=== PATIENT | female | born 1960 | race African-American/Black ===

== ENCOUNTER 2020-01-25 12:34 | Inpatient (IN) | payer OTHER ==
--- NOTE | 2020-01-25 13:11 | BHS.RME ---
Substance Use & Tx History - Substance Use History Alcohol Substance amount: wine coolers on weekends Frequency of use: Daily Substance route: Oral Date of Last Use: 01/21/20 (started age 20) Cocaine- Powder Substance amount: $20 Frequency of use: Daily Substance route: Inhalation (ex: sniffing or snorting) Date of Last Use: 01/21/20 (started age 28) Marijuana/Hashish Substance amount: 1 blunts Frequency of use: Less than 3 times per week Substance route: Smoking Date of Last Use: 11/26/19 (started age 13) Nicotine Substance amount: former smoked stopped age 52 Physical/Psych/Mental Status - Behavior General Behavior: Increased activity (restlessness, agitation) Eye Contact: Normal - Cooperativeness Cooperativeness: Cooperative - Thinking Thought Processes: Tight, Logical, Goal Directed - Physical Health Problems Is patient presently having any pain?: No Does patient presently have any injuries (include location): No Does patient currently have a fever: No Is patient : No CIWA Nausea/Vomitin-Mild Nausea/No Vomiting Muscle Tremors: 3 Anxiety: 3 Agitation: 4-Moderately Restless Paroxysmal Sweats: No Perspiration Orientation: 3-Disoriented Date>2 days Tacttile Disturbances: 1-Very Mild Itch/Numbness Auditory Disturbances: 2-Mild Harshness/Frighten Visual Disturbances: 1-Very Mild Sensitivity Headache: 0-None Present CIWA-Ar Total Score: 18
--- OUTSIDE RECORDS SUMMARY | 2020-01-25 13:18 | XMS ---
:1960 Author Organization [facility] Care Team Providers Name Role Phone Abe Barrett DO Unavailable Unavailable Tomasz, Neelkamal Unavailable Unavailable Jose F Arroyo MD Unavailable Unavailable LEONEL ALEMAN PMHNP Unavailable Unavailable MD Jimenez Unavailable Unavailable ALEK GIMENEZ Unavailable Unavailable [id number] Unavailable Unavailable MD Victor Hugo Unavailable Unavailable Jesus Jacob MD Unavailable Jesus Jacob MD Unavailable Jesus Jacob MD Unavailable MD Jesus Unavailable Unavailable MD Anni Unavailable Unavailable HHCCC Unavailable Unavailable MD Ana Unavailable Unavailable MD Bruce Unavailable Unavailable MD Robyn Unavailable Unavailable DO Cherry Unavailable Unavailable Mickey RICH Unavailable Unavailable MD Saleem Unavailable Unavailable EATON Unavailable Unavailable PAMM Unavailable Unavailable MD Mitch Unavailable Unavailable ZEMMETT@, Unavailable Unavailable MD Nataly Unavailable Unavailable MD Stacey Unavailable Unavailable MD Efrain Unavailable Unavailable MD ERROL Unavailable Unavailable Юлия AGUILAR Unavailable Unavailable MD Frederick Unavailable Unavailable Lynn DO Unavailable Unavailable MD KATHY Unavailable Unavailable MD DISHA Unavailable Unavailable DO Alyssia Unavailable Unavailable Antonino Moura MD Unavailable Unavailable Mickey MONTES Unavailable Unavailable Calderon, DO Unavailable Unavailable MD Victoriano Unavailable Unavailable MD YOCASTA Unavailable Unavailable Leah Mckeon MD Unavailable Unavailable MD Rich Unavailable Unavailable MD Esha Unavailable Unavailable Vivian, DO Unavailable Unavailable CAROL BEBE MORENO Unavailable Unavailable MD FLEX Unavailable Unavailable Luis, C Unavailable Unavailable Luis, C Unavailable Unavailable Story, C Unavailable Unavailable Story, C Unavailable Unavailable MD Chace Unavailable Unavailable SUGAR [place] Unavailable Unavailable KEZIA Unavailable Unavailable MD Renata Unavailable Unavailable MD Stella Unavailable Unavailable Abbi Russ Unavailable Unavailable Skyler Lara MD Unavailable Unavailable MD RACHEL Unavailable Unavailable CAROL Unavailable Unavailable ZUNASSIGNED Unavailable Unavailable Re-disclosure Warning The records that you are about to access may contain information from federally- assisted alcohol or drug abuse programs. If such information is present, then the following federally mandated warning applies: This information has been disclosed to you from records protected by federal confidentiality rules (42 CFR part 2). The federal rules prohibit you from making any further disclosure of this information unless further disclosure is expressly permitted by the written consent of the person to whom it pertains or as otherwise permitted by 42 CFR part 2. A general authorization for the release of medical or other information is NOT sufficient for this purpose. The Federal rules restrict any use of the information to criminally investigate or prosecute any alcohol or drug abuse patient.The records that you are about to access may contain highly sensitive health information, the redisclosure of which is protected by Article 27-F of the [facility] Public Health law. If you continue you may haveaccess to information: Regarding HIV / AIDS; Provided by facilities licensed or operated by the [facility] Office of Mental Health; or Provided by the [facility] Office for People With Developmental Disabilities. If such information is present, then the following [facility] mandated warning applies: This information has been disclosed to you from confidential records which are protected by state law. State law prohibits you from making any further disclosure of this information without the specific written consent of the person to whom it pertains, or as otherwise permitted by law. Any unauthorized further disclosure in violation of state law may result in a fine or longterm sentence or both. A general authorization for the release of medical or other information is NOT sufficient authorization for further disclosure. Allergies and Adverse Reactions Type Description Substance Reaction Status Data Source(s ) Drug allergy No Known Allergies No Known NO KNOWN ALLERG Michael Lewis Allergies [place] Hospital Encounters Encounter Providers Location Date Indications Data Source(s ) Outpatient Attender: 01/20/2020 [facility] ZUNASSIGNEDAdmitter: 02:47:00 PM [facility] ZUNASSIGNEDReferrer: EDT [id number] [email or web address]@, Outpatient Admitter: [id number] 01/20/2020 [facility] Kasandra [facility] [email or web address]@,Referre 12:00:00 AM [facility] r: [id number] EDT [email or web address]@, Inpatient Attender: Annalee 01/18/2020 DKA Michael Mas MDAttender: 10:14:00 AM Hospit al Anat Mckeon EDT - MDAttender: Tay 01/21/2020 Light MDAdmitter: 04:18:00 PM Anat Mckeon EDT DKAbril Patient discharged. Outpatient Attender: JAKE [facility] 01/17/2020 04:08:20 PM I ([facility] EDT [facility]) Patient admitted. Outpatient Attender: LEONEL NDIAYE 01/17/2020 [facility]12[facility] YOUNG [facility]T Hospital Admission cancelled. Disregard status an d admitted date. 01/12/2020 02:44:00 PM EDT [facility] Patient admitted. Emergency Attender: Wu 01/10/2020 12:34:00 HIGH BLO OD SUGAR Michael Douglas MD AM EDT - 01/10/2020 AM.[facility] 05:52:00 AM EDT HIGH BLOOD SUGAR AM.EMPRESS Patient discharged. Emergency Attender: Bozena 01/08/2020 07:07:00 HIGH SUGAR Michael Gay MD AM EDT - 01/08/2020 ARR-AUTO [facility] 12:08:00 PM EDT HIGH SUGAR ARR-AUTO Patient discharged. Emergency Attender: John 2020 HYPERGLYCEMIA AU TO Michael Hutton MD 03:05:00 PM EDT - Hospita l 2020 08:16:00 PM EDT HYPERGLYCEMIA AUTO Patient discharged. Outpatient Attender: BEBE NDIAYE 12/24/2019 10:40:00 AM [facility] REIDAdmitter: ALYSE EDT - 01/14/2020 [facility] CANEVA 03:29:00 PM EDT Patient discharged. Outpatient Attender: BEBEBLACK Parker 12/24/2019 07:01:00 AM [facility] MORENOAdmitter: EDT [facility] BEBE MORENOReferrer: BEBE MORENO Outpatient Attender: CHERYLEElenaLADONNA SENTHIL 12/21/2019 12:17:00 PM [facility] CANEVAAdmitter: CAMILA EDT - 12/21/2019 [facility] DISHA 05:58:00 PM EDT Patient discharged. Emergency Attender: Sharonda Mack 12/21/2019 05:35:00 CAN T WALK [place] MDAttender: Juve Cade AM EDT - 12/21/2019 [facility] DOConsultant: Corrine 11:40:00 AM EDT Rich GARCIA CANT WALK WALK Patient discharged. Inpatient Attender: Tanika Jacob 12/15/2019 05:42:00 PM [facility] MDAttender: Elyssa Ibarra EDT - 12/20/2019 [facility] MDAttender: Дмитрий 12:05:00 PM EDT Tiagaurav PAAttender: Juve Cade DOAdmitter: Дмитрий Russ PAConsultant: Corrine Villanueva MD DKA Patient discharged. Inpatient Attender: Amy 11/30/2019 HEPATIC [place] Ana 01:40:00 PM EDT - ENCEPHALOPATHY Hos pital MDAttender: 12/03/2019 Sharonda Mack 02:15:00 PM EDT MDAdmitter: Amy Perez MD HEPATIC ENCEPHALOPATHY Patient discharged. Inpatient Attender: Param 11/20/2019 09:17:00 DKA [place] RandhawaAttender: Elyssa Ibarra PM EDT - 11/29/2019 [facility] MDAttender: Kamlesh Yanez 10:47:00 AM EDT MDAttender: Jan Balbuena MDAttender: Abe Barrett DOAdmitter: Jan Balbuena MDConsultant: Corrine Villanueva MD DKA Patient discharged. Outpatient Attender: CNR9 HHCCC 11/13/2019 11:35:57 AM [facility] ([facility]T [facility]) Patient admitted. Outpatient Attender: [id number] 11/02/2019 [facility] JEFF, 09:23:00 AM EDT [facility] RAdmitter: [id number] [facility] [place] Юлия AGUILAR Emergency Attender: Wilfrido Zuniga 10/26/2019 HEADACHE W mera Lewis MD 02:23:00 AM EDT [facility] - 10/26/2019 01:07:00 PM EDT HEADACHE EMPRESS Patient discharged. Outpatient Attender: CNR9 CCC 10/12/2019 01:04:05 PM [facility] ([facility]T [facility]) Patient admitted. Outpatient Attender: CNR9 [facility] 07/02/2019 06:26:05 [facility]. [facility]/17[facility] 06:18:00 HYPERGLYCEMI A [place] MATHEWAttender: Asif EST - 06/21/2019 [facility] Jesus MDAttender: 01:34:00 PM EDT Jose F Arroyo MDAdmitter: Asif Lee MD HYPERGLYCEMIA Patient discharged. Outpatient ST 06/01/2019 04:09:00 PM EST - [address] [place] [address] 03:46:00 PM EST Patient discharged. Attender: 05/28/2019 [place] [id number] 04:09:00 PM [facility] [id number] Inpatient Attender: Chloe Gaona 05/25/2019 [facility] MDAttender: Nura Pastrana 06:14:00 PM EST - Hospital MDAttender: Renae Carey 05/28/2019 DOAdmitter: Nura Pastrana 12:48:00 PM EST MDConsultant: Corrine Villanueva MD AMS Patient discharged. Inpatient Attender: ESTRELLITA DICKERSONV-3N 05/21/2019 09:17:00 PM [facility] FAEZAdmitter: ROBBI [facility] - 05/25/2019 [facility] 11:49:00 PM EST Patient discharged. Attender: 05/21/2019 [facility] [id number] 09:17:00 PM [facility] 05/21/2019 [facility] 06:32:00 PM EST - Hospita l 05/21/2019 09:23:00 PM EST Patient discharged. Attender: 05/21/2019 [place] [id number] 06:32:00 PM [place] [id number] [facility] Inpatient Attender: Bhargavi Barrera 05/19/2019 [facility] MDAttender: Tay [place] 02:27:00 PM EST Hospital DOAdmitter: Asif Lee - 05/21/2019 MDConsultant: Corrine Villanueva MD 06:06:00 PM EST SYNCOPE Patient discharged. Inpatient Attender: ESTRELLITA NDIAYE-3N 05/18/2019 01:07:00 PM [facility] FAEZAdmitter: [facility] - 05/19/2019 Hospital Luis 11:12:00 PM EST Patient discharged. Attender: 05/18/2019 [place] [id number] 01:07:00 PM [facility]_6766 Outpatient [facility] 05/18/2019 [facility] 12:56:00 PM EST - Hospita l 05/18/2019 04:24:00 PM EST Patient discharged. Attender: 05/18/2019 [place] [id number] 12:56:[address] Emergency Attender: Jose F Arroyo MDAttender: 05/17/2019 [facility] Wilfrido Zuniga MDAttender: Aydin 07:04:00 PM [facility] Hospital Coddett MDConsultant: Jose F Arroyo - 0 AM.EMPR MDConsultant: Corrine Villanueva MD 12:57:00 PM EST SI AM.EMPR Patient discharged. Outpatient Attender: LILIA [facility] 05/17/2019 04:49:00 S judie [facility]ek WASSERMANAdmitter: ABBE PM EST - 05/18/2019 Hospital EATON 02:29:00 PM EST Patient discharged. Attender: 05/17/2019 [facility] [id number] 04:49:00 PM [facility]_6766 Outpatient Attender: GIL ST 05/10/2019 [facility] TRESdmitter: ALETHA MAST 02:07:00 PM EST - Hospital 05/10/2019 07:38:00 PM EST Patient discharged. Attender: 05/10/2019 [facility] [id number] 02:07:00 PM [place] [id number] [facility] Emergency Attender: Black Bailey DO 04/29/2019 LOW B LOOD Michael Lewis 11:42:00 AM EST [facility] Hospital - 04/29/2019 AUTO 04:20:00 PM EST LOW BLOOD SUGAR AUTO Patient discharged. Outpatient Attender: JA[facility] 04/23/2019 03:05:35 PM [facility] ([facility]) Patient admitted. Emergency Attender: Francy Ingram 04/16/2019 10:32:00 HEADACH Savannah Lewis MD AM EST - 04/16/2019 [facility]R-WI [facility] 02:20:00 PM EST HEADACHE ARR-WI Patient discharged. Emergency Attender: 04/06/2019 HX OF DIABETES/WEAKNESS W mera Mack MD 09:27:00 PM EST - (AUTO) H ospital 04/07/2019 02:43:00 AM EST HX OF DIABETES/WEAKNESS (AUTO) Patient discharged. Emergency Attender: Nika 03/09/2019 03:30:00 ABNORMAL LAB S Michael [place] PM EST - 03/09/2019 ([place]) [facility] 09:45:00 PM EST ABNORMAL LABS ([place]) Patient discharged. Inpatient Attender: ISAAK DICKERSONV-2S 03/03/2019 07:17:00 PM [facility] SOTOAdmitter: ALYSE EST - 03/08/2019 [facility] BECKI 11:13:00 PM EST Patient discharged. Attender: 03/03/2019 [place] [id number] 07:17:00 PM [facility]_6766 Outpatient STV 03/03/2019 [facility] 07:02:00 PM EST - Hospita 03/03/2019 12:59:00 PM EST Patient discharged. Attender: 03/03/2019 [place] [id number] 07:02:00 PM [place] [address] Inpatient Attender: Chloe Lernercara 03/01/2019 AMS [place] MDAttender: Mary Lara MDAttender: 07:07:[address] [facility] Gunnar Carlson MDAdmitter: Mary Lara 03/03/2019 MDConsultant: Corrine Villanueva MD 06:40:00 PM EST [facility] Patient discharged. Inpatient Attender: ISAAK DICKERSON-2S 02/15/2019 07:13:00 PM [facility] SOTOAdmitter: HOLLY MALONEYB [facility] 03/01/2019 [facility] 08:31:00 AM EST Patient discharged. Attender: 02/15/2019 [place] [id number] 07:13:00 PM [place] [address] Outpatient [facility] 02/15/2019 [facility] 06:56:00 PM EST - Hospita 02/15/2019 09:26:00 PM EST Patient discharged. Attender: 02/15/2019 [facility] [id number] 06:56:[address] Emergency Attender: Mariano Monge 02/14/2019 DIABETIC/ [place] MDAttender: Sharonda Mack 10:27:00 AM EST [facility] Hospital MDAttender: Jose F Royal 02/15/2019 MEDS - W I MDConsultant: Corrine Villanueva MD 05:03:00 PM EST DIABETIC/NEEDS MEDS - [place] Patient discharged. Outpatient 01/18/2019 12:27:21 PM EDT [facility] ([facility]) Patient admitted. Emergency Attender: Black 08/22/2018 DIABETES Michael Bailey 05:08:00 PM EDT - (AM.EMPRESS) [facility] DOAttender: Nehemias 08/22/2018 [place] CHRISTIE 09:16:00 PM EDT DIABETES (AM.EMPRESS) P 10/08/2017 02:42:00 PM EDT FALL/LEG PAIN ARR- [facility] FALL/LEG PAIN ARR- P 04/25/2009 01:14:00 PM EST RT SIDE C OTTON STUCK IN EAR [facility] ARR-WALK RT SIDE COTTON STUCK IN EAR ARR-W ALK Functional Status Medications Medication Brand Start Product Dose Route Administrative Pharmacy St atus Indications Reaction Description Data Name Date Form Instructions Instructions Source(s) Lactulose Lactul 01/20/ SOLUTION 10 g ORAL active [facility] 667 MG/ML ose 2019 [facility] Oral 01:56: Hospital Solution 00 PM EDT 3 ML Insuli 01/20/ INJECTIO 9 SUBCUT active [facility]i [facility] Insulin n 2020 N ANEOUS [facility] Lispro 100 Human 01:56: Hospit al UNT/ML Pen Lispro 00 PM Injector EDT [Humalog] Insulin Human Lispro 3 ML Insuli 01/20/ PRE-FILL 25 SUBCUT active [facility]i te Insulin n 2019 ED PEN ANEOUS [facility] Glargine Glargi 01:56: SYRINGE Hosp ital 100 UNT/ML ne 00 PM Pen EDT Injector [Lantus] aripiprazol ARIPip ORAL complet ARIPip razole [facility] 5 MG Oral razole 2019 Table ed - 5 MG ORA L [facility] Tablet - 5 MG 12:00: t Tablet Hospita l ORAL 00 AM Tablet EDT Mirtazapine Mirtaz 0.5 ORAL complet Mirtaz apine [facility] 15 MG Oral apine 2019 Table ed - 15 MG ORAL [facility] Tablet - 15 12:00: t Tablet Hospital MG 00 AM ORAL EDT Tablet aripiprazol ARIPip 1 ORAL complet ARIPip razole [facility] 5 MG Oral razole 2019 Table ed - 5 MG ORA L [facility] Tablet - 5 MG 12:00: t Tablet Hospita l ORAL 00 AM Tablet EDT Mirtazapine Mirtaz 12/26/ 0.5 ORAL complet Mirtaz apine Saint 15 MG Oral apine 2019 Table ed - 15 MG ORAL [facility] Tablet - 15 12:00: t Tablet Hospital MG 00 AM ORAL EDT Tablet 3 ML Insuli 12/19/ INJECTIO 9 SUBCUT active Whi te Insulin n 2020 N ANEOUS [facility] Lispro 100 Human 09:46: Hospit al UNT/ML Pen Lispro 00 AM Injector EDT [Humalog] Insulin Human Lispro 3 ML Insuli 12/19/ PRE-FILL 25 SUBCUT active Whi te Insulin n 2020 ED PEN ANEOUS [facility] Glargine Glargi 09:46: SYRINGE Hosp ital 100 UNT/ML ne 00 AM Pen EDT Injector [Lantus] 3 ML Insuli 12/19/ INJECTIO 9 SUBCUT complet Wh ite Insulin n 2020 N ANEOUS ed [facility] Lispro 100 Human 09:46: Hospit al UNT/ML Pen Lispro 00 AM Injector EDT [Humalog] Insulin Human Lispro 3 ML Insuli 12/19/ PRE-FILL 25 SUBCUT active Whi te Insulin n 2020 ED PEN ANEOUS [facility] Glargine Glargi 09:46: SYRINGE Hosp ital 100 UNT/ML ne 00 AM Pen EDT Injector [Lantus] 3 ML Insuli 12/19/ PRE-FILL 25 SUBCUT complet Wh ite Insulin n 2020 ED PEN ANEOUS ed [facility] Glargine Glargi 09:46: SYRINGE Hosp ital 100 UNT/ML ne 00 AM Pen EDT Injector [Lantus] 3 ML Insuli 12/19/ INJECTIO 9 SUBCUT active Whi te Insulin n 2020 N ANEOUS [facility] Lispro 100 Human 09:46: Hospit al UNT/ML Pen Lispro 00 AM Injector EDT [Humalog] Insulin Human Lispro 3 ML Insuli 12/19/ PRE-FILL 25 SUBCUT active Whi te Insulin n 2020 ED PEN ANEOUS [facility] Glargine Glargi 09:46: SYRINGE Hosp ital 100 UNT/ML ne 00 AM Pen EDT Injector [Lantus] 3 ML Insuli 12/19/ PRE-FILL 25 SUBCUT active Whi te Insulin n 2020 ED PEN ANEOUS [facility] Glargine Glargi 09:46: SYRINGE Hosp ital 100 UNT/ML ne 00 AM Pen EDT Injector [Lantus] 3 ML Insuli 12/19/ INJECTIO 9 SUBCUT active Whi te Insulin n 2020 N ANEOUS [facility] Lispro 100 Human 09:46: Hospit al UNT/ML Pen Lispro 00 AM Injector EDT [Humalog] Insulin Human Lispro 3 ML Insuli 12/19/ INJECTIO 9 SUBCUT active Whi te Insulin n 2020 N ANEOUS [facility] Lispro 100 Human 09:46: Hospit al UNT/ML Pen Lispro 00 AM Injector EDT [Humalog] Insulin Human Lispro 3 ML Insuli 12/19/ PRE-FILL 25 SUBCUT active Whi te Insulin n 2020 ED PEN ANEOUS [facility] Glargine Glargi 09:46: SYRINGE Hosp ital 100 UNT/ML ne 00 AM Pen EDT Injector [Lantus] 3 ML Insuli 12/19/ INJECTIO 9 SUBCUT active Whi te Insulin n 2020 N ANEOUS [facility] Lispro 100 Human 09:46: Hospit al UNT/ML Pen Lispro 00 AM Injector EDT [Humalog] Insulin Human Lispro 3 ML Insuli 12/19/ PRE-FILL 25 SUBCUT complet Wh ite Insulin n 2020 ED PEN ANEOUS ed [facility] Glargine Glargi 09:39: SYRINGE Hosp ital 100 UNT/ML ne 00 AM Pen EDT Injector [Lantus] 3 ML Insuli 12/19/ PRE-FILL 25 SUBCUT complet Wh ite Insulin n 2020 ED PEN ANEOUS ed [facility] Glargine Glargi 09:39: SYRINGE Hosp ital 100 UNT/ML ne 00 AM Pen EDT Injector [Lantus] 3 ML Insuli 12/19/ INJECTIO 9 SUBCUT complet Wh ite Insulin n 2020 N ANEOUS ed [facility] Lispro 100 Human 09:39: Hospit al UNT/ML Pen Lispro 00 AM Injector EDT [Humalog] Insulin Human Lispro 3 ML Insuli 12/19/ INJECTIO 9 SUBCUT complet Wh ite Insulin n 2020 N ANEOUS ed [facility] Lispro 100 Human 09:39: Hospit al UNT/ML Pen Lispro 00 AM Injector EDT [Humalog] Insulin Human Lispro 3 ML Insuli 12/19/ INJECTIO 9 SUBCUT complet Wh ite Insulin n 2020 N ANEOUS ed [facility] Lispro 100 Human 09:39: Hospit al UNT/ML Pen Lispro 00 AM Injector EDT [Humalog] Insulin Human Lispro 3 ML Insuli 12/19/ PRE-FILL 25 SUBCUT complet Wh ite Insulin n 2020 ED PEN ANEOUS ed [facility] Glargine Glargi 09:39: SYRINGE Hosp ital 100 UNT/ML ne 00 AM Pen EDT Injector [Lantus] 3 ML Insuli 12/19/ PRE-FILL 25 SUBCUT complet Wh ite Insulin n 2020 ED PEN ANEOUS ed [facility] Glargine Glargi 09:39: SYRINGE Hosp ital 100 UNT/ML ne 00 AM Pen EDT Injector [Lantus] 3 ML Insuli 12/19/ INJECTIO 9 SUBCUT complet Wh ite Insulin n 2020 N ANEOUS ed [facility] Lispro 100 Human 09:39: Hospit al UNT/ML Pen Lispro 00 AM Injector EDT [Humalog] Insulin Human Lispro 3 ML Insuli 12/19/ PRE-FILL 25 SUBCUT complet Wh ite Insulin n 2020 ED PEN ANEOUS ed [facility] Glargine Glargi 09:39: SYRINGE Hosp ital 100 UNT/ML ne 00 AM Pen EDT Injector [Lantus] 3 ML Insuli 12/19/ INJECTIO 9 SUBCUT complet Wh ite Insulin n 2020 N ANEOUS ed [facility] Lispro 100 Human 09:39: Hospit al UNT/ML Pen Lispro 00 AM Injector EDT [Humalog] Insulin Human Lispro 3 ML Insuli 12/19/ PRE-FILL 25 SUBCUT complet Wh ite Insulin n 2020 ED PEN ANEOUS ed [facility] Glargine Glargi 09:39: SYRINGE Hosp ital 100 UNT/ML ne 00 AM Pen EDT Injector [Lantus] 3 ML Insuli 12/19/ INJECTIO 9 SUBCUT complet Wh ite Insulin n 2020 N ANEOUS ed [facility] Lispro 100 Human 09:39: Hospit al UNT/ML Pen Lispro 00 AM Injector EDT [Humalog] Insulin Human Lispro Sertraline Sertra 11/28/ TABLET 2 ORAL complet [facility] 50 MG Oral line 2019 {Caps ed [facility] Tablet Hcl 10:26: ule} Hospital [Zoloft] 00 AM Sertraline EDT Hcl Sertraline Sertra 11/28/ TABLET 2 ORAL complet [facility] 50 MG Oral line 2019 {Caps ed [facility] Tablet Hcl 10:26: ule} Hospital [Zoloft] 00 AM Sertraline EDT Hcl Sertraline Sertra 11/28/ TABLET 2 ORAL complet [facility] 50 MG Oral line 2019 {Caps ed [facility] Tablet Hcl 10:26: ule} Hospital [Zoloft] 00 AM Sertraline EDT Hcl Sertraline Sertra 08/17/ TABLET 2 ORAL active W mera 50 MG Oral line 2020 {Caps [facility] Tablet Hcl 10:26: ule} Hospital [Zoloft] 00 AM Sertraline EDT Hcl Sertraline Sertra 08/17/ TABLET 2 ORAL complet [facility] 50 MG Oral line 2020 {Caps ed [facility] Tablet Hcl 10:26: ule} Hospital [Zoloft] 00 AM Sertraline EDT Hcl Sertraline Sertra 08/17/ TABLET 2 ORAL complet [facility] 50 MG Oral line 2019 {Caps ed [facility] Tablet Hcl 10:26: ule} Hospital [Zoloft] 00 AM Sertraline EDT Hcl Sertraline Sertra 08/17/ TABLET 2 ORAL complet [facility] 50 MG Oral line 2019 {Caps ed [facility] Tablet Hcl 10:26: ule} [facility] [Zoloft] 00 AM Sertraline EDT Hcl Sertraline Sertra 08/17/ TABLET 2 ORAL complet [facility] 50 MG Oral line 2019 {Caps ed [facility] Tablet Hcl 10:26: ule} [facility] [Zoloft] 00 AM Sertraline EDT Hcl Omeprazole Omepra 08/14/ TABLET, 20 mg ORAL active [facility] 20 MG zole 2020 DELAYED [facility] Delayed 03:23: RELEASE Hospita l Release 00 PM Oral Tablet EDT Omeprazole Omepra 08/14/ TABLET, 20 mg ORAL active [facility] 20 MG zole 2020 DELAYED [facility] Delayed 03:23: RELEASE Hospita l Release 00 PM Oral Tablet EDT Omeprazole Omepra 08/14/ TABLET, 20 mg ORAL active [facility] 20 MG zole 2020 DELAYED [facility] Delayed 03:23: RELEASE Hospita [facility] Release 00 PM Oral Tablet EDT Omeprazole Omepra 08/14/ TABLET, 20 mg ORAL active [facility] 20 MG zole 2020 DELAYED [facility] Delayed 03:23: RELEASE Hospita l Release 00 PM Oral Tablet EDT Omeprazole Omepra 08/14/ TABLET, 20 mg ORAL active [facility] 20 MG zole 2020 DELAYED [facility] Delayed 03:23: RELEASE Hospita l Release 00 PM Oral Tablet EDT Omeprazole Omepra 08/14/ TABLET, 20 mg ORAL active [facility] 20 MG zole 2020 DELAYED [facility] Delayed 03:23: RELEASE Hospita l Release 00 PM Oral Tablet EDT Omeprazole Omepra 08/14/ TABLET, 20 mg ORAL active [facility] 20 MG zole 2020 DELAYED [facility] Delayed 03:23: RELEASE Hospita l Release 00 PM Oral Tablet EDT Omeprazole Omepra 11/25/ TABLET, 20 mg ORAL active [facility] 20 MG zole 2019 DELAYED [facility] Delayed 03:23: RELEASE Hospita l Release 00 PM Oral Tablet EDT Sertraline Sertra 11/25/ TABLET 1 ORAL active W mera 100 MG Oral line 2019 {Caps [facility] Tablet Hcl 02:36: ule} Hospital [Zoloft] 00 PM Sertraline EDT Hcl Insulin Insuli 11/25/ UNSPECIF 16 SUBCUT active [facility] Glargine n 2019 IED ANEOUS [facility] 100 UNT/ML Glargi 02:36: Hospi [facility] Injectable ne 00 PM Solution EDT [Lantus] Sertraline Sertra 11/25/ TABLET 1 ORAL active W mera 100 MG Oral line 2019 {Caps [facility] Tablet Hcl 02:36: ule} Hospital [Zoloft] 00 PM Sertraline EDT Hcl Insulin Insuli 11/25/ UNSPECIF 16 SUBCUT complet [facility] Glargine n 2019 IED ANEOUS ed [facility] 100 UNT/ML Glargi 02:36: Hospi [facility] Injectable ne 00 PM Solution EDT [Lantus] Risperidone Risper 11/25/ TABLET 0.25 ORAL active [facility] 0.5 MG Oral idone 2020 mg [facility] Tablet 02:36: Hospital 00 PM EDT Sertraline Sertra 11/25/ TABLET 1 ORAL active W mera 100 MG Oral line 2019 {Caps [facility] Tablet Hcl 02:36: ule} Hospital [Zoloft] 00 PM Sertraline EDT Hcl Insulin Insuli 11/25/ UNSPECIF 16 SUBCUT active [facility] Glargine n 2019 IED ANEOUS [facility] 100 UNT/ML Glargi 02:36: Hospi [facility] Injectable ne 00 PM Solution EDT [Lantus] Insulin Insuli 11/25/ UNSPECIF 16 SUBCUT complet [facility] Glargine n 2019 IED ANEOUS ed [facility] 100 UNT/ML Glargi 02:36: Hospi [facility] Injectable ne 00 PM Solution EDT [Lantus] Insulin Insuli 11/25/ UNSPECIF 16 SUBCUT complet [facility] Glargine n 2019 IED ANEOUS ed [facility] 100 UNT/ML Glargi 02:36: Hospi [facility] Injectable ne 00 PM Solution EDT [Lantus] Insulin Insuli 11/25/ UNSPECIF 7 SUBCUT active [facility] Lispro 100 n 2019 IED ANEOUS [facility] UNT/ML Human 02:36: Hospital Injectable Lispro 00 PM Solution EDT [Humalog] Insulin Human Lispro Sertraline Sertra 08/14/ TABLET 1 ORAL active W mera 100 MG Oral line 2019 {Caps [facility] Tablet Hcl 02:36: ule} [facility] [Zoloft] 00 PM Sertraline EDT Hcl Insulin Insuli 11/25/ UNSPECIF 16 SUBCUT complet [facility] Glargine n 2019 IED ANEOUS [facility] 100 UNT/ML Glargi 02:36: [facility] Injectable ne 00 PM Solution EDT [Lantus] Risperidone Risper 0814/ TABLET 0.25 ORAL active [facility] 0.5 MG Oral idone 2020 mg [facility] Tablet 02:36: [facility] 00 PM EDT Sertraline Sertra 0814/ TABLET 1 ORAL active W [facility]era 100 MG Oral line 2019 {Caps [facility]:36[facility] EDT Hcl Insulin Insuli 11/25/ UNSPECIF 7 SUBCUT complet [facility] Lispro 100 n 2019 IED ANEOUS ed [facility] UNT/ML Human 02:36: Hospital Injectable Lispro 00 PM Solution EDT [Humalog] Insulin Human Lispro Insulin Insuli 11/25/ UNSPECIF 7 SUBCUT active [facility] Lispro 100 n 2019 IED ANEOUS [facility] UNT/ML [facility] 02:36: [facility] Injectable Lispro 00 PM Solution EDT [Humalog] Insulin Human Lispro Risperidone Risper 08/14/ TABLET 0.25 ORAL active [facility] 0.5 MG Oral idone 2020 mg [facility] 02:36: [facility] 00 PM EDT Sertraline Sertra 0814/ TABLET 1 ORAL active [facility] 100 MG Oral line 2020 {Caps [facility] Tablet Hcl 02:36: ule} [facility] [Zoloft] 00 PM Sertraline EDT Hcl Risperidone Risper 08/14/ TABLET 0.25 ORAL active White 0.5 MG Oral idone 2020 mg [facility]t 02:36: [facility] 00 PM EDT Risperidone Risper 08/14/ TABLET 0.25 ORAL active [facility] 0.5 MG Oral idone 2020 mg [facility]t 02:36: [facility] 00 PM EDT Risperidone Risper 08/14/ TABLET 0.25 ORAL active [facility] 0.5 MG Oral idone 2020 mg [facility] Tablet 02:36: [facility] 00 PM EDT Sertraline Sertra 11/25/ TABLET 1 ORAL active [facility] 100 MG Oral line 2019 {Caps [facility] Tablet Hcl 02:36: ule} [facility] [Zoloft] 00 PM Sertraline EDT Hcl Risperidone Risper 11/25/ TABLET 0.25 ORAL active White 0.5 MG Oral idone 2020 mg [facility] Tablet 02:36: [facility] 00 PM EDT Insulin Insuli 11/25/ UNSPECIF 7 SUBCUT complet [facility] Lispro 100 n 2019 IED ANEOUS ed [facility] UNT/ML [facility] 02:36: [facility] Injectable Lispro 00 PM Solution EDT [Humalog] Insulin Human Lispro Risperidone Risper 11/25/ TABLET 0.25 ORAL active [facility] 0.5 MG Oral idone 2020 mg [facility] Tablet 02:36: [facility] 00 PM EDT Insulin Insuli 11/25/ UNSPECIF 16 SUBCUT complet [facility] Glargine n 2019 IED ANEOUS ed [facility] 100 UNT/ML Glargi 02:36: [facility] Injectable ne 00 PM Solution EDT [Lantus] Insulin Insuli 11/25/ UNSPECIF 7 SUBCUT complet [facility] Lispro 100 n 2019 IED ANEOUS ed [facility] UNT/ML [facility] 02:36: [facility] Injectable Lispro 00 PM Solution EDT [Humalog] Insulin Human Lispro Insulin Insuli 11/25/ UNSPECIF 7 SUBCUT complet [facility] Lispro 100 n 2019 IED ANEOUS ed [facility] UNT/ML [facility] 02:36: [facility] Injectable Lispro 00 PM Solution EDT [Humalog] Insulin Human Lispro Insulin Insuli 11/25/ UNSPECIF 7 SUBCUT complet [facility] Lispro 100 n 2019 IED ANEOUS ed [facility] UNT/ML [facility] 02:36: [facility] Injectable Lispro 00 PM Solution EDT [Humalog] Insulin Human Lispro Sertraline Sertra 11/25/ TABLET 1 ORAL active [facility] 100 MG Oral line 2019 {Caps [facility] Tablet Hcl 02:36: ule} [facility] [Zoloft] 00 PM Sertraline EDT Hcl Insulin Insuli 11/25/ UNSPECIF 7 SUBCUT complet [facility] Lispro 100 n 2019 IED ANEOUS ed [facility] UNT/ML Human 02:36: [facility] Injectable Lispro 00 PM Solution EDT [Humalog] Insulin Human Lispro Insulin Insuli 11/25/ UNSPECIF 16 SUBCUT complet [facility] Glargine n 2019 IED ANEOUS ed [facility] 100 UNT/ML Glargi 02:36: [facility] Injectable ne 00 PM Solution EDT [Lantus] Amoxicillin Amoxic 07/14/ TABLET 1 ORAL complet [facility] 875 MG / ill2019 {Caps ed [facility] Clavulanate Clavun 06:12: ule} Hosp ital 125 MG Oral ate 00 AM Tablet EDT [Augmentin] 5 Amoxicillin Tablet /Clavunate * 875-125 Tablet* Amoxicillin Amoxic 07/14/ TABLET 1 ORAL complet [facility] 875 MG / ill2019 {Caps ed [facility] Clavulanate Clavun 06:12: ule} [facility]osp ital 125 MG Oral ate 00 AM Tablet EDT [Augmentin] 5 Amoxicillin Tablet /Clavunate * 875-125 Tablet* Amoxicillin Amoxic 07/14/ TABLET 1 ORAL complet [facility] 875 MG / 2019 {Caps ed [facility] Clavulanate Clavun 06:12: ule} [facility]osp ital 125 MG Oral ate 00 AM Tablet EDT [Augmentin] 5 Amoxicillin Tablet /Clavunate * 875-125 Tablet* Amoxicillin Amoxic 07/14/ TABLET 1 ORAL complet [facility] 875 MG / 2019 {Caps ed [facility] Clavulanate Clavun 06:12: ule} [facility]osp ital 125 MG Oral ate 00 AM Tablet 5-12 EDT [Augmentin] 5 Amoxicillin Tablet /Clavunate * 875-125 Tablet* Amoxicillin Amoxic 07/14/ TABLET 1 ORAL complet [facility] 875 MG / ill2019 {Caps ed [facility] Clavulanate Clavun 06:12: ule} [facility]osp ital 125 MG Oral ate 00 AM Tablet 12 EDT [Augmentin] 5 Amoxicillin Tablet /Clavunate * 875-125 Tablet* Amoxicillin Amoxic 07/14/ TABLET 1 ORAL complet [facility] 875 MG / ill2019 {Caps ed [facility] Clavulanate Clavun 06:12: ule} [facility]osp [facility] 125 MG Oral ate 00 AM Tablet 5-12 EDT [Augmentin] 5 Amoxicillin Tablet /Clavunate * 875-125 Tablet* Amoxicillin Amoxic 07/14/ TABLET 1 ORAL complet [facility] 875 MG / ill2019 {Caps ed [facility] Clavulanate Clavun 06:12: ule} [facility]osp [facility] 125 MG Oral ate 00 AM Tablet 875-12 EDT [Augmentin] 5 Amoxicillin Tablet /Clavunate * 875-125 Tablet* Amoxicillin Amoxic 07/14/ TABLET 1 ORAL complet [facility] 875 MG / illin/ 2019 {Caps ed [facility] Clavulanate Clavun 06:12: ule} [facility]osp [facility] 125 MG Oral ate 00 AM Tablet 875-12 EDT [Augmentin] 5 Amoxicillin Tablet /Clavunate * 875-125 Tablet* Amoxicillin Amoxic 07/14/ TABLET 1 ORAL active [facility] 875 MG / illin/ 2019 {Caps [facility] Clavulanate Clavun 06:12: ule} [facility]osp ital 125 MG Oral ate 00 AM Tablet 875-12 EDT [Augmentin] 5 Amoxicillin Tablet /Clavunate * 875-125 Tablet* Mirtazapine Mirtaz 05/27/ TABLET 15 mg ORAL complet [facility] 15 MG Oral apine 2019 ed [facility]t 02:47: [facility] [Remeron] 00 PM EST aripiprazol Aripip 05/27/ TABLET 10 mg ORAL complet [facility] e 10 MG razole 2019 ed [facility] Oral Tablet 02:47: Hospit al [Abilify] 00 PM Aripiprazol EST e aripiprazol Aripip 05/27/ TABLET 10 mg ORAL complet [facility] e 10 MG razole 2019 ed [facility] Oral Tablet 02:47: Hospit al [Abilify] 00 PM Aripiprazol EST e Sertraline Sertra 05/27/ TABLET 1 ORAL active W mera 50 MG Oral line 2019 {Caps [facility] Tablet Hcl 02:47: ule} [facility] [Zoloft] 00 PM Sertraline EST Hcl Lactulose Lactul 05/27/ SOLUTION 10 g ORAL active [facility] 667 MG/ML ose 2020 [facility] Oral 02:47: [facility] Solution 00 PM EST Lactulose Lactul 05/27/ SOLUTION 10 g ORAL active [facility] 667 MG/ML ose 2019 [facility] Oral 02:47: [facility] Solution 00 PM EST aripiprazol Aripip 05/27/ TABLET 10 mg ORAL complet [facility] e 10 MG razole 2019 ed [facility] Oral Tablet 02:47: Hospit al [Abilify] 00 PM Aripiprazol EST e Sertraline Sertra 05/27/ TABLET 1 ORAL active W mera 50 MG Oral line 2019 {Caps [facility] Tablet Hcl 02:47: ule} [facility] [Zoloft] 00 PM Sertraline EST Hcl Sertraline Sertra 05/27/ TABLET 1 ORAL complet [facility] 50 MG Oral line 2019 {Caps ed [facility] Tablet Hcl 02:47: ule} [facility] [Zoloft] 00 PM Sertraline EST Hcl Sertraline Sertra 05/27/ TABLET 1 ORAL complet [facility] 50 MG Oral line 2019 {[facility] ed [facility] Tablet Hcl 02:47: ule} [facility] [Zoloft] 00 PM Sertraline EST Hcl Lactulose Lactul 05/27/ SOLUTION 10 g ORAL active [facility] 667 MG/ML ose 2020 [facility] Oral 02:47: [facility] Solution 00 PM EST Sertraline Sertra 05/27/ TABLET 1 ORAL complet [facility] 50 MG Oral line 2019 {[facility] ed [facility] Tablet Hcl 02:47: ule} Hospital [Zoloft] 00 PM Sertraline EST Hcl Lactulose Lactul 05/27/ SOLUTION 10 g ORAL active [facility] 667 MG/ML ose 2020 [facility] Oral 02:47: [facility] Solution 00 PM EST Mirtazapine Mirtaz 05/27/ TABLET 15 mg ORAL complet [facility] 15 MG Oral apine 2020 ed [facility] Tablet 02:47: [facility] [Remeron] 00 PM EST Mirtazapine Mirtaz /13/ TABLET 15 mg ORAL complet [facility] 15 MG Oral apine 2020 ed [facility] Tablet 02:47: [facility] [Remeron] 00 PM EST Mirtazapine Mirtaz /13/ TABLET 15 mg ORAL complet [facility] 15 MG Oral apine 2020 ed [facility] Tablet 02:47: [facility] [Remeron] 00 PM EST Lactulose Lactul 05/27/ SOLUTION 10 g ORAL complet [facility] 667 MG/ML ose 2020 ed [facility] Oral 02:47: [facility] Solution 00 PM EST Lactulose Lactul /13/ SOLUTION 10 g ORAL active [facility] 667 MG/ML ose 2020 [facility] Oral 02:47: [facility] Solution 00 PM EST Mirtazapine Mirtaz /13/ TABLET 15 mg ORAL complet [facility] 15 MG Oral apine 2020 ed [facility]t 02:47: [facility] [Remeron] 00 PM EST Lactulose Lactul /13/ SOLUTION 10 g ORAL active [facility] 667 MG/ML ose 2020 [facility] Oral 02:47: [facility] Solution 00 PM EST Mirtazapine Mirtaz 05/27/ TABLET 15 mg ORAL complet [facility] 15 MG Oral apine 2020 ed [facility]t 02:47: [facility] [Remeron] 00 PM EST Mirtazapine Mirtaz 05/27/ TABLET 15 mg ORAL active [facility] 15 MG Oral apine 2020 [facility]t 02:47: [facility] [Remeron] 00 PM EST Mirtazapine Mirtaz 05/27/ TABLET 15 mg ORAL complet [facility] 15 MG Oral apine 2020 ed [facility] Tablet 02:47: [facility] [Remeron] 00 PM EST aripiprazol Aripip 05/27/ TABLET 10 mg ORAL complet [facility] e 10 MG razole 2019 ed [facility] Tablet 02:47: Hospit al [Abilify] 00 PM Aripiprazol EST e aripiprazol Aripip 05/27/ TABLET 10 mg ORAL complet [facility] e 10 MG razole 2019 ed [facility] Tablet 02:47: Hospit al [Abilify] 00 PM Aripiprazol EST e Sertraline Sertra 05/27/ TABLET 1 ORAL complet [facility] 50 MG Oral line 2019 {Caps ed [facility] Tablet Hcl 02:47: ule} [facility] [Zoloft] 00 PM Sertraline EST Hcl Sertraline Sertra 05/27/ TABLET 1 ORAL complet [facility] 50 MG Oral line 2019 {Caps ed [facility] Tablet Hcl 02:47: ule} [facility] [Zoloft] 00 PM Sertraline EST Hcl aripiprazol Aripip 05/27/ TABLET 10 mg ORAL complet [facility] e 10 MG razole 2019 ed [facility] Oral Tablet 02:47: Hospit al [Abilify] 00 PM Aripiprazol EST e Lactulose Lactul 05/27/ SOLUTION 10 g ORAL active [facility] 667 MG/ML ose 2020 [facility] Oral 02:47: [facility] Solution 00 PM EST Sertraline Sertra 05/27/ TABLET 1 ORAL active W mera 50 MG Oral line 2019 {Caps [facility] Tablet Hcl 02:47: ule} Hospital [Zoloft] 00 PM Sertraline EST Hcl Lactulose Lactul 05/27/ SOLUTION 10 g ORAL active [facility] 667 MG/ML ose 2020 [facility] Oral 02:47: [facility] Solution 00 PM EST Mirtazapine Mirtaz 05/27/ TABLET 15 mg ORAL complet [facility] 15 MG Oral apine 2020 ed [facility] Tablet 02:47: [facility] [Remeron] 00 PM EST Lactulose Lactul 05/27/ SOLUTION 10 g ORAL active [facility] 667 MG/ML ose 2020 [facility] Oral 02:47: [facility] Solution 00 PM EST aripiprazol Aripip 05/27/ TABLET 10 mg ORAL active [facility] e 10 MG razole 2019 [facility] Oral Tablet 02:47: Hospit al [Abilify] 00 PM Aripiprazol EST e Sertraline Sertra 05/27/ TABLET 1 ORAL complet [facility] 50 MG Oral line 2019 {Caps ed [facility] Tablet Hcl 02:47: ule} Hospital [Zoloft] 00 PM Sertraline EST Hcl aripiprazol Aripip 05/27/ TABLET 10 mg ORAL complet [facility] e 10 MG razole 2019 ed [facility] Oral Tablet 02:47: Hospit al [Abilify] 00 PM Aripiprazol EST e Mirtazapine Mirtaz 05/27/ TABLET 15 mg ORAL complet [facility] 15 MG Oral apine 2019 ed [facility] Tablet 02:47: [facility] [Remeron] 00 PM EST Sertraline Sertra 05/27/ TABLET 1 ORAL complet [facility] 50 MG Oral line 2019 {[facility] ed [facility] Tablet Hcl 02:47: ule} Hospital [Zoloft] 00 PM Sertraline EST Hcl aripiprazol Aripip 05/27/ TABLET 10 mg ORAL complet [facility] e 10 MG razole 2019 ed [facility] Oral Tablet 02:47: Hospit al [Abilify] 00 PM Aripiprazol EST e aripiprazol Aripip 05/27/ TABLET 10 mg ORAL complet [facility] e 10 MG razole 2019 ed [facility] Oral Tablet 02:47: Hospit al [Abilify] 00 PM Aripiprazol EST e Sertraline Sertra 05/27/ TABLET 1 ORAL complet [facility] 50 MG Oral line 2019 {Caps ed [facility] Tablet Hcl 02:47: ule} Hospital [Zoloft] 00 PM Sertraline EST Hcl Mirtazapine Mirtaz 05/27/ TABLET 15 mg ORAL complet [facility] 15 MG Oral apine 2020 ed [facility] Tablet 02:47: [facility] [Remeron] 00 PM EST Lactulose Lactul 05/27/ SOLUTION 10 g ORAL active [facility] 667 MG/ML ose 2020 [facility] Oral 02:47: [facility] Solution 00 PM EST aripiprazol Aripip 02// TABLET 10 mg ORAL complet [facility] e 10 MG razole 2020 ed [facility] Tablet 02:47: Hospit al [Abilify] 00 PM Aripiprazol EST e Famotidine Famoti 05/21/ TABLET 20 mg ORAL complet [facility] 20 MG Oral dine 2020 ed [facility] Tablet 01:26: Hospital [Pepcid] 00 PM EST Famotidine Famoti 05/21/ TABLET 20 mg ORAL complet [facility] 20 MG Oral dine 2020 ed [facility] Tablet 01:26: Hospital [Pepcid] 00 PM EST Famotidine Famoti 05/21/ TABLET 20 mg ORAL complet [facility] 20 MG Oral dine 2020 ed [facility] Tablet 01:26: [facility] [Pepcid] 00 PM EST Famotidine Famoti // TABLET 20 mg ORAL complet [facility] 20 MG Oral dine 2020 ed [facility] Tablet 01:26: Hospital [Pepcid] 00 PM EST Famotidine Famoti 05/21/ TABLET 20 mg ORAL active [facility] 20 MG Oral dine 2020 [facility] Tablet 01:26: [facility] [Pepcid] 00 PM EST Famotidine Famoti // TABLET 20 mg ORAL active [facility] 20 MG Oral dine 2020 [facility] Tablet 01:26: Hospital [Pepcid] 00 PM EST Famotidine Famoti // TABLET 20 mg ORAL active [facility] 20 MG Oral dine 2020 [facility] Tablet 01:26: Hospital [Pepcid] 00 PM EST Famotidine Famoti /07/ TABLET 20 mg ORAL complet [facility] 20 MG Oral dine 2020 ed [facility] Tablet 01:26: Hospital [Pepcid] 00 PM EST Famotidine Famoti // TABLET 20 mg ORAL complet [facility] 20 MG Oral dine 2020 ed [facility] Tablet 01:26: Hospital [Pepcid] 00 PM EST Famotidine Famoti /07/ TABLET 20 mg ORAL active [facility] 20 MG Oral dine 2020 [facility] Tablet 01:26: [facility] [Pepcid] 00 PM EST Famotidine Famoti 02/07/ TABLET 20 mg ORAL complet [facility] 20 MG Oral dine 2020 ed [facility] Tablet 01:26: Hospital [Pepcid] 00 PM EST Famotidine Famoti /07/ TABLET 20 mg ORAL complet [facility] 20 MG Oral dine 2020 ed [facility] Tablet 01:26: Hospital [Pepcid] 00 PM EST Acetaminoph Aspiri 04/16/ TABLET {Cap ORAL active [facility] en 250 MG / n/Acet 2020 is[facility]} Plain s Aspirin 250 aminop 02:13: Hosp ital MG / hen/Ca 00 PM Caffeine 65 ffeine EST MG Oral Tablet Aspirin/Jovan taminophen/ Caffeine Acetaminoph Aspiri 04/16/ TABLET {Cap ORAL active [facility] en 250 MG / n/Acet 2020 [facility]} Plain s Aspirin 250 aminop 02:13: Hosp [facility] MG / hen/Ca 00 PM Caffeine 65 ffeine EST MG Oral Tablet Aspirin/Jovan taminophen/ Caffeine Acetaminoph Aspiri 04/16/ TABLET {Cap ORAL complet [facility] en 250 MG / n/Acet 2020 [facility]} ed [facility] s Aspirin 250 aminop 02:13: Hosp ital MG / hen/Ca 00 PM Caffeine 65 ffeine EST MG Oral Tablet Aspirin/Jovan taminophen/ Caffeine Acetaminoph Aspiri 04/16/ TABLET {Cap ORAL active [facility] en 250 MG / n/Acet 2020 [facility]} Plain s Aspirin 250 aminop 02:13: Hosp ital MG / hen/Ca 00 PM Caffeine 65 ffeine EST MG Oral Tablet Aspirin/Jovan taminophen/ Caffeine Acetaminoph Aspiri 04/16/ TABLET {Cap ORAL complet [facility] en 250 MG / n/Acet 2020 [facility]} ed [facility] s Aspirin 250 aminop 02:13: Hosp ital MG / hen/Ca 00 PM Caffeine 65 ffeine EST MG Oral Tablet Aspirin/Jovan taminophen/ Caffeine Acetaminoph Aspiri 04/16/ TABLET {Cap ORAL complet [facility] en 250 MG / n/Acet 2020 [facility]} ed [facility] s Aspirin 250 aminop 02:13: Hosp ital MG / hen/Ca 00 PM Caffeine 65 ffeine EST MG Oral Tablet Aspirin/Jovan taminophen/ Caffeine Acetaminoph Aspiri 04/16/ TABLET {Cap ORAL complet [facility] en 250 MG / n/Acet 2020 [facility]} ed [facility] s Aspirin 250 aminop 02:13: Hosp [facility] MG / hen/Ca 00 PM Caffeine 65 ffeine EST MG Oral Tablet Aspirin/Jovan taminophen/ Caffeine Acetaminoph Aspiri 04/16/ TABLET {Cap ORAL complet [facility] en 250 MG / n/Acet 2020 [facility]} ed Plain s Aspirin 250 aminop 02:13: Hosp ital MG / hen/Ca 00 PM Caffeine 65 ffeine EST MG Oral Tablet Aspirin/Jovan taminophen/ Caffeine Acetaminoph Aspiri 04/16/ TABLET {Cap ORAL complet [facility] en 250 MG / n/Acet 2020 [facility]} ed [facility] s Aspirin 250 aminop 02:13: Hosp [facility] MG / hen/Ca 00 PM Caffeine 65 ffeine EST MG Oral Tablet Aspirin/Jovan taminophen/ Caffeine Acetaminoph Aspiri 04/16/ TABLET {Cap ORAL complet [facility] en 250 MG / n/Acet 2020 [facility]} ed Plain s Aspirin 250 aminop 02:13: Hosp [facility] MG / hen/Ca 00 PM Caffeine 65 ffeine EST MG Oral Tablet Aspirin/Jovan taminophen/ Caffeine Acetaminoph Aspiri 04/16/ TABLET {Cap ORAL active White en 250 MG / n/Acet 2020 [facility]} Plain s Aspirin 250 aminop 02:13: Hosp [facility] MG / hen/Ca 00 PM Caffeine 65 ffeine EST MG Oral Tablet Aspirin/Jovan taminophen/ Caffeine Acetaminoph Aspiri 04/16/ TABLET {Cap ORAL active [facility] en 250 MG / n/Acet 2020 [facility]} Plain s Aspirin 250 aminop 02:13: [facility]osp [facility] MG / hen/Ca 00 PM Caffeine 65 ffeine EST MG Oral Tablet Aspirin/Jovan taminophen/ Caffeine Acetaminoph Aspiri 04/16/ TABLET {Cap ORAL active [facility] en 250 MG / n/Acet 2020 [facility]} Plain s Aspirin 250 aminop 02:13: Hosp [facility] MG / hen/Ca 00 PM Caffeine 65 ffeine EST MG Oral Tablet Aspirin/Jovan taminophen/ Caffeine Acetaminoph Aspiri 04/16/ TABLET {Cap ORAL complet [facility] en 250 MG / n/Acet 2020 [facility]} ed Plain s Aspirin 250 aminop 02:13: Hosp [facility] MG / hen/Ca 00 PM Caffeine 65 ffeine EST MG Oral Tablet Aspirin/Jovan taminophen/ Caffeine Acetaminoph Aspiri 04/16/ TABLET {Cap ORAL active [facility] en 250 MG / n/Acet 2020 [facility]} Plain s Aspirin 250 aminop 02:13: Hosp [facility] MG / hen/Ca 00 PM Caffeine 65 ffeine EST MG Oral Tablet Aspirin/Jovan taminophen/ Caffeine Insulin Insuli 03/02/ UNSPECIF 6 SUBCUT active [facility] Lispro 100 n 2019 IED ANEOUS [facility] UNT/ML Human 06:12: Hospital Injectable Lispro 00 PM Solution EST [Humalog] Insulin Human Lispro Insulin Insuli 03/02/ UNSPECIF 6 SUBCUT complet [facility] Lispro 100 n 2019 IED ANEOUS ed [facility] UNT/ML Human 06:12: Hospital Injectable Lispro 00 PM Solution EST [Humalog] Insulin Human Lispro Insulin Insuli 03/02/ UNSPECIF 15 SUBCUT active [facility] Glargine n 2019 IED ANEOUS [facility] 100 UNT/ML Glargi 06:12: Hospi [facility] Injectable ne 00 PM Solution EST [Lantus] Insulin Insuli 03/02/ UNSPECIF 15 SUBCUT complet [facility] Glargine n 2019 IED ANEOUS ed [facility] 100 UNT/ML Glargi 06:12: Hospi kl[facility] Injectable ne 00 PM Solution EST [Lantus] Insulin Insuli 03/02/ UNSPECIF 15 SUBCUT complet [facility] Glargine n 2019 IED ANEOUS ed [facility] 100 UNT/ML Glargi 06:12: Hospi kl[facility] Injectable ne 00 PM Solution EST [Lantus] Insulin Insuli 03/02/ UNSPECIF 6 SUBCUT complet [facility] Lispro 100 n 2019 IED ANEOUS ed [facility] UNT/ML Human 06:12: Hospital Injectable Lispro 00 PM Solution EST [Humalog] Insulin Human Lispro Insulin Insuli 03/02/ UNSPECIF 15 SUBCUT active [facility] Glargine n 2019 IED ANEOUS [facility] 100 UNT/ML Glargi 06:12: Hospi klaus Injectable ne 00 PM Solution EST [Lantus] Insulin Insuli 03/02/ UNSPECIF 15 SUBCUT complet [facility] Glargine n 2019 IED ANEOUS ed [facility] 100 UNT/ML Glargi 06:12: Hospi kl[facility] Injectable ne 00 PM Solution EST [Lantus] Insulin Insuli 03/02/ UNSPECIF 6 SUBCUT active [facility] Lispro 100 n 2019 IED ANEOUS [facility] UNT/ML Human 06:12: Hospital Injectable Lispro 00 PM Solution EST [Humalog] Insulin Human Lispro Insulin Insuli 03/02/ UNSPECIF 6 SUBCUT complet [facility] Lispro 100 n 2019 IED ANEOUS ed [facility] UNT/ML Human 06:12: Hospital Injectable Lispro 00 PM Solution EST [Humalog] Insulin Human Lispro Insulin Insuli 03/02/ UNSPECIF 6 SUBCUT complet [facility] Lispro 100 n 2019 IED ANEOUS ed [facility] UNT/ML Human 06:12: Hospital Injectable Lispro 00 PM Solution EST [Humalog] Insulin Human Lispro Insulin Insuli 03/02/ UNSPECIF 15 SUBCUT active [facility] Glargine n 2019 IED ANEOUS [facility] 100 UNT/ML Glargi 06:12: Hospi kl[facility] Injectable ne 00 PM Solution EST [Lantus] Insulin Insuli 03/02/ UNSPECIF 15 SUBCUT complet [facility] Glargine n 2019 IED ANEOUS ed [facility] 100 UNT/ML Glargi 06:12: Hospi kl[facility] Injectable ne 00 PM Solution EST [Lantus] Insulin Insuli 03/02/ UNSPECIF 15 SUBCUT complet [facility] Glargine n 2019 IED ANEOUS ed [facility] 100 UNT/ML Glargi 06:12: Hospi kl[facility] Injectable ne 00 PM Solution EST [Lantus] Insulin Insuli 03/02/ UNSPECIF 6 SUBCUT active [facility] Lispro 100 n 2019 IED ANEOUS [facility] UNT/ML Human 06:12: Hospital Injectable Lispro 00 PM Solution EST [Humalog] Insulin Human Lispro Insulin Insuli 03/02/ UNSPECIF 15 SUBCUT active [facility] Glargine n 2018 IED ANEOUS [facility] 100 UNT/ML Glargi 06:12: Hospi kl[facility] Injectable ne 00 PM Solution EST [Lantus] Insulin Insuli 03/02/ UNSPECIF 15 SUBCUT active [facility] Glargine n 2019 IED ANEOUS [facility] 100 UNT/ML Glargi 06:12: Hospi kl[facility] Injectable ne 00 PM Solution EST [Lantus] Insulin Insuli 03/02/ UNSPECIF 15 SUBCUT active [facility] Glargine n 2018 IED ANEOUS [facility] 100 UNT/ML Glargi 06:12: [facility]pi kl[facility] Injectable ne 00 PM Solution EST [Lantus] Insulin Insuli 03/02/ UNSPECIF 6 SUBCUT complet [facility] Lispro 100 n 2019 IED ANEOUS ed [facility] UNT/ML Human 06:12: Hospital Injectable Lispro 00 PM Solution EST [Humalog] Insulin Human Lispro Insulin Insuli 03/02/ UNSPECIF 15 SUBCUT complet [facility] Glargine n 2019 IED ANEOUS ed [facility] 100 UNT/ML Glargi 06:12: Hospi kl[facility] Injectable ne 00 PM Solution EST [Lantus] Insulin Insuli 03/02/ UNSPECIF 6 SUBCUT active [facility] Lispro 100 n 2019 IED ANEOUS [facility] UNT/ML Human 06:12: Hospital Injectable Lispro 00 PM Solution EST [Humalog] Insulin Human Lispro Insulin Insuli 03/02/ UNSPECIF 15 SUBCUT complet [facility] Glargine n 2019 IED ANEOUS ed [facility] 100 UNT/ML Glargi 06:12: Hospi kl[facility] Injectable ne 00 PM Solution EST [Lantus] Insulin Insuli 03/02/ UNSPECIF 6 SUBCUT complet [facility] Lispro 100 n 2019 IED ANEOUS ed [facility] UNT/ML Human 06:12: Hospital Injectable Lispro 00 PM Solution EST [Humalog] Insulin Human Lispro Insulin Insuli 03/02/ UNSPECIF 6 SUBCUT active [facility] Lispro 100 n 2019 IED ANEOUS [facility] UNT/ML Human 06:12: Hospital Injectable Lispro 00 PM Solution EST [Humalog] Insulin Human Lispro Insulin Insuli 03/02/ UNSPECIF 15 SUBCUT complet [facility] Glargine n 2019 IED ANEOUS ed [facility] 100 UNT/ML Glargi 06:12: Hospi klaus Injectable ne 00 PM Solution EST [Lantus] Insulin Insuli 03/02/ UNSPECIF 6 SUBCUT active [facility] Lispro 100 n 2019 IED ANEOUS [facility] UNT/ML Human 06:12: Hospital Injectable Lispro 00 PM Solution EST [Humalog] Insulin Human Lispro Insulin Insuli 03/02/ UNSPECIF 15 SUBCUT active [facility] Glargine n 2019 IED ANEOUS [facility] 100 UNT/ML Glargi 06:12: Hospi klaus Injectable ne 00 PM Solution EST [Lantus] Insulin Insuli 03/02/ UNSPECIF 15 SUBCUT active [facility] Glargine n 2019 IED ANEOUS [facility] 100 UNT/ML Glargi 06:12: Hospi klaus Injectable ne 00 PM Solution EST [Lantus] Insulin Insuli 03/02/ UNSPECIF 6 SUBCUT complet [facility] Lispro 100 n 2019 IED ANEOUS ed [facility] UNT/ML Human 06:12: Hospital Injectable Lispro 00 PM Solution EST [Humalog] Insulin Human Lispro Insulin Insuli 03/02/ UNSPECIF 6 SUBCUT complet [facility] Lispro 100 n 2019 IED ANEOUS ed [facility] UNT/ML Human 06:12: Hospital Injectable Lispro 00 PM Solution EST [Humalog] Insulin Human Lispro Insulin Insuli 03/02/ UNSPECIF 6 SUBCUT active [facility] Lispro 100 n 2019 IED ANEOUS [facility] UNT/ML Human 06:12: Hospital Injectable Lispro 00 PM Solution EST [Humalog] Insulin Human Lispro Insulin Insuli 03/02/ UNSPECIF 6 SUBCUT complet [facility] Lispro 100 n 2019 IED ANEOUS ed [facility] UNT/ML Human 06:12: Hospital Injectable Lispro 00 PM Solution EST [Humalog] Insulin Human Lispro Insulin Insuli 03/02/ UNSPECIF 6 SUBCUT complet [facility] Lispro 100 n 2019 IED ANEOUS ed [facility] UNT/ML Human 06:12: Hospital Injectable Lispro 00 PM Solution EST [Humalog] Insulin Human Lispro Insulin Insuli 03/02/ UNSPECIF 15 SUBCUT complet [facility] Glargine n 2019 IED ANEOUS ed [facility] 100 UNT/ML Glargi 06:12: Hospi klaus Injectable ne 00 PM Solution EST [Lantus] Insulin Insuli 03/02/ UNSPECIF 15 SUBCUT complet [facility] Glargine n 2018 IED ANEOUS ed [facility] 100 UNT/ML Glargi 06:12: Hospi kl[facility] Injectable ne 00 PM Solution EST [Lantus] Insulin Insuli 03/02/ UNSPECIF 6 SUBCUT active [facility] Lispro 100 n 2018 IED ANEOUS [facility] UNT/ML [facility] 06:12: Hospital Injectable Lispro 00 PM Solution EST [Humalog] Insulin Human Lispro Pen Needle 03/01/ NOT complet Michelle t - NOT 2018 APPLIC ed [facility] 00 AM EST Risperidone Risper TABLET 0.25 ORAL complet W mera 0.5 MG Oral idone mg [facility] Risperidone Risper TABLET 1 mg ORAL complet W mera 1 MG Oral idone [facility] Sertraline Sertra TABLET 200 ORAL complet Wh ite 100 MG Oral line mg ed [facility] [Zoloft] Sertraline Hcl Sertraline Sertra TABLET 1 ORAL complet [facility] 50 MG Oral line {Caps ed [facility]} [facility] [Zoloft] Sertraline Hcl Lisinopril Lisino TABLET 2.5 ORAL complet Wh ite 2.5 MG Oral pril mg ed [facility] Lisinopril Lisino TABLET 2.5 ORAL complet Wh ite 2.5 MG Oral pril mg ed [facility] Mirtazapine Mirtaz TABLET 30 mg ORAL complet [facility] 30 MG Oral apine [facility] aripiprazol Aripip TABLET 5 mg ORAL complet W mera e 5 MG Oral razole ed [facility] [Abilify] Aripiprazol e Lactulose Lactul SOLUTION 10 g ORAL complet W mera 667 MG/ML ose ed [facility] Solution Mirtazapine Mirtaz TABLET 30 mg ORAL complet [facility] 30 MG Oral apine [facility] aripiprazol Aripip TABLET 10 mg ORAL complet [facility] e 10 MG razole [facility] [Abilify] Aripiprazol e Mirtazapine Mirtaz TABLET 15 mg ORAL complet [facility] 15 MG Oral apine ed [facility] [Remeron] Lisinopril Lisino TABLET 2.5 ORAL complet Wh ite 2.5 MG Oral pril mg ed [facility] Risperidone Risper TABLET 1 mg ORAL complet W mera 1 MG Oral idone ed [facility] aripiprazol Aripip TABLET 10 mg ORAL complet [facility] 10 MG razole ed [facility] [Abilify] Aripiprazol e Mirtazapine Mirtaz TABLET 30 mg ORAL complet [place] 30 MG Oral apine ed [facility] Mirtazapine Mirtaz TABLET 30 mg ORAL complet [place] 30 MG Oral apine ed [facility] Sertraline Sertra TABLET 200 ORAL complet [facility] 100 MG Oral line mg ed [facility] [Zoloft] Sertraline Hcl aripiprazol Aripip TABLET 10 mg ORAL complet [facility] 10 MG razole ed [facility] [Abilify] Aripiprazol e Risperidone Risper TABLET 0.25 ORAL complet W mera 0.5 MG Oral idone mg ed [facility] Sertraline Sertra TABLET 200 ORAL complet [facility]e 100 MG Oral line mg ed [facility] [Zoloft] Sertraline Hcl Sertraline Sertra TABLET 200 ORAL complet [facility] 100 MG Oral line mg ed [facility] [Zoloft] Sertraline Hcl aripiprazol Aripip TABLET 5 mg ORAL complet W mera e 5 MG Oral razole ed [facility] [Abilify] Aripiprazol e Sertraline Sertra TABLET 200 ORAL complet [facility] 100 MG Oral line mg ed [facility] [Zoloft] Sertraline Hcl Mirtazapine Mirtaz TABLET 30 mg ORAL complet [place] 30 MG Oral apine ed [facility] Mirtazapine Mirtaz TABLET 30 mg ORAL complet [place] 30 MG Oral apine ed [facility] Risperidone Risper TABLET 1 mg ORAL complet W mera 1 MG Oral idone ed [facility] Mirtazapine Mirtaz TABLET 15 mg ORAL complet [place] 15 MG Oral apine ed [facility] [Remeron] Sertraline Sertra TABLET 1 ORAL complet [facility]e 50 MG Oral line [facility]Caps ed [facility] [Zoloft] Sertraline Hcl aripiprazol Aripip TABLET 5 mg ORAL complet W mera e 5 MG Oral razole ed [facility] [Abilify] Aripiprazol e aripiprazol Aripip TABLET 5 mg ORAL complet W mera e 5 MG Oral razole ed [facility] [Abilify] Aripiprazol e Mirtazapine Mirtaz TABLET 15 mg ORAL complet [place] 15 MG Oral apine ed [facility] [Remeron] Lisinopril Lisino TABLET 2.5 ORAL complet Wh ite 2.5 MG Oral pril mg ed [facility] aripiprazol Aripip TABLET 10 mg ORAL complet [place] [facility] 10 MG razole ed [facility] [Abilify] Aripiprazol e Sertraline Sertra TABLET 1 ORAL complet [facility] 50 MG Oral line [facility]Caps ed [facility] [Zoloft] Sertraline Hcl Risperidone Risper TABLET 1 mg ORAL complet W emra 1 MG Oral idone ed [facility] Mirtazapine Mirtaz TABLET 30 mg ORAL complet [place] 30 MG Oral apine ed [facility] Sertraline Sertra TABLET 200 ORAL complet [facility] 100 MG Oral line mg ed [facility] [Zoloft] Sertraline Hcl Lactulose Lactul SOLUTION 10 g ORAL complet W mera 667 MG/ML ose ed [facility] Mirtazapine Mirtaz TABLET 30 mg ORAL complet [place] 30 MG Oral apine ed [facility] Lactulose Lactul SOLUTION 10 g ORAL complet W mera 667 MG/ML ose ed [facility] Lactulose Lactul SOLUTION 10 g ORAL complet W mera 667 MG/ML ose ed [facility] Risperidone Risper TABLET 1 mg ORAL complet W mera 1 MG Oral idone ed [facility] aripiprazol Aripip TABLET 10 mg ORAL complet [place] [facility] 10 MG razole ed [facility] [Abilify] Aripiprazol e aripiprazol Aripip TABLET 5 mg ORAL complet W mera e 5 MG Oral razole ed [facility] [Abilify] Aripiprazol e Sertraline Sertra TABLET 200 ORAL complet [facility]e 100 MG Oral line mg ed [facility] [Zoloft] Sertraline Hcl Risperidone Risper TABLET 0.25 ORAL complet W mera 0.5 MG Oral idone mg ed [facility] aripiprazol Aripip TABLET 5 mg ORAL complet W mera e 5 MG Oral razole ed [facility] [Abilify] Aripiprazol e Sertraline Sertra TABLET 1 ORAL complet [facility] 50 MG Oral line [facility]Caps [facility] [Zoloft] Sertraline Hcl Sertraline Sertra TABLET 1 ORAL complet [facility] 50 MG Oral line [facility]Caps ed [facility] [Zoloft] Sertraline Hcl Risperidone Risper TABLET 1 mg ORAL complet W mera 1 MG Oral idone ed [facility] Risperidone Risper TABLET 1 mg ORAL complet W mera 1 MG Oral idone ed [facility] Mirtazapine Mirtaz TABLET 15 mg ORAL complet [place] 15 MG Oral apine ed [facility] [Remeron] Mirtazapine Mirtaz TABLET 15 mg ORAL complet [place] 15 MG Oral apine ed [facility] [Remeron] Mirtazapine Mirtaz TABLET 15 mg ORAL complet [place] 15 MG Oral apine ed [facility] [Remeron] Risperidone Risper TABLET 1 mg ORAL complet W mera 1 MG Oral idone ed [facility] Risperidone Risper TABLET 0.25 ORAL complet W mera 0.5 MG Oral idone mg ed [facility] Lactulose Lactul SOLUTION 10 g ORAL complet W mera 667 MG/ML ose ed [facility] aripiprazol Aripip TABLET 5 mg ORAL complet W mera e 5 MG Oral razole ed [facility] [Abilify] Aripiprazol e Sertraline Sertra TABLET 200 ORAL complet [facility] 100 MG Oral line mg ed [facility] [Zoloft] Sertraline Hcl Mirtazapine Mirtaz TABLET 30 mg ORAL complet [place] 30 MG Oral apine ed [facility] Sertraline Sertra TABLET 1 ORAL complet [facility]e 50 MG Oral line [facility]Caps [facility] [Zoloft] Sertraline Hcl Lactulose Lactul SOLUTION 10 g ORAL complet W mera 667 MG/ML ose ed [facility] Sertraline Sertra TABLET 1 ORAL complet Wh ite 50 MG Oral line [facility]Caps ed [facility] [Zoloft] Sertraline Hcl Sertraline Sertra TABLET 200 ORAL complet [facility]e 100 MG Oral line mg ed [facility] [Zoloft] Sertraline Hcl aripiprazol Aripip TABLET 5 mg ORAL complet W mera e 5 MG Oral razole ed [facility] [Abilify] Aripiprazol e Mirtazapine Mirtaz TABLET 15 mg ORAL complet [place] 15 MG Oral apine ed [facility] [Remeron] Risperidone Risper TABLET 1 mg ORAL complet W mera 1 MG Oral idone ed [facility] Mirtazapine Mirtaz TABLET 30 mg ORAL complet [place] 30 MG Oral apine ed [facility] aripiprazol Aripip TABLET 10 mg ORAL complet [place] [facility] 10 MG razole ed [facility] [Abilify] Aripiprazol e Risperidone Risper TABLET 1 mg ORAL complet W mera 1 MG Oral idone ed [facility] Mirtazapine Mirtaz TABLET 30 mg ORAL complet [place] 30 MG Oral apine ed [facility] Risperidone Risper TABLET 1 mg ORAL complet W mera 1 MG Oral idone ed [facility] Sertraline Sertra TABLET 1 ORAL complet Wh ite 50 MG Oral line [facility]Caps ed [facility] [Zoloft] Sertraline Hcl aripiprazol Aripip TABLET 10 mg ORAL complet [place] [facility] 10 MG razole ed [facility] [Abilify] Aripiprazol e Sertraline Sertra TABLET 1 ORAL complet Wh ite 50 MG Oral line [facility]Caps [facility] [Zoloft] Sertraline Hcl Mirtazapine Mirtaz TABLET 30 mg ORAL complet [place] 30 MG Oral apine ed [facility] Lactulose Lactul SOLUTION 10 g ORAL complet W mera 667 MG/ML ose ed [facility] Lisinopril Lisino TABLET 2.5 ORAL complet Wh ite 2.5 MG Oral pril mg ed [facility] aripiprazol Aripip TABLET 10 mg ORAL complet [place] [facility] 10 MG razole ed [facility] [Abilify] Aripiprazol e Sertraline Sertra TABLET 1 ORAL complet Wh ite 50 MG Oral line [facility]Caps ed [facility] [Zoloft] Sertraline Hcl Lactulose Lactul SOLUTION 10 g ORAL complet W mera 667 MG/ML ose ed [facility] Mirtazapine Mirtaz TABLET 15 mg ORAL complet [place] 15 MG Oral apine ed [facility] [Remeron] Lactulose Lactul SOLUTION 10 g ORAL complet W mera 667 MG/ML ose ed [facility] aripiprazol Aripip TABLET 5 mg ORAL complet W mera e 5 MG Oral razole ed [facility] [Abilify] Aripiprazol e Lactulose Lactul SOLUTION 10 g ORAL complet W mera 667 MG/ML ose ed [facility] aripiprazol Aripip TABLET 10 mg ORAL complet [place] [facility] 10 MG razole ed [facility] [Abilify] Aripiprazol e Sertraline Sertra TABLET 200 ORAL complet [facility] ite 100 MG Oral line mg ed [facility] [Zoloft] Sertraline Hcl Sertraline Sertra TABLET 200 ORAL complet [facility]e 100 MG Oral line mg ed [facility] [Zoloft] Sertraline Hcl Mirtazapine Mirtaz TABLET 15 mg ORAL complet [place] 15 MG Oral apine ed [facility] [Remeron] aripiprazol Aripip TABLET 10 mg ORAL complet [place] [facility] 10 MG razole ed [facility] [Abilify] Aripiprazol e Mirtazapine Mirtaz TABLET 15 mg ORAL complet [place] 15 MG Oral apine ed [facility] [Remeron] Sertraline Sertra TABLET 1 ORAL complet Wh ite 50 MG Oral line [facility]Caps ed [facility] [Zoloft] Sertraline Hcl Lisinopril Lisino TABLET 2.5 ORAL complet Wh ite 2.5 MG Oral pril mg ed [facility] Risperidone Risper TABLET 0.25 ORAL complet W mera 0.5 MG Oral idone mg ed [facility] aripiprazol Aripip TABLET 5 mg ORAL complet W mera e 5 MG Oral razole ed [facility] [Abilify] Aripiprazol e Risperidone Risper TABLET 0.25 ORAL complet W mera 0.5 MG Oral idone mg ed [facility] Risperidone Risper TABLET 1 mg ORAL complet W mera 1 MG Oral idone ed [facility] Risperidone Risper TABLET 0.25 ORAL complet W mera 0.5 MG Oral idone mg ed [facility] Sertraline Sertra TABLET 200 ORAL complet Wh ite 100 MG Oral line mg ed [facility] [Zoloft] Sertraline Hcl Mirtazapine Mirtaz TABLET 15 mg ORAL complet [place] 15 MG Oral apine ed [facility] [Remeron] Lisinopril Lisino TABLET 2.5 ORAL complet Wh ite 2.5 MG Oral pril mg ed [facility] Risperidone Risper TABLET 0.25 ORAL complet W mera 0.5 MG Oral idone mg ed [facility] Lactulose Lactul SOLUTION 10 g ORAL complet W mera 667 MG/ML ose [facility] aripiprazol Aripip TABLET 10 mg ORAL complet [place] e 10 MG razole ed [facility] [Abilify] Aripiprazol e Lisinopril Lisino TABLET 2.5 ORAL complet Wh ite 2.5 MG Oral pril mg ed [facility] aripiprazol Aripip TABLET 5 mg ORAL complet W mera e 5 MG Oral razole ed [facility] [Abilify] Aripiprazol e Insurance Providers Payer name Policy type Policy ID Covered Covered democrat's Policy P jon / Coverage democrat ID relationship to Gonsalez Inf ormation type gonsalez [facility] [id number] STRGY-AFF [facility] [id number] PT [id number] HEALTH PLAN SELF PAY 0000 Self 0000 MEDICAID OP [id number] Self [id number] [facility] AHP [id number] Self [id number] [facility] SELF PAY [id number] Self [id number] MEDICAID OP [id number] Self [id number] [facility] AHP [id number] Self [id number] [facility] MEDICAID [id number] PT [id number] AFFINITY [id number] PT [id number] HEALTH PLAN AFFINITY [id number] PT [id number] ESSENTIAL PLAN 3 SELF PAY [id number] Self [id number] MEDICAID OP [id number] Self [id number] MMC [id number] Self [id number] AFFINITY/BEAC ON AFFINITY [id number] PT [id number] HEALTH PLAN AFFINITY [id number] PT [id number] HEALTH PLAN SELF PAY 0 Self 0 MEDICAID INP [id number] Self [id number] F PSYCH [facility] AHP [id number] Self [id number] [facility] AFFINITY [id number] PT [id number] HEALTH PLAN SELF PAY 0 Self 0 MEDICAID INP [id number] Self [id number] F PSYCH SELF PAY 0 Self 0 MEDICAID OP [id number] Self [id number] MMC AHP [id number] Self [id number] [facility] SELF PAY 0000 Self 0000 MEDICAID OP [id number] Self [id number] SELF PAY PT INSURANCE SELF PAY 00 Self 00 MEDICAID INP [id number] Self [id number] F PSYCH AFFINITY [id number] PT [id number] HEALTH PLAN Medicaid [id number] Regular Clinic Visit Problems, Conditions, and Diagnoses Code Display Name Description Problem Type Effective Data Sour ce(s) Dates [id number] Moderate manic Moderate manic Complaint 03/08/2019 [facility] RT bipolar I disorder bipolar I 07:00:00 PM ([facility] disorder EST - [facility] 06/28/2019 [place]) 06:15:00 PM EDT Z79.4 oysterman (current) Z79.4 Diagnosis 01/18/2020 [place] use of insulin 02:58:00 PM Hospital EDT K72.90 Hepatic failure, K72.90 Diagnosis 01/18/[address] [place] unspecified without 02:58:00 PM Hosp ital coma EDT D63.8 Anemia in other D63.8 Diagnosis 01/18/2020 [place] [facility] chronic diseases 02:58:00 PM Hospita l classified elsewhere EDT E83.39 Other disorders of E83.39 Diagnosis 01/18/2020 [place] phosphorus metabolism 02:58:00 PM Ho spital EDT E87.5 Hyperkalemia E87.5 Diagnosis 01/18/2020 [place] 02:58:00 PM Hospital EDT K74.60 Unspecified cirrhosis K74.60 Diagnosis 01/18/2020 [facility] of liver 02:58:00 PM Hospital EDT Z68.20 Body mass index (BMI) Z68.20 Diagnosis 01/18/2020 [facility] 20.0-20.9, adult 02:58:00 PM Hospita l EDT E43 Unspecified severe E43 Diagnosis 01/18/2020 [place] protein-calorie 02:58:00 PM Hospital malnutrition EDT Z11.59 Encounter for Z11.59 Diagnosis 01/18/2020 [facility] [place] screening for other 02:58:00 PM Hosp ital viral diseases EDT F14.10 Cocaine abuse, F14.10 Diagnosis 01/18/2020 [place] uncomplicated 02:58:00 PM Hospital EDT I10 Essential (primary) I10 Diagnosis 01/18/2020 [place] hypertension 02:58:00 PM Hospital EDT F31.9 Bipolar disorder, F31.9 Diagnosis 01/18/2020 [place] unspecified 02:58:00 PM Hospital EDT Z91.14 Patient's other Z91.14 Diagnosis 01/18/2020 [place] [facility] noncompliance with 02:58:00 PM [facility]pi [facility] medication regimen EDT N17.9 Acute kidney failure, N17.9 Diagnosis 01/18/2020 [facility] unspecified 02:58:00 PM Hospital EDT E11.10 Type 2 diabetes E11.10 Diagnosis 01/18/2020 [place] [facility] mellitus with 02:58:00 PM Hospital ketoacidosis without EDT coma E86.0 Dehydration E86.0 Diagnosis 01/10/2020 [place] 12:45:00 AM Hospital EDT E11.65 Type 2 diabetes E11.65 Diagnosis 01/10/2020 [place] [facility] mellitus with 12:45:00 AM Hospital hyperglycemia EDT B88.8 Other specified B88.8 Diagnosis 01/08/2020 [facility] infestations 07:17:00 AM Hospital EDT E03.9 Hypothyroidism, HYPOTHYROIDISM, Diagnosis 12/24/2019 [facility] unspecified UNSPECIFIED 07:01:[address] EDT E11.9 Type 2 diabetes TYPE 2 DIABETES Diagnosis 12/24/2019 [facility] mellitus without MELLITUS WITHOUT 07:01:00 AM [facility] complications COMPLICATIONS EDT E11.9 Type 2 diabetes E11.9 Diagnosis 12/21/2019 [place] [facility] mellitus without 05:38:00 AM Hospita l complications EDT M62.81 Muscle weakness M62.81 Diagnosis 12/21/2019 [facility] (generalized) 05:38:00 AM Hospital EDT F41.9 Anxiety disorder, F41.9 Diagnosis 12/15/2019 [place] unspecified 10:09:00 PM Hospital EDT Z87.891 Personal history of Z87.891 Diagnosis 12/15/2019 [place] nicotine dependence 10:09:00 PM Hosp ital EDT E03.9 Hypothyroidism, E03.9 Diagnosis 12/15/2019 [place] [facility] unspecified 10:09:00 PM Hospital EDT K76.6 Portal hypertension K76.6 Diagnosis 12/15/2019 [place] 10:09:00 PM Hospital EDT K70.30 Alcoholic cirrhosis K70.30 Diagnosis 12/15/2019 [place] of liver without 10:09:00 PM Hospita l ascites EDT E83.52 Hypercalcemia E83.52 Diagnosis 12/15/2019 [place] 10:09:00 PM Hospital EDT G92 Toxic encephalopathy G92 Diagnosis 12/15/2019 [facility] 10:09:00 PM Hospital EDT R03.0 Elevated R03.0 Diagnosis 11/30/2019 [place] blood-pressure 05:16:00 PM Hospital reading, without EDT diagnosis of hypertension F19.11 Other psychoactive F19.11 Diagnosis 11/30/2019 [place] substance abuse, in 05:16:00 PM Hosp ital remission EDT F10.11 Alcohol abuse, in F10.11 Diagnosis 11/30/2019 [place] remission 05:16:00 PM Hospital EDT E07.9 Disorder of thyroid, E07.9 Diagnosis 11/30/2019 [facility] unspecified 05:16:00 PM Hospital EDT Z87.820 Personal history of Z87.820 Diagnosis 11/30/2019 [place] traumatic brain 05:16:00 PM Hospital injury EDT E10.65 Type 1 diabetes E10.65 Diagnosis 11/30/2019 [place] [facility] mellitus with 05:16:00 PM Hospital hyperglycemia EDT Z91.19 Patient's Z91.19 Diagnosis 11/20/2019 [place] noncompliance with 11:21:00 PM [facility]pi [facility] other medical EDT treatment and regimen T43.225A Adverse effect of T43.225A Diagnosis 11/20/2019 [place] selective serotonin 11:21:00 PM Hosp ital reuptake inhibitors, EDT initial encounter 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 11/20/2019 [place] with hepatic 11:21:00 PM Hospital necrosis, without EDT coma Z91.128 Patient's intentional Z91.128 Diagnosis 11/20/2019 [facility] underdosing of 11:21:00 PM Hospital medication regimen EDT for other reason T38.3X6A Underdosing of T38.3X6A Diagnosis 11/20/2019 [place] insulin and oral 11:21:00 PM Hospita l hypoglycemic EDT [antidiabetic] drugs, initial encounter R29.6 Repeated falls R29.6 Diagnosis 11/20/2019 [place] 11:21:00 PM Hospital EDT R44.3 Hallucinations, R44.3 Diagnosis 11/20/2019 [place] [facility] unspecified 11:21:00 PM Hospital EDT F05 Delirium due to known F05 Diagnosis 11/20/2019 [facility] physiological 11:21:00 PM Hospital condition EDT E10.10 Type 1 diabetes E10.10 Diagnosis 11/20/2019 [place] [facility] mellitus with 11:21:00 PM Hospital ketoacidosis without EDT coma Z13.84 Encounter for ENCOUNTER FOR Diagnosis 11/02/2019 [facility] screening for dental SCREENING FOR 09:23:00 AM [facility] disorders DENTAL DISORDERS EDT [facility] R51 Headache R51 Diagnosis 10/26/2019 [place] 02:30:00 AM Hospital EDT F19.10 Other psychoactive F19.10 Diagnosis 06/17/2019 [place] substance abuse, 09:07:00 PM Hospita l uncomplicated EST F10.21 Alcohol dependence, F10.21 Diagnosis 06/17/2019 [place] in remission 09:07:00 PM Hospital EST F32.9 Major depressive F32.9 Diagnosis 06/17/[address] [place] disorder, single 09:07:00 PM Hospita l episode, unspecified EST F25.0 Schizoaffective F25.0 Diagnosis 06/17/2019 [place] [facility] disorder, bipolar 09:07:00 PM Hospit al type EST K70.40 Alcoholic hepatic K70.40 Diagnosis 06/17/2019 [place] failure without coma 09:07:00 PM Hos pital EST F10.10 Alcohol abuse, F10.10 Diagnosis 05/25/2019 [place] uncomplicated 09:03:00 PM Hospital EST F14.20 Cocaine dependence, F14.20 Diagnosis 05/25/2019 [place] uncomplicated 09:03:00 PM Hospital EST E78.5 Hyperlipidemia, E78.5 Diagnosis 05/25/2019 [place] [facility] unspecified 09:03:00 PM Hospital EST R10.13 Epigastric pain R10.13 Diagnosis 05/19/2019 [place] [facility] [facility] 05:49:00 PM Hospital EST E10.8 Type 1 diabetes E10.8 Diagnosis 05/19/2019 [place] [facility] mellitus with 05:49:00 PM Hospital unspecified EST complications E83.42 Hypomagnesemia E83.42 Diagnosis 05/19/2019 [place] 05:49:00 PM Hospital EST Z79.82 oysterman (current) Z79.82 Diagnosis 05/19/2019 [place] use of aspirin 05:49:00 PM Hospital EST T43.505A Adverse effect of T43.505A Diagnosis 05/19/2019 [place] unspecified 05:49:00 PM Hospital antipsychotics and EST neuroleptics, initial encounter R94.31 Abnormal R94.31 Diagnosis 05/19/2019 [place] electrocardiogram 05:49:00 PM Hospit al [ECG] [EKG] EST F25.1 Schizoaffective F25.1 Diagnosis 05/19/2019 [place] [facility] disorder, depressive 05:49:00 PM Hos pital type EST R45.851 Suicidal ideations R45.851 Diagnosis 05/17/2019 [place] 08:05:00 PM Hospital EST E10.649 Type 1 diabetes E10.649 Diagnosis 04/29/2019 [place] [facility] mellitus with 12:53:00 PM Hospital hypoglycemia without EST coma R05 Cough R05 Diagnosis 04/06/2019 [place] 10:11:00 PM Hospital EST E87.6 Hypokalemia E87.6 Diagnosis 04/06/2019 [place] 10:11:00 PM Hospital EST E11.649 Type 2 diabetes E11.649 Diagnosis 04/06/2019 [place] [facility] mellitus with 10:11:00 PM Hospital hypoglycemia without EST coma F10.20 Alcohol dependence, F10.20 Diagnosis 03/01/2019 [place] uncomplicated 10:57:00 PM Hospital EST Z79.899 Other emt intermediate Z79.899 Diagnosis 03/01/2019 [place] [facility] [facility] (current) drug 10:57:00 PM Hospital therapy EST F31.4 Bipolar disorder, F31.4 Diagnosis 03/01/2019 [place] current episode 10:57:00 PM Hospital depressed, severe, EST without psychotic features Z91.5 Personal history of Z91.5 Diagnosis 03/01/2019 [place] self-harm 10:57:00 PM Hospital EST F17.200 Nicotine dependence, F17.200 Diagnosis 02/14/2019 [facility] unspecified, 11:16:00 AM Hospital uncomplicated EST Surgeries/Procedures Procedure Description Date Indications Data Source(s) Physical therapy procedure 01/20/2020 [facility] (regime/therapy) 12:00:00 AM Hospital EDT Electrocardiographic procedure 01/18/2020 [place] (procedure) 12:00:00 AM Hospital EDT Plain chest X-ray (procedure) 01/18/2020 [place] 12:00:00 AM Hospital EDT Computed tomography of head 01/18/2020 [place] without contrast 12:00:00 AM Hospital EDT XR forearm right 01/10/2020 [place] 12:00:00 AM Hospital EDT XR elbow right 01/10/2020 [place] 12:00:00 AM Hospital EDT Plain chest X-ray (procedure) 01/10/2020 [place] 12:00:00 AM Hospital EDT Electrocardiographic procedure 01/10/2020 [place] (procedure) 12:00:00 AM Hospital EDT Hopd covid-19 spec collect 01/10/2020 [facility] 12:00:00 AM Hospital EDT Hydrate iv infusion add-on 01/10/2020 [facility] 12:00:00 AM Hospital EDT Ther/proph/diag inj iv push 01/10/2020 [place] 12:00:00 AM Hospital EDT X-ray exam of forearm 01/10/2020 [place] 12:00:00 AM Hospital EDT X-ray exam of elbow 01/10/[address] [place] 12:00:00 AM Hospital EDT X-ray exam chest 1 view 01/10/2020 [facility] 12:00:00 AM Hospital EDT Electrocardiogram tracing 01/10/2020 [facility] 12:00:00 AM Hospital EDT Reagent strip/blood glucose 01/10/2020 [place] 12:00:00 AM Hospital EDT Comprehen metabolic panel 01/10/2020 [facility] 12:00:00 AM Hospital EDT Mr-staph dna amp probe 01/10/2020 [place] 12:00:00 AM Hospital EDT SARS-COV-2 COVID-19 AMP PRB 01/10/2020 [place] 12:00:00 AM Hospital EDT Complete cbc w/auto diff wbc 01/10/2020 [place] 12:00:00 AM Hospital EDT Emergency dept visit 01/10/2020 [facility] 12:00:00 AM Hospital EDT XR forearm right 01/10/2020 [place] 12:00:00 AM Hospital EDT XR elbow right 01/10/2020 [place] 12:00:00 AM Hospital EDT Plain chest X-ray (procedure) 01/10/2020 [place] 12:00:00 AM Hospital EDT Electrocardiographic procedure 01/10/2020 [place] (procedure) 12:00:00 AM Hospital EDT Drug test prsmv chem anlyzr 01/08/2020 [place] 12:00:00 AM Hospital EDT Comprehen metabolic panel 01/08/2020 [facility] 12:00:00 AM Hospital EDT Drug test prsmv chem anlyzr 01/08/2020 [place] 12:00:00 AM Hospital EDT Macroscopic exam arthropod 01/08/2020 [facility] 12:00:00 AM Hospital EDT Blood culture for bacteria 01/08/2020 [facility] 12:00:00 AM Hospital EDT Mr-staph dna amp probe 01/08/2020 [place] 12:00:00 AM Hospital EDT SARS-COV-2 COVID-19 AMP PRB 01/08/2020 [place] 12:00:00 AM Hospital EDT Prothrombin time 01/08/2020 [place] 12:00:00 AM Hospital EDT Complete cbc w/auto diff wbc 01/08/2020 [place] 12:00:00 AM Hospital EDT Thromboplastin time partial 01/08/2020 [place] 12:00:00 AM Hospital EDT Blood gases any combination 01/08/2020 [place] 12:00:00 AM Hospital EDT Urinalysis auto w/o scope 01/08/2020 [facility] 12:00:00 AM Hospital EDT Emergency dept visit 01/08/2020 [place] 12:00:00 AM Hospital EDT Plain chest X-ray (procedure) 01/08/2020 [place] 12:00:00 AM Hospital EDT Plain chest X-ray (procedure) 01/08/2020 [place] 12:00:00 AM Hospital EDT Plain chest X-ray (procedure) 01/08/2020 [place] 12:00:00 AM Hospital EDT RINGERS LACTATE INFUSION 01/08/2020 [facility] 12:00:00 AM Hospital EDT DRUGS UNCLASSIFIED INJECTION 01/08/2020 [place] 12:00:00 AM Hospital EDT Hopd covid-19 spec collect 01/08/2020 [facility] 12:00:00 AM Hospital EDT Hydrate iv infusion add-on 01/08/2020 [facility] 12:00:00 AM Hospital EDT Ther/proph/diag inj iv push 01/08/2020 [place] 12:00:00 AM Hospital EDT X-ray exam chest 1 view 01/08/2020 [facility] 12:00:00 AM Hospital EDT Assay of troponin qual 01/08/2020 [place] 12:00:00 AM Hospital EDT Assay of phosphorus 01/08/[address] [place] 12:00:00 AM Hospital EDT Assay of magnesium 01/08/2020 [facility] Assay of lipase 01/08/2020 [facility] 12:[facility] EDT Assay of lactic acid 01/08/2020 [facility] EDT Reagent strip/blood glucose 01/08/2020 [place] 12:00:00 AM [facility] EDT NORMAL SALINE SOLUTION INFUS 2020 [place] 12:00:00 AM [facility] EDT INSULIN INJECTION 2020 [facility] EDT Reagent strip/blood glucose 2020 [place] 12:00:00 [facility] EDT Metabolic panel total ca 2020 [facility] EDT Complete cbc w/auto diff wbc 2020 [place] 12:00:00 AM [facility] EDT Urinalysis auto w/o scope 2020 [facility] 12[facility] EDT Ther/proph/diag inj iv push 2020 [place] 12:00:00 AM [facility] EDT Emergency dept visit 2020 [facility] 12:00:00 AM [facility] EDT NORMAL SALINE SOLUTION INFUS 2020 [place] 12:00:00 AM [facility] EDT INSULIN INJECTION 2020 [facility] 12:00:00 AM [facility] EDT Reagent strip/blood glucose 2020 [place] 12:00:00 AM [facility] EDT Metabolic panel total ca 2020 [facility] 12[facility] EDT Complete cbc w/auto diff wbc 2020 [place] 12:00:00 AM [facility] EDT Urinalysis auto w/o scope 2020 [facility] 12:00:[facility] EDT Ther/proph/diag inj iv push 2020 [place] 12:00:00 AM [facility] EDT Emergency dept visit 2020 [facility] 12:00:00 AM [facility] EDT NORMAL SALINE SOLUTION INFUS 2020 [place] 12:00:00 AM [facility] EDT INSULIN INJECTION 2020 [facility] 12:00:00 AM [facility] EDT Reagent strip/blood glucose 2020 [place] 12:00:00 AM [facility] EDT Metabolic panel total ca 2020 [facility] 12:[facility] EDT Complete cbc w/auto diff wbc 2020 [place] 12:00:00 AM [facility] EDT Urinalysis auto w/o scope 2020 [facility] 12[facility]00:00 [facility] EDT Ther/proph/diag inj iv push 2020 [place] 12:00:00 AM [facility] EDT Emergency dept visit 2020 [facility] 12:[facility] EDT Hepatitis c revrs trnscrpj 12/29/2019 [facility] EDT Alpha-fetoprotein serum 12/29/2019 [facility] 12[facility] EDT Assay of magnesium 12/29/2019 [facility] EDT Hepatic function panel 12/29/2019 [place] 12:00:00 AM [facility] EDT Iron binding test 12/29/2019 [facility] EDT Assay of iron 12/29/2019 [place] 12:00:00 AM [facility] EDT Hepatitis a antibody 12/29/2019 [facility] 12:[facility] EDT Hepatitis a igm antibody 12/29/2019 [facility] EDT Hepatitis b surface ag ia 12/29/2019 [facility] 12:[facility] EDT Hep b surface antibody 12/29/2019 [place] 12:00:00 AM [facility] EDT Hep b core antibody total 12/29/2019 [facility] 12:00:[facility] EDT Assay of ferritin 12/29/2019 [facility] EDT Metabolic panel total ca 12/29/2019 [facility] EDT Prothrombin time 12/29/2019 [facility] EDT Complete cbc w/auto diff wbc 12/29/2019 [place] 12:00:00 AM [facility] EDT Kdhqk-2-wyrhzagrjaf total 12/29/2019 [facility] EDT Hepatitis c revrs trnscrpj 12/29/2019 [facility] 12:[facility] EDT Alpha-fetoprotein serum 12/29/2019 [facility] 12:[facility] EDT Assay of magnesium 12/29/2019 [facility] EDT Hepatic function panel 12/29/2019 [place] 12:00:00 AM [facility] EDT Iron binding test 12/29/2019 [facility] EDT Assay of iron 12/29/2019 [place] 12:00:00 AM [facility] EDT Hepatitis a antibody 12/29/2019 [facility] 12:[facility] EDT Hepatitis a igm antibody 12/29/2019 [facility] 12[facility] EDT Hepatitis b surface ag ia 12/29/2019 [facility] 12:00:[facility] EDT Hep b surface antibody 12/29/2019 [place] 12:00:00 AM [facility] EDT Hep b core antibody total 12/29/2019 [facility] 12:00:[facility] EDT Assay of ferritin 12/29/2019 [facility] EDT Metabolic panel total ca 12/29/2019 [facility] 12:[facility] EDT Prothrombin time 12/29/2019 [facility] 12:[facility] EDT Complete cbc w/auto diff wbc 12/29/2019 [place] 12:00:00 AM [facility] EDT Hdqky-3-zjumjwkikyi total 12/29/2019 [facility] 12:[facility] EDT Hepatitis c revrs trnscrpj 12/29/2019 [facility] 12:00:[facility] EDT Alpha-fetoprotein serum 12/29/2019 [facility] 12:00:[facility] EDT Assay of magnesium 12/29/2019 [facility] 12:[facility] EDT Hepatic function panel 12/29/2019 [place] 12:00:00 AM [facility] EDT Iron binding test 12/29/2019 [facility] EDT Assay of iron 12/29/2019 [place] 12:00:00 AM [facility] EDT Hepatitis a antibody 12/29/2019 [facility] 12:[facility] EDT Hepatitis a igm antibody 12/29/2019 [facility] 12[facility] EDT Hepatitis b surface ag ia 12/29/2019 [facility] 12:00:[facility] EDT Hep b surface antibody 12/29/2019 [place] 12:00:00 AM [facility] EDT Hep b core antibody total 12/29/2019 [facility] 12:00:[facility] EDT Assay of ferritin 12/29/2019 [facility] EDT Metabolic panel total ca 12/29/2019 [facility] 12:[facility] EDT Prothrombin time 12/29/2019 [facility] 12[facility] EDT Complete cbc w/auto diff wbc 12/29/2019 [place] 12:00:00 AM [facility] EDT Cbifq-6-qluqfqohpzg total 12/29/2019 [facility] 12:[facility] EDT Physical therapy procedure 12/21/2019 [facility] (regime[facility]therapy) 12:00:00 AM [facility] EDT Electrocardiographic procedure 12/21/2019 [place] (procedure) 12:00:00 AM [facility] EDT Hopd covid-19 spec collect 12/21/2019 [facility] 12:00:[facility] EDT Gait training therapy 12/21/2019 [place] 12:00:00 AM [facility] EDT Pt eval low complex 20 min 12/21/2019 [facility] 12:00:[facility] EDT Electrocardiogram tracing 12/21/2019 [facility] 12:00:[facility] EDT Assay of troponin qual 12/21/2019 [place] 12:00:00 AM [facility] EDT Reagent strip/blood glucose 12/21/2019 [place] 12:00:00 AM [facility] EDT Drug test prsmv chem anlyzr 12/21/2019 [place] 12:00:00 AM [facility] EDT Comprehen metabolic panel 12/21/2019 [facility] 12:00:[facility] EDT Drug assay clozapine 12/21/2019 [facility] 12:[facility] EDT Mr-staph dna amp probe 12/21/2019 [place] 12:00:00 AM [facility] EDT SARS-COV-2 COVID-19 AMP PRB 12/21/2019 [place] 12:00:00 AM [facility] EDT Prothrombin time 12/21/2019 [facility] 12[facility] EDT Complete cbc automated 12/21/2019 [place] 12:00:00 AM [facility] EDT Thromboplastin time partial 12/21/2019 [place] 12:00:00 AM [facility] EDT Urinalysis auto w/o scope 12/21/2019 [facility] 12:[facility] EDT Hydrate iv infusion add-on 12/21/2019 [facility] 12:00:[facility] EDT Ther/proph/diag inj iv push 12/21/2019 [place] 12:00:00 AM [facility] EDT Emergency dept visit 12/21/2019 [facility] 12:00:00 AM [facility] EDT Physical therapy procedure 12/21/2019 [facility] (regime[facility]therapy) 12:00:00 AM [facility] EDT Electrocardiographic procedure 12/21/2019 [place] (procedure) 12:00:00 AM [facility] EDT Hopd covid-19 spec collect 12/21/2019 [facility] 12:00:00 AM [facility] EDT Gait training therapy 12/21/2019 [place] 12:00:00 AM [facility] EDT Pt eval low complex 20 min 12/21/2019 [facility] Assay of troponin qual 12/21/2019 [place] 12:00:00 AM [facility] EDT Reagent strip/blood glucose 12/21/2019 [place] 12:00:00 AM [facility] EDT Drug test prsmv chem anlyzr 12/21/2019 [place] 12:00:00 AM Hospital EDT Comprehen metabolic panel 12/21/2019 [facility] 12:00:[facility] AM [facility] EDT Drug assay clozapine 12/21/2019 [facility] 12:[facility]:00 AM [facility] EDT Mr-staph dna amp probe 12/21/2019 [place] 12:00:00 AM Hospital EDT SARS-COV-2 COVID-19 AMP PRB 12/21/2019 [place] 12:00:00 AM Hospital EDT Prothrombin time 12/21/2019 [facility] 12:00:00 AM Hospital EDT Complete cbc automated 12/21/2019 [place] 12:00:00 AM Hospital EDT Thromboplastin time partial 12/21/2019 [place] 12:00:00 AM [facility] EDT Urinalysis auto w/o scope 12/21/2019 [facility] 12:[facility] ED[facility] Ther/proph/diag inj iv push 12/21/2019 [place] 12:00:00 AM Hospital EDT Emergency dept visit 12/21/2019 [facility] 12:00:00 AM [facility] EDT Physical therapy procedure 12/21/2019 [facility] (regime/therapy) 12:00:00 AM Hospital EDT Electrocardiographic procedure 12/21/2019 [place] (procedure) 12:00:00 AM Hospital EDT Hopd covid-19 spec collect 12/21/2019 [facility] 12:00:00 AM Hospital EDT Gait training therapy 12/21/2019 [place] 12:00:00 AM Hospital EDT Pt eval low complex 20 min 12/21/2019 [facility] 12:00:00 AM Hospital EDT Electrocardiogram tracing 12/21/2019 [facility] 12:00:00 AM Hospital EDT Assay of troponin qual 12/21/2019 [place] 12:00:00 AM Hospital EDT Reagent strip/blood glucose 12/21/2019 [place] 12:00:00 AM Hospital EDT Drug test prsmv chem anlyzr 12/21/2019 [place] 12:00:00 AM Hospital EDT Comprehen metabolic panel 12/21/2019 [facility] 12:00:00 AM Hospital EDT Drug assay clozapine 12/21/2019 [place] [facility] 12:00:00 AM [facility] EDT Mr-staph dna amp probe 12/21/2019 [place] 12:00:00 AM Hospital EDT SARS-COV-2 COVID-19 AMP PRB 12/21/2019 [place] 12:00:00 AM Hospital EDT Prothrombin time 12/21/2019 [facility] 12:00:00 AM Hospital EDT Complete cbc automated 12/21/2019 [place] 12:00:00 AM Hospital EDT Thromboplastin time partial 12/21/2019 [place] 12:00:00 AM Hospital EDT Urinalysis auto w/o scope 12/21/2019 [facility] 12:00:00 AM Hospital EDT Hydrate iv infusion add-on 12/21/2019 [facility] 12:00:00 AM Hospital EDT Ther/proph/diag inj iv push 12/21/2019 [place] 12:00:00 AM Hospital EDT Emergency dept visit 12/21/2019 [facility] 12:00:00 AM [facility] EDT Physical therapy procedure 12/21/2019 [facility] (regime[facility]therapy) 12:00:00 AM [facility] EDT Electrocardiographic procedure 12/21/2019 [place] (procedure) 12:00:00 AM Hospital EDT Physical therapy procedure 12/17/2019 [facility] (regime/therapy) 12:00:00 AM [facility] EDT Physical therapy procedure 12/17/2019 [facility] (regime/therapy) 12:00:00 AM [facility] EDT Physical therapy procedure 12/17/2019 [facility] (regime/therapy) 12:00:00 AM [facility] EDT Physical therapy procedure 12/17/2019 [facility] (regime/therapy) 12:00:00 AM [facility] EDT Physical therapy procedure 12/17/2019 [facility] (regime/therapy) 12:00:00 AM [facility] EDT Physical therapy procedure 12/17/2019 [facility] (regime/therapy) 12:00:00 AM [facility] EDT Physical therapy procedure 12/17/2019 [facility] (regime/therapy) 12:00:00 AM [facility] EDT Physical therapy procedure 12/17/2019 [facility] (regime/therapy) 12:00:00 AM [facility] EDT Physical therapy procedure 12/17/2019 [facility] (regime/therapy) 12:00:00 AM [facility] EDT Physical therapy procedure 12/17/2019 [facility] (regime/therapy) 12:00:00 AM Hospital EDT Plain chest X-ray (procedure) 12/15/2019 [place] 12:00:00 AM [facility] EDT Computed tomography of 12/15/2019 [place] cervical spine without 12:00:00 AM [facility] contrast EDT Computed tomography of head 12/15/2019 [place] without contrast 12:00:00 AM Hospital EDT Electrocardiographic procedure 12/15/2019 [place] (procedure) 12:00:00 AM Hospital EDT Plain chest X-ray (procedure) 12/15/2019 [place] 12:00:00 AM [facility] EDT Computed tomography of 12/15/2019 [place] cervical spine without 12:00:00 AM [facility] contrast EDT Computed tomography of head 12/15/2019 [place] without contrast 12:00:00 AM Hospital EDT Electrocardiographic procedure 12/15/2019 [place] (procedure) 12:00:00 AM Hospital EDT Plain chest X-ray (procedure) 12/15/2019 [place] 12:00:00 AM [facility] EDT Computed tomography of 12/15/2019 [place] cervical spine without 12:00:00 AM [facility] EDT Computed tomography of head 12/15/2019 [place] without contrast 12:00:00 AM Hospital EDT Electrocardiographic procedure 12/15/2019 [place] (procedure) 12:00:00 AM Hospital EDT Plain chest X-ray (procedure) 12/15/2019 [place] 12:00:00 AM Hospital EDT Computed tomography of 12/15/2019 [place] cervical spine without 12:00:00 AM [facility] contrast EDT Computed tomography of head 12/15/2019 [place] without contrast 12:00:00 AM Hospital EDT Electrocardiographic procedure 12/15/2019 [place] (procedure) 12:00:00 AM Hospital EDT Plain chest X-ray (procedure) 12/15/2019 [place] 12:00:00 AM Hospital EDT Computed tomography of 12/15/2019 [place] cervical spine without 12:00:00 AM [facility] contrast EDT Computed tomography of head 12/15/2019 [place] without contrast 12:00:00 AM Hospital EDT Electrocardiographic procedure 12/15/2019 [place] (procedure) 12:00:00 AM [facility] EDT Physical therapy procedure 12/03/2019 [facility] (regime/therapy) 12:00:00 AM [facility] EDT Physical therapy procedure 12/03/2019 [facility] (regime/therapy) 12:00:00 AM [facility] EDT Physical therapy procedure 12/03/2019 [facility] (regime/therapy) 12:00:00 AM Hospital EDT Electrocardiographic procedure 11/30/2019 [place] (procedure) 12:00:00 AM Hospital EDT Computed tomography of head 11/30/2019 [place] without contrast 12:00:00 AM Hospital EDT Electrocardiographic procedure 11/30/2019 [place] (procedure) 12:00:00 AM Hospital EDT Computed tomography of head 11/30/2019 [place] without contrast 12:00:00 AM Hospital EDT Electrocardiographic procedure 11/30/2019 [place] (procedure) 12:00:00 AM Hospital EDT Computed tomography of head 11/30/2019 [place] without contrast 12:00:00 AM Hospital EDT Ultrasonography of abdomen 11/28/2019 [facility] (procedure) 12:00:00 AM [facility] EDT Ultrasonography of abdomen 11/28/2019 [facility] (procedure) 12:00:00 AM [facility] EDT Ultrasonography of abdomen 11/28/2019 [facility] (procedure) 12:00:00 AM [facility] EDT Plain chest X-ray (procedure) 11/25/2019 [place] 12:00:00 AM [facility] EDT Plain chest X-ray (procedure) 11/25/2019 [place] 12:00:00 AM Hospital EDT Plain chest X-ray (procedure) 11/25/2019 [place] 12:00:00 AM [facility] EDT Physical therapy procedure 11/22/2019 [facility] (regime/therapy) 12:00:00 AM [facility] EDT Physical therapy procedure 11/22/2019 [facility] (regime/therapy) 12:00:00 AM [facility] EDT Physical therapy procedure 11/22/2019 [facility] (regime/therapy) 12:00:00 AM [facility] EDT Plain chest X-ray (procedure) 11/20/2019 [place] 12:00:00 AM [facility] EDT Electrocardiographic procedure 11/20/2019 [place] (procedure) 12:00:00 AM Hospital EDT Plain chest X-ray (procedure) 11/20/2019 [place] 12:00:00 AM [facility] EDT Electrocardiographic procedure 11/20/2019 [place] (procedure) 12:00:00 AM Hospital EDT Plain chest X-ray (procedure) 11/20/2019 [place] 12:00:00 AM [facility] EDT Electrocardiographic procedure 11/20/2019 [place] (procedure) 12:00:00 AM Hospital EDT Computed tomography of head 10/26/2019 [place] without contrast 12:00:00 AM Hospital EDT Electrocardiographic procedure 10/26/2019 [place] (procedure) 12:00:00 AM Hospital EDT Physical therapy procedure 06/19/2019 [facility] (regime/therapy) 12:00:00 AM Hospital EST Smoking cessation education 06/18/2019 [place] (procedure) 12:00:00 AM Hospital EST Electrocardiographic procedure 06/17/2019 [place] (procedure) 12:00:00 AM Hospital EST Diagnostic radiography of 06/17/2019 [facility] chest, combined 12:00:00 AM Hospital posteroanterior and lateral EST (procedure) Electrocardiographic procedure 05/25/2019 [place] (procedure) 12:00:00 AM Hospital EST Plain chest X-ray (procedure) 05/25/2019 [place] 12:00:00 AM [facility] EST Computed tomography of head 05/25/2019 [place] without contrast 12:00:00 AM Hospital EST Electrocardiographic procedure 05/25/2019 [place] (procedure) 12:00:00 AM Hospital EST Plain chest X-ray (procedure) 05/25/2019 [place] 12:00:00 AM [facility] EST Computed tomography of head 05/25/2019 [place] without contrast 12:00:00 AM Hospital EST Electrocardiographic procedure 05/21/2019 [place] (procedure) 12:00:00 AM Hospital EST Electrocardiographic procedure 05/21/2019 [place] (procedure) 12:00:00 AM Hospital EST Electrocardiographic procedure 05/21/2019 [place] (procedure) 12:00:00 AM Hospital EST Electrocardiographic procedure 05/21/2019 [place] (procedure) 12:00:00 AM Hospital EST Echocardiography (procedure) 05/20/2019 [place] 12:00:00 AM [facility] EST Electrocardiographic procedure 05/20/2019 [place] (procedure) 12:00:00 AM Hospital EST Echocardiography (procedure) 05/20/2019 [place] 12:00:00 AM [facility] EST Electrocardiographic procedure 05/20/2019 [place] (procedure) 12:00:00 AM Hospital EST Electrocardiographic procedure 05/19/2019 [place] (procedure) 12:00:00 AM Hospital EST Plain chest X-ray (procedure) 05/19/2019 [place] 12:00:00 AM [facility] EST Computed tomography of head 05/19/2019 [place] without contrast 12:00:00 AM Hospital EST Electrocardiographic procedure 05/19/2019 [place] (procedure) 12:00:00 AM Hospital EST Plain chest X-ray (procedure) 05/19/2019 [place] 12:00:00 AM [facility] EST Computed tomography of head 05/19/2019 [place] without contrast 12:00:00 AM Hospital EST Electrocardiographic procedure 05/17/2019 [place] (procedure) 12:00:00 AM Hospital EST INJECTION, THIAMINE HCL, 100 05/17/2019 [facility] 12:00:00 AM [facility] EST NORMAL SALINE SOLUTION INFUS 05/17/2019 [place] 12:00:00 AM Hospital EST INJECTION, LORAZEPAM, 2 MG 05/17/2019 [facility] 12:00:[facility] EST Electrocardiogram tracing 05/17/2019 [facility] 12:[facility] EST Assay of troponin qual 05/17/2019 [place] 12:00:00 AM [facility] EST Assay of phosphorus 05/17/[address] [facility] 12[facility] EST Assay of blood osmolality 05/17/2019 [facility] 12:00:[facility] EST Assay of magnesium 05/17/2019 [facility] 12:00:00 AM [facility] EST Assay of lactic acid 05/17/2019 [facility] 12:00:[facility] AM [facility] EST Glycosylated hemoglobin test 05/17/2019 [place] 12:00:00 AM [facility] EST Reagent strip/blood glucose 05/17/2019 [place] 12:00:00 AM [facility] EST Electrolyte panel 05/17/2019 [facility] 12[facility] EST Drug test prsmv chem anlyzr 05/17/2019 [place] 12:00:00 AM [facility] EST Comprehen metabolic panel 05/17/2019 [facility] 12:00:[facility] EST Drug test prsmv chem anlyzr 05/17/2019 [place] 12:00:00 AM [facility] EST Metabolic panel total ca 05/17/2019 [facility] 12:00:[facility] EST Complete cbc w/auto diff wbc 05/17/2019 [place] 12:00:00 AM [facility] EST Urinalysis auto w/scope 05/17/2019 [facility] 12:00:[facility] EST Hydrate iv infusion add-on 05/17/2019 [facility] 12:00:00 AM [facility] EST Tx/pro/dx inj new drug addon 05/17/2019 [place] 12:00:00 AM [facility] EST Tx/pro/dx inj same drug train operator 05/17/2019 [place] 12:00:00 AM [facility] EST Ther/proph/diag inj iv push 05/17/2019 [place] 12:00:00 AM [facility] EST Emergency dept visit 05/17/2019 [facility] 12:00:00 AM [facility] EST Electrocardiographic procedure 05/17/2019 [place] (procedure) 12:00:00 AM Hospital EST INJECTION, THIAMINE HCL, 100 05/17/2019 [facility] 12:00:00 AM [facility] EST NORMAL SALINE SOLUTION INFUS 05/17/2019 [place] 12:00:00 AM Hospital EST INJECTION, LORAZEPAM, 2 MG 05/17/2019 [facility] 12:00:00 AM [facility] EST Electrocardiogram tracing 05/17/2019 [facility] 12:00:00 AM [facility] EST Assay of troponin qual 05/17/2019 [place] 12:00:00 AM [facility] EST Assay of phosphorus 05/17/[address] [facility] 12:[facility] EST Assay of blood osmolality 05/17/2019 [facility] 12:00:00 AM [facility] EST Assay of magnesium 05/17/2019 [facility] 12:00:00 AM [facility] EST Assay of lactic acid 05/17/2019 [facility] 12:00:00 AM [facility] EST Glycosylated hemoglobin test 05/17/2019 [place] 12:00:00 AM Hospital EST Reagent strip/blood glucose 05/17/2019 [place] 12:00:00 AM [facility] EST Electrolyte panel 05/17/2019 [facility] 12:[facility] EST Drug test prsmv chem anlyzr 05/17/2019 [place] 12:00:00 AM Hospital EST Comprehen metabolic panel 05/17/2019 [facility] 12:00:[facility] EST Drug test prsmv chem anlyzr 05/17/2019 [place] 12:00:00 AM Hospital EST Metabolic panel total ca 05/17/2019 [facility] 12:00:[facility] AM [facility] EST Complete cbc w/auto diff wbc 05/17/2019 [place] 12:00:00 AM [facility] EST Urinalysis auto w/scope 05/17/2019 [facility] 12:00:00 AM [facility] EST Hydrate iv infusion add-on 05/17/2019 [facility] 12:00:00 AM [facility] EST Tx/pro/dx inj new drug addon 05/17/2019 [place] 12:00:00 AM [facility] EST Tx/pro/dx inj same drug train operator 05/17/2019 [place] 12:00:00 AM [facility] EST Ther/proph/diag inj iv push 05/17/2019 [place] 12:00:00 AM Hospital EST Emergency dept visit 05/17/2019 [facility] 12:00:00 AM [facility] EST Electrocardiographic procedure 05/17/2019 [place] (procedure) 12:00:00 AM Hospital EST Reagent strip/blood glucose 04/29/2019 [place] 12:00:00 AM [facility] EST Metabolic panel total ca 04/29/2019 [facility] 12:00:[facility] AM [facility] EST Mr-staph dna amp probe 04/29/2019 [place] 12:00:00 AM [facility] EST Complete cbc automated 04/29/2019 [place] 12:00:00 AM Hospital EST Emergency dept visit 04/29/2019 [facility] 12:00:00 AM [facility] EST Reagent strip/blood glucose 04/29/2019 [place] 12:00:00 AM Hospital EST Metabolic panel total ca 04/29/2019 [facility] 12:00:00 AM [facility] EST Mr-staph dna amp probe 04/29/2019 [place] 12:00:00 AM Hospital EST Complete cbc automated 04/29/2019 [place] 12:00:00 AM Hospital EST Emergency dept visit 04/29/2019 [facility] 12:00:00 AM [facility] EST Reagent strip/blood glucose 04/29/2019 [place] 12:00:00 AM Hospital EST Metabolic panel total ca 04/29/2019 [facility] 12:00:00 AM [facility] EST Mr-staph dna amp probe 04/29/2019 [place] 12:00:00 AM [facility] EST Complete cbc automated 04/29/2019 [place] 12:00:00 AM Hospital EST Emergency dept visit 04/29/2019 [facility] 12:00:00 AM [facility] EST METOCLOPRAMIDE HCL INJECTION 04/16/2019 [place] 12:00:00 AM Hospital EST Tx/pro/dx inj new drug addon 04/16/2019 [place] 12:00:00 AM [facility] EST Ther/proph/diag inj iv push 04/16/2019 [place] 12:00:00 AM Hospital EST Reagent strip/blood glucose 04/16/2019 [place] 12:00:00 AM Hospital EST Metabolic panel total ca 04/16/2019 [facility] 12:00:[facility] AM [facility] EST Mr-[facility]aph dna amp probe 04/16/2019 [place] 12:00:00 AM [facility] EST Complete cbc w/auto diff wbc 04/16/2019 [place] 12:00:00 AM [facility] EST Urinalysis auto w/o scope 04/16/2019 [facility] 12:00:00 [facility] EST Emergency dept visit 04/16/2019 [facility] 12:00:[facility] AM [facility] EST Diagnostic radiography of 04/06/2019 [facility], combined 12:00:00 AM [facility] posteroanterior and lateral EST (procedure) Emergency dept visit 04/06/2019 [facility] 12:00:00 AM [facility] EST Diagnostic radiography of 04/06/2019 [facility], combined 12:00:00 AM Hospital posteroanterior and lateral EST (procedure) Emergency dept visit 04/06/2019 [facility] 12:00:00 AM [facility] EST Diagnostic radiography of 04/06/2019 [facility], combined 12:00:00 AM Hospital posteroanterior and lateral EST (procedure) Reagent strip/blood glucose 03/09/2019 [place] 12:00:00 AM [facility] EST Drug test prsmv chem anlyzr 03/09/2019 [place] 12:00:00 AM Hospital EST Comprehen metabolic panel 03/09/2019 [facility] 12:00:00 AM [facility] EST Drug test prsmv chem anlyzr 03/09/2019 [place] 12:00:00 AM [facility] EST Mr-staph dna amp probe 03/09/2019 [place] 12:00:00 AM [facility] EST Complete cbc w/auto diff wbc 03/09/2019 [place] 12:00:00 AM [facility] EST Urinalysis auto w/o scope 03/09/2019 [facility] 12:00:00 [facility] EST Emergency dept visit 03/09/2019 [facility] 12:00:[facility] EST Electrocardiographic procedure 03/02/2019 [place] (procedure) 12:00:00 AM Hospital EST Electrocardiographic procedure 03/02/2019 [place] (procedure) 12:00:00 AM Hospital EST Computed tomography of head 03/01/2019 [place] without contrast 12:00:00 AM Hospital EST Electrocardiographic procedure 03/01/2019 [place] (procedure) 12:00:00 AM Hospital EST Plain chest X-ray (procedure) 03/01/2019 [place] 12:00:00 AM [facility] EST Computed tomography of head 03/01/2019 [place] without contrast 12:00:00 AM Hospital EST Electrocardiographic procedure 03/01/2019 [place] (procedure) 12:00:00 AM Hospital EST Plain chest X-ray (procedure) 03/01/2019 [facility] [facility] AM [facility] EST Plain chest X-ray (procedure) 02/14/2019 [facility] 12:[facility] AM [facility] EDT Computed tomography of head 02/14/2019 [place] without contrast 12:00:00 AM Hospital EDT Electrocardiographic procedure 02/14/2019 [facility] (procedure) 12:00:00 AM Hospital EDT INSULIN INJECTION 02/14/2019 [place] 12[facility] AM [facility] EDT INSULIN INJECTION 02/14/2019 [place] 12:[facility]:[address] head/brain w/o dye 02/14/2019 [place] 12:00:00 AM [facility] EDT X-ray exam chest 1 view 02/14/2019 [facility] 12[facility] AM [facility] EDT Electrocardiogram tracing 02/14/2019 [facility] 12:00:00 AM Hospital EDT Assay of lipase 02/14/2019 [place] 12:00:00 AM Hospital EDT Reagent strip/blood glucose 02/14/2019 [place] 12:00:00 AM Hospital EDT Drug test prsmv chem anlyzr 02/14/2019 [place] 12:00:00 AM Hospital EDT Comprehen metabolic panel 02/14/2019 [facility] 12:00:00 AM [facility] EDT Drug test prsmv chem anlyzr 02/14/2019 [place] 12:00:00 AM Hospital EDT Metabolic panel total ca 02/14/2019 [facility] 12:00:00 AM Hospital EDT Assay of ammonia 02/14/2019 [place] 12:[facility]:00 AM [facility] EDT Mr-staph dna amp probe 02/14/2019 [facility] 12:00:00 AM Hospital EDT Complete cbc automated 02/14/2019 [place] 12:00:00 AM Hospital EDT Urinalysis auto w/o scope 02/14/2019 [facility] 12:00:00 AM Hospital EDT Hydrate iv infusion add-on 02/14/2019 [facility] 12:00:00 AM Hospital EDT Hydrate iv infusion add-on 02/14/2019 [facility] 12:00:00 AM Hospital EDT Tx/pro/dx inj same drug train operator 02/14/2019 [place] 12:00:00 AM Hospital EDT Tx/pro/dx inj same drug train operator 02/14/2019 [place] 12:00:00 AM Hospital EDT Ther/proph/diag inj iv push 02/14/2019 [place] 12:00:00 AM Hospital EDT Emergency dept visit 02/14/2019 [facility] 12:00:00 AM Hospital EDT Plain chest X-ray (procedure) 02/14/2019 [place] 12:00:00 AM Hospital EDT Computed tomography of head 02/14/2019 [place] without contrast 12:00:00 AM Hospital EDT Electrocardiographic procedure 02/14/2019 [place] (procedure) 12:00:00 AM Hospital EDT INSULIN INJECTION 02/14/2019 [place] 12:[facility]:00 AM Hospital EDT INSULIN INJECTION 02/14/2019 [place] 12:00:[address] head/brain w/o dye 02/14/2019 [place] 12:00:00 AM Hospital EDT X-ray exam chest 1 view 02/14/2019 [facility] 12:00:00 AM Hospital EDT Electrocardiogram tracing 02/14/2019 [facility] 12:00:00 AM Hospital EDT Assay of lipase 02/14/2019 [place] 12:00:00 AM Hospital EDT Reagent strip/blood glucose 02/14/2019 [place] 12:00:00 AM Hospital EDT Drug test prsmv chem anlyzr 02/14/2019 [place] 12:00:00 AM Hospital EDT Comprehen metabolic panel 02/14/2019 [facility] 12:00:00 AM Hospital EDT Drug test prsmv chem anlyzr 02/14/2019 [place] 12:00:00 AM Hospital EDT Metabolic panel total ca 02/14/2019 [facility] 12:00:00 AM Hospital EDT Assay of ammonia 02/14/2019 [facility] 12:00:00 AM Hospital EDT Mr-staph dna amp probe 02/14/2019 [place] 12:00:00 AM Hospital EDT Complete cbc automated 02/14/2019 [place] 12:00:00 AM Hospital EDT Urinalysis auto w/o scope 02/14/2019 [facility] 12:00:00 AM Hospital EDT Hydrate iv infusion add-on 02/14/2019 [facility] 12:00:00 AM Hospital EDT Hydrate iv infusion add-on 02/14/2019 [facility] 12:00:00 AM Hospital EDT Tx/pro/dx inj same drug train operator 02/14/2019 [place] 12:00:00 AM Hospital EDT Tx/pro/dx inj same drug train operator 02/14/2019 [place] 12:00:00 AM Hospital EDT Ther/proph/diag inj iv push 02/14/2019 [place] 12:00:00 AM Hospital EDT Emergency dept visit 02/14/2019 [place] [facility] 12:00:00 AM Hospital EDT Plain chest X-ray (procedure) 02/14/2019 [place] 12:00:00 AM Hospital EDT Computed tomography of head 02/14/2019 [place] without contrast 12:00:00 AM Hospital EDT Electrocardiographic procedure 02/14/2019 [place] (procedure) 12:00:00 AM Hospital EDT Results ID Date Data Source [id number] 01/21/2020 04:34:00 PM EDT [facility] NOTIFICATION AND READ BACK OF CRITICAL R ESULTS TO NADIR GAGNON,LIME MIXER AT 1624 ON 01/18/20 BY NAGI NAVARRO.REPORTED CRI TICAL VALUES SHOULD BE INTERPRETED WITHIN CLINICAL CONTEXT. Name Value Range Interpretation Description Data Sup porting Code Source(s) Document(s ) Lactate 3.5 [facility] [Moles/volum mmol/L Hospital e] in Serum or Plasma ID Date Data Source [id number] 01/21/2020 11:27:00 AM [facility] Pediatric Allergist:YOSI JUAREZ Name Value Range Interpretation Description Data Sup porting Code Source(s) Document(s ) Glucose 289 mg/dL [facility] [Mass/volume] Hospital in Capillary blood by Glucometer ID Date Data Source [id number] 01/21/2020 08:54:00 AM [facility] Name Value Range Interpretation Description Data Sup porting Code Source(s) Document(s ) Phosphate 2.6 mg/dL [facility] [Mass/volume] Hospital in Serum or Plasma ID Date Data Source [id number] 01/21/2020 08:54:00 AM [facility] Name Value Range Interpretation Description Data Sup porting Code Source(s) Document(s ) Magnesium 1.8 mg/dL [facility] [Mass/volume] Hospital in Serum or Plasma ID Date Data Source [id number] 01/21/2020 08:54:00 AM [facility] Name Value Range Interpretation Description Data Sup porting Code Source(s) Document(s ) Aspartate 52 U/L [facility] amin[facility] [Enzymatic Hospital activity/volume] in Serum or Plasma ID Date Data Source [id number] 01/21/2020 08:54:00 AM [facility] Name Value Range Interpretation Description Data Sup porting Code Source(s) Document(s ) Alanine 28 U/L [facility] amin[facility] [Enzymatic Hospital activity/volume] in Serum or Plasma ID Date Data Source [id number] 01/21/2020 08:54:00 AM [facility] Name Value Range Interpretation Description Data Sup porting Code Source(s) Document(s ) Alkaline 76 U/L [facility] phosphatase Hospital [Enzymatic activity/volume ] in Serum or Plasma ID Date Data Source [id number] 01/21/2020 08:54:00 AM EDT [facility] Name Value Range Interpretation Description Data Sup porting Code Source(s) Document(s ) Bilirubin.t 1.5 mg/dL [facility] [Mass/volum e] in Serum or Plasma ID Date Data Source [id number] 01/21/2020 08:54:00 AM EDT [facility] Name Value Range Interpretation Code Description Data Bryanna rce(s) Supporting Document(s ) [facility]in[facility]ob [facility]Mass [facility] Ratio] in Serum or Plasma ID Date Data Source [id number] 01/21/2020 08:54:00 AM EDT [facility] Name Value Range Interpretation Description Data Sup porting Code Source(s) Document(s ) Albumin 2.6 g/dL [facility] [Mass/volume Hospital ] in Serum or Plasma ID Date Data Source [id number] 01/21/2020 08:54:00 AM EDT [facility] Name Value Range Interpretation Description Data Sup porting Code Source(s) Document(s ) Protein 5.4 g/dL [facility] [Mass/volume Hospital ] in Serum or Plasma ID Date Data Source [id number] 01/21/2020 08:54:00 AM EDT [facility] Name Value Range Interpretation Description Data Sup porting Code Source(s) Document(s ) Calcium 8.5 mg/dL [facility] [Mass/volume Hospital ] in Serum or Plasma ID Date Data Source [id number] 01/21/2020 08:54:00 AM EDT [facility] Name Value Range Interpretation Code Description Data Bryanna rce(s) Supporting Document(s ) Urea 13.3 [facility] nitrogen/Cre Hospital atinine [Mass Ratio] in Serum or Plasma ID Date Data Source [id number] 01/21/2020 08:54:00 AM EDT [facility] Name Value Range Interpretation Description Data Sup porting Code Source(s) Document(s ) Creatinine 0.6 mg/dL [facility] [Mass/volume] Hospital in Serum or Plasma ID Date Data Source [id number] 01/21/2020 08:54:00 AM EDT [facility] Name Value Range Interpretation Description Data Sup porting Code Source(s) Document(s ) Urea nitrogen 8 mg/dL [facility] [Mass/volume] Hospital in Serum or Plasma ID Date Data Source [id number] 01/21/2020 08:54:00 AM EDT [facility] Value Range Interpretation Code Description Data Bryanna rce(s) Supporting Document(s ) Anion gap in 7 [facility] Serum or [facility] Plasma ID Date Data Source [id number] 01/21/2020 08:54:00 AM EDT [facility] Name Value Range Interpretation Description Data Sup porting Code Source(s) Document(s ) Carbon 31 mmol/L [facility] dioxide, Hospital total [Moles/volu me] in Serum or Plasma ID Date Data Source [id number] 01/21/2020 08:54:00 AM EDT [facility] Value Range Interpretation Description Data Sup porting Code Source(s) Document(s ) Chloride 107 [facility] [Moles/volum mmol/L Hospital e] in Serum or Plasma ID Date Data Source [id number] 01/21/2020 08:54:00 AM EDT [facility] Name Value Range Interpretation Description Data Sup porting Code Source(s) Document(s ) Potassium 3.9 [facility] [Moles/volume mmol/L Hospital ] in Serum or Plasma ID Date Data Source [id number] 01/21/2020 08:54:00 AM EDT [facility] Name Value Range Interpretation Description Data Sup porting Code Source(s) Document(s ) Sodium 141 mmol/L [facility] [Moles/volu Hospital nh] in Serum or Plasma ID Date Data Source [id number] 01/21/2020 08:54:00 AM EDT [facility] Value Range Interpretation Description Data Sup porting Code Source(s) Document(s ) Glucose 126 mg/dL [facility] [Mass/volume Hospital ] in Serum or Plasma ID Date Data Source [id number] 01/21/2020 08:54:00 AM EDT [facility] Value Range Interpretation Description Data Sup porting Code Source(s) Document(s ) Manual MANUAL [facility] differential Hospital performed [Presence] in Blood ID Date Data Source [id number] 01/21/2020 08:54:00 AM EDT [facility] Value Range Interpretation Code Description Data Bryanna rce(s) Supporting Document(s ) Cells 100 [facility] Hospital Total [#] in Blood ID Date Data Source [id number] 01/21/2020 08:54:00 AM EDT [facility] Value Range Interpretation Code Description Data Supporting Source(s) Document(s ) PLATELET NORMAL [facility] Hospital ID Date Data Source [id number] 01/21/2020 08:54:00 AM EDT [facility] Value Range Interpretation Code Description Data Supporting Source(s) Document(s ) POLYCHROMASIA 1+ [facility] ID Date Data Source [id number] 01/21/2020 08:54:00 AM EDT [facility] Value Range Interpretation Code Description Data Bryanna rce(s) Supporting Document(s ) HYPOCHROMIA 1+ [facility] ID Date Data Source [id number] 01/21/2020 08:54:00 AM EDT [facility] Name Value Range Interpretation Description Data Sup porting Code Source(s) Document(s ) Eosinophils 0.30 [facility] [#/volume] in 10*3/uL Hospital Blood by Manual count ID Date Data Source [id number] 01/21/2020 08:54:00 AM EDT [facility] Name Value Range Interpretation Description Data Sup porting Code Source(s) Document(s ) Monocytes 0.12 [facility] [#/volume] in 10*3/uL Hospital Blood by Manual count ID Date Data Source [id number] 01/21/2020 08:54:00 AM EDT [facility] Name Value Range Interpretation Description Data Sup porting Code Source(s) Document(s ) Lymphocytes 1.77 [facility] [#/volume] in 10*3/uL Hospital Blood by Manual count ID Date Data Source [id number] 01/21/2020 08:54:00 AM EDT [facility] Name Value Range Interpretation Description Data Sup porting Code Source(s) Document(s ) Neutrophils 0.81 [facility] [#/volume] in 10*3/uL Hospital Blood by Manual count ID Date Data Source [id number] 01/21/2020 08:54:00 AM EDT [facility] Value Range Interpretation Description Data Sup porting Code Source(s) Document(s ) Eosinophils/100 10 % [facility] leukocytes in Hospital Blood by Manual count ID Date Data Source [id number] 01/21/2020 08:54:00 AM EDT [facility] Name Value Range Interpretation Description Data Sup porting Code Source(s) Document(s ) Monocytes/100 4 % [facility] leukocytes in Hospital Blood by Manual count ID Date Data Source [id number] 01/21/2020 08:54:00 AM EDT [facility] Name Value Range Interpretation Description Data Sup porting Code Source(s) Document(s ) Lymphocytes/100 59 % [facility] leukocytes in Hospital Blood by Manual count ID Date Data Source [id number] 01/21/2020 08:54:00 AM EDT [facility] Value Range Interpretation Description Data Sup porting Code Source(s) Document(s ) Neutrophils/100 27 % [facility] leukocytes in Hospital Blood by Manual count ID Date Data Source [id number] 01/21/2020 08:54:00 AM EDT [facility] Value Range Interpretation Description Data Sup porting Code Source(s) Document(s ) Platelet mean 11.2 fL [facility] volume Hospital [Entitic volume] in Blood by Automated count ID Date Data Source [id number] 01/21/2020 08:54:00 AM EDT [facility] Value Range Interpretation Description Data Sup porting Code Source(s) Document(s ) Platelets 149 [facility] [#/volume] in 10*3/uL Hospital Blood by Automated count ID Date Data Source [id number] 01/21/2020 08:54:00 AM EDT [facility] Value Range Interpretation Description Data Sup porting Code Source(s) Document(s ) Erythrocyte 14.2 % [facility] distribution Hospital width [Ratio] by Automated count ID Date Data Source [id number] 01/21/2020 08:54:00 AM EDT [facility] Value Range Interpretation Description Data Sup porting Code Source(s) Document(s ) Erythrocyte mean 32.9 [facility] corpuscular g/dL Hospital hemoglobin concentration [Mass/volume] by Automated count ID Date Data Source [id number] 01/21/2020 08:54:00 AM EDT [facility] Value Range Interpretation Description Data Sup porting Code Source(s) Document(s ) Erythrocyte 30.1 pg [facility] Hospital corpuscular hemoglobin [Entitic mass] by Automated count ID Date Data Source [id number] 01/21/2020 08:54:00 AM EDT [facility] Value Range Interpretation Description Data Sup porting Code Source(s) Document(s ) Erythrocyte 91.5 fL [facility] mean Hospital corpuscular volume [Entitic volume] by Automated count ID Date Data Source [id number] 01/21/2020 08:54:00 AM EDT [facility] Value Range Interpretation Description Data Sup porting Code Source(s) Document(s ) Hematocrit 34.3 % [facility] [Volume Hospital Fraction] of Blood by Automated count ID Date Data Source [id number] 01/21/2020 08:54:00 AM EDT [facility] Value Range Interpretation Description Data Sup porting Code Source(s) Document(s ) Hemoglobin 11.3 g/dL [facility] [Mass/volume] Hospital in Blood ID Date Data Source [id number] 01/21/2020 [facility] Interpretation Description Data Sup porting Code Source(s) Document(s ) Erythrocytes 3.75 [facility] [#/volume] in 10*6/uL Hospital Blood by Automated count ID Date Data Source [id number] 01/21/2020 08:54:00 AM EDT [facility] Value Range Interpretation Description Data Sup porting Code Source(s) Document(s ) Leukocytes 3.0 [facility] [#/volume] in 10*3/uL Hospital Blood by Automated count ID Date Data Source [id number] 01/20/2020 04:50:00 PM EDT [facility] Value Range Interpretation Description Data Sup porting Code Source(s) Document(s ) GLUCOSE RN Notified [facility] COMMENT Hospital ID Date Data Source [id number] 01/20/2020 06:19:00 AM EDT [facility] Value Range Interpretation Code Description Data Supporting Source(s) Document(s ) NUCLEATED RBCS 0.0 % [facility] (AUTO Hospital DIFF%)DIS ID Date Data Source [id number] 01/20/2020 06:19:00 AM EDT [facility] Value Range Interpretation Description Data Sup porting Code Source(s) Document(s ) Differential AUTOMATED [facility] cell count [facility] method - Blood ID Date Data Source [id number] 01/20/2020 06:19:00 AM EDT [facility] Value Range Interpretation Description Data Sup porting Code Source(s) Document(s ) Immature 0.00 [facility] granulocytes 10*3/uL Hospital [#/volume] in Blood by Automated count ID Date Data Source [id number] 01/20/2020 06:19:00 AM EDT [facility] Value Range Interpretation Description Data Sup porting Code Source(s) Document(s ) Basophils 0.02 [facility] [#/volume] in 10*3/uL Hospital Blood by Automated count ID Date Data Source [id number] 01/20/2020 06:19:00 AM EDT [facility] Value Range Interpretation Description Data Sup porting Code Source(s) Document(s ) Eosinophils 0.19 [place] [#/volume] in 10*3/uL Hospital Blood by Automated count ID Date Data Source [id number] 01/20/2020 06:19:00 AM EDT [facility] Value Range Interpretation Description Data Sup porting Code Source(s) Document(s ) Monocytes 0.35 [facility] [#/volume] in 10*3/uL Hospital Blood by Automated count ID Date Data Source [id number] 01/20/2020 06:19:00 AM EDT [facility] Name Value Range Interpretation Description Data Sup porting Code Source(s) Document(s ) Lymphocytes 2.02 [place] [#/volume] in 10*3/uL Hospital Blood by Automated count ID Date Data Source [id number] 01/20/2020 06:19:00 AM EDT [facility] Value Range Interpretation Description Data Sup porting Code Source(s) Document(s ) Neutrophils 0.93 [place] [#/volume] in 10*3/uL [facility] Blood by Automated count ID Date Data Source [id number] 01/20/2020 06:19:00 AM EDT [facility] Value Range Interpretation Description Data Sup porting Code Source(s) Document(s ) Nucleated 0.0 % [facility] erythrocytes/10 Hospital 0 leukocytes [Ratio] in Blood by Automated count ID Date Data Source [id number] 01/20/2020 06:19:00 AM EDT [facility] Value Range Interpretation Description Data Sup porting Code Source(s) Document(s ) Immature 0.0 % [facility] granulocytes/10 Hospital 0 leukocytes in Blood by Automated count ID Date Data Source [id number] 01/20/2020 06:19:00 AM EDT [facility] Value Range Interpretation Description Data Sup porting Code Source(s) Document(s ) Basophils/100 0.6 % [facility] leukocytes in Hospital Blood by Automated count ID Date Data Source [id number] 01/20/2020 06:19:00 AM EDT [facility] Value Range Interpretation Description Data Sup porting Code Source(s) Document(s ) Eosinophils/100 5.4 % [facility] leukocytes in Hospital Blood by Automated count ID Date Data Source [id number] 01/20/2020 06:19:00 AM EDT [facility] Name Value Range Interpretation Description Data Sup porting Code Source(s) Document(s ) Monocytes/100 10.0 % [place] leukocytes in Hospital Blood by Automated count ID Date Data Source [id number] 01/20/2020 06:19:00 AM EDT [facility] Name Value Range Interpretation Description Data Sup porting Code Source(s) Document(s ) Lymphocytes/10 57.5 % [facility] 0 leukocytes Hospital in Blood by Automated count ID Date Data Source [id number] 01/20/2020 06:19:00 AM EDT [facility] Name Value Range Interpretation Description Data Sup porting Code Source(s) Document(s ) Neutrophils/10 26.5 % [facility] 0 leukocytes Hospital in Blood by Automated count ID Date Data Source [id number] 01/19/2020 10:29:00 AM EDT [facility] Value Range Interpretation Description Data Sup porting Code Source(s) Document(s ) Ammonia 47 mmol/L [facility] [Moles/volum Hospital e] in Plasma ID Date Data Source [id number] 01/18/2020 01:42:00 PM EDT [facility] Value Range Interpretation Code Description Data Bryanna rce(s) Supporting Document(s ) ABG TEMP 97.7 [facility] ID Date Data Source [id number] 01/18/2020 01:42:00 PM EDT [facility] Value Range Interpretation Code Description Data Bryanna rce(s) Supporting Document(s ) FIO2 21 % [facility] ID Date Data Source [id number] 01/18/2020 01:42:00 PM EDT [facility] Value Range Interpretation Code Description Data Bryanna rce(s) Supporting Document(s ) ABG BE -12.8 [facility] mmol/L Hospital ID Date Data Source [id number] 01/18/2020 01:42:00 PM EDT [facility] Value Range Interpretation Code Description Data Bryanna rce(s) Supporting Document(s ) ABG O2SAT 82 % [facility] ID Date Data Source [id number] 01/18/2020 01:42:00 PM EDT [facility] Value Range Interpretation Code Description Data Bryanna rce(s) Supporting Document(s ) ABG HCO3 13 mmol/L [facility] ID Date Data Source [id number] 01/18/2020 01:42:00 PM EDT [facility] Value Range Interpretation Code Description Data Bryanna rce(s) Supporting Document(s ) ABG PO2 53 mm[Hg] [facility] ID Date Data Source [id number] 01/18/2020 01:42:00 PM EDT [facility] Value Range Interpretation Code Description Data Bryanna rce(s) Supporting Document(s ) ABG PCO2 30 mm[Hg] [facility] ID Date Data Source [id number] 01/18/2020 01:42:00 PM EDT [facility] Value Range Interpretation Code Description Data Bryanna rce(s) Supporting Document(s ) ABG PH 7.26 [facility] ID Date Data Source [id number] 01/18/2020 01:42:00 PM EDT [facility] Value Range Interpretation Code Description Data Bryanna rce(s) Supporting Document(s ) ABG MODE Room Air [facility] ID Date Data Source [id number] 01/18/2020 01:42:00 PM EDT [facility] Value Range Interpretation Description Data Sup porting Code Source(s) Document(s ) ABG SITE Peripheral [facility] Hospital ID Date Data Source [id number] 01/18/2020 01:42:00 PM EDT [facility] Name Value Range Interpretation Code Description Data Bryanna rce(s) Supporting Document(s ) JORGE TEST POSITIVE [facility] ID Date Data Source [id number] 01/18/2020 01:42:00 PM EDT [facility] Name Value Range Interpretation Code Description Data Bryanna rce(s) Supporting Document(s ) READ BACK Yes/MD [facility] ID Date Data Source [id number] 01/18/2020 01:42:00 PM EDT [facility] Name Value Range Interpretation Code Description Data Bryanna rce(s) Supporting Document(s ) NOTE WHO [facility] Date Data Source [id number] 01/18/2020 01:42:00 PM EDT [facility] Name Value Range Interpretation Description Data Sup porting Code Source(s) Document(s ) IONIZED 1.46 [facility] CALCIUM mmol/L Hospital ID Date Data Source [id number] 01/18/2020 01:42:00 PM EDT [facility] Value Range Interpretation Code Description Data Supporting Source(s) Document(s ) METHEMOGLOBIN 0.7 % [facility] ID Date Data Source [id number] 01/18/2020 01:42:00 PM EDT [facility] Name Value Range Interpretation Description Data Sup porting Code Source(s) Document(s ) CARBOXYHEMOGLOBIN 0.7 % [facility] ID Date Data Source [id number] 01/18/2020 01:29:00 PM EDT [facility] CUT-OFF >= 25 NG/ML.THE FINDINGS OF THE URINE DRUG SCREEN ARE USED SOLELY FOR PATIENT MANAGEMENT AND GUIDANCE. THE RESULTS FREEDOM ULD NOT BE USED FOR FORENSIC PURPOSE. ANY CLINICALLY UNSUSPECTED POSITIVE DRUG SCR EEN CAN BE CONFIRMED BY CALLING THE LABORATORY 3 DAYS WITHIN RECEIPT OF REPO RT. Name Value Range Interpretation Code Description Data Bryanna rce(s) Supporting Document(s ) PCP (UR) NEGATIVE [facility] ID Date Data Source [id number] 01/18/2020 01:29:00 PM EDT [facility] CUT-OFF >= 50 NG/ML. Name Value Range Interpretation Code Description Data Bryanna rce(s) Supporting Document(s ) THC (UR) NEGATIVE [facility] ID Date Data Source [id number] 01/18/2020 01:29:00 PM EDT [facility] CUT-OFF >= 300 NG/ML. Name Value Range Interpretation Description Data Sup porting Code Source(s) Document(s ) OPIATES (UR) NEGATIVE [facility] ID Date Data Source [id number] 01/18/2020 01:29:00 PM EDT [facility] CUT-OFF >= 300 NG/ML. Name Value Range Interpretation Description Data Sup porting Code Source(s) Document(s ) COCAINE (UR) NEGATIVE [facility] ID Date Data Source [id number] 01/18/2020 01:29:00 PM EDT [facility] CUT-OFF >= 200 NG/ML. Name Value Range Interpretation Description Data Sup porting Code Source(s) Document(s ) BENZODIAZEPINES NEGATIVE [place] (UR) [facility] ID Date Data Source [id number] 01/18/2020 01:29:00 PM EDT [facility] CUT-OFF >= 200 NG/ML. Name Value Range Interpretation Description Data Sup porting Code Source(s) Document(s ) BARBITURATES NEGATIVE [facility] (UR) Hospital ID Date Data Source [id number] [facility] Name Value Range Interpretation Description Data Sup porting Code Source(s) Document(s ) AMPHETAMINES NEGATIVE [facility] (UR) Hospital ID Date Data Source [id number] 01/18/2020 01:29:00 PM EDT [facility] Name Value Range Interpretation Description Data Sup porting Code Source(s) Document(s ) Epithelial 3+ [facility] cells.squamous Hospital [#/area] in Urine sediment by Microscopy high power field ID Date Data Source [id number] 01/18/2020 01:29:00 PM EDT [facility] Name Value Range Interpretation Description Data Sup porting Code Source(s) Document(s ) Erythrocytes 0-3 [facility] [#/area] in /[HPF] Hospital Urine sediment by Microscopy high power field ID Date Data Source [id number] [facility] Value [facility] Interpretation Description Data Sup porting Code Source(s) Document(s ) Leukocytes 0-3 [facility] [#/area] in /[HPF] Hospital Urine sediment by Microscopy high power field ID Date Data Source [id number] 01/18/2020 01:29:00 PM EDT [facility] Name Value Range Interpretation Description Data Sup porting Code Source(s) Document(s ) Leukocyte NEGATIVE [facility] Hospital [Presence] in Urine by Test strip ID Date Data Source [id number] 01/18/2020 [facility] Value Range Interpretation Description Data Sup porting Code Source(s) Document(s ) URINE NEGATIVE [facility] NITRITES Hospital ID Date Data Source [id number] 01/18/2020 01:29:00 PM EDT [facility] Name Value Range Interpretation Description Data Sup porting Code Source(s) Document(s ) Erythrocytes NEGATIVE [facility] [#/volume] in Hospital Urine by Test strip ID Date Data Source [id number] 01/18/2020 01:29:00 PM EDT [facility] Name Value Range Interpretation Code Description Data Bryanna rce(s) Supporting Document(s ) Bilirubin. NEGATIVE [facility] total Hospital [Presence] in Urine by Test strip ID Date Data Source [id number] 01/18/2020 01:29:00 PM EDT [facility] Name Value Range Interpretation Description Data Sup porting Code Source(s) Document(s ) Urobilinogen 0.2 [facility] [Units/volume] mg/dL Hospital in Urine by Test strip ID Date Data Source [id number] 01/18/2020 01:29:00 PM EDT [facility] Name Value Range Interpretation Code Description Data Bryanna rce(s) Supporting Document(s ) Ketones 4+ [facility] [Mass/volume Hospital ] in Urine by Test strip ID Date Data Source [id number] 01/18/2020 01:29:00 PM EDT [facility] Name Value Range Interpretation Code Description Data Bryanna rce(s) Supporting Document(s ) Glucose 3+ [facility] [Mass/volume Hospital ] in Urine by Test strip ID Date Data Source [id number] 01/18/2020 01:29:00 PM EDT [facility] Name Value Range Interpretation Code Description Data Bryanna rce(s) Supporting Document(s ) Protein TRACE [facility] [Presence] Hospital in Urine by Test strip ID Date Data Source [id number] 01/18/2020 01:29:00 PM EDT [facility] Name Value Range Interpretation Code Description Data Bryanna rce(s) Supporting Document(s ) pH of Urine 5.0 [facility] by Test Hospital strip ID Date Data Source [id number] [facility] Interpretation Code Description Data Supporting Source(s) Document(s ) Specific 1.035 [facility] gravity of Hospital Urine by Test strip ID Date Data Source [id number] 01/18/2020 [facility] Value Range Interpretation Description Data Sup porting Code Source(s) Document(s ) Clarity in Urine TURBID [facility] by Refractometry Hospital automated ID Date Data Source [id number] 01/18/2020 01:29:00 PM EDT [facility] Value Range Interpretation Code Description Data Bryanna rce(s) Supporting Document(s ) Color of YELLOW [facility] Urine Hospital ID Date Data Source [id number] 01/18/2020 11:15:[facility] Value Range Interpretation Description Data Sup porting Code Source(s) Document(s ) MISC TEST SEE COMMENT [facility] REFERENCE ABOVE Hospital RANGE ID Date Data Source [id number] 01/18/2020 11:15:[facility] Beta-Hydroxybutyrate, S: 9.0 mmol/L (HIG H)Reference Value: <0.4TEST PERFORMED AT:[address] [address] Name Value Range Interpretation Code Description Data Supporting Source(s) Document(s ) MISC TEST SEE NOTE [facility] RESULT Hospital ID Date Data Source [id number] 01/18/2020 11:15:00 AM EDT [facility] Value Range Interpretation Code Description Data Bryanna rce(s) Supporting Document(s ) MISC TEST Beta-[place] [facility] NAME xybutyrate Hospital ID Date Data Source [id number] 01/18/2020 11:15:00 AM [facility] Name Value Range Interpretation Description Data Sup porting Code Source(s) Document(s ) Thyroxine 0.7 ng/dL [facility] (T4) free Hospital [Mass/volume] in Serum or Plasma ID Date Data Source [id number] 01/18/2020 11:15:00 AM [facility] Name Value Range Interpretation Description Data Sup porting Code Source(s) Document(s ) Thyrotropin 0.594 [facility] [Units/volume] u[IU]/mL Hospital in Serum or Plasma by Detection limit <= 0.005 mIU/L ID Date Data Source [id number] 01/18/2020 11:15:00 AM [facility] TEST PERFORMED BY [employer]ENS[employer] CHEMILUMINESCENCE METHOD. Name Value Range Interpretation Description Data Sup porting Code Source(s) Document(s ) Troponin 0.04 [facility] I.cardiac ng/mL Hospital [Mass/volume ] in Serum or Plasma ID Date Data Source [id number] 01/18/2020 11:15:00 AM [facility] Name Value Range Interpretation Code Description Data Bryanna rce(s) Supporting Document(s ) Lipase 16 U/L [facility] [Enzymatic Hospital activity/vo lume] in Serum or Plasma ID Date Data Source [id number] 01/18/2020 11:15:00 AM [facility] THERAPEUTIC RANGE FOR STANDARD ORALANTIC OAGULANT THERAPY: 2.0-3.0THERAPEUTIC RANGE FOR HIGH DOSE ORALANTICOAGULANT THERAPY (MECHANICAL HEARTVALVE REPLACEMENT): 2.5-3.5 Name Value Range Interpretation Description Data Sup porting Code Source(s) Document(s ) INR in Platelet 0.9 [facility] poor plasma by Hospital Coagulation assay ID Date Data Source [id number] 01/18/2020 11[facility]15:[facility] Name Value Range Interpretation Description Data Sup porting Code Source(s) Document(s ) PT panel - 10.4 s [facility] Platelet poor [facility] plasma by Coagulation assay ID Date Data Source [id number] 01/10/2020 05:41:[facility]BECKY LEIVA Name Value Range Interpretation Description Data Sup porting Code Source(s) Document(s ) Glucose 288 mg/dL [facility] [Mass/volume] Hospital in Capillary blood by Glucometer ID Date Data Source [id number] 01/10/2020 01:22:00 AM [facility] Name Value Range Interpretation Description Data Sup porting Code Source(s) Document(s ) Aspartate 44 U/L [place] aminotransferase [facility] [Enzymatic Hospital activity/volume] in Serum or Plasma ID Date Data Source [id number] 01/10/2020 01:22:[facility] Name Value Range Interpretation Description Data Sup porting Code Source(s) Document(s ) Alanine 26 U/L [place] aminotransferase [facility] [Enzymatic Hospital activity/volume] in Serum or Plasma ID Date Data Source [id number] 01/10/2020 01:22:00 AM EDT [facility] Name Value Range Interpretation Description Data Sup porting Code Source(s) Document(s ) Alkaline 86 U/L [facility] phosphatase Hospital [Enzymatic activity/volume ] in Serum or Plasma ID Date Data Source [id number] 01/10/2020 01[facility]22:[facility] Name Value Range Interpretation Description Data Sup porting Code Source(s) Document(s ) Bilirubin.t 1.1 mg/dL [facility] [Mass/volum e] in Serum or Plasma ID Date Data Source [id number] 01/10/2020 01:22:00 AM EDT [facility] Name Value Range Interpretation Code Description Data Bryanna rce(s) Supporting Document(s ) Albumin/Glob 1.1 [facility] ulin [Mass Hospital Ratio] in Serum or Plasma ID Date Data Source [id number] 01/10/2020 01:22:00 AM EDT [facility] Name Value Range Interpretation Description Data Sup porting Code Source(s) Document(s ) Albumin 3.1 g/dL [facility] [Mass/volume Hospital ] in Serum or Plasma ID Date Data Source [id number] 01/10/2020 01:22:[facility] Name Value Range Interpretation Description Data Sup porting Code Source(s) Document(s ) Protein 6.0 g/dL [facility] [Mass/volume Hospital ] in Serum or Plasma ID Date Data Source [id number] 01/10/2020 01:22:00 AM [facility] Name Value Range Interpretation Description Data Sup porting Code Source(s) Document(s ) Calcium 8.8 mg/dL [facility] [Mass/volume Hospital ] in Serum or Plasma ID Date Data Source [id number] 01/10/2020 01:22:00 AM [facility] UNITS ARE IN ml/min/1.73m2.IF PATIENT IS -COSTA RICAN, MULTIPLY REPORTED RESULT BY 1.21. Name Value Range Interpretation Description Data Sup porting Code Source(s) Document(s ) Glomerular > 60 [facility] filtration mL/min Hospital rate/1.73 sq M.predicted [Volume Rate/Area] in Serum or Plasma by Creatinine-bas ed formula (MDRD) ID Date Data Source [id number] 01/10/2020 01:22[facility] Name Value Range Interpretation Code Description Data Bryanna rce(s) Supporting Document(s ) Urea 10.0 [facility] nitrogen/Cre Hospital atinine [Mass Ratio] in Serum or Plasma ID Date Data Source [id number] 01/10/2020 01:22:00 AM EDT [facility] Name Value Range Interpretation Description Data Sup porting Code Source(s) Document(s ) Creatinine 0.9 mg/dL [facility] [Mass/volume] Hospital in Serum or Plasma ID Date Data Source [id number] 01/10/2020 01:22:00 AM EDT [facility] Name Value Range Interpretation Description Data Sup porting Code Source(s) Document(s ) Urea nitrogen 9 mg/dL [facility] [Mass/volume] Hospital in Serum or Plasma ID Date Data Source [id number] 01/10/2020 [facility] Name Value Range Interpretation Code Description Data Bryanna rce(s) Supporting Document(s ) Anion gap in 11 [facility] Serum or [facility] Plasma ID Date Data Source [id number] 01/10/2020 01:22:00 AM [facility] Name Value Range Interpretation Description Data Sup porting Code Source(s) Document(s ) Carbon 30 mmol/L [facility] dioxide, Hospital total [Moles/volu me] in Serum or Plasma ID Date Data Source [id number] 01/10/2020 [facility] Name Value Range Interpretation Description Data Sup porting Code Source(s) Document(s ) Chloride 104 [facility] [Moles/volum mmol/L Hospital e] in Serum or Plasma ID Date Data Source [id number] 01/10/2020 01:22:00 AM [facility] THIS RESULT HAS BEEN VERIFIED. Name Value Range Interpretation Description Data Sup porting Code Source(s) Document(s ) Potassium 4.7 [facility] [Moles/volume mmol/L Hospital ] in Serum or Plasma ID Date Data Source [id number] 01/10/2020 01[facility]22:[facility] Name Value Range Interpretation Description Data Sup porting Code Source(s) Document(s ) Sodium 140 mmol/L [facility] [Moles/volu Hospital nh] in Serum or Plasma ID Date Data Source [id number] 01/10/2020 01:22:00 AM [facility] NOTIFICATION AND READ BACK OF CRITICAL R ESULTS TO DIANA STRATTON OF AT 0209 ON 01/10/20 BY Jeri Iraheta.PLEASE NOTE FIDEL NGE IN CRITICAL GLUCOSE VALUES EFFECTIVE 04/22/17.REPORTED CRITICAL VALUES SHOULD B E INTERPRETED WITHIN CLINICAL CONTEXT. Name Value Range Interpretation Description Data Sup porting Code Source(s) Document(s ) Glucose 474 mg/dL [facility] [Mass/volume Hospital ] in Serum or Plasma ID Date Data Source [id number] 01/10/2020 01:22:00 AM [facility] Name Value Range Interpretation Description Data Sup porting Code Source(s) Document(s ) Differential AUTOMATED [facility] cell count [facility] method - Blood ID Date Data Source [id number] 01/10/2020 01:22:00 AM [facility] Name Value Range Interpretation Description Data Sup porting Code Source(s) Document(s ) Immature 0.01 [facility] granulocytes 10*3/uL Hospital [#/volume] in Blood by Automated count ID Date Data Source [id number] 01/10/2020 [facility] Value Range Interpretation Description Data Sup porting Code Source(s) Document(s ) Basophils 0.05 [facility] [#/volume] in 10*3/uL Hospital Blood by Automated count ID Date Data Source [id number] 01/10/2020 01:22:00 AM EDT [facility] Value Range Interpretation Description Data Sup porting Code Source(s) Document(s ) Eosinophils 0.35 [facility] [#/volume] in 10*3/uL Hospital Blood by Automated count ID Date Data Source [id number] 01/10/2020 01:22:00 AM EDT [facility] Value Range Interpretation Description Data Sup porting Code Source(s) Document(s ) Monocytes 0.47 [facility] [#/volume] in 10*3/uL Hospital Blood by Automated count ID Date Data Source [id number] 01/10/2020 01:22:00 AM EDT [facility] Value Range Interpretation Description Data Sup porting Code Source(s) Document(s ) Lymphocytes 2.46 [facility] [#/volume] in 10*3/uL Hospital Blood by Automated count ID Date Data Source [id number] 01/10/2020 01:22:00 AM EDT [facility] Value Range Interpretation Description Data Sup porting Code Source(s) Document(s ) Neutrophils 0.96 [facility] [#/volume] in 10*3/uL Hospital Blood by Automated count ID Date Data Source [id number] 01/10/2020 01:22:00 AM EDT [facility] Value Range Interpretation Description Data Sup porting Code Source(s) Document(s ) Nucleated 0.0 % [facility] erythrocytes/10 Hospital 0 leukocytes [Ratio] in Blood by Automated count ID Date Data Source [id number] 01/10/2020 01:22:00 AM EDT [facility] Value Range Interpretation Description Data Sup porting Code Source(s) Document(s ) Immature 0.2 % [facility] granulocytes/10 Hospital 0 leukocytes in Blood by Automated count ID Date Data Source [id number] 01/10/2020 01:22:00 AM EDT [facility] Name Value Range Interpretation Description Data Sup porting Code Source(s) Document(s ) Basophils/100 1.2 % [facility] leukocytes in Hospital Blood by Automated count ID Date Data Source [id number] 01/10/2020 01:22:00 AM EDT [facility] Name Value Range Interpretation Description Data Sup porting Code Source(s) Document(s ) Eosinophils/100 8.1 % [facility] leukocytes in Hospital Blood by Automated count ID Date Data Source [id number] 01/10/2020 01:22:00 AM EDT [facility] Value Range Interpretation Description Data Sup porting Code Source(s) Document(s ) Monocytes/100 10.9 % [facility] leukocytes in Hospital Blood by Automated count ID Date Data Source [id number] 01/10/2020 01:22:00 AM EDT [facility] Name Value Range Interpretation Description Data Sup porting Code Source(s) Document(s ) Lymphocytes/10 57.2 % [facility] 0 leukocytes Hospital in Blood by Automated count ID Date Data Source [id number] 01/10/2020 01:22:00 AM EDT [facility] Value Range Interpretation Description Data Sup porting Code Source(s) Document(s ) Neutrophils/10 22.4 % [facility] 0 leukocytes Hospital in Blood by Automated count ID Date Data Source [id number] 01/10/2020 01:22:00 AM EDT [facility] Name Value Range Interpretation Description Data Sup porting Code Source(s) Document(s ) Platelet mean 13.0 fL [facility] volume Hospital [Entitic volume] in Blood by Automated count ID Date Data Source [id number] 01/10/2020 01:22:00 AM EDT [facility] Value Range Interpretation Description Data Sup porting Code Source(s) Document(s ) Platelets 215 [facility] [#/volume] in 10*3/uL Hospital Blood by Automated count ID Date Data Source [id number] 01/10/2020 01:22:[address] [facility] Value Range Interpretation Description Data Sup porting Code Source(s) Document(s ) Erythrocyte 15.5 % [facility] distribution Hospital width [Ratio] by Automated count ID Date Data Source [id number] 01/10/2020 [facility] Interpretation Description Data Sup porting Code Source(s) Document(s ) Erythrocyte mean 34.5 [facility] corpuscular g/dL Hospital hemoglobin concentration [Mass/volume] by Automated count ID Date Data Source [id number] 01/10/2020 [facility]:22:[facility] Value Range Interpretation Description Data Sup porting Code Source(s) Document(s ) Erythrocyte 30.5 pg [facility] corpuscular hemoglobin [Entitic mass] by Automated count ID Date Data Source [id number] 01/10/2020 01:22:[address] [facility] Value Range Interpretation Description Data Sup porting Code Source(s) Document(s ) Erythrocyte 88.5 fL [facility] corpuscular volume [Entitic volume] by Automated count ID Date Data Source [id number] 01/10/2020 01:22:[address] [facility] Value Range Interpretation Description Data Sup porting Code Source(s) Document(s ) Hematocrit 32.2 % [facility] [Volume Hospital Fraction] of Blood by Automated count ID Date Data Source [id number] 01/10/2020 [facility] Value Range Interpretation Description Data Sup porting Code Source(s) Document(s ) Hemoglobin 11.1 g/dL [facility] [Mass/volume] Hospital in Blood ID Date Data Source [id number] 01/10/2020 01:22:00 AM [facility] Name Value Range Interpretation Description Data Sup porting Code Source(s) Document(s ) Erythrocytes 3.64 [facility] [#/volume] in 10*6/uL Hospital Blood by Automated count ID Date Data Source [id number] 01/10/2020 01:22:00 AM [facility] Name Value Range Interpretation Description Data Sup porting Code Source(s) Document(s ) Leukocytes 4.3 [facility] [#/volume] in 10*3/uL Hospital Blood by Automated count ID Date Data Source [id number] 01/10/2020 01:22:00 AM [facility] UNITS ARE IN ml/min/1.73m2.IF PATIENT IS -[place] RICAN, MULTIPLY REPORTED RESULT BY 1.21. Name Value Range Interpretation Description Data Sup porting Code Source(s) Document(s ) Glomerular > 60 [facility] filtration mL/min Hospital rate/1.73 sq M.predicted [Volume Rate/Area] in Serum or Plasma by Creatinine-bas ed formula (MDRD) ID Date Data Source [id number] 01/08/2020 11:43:00 AM [facility] Pediatric Allergist:PAVEL DURAN Name Value Range Interpretation Description Data Sup porting Code Source(s) Document(s ) Glucose 177 mg/dL [facility] [Mass/volume] [facility] in Capillary blood by Glucometer ID Date Data Source [id number] 01/08/2020 10:23:00 AM [facility] NOTIFICATION AND READ BACK OF CRITICAL R ESULTS TO MUMTAZ MAHARAJ R.N/EVELIA AT 1119 ON 01/08/20 BY Sd Masterson.REPORTED CRITICAL VALUES SHOULD BE INTERPRETED WITHIN CLINICAL CONTEXT. Name Value Range Interpretation Description Data Sup porting Code Source(s) Document(s ) Lactate 2.8 [facility] [Moles/volum mmol/L Hospital e] in Serum or Plasma ID Date Data Source [id number] 01/08/2020 10:23:00 AM EDT [facility] NOTIFICATION AND READ BACK OF CRITICAL R ESULTS TO MUMTAZ MAHARAJ R.N/EVELIA AT 1119 ON 01/08/20 BY dS Masterson.REPORTED CRITICAL VALUES SHOULD BE INTERPRETED WITHIN CLINICAL CONTEXT. Name Value Range Interpretation Description Data Sup porting Code Source(s) Document(s ) Lactate 2.8 [facility] [Moles/volum mmol/L Hospital e] in Serum or Plasma ID Date Data Source [id number] 01/08/2020 08:37:00 AM EDT [facility] CUT-OFF >= 25 NG/ML.THE FINDINGS OF THE URINE DRUG SCREEN ARE USED SOLELY FOR PATIENT MANAGEMENT AND GUIDANCE. THE RESULTS [place] ULD NOT BE USED FOR FORENSIC PURPOSE. ANY CLINICALLY UNSUSPECTED POSITIVE DRUG SCR EEN CAN BE CONFIRMED BY CALLING THE LABORATORY 3 DAYS WITHIN RECEIPT OF REPO RT. Name Value Range Interpretation Code Description Data [facility] rce(s) Supporting Document(s ) PCP (UR) NEGATIVE [facility] ID Date Data Source [id number] 01/08/2020 08:37:00 AM EDT [facility] CUT-OFF >= 50 NG/ML. Name Value Range Interpretation Code Description Data Bryanna rce(s) Supporting Document(s ) THC (UR) NEGATIVE [facility] ID Date Data Source [id number] 01/08/2020 08:37:00 AM EDT [facility] CUT-OFF >= 300 NG/ML. Name Value Range Interpretation Description Data Sup porting Code Source(s) Document(s ) OPIATES (UR) NEGATIVE [facility] ID Date Data Source [id number] 01/08/2020 08:37:00 AM EDT [facility] CUT-OFF >= 300 NG/ML. Name Value Range Interpretation Description Data Sup porting Code Source(s) Document(s ) COCAINE (UR) POSITIVE [facility] ID Date Data Source [id number] 01/08/2020 08:37:00 AM EDT [facility] CUT-OFF >= 200 NG/ML. Name Value Range Interpretation Description Data Sup porting Code Source(s) Document(s ) BENZODIAZEPINES NEGATIVE [place] (UR) [facility] ID Date Data Source [id number] 01/08/2020 08:37:00 AM EDT [facility] CUT-OFF >= 200 NG/ML. Name Value Range Interpretation Description Data Sup porting Code Source(s) Document(s ) BARBITURATES NEGATIVE [facility] (UR) Hospital ID Date Data Source [id number] [facility]. Name Value Range Interpretation Description Data Sup porting Code Source(s) Document(s ) AMPHETAMINES NEGATIVE [facility] (UR) Hospital ID Date Data Source [id number] 01/08/2020 08:37:00 AM [facility] Name Value Range Interpretation Description Data Sup porting Code Source(s) Document(s ) Leukocyte NEGATIVE [facility] [Presence] in Urine by Test strip ID Date Data Source [id number] 01/08/2020 08:37:00 AM [facility] Name Value Range Interpretation Description Data Sup porting Code Source(s) Document(s ) URINE NEGATIVE [facility] ID Date Data Source [id number] [facility] Value Range Interpretation Description Data Sup porting Code Source(s) Document(s ) Erythrocytes NEGATIVE [facility] [#/volume] in Hospital Urine by Test strip ID Date Data Source [id number] 01/08/2020 08:37:00 AM EDT [facility] Name Value Range Interpretation Code Description Data Bryanna rce(s) Supporting Document(s ) Bilirubin. NEGATIVE [facility] total [facility] [Presence] in Urine by Test strip ID Date Data Source [id number] 01/08/2020 08:37:00 AM EDT [facility] Value Range Interpretation Description Data Sup porting Code Source(s) Document(s ) Urobilinogen 1.0 [facility] [Units/volume] mg/dL Hospital in Urine by Test strip ID Date Data Source [id number] 01/08/2020 08:37:00 AM EDT [facility] Value Range Interpretation Description Data Sup porting Code Source(s) Document(s ) Ketones NEGATIVE [facility] [Mass/volume Hospital ] in Urine by Test strip ID Date Data Source [id number] 01/08/2020 08:37:00 AM EDT [facility] Value Range Interpretation Code Description Data Bryanna rce(s) Supporting Document(s ) Glucose 3+ [facility] [Mass/volume Hospital ] in Urine by Test strip ID Date Data Source [id number] 01/08/2020 08:37:00 AM EDT [facility] Name Value Range Interpretation Description Data Sup porting Code Source(s) Document(s ) Protein NEGATIVE [facility] [Presence] Hospital in Urine by Test strip ID Date Data Source [id number] 01/08/2020 08:37:00 AM EDT [facility] Name Value Range Interpretation Code Description Data Bryanna rce(s) Supporting Document(s ) pH of Urine 7.0 [facility] by Test Hospital strip ID Date Data Source [id number] 01/08/2020 08:37:00 AM [facility] Name Value Range Interpretation Code Description Data Supporting Source(s) Document(s ) Specific 1.035 [facility] gravity of Hospital Urine by Test strip ID Date Data Source [id number] 01/08/2020 08:37:00 AM [facility] Name Value Range Interpretation Description Data Sup porting Code Source(s) Document(s ) Clarity in Urine CLEAR [facility] automated ID Date Data Source [id number] 01/08/2020 08:37:00 AM [facility] Name Value Range Interpretation Code Description Data Bryanna rce(s) Supporting Document(s ) Color of YELLOW [facility] Urine Hospital ID Date Data Source [id number] 01/08/2020 08:37:00 AM [facility] CUT-OFF >= 25 NG/ML.THE FINDINGS OF THE URINE DRUG SCREEN ARE USED SOLELY FOR PATIENT MANAGEMENT AND GUIDANCE. THE RESULTS FREEDOM ULD NOT BE USED FOR FORENSIC PURPOSE. ANY CLINICALLY UNSUSPECTED POSITIVE DRUG SCR EEN CAN BE CONFIRMED BY CALLING THE LABORATORY 3 DAYS WITHIN RECEIPT OF REPO RT. Name Value Range Interpretation Code Description Data Bryanna rce(s) Supporting Document(s ) PCP (UR) NEGATIVE [facility] ID Date Data Source [id number] 01/08/2020 08:37:00 AM EDT [facility] CUT-OFF >= 50 NG/ML. Name Value Range Interpretation Code Description Data Bryanna rce(s) Supporting Document(s ) THC (UR) NEGATIVE [facility] ID Date Data Source [id number] 01/08/2020 08:37:00 AM [facility] CUT-OFF >= 300 NG/ML. Name Value Range Interpretation Description Data Sup porting Code Source(s) Document(s ) OPIATES (UR) NEGATIVE [facility] ID Date Data Source [id number] 01/08/2020 08:37:00 AM EDT [facility] CUT-OFF >= 300 NG/ML. Name Value Range Interpretation Description Data Sup porting Code Source(s) Document(s ) COCAINE (UR) POSITIVE [facility] ID Date Data Source [id number] 01/08/2020 08:37:00 AM EDT [facility] CUT-OFF >= 200 NG/ML. Name Value Range Interpretation Description Data Sup porting Code Source(s) Document(s ) BENZODIAZEPINES NEGATIVE [place] (UR) [facility] ID Date Data Source [id number] 01/08/2020 08:37:00 AM EDT [facility] CUT-OFF >= 200 NG/ML. Name Value Range Interpretation Description Data Sup porting Code Source(s) Document(s ) BARBITURATES NEGATIVE [facility] (UR) Hospital ID Date Data Source [id number] [facility]. Name Value Range Interpretation Description Data Sup porting Code Source(s) Document(s ) AMPHETAMINES NEGATIVE [facility] (UR) Hospital ID Date Data Source [id number] 01/08/2020 08:37:00 AM EDT [facility] Name Value Range Interpretation Description Data Sup porting Code Source(s) Document(s ) Leukocyte NEGATIVE [facility] esterase [facility] [Presence] in Urine by Test strip ID Date Data Source [id number] [facility] Value Range Interpretation Description Data Sup porting Code Source(s) Document(s ) URINE NEGATIVE [facility] ID Date Data Source [id number] 01/08/2020 08:37:00 AM EDT [facility] Name Value Range Interpretation Description Data Sup porting Code Source(s) Document(s ) Erythrocytes NEGATIVE [facility] [#/volume] in Hospital Urine by Test strip ID Date Data Source [id number] 01/08/2020 08:37:00 AM EDT [facility] Value Range Interpretation Code Description Data Bryanna rce(s) Supporting Document(s ) Bilirubin. NEGATIVE [facility] total [facility] [Presence] in Urine by Test strip ID Date Data Source [id number] 01/08/2020 08:37:00 AM EDT [facility] Value Range Interpretation Description Data Sup porting Code Source(s) Document(s ) Urobilinogen 1.0 [facility] [Units/volume] mg/dL Hospital in Urine by Test strip ID Date Data Source [id number] 01/08/2020 08:37:00 AM EDT [facility] Value Range Interpretation Description Data Sup porting Code Source(s) Document(s ) Ketones NEGATIVE [facility] [Mass[facility]volume Hospital ] in Urine by Test strip ID Date Data Source [id number] [facility] Interpretation Code Description Data Bryanna rce(s) Supporting Document(s ) Glucose 3+ [facility] [Mass[facility]volume [facility] ] in Urine by Test strip ID Date Data Source [id number] 01/08/2020 08:37:00 AM EDT [facility] Name Value Range Interpretation Description Data Sup porting Code Source(s) Document(s ) Protein NEGATIVE [facility] [Presence] Hospital in Urine by Test strip ID Date Data Source [id number] 01/08/2020 08:37:00 AM EDT [facility] Value Range Interpretation Code Description Data Bryanna rce(s) Supporting Document(s ) pH of Urine 7.0 [facility] by Test Hospital strip ID Date Data Source [id number] 01/08/2020 08:37:00 AM EDT [facility] Name Value Range Interpretation Code Description Data Supporting Source(s) Document(s ) Specific 1.035 [facility] gravity of Hospital Urine by Test strip ID Date Data Source [id number] 01/08/2020 08:37:00 AM EDT [facility] Name Value Range Interpretation Description Data Sup porting Code Source(s) Document(s ) Clarity in Urine CLEAR [facility] automated ID Date Data Source [id number] 01/08/2020 08:37:00 AM EDT [facility] Name Value Range Interpretation Code Description Data Bryanna rce(s) Supporting Document(s ) Color of YELLOW [facility] ID Date Data Source [id number] 01/08/2020 08:21:00 AM [facility] TEST PERFORMED BY [facility] [facility] [employer] SENS[facility] CHEMILUMINESCENCE METHOD. Name Value Range Interpretation Description Data Sup porting Code Source(s) Document(s ) Troponin 0.01 [facility] I.cardiac ng/mL Hospital [Mass/volume ] in Serum or Plasma ID Date Data Source [id number] [facility]/08[facility]2020 [facility] Value Range Interpretation Code Description Data Bryanna rce(s) Supporting Document(s ) Lipase 36 U/L [facility] [Enzymatic Hospital activity/vo lume] in Serum or Plasma ID Date Data Source [id number] 01/08/2020 08:21:00 AM EDT [facility] Name Value Range Interpretation Description Data Sup porting Code Source(s) Document(s ) Phosphate 3.1 mg/dL [facility] [Mass/volume] Hospital in Serum or Plasma ID Date Data Source [id number] 01/08/2020 08:21:00 AM EDT [facility] Name Value Range Interpretation Description Data Sup porting Code Source(s) Document(s ) Magnesium 1.5 mg/dL [facility] [Mass/volume] Hospital in Serum or Plasma ID Date Data Source [id number] 01/08/2020 08:21:00 AM EDT [facility] THERAPEUTIC RANGES:UNFRACTIONATED HEPARI N THERAPY: 60-90 SECONDSARGATROBAN THERAPY: 49-99 SECONDS Name Value Range Interpretation Description Data Sup porting Code Source(s) Document(s ) aPTT in 28.1 s [facility] Platelet poor [facility] plasma by Coagulation assay ID Date Data Source [id number] 01/08/2020 08:21:00 AM [facility] THERAPEUTIC RANGE FOR STANDARD ORALANTIC OAGULANT THERAPY: 2.0-3.0THERAPEUTIC RANGE FOR HIGH DOSE ORALANTICOAGULANT THERAPY (MECHANICAL HEARTVALVE REPLACEMENT): 2.5-3.5 Name Value Range Interpretation Description Data Sup porting Code Source(s) Document(s ) INR in Platelet 1.0 [facility] poor plasma by Hospital Coagulation assay ID Date Data Source [id number] 01/08/2020 08:21:00 AM EDT [facility] Name Value Range Interpretation Description Data Sup porting Code Source(s) Document(s ) PT panel - 11.9 s [facility] Platelet poor [facility] plasma by Coagulation assay ID Date Data Source [id number] 01/08/2020 08:21:00 AM EDT [facility] Name Value Range Interpretation Code Description Data Supporting Source(s) Document(s ) NUCLEATED RBCS 0.0 % [facility] (AUTO Hospital DIFF%)DIS ID Date Data Source [id number] 01/08/2020 08:21:00 AM [facility] REFERENCE RANGES: NONE DETECTED <20 MG/DL NONE TO MILD EUPHORIA 20-49 MG/DL MILD EUPHORIA 50-99 MG/DL MODERATE EUPHORIA 100-149 MG/DL INTOXICATION 150-300 MG/DL Name Value Range Interpretation Description Data Sup porting Code Source(s) Document(s ) Ethanol < 20 [facility] [Mass/volume mg/dL Hospital ] in Serum or Plasma ID Date Data Source [id number] 01/08/2020 08:21:00 AM [facility] TEST RESULT IS A TOTAL TRICYCLIC VALUE.T RICYCLIC ANTIDEPRESSANT REFERENCE RANGE: AMITRIPTYLINE AND METABOLITE (NORTRIPTYL INE) TOTAL THERAPEUTIC: 75 - 225 NG/ML. TOTAL TOXIC: > 400 NG/ML. NORTRIPTYLINE ONLY TOTAL THERAPEUTIC: 50 - 150 NG/ML. TOTAL TOXIC: > 400 NG/ML. IMIPRAMINE AND METABOLITE (DESIPRAMINE) TOTAL THERAPEUTIC: 125 - 175 NG/ML. TOTAL TOXIC: > 400 NG/ML. Name Value Range Interpretation Description Data Sup porting Code Source(s) Document(s ) TRICYCLIC < 80 [facility] ANTIDEPRESSANT ng/mL Hospital ID Date Data Source [id number] 01/08/2020 08:21:00 AM [facility] REFERENCE RANGES: ANALGESIC: 0.0 - 10.0 MG/DL. ARTHRITIC THERAPY: 15.0 - 30.0 MG/DL. Name Value Range Interpretation Description Data Sup porting Code Source(s) Document(s ) Salicylates < 3.0 [facility] [Mass/volume] mg/dL Hospital in Serum or Plasma ID Date Data Source [id number] 01/08/2020 08:21:00 AM [facility] THERAPEUTIC RANGE: 10.0-30.0 UG/MLTOXIC RANGE: 4 HRS AFTER INGESTION >150 UG/ML 12 HRS AFTER INGESTION >35 UG/ML Name Value Range Interpretation Description Data Sup porting Code Source(s) Document(s ) ACETAMINOPHEN < 10.0 [facility] ug/mL Hospital ID Date Data Source [id number] 01/08/2020 08:21:00 AM [facility] TEST PERFORMED BY [facility] [facility] [employer] CHEMILUMINESCENCE METHOD. Name Value Range Interpretation Description Data Sup porting Code Source(s) Document(s ) Troponin 0.01 [facility] I.cardiac ng/mL Hospital [Mass/volume ] in Serum or Plasma ID Date Data Source [id number] 01/08/2020 08:21:00 AM EDT [facility] Name Value Range Interpretation Code Description Data Bryanna rce(s) Supporting Document(s ) Lipase 36 U/L [facility] [Enzymatic Hospital activity/vo lume] in Serum or Plasma ID Date Data Source [id number] 01/08/2020 08:21:00 AM [facility] Name Value Range Interpretation Description Data Sup porting Code Source(s) Document(s ) Phosphate 3.1 mg/dL [facility] [Mass/volume] Hospital in Serum or Plasma ID Date Data Source [id number] 01/08[facility]2020 [facility] Value Range Interpretation Description Data Sup porting Code Source(s) Document(s ) Magnesium 1.5 mg/dL [facility] [Mass/volume] Hospital in Serum or Plasma ID Date Data Source [id number] 01/08/2020 08:21:00 AM EDT [facility] Name Value Range Interpretation Description Data Sup porting Code Source(s) Document(s ) Aspartate 45 U/L [facility] aminotransferase [facility] [Enzymatic Hospital activity/volume] in Serum or Plasma ID Date Data Source [id number] 01/08/2020 [facility] Value Range Interpretation Description Data Sup porting Code Source(s) Document(s ) Alanine 27 U/L [facility] aminotransferase [facility] [Enzymatic Hospital activity/volume] in Serum or Plasma ID Date Data Source [id number] 01/08/2020 [facility] Value Range Interpretation Description Data Sup porting Code Source(s) Document(s ) Alkaline 78 U/L [facility] phosphatase [facility] [Enzymatic activity/volume ] in Serum or Plasma ID Date Data Source [id number] 01/08/2020 08:21:00 AM EDT [facility] Name Value Range Interpretation Description Data Sup porting Code Source(s) Document(s ) Bilirubin.t 1.1 mg/dL [facility] [Mass/volum e] in Serum or Plasma ID Date Data Source [id number] 01/08/2020 [facility] Value Range Interpretation Code Description Data Bryanna rce(s) Supporting Document(s ) Albumin/Glob 1.0 [facility] [Mass Hospital Ratio] in Serum or Plasma ID Date Data Source [id number] 01/08/2020 [facility] Value Range Interpretation Description Data Sup porting Code Source(s) Document(s ) Albumin 3.0 g/dL [facility] [Mass/volume Hospital ] in Serum or Plasma ID Date Data Source [id number] 01/08/2020 08:21:00 AM EDT [facility] Name Value Range Interpretation Description Data Sup porting Code Source(s) Document(s ) Protein 5.9 g/dL [facility] [Mass/volume Hospital ] in Serum or Plasma ID Date Data Source [id number] 01/08/2020 [facility] Value Range Interpretation Description Data Sup porting Code Source(s) Document(s ) Calcium 8.8 mg/dL [facility] [Mass/volume Hospital ] in Serum or Plasma ID Date Data Source [id number] 01/08/2020 08:21:00 AM EDT [facility] Name Value Range Interpretation Code Description Data Bryanna rce(s) Supporting Document(s ) Urea 13.8 [facility] nitrogen/Cre Hospital atinine [Mass Ratio] in Serum or Plasma ID Date Data Source [id number] 01/08/2020 08:21:00 AM EDT [facility] Name Value Range Interpretation Description Data Sup porting Code Source(s) Document(s ) Creatinine 0.8 mg/dL [facility] [Mass/volume] Hospital in Serum or Plasma ID Date Data Source [id number] 01/08/2020 08:21:00 AM EDT [facility] Name Value Range Interpretation Description Data Sup porting Code Source(s) Document(s ) Urea 11 mg/dL [facility] nitrogen Hospital [Mass/volume ] in Serum or Plasma ID Date Data Source [id number] 01/08/2020 08:21:00 AM EDT [facility] Name Value Range Interpretation Code Description Data Bryanna rce(s) Supporting Document(s ) Anion gap in 9 [facility] Serum or Hospital Plasma ID Date Data Source [id number] 01/08/2020 08:21:00 AM EDT [facility] Name Value Range Interpretation Description Data Sup porting Code Source(s) Document(s ) Carbon 27 mmol/L [facility] dioxide, Hospital total [Moles/volu me] in Serum or Plasma ID Date Data Source [id number] 01/08/2020 08:21:00 AM EDT [facility] Name Value Range Interpretation Description Data Sup porting Code Source(s) Document(s ) Chloride 113 [facility] [Moles/volum mmol/L Hospital e] in Serum or Plasma ID Date Data Source [id number] 01/08/2020 08:21:00 AM [facility] Name Value Range Interpretation Description Data Sup porting Code Source(s) Document(s ) Potassium 3.3 [facility] [Moles/volume mmol/L Hospital ] in Serum or Plasma ID Date Data Source [id number] 01/08/2020 08:21:00 AM [facility] REFERENCE RANGES: NONE DETECTED <20 MG/DL NONE TO MILD EUPHORIA 20-49 MG/DL MILD EUPHORIA 50-99 MG/DL MODERATE EUPHORIA 100-149 MG/DL INTOXICATION 150-300 MG/DL Name Value Range Interpretation Description Data Sup porting Code Source(s) Document(s ) Ethanol < 20 [facility] [Mass/volume mg/dL Hospital ] in Serum or Plasma ID Date Data Source [id number] 01/08/2020 08:21:00 AM [facility] TEST RESULT IS A TOTAL TRICYCLIC VALUE.T RICYCLIC ANTIDEPRESSANT REFERENCE RANGE: AMITRIPTYLINE AND METABOLITE (NORTRIPTYL INE) TOTAL THERAPEUTIC: 75 - 225 NG/ML. TOTAL TOXIC: > 400 NG/ML. NORTRIPTYLINE ONLY TOTAL THERAPEUTIC: 50 - 150 NG/ML. TOTAL TOXIC: > 400 NG/ML. IMIPRAMINE AND METABOLITE (DESIPRAMINE) TOTAL THERAPEUTIC: 125 - 175 NG/ML. TOTAL TOXIC: > 400 NG/ML. Name Value Range Interpretation Description Data Sup porting Code Source(s) Document(s ) TRICYCLIC < 80 [facility] ANTIDEPRESSANT ng/mL Hospital ID Date Data Source [id number] 01/08/2020 08:21:00 AM [facility] REFERENCE RANGES: ANALGESIC: 0.0 - 10.0 MG/DL. ARTHRITIC THERAPY: 15.0 - 30.0 MG/DL. Name Value Range Interpretation Description Data Sup porting Code Source(s) Document(s ) Salicylates < 3.0 [facility] [Mass/volume] mg/dL Hospital in Serum or Plasma ID Date Data Source [id number] 01/08/2020 08:21:00 AM [facility] THERAPEUTIC RANGE: 10.0-30.0 UG/MLTOXIC RANGE: 4 HRS AFTER INGESTION >150 UG/ML 12 HRS AFTER INGESTION >35 UG/ML Name Value Range Interpretation Description Data Sup porting Code Source(s) Document(s ) ACETAMINOPHEN < 10.0 [facility] ug/mL Hospital ID Date Data Source [id number] 01/08/2020 08:21:00 AM [facility] REFERENCE RANGES: NONE DETECTED <20 MG/DL NONE TO MILD EUPHORIA 20-49 MG/DL MILD EUPHORIA 50-99 MG/DL MODERATE EUPHORIA 100-149 MG/DL INTOXICATION 150-300 MG/DL Name Value Range Interpretation Description Data Sup porting Code Source(s) Document(s ) Ethanol < 20 [facility] [Mass/volume mg/dL Hospital ] in Serum or Plasma ID Date Data Source [id number] 01/08/2020 08:21:00 AM [facility] TEST RESULT IS A TOTAL TRICYCLIC VALUE.T RICYCLIC ANTIDEPRESSANT REFERENCE RANGE: AMITRIPTYLINE AND METABOLITE (NORTRIPTYL INE) TOTAL THERAPEUTIC: 75 - 225 NG/ML. TOTAL TOXIC: > 400 NG/ML. NORTRIPTYLINE ONLY TOTAL THERAPEUTIC: 50 - 150 NG/ML. TOTAL TOXIC: > 400 NG/ML. IMIPRAMINE AND METABOLITE (DESIPRAMINE) TOTAL THERAPEUTIC: 125 - 175 NG/ML. TOTAL TOXIC: > 400 NG/ML. Name Value Range Interpretation Description Data Sup porting Code Source(s) Document(s ) TRICYCLIC < 80 [facility] ANTIDEPRESSANT ng/mL Hospital ID Date Data Source [id number] 01/08/2020 08:21:00 AM [facility] REFERENCE RANGES: ANALGESIC: 0.0 - 10.0 MG/DL. ARTHRITIC THERAPY: 15.0 - 30.0 MG/DL. Name Value Range Interpretation Description Data Sup porting Code Source(s) Document(s ) Salicylates < 3.0 [facility] [Mass/volume] mg/dL Hospital in Serum or Plasma ID Date Data Source [id number] 01/08/2020 08:21:00 AM EDT [facility] THERAPEUTIC RANGE: 10.0-30.0 UG/MLTOXIC RANGE: 4 HRS AFTER INGESTION >150 UG/ML 12 HRS AFTER INGESTION >35 UG/ML Name Value Range Interpretation Description Data Sup porting Code Source(s) Document(s ) ACETAMINOPHEN < 10.0 [facility] ug/mL Hospital ID Date Data Source [id number] 01/08/2020 08:21:00 AM EDT [facility] THERAPEUTIC RANGES:UNFRACTIONATED HEPARI N THERAPY: 60-90 SECONDSARGATROBAN THERAPY: 49-99 SECONDS Name Value Range Interpretation Description Data Sup porting Code Source(s) Document(s ) aPTT in 28.1 s [facility] Platelet poor [facility] plasma by Coagulation assay ID Date Data Source [id number] 01/08/2020 08:21:00 AM EDT [facility] Name Value Range Interpretation Description Data Sup porting Code Source(s) Document(s ) Sodium 146 mmol/L [facility] [[facility]] in Serum or Plasma ID Date Data Source [id number] 01/08/2020 08:21:00 AM EDT [facility] Name Value Range Interpretation Description Data Sup porting Code Source(s) Document(s ) Glucose 189 mg/dL [place] [Mass/volume [facility] ] in Serum or Plasma ID Date Data Source [id number] 01/08/2020 08:21:00 AM [facility] THERAPEUTIC RANGES:UNFRACTIONATED HEPARI N THERAPY: 60-90 SECONDSARGATROBAN THERAPY: 49-99 SECONDS Name Value Range Interpretation Description Data Sup porting Code Source(s) Document(s ) aPTT in 28.1 s [place] Platelet poor [facility] plasma by Coagulation assay ID Date Data Source [id number] 01/08/2020 08:21:00 AM [facility] THERAPEUTIC RANGE FOR STANDARD ORALANTIC OAGULANT THERAPY: 2.0-3.0THERAPEUTIC RANGE FOR HIGH DOSE ORALANTICOAGULANT THERAPY (MECHANICAL HEARTVALVE REPLACEMENT): 2.5-3.5 Name Value Range Interpretation Description Data Sup porting Code Source(s) Document(s ) INR in Platelet 1.0 [place] poor plasma by Hospital Coagulation assay ID Date Data Source [id number] 01/08/2020 08:21:00 AM EDT [facility] Name Value Range Interpretation Description Data Sup porting Code Source(s) Document(s ) PT panel - 11.9 s [place] Platelet poor Hospital plasma by Coagulation assay ID Date Data Source [id number] 01/[facility] Interpretation Code Description Data Supporting Source(s) Document(s ) NUCLEATED RBCS 0.0 % [place] (AUTO Hospital DIFF%)DIS ID Date Data Source [id number] 01/08/2020 08:21:00 AM [facility] Name Value Range Interpretation Description Data Sup porting Code Source(s) Document(s ) Differential AUTOMATED [place] cell count [facility] method - Blood ID Date Data Source [id number] 01/08/2020 08:21:00 AM [facility] Name Value Range Interpretation Description Data Sup porting Code Source(s) Document(s ) Immature 0.00 [place] granulocytes 10*3/uL Hospital [#/volume] in Blood by Automated count ID Date Data Source [id number] [facility] Interpretation Description Data Sup porting Code Source(s) Document(s ) Basophils 0.02 [place] [#/volume] in 10*3/uL Hospital Blood by Automated count ID Date Data Source [id number] 01/08/2020 08:21:00 AM EDT [facility] Name Value Range Interpretation Description Data Sup porting Code Source(s) Document(s ) Eosinophils 0.30 [place] [#/volume] in 10*3/uL Hospital Blood by Automated count ID Date Data Source [id number] 01/08/2020 08:21:00 AM EDT [facility] Value Range Interpretation Description Data Sup porting Code Source(s) Document(s ) Monocytes 0.46 [place] [#/volume] in 10*3/uL Hospital Blood by Automated count ID Date Data Source [id number] 01/08/2020 08:21:00 AM EDT [facility] Value Range Interpretation Description Data Sup porting Code Source(s) Document(s ) Lymphocytes 1.76 [place] [#/volume] in 10*3/uL Hospital Blood by Automated count ID Date Data Source [id number] 01/08/2020 08:21:00 AM EDT [facility] Value Range Interpretation Description Data Sup porting Code Source(s) Document(s ) Neutrophils 0.75 [place] [#/volume] in 10*3/uL Hospital Blood by Automated count ID Date Data Source [id number] 01/08/2020 08:21:00 AM EDT [facility] Value Range Interpretation Description Data Sup porting Code Source(s) Document(s ) Nucleated 0.0 % [place] erythrocytes/10 Hospital 0 leukocytes [Ratio] in Blood by Automated count ID Date Data Source [id number] 01/08/2020 08:21:00 AM EDT [facility] Value Range Interpretation Description Data Sup porting Code Source(s) Document(s ) Immature 0.0 % [place] granulocytes/10 Hospital 0 leukocytes in Blood by Automated count ID Date Data Source [id number] 01/08/2020 08:21:00 AM EDT [facility] Name Value Range Interpretation Description Data Sup porting Code Source(s) Document(s ) Basophils/100 0.6 % [place] leukocytes in Hospital Blood by Automated count ID Date Data Source [id number] 01/08/2020 08:21:00 AM EDT [facility] Name Value Range Interpretation Description Data Sup porting Code Source(s) Document(s ) Eosinophils/100 9.1 % [place] leukocytes in [facility] Blood by Automated count ID Date Data Source [id number] 01/08/2020 08:21:00 AM EDT [facility] Value Range Interpretation Description Data Sup porting Code Source(s) Document(s ) Monocytes/100 14.0 % [place] leukocytes in Hospital Blood by Automated count ID Date Data Source [id number] 01/08/2020 08:21:00 AM EDT [facility] Name Value Range Interpretation Description Data Sup porting Code Source(s) Document(s ) Lymphocytes/10 53.5 % [place] 0 leukocytes Hospital in Blood by Automated count ID Date Data Source [id number] 01/08/2020 08:21:00 AM EDT [facility] Value Range Interpretation Description Data Sup porting Code Source(s) Document(s ) Neutrophils/10 22.8 % [place] 0 leukocytes Hospital in Blood by Automated count ID Date Data Source [id number] 01/08/2020 08:21:00 AM EDT [facility] Value Range Interpretation Description Data Sup porting Code Source(s) Document(s ) Platelet mean 12.1 fL [place] volume [facility] [Entitic volume] in Blood by Automated count ID Date Data Source [id number] 01/08/2020 08:21:[address] [facility] Value Range Interpretation Description Data Sup porting Code Source(s) Document(s ) Platelets 174 [place] [#/volume] in 10*3/uL Hospital Blood by Automated count ID Date Data Source [id number] 01/08/2020 08:21:[address] [facility] Value Range Interpretation Description Data Sup porting Code Source(s) Document(s ) Erythrocyte 14.6 % [facility] Hospital width [Ratio] by Automated count ID Date Data Source [id number] 01/08/2020 08:21:[address] [facility] Value Range Interpretation Description Data Sup porting Code Source(s) Document(s ) Erythrocyte mean 32.4 [place] corpuscular g/dL Hospital hemoglobin concentration [Mass/volume] by Automated count ID Date Data Source [id number] 01/08/2020 08:21:[address] [facility] Value Range Interpretation Description Data Sup porting Code Source(s) Document(s ) Erythrocyte 30.1 pg [facility] corpuscular hemoglobin [Entitic mass] by Automated count ID Date Data Source [id number] 01/08/2020 08:21:[address] [facility] Value Range Interpretation Description Data Sup porting Code Source(s) Document(s ) Erythrocyte 92.9 fL [facility] corpuscular volume [Entitic volume] by Automated count ID Date Data Source [id number] 01/08/2020 08:21:[address] [facility] Value Range Interpretation Description Data Sup porting Code Source(s) Document(s ) Hematocrit 34.0 % [place] [Volume Hospital Fraction] of Blood by Automated count ID Date Data Source [id number] 01/08/2020 08:21:00 AM EDT [facility] Name Value Range Interpretation Description Data Sup porting Code Source(s) Document(s ) Hemoglobin 11.0 g/dL [place] [Mass/volume] Hospital in Blood ID Date Data Source [id number] 01/08/2020 08:21:00 AM EDT [facility] Value Range Interpretation Description Data Sup porting Code Source(s) Document(s ) Erythrocytes 3.66 [place] [#/volume] in 10*6/uL Hospital Blood by Automated count ID Date Data Source [id number] 01/08/2020 08:21:00 AM EDT [facility] Value Range Interpretation Description Data Sup porting Code Source(s) Document(s ) Leukocytes 3.3 [place] [#/volume] in 10*3/uL Hospital Blood by Automated count ID Date Data Source [id number] 01/08/2020 08:20:00 AM EDT [facility] Value Range Interpretation Code Description Data Bryanna rce(s) Supporting Document(s ) READ BACK Yes/ [facility] ID Date Data Source [id number] 01/08/2020 08:20:00 AM EDT [facility] Value Range Interpretation Code Description Data Bryanna rce(s) Supporting Document(s ) NOTE WHO DR GAY [facility] ID Date Data Source [id number] 01/08/2020 08:20:00 AM EDT [facility] Value Range Interpretation Description Data Sup porting Code Source(s) Document(s ) IONIZED 1.25 [place] CALCIUM mmol/L Hospital ID Date Data Source [id number] 01/08/2020 08:20:00 AM EDT [facility] Value Range Interpretation Code Description Data Supporting Source(s) Document(s ) METHEMOGLOBIN 0.6 % [facility] ID Date Data Source [id number] 01/08/2020 08:20:00 AM EDT [facility] Value Range Interpretation Description Data Sup porting Code Source(s) Document(s ) CARBOXYHEMOGLOBIN 0.8 % [facility] ID Date Data Source [id number] 01/08/2020 08:20:00 AM EDT [facility] Value Range Interpretation Code Description Data Bryanna rce(s) Supporting Document(s ) ABG TEMP 98.0 [facility] ID Date Data Source [id number] 01/08/2020 08:20:00 AM EDT [facility] Value Range Interpretation Code Description Data Bryanna rce(s) Supporting Document(s ) FIO2 21 % [facility] ID Date Data Source [id number] 01/08/2020 08:20:00 AM EDT [facility] Value Range Interpretation Code Description Data Bryanna rce(s) Supporting Document(s ) ABG BE 0.6 mmol/L [facility] ID Date Data Source [id number] 01/08/2020 08:20:00 AM EDT [facility] Value Range Interpretation Code Description Data Bryanna rce(s) Supporting Document(s ) ABG O2SAT 92 % [facility] ID Date Data Source [id number] 01/08/2020 08:20:00 AM EDT [facility] Value Range Interpretation Code Description Data Bryanna rce(s) Supporting Document(s ) ABG HCO3 25 mmol/L [facility] ID Date Data Source [id number] 01/08/2020 08:20:00 AM EDT [facility] Value Range Interpretation Code Description Data Bryanna rce(s) Supporting Document(s ) ABG PO2 64 mm[Hg] [facility] ID Date Data Source [id number] 01/08/2020 08:20:00 AM EDT [facility] Value Range Interpretation Code Description Data Bryanna rce(s) Supporting Document(s ) ABG PCO2 39 mm[Hg] [facility] ID Date Data Source [id number] 01/08/2020 08:20:00 AM EDT [facility] Value Range Interpretation Code Description Data Bryanna rce(s) Supporting Document(s ) ABG PH 7.42 [facility] ID Date Data Source [id number] 01/08/2020 08:20:00 AM EDT [facility] Value Range Interpretation Code Description Data Bryanna rce(s) Supporting Document(s ) JORGE TEST POSITIVE [facility] ID Date Data Source [id number] 01/08/2020 08:20:00 AM EDT [facility] Value Range Interpretation Code Description Data Bryanna rce(s) Supporting Document(s ) READ BACK Yes/ [facility] ID Date Data Source [id number] 01/08/2020 08:20:00 AM EDT [facility] Value Range Interpretation Code Description Data Bryanna rce(s) Supporting Document(s ) NOTE WHO DR GAY [facility] ID Date Data Source [id number] 01/08/2020 08:20:00 AM EDT [facility] Value Range Interpretation Description Data Sup porting Code Source(s) Document(s ) IONIZED 1.25 [place] CALCIUM mmol/L Hospital ID Date Data Source [id number] 01/08/2020 08:20:00 AM EDT [facility] Value Range Interpretation Code Description Data Supporting Source(s) Document(s ) METHEMOGLOBIN 0.6 % [facility] ID Date Data Source [id number] 01/08/2020 08:20:00 AM EDT [facility] Value Range Interpretation Description Data Sup porting Code Source(s) Document(s ) CARBOXYHEMOGLOBIN 0.8 % [facility] ID Date Data Source [id number] 01/08/2020 08:20:00 AM EDT [facility] Value Range Interpretation Code Description Data Bryanna rce(s) Supporting Document(s ) ABG TEMP 98.0 [facility] ID Date Data Source [id number] 01/08/2020 08:20:00 AM EDT [facility] Value Range Interpretation Code Description Data Bryanna rce(s) Supporting Document(s ) FIO2 21 % [facility] ID Date Data Source [id number] 01/08/2020 08:20:00 AM EDT [facility] Value Range Interpretation Code Description Data [place]anna rce(s) Supporting Document(s ) ABG BE 0.6 mmol/L [facility] ID Date Data Source [id number] 01/08/2020 08:20:00 AM EDT [facility] Value Range Interpretation Code Description Data [place]anna rce(s) Supporting Document(s ) ABG O2SAT 92 % [facility] ID Date Data Source [id number] 01/08/2020 08:20:00 AM EDT [facility] Value Range Interpretation Code Description Data [place]anna rce(s) Supporting Document(s ) ABG HCO3 25 mmol/L [facility] ID Date Data Source [id number] 01/08/2020 08:20:00 AM EDT [facility] Value Range Interpretation Code Description Data [place]anna rce(s) Supporting Document(s ) ABG PO2 64 mm[Hg] [facility] ID Date Data Source [id number] 01/08/2020 08:20:00 AM EDT [facility] Name Value Range Interpretation Code Description Data Bryanna rce(s) Supporting Document(s ) ABG PCO2 39 mm[Hg] [facility] ID Date Data Source [id number] 01/08/2020 08:20:00 AM EDT [facility] Value Range Interpretation Code Description Data Bryanna rce(s) Supporting Document(s ) ABG PH 7.42 [facility] ID Date Data Source [id number] 01/08/2020 08:20:00 AM EDT [facility] Value Range Interpretation Code Description Data Bryanna rce(s) Supporting Document(s ) JORGE TEST POSITIVE [facility] ID Date Data Source [id number] 01/08/2020 08:04:00 AM EDT [facility] Name Value Range Interpretation Description Data Sup porting Code Source(s) Document(s ) Arthropoda [employer] White Identification [facility] B[facility] Hospital ID Date Data Source [id number] 01/08/2020 08:04:00 AM EDT [facility] Value Range Interpretation Description Data Sup porting Code Source(s) Document(s ) Arthropoda CIM[employer] White Identification [facility]KA[facility]ENI[facility] (BED BUG) Hospital ID Date Data Source [id number] 01/08/2020 08:04:00 AM EDT [facility] Name Value Range Interpretation Description Data Sup porting Code Source(s) Document(s ) Arthropoda [employer] White Identification LECTULARIUS [facility] (BED BUG) Hospital ID Date Data Source [id number] 01/08/2020 07:47:00 AM EDT [facility] Value Range Interpretation Description Data Sup porting Code Source(s) Document(s ) Bacteria No growth [facility] identified in Hospital Blood by Culture ID Date Data Source [id number] 01/08/2020 07:47:00 AM EDT [facility] Value Range Interpretation Description Data Sup porting Code Source(s) Document(s ) Bacteria No growth [facility] identified in Hospital Blood by Culture ID Date Data Source [id number] 01/08/2020 07:20:00 AM EDT [facility] Value Range Interpretation Description Data Sup porting Code Source(s) Document(s ) GLUCOSE RN Notified [facility] ID Date Data Source [id number] 01/08[facility] Interpretation Description Data Sup porting Code Source(s) Document(s ) GLUCOSE RN Notified [facility] ID Date Data Source [id number] 2020 07:11:00 PM EDT [facility] Value Range Interpretation Description Data Sup porting Code Source(s) Document(s ) Calcium 8.6 mg/dL [facility] [Mass/volume Hospital ] in Serum or Plasma ID Date Data Source [id number] 2020 [facility] Value [facility] Interpretation Code Description Data Bryanna rce(s) Supporting Document(s ) Urea 10.0 [place] nitrogen/Cre Hospital atinine [Mass Ratio] in Serum or Plasma ID Date Data Source [id number] 2020 [facility] Value Range Interpretation Description Data Sup porting Code Source(s) Document(s ) Creatinine 0.9 mg/dL [facility] [Mass/volume] Hospital in Serum or Plasma ID Date Data Source [id number] 2020 07:11:00 PM EDT [facility] Value Range Interpretation Description Data Sup porting Code Source(s) Document(s ) Urea nitrogen 9 mg/dL [facility] [Mass/volume] Hospital in Serum or Plasma ID Date Data Source [id number] 2020 07:11:00 PM EDT [facility] Value Range Interpretation Code Description Data Bryanna rce(s) Supporting Document(s ) Anion gap in 18 [facility] Serum or [facility] Plasma ID Date Data Source [id number] 2020 07:11:00 PM EDT [facility] Name Value Range Interpretation Description Data Sup porting Code Source(s) Document(s ) Carbon 23 mmol/L [facility] dioxide, Hospital total [Moles/volu me] in Serum or Plasma ID Date Data Source [id number] 2020 07:11:00 PM EDT [facility] Name Value Range Interpretation Description Data Sup porting Code Source(s) Document(s ) Chloride 100 [facility] [Moles/volum mmol/L Hospital e] in Serum or Plasma ID Date Data Source [id number] 2020 07:11:00 PM EDT [facility] Name Value Range Interpretation Description Data Sup porting Code Source(s) Document(s ) Potassium 3.8 [place] [Moles/volume mmol/L Hospital ] in Serum or Plasma ID Date Data Source [id number] 2020 07:11:00 PM EDT [facility] Name Value Range Interpretation Description Data Sup porting Code Source(s) Document(s ) Sodium 137 mmol/L [facility] [Moles/volu Hospital me] in Serum or Plasma ID Date Data Source [id number] 2020 07:11:00 PM EDT [facility] Name Value Range Interpretation Description Data Sup porting Code Source(s) Document(s ) Glucose 394 mg/dL [facility] [Mass/volume Hospital ] in Serum or Plasma ID Date Data Source [id number] [facility] Name Value Range Interpretation Description Data Sup porting Code Source(s) Document(s ) Glucose 491 mg/dL [facility] [Mass/volume] Hospital in Capillary blood by Glucometer ID Date Data Source [id number] 2020 04:11:00 PM EDT [facility] Name Value Range Interpretation Description Data Sup porting Code Source(s) Document(s ) Leukocyte NEGATIVE [facility] esterase Hospital [Presence] in Urine by Test strip ID Date Data Source [id number] [facility] Value Range Interpretation Description Data Sup porting Code Source(s) Document(s ) URINE NEGATIVE [facility] ID Date Data Source [id number] 2020 04:11:00 PM EDT [facility] Name Value Range Interpretation Description Data Sup porting Code Source(s) Document(s ) Erythrocytes NEGATIVE [facility] [#/volume] in Hospital Urine by Test strip ID Date Data Source [id number] 2020 [facility] Value Range Interpretation Code Description Data Bryanna rce(s) Supporting Document(s ) Bilirubin. NEGATIVE [facility] total Hospital [Presence] in Urine by Test strip ID Date Data Source [id number] 2020 [facility] Value [facility] Interpretation Description Data Sup porting Code Source(s) Document(s ) Urobilinogen 0.2 [facility] [Units/volume] mg/dL Hospital in Urine by Test strip ID Date Data Source [id number] 2020 04:11:00 PM EDT [facility] Name Value Range Interpretation Code Description Data Bryanna rce(s) Supporting Document(s ) Ketones 1+ [facility] [Mass/volume Hospital ] in Urine by Test strip ID Date Data Source [id number] 2020 04:11:00 PM EDT [facility] Name Value Range Interpretation Code Description Data Bryanna rce(s) Supporting Document(s ) Glucose 3+ [facility] [Mass/volume Hospital ] in Urine by Test strip ID Date Data Source [id number] 2020 04:11:00 PM EDT [facility] Value Range Interpretation Description Data Sup porting Code Source(s) Document(s ) Protein NEGATIVE [facility] [Presence] Hospital in Urine by Test strip ID Date Data Source [id number] 2020 04:11:00 PM EDT [facility] Name Value Range Interpretation Code Description Data Bryanna rce(s) Supporting Document(s ) pH of Urine 5.5 [facility] by Test Hospital strip ID Date Data Source [id number] 2020 04:11:00 PM EDT [facility] Name Value Range Interpretation Code Description Data Supporting Source(s) Document(s ) Specific 1.043 [facility] gravity of Hospital Urine by Test strip ID Date Data Source [id number] 2020 04:11:00 PM EDT [facility] Name Value Range Interpretation Description Data Sup porting Code Source(s) Document(s ) Clarity in Urine CLEAR [facility] by Refractometry Hospital automated ID Date Data Source [id number] 2020 04:11:00 PM EDT [facility] Name Value Range Interpretation Code Description Data Bryanna rce(s) Supporting Document(s ) Color of YELLOW [facility] Urine Hospital ID Date Data Source [id number] 2020 03:51:00 PM EDT [facility] Name Value Range Interpretation Code Description Data Supporting Source(s) Document(s ) NUCLEATED RBCS 0.0 % [facility] (AUTO Hospital DIFF%)DIS ID Date Data Source [id number] 2020 03:51:00 PM EDT [facility] Name Value Range Interpretation Description Data Sup porting Code Source(s) Document(s ) Differential AUTOMATED [facility] cell count Hospital method - Blood ID Date Data Source [id number] 2020 03:51:00 PM EDT [facility] Value Range Interpretation Description Data Sup porting Code Source(s) Document(s ) Immature 0.00 [facility] granulocytes 10*3/uL Hospital [#/volume] in Blood by Automated count ID Date Data Source [id number] 2020 03:51:00 PM EDT [facility] Value Range Interpretation Description Data Sup porting Code Source(s) Document(s ) Basophils 0.02 [facility] [#/volume] in 10*3/uL Hospital Blood by Automated count ID Date Data Source [id number] 2020 03:51:00 PM EDT [facility] Name Value Range Interpretation Description Data Sup porting Code Source(s) Document(s ) Eosinophils 0.04 [facility] [#/volume] in 10*3/uL Hospital Blood by Automated count ID Date Data Source [id number] 2020 03:51:00 PM EDT [facility] Name Value Range Interpretation Description Data Sup porting Code Source(s) Document(s ) Monocytes 0.28 [place] [#/volume] in 10*3/uL Hospital Blood by Automated count ID Date Data Source [id number] 2020 03:51:00 PM EDT [facility] Name Value Range Interpretation Description Data Sup porting Code Source(s) Document(s ) Lymphocytes 1.26 [place] [#/volume] in 10*3/uL Hospital Blood by Automated count ID Date Data Source [id number] 2020 03:51:00 PM EDT [facility] Value Range Interpretation Description Data Sup porting Code Source(s) Document(s ) Neutrophils 1.42 [place] [#/volume] in 10*3/uL Hospital Blood by Automated count ID Date Data Source [id number] 2020 03:51:00 PM EDT [facility] Value Range Interpretation Description Data Sup porting Code Source(s) Document(s ) Nucleated 0.0 % [facility] erythrocytes/10 Hospital 0 leukocytes [Ratio] in Blood by Automated count ID Date Data Source [id number] 2020 03:51:00 PM EDT [facility] Value Range Interpretation Description Data Sup porting Code Source(s) Document(s ) Immature 0.0 % [place] granulocytes/10 Hospital 0 leukocytes in Blood by Automated count ID Date Data Source [id number] 2020 03:51:00 PM EDT [facility] Value Range Interpretation Description Data Sup porting Code Source(s) Document(s ) Basophils/100 0.7 % [place] leukocytes in Hospital Blood by Automated count ID Date Data Source [id number] 2020 03:51:00 PM EDT [facility] Value Range Interpretation Description Data Sup porting Code Source(s) Document(s ) Eosinophils/100 1.3 % [place] leukocytes in Hospital Blood by Automated count ID Date Data Source [id number] 2020 03:51:00 PM EDT [facility] Name Value Range Interpretation Description Data Sup porting Code Source(s) Document(s ) Monocytes/100 9.3 % [place] leukocytes in Hospital Blood by Automated count ID Date Data Source [id number] 2020 03:51:00 PM EDT [facility] Name Value Range Interpretation Description Data Sup porting Code Source(s) Document(s ) Lymphocytes/10 41.7 % [place] 0 leukocytes Hospital in Blood by Automated count ID Date Data Source [id number] 2020 03:51:00 PM EDT [facility] Value Range Interpretation Description Data Sup porting Code Source(s) Document(s ) Neutrophils/10 47.0 % [place] 0 leukocytes Hospital in Blood by Automated count ID Date Data Source [id number] 2020 03:51:00 PM EDT [facility] Value Range Interpretation Description Data Sup porting Code Source(s) Document(s ) Platelet mean 12.9 fL [facility] volume Hospital [Entitic volume] in Blood by Automated count ID Date Data Source [id number] 2020 03:51:00 PM EDT [facility] Value Range Interpretation Description Data Sup porting Code Source(s) Document(s ) Platelets 154 [place] [#/volume] in 10*3/uL Hospital Blood by Automated count ID Date Data Source [id number] 2020 03:51:00 PM EDT [facility] Value Range Interpretation Description Data Sup porting Code Source(s) Document(s ) Erythrocyte 14.2 % [facility] distribution Hospital width [Ratio] by Automated count ID Date Data Source [id number] 2020 03:51:00 PM EDT [facility] Value Range Interpretation Description Data Sup porting Code Source(s) Document(s ) Erythrocyte mean 35.0 [facility] corpuscular g/dL Hospital hemoglobin concentration [Mass/volume] by Automated count ID Date Data Source [id number] 2020 03:51:00 PM EDT [facility] Name Value Range Interpretation Description Data Sup porting Code Source(s) Document(s ) Erythrocyte 30.3 pg [facility] corpuscular hemoglobin [Entitic mass] by Automated count ID Date Data Source [id number] 2020 03:51:00 PM EDT [facility] THIS TEST RESULT HAS BEEN CONFIRMED BY R EPEAT ANALYSIS. Name Value Range Interpretation Description Data Sup porting Code Source(s) Document(s ) Erythrocyte 86.6 fL [facility] corpuscular volume [Entitic volume] by Automated count ID Date Data Source [id number] 2020 03:51:00 PM EDT [facility] Name Value Range Interpretation Description Data Sup porting Code Source(s) Document(s ) Hematocrit 32.3 % [facility] [Volume Hospital Fraction] of Blood by Automated count ID Date Data Source [id number] 2020 03:51:00 PM EDT [facility] Name Value Range Interpretation Description Data Sup porting Code Source(s) Document(s ) Hemoglobin 11.3 g/dL [facility] [Mass/volume] Hospital in Blood ID Date Data Source [id number] 2020 03:51:00 PM EDT [facility] Name Value Range Interpretation Description Data Sup porting Code Source(s) Document(s ) Erythrocytes 3.73 [place] [#/volume] in 10*6/uL Hospital Blood by Automated count ID Date Data Source [id number] [facility] Interpretation Description Data Sup porting Code Source(s) Document(s ) Leukocytes 3.0 [place] [#/volume] in 10*3/uL Hospital Blood by Automated count ID Date Data Source [id number] 12/29/2019 03:18:00 PM [facility] Test Performed by:[facility] [place], [place] [address]Z[place] Directo r: Mukesh Rudolph M.D. Ph.D.; CLIA# [id number] Name Value Range Interpretation Code Description Data Bryanna rce(s) Supporting Document(s ) ALPHA-1-A 107 mg/dL [facility] N ID Date Data Source [id number] 12/29/2019 03:18:00 PM [facility] HCV RNA QUANTITATION BY OZZIE DIANE Ampl iPrep/DIANE TaqMan HCV TEST v2.0. Name Value Range Interpretation Description Data Sup porting Code Source(s) Document(s ) Hepatitis C 0.00 [place] virus RNA [log {copies} Hospital units/volume] /mL (viral load) in Serum or Plasma by Probe and target amplification method ID Date Data Source [id number] 12/29/2019 03:18:00 PM [facility] NO VIRUS DETECTED. Name Value Range Interpretation Description Data Sup porting Code Source(s) Document(s ) Hepatitis C 0 [place] virus RNA [IU]/mL Hospital [Units/volume] (viral load) in Serum or Plasma by Probe and target amplification method ID Date Data Source [id number] 12/29/2019 03:18:00 PM [facility] Name Value Range Interpretation Description Data Sup porting Code Source(s) Document(s ) Hepatitis B NON-REACT [place] virus core Ab [facility] [Presence] in Serum ID Date Data Source [id number] 12/29/2019 03:18:00 PM EDT [facility] Name Value Range Interpretation Description Data Sup porting Code Source(s) Document(s ) Hepatitis A NON-REACT [place] virus IgM Ab [facility] [Presence] in Serum ID Date Data Source [id number] 12/29/2019 03:18:00 PM EDT [facility] Name Value Range Interpretation Description Data Sup porting Code Source(s) Document(s ) Hepatitis A REACTIVE [facility] virus Ab Hospital [Presence] in Serum ID Date Data Source [id number] 12/29/2019 03:18:00 PM EDT [facility] Name Value Range Interpretation Description Data Sup porting Code Source(s) Document(s ) Hepatitis B NON-REACT [place] virus surface [facility] Ab [Presence] in Serum ID Date Data Source [id number] 12/29/2019 03:18:00 PM EDT [facility] Name Value Range Interpretation Description Data Sup porting Code Source(s) Document(s ) Hepatitis B NON-REACT [place] virus surface [facility] Ag [Presence] in Serum ID Date Data Source [id number] 12/29/2019 03:18:00 PM EDT [facility] Name Value Range Interpretation Description Data Sup porting Code Source(s) Document(s ) Ferritin 67.0 [place] [Mass/volume ng/mL Hospital ] in Serum or Plasma ID Date Data Source [id number] 12/29/2019 03:18:00 PM EDT [facility] Name Value Range Interpretation Description Data Sup porting Code Source(s) Document(s ) Iron saturation 12 % [facility] [Mass Fraction] Hospital in Serum or Plasma ID Date Data Source [id number] 12/29/2019 03:18:00 PM EDT [facility] Name Value Range Interpretation Description Data Sup porting Code Source(s) Document(s ) UNSAT IRON 309 ug/dL [facility] CAPACITY ID Date Data Source [id number] [facility] Value Range Interpretation Description Data Sup porting Code Source(s) Document(s ) Iron binding 355 ug/dL [facility] Hospital [Mass/volume ] in Serum or Plasma ID Date Data Source [id number] 12/29/2019 03:18:00 PM EDT [facility] Name Value Range Interpretation Code Description Data Supporting Source(s) Document(s ) Iron 46 ug/dL [facility] [Mass/volum Hospital e] in Serum or Plasma ID Date Data Source [id number] 12/29/2019 03:18:00 PM EDT [facility] NOTE: NEW METHODOLOGY ,EFFECTIVE 8.TEST PERFORMED BY [employer] CHEMILUMINESCENCE LOCI TECHNOLOGY.REFERE NCE RANGE APPLIES TO MALES AND NON- FEMALES ONLY.AFP TUMOR MARKER IS NOT TO BE USED A DIAGNOSTIC TOOL WITHOUT CLINICAL EVALUATION. THE ASSAY SHOULD NOT BE USED A SCREENING TEST FOR MALIGNANCY. VALUES OBTAINED WIT H DIFFERENT ASSAY METHODS OR HOLLOW WARE MAKER KITS CANNOT BE USED INTERCHANGEABLY.RESU LTS CANNOT BE INTERPRETED A TUMOR MARKER IN FEMALES. Name Value Range Interpretation Description Data Sup porting Code Source(s) Document(s ) Alpha-1-fet 36.6 ng/mL [place] oprotein.[facility] mor marker [Mass/volum e] in Serum or Plasma ID Date Data Source [id number] 12/29/2019 03:18:00 PM EDT [facility] Name Value Range Interpretation Description Data Sup porting Code Source(s) Document(s ) Bilirubin.d 0.3 mg/dL [facility] Hospital [Mass/volum e] in Serum or Plasma ID Date Data Source [id number] 12/29/2019 03:18:00 PM [facility] Test Performed by:[facility] [place], [place] [address]Ktb Directo r: Mukesh Rudolph M.D. Ph.D.; CLIA# [id number] Name Value Range Interpretation Code Description Data Bryanna rce(s) Supporting Document(s ) ALPHA-1-A 107 mg/dL [facility] N ID Date Data Source [id number] 12/29/2019 03:18:00 PM EDT [facility] HCV RNA QUANTITATION BY OZZIE DIANE Ampl iPrep/DIANE TaqMan HCV TEST v2.0. Name Value Range Interpretation Description Data Sup porting Code Source(s) Document(s ) Hepatitis C 0.00 [place] virus RNA [log {copies} Hospital units/volume] /mL (viral load) in Serum or Plasma by Probe and target amplification method ID Date Data Source [id number] 12/29/2019 03:18:00 PM EDT [facility] NO VIRUS DETECTED. Name Value Range Interpretation Description Data Sup porting Code Source(s) Document(s ) Hepatitis C 0 [place] virus RNA [IU]/mL Hospital [Units/volume] (viral load) in Serum or Plasma by Probe and target amplification method ID Date Data Source [id number] 12/29/2019 03:18:00 PM EDT [facility] Name Value Range Interpretation Description Data Sup porting Code Source(s) Document(s ) Hepatitis B NON-REACT [place] virus core Ab [facility] [Presence] in Serum ID Date Data Source [id number] 12/29/2019 [facility] Name Value Range Interpretation Description Data Sup porting Code Source(s) Document(s ) Hepatitis A NON-REACT [place] virus IgM Ab [facility] [Presence] in Serum ID Date Data Source [id number] 12/29/2019 03:18:00 PM EDT [facility] Name Value Range Interpretation Description Data Sup porting Code Source(s) Document(s ) Hepatitis A REACTIVE [facility] virus Ab Hospital [Presence] in Serum ID Date Data Source [id number] 12/29/2019 03:18:00 PM EDT [facility] Name Value Range Interpretation Description Data Sup porting Code Source(s) Document(s ) Hepatitis B NON-REACT [facility] virus surface [facility] Ab [Presence] in Serum ID Date Data Source [id number] 12/29/2019 03:18:00 PM EDT [facility] Name Value Range Interpretation Description Data Sup porting Code Source(s) Document(s ) Hepatitis B NON-REACT [facility] virus surface [facility] Ag [Presence] in Serum ID Date Data Source [id number] 12/29/2019 03:18:00 PM EDT [facility] Name Value Range Interpretation Description Data Sup porting Code Source(s) Document(s ) Ferritin 67.0 [place] [Mass/volume ng/mL Hospital ] in Serum or Plasma ID Date Data Source [id number] 12/29/2019 03:18:00 PM EDT [facility] Name Value Range Interpretation Description Data Sup porting Code Source(s) Document(s ) Iron saturation 12 % [facility] [Mass Fraction] Hospital in Serum or Plasma ID Date Data Source [id number] 12/29/2019 03:18:00 PM EDT [facility] Name Value Range Interpretation Description Data Sup porting Code Source(s) Document(s ) UNSAT IRON 309 ug/dL [facility] CAPACITY ID Date Data Source [id number] 12/29/2019 03:18:00 PM EDT [facility] Name Value Range Interpretation Description Data Sup porting Code Source(s) Document(s ) Iron binding 355 ug/dL [facility] capacity Hospital [Mass/volume ] in Serum or Plasma ID Date Data Source [id number] 12/29/2019 [facility] Name Value Range Interpretation Code Description Data Supporting Source(s) Document(s ) Iron 46 ug/dL [facility] [Mass/volum Hospital e] in Serum or Plasma ID Date Data Source [id number] 12/29/2019 03:18:[facility] NOTE: NEW METHODOLOGY ,EFFECTIVE 8.TEST PERFORMED BY [employer] CHEMILUMINESCENCE LOCI TECHNOLOGY.REFERE NCE RANGE APPLIES TO MALES AND NON- FEMALES ONLY.AFP TUMOR MARKER IS NOT TO BE USED A DIAGNOSTIC TOOL WITHOUT CLINICAL EVALUATION. THE ASSAY SHOULD NOT BE USED A SCREENING TEST FOR MALIGNANCY. VALUES OBTAINED WIT H DIFFERENT ASSAY METHODS OR HOLLOW WARE MAKER KITS CANNOT BE USED INTERCHANGEABLY.RESU LTS CANNOT BE INTERPRETED A TUMOR MARKER IN FEMALES. Name Value Range Interpretation Description Data Sup porting Code Source(s) Document(s ) Alpha-1-fet 36.6 ng/mL [place] oprotein.[facility] mor marker [Mass/volum e] in Serum or Plasma ID Date Data Source [id number] 12/29/2019 03:18:[facility] Name Value Range Interpretation Description Data Sup porting Code Source(s) Document(s ) Magnesium 2.0 mg/dL [facility] [Mass/volume] Hospital in Serum or Plasma ID Date Data Source [id number] 12/29/2019 03:18:[facility] Name Value Range Interpretation Description Data Sup porting Code Source(s) Document(s ) Aspartate 39 U/L [place] aminotransferase [facility] [Enzymatic Hospital activity/volume] in Serum or Plasma ID Date Data Source [id number] 12/29/2019 03:18:[facility] Name Value Range Interpretation Description Data Sup porting Code Source(s) Document(s ) Alanine 29 U/L [facility] [Enzymatic Hospital activity/volume] in Serum or Plasma ID Date Data Source [id number] 12/29/2019 03:18:00 PM EDT [facility] Name Value Range Interpretation Description Data Sup porting Code Source(s) Document(s ) Alkaline 110 U/L [facility] phosphatase Hospital [Enzymatic activity/volume ] in Serum or Plasma ID Date Data Source [id number] 12/29/2019 03:18:00 PM EDT [facility] Name Value Range Interpretation Description Data Sup porting Code Source(s) Document(s ) Bilirubin.d 0.3 mg/dL [facility] Hospital [Mass/volum e] in Serum or Plasma ID Date Data Source [id number] 12/29/2019 03:18:00 PM EDT [facility] Name Value Range Interpretation Description Data Sup porting Code Source(s) Document(s ) Bilirubin.t 0.8 mg/dL [facility] [Mass/volum e] in Serum or Plasma ID Date Data Source [id number] 12/29/2019 03:18:00 PM EDT [facility] Name Value Range Interpretation Code Description Data Bryanna rce(s) Supporting Document(s ) Albumin/Glob 1.1 [facility] ulin [Mass Hospital Ratio] in Serum or Plasma ID Date Data Source [id number] 12/29/2019 03:18:00 PM EDT [facility] Name Value Range Interpretation Description Data Sup porting Code Source(s) Document(s ) Albumin 3.8 g/dL [facility] [Mass/volume Hospital ] in Serum or Plasma ID Date Data Source [id number] 12/29/2019 03:18:00 PM EDT [facility] Name Value Range Interpretation Description Data Sup porting Code Source(s) Document(s ) Protein 7.3 g/dL [facility] [Mass/volume Hospital ] in Serum or Plasma ID Date Data Source [id number] 12/29/2019 03:18:00 PM EDT [facility] THERAPEUTIC RANGE FOR STANDARD ORALANTIC OAGULANT THERAPY: 2.0-3.0THERAPEUTIC RANGE FOR HIGH DOSE ORALANTICOAGULANT THERAPY (MECHANICAL HEARTVALVE REPLACEMENT): 2.5-3.5 Name Value Range Interpretation Description Data Sup porting Code Source(s) Document(s ) INR in Platelet 1.0 [facility] poor plasma by Hospital Coagulation assay ID Date Data Source [id number] 12/29/2019 03:18:00 PM EDT [facility] Name Value Range Interpretation Description Data Sup porting Code Source(s) Document(s ) PT panel - 11.4 s [facility] Platelet poor [facility] plasma by Coagulation assay ID Date Data Source [id number] 12/29/2019 03:18:00 PM [facility] Test Performed by:[facility] [address] [address] Directo r: Mukesh Rudolph M.D. Ph.D.; CLIA# [id number] Name Value Range Interpretation Code Description Data Bryanna rce(s) Supporting Document(s ) ALPHA-1-A 107 mg/dL [facility] Data Source [id number] 12/29/2019 [facility]:18[facility] RNA QUANTITATION BY OZZIE DIANE Ampl iPrep/DIANE TaqMan HCV TEST v2.0. Name Value Range Interpretation Description Data Sup porting Code Source(s) Document(s ) Hepatitis C 0.00 [place] virus RNA [log {copies} Hospital units/volume] /mL (viral load) in Serum or Plasma by Probe and target amplification method ID Date Data Source [id number] 12/29/2019 03:18[facility]IRUS [facility] Name Value Range Interpretation Description Data Sup porting Code Source(s) Document(s ) Hepatitis C 0 [place] virus RNA [IU]/mL Hospital [Units/volume] (viral load) in Serum or Plasma by Probe and target amplification method ID Date Data Source [id number] 12/29/2019 03:18:00 PM EDT [facility] Name Value Range Interpretation Description Data Sup porting Code Source(s) Document(s ) Hepatitis B NON-REACT [place] virus core Ab [facility] [Presence] in Serum ID Date Data Source [id number] 12/29/2019 [facility] Name Value Range Interpretation Description Data Sup porting Code Source(s) Document(s ) Hepatitis A NON-REACT [place] virus IgM Ab [facility] [Presence] in Serum ID Date Data Source [id number] 12/29/2019 03:18:[facility] Name Value Range Interpretation Description Data Sup porting Code Source(s) Document(s ) Hepatitis A REACTIVE [place] virus Ab Hospital [Presence] in Serum ID Date Data Source [id number] 12/29/2019 03:18:00 PM EDT [facility] Name Value Range Interpretation Description Data Sup porting Code Source(s) Document(s ) Hepatitis B NON-REACT [place] virus surface [facility] Ab [Presence] in Serum ID Date Data Source [id number] 12/29/2019 03:18[facility] Name Value Range Interpretation Description Data Sup porting Code Source(s) Document(s ) Hepatitis B NON-REACT [place] virus surface [facility] Ag [Presence] in Serum ID Date Data Source [id number] 12/29/2019 03:18:00 PM EDT [facility] Name Value Range Interpretation Description Data Sup porting Code Source(s) Document(s ) Ferritin 67.0 [place] [Mass/volume ng/mL Hospital ] in Serum or Plasma ID Date Data Source [id number] 12/29/2019 [facility]:18[facility] Name Value Range Interpretation Description Data Sup porting Code Source(s) Document(s ) Iron saturation 12 % [place] [Mass Fraction] Hospital in Serum or Plasma ID Date Data Source [id number] 12/29/2019 03:18:[facility] Name Value Range Interpretation Description Data Sup porting Code Source(s) Document(s ) UNSAT IRON 309 ug/dL [facility] CAPACITY ID Date Data Source [id number] 12/29/2019 03:18:00 PM [facility] Name Value Range Interpretation Description Data Sup porting Code Source(s) Document(s ) Iron binding 355 ug/dL [facility] capacity Hospital [Mass/volume ] in Serum or Plasma ID Date Data Source [id number] 12/29/2019 03:18:00 PM [facility] Name Value Range Interpretation Code Description Data Supporting Source(s) Document(s ) Iron 46 ug/dL [facility] [Mass/volum Hospital e] in Serum or Plasma ID Date Data Source [id number] 12/29/2019 03:18:00 PM [facility] NOTE: NEW METHODOLOGY ,EFFECTIVE 8.TEST PERFORMED BY [employer] CHEMILUMINESCENCE LOCI TECHNOLOGY.REFERE NCE RANGE APPLIES TO MALES AND NON- FEMALES ONLY.AFP TUMOR MARKER IS NOT TO BE USED A DIAGNOSTIC TOOL WITHOUT CLINICAL EVALUATION. THE ASSAY SHOULD NOT BE USED A SCREENING TEST FOR MALIGNANCY. VALUES OBTAINED WIT H DIFFERENT ASSAY METHODS OR HOLLOW WARE MAKER KITS CANNOT BE USED INTERCHANGEABLY.RESU LTS CANNOT BE INTERPRETED A TUMOR MARKER IN FEMALES. Name Value Range Interpretation Description Data Sup porting Code Source(s) Document(s ) Alpha-1-fet 36.6 ng/mL [place] oprotein.[facility] mor marker [Mass/volum e] in Serum or Plasma ID Date Data Source [id number] 12/29/2019 03:18:00 PM EDT [facility] Name Value Range Interpretation Description Data Sup porting Code Source(s) Document(s ) Bilirubin.d 0.3 mg/dL [facility] [Mass/volum e] in Serum or Plasma ID Date Data Source [id number] 12/29/2019 03:18:[facility] Test Performed by:[facility] [place] [id number] Directo r: Mukesh Rudolph M.D. Ph.D.; CLIA# [id number] Name Value Range Interpretation Code Description Data Bryanna rce(s) Supporting Document(s ) ALPHA-1-A 107 mg/dL [place] [facility] N ID Date Data Source [id number] 12/29/2019 03:18[facility] QUANTITATION BY OZZIE DIANE Ampl iPrep/DIANE TaqMan HCV TEST v2.0. Name Value Range Interpretation Description Data Sup porting Code Source(s) Document(s ) Hepatitis C 0.00 [facility] virus RNA [log {copies} Hospital units/volume] /mL (viral load) in Serum or Plasma by Probe and target amplification method ID Date Data Source [id number] [facility] Name Value Range Interpretation Description Data Sup porting Code Source(s) Document(s ) Hepatitis C 0 [facility] virus RNA [IU]/mL Hospital [Units/volume] (viral load) in Serum or Plasma by Probe and target amplification method ID Date Data Source [id number] 12/29/2019 03:18:00 PM EDT [facility] Name Value Range Interpretation Description Data Sup porting Code Source(s) Document(s ) Hepatitis B NON-REACT [facility] virus core Ab [facility] [Presence] in Serum ID Date Data Source [id number] 12/29/2019 03:18:00 PM EDT [facility] Name Value Range Interpretation Description Data Sup porting Code Source(s) Document(s ) Hepatitis A NON-REACT [facility] virus IgM Ab [facility] [Presence] in Serum ID Date Data Source [id number] 12/29/2019 03:18:00 PM EDT [facility] Name Value Range Interpretation Description Data Sup porting Code Source(s) Document(s ) Hepatitis A REACTIVE [facility] virus Ab Hospital [Presence] in Serum ID Date Data Source [id number] 12/29/2019 03:18:00 PM EDT [facility] Name Value Range Interpretation Description Data Sup porting Code Source(s) Document(s ) Hepatitis B NON-REACT [facility] virus surface [facility] Ab [Presence] in Serum ID Date Data Source [id number] 12/29/2019 03:18:00 PM EDT [facility] Name Value Range Interpretation Description Data Sup porting Code Source(s) Document(s ) Hepatitis B NON-REACT [facility] virus surface [facility] Ag [Presence] in Serum ID Date Data Source [id number] 12/29/2019 03:18:00 PM EDT [facility] Name Value Range Interpretation Description Data Sup porting Code Source(s) Document(s ) Ferritin 67.0 [facility] [Mass/volume ng/mL Hospital ] in Serum or Plasma ID Date Data Source [id number] 12/29/2019 03:18:00 PM EDT [facility] Name Value Range Interpretation Description Data Sup porting Code Source(s) Document(s ) Iron saturation 12 % [facility] [Mass Fraction] Hospital in Serum or Plasma ID Date Data Source [id number] 12/29/2019 03:18:00 PM EDT [facility] Name Value Range Interpretation Description Data Sup porting Code Source(s) Document(s ) UNSAT IRON 309 ug/dL [facility] BINDING Hospital CAPACITY ID Date Data Source [id number] [facility] Name Value Range Interpretation Description Data Sup porting Code Source(s) Document(s ) Iron binding 355 ug/dL [facility] capacity [facility] [Mass/volume ] in Serum or Plasma ID Date Data Source [id number] 12/[facility]2019 [facility] Name Value Range Interpretation Code Description Data Supporting Source(s) Document(s ) Iron 46 ug/dL [facility] [Mass/volum Hospital e] in Serum or Plasma ID Date Data Source [id number] 12/29/2019 03:18:00 PM [facility] NOTE: NEW METHODOLOGY ,EFFECTIVE 8.TEST PERFORMED BY [employer] CHEMILUMINESCENCE LOCI TECHNOLOGY.REFERE NCE RANGE APPLIES TO MALES AND NON- FEMALES ONLY.AFP TUMOR MARKER IS NOT TO BE USED A DIAGNOSTIC TOOL WITHOUT CLINICAL EVALUATION. THE ASSAY SHOULD NOT BE USED A SCREENING TEST FOR MALIGNANCY. VALUES OBTAINED WIT H DIFFERENT ASSAY METHODS OR HOLLOW WARE MAKER KITS CANNOT BE USED INTERCHANGEABLY.RESU LTS CANNOT BE INTERPRETED A TUMOR MARKER IN FEMALES. Name Value Range Interpretation Description Data Sup porting Code Source(s) Document(s ) Alpha-1-fet 36.6 ng/mL [facility] oprotein. Hospital mor marker [Mass/volum e] in Serum or Plasma ID Date Data Source [id number] 12/29/2019 [facility] Name Value Range Interpretation Description Data Sup porting Code Source(s) Document(s ) Bilirubin.d 0.3 mg/dL [facility] [Mass/volum e] in Serum or Plasma ID Date Data Source [id number] 12/21/2019 08:29:00 AM [facility] Pediatric Allergist:TRACIE ACE Name Value Range Interpretation Description Data Sup porting Code Source(s) Document(s ) Glucose 327 mg/dL [facility] [Mass/volume] [facility] in Capillary blood by Glucometer ID Date Data Source [id number] 12/21/2019 07:35:00 AM [facility] CUT-OFF >= 25 NG/ML.THE FINDINGS OF THE URINE DRUG SCREEN ARE USED SOLELY FOR PATIENT MANAGEMENT AND GUIDANCE. THE RESULTS FREEDOM ULD NOT BE USED FOR FORENSIC PURPOSE. ANY CLINICALLY UNSUSPECTED POSITIVE DRUG SCR EEN CAN BE CONFIRMED BY CALLING THE LABORATORY 3 DAYS WITHIN RECEIPT OF REPO RT. Name Value Range Interpretation Code Description Data Bryanna rce(s) Supporting Document(s ) PCP (UR) NEGATIVE [facility] ID Date Data Source [id number] 12/21/2019 07:35:00 AM [facility] CUT-OFF >= 50 NG/ML. Name Value Range Interpretation Code Description Data Bryanna rce(s) Supporting Document(s ) THC (UR) NEGATIVE [facility] ID Date Data Source [id number] 12/21/2019 07:35:00 AM [facility] CUT-OFF >= 300 NG/ML. Name Value Range Interpretation Description Data Sup porting Code Source(s) Document(s ) OPIATES (UR) NEGATIVE [facility] ID Date Data Source [id number] 12/21/2019 07:35:00 AM [facility] CUT-OFF >= 300 NG/ML. Name Value Range Interpretation Description Data Sup porting Code Source(s) Document(s ) COCAINE (UR) POSITIVE [facility] ID Date Data Source [id number] 12/21/2019 07:35:00 AM EDT [facility] CUT-OFF >= 200 NG/ML. Name Value Range Interpretation Description Data Sup porting Code Source(s) Document(s ) BENZODIAZEPINES NEGATIVE [facility] (UR) [facility] ID Date Data Source [id number] 12/21/2019 07:35:00 AM EDT [facility] CUT-OFF >= 200 NG/ML. Name Value Range Interpretation Description Data Sup porting Code Source(s) Document(s ) BARBITURATES NEGATIVE [facility] (UR) Hospital ID Date Data Source [id number] 12/21/2019 07:35:00 AM EDT [facility] CUT-OFF >= 1000 NG/ML. Name Value Range Interpretation Description Data Sup porting Code Source(s) Document(s ) AMPHETAMINES NEGATIVE [facility] (UR) Hospital ID Date Data Source [id number] 12/21/2019 07:35:00 AM EDT [facility] CUT-OFF >= 1000 NG/ML. Name Value Range Interpretation Description Data Sup porting Code Source(s) Document(s ) AMPHETAMINES NEGATIVE [facility] (UR) Hospital ID Date Data Source [id number] 12/21/2019 07:35:00 AM EDT [facility] Name Value Range Interpretation Description Data Sup porting Code Source(s) Document(s ) Leukocyte NEGATIVE [facility] esterase [facility] [Presence] in Urine by Test strip ID Date Data Source [id number] 12/21/2019 07:35:00 AM EDT [facility] Name Value Range Interpretation Description Data Sup porting Code Source(s) Document(s ) URINE NEGATIVE [facility] NITRITES Hospital ID Date Data Source [id number] 12/21/2019 07:35:00 AM EDT [facility] Name Value Range Interpretation Description Data Sup porting Code Source(s) Document(s ) Erythrocytes NEGATIVE [facility] [#/volume] in Hospital Urine by Test strip ID Date Data Source [id number] 12/21/2019 07:35:00 AM EDT [facility] Name Value Range Interpretation Code Description Data Bryanna rce(s) Supporting Document(s ) Bilirubin. NEGATIVE [facility] total Hospital [Presence] in Urine by Test strip ID Date Data Source [id number] 12/21/2019 07:35:00 AM EDT [facility] Name Value Range Interpretation Description Data Sup porting Code Source(s) Document(s ) Urobilinogen 1.0 [facility] [Units/volume] mg/dL Hospital in Urine by Test strip ID Date Data Source [id number] 12/21/2019 07:35:00 AM EDT [facility] Name Value Range Interpretation Description Data Sup porting Code Source(s) Document(s ) Ketones NEGATIVE [facility] [Mass/volume Hospital ] in Urine by Test strip ID Date Data Source [id number] 12/21/2019 07:35:00 AM EDT [facility] Name Value Range Interpretation Code Description Data Bryanna rce(s) Supporting Document(s ) Glucose 3+ [facility] [Mass/volume Hospital ] in Urine by Test strip ID Date Data Source [id number] 12/21/2019 07:35:00 AM EDT [facility] Name Value Range Interpretation Description Data Sup porting Code Source(s) Document(s ) Protein NEGATIVE [facility] [Presence] Hospital in Urine by Test strip ID Date Data Source [id number] 12/21/2019 07:35:00 AM EDT [facility] Name Value Range Interpretation Code Description Data Bryanna rce(s) Supporting Document(s ) pH of Urine 8.0 [facility] by Test Hospital strip ID Date Data Source [id number] 12/21/2019 07:35:00 AM EDT [facility] Name Value Range Interpretation Code Description Data Supporting Source(s) Document(s ) Specific 1.023 [facility] gravity of Hospital Urine by Test strip ID Date Data Source [id number] 12/[facility]2019 [facility] Value Range Interpretation Description Data Sup porting Code Source(s) Document(s ) Clarity in Urine CLEAR [facility] by Refractometry [facility] automated ID Date Data Source [id number] 12/21/2019 [facility] Name Value Range Interpretation Code Description Data Bryanna rce(s) Supporting Document(s ) Color of YELLOW [facility] Urine Hospital ID Date Data Source [id number] 12/21/2019 07:35:00 AM [facility] CUT-OFF >= 25 NG/ML.THE FINDINGS OF THE URINE DRUG SCREEN ARE USED SOLELY FOR PATIENT MANAGEMENT AND GUIDANCE. THE RESULTS FREEDOM ULD NOT BE USED FOR FORENSIC PURPOSE. ANY CLINICALLY UNSUSPECTED POSITIVE DRUG SCR EEN CAN BE CONFIRMED BY CALLING THE LABORATORY 3 DAYS WITHIN RECEIPT OF REPO RT. Name Value Range Interpretation Code Description Data Bryanna rce(s) Supporting Document(s ) PCP (UR) NEGATIVE [facility] ID Date Data Source [id number] 12/21/2019 [facility] CUT-[facility] >= 50 NG/ML. Name Value Range Interpretation Code Description Data Bryanna rce(s) Supporting Document(s ) THC (UR) NEGATIVE [facility] ID Date Data Source [id number] 12/21/2019 [facility] CUT-[facility] >= 300 NG/ML. Name Value Range Interpretation Description Data Sup porting Code Source(s) Document(s ) OPIATES (UR) NEGATIVE [facility] ID Date Data Source [id number] 12/21/2019 07:35:00 AM EDT [facility] CUT-OFF >= 300 NG/ML. Name Value Range Interpretation Description Data Sup porting Code Source(s) Document(s ) COCAINE (UR) POSITIVE [facility] ID Date Data Source [id number] 12/21/2019 07:35:00 AM EDT [facility] CUT-OFF >= 200 NG/ML. Name Value Range Interpretation Description Data Sup porting Code Source(s) Document(s ) BENZODIAZEPINES NEGATIVE [place] (UR) [facility] ID Date Data Source [id number] 12/21/2019 07:35:00 AM EDT [facility] CUT-OFF >= 200 NG/ML. Name Value Range Interpretation Description Data Sup porting Code Source(s) Document(s ) BARBITURATES NEGATIVE [facility] (UR) Hospital ID Date Data Source [id number] 12/21/2019 [facility]46[facility] Name Value Range Interpretation Description Data Sup porting Code Source(s) Document(s ) GLUCOSE Notified [facility] Hospital ID Date Data Source [id number] 12/21/2019 06[facility]46:[facility] Name Value Range Interpretation Description Data Sup porting Code Source(s) Document(s ) GLUCOSE Notified [facility] Hospital ID Date Data Source [id number] 12/21/2019 06:46:[facility] Name Value Range Interpretation Description Data Sup porting Code Source(s) Document(s ) GLUCOSE RN Notified [facility] Hospital ID Date Data Source [id number] 12/21/2019 06:46:[facility] Name Value Range Interpretation Description Data Sup porting Code Source(s) Document(s ) GLUCOSE MD Notified [place] [address] Hospital ID Date Data Source [id number] 12/21/2019 06:46:00 AM EDT [facility] Name Value Range Interpretation Description Data Sup porting Code Source(s) Document(s ) GLUCOSE MD Notified [place] [address] Hospital ID Date Data Source [id number] 12/21/2019 06:46:[facility] Name Value Range Interpretation Description Data Sup porting Code Source(s) Document(s ) GLUCOSE RN Notified [facility] Hospital ID Date Data Source [id number] 12/21/2019 06:33:00 AM [facility] REFERENCE RANGES: NONE DETECTED <20 MG/DL NONE TO MILD EUPHORIA 20-49 MG/DL MILD EUPHORIA 50-99 MG/DL MODERATE EUPHORIA 100-149 MG/DL INTOXICATION 150-300 MG/DL Name Value Range Interpretation Description Data Sup porting Code Source(s) Document(s ) Ethanol < 20 [facility] [Mass/volume mg/dL Hospital ] in Serum or Plasma ID Date Data Source [id number] 12/21/2019 06:33:00 AM [facility] TEST PERFORMED BY [employer] [facility] SENS[facility] CHEMILUMINESCENCE METHOD. Name Value Range Interpretation Description Data Sup porting Code Source(s) Document(s ) Troponin 0.01 [facility] I.cardiac ng/mL Hospital [Mass/volume ] in Serum or Plasma ID Date Data Source [id number] 12/21/2019 06:33:00 AM [facility] THERAPEUTIC RANGES:UNFRACTIONATED HEPARI N THERAPY: 60-90 SECONDSARGATROBAN THERAPY: 49-99 SECONDS Name Value Range Interpretation Description Data Sup porting Code Source(s) Document(s ) aPTT in 29.0 s [facility] Platelet poor Hospital plasma by Coagulation assay ID Date Data Source [id number] 12/21/2019 06:33:00 AM [facility] REFERENCE RANGES: NONE DETECTED <20 MG/DL NONE TO MILD EUPHORIA 20-49 MG/DL MILD EUPHORIA 50-99 MG/DL MODERATE EUPHORIA 100-149 MG/DL INTOXICATION 150-300 MG/DL Name Value Range Interpretation Description Data Sup porting Code Source(s) Document(s ) Ethanol < 20 [facility] [Mass/volume mg/dL Hospital ] in Serum or Plasma ID Date Data Source [id number] 12/21/2019 06:33:00 AM [facility] TEST PERFORMED BY [employer] [facility] CHEMILUMINESCENCE METHOD. Name Value Range Interpretation Description Data Sup porting Code Source(s) Document(s ) Troponin 0.01 [facility] I.cardiac ng/mL Hospital [Mass/volume ] in Serum or Plasma ID Date Data Source [id number] 12/21/2019 06:33:00 AM [facility] Name Value Range Interpretation Description Data Sup porting Code Source(s) Document(s ) Aspartate 90 U/L [facility] aminotransferase [facility] [Enzymatic Hospital activity/volume] in Serum or Plasma ID Date Data Source [id number] 12/21/2019 06:33:00 AM [facility] Name Value Range Interpretation Description Data Sup porting Code Source(s) Document(s ) Alanine 35 U/L [facility] aminotransferase [facility] [Enzymatic Hospital activity/volume] in Serum or Plasma ID Date Data Source [id number] 12/21/2019 06:33:00 AM [facility] Name Value Range Interpretation Description Data Sup porting Code Source(s) Document(s ) Alkaline 75 U/L [facility] phosphatase Hospital [Enzymatic activity/volume ] in Serum or Plasma ID Date Data Source [id number] 12/21/2019 06:33:00 AM EDT [facility] Name Value Range Interpretation Description Data Sup porting Code Source(s) Document(s ) Bilirubin.t 1.0 mg/dL [facility] [Mass/volum e] in Serum or Plasma ID Date Data Source [id number] 12/21/2019 06:33:00 AM EDT [facility] Name Value Range Interpretation Code Description Data Bryanna rce(s) Supporting Document(s ) Albumin/Glob 1.2 [facility] ulin [Mass Hospital Ratio] in Serum or Plasma ID Date Data Source [id number] 12/21/2019 06:33:00 AM EDT [facility] Name Value Range Interpretation Description Data Sup porting Code Source(s) Document(s ) Albumin 3.8 g/dL [facility] [Mass/volume Hospital ] in Serum or Plasma ID Date Data Source [id number] 12/21/2019 06:33:00 AM EDT [facility] Name Value Range Interpretation Description Data Sup porting Code Source(s) Document(s ) Protein 7.1 g/dL [facility] [Mass/volume Hospital ] in Serum or Plasma ID Date Data Source [id number] 12/21/2019 06:33:00 AM EDT [facility] Name Value Range Interpretation Description Data Sup porting Code Source(s) Document(s ) Calcium 9.1 mg/dL [facility] [Mass/volume Hospital ] in Serum or Plasma ID Date Data Source [id number] 12/21/2019 06:33:00 AM EDT [facility] Name Value Range Interpretation Code Description Data Bryanna rce(s) Supporting Document(s ) Urea 13.8 [facility] nitrogen/Cre Hospital atinine [Mass Ratio] in Serum or Plasma ID Date Data Source [id number] 12/21/2019 06:33:00 AM EDT [facility] Name Value Range Interpretation Description Data Sup porting Code Source(s) Document(s ) Creatinine 0.8 mg/dL [facility] [Mass/volume] Hospital in Serum or Plasma ID Date Data Source [id number] 12/21/2019 06:33:00 AM EDT [facility] Name Value Range Interpretation Description Data Sup porting Code Source(s) Document(s ) Urea 11 mg/dL [facility] nitrogen Hospital [Mass/volume ] in Serum or Plasma ID Date Data Source [id number] 12/21/2019 06:33:00 AM EDT [facility] Value Range Interpretation Code Description Data Bryanna rce(s) Supporting Document(s ) Anion gap in 14 [facility] Serum or [facility] Plasma ID Date Data Source [id number] 12/21/2019 06:33:00 AM EDT [facility] Name Value Range Interpretation Description Data Sup porting Code Source(s) Document(s ) Carbon 28 mmol/L [facility] dioxide, Hospital total [Moles/volu me] in Serum or Plasma ID Date Data Source [id number] 12/21/2019 06:33:00 AM EDT [facility] Name Value Range Interpretation Description Data Sup porting Code Source(s) Document(s ) Chloride 102 [facility] [Moles/volum mmol/L Hospital e] in Serum or Plasma ID Date Data Source [id number] 12/21/2019 06:33:00 AM EDT [facility]OLYS[facility] Name Value Range Interpretation Description Data Sup porting Code Source(s) Document(s ) Potassium 5.7 [facility] [Moles/volume mmol/L Hospital ] in Serum or Plasma ID Date Data Source [id number] 12/21/2019 [facility] Value Range Interpretation Description Data Sup porting Code Source(s) Document(s ) Sodium 138 mmol/L [facility] [[facility]] in Serum or Plasma ID Date Data Source [id number] 12/21/2019 [facility] Name Value Range Interpretation Description Data Sup porting Code Source(s) Document(s ) Glucose 351 mg/dL [facility] [[facility] ] in Serum or Plasma ID Date Data Source [id number] 12/21/2019 06:33:00 AM [facility] THERAPEUTIC RANGES:UNFRACTIONATED HEPARI N THERAPY: 60-90 SECONDSARGATROBAN THERAPY: 49-99 SECONDS Name Value Range Interpretation Description Data Sup porting Code Source(s) Document(s ) aPTT in 29.0 s [facility] Platelet poor [facility] plasma by Coagulation assay ID Date Data Source [id number] 12/21/2019 06:33:00 AM [facility] THERAPEUTIC RANGE FOR STANDARD ORALANTIC OAGULANT THERAPY: 2.0-3.0THERAPEUTIC RANGE FOR HIGH DOSE ORALANTICOAGULANT THERAPY (MECHANICAL HEARTVALVE REPLACEMENT): 2.5-3.5 Name Value Range Interpretation Description Data Sup porting Code Source(s) Document(s ) INR in Platelet 1.0 [facility] poor plasma by Hospital Coagulation assay ID Date Data Source [id number] 12/21/2019 06:33:00 AM [facility] Name Value Range Interpretation Description Data Sup porting Code Source(s) Document(s ) PT panel - 12.2 s [facility] Platelet poor [facility] plasma by Coagulation assay ID Date Data Source [id number] 12/21/2019 06:33:00 AM EDT [facility] Value Range Interpretation Description Data Sup porting Code Source(s) Document(s ) Platelet mean 12.5 fL [facility] volume Hospital [Entitic volume] in Blood by Automated count ID Date Data Source [id number] 12/21/2019 06:33:00 AM EDT [facility] Value Range Interpretation Description Data Sup porting Code Source(s) Document(s ) Platelets 184 [facility] [#/volume] in 10*3/uL Hospital Blood by Automated count ID Date Data Source [id number] 12/21/2019 06:33:00 AM EDT [facility] Value Range Interpretation Description Data Sup porting Code Source(s) Document(s ) Erythrocyte 14.5 % [facility] Hospital width [Ratio] by Automated count ID Date Data Source [id number] 12/[facility]2019 [facility] Interpretation Description Data Sup porting Code Source(s) Document(s ) Erythrocyte mean 33.5 [facility] corpuscular g/dL Hospital hemoglobin concentration [Mass/volume] by Automated count ID Date Data Source [id number] 12/21/2019 [facility]:33[facility] Value Range Interpretation Description Data Sup porting Code Source(s) Document(s ) Erythrocyte 30.4 pg [facility] corpuscular hemoglobin [Entitic mass] by Automated count ID Date Data Source [id number] 12/21/2019 06:33[facility] Value Range Interpretation Description Data Sup porting Code Source(s) Document(s ) Erythrocyte 90.6 fL [facility] corpuscular volume [Entitic volume] by Automated count ID Date Data Source [id number] 12/21/2019 06:33:00 AM EDT [facility] Name Value Range Interpretation Description Data Sup porting Code Source(s) Document(s ) Hematocrit 35.5 % [facility] [Volume Hospital Fraction] of Blood by Automated count ID Date Data Source [id number] 12/21/2019 06:33:00 AM EDT [facility] Name Value Range Interpretation Description Data Sup porting Code Source(s) Document(s ) Hemoglobin 11.9 g/dL [facility] [Mass/volume] Hospital in Blood ID Date Data Source [id number] 12/21/2019 06:33:00 AM EDT [facility] Name Value Range Interpretation Description Data Sup porting Code Source(s) Document(s ) Erythrocytes 3.92 [facility] [#/volume] in 10*6/uL Hospital Blood by Automated count ID Date Data Source [id number] 12/21/2019 06:33:00 AM EDT [facility] Name Value Range Interpretation Description Data Sup porting Code Source(s) Document(s ) Leukocytes 7.1 [place] [#/volume] in 10*3/uL Hospital Blood by Automated count ID Date Data Source [id number] 12/20/2019 06:38:00 AM [facility] Pediatric Allergist:MARQUITA RAMIREZ Name Value Range Interpretation Description Data Sup porting Code Source(s) Document(s ) Glucose 190 mg/dL [facility] [Mass/volume] Hospital in Capillary blood by Glucometer ID Date Data Source [id number] [facility] Interpretation Description Data Sup porting Code Source(s) Document(s ) Manual MANUAL [facility] differential Hospital performed [Presence] in Blood ID Date Data Source [id number] 12/19/2019 10:18:00 AM [facility] Name Value Range Interpretation Code Description Data Bryanna rce(s) Supporting Document(s ) Cells 100 [facility] Total [#] in Blood ID Date Data Source [id number] 12/19/2019 10:18:00 AM EDT [facility] Name Value Range Interpretation Code Description Data Supporting Source(s) Document(s ) PLATELET NORMAL [facility] ID Date Data Source [id number] 12/19/2019 10:18:00 AM EDT [facility] Name Value Range Interpretation Code Description Data Bryanna rce(s) Supporting Document(s ) TARGET CELLS [facility] ID Date Data Source [id number] 12/19/2019 10:18:00 AM EDT [facility] Value Range Interpretation Code Description Data Supporting Source(s) Document(s ) POLYCHROMASIA [facility] ID Date Data Source [id number] 12/19/2019 10:18:00 AM EDT [facility] Value Range Interpretation Code Description Data Bryanna rce(s) Supporting Document(s ) HYPOCHROMIA [facility] ID Date Data Source [id number] 12/19/2019 10:18:00 AM EDT [facility] Value Range Interpretation Description Data Sup porting Code Source(s) Document(s ) POIKILOCYTOSIS [facility] ID Date Data Source [id number] 12/19/2019 10:18:00 AM EDT [facility] Value Range Interpretation Code Description Data Bryanna rce(s) Supporting Document(s ) ANISOCYTOSIS [facility] ID Date Data Source [id number] 12/19/2019 10:18:00 AM EDT [facility] Value Range Interpretation Description Data Sup porting Code Source(s) Document(s ) Eosinophils 0.22 [place] [#/volume] in 10*3/uL Hospital Blood by Manual count ID Date Data Source [id number] 12/19/2019 10:18:00 AM EDT [facility] Name Value Range Interpretation Description Data Sup porting Code Source(s) Document(s ) Monocytes 0.52 [place] [#/volume] in 10*3/uL Hospital Blood by Manual count ID Date Data Source [id number] 12/19/2019 10:18:00 AM EDT [facility] Value Range Interpretation Description Data Sup porting Code Source(s) Document(s ) Lymphocytes 1.89 [place] [#/volume] in 10*3/uL Hospital Blood by Manual count ID Date Data Source [id number] 12/19/2019 10:18:00 AM EDT [facility] Value Range Interpretation Description Data Sup porting Code Source(s) Document(s ) Neutrophils 1.07 [place] [#/volume] in 10*3/uL Hospital Blood by Manual count ID Date Data Source [id number] 12/19/2019 10:18:00 AM EDT [facility] Value Range Interpretation Description Data Sup porting Code Source(s) Document(s ) Eosinophils/100 6 % [facility] leukocytes in Hospital Blood by Manual count ID Date Data Source [id number] 12/19/2019 10:18:00 AM EDT [facility] Value Range Interpretation Description Data Sup porting Code Source(s) Document(s ) Monocytes/100 14 % [place] leukocytes in Hospital Blood by Manual count ID Date Data Source [id number] 12/19/2019 10:18:00 AM EDT [facility] Value Range Interpretation Description Data Sup porting Code Source(s) Document(s ) Lymphocytes/100 51 % [place] leukocytes in Hospital Blood by Manual count ID Date Data Source [id number] 12/19/2019 10:18:00 AM EDT [facility] Value Range Interpretation Description Data Sup porting Code Source(s) Document(s ) Band form 1 % [facility] neutrophils/100 Hospital leukocytes in Blood ID Date Data Source [id number] 12/19/2019 10:18:00 AM EDT [facility] Value Range Interpretation Description Data Sup porting Code Source(s) Document(s ) Neutrophils/100 28 % [place] leukocytes in Hospital Blood by Manual count ID Date Data Source [id number] 12/19/2019 10:18:00 AM EDT [facility] Value Range Interpretation Description Data Sup porting Code Source(s) Document(s ) Manual MANUAL [facility] differential [facility] performed [Presence] in Blood ID Date Data Source [id number] 12/19/2019 10:18:00 AM EDT [facility] Value Range Interpretation Code Description Data Bryanna rce(s) Supporting Document(s ) Cells 100 [facility] Total [#] in Blood ID Date Data Source [id number] 12/19/2019 10:18:00 AM EDT [facility] Value Range Interpretation Code Description Data Supporting Source(s) Document(s ) PLATELET NORMAL [facility] ID Date Data Source [id number] 12/19/2019 10:18:00 AM EDT [facility] Value Range Interpretation Code Description Data Bryanna rce(s) Supporting Document(s ) TARGET CELLS OCC [facility] ID Date Data Source [id number] 12/19/2019 10:18:00 AM EDT [facility] Value Range Interpretation Code Description Data Supporting Source(s) Document(s ) POLYCHROMASIA OCC [facility] ID Date Data Source [id number] 12/19/2019 10:18:00 AM EDT [facility] Name Value Range Interpretation Code Description Data Bryanna rce(s) Supporting Document(s ) HYPOCHROMIA [facility] ID Date Data Source [id number] 12/19/2019 10:18:00 AM EDT [facility] Value Range Interpretation Description Data Sup porting Code Source(s) Document(s ) POIKILOCYTOSIS [facility] ID Date Data Source [id number] 12/19/2019 10:18:00 AM EDT [facility] Value Range Interpretation Code Description Data Bryanna rce(s) Supporting Document(s ) ANISOCYTOSIS [facility] ID Date Data Source [id number] 12/19/2019 10:18:00 AM EDT [facility] Value Range Interpretation Description Data Sup porting Code Source(s) Document(s ) Eosinophils 0.22 [place] [#/volume] in 10*3/uL Hospital Blood by Manual count ID Date Data Source [id number] 12/19/2019 10:18:00 AM EDT [facility] Value Range Interpretation Description Data Sup porting Code Source(s) Document(s ) Monocytes 0.52 [place] [#/volume] in 10*3/uL Hospital Blood by Manual count ID Date Data Source [id number] 12/19/2019 10:18:00 AM EDT [facility] Value Range Interpretation Description Data Sup porting Code Source(s) Document(s ) Lymphocytes 1.89 [place] [#/volume] in 10*3/uL Hospital Blood by Manual count ID Date Data Source [id number] 12/19/2019 10:18:00 AM EDT [facility] Value Range Interpretation Description Data Sup porting Code Source(s) Document(s ) Neutrophils 1.07 [place] [#/volume] in 10*3/uL Hospital Blood by Manual count ID Date Data Source [id number] 12/19/2019 10:18:00 AM EDT [facility] Value Range Interpretation Description Data Sup porting Code Source(s) Document(s ) Eosinophils/100 6 % [facility] leukocytes in Hospital Blood by Manual count ID Date Data Source [id number] 12/19/2019 10:18:00 AM EDT [facility] Value Range Interpretation Description Data Sup porting Code Source(s) Document(s ) Monocytes/100 14 % [place] leukocytes in [facility] Blood by Manual count ID Date Data Source [id number] 12/19/2019 10:18:00 AM EDT [facility] Value Range Interpretation Description Data Sup porting Code Source(s) Document(s ) Lymphocytes/100 51 % [place] leukocytes in [facility] Blood by Manual count ID Date Data Source [id number] 12/19/2019 10:18:00 AM EDT [facility] Value Range Interpretation Description Data Sup porting Code Source(s) Document(s ) Band form 1 % [facility] neutrophils/100 Hospital leukocytes in Blood ID Date Data Source [id number] 12/19/2019 10:18:00 AM EDT [facility] Value Range Interpretation Description Data Sup porting Code Source(s) Document(s ) Neutrophils/100 28 % [place] leukocytes in [facility] Blood by Manual count ID Date Data Source [id number] 12/19/2019 10:18:00 AM EDT [facility] Value Range Interpretation Description Data Sup porting Code Source(s) Document(s ) Manual MANUAL [facility] differential [facility] performed [Presence] in Blood ID Date Data Source [id number] 12/19/2019 10:18:00 AM EDT [facility] Name Value Range Interpretation Code Description Data Bryanna rce(s) Supporting Document(s ) Cells 100 [facility] Total [#] in Blood ID Date Data Source [id number] 12/19/2019 10:18:00 AM EDT [facility] Name Value Range Interpretation Code Description Data Supporting Source(s) Document(s ) PLATELET NORMAL [facility] ID Date Data Source [id number] 12/19/2019 10:18:00 AM EDT [facility] Value Range Interpretation Code Description Data Bryanna rce(s) Supporting Document(s ) TARGET CELLS [facility] ID Date Data Source [id number] 12/19/2019 10:18:00 AM EDT [facility] Value Range Interpretation Code Description Data Supporting Source(s) Document(s ) POLYCHROMASIA [facility] ID Date Data Source [id number] 12/19/2019 10:18:00 AM EDT [facility] Value Range Interpretation Code Description Data Bryanna rce(s) Supporting Document(s ) HYPOCHROMIA [facility] ID Date Data Source [id number] 12/19/2019 10:18:00 AM EDT [facility] Value Range Interpretation Description Data Sup porting Code Source(s) Document(s ) POIKILOCYTOSIS [facility] Hospital ID Date Data Source [id number] 12/19/2019 10:18:00 AM EDT [facility] Value Range Interpretation Code Description Data Bryanna rce(s) Supporting Document(s ) ANISOCYTOSIS [facility] Hospital ID Date Data Source [id number] 12/19/2019 10:18:00 AM EDT [facility] Name Value Range Interpretation Description Data Sup porting Code Source(s) Document(s ) Eosinophils 0.22 [place] [#/volume] in 10*3/uL Hospital Blood by Manual count ID Date Data Source [id number] 12/19/2019 10:18:00 AM EDT [facility] Name Value Range Interpretation Description Data Sup porting Code Source(s) Document(s ) Monocytes 0.52 [place] [#/volume] in 10*3/uL Hospital Blood by Manual count ID Date Data Source [id number] 12/19/2019 10:18:00 AM EDT [facility] Name Value Range Interpretation Description Data Sup porting Code Source(s) Document(s ) Lymphocytes 1.89 [place] [#/volume] in 10*3/uL Hospital Blood by Manual count ID Date Data Source [id number] 12/19/2019 10:18:00 AM EDT [facility] Value Range Interpretation Description Data Sup porting Code Source(s) Document(s ) Neutrophils 1.07 [place] [#/volume] in 10*3/uL Hospital Blood by Manual count ID Date Data Source [id number] 12/19/2019 10:18:00 AM EDT [facility] Value Range Interpretation Description Data Sup porting Code Source(s) Document(s ) Eosinophils/100 6 % [place] leukocytes in Hospital Blood by Manual count ID Date Data Source [id number] 12/19/2019 10:18:00 AM EDT [facility] Name Value Range Interpretation Description Data Sup porting Code Source(s) Document(s ) Monocytes/100 14 % [place] leukocytes in Hospital Blood by Manual count ID Date Data Source [id number] 12/19/2019 10:18:00 AM EDT [facility] Name Value Range Interpretation Description Data Sup porting Code Source(s) Document(s ) Lymphocytes/100 51 % [place] leukocytes in Hospital Blood by Manual count ID Date Data Source [id number] 12/19/2019 10:18:00 AM EDT [facility] Name Value Range Interpretation Description Data Sup porting Code Source(s) Document(s ) Band form 1 % [facility] neutrophils/100 Hospital leukocytes in Blood ID Date Data Source [id number] 12/19/2019 10:18:00 AM EDT [facility] Value Range Interpretation Description Data Sup porting Code Source(s) Document(s ) Neutrophils/100 28 % [place] leukocytes in Hospital Blood by Manual count ID Date Data Source [id number] 12/19/2019 10:18:00 AM EDT [facility] Value Range Interpretation Description Data Sup porting Code Source(s) Document(s ) Manual MANUAL [facility] differential [facility] performed [Presence] in Blood ID Date Data Source [id number] 12/19/2019 10:18:00 AM EDT [facility] Value Range Interpretation Code Description Data Bryanna rce(s) Supporting Document(s ) Cells 100 [facility] Total [#] in Blood ID Date Data Source [id number] 12/19/2019 10:18:00 AM EDT [facility] Value Range Interpretation Code Description Data Supporting Source(s) Document(s ) PLATELET NORMAL [facility] ID Date Data Source [id number] 12/19/2019 10:18:00 AM EDT [facility] Value Range Interpretation Code Description Data Bryanna rce(s) Supporting Document(s ) TARGET CELLS OCC [facility] ID Date Data Source [id number] 12/19/2019 10:18:00 AM EDT [facility] Name Value Range Interpretation Code Description Data Supporting Source(s) Document(s ) POLYCHROMASIA [facility] ID Date Data Source [id number] 12/19/2019 10:18:00 AM EDT [facility] Name Value Range Interpretation Code Description Data Bryanna rce(s) Supporting Document(s ) HYPOCHROMIA [facility] ID Date Data Source [id number] 12/19/2019 10:18:00 AM EDT [facility] Value Range Interpretation Description Data Sup porting Code Source(s) Document(s ) POIKILOCYTOSIS [facility] ID Date Data Source [id number] 12/19/2019 10:18:00 AM EDT [facility] Value Range Interpretation Code Description Data Bryanna rce(s) Supporting Document(s ) ANISOCYTOSIS [facility] ID Date Data Source [id number] 12/[facility] Interpret[facility] Description Data Sup porting Code Source(s) Document(s ) Eosinophils 0.22 [place] [#/volume] in 10*3/uL Hospital Blood by Manual count ID Date Data Source [id number] 12/19/2019 10:18:00 AM EDT [facility] Value Range Interpretation Description Data Sup porting Code Source(s) Document(s ) Monocytes 0.52 [place] [#/volume] in 10*3/uL Hospital Blood by Manual count ID Date Data Source [id number] 12/19/2019 10:18:00 AM EDT [facility] Value Range Interpretation Description Data Sup porting Code Source(s) Document(s ) Lymphocytes 1.89 [place] [#/volume] in 10*3/uL Hospital Blood by Manual count ID Date Data Source [id number] 12/19/2019 10:18:00 AM EDT [facility] Value Range Interpretation Description Data Sup porting Code Source(s) Document(s ) Neutrophils 1.07 [place] [#/volume] in 10*3/uL Hospital Blood by Manual count ID Date Data Source [id number] 12/19/2019 10:18:00 AM EDT [facility] Value Range Interpretation Description Data Sup porting Code Source(s) Document(s ) Eosinophils/100 6 % [place] leukocytes in Hospital Blood by Manual count ID Date Data Source [id number] 12/19/2019 10:18:00 AM EDT [facility] Value Range Interpretation Description Data Sup porting Code Source(s) Document(s ) Monocytes/100 14 % [place] leukocytes in Hospital Blood by Manual count ID Date Data Source [id number] 12/19/2019 10:18:00 AM EDT [facility] Value Range Interpretation Description Data Sup porting Code Source(s) Document(s ) Lymphocytes/100 51 % [place] leukocytes in Hospital Blood by Manual count ID Date Data Source [id number] 12/19/2019 10:18:00 AM EDT [facility] Value Range Interpretation Description Data Sup porting Code Source(s) Document(s ) Band form 1 % [place] neutrophils/100 Hospital leukocytes in Blood ID Date Data Source [id number] 12/19/2019 10:18:00 AM EDT [facility] Value Range Interpretation Description Data Sup porting Code Source(s) Document(s ) Neutrophils/100 28 % [place] leukocytes in Hospital Blood by Manual count ID Date Data Source [id number] 12/19/2019 [facility] Interpretation Description Data Sup porting Code Source(s) Document(s ) Platelet mean 12.2 fL [facility] [Entitic volume] in Blood by Automated count ID Date Data Source [id number] 12/19/2019 [facility]:18[facility] Value Range Interpretation Description Data Sup porting Code Source(s) Document(s ) Platelets 164 [place] [#/volume] in 10*3/uL Hospital Blood by Automated count ID Date Data Source [id number] 12/19/2019 10:18:[address] [facility] Value Range Interpretation Description Data Sup porting Code Source(s) Document(s ) Erythrocyte 14.1 % [facility] Hospital width [Ratio] by Automated count ID Date Data Source [id number] 12/19/2019 10:18:[address] [facility] Value Range Interpretation Description Data Sup porting Code Source(s) Document(s ) Erythrocyte mean 34.9 [facility] corpuscular g/dL Hospital hemoglobin concentration [Mass/volume] by Automated count ID Date Data Source [id number] 12/19/2019 10:18:[address] [facility] Value Range Interpretation Description Data Sup porting Code Source(s) Document(s ) Erythrocyte 30.4 pg [facility] corpuscular hemoglobin [Entitic mass] by Automated count ID Date Data Source [id number] 12/19/2019 10:18:[address] [facility] Value Range Interpretation Description Data Sup porting Code Source(s) Document(s ) Erythrocyte 87.1 fL [facility] corpuscular volume [Entitic volume] by Automated count ID Date Data Source [id number] 12/19/2019 10:18:00 AM EDT [facility] Value Range Interpretation Description Data Sup porting Code Source(s) Document(s ) Hematocrit 32.4 % [facility] [Volume Hospital Fraction] of Blood by Automated count ID Date Data Source [id number] 12/19/2019 10:18:00 AM EDT [facility] Name Value Range Interpretation Description Data Sup porting Code Source(s) Document(s ) Hemoglobin 11.3 g/dL [facility] [Mass/volume] Hospital in Blood ID Date Data Source [id number] 12/19/2019 10:18:00 AM EDT [facility] Value Range Interpretation Description Data Sup porting Code Source(s) Document(s ) Erythrocytes 3.72 [place] [#/volume] in 10*6/uL Hospital Blood by Automated count ID Date Data Source [id number] 12/19/2019 10:18:00 AM EDT [facility] Value Range Interpretation Description Data Sup porting Code Source(s) Document(s ) Leukocytes 3.7 [place] [#/volume] in 10*3/uL Hospital Blood by Automated count ID Date Data Source [id number] 12/19/2019 10:18:00 AM EDT [facility] Name Value Range Interpretation Description Data Sup porting Code Source(s) Document(s ) Manual MANUAL [facility] performed [Presence] in Blood ID Date Data Source [id number] 12/19/2019 10:18:00 AM EDT [facility] Value Range Interpretation Code Description Data Bryanna rce(s) Supporting Document(s ) Cells 100 [facility] Total [#] in Blood ID Date Data Source [id number] 12/19/2019 10:18:00 AM EDT [facility] Value Range Interpretation Code Description Data Supporting Source(s) Document(s ) PLATELET NORMAL [facility] Hospital ID Date Data Source [id number] 12/19/2019 10:18:00 AM EDT [facility] Value Range Interpretation Code Description Data Bryanna rce(s) Supporting Document(s ) TARGET CELLS [facility] ID Date Data Source [id number] 12/19/2019 10:18:00 AM EDT [facility] Value Range Interpretation Code Description Data Supporting Source(s) Document(s ) POLYCHROMASIA [facility] ID Date Data Source [id number] 12/19/2019 10:18:00 AM EDT [facility] Value Range Interpretation Code Description Data Bryanna rce(s) Supporting Document(s ) HYPOCHROMIA [facility] ID Date Data Source [id number] 12/19/2019 10:18:00 AM EDT [facility] Value Range Interpretation Description Data Sup porting Code Source(s) Document(s ) POIKILOCYTOSIS [facility] ID Date Data Source [id number] 12/19/2019 [facility] Value Range Interpretation Code Description Data Bryanna rce(s) Supporting Document(s ) ANISOCYTOSIS [facility] ID Date Data Source [id number] 12/19/2019 [facility] Value Range Interpretation Description Data Sup porting Code Source(s) Document(s ) Eosinophils 0.22 [place] [#/volume] in 10*3/uL Hospital Blood by Manual count ID Date Data Source [id number] 12/19/2019 10:[facility] Value Range Interpretation Description Data Sup porting Code Source(s) Document(s ) Monocytes 0.52 [place] [#/volume] in 10*3/uL Hospital Blood by Manual count ID Date Data Source [id number] 12/19/2019 10:18:00 AM EDT [facility] Value Range Interpretation Description Data Sup porting Code Source(s) Document(s ) Lymphocytes 1.89 [place] [#/volume] in 10*3/uL Hospital Blood by Manual count ID Date Data Source [id number] 12/19/2019 10:18:00 AM EDT [facility] Value Range Interpretation Description Data Sup porting Code Source(s) Document(s ) Neutrophils 1.07 [place] [#/volume] in 10*3/uL Hospital Blood by Manual count ID Date Data Source [id number] 12/19/2019 10:18:00 AM EDT [facility] Value Range Interpretation Description Data Sup porting Code Source(s) Document(s ) Eosinophils/100 6 % [place] leukocytes in Hospital Blood by Manual count ID Date Data Source [id number] 12/19/2019 10:18:00 AM EDT [facility] Value Range Interpretation Description Data Sup porting Code Source(s) Document(s ) Monocytes/100 14 % [place] leukocytes in Hospital Blood by Manual count ID Date Data Source [id number] 12/19/2019 10:18:00 AM EDT [facility] Value Range Interpretation Description Data Sup porting Code Source(s) Document(s ) Lymphocytes/100 51 % [place] leukocytes in Hospital Blood by Manual count ID Date Data Source [id number] 12/19/2019 10:18:00 AM EDT [facility] Value Range Interpretation Description Data Sup porting Code Source(s) Document(s ) Band form 1 % [place] neutrophils/100 Hospital leukocytes in Blood ID Date Data Source [id number] 12/19/2019 10:18:00 AM [facility] Name Value Range Interpretation Description Data Sup porting Code Source(s) Document(s ) Neutrophils/100 28 % [place] leukocytes in Hospital Blood by Manual count ID Date Data Source [id number] 12/19/2019 10:12:00 AM [facility] UNITS ARE IN ml/min/1.73m2.IF PATIENT IS -[place], MULTIPLY REPORTED RESULT BY 1.21. Name Value Range Interpretation Description Data Sup porting Code Source(s) Document(s ) Glomerular > 60 [facility] filtration mL/min Hospital rate/1.73 sq M.predicted [Volume Rate/Area] in Serum or Plasma by Creatinine-bas ed formula (MDRD) ID Date Data Source [id number] 12/19/2019 10:12:00 AM [facility] UNITS ARE IN ml/min/1.73m2.IF PATIENT IS -[place], MULTIPLY REPORTED RESULT BY 1.21. Name Value Range Interpretation Description Data Sup porting Code Source(s) Document(s ) Glomerular > 60 [facility] filtration mL/min Hospital rate/1.73 sq M.predicted [Volume Rate/Area] in Serum or Plasma by Creatinine-bas ed formula (MDRD) ID Date Data Source [id number] 12/19/2019 10:12:00 AM [facility] Name Value Range Interpretation Description Data Sup porting Code Source(s) Document(s ) Aspartate 46 U/L [facility] aminotransferase [facility] [Enzymatic Hospital activity/volume] in Serum or Plasma ID Date Data Source [id number] 12/19/2019 10:12:00 AM [facility] Name Value Range Interpretation Description Data Sup porting Code Source(s) Document(s ) Alanine 24 U/L [facility] aminotransferase [facility] [Enzymatic Hospital activity/volume] in Serum or Plasma ID Date Data Source [id number] 12/19/2019 10:12:00 AM EDT [facility] Name Value Range Interpretation Description Data Sup porting Code Source(s) Document(s ) Alkaline 67 U/L [facility] phosphatase [facility] [Enzymatic activity/volume ] in Serum or Plasma ID Date Data Source [id number] 12/19/2019 10:12:00 AM EDT [facility] Name Value Range Interpretation Description Data Sup porting Code Source(s) Document(s ) Bilirubin.t 1.2 mg/dL [facility] [Mass/volum e] in Serum or Plasma ID Date Data Source [id number] 12/19/2019 10:12:00 AM [facility] Name Value Range Interpretation Code Description Data Bryanna rce(s) Supporting Document(s ) [facility] Ratio] in Serum or Plasma ID Date Data Source [id number] 12/19/2019 10:12:00 AM EDT [facility] Name Value Range Interpretation Description Data Sup porting Code Source(s) Document(s ) Albumin 2.8 g/dL [facility] [Mass/volume Hospital ] in Serum or Plasma ID Date Data Source [id number] 12/19/2019 10:12:00 AM EDT [facility] Name Value Range Interpretation Description Data Sup porting Code Source(s) Document(s ) Protein 5.5 g/dL [facility] [Mass/volume Hospital ] in Serum or Plasma ID Date Data Source [id number] [facility] Interpretation Description Data Sup porting Code Source(s) Document(s ) Calcium 8.7 mg/dL [facility] [Mass/volume Hospital ] in Serum or Plasma ID Date Data Source [id number] 12/19/2019 10:12:00 AM EDT [facility] UNITS ARE IN ml/min/1.73m2.IF PATIENT IS -[place], MULTIPLY REPORTED RESULT BY 1.21. Name Value Range Interpretation Description Data Sup porting Code Source(s) Document(s ) Glomerular > 60 [facility] filtration mL/min Hospital rate/1.73 sq M.predicted [Volume Rate/Area] in Serum or Plasma by Creatinine-bas ed formula (MDRD) ID Date Data Source [id number] 12/19/2019 10:12:00 AM EDT [facility] Name Value Range Interpretation Code Description Data Bryanna rce(s) Supporting Document(s ) Urea 12.9 [facility] nitrogen/Cre Hospital atinine [Mass Ratio] in Serum or Plasma ID Date Data Source [id number] 12/19/2019 10:12:00 AM EDT [facility] Name Value Range Interpretation Description Data Sup porting Code Source(s) Document(s ) Creatinine 0.7 mg/dL [facility] [Mass/volume] Hospital in Serum or Plasma ID Date Data Source [id number] 12/19/2019 10:12:00 AM T [facility] Name Value Range Interpretation Description Data Sup porting Code Source(s) Document(s ) Urea nitrogen 9 mg/dL [facility] [Mass/volume] Hospital in Serum or Plasma ID Date Data Source [id number] 12/19/2019 10:12:00 AM EDT [facility] Name Value Range Interpretation Code Description Data Bryanna rce(s) Supporting Document(s ) Anion gap in 5 [facility] Serum or [facility] Plasma ID Date Data Source [id number] 12/19/2019 10:12:00 AM EDT [facility] Name Value Range Interpretation Description Data Sup porting Code Source(s) Document(s ) Carbon 32 mmol/L [facility] dioxide, Hospital total [Moles/volu me] in Serum or Plasma ID Date Data Source [id number] 12/19/2019 10:12:00 AM [facility] Name Value Range Interpretation Description Data Sup porting Code Source(s) Document(s ) Chloride 106 [facility] [Moles/volum mmol/L Hospital e] in Serum or Plasma ID Date Data Source [id number] 12/19/2019 10:12:00 AM [facility] Name Value Range Interpretation Description Data Sup porting Code Source(s) Document(s ) Potassium 3.7 [facility] [Moles/volume mmol/L Hospital ] in Serum or Plasma ID Date Data Source [id number] 12/19/2019 10:12:[address] [facility] Value Range Interpretation Description Data Sup porting Code Source(s) Document(s ) Sodium 139 mmol/L [facility] [Moles/volu Hospital me] in Serum or Plasma ID Date Data Source [id number] 12/19/2019 10:12:00 AM [facility] Name Value Range Interpretation Description Data Sup porting Code Source(s) Document(s ) Glucose 294 mg/dL [facility] [Mass/volume Hospital ] in Serum or Plasma ID Date Data Source [id number] 12/19/2019 10:12:00 AM [facility] UNITS ARE IN ml/min/1.73m2.IF PATIENT IS -[place], MULTIPLY REPORTED RESULT BY 1.21. Name Value Range Interpretation Description Data Sup porting Code Source(s) Document(s ) Glomerular > 60 [facility] filtration mL/min Hospital rate/1.73 sq M.predicted [Volume Rate/Area] in Serum or Plasma by Creatinine-bas ed formula (MDRD) ID Date Data Source [id number] 12/18/2019 12:28:00 PM EDT [facility] Name Value Range Interpretation Description Data Sup porting Code Source(s) Document(s ) GLUCOSE RN Notified [facility] ID Date Data Source [id number] 12/18/2019 09:16:00 AM EDT [facility] Name Value Range Interpretation Description Data Sup porting Code Source(s) Document(s ) Variant 1 % [facility] lymphocytes/100 Hospital leukocytes in Blood by Manual count ID Date Data Source [id number] 12/18/2019 09:16:00 AM EDT [facility] Name Value Range Interpretation Description Data Sup porting Code Source(s) Document(s ) Variant 1 % [facility] lymphocytes/100 Hospital leukocytes in Blood by Manual count ID Date Data Source [id number] 12/18/2019 09:16:00 AM EDT [facility] Value Range Interpretation Description Data Sup porting Code Source(s) Document(s ) Variant 1 % [facility] lymphocytes/100 Hospital leukocytes in Blood by Manual count ID Date Data Source [id number] 12/18/2019 09:16:00 AM EDT [facility] Value Range Interpretation Description Data Sup porting Code Source(s) Document(s ) Variant 1 % [facility] lymphocytes/100 Hospital leukocytes in Blood by Manual count ID Date Data Source [id number] 12/18/2019 09:16:00 AM EDT [facility] Value Range Interpretation Description Data Sup porting Code Source(s) Document(s ) Variant 1 % [facility] lymphocytes/100 Hospital leukocytes in Blood by Manual count ID Date Data Source [id number] 12/17/2019 06:32:00 AM EDT [facility] Value Range Interpretation Description Data Sup porting Code Source(s) Document(s ) Phosphate 2.3 mg/dL [facility] [Mass/volume] Hospital in Serum or Plasma ID Date Data Source [id number] 12/17/2019 06:32:00 AM EDT [facility] Name Value Range Interpretation Description Data Sup porting Code Source(s) Document(s ) Phosphate 2.3 mg/dL [facility] [Mass/volume] Hospital in Serum or Plasma ID Date Data Source [id number] 12/17/2019 06:32:00 AM EDT [facility] Name Value Range Interpretation Description Data Sup porting Code Source(s) Document(s ) Magnesium 1.7 mg/dL [facility] [Mass/volume] Hospital in Serum or Plasma ID Date Data Source [id number] 12/17/2019 06:32:00 AM [facility] Name Value Range Interpretation Description Data Sup porting Code Source(s) Document(s ) Phosphate 2.3 mg/dL [facility] [Mass/volume] Hospital in Serum or Plasma ID Date Data Source [id number] 12/17/2019 06:32:00 AM [facility] Name Value Range Interpretation Description Data Sup porting Code Source(s) Document(s ) Magnesium 1.7 mg/dL [facility] [Mass/volume] Hospital in Serum or Plasma ID Date Data Source [id number] 12/16/2019 04:20:00 PM [facility] CUT-OFF >= 25 NG/ML.THE FINDINGS OF THE URINE DRUG SCREEN ARE USED SOLELY FOR PATIENT MANAGEMENT AND GUIDANCE. THE RESULTS FREEDOM ULD NOT BE USED FOR FORENSIC PURPOSE. ANY CLINICALLY UNSUSPECTED POSITIVE DRUG SCR EEN CAN BE CONFIRMED BY CALLING THE LABORATORY 3 DAYS WITHIN RECEIPT OF REPO RT. Name Value Range Interpretation Code Description Data Bryanna rce(s) Supporting Document(s ) PCP (UR) NEGATIVE [facility] ID Date Data Source [id number] 12/16/2019 04:20:00 PM [facility] CUT-OFF >= 50 NG/ML. Name Value Range Interpretation Code Description Data Bryanna rce(s) Supporting Document(s ) THC (UR) NEGATIVE [facility] ID Date Data Source [id number] 12/16/2019 04:20:00 PM EDT [facility] CUT-OFF >= 300 NG/ML. Name Value Range Interpretation Description Data Sup porting Code Source(s) Document(s ) OPIATES (UR) NEGATIVE [facility] ID Date Data Source [id number] 12/16/2019 04:20:00 PM EDT [facility] CUT-OFF >= 300 NG/ML. Name Value Range Interpretation Description Data Sup porting Code Source(s) Document(s ) COCAINE (UR) POSITIVE [facility] ID Date Data Source [id number] 12/16/2019 04:20:00 PM EDT [facility] CUT-OFF >= 200 NG/ML. Name Value Range Interpretation Description Data Sup porting Code Source(s) Document(s ) BENZODIAZEPINES NEGATIVE [place] (UR) [facility] ID Date Data Source [id number] 12/16/2019 04:20:00 PM EDT [facility] CUT-OFF >= 200 NG/ML. Name Value Range Interpretation Description Data Sup porting Code Source(s) Document(s ) BARBITURATES NEGATIVE [facility] (UR) Hospital ID Date Data Source [id number] 12/16/2019 04:20:00 PM EDT [facility] CUT-OFF >= 1000 NG/ML. Name Value Range Interpretation Description Data Sup porting Code Source(s) Document(s ) AMPHETAMINES NEGATIVE [facility] (UR) Hospital ID Date Data Source [id number] 12/16/2019 01:55:00 PM EDT [facility] THERAPEUTIC RANGES:UNFRACTIONATED HEPARI N THERAPY: 60-90 SECONDSARGATROBAN THERAPY: 49-99 SECONDS Name Value Range Interpretation Description Data Sup porting Code Source(s) Document(s ) aPTT in 33.9 s [facility] Platelet poor [facility] plasma by Coagulation assay ID Date Data Source [id number] [facility]UTIC RANGE FOR STANDARD ORALANTIC OAGULANT THERAPY: 2.0-3.0THERAPEUTIC RANGE FOR HIGH DOSE ORALANTICOAGULANT THERAPY (MECHANICAL HEARTVALVE REPLACEMENT): 2.5-3.5 Name Value Range Interpretation Description Data Sup porting Code Source(s) Document(s ) INR in Platelet 1.0 [facility] poor plasma by Hospital Coagulation assay ID Date Data Source [id number] 12/16/2019 01:55:00 PM EDT [facility] Name Value Range Interpretation Description Data Sup porting Code Source(s) Document(s ) PT panel - 11.8 s [place] Platelet poor [facility] plasma by Coagulation assay ID Date Data Source [id number] 12/[facility]2019 [facility] Interpretation Description Data Sup porting Code Source(s) Document(s ) Mucus PRESENT [facility] [Presence] in Hospital Urine sediment by Light microscopy ID Date Data Source [id number] 12/16/2019 [facility] Value Range Interpretation Description Data Sup porting Code Source(s) Document(s ) Epithelial 3+ [facility] cells.[facility] [#/area] in Urine sediment by Microscopy high power field ID Date Data Source [id number] 12/16/2019 [facility] Value Range Interpretation Description Data Sup porting Code Source(s) Document(s ) Bacteria OCCASIONAL [facility] [#/area] in Hospital Urine sediment by Microscopy high power field ID Date Data Source [id number] 12/16/2019 [facility] Value Range Interpretation Description Data Sup porting Code Source(s) Document(s ) Erythrocytes 0-3 [facility] [#/area] in /[HPF] Hospital Urine sediment by Microscopy high power field ID Date Data Source [id number] 12/16/2019 03:13:00 AM EDT [facility] Name Value Range Interpretation Description Data Sup porting Code Source(s) Document(s ) Leukocytes 10-20 [facility] [#/area] in /[HPF] Hospital Urine sediment by Microscopy high power field ID Date Data Source [id number] 12/16/2019 03:13:[address] [facility] Value Range Interpretation Description Data Sup porting Code Source(s) Document(s ) Mucus PRESENT [facility] [Presence] in Hospital Urine sediment by Light microscopy ID Date Data Source [id number] 12/16/2019 03:13:00 AM [facility] Name Value Range Interpretation Description Data Sup porting Code Source(s) Document(s ) Epithelial 3+ [facility] cells.[facility] [#/area] in Urine sediment by Microscopy high power field ID Date Data Source [id number] 12/16/2019 [facility] Value Range Interpretation Description Data Sup porting Code Source(s) Document(s ) Bacteria OCCASIONAL [facility] [#/area] in Hospital Urine sediment by Microscopy high power field ID Date Data Source [id number] 12/16/2019 [facility] Value Range Interpretation Description Data Sup porting Code Source(s) Document(s ) Erythrocytes 0-3 [facility] [#/area] in /[HPF] Hospital Urine sediment by Microscopy high power field ID Date Data Source [id number] 12/16/2019 03:13:00 AM EDT [facility] Name Value Range Interpretation Description Data Sup porting Code Source(s) Document(s ) Leukocytes 10-20 [facility] [#/area] in /[HPF] Hospital Urine sediment by Microscopy high power field ID Date Data Source [id number] 12/16/2019 03:13:00 AM EDT [facility] Name Value Range Interpretation Description Data Sup porting Code Source(s) Document(s ) Mucus PRESENT [facility] [Presence] in Hospital Urine sediment by Light microscopy ID Date Data Source [id number] 12/16[facility]2019 [facility] Description Data Sup porting Code Source(s) Document(s ) Epithelial 3+ [facility] cells.[facility] [#/area] in Urine sediment by Microscopy high power field ID Date Data Source [id number] 12/16/2019 [facility] Value Range Interpretation Description Data Sup porting Code Source(s) Document(s ) Bacteria OCCASIONAL [facility] [#/area] in Hospital Urine sediment by Microscopy high power field ID Date Data Source [id number] 12/16/2019 [facility] Interpretation Description Data Sup porting Code Source(s) Document(s ) Erythrocytes 0-3 [facility] [#/area] in /[HPF] Hospital Urine sediment by Microscopy high power field ID Date Data Source [id number] 12/16/2019 [facility] Value Range Interpretation Description Data Sup porting Code Source(s) Document(s ) Leukocytes 10-20 [facility] [#/area] in /[HPF] Hospital Urine sediment by Microscopy high power field ID Date Data Source [id number] 12/16/2019 03:13:00 AM [facility] Name Value Range Interpretation Description Data Sup porting Code Source(s) Document(s ) Mucus PRESENT [facility] [Presence] in Hospital Urine sediment by Light microscopy ID Date Data Source [id number] 12/16/2019 03:13:00 AM EDT [facility] Name Value Range Interpretation Description Data Sup porting Code Source(s) Document(s ) Epithelial 3+ [facility] cells.[facility] [#/area] in Urine sediment by Microscopy high power field ID Date Data Source [id number] 12/16/2019 03:13:[address] [facility] Value Range Interpretation Description Data Sup porting Code Source(s) Document(s ) Bacteria OCCASIONAL [facility] [#/area] in Hospital Urine sediment by Microscopy high power field ID Date Data Source [id number] 12/16/2019 [facility] Value Range Interpretation Description Data Sup porting Code Source(s) Document(s ) Erythrocytes 0-3 [facility] [#/area] in /[HPF] Hospital Urine sediment by Microscopy high power field ID Date Data Source [id number] 12/16/2019 03:13:00 AM [facility] Name Value Range Interpretation Description Data Sup porting Code Source(s) Document(s ) Leukocytes 10-20 [facility] [#/area] in /[HPF] Hospital Urine sediment by Microscopy high power field ID Date Data Source [id number] 12/16/2019 03:13:[address] [facility] Value Range Interpretation Code Description Data Supporting Source(s) Document(s ) Leukocyte TRACE [facility] esterase Hospital [Presence] in Urine by Test strip ID Date Data Source [id number] 12/16/2019 03:13:00 AM EDT [facility] Name Value Range Interpretation Description Data Sup porting Code Source(s) Document(s ) URINE NEGATIVE [facility] NITRITES Hospital ID Date Data Source [id number] 12/16/2019 03:13:00 AM EDT [facility] Name Value Range Interpretation Description Data Sup porting Code Source(s) Document(s ) Erythrocytes NEGATIVE [facility] [#/volume] in Hospital Urine by Test strip ID Date Data Source [id number] 12/16/2019 03:13:00 AM EDT [facility] Name Value Range Interpretation Code Description Data Bryanna rce(s) Supporting Document(s ) Bilirubin. NEGATIVE [facility] total Hospital [Presence] in Urine by Test strip ID Date Data Source [id number] 12/16/2019 03:13:00 AM EDT [facility] Value Range Interpretation Description Data Sup porting Code Source(s) Document(s ) Urobilinogen 0.2 [facility] [Units/volume] mg/dL Hospital in Urine by Test strip ID Date Data Source [id number] 12/16/2019 03:13:00 AM EDT [facility] Value Range Interpretation Code Description Data Bryanna rce(s) Supporting Document(s ) Ketones 3+ [facility] [Mass/volume Hospital ] in Urine by Test strip ID Date Data Source [id number] 12/16/2019 03:13:00 AM EDT [facility] Name Value Range Interpretation Code Description Data Bryanna rce(s) Supporting Document(s ) Glucose 3+ [facility] [Mass/volume Hospital ] in Urine by Test strip ID Date Data Source [id number] 12/16/2019 03:13:00 AM EDT [facility] Name Value Range Interpretation Description Data Sup porting Code Source(s) Document(s ) Protein NEGATIVE [facility] [Presence] Hospital in Urine by Test strip ID Date Data Source [id number] 12/16/2019 03:13:00 AM EDT [facility] Name Value Range Interpretation Code Description Data Bryanna rce(s) Supporting Document(s ) pH of Urine 5.0 [facility] by Test Hospital strip ID Date Data Source [id number] 12/16/2019 03:13:00 AM EDT [facility] Name Value Range Interpretation Code Description Data Supporting Source(s) Document(s ) Specific 1.024 [facility] gravity of Hospital Urine by Test strip ID Date Data Source [id number] 12/16/2019 03:13:00 AM EDT [facility] Value Range Interpretation Description Data Sup porting Code Source(s) Document(s ) Clarity in Urine CLEAR [facility] by Refractometry Hospital automated ID Date Data Source [id number] 12/16/2019 [facility] Interpretation Code Description Data Bryanna rce(s) Supporting Document(s ) Color of YELLOW [facility] Urine Hospital ID Date Data Source [id number] 12/16/2019 03:13:[address] [facility] Value Range Interpretation Description Data Sup porting Code Source(s) Document(s ) Mucus PRESENT [facility] [Presence] in Hospital Urine sediment by Light microscopy ID Date Data Source [id number] 12/16/2019 03:13:00 AM EDT [facility] Value Range Interpretation Description Data Sup porting Code Source(s) Document(s ) Epithelial 3+ [facility] cells.[facility] [#/area] in Urine sediment by Microscopy high power field ID Date Data Source [id number] 12/16/2019 03:13:00 AM EDT [facility] Value Range Interpretation Description Data Sup porting Code Source(s) Document(s ) Bacteria OCCASIONAL [facility] [#/area] in Hospital Urine sediment by Microscopy high power field ID Date Data Source [id number] 12/16/2019 03:13:00 AM EDT [facility] Name Value Range Interpretation Description Data Sup porting Code Source(s) Document(s ) Erythrocytes 0-3 [facility] [#/area] in /[HPF] Hospital Urine sediment by Microscopy high power field ID Date Data Source [id number] 12/16/2019 03:13:00 AM EDT [facility] Name Value Range Interpretation Description Data Sup porting Code Source(s) Document(s ) Leukocytes 10-20 [place] [#/area] in /[HPF] Hospital Urine sediment by Microscopy high power field ID Date Data Source [id number] 12/15/2019 10:40:00 PM EDT [facility] Name Value Range Interpretation Description Data Sup porting Code Source(s) Document(s ) GLUCOSE MD Notified [address] ID Date Data Source [id number] 12/15/2019 08:15:00 PM EDT [facility] Value Range Interpretation Code Description Data Bryanna rce(s) Supporting Document(s ) ABG MODE Room Air [facility] ID Date Data Source [id number] 12/15/2019 08:15:00 PM EDT [facility] Name Value Range Interpretation Code Description Data Supporting Source(s) Document(s ) ABG SITE Left Radial [facility] ID Date Data Source [id number] 12/15/2019 08:15:00 PM EDT [facility] Value Range Interpretation Code Description Data Supporting Source(s) Document(s ) ABG SOURCE ARTERIAL [facility] ID Date Data Source [id number] 12/15/2019 08:15:00 PM EDT [facility] Name Value Range Interpretation Code Description Data Bryanna rce(s) Supporting Document(s ) READ BACK Yes/ [facility] ID Date Data Source [id number] 12/15/2019 08:15:00 PM EDT [facility] Value Range Interpretation Code Description Data Bryanna rce(s) Supporting Document(s ) NOTE WHO DR LITTLEJOHN [facility] ID Date Data Source [id number] 12/15/2019 08:15:00 PM EDT [facility] Value Range Interpretation Description Data Sup porting Code Source(s) Document(s ) IONIZED 1.53 [facility] CALCIUM mmol/L Hospital ID Date Data Source [id number] 12/15/2019 08:15:00 PM EDT [facility] Value Range Interpretation Code Description Data Supporting Source(s) Document(s ) METHEMOGLOBIN 0.8 % [facility] ID Date Data Source [id number] 12/15/2019 08:15:00 PM EDT [facility] Value Range Interpretation Description Data Sup porting Code Source(s) Document(s ) CARBOXYHEMOGLOBIN 0.6 % [facility] ID Date Data Source [id number] 12/15/2019 08:15:00 PM EDT [facility] Value Range Interpretation Code Description Data Bryanna rce(s) Supporting Document(s ) ABG TEMP 98.0 [facility] ID Date Data Source [id number] 12/15/2019 08:15:00 PM EDT [facility] Value Range Interpretation Code Description Data Bryanna rce(s) Supporting Document(s ) FIO2 21 % [facility] ID Date Data Source [id number] 12/15/2019 08:15:00 PM EDT [facility] Value Range Interpretation Code Description Data Bryanna rce(s) Supporting Document(s ) ABG BE -13.7 [facility] mmol/L Hospital ID Date Data Source [id number] 12/15/2019 08:15:00 PM EDT [facility] Value Range Interpretation Code Description Data Bryanna rce(s) Supporting Document(s ) ABG O2SAT 96 % [facility] ID Date Data Source [id number] 12/15/2019 08:15:00 PM EDT [facility] Value Range Interpretation Code Description Data Bryanna rce(s) Supporting Document(s ) ABG HCO3 11 mmol/L [facility] ID Date Data Source [id number] 12/15/2019 08:15:00 PM EDT [facility] Value Range Interpretation Code Description Data Bryanna rce(s) Supporting Document(s ) ABG PO2 87 mm[Hg] [facility] ID Date Data Source [id number] 12/15/2019 08:15:00 PM EDT [facility] Value Range Interpretation Code Description Data Bryanna rce(s) Supporting Document(s ) ABG PCO2 25 mm[Hg] [facility] ID Date Data Source [id number] 12/15/2019 08:15:00 PM EDT [facility] Value Range Interpretation Code Description Data Bryanna rce(s) Supporting Document(s ) ABG PH 7.28 [facility] ID Date Data Source [id number] 12/15/2019 08:15:00 PM EDT [facility] Value Range Interpretation Code Description Data Bryanna rce(s) Supporting Document(s ) ABG MODE Room Air [facility] ID Date Data Source [id number] 12/15/2019 08:15:00 PM EDT [facility] Name Value Range Interpretation Code Description Data Supporting Source(s) Document(s ) ABG SITE Left [facility] ID Date Data Source [id number] 12/15/2019 08:15:00 PM EDT [facility] Name Value Range Interpretation Code Description Data Supporting Source(s) Document(s ) ABG SOURCE ARTERIAL [facility] ID Date Data Source [id number] 12/15/2019 08:15:00 PM EDT [facility] Name Value Range Interpretation Code Description Data Bryanna rce(s) Supporting Document(s ) JORGE TEST POSITIVE [facility] ID Date Data Source [id number] 12/15/2019 08:15:00 PM EDT [facility] Value Range Interpretation Code Description Data Bryanna rce(s) Supporting Document(s ) ABG MODE Room Air [facility] ID Date Data Source [id number] 12/15/2019 08:15:00 PM EDT [facility] Value Range Interpretation Code Description Data Supporting Source(s) Document(s ) ABG SITE Left [facility] ID Date Data Source [id number] 12/15/2019 08:15:00 PM EDT [facility] Name Value Range Interpretation Code Description Data Supporting Source(s) Document(s ) ABG SOURCE ARTERIAL [facility] ID Date Data Source [id number] 12/15/2019 08:15:00 PM EDT [facility] Name Value Range Interpretation Code Description Data Bryanna rce(s) Supporting Document(s ) READ BACK Yes/MD [facility] ID Date Data Source [id number] 12/15/2019 08:15:00 PM EDT [facility] Name Value Range Interpretation Code Description Data Bryanna rce(s) Supporting Document(s ) READ BACK Yes/ [facility] ID Date Data Source [id number] 12/15/2019 08:15:00 PM EDT [facility] Value Range Interpretation Code Description Data Bryanna rce(s) Supporting Document(s ) NOTE WHO DR LITTLEJOHN [facility] ID Date Data Source [id number] 12/15/2019 08:15:00 PM EDT [facility] Value Range Interpretation Description Data Sup porting Code Source(s) Document(s ) IONIZED 1.53 [facility] CALCIUM mmol/L Hospital ID Date Data Source [id number] 12/15/2019 08:15:00 PM EDT [facility] Value Range Interpretation Code Description Data Supporting Source(s) Document(s ) METHEMOGLOBIN 0.8 % [facility] ID Date Data Source [id number] 12/15/2019 08:15:00 PM EDT [facility] Value Range Interpretation Description Data Sup porting Code Source(s) Document(s ) CARBOXYHEMOGLOBIN 0.6 % [facility] ID Date Data Source [id number] 12/15/2019 08:15:00 PM EDT [facility] Value Range Interpretation Code Description Data Bryanna rce(s) Supporting Document(s ) ABG TEMP 98.0 [facility] ID Date Data Source [id number] 12/15/2019 08:15:00 PM EDT [facility] Value Range Interpretation Code Description Data Bryanna rce(s) Supporting Document(s ) FIO2 21 % [facility] ID Date Data Source [id number] 12/15/2019 08:15:00 PM EDT [facility] Value Range Interpretation Code Description Data Bryanna rce(s) Supporting Document(s ) ABG BE -13.7 [facility] mmol/L Hospital ID Date Data Source [id number] 12/15/2019 08:15:00 PM EDT [facility] Value Range Interpretation Code Description Data Bryanna rce(s) Supporting Document(s ) ABG O2SAT 96 % [facility] ID Date Data Source [id number] 12/15/2019 08:15:00 PM EDT [facility] Value Range Interpretation Code Description Data Bryanna rce(s) Supporting Document(s ) ABG HCO3 11 mmol/L [facility] ID Date Data Source [id number] 12/15/2019 08:15:00 PM EDT [facility] Value Range Interpretation Code Description Data Bryanna rce(s) Supporting Document(s ) ABG PO2 87 mm[Hg] [facility] ID Date Data Source [id number] 12/15/2019 08:15:00 PM EDT [facility] Value Range Interpretation Code Description Data Bryanna rce(s) Supporting Document(s ) ABG PCO2 25 mm[Hg] [facility] ID Date Data Source [id number] 12/15/2019 08:15:00 PM EDT [facility] Value Range Interpretation Code Description Data Bryanna rce(s) Supporting Document(s ) ABG PH 7.28 [facility] ID Date Data Source [id number] 12/15/2019 08:15:00 PM EDT [facility] Value Range Interpretation Code Description Data Bryanna rce(s) Supporting Document(s ) ABG MODE Room Air [facility] ID Date Data Source [id number] 12/15/2019 08:15:00 PM EDT [facility] Value Range Interpretation Code Description Data Supporting Source(s) Document(s ) ABG SITE Left Radial [facility] ID Date Data Source [id number] 12/15/2019 08:15:00 PM EDT [facility] Value Range Interpretation Code Description Data Supporting Source(s) Document(s ) ABG SOURCE ARTERIAL [facility] ID Date Data Source [id number] 12/15/2019 08:15:00 PM EDT [facility] Value Range Interpretation Code Description Data Bryanna rce(s) Supporting Document(s ) JORGE TEST POSITIVE [facility] ID Date Data Source [id number] 12/15/2019 08:15:00 PM EDT [facility] Value Range Interpretation Code Description Data Bryanna rce(s) Supporting Document(s ) NOTE WHO DR LITTLEJOHN [facility] ID Date Data Source [id number] 12/15/2019 08:15:00 PM EDT [facility] Value Range Interpretation Description Data Sup porting Code Source(s) Document(s ) IONIZED 1.53 [place] CALCIUM mmol/L Hospital ID Date Data Source [id number] 12/15/2019 08:15:00 PM EDT [facility] Value Range Interpretation Code Description Data Supporting Source(s) Document(s ) METHEMOGLOBIN 0.8 % [facility] ID Date Data Source [id number] 12/15/2019 08:15:00 PM EDT [facility] Value Range Interpretation Description Data Sup porting Code Source(s) Document(s ) CARBOXYHEMOGLOBIN 0.6 % [facility] ID Date Data Source [id number] 12/15/2019 08:15:00 PM EDT [facility] Value Range Interpretation Code Description Data Bryanna rce(s) Supporting Document(s ) ABG TEMP 98.0 [facility] ID Date Data Source [id number] 12/15/2019 08:15:00 PM EDT [facility] Value Range Interpretation Code Description Data Bryanna rce(s) Supporting Document(s ) FIO2 21 % [facility] ID Date Data Source [id number] 12/15/2019 08:15:00 PM EDT [facility] Value Range Interpretation Code Description Data Bryanna rce(s) Supporting Document(s ) ABG BE -13.7 [facility] mmol/L Hospital ID Date Data Source [id number] 12/15/2019 08:15:00 PM EDT [facility] Value Range Interpretation Code Description Data Bryanna rce(s) Supporting Document(s ) ABG O2SAT 96 % [facility] ID Date Data Source [id number] 12/15/2019 08:15:00 PM EDT [facility] Value Range Interpretation Code Description Data Bryanna rce(s) Supporting Document(s ) ABG HCO3 11 mmol/L [facility] ID Date Data Source [id number] 12/15/2019 08:15:00 PM EDT [facility] Value Range Interpretation Code Description Data Bryanna rce(s) Supporting Document(s ) ABG PO2 87 mm[Hg] [facility] ID Date Data Source [id number] 12/15/2019 08:15:00 PM EDT [facility] Value Range Interpretation Code Description Data Bryanna rce(s) Supporting Document(s ) ABG PCO2 25 mm[Hg] [facility] ID Date Data Source [id number] 12/15/2019 08:15:00 PM EDT [facility] Value Range Interpretation Code Description Data Bryanna rce(s) Supporting Document(s ) ABG PH 7.28 [facility] ID Date Data Source [id number] 12/15/2019 08:15:00 PM EDT [facility] Name Value Range Interpretation Code Description Data Bryanna rce(s) Supporting Document(s ) ABG MODE Room Air [facility] ID Date Data Source [id number] 12/15/2019 08:15:00 PM EDT [facility] Name Value Range Interpretation Code Description Data Supporting Source(s) Document(s ) ABG SITE Left Radial [facility] ID Date Data Source [id number] 12/15/2019 08:15:00 PM EDT [facility] Value Range Interpretation Code Description Data Supporting Source(s) Document(s ) ABG SOURCE ARTERIAL [facility] ID Date Data Source [id number] 12/15/2019 08:15:00 PM EDT [facility] Value Range Interpretation Code Description Data Bryanna rce(s) Supporting Document(s ) JORGE TEST POSITIVE [facility] ID Date Data Source [id number] 12/15/2019 07:47:00 PM EDT [facility] Value Range Interpretation Description Data Sup porting Code Source(s) Document(s ) Ammonia 21 mmol/L [facility] e] in Plasma ID Date Data Source [id number] 12/15/2019 07:47:00 PM EDT [facility] Name Value Range Interpretation Description Data Sup porting Code Source(s) Document(s ) Ammonia 21 mmol/L [facility] [[facility] e] in Plasma ID Date Data Source [id number] 12/15/2019 07:47:00 PM EDT [facility] Name Value Range Interpretation Description Data Sup porting Code Source(s) Document(s ) Ammonia 21 mmol/L [facility] [[facility] e] in Plasma ID Date Data Source [id number] 12/15/2019 07:47:00 PM EDT [facility] Name Value Range Interpretation Description Data Sup porting Code Source(s) Document(s ) Ammonia 21 mmol/L [facility] [[facility] e] in Plasma ID Date Data Source [id number] 12/15/2019 07:47:00 PM EDT [facility] Name Value Range Interpretation Description Data Sup porting Code Source(s) Document(s ) Ammonia 21 mmol/L [facility] [[facility] e] in Plasma ID Date Data Source [id number] 12/15/2019 06:32:00 PM EDT [facility] Name Value Range Interpretation Code Description Data Bryanna rce(s) Supporting Document(s ) Lipase 61 U/L [facility] [Enzymatic Hospital activity/vo lume] in Serum or Plasma ID Date Data Source [id number] 12/15/2019 06:32:00 PM EDT [facility] Value Range Interpretation Code Description Data Bryanna rce(s) Supporting Document(s ) Lipase 61 U/L [facility] [Enzymatic Hospital activity/vo lume] in Serum or Plasma ID Date Data Source [id number] 12/15/2019 06:32:00 PM EDT [facility] Name Value Range Interpretation Code Description Data Supporting Source(s) Document(s ) NUCLEATED RBCS 0.0 % [facility] (AUTO Hospital DIFF%)DIS ID Date Data Source [id number] 12/15/2019 06:32:00 PM EDT [facility] Value Range Interpretation Description Data Sup porting Code Source(s) Document(s ) Differential AUTOMATED [facility] cell count Hospital method - Blood ID Date Data Source [id number] 12/15/2019 06:32:00 PM EDT [facility] Value Range Interpretation Description Data Sup porting Code Source(s) Document(s ) Immature 0.03 [facility] granulocytes 10*3/uL Hospital [#/volume] in Blood by Automated count ID Date Data Source [id number] 12/15/2019 06:32:00 PM EDT [facility] Value Range Interpretation Description Data Sup porting Code Source(s) Document(s ) Basophils 0.02 [facility] [#/volume] in 10*3/uL [facility] Blood by Automated count ID Date Data Source [id number] 12/15/2019 06:32:00 PM EDT [facility] Value Range Interpretation Description Data Sup porting Code Source(s) Document(s ) Eosinophils 0.01 [facility] [#/volume] in 10*3/uL [facility] Blood by Automated count ID Date Data Source [id number] [facility] Description Data Sup porting Code Source(s) Document(s ) Monocytes 0.99 [facility] [#/volume] in 10*3/uL [facility] Blood by Automated count ID Date Data Source [id number] 12/15[facility]2019 [facility] Interpretation Description Data Sup porting Code Source(s) Document(s ) Lymphocytes 1.72 [facility] [#/volume] in 10*3/uL Hospital Blood by Automated count ID Date Data Source [id number] 12/15/2019 06:32:00 PM EDT [facility] Value Range Interpretation Description Data Sup porting Code Source(s) Document(s ) Neutrophils 6.39 [facility] [#/volume] in 10*3/uL Hospital Blood by Automated count ID Date Data Source [id number] 12/15/2019 06:32:00 PM EDT [facility] Value Range Interpretation Description Data Sup porting Code Source(s) Document(s ) Nucleated 0.0 % [facility] erythrocytes/10 Hospital 0 leukocytes [Ratio] in Blood by Automated count ID Date Data Source [id number] 12/15/2019 06:32:00 PM EDT [facility] Value Range Interpretation Description Data Sup porting Code Source(s) Document(s ) Immature 0.3 % [facility] granulocytes/10 Hospital 0 leukocytes in Blood by Automated count ID Date Data Source [id number] 12/15/2019 06:32:00 PM EDT [facility] Value Range Interpretation Description Data Sup porting Code Source(s) Document(s ) Basophils/100 0.2 % [facility] leukocytes in Hospital Blood by Automated count ID Date Data Source [id number] 12/15/2019 06:32:00 PM EDT [facility] Value Range Interpretation Description Data Sup porting Code Source(s) Document(s ) Eosinophils/100 0.1 % [facility] leukocytes in Hospital Blood by Automated count ID Date Data Source [id number] 12/15/2019 06:32:00 PM EDT [facility] Value Range Interpretation Description Data Sup porting Code Source(s) Document(s ) Monocytes/100 10.8 % [facility] leukocytes in Hospital Blood by Automated count ID Date Data Source [id number] 12/15/2019 06:32:00 PM EDT [facility] Value Range Interpretation Description Data Sup porting Code Source(s) Document(s ) Lymphocytes/10 18.8 % [facility] 0 leukocytes Hospital in Blood by Automated count ID Date Data Source [id number] 12/15/2019 06:32:00 PM EDT [facility] Name Value Range Interpretation Description Data Sup porting Code Source(s) Document(s ) Neutrophils/10 69.8 % [facility] 0 leukocytes Hospital in Blood by Automated count ID Date Data Source [id number] 12/15/2019 06:32:00 PM EDT [facility] REFERENCE RANGES: NONE DETECTED <20 MG/DL NONE TO MILD EUPHORIA 20-49 MG/DL MILD EUPHORIA 50-99 MG/DL MODERATE EUPHORIA 100-149 MG/DL INTOXICATION 150-300 MG/DL Name Value Range Interpretation Description Data Sup porting Code Source(s) Document(s ) Ethanol < 20 [facility] [Mass/volume mg/dL Hospital ] in Serum or Plasma ID Date Data Source [id number] 12/15/2019 06:32:00 PM [facility] TEST PERFORMED BY [employer] ULTRA SENSITIVE [facility] CHEMILUMINESCENCE METHOD. Name Value Range Interpretation Description Data Sup porting Code Source(s) Document(s ) Troponin 0.25 [facility] I.cardiac ng/mL Hospital [Mass/volume ] in Serum or Plasma ID Date Data Source [id number] [facility] Interpretation Code Description Data Bryanna rce(s) Supporting Document(s ) Lipase 61 U/L [facility] [Enzymatic Hospital activity/vo lume] in Serum or Plasma ID Date Data Source [id number] 12/[facility]2019 [facility] Value [facility] Interpretation Code Description Data Supporting Source(s) Document(s ) NUCLEATED RBCS 0.0 % [facility] (AUTO Hospital DIFF%)DIS ID Date Data Source [id number] 12/15/2019 06:32:00 PM EDT [facility] Name Value Range Interpretation Description Data Sup porting Code Source(s) Document(s ) Differential AUTOMATED [facility] cell count Hospital method - Blood ID Date Data Source [id number] 12/15/2019 06:32:00 PM EDT [facility] Name Value Range Interpretation Description Data Sup porting Code Source(s) Document(s ) Immature 0.03 [facility] granulocytes 10*3/uL Hospital [#/volume] in Blood by Automated count ID Date Data Source [id number] 12/15/2019 06:32:00 PM EDT [facility] Name Value Range Interpretation Description Data Sup porting Code Source(s) Document(s ) Basophils 0.02 [facility] [#/volume] in 10*3/uL Hospital Blood by Automated count ID Date Data Source [id number] 12/15/2019 06:32:00 PM EDT [facility] Name Value Range Interpretation Description Data Sup porting Code Source(s) Document(s ) Eosinophils 0.01 [facility] [#/volume] in 10*3/uL Hospital Blood by Automated count ID Date Data Source [id number] 12/[facility]2019 [facility] Interpretation Description Data Sup porting Code Source(s) Document(s ) Monocytes 0.99 [facility] [#/volume] in 10*3/uL Hospital Blood by Automated count ID Date Data Source [id number] 12/15/2019 06:32:00 PM EDT [facility] Name Value Range Interpretation Description Data Sup porting Code Source(s) Document(s ) Lymphocytes 1.72 [facility] [#/volume] in 10*3/uL Hospital Blood by Automated count ID Date Data Source [id number] 12/15/2019 06:32:00 PM EDT [facility] Value Range Interpretation Description Data Sup porting Code Source(s) Document(s ) Neutrophils 6.39 [facility] [#/volume] in 10*3/uL Hospital Blood by Automated count ID Date Data Source [id number] 12/15/2019 06:32:00 PM EDT [facility] Value Range Interpretation Description Data Sup porting Code Source(s) Document(s ) Nucleated 0.0 % [facility] erythrocytes/10 Hospital 0 leukocytes [Ratio] in Blood by Automated count ID Date Data Source [id number] 12/15/2019 06:32:00 PM EDT [facility] Value Range Interpretation Description Data Sup porting Code Source(s) Document(s ) Immature 0.3 % [facility] granulocytes/10 Hospital 0 leukocytes in Blood by Automated count ID Date Data Source [id number] 12/15/2019 06:32:00 PM EDT [facility] [facility] Value Range Interpretation Description Data Sup porting Code Source(s) Document(s ) Basophils/100 0.2 % [place] leukocytes in Hospital Blood by Automated count ID Date Data Source [id number] 12/15/2019 06:32:00 PM EDT [facility] Value Range Interpretation Description Data Sup porting Code Source(s) Document(s ) Eosinophils/100 0.1 % [place] leukocytes in Hospital Blood by Automated count ID Date Data Source [id number] 12/15/2019 06:32:00 PM EDT [facility] Value Range Interpretation Description Data Sup porting Code Source(s) Document(s ) Monocytes/100 10.8 % [place] leukocytes in Hospital Blood by Automated count ID Date Data Source [id number] 12/15/2019 06:32:00 PM EDT [facility] Value Range Interpretation Description Data Sup porting Code Source(s) Document(s ) Lymphocytes/10 18.8 % [place] 0 leukocytes Hospital in Blood by Automated count ID Date Data Source [id number] 12/15/2019 06:32:00 PM EDT [facility] Name Value Range Interpretation Description Data Sup porting Code Source(s) Document(s ) Neutrophils/10 69.8 % [place] 0 leukocytes Hospital in Blood by Automated count ID Date Data Source [id number] [facility]AMANDA [facility]CGUIRE Name Value Range Interpretation Description Data Sup porting Code Source(s) Document(s ) Glucose 243 mg/dL [place] [Mass/volume] Hospital in Capillary blood by Glucometer ID Date Data Source [id number] 12/03[facility] Name Value Range Interpretation Description Data Sup porting Code Source(s) Document(s ) GLUCOSE RN Notified [facility] ID Date Data Source [id number] 12/03/2019 07:11:00 AM [facility] NOTIFICATION AND READ BACK OF CRITICAL R ESULTS TO KP KRUSE RN 4E AT 0826 ON 12/03/19 BY Jessica Quinteros.REPORTED CR ITICAL VALUES SHOULD BE INTERPRETED WITHIN CLINICAL CONTEXT. Name Value Range Interpretation Description Data Sup porting Code Source(s) Document(s ) Ammonia 56 mmol/L [facility] [Moles/volum Hospital e] in Plasma ID Date Data Source [id number] 12/03[facility] Value Range Interpretation Description Data Sup porting Code Source(s) Document(s ) Calcium 8.2 mg/dL [facility] [Mass/volume Hospital ] in Serum or Plasma ID Date Data Source [id number] 12/03/2019 [facility]11[facility] Name Value Range Interpretation Code Description Data Bryanna rce(s) Supporting Document(s ) Urea 11.4 [place] nitrogen/Cre Hospital atinine [Mass Ratio] in Serum or Plasma ID Date Data Source [id number] 12/03/2019 07:11:00 AM EDT [facility] Name Value Range Interpretation Description Data Sup porting Code Source(s) Document(s ) Creatinine 0.7 mg/dL [facility] [Mass/volume] Hospital in Serum or Plasma ID Date Data Source [id number] 12/03/2019 07:11:00 AM EDT [facility] Name Value Range Interpretation Description Data Sup porting Code Source(s) Document(s ) Urea nitrogen 8 mg/dL [facility] [Mass/volume] Hospital in Serum or Plasma ID Date Data Source [id number] 12/03/2019 07:11:00 AM EDT [facility] Value Range Interpretation Code Description Data Bryanna rce(s) Supporting Document(s ) Anion gap in 13 [facility] Serum or [facility] Plasma ID Date Data Source [id number] 12/03/2019 07:11:00 AM EDT [facility] Value Range Interpretation Description Data Sup porting Code Source(s) Document(s ) Carbon 25 mmol/L [facility] dioxide, Hospital total [Moles/volu me] in Serum or Plasma ID Date Data Source [id number] 12/03/2019 07:11:00 AM EDT [facility] Name Value Range Interpretation Description Data Sup porting Code Source(s) Document(s ) Chloride 99 mmol/L [facility] [Moles/volum Hospital e] in Serum or Plasma ID Date Data Source [id number] 12/03/2019 07:11:00 AM EDT [facility] Name Value Range Interpretation Description Data Sup porting Code Source(s) Document(s ) Potassium 3.8 [facility] [Moles/volume mmol/L Hospital ] in Serum or Plasma ID Date Data Source [id number] 12/03/2019 07:11:00 AM EDT [facility] Name Value Range Interpretation Description Data Sup porting Code Source(s) Document(s ) Sodium 133 mmol/L [facility] [Moles/volu Hospital nh] in Serum or Plasma ID Date Data Source [id number] 12/03/2019 07:11:00 AM EDT [facility] Name Value Range Interpretation Description Data Sup porting Code Source(s) Document(s ) Glucose 353 mg/dL [place] [Mass/volume Hospital ] in Serum or Plasma ID Date Data Source [id number] 12/02/2019 07:56:00 AM EDT [facility] Value Range Interpretation Code Description Data Supporting Source(s) Document(s ) NUCLEATED RBCS 0.0 % [facility] (AUTO Hospital DIFF%)DIS ID Date Data Source [id number] 12/02/2019 07:56:00 AM EDT [facility] Value Range Interpretation Description Data Sup porting Code Source(s) Document(s ) Differential AUTOMATED [facility] cell count [facility] method - Blood ID Date Data Source [id number] 12/02/2019 07:56:00 AM EDT [facility] Value Range Interpretation Description Data Sup porting Code Source(s) Document(s ) Immature 0.01 [facility] granulocytes 10*3/uL Hospital [#/volume] in Blood by Automated count ID Date Data Source [id number] 12/02/2019 07:56:00 AM EDT [facility] Value Range Interpretation Description Data Sup porting Code Source(s) Document(s ) Basophils 0.04 [place] [#/volume] in 10*3/uL Hospital Blood by Automated count ID Date Data Source [id number] 12/02/2019 07:56:00 AM EDT [facility] Name Value Range Interpretation Description Data Sup porting Code Source(s) Document(s ) Eosinophils 0.12 [place] [#/volume] in 10*3/uL Hospital Blood by Automated count ID Date Data Source [id number] 12/02/2019 07:56:00 AM EDT [facility] Value Range Interpretation Description Data Sup porting Code Source(s) Document(s ) Monocytes 0.51 [place] [#/volume] in 10*3/uL Hospital Blood by Automated count ID Date Data Source [id number] 12/02/2019 07:56:00 AM EDT [facility] Value Range Interpretation Description Data Sup porting Code Source(s) Document(s ) Lymphocytes 1.89 [place] [#/volume] in 10*3/uL Hospital Blood by Automated count ID Date Data Source [id number] 12/02/2019 07:56:00 AM EDT [facility] Value Range Interpretation Description Data Sup porting Code Source(s) Document(s ) Neutrophils 1.81 [place] [#/volume] in 10*3/uL Hospital Blood by Automated count ID Date Data Source [id number] 12/02/2019 07:56:00 AM EDT [facility] Value Range Interpretation Description Data Sup porting Code Source(s) Document(s ) Nucleated 0.0 % [facility] erythrocytes/10 Hospital 0 leukocytes [Ratio] in Blood by Automated count ID Date Data Source [id number] 12/02/2019 07:56:00 AM EDT [facility] Name Value Range Interpretation Description Data Sup porting Code Source(s) Document(s ) Immature 0.2 % [facility] granulocytes/10 Hospital 0 leukocytes in Blood by Automated count ID Date Data Source [id number] 12/02/2019 07:56:00 AM EDT [facility] Name Value Range Interpretation Description Data Sup porting Code Source(s) Document(s ) Basophils/100 0.9 % [place] leukocytes in Hospital Blood by Automated count ID Date Data Source [id number] 12/02/2019 07:56:00 AM EDT [facility] Value Range Interpretation Description Data Sup porting Code Source(s) Document(s ) Eosinophils/100 2.7 % [place] leukocytes in Hospital Blood by Automated count ID Date Data Source [id number] 12/02/2019 07:56:00 AM EDT [facility] Value Range Interpretation Description Data Sup porting Code Source(s) Document(s ) Monocytes/100 11.6 % [place] leukocytes in [facility] Blood by Automated count ID Date Data Source [id number] 12/02/2019 07:56:00 AM EDT [facility] Value Range Interpretation Description Data Sup porting Code Source(s) Document(s ) Lymphocytes/10 43.2 % [place] 0 leukocytes Hospital in Blood by Automated count ID Date Data Source [id number] 12/02/2019 07:56:00 AM EDT [facility] Value Range Interpretation Description Data Sup porting Code Source(s) Document(s ) Neutrophils/10 41.4 % [place] 0 leukocytes Hospital in Blood by Automated count ID Date Data Source [id number] 12/02/2019 07:56:00 AM EDT [facility] Value Range Interpretation Description Data Sup porting Code Source(s) Document(s ) Platelet mean 13.8 fL [facility] volume Hospital [Entitic volume] in Blood by Automated count ID Date Data Source [id number] 12/02/2019 07:56:00 AM EDT [facility] Value Range Interpretation Description Data Sup porting Code Source(s) Document(s ) Platelets 143 [place] [#/volume] in 10*3/uL Hospital Blood by Automated count ID Date Data Source [id number] 12/02/2019 07:56:00 AM EDT [facility] Value Range Interpretation Description Data Sup porting Code Source(s) Document(s ) Erythrocyte 14.3 % [facility] distribution Hospital width [Ratio] by Automated count ID Date Data Source [id number] 12/02/2019 07:56:00 AM EDT [facility] Value Range Interpretation Description Data Sup porting Code Source(s) Document(s ) Erythrocyte mean 34.2 [facility] corpuscular g/dL Hospital hemoglobin concentration [Mass/volume] by Automated count ID Date Data Source [id number] 12/02/2019 07:56:00 AM EDT [facility] Value Range Interpretation Description Data Sup porting Code Source(s) Document(s ) Erythrocyte 30.5 pg [facility] corpuscular hemoglobin [Entitic mass] by Automated count ID Date Data Source [id number] 12/02[facility]2019 [facility] Interpretation Description Data Sup porting Code Source(s) Document(s ) Erythrocyte 89.2 fL [facility] corpuscular volume [Entitic volume] by Automated count ID Date Data Source [id number] 12/02/2019 07[facility]56[facility] Value Range Interpretation Description Data Sup porting Code Source(s) Document(s ) Hematocrit 34.8 % [facility] [Volume Hospital Fraction] of Blood by Automated count ID Date Data Source [id number] 12/02/2019 07:56:00 AM EDT [facility] Value Range Interpretation Description Data Sup porting Code Source(s) Document(s ) Hemoglobin 11.9 g/dL [facility] [Mass/volume] Hospital in Blood ID Date Data Source [id number] 12/02/2019 07:56:00 AM EDT [facility] Name Value Range Interpretation Description Data Sup porting Code Source(s) Document(s ) Erythrocytes 3.90 [facility] [#/volume] in 10*6/uL Hospital Blood by Automated count ID Date Data Source [id number] 12/02/2019 07:56:00 AM EDT [facility] Name Value Range Interpretation Description Data Sup porting Code Source(s) Document(s ) Leukocytes 4.4 [place] [#/volume] in 10*3/uL Hospital Blood by Automated count ID Date Data Source [id number] 12/01/2019 07:50:00 AM EDT [facility] Name Value Range Interpretation Description Data Sup porting Code Source(s) Document(s ) Aspartate 65 U/L [facility] aminotransferase [facility] [Enzymatic Hospital activity/volume] in Serum or Plasma ID Date Data Source [id number] 12/01/2019 07:50:00 AM EDT [facility] Name Value Range Interpretation Description Data Sup porting Code Source(s) Document(s ) Alanine 38 U/L [facility] aminotransferase [facility] [Enzymatic Hospital activity/volume] in Serum or Plasma ID Date Data Source [id number] 12/01/2019 07:50:00 AM EDT [facility] Name Value Range Interpretation Description Data Sup porting Code Source(s) Document(s ) Alkaline 69 U/L [facility] phosphatase Hospital [Enzymatic activity/volume ] in Serum or Plasma ID Date Data Source [id number] 12/01/2019 07:50:00 AM EDT [facility] Name Value Range Interpretation Description Data Sup porting Code Source(s) Document(s ) Bilirubin.t 1.3 mg/dL [facility] [Mass/volum e] in Serum or Plasma ID Date Data Source [id number] 12/01/2019 07:50:00 AM EDT [facility] Name Value Range Interpretation Code Description Data Bryanna rce(s) Supporting Document(s ) Albumin/Glob 1.1 [facility] ulin [Mass Hospital Ratio] in Serum or Plasma ID Date Data Source [id number] 12/01/2019 07:50:00 AM EDT [facility] Name Value Range Interpretation Description Data Sup porting Code Source(s) Document(s ) Albumin 3.4 g/dL [facility] [Mass/volume Hospital ] in Serum or Plasma ID Date Data Source [id number] 12/01/2019 07:50:00 AM EDT [facility] Name Value Range Interpretation Description Data Sup porting Code Source(s) Document(s ) Protein 6.4 g/dL [facility] [Mass/volume Hospital ] in Serum or Plasma ID Date Data Source [id number] 11/30[facility]2019 [facility] >= 25 NG/ML.THE FINDINGS OF THE URINE DRUG SCREEN ARE USED SOLELY FOR PATIENT MANAGEMENT AND GUIDANCE. THE RESULTS FREEDOM ULD NOT BE USED FOR FORENSIC PURPOSE. ANY CLINICALLY UNSUSPECTED POSITIVE DRUG SCR EEN CAN BE CONFIRMED BY CALLING THE LABORATORY 3 DAYS WITHIN RECEIPT OF REPO RT. Name Value Range Interpretation Code Description Data Bryanna rce(s) Supporting Document(s ) PCP (UR) NEGATIVE [facility] ID Date Data Source [id number] 11/30/2019 05:09:00 PM EDT [facility] CUT-OFF >= 50 NG/ML. Name Value Range Interpretation Code Description Data Bryanna rce(s) Supporting Document(s ) THC (UR) NEGATIVE [facility] ID Date Data Source [id number] 11/30/2019 05:09:00 PM EDT [facility] CUT-OFF >= 300 NG/ML. Name Value Range Interpretation Description Data Sup porting Code Source(s) Document(s ) OPIATES (UR) NEGATIVE [facility] ID Date Data Source [id number] 11/30/2019 05:09:00 PM EDT [facility] CUT-OFF >= 300 NG/ML. Name Value Range Interpretation Description Data Sup porting Code Source(s) Document(s ) COCAINE (UR) NEGATIVE [facility] ID Date Data Source [id number] 11/30/2019 [facility] 200 NG/ML. Name Value Range Interpretation Description Data Sup porting Code Source(s) Document(s ) BENZODIAZEPINES NEGATIVE [place] (UR) [facility] ID Date Data Source [id number] 11/30/2019 [facility]09[facility] >= 200 NG/ML. Name Value Range Interpretation Description Data Sup porting Code Source(s) Document(s ) BARBITURATES NEGATIVE [facility] (UR) Hospital ID Date Data Source [id number] 11/30/2019 05:09:00 PM [facility] CUT-OFF >= 1000 NG/ML. Name Value Range Interpretation Description Data Sup porting Code Source(s) Document(s ) AMPHETAMINES NEGATIVE [facility] (UR) Hospital ID Date Data Source [id number] 11/30/2019 05:09:00 PM [facility] Name Value Range Interpretation Description Data Sup porting Code Source(s) Document(s ) Leukocyte NEGATIVE [facility] [Presence] in Urine by Test strip ID Date Data Source [id number] 11/30/2019 05:09:00 PM [facility] Name Value Range Interpretation Description Data Sup porting Code Source(s) Document(s ) URINE NEGATIVE [facility] NITRITES Hospital ID Date Data Source [id number] 11/30/2019 05:09:00 PM EDT [facility] Value Range Interpretation Description Data Sup porting Code Source(s) Document(s ) Erythrocytes NEGATIVE [facility] [#/volume] in Hospital Urine by Test strip ID Date Data Source [id number] 11/30/2019 [facility]09[facility] Interpretation Code Description Data Bryanna rce(s) Supporting Document(s ) Bilirubin. NEGATIVE [facility] total Hospital [Presence] in Urine by Test strip ID Date Data Source [id number] 11/30/2019 [facility]:09[facility] Value Range Interpretation Description Data Sup porting Code Source(s) Document(s ) Urobilinogen 1.0 [facility] [Units/volume] mg/dL Hospital in Urine by Test strip ID Date Data Source [id number] 11/30/2019 05:09:[facility] Value Range Interpretation Description Data Sup porting Code Source(s) Document(s ) Ketones NEGATIVE [facility] [Mass/volume Hospital ] in Urine by Test strip ID Date Data Source [id number] 11/30/2019 [facility]:09[facility] Value Range Interpretation Code Description Data Bryanna rce(s) Supporting Document(s ) Glucose TRACE [facility] [Mass/volume Hospital ] in Urine by Test strip ID Date Data Source [id number] 11/30/2019 05:09:[facility] Value Range Interpretation Description Data Sup porting Code Source(s) Document(s ) Protein NEGATIVE [facility] [Presence] Hospital in Urine by Test strip ID Date Data Source [id number] 11/30/2019 05:09:00 PM [facility] Name Value Range Interpretation Code Description Data Bryanna rce(s) Supporting Document(s ) pH of Urine 7.5 [facility] by Test Hospital strip ID Date Data Source [id number] 11/30/2019 05:09:00 PM [facility] Name Value Range Interpretation Code Description Data Supporting Source(s) Document(s ) Specific 1.012 [facility] gravity of Hospital Urine by Test strip ID Date Data Source [id number] 11/30/2019 05:09:00 PM [facility] Name Value Range Interpretation Description Data Sup porting Code Source(s) Document(s ) Clarity in Urine CLEAR [facility] by Refractometry Hospital automated ID Date Data Source [id number] 11/30/2019 05:09:00 PM [facility] Name Value Range Interpretation Code Description Data Bryanna rce(s) Supporting Document(s ) Color of YELLOW [facility] Urine Hospital ID Date Data Source [id number] 11/30/2019 03:51:00 PM [facility] THERAPEUTIC RANGES:UNFRACTIONATED HEPARI N THERAPY: 60-90 SECONDSARGATROBAN THERAPY: 49-99 SECONDS Name Value Range Interpretation Description Data Sup porting Code Source(s) Document(s ) aPTT in 28.3 s [facility] Platelet poor [facility] plasma by Coagulation assay ID Date Data Source [id number] 11/30/2019 03:51:00 PM [facility] THERAPEUTIC RANGE FOR STANDARD ORALANTIC OAGULANT THERAPY: 2.0-3.0THERAPEUTIC RANGE FOR HIGH DOSE ORALANTICOAGULANT THERAPY (MECHANICAL HEARTVALVE REPLACEMENT): 2.5-3.5 Name Value Range Interpretation Description Data Sup porting Code Source(s) Document(s ) INR in Platelet 1.0 [facility] poor plasma by Hospital Coagulation assay ID Date Data Source [id number] 11/30/2019 03:51:00 PM EDT [facility] Value Range Interpretation Description Data Sup porting Code Source(s) Document(s ) PT panel - 11.8 s [facility] Platelet poor [facility] plasma by Coagulation assay ID Date Data Source [id number] 11/30/2019 03:36:00 PM EDT [facility] Value Range Interpretation Description Data Sup porting Code Source(s) Document(s ) Thyroxine 0.7 ng/dL [facility] (T4) [facility] [Mass/volume] in Serum or Plasma ID Date Data Source [id number] 11/30/2019 03:36:00 PM EDT [facility] Value Range Interpretation Description Data Sup porting Code Source(s) Document(s ) Thyrotropin 2.072 [facility] [Units/volume] u[IU]/mL Hospital in Serum or Plasma by Detection limit <= 0.005 mIU/L ID Date Data Source [id number] 11/30/2019 [facility]:36[facility] Interpretation Description Data Sup porting Code Source(s) Document(s ) Thyroxine 0.7 ng/dL [facility] (T4) [facility] Hospital [Mass/volume] in Serum or Plasma ID Date Data Source [id number] 11/30/2019 03:36:[facility] Value Range Interpretation Description Data Sup porting Code Source(s) Document(s ) Thyrotropin 2.072 [facility] [Units/volume] u[IU]/mL Hospital in Serum or Plasma by Detection limit <= 0.005 mIU/L ID Date Data Source [id number] 11/30/2019 03:36:00 PM EDT [facility] Name Value Range Interpretation Description Data Sup porting Code Source(s) Document(s ) Thyroxine 0.7 ng/dL [facility] (T4) free Hospital [Mass/volume] in Serum or Plasma ID Date Data Source [id number] 11/30/2019 03:36:00 PM [facility] Name Value Range Interpretation Description Data Sup porting Code Source(s) Document(s ) Thyrotropin 2.072 [facility] [Units/volume] u[IU]/mL Hospital in Serum or Plasma by Detection limit <= 0.005 mIU/L ID Date Data Source [id number] 11/30/2019 03:36:00 PM [facility] UNITS ARE IN ml/min/1.73m2.IF PATIENT IS -[place], MULTIPLY REPORTED RESULT BY 1.21. Name Value Range Interpretation Description Data Sup porting Code Source(s) Document(s ) Glomerular > 60 [facility] filtration mL/min Hospital rate/1.73 sq M.predicted [Volume Rate/Area] in Serum or Plasma by Creatinine-bas ed formula (MDRD) ID Date Data Source [id number] 11/30/2019 02:18:00 PM [facility] TEST RESULT IS A TOTAL TRICYCLIC VALUE.T RICYCLIC ANTIDEPRESSANT REFERENCE RANGE: AMITRIPTYLINE AND METABOLITE (NORTRIPTYL INE) TOTAL THERAPEUTIC: 75 - 225 NG/ML. TOTAL TOXIC: > 400 NG/ML. NORTRIPTYLINE ONLY TOTAL THERAPEUTIC: 50 - 150 NG/ML. TOTAL TOXIC: > 400 NG/ML. IMIPRAMINE AND METABOLITE (DESIPRAMINE) TOTAL THERAPEUTIC: 125 - 175 NG/ML. TOTAL TOXIC: > 400 NG/ML. Name Value Range Interpretation Description Data Sup porting Code Source(s) Document(s ) TRICYCLIC < 80 [facility] ANTIDEPRESSANT ng/mL Hospital ID Date Data Source [id number] 11/30/2019 02:18:00 PM [facility] REFERENCE RANGES: ANALGESIC: 0.0 - 10.0 MG/DL. ARTHRITIC THERAPY: 15.0 - 30.0 MG/DL. Name Value Range Interpretation Description Data Sup porting Code Source(s) Document(s ) Salicylates < 3.0 [facility] [Mass/volume] mg/dL Hospital in Serum or Plasma ID Date Data Source [id number] 11/30/2019 02:18:00 PM [facility] THERAPEUTIC RANGE: 10.0-30.0 UG/MLTOXIC RANGE: 4 HRS AFTER INGESTION >150 UG/ML 12 HRS AFTER INGESTION >35 UG/ML Name Value Range Interpretation Description Data Sup porting Code Source(s) Document(s ) ACETAMINOPHEN < 10.0 [facility] ug/mL Hospital ID Date Data Source [id number] 11/30/2019 02:18:00 PM [facility] Name Value Range Interpretation Description Data Sup porting Code Source(s) Document(s ) OSMOLALITY 310 [facility] (SERUM) mosm/kg Hospital ID Date Data Source [id number] 11/30/2019 02:18:00 PM [facility] TEST RESULT IS A TOTAL TRICYCLIC VALUE.T RICYCLIC ANTIDEPRESSANT REFERENCE RANGE: AMITRIPTYLINE AND METABOLITE (NORTRIPTYL INE) TOTAL THERAPEUTIC: 75 - 225 NG/ML. TOTAL TOXIC: > 400 NG/ML. NORTRIPTYLINE ONLY TOTAL THERAPEUTIC: 50 - 150 NG/ML. TOTAL TOXIC: > 400 NG/ML. IMIPRAMINE AND METABOLITE (DESIPRAMINE) TOTAL THERAPEUTIC: 125 - 175 NG/ML. TOTAL TOXIC: > 400 NG/ML. Name Value Range Interpretation Description Data Sup porting Code Source(s) Document(s ) TRICYCLIC < 80 [facility] ANTIDEPRESSANT ng/mL Hospital ID Date Data Source [id number] 11/30/2019 02:18:00 PM [facility] REFERENCE RANGES: ANALGESIC: 0.0 - 10.0 MG/DL. ARTHRITIC THERAPY: 15.0 - 30.0 MG/DL. Name Value Range Interpretation Description Data Sup porting Code Source(s) Document(s ) Salicylates < 3.0 [facility] [Mass/volume] mg/dL Hospital in Serum or Plasma ID Date Data Source [id number] 11/30/2019 02:18:00 PM [facility] THERAPEUTIC RANGE: 10.0-30.0 UG/MLTOXIC RANGE: 4 HRS AFTER INGESTION >150 UG/ML 12 HRS AFTER INGESTION >35 UG/ML Name Value Range Interpretation Description Data Sup porting Code Source(s) Document(s ) ACETAMINOPHEN < 10.0 [facility] ug/mL Hospital ID Date Data Source [id number] 11/30/2019 02:18:00 PM [facility] Name Value Range Interpretation Description Data Sup porting Code Source(s) Document(s ) OSMOLALITY 310 [facility] (SERUM) mosm/kg Hospital ID Date Data Source [id number] 11/30/2019 02:18:00 PM [facility] REFERENCE RANGES: NONE DETECTED <20 MG/DL NONE TO MILD EUPHORIA 20-49 MG/DL MILD EUPHORIA 50-99 MG/DL MODERATE EUPHORIA 100-149 MG/DL INTOXICATION 150-300 MG/DL Name Value Range Interpretation Description Data Sup porting Code Source(s) Document(s ) Ethanol < 20 [facility] [Mass/volume mg/dL Hospital ] in Serum or Plasma ID Date Data Source [id number] 11/30/2019 02:18:00 PM [facility] TEST RESULT IS A TOTAL TRICYCLIC VALUE.T RICYCLIC ANTIDEPRESSANT REFERENCE RANGE: AMITRIPTYLINE AND METABOLITE (NORTRIPTYL INE) TOTAL THERAPEUTIC: 75 - 225 NG/ML. TOTAL TOXIC: > 400 NG/ML. NORTRIPTYLINE ONLY TOTAL THERAPEUTIC: 50 - 150 NG/ML. TOTAL TOXIC: > 400 NG/ML. IMIPRAMINE AND METABOLITE (DESIPRAMINE) TOTAL THERAPEUTIC: 125 - 175 NG/ML. TOTAL TOXIC: > 400 NG/ML. Name Value Range Interpretation Description Data Sup porting Code Source(s) Document(s ) TRICYCLIC < 80 [facility] ANTIDEPRESSANT ng/mL Hospital ID Date Data Source [id number] 11/30/2019 02:18:00 PM [facility] REFERENCE RANGES: ANALGESIC: 0.0 - 10.0 MG/DL. ARTHRITIC THERAPY: 15.0 - 30.0 MG/DL. Name Value Range Interpretation Description Data Sup porting Code Source(s) Document(s ) Salicylates < 3.0 [facility] [Mass/volume] mg/dL Hospital in Serum or Plasma ID Date Data Source [id number] 11/30/2019 02:18:00 PM [facility] THERAPEUTIC RANGE: 10.0-30.0 UG/MLTOXIC RANGE: 4 HRS AFTER INGESTION >150 UG/ML 12 HRS AFTER INGESTION >35 UG/ML Name Value Range Interpretation Description Data Sup porting Code Source(s) Document(s ) ACETAMINOPHEN < 10.0 [facility] ug/mL Hospital ID Date Data Source [id number] 11/30/2019 02:18:00 PM [facility] TEST PERFORMED BY [employer] [facility] CHEMILUMINESCENCE METHOD. Name Value Range Interpretation Description Data Sup porting Code Source(s) Document(s ) Troponin < 0.01 [facility] I.cardiac ng/mL Hospital [Mass/volume ] in Serum or Plasma ID Date Data Source [id number] 11/30/2019 02:18:00 PM [facility] Name Value Range Interpretation Description Data Sup porting Code Source(s) Document(s ) OSMOLALITY 310 [facility] (SERUM) mosm/kg Hospital ID Date Data Source [id number] 11/30/2019 02:18:00 PM [facility] Name Value Range Interpretation Code Description Data Bryanna rce(s) Supporting Document(s ) Lipase 31 U/L [facility] [Enzymatic Hospital activity/vo lume] in Serum or Plasma ID Date Data Source [id number] 11/29/2019 08:03:00 AM [facility] Pediatric Allergist:RAFAEL YADIRA Name Value Range Interpretation Description Data Sup porting Code Source(s) Document(s ) Glucose 309 mg/dL [facility] [Mass/volume] [facility] in Capillary blood by Glucometer ID Date Data Source [id number] 11/29/2019 07:58:00 AM EDT [facility] Value Range Interpretation Code Description Data Bryanna rce(s) Supporting Document(s ) RBC COMMENT NORMAL [facility] ID Date Data Source [id number] [facility] Interpretation Description Data Sup porting Code Source(s) Document(s ) Basophils 0.04 [facility] [#/volume] in 10*3/uL Hospital Blood by Manual count ID Date Data Source [id number] [facility] Value Range Interpretation Description Data Sup porting Code Source(s) Document(s ) Basophils/100 1 % [facility] leukocytes in Hospital Blood by Manual count ID Date Data Source [id number] 11/[facility]2019 [facility] Name Value Range Interpretation Description Data Sup porting Code Source(s) Document(s ) Monocytes/100 15 % [facility] leukocytes in Hospital Blood by Manual count ID Date Data Source [id number] 11/29/2019 [facility] Value Range Interpretation Description Data Sup porting Code Source(s) Document(s ) Lymphocytes/100 36 % [facility] leukocytes in Hospital Blood by Manual count ID Date Data Source [id number] 11/[facility]2019 [facility] Name Value Range Interpretation Description Data Sup porting Code Source(s) Document(s ) Neutrophils/100 37 % [facility] leukocytes in Hospital Blood by Manual count ID Date Data Source [id number] 11/29/2019 07:58:00 AM [facility] NOTIFICATION AND READ BACK OF CRITICAL R ESULTS TO AARON NOEL RN 5F AT 0853 ON 11/29/19 BY Jessica Quinteros.REPORTED CR ITICAL VALUES SHOULD BE INTERPRETED WITHIN CLINICAL CONTEXT. Name Value Range Interpretation Description Data Sup porting Code Source(s) Document(s ) Ammonia 87 mmol/L [facility] [Moles/volum Hospital e] in Plasma ID Date Data Source [id number] 11/[facility]2019 [facility] Name Value Range Interpretation Description Data Sup porting Code Source(s) Document(s ) Aspartate 36 U/L [facility] aminotransferase [facility] [Enzymatic Hospital activity/volume] in Serum or Plasma ID Date Data Source [id number] 11/29/2019 07:58:00 AM [facility] Name Value Range Interpretation Description Data Sup porting Code Source(s) Document(s ) Alanine 29 U/L [facility] aminotransferase [facility] [Enzymatic Hospital activity/volume] in Serum or Plasma ID Date Data Source [id number] 11/29[facility]2019 [facility] Name Value Range Interpretation Description Data Sup porting Code Source(s) Document(s ) Alkaline 67 U/L [facility] Hospital [Enzymatic activity/volume ] in Serum or Plasma ID Date Data Source [id number] 11/29/2019 07:58:00 AM [facility] Name Value Range Interpretation Description Data Sup porting Code Source(s) Document(s ) Bilirubin.t 0.8 mg/dL [facility] [Mass/volum e] in Serum or Plasma ID Date Data Source [id number] 11/29/2019 07:58:00 AM EDT [facility] Name Value Range Interpretation Code Description Data Bryanna rce(s) Supporting Document(s ) Albumin/Glob 1.1 [facility] ulin [Mass Hospital Ratio] in Serum or Plasma ID Date Data Source [id number] 11/29/2019 07:58:00 AM EDT [facility] Name Value Range Interpretation Description Data Sup porting Code Source(s) Document(s ) Albumin 3.3 g/dL [facility] [Mass/volume Hospital ] in Serum or Plasma ID Date Data Source [id number] 11/29/2019 07:58:00 AM EDT [facility] Name Value Range Interpretation Description Data Sup porting Code Source(s) Document(s ) Protein 6.2 g/dL [facility] [Mass/volume Hospital ] in Serum or Plasma ID Date Data Source [id number] 11/29/2019 07:58:00 AM EDT [facility] Name Value Range Interpretation Description Data Sup porting Code Source(s) Document(s ) Calcium 9.3 mg/dL [facility] [Mass/volume Hospital ] in Serum or Plasma ID Date Data Source [id number] 11/29/2019 07:58:00 AM EDT [facility] UNITS ARE IN ml/min/1.73m2.IF PATIENT IS -[place], MULTIPLY REPORTED RESULT BY 1.21. Name Value Range Interpretation Description Data Sup porting Code Source(s) Document(s ) Glomerular > 60 [facility] filtration mL/min Hospital rate/1.73 sq M.predicted [Volume Rate/Area] in Serum or Plasma by Creatinine-bas ed formula (MDRD) ID Date Data Source [id number] 11/29/2019 07:58:00 AM EDT [facility] Name Value Range Interpretation Code Description Data Bryanna rce(s) Supporting Document(s ) Urea 18.8 [facility] nitrogen/Cre Hospital atinine [Mass Ratio] in Serum or Plasma ID Date Data Source [id number] 11/29/2019 07:58:00 AM EDT [facility] Name Value Range Interpretation Description Data Sup porting Code Source(s) Document(s ) Creatinine 0.8 mg/dL [facility] [Mass/volume] Hospital in Serum or Plasma ID Date Data Source [id number] 11/29/2019 07:58:00 AM EDT [facility] Value Range Interpretation Description Data Sup porting Code Source(s) Document(s ) Urea 15 mg/dL [facility] nitrogen Hospital [Mass/volume ] in Serum or Plasma ID Date Data Source [id number] 11/29/2019 07:58:00 AM EDT [facility] Value Range Interpretation Code Description Data Bryanna rce(s) Supporting Document(s ) Anion gap in 9 [facility] Serum or Hospital Plasma ID Date Data Source [id number] 11/29/2019 07:58:00 AM EDT [facility] Value Range Interpretation Description Data Sup porting Code Source(s) Document(s ) Carbon 31 mmol/L [facility] dioxide, Hospital total [Moles/volu me] in Serum or Plasma ID Date Data Source [id number] 11/29/2019 07:58:00 AM EDT [facility] Name Value Range Interpretation Description Data Sup porting Code Source(s) Document(s ) Chloride 106 [facility] [Moles/volum mmol/L Hospital e] in Serum or Plasma ID Date Data Source [id number] 11/29/2019 07:58:00 AM EDT [facility] Value Range Interpretation Description Data Sup porting Code Source(s) Document(s ) Potassium 5.2 [facility] [Moles/volume mmol/L Hospital ] in Serum or Plasma ID Date Data Source [id number] 11/29/2019 07:58:00 AM EDT [facility] Value Range Interpretation Description Data Sup porting Code Source(s) Document(s ) Sodium 141 mmol/L [facility] [Moles/volu Hospital nh] in Serum or Plasma ID Date Data Source [id number] 11/29/2019 07:58:00 AM EDT [facility] Value Range Interpretation Description Data Sup porting Code Source(s) Document(s ) Glucose 320 mg/dL [facility] [Mass/volume Hospital ] in Serum or Plasma ID Date Data Source [id number] 11/29/2019 07:58:00 AM EDT [facility] Value Range Interpretation Description Data Sup porting Code Source(s) Document(s ) Manual MANUAL [facility] differential Hospital performed [Presence] in Blood ID Date Data Source [id number] 11/[facility]2019 [facility]58[facility] Value Range Interpretation Description Data Sup porting Code Source(s) Document(s ) Platelet mean 12.7 fL [facility] volume Hospital [Entitic volume] in Blood by Automated count ID Date Data Source [id number] 11/29/2019 07:58:00 AM EDT [facility] Value Range Interpretation Description Data Sup porting Code Source(s) Document(s ) Platelets 140 [facility] [#/volume] in 10*3/uL Hospital Blood by Automated count ID Date Data Source [id number] 11/29/2019 07[facility]58:[facility] Value Range Interpretation Description Data Sup porting Code Source(s) Document(s ) Erythrocyte 13.5 % [facility] distribution Hospital width [Ratio] by Automated count ID Date Data Source [id number] 11/29/2019 07:58:00 AM [facility] Name Value Range Interpretation Description Data Sup porting Code Source(s) Document(s ) Erythrocyte mean 34.3 [facility] corpuscular g/dL Hospital hemoglobin concentration [Mass/volume] by Automated count ID Date Data Source [id number] 11/29/2019 07:58:00 AM [facility] Name Value Range Interpretation Description Data Sup porting Code Source(s) Document(s ) Erythrocyte 30.3 pg [facility] corpuscular hemoglobin [Entitic mass] by Automated count ID Date Data Source [id number] 11/29/2019 07:58:00 AM [facility] THIS TEST RESULT HAS BEEN CONFIRMED BY R EPEAT ANALYSIS. Name Value Range Interpretation Description Data Sup porting Code Source(s) Document(s ) Erythrocyte 88.3 fL [facility] corpuscular volume [Entitic volume] by Automated count ID Date Data Source [id number] 11/29/2019 07:58:00 AM [facility] Name Value Range Interpretation Description Data Sup porting Code Source(s) Document(s ) Hematocrit 34.7 % [facility] [Volume Hospital Fraction] of Blood by Automated count ID Date Data Source [id number] 11/29/2019 07:58:00 AM [facility] Name Value Range Interpretation Description Data Sup porting Code Source(s) Document(s ) Hemoglobin 11.9 g/dL [facility] [Mass/volume] Hospital in Blood ID Date Data Source [id number] 11/29/2019 07:58:00 AM [facility] Name Value Range Interpretation Description Data Sup porting Code Source(s) Document(s ) Erythrocytes 3.93 [facility] [#/volume] in 10*6/uL Hospital Blood by Automated count ID Date Data Source [id number] 11/29/2019 07:58:00 AM EDT [facility] Name Value Range Interpretation Description Data Sup porting Code Source(s) Document(s ) Leukocytes 3.6 [facility] [#/volume] in 10*3/uL Hospital Blood by Automated count ID Date Data Source [id number] 11/29/2019 07:58:00 AM EDT [facility] Name Value Range Interpretation Description Data Sup porting Code Source(s) Document(s ) Manual MANUAL [facility] differential Hospital performed [Presence] in Blood ID Date Data Source [id number] 11/29/2019 07:58:00 AM EDT [facility] Value Range Interpretation Code Description Data Bryanna rce(s) Supporting Document(s ) Cells 100 [facility] Counted Hospital Total [#] in Blood ID Date Data Source [id number] 11/29/2019 07:58:00 AM EDT [facility] Value Range Interpretation Code Description Data Supporting Source(s) Document(s ) PLATELET NORMAL [facility] COMMENT Hospital ID Date Data Source [id number] 11/29/2019 07:58:00 AM EDT [facility] Value Range Interpretation Code Description Data Bryanna rce(s) Supporting Document(s ) RBC COMMENT NORMAL [facility] Hospital ID Date Data Source [id number] 11/29/2019 07:58:00 AM EDT [facility] Value Range Interpretation Description Data Sup porting Code Source(s) Document(s ) Basophils 0.04 [facility] [#/volume] in 10*3/uL Hospital Blood by Manual count ID Date Data Source [id number] 11/29/2019 07:58:00 AM EDT [facility] Value Range Interpretation Description Data Sup porting Code Source(s) Document(s ) Eosinophils 0.40 [facility] [#/volume] in 10*3/uL Hospital Blood by Manual count ID Date Data Source [id number] 11/29/2019 07:58:00 AM EDT [facility] Name Value Range Interpretation Description Data Sup porting Code Source(s) Document(s ) Monocytes 0.54 [facility] [#/volume] in 10*3/uL Hospital Blood by Manual count ID Date Data Source [id number] 11/29/2019 07:58:00 AM EDT [facility] Name Value Range Interpretation Description Data Sup porting Code Source(s) Document(s ) Lymphocytes 1.30 [facility] [#/volume] in 10*3/uL Hospital Blood by Manual count ID Date Data Source [id number] 11/29/2019 07:58:00 AM EDT [facility] Name Value Range Interpretation Description Data Sup porting Code Source(s) Document(s ) Neutrophils 1.33 [facility] [#/volume] in 10*3/uL Hospital Blood by Manual count ID Date Data Source [id number] 11/29/2019 07:58:00 AM EDT [facility] Name Value Range Interpretation Description Data Sup porting Code Source(s) Document(s ) Basophils/100 1 % [facility] leukocytes in Hospital Blood by Manual count ID Date Data Source [id number] 11/29/2019 07:58:00 AM EDT [facility] Name Value Range Interpretation Description Data Sup porting Code Source(s) Document(s ) Eosinophils/100 11 % [facility] leukocytes in Hospital Blood by Manual count ID Date Data Source [id number] 11/28/2019 08:18:00 AM EDT [facility] NEUT VACUOLES PRESENT Name Value Range Interpretation Code Description Data Supporting Source(s) Document(s ) WBC COMMENT PRESENT [facility] ID Date Data Source [id number] 11/28/2019 08:18:00 AM EDT [facility] Name Value Range Interpretation Code Description Data Bryanna rce(s) Supporting Document(s ) Cells 100 [facility] Total [#] in Blood ID Date Data Source [id number] 11/28/2019 08:18:00 AM EDT [facility] Name Value Range Interpretation Description Data Sup porting Code Source(s) Document(s ) Platelet NORMAL [facility] Comment ID Date Data Source [id number] 11/28/2019 08:18:00 AM EDT [facility] NEUT VACUOLES PRESENT Name Value Range Interpretation Code Description Data Supporting Source(s) Document(s ) WBC COMMENT PRESENT [facility] ID Date Data Source [id number] 11/28/2019 08:18:00 AM EDT [facility] Name Value Range Interpretation Code Description Data Bryanna rce(s) Supporting Document(s ) TARGET CELLS [facility] ID Date Data Source [id number] [facility] Value Range Interpretation Description Data Sup porting Code Source(s) Document(s ) POIKILOCYTOSIS [facility] ID Date Data Source [id number] 11/28/2019 [facility] Name Value Range Interpretation Description Data Sup porting Code Source(s) Document(s ) Eosinophils 0.27 [facility] [#/volume] in 10*3/uL Hospital Blood by Manual count ID Date Data Source [id number] 11/28/2019 [facility] Value Range Interpretation Description Data Sup porting Code Source(s) Document(s ) Monocytes 0.30 [facility] [#/volume] in 10*3/uL Hospital Blood by Manual count ID Date Data Source [id number] 11/28/2019 08:18:00 AM EDT [facility] Name Value Range Interpretation Description Data Sup porting Code Source(s) Document(s ) Lymphocytes 1.71 [facility] [#/volume] in 10*3/uL Hospital Blood by Manual count ID Date Data Source [id number] 11/28/2019 08:18:00 AM EDT [facility] Name Value Range Interpretation Description Data Sup porting Code Source(s) Document(s ) Neutrophils 1.52 [facility] [#/volume] in 10*3/uL Hospital Blood by Manual count ID Date Data Source [id number] 11/28/2019 08:18:00 AM EDT [facility] Value Range Interpretation Description Data Sup porting Code Source(s) Document(s ) Eosinophils/100 7 % [facility] leukocytes in Hospital Blood by Manual count ID Date Data Source [id number] 11/28/2019 08:18:00 AM EDT [facility] Value Range Interpretation Description Data Sup porting Code Source(s) Document(s ) Monocytes/100 8 % [facility] leukocytes in Hospital Blood by Manual count ID Date Data Source [id number] 11/28/2019 08:18:00 AM EDT [facility] Value Range Interpretation Description Data Sup porting Code Source(s) Document(s ) Lymphocytes/100 45 % [facility] leukocytes in Hospital Blood by Manual count ID Date Data Source [id number] 11/28/2019 08:18:00 AM EDT [facility] Value Range Interpretation Description Data Sup porting Code Source(s) Document(s ) Neutrophils/100 40 % [facility] leukocytes in Hospital Blood by Manual count ID Date Data Source [id number] 11/28/2019 08:18:00 AM EDT [facility] NEUT VACUOLES PRESENT Name Value Range Interpretation Code Description Data Supporting Source(s) Document(s ) WBC COMMENT PRESENT [facility] ID Date Data Source [id number] 11/28/2019 08:18:00 AM EDT [facility] Name Value Range Interpretation Code Description Data Bryanna rce(s) Supporting Document(s ) TARGET CELLS [facility] ID Date Data Source [id number] 11/28/2019 08:18:00 AM EDT [facility] Name Value Range Interpretation Description Data Sup porting Code Source(s) Document(s ) POIKILOCYTOSIS [facility] ID Date Data Source [id number] 11/27/2019 09:23:00 PM EDT [facility] Name Value Range Interpretation Description Data Sup porting Code Source(s) Document(s ) GLUCOSE RN Notified [facility] ID Date Data Source [id number] 11/27/2019 08:25:00 AM EDT [facility] Name Value Range Interpretation Description Data Sup porting Code Source(s) Document(s ) Bilirubin.d 0.3 mg/dL [facility] Hospital [Mass/volum e] in Serum or Plasma ID Date Data Source [id number] 11/27[facility]2019 [facility] Value Range Interpretation Description Data Sup porting Code Source(s) Document(s ) Phosphate 4.5 mg/dL [facility] [Mass/volume] Hospital in Serum or Plasma ID Date Data Source [id number] 11/27/2019 08:25:00 AM EDT [facility] Name Value Range Interpretation Description Data Sup porting Code Source(s) Document(s ) Magnesium 1.9 mg/dL [facility] [Mass/volume] Hospital in Serum or Plasma ID Date Data Source [id number] 11/27/2019 08:25:00 AM EDT [facility] Name Value Range Interpretation Description Data Sup porting Code Source(s) Document(s ) Bilirubin.d 0.3 mg/dL [facility] Hospital [Mass/volum e] in Serum or Plasma ID Date Data Source [id number] 11/27/2019 08:25:00 AM EDT [facility] Value Range Interpretation Code Description Data Supporting Source(s) Document(s ) NUCLEATED RBCS 0.0 % [facility] (AUTO Hospital DIFF%)DIS ID Date Data Source [id number] 11/27/2019 08:25:00 AM EDT [facility] Value Range Interpretation Description Data Sup porting Code Source(s) Document(s ) Differential AUTOMATED [facility] cell count [facility] method - Blood ID Date Data Source [id number] [facility]2019 [facility] Interpretation Description Data Sup porting Code Source(s) Document(s ) Immature 0.01 [facility] granulocytes 10*3/uL Hospital [#/volume] in Blood by Automated count ID Date Data Source [id number] 11/27/2019 08:25:00 AM EDT [facility] Value Range Interpretation Description Data Sup porting Code Source(s) Document(s ) Basophils 0.04 [place] [#/volume] in 10*3/uL Hospital Blood by Automated count ID Date Data Source [id number] [facility] Value Range Interpretation Description Data Sup porting Code Source(s) Document(s ) Eosinophils 0.11 [facility] [#/volume] in 10*3/uL Hospital Blood by Automated count ID Date Data Source [id number] 11/27/2019 08:25:00 AM EDT [facility] Value Range Interpretation Description Data Sup porting Code Source(s) Document(s ) Monocytes 0.51 [facility] [#/volume] in 10*3/uL Hospital Blood by Automated count ID Date Data Source [id number] 11/27/2019 08:25:00 AM EDT [facility] Value Range Interpretation Description Data Sup porting Code Source(s) Document(s ) Lymphocytes 2.18 [place] [#/volume] in 10*3/uL [facility] Blood by Automated count ID Date Data Source [id number] 11/27/2019 08:25:00 AM EDT [facility] Value Range Interpretation Description Data Sup porting Code Source(s) Document(s ) Neutrophils 1.65 [place] [#/volume] in 10*3/uL [facility] Blood by Automated count ID Date Data Source [id number] 11/27/2019 08:25:00 AM EDT [facility] Value Range Interpretation Description Data Sup porting Code Source(s) Document(s ) Nucleated 0.0 % [facility] erythrocytes/10 Hospital 0 leukocytes [Ratio] in Blood by Automated count ID Date Data Source [id number] 11/27/2019 08:25:00 AM EDT [facility] Value Range Interpretation Description Data Sup porting Code Source(s) Document(s ) Immature 0.2 % [facility] granulocytes/10 Hospital 0 leukocytes in Blood by Automated count ID Date Data Source [id number] 11/27/2019 08:25:00 AM EDT [facility] Value Range Interpretation Description Data Sup porting Code Source(s) Document(s ) Basophils/100 0.9 % [facility] leukocytes in Hospital Blood by Automated count ID Date Data Source [id number] 11/27/2019 08:25:00 AM EDT [facility] Name Value Range Interpretation Description Data Sup porting Code Source(s) Document(s ) Eosinophils/100 2.4 % [facility] leukocytes in Hospital Blood by Automated count ID Date Data Source [id number] 11/27/2019 08:25:00 AM EDT [facility] Name Value Range Interpretation Description Data Sup porting Code Source(s) Document(s ) Monocytes/100 11.3 % [facility] leukocytes in Hospital Blood by Automated count ID Date Data Source [id number] 11/27/2019 08:25:00 AM EDT [facility] Value Range Interpretation Description Data Sup porting Code Source(s) Document(s ) Lymphocytes/10 48.4 % [facility] 0 leukocytes Hospital in Blood by Automated count ID Date Data Source [id number] 11/27/2019 08:25:00 AM EDT [facility] Name Value Range Interpretation Description Data Sup porting Code Source(s) Document(s ) Neutrophils/10 36.8 % [facility] 0 leukocytes Hospital in Blood by Automated count ID Date Data Source [id number] 11/27/2019 08:25:00 AM EDT [facility] Name Value Range Interpretation Description Data Sup porting Code Source(s) Document(s ) Phosphate 4.5 mg/dL [facility] [Mass/volume] Hospital in Serum or Plasma ID Date Data Source [id number] 11/27/2019 08:25:00 AM EDT [facility] Name Value Range Interpretation Description Data Sup porting Code Source(s) Document(s ) Magnesium 1.9 mg/dL [facility] [Mass/volume] Hospital in Serum or Plasma ID Date Data Source [id number] 11/27/2019 08:25:00 AM [facility] Name Value Range Interpretation Description Data Sup porting Code Source(s) Document(s ) Bilirubin.d 0.3 mg/dL [facility] [Mass/volum e] in Serum or Plasma ID Date Data Source [id number] 11/26/2019 12:00:00 AM [facility] REFERENCE RANGES: NONE DETECTED <20 MG/DL NONE TO MILD EUPHORIA 20-49 MG/DL MILD EUPHORIA 50-99 MG/DL MODERATE EUPHORIA 100-149 MG/DL INTOXICATION 150-300 MG/DL Name Value Range Interpretation Description Data Sup porting Code Source(s) Document(s ) Ethanol < 20 [facility] [Mass/volume mg/dL Hospital ] in Serum or Plasma ID Date Data Source [id number] 11/21/2019 02:23:00 AM [facility] NOTIFICATION AND READ BACK OF CRITICAL R ESULTS TO Jesse Mckeon RN 3F AT 0255 ON 11/21/19 BY Ronn Salinas.REPORTED CRITICAL VALUES SHOULD BE INTERPRETED WITHIN CLINICAL CONTEXT. Name Value Range Interpretation Description Data Sup porting Code Source(s) Document(s ) Lactate 2.9 [facility] [Moles/volum mmol/L Hospital e] in Serum or Plasma ID Date Data Source [id number] 11/21/2019 02:23:00 AM [facility] NOTIFICATION AND READ BACK OF CRITICAL R ESULTS TO Jesse Mckeon RN 3F AT 0255 ON 11/21/19 BY Ronn Salinas.REPORTED CRITICAL VALUES SHOULD BE INTERPRETED WITHIN CLINICAL CONTEXT. Name Value Range Interpretation Description Data Sup porting Code Source(s) Document(s ) Lactate 2.9 [facility] [Moles/volum mmol/L Hospital e] in Serum or Plasma ID Date Data Source [id number] 11/21/2019 02:23:00 AM [facility] NOTIFICATION AND READ BACK OF CRITICAL R ESULTS TO Jesse Mckeon RN 3F AT 0255 ON 11/21/19 BY Ronngilda Salinas.REPORTED CRITICAL VALUES SHOULD BE INTERPRETED WITHIN CLINICAL CONTEXT. Name Value Range Interpretation Description Data Sup porting Code Source(s) Document(s ) Lactate 2.9 [facility] [Moles/volum mmol/L Hospital e] in Serum or Plasma ID Date Data Source [id number] 11/20/2019 09:54:00 PM EDT [facility] ADA RECOMMENDATIONS: NON-DIABETES: 4.0-6.0% CONTROLLED DIABETES: 6.0-8.0% UNCONTROLLED DIABETE S: UP TO 20%RECOMMENDED ADA RESULT FOR THERAPY: HEMOGLOBIN A1C RESULT LESS GM N 7%.NOTE: METHOD CHANGE EFFECTIVE 11/11/14. Name Value Range Interpretation Description Data Sup porting Code Source(s) Document(s ) Hemoglobin 11.2 % [facility] A1c/Hemoglobin [facility] .total in Blood ID Date Data Source [id number] [facility]2019 [facility] RECOMMENDATIONS: NON-DIABETES: 4.0-6.0% CONTROLLED DIABETES: 6.0-8.0% UNCONTROLLED DIABETE S: UP TO 20%RECOMMENDED ADA RESULT FOR THERAPY: HEMOGLOBIN A1C RESULT LESS GM N 7%.NOTE: METHOD CHANGE EFFECTIVE 11/11/14. Name Value Range Interpretation Description Data Sup porting Code Source(s) Document(s ) Hemoglobin 11.2 % [facility] A1c/Hemoglobin Hospital .total in Blood ID Date Data Source [id number] [facility]/20[facility]2019 [facility]54[facility] TEST PERFORMED BY [facility] [facility] SENS[facility] CHEMILUMINESCENCE METHOD. Name Value Range Interpretation Description Data Sup porting Code Source(s) Document(s ) Troponin 0.02 [facility] I.cardiac ng/mL Hospital [Mass/volume ] in Serum or Plasma ID Date Data Source [id number] 11/20/2019 09[facility]54[facility] THERAPEUTIC RANGES:UNFRACTIONATED HEPARI N THERAPY: 60-90 SECONDSARGATROBAN THERAPY: 49-99 SECONDS Name Value Range Interpretation Description Data Sup porting Code Source(s) Document(s ) aPTT in 29.6 s [facility] Platelet poor Hospital plasma by Coagulation assay ID Date Data Source [id number] 11/20/2019 09:54:00 PM EDT [facility] THERAPEUTIC RANGE FOR STANDARD ORALANTIC OAGULANT THERAPY: 2.0-3.0THERAPEUTIC RANGE FOR HIGH DOSE ORALANTICOAGULANT THERAPY (MECHANICAL HEARTVALVE REPLACEMENT): 2.5-3.5 Name Value Range Interpretation Description Data Sup porting Code Source(s) Document(s ) INR in Platelet 0.9 [facility] poor plasma by Hospital Coagulation assay ID Date Data Source [id number] 11/20/2019 09:54:00 PM EDT [facility] Name Value Range Interpretation Description Data Sup porting Code Source(s) Document(s ) PT panel - 11.1 s [facility] Platelet poor [facility] plasma by Coagulation assay ID Date Data Source [id number] 11/20/2019 [facility]54[facility] ADA RECOMMENDATIONS: NON-DIABETES: 4.0-6.0% CONTROLLED DIABETES: 6.0-8.0% UNCONTROLLED DIABETE S: UP TO 20%RECOMMENDED ADA RESULT FOR THERAPY: HEMOGLOBIN A1C RESULT LESS GM N 7%.NOTE: METHOD CHANGE EFFECTIVE 11/11/14. Name Value Range Interpretation Description Data Sup porting Code Source(s) Document(s ) Hemoglobin 11.2 % [facility] A1c/Hemoglobin Hospital .total in Blood ID Date Data Source [id number] 11/20/2019 08[facility]15[facility] Name Value Range Interpretation Code Description Data Bryanna rce(s) Supporting Document(s ) READ BACK Yes/ [facility] ID Date Data Source [id number] 11/20/2019 08:15:00 PM EDT [facility] Name Value Range Interpretation Code Description Data Bryanna rce(s) Supporting Document(s ) NOTE WHO DR BARRETT [facility] ID Date Data Source [id number] 11/20/2019 08:15:00 PM EDT [facility] Name Value Range Interpretation Description Data Sup porting Code Source(s) Document(s ) IONIZED 1.10 [facility] CALCIUM mmol/L Hospital ID Date Data Source [id number] 11/20/2019 08:15:00 PM EDT [facility] Name Value Range Interpretation Code Description Data Supporting Source(s) Document(s ) METHEMOGLOBIN % [facility] ID Date Data Source [id number] 11/20/2019 08:15:00 PM EDT [facility] Name Value Range Interpretation Description Data Sup porting Code Source(s) Document(s ) CARBOXYHEMOGLOBIN % [facility] ID Date Data Source [id number] 11/20/2019 08:15:00 PM EDT [facility] Value Range Interpretation Code Description Data Bryanna rce(s) Supporting Document(s ) ABG TEMP 98.0 [facility] ID Date Data Source [id number] 11/20/2019 08:15:00 PM EDT [facility] Name Value Range Interpretation Code Description Data Bryanna rce(s) Supporting Document(s ) FIO2 21 % [facility] ID Date Data Source [id number] 11/20/2019 08:15:00 PM EDT [facility] Name Value Range Interpretation Code Description Data Bryanna rce(s) Supporting Document(s ) ABG BE -8.3 mmol/L [facility] ID Date Data Source [id number] 11/20/2019 08:15:00 PM EDT [facility] Name Value Range Interpretation Code Description Data Bryanna rce(s) Supporting Document(s ) ABG HCO3 18 mmol/L [facility] ID Date Data Source [id number] 11/20/2019 08:15:00 PM EDT [facility] Value Range Interpretation Code Description Data Bryanna rce(s) Supporting Document(s ) ABG PO2 18 mm[Hg] [facility] ID Date Data Source [id number] 11/20/2019 08:15:00 PM EDT [facility] Value Range Interpretation Code Description Data Bryanna rce(s) Supporting Document(s ) ABG PCO2 41 mm[Hg] [facility] ID Date Data Source [id number] 11/20/2019 08:15:00 PM EDT [facility] Value Range Interpretation Code Description Data Bryanna rce(s) Supporting Document(s ) ABG PH 7.27 [facility] ID Date Data Source [id number] 11/20/2019 08:15:00 PM EDT [facility] Value Range Interpretation Code Description Data Bryanna rce(s) Supporting Document(s ) JORGE TEST POSITIVE [facility] ID Date Data Source [id number] 11/20/2019 08:15:00 PM EDT [facility] Value Range Interpretation Code Description Data Bryanna rce(s) Supporting Document(s ) READ BACK Yes/ [facility] ID Date Data Source [id number] 11/20/2019 08:15:00 PM EDT [facility] Value Range Interpretation Code Description Data Bryanna rce(s) Supporting Document(s ) NOTE WHO DR BARRETT [facility] ID Date Data Source [id number] 11/20/2019 08:15:00 PM EDT [facility] Name Value Range Interpretation Description Data Sup porting Code Source(s) Document(s ) IONIZED 1.10 [facility] CALCIUM mmol/L Hospital ID Date Data Source [id number] 11/20/2019 08:15:00 PM EDT [facility] Name Value Range Interpretation Code Description Data Supporting Source(s) Document(s ) METHEMOGLOBIN % [facility] ID Date Data Source [id number] 11/20/2019 08:15:00 PM EDT [facility] Name Value Range Interpretation Description Data Sup porting Code Source(s) Document(s ) CARBOXYHEMOGLOBIN % [facility] ID Date Data Source [id number] 11/20/2019 08:15:00 PM EDT [facility] Value Range Interpretation Code Description Data Bryanna rce(s) Supporting Document(s ) ABG TEMP 98.0 [facility] ID Date Data Source [id number] 11/20/2019 08:15:00 PM EDT [facility] Value Range Interpretation Code Description Data Bryanna rce(s) Supporting Document(s ) FIO2 21 % [facility] ID Date Data Source [id number] 11/20/2019 08:15:00 PM EDT [facility] Name Value Range Interpretation Code Description Data Bryanna rce(s) Supporting Document(s ) ABG BE -8.3 mmol/L [facility] ID Date Data Source [id number] 11/20/2019 08:15:00 PM EDT [facility] Value Range Interpretation Code Description Data Bryanna rce(s) Supporting Document(s ) ABG HCO3 18 mmol/L [facility] ID Date Data Source [id number] 11/20/2019 08:15:00 PM EDT [facility] Name Value Range Interpretation Code Description Data Bryanna rce(s) Supporting Document(s ) ABG PO2 18 mm[Hg] [facility] ID Date Data Source [id number] 11/20/2019 08:15:00 PM EDT [facility] Value Range Interpretation Code Description Data Bryanna rce(s) Supporting Document(s ) ABG PCO2 41 mm[Hg] [facility] ID Date Data Source [id number] 11/20/2019 08:15:00 PM EDT [facility] Value Range Interpretation Code Description Data Bryanna rce(s) Supporting Document(s ) ABG PH 7.27 [facility] ID Date Data Source [id number] 11/20/2019 08:15:00 PM EDT [facility] Value Range Interpretation Code Description Data Bryanna rce(s) Supporting Document(s ) JORGE TEST POSITIVE [facility] ID Date Data Source [id number] 11/20/2019 09:39:00 AM EDT [facility] Value Range Interpretation Description Data Sup porting Code Source(s) Document(s ) Leukocyte NEGATIVE [facility] esterase [facility] [Presence] in Urine by Test strip ID Date Data Source [id number] 11/20/2019 09:39:00 AM EDT [facility] Value Range Interpretation Description Data Sup porting Code Source(s) Document(s ) URINE NEGATIVE [facility] ID Date Data Source [id number] 11/20/2019 09:39:00 AM EDT [facility] Value Range Interpretation Description Data Sup porting Code Source(s) Document(s ) Erythrocytes NEGATIVE [facility] [#/volume] in Hospital Urine by Test strip ID Date Data Source [id number] 11/20/2019 09:39:00 AM EDT [facility] Name Value Range Interpretation Code Description Data Bryanna rce(s) Supporting Document(s ) Bilirubin. NEGATIVE [facility] total Hospital [Presence] in Urine by Test strip ID Date Data Source [id number] 11/20/2019 09:39:00 AM EDT [facility] Name Value Range Interpretation Description Data Sup porting Code Source(s) Document(s ) Urobilinogen 1.0 [facility] [Units/volume] mg/dL Hospital in Urine by Test strip ID Date Data Source [id number] 11/20/2019 09:39:00 AM EDT [facility] Value Range Interpretation Description Data Sup porting Code Source(s) Document(s ) Ketones NEGATIVE [facility] [Mass/volume Hospital ] in Urine by Test strip ID Date Data Source [id number] 11/20/2019 09:39:00 AM EDT [facility] Name Value Range Interpretation Code Description Data Bryanna rce(s) Supporting Document(s ) Glucose 3+ [facility] [Mass/volume Hospital ] in Urine by Test strip ID Date Data Source [id number] 11/20/2019 09:39:00 AM EDT [facility] Name Value Range Interpretation Description Data Sup porting Code Source(s) Document(s ) Protein NEGATIVE [facility] [Presence] Hospital in Urine by Test strip ID Date Data Source [id number] 11/20/2019 09:39:00 AM EDT [facility] Name Value Range Interpretation Code Description Data Bryanna rce(s) Supporting Document(s ) pH of Urine 6.0 [facility] by Test Hospital strip ID Date Data Source [id number] 11/20/2019 09:39:00 AM EDT [facility] Name Value Range Interpretation Code Description Data Supporting Source(s) Document(s ) Specific 1.029 [facility] gravity of Hospital Urine by Test strip ID Date Data Source [id number] 11/20/2019 09:39:00 AM [facility] Name Value Range Interpretation Description Data Sup porting Code Source(s) Document(s ) Clarity in Urine CLEAR [facility] by [facility] automated ID Date Data Source [id number] 11/20/2019 09:39:00 AM [facility] Name Value Range Interpretation Code Description Data Bryanna rce(s) Supporting Document(s ) Color of YELLOW [facility] Urine Hospital ID Date Data Source [id number] 10/26/2019 05:07:00 AM [facility] Name Value Range Interpretation Description Data Sup porting Code Source(s) Document(s ) Arthropoda NAIEX [facility] (B[facility] B[facility] Hospital ID Date Data Source [id number] 10/26/2019 03:50:00 AM [facility] TEST PERFORMED BY [employer] [facility] CHEMILUMINESCENCE METHOD. Name Value Range Interpretation Description Data Sup porting Code Source(s) Document(s ) Troponin < 0.01 [facility] I.cardiac ng/mL Hospital [Mass/volume ] in Serum or Plasma ID Date Data Source [id number] 10/26/2019 03:50:00 AM [facility] NOTIFICATION AND READ BACK OF CRITICAL R ESULTS TO OF AT 0441 ON 10/26/19 BY Jeri Iraheta.REPORTED CRITICAL VALUES SHOULD BE INTERPRETED WITHIN CLINICAL CONTEXT. Name Value Range Interpretation Description Data Sup porting Code Source(s) Document(s ) Ammonia 56 mmol/L [facility] [Moles/volum Hospital e] in Plasma ID Date Data Source [id number] 10/26/2019 03:50:00 AM EDT [facility] Name Value Range Interpretation Description Data Sup porting Code Source(s) Document(s ) Aspartate 136 U/L [facility] amin[facility] [Enzymatic Hospital activity/volume] in Serum or Plasma ID Date Data Source [id number] 10/26/2019 03:50:00 AM EDT [facility] Name Value Range Interpretation Description Data Sup porting Code Source(s) Document(s ) Alanine 48 U/L [facility] amin[facility] [Enzymatic Hospital activity/volume] in Serum or Plasma ID Date Data Source [id number] 10/26/2019 03:50:00 AM EDT [facility] Name Value Range Interpretation Description Data Sup porting Code Source(s) Document(s ) Alkaline 71 U/L [facility] Hospital [Enzymatic activity/volume ] in Serum or Plasma ID Date Data Source [id number] 10/[facility]2019 [facility] Interpretation Description Data Sup porting Code Source(s) Document(s ) Bilirubin.t 1.0 mg/dL [facility] [Mass/volum e] in Serum or Plasma ID Date Data Source [id number] 10/26/2019 03:50:[address] [facility] Value Range Interpretation Code Description Data Bryanna rce(s) Supporting Document(s ) [facility] in Serum or Plasma ID Date Data Source [id number] 10/26/2019 [facility] Value Range Interpretation Description Data Sup porting Code Source(s) Document(s ) Albumin 4.5 g/dL [facility] [Mass/volume Hospital ] in Serum or Plasma ID Date Data Source [id number] 10/26/2019 03:50:00 AM EDT [facility] Name Value Range Interpretation Description Data Sup porting Code Source(s) Document(s ) Protein 7.6 g/dL [facility] [Mass/volume Hospital ] in Serum or Plasma ID Date Data Source [id number] 10/26/2019 03:50:00 AM EDT [facility] Name Value Range Interpretation Description Data Sup porting Code Source(s) Document(s ) Calcium 8.8 mg/dL [facility] [Mass/volume Hospital ] in Serum or Plasma ID Date Data Source [id number] 10/26/2019 03:50:00 AM EDT [facility] Name Value Range Interpretation Code Description Data Bryanna rce(s) Supporting Document(s ) Urea 11.1 [facility] nitrogen/Cre Hospital atinine [Mass Ratio] in Serum or Plasma ID Date Data Source [id number] 10/26/2019 03:50:00 AM EDT [facility] Name Value Range Interpretation Description Data Sup porting Code Source(s) Document(s ) Creatinine 0.9 mg/dL [facility] [Mass/volume] Hospital in Serum or Plasma ID Date Data Source [id number] 10/26/2019 03:50:00 AM EDT [facility] Name Value Range Interpretation Description Data Sup porting Code Source(s) Document(s ) Urea 10 mg/dL [facility] nitrogen Hospital [Mass/volume ] in Serum or Plasma ID Date Data Source [id number] 10/26/2019 03:50:00 AM EDT [facility] Name Value Range Interpretation Description Data Sup porting Code Source(s) Document(s ) Carbon 26 mmol/L [facility] dioxide, Hospital total [Moles/volu me] in Serum or Plasma ID Date Data Source [id number] 10/26/2019 03:50:00 AM EDT [facility] Name Value Range Interpretation Description Data Sup porting Code Source(s) Document(s ) Chloride 99 mmol/L [facility] [Moles/volum Hospital e] in Serum or Plasma ID Date Data Source [id number] 10/26/2019 03:50:00 AM EDT [facility] GROSSLY HEMOLYSED Name Value Range Interpretation Description Data Sup porting Code Source(s) Document(s ) Potassium mmol/L [facility] [Moles/volume] Hospital in Serum or Plasma ID Date Data Source [id number] 10/26/2019 03:50:00 AM EDT [facility] Name Value Range Interpretation Description Data Sup porting Code Source(s) Document(s ) Sodium 132 mmol/L [facility] [Moles/volu Hospital me] in Serum or Plasma ID Date Data Source [id number] 10/26/2019 03:50:00 AM EDT [facility] Name Value Range Interpretation Description Data Sup porting Code Source(s) Document(s ) Glucose 247 mg/dL [facility] [Mass/volume Hospital ] in Serum or Plasma ID Date Data Source [id number] 10/26/2019 03:50:00 AM EDT [facility] Name Value Range Interpretation Code Description Data Supporting Source(s) Document(s ) NUCLEATED RBCS 0.0 % [place] (AUTO Hospital DIFF%)DIS ID Date Data Source [id number] 10/26/2019 03:50:00 AM EDT [facility] Name Value Range Interpretation Description Data Sup porting Code Source(s) Document(s ) Differential AUTOMATED [facility] cell count Hospital method - Blood ID Date Data Source [id number] 10/26/2019 03:50:00 AM EDT [facility] Name Value Range Interpretation Description Data Sup porting Code Source(s) Document(s ) Immature 0.01 [facility] granulocytes 10*3/uL Hospital [#/volume] in Blood by Automated count ID Date Data Source [id number] 10/26/2019 03:50:00 AM EDT [facility] Value Range Interpretation Description Data Sup porting Code Source(s) Document(s ) Basophils 0.04 [facility] [#/volume] in 10*3/uL Hospital Blood by Automated count ID Date Data Source [id number] 10/26/2019 03:50:00 AM EDT [facility] Value Range Interpretation Description Data Sup porting Code Source(s) Document(s ) Eosinophils 0.28 [facility] [#/volume] in 10*3/uL Hospital Blood by Automated count ID Date Data Source [id number] 10/26/2019 03:50:00 AM EDT [facility] Value Range Interpretation Description Data Sup porting Code Source(s) Document(s ) Monocytes 0.50 [facility] [#/volume] in 10*3/uL Hospital Blood by Automated count ID Date Data Source [id number] 10/26/2019 03:50:00 AM EDT [facility] Value Range Interpretation Description Data Sup porting Code Source(s) Document(s ) Lymphocytes 2.29 [facility] [#/volume] in 10*3/uL Hospital Blood by Automated count ID Date Data Source [id number] 10/26/2019 03:50:00 AM EDT [facility] Value Range Interpretation Description Data Sup porting Code Source(s) Document(s ) Neutrophils 1.54 [facility] [#/volume] in 10*3/uL Hospital Blood by Automated count ID Date Data Source [id number] 10/26/2019 03:50:00 AM EDT [facility] Value Range Interpretation Description Data Sup porting Code Source(s) Document(s ) Nucleated 0.0 % [facility] erythrocytes/10 Hospital 0 leukocytes [Ratio] in Blood by Automated count ID Date Data Source [id number] 10/26/2019 03:50:00 AM EDT [facility] Value Range Interpretation Description Data Sup porting Code Source(s) Document(s ) Immature 0.2 % [facility] granulocytes/10 Hospital 0 leukocytes in Blood by Automated count ID Date Data Source [id number] 10/26/2019 03:50:00 AM EDT [facility] Value Range Interpretation Description Data Sup porting Code Source(s) Document(s ) Basophils/100 0.9 % [facility] leukocytes in Hospital Blood by Automated count ID Date Data Source [id number] 10/26/2019 03:50:00 AM EDT [facility] Value Range Interpretation Description Data Sup porting Code Source(s) Document(s ) Eosinophils/100 6.0 % [facility] leukocytes in Hospital Blood by Automated count ID Date Data Source [id number] 10/26/2019 03:50:00 AM EDT [facility] Value Range Interpretation Description Data Sup porting Code Source(s) Document(s ) Monocytes/100 10.7 % [facility] leukocytes in Hospital Blood by Automated count ID Date Data Source [id number] 10/26/2019 03:50:00 AM EDT [facility] Value Range Interpretation Description Data Sup porting Code Source(s) Document(s ) Lymphocytes/10 49.1 % [facility] 0 leukocytes Hospital in Blood by Automated count ID Date Data Source [id number] 10/26/2019 03:50:00 AM EDT [facility] Name Value Range Interpretation Description Data Sup porting Code Source(s) Document(s ) Neutrophils/10 33.1 % [facility] 0 leukocytes Hospital in Blood by Automated count ID Date Data Source [id number] 10/26/2019 03:50:00 AM [facility] PLATELET CLUMPS NOTED ON PERIPHERAL SMEA R- PLT COUNT MAY NOT BE ACCURATE Name Value Range Interpretation Description Data Sup porting Code Source(s) Document(s ) Platelets 105 [place] [#/volume] in 10*3/uL Hospital Blood by Automated count ID Date Data Source [id number] 10/26/2019 03:50:00 AM [facility] Name Value Range Interpretation Description Data Sup porting Code Source(s) Document(s ) Erythrocyte 12.7 % [facility] width [Ratio] by Automated count ID Date Data Source [id number] 10/26/2019 03:50:00 AM [facility] Name Value Range Interpretation Description Data Sup porting Code Source(s) Document(s ) Erythrocyte mean 34.1 [facility] corpuscular g/dL Hospital hemoglobin concentration [Mass/volume] by Automated count ID Date Data Source [id number] 10/26/2019 03:50:00 AM [facility] Name Value Range Interpretation Description Data Sup porting Code Source(s) Document(s ) Erythrocyte 29.9 pg [facility] corpuscular hemoglobin [Entitic mass] by Automated count ID Date Data Source [id number] 10/26/2019 03:50:00 AM [facility] Name Value Range Interpretation Description Data Sup porting Code Source(s) Document(s ) Erythrocyte 87.4 fL [facility] corpuscular volume [Entitic volume] by Automated count ID Date Data Source [id number] 10/26/2019 03:50:[address] [facility] Value Range Interpretation Description Data Sup porting Code Source(s) Document(s ) Hematocrit 41.0 % [facility] [Volume Hospital Fraction] of Blood by Automated count ID Date Data Source [id number] [facility] Interpretation Description Data Sup porting Code Source(s) Document(s ) Hemoglobin 14.0 g/dL [facility] [Mass/volume] Hospital in Blood ID Date Data Source [id number] [facility] Interpretation Description Data Sup porting Code Source(s) Document(s ) Erythrocytes 4.69 [facility] [#/volume] in 10*6/uL Hospital Blood by Automated count ID Date Data Source [id number] 10/26/2019 03:50:00 AM [facility] Name Value Range Interpretation Description Data Sup porting Code Source(s) Document(s ) Leukocytes 4.7 [facility] [#/volume] in 10*3/uL Hospital Blood by Automated count ID Date Data Source [id number] 10/26/2019 02:33:00 AM [facility] Pediatric Allergist:DEIDRA CONDON Name Value Range Interpretation Description Data Sup porting Code Source(s) Document(s ) Glucose 230 mg/dL [facility] [Mass/volume] Hospital in Capillary blood by Glucometer ID Date Data Source [id number] 06/21/2019 01:10:00 PM [facility] Pediatric Allergist:LISSA PINO Name Value Range Interpretation Description Data Sup porting Code Source(s) Document(s ) Glucose 366 mg/dL [facility] [Mass/volume] Hospital in Capillary blood by Glucometer ID Date Data Source [id number] 06/21/2019 06:41:00 AM [facility] Name Value Range Interpretation Code Description Data Bryanna rce(s) Supporting Document(s ) Urea 8.3 [facility] nitrogen/Cre Hospital atinine [Mass Ratio] in Serum or Plasma ID Date Data Source [id number] 06/21/2019 06:41:00 AM EDT [facility] Name Value Range Interpretation Description Data Sup porting Code Source(s) Document(s ) Creatinine 0.6 mg/dL [facility] [Mass/volume] Hospital in Serum or Plasma ID Date Data Source [id number] 06/21/2019 06:41:00 AM EDT [facility] Name Value Range Interpretation Description Data Sup porting Code Source(s) Document(s ) Urea nitrogen 5 mg/dL [facility] [Mass/volume] Hospital in Serum or Plasma ID Date Data Source [id number] 06/[facility] Interpretation Code Description Data Bryanna rce(s) Supporting Document(s ) Anion gap in 7 [facility] Serum or [facility] Plasma ID Date Data Source [id number] 06/21/2019 06:41:00 AM EDT [facility] Value Range Interpretation Description Data Sup porting Code Source(s) Document(s ) Carbon 30 mmol/L [facility] dioxide, Hospital total [Moles/volu me] in Serum or Plasma ID Date Data Source [id number] 06/21/2019 06:41:00 AM EDT [facility] Name Value Range Interpretation Description Data Sup porting Code Source(s) Document(s ) Chloride 108 [facility] [Moles/volum mmol/L Hospital e] in Serum or Plasma ID Date Data Source [id number] 06/21/2019 06:41:00 AM EDT [facility] Value Range Interpretation Description Data Sup porting Code Source(s) Document(s ) Potassium 3.6 [facility] [Moles/volume mmol/L Hospital ] in Serum or Plasma ID Date Data Source [id number] 06/21/2019 06:41:00 AM EDT [facility] Value Range Interpretation Description Data Sup porting Code Source(s) Document(s ) Sodium 141 mmol/L [facility] [Moles/volu [facility]] in Serum or Plasma ID Date Data Source [id number] 06/21/2019 [facility] Range Interpretation Description Data Sup porting Code Source(s) Document(s ) Glucose 161 mg/dL [facility] [Mass/volume Hospital ] in Serum or Plasma ID Date Data Source [id number] 06/21/2019 [facility] Value Range Interpretation Code Description Data Supporting Source(s) Document(s ) NUCLEATED RBCS 0.0 % [facility] (AUTO Hospital DIFF%)DIS ID Date Data Source [id number] 06/21/2019 [facility]:41[facility] Value Range Interpretation Description Data Sup porting Code Source(s) Document(s ) Differential AUTOMATED [facility] cell count [facility] method - Blood ID Date Data Source [id number] 06/21/2019 [facility]:41[facility] Value Range Interpretation Description Data Sup porting Code Source(s) Document(s ) Immature 0.01 [facility] granulocytes 10*3/uL Hospital [#/volume] in Blood by Automated count ID Date Data Source [id number] 06/21/2019 [facility] Value Range Interpretation Description Data Sup porting Code Source(s) Document(s ) Basophils 0.05 [facility] [#/volume] in 10*3/uL Hospital Blood by Automated count ID Date Data Source [id number] 06/21/2019 06:41:[facility] Value Range Interpretation Description Data Sup porting Code Source(s) Document(s ) Eosinophils 0.29 [facility] [#/volume] in 10*3/uL Hospital Blood by Automated count ID Date Data Source [id number] 06/21/2019 06:41:00 AM EDT [facility] Name Value Range Interpretation Description Data Sup porting Code Source(s) Document(s ) Monocytes 0.42 [facility] [#/volume] in 10*3/uL Hospital Blood by Automated count ID Date Data Source [id number] 06/21/2019 06:41:00 AM EDT [facility] Value Range Interpretation Description Data Sup porting Code Source(s) Document(s ) Lymphocytes 2.71 [facility] [#/volume] in 10*3/uL Hospital Blood by Automated count ID Date Data Source [id number] 06/21/2019 06:41:00 AM EDT [facility] Value Range Interpretation Description Data Sup porting Code Source(s) Document(s ) Neutrophils 0.99 [facility] [#/volume] in 10*3/uL Hospital Blood by Automated count ID Date Data Source [id number] 06/21/2019 06:41:00 AM EDT [facility] Value Range Interpretation Description Data Sup porting Code Source(s) Document(s ) Nucleated 0.0 % [facility] erythrocytes/10 Hospital 0 leukocytes [Ratio] in Blood by Automated count ID Date Data Source [id number] 06/21/2019 06:41:00 AM EDT [facility] Value Range Interpretation Description Data Sup porting Code Source(s) Document(s ) Immature 0.2 % [facility] granulocytes/10 Hospital 0 leukocytes in Blood by Automated count ID Date Data Source [id number] 06/21/2019 06:41:00 AM EDT [facility] Value Range Interpretation Description Data Sup porting Code Source(s) Document(s ) Basophils/100 1.1 % [facility] leukocytes in Hospital Blood by Automated count ID Date Data Source [id number] 06/21/2019 06:41:00 AM EDT [facility] Name Value Range Interpretation Description Data Sup porting Code Source(s) Document(s ) Eosinophils/100 6.5 % [facility] leukocytes in Hospital Blood by Automated count ID Date Data Source [id number] 06/21/2019 06:41:00 AM EDT [facility] Name Value Range Interpretation Description Data Sup porting Code Source(s) Document(s ) Monocytes/100 9.4 % [facility] leukocytes in Hospital Blood by Automated count ID Date Data Source [id number] 06/21/2019 06:41:00 AM EDT [facility] Value Range Interpretation Description Data Sup porting Code Source(s) Document(s ) Lymphocytes/10 60.6 % [facility] 0 leukocytes Hospital in Blood by Automated count ID Date Data Source [id number] 06/21/2019 06:41:00 AM EDT [facility] Value Range Interpretation Description Data Sup porting Code Source(s) Document(s ) Neutrophils/10 22.2 % [facility] 0 leukocytes Hospital in Blood by Automated count ID Date Data Source [id number] 06/21/2019 06:41:00 AM EDT [facility] Value Range Interpretation Description Data Sup porting Code Source(s) Document(s ) Platelet mean 13.0 fL [facility] volume Hospital [Entitic volume] in Blood by Automated count ID Date Data Source [id number] 06/21/2019 06:41:00 AM EDT [facility] Name Value Range Interpretation Description Data Sup porting Code Source(s) Document(s ) Platelets 132 [facility] [#/volume] in 10*3/uL Hospital Blood by Automated count ID Date Data Source [id number] 06/21/2019 06:41:[address] [facility] Value Range Interpretation Description Data Sup porting Code Source(s) Document(s ) Erythrocyte 14.6 % [facility] width [Ratio] by Automated count ID Date Data Source [id number] 06/21/2019 [facility] Value Range Interpretation Description Data Sup porting Code Source(s) Document(s ) Erythrocyte mean 34.9 [place] corpuscular g/dL [facility] hemoglobin concentration [Mass/volume] by Automated count ID Date Data Source [id number] 06/21/2019 06:41:[address] [facility] Value Range Interpretation Description Data Sup porting Code Source(s) Document(s ) Erythrocyte 29.0 pg [facility] corpuscular hemoglobin [Entitic mass] by Automated count ID Date Data Source [id number] 06/21/2019 06:41:[address] [facility] Value Range Interpretation Description Data Sup porting Code Source(s) Document(s ) Erythrocyte 83.0 fL [facility] corpuscular volume [Entitic volume] by Automated count ID Date Data Source [id number] 06/21/2019 06:41:[address] [facility] Value Range Interpretation Description Data Sup porting Code Source(s) Document(s ) Hematocrit 33.8 % [facility] [Volume Hospital Fraction] of Blood by Automated count ID Date Data Source [id number] 06/21/2019 06:41:[address] [facility] Value Range Interpretation Description Data Sup porting Code Source(s) Document(s ) Hemoglobin 11.8 g/dL [facility] [Mass/volume] Hospital in Blood ID Date Data Source [id number] 06/21/2019 06:41:00 AM [facility] Name Value Range Interpretation Description Data Sup porting Code Source(s) Document(s ) Erythrocytes 4.07 [facility] [#/volume] in 10*6/uL Hospital Blood by Automated count ID Date Data Source [id number] 06/21/2019 06:41:00 AM [facility] Name Value Range Interpretation Description Data Sup porting Code Source(s) Document(s ) Leukocytes 4.5 [facility] [#/volume] in 10*3/uL Hospital Blood by Automated count ID Date Data Source [id number] 06/21/2019 06:41:00 AM [facility] NOTIFICATION AND READ BACK OF CRITICAL R ESULTS TO MARU PINO RN 5E AT 0824 ON 06/21/19 BY Jessica Quinteros.REPORTED CR ITICAL VALUES SHOULD BE INTERPRETED WITHIN CLINICAL CONTEXT. Name Value Range Interpretation Description Data Sup porting Code Source(s) Document(s ) Ammonia 83 mmol/L [facility] [Moles/volum Hospital e] in Plasma ID Date Data Source [id number] 06/21/2019 06:41:00 AM [facility] Name Value Range Interpretation Description Data Sup porting Code Source(s) Document(s ) Aspartate 52 U/L [facility] aminotransferase [facility] [Enzymatic Hospital activity/volume] in Serum or Plasma ID Date Data Source [id number] 06/21/2019 06:41:00 AM [facility] Name Value Range Interpretation Description Data Sup porting Code Source(s) Document(s ) Alanine 30 U/L [facility] aminotransferase [facility] [Enzymatic Hospital activity/volume] in Serum or Plasma ID Date Data Source [id number] 06/21/2019 06:41:00 AM [facility] Name Value Range Interpretation Description Data Sup porting Code Source(s) Document(s ) Alkaline 72 U/L [facility] phosphatase Hospital [Enzymatic activity/volume ] in Serum or Plasma ID Date Data Source [id number] 06/21/2019 06:41:00 AM EDT [facility] Name Value Range Interpretation Description Data Sup porting Code Source(s) Document(s ) Bilirubin.t 1.3 mg/dL [facility] [Mass/volum e] in Serum or Plasma ID Date Data Source [id number] 06/21/2019 06:41:00 AM EDT [facility] Value Range Interpretation Code Description Data Bryanna rce(s) Supporting Document(s ) Albumin/Glob 1.1 [facility] [Mass Hospital Ratio] in Serum or Plasma ID Date Data Source [id number] 06/21/2019 06:41:00 AM EDT [facility] Value Range Interpretation Description Data Sup porting Code Source(s) Document(s ) Albumin 2.7 g/dL [facility] [Mass/volume Hospital ] in Serum or Plasma ID Date Data Source [id number] 06/21/2019 06:41:00 AM EDT [facility] Value Range Interpretation Description Data Sup porting Code Source(s) Document(s ) Protein 5.2 g/dL [facility] [Mass/volume Hospital ] in Serum or Plasma ID Date Data Source [id number] 06/21/2019 06:41:00 AM EDT [facility] Name Value Range Interpretation Description Data Sup porting Code Source(s) Document(s ) Calcium 7.9 mg/dL [facility] [Mass/volume Hospital ] in Serum or Plasma ID Date Data Source [id number] 06/19/2019 08:19:00 AM EST [facility] Value Range Interpretation Description Data Sup porting Code Source(s) Document(s ) Magnesium 1.7 mg/dL [facility] [Mass/volume] Hospital in Serum or Plasma ID Date Data Source [id number] 06/17/2019 11:38:00 PM EST [facility] Name Value Range Interpretation Description Data Sup porting Code Source(s) Document(s ) Lactate 1.9 [facility] [Moles/volum mmol/L Hospital e] in Serum or Plasma ID Date Data Source [id number] 06/17/2019 08:02:00 PM EST [facility] Value Range Interpretation Code Description Data Bryanna rce(s) Supporting Document(s ) ABG TEMP 98.0 [facility] ID Date Data Source [id number] 06/17/2019 08:02:00 PM EST [facility] Value Range Interpretation Code Description Data Bryanna rce(s) Supporting Document(s ) FIO2 21 [facility] ID Date Data Source [id number] 06/17/2019 08:02:00 PM EST [facility] Value Range Interpretation Code Description Data Bryanna rce(s) Supporting Document(s ) ABG BE -6.0 [facility] ID Date Data Source [id number] 06/17/2019 08:02:00 PM EST [facility] Value Range Interpretation Code Description Data Bryanna rce(s) Supporting Document(s ) ABG O2SAT 96 % [facility] ID Date Data Source [id number] 06/17/2019 08:02:00 PM EST [facility] Value Range Interpretation Code Description Data Bryanna rce(s) Supporting Document(s ) ABG HCO3 19 meq/L [facility] ID Date Data Source [id number] 06/17/2019 08:02:00 PM EST [facility] Name Value Range Interpretation Code Description Data Bryanna rce(s) Supporting Document(s ) ABG PO2 86 mm[Hg] [facility] ID Date Data Source [id number] 06/17/2019 08:02:00 PM EST [facility] Name Value Range Interpretation Code Description Data Bryanna rce(s) Supporting Document(s ) ABG PCO2 35 mm[Hg] [facility] ID Date Data Source [id number] 06/17/2019 08:02:00 PM [facility] Name Value Range Interpretation Code Description Data Bryanna rce(s) Supporting Document(s ) ABG PH 7.36 U [facility] ID Date Data Source [id number] 06/17/2019 08:02:00 PM [facility] Name Value Range Interpretation Code Description Data Bryanna rce(s) Supporting Document(s ) ABG MODE RA [facility] ID Date Data Source [id number] 06/17/2019 08:02:00 PM [facility] Name Value Range Interpretation Code Description Data Bryanna rce(s) Supporting Document(s ) ABG SITE RR [facility] ID Date Data Source [id number] 06/17/2019 08:02:00 PM [facility] Name Value Range Interpretation Code Description Data Supporting Source(s) Document(s ) ABG SOURCE ARTERIAL [facility] ID Date Data Source [id number] 06/17/2019 08:02:00 PM [facility] Name Value Range Interpretation Code Description Data Bryanna rce(s) Supporting Document(s ) JORGE TEST POSITIVE [facility] ID Date Data Source [id number] 06/17/2019 07:59:00 PM [facility] TEST PERFORMED BY [employer] ULTRA SENSITIVE [facility]AUR CHEMILUMINESCENCE METHOD. Name Value Range Interpretation Description Data Sup porting Code Source(s) Document(s ) Troponin 0.02 [facility] I.cardiac ng/mL Hospital [Mass/volume ] in Serum or Plasma ID Date Data Source [id number] 06/17/2019 07:59:00 PM EST [facility] Name Value Range Interpretation Description Data Sup porting Code Source(s) Document(s ) Leukocyte NEGATIVE [facility] esterase Hospital [Presence] in Urine by Test strip ID Date Data Source [id number] 06/17/2019 07:59:00 PM [facility] Name Value Range Interpretation Description Data Sup porting Code Source(s) Document(s ) URINE NEGATIVE [facility] NITRITES Hospital ID Date Data Source [id number] 06/17/2019 07:59:00 PM EST [facility] Name Value Range Interpretation Description Data Sup porting Code Source(s) Document(s ) Erythrocytes NEGATIVE [facility] [#/volume] in Hospital Urine by Test strip ID Date Data Source [id number] 06/17/2019 07:59:00 PM EST [facility] Name Value Range Interpretation Code Description Data Bryanna rce(s) Supporting Document(s ) Bilirubin. NEGATIVE [facility] [Presence] in Urine by Test strip ID Date Data Source [id number] 06/17/2019 07:59:00 PM [facility] Name Value Range Interpretation Description Data Sup porting Code Source(s) Document(s ) Urobilinogen 0.2 [facility] [Units/volume] mg/dL Hospital in Urine by Test strip ID Date Data Source [id number] 06/17/2019 07:59:00 PM EST [facility] Name Value Range Interpretation Code Description Data Bryanna rce(s) Supporting Document(s ) Ketones 4+ [facility] [Mass[facility]volume Hospital ] in Urine by Test strip ID Date Data Source [id number] 06/17/2019 07:59:00 PM EST [facility] Name Value Range Interpretation Code Description Data Bryanna rce(s) Supporting Document(s ) Glucose 3+ [facility] [[facility] ] in Urine by Test strip ID Date Data Source [id number] 06/17/2019 07:59:00 PM EST [facility] Name Value Range Interpretation Description Data Sup porting Code Source(s) Document(s ) Protein NEGATIVE [facility] [Presence] [facility] in Urine by Test strip ID Date Data Source [id number] 06/17/2019 07:59:00 PM EST [facility] Name Value Range Interpretation Code Description Data Bryanna rce(s) Supporting Document(s ) pH of Urine 5.5 [facility] by Test Hospital strip ID Date Data Source [id number] 06/17/2019 07:59:00 PM EST [facility] Name Value Range Interpretation Code Description Data Supporting Source(s) Document(s ) Specific 1.044 [facility] gravity of Hospital Urine by Test strip ID Date Data Source [id number] 06/17/2019 07:59:00 PM EST [facility] Name Value Range Interpretation Description Data Sup porting Code Source(s) Document(s ) Clarity in Urine CLEAR [facility] by [facility] automated ID Date Data Source [id number] 06/17/2019 07:59:00 PM EST [facility] Name Value Range Interpretation Code Description Data Bryanna rce(s) Supporting Document(s ) Color of YELLOW [facility] Urine Hospital ID Date Data Source [id number] 06/17/2019 07:59:00 PM [facility] THERAPEUTIC RANGES:UNFRACTIONATED HEPARI N THERAPY: 60-90 SECONDSARGATROBAN THERAPY: 49-99 SECONDS Name Value Range Interpretation Description Data Sup porting Code Source(s) Document(s ) aPTT in 35.5 s [facility] Platelet poor [facility] plasma by Coagulation assay ID Date Data Source [id number] 06/17/2019 07:59:00 PM [facility] THERAPEUTIC RANGE FOR STANDARD ORALANTIC OAGULANT THERAPY: 2.0-3.0THERAPEUTIC RANGE FOR HIGH DOSE ORALANTICOAGULANT THERAPY (MECHANICAL HEARTVALVE REPLACEMENT): 2.5-3.5 Name Value Range Interpretation Description Data Sup porting Code Source(s) Document(s ) INR in Platelet 1.0 [facility] poor plasma by Hospital Coagulation assay ID Date Data Source [id number] 06/17/2019 07:59:00 PM [facility] Name Value Range Interpretation Description Data Sup porting Code Source(s) Document(s ) PT panel - 10.9 s [facility] Platelet poor [facility] plasma by Coagulation assay ID Date Data Source [id number] 06/17/2019 07:30:00 PM [facility] Name Value Range Interpretation Description Data Sup porting Code Source(s) Document(s ) Bacteria No growth [facility] identified in Hospital Blood by Culture ID Date Data Source [id number] 06/17/2019 07:01:00 PM [facility] Name Value Range Interpretation Description Data Sup porting Code Source(s) Document(s ) GLUCOSE RN Notified [facility] COMMENT Hospital ID Date Data Source [id number] 05/28/2019 11:42:00 AM EST [facility] Name Value Range Interpretation Description Data Sup porting Code Source(s) Document(s ) GLUCOSE MD Notified [place] [address] Hospital ID Date Data Source [id number] 05/28/2019 11:42:00 AM EST [facility] Name Value Range Interpretation Description Data Sup porting Code Source(s) Document(s ) GLUCOSE MD Notified [facility] COMMENT2 Hospital ID Date Data Source [id number] 05/28/2019 11:42:00 AM [facility] Name Value Range Interpretation Description Data Sup porting Code Source(s) Document(s ) GLUCOSE To Be [facility] COMMENT Repeated Hospital ID Date Data Source [id number] 05/28/2019 11:42:00 AM [facility] Pediatric Allergist:JEB WASHBURN Name Value Range Interpretation Description Data Sup porting Code Source(s) Document(s ) Glucose 419 mg/dL [facility] [Mass/volume] Hospital in Capillary blood by Glucometer ID Date Data Source [id number] 05/26/2019 09:58:00 AM [facility] ADA RECOMMENDATIONS: NON-DIABETES: 4.0-6.0% CONTROLLED DIABETES: 6.0-8.0% UNCONTROLLED DIABETE S: UP TO 20%RECOMMENDED ADA RESULT FOR THERAPY: HEMOGLOBIN A1C RESULT LESS GM N 7%.NOTE: METHOD CHANGE EFFECTIVE 11/11/14. Name Value Range Interpretation Description Data Sup porting Code Source(s) Document(s ) Hemoglobin 10.7 % [facility] A1c/Hemoglobin Hospital .total in Blood ID Date Data Source [id number] 05/26/2019 09:58:00 AM [facility] Name Value Range Interpretation Description Data Sup porting Code Source(s) Document(s ) Phosphate 3.6 mg/dL [facility] [Mass/volume] Hospital in Serum or Plasma ID Date Data Source [id number] 05/26/2019 09:58:00 AM [facility] ADA RECOMMENDATIONS: NON-DIABETES: 4.0-6.0% CONTROLLED DIABETES: 6.0-8.0% UNCONTROLLED DIABETE S: UP TO 20%RECOMMENDED ADA RESULT FOR THERAPY: HEMOGLOBIN A1C RESULT LESS GM N 7%.NOTE: METHOD CHANGE EFFECTIVE 11/11/14. Name Value Range Interpretation Description Data Sup porting Code Source(s) Document(s ) Hemoglobin 10.7 % [facility] A1c/Hemoglobin Hospital .total in Blood ID Date Data Source [id number] 05/26/2019 09:58:00 AM [facility] Name Value Range Interpretation Description Data Sup porting Code Source(s) Document(s ) Phosphate 3.6 mg/dL [facility] [Mass/volume] Hospital in Serum or Plasma ID Date Data Source [id number] 05/26/2019 09:58:00 AM [facility] Name Value Range Interpretation Description Data Sup porting Code Source(s) Document(s ) Magnesium 1.8 mg/dL [facility] [Mass/volume] Hospital in Serum or Plasma ID Date Data Source [id number] 05/26/2019 09:58:00 AM [facility] Name Value Range Interpretation Description Data Sup porting Code Source(s) Document(s ) Calcium 8.1 mg/dL [facility] [Mass[facility]volume [facility] ] in Serum or Plasma ID Date Data Source [id number] 05/26/2019 09:58:00 AM [facility] Name Value Range Interpretation Code Description Data Bryanna rce(s) Supporting Document(s ) Urea 17.1 [facility] nitrogen/Cre Hospital atinine [Mass Ratio] in Serum or Plasma ID Date Data Source [id number] 05/26/2019 09:58:00 AM [facility] Name Value Range Interpretation Description Data Sup porting Code Source(s) Document(s ) Creatinine 0.7 mg/dL [facility] [Mass/volume] Hospital in Serum or Plasma ID Date Data Source [id number] 05/26/2019 09:58:00 AM [facility] Name Value Range Interpretation Description Data Sup porting Code Source(s) Document(s ) Urea 12 mg/dL [facility] nitrogen [facility] [Mass/volume ] in Serum or Plasma ID Date Data Source [id number] 05/26/2019 09:58:00 AM EST [facility] Name Value Range Interpretation Code Description Data Bryanna rce(s) Supporting Document(s ) Anion gap in 11 [facility] Serum or [facility] Plasma ID Date Data Source [id number] 05/26/2019 09:58:00 AM EST [facility] Name Value Range Interpretation Description Data Sup porting Code Source(s) Document(s ) Carbon 24 mmol/L [facility] dioxide, Hospital total [Moles/volu me] in Serum or Plasma ID Date Data Source [id number] 05/26/2019 09:58:00 AM EST [facility] Name Value Range Interpretation Description Data Sup porting Code Source(s) Document(s ) Chloride 109 [facility] [Moles/volum mmol/L Hospital e] in Serum or Plasma ID Date Data Source [id number] 05/26/2019 09:58:00 AM EST [facility] Name Value Range Interpretation Description Data Sup porting Code Source(s) Document(s ) Potassium 3.8 [facility] [Moles/volume mmol/L Hospital ] in Serum or Plasma ID Date Data Source [id number] 05/26/2019 09:58:00 AM EST [facility] Name Value Range Interpretation Description Data Sup porting Code Source(s) Document(s ) Sodium 140 mmol/L [facility] [Moles/volu Hospital me] in Serum or Plasma ID Date Data Source [id number] 05/26/2019 09:58:00 AM EST [facility] Name Value Range Interpretation Description Data Sup porting Code Source(s) Document(s ) Glucose 313 mg/dL [facility] [Mass/volume Hospital ] in Serum or Plasma ID Date Data Source [id number] 05/26/2019 09:58:00 AM EST [facility] Name Value Range Interpretation Code Description Data Supporting Source(s) Document(s ) NUCLEATED RBCS 0.0 % [facility] (AUTO Hospital DIFF%)DIS ID Date Data Source [id number] 05/26/2019 09:58:00 AM EST [facility] Name Value Range Interpretation Description Data Sup porting Code Source(s) Document(s ) Differential AUTOMATED [facility] cell count Hospital method - Blood ID Date Data Source [id number] 05/26/2019 09:58:00 AM EST [facility] Name Value Range Interpretation Description Data Sup porting Code Source(s) Document(s ) Immature 0.02 [facility] granulocytes 10*3/uL Hospital [#/volume] in Blood by Automated count ID Date Data Source [id number] 05/26/2019 09:58:00 AM EST [facility] Name Value Range Interpretation Description Data Sup porting Code Source(s) Document(s ) Basophils 0.04 [facility] [#/volume] in 10*3/uL Hospital Blood by Automated count ID Date Data Source [id number] 05/26/2019 09:58:00 AM EST [facility] Name Value Range Interpretation Description Data Sup porting Code Source(s) Document(s ) Eosinophils 0.16 [facility] [#/volume] in 10*3/uL Hospital Blood by Automated count ID Date Data Source [id number] 05/26/2019 09:58:00 AM EST [facility] Name Value Range Interpretation Description Data Sup porting Code Source(s) Document(s ) Monocytes 0.65 [facility] [#/volume] in 10*3/uL Hospital Blood by Automated count ID Date Data Source [id number] 05/26/2019 09:58:[address] [facility] Value Range Interpretation Description Data Sup porting Code Source(s) Document(s ) Lymphocytes 1.90 [facility] [#/volume] in 10*3/uL Hospital Blood by Automated count ID Date Data Source [id number] 05/26/2019 09:58:[address] [facility] Value Range Interpretation Description Data Sup porting Code Source(s) Document(s ) Neutrophils 1.71 [facility] [#/volume] in 10*3/uL [facility] Blood by Automated count ID Date Data Source [id number] 05/26/2019 09:58:[address] [facility] Value Range Interpretation Description Data Sup porting Code Source(s) Document(s ) Nucleated 0.0 % [facility] erythrocytes/10 Hospital 0 leukocytes [Ratio] in Blood by Automated count ID Date Data Source [id number] 05/26/2019 09:58:[address] [facility] Value Range Interpretation Description Data Sup porting Code Source(s) Document(s ) Immature 0.4 % [facility] granulocytes/10 Hospital 0 leukocytes in Blood by Automated count ID Date Data Source [id number] 05/26/2019 09:58:[address] [facility] Value Range Interpretation Description Data Sup porting Code Source(s) Document(s ) Basophils/100 0.9 % [facility] leukocytes in Hospital Blood by Automated count ID Date Data Source [id number] 05/26/2019 09:58:[address] [facility] Value Range Interpretation Description Data Sup porting Code Source(s) Document(s ) Eosinophils/100 3.6 % [facility] leukocytes in Hospital Blood by Automated count ID Date Data Source [id number] 05/26/2019 09:58:[address] [facility] Value Range Interpretation Description Data Sup porting Code Source(s) Document(s ) Monocytes/100 14.5 % [facility] leukocytes in Hospital Blood by Automated count ID Date Data Source [id number] 05/26/2019 09:58:00 AM [facility] Name Value Range Interpretation Description Data Sup porting Code Source(s) Document(s ) Lymphocytes/10 42.4 % [facility] 0 leukocytes Hospital in Blood by Automated count ID Date Data Source [id number] 05/26/2019 09:58:00 AM [facility] Name Value Range Interpretation Description Data Sup porting Code Source(s) Document(s ) Neutrophils/10 38.2 % [facility] 0 leukocytes Hospital in Blood by Automated count ID Date Data Source [id number] 05/26/2019 09:58:[address] [facility] Value Range Interpretation Description Data Sup porting Code Source(s) Document(s ) Platelet mean 12.1 fL [facility] volume Hospital [Entitic volume] in Blood by Automated count ID Date Data Source [id number] 05/26/2019 09:58:[address] [facility] Value Range Interpretation Description Data Sup porting Code Source(s) Document(s ) Platelets 198 [facility] [#/volume] in 10*3/uL Hospital Blood by Automated count ID Date Data Source [id number] 05/26/2019 09:58:[address] [facility] Value Range Interpretation Description Data Sup porting Code Source(s) Document(s ) Erythrocyte 14.1 % [facility] distribution Hospital width [Ratio] by Automated count ID Date Data Source [id number] 05/26/2019 09:58:00 AM [facility] Name Value Range Interpretation Description Data Sup porting Code Source(s) Document(s ) Erythrocyte mean 32.8 [facility] corpuscular g/dL Hospital hemoglobin concentration [Mass/volume] by Automated count ID Date Data Source [id number] 05/26/2019 09:58:[address] [facility] Value Range Interpretation Description Data Sup porting Code Source(s) Document(s ) Erythrocyte 28.8 pg [facility] corpuscular hemoglobin [Entitic mass] by Automated count ID Date Data Source [id number] 05/26/2019 09:58:[address] [facility] Value Range Interpretation Description Data Sup porting Code Source(s) Document(s ) Erythrocyte 88.0 fL [facility] mean Hospital corpuscular volume [Entitic volume] by Automated count ID Date Data Source [id number] 05/26/2019 09:58:[address] [facility] Value Range Interpretation Description Data Sup porting Code Source(s) Document(s ) Hematocrit 35.1 % [facility] [Volume Hospital Fraction] of Blood by Automated count ID Date Data Source [id number] 05/26/2019 09:58:[address] [facility] Value Range Interpretation Description Data Sup porting Code Source(s) Document(s ) Hemoglobin 11.5 g/dL [facility] [Mass/volume] Hospital in Blood ID Date Data Source [id number] 05/26/2019 09:58:[address] [facility] Value Range Interpretation Description Data Sup porting Code Source(s) Document(s ) Erythrocytes 3.99 [facility] [#/volume] in 10*6/uL Hospital Blood by Automated count ID Date Data Source [id number] 05/26/2019 09:58:[address] [facility] Value Range Interpretation Description Data Sup porting Code Source(s) Document(s ) Leukocytes 4.5 [facility] [#/volume] in 10*3/uL Hospital Blood by Automated count ID Date Data Source [id number] 05/26/2019 12:00:00 AM [facility] TEST PERFORMED BY [employer] UL[facility] SENSITIVE [facility] CHEMILUMINESCENCE METHOD. Name Value Range Interpretation Description Data Sup porting Code Source(s) Document(s ) Troponin 0.01 [facility] I.cardiac ng/mL Hospital [Mass/volume ] in Serum or Plasma ID Date Data Source [id number] 05/26/2019 12:00:00 AM [facility] Name Value Range Interpretation Description Data Sup porting Code Source(s) Document(s ) Lactate 1.0 [facility] [Moles/volum mmol/L Hospital e] in Serum or Plasma ID Date Data Source [id number] 05/25/2019 09:33:00 PM [facility] CUT-OFF >= 25 NG/ML.THE FINDINGS OF THE URINE DRUG SCREEN ARE USED SOLELY FOR PATIENT MANAGEMENT AND GUIDANCE. THE RESULTS FREEDOM ULD NOT BE USED FOR FORENSIC PURPOSE. ANY CLINICALLY UNSUSPECTED POSITIVE DRUG SCR EEN CAN BE CONFIRMED BY CALLING THE LABORATORY 3 DAYS WITHIN RECEIPT OF REPO RT. Name Value Range Interpretation Code Description Data Bryanna rce(s) Supporting Document(s ) PCP (UR) NEGATIVE [facility] ID Date Data Source [id number] 05/25/2019 09:33:00 PM [facility] CUT-OFF >= 50 NG/ML. Name Value Range Interpretation Code Description Data Bryanna rce(s) Supporting Document(s ) THC (UR) NEGATIVE [facility] ID Date Data Source [id number] 05/25/2019 09:33:00 PM [facility] CUT-OFF >= 300 NG/ML. Name Value Range Interpretation Description Data Sup porting Code Source(s) Document(s ) OPIATES (UR) NEGATIVE [facility] ID Date Data Source [id number] 05/25/2019 09:33:00 PM [facility] CUT-OFF >= 300 NG/ML. Name Value Range Interpretation Description Data Sup porting Code Source(s) Document(s ) COCAINE (UR) NEGATIVE [facility] ID Date Data Source [id number] 05/25/2019 09:33:00 PM [facility] CUT-OFF >= 200 NG/ML. Name Value Range Interpretation Description Data Sup porting Code Source(s) Document(s ) BENZODIAZEPINES NEGATIVE [facility] (UR) [facility] ID Date Data Source [id number] 05/25/2019 09:33:00 PM [facility] CUT-OFF >= 200 NG/ML. Name Value Range Interpretation Description Data Sup porting Code Source(s) Document(s ) BARBITURATES NEGATIVE [facility] (UR) Hospital ID Date Data Source [id number] 05/25/2019 09:33:00 PM [facility] CUT-OFF >= 1000 NG/ML. Name Value Range Interpretation Description Data Sup porting Code Source(s) Document(s ) AMPHETAMINES NEGATIVE [facility] (UR) Hospital ID Date Data Source [id number] 05/25/2019 09:33:00 PM [facility] Name Value Range Interpretation Description Data Sup porting Code Source(s) Document(s ) Mucus PRESENT [facility] [Presence] in Hospital Urine sediment by Light microscopy ID Date Data Source [id number] 05/25/2019 09:33:00 PM [facility] Name Value Range Interpretation Description Data Sup porting Code Source(s) Document(s ) Epithelial 2+ [facility] cells.squamous Hospital [#/area] in Urine sediment by Microscopy high power field ID Date Data Source [id number] 05/25/2019 09:33:00 PM [facility] Name Value Range Interpretation Description Data Sup porting Code Source(s) Document(s ) Bacteria OCCASIONAL [facility] [#/area] in Hospital Urine sediment by Microscopy high power field ID Date Data Source [id number] 05/25/2019 09:33:00 PM [facility] Name Value Range Interpretation Description Data Sup porting Code Source(s) Document(s ) Erythrocytes 0-3 [facility] [#/area] in /[HPF] Hospital Urine sediment by Microscopy high power field ID Date Data Source [id number] 05/25/2019 09:33:00 PM [facility] Name Value Range Interpretation Description Data Sup porting Code Source(s) Document(s ) Leukocytes 3-5 [facility] [#/area] in /[HPF] Hospital Urine sediment by Microscopy high power field ID Date Data Source [id number] 05/25/2019 09:33:00 PM [facility] CUT-OFF >= 25 NG/ML.THE FINDINGS OF THE URINE DRUG SCREEN ARE USED SOLELY FOR PATIENT MANAGEMENT AND GUIDANCE. THE RESULTS [facility] ULD NOT BE USED FOR FORENSIC PURPOSE. ANY CLINICALLY UNSUSPECTED POSITIVE DRUG SCR EEN CAN BE CONFIRMED BY CALLING THE LABORATORY 3 DAYS WITHIN RECEIPT OF REPO RT. Name Value Range Interpretation Code Description Data Bryanna rce(s) Supporting Document(s ) PCP (UR) NEGATIVE [facility] ID Date Data Source [id number] 05/25/2019 09:33:00 PM [facility] CUT-OFF >= 50 NG/ML. Name Value Range Interpretation Code Description Data Bryanna rce(s) Supporting Document(s ) THC (UR) NEGATIVE [facility] ID Date Data Source [id number] 05/25/2019 09:33:00 PM [facility] CUT-OFF >= 300 NG/ML. Name Value Range Interpretation Description Data Sup porting Code Source(s) Document(s ) OPIATES (UR) NEGATIVE [facility] ID Date Data Source [id number] 05/25/2019 09:33:00 PM [facility] CUT-OFF >= 300 NG/ML. Name Value Range Interpretation Description Data Sup porting Code Source(s) Document(s ) COCAINE (UR) NEGATIVE [facility] ID Date Data Source [id number] 05/25/2019 09:33:00 PM [facility] CUT-OFF >= 200 NG/ML. Name Value Range Interpretation Description Data Sup porting Code Source(s) Document(s ) BENZODIAZEPINES NEGATIVE [place] (UR) [facility] ID Date Data Source [id number] 05/25/2019 09:33:00 PM [facility] CUT-OFF >= 200 NG/ML. Name Value Range Interpretation Description Data Sup porting Code Source(s) Document(s ) BARBITURATES NEGATIVE [facility] (UR) Hospital ID Date Data Source [id number] 05/25/2019 09:33:00 PM [facility] CUT-OFF >= 1000 NG/ML. Name Value Range Interpretation Description Data Sup porting Code Source(s) Document(s ) AMPHETAMINES NEGATIVE [facility] (UR) Hospital ID Date Data Source [id number] 05/25/2019 09:33:00 PM [facility] Name Value Range Interpretation Description Data Sup porting Code Source(s) Document(s ) Mucus PRESENT [facility] [Presence] in Hospital Urine sediment by Light microscopy ID Date Data Source [id number] 05/25/2019 09:33:00 PM [facility] Name Value Range Interpretation Description Data Sup porting Code Source(s) Document(s ) Epithelial 2+ [facility] cells.squamous [facility] [#/area] in Urine sediment by Microscopy high power field ID Date Data Source [id number] 05/25/2019 09:33:00 PM [facility] Name Value Range Interpretation Description Data Sup porting Code Source(s) Document(s ) Bacteria OCCASIONAL [facility] [#/area] in Hospital Urine sediment by Microscopy high power field ID Date Data Source [id number] 05/25/2019 09:33:00 PM EST [facility] Name Value Range Interpretation Description Data Sup porting Code Source(s) Document(s ) Erythrocytes 0-3 [facility] [#/area] in /[HPF] Hospital Urine sediment by Microscopy high power field ID Date Data Source [id number] 05/25/2019 09:33:00 PM EST [facility] Name Value Range Interpretation Description Data Sup porting Code Source(s) Document(s ) Leukocytes 3-5 [facility] [#/area] in /[HPF] Hospital Urine sediment by Microscopy high power field ID Date Data Source [id number] 05/25/2019 09:33:00 PM EST [facility] Name Value Range Interpretation Code Description Data Supporting Source(s) Document(s ) Leukocyte TRACE [facility] esterase Hospital [Presence] in Urine by Test strip ID Date Data Source [id number] 05/25/2019 09:33:00 PM EST [facility] Name Value Range Interpretation Description Data Sup porting Code Source(s) Document(s ) URINE NEGATIVE [facility] NITRITES Hospital ID Date Data Source [id number] 05/25/2019 09:33:00 PM [facility] Name Value Range Interpretation Description Data Sup porting Code Source(s) Document(s ) Erythrocytes NEGATIVE [facility] [#/volume] in Hospital Urine by Test strip ID Date Data Source [id number] 05/25/2019 09:33:00 PM EST [facility] Name Value Range Interpretation Code Description Data Bryanna rce(s) Supporting Document(s ) Bilirubin. NEGATIVE [facility] total Hospital [Presence] in Urine by Test strip ID Date Data Source [id number] 05/25/2019 09:33:00 PM EST [facility] Name Value Range Interpretation Description Data Sup porting Code Source(s) Document(s ) Urobilinogen 1.0 [facility] [Units/volume] mg/dL Hospital in Urine by Test strip ID Date Data Source [id number] 05/25/2019 09:33:00 PM EST [facility] Name Value Range Interpretation Code Description Data Bryanna rce(s) Supporting Document(s ) Ketones 1+ [facility] [Mass/volume Hospital ] in Urine by Test strip ID Date Data Source [id number] 05/25/2019 09:33:00 PM EST [facility] Name Value Range Interpretation Description Data Sup porting Code Source(s) Document(s ) Glucose NEGATIVE [facility] [Mass/volume Hospital ] in Urine by Test strip ID Date Data Source [id number] 05/25/2019 09:33:00 PM EST [facility] Name Value Range Interpretation Code Description Data Bryanna rce(s) Supporting Document(s ) Protein TRACE [facility] [Presence] Hospital in Urine by Test strip ID Date Data Source [id number] 05/25/2019 09:33:00 PM EST [facility] Name Value Range Interpretation Code Description Data Bryanna rce(s) Supporting Document(s ) pH of Urine 6.5 [facility] by Test Hospital strip ID Date Data Source [id number] 05/25/2019 09:33:00 PM EST [facility] Name Value Range Interpretation Code Description Data Supporting Source(s) Document(s ) Specific 1.026 [facility] gravity of Hospital Urine by Test strip ID Date Data Source [id number] 05/25/2019 09:33:[address] [facility] Value Range Interpretation Description Data Sup porting Code Source(s) Document(s ) Clarity in Urine CLEAR [facility] by Refract[facility] automated ID Date Data Source [id number] 05/25/2019 09:33:[address] [facility] Value Range Interpretation Code Description Data Supporting Source(s) Document(s ) Color of DK YELLOW [facility] Urine Hospital ID Date Data Source [id number] 05/25/2019 07:31:[address] [facility] Value Range Interpretation Description Data Sup porting Code Source(s) Document(s ) Bacteria No growth [facility] identified in Hospital Blood by Culture ID Date Data Source [id number] 05/25/2019 07:24:[address] [facility] Value Range Interpretation Description Data Sup porting Code Source(s) Document(s ) Thyroxine 0.7 ng/dL [facility] (T4) [facility] [Mass/volume] in Serum or Plasma ID Date Data Source [id number] 05/25/2019 07:24:[address] [facility] Value Range Interpretation Description Data Sup porting Code Source(s) Document(s ) Thyrotropin 2.463 [facility] [Units/volume] u[IU]/mL Hospital in Serum or Plasma by Detection limit <= 0.005 mIU/L ID Date Data Source [id number] 05/25/2019 07:24:[address] [facility] Value Range Interpretation Description Data Sup porting Code Source(s) Document(s ) Thyroxine 0.7 ng/dL [facility] (T4) free Hospital [Mass/volume] in Serum or Plasma ID Date Data Source [id number] 05/25/2019 07:24:[address] [facility] Value Range Interpretation Description Data Sup porting Code Source(s) Document(s ) Thyrotropin 2.463 [facility] [Units/volume] u[IU]/mL Hospital in Serum or Plasma by Detection limit <= 0.005 mIU/L ID Date Data Source [id number] 05/25/2019 07:24:00 PM [facility] NOTIFICATION AND READ BACK OF CRITICAL R ESULTS TO DO ROWLAND OF AT 2018 ON 05/25/19 BY Jeri Iraheta.REPORTED CRITIC AL VALUES SHOULD BE INTERPRETED WITHIN CLINICAL CONTEXT. Name Value Range Interpretation Description Data Sup porting Code Source(s) Document(s ) Ammonia 56 mmol/L [facility] [Moles/volum Hospital e] in Plasma ID Date Data Source [id number] 05/25/2019 07:24:00 PM [facility] Name Value Range Interpretation Description Data Sup porting Code Source(s) Document(s ) Aspartate 33 U/L [facility] amin[facility]Enzymatic Hospital activity/volume] in Serum or Plasma ID Date Data Source [id number] 05/25/2019 07:24:00 PM [facility] Name Value Range Interpretation Description Data Sup porting Code Source(s) Document(s ) Alanine 23 U/L [facility] aminotransferase [facility] [Enzymatic Hospital activity/volume] in Serum or Plasma ID Date Data Source [id number] 05/25/2019 07:24:00 PM [facility] Name Value Range Interpretation Description Data Sup porting Code Source(s) Document(s ) Alkaline 84 U/L [facility] phosphatase Hospital [Enzymatic activity/volume ] in Serum or Plasma ID Date Data Source [id number] 05/25/2019 07:24:00 PM [facility] Name Value Range Interpretation Description Data Sup porting Code Source(s) Document(s ) Bilirubin.t 0.8 mg/dL [facility] [Mass/volum e] in Serum or Plasma ID Date Data Source [id number] 05/25/2019 07:24:00 PM [facility] Name Value Range Interpretation Code Description Data Bryanna rce(s) Supporting Document(s ) [facility] in Serum or Plasma ID Date Data Source [id number] 05/25/2019 07:24:00 PM [facility] Name Value Range Interpretation Description Data Sup porting Code Source(s) Document(s ) Albumin 3.6 g/dL [facility] [[facility]/volume [facility] ] in Serum or Plasma ID Date Data Source [id number] 05/25/2019 07:24:00 PM [facility] Name Value Range Interpretation Description Data Sup porting Code Source(s) Document(s ) Protein 7.1 g/dL [facility] [Mass/volume [facility] ] in Serum or Plasma ID Date Data Source [id number] 05/25/2019 07:24:00 PM [facility] THERAPEUTIC RANGES:UNFRACTIONATED HEPARI N THERAPY: 60-90 SECONDSARGATROBAN THERAPY: 49-99 SECONDS Name Value Range Interpretation Description Data Sup porting Code Source(s) Document(s ) aPTT in 31.8 s [facility] Platelet poor [facility] plasma by Coagulation assay ID Date Data Source [id number] 05/25/2019 07:24:00 PM [facility] THERAPEUTIC RANGE FOR STANDARD ORALANTIC OAGULANT THERAPY: 2.0-3.0THERAPEUTIC RANGE FOR HIGH DOSE ORALANTICOAGULANT THERAPY (MECHANICAL HEARTVALVE REPLACEMENT): 2.5-3.5 Name Value Range Interpretation Description Data Sup porting Code Source(s) Document(s ) INR in Platelet 1.1 [facility] poor plasma by Hospital Coagulation assay ID Date Data Source [id number] 05/25/2019 07:24:00 PM [facility] Name Value Range Interpretation Description Data Sup porting Code Source(s) Document(s ) PT panel - 12.3 s [facility] Platelet poor Hospital plasma by Coagulation assay ID Date Data Source [id number] 05/21/2019 04:13:00 PM [facility] Pediatric Allergist:RAMA ROCHELLE Name Value Range Interpretation Description Data Sup porting Code Source(s) Document(s ) Glucose 265 mg/dL [facility] [Mass/volume] Hospital in Capillary blood by Glucometer ID Date Data Source [id number] 05/21/2019 07:44:00 AM [facility] TEST PERFORMED BY [employer] ULTRA SENSITIVE CENTAUR CHEMILUMINESCENCE METHOD. Name Value Range Interpretation Description Data Sup porting Code Source(s) Document(s ) Troponin 0.02 [facility] I.cardiac ng/mL Hospital [Mass/volume ] in Serum or Plasma ID Date Data Source [id number] 05/21/2019 07:44:00 AM [facility] Name Value Range Interpretation Description Data Sup porting Code Source(s) Document(s ) Magnesium 2.2 mg/dL [facility] [Mass/volume] Hospital in Serum or Plasma ID Date Data Source [id number] 05/21/2019 07:44:00 AM [facility] Name Value Range Interpretation Description Data Sup porting Code Source(s) Document(s ) Calcium 8.0 mg/dL [facility] [Mass/volume Hospital ] in Serum or Plasma ID Date Data Source [id number] 05/21/2019 07:44:00 AM [facility] Name Value Range Interpretation Code Description Data Bryanna rce(s) Supporting Document(s ) Urea 11.4 [facility] nitrogen/Cre Hospital atinine [Mass Ratio] in Serum or Plasma ID Date Data Source [id number] 05/21/2019 07:44:00 AM [facility] Name Value Range Interpretation Description Data Sup porting Code Source(s) Document(s ) Creatinine 0.7 mg/dL [facility] [Mass/volume] Hospital in Serum or Plasma ID Date Data Source [id number] 05/21/2019 07:44:00 AM [facility] Name Value Range Interpretation Description Data Sup porting Code Source(s) Document(s ) Urea nitrogen 8 mg/dL [facility] [Mass/volume] Hospital in Serum or Plasma ID Date Data Source [id number] 05/21/2019 07:44:[address] [facility] Value Range Interpretation Code Description Data Bryanna rce(s) Supporting Document(s ) Anion gap in 10 [facility] Serum or [facility] Plasma ID Date Data Source [id number] 05/21/2019 07:44:[address] [facility] Value Range Interpretation Description Data Sup porting Code Source(s) Document(s ) Carbon 29 mmol/L [facility] dioxide, Hospital total [Moles/volu me] in Serum or Plasma ID Date Data Source [id number] 05/21/2019 07:44:[address] [facility] Value Range Interpretation Description Data Sup porting Code Source(s) Document(s ) Chloride 106 [facility] [Moles/volum mmol/L Hospital e] in Serum or Plasma ID Date Data Source [id number] 05/21/2019 07:44:00 AM [facility] Name Value Range Interpretation Description Data Sup porting Code Source(s) Document(s ) Potassium 3.5 [facility] [Moles/volume mmol/L Hospital ] in Serum or Plasma ID Date Data Source [id number] 05/21/2019 07:44:00 AM [facility] Name Value Range Interpretation Description Data Sup porting Code Source(s) Document(s ) Sodium 141 mmol/L [facility] [Moles/volu Hospital me] in Serum or Plasma ID Date Data Source [id number] 05/21/2019 07:44:[address] [facility] Value Range Interpretation Description Data Sup porting Code Source(s) Document(s ) Glucose 211 mg/dL [facility] [Mass/volume Hospital ] in Serum or Plasma ID Date Data Source [id number] 05/21/2019 02:20:[address] [facility] Value Range Interpretation Description Data Sup porting Code Source(s) Document(s ) Procalcitonin 1.1 [facility] [Mass/volume] in ng/mL [facility] Serum or Plasma ID Date Data Source [id number] 05/21/2019 02:20:[address] [facility] Value Range Interpretation Description Data Sup porting Code Source(s) Document(s ) Procalcitonin 1.1 [facility] [Mass/volume] in ng/mL [facility] Serum or Plasma ID Date Data Source [id number] 05/21/2019 02:20:[address] [facility] Value Range Interpretation Description Data Sup porting Code Source(s) Document(s ) Phosphate 2.5 mg/dL [facility] [Mass/volume] Hospital in Serum or Plasma ID Date Data Source [id number] 05/21/2019 02:20:[address] [facility] Value Range Interpretation Description Data Sup porting Code Source(s) Document(s ) Platelet mean 12.1 fL [facility] volume Hospital [Entitic volume] in Blood by Automated count ID Date Data Source [id number] 05/21/2019 02:20:[address] [facility] Value Range Interpretation Description Data Sup porting Code Source(s) Document(s ) Platelets 144 [facility] [#/volume] in 10*3/uL Hospital Blood by Automated count ID Date Data Source [id number] 05/21/2019 02:20:[address] [facility] Value Range Interpretation Description Data Sup porting Code Source(s) Document(s ) Erythrocyte 13.5 % [facility] Hospital width [Ratio] by Automated count ID Date Data Source [id number] 05/21/2019 02:20:[address] [facility] Value Range Interpretation Description Data Sup porting Code Source(s) Document(s ) Erythrocyte mean 34.8 [facility] corpuscular g/dL Hospital hemoglobin concentration [Mass/volume] by Automated count ID Date Data Source [id number] 05/21/2019 02:20:[address] [facility] Value Range Interpretation Description Data Sup porting Code Source(s) Document(s ) Erythrocyte 29.0 pg [facility] corpuscular hemoglobin [Entitic mass] by Automated count ID Date Data Source [id number] 05/21/2019 02:20:[address] [facility] Value Range Interpretation Description Data Sup porting Code Source(s) Document(s ) Erythrocyte 83.3 fL [facility] corpuscular volume [Entitic volume] by Automated count ID Date Data Source [id number] 05/21/2019 02:20:[address] [facility] Value Range Interpretation Description Data Sup porting Code Source(s) Document(s ) Hematocrit 33.0 % [facility] [Volume Hospital Fraction] of Blood by Automated count ID Date Data Source [id number] 05/21/2019 02:20:[address] [facility] Value Range Interpretation Description Data Sup porting Code Source(s) Document(s ) Hemoglobin 11.5 g/dL [facility] [Mass/volume] Hospital in Blood ID Date Data Source [id number] 05/21/2019 02:20:00 AM [facility] Name Value Range Interpretation Description Data Sup porting Code Source(s) Document(s ) Erythrocytes 3.96 [facility] [#/volume] in 10*6/uL Hospital Blood by Automated count ID Date Data Source [id number] 05/21/2019 02:20:00 AM [facility] Name Value Range Interpretation Description Data Sup porting Code Source(s) Document(s ) Leukocytes 3.4 [facility] [#/volume] in 10*3/uL Hospital Blood by Automated count ID Date Data Source [id number] 05/20/2019 08:14:00 PM [facility] Name Value Range Interpretation Description Data Sup porting Code Source(s) Document(s ) GLUCOSE RN Notified [facility] ID Date Data Source [id number] 05/20/2019 07:11:00 AM [facility] LOW MALE AND AVERAGE FEMALE CORONARY HEA RT DISEASE RISK. Name Value Range Interpretation Description Data Sup porting Code Source(s) Document(s ) Cholesterol 3.8 [facility] .total/Chol {ratio} Hospital esterol in HDL [Mass Ratio] in Serum or Plasma ID Date Data Source [id number] 05/20/2019 07:11:00 AM [facility] Name Value Range Interpretation Description Data Sup porting Code Source(s) Document(s ) Cholesterol in 15 mg/dL [facility] VLDL Hospital [Mass/volume] in Serum or Plasma by calculation ID Date Data Source [id number] 05/20/2019 07:11:00 AM [facility] Name Value Range Interpretation Description Data Sup porting Code Source(s) Document(s ) Cholesterol in 99 mg/dL [facility] LDL Hospital [Mass/volume] in Serum or Plasma by Direct assay ID Date Data Source [id number] 05/20/2019 07:11:00 AM [facility] Name Value Range Interpretation Description Data Sup porting Code Source(s) Document(s ) Cholesterol in 48 mg/dL [facility] HDL Hospital [Mass/volume] in Serum or Plasma ID Date Data Source [id number] 05/20/2019 07:11:00 AM [facility] Name Value Range Interpretation Description Data Sup porting Code Source(s) Document(s ) Triglyceride 75 mg/dL [facility] [Mass/volume] in Hospital Serum or Plasma ID Date Data Source [id number] 05/20/2019 07:11:00 AM [facility] Name Value Range Interpretation Description Data Sup porting Code Source(s) Document(s ) Cholesterol 183 mg/dL [facility] [Mass/volume] Hospital in Serum or Plasma ID Date Data Source [id number] 05/20/2019 07:11:00 AM [facility] LOW MALE AND AVERAGE FEMALE CORONARY HEA RT DISEASE RISK. Name Value Range Interpretation Description Data Sup porting Code Source(s) Document(s ) Cholesterol 3.8 [facility] .total/Chol {ratio} Hospital esterol in HDL [Mass Ratio] in Serum or Plasma ID Date Data Source [id number] 05/20/2019 07:11:00 AM [facility] Name Value Range Interpretation Description Data Sup porting Code Source(s) Document(s ) Cholesterol in 15 mg/dL [facility] VLDL [facility] [Mass/volume] in Serum or Plasma by calculation ID Date Data Source [id number] 05/20/2019 07:11:00 AM [facility] Name Value Range Interpretation Description Data Sup porting Code Source(s) Document(s ) Cholesterol in 99 mg/dL [facility] LDL Hospital [Mass/volume] in Serum or Plasma by Direct assay ID Date Data Source [id number] 05/20/2019 07:11:00 AM EST [facility] Name Value Range Interpretation Description Data Sup porting Code Source(s) Document(s ) Cholesterol in 48 mg/dL [facility] Hospital [Mass/volume] in Serum or Plasma ID Date Data Source [id number] 05/20/2019 07:11:00 AM EST [facility] Name Value Range Interpretation Description Data Sup porting Code Source(s) Document(s ) Triglyceride 75 mg/dL [facility] [Mass/volume] in Hospital Serum or Plasma ID Date Data Source [id number] 05/20/2019 07:11:00 AM [facility] Name Value Range Interpretation Description Data Sup porting Code Source(s) Document(s ) Cholesterol 183 mg/dL [facility] [Mass/volume] Hospital in Serum or Plasma ID Date Data Source [id number] 05/20/2019 07:11:00 AM [facility] Name Value Range Interpretation Code Description Data Supporting Source(s) Document(s ) NUCLEATED RBCS 0.0 % [facility] (AUTO Hospital DIFF%)DIS ID Date Data Source [id number] 05/20/2019 07:11:00 AM [facility] Name Value Range Interpretation Description Data Sup porting Code Source(s) Document(s ) Differential AUTOMATED [facility] cell count Hospital method - Blood ID Date Data Source [id number] 05/20/2019 07:11:00 AM [facility] Name Value Range Interpretation Description Data Sup porting Code Source(s) Document(s ) Immature 0.01 [facility] granulocytes 10*3/uL Hospital [#/volume] in Blood by Automated count ID Date Data Source [id number] 05/20/2019 07:11:00 AM EST [facility] Name Value Range Interpretation Description Data Sup porting Code Source(s) Document(s ) Basophils 0.04 [facility] [#/volume] in 10*3/uL Hospital Blood by Automated count ID Date Data Source [id number] 05/20/2019 07:11:00 AM EST [facility] Name Value Range Interpretation Description Data Sup porting Code Source(s) Document(s ) Eosinophils 0.14 [facility] [#/volume] in 10*3/uL Hospital Blood by Automated count ID Date Data Source [id number] 05/20/2019 07:11:00 AM EST [facility] Value Range Interpretation Description Data Sup porting Code Source(s) Document(s ) Monocytes 0.60 [facility] [#/volume] in 10*3/uL Hospital Blood by Automated count ID Date Data Source [id number] 05/20/2019 07:11:[address] [facility] Value Range Interpretation Description Data Sup porting Code Source(s) Document(s ) Lymphocytes 2.05 [facility] [#/volume] in 10*3/uL Hospital Blood by Automated count ID Date Data Source [id number] 05/20/2019 07:11:00 AM EST [facility] Value Range Interpretation Description Data Sup porting Code Source(s) Document(s ) Neutrophils 1.12 [facility] [#/volume] in 10*3/uL Hospital Blood by Automated count ID Date Data Source [id number] 05/20/2019 07:11:00 AM EST [facility] Value Range Interpretation Description Data Sup porting Code Source(s) Document(s ) Nucleated 0.0 % [facility] erythrocytes/10 Hospital 0 leukocytes [Ratio] in Blood by Automated count ID Date Data Source [id number] 05/20/2019 07:11:00 AM EST [facility] Name Value Range Interpretation Description Data Sup porting Code Source(s) Document(s ) Immature 0.3 % [facility] granulocytes/10 Hospital 0 leukocytes in Blood by Automated count ID Date Data Source [id number] 05/20/2019 07:11:00 AM EST [facility] Name Value Range Interpretation Description Data Sup porting Code Source(s) Document(s ) Basophils/100 1.0 % [facility] leukocytes in Hospital Blood by Automated count ID Date Data Source [id number] 05/20/2019 07:11:00 AM [facility] Name Value Range Interpretation Description Data Sup porting Code Source(s) Document(s ) Eosinophils/100 3.5 % [facility] leukocytes in Hospital Blood by Automated count ID Date Data Source [id number] 05/20/2019 07:11:00 AM EST [facility] Name Value Range Interpretation Description Data Sup porting Code Source(s) Document(s ) Monocytes/100 15.2 % [facility] leukocytes in Hospital Blood by Automated count ID Date Data Source [id number] 05/20/2019 07:11:00 AM EST [facility] Name Value Range Interpretation Description Data Sup porting Code Source(s) Document(s ) Lymphocytes/10 51.8 % [facility] 0 leukocytes Hospital in Blood by Automated count ID Date Data Source [id number] 05/20/2019 07:11:00 AM EST [facility] Name Value Range Interpretation Description Data Sup porting Code Source(s) Document(s ) Neutrophils/10 28.2 % [facility] 0 leukocytes Hospital in Blood by Automated count ID Date Data Source [id number] 05/19/2019 03:33:00 PM EST [facility] Name Value Range Interpretation Code Description Data Bryanna rce(s) Supporting Document(s ) Cells 100 [facility] Counted Hospital Total [#] in Blood ID Date Data Source [id number] 05/19/2019 03:33:00 PM EST [facility] Name Value Range Interpretation Code Description Data Supporting Source(s) Document(s ) PLATELET NORMAL [facility] ID Date Data Source [id number] 05/19/2019 03:33:00 PM EST [facility] Name Value Range Interpretation Code Description Data Bryanna rce(s) Supporting Document(s ) BINTA CELLS 1+ [facility] ID Date Data Source [id number] 05/19/2019 03:33:[address] [facility] Value Range Interpretation Code Description Data Bryanna rce(s) Supporting Document(s ) TARGET CELLS OCC [facility] ID Date Data Source [id number] 05/19/2019 03:33:00 PM EST [facility] Value Range Interpretation Code Description Data Bryanna rce(s) Supporting Document(s ) OVALOCYTES OCC [facility] ID Date Data Source [id number] 05/19/2019 03:33:[address] [facility] Value Range Interpretation Description Data Sup porting Code Source(s) Document(s ) POIKILOCYTOSIS 1+ [facility] ID Date Data Source [id number] 05/19/2019 03:33:[address] [facility] Value Range Interpretation Description Data Sup porting Code Source(s) Document(s ) Basophils 0.03 [facility] [#/volume] in 10*3/uL Hospital Blood by Manual count ID Date Data Source [id number] 05/19/2019 03:33:[address] [facility] Value Range Interpretation Description Data Sup porting Code Source(s) Document(s ) Eosinophils 0.03 [facility] [#/volume] in 10*3/uL Hospital Blood by Manual count ID Date Data Source [id number] 05/19/2019 03:33:00 PM EST [facility] Name Value Range Interpretation Description Data Sup porting Code Source(s) Document(s ) Monocytes 0.33 [facility] [#/volume] in 10*3/uL Hospital Blood by Manual count ID Date Data Source [id number] 05/19/2019 03:33:00 PM EST [facility] Name Value Range Interpretation Description Data Sup porting Code Source(s) Document(s ) Lymphocytes 0.43 [facility] [#/volume] in 10*3/uL Hospital Blood by Manual count ID Date Data Source [id number] 05/19/2019 03:33:00 PM EST [facility] Value Range Interpretation Description Data Sup porting Code Source(s) Document(s ) Neutrophils 2.51 [facility] [#/volume] in 10*3/uL Hospital Blood by Manual count ID Date Data Source [id number] 05/19/2019 03:33:00 PM EST [facility] Value Range Interpretation Description Data Sup porting Code Source(s) Document(s ) Basophils/100 1 % [facility] leukocytes in Hospital Blood by Manual count ID Date Data Source [id number] 05/19/2019 03:33:00 PM EST [facility] Name Value Range Interpretation Description Data Sup porting Code Source(s) Document(s ) Eosinophils/100 1 % [facility] leukocytes in Hospital Blood by Manual count ID Date Data Source [id number] 05/19/2019 03:33:00 PM EST [facility] Value Range Interpretation Description Data Sup porting Code Source(s) Document(s ) Monocytes/100 10 % [facility] leukocytes in Hospital Blood by Manual count ID Date Data Source [id number] 05/19/2019 03:33:00 PM EST [facility] Name Value Range Interpretation Description Data Sup porting Code Source(s) Document(s ) Lymphocytes/100 13 % [facility] leukocytes in Hospital Blood by Manual count ID Date Data Source [id number] 05/19/2019 03:33:00 PM EST [facility] Name Value Range Interpretation Description Data Sup porting Code Source(s) Document(s ) Neutrophils/100 76 % [facility] leukocytes in Hospital Blood by Manual count ID Date Data Source [id number] 05/19/2019 03:33:00 PM EST [facility] Name Value Range Interpretation Code Description Data Bryanna rce(s) Supporting Document(s ) Cells 100 [facility] Total [#] in Blood ID Date Data Source [id number] 05/19/2019 03:33:00 PM EST [facility] Name Value Range Interpretation Code Description Data Supporting Source(s) Document(s ) PLATELET NORMAL [facility] ID Date Data Source [id number] 05/19/2019 03:33:00 PM EST [facility] Name Value Range Interpretation Code Description Data Bryanna rce(s) Supporting Document(s ) BINTA CELLS 1+ [facility] ID Date Data Source [id number] 05/19/2019 03:33:00 PM EST [facility] Name Value Range Interpretation Code Description Data Bryanna rce(s) Supporting Document(s ) TARGET CELLS OCC [facility] ID Date Data Source [id number] 05/19/2019 03:33:00 PM EST [facility] Name Value Range Interpretation Code Description Data Bryanna rce(s) Supporting Document(s ) OVALOCYTES OCC [facility] ID Date Data Source [id number] 05/19/2019 03:33:00 PM EST [facility] Name Value Range Interpretation Description Data Sup porting Code Source(s) Document(s ) POIKILOCYTOSIS 1+ [facility] ID Date Data Source [id number] 05/19/2019 03:33:00 PM EST [facility] Name Value Range Interpretation Description Data Sup porting Code Source(s) Document(s ) Basophils 0.03 [facility] [#/volume] in 10*3/uL Hospital Blood by Manual count ID Date Data Source [id number] 05/19/2019 03:33:00 PM EST [facility] Value Range Interpretation Description Data Sup porting Code Source(s) Document(s ) Eosinophils 0.03 [facility] [#/volume] in 10*3/uL Hospital Blood by Manual count ID Date Data Source [id number] 05/19/2019 03:33:[address] [facility] Value Range Interpretation Description Data Sup porting Code Source(s) Document(s ) Monocytes 0.33 [facility] [#/volume] in 10*3/uL Hospital Blood by Manual count ID Date Data Source [id number] 05/19/2019 03:33:00 PM EST [facility] Value Range Interpretation Description Data Sup porting Code Source(s) Document(s ) Lymphocytes 0.43 [facility] [#/volume] in 10*3/uL Hospital Blood by Manual count ID Date Data Source [id number] 05/19/2019 03:33:00 PM EST [facility] Name Value Range Interpretation Description Data Sup porting Code Source(s) Document(s ) Neutrophils 2.51 [facility] [#/volume] in 10*3/uL Hospital Blood by Manual count ID Date Data Source [id number] 05/19/2019 03:33:00 PM [facility] Name Value Range Interpretation Description Data Sup porting Code Source(s) Document(s ) Basophils/100 1 % [facility] leukocytes in Hospital Blood by Manual count ID Date Data Source [id number] 05/19/2019 03:33:00 PM [facility] Name Value Range Interpretation Description Data Sup porting Code Source(s) Document(s ) Eosinophils/100 1 % [facility] leukocytes in Hospital Blood by Manual count ID Date Data Source [id number] 05/19/2019 03:33:00 PM [facility] Name Value Range Interpretation Description Data Sup porting Code Source(s) Document(s ) Monocytes/100 10 % [facility] leukocytes in Hospital Blood by Manual count ID Date Data Source [id number] 05/19/2019 03:33:00 PM [facility] Name Value Range Interpretation Description Data Sup porting Code Source(s) Document(s ) Lymphocytes/100 13 % [facility] leukocytes in Hospital Blood by Manual count ID Date Data Source [id number] 05/19/2019 03:33:00 PM [facility] Name Value Range Interpretation Description Data Sup porting Code Source(s) Document(s ) Neutrophils/100 76 % [facility] leukocytes in Hospital Blood by Manual count ID Date Data Source [id number] 05/18/2019 10:05:00 AM [facility] Pediatric Allergist:THONG GLASS Name Value Range Interpretation Description Data Sup porting Code Source(s) Document(s ) Glucose 291 mg/dL [facility] [Mass/volume] [facility] in Capillary blood by Glucometer ID Date Data Source [id number] 05/18/2019 08:04:00 AM [facility] Name Value Range Interpretation Description Data Sup porting Code Source(s) Document(s ) GLUCOSE Pre Meal [facility] ID Date Data Source [id number] 05/18/2019 02:12:00 AM EST [facility] Name Value Range Interpretation Description Data Sup porting Code Source(s) Document(s ) Lactate 1.4 [facility] [Moles/volum mmol/L Hospital e] in Serum or Plasma ID Date Data Source [id number] 05/18/2019 02:12:00 AM EST [facility] Name Value Range Interpretation Description Data Sup porting Code Source(s) Document(s ) Lactate 1.4 [facility] [Moles/volum mmol/L Hospital e] in Serum or Plasma ID Date Data Source [id number] 05/18/2019 02:12:00 AM [facility] Name Value Range Interpretation Description Data Sup porting Code Source(s) Document(s ) Calcium 8.5 mg/dL [facility] [Mass/volume Hospital ] in Serum or Plasma ID Date Data Source [id number] 05/18/2019 02:12:00 AM [facility] Name Value Range Interpretation Code Description Data Bryanna rce(s) Supporting Document(s ) Urea 8.0 [facility] nitrogen/Cre Hospital atinine [Mass Ratio] in Serum or Plasma ID Date Data Source [id number] 05/18/2019 02:12:00 AM [facility] Name Value Range Interpretation Description Data Sup porting Code Source(s) Document(s ) Creatinine 1.0 mg/dL [facility] [Mass/volume] Hospital in Serum or Plasma ID Date Data Source [id number] 05/18/2019 02:12:00 AM [facility] Name Value Range Interpretation Description Data Sup porting Code Source(s) Document(s ) Urea nitrogen 8 mg/dL [facility] [Mass/volume] Hospital in Serum or Plasma ID Date Data Source [id number] 05/18/2019 02:12:00 AM [facility] Name Value Range Interpretation Code Description Data Bryanna rce(s) Supporting Document(s ) Anion gap in 16 [facility] Serum or [facility] Plasma ID Date Data Source [id number] 05/18/2019 02:12:00 AM [facility] Name Value Range Interpretation Description Data Sup porting Code Source(s) Document(s ) Carbon 26 mmol/L [facility] dioxide, Hospital total [Moles/volu me] in Serum or Plasma ID Date Data Source [id number] 05/18/2019 02:12:00 AM [facility] Name Value Range Interpretation Description Data Sup porting Code Source(s) Document(s ) Chloride 95 mmol/L [facility] [Moles/volum Hospital e] in Serum or Plasma ID Date Data Source [id number] 05/18/2019 02:12:00 AM [facility] Name Value Range Interpretation Description Data Sup porting Code Source(s) Document(s ) Potassium 3.8 [facility] [Moles/volume mmol/L Hospital ] in Serum or Plasma ID Date Data Source [id number] 05/18/2019 02:12:00 AM [facility] Name Value Range Interpretation Description Data Sup porting Code Source(s) Document(s ) Sodium 133 mmol/L [facility] [Moles/volu Hospital me] in Serum or Plasma ID Date Data Source [id number] 05/18/2019 02:12:00 AM [facility] NOTIFICATION AND READ BACK OF CRITICAL R ESULTS TO AMMON GREEN[facility] RN AC AT 0506 ON 05/18/19 BY Danial Truong.PLEASE NOTE MARTINEZ GE IN CRITICAL GLUCOSE VALUES EFFECTIVE 04/22/17.REPORTED CRITICAL VALUES SHOULD B E INTERPRETED WITHIN CLINICAL CONTEXT. Name Value Range Interpretation Description Data Sup porting Code Source(s) Document(s ) Glucose 445 mg/dL [facility] [[facility] ] in Serum or Plasma ID Date Data Source [id number] 05/17/2019 11:50:00 PM EST [facility] CUT-OFF >= 25 NG/ML.THE FINDINGS OF THE URINE DRUG SCREEN ARE USED SOLELY FOR PATIENT MANAGEMENT AND GUIDANCE. THE RESULTS FREEDOM ULD NOT BE USED FOR FORENSIC PURPOSE. ANY CLINICALLY UNSUSPECTED POSITIVE DRUG SCR EEN CAN BE CONFIRMED BY CALLING THE LABORATORY 3 DAYS WITHIN RECEIPT OF REPO RT. Name Value Range Interpretation Code Description Data Bryanna rce(s) Supporting Document(s ) PCP (UR) NEGATIVE [facility] ID Date Data Source [id number] 05/17/2019 11:50:00 PM EST [facility] CUT-OFF >= 50 NG/ML. Name Value Range Interpretation Code Description Data Bryanna rce(s) Supporting Document(s ) THC (UR) NEGATIVE [facility] ID Date Data Source [id number] 05/17/2019 11:50:00 PM EST [facility] CUT-OFF >= 300 NG/ML. Name Value Range Interpretation Description Data Sup porting Code Source(s) Document(s ) OPIATES (UR) NEGATIVE [facility] ID Date Data Source [id number] 05/17/2019 11:50:00 PM EST [facility] CUT-OFF >= 300 NG/ML. Name Value Range Interpretation Description Data Sup porting Code Source(s) Document(s ) COCAINE (UR) NEGATIVE [facility] ID Date Data Source [id number] 05/17/2019 11:50:00 PM EST [facility] CUT-OFF >= 200 NG/ML. Name Value Range Interpretation Description Data Sup porting Code Source(s) Document(s ) BENZODIAZEPINES NEGATIVE [place] (UR) [facility] ID Date Data Source [id number] 05/17/2019 11:50:00 PM [facility] CUT-OFF >= 200 NG/ML. Name Value Range Interpretation Description Data Sup porting Code Source(s) Document(s ) BARBITURATES NEGATIVE [facility] (UR) Hospital ID Date Data Source [id number] 05/17/2019 11:50:00 PM [facility] CUT-OFF >= 1000 NG/ML. Name Value Range Interpretation Description Data Sup porting Code Source(s) Document(s ) AMPHETAMINES NEGATIVE [facility] (UR) Hospital ID Date Data Source [id number] 05/17/2019 11:50:00 PM [facility] Name Value Range Interpretation Description Data Sup porting Code Source(s) Document(s ) Epithelial OCCASIONAL [facility] cells.[facility] s [#/area] in Urine sediment by Microscopy high power field ID Date Data Source [id number] 05/17/2019 11:50:00 PM [facility] Name Value Range Interpretation Description Data Sup porting Code Source(s) Document(s ) Erythrocytes NEGATIVE [facility] [#/area] in /[HPF] [facility] Urine sediment Hospital by Microscopy high power field ID Date Data Source [id number] 05/17/2019 11:50:00 PM [facility] Name Value Range Interpretation Description Data Sup porting Code Source(s) Document(s ) Leukocytes NEGATIVE [facility] [#/area] in /[HPF] Hospital Urine sediment by Microscopy high power field ID Date Data Source [id number] 05/17/2019 11:50:00 PM [facility] Name Value Range Interpretation Description Data Sup porting Code Source(s) Document(s ) Leukocyte NEGATIVE [facility] esterase Hospital [Presence] in Urine by Test strip ID Date Data Source [id number] 05/17/2019 11:50:00 PM EST [facility] Name Value Range Interpretation Description Data Sup porting Code Source(s) Document(s ) URINE NEGATIVE [facility] NITRITES Hospital ID Date Data Source [id number] 05/17/2019 11:50:00 PM EST [facility] Name Value Range Interpretation Description Data Sup porting Code Source(s) Document(s ) Erythrocytes NEGATIVE [facility] [#/volume] in Hospital Urine by Test strip ID Date Data Source [id number] 05/17/2019 11:50:00 PM EST [facility] Name Value Range Interpretation Code Description Data Bryanna rce(s) Supporting Document(s ) Bilirubin. NEGATIVE [facility] total Hospital [Presence] in Urine by Test strip ID Date Data Source [id number] 05/17/2019 11:50:00 PM [facility] Name Value Range Interpretation Description Data Sup porting Code Source(s) Document(s ) Urobilinogen 0.2 [facility] [Units/volume] mg/dL Hospital in Urine by Test strip ID Date Data Source [id number] 05/17/2019 11:50:00 PM EST [facility] Name Value Range Interpretation Code Description Data Bryanna rce(s) Supporting Document(s ) Ketones 2+ [facility] [Mass/volume Hospital ] in Urine by Test strip ID Date Data Source [id number] 05/17/2019 11:50:00 PM [facility] Name Value Range Interpretation Code Description Data Bryanna rce(s) Supporting Document(s ) Glucose 3+ [facility] [Mass/volume Hospital ] in Urine by Test strip ID Date Data Source [id number] 05/17/2019 11:50:00 PM EST [facility] Name Value Range Interpretation Code Description Data Bryanna rce(s) Supporting Document(s ) Protein TRACE [facility] [Presence] Hospital in Urine by Test strip ID Date Data Source [id number] 05/17/2019 11:50:00 PM [facility] Name Value Range Interpretation Code Description Data Bryanna rce(s) Supporting Document(s ) pH of Urine 6.0 [facility] by Test Hospital strip ID Date Data Source [id number] 05/17/2019 11:50:00 PM [facility] Name Value Range Interpretation Code Description Data Supporting Source(s) Document(s ) Specific 1.041 [facility] gravity of Hospital Urine by Test strip ID Date Data Source [id number] 05/17/2019 11:50:00 PM [facility] Name Value Range Interpretation Description Data Sup porting Code Source(s) Document(s ) Clarity in Urine CLOUDY [facility] by Refractometry [facility] automated ID Date Data Source [id number] 05/17/2019 11:50:00 PM [facility] Name Value Range Interpretation Code Description Data Bryanna rce(s) Supporting Document(s ) Color of YELLOW [facility] Urine Hospital ID Date Data Source [id number] 05/17/2019 11:50:00 PM [facility] CUT-OFF >= 25 NG/ML.THE FINDINGS OF THE URINE DRUG SCREEN ARE USED SOLELY FOR PATIENT MANAGEMENT AND GUIDANCE. THE RESULTS [place] ULD NOT BE USED FOR FORENSIC PURPOSE. ANY CLINICALLY UNSUSPECTED POSITIVE DRUG SCR EEN CAN BE CONFIRMED BY CALLING THE LABORATORY 3 DAYS WITHIN RECEIPT OF REPO RT. Name Value Range Interpretation Code Description Data Bryanna rce(s) Supporting Document(s ) PCP (UR) NEGATIVE [facility] ID Date Data Source [id number] 05/17/2019 11:50:00 PM [facility] CUT-OFF >= 50 NG/ML. Name Value Range Interpretation Code Description Data Bryanna rce(s) Supporting Document(s ) THC (UR) NEGATIVE [facility] ID Date Data Source [id number] 05/17/2019 11:50:00 PM EST [facility] CUT-OFF >= 300 NG/ML. Name Value Range Interpretation Description Data Sup porting Code Source(s) Document(s ) OPIATES (UR) NEGATIVE [facility] ID Date Data Source [id number] 05/17/2019 11:50:00 PM [facility] CUT-OFF >= 300 NG/ML. Name Value Range Interpretation Description Data Sup porting Code Source(s) Document(s ) COCAINE (UR) NEGATIVE [facility] ID Date Data Source [id number] 05/17/2019 11:50:00 PM [facility] CUT-OFF >= 200 NG/ML. Name Value Range Interpretation Description Data Sup porting Code Source(s) Document(s ) BENZODIAZEPINES NEGATIVE [place] (UR) [facility] ID Date Data Source [id number] 05/17/2019 11:50:00 PM [facility] CUT-OFF >= 200 NG/ML. Name Value Range Interpretation Description Data Sup porting Code Source(s) Document(s ) BARBITURATES NEGATIVE [facility] (UR) Hospital ID Date Data Source [id number] 05/17/2019 11:50:00 PM [facility] CUT-OFF >= 1000 NG/ML. Name Value Range Interpretation Description Data Sup porting Code Source(s) Document(s ) AMPHETAMINES NEGATIVE [facility] (UR) Hospital ID Date Data Source [id number] 05/17/2019 11:50:00 PM [facility] Name Value Range Interpretation Description Data Sup porting Code Source(s) Document(s ) Epithelial OCCASIONAL [facility] cells.[facility] s [#/area] in Urine sediment by Microscopy high power field ID Date Data Source [id number] 05/17/2019 11:50:00 PM EST [facility] Name Value Range Interpretation Description Data Sup porting Code Source(s) Document(s ) Erythrocytes NEGATIVE [facility] [#/area] in /[HPF] [facility] Urine sediment Hospital by Microscopy high power field ID Date Data Source [id number] 05/17/2019 11:50:00 PM EST [facility] Name Value Range Interpretation Description Data Sup porting Code Source(s) Document(s ) Leukocytes NEGATIVE [facility] [#/area] in /[HPF] Hospital Urine sediment by Microscopy high power field ID Date Data Source [id number] 05/17/2019 11:50:[address] [facility] Value Range Interpretation Description Data Sup porting Code Source(s) Document(s ) Leukocyte NEGATIVE [facility] esterase [facility] [Presence] in Urine by Test strip ID Date Data Source [id number] 05/17/2019 11:50:[address] [facility] Value Range Interpretation Description Data Sup porting Code Source(s) Document(s ) URINE NEGATIVE [facility] NITRITES Hospital ID Date Data Source [id number] 05/17/2019 11:50:[address] [facility] Value Range Interpretation Description Data Sup porting Code Source(s) Document(s ) Erythrocytes NEGATIVE [facility] [#/volume] in Hospital Urine by Test strip ID Date Data Source [id number] 05/17/2019 11:50:[address] [facility] Value Range Interpretation Code Description Data Bryanna rce(s) Supporting Document(s ) Bilirubin. NEGATIVE [facility] total Hospital [Presence] in Urine by Test strip ID Date Data Source [id number] 05/17/2019 11:50:[address] [facility] Value Range Interpretation Description Data Sup porting Code Source(s) Document(s ) Urobilinogen 0.2 [facility] [Units/volume] mg/dL Hospital in Urine by Test strip ID Date Data Source [id number] 05/17/2019 11:50:00 PM EST [facility] Name Value Range Interpretation Code Description Data Bryanna rce(s) Supporting Document(s ) Ketones 2+ [facility] [Mass/volume Hospital ] in Urine by Test strip ID Date Data Source [id number] 05/17/2019 11:50:00 PM EST [facility] Name Value Range Interpretation Code Description Data Bryanna rce(s) Supporting Document(s ) Glucose 3+ [facility] [Mass/volume Hospital ] in Urine by Test strip ID Date Data Source [id number] 05/17/2019 11:50:00 PM EST [facility] Name Value Range Interpretation Code Description Data Bryanna rce(s) Supporting Document(s ) Protein TRACE [facility] [Presence] Hospital in Urine by Test strip ID Date Data Source [id number] 05/17/2019 11:50:00 PM EST [facility] Name Value Range Interpretation Code Description Data Bryanna rce(s) Supporting Document(s ) pH of Urine 6.0 [facility] by Test Hospital strip ID Date Data Source [id number] 05/17/2019 11:50:00 PM EST [facility] Name Value Range Interpretation Code Description Data Supporting Source(s) Document(s ) Specific 1.041 [facility] gravity of Hospital Urine by Test strip ID Date Data Source [id number] 05/17/2019 11:50:00 PM EST [facility] Name Value Range Interpretation Description Data Sup porting Code Source(s) Document(s ) Clarity in Urine CLOUDY [facility] by Refractometry [facility] automated ID Date Data Source [id number] 05/17/2019 11:50:00 PM [facility] Name Value Range Interpretation Code Description Data Bryanna rce(s) Supporting Document(s ) Color of YELLOW [facility] Urine Hospital ID Date Data Source [id number] 05/17/2019 08:37:00 PM [facility] REFERENCE RANGES: NONE DETECTED <20 MG/DL NONE TO MILD EUPHORIA 20-49 MG/DL MILD EUPHORIA 50-99 MG/DL MODERATE EUPHORIA 100-149 MG/DL INTOXICATION 150-300 MG/DL Name Value Range Interpretation Description Data Sup porting Code Source(s) Document(s ) Ethanol < 20 [facility] [Mass/volume mg/dL Hospital ] in Serum or Plasma ID Date Data Source [id number] 05/17/2019 08:37:00 PM [facility] TEST RESULT IS A TOTAL TRICYCLIC VALUE.T RICYCLIC ANTIDEPRESSANT REFERENCE RANGE: AMITRIPTYLINE AND METABOLITE (NORTRIPTYL INE) TOTAL THERAPEUTIC: 75 - 225 NG/ML. TOTAL TOXIC: > 400 NG/ML. NORTRIPTYLINE ONLY TOTAL THERAPEUTIC: 50 - 150 NG/ML. TOTAL TOXIC: > 400 NG/ML. IMIPRAMINE AND METABOLITE (DESIPRAMINE) TOTAL THERAPEUTIC: 125 - 175 NG/ML. TOTAL TOXIC: > 400 NG/ML. Name Value Range Interpretation Description Data Sup porting Code Source(s) Document(s ) TRICYCLIC < 80 [facility] ANTIDEPRESSANT ng/mL Hospital ID Date Data Source [id number] 05/17/2019 08:37:00 PM [facility] REFERENCE RANGES: ANALGESIC: 0.0 - 10.0 MG/DL. ARTHRITIC THERAPY: 15.0 - 30.0 MG/DL. Name Value Range Interpretation Description Data Sup porting Code Source(s) Document(s ) Salicylates < 3.0 [facility] [Mass/volume] mg/dL Hospital in Serum or Plasma ID Date Data Source [id number] 05/17/2019 08:37:00 PM EST [facility] THERAPEUTIC RANGE: 10.0-30.0 UG/MLTOXIC RANGE: 4 HRS AFTER INGESTION >150 UG/ML 12 HRS AFTER INGESTION >35 UG/ML Name Value Range Interpretation Description Data Sup porting Code Source(s) Document(s ) ACETAMINOPHEN < 10.0 [facility] ug/mL Hospital ID Date Data Source [id number] 05/17/2019 08:37:00 PM [facility] Name Value Range Interpretation Description Data Sup porting Code Source(s) Document(s ) OSMOLALITY 309 [facility] (SERUM) mosm/kg Hospital ID Date Data Source [id number] 05/17/2019 08:37:00 PM [facility] REFERENCE RANGES: NONE DETECTED <20 MG/DL NONE TO MILD EUPHORIA 20-49 MG/DL MILD EUPHORIA 50-99 MG/DL MODERATE EUPHORIA 100-149 MG/DL INTOXICATION 150-300 MG/DL Name Value Range Interpretation Description Data Sup porting Code Source(s) Document(s ) Ethanol < 20 [facility] [Mass/volume mg/dL Hospital ] in Serum or Plasma ID Date Data Source [id number] 05/17/2019 08:37:00 PM [facility] TEST RESULT IS A TOTAL TRICYCLIC VALUE.T RICYCLIC ANTIDEPRESSANT REFERENCE RANGE: AMITRIPTYLINE AND METABOLITE (NORTRIPTYL INE) TOTAL THERAPEUTIC: 75 - 225 NG/ML. TOTAL TOXIC: > 400 NG/ML. NORTRIPTYLINE ONLY TOTAL THERAPEUTIC: 50 - 150 NG/ML. TOTAL TOXIC: > 400 NG/ML. IMIPRAMINE AND METABOLITE (DESIPRAMINE) TOTAL THERAPEUTIC: 125 - 175 NG/ML. TOTAL TOXIC: > 400 NG/ML. Name Value Range Interpretation Description Data Sup porting Code Source(s) Document(s ) TRICYCLIC < 80 [facility] ANTIDEPRESSANT ng/mL Hospital ID Date Data Source [id number] 05/17/2019 08:37:00 PM [facility] REFERENCE RANGES: ANALGESIC: 0.0 - 10.0 MG/DL. ARTHRITIC THERAPY: 15.0 - 30.0 MG/DL. Name Value Range Interpretation Description Data Sup porting Code Source(s) Document(s ) Salicylates < 3.0 [facility] [Mass/volume] mg/dL Hospital in Serum or Plasma ID Date Data Source [id number] 05/17/2019 08:37:00 PM [facility] THERAPEUTIC RANGE: 10.0-30.0 UG/MLTOXIC RANGE: 4 HRS AFTER INGESTION >150 UG/ML 12 HRS AFTER INGESTION >35 UG/ML Name Value Range Interpretation Description Data Sup porting Code Source(s) Document(s ) ACETAMINOPHEN < 10.0 [facility] ug/mL Hospital ID Date Data Source [id number] 05/17/2019 08:37:00 PM [facility] ADA RECOMMENDATIONS: NON-DIABETES: 4.0-6.0% CONTROLLED DIABETES: 6.0-8.0% UNCONTROLLED DIABETE S: UP TO 20%RECOMMENDED ADA RESULT FOR THERAPY: HEMOGLOBIN A1C RESULT LESS GM N 7%.NOTE: METHOD CHANGE EFFECTIVE 11/11/14. Name Value Range Interpretation Description Data Sup porting Code Source(s) Document(s ) Hemoglobin 10.4 % [facility] A1c/Hemoglobin [facility] .total in Blood ID Date Data Source [id number] 05/17/2019 08:37:00 PM [facility] Name Value Range Interpretation Description Data Sup porting Code Source(s) Document(s ) OSMOLALITY 309 [facility] (SERUM) mosm/kg Hospital ID Date Data Source [id number] 05/17/2019 08:37:00 PM [facility] Name Value Range Interpretation Description Data Sup porting Code Source(s) Document(s ) Aspartate 37 U/L White aminotransferase [facility] [Enzymatic Hospital activity/volume] in Serum or Plasma ID Date Data Source [id number] 05/17/2019 08:37:00 PM [facility] Name Value Range Interpretation Description Data Sup porting Code Source(s) Document(s ) Alanine 22 U/L [facility] [Enzymatic Hospital activity/volume] in Serum or Plasma ID Date Data Source [id number] 05/17/2019 08:37:00 PM EST [facility] Name Value Range Interpretation Description Data Sup porting Code Source(s) Document(s ) Alkaline 87 U/L [facility] phosphatase Hospital [Enzymatic activity/volume ] in Serum or Plasma ID Date Data Source [id number] 05/17/2019 08:37:00 PM EST [facility] Name Value Range Interpretation Description Data Sup porting Code Source(s) Document(s ) Bilirubin.t 1.4 mg/dL [facility] [Mass/volum e] in Serum or Plasma ID Date Data Source [id number] 05/17/2019 08:37:00 PM EST [facility] Name Value Range Interpretation Code Description Data Bryanna rce(s) Supporting Document(s ) [facility] Ratio] in Serum or Plasma ID Date Data Source [id number] 05/17/2019 08:37:00 PM [facility] Name Value Range Interpretation Description Data Sup porting Code Source(s) Document(s ) Albumin 3.8 g/dL [facility] [Mass/volume Hospital ] in Serum or Plasma ID Date Data Source [id number] 05/17/2019 08:37:00 PM [facility] Name Value Range Interpretation Description Data Sup porting Code Source(s) Document(s ) Protein 6.6 g/dL [facility] [Mass/volume Hospital ] in Serum or Plasma ID Date Data Source [id number] 05/17/2019 08:37:00 PM EST [facility] Name Value Range Interpretation Description Data Sup porting Code Source(s) Document(s ) Leukocytes 3.1 [facility] [#/volume] in 10*3/uL [facility] Blood by Automated count ID Date Data Source [id number] 05/17/2019 08:37:00 PM [facility] REFERENCE RANGES: NONE DETECTED <20 MG/DL NONE TO MILD EUPHORIA 20-49 MG/DL MILD EUPHORIA 50-99 MG/DL MODERATE EUPHORIA 100-149 MG/DL INTOXICATION 150-300 MG/DL Name Value Range Interpretation Description Data Sup porting Code Source(s) Document(s ) Ethanol < 20 [facility] [Mass/volume mg/dL Hospital ] in Serum or Plasma ID Date Data Source [id number] 05/17/2019 08:37:00 PM [facility] TEST RESULT IS A TOTAL TRICYCLIC VALUE.T RICYCLIC ANTIDEPRESSANT REFERENCE RANGE: AMITRIPTYLINE AND METABOLITE (NORTRIPTYL INE) TOTAL THERAPEUTIC: 75 - 225 NG/ML. TOTAL TOXIC: > 400 NG/ML. NORTRIPTYLINE ONLY TOTAL THERAPEUTIC: 50 - 150 NG/ML. TOTAL TOXIC: > 400 NG/ML. IMIPRAMINE AND METABOLITE (DESIPRAMINE) TOTAL THERAPEUTIC: 125 - 175 NG/ML. TOTAL TOXIC: > 400 NG/ML. Name Value Range Interpretation Description Data Sup porting Code Source(s) Document(s ) TRICYCLIC < 80 [facility] ANTIDEPRESSANT ng/mL Hospital ID Date Data Source [id number] 05/17/2019 08:37:00 PM [facility] REFERENCE RANGES: ANALGESIC: 0.0 - 10.0 MG/DL. ARTHRITIC THERAPY: 15.0 - 30.0 MG/DL. Name Value Range Interpretation Description Data Sup porting Code Source(s) Document(s ) Salicylates < 3.0 [facility] [Mass/volume] mg/dL Hospital in Serum or Plasma ID Date Data Source [id number] 05/17/2019 08:37:00 PM [facility] THERAPEUTIC RANGE: 10.0-30.0 UG/MLTOXIC RANGE: 4 HRS AFTER INGESTION >150 UG/ML 12 HRS AFTER INGESTION >35 UG/ML Name Value Range Interpretation Description Data Sup porting Code Source(s) Document(s ) ACETAMINOPHEN < 10.0 [facility] ug/mL Hospital ID Date Data Source [id number] 05/17/2019 08:37:00 PM [facility] ADA RECOMMENDATIONS: NON-DIABETES: 4.0-6.0% CONTROLLED DIABETES: 6.0-8.0% UNCONTROLLED DIABETE S: UP TO 20%RECOMMENDED ADA RESULT FOR THERAPY: HEMOGLOBIN A1C RESULT LESS GM N 7%.NOTE: METHOD CHANGE EFFECTIVE 11/11/14. Name Value Range Interpretation Description Data Sup porting Code Source(s) Document(s ) Hemoglobin 10.4 % [facility] A1c/Hemoglobin Hospital .total in Blood ID Date Data Source [id number] 05/17/2019 08:37:00 PM [facility] TEST PERFORMED BY [employer] UL[employer] SENSITIVE C[facility]A[employer] CHEMILUMINESCENCE METHOD. Name Value Range Interpretation Description Data Sup porting Code Source(s) Document(s ) Troponin 0.05 [facility] I.cardiac ng/mL Hospital [Mass/volume ] in Serum or Plasma ID Date Data Source [id number] 05/17/2019 08:37:00 PM [facility] Name Value Range Interpretation Description Data Sup porting Code Source(s) Document(s ) OSMOLALITY 309 [facility] (SERUM) mosm/kg Hospital ID Date Data Source [id number] 05/17/2019 08:37:00 PM [facility] Name Value Range Interpretation Description Data Sup porting Code Source(s) Document(s ) Phosphate 2.2 mg/dL [facility] [Mass/volume] Hospital in Serum or Plasma ID Date Data Source [id number] 05/17/2019 08:37:00 PM [facility] Name Value Range Interpretation Description Data Sup porting Code Source(s) Document(s ) Magnesium 1.3 mg/dL [facility] [Mass/volume] Hospital in Serum or Plasma ID Date Data Source [id number] 05/17/2019 08:37:00 PM EST [facility] Name Value Range Interpretation Description Data Sup porting Code Source(s) Document(s ) Aspartate 37 U/L White aminotransferase [facility] [Enzymatic Hospital activity/volume] in Serum or Plasma ID Date Data Source [id number] 05/17/2019 08:37:00 PM EST [facility] Name Value Range Interpretation Description Data Sup porting Code Source(s) Document(s ) Alanine 22 U/L [facility] aminotransferase [facility] [Enzymatic Hospital activity/volume] in Serum or Plasma ID Date Data Source [id number] 05/17/2019 08:37:00 PM EST [facility] Value Range Interpretation Description Data Sup porting Code Source(s) Document(s ) Alkaline 87 U/L [facility] phosphatase Hospital [Enzymatic activity/volume ] in Serum or Plasma ID Date Data Source [id number] 05/17/2019 08:37:00 PM [facility] Name Value Range Interpretation Description Data Sup porting Code Source(s) Document(s ) Bilirubin.t 1.4 mg/dL [facility] [Mass/volum e] in Serum or Plasma ID Date Data Source [id number] 05/17/2019 08:37:00 PM EST [facility] Name Value Range Interpretation Code Description Data Bryanna rce(s) Supporting Document(s ) Albumin/Glob 1.4 [facility] ulin [Mass Hospital Ratio] in Serum or Plasma ID Date Data Source [id number] 05/17/2019 08:37:00 PM EST [facility] Name Value Range Interpretation Description Data Sup porting Code Source(s) Document(s ) Albumin 3.8 g/dL [facility] [Mass/volume Hospital ] in Serum or Plasma ID Date Data Source [id number] 05/17/2019 08:37:00 PM [facility] Name Value Range Interpretation Description Data Sup porting Code Source(s) Document(s ) Protein 6.6 g/dL [facility] [Mass/volume Hospital ] in Serum or Plasma ID Date Data Source [id number] 05/17/2019 08:37:00 PM [facility] Name Value Range Interpretation Code Description Data Supporting Source(s) Document(s ) NUCLEATED RBCS 0.0 % [facility] (AUTO Hospital DIFF%)DIS ID Date Data Source [id number] 05/17/2019 08:37:[address] [facility] Value Range Interpretation Description Data Sup porting Code Source(s) Document(s ) Differential AUTOMATED [facility] cell count Hospital method - Blood ID Date Data Source [id number] 05/17/2019 08:37:00 PM [facility] Name Value Range Interpretation Description Data Sup porting Code Source(s) Document(s ) Immature 0.00 [facility] granulocytes 10*3/uL Hospital [#/volume] in Blood by Automated count ID Date Data Source [id number] 05/17/2019 08:37:00 PM [facility] Name Value Range Interpretation Description Data Sup porting Code Source(s) Document(s ) Basophils 0.04 [facility] [#/volume] in 10*3/uL Hospital Blood by Automated count ID Date Data Source [id number] 05/17/2019 08:37:00 PM [facility] Name Value Range Interpretation Description Data Sup porting Code Source(s) Document(s ) Eosinophils 0.05 [facility] [#/volume] in 10*3/uL Hospital Blood by Automated count ID Date Data Source [id number] 05/17/2019 08:37:00 PM EST [facility] Name Value Range Interpretation Description Data Sup porting Code Source(s) Document(s ) Monocytes 0.46 [facility] [#/volume] in 10*3/uL Hospital Blood by Automated count ID Date Data Source [id number] 05/17/2019 08:37:00 PM EST [facility] Value Range Interpretation Description Data Sup porting Code Source(s) Document(s ) Lymphocytes 1.38 [facility] [#/volume] in 10*3/uL Hospital Blood by Automated count ID Date Data Source [id number] 05/17/2019 08:37:00 PM EST [facility] Value Range Interpretation Description Data Sup porting Code Source(s) Document(s ) Neutrophils 1.12 [facility] [#/volume] in 10*3/uL [facility] Blood by Automated count ID Date Data Source [id number] 05/17/2019 08:37:00 PM EST [facility] Value Range Interpretation Description Data Sup porting Code Source(s) Document(s ) Nucleated 0.0 % [facility] erythrocytes/10 Hospital 0 leukocytes [Ratio] in Blood by Automated count ID Date Data Source [id number] 05/17/2019 08:37:00 PM EST [facility] Value Range Interpretation Description Data Sup porting Code Source(s) Document(s ) Immature 0.0 % [facility] granulocytes/10 Hospital 0 leukocytes in Blood by Automated count ID Date Data Source [id number] 05/17/2019 08:37:00 PM EST [facility] Value Range Interpretation Description Data Sup porting Code Source(s) Document(s ) Basophils/100 1.3 % [facility] leukocytes in Hospital Blood by Automated count ID Date Data Source [id number] 05/17/2019 08:37:00 PM EST [facility] Name Value Range Interpretation Description Data Sup porting Code Source(s) Document(s ) Eosinophils/100 1.6 % [facility] leukocytes in Hospital Blood by Automated count ID Date Data Source [id number] 05/17/2019 08:37:00 PM EST [facility] Name Value Range Interpretation Description Data Sup porting Code Source(s) Document(s ) Monocytes/100 15.1 % [facility] leukocytes in Hospital Blood by Automated count ID Date Data Source [id number] 05/17/2019 08:37:00 PM EST [facility] Name Value Range Interpretation Description Data Sup porting Code Source(s) Document(s ) Lymphocytes/10 45.2 % [facility] 0 leukocytes Hospital in Blood by Automated count ID Date Data Source [id number] 05/17/2019 08:37:00 PM EST [facility] Name Value Range Interpretation Description Data Sup porting Code Source(s) Document(s ) Neutrophils/10 36.8 % [facility] 0 leukocytes Hospital in Blood by Automated count ID Date Data Source [id number] 05/17/2019 08:37:00 PM EST [facility] Name Value Range Interpretation Description Data Sup porting Code Source(s) Document(s ) Platelet mean 12.8 fL [facility] volume Hospital [Entitic volume] in Blood by Automated count ID Date Data Source [id number] 05/17/2019 08:37:00 PM EST [facility] Name Value Range Interpretation Description Data Sup porting Code Source(s) Document(s ) Platelets 175 [facility] [#/volume] in 10*3/uL Hospital Blood by Automated count ID Date Data Source [id number] 05/17/2019 08:37:00 PM EST [facility] Value Range Interpretation Description Data Sup porting Code Source(s) Document(s ) Erythrocyte 12.8 % [facility] distribution Hospital width [Ratio] by Automated count ID Date Data Source [id number] 05/17/2019 08:37:[address] [facility] Value Range Interpretation Description Data Sup porting Code Source(s) Document(s ) Erythrocyte mean 34.6 [facility] corpuscular g/dL Hospital hemoglobin concentration [Mass/volume] by Automated count ID Date Data Source [id number] 05/17/2019 08:37:[address] [facility] Value Range Interpretation Description Data Sup porting Code Source(s) Document(s ) Erythrocyte 28.4 pg [facility] corpuscular hemoglobin [Entitic mass] by Automated count ID Date Data Source [id number] 05/17/2019 08:37:[address] [facility] Value Range Interpretation Description Data Sup porting Code Source(s) Document(s ) Erythrocyte 82.3 fL [facility] corpuscular volume [Entitic volume] by Automated count ID Date Data Source [id number] 05/17/2019 08:37:[address] [facility] Value Range Interpretation Description Data Sup porting Code Source(s) Document(s ) Hematocrit 37.6 % [facility] [Volume Hospital Fraction] of Blood by Automated count ID Date Data Source [id number] 05/17/2019 08:37:[address] [facility] Value Range Interpretation Description Data Sup porting Code Source(s) Document(s ) Hemoglobin 13.0 g/dL [facility] [Mass/volume] Hospital in Blood ID Date Data Source [id number] 05/17/2019 08:37:[address] [facility] Value Range Interpretation Description Data Sup porting Code Source(s) Document(s ) Erythrocytes 4.57 [facility] [#/volume] in 10*6/uL Hospital Blood by Automated count ID Date Data Source [id number] 04/29/2019 03:58:00 PM [facility] Name Value Range Interpretation Description Data Sup porting Code Source(s) Document(s ) GLUCOSE RN Notified [facility] ID Date Data Source [id number] 04/29/2019 03:58:00 PM [facility] Pediatric Allergist:BILL MORLEY Name Value Range Interpretation Description Data Sup porting Code Source(s) Document(s ) Glucose 106 mg/dL [facility] [Mass/volume] Hospital in Capillary blood by Glucometer ID Date Data Source [id number] 04/29/2019 12:14:00 PM [facility] Name Value Range Interpretation Description Data Sup porting Code Source(s) Document(s ) Calcium 9.6 mg/dL [facility] [Mass/volume Hospital ] in Serum or Plasma ID Date Data Source [id number] 04/29/2019 12:14:00 PM [facility] Name Value Range Interpretation Code Description Data Bryanna rce(s) Supporting Document(s ) Urea 23.8 [facility] nitrogen/Cre Hospital atinine [Mass Ratio] in Serum or Plasma ID Date Data Source [id number] 04/29/2019 12:14:00 PM [facility] Name Value Range Interpretation Description Data Sup porting Code Source(s) Document(s ) Creatinine 0.8 mg/dL [facility] [Mass/volume] Hospital in Serum or Plasma ID Date Data Source [id number] 04/29/2019 12:14:00 PM [facility] Name Value Range Interpretation Description Data Sup porting Code Source(s) Document(s ) Urea 19 mg/dL [facility] nitrogen Hospital [Mass/volume ] in Serum or Plasma ID Date Data Source [id number] 04/29/2019 12:14:00 PM [facility] Name Value Range Interpretation Code Description Data Bryanna rce(s) Supporting Document(s ) Anion gap in 8 [facility] Serum or [facility] Plasma ID Date Data Source [id number] 04/29/2019 12:14:00 PM [facility] Name Value Range Interpretation Description Data Sup porting Code Source(s) Document(s ) Carbon 31 mmol/L [facility] dioxide, Hospital total [Moles/volu me] in Serum or Plasma ID Date Data Source [id number] 04/29/2019 12:14:00 PM [facility] Name Value Range Interpretation Description Data Sup porting Code Source(s) Document(s ) Chloride 105 [facility] [Moles/volum mmol/L Hospital e] in Serum or Plasma ID Date Data Source [id number] 04/29/2019 12:14:00 PM [facility] MODERATE HEMOLYSIS Name Value Range Interpretation Description Data Sup porting Code Source(s) Document(s ) Potassium 4.2 [facility] [Moles/volume mmol/L Hospital ] in Serum or Plasma ID Date Data Source [id number] 04/29/2019 12:14:00 PM [facility] Name Value Range Interpretation Description Data Sup porting Code Source(s) Document(s ) Sodium 140 mmol/L [facility] [Moles/volu Hospital me] in Serum or Plasma ID Date Data Source [id number] 04/29/2019 12:14:00 PM [facility] NOTIFICATION AND READ BACK OF CRITICAL R ESULTS TO KIMBERLEY BOO RN-AC AT 1318 ON 04/29/19 BY Gena eKene.PLEASE NOTE FIDEL NGE IN CRITICAL GLUCOSE VALUES EFFECTIVE 04/22/17.REPORTED CRITICAL VALUES SHOULD B E INTERPRETED WITHIN CLINICAL CONTEXT. Name Value Range Interpretation Description Data Sup porting Code Source(s) Document(s ) Glucose 46 mg/dL [facility] [Mass/volume Hospital ] in Serum or Plasma ID Date Data Source [id number] 04/29/2019 12:14:[address] [facility] Value Range Interpretation Description Data Sup porting Code Source(s) Document(s ) Platelet mean 12.2 fL [facility] volume Hospital [Entitic volume] in Blood by Automated count ID Date Data Source [id number] 04/29/2019 12:14:[address] [facility] Value Range Interpretation Description Data Sup porting Code Source(s) Document(s ) Platelets 173 [facility] [#/volume] in 10*3/uL Hospital Blood by Automated count ID Date Data Source [id number] 04/29/2019 12:14:[address] [facility] Value Range Interpretation Description Data Sup porting Code Source(s) Document(s ) Erythrocyte 14.0 % [facility] Hospital width [Ratio] by Automated count ID Date Data Source [id number] 04/29/2019 12:14:[address] [facility] Value Range Interpretation Description Data Sup porting Code Source(s) Document(s ) Erythrocyte mean 33.1 [facility] corpuscular g/dL Hospital hemoglobin concentration [Mass/volume] by Automated count ID Date Data Source [id number] 04/29/2019 12:14:[address] [facility] Value Range Interpretation Description Data Sup porting Code Source(s) Document(s ) Erythrocyte 29.1 pg [facility] corpuscular hemoglobin [Entitic mass] by Automated count ID Date Data Source [id number] 04/29/2019 12:14:[address] [facility] Value Range Interpretation Description Data Sup porting Code Source(s) Document(s ) Erythrocyte 87.9 fL [facility] corpuscular volume [Entitic volume] by Automated count ID Date Data Source [id number] 04/29/2019 12:14:00 PM [facility] Name Value Range Interpretation Description Data Sup porting Code Source(s) Document(s ) Hematocrit 37.2 % [facility] [Volume Hospital Fraction] of Blood by Automated count ID Date Data Source [id number] 04/29/2019 12:14:00 PM [facility] Name Value Range Interpretation Description Data Sup porting Code Source(s) Document(s ) Hemoglobin 12.3 g/dL [facility] [Mass/volume] Hospital in Blood ID Date Data Source [id number] 04/29/2019 12:14:00 PM [facility] Name Value Range Interpretation Description Data Sup porting Code Source(s) Document(s ) Erythrocytes 4.23 [facility] [#/volume] in 10*6/uL Hospital Blood by Automated count ID Date Data Source [id number] 04/29/2019 12:14:00 PM [facility] Name Value Range Interpretation Description Data Sup porting Code Source(s) Document(s ) Leukocytes 5.9 [facility] [#/volume] in 10*3/uL Hospital Blood by Automated count ID Date Data Source [id number] 04/16/2019 02:05:00 PM [facility] Pediatric Allergist:ASHLEYONONA Name Value Range Interpretation Description Data Sup porting Code Source(s) Document(s ) Glucose 80 mg/dL [facility] [Mass/volume] Hospital in Capillary blood by Glucometer ID Date Data Source [id number] 04/16/2019 12:13:00 PM [facility] Name Value Range Interpretation Description Data Sup porting Code Source(s) Document(s ) Leukocyte NEGATIVE [facility] Hospital [Presence] in Urine by Test strip ID Date Data Source [id number] 04/16/2019 12:13:00 PM [facility] Name Value Range Interpretation Description Data Sup porting Code Source(s) Document(s ) URINE NEGATIVE [facility] NITRITES Hospital ID Date Data Source [id number] 04/16/2019 12:13:00 PM [facility] Name Value Range Interpretation Description Data Sup porting Code Source(s) Document(s ) Erythrocytes NEGATIVE [facility] [#/volume] in Hospital Urine by Test strip ID Date Data Source [id number] 04/16/2019 12:13:[address] [facility] Value Range Interpretation Code Description Data Bryanna rce(s) Supporting Document(s ) Bilirubin. NEGATIVE [facility] total Hospital [Presence] in Urine by Test strip ID Date Data Source [id number] 04/16/2019 12:13:[address] [facility] Value Range Interpretation Description Data Sup porting Code Source(s) Document(s ) Urobilinogen 0.2 [facility] [Units/volume] mg/dL Hospital in Urine by Test strip ID Date Data Source [id number] 04/16/2019 12:13:[address] [facility] Value Range Interpretation Description Data Sup porting Code Source(s) Document(s ) Ketones NEGATIVE [facility] [Mass/volume Hospital ] in Urine by Test strip ID Date Data Source [id number] 04/16/2019 12:13:00 PM [facility] Name Value Range Interpretation Code Description Data Bryanna rce(s) Supporting Document(s ) Glucose 3+ [facility] [Mass/volume Hospital ] in Urine by Test strip ID Date Data Source [id number] 04/16/2019 12:13:00 PM EST [facility] Name Value Range Interpretation Description Data Sup porting Code Source(s) Document(s ) Protein NEGATIVE [facility] [Presence] Hospital in Urine by Test strip ID Date Data Source [id number] 04/16/2019 12:13:00 PM EST [facility] Name Value Range Interpretation Code Description Data Bryanna rce(s) Supporting Document(s ) pH of Urine 7.0 [facility] by Test Hospital strip ID Date Data Source [id number] 04/16/2019 12:13:00 PM EST [facility] Name Value Range Interpretation Code Description Data Supporting Source(s) Document(s ) Specific 1.036 [facility] gravity of Hospital Urine by Test strip ID Date Data Source [id number] 04/16/2019 12:13:00 PM EST [facility] Name Value Range Interpretation Description Data Sup porting Code Source(s) Document(s ) Clarity in Urine CLEAR [facility] by Refractometry [facility] automated ID Date Data Source [id number] 04/16/2019 12:13:00 PM EST [facility] Name Value Range Interpretation Code Description Data Bryanna rce(s) Supporting Document(s ) Color of YELLOW [facility] Urine Hospital ID Date Data Source [id number] 04/16/2019 12:13:00 PM EST [facility] Name Value Range Interpretation Description Data Sup porting Code Source(s) Document(s ) Leukocyte NEGATIVE [facility] esterase Hospital [Presence] in Urine by Test strip ID Date Data Source [id number] 04/16/2019 12:13:00 PM EST [facility] Name Value Range Interpretation Description Data Sup porting Code Source(s) Document(s ) URINE NEGATIVE [facility] NITRITES Hospital ID Date Data Source [id number] 04/16/2019 12:13:00 PM EST [facility] Name Value Range Interpretation Description Data Sup porting Code Source(s) Document(s ) Erythrocytes NEGATIVE [facility] [#/volume] in Hospital Urine by Test strip ID Date Data Source [id number] 04/16/2019 12:13:00 PM EST [facility] Name Value Range Interpretation Code Description Data Bryanna rce(s) Supporting Document(s ) Bilirubin. NEGATIVE [facility] total [facility] [Presence] in Urine by Test strip ID Date Data Source [id number] 04/16/2019 12:13:00 PM EST [facility] Name Value Range Interpretation Description Data Sup porting Code Source(s) Document(s ) Urobilinogen 0.2 [facility] [Units/volume] mg/dL Hospital in Urine by Test strip ID Date Data Source [id number] 04/16/2019 12:13:00 PM EST [facility] Name Value Range Interpretation Description Data Sup porting Code Source(s) Document(s ) Ketones NEGATIVE [facility] [Mass/volume Hospital ] in Urine by Test strip ID Date Data Source [id number] 04/16/2019 12:13:00 PM EST [facility] Name Value Range Interpretation Code Description Data Bryanna rce(s) Supporting Document(s ) Glucose 3+ [facility] [Mass/volume Hospital ] in Urine by Test strip ID Date Data Source [id number] 04/16/2019 12:13:00 PM EST [facility] Name Value Range Interpretation Description Data Sup porting Code Source(s) Document(s ) Protein NEGATIVE [facility] [Presence] Hospital in Urine by Test strip ID Date Data Source [id number] 04/16/2019 12:13:00 PM EST [facility] Name Value Range Interpretation Code Description Data Bryanna rce(s) Supporting Document(s ) pH of Urine 7.0 [facility] by Test Hospital strip ID Date Data Source [id number] 04/16/2019 12:13:00 PM EST [facility] Name Value Range Interpretation Code Description Data Supporting Source(s) Document(s ) Specific 1.036 [facility] gravity of Hospital Urine by Test strip ID Date Data Source [id number] 04/16/2019 12:13:[address] [facility] Value Range Interpretation Description Data Sup porting Code Source(s) Document(s ) Clarity in Urine CLEAR [facility] by Refractometry [facility] automated ID Date Data Source [id number] 04/16/2019 12:13:[address] [facility] Value Range Interpretation Code Description Data Bryanna rce(s) Supporting Document(s ) Color of YELLOW [facility] Urine Hospital ID Date Data Source [id number] 04/16/2019 11:33:00 AM [facility] Name Value Range Interpretation Description Data Sup porting Code Source(s) Document(s ) Immature 0.02 [facility] granulocytes 10*3/uL Hospital [#/volume] in Blood by Automated count ID Date Data Source [id number] 04/16/2019 11:33:00 AM [facility] Name Value Range Interpretation Description Data Sup porting Code Source(s) Document(s ) Basophils 0.04 [facility] [#/volume] in 10*3/uL Hospital Blood by Automated count ID Date Data Source [id number] 04/16/2019 11:33:00 AM EST [facility] Name Value Range Interpretation Description Data Sup porting Code Source(s) Document(s ) Eosinophils 0.11 [facility] [#/volume] in 10*3/uL Hospital Blood by Automated count ID Date Data Source [id number] 04/16/2019 11:33:00 AM EST [facility] Name Value Range Interpretation Description Data Sup porting Code Source(s) Document(s ) Monocytes 0.60 [facility] [#/volume] in 10*3/uL Hospital Blood by Automated count ID Date Data Source [id number] 04/16/2019 11:33:00 AM EST [facility] Name Value Range Interpretation Description Data Sup porting Code Source(s) Document(s ) Lymphocytes 1.42 [facility] [#/volume] in 10*3/uL Hospital Blood by Automated count ID Date Data Source [id number] 04/16/2019 11:33:00 AM EST [facility] Value Range Interpretation Description Data Sup porting Code Source(s) Document(s ) Neutrophils 3.35 [facility] [#/volume] in 10*3/uL [facility] Blood by Automated count ID Date Data Source [id number] 04/16/2019 11:33:00 AM EST [facility] Value Range Interpretation Description Data Sup porting Code Source(s) Document(s ) Nucleated 0.0 % [facility] erythrocytes/10 Hospital 0 leukocytes [Ratio] in Blood by Automated count ID Date Data Source [id number] 04/16/2019 11:33:00 AM EST [facility] Value Range Interpretation Description Data Sup porting Code Source(s) Document(s ) Immature 0.4 % [facility] granulocytes/10 Hospital 0 leukocytes in Blood by Automated count ID Date Data Source [id number] 04/16/2019 11:33:00 AM EST [facility] Value Range Interpretation Description Data Sup porting Code Source(s) Document(s ) Basophils/100 0.7 % [facility] leukocytes in Hospital Blood by Automated count ID Date Data Source [id number] 04/16/2019 11:33:00 AM EST [facility] Value Range Interpretation Description Data Sup porting Code Source(s) Document(s ) Eosinophils/100 2.0 % [facility] leukocytes in Hospital Blood by Automated count ID Date Data Source [id number] 04/16/2019 11:33:00 AM EST [facility] Name Value Range Interpretation Description Data Sup porting Code Source(s) Document(s ) Monocytes/100 10.8 % [facility] leukocytes in Hospital Blood by Automated count ID Date Data Source [id number] 04/16/2019 11:33:00 AM EST [facility] Name Value Range Interpretation Description Data Sup porting Code Source(s) Document(s ) Lymphocytes/10 25.6 % [facility] 0 leukocytes Hospital in Blood by Automated count ID Date Data Source [id number] 04/16/2019 11:33:00 AM EST [facility] Name Value Range Interpretation Description Data Sup porting Code Source(s) Document(s ) Neutrophils/10 60.5 % [facility] 0 leukocytes Hospital in Blood by Automated count ID Date Data Source [id number] 04/16/2019 11:33:00 AM EST [facility] Name Value Range Interpretation Description Data Sup porting Code Source(s) Document(s ) Calcium 8.5 mg/dL [facility] [Mass/volume Hospital ] in Serum or Plasma ID Date Data Source [id number] 04/16/2019 11:33:00 AM EST [facility] Name Value Range Interpretation Code Description Data Bryanna rce(s) Supporting Document(s ) Urea 14.3 [facility] nitrogen/Cre Hospital atinine [Mass Ratio] in Serum or Plasma ID Date Data Source [id number] 04/16/2019 11:33:00 AM EST [facility] Name Value Range Interpretation Description Data Sup porting Code Source(s) Document(s ) Creatinine 0.7 mg/dL [facility] [Mass/volume] Hospital in Serum or Plasma ID Date Data Source [id number] 04/16/2019 11:33:00 AM EST [facility] Name Value Range Interpretation Description Data Sup porting Code Source(s) Document(s ) Urea 10 mg/dL [facility] nitrogen Hospital [Mass/volume ] in Serum or Plasma ID Date Data Source [id number] 04/16/2019 11:33:00 AM EST [facility] Name Value Range Interpretation Code Description Data Bryanna rce(s) Supporting Document(s ) Anion gap in 12 [facility] Serum or Hospital Plasma ID Date Data Source [id number] 04/16/2019 11:33:00 AM [facility] Name Value Range Interpretation Description Data Sup porting Code Source(s) Document(s ) Carbon 29 mmol/L [facility] dioxide, Hospital total [Moles/volu me] in Serum or Plasma ID Date Data Source [id number] 04/16/2019 11:33:00 AM EST [facility] Name Value Range Interpretation Description Data Sup porting Code Source(s) Document(s ) Chloride 101 [facility] [Moles/volum mmol/L Hospital e] in Serum or Plasma ID Date Data Source [id number] 04/16/2019 11:33:00 AM EST [facility] Name Value Range Interpretation Description Data Sup porting Code Source(s) Document(s ) Potassium 4.5 [facility] [Moles/volume mmol/L Hospital ] in Serum or Plasma ID Date Data Source [id number] 04/16/2019 11:33:00 AM [facility] Name Value Range Interpretation Description Data Sup porting Code Source(s) Document(s ) Sodium 137 mmol/L [facility] [Moles/volu Hospital me] in Serum or Plasma ID Date Data Source [id number] 04/16/2019 11:33:00 AM [facility] NOTIFICATION AND READ BACK OF CRITICAL R ESULTS TO ABILIO PALMER RN () AT 1227 ON 04/16/19 BY Elle Vizcarra.PLEASE NOTE CHANGE IN CRITICAL GLUCOSE VALUES EFFECTIVE 04/22/17.REPORTED CRITICAL VALUES SHOULD B E INTERPRETED WITHIN CLINICAL CONTEXT. Name Value Range Interpretation Description Data Sup porting Code Source(s) Document(s ) Glucose 413 mg/dL [facility] [Mass/volume Hospital ] in Serum or Plasma ID Date Data Source [id number] 04/16/2019 11:33:00 AM [facility] Name Value Range Interpretation Code Description Data Supporting Source(s) Document(s ) NUCLEATED RBCS 0.0 % [facility] (AUTO Hospital DIFF%)DIS ID Date Data Source [id number] 04/16/2019 11:33:00 AM [facility] Name Value Range Interpretation Description Data Sup porting Code Source(s) Document(s ) Differential AUTOMATED [facility] cell count [facility] method - Blood ID Date Data Source [id number] 04/16/2019 11:33:00 AM [facility] Name Value Range Interpretation Description Data Sup porting Code Source(s) Document(s ) Immature 0.02 [facility] granulocytes 10*3/uL Hospital [#/volume] in Blood by Automated count ID Date Data Source [id number] 04/16/2019 11:33:00 AM [facility] Name Value Range Interpretation Description Data Sup porting Code Source(s) Document(s ) Basophils 0.04 [facility] [#/volume] in 10*3/uL Hospital Blood by Automated count ID Date Data Source [id number] 04/16/2019 11:33:00 AM [facility] Name Value Range Interpretation Description Data Sup porting Code Source(s) Document(s ) Eosinophils 0.11 [facility] [#/volume] in 10*3/uL Hospital Blood by Automated count ID Date Data Source [id number] 04/16/2019 11:33:00 AM EST [facility] Name Value Range Interpretation Description Data Sup porting Code Source(s) Document(s ) Monocytes 0.60 [facility] [#/volume] in 10*3/uL Hospital Blood by Automated count ID Date Data Source [id number] 04/16/2019 11:33:00 AM EST [facility] Value Range Interpretation Description Data Sup porting Code Source(s) Document(s ) Lymphocytes 1.42 [facility] [#/volume] in 10*3/uL [facility] Blood by Automated count ID Date Data Source [id number] 04/16/2019 11:33:[address] [facility] Value Range Interpretation Description Data Sup porting Code Source(s) Document(s ) Neutrophils 3.35 [facility] [#/volume] in 10*3/uL [facility] Blood by Automated count ID Date Data Source [id number] 04/16/2019 11:33:[address] [facility] Value Range Interpretation Description Data Sup porting Code Source(s) Document(s ) Nucleated 0.0 % [facility] erythrocytes/10 Hospital 0 leukocytes [Ratio] in Blood by Automated count ID Date Data Source [id number] 04/16/2019 11:33:[address] [facility] Value Range Interpretation Description Data Sup porting Code Source(s) Document(s ) Immature 0.4 % [facility] granulocytes/10 Hospital 0 leukocytes in Blood by Automated count ID Date Data Source [id number] 04/16/2019 11:33:[address] [facility] Value Range Interpretation Description Data Sup porting Code Source(s) Document(s ) Basophils/100 0.7 % [facility] leukocytes in Hospital Blood by Automated count ID Date Data Source [id number] 04/16/2019 11:33:00 AM EST [facility] Name Value Range Interpretation Description Data Sup porting Code Source(s) Document(s ) Eosinophils/100 2.0 % [facility] leukocytes in Hospital Blood by Automated count ID Date Data Source [id number] 04/16/2019 11:33:00 AM EST [facility] Name Value Range Interpretation Description Data Sup porting Code Source(s) Document(s ) Monocytes/100 10.8 % [facility] leukocytes in Hospital Blood by Automated count ID Date Data Source [id number] 04/16/2019 11:33:00 AM EST [facility] Name Value Range Interpretation Description Data Sup porting Code Source(s) Document(s ) Lymphocytes/10 25.6 % [facility] 0 leukocytes Hospital in Blood by Automated count ID Date Data Source [id number] 04/16/2019 11:33:00 AM EST [facility] Name Value Range Interpretation Description Data Sup porting Code Source(s) Document(s ) Neutrophils/10 60.5 % [facility] 0 leukocytes Hospital in Blood by Automated count ID Date Data Source [id number] 04/16/2019 11:33:00 AM EST [facility] Name Value Range Interpretation Description Data Sup porting Code Source(s) Document(s ) Platelet mean 11.1 fL [facility] volume Hospital [Entitic volume] in Blood by Automated count ID Date Data Source [id number] 04/16/2019 11:33:00 AM EST [facility] Name Value Range Interpretation Description Data Sup porting Code Source(s) Document(s ) Platelets 195 [facility] [#/volume] in 10*3/uL Hospital Blood by Automated count ID Date Data Source [id number] 04/16/2019 11:33:00 AM [facility] Name Value Range Interpretation Description Data Sup porting Code Source(s) Document(s ) Erythrocyte 13.7 % [facility] Hospital width [Ratio] by Automated count ID Date Data Source [id number] 04/16/2019 11:33:[address] [facility] Value Range Interpretation Description Data Sup porting Code Source(s) Document(s ) Erythrocyte mean 32.8 [facility] corpuscular g/dL Hospital hemoglobin concentration [Mass/volume] by Automated count ID Date Data Source [id number] 04/16/2019 11:33:[address] [facility] Value Range Interpretation Description Data Sup porting Code Source(s) Document(s ) Erythrocyte 29.5 pg [facility] corpuscular hemoglobin [Entitic mass] by Automated count ID Date Data Source [id number] 04/16/2019 11:33:[address] [facility] Value Range Interpretation Description Data Sup porting Code Source(s) Document(s ) Erythrocyte 89.9 fL [facility] corpuscular volume [Entitic volume] by Automated count ID Date Data Source [id number] 04/16/2019 11:33:[address] [facility] Value Range Interpretation Description Data Sup porting Code Source(s) Document(s ) Hematocrit 38.4 % [facility] [Volume Hospital Fraction] of Blood by Automated count ID Date Data Source [id number] 04/16/2019 11:33:[address] [facility] Value Range Interpretation Description Data Sup porting Code Source(s) Document(s ) Hemoglobin 12.6 g/dL [facility] [Mass/volume] Hospital in Blood ID Date Data Source [id number] 04/16/2019 11:33:[address] [facility] Value Range Interpretation Description Data Sup porting Code Source(s) Document(s ) Erythrocytes 4.27 [facility] [#/volume] in 10*6/uL Hospital Blood by Automated count ID Date Data Source [id number] 04/16/2019 11:33:00 AM [facility] Name Value Range Interpretation Description Data Sup porting Code Source(s) Document(s ) Leukocytes 5.5 [facility] [#/volume] in 10*3/uL Hospital Blood by Automated count ID Date Data Source [id number] 04/16/2019 11:33:00 AM [facility] Name Value Range Interpretation Code Description Data Supporting Source(s) Document(s ) NUCLEATED RBCS 0.0 % [facility] (AUTO Hospital DIFF%)DIS ID Date Data Source [id number] 04/16/2019 11:33:00 AM [facility] Name Value Range Interpretation Description Data Sup porting Code Source(s) Document(s ) Differential AUTOMATED [facility] cell count [facility] method - Blood ID Date Data Source [id number] 04/07/2019 02:30:00 AM [facility] Pediatric Allergist:PACO MIRANDA Name Value Range Interpretation Description Data Sup porting Code Source(s) Document(s ) Glucose 373 mg/dL [facility] [Mass/volume] Hospital in Capillary blood by Glucometer ID Date Data Source [id number] 04/07/2019 02:29:00 AM [facility] Name Value Range Interpretation Description Data Sup porting Code Source(s) Document(s ) Epithelial 1+ [facility] cells.squamous [facility] [#/area] in Urine sediment by Microscopy high power field ID Date Data Source [id number] 04/07/2019 02:29:00 AM [facility] Name Value Range Interpretation Description Data Sup porting Code Source(s) Document(s ) Erythrocytes 0-3 [facility] [#/area] in /[HPF] Hospital Urine sediment by Microscopy high power field ID Date Data Source [id number] 04/07/2019 02:29:00 AM [facility] Name Value Range Interpretation Description Data Sup porting Code Source(s) Document(s ) Leukocytes 0-3 [facility] [#/area] in /[HPF] Hospital Urine sediment by Microscopy high power field ID Date Data Source [id number] 04/07/2019 02:29:00 AM [facility] Name Value Range Interpretation Description Data Sup porting Code Source(s) Document(s ) Epithelial 1+ [facility] cells.[facility] [#/area] in Urine sediment by Microscopy high power field ID Date Data Source [id number] 04/07/2019 02:29:00 AM [facility] Name Value Range Interpretation Description Data Sup porting Code Source(s) Document(s ) Erythrocytes 0-3 [facility] [#/area] in /[HPF] Hospital Urine sediment by Microscopy high power field ID Date Data Source [id number] 04/07/2019 02:29:[address] [facility] Value Range Interpretation Description Data Sup porting Code Source(s) Document(s ) Leukocytes 0-3 [facility] [#/area] in /[HPF] Hospital Urine sediment by Microscopy high power field ID Date Data Source [id number] 04/07/2019 02:29:00 AM [facility] Name Value Range Interpretation Description Data Sup porting Code Source(s) Document(s ) Leukocyte NEGATIVE [facility] esterase Hospital [Presence] in Urine by Test strip ID Date Data Source [id number] 04/07/2019 02:29:00 AM [facility] Name Value Range Interpretation Description Data Sup porting Code Source(s) Document(s ) URINE NEGATIVE [facility] NITRITES Hospital ID Date Data Source [id number] 04/07/2019 02:29:00 AM [facility] Name Value Range Interpretation Description Data Sup porting Code Source(s) Document(s ) Erythrocytes NEGATIVE [facility] [#/volume] in Hospital Urine by Test strip ID Date Data Source [id number] 04/07/2019 02:29:00 AM [facility] Name Value Range Interpretation Code Description Data Bryanna rce(s) Supporting Document(s ) Bilirubin. NEGATIVE [facility] total Hospital [Presence] in Urine by Test strip ID Date Data Source [id number] 04/07/2019 02:29:00 AM [facility] Name Value Range Interpretation Description Data Sup porting Code Source(s) Document(s ) Urobilinogen 1.0 [facility] [Units/volume] mg/dL Hospital in Urine by Test strip ID Date Data Source [id number] 04/07/2019 02:29:00 AM [facility] [facility] Name Value Range Interpretation Description Data Sup porting Code Source(s) Document(s ) Ketones NEGATIVE [facility] [[facility] ] in Urine by Test strip ID Date Data Source [id number] 04/07/2019 02:29:00 AM [facility] Name Value Range Interpretation Code Description Data Bryanna rce(s) Supporting Document(s ) Glucose 3+ [facility] [[facility] ] in Urine by Test strip ID Date Data Source [id number] 04/07/2019 02:29:00 AM [facility] Name Value Range Interpretation Description Data Sup porting Code Source(s) Document(s ) Protein NEGATIVE [facility] in Urine by Test strip ID Date Data Source [id number] 04/07/2019 02:29:00 AM [facility] Name Value Range Interpretation Code Description Data Bryanna rce(s) Supporting Document(s ) pH of Urine 6.5 [facility] by Test Hospital strip ID Date Data Source [id number] 04/07/2019 02:29:00 AM [facility] Name Value Range Interpretation Code Description Data Supporting Source(s) Document(s ) Specific 1.035 [facility] gravity of Hospital Urine by Test strip ID Date Data Source [id number] 04/07/2019 02:29:00 AM [facility] Name Value Range Interpretation Description Data Sup porting Code Source(s) Document(s ) Clarity in Urine CLOUDY [facility] by Refractometry Hospital automated ID Date Data Source [id number] 04/07/2019 02:29:[address] [facility] Value Range Interpretation Code Description Data Bryanna rce(s) Supporting Document(s ) Color of YELLOW [facility] Urine Hospital ID Date Data Source [id number] 04/06/2019 10:02:00 PM [facility] Name Value Range Interpretation Description Data Sup porting Code Source(s) Document(s ) Thyroxine 0.7 ng/dL [facility] (T4[facility] free Hospital [Mass/volume] in Serum or Plasma ID Date Data Source [id number] 04/06/2019 10:02:00 PM [facility] Name Value Range Interpretation Description Data Sup porting Code Source(s) Document(s ) Thyrotropin 1.291 [facility] [Units/volume] u[IU]/mL Hospital in Serum or Plasma by Detection limit <= 0.005 mIU/L ID Date Data Source [id number] 04/06/2019 10:02:00 PM [facility] UNITS ARE IN ml/min/1.73m2.IF PATIENT IS -[place] R[place], MULTIPLY REPORTED RESULT BY 1.21. Name Value Range Interpretation Description Data Sup porting Code Source(s) Document(s ) Glomerular > 60 [facility] filtration mL/min Hospital rate/1.73 sq M.predicted [Volume Rate/Area] in Serum or Plasma by Creatinine-bas ed formula (MDRD) ID Date Data Source [id number] 04/06/2019 10:02:00 PM [facility] Name Value Range Interpretation Description Data Sup porting Code Source(s) Document(s ) Thyroxine 0.7 ng/dL [facility] (T4) free Hospital [Mass/volume] in Serum or Plasma ID Date Data Source [id number] 04/06/2019 10:02:00 PM [facility] Name Value Range Interpretation Description Data Sup porting Code Source(s) Document(s ) Thyrotropin 1.291 [facility] [Units/volume] u[IU]/mL Hospital in Serum or Plasma by Detection limit <= 0.005 mIU/L ID Date Data Source [id number] 04/06/2019 10:02:00 PM [facility] UNITS ARE IN ml/min/1.73m2.IF PATIENT IS -[place], MULTIPLY REPORTED RESULT BY 1.21. Name Value Range Interpretation Description Data Sup porting Code Source(s) Document(s ) Glomerular > 60 [facility] filtration mL/min Hospital rate/1.73 sq M.predicted [Volume Rate/Area] in Serum or Plasma by Creatinine-bas ed formula (MDRD) ID Date Data Source [id number] 04/06/2019 10:02:00 PM [facility] Name Value Range Interpretation Description Data Sup porting Code Source(s) Document(s ) Thyroxine 0.7 ng/dL [facility] (T4) free Hospital [Mass/volume] in Serum or Plasma ID Date Data Source [id number] 04/06/2019 10:02:00 PM [facility] Name Value Range Interpretation Description Data Sup porting Code Source(s) Document(s ) Thyrotropin 1.291 [facility] [Units/volume] u[IU]/mL Hospital in Serum or Plasma by Detection limit <= 0.005 mIU/L ID Date Data Source [id number] 04/06/2019 10:02:00 PM [facility] Name Value Range Interpretation Description Data Sup porting Code Source(s) Document(s ) Calcium 8.9 mg/dL [facility] [[facility] ] in Serum or Plasma ID Date Data Source [id number] 04/06/2019 10:02:00 PM [facility] UNITS ARE IN ml/min/1.73m2.IF PATIENT IS -[place], MULTIPLY REPORTED RESULT BY 1.21. Name Value Range Interpretation Description Data Sup porting Code Source(s) Document(s ) Glomerular > 60 [facility] filtration mL/min Hospital rate/1.73 sq M.predicted [Volume Rate/Area] in Serum or Plasma by Creatinine-bas ed formula (MDRD) ID Date Data Source [id number] 04/06/2019 10:02:00 PM [facility] Name Value Range Interpretation Code Description Data Bryanna rce(s) Supporting Document(s ) Urea 11.7 [facility] nitrogen/Cre Hospital atinine [Mass Ratio] in Serum or Plasma ID Date Data Source [id number] 04/06/2019 10:02:00 PM [facility] Name Value Range Interpretation Description Data Sup porting Code Source(s) Document(s ) Creatinine 0.6 mg/dL [facility] [Mass/volume] Hospital in Serum or Plasma ID Date Data Source [id number] 04/06/2019 10:02:00 PM [facility] Name Value Range Interpretation Description Data Sup porting Code Source(s) Document(s ) Urea nitrogen 7 mg/dL [facility] [Mass[facility] Hospital in Serum or Plasma ID Date Data Source [id number] 04/06/2019 10:02:00 PM EST [facility] Name Value Range Interpretation Code Description Data Bryanna rce(s) Supporting Document(s ) Anion gap in 9 [facility] Serum or Hospital Plasma ID Date Data Source [id number] 04/06/2019 10:02:00 PM EST [facility] Name Value Range Interpretation Description Data Sup porting Code Source(s) Document(s ) Carbon 30 mmol/L [facility] dioxide, Hospital total [Moles/volu me] in Serum or Plasma ID Date Data Source [id number] 04/06/2019 10:02:00 PM EST [facility] Name Value Range Interpretation Description Data Sup porting Code Source(s) Document(s ) Chloride 107 [facility] [Moles/volum mmol/L Hospital e] in Serum or Plasma ID Date Data Source [id number] 04/06/2019 10:02:00 PM EST [facility] Name Value Range Interpretation Description Data Sup porting Code Source(s) Document(s ) Potassium 3.3 [facility] [Moles/volume mmol/L Hospital ] in Serum or Plasma ID Date Data Source [id number] 04/06/2019 10:02:00 PM EST [facility] Name Value Range Interpretation Description Data Sup porting Code Source(s) Document(s ) Sodium 143 mmol/L [facility] [Moles/volu Hospital me] in Serum or Plasma ID Date Data Source [id number] 04/06/2019 10:02:00 PM EST [facility] Name Value Range Interpretation Description Data Sup porting Code Source(s) Document(s ) Glucose 64 mg/dL [facility] [[facility] ] in Serum or Plasma ID Date Data Source [id number] 04/06/2019 10:02:00 PM [facility] Name Value Range Interpretation Description Data Sup porting Code Source(s) Document(s ) Differential AUTOMATED [facility] cell count Hospital method - Blood ID Date Data Source [id number] 04/06/2019 10:02:00 PM [facility] Name Value Range Interpretation Description Data Sup porting Code Source(s) Document(s ) Immature 0.01 [facility] granulocytes 10*3/uL Hospital [#/volume] in Blood by Automated count ID Date Data Source [id number] 04/06/2019 10:02:00 PM [facility] Name Value Range Interpretation Description Data Sup porting Code Source(s) Document(s ) Basophils 0.04 [facility] [#/volume] in 10*3/uL [facility] Blood by Automated count ID Date Data Source [id number] 04/06/2019 10:02:00 PM [facility] Name Value Range Interpretation Description Data Sup porting Code Source(s) Document(s ) Eosinophils 0.12 [facility] [#/volume] in 10*3/uL Hospital Blood by Automated count ID Date Data Source [id number] 04/06/2019 10:02:00 PM [facility] Name Value Range Interpretation Description Data Sup porting Code Source(s) Document(s ) Monocytes 0.54 [facility] [#/volume] in 10*3/uL Hospital Blood by Automated count ID Date Data Source [id number] 04/06/2019 10:02:00 PM [facility] Name Value Range Interpretation Description Data Sup porting Code Source(s) Document(s ) Lymphocytes 1.75 [facility] [#/volume] in 10*3/uL Hospital Blood by Automated count ID Date Data Source [id number] 04/06/2019 10:02:00 PM [facility] Name Value Range Interpretation Description Data Sup porting Code Source(s) Document(s ) Neutrophils 2.75 [facility] [#/volume] in 10*3/uL Hospital Blood by Automated count ID Date Data Source [id number] 04/06/2019 10:02:[address] [facility] Value Range Interpretation Description Data Sup porting Code Source(s) Document(s ) Nucleated 0.0 % [facility] erythrocytes/10 Hospital 0 leukocytes [Ratio] in Blood by Automated count ID Date Data Source [id number] 04/06/2019 10:02:[address] [facility] Value Range Interpretation Description Data Sup porting Code Source(s) Document(s ) Immature 0.2 % [facility] granulocytes/10 Hospital 0 leukocytes in Blood by Automated count ID Date Data Source [id number] 04/06/2019 10:02:[address] [facility] Value Range Interpretation Description Data Sup porting Code Source(s) Document(s ) Basophils/100 0.8 % [facility] leukocytes in [facility] Blood by Automated count ID Date Data Source [id number] 04/06/2019 10:02:[address] [facility] Value Range Interpretation Description Data Sup porting Code Source(s) Document(s ) Eosinophils/100 2.3 % [facility] leukocytes in [facility] Blood by Automated count ID Date Data Source [id number] 04/06/2019 10:02:[address] [facility] Value Range Interpretation Description Data Sup porting Code Source(s) Document(s ) Monocytes/100 10.4 % [facility] leukocytes in Hospital Blood by Automated count ID Date Data Source [id number] 04/06/2019 10:02:[address] [facility] Value Range Interpretation Description Data Sup porting Code Source(s) Document(s ) Lymphocytes/10 33.6 % [facility] 0 leukocytes Hospital in Blood by Automated count ID Date Data Source [id number] 04/06/2019 10:02:00 PM [facility] Name Value Range Interpretation Description Data Sup porting Code Source(s) Document(s ) Neutrophils/10 52.7 % [facility] 0 leukocytes Hospital in Blood by Automated count ID Date Data Source [id number] 04/06/2019 10:02:00 PM [facility] Name Value Range Interpretation Description Data Sup porting Code Source(s) Document(s ) Platelet mean 11.5 fL [facility] volume Hospital [Entitic volume] in Blood by Automated count ID Date Data Source [id number] 04/06/2019 10:02:[address] [facility] Value Range Interpretation Description Data Sup porting Code Source(s) Document(s ) Platelets 248 [facility] [#/volume] in 10*3/uL Hospital Blood by Automated count ID Date Data Source [id number] 04/06/2019 10:02:00 PM [facility] Name Value Range Interpretation Description Data Sup porting Code Source(s) Document(s ) Erythrocyte 13.8 % [facility] Hospital width [Ratio] by Automated count ID Date Data Source [id number] 04/06/2019 10:02:00 PM [facility] Name Value Range Interpretation Description Data Sup porting Code Source(s) Document(s ) Erythrocyte mean 32.1 [facility] corpuscular g/dL Hospital hemoglobin concentration [Mass/volume] by Automated count ID Date Data Source [id number] 04/06/2019 10:02:00 PM [facility] Name Value Range Interpretation Description Data Sup porting Code Source(s) Document(s ) Erythrocyte 29.4 pg [facility] mean Hospital corpuscular hemoglobin [Entitic mass] by Automated count ID Date Data Source [id number] 04/06/2019 10:02:00 PM [facility] Name Value Range Interpretation Description Data Sup porting Code Source(s) Document(s ) Erythrocyte 91.8 fL [facility] mean Hospital corpuscular volume [Entitic volume] by Automated count ID Date Data Source [id number] 04/06/2019 10:02:00 PM [facility] Name Value Range Interpretation Description Data Sup porting Code Source(s) Document(s ) Hematocrit 39.3 % [facility] [Volume Hospital Fraction] of Blood by Automated count ID Date Data Source [id number] 04/06/2019 10:02:[address] [facility] Value Range Interpretation Description Data Sup porting Code Source(s) Document(s ) Hemoglobin 12.6 g/dL [facility] [Mass/volume] Hospital in Blood ID Date Data Source [id number] 04/06/2019 10:02:00 PM [facility] Name Value Range Interpretation Description Data Sup porting Code Source(s) Document(s ) Erythrocytes 4.28 [facility] [#/volume] in 10*6/uL Hospital Blood by Automated count ID Date Data Source [id number] 04/06/2019 10:02:00 PM [facility] Name Value Range Interpretation Description Data Sup porting Code Source(s) Document(s ) Leukocytes 5.2 [facility] [#/volume] in 10*3/uL Hospital Blood by Automated count ID Date Data Source [id number] 03/09/2019 08:08:00 PM [facility] Pediatric Allergist:ADOLFO RODAS Name Value Range Interpretation Description Data Sup porting Code Source(s) Document(s ) Glucose 223 mg/dL [facility] [Mass/volume] Hospital in Capillary blood by Glucometer ID Date Data Source [id number] 03/09/2019 07:35:00 PM EST [facility] Name Value Range Interpretation Description Data Sup porting Code Source(s) Document(s ) GLUCOSE MD Notified [place] [address] Hospital ID Date Data Source [id number] 03/09/2019 07:35:00 PM [facility] Name Value Range Interpretation Description Data Sup porting Code Source(s) Document(s ) GLUCOSE RN Notified [facility] ID Date Data Source [id number] 03/09/2019 07:35:00 PM [facility] Name Value Range Interpretation Description Data Sup porting Code Source(s) Document(s ) GLUCOSE MD Notified [place] [address] Hospital ID Date Data Source [id number] 03/09/2019 07:35:00 PM [facility] Name Value Range Interpretation Description Data Sup porting Code Source(s) Document(s ) GLUCOSE RN Notified [facility] Hospital ID Date Data Source [id number] 03/09/2019 04:21:00 PM [facility] CUT-OFF >= 25 NG/ML.THE FINDINGS OF THE URINE DRUG SCREEN ARE USED SOLELY FOR PATIENT MANAGEMENT AND GUIDANCE. THE RESULTS FREEDOM ULD NOT BE USED FOR FORENSIC PURPOSE. ANY CLINICALLY UNSUSPECTED POSITIVE DRUG SCR EEN CAN BE CONFIRMED BY CALLING THE LABORATORY 3 DAYS WITHIN RECEIPT OF REPO RT. Name Value Range Interpretation Code Description Data Bryanna rce(s) Supporting Document(s ) PCP (UR) NEGATIVE [facility] ID Date Data Source [id number] 03/09/2019 04:21:00 PM [facility] CUT-OFF >= 50 NG/ML. Name Value Range Interpretation Code Description Data Bryanna rce(s) Supporting Document(s ) THC (UR) NEGATIVE [facility] ID Date Data Source [id number] 03/09/2019 04:21:00 PM [facility] CUT-OFF >= 300 NG/ML. Name Value Range Interpretation Description Data Sup porting Code Source(s) Document(s ) OPIATES (UR) NEGATIVE [facility] ID Date Data Source [id number] 03/09/2019 04:21:00 PM [facility] CUT-OFF >= 300 NG/ML. Name Value Range Interpretation Description Data Sup porting Code Source(s) Document(s ) COCAINE (UR) NEGATIVE [facility] ID Date Data Source [id number] 03/09/2019 04:21:00 PM [facility] CUT-OFF >= 200 NG/ML. Name Value Range Interpretation Description Data Sup porting Code Source(s) Document(s ) BENZODIAZEPINES NEGATIVE [place] (UR) [facility] ID Date Data Source [id number] 03/09/2019 04:21:00 PM [facility] CUT-OFF >= 200 NG/ML. Name Value Range Interpretation Description Data Sup porting Code Source(s) Document(s ) BARBITURATES NEGATIVE [facility] (UR) Hospital ID Date Data Source [id number] 03/09/2019 04:21:00 PM [facility] CUT-OFF >= 1000 NG/ML. Name Value Range Interpretation Description Data Sup porting Code Source(s) Document(s ) AMPHETAMINES NEGATIVE [facility] (UR) Hospital ID Date Data Source [id number] 03/09/2019 04:21:00 PM [facility] REFERENCE RANGES: NONE DETECTED <20 MG/DL NONE TO MILD EUPHORIA 20-49 MG/DL MILD EUPHORIA 50-99 MG/DL MODERATE EUPHORIA 100-149 MG/DL INTOXICATION 150-300 MG/DL Name Value Range Interpretation Description Data Sup porting Code Source(s) Document(s ) Ethanol < 20 [facility] [Mass/volume mg/dL Hospital ] in Serum or Plasma ID Date Data Source [id number] 03/09/2019 04:21:00 PM [facility] TEST RESULT IS A TOTAL TRICYCLIC VALUE.T RICYCLIC ANTIDEPRESSANT REFERENCE RANGE: AMITRIPTYLINE AND METABOLITE (NORTRIPTYL INE) TOTAL THERAPEUTIC: 75 - 225 NG/ML. TOTAL TOXIC: > 400 NG/ML. NORTRIPTYLINE ONLY TOTAL THERAPEUTIC: 50 - 150 NG/ML. TOTAL TOXIC: > 400 NG/ML. IMIPRAMINE AND METABOLITE (DESIPRAMINE) TOTAL THERAPEUTIC: 125 - 175 NG/ML. TOTAL TOXIC: > 400 NG/ML. Name Value Range Interpretation Description Data Sup porting Code Source(s) Document(s ) TRICYCLIC < 80 [facility] ANTIDEPRESSANT ng/mL Hospital ID Date Data Source [id number] 03/09/2019 04:21:00 PM [facility] REFERENCE RANGES: ANALGESIC: 0.0 - 10.0 MG/DL. ARTHRITIC THERAPY: 15.0 - 30.0 MG/DL. Name Value Range Interpretation Description Data Sup porting Code Source(s) Document(s ) Salicylates < 3.0 [facility] [Mass/volume] mg/dL Hospital in Serum or Plasma ID Date Data Source [id number] 03/09/2019 04:21:00 PM [facility] THERAPEUTIC RANGE: 10.0-30.0 UG/MLTOXIC RANGE: 4 HRS AFTER INGESTION >150 UG/ML 12 HRS AFTER INGESTION >35 UG/ML Name Value Range Interpretation Description Data Sup porting Code Source(s) Document(s ) ACETAMINOPHEN < 10.0 [facility] ug/mL Hospital ID Date Data Source [id number] 03/09/2019 04:21:00 PM [facility] Name Value Range Interpretation Description Data Sup porting Code Source(s) Document(s ) Aspartate 46 U/L [place] aminotransferase [facility] [Enzymatic Hospital activity/volume] in Serum or Plasma ID Date Data Source [id number] 03/09/2019 04:21:00 PM [facility] Name Value Range Interpretation Description Data Sup porting Code Source(s) Document(s ) Alanine 31 U/L [place] aminotransferase [facility] [Enzymatic Hospital activity/volume] in Serum or Plasma ID Date Data Source [id number] 03/09/2019 04:21:00 PM [facility] Name Value Range Interpretation Description Data Sup porting Code Source(s) Document(s ) Alkaline 86 U/L [facility] phosphatase Hospital [Enzymatic activity/volume ] in Serum or Plasma ID Date Data Source [id number] 03/09/2019 04:21:00 PM [facility] Name Value Range Interpretation Description Data Sup porting Code Source(s) Document(s ) Bilirubin.t 0.9 mg/dL [facility] [Mass/volum e] in Serum or Plasma ID Date Data Source [id number] 03/09/2019 04:21:00 PM [facility] Name Value Range Interpretation Code Description Data Bryanna rce(s) Supporting Document(s ) [facility] Ratio] in Serum or Plasma ID Date Data Source [id number] 03/09/2019 04:21:00 PM [facility] Name Value Range Interpretation Description Data Sup porting Code Source(s) Document(s ) Albumin 3.9 g/dL [facility] [Mass/volume Hospital ] in Serum or Plasma ID Date Data Source [id number] 03/09/2019 04:21:00 PM [facility] Name Value Range Interpretation Description Data Sup porting Code Source(s) Document(s ) Protein 6.9 g/dL [facility] [Mass/volume Hospital ] in Serum or Plasma ID Date Data Source [id number] 03/09/2019 04:21:00 PM [facility] Name Value Range Interpretation Code Description Data Supporting Source(s) Document(s ) NUCLEATED RBCS 0.0 % [facility] (AUTO Hospital DIFF%)DIS ID Date Data Source [id number] 03/09/2019 04:21:00 PM EST [facility] CUT-OFF >= 25 NG/ML.THE FINDINGS OF THE URINE DRUG SCREEN ARE USED SOLELY FOR PATIENT MANAGEMENT AND GUIDANCE. THE RESULTS [place] ULD NOT BE USED FOR FORENSIC PURPOSE. ANY CLINICALLY UNSUSPECTED POSITIVE DRUG SCR EEN CAN BE CONFIRMED BY CALLING THE LABORATORY 3 DAYS WITHIN RECEIPT OF REPO RT. Name Value Range Interpretation Code Description Data Bryanna rce(s) Supporting Document(s ) PCP (UR) NEGATIVE [facility] ID Date Data Source [id number] 03/09/2019 04:21:00 PM EST [facility] CUT-OFF >= 50 NG/ML. Name Value Range Interpretation Code Description Data Bryanna rce(s) Supporting Document(s ) THC (UR) NEGATIVE [facility] ID Date Data Source [id number] 03/09/2019 04:21:00 PM EST [facility] CUT-OFF >= 300 NG/ML. Name Value Range Interpretation Description Data Sup porting Code Source(s) Document(s ) OPIATES (UR) NEGATIVE [facility] ID Date Data Source [id number] 03/09/2019 04:21:00 PM EST [facility] CUT-OFF >= 300 NG/ML. Name Value Range Interpretation Description Data Sup porting Code Source(s) Document(s ) COCAINE (UR) NEGATIVE [facility] ID Date Data Source [id number] 03/09/2019 04:21:00 PM EST [facility] CUT-OFF >= 200 NG/ML. Name Value Range Interpretation Description Data Sup porting Code Source(s) Document(s ) BENZODIAZEPINES NEGATIVE [place] (UR) [facility] ID Date Data Source [id number] 03/09/2019 04:21:00 PM [facility] CUT-OFF >= 200 NG/ML. Name Value Range Interpretation Description Data Sup porting Code Source(s) Document(s ) BARBITURATES NEGATIVE [facility] (UR) Hospital ID Date Data Source [id number] 03/09/2019 04:21:00 PM [facility] CUT-OFF >= 1000 NG/ML. Name Value Range Interpretation Description Data Sup porting Code Source(s) Document(s ) AMPHETAMINES NEGATIVE [facility] (UR) Hospital ID Date Data Source [id number] 03/09/2019 04:21:00 PM [facility] REFERENCE RANGES: NONE DETECTED <20 MG/DL NONE TO MILD EUPHORIA 20-49 MG/DL MILD EUPHORIA 50-99 MG/DL MODERATE EUPHORIA 100-149 MG/DL INTOXICATION 150-300 MG/DL Name Value Range Interpretation Description Data Sup porting Code Source(s) Document(s ) Ethanol < 20 [facility] [Mass/volume mg/dL Hospital ] in Serum or Plasma ID Date Data Source [id number] 03/09/2019 04:21:00 PM [facility] TEST RESULT IS A TOTAL TRICYCLIC VALUE.T RICYCLIC ANTIDEPRESSANT REFERENCE RANGE: AMITRIPTYLINE AND METABOLITE (NORTRIPTYL INE) TOTAL THERAPEUTIC: 75 - 225 NG/ML. TOTAL TOXIC: > 400 NG/ML. NORTRIPTYLINE ONLY TOTAL THERAPEUTIC: 50 - 150 NG/ML. TOTAL TOXIC: > 400 NG/ML. IMIPRAMINE AND METABOLITE (DESIPRAMINE) TOTAL THERAPEUTIC: 125 - 175 NG/ML. TOTAL TOXIC: > 400 NG/ML. Name Value Range Interpretation Description Data Sup porting Code Source(s) Document(s ) TRICYCLIC < 80 [facility] ANTIDEPRESSANT ng/mL Hospital ID Date Data Source [id number] 03/09/2019 04:21:00 PM [facility] REFERENCE RANGES: ANALGESIC: 0.0 - 10.0 MG/DL. ARTHRITIC THERAPY: 15.0 - 30.0 MG/DL. Name Value Range Interpretation Description Data Sup porting Code Source(s) Document(s ) Salicylates < 3.0 [facility] [Mass/volume] mg/dL Hospital in Serum or Plasma ID Date Data Source [id number] 03/09/2019 04:21:00 PM [facility] THERAPEUTIC RANGE: 10.0-30.0 UG/MLTOXIC RANGE: 4 HRS AFTER INGESTION >150 UG/ML 12 HRS AFTER INGESTION >35 UG/ML Name Value Range Interpretation Description Data Sup porting Code Source(s) Document(s ) ACETAMINOPHEN < 10.0 [facility] ug/mL Hospital ID Date Data Source [id number] 03/09/2019 04:21:00 PM [facility] Name Value Range Interpretation Description Data Sup porting Code Source(s) Document(s ) Aspartate 46 U/L [facility] aminotransferase [facility] [Enzymatic Hospital activity/volume] in Serum or Plasma ID Date Data Source [id number] 03/09/2019 04:21:00 PM [facility] Name Value Range Interpretation Description Data Sup porting Code Source(s) Document(s ) Alanine 31 U/L [facility] aminotransferase [facility] [Enzymatic Hospital activity/volume] in Serum or Plasma ID Date Data Source [id number] 03/09/2019 04:21:00 PM [facility] Name Value Range Interpretation Description Data Sup porting Code Source(s) Document(s ) Alkaline 86 U/L [facility] phosphatase Hospital [Enzymatic activity/volume ] in Serum or Plasma ID Date Data Source [id number] 03/09/2019 04:21:00 PM [facility] Name Value Range Interpretation Description Data Sup porting Code Source(s) Document(s ) Bilirubin.t 0.9 mg/dL [facility] [Mass/volum e] in Serum or Plasma ID Date Data Source [id number] 03/09/2019 04:21:00 PM EST [facility] Name Value Range Interpretation Code Description Data Bryanna rce(s) Supporting Document(s ) Albumin/Glob 1.3 [facility] ulin [Mass Hospital Ratio] in Serum or Plasma ID Date Data Source [id number] 03/09/2019 04:21:00 PM EST [facility] Name Value Range Interpretation Description Data Sup porting Code Source(s) Document(s ) Albumin 3.9 g/dL [facility] [Mass/volume Hospital ] in Serum or Plasma ID Date Data Source [id number] 03/09/2019 04:21:00 PM EST [facility] Name Value Range Interpretation Description Data Sup porting Code Source(s) Document(s ) Protein 6.9 g/dL [facility] [Mass/volume Hospital ] in Serum or Plasma ID Date Data Source [id number] 03/09/2019 04:21:00 PM EST [facility] Name Value Range Interpretation Description Data Sup porting Code Source(s) Document(s ) Calcium 9.4 mg/dL [facility] [Mass/volume Hospital ] in Serum or Plasma ID Date Data Source [id number] 03/09/2019 04:21:00 PM EST [facility] Name Value Range Interpretation Code Description Data Bryanna rce(s) Supporting Document(s ) Urea 18.6 [facility] nitrogen/Cre Hospital atinine [Mass Ratio] in Serum or Plasma ID Date Data Source [id number] 03/09/2019 04:21:00 PM EST [facility] Name Value Range Interpretation Description Data Sup porting Code Source(s) Document(s ) Creatinine 0.7 mg/dL [facility] [Mass/volume] Hospital in Serum or Plasma ID Date Data Source [id number] 03/09/2019 04:21:00 PM EST [facility] Name Value Range Interpretation Description Data Sup porting Code Source(s) Document(s ) Urea 13 mg/dL [facility] nitrogen Hospital [Mass/volume ] in Serum or Plasma ID Date Data Source [id number] 03/09/2019 04:21:00 PM EST [facility] Name Value Range Interpretation Code Description Data Bryanna rce(s) Supporting Document(s ) Anion gap in 12 [facility] Serum or Hospital Plasma ID Date Data Source [id number] 03/09/2019 04:21:00 PM EST [facility] Name Value Range Interpretation Description Data Sup porting Code Source(s) Document(s ) Carbon 28 mmol/L [facility] dioxide, Hospital total [Moles/volu me] in Serum or Plasma ID Date Data Source [id number] 03/09/2019 04:21:00 PM EST [facility] Name Value Range Interpretation Description Data Sup porting Code Source(s) Document(s ) Chloride 103 [facility] [Moles/volum mmol/L Hospital e] in Serum or Plasma ID Date Data Source [id number] 03/09/2019 04:21:00 PM EST [facility] Name Value Range Interpretation Description Data Sup porting Code Source(s) Document(s ) Potassium 4.2 [facility] [Moles/volume mmol/L Hospital ] in Serum or Plasma ID Date Data Source [id number] 03/09/2019 04:21:00 PM EST [facility] Name Value Range Interpretation Description Data Sup porting Code Source(s) Document(s ) Sodium 139 mmol/L [facility] [Moles/volu Hospital me] in Serum or Plasma ID Date Data Source [id number] 03/09/2019 04:21:00 PM EST [facility] Name Value Range Interpretation Description Data Sup porting Code Source(s) Document(s ) Glucose 193 mg/dL [facility] [Mass/volume Hospital ] in Serum or Plasma ID Date Data Source [id number] 03/09/2019 04:21:00 PM EST [facility] Name Value Range Interpretation Description Data Sup porting Code Source(s) Document(s ) Leukocyte NEGATIVE [facility] esterase Hospital [Presence] in Urine by Test strip ID Date Data Source [id number] 03/09/2019 04:21:00 PM [facility] Name Value Range Interpretation Description Data Sup porting Code Source(s) Document(s ) URINE NEGATIVE [facility] NITRITES Hospital ID Date Data Source [id number] 03/09/2019 04:21:00 PM [facility] Name Value Range Interpretation Description Data Sup porting Code Source(s) Document(s ) Erythrocytes NEGATIVE [facility] [#/volume] in Hospital Urine by Test strip ID Date Data Source [id number] 03/09/2019 04:21:00 PM [facility] Name Value Range Interpretation Code Description Data Bryanna rce(s) Supporting Document(s ) Bilirubin. NEGATIVE [facility] total Hospital [Presence] in Urine by Test strip ID Date Data Source [id number] 03/09/2019 04:21:00 PM [facility] Name Value Range Interpretation Description Data Sup porting Code Source(s) Document(s ) Urobilinogen 1.0 [facility] [Units/volume] mg/dL Hospital in Urine by Test strip ID Date Data Source [id number] 03/09/2019 04:21:00 PM [facility] Name Value Range Interpretation Description Data Sup porting Code Source(s) Document(s ) Ketones NEGATIVE [facility] [Mass/volume Hospital ] in Urine by Test strip ID Date Data Source [id number] 03/09/2019 04:21:00 PM EST [facility] Name Value Range Interpretation Code Description Data Bryanna rce(s) Supporting Document(s ) Glucose 2+ [facility] [Mass/volume Hospital ] in Urine by Test strip ID Date Data Source [id number] 03/09/2019 04:21:00 PM EST [facility] Name Value Range Interpretation Description Data Sup porting Code Source(s) Document(s ) Protein NEGATIVE [facility] [Presence] Hospital in Urine by Test strip ID Date Data Source [id number] 03/09/2019 04:21:00 PM EST [facility] Name Value Range Interpretation Code Description Data Bryanna rce(s) Supporting Document(s ) pH of Urine 7.5 [facility] by Test Hospital strip ID Date Data Source [id number] 03/09/2019 04:21:00 PM EST [facility] Name Value Range Interpretation Code Description Data Supporting Source(s) Document(s ) Specific 1.022 [facility] gravity of Hospital Urine by Test strip ID Date Data Source [id number] 03/09/2019 04:21:00 PM EST [facility] Name Value Range Interpretation Description Data Sup porting Code Source(s) Document(s ) Clarity in Urine CLEAR [facility] by Refractometry [facility] automated ID Date Data Source [id number] 03/09/2019 04:21:00 PM EST [facility] Name Value Range Interpretation Code Description Data Bryanna rce(s) Supporting Document(s ) Color of YELLOW [facility] Urine Hospital ID Date Data Source [id number] 03/09/2019 04:21:00 PM EST [facility] Name Value Range Interpretation Code Description Data Supporting Source(s) Document(s ) NUCLEATED RBCS 0.0 % [facility] (AUTO Hospital DIFF%)DIS ID Date Data Source [id number] 03/09/2019 04:21:00 PM [facility] Name Value Range Interpretation Description Data Sup porting Code Source(s) Document(s ) Differential AUTOMATED [facility] cell count [facility] method - Blood ID Date Data Source [id number] 03/09/2019 04:21:00 PM [facility] Name Value Range Interpretation Description Data Sup porting Code Source(s) Document(s ) Immature 0.01 [facility] granulocytes 10*3/uL Hospital [#/volume] in Blood by Automated count ID Date Data Source [id number] 03/09/2019 04:21:00 PM [facility] Name Value Range Interpretation Description Data Sup porting Code Source(s) Document(s ) Basophils 0.05 [facility] [#/volume] in 10*3/uL Hospital Blood by Automated count ID Date Data Source [id number] 03/09/2019 04:21:00 PM [facility] Name Value Range Interpretation Description Data Sup porting Code Source(s) Document(s ) Eosinophils 0.08 [facility] [#/volume] in 10*3/uL Hospital Blood by Automated count ID Date Data Source [id number] 03/09/2019 04:21:00 PM [facility] Name Value Range Interpretation Description Data Sup porting Code Source(s) Document(s ) Monocytes 1.06 [facility] [#/volume] in 10*3/uL Hospital Blood by Automated count ID Date Data Source [id number] 03/09/2019 04:21:00 PM [facility] Name Value Range Interpretation Description Data Sup porting Code Source(s) Document(s ) Platelet mean 11.8 fL [facility] volume Hospital [Entitic volume] in Blood by Automated count ID Date Data Source [id number] 03/09/2019 04:21:[address] [facility] Value Range Interpretation Description Data Sup porting Code Source(s) Document(s ) Platelets 219 [facility] [#/volume] in 10*3/uL Hospital Blood by Automated count ID Date Data Source [id number] 03/09/2019 04:21:[address] [facility] Value Range Interpretation Description Data Sup porting Code Source(s) Document(s ) Erythrocyte 13.3 % [facility] width [Ratio] by Automated count ID Date Data Source [id number] 03/09/2019 04:21:[address] [facility] Value Range Interpretation Description Data Sup porting Code Source(s) Document(s ) Erythrocyte mean 34.3 [facility] corpuscular g/dL Hospital hemoglobin concentration [Mass/volume] by Automated count ID Date Data Source [id number] 03/09/2019 04:21:[address] [facility] Value Range Interpretation Description Data Sup porting Code Source(s) Document(s ) Erythrocyte 30.4 pg [facility] corpuscular hemoglobin [Entitic mass] by Automated count ID Date Data Source [id number] 03/09/2019 04:21:[address] [facility] Value Range Interpretation Description Data Sup porting Code Source(s) Document(s ) Erythrocyte 88.6 fL [facility] corpuscular volume [Entitic volume] by Automated count ID Date Data Source [id number] 03/09/2019 04:21:[address] [facility] Value Range Interpretation Description Data Sup porting Code Source(s) Document(s ) Hematocrit 33.5 % [facility] [Volume Hospital Fraction] of Blood by Automated count ID Date Data Source [id number] 03/09/2019 04:21:00 PM EST [facility] Name Value Range Interpretation Description Data Sup porting Code Source(s) Document(s ) Hemoglobin 11.5 g/dL [facility] [Mass/volume] Hospital in Blood ID Date Data Source [id number] 03/09/2019 04:21:[address] [facility] Value Range Interpretation Description Data Sup porting Code Source(s) Document(s ) Erythrocytes 3.78 [facility] [#/volume] in 10*6/uL Hospital Blood by Automated count ID Date Data Source [id number] 03/09/2019 04:21:[address] [facility] Value Range Interpretation Description Data Sup porting Code Source(s) Document(s ) Leukocytes 5.8 [facility] [#/volume] in 10*3/uL Hospital Blood by Automated count ID Date Data Source [id number] 03/09/2019 04:21:[address] [facility] Value Range Interpretation Description Data Sup porting Code Source(s) Document(s ) Lymphocytes 2.13 [facility] [#/volume] in 10*3/uL Hospital Blood by Automated count ID Date Data Source [id number] 03/09/2019 04:21:00 PM EST [facility] Value Range Interpretation Description Data Sup porting Code Source(s) Document(s ) Neutrophils 2.43 [facility] [#/volume] in 10*3/uL Hospital Blood by Automated count ID Date Data Source [id number] 03/09/2019 04:21:00 PM [facility] Name Value Range Interpretation Description Data Sup porting Code Source(s) Document(s ) Nucleated 0.0 % [facility] erythrocytes/10 Hospital 0 leukocytes [Ratio] in Blood by Automated count ID Date Data Source [id number] 03/09/2019 04:21:00 PM EST [facility] Name Value Range Interpretation Description Data Sup porting Code Source(s) Document(s ) Immature 0.2 % [facility] granulocytes/10 Hospital 0 leukocytes in Blood by Automated count ID Date Data Source [id number] 03/09/2019 04:21:00 PM EST [facility] Name Value Range Interpretation Description Data Sup porting Code Source(s) Document(s ) Basophils/100 0.9 % [facility] leukocytes in Hospital Blood by Automated count ID Date Data Source [id number] 03/09/2019 04:21:00 PM EST [facility] Name Value Range Interpretation Description Data Sup porting Code Source(s) Document(s ) Eosinophils/100 1.4 % [facility] leukocytes in Hospital Blood by Automated count ID Date Data Source [id number] 03/09/2019 04:21:00 PM EST [facility] Name Value Range Interpretation Description Data Sup porting Code Source(s) Document(s ) Monocytes/100 18.4 % [facility] leukocytes in Hospital Blood by Automated count ID Date Data Source [id number] 03/09/2019 04:21:00 PM EST [facility] Name Value Range Interpretation Description Data Sup porting Code Source(s) Document(s ) Lymphocytes/10 37.0 % [facility] 0 leukocytes Hospital in Blood by Automated count ID Date Data Source [id number] 03/09/2019 04:21:00 PM EST [facility] Name Value Range Interpretation Description Data Sup porting Code Source(s) Document(s ) Neutrophils/10 42.1 % [facility] 0 leukocytes Hospital in Blood by Automated count ID Date Data Source [id number] 03/03/2019 04:41:00 PM EST [facility] Name Value Range Interpretation Description Data Sup porting Code Source(s) Document(s ) GLUCOSE RN Notified [facility] COMMENT2 Hospital ID Date Data Source [id number] 03/03/2019 04:41:00 PM [facility] Name Value Range Interpretation Description Data Sup porting Code Source(s) Document(s ) GLUCOSE Venous [facility] COMMENT Sent to Hospital Lab ID Date Data Source [id number] 03/03/2019 04:41:00 PM [facility] Pediatric Allergist:TRACIE CORTES Name Value Range Interpretation Description Data Sup porting Code Source(s) Document(s ) Glucose 296 mg/dL [facility] [Mass/volume] Hospital in Capillary blood by Glucometer ID Date Data Source [id number] 03/02/2019 05:08:00 AM [facility] ADA RECOMMENDATIONS: NON-DIABETES: 4.0-6.0% CONTROLLED DIABETES: 6.0-8.0% UNCONTROLLED DIABETE S: UP TO 20%RECOMMENDED ADA RESULT FOR THERAPY: HEMOGLOBIN A1C RESULT LESS GM N 7%.NOTE: METHOD CHANGE EFFECTIVE 11/11/14. Name Value Range Interpretation Description Data Sup porting Code Source(s) Document(s ) Hemoglobin 9.7 % [facility] A1c/Hemoglobin. Hospital total in Blood ID Date Data Source [id number] 03/02/2019 05:08:00 AM [facility] ADA RECOMMENDATIONS: NON-DIABETES: 4.0-6.0% CONTROLLED DIABETES: 6.0-8.0% UNCONTROLLED DIABETE S: UP TO 20%RECOMMENDED ADA RESULT FOR THERAPY: HEMOGLOBIN A1C RESULT LESS GM N 7%.NOTE: METHOD CHANGE EFFECTIVE 11/11/14. Name Value Range Interpretation Description Data Sup porting Code Source(s) Document(s ) Hemoglobin 9.7 % [facility] A1c/Hemoglobin. Hospital total in Blood ID Date Data Source [id number] 03/01/2019 11:03:00 PM [facility] Name Value Range Interpretation Description Data Sup porting Code Source(s) Document(s ) Methicillin MRSA TARGET [facility] resistant DNA DETECTED [facility] aureus (MRSA) DNA [Presence] in Unspecified specimen by Probe and target amplification method Methicillin PATIENT IS [facility] resistant PRESUMED [facility] POSITIVE FOR Hospital aureus (MRSA) MRSA DNA [Presence] COLONIZATION in Unspecified specimen by Probe and target amplification method ID Date Data Source [id number] 03/01/2019 11:03:00 PM EST [facility] Name Value Range Interpretation Description Data Sup porting Code Source(s) Document(s ) Methicillin MRSA TARGET [facility] resistant DNA DETECTED [facility] aureus (MRSA) DNA [Presence] in Unspecified specimen by Probe and target amplification method Methicillin PATIENT IS [facility] resistant PRESUMED [facility] POSITIVE FOR Hospital aureus (MRSA) MRSA DNA [Presence] COLONIZATION in Unspecified specimen by Probe and target amplification method ID Date Data Source [id number] 03/01/2019 10:53:00 PM EST [facility] CUT-OFF >= 25 NG/ML.THE FINDINGS OF THE URINE DRUG SCREEN ARE USED SOLELY FOR PATIENT MANAGEMENT AND GUIDANCE. THE RESULTS FREEDOM ULD NOT BE USED FOR FORENSIC PURPOSE. ANY CLINICALLY UNSUSPECTED POSITIVE DRUG SCR EEN CAN BE CONFIRMED BY CALLING THE LABORATORY 3 DAYS WITHIN RECEIPT OF REPO RT. Name Value Range Interpretation Code Description Data Bryanna rce(s) Supporting Document(s ) PCP (UR) NEGATIVE [facility] ID Date Data Source [id number] 03/01/2019 10:53:00 PM [facility] CUT-OFF >= 50 NG/ML. Name Value Range Interpretation Code Description Data Bryanna rce(s) Supporting Document(s ) THC (UR) NEGATIVE [facility] ID Date Data Source [id number] 03/01/2019 10:53:00 PM EST [facility] CUT-OFF >= 300 NG/ML. Name Value Range Interpretation Description Data Sup porting Code Source(s) Document(s ) OPIATES (UR) NEGATIVE [facility] ID Date Data Source [id number] 03/01/2019 10:53:00 PM EST [facility] CUT-OFF >= 300 NG/ML. Name Value Range Interpretation Description Data Sup porting Code Source(s) Document(s ) COCAINE (UR) NEGATIVE [facility] ID Date Data Source [id number] 03/01/2019 10:53:00 PM [facility] CUT-OFF >= 200 NG/ML. Name Value Range Interpretation Description Data Sup porting Code Source(s) Document(s ) BENZODIAZEPINES NEGATIVE [facility] (UR) [facility] ID Date Data Source [id number] 03/01/2019 10:53:00 PM [facility] CUT-OFF >= 200 NG/ML. Name Value Range Interpretation Description Data Sup porting Code Source(s) Document(s ) BARBITURATES NEGATIVE [facility] (UR) Hospital ID Date Data Source [id number] 03/01/2019 10:53:00 PM [facility] CUT-OFF >= 1000 NG/ML. Name Value Range Interpretation Description Data Sup porting Code Source(s) Document(s ) AMPHETAMINES NEGATIVE [facility] (UR) Hospital ID Date Data Source [id number] 03/01/2019 10:53:00 PM [facility] Name Value Range Interpretation Description Data Sup porting Code Source(s) Document(s ) Leukocyte NEGATIVE [facility] esterase Hospital [Presence] in Urine by Test strip ID Date Data Source [id number] 03/01/2019 10:53:00 PM [facility] Name Value Range Interpretation Description Data Sup porting Code Source(s) Document(s ) URINE NEGATIVE [facility] NITRITES Hospital ID Date Data Source [id number] 03/01/2019 10:53:00 PM [facility] Name Value Range Interpretation Description Data Sup porting Code Source(s) Document(s ) Erythrocytes NEGATIVE [facility] [#/volume] in Hospital Urine by Test strip ID Date Data Source [id number] 03/01/2019 10:53:00 PM EST [facility] Name Value Range Interpretation Code Description Data Bryanna rce(s) Supporting Document(s ) Bilirubin. NEGATIVE [facility] total Hospital [Presence] in Urine by Test strip ID Date Data Source [id number] 03/01/2019 10:53:00 PM EST [facility] Name Value Range Interpretation Description Data Sup porting Code Source(s) Document(s ) Urobilinogen 1.0 [facility] [Units/volume] mg/dL Hospital in Urine by Test strip ID Date Data Source [id number] 03/01/2019 10:53:00 PM EST [facility] Name Value Range Interpretation Description Data Sup porting Code Source(s) Document(s ) Ketones NEGATIVE [facility] [Mass/volume Hospital ] in Urine by Test strip ID Date Data Source [id number] 03/01/2019 10:53:00 PM EST [facility] Name Value Range Interpretation Description Data Sup porting Code Source(s) Document(s ) Glucose NEGATIVE [facility] [Mass/volume Hospital ] in Urine by Test strip ID Date Data Source [id number] 03/01/2019 10:53:00 PM EST [facility] Name Value Range Interpretation Description Data Sup porting Code Source(s) Document(s ) Protein NEGATIVE [facility] [Presence] Hospital in Urine by Test strip ID Date Data Source [id number] 03/01/2019 10:53:00 PM EST [facility] Name Value Range Interpretation Code Description Data Bryanna rce(s) Supporting Document(s ) pH of Urine 8.5 [facility] by Test Hospital strip ID Date Data Source [id number] 03/01/2019 10:53:00 PM [facility] Name Value Range Interpretation Code Description Data Supporting Source(s) Document(s ) Specific 1.011 [facility] gravity of Hospital Urine by Test strip ID Date Data Source [id number] 03/01/2019 10:53:00 PM [facility] Name Value Range Interpretation Description Data Sup porting Code Source(s) Document(s ) Clarity in Urine CLEAR [facility] by [facility] automated ID Date Data Source [id number] 03/01/2019 10:53:00 PM [facility] Name Value Range Interpretation Code Description Data Bryanna rce(s) Supporting Document(s ) Color of YELLOW [facility] Urine Hospital ID Date Data Source [id number] 03/01/2019 09:53:00 PM [facility] NOTIFICATION AND READ BACK OF CRITICAL R ESULTS TO Dr. Gunnar Carlson ON [facility] AT 2233 ON 03/01/19 BY Moshe Baker.REPORTED CRITICAL VALUES SHOULD BE INTERPRETED WITHIN CLINICAL CONTEXT. Name Value Range Interpretation Description Data Sup porting Code Source(s) Document(s ) Ammonia 117 [place] [Moles/volum mmol/L Hospital e] in Plasma ID Date Data Source [id number] 03/01/2019 09:53:00 PM [facility] NOTIFICATION AND READ BACK OF CRITICAL R ESULTS TO Dr. Gunnar Carlson ON ED[facility] AT 2233 ON 03/01/19 BY Moshe Baker.REPORTED CRITICAL VALUES SHOULD BE INTERPRETED WITHIN CLINICAL CONTEXT. Name Value Range Interpretation Description Data Sup porting Code Source(s) Document(s ) Ammonia 117 [place] [Moles/volum mmol/L Hospital e] in Plasma ID Date Data Source [id number] 03/01/2019 07:40:00 PM [facility] Name Value Range Interpretation Description Data Sup porting Code Source(s) Document(s ) Thyrotropin 1.691 [place] [Units/volume] u[IU]/mL Hospital in Serum or Plasma by Detection limit <= 0.005 mIU/L ID Date Data Source [id number] 03/01/2019 07:40:00 PM [facility] Name Value Range Interpretation Description Data Sup porting Code Source(s) Document(s ) Thyrotropin 1.691 [place] [Units/volume] u[IU]/mL Hospital in Serum or Plasma by Detection limit <= 0.005 mIU/L ID Date Data Source [id number] 03/01/2019 05:08:00 AM [facility] Name Value Range Interpretation Description Data Sup porting Code Source(s) Document(s ) Aspartate 42 U/L [place] aminotransferase [facility] [Enzymatic Hospital activity/volume] in Serum or Plasma ID Date Data Source [id number] 03/01/2019 05:08:00 AM [facility] Name Value Range Interpretation Description Data Sup porting Code Source(s) Document(s ) Alanine 32 U/L [place] aminotransferase [facility] [Enzymatic Hospital activity/volume] in Serum or Plasma ID Date Data Source [id number] 03/01/2019 05:08:[address] [facility] Value Range Interpretation Description Data Sup porting Code Source(s) Document(s ) Alkaline 85 U/L [place] phosphatase [facility] [Enzymatic activity/volume ] in Serum or Plasma ID Date Data Source [id number] 03/01/2019 05:08:00 AM [facility] Name Value Range Interpretation Description Data Sup porting Code Source(s) Document(s ) Bilirubin.t 1.1 mg/dL [facility] [Mass/volum e] in Serum or Plasma ID Date Data Source [id number] 03/01/2019 05:08:00 AM [facility] Name Value Range Interpretation Code Description Data Bryanna rce(s) Supporting Document(s ) Albumin/Glob 1.1 [place] ulin [Mass Hospital Ratio] in Serum or Plasma ID Date Data Source [id number] 03/01/2019 05:08:00 AM [facility] Name Value Range Interpretation Description Data Sup porting Code Source(s) Document(s ) Albumin 3.3 g/dL [facility] [Mass/volume Hospital ] in Serum or Plasma ID Date Data Source [id number] 03/01/2019 05:08:00 AM [facility] Name Value Range Interpretation Description Data Sup porting Code Source(s) Document(s ) Protein 6.3 g/dL [facility] [Mass/volume Hospital ] in Serum or Plasma ID Date Data Source [id number] 03/01/2019 05:08:00 AM [facility] Name Value Range Interpretation Description Data Sup porting Code Source(s) Document(s ) Calcium 8.6 mg/dL [facility] [Mass/volume Hospital ] in Serum or Plasma ID Date Data Source [id number] 03/01/2019 05:08:00 AM [facility] Name Value Range Interpretation Code Description Data Bryanna rce(s) Supporting Document(s ) Urea 20.0 [place] nitrogen/Cre Hospital atinine [Mass Ratio] in Serum or Plasma ID Date Data Source [id number] 03/01/2019 05:08:00 AM [facility] Name Value Range Interpretation Description Data Sup porting Code Source(s) Document(s ) Creatinine 0.7 mg/dL [facility] [Mass/volume] Hospital in Serum or Plasma ID Date Data Source [id number] 03/01/2019 05:08:00 AM [facility] Name Value Range Interpretation Description Data Sup porting Code Source(s) Document(s ) Urea 14 mg/dL [facility] nitrogen Hospital [Mass/volume ] in Serum or Plasma ID Date Data Source [id number] 03/01/2019 05:08:00 AM EST [facility] Name Value Range Interpretation Code Description Data Bryanna rce(s) Supporting Document(s ) Anion gap in 12 [facility] Serum or Hospital Plasma ID Date Data Source [id number] 03/01/2019 05:08:00 AM EST [facility] Name Value Range Interpretation Description Data Sup porting Code Source(s) Document(s ) Carbon 26 mmol/L [place] dioxide, Hospital total [Moles/volu me] in Serum or Plasma ID Date Data Source [id number] 03/01/2019 05:08:00 AM EST [facility] Name Value Range Interpretation Description Data Sup porting Code Source(s) Document(s ) Chloride 105 [place] [Moles/volum mmol/L Hospital e] in Serum or Plasma ID Date Data Source [id number] 03/01/2019 05:08:00 AM [facility] Name Value Range Interpretation Description Data Sup porting Code Source(s) Document(s ) Potassium 4.2 [place] [Moles/volume mmol/L Hospital ] in Serum or Plasma ID Date Data Source [id number] 03/01/2019 05:08:00 AM EST [facility] Name Value Range Interpretation Description Data Sup porting Code Source(s) Document(s ) Sodium 139 mmol/L [place] [Moles/volu Hospital me] in Serum or Plasma ID Date Data Source [id number] 03/01/2019 05:08:00 AM EST [facility] Name Value Range Interpretation Description Data Sup porting Code Source(s) Document(s ) Glucose 251 mg/dL [facility] [Mass/volume Hospital ] in Serum or Plasma ID Date Data Source [id number] 03/01/2019 05:08:00 AM [facility] Name Value Range Interpretation Code Description Data Supporting Source(s) Document(s ) NUCLEATED RBCS 0.0 % [place] (AUTO Hospital DIFF%)DIS ID Date Data Source [id number] 03/01/2019 05:08:00 AM [facility] Name Value Range Interpretation Description Data Sup porting Code Source(s) Document(s ) Differential AUTOMATED [facility] cell count Hospital method - Blood ID Date Data Source [id number] 03/01/2019 05:08:00 AM [facility] Name Value Range Interpretation Description Data Sup porting Code Source(s) Document(s ) Immature 0.01 [place] granulocytes 10*3/uL Hospital [#/volume] in Blood by Automated count ID Date Data Source [id number] 03/01/2019 05:08:00 AM [facility] Name Value Range Interpretation Description Data Sup porting Code Source(s) Document(s ) Basophils 0.03 [place] [#/volume] in 10*3/uL Hospital Blood by Automated count ID Date Data Source [id number] 03/01/2019 05:08:00 AM [facility] Name Value Range Interpretation Description Data Sup porting Code Source(s) Document(s ) Eosinophils 0.21 [place] [#/volume] in 10*3/uL Hospital Blood by Automated count ID Date Data Source [id number] 03/01/2019 05:08:00 AM [facility] Name Value Range Interpretation Description Data Sup porting Code Source(s) Document(s ) Monocytes 0.57 [place] [#/volume] in 10*3/uL Hospital Blood by Automated count ID Date Data Source [id number] 03/01/2019 05:08:00 AM EST [facility] Name Value Range Interpretation Description Data Sup porting Code Source(s) Document(s ) Lymphocytes 1.68 [place] [#/volume] in 10*3/uL Hospital Blood by Automated count ID Date Data Source [id number] 03/01/2019 05:08:00 AM EST [facility] Value Range Interpretation Description Data Sup porting Code Source(s) Document(s ) Neutrophils 2.58 [place] [#/volume] in 10*3/uL Hospital Blood by Automated count ID Date Data Source [id number] 03/01/2019 05:08:[address] [facility] Value Range Interpretation Description Data Sup porting Code Source(s) Document(s ) Nucleated 0.0 % [place] erythrocytes/10 Hospital 0 leukocytes [Ratio] in Blood by Automated count ID Date Data Source [id number] 03/01/2019 05:08:[address] [facility] Value Range Interpretation Description Data Sup porting Code Source(s) Document(s ) Immature 0.2 % [place] granulocytes/10 Hospital 0 leukocytes in Blood by Automated count ID Date Data Source [id number] 03/01/2019 05:08:[address] [facility] Value Range Interpretation Description Data Sup porting Code Source(s) Document(s ) Basophils/100 0.6 % [place] leukocytes in Hospital Blood by Automated count ID Date Data Source [id number] 03/01/2019 05:08:00 AM [facility] Name Value Range Interpretation Description Data Sup porting Code Source(s) Document(s ) Eosinophils/100 4.1 % [place] leukocytes in Hospital Blood by Automated count ID Date Data Source [id number] 03/01/2019 05:08:00 AM EST [facility] Value Range Interpretation Description Data Sup porting Code Source(s) Document(s ) Monocytes/100 11.2 % [place] leukocytes in Hospital Blood by Automated count ID Date Data Source [id number] 03/01/2019 05:08:00 AM [facility] Name Value Range Interpretation Description Data Sup porting Code Source(s) Document(s ) Lymphocytes/10 33.1 % [place] 0 leukocytes Hospital in Blood by Automated count ID Date Data Source [id number] 03/01/2019 05:08:00 AM [facility] Name Value Range Interpretation Description Data Sup porting Code Source(s) Document(s ) Neutrophils/10 50.8 % [place] 0 leukocytes Hospital in Blood by Automated count ID Date Data Source [id number] 03/01/2019 05:08:[address] [facility] Value Range Interpretation Description Data Sup porting Code Source(s) Document(s ) Platelet mean 11.8 fL [facility] volume Hospital [Entitic volume] in Blood by Automated count ID Date Data Source [id number] 03/01/2019 05:08:[address] [facility] Value Range Interpretation Description Data Sup porting Code Source(s) Document(s ) Platelets 245 [place] [#/volume] in 10*3/uL Hospital Blood by Automated count ID Date Data Source [id number] 03/01/2019 05:08:[address] [facility] Value Range Interpretation Description Data Sup porting Code Source(s) Document(s ) Erythrocyte 14.7 % [facility] distribution Hospital width [Ratio] by Automated count ID Date Data Source [id number] 03/01/2019 05:08:[address] [facility] Value Range Interpretation Description Data Sup porting Code Source(s) Document(s ) Erythrocyte mean 33.6 [facility] corpuscular g/dL Hospital hemoglobin concentration [Mass/volume] by Automated count ID Date Data Source [id number] 03/01/2019 05:08:00 AM [facility] Name Value Range Interpretation Description Data Sup porting Code Source(s) Document(s ) Erythrocyte 29.6 pg [facility] mean Hospital corpuscular hemoglobin [Entitic mass] by Automated count ID Date Data Source [id number] 03/01/2019 05:08:00 AM [facility] Name Value Range Interpretation Description Data Sup porting Code Source(s) Document(s ) Erythrocyte 88.1 fL [facility] mean Hospital corpuscular volume [Entitic volume] by Automated count ID Date Data Source [id number] 03/01/2019 05:08:00 AM [facility] Name Value Range Interpretation Description Data Sup porting Code Source(s) Document(s ) Hematocrit 34.8 % [place] [Volume Hospital Fraction] of Blood by Automated count ID Date Data Source [id number] 03/01/2019 05:08:00 AM [facility] Name Value Range Interpretation Description Data Sup porting Code Source(s) Document(s ) Hemoglobin 11.7 g/dL [facility] [Mass/volume] Hospital in Blood ID Date Data Source [id number] 03/01/2019 05:08:00 AM [facility] Name Value Range Interpretation Description Data Sup porting Code Source(s) Document(s ) Erythrocytes 3.95 [place] [#/volume] in 10*6/uL Hospital Blood by Automated count ID Date Data Source [id number] 03/01/2019 05:08:00 AM [facility] Name Value Range Interpretation Description Data Sup porting Code Source(s) Document(s ) Leukocytes 5.1 [place] [#/volume] in 10*3/uL Hospital Blood by Automated count ID Date Data Source [id number] 02/15/2019 12:00:00 PM [facility] Pediatric Allergist:HARRIET ARGUELLO Name Value Range Interpretation Description Data Sup porting Code Source(s) Document(s ) Glucose 353 mg/dL [facility] [Mass/volume] Hospital in Capillary blood by Glucometer ID Date Data Source [id number] 02/15/2019 08:01:00 AM [facility] Name Value Range Interpretation Description Data Sup porting Code Source(s) Document(s ) GLUCOSE RN Notified [facility] ID Date Data Source [id number] 02/15/2019 07:33:00 AM [facility] UNITS ARE IN ml/min/1.73m2.IF PATIENT IS -[place] R[place], MULTIPLY REPORTED RESULT BY 1.21. Name Value Range Interpretation Description Data Sup porting Code Source(s) Document(s ) Glomerular > 60 [facility] filtration mL/min Hospital rate/1.73 sq M.predicted [Volume Rate/Area] in Serum or Plasma by Creatinine-bas ed formula (MDRD) ID Date Data Source [id number] 02/15/2019 07:33:00 AM [facility] UNITS ARE IN ml/min/1.73m2.IF PATIENT IS -[place], MULTIPLY REPORTED RESULT BY 1.21. Name Value Range Interpretation Description Data Sup porting Code Source(s) Document(s ) Glomerular > 60 [facility] filtration mL/min Hospital rate/1.73 sq M.predicted [Volume Rate/Area] in Serum or Plasma by Creatinine-bas ed formula (MDRD) ID Date Data Source [id number] 02/15/2019 07:33:00 AM [facility] Name Value Range Interpretation Description Data Sup porting Code Source(s) Document(s ) Calcium 8.5 mg/dL [facility] [Mass/volume Hospital ] in Serum or Plasma ID Date Data Source [id number] 02/15/2019 07:33:00 AM [facility] UNITS ARE IN ml/min/1.73m2.IF PATIENT IS -[place], MULTIPLY REPORTED RESULT BY 1.21. Name Value Range Interpretation Description Data Sup porting Code Source(s) Document(s ) Glomerular > 60 [facility] filtration mL/min Hospital rate/1.73 sq M.predicted [Volume Rate/Area] in Serum or Plasma by Creatinine-bas ed formula (MDRD) ID Date Data Source [id number] 02/15/2019 07:33:00 AM [facility] Name Value Range Interpretation Code Description Data Bryanna rce(s) Supporting Document(s ) Urea 16.3 [place] nitrogen/Cre Hospital atinine [Mass Ratio] in Serum or Plasma ID Date Data Source [id number] 02/15/2019 07:33:00 AM [facility] Name Value Range Interpretation Description Data Sup porting Code Source(s) Document(s ) Creatinine 0.8 mg/dL [place] [Mass/volume] Hospital in Serum or Plasma ID Date Data Source [id number] 02/15/2019 07:33:00 AM [facility] Name Value Range Interpretation Description Data Sup porting Code Source(s) Document(s ) Urea 13 mg/dL [facility] nitrogen Hospital [Mass/volume ] in Serum or Plasma ID Date Data Source [id number] 02/15/2019 07:33:00 AM [facility] Name Value Range Interpretation Code Description Data Bryanna rce(s) Supporting Document(s ) Anion gap in 11 [place] Serum or [facility] Plasma ID Date Data Source [id number] 02/15/2019 07:33:00 AM [facility] Name Value Range Interpretation Description Data Sup porting Code Source(s) Document(s ) Carbon 31 mmol/L [place] dioxide, Hospital total [Moles/volu me] in Serum or Plasma ID Date Data Source [id number] 02/15/2019 07:33:00 AM [facility] Name Value Range Interpretation Description Data Sup porting Code Source(s) Document(s ) Chloride 100 [place] [Moles/volum mmol/L Hospital e] in Serum or Plasma ID Date Data Source [id number] 02/15/2019 07:33:00 AM [facility] Name Value Range Interpretation Description Data Sup porting Code Source(s) Document(s ) Potassium 4.3 [place] [Moles/volume mmol/L Hospital ] in Serum or Plasma ID Date Data Source [id number] 02/15/2019 07:33:00 AM [facility] Name Value Range Interpretation Description Data Sup porting Code Source(s) Document(s ) Sodium 138 mmol/L [place] [Moles/volu Hospital me] in Serum or Plasma ID Date Data Source [id number] 02/15/2019 07:33:00 AM [facility] NOTIFICATION AND READ BACK OF CRITICAL R ESULTS TO GEREMIAS SULLIVAN R.N/EVELIA AT 0821 ON 02/15/19 BY Sd Masterson.PLEASE NOTE CHANGE IN CRITICAL GLUCOSE VALUES EFFECTIVE 04/22/17.REPORTED CRITICAL VALUES SHOULD B E INTERPRETED WITHIN CLINICAL CONTEXT. Name Value Range Interpretation Description Data Sup porting Code Source(s) Document(s ) Glucose 581 mg/dL [facility] [Mass/volume Hospital ] in Serum or Plasma ID Date Data Source [id number] 02/14/2019 04:13:00 PM [facility] Name Value Range Interpretation Description Data Sup porting Code Source(s) Document(s ) Ammonia 50 mmol/L [place] [Moles/volum Hospital e] in Plasma ID Date Data Source [id number] 02/14/2019 10:52:00 AM [facility] Name Value Range Interpretation Code Description Data Bryanna rce(s) Supporting Document(s ) Lipase 20 U/L [place] [Enzymatic Hospital activity/vo lume] in Serum or Plasma ID Date Data Source [id number] 02/14/2019 10:52:00 AM [facility] REFERENCE RANGES: NONE DETECTED <20 MG/DL NONE TO MILD EUPHOR[place] 20-49 MG/DL MILD EUPHORIA 50-99 MG/DL MODERATE EUPHORIA 100-149 MG/DL INTOXICATION 150-300 MG/DL Name Value Range Interpretation Description Data Sup porting Code Source(s) Document(s ) Ethanol < 20 [place] [Mass/volume mg/dL Hospital ] in Serum or Plasma ID Date Data Source [id number] 02/14/2019 10:52:00 AM [facility] TEST RESULT IS A TOTAL TRICYCLIC VALUE.T RICYCLIC ANTIDEPRESSANT REFERENCE RANGE: AMITRIPTYLINE AND METABOLITE (NORTRIPTYL INE) TOTAL THERAPEUTIC: 75 - 225 NG/ML. TOTAL TOXIC: > 400 NG/ML. NORTRIPTYLINE ONLY TOTAL THERAPEUTIC: 50 - 150 NG/ML. TOTAL TOXIC: > 400 NG/ML. IMIPRAMINE AND METABOLITE (DESIPRAMINE) TOTAL THERAPEUTIC: 125 - 175 NG/ML. TOTAL TOXIC: > 400 NG/ML. Name Value Range Interpretation Description Data Sup porting Code Source(s) Document(s ) TRICYCLIC < 80 [place] ANTIDEPRESSANT ng/mL Hospital ID Date Data Source [id number] 02/14/2019 10:52:00 AM [facility] REFERENCE RANGES: ANALGESIC: 0.0 - 10.0 MG/DL. ARTHRITIC THERAPY: 15.0 - 30.0 MG/DL. Name Value Range Interpretation Description Data Sup porting Code Source(s) Document(s ) Salicylates < 3.0 [facility] [Mass/volume] mg/dL Hospital in Serum or Plasma ID Date Data Source [id number] 02/14/2019 10:52:00 AM EST [facility] THERAPEUTIC RANGE: 10.0-30.0 UG/MLTOXIC RANGE: 4 HRS AFTER INGESTION >150 UG/ML 12 HRS AFTER INGESTION >35 UG/ML Name Value Range Interpretation Description Data Sup porting Code Source(s) Document(s ) ACETAMINOPHEN < 10.0 [facility] ug/mL Hospital ID Date Data Source [id number] 02/14/2019 10:52:00 AM [facility] Name Value Range Interpretation Code Description Data Bryanna rce(s) Supporting Document(s ) Lipase 20 U/L [facility] [Enzymatic Hospital activity/vo lume] in Serum or Plasma ID Date Data Source [id number] 02/14/2019 10:52:00 AM [facility] CUT-OFF >= 25 NG/ML.THE FINDINGS OF THE URINE DRUG SCREEN ARE USED SOLELY FOR PATIENT MANAGEMENT AND GUIDANCE. THE RESULTS FREEDOM ULD NOT BE USED FOR FORENSIC PURPOSE. ANY CLINICALLY UNSUSPECTED POSITIVE DRUG SCR EEN CAN BE CONFIRMED BY CALLING THE LABORATORY 3 DAYS WITHIN RECEIPT OF REPO RT. Name Value Range Interpretation Code Description Data Bryanna rce(s) Supporting Document(s ) PCP (UR) NEGATIVE [facility] ID Date Data Source [id number] 02/14/2019 10:52:00 AM [facility] CUT-OFF >= 50 NG/ML. Name Value Range Interpretation Code Description Data Bryanna rce(s) Supporting Document(s ) THC (UR) NEGATIVE [facility] ID Date Data Source [id number] 02/14/2019 10:52:00 AM [facility] CUT-OFF >= 300 NG/ML. Name Value Range Interpretation Description Data Sup porting Code Source(s) Document(s ) OPIATES (UR) NEGATIVE [facility] ID Date Data Source [id number] 02/14/2019 10:52:00 AM [facility] CUT-OFF >= 300 NG/ML. Name Value Range Interpretation Description Data Sup porting Code Source(s) Document(s ) COCAINE (UR) POSITIVE [facility] ID Date Data Source [id number] 02/14/2019 10:52:00 AM [facility] CUT-OFF >= 200 NG/ML. Name Value Range Interpretation Description Data Sup porting Code Source(s) Document(s ) BENZODIAZEPINES NEGATIVE [place] (UR) [facility] ID Date Data Source [id number] 02/14/2019 10:52:00 AM [facility] CUT-OFF >= 200 NG/ML. Name Value Range Interpretation Description Data Sup porting Code Source(s) Document(s ) BARBITURATES NEGATIVE [facility] (UR) Hospital ID Date Data Source [id number] 02/14/2019 10:52:00 AM [facility] CUT-OFF >= 1000 NG/ML. Name Value Range Interpretation Description Data Sup porting Code Source(s) Document(s ) AMPHETAMINES NEGATIVE [facility] (UR) Hospital ID Date Data Source [id number] 02/14/2019 10:52:00 AM [facility] REFERENCE RANGES: NONE DETECTED <20 MG/DL NONE TO MILD [place] 20-49 MG/DL MILD EU[place] 50-99 MG/DL MODERATE [place] 100-149 MG/DL INTOXICATION 150-300 MG/DL Name Value Range Interpretation Description Data Sup porting Code Source(s) Document(s ) Ethanol < 20 [facility] [Mass/volume mg/dL Hospital ] in Serum or Plasma ID Date Data Source [id number] 02/14/2019 10:52:00 AM [facility] TEST RESULT IS A TOTAL TRICYCLIC VALUE.T RICYCLIC ANTIDEPRESSANT REFERENCE RANGE: AMITRIPTYLINE AND METABOLITE (NORTRIPTYL INE) TOTAL THERAPEUTIC: 75 - 225 NG/ML. TOTAL TOXIC: > 400 NG/ML. NORTRIPTYLINE ONLY TOTAL THERAPEUTIC: 50 - 150 NG/ML. TOTAL TOXIC: > 400 NG/ML. IMIPRAMINE AND METABOLITE (DESIPRAMINE) TOTAL THERAPEUTIC: 125 - 175 NG/ML. TOTAL TOXIC: > 400 NG/ML. Name Value Range Interpretation Description Data Sup porting Code Source(s) Document(s ) TRICYCLIC < 80 [facility] ANTIDEPRESSANT ng/mL Hospital ID Date Data Source [id number] 02/14/2019 10:52:00 AM [facility] REFERENCE RANGES: ANALGESIC: 0.0 - 10.0 MG/DL. ARTHRITIC THERAPY: 15.0 - 30.0 MG/DL. Name Value Range Interpretation Description Data Sup porting Code Source(s) Document(s ) Salicylates < 3.0 [facility] [Mass/volume] mg/dL Hospital in Serum or Plasma ID Date Data Source [id number] 02/14/2019 10:52:00 AM [facility] THERAPEUTIC RANGE: 10.0-30.0 UG/MLTOXIC RANGE: 4 HRS AFTER INGESTION >150 UG/ML 12 HRS AFTER INGESTION >35 UG/ML Name Value Range Interpretation Description Data Sup porting Code Source(s) Document(s ) ACETAMINOPHEN < 10.0 [facility] ug/mL Hospital ID Date Data Source [id number] 02/14/2019 10:52:00 AM [facility] Name Value Range Interpretation Code Description Data Bryanna rce(s) Supporting Document(s ) Lipase 20 U/L [facility] [Enzymatic Hospital activity/vo lume] in Serum or Plasma ID Date Data Source [id number] 02/14/2019 10:52:00 AM [facility] Name Value Range Interpretation Description Data Sup porting Code Source(s) Document(s ) Aspartate 79 U/L [facility] aminotransferase [facility] [[facility] activity/volume] in Serum or Plasma ID Date Data Source [id number] 02/14/2019 10:52:00 AM [facility] Name Value Range Interpretation Description Data Sup porting Code Source(s) Document(s ) Alanine 36 U/L [facility] aminotransferase [facility] [[facility]atic Hospital activity/volume] in Serum or Plasma ID Date Data Source [id number] 02/14/2019 10:52:00 AM [facility] Name Value Range Interpretation Description Data Sup porting Code Source(s) Document(s ) Alkaline 118 U/L [facility] phosphatase [facility] [Enzymatic activity/volume ] in Serum or Plasma ID Date Data Source [id number] 02/14/2019 10:52:00 AM [facility] Name Value Range Interpretation Description Data Sup porting Code Source(s) Document(s ) Bilirubin.t 1.2 mg/dL [facility] [Mass/volum e] in Serum or Plasma ID Date Data Source [id number] 02/14/2019 10:52:00 AM [facility] Name Value Range Interpretation Code Description Data Bryanna rce(s) Supporting Document(s ) [facility]in[facility] Ratio[facility] in Serum or Plasma ID Date Data Source [id number] 02/14/2019 10:52:00 AM [facility] Name Value Range Interpretation Description Data Sup porting Code Source(s) Document(s ) Albumin 3.8 g/dL [facility] [Mass/volume Hospital ] in Serum or Plasma ID Date Data Source [id number] 02/14/2019 10:52:00 AM [facility] Name Value Range Interpretation Description Data Sup porting Code Source(s) Document(s ) Protein 7.2 g/dL [facility] [Mass/volume Hospital ] in Serum or Plasma ID Date Data Source [id number] 02/14/2019 10:52:00 AM [facility] Name Value Range Interpretation Description Data Sup porting Code Source(s) Document(s ) Leukocyte NEGATIVE [facility] [Presence] in Urine by Test strip ID Date Data Source [id number] 02/14/2019 10:52:00 AM EST [facility] Name Value Range Interpretation Description Data Sup porting Code Source(s) Document(s ) URINE NEGATIVE [facility] NITRITES Hospital ID Date Data Source [id number] 02/14/2019 10:52:00 AM EST [facility] Name Value Range Interpretation Description Data Sup porting Code Source(s) Document(s ) Erythrocytes NEGATIVE [facility] [#/volume] in Hospital Urine by Test strip ID Date Data Source [id number] 02/14/2019 10:52:00 AM [facility] Name Value Range Interpretation Code Description Data Bryanna rce(s) Supporting Document(s ) Bilirubin. NEGATIVE [facility] total [facility] [Presence] in Urine by Test strip ID Date Data Source [id number] 02/14/2019 10:52:00 AM [facility] Name Value Range Interpretation Description Data Sup porting Code Source(s) Document(s ) Urobilinogen 1.0 [facility] [Units/volume] mg/dL Hospital in Urine by Test strip ID Date Data Source [id number] 02/14/2019 10:52:00 AM EST [facility] Name Value Range Interpretation Description Data Sup porting Code Source(s) Document(s ) Ketones NEGATIVE [facility] [Mass/volume Hospital ] in Urine by Test strip ID Date Data Source [id number] 02/14/2019 10:52:00 AM [facility] Name Value Range Interpretation Code Description Data Bryanna rce(s) Supporting Document(s ) Glucose 3+ [facility] [Mass/volume Hospital ] in Urine by Test strip ID Date Data Source [id number] 02/14/2019 10:52:00 AM [facility] Name Value Range Interpretation Description Data Sup porting Code Source(s) Document(s ) Protein NEGATIVE [facility] [Presence] Hospital in Urine by Test strip ID Date Data Source [id number] 02/14/2019 10:52:00 AM [facility] Name Value Range Interpretation Code Description Data Bryanna rce(s) Supporting Document(s ) pH of Urine 6.5 [facility] by Test Hospital strip ID Date Data Source [id number] 02/14/2019 10:52:00 AM [facility] Name Value Range Interpretation Code Description Data Supporting Source(s) Document(s ) Specific 1.039 [facility] gravity of Hospital Urine by Test strip ID Date Data Source [id number] 02/14/2019 10:52:00 AM [facility] Name Value Range Interpretation Description Data Sup porting Code Source(s) Document(s ) Clarity in Urine CLEAR [facility] by Refractometry Hospital automated ID Date Data Source [id number] 02/14/2019 10:52:00 AM [facility] Name Value Range Interpretation Code Description Data Bryanna rce(s) Supporting Document(s ) Color of YELLOW [facility] Urine Hospital ID Date Data Source [id number] 02/14/2019 10:52:00 AM [facility] Name Value Range Interpretation Description Data Sup porting Code Source(s) Document(s ) Platelet mean 11.9 fL [facility] volume Hospital [Entitic volume] in Blood by Automated count ID Date Data Source [id number] 02/14/2019 10:52:00 AM [facility] Name Value Range Interpretation Description Data Sup porting Code Source(s) Document(s ) Platelets 198 [facility] [#/volume] in 10*3/uL Hospital Blood by Automated count ID Date Data Source [id number] 02/14/2019 10:52:00 AM [facility] Name Value Range Interpretation Description Data Sup porting Code Source(s) Document(s ) Erythrocyte 13.7 % [facility] Hospital width [Ratio] by Automated count ID Date Data Source [id number] 02/14/2019 10:52:[address] [facility] Value Range Interpretation Description Data Sup porting Code Source(s) Document(s ) Erythrocyte mean 34.2 [facility] corpuscular g/dL Hospital hemoglobin concentration [Mass/volume] by Automated count ID Date Data Source [id number] 02/14/2019 10:52:[address] [facility] Value Range Interpretation Description Data Sup porting Code Source(s) Document(s ) Erythrocyte 29.6 pg [facility] corpuscular hemoglobin [Entitic mass] by Automated count ID Date Data Source [id number] 02/14/2019 10:52:[address] [facility] Value Range Interpretation Description Data Sup porting Code Source(s) Document(s ) Erythrocyte 86.5 fL [facility] corpuscular volume [Entitic volume] by Automated count ID Date Data Source [id number] 02/14/2019 10:52:[address] [facility] Value Range Interpretation Description Data Sup porting Code Source(s) Document(s ) Hematocrit 37.1 % [facility] [Volume Hospital Fraction] of Blood by Automated count ID Date Data Source [id number] 02/14/2019 10:52:00 AM [facility] Name Value Range Interpretation Description Data Sup porting Code Source(s) Document(s ) Hemoglobin 12.7 g/dL [facility] [Mass/volume] Hospital in Blood ID Date Data Source [id number] 02/14/2019 10:52:00 AM EST [facility] Name Value Range Interpretation Description Data Sup porting Code Source(s) Document(s ) Erythrocytes 4.29 [facility] [#/volume] in 10*6/uL Hospital Blood by Automated count ID Date Data Source [id number] 02/14/2019 10:52:00 AM EST [facility] Name Value Range Interpretation Description Data Sup porting Code Source(s) Document(s ) Leukocytes 5.3 [facility] [#/volume] in 10*3/uL Hospital Blood by Automated count Procedure Social History Code Duration Value Status Description Data Source(s ) Smoking 01/18/2020 Ex-smoker completed Ex-smoker [facility] 06:37:00 PM EDT (finding) (finding) Hospital Smoking 01/10/2020 Tobacco smoking completed Tobacco smoking [facility] 01:14:00 AM EDT consumption consumption Hospita [facility] unknown (finding) unknown (finding) Smoking 01/08/2020 Tobacco smoking completed Tobacco smoking [facility] 08:00:00 AM EDT consumption consumption Hospita l unknown (finding) unknown (finding) Smoking 12/21/2019 Never smoked completed Never smoked [facility] 06:[facility]:00 AM EDT tobacco (finding) tobacco (find ing) Hospital Smoking 12/16/2019 Ex-smoker completed Ex-smoker [facility] 03:47:00 AM EDT (finding) (finding) Hospital Smoking 11/30/2019 Ex-smoker completed Ex-smoker [facility] 09:30:00 PM EDT (finding) (finding) Hospital Smoking 11/21/2019 Ex-smoker completed Ex-smoker [facility] 01:19:00 AM EDT (finding) (finding) Hospital Smoking 10/26/2019 Ex-smoker completed Ex-smoker [facility] 03:24:00 AM EDT (finding) (finding) Hospital Smoking 06/17/2019 Current some day completed Current some day [facility] 11:02:00 PM EST smoker smoker Hospital Smoking 05/26/2019 Never smoked completed Never smoked [facility] 08:05:00 AM EST tobacco (finding) tobacco (find ing) Hospital Smoking 05/19/2019 Ex-smoker completed Ex-smoker [facility] 09:31:00 PM EST (finding) (finding) Hospital Smoking 04/16/2019 Never smoked completed Never smoked [facility] 12:50:00 PM EST tobacco (finding) tobacco (find ing) Hospital Smoking 03/02/2019 Never smoked completed Never smoked [facility] 03:31:00 PM EST tobacco (finding) tobacco (find ing) Hospital Vital Signs ID Date Data Source UNK Name Value Range Interpretation Code Description Data Source(s) Diastolic blood 76 mm[Hg] 76 mm[Hg] [facility] pressure Hospital Systolic blood 116 mm[Hg] 116 mm[Hg] [facility] pressure Hospital Respiratory rate 18 /min 18 /min [facility] Heart rate 69 /min 69 /min [facility] Body temperature 36.51512 [facility] 36.16239 [facility] Body temperature 97.6 [degF] 97.6 [degF] [facility] Systolic blood 131 mm[Hg] 131 mm[Hg] [facility] pressure [facility] Diastolic blood 68 mm[Hg] 68 mm[Hg] [facility] Respiratory rate 15 /min 15 /min [facility] Heart rate 69 /min 69 /min [facility] Body mass index 20.0 kg/m2 20.0 kg/m2 [facility] (BMI) [Ratio] Hospital Body weight 110.23 [lb_av] 110.23 [lb_av] [facility] Diastolic blood 84 mm[Hg] 84 mm[Hg] [facility] Systolic blood 157 mm[Hg] 157 mm[Hg] [facility] pressure Hospital Respiratory rate 18 /min 18 /min [facility] Heart rate 60 /min 60 /min [facility] Body temperature 36.79902 [facility] 36.22495 [facility] Body temperature 97.6 [degF] 97.6 [degF] [facility] Body mass index 20.0 kg/m2 20.0 kg/m2 [facility] (BMI) [Ratio] Hospital Body weight 120.24 [lb_av] 120.24 [lb_av] [facility] Diastolic blood 87 mm[Hg] 87 mm[Hg] [facility] pressure Hospital Systolic blood 142 mm[Hg] 142 mm[Hg] [facility] Hospital Respiratory rate 18 /min 18 /min [facility] Heart rate 55 /min 55 /min [facility] Body temperature 36.75861 [facility] 36.59706 [facility] Body temperature 97.8 [degF] 97.8 [degF] [facility] Body mass index 20.0 kg/m2 20.0 kg/m2 [facility] (BMI) [Ratio] Hospital Body weight 129.28 [lb_av] 129.28 [lb_av] [facility] Diastolic blood 90 mm[Hg] 90 mm[Hg] [place] [facility] Systolic blood 164 mm[Hg] 164 mm[Hg] [facility] Respiratory rate 18 /min 18 /min [facility] Heart rate 85 /min 85 /min [facility] Body temperature 36.59433 [facility] 36.03280 [facility] Body temperature 97.6 [degF] 97.6 [degF] [facility] Body mass index 19.0 kg/m2 19.0 kg/m2 [facility] ins (BMI) [Ratio] Hospital Body weight 121.25 [lb_av] 121.25 [lb_av] [facility] Diastolic blood 73 mm[Hg] 73 mm[Hg] [facility] pressure Hospital Systolic blood 153 mm[Hg] 153 mm[Hg] [facility] pressure Hospital Respiratory rate 18 /min 18 /min [facility] Heart rate 55 /min 55 /min [facility] Body temperature 36.81130 [facility] 36.04356 [facility] Body temperature 98.0 [degF] 98.0 [degF] [facility] Body mass index 20.2 kg/m2 20.2 kg/m2 [facility] ins (BMI) [Ratio] Hospital Body weight 125 [lb_av] 125 [lb_av] [facility] Diastolic blood 81 mm[Hg] 81 mm[Hg] [facility] pressure Hospital Systolic blood 121 mm[Hg] 121 mm[Hg] [facility] pressure Hospital Respiratory rate 18 /min 18 /min [facility] Heart rate 75 /min 75 /min [facility] Body temperature 36.12091 [facility] 36.83756 [facility] Body temperature 98.2 [degF] 98.2 [degF] [facility] Systolic blood 121 mm[Hg] 121 mm[facility]Hg] [facility] 121 mm[Hg] 121 mm[Hg] [facility] Diastolic blood 72 mm[Hg] 72 mm[Hg] [facility] ins pressure Hospital Diastolic blood 72 mm[Hg] 72 mm[Hg] [facility] Respiratory rate 16 /min 16 /min [facility] Respiratory rate 16 /min 16 /min [facility] Heart rate 81 /min 81 /min [facility] Heart rate 81 /min 81 /min [facility] Systolic blood 121 mm[Hg] 121 mm[Hg] [facility] Systolic blood 121 mm[Hg] 121 mm[Hg] [facility] Diastolic blood 72 mm[Hg] 72 mm[Hg] [facility] Diastolic blood 72 mm[Hg] 72 mm[Hg] [facility] Respiratory rate 16 /min 16 /min [facility] Respiratory rate 16 /min 16 /min [facility] Heart rate 81 /min 81 /min [facility] Heart rate 81 /min 81 /min [facility] Systolic blood 121 mm[Hg] 121 mm[Hg] [facility] Systolic blood 121 mm[Hg] 121 mm[Hg] [facility] Diastolic blood 72 mm[Hg] 72 mm[Hg] [facility] Diastolic blood 72 mm[Hg] 72 mm[Hg] [facility] Respiratory rate 16 /min 16 /min [facility] Respiratory rate 16 /min 16 /min [facility] Heart rate 81 /min 81 /min [facility] Heart rate 81 /min 81 /min [facility] Systolic blood 124 mm[Hg] 124 mm[Hg] [facility] Diastolic blood 76 mm[Hg] 76 mm[Hg] [facility] Respiratory rate 15 /min 15 /min [facility] Heart rate 77 /min 77 /min [facility] Systolic blood 124 mm[Hg] 124 mm[Hg] [facility] Diastolic blood 76 mm[Hg] 76 mm[Hg] [facility] Respiratory rate 15 /min 15 /min [facility] Heart rate 77 /min 77 /min [facility] Body mass index 24.0 kg/m2 24.0 kg/m2 [facility] (BMI) [Ratio] Hospital Body weight 149.91 [lb_av] 149.91 [lb_av] [facility] Diastolic blood 72 mm[Hg] 72 mm[Hg] [facility] Systolic blood 132 mm[Hg] 132 mm[Hg] [facility] Respiratory rate 17 /min 17 /min [facility] Heart rate 76 /min 76 /min [facility] Body temperature 36.19959 [facility] 36.36108 [facility] Body temperature 98.0 [degF] 98.0 [degF] [facility] Body mass index 24.0 kg/m2 24.0 kg/m2 [facility] (BMI) [Ratio] Hospital Body weight 150.31 [lb_av] 150.31 [lb_av] [facility] Diastolic blood 73 mm[Hg] 73 mm[Hg] [facility] pressure Hospital Systolic blood 131 mm[Hg] 131 mm[Hg] [facility] pressure Hospital Respiratory rate 18 /min 18 /min [facility] Heart rate 62 /min 62 /min [facility] Body temperature 37.74881 [facility] 37.75008 [facility] Body temperature 98.6 [degF] 98.6 [degF] [facility] Body mass index 20.0 kg/m2 20.0 kg/m2 [facility] (BMI) [Ratio] Hospital Body weight 125.31 [lb_av] 125.31 [lb_av] [facility] Diastolic blood 86 mm[Hg] 86 mm[Hg] [facility] pressure Hospital Systolic blood 156 mm[Hg] 156 mm[Hg] [facility] pressure Hospital Respiratory rate 18 /min 18 /min [facility] Heart rate 65 /min 65 /min [facility] Body temperature 36.26240 [facility] 36.99741 [facility] Body temperature 98.2 [degF] 98.2 [degF] [facility] Body mass index 20.0 kg/m2 20.0 kg/m2 [facility] (BMI) [Ratio] Hospital Body weight 125.27 [lb_av] 125.27 [lb_av] [facility] Diastolic blood 74 mm[Hg] 74 mm[Hg] [facility] pressure Hospital Systolic blood 136 mm[Hg] 136 mm[Hg] [facility] pressure Hospital Respiratory rate 18 /min 18 /min [facility] Heart rate 67 /min 67 /min [facility] Body temperature 36.58270 [facility] 36.77838 [facility] Body temperature 98.3 [degF] 98.3 [degF] [facility] Body mass index 17.0 kg/m2 17.0 kg/m2 [facility] (BMI) [Ratio] Hospital Body weight 110.23 [lb_av] 110.23 [lb_av] [facility] Diastolic blood 88 mm[Hg] 88 mm[Hg] [facility] Hospital Systolic blood 147 mm[Hg] 147 mm[Hg] [facility] Hospital Respiratory rate 18 /min 18 /min [facility] Heart rate 65 /min 65 /min [facility] Body temperature 37.38455 [facility] 37.16517 [facility] Body temperature 98.7 [degF] 98.7 [degF] [facility] Body mass index 19.0 kg/m2 19.0 kg/m2 [facility] (BMI) [Ratio] Hospital Body weight 122.25 [lb_av] 122.25 [lb_av] [facility] Diastolic blood 93 mmHg 93 mmHg [facility] Systolic blood 157 mmHg 157 mmHg [facility] Respiratory rate 16 bpm 16 bpm [facility] Heart rate 75 bpm 75 bpm [facility] Body temperature 98.5 [facility] 98.[facility] Di[facility] blood 95 mmHg 95 mmHg [facility] Systolic blood 145 mmHg 145 mmHg [facility] Respiratory rate 18 bpm 18 bpm [facility] Heart rate 86 bpm 86 bpm [facility] Body temperature 97.1 Fahrenheit 97.1 hrenh t [facility] Respiratory rate 18 bpm 18 bpm [facility] Body temperature 97.9 Fahrenheit 97.9 Fahrenh t [facility] Diastolic blood 97 mmHg 97 mmHg [facility] Systolic blood 152 mmHg 152 mmHg [facility] Heart rate 83 bpm 83 bpm [facility] Respiratory rate 18 bpm 18 bpm [facility] Body temperature 98.7 Fahrenheit 98.7 Fahrenh t [facility] Diastolic blood 79 mmHg 79 mmHg [facility] Systolic blood 131 mmHg 131 mmHg [facility] Heart rate 78 bpm 78 bpm [facility] Diastolic blood 90 mmHg 90 mmHg [facility] Systolic blood 141 mmHg 141 mmHg [facility] Heart rate 82 bpm 82 bpm [facility] Diastolic blood 77 mmHg 77 mmHg [facility] Systolic blood 136 mmHg 136 mmHg [facility] Respiratory rate 18 bpm 18 bpm [facility] Heart rate 93 bpm 93 bpm [facility] Body temperature 97.9 [facility]ahrenheit 97.9 [facility] Body weight 129 lbs 129 lbs [facility] Diastolic blood 98 mmHg 98 mmHg [facility] Systolic blood 159 mmHg 159 mmHg [facility] Heart rate 104 bpm 104 bpm [facility] Diastolic blood 97 mmHg 97 mmHg [facility] Systolic blood 159 mmHg 159 mmHg [facility] Respiratory rate 18 bpm 18 bpm [facility] Heart rate 95 bpm 95 bpm [facility] Body temperature 98.6 Fahrenheit 98.6 [facility] Diastolic blood 90 mm[Hg] 90 mm[Hg] [facility] Systolic blood 146 mm[Hg] 146 mm[Hg] [facility] Respiratory rate 18 /min 18 /min [facility] Heart rate 77 /min 77 /min [facility] Body temperature 36.83152 [facility] 36.60600 [facility] Body temperature 98.1 [degF] 98.1 [degF] [facility] Body mass index 19.0 kg/m2 19.0 kg/m2 [facility] (BMI) [Ratio] Hospital Body weight 122.25 [lb_av] 122.25 [lb_av] [facility] Diastolic blood 87 mmHg 87 mmHg [facility] Systolic blood 160 mmHg 160 mmHg [facility] Heart rate 112 bpm 112 bpm [facility] Diastolic blood 91 mmHg 91 mmHg [facility] Systolic blood 142 mmHg 142 mmHg [facility] Respiratory rate 18 bpm 18 bpm [facility] Heart rate 107 bpm 107 bpm [facility] Body temperature 97.3 Fahrenheit 97.3 [facility] Diastolic blood 71 mm[Hg] 71 mm[Hg] [facility] Systolic blood 121 mm[Hg] 121 mm[Hg] [facility] Respiratory rate 18 /min 18 /min [facility] Heart rate 90 /min 90 /min [facility] Body temperature 36.53771 [facility] 36.69727 [facility] Body temperature 98.3 [degF] 98.3 [degF] [facility] Body mass index 24.0 kg/m2 24.0 kg/m2 [facility] (BMI) [Ratio] Hospital Body weight 139.99 [lb_av] 139.99 [lb_av] [facility] Diastolic blood 76 mm[Hg] 76 mm[Hg] [facility] ins pressure Hospital Systolic blood 126 mm[Hg] 126 mm[Hg] [facility] pressure Hospital Respiratory rate 18 /min 18 /min [facility] Heart rate 85 /min 85 /min [facility] Body temperature 37.81897 [facility] 37.79540 [facility] Body temperature 98.9 [degF] 98.9 [degF] [facility] Body mass index 21.0 kg/m2 21.0 kg/m2 [facility] (BMI) [Ratio] Hospital Body weight 130 [lb_av] 130 [lb_av] [facility] Diastolic blood 90 mm[Hg] 90 mm[Hg] [facility] pressure Hospital Systolic blood 159 mm[Hg] 159 mm[Hg] [facility] pressure Hospital Respiratory rate 18 /min 18 /min [facility] Heart rate 77 /min 77 /min [facility] Body temperature 36.85233 [facility] 36.05873 [facility] Body temperature 98.5 [degF] 98.5 [degF] [facility] Body mass index 20.0 kg/m2 20.0 kg/m2 [facility] ins (BMI) [Ratio] Hospital Body weight 129.28 [lb_av] 129.28 [lb_av] [facility] Diastolic blood 84 mm[Hg] 84 mm[Hg] [facility] pressure Hospital Systolic blood 136 mm[Hg] 136 mm[Hg] [facility] pressure Hospital Respiratory rate 18 /min 18 /min [facility] Heart rate 68 /min 68 /min [facility] Body temperature 37.13957 [facility] 37.74062 [facility] Body temperature 98.7 [degF] 98.7 [degF] [facility] Body mass index 19.0 kg/m2 19.0 kg/m2 [facility] (BMI) [Ratio] Hospital Body weight 120.26 [lb_av] 120.26 [lb_av] [facility] Diastolic blood 87 mm[Hg] 87 mm[Hg] [facility] Systolic blood 140 mm[Hg] 140 mm[Hg] [facility] Respiratory rate 18 /min 18 /min [facility] Heart rate 83 /min 83 /min [facility] Body temperature 36.93911 Ashanti 36.17268 Ashanti [facility] Body temperature 98.3 [degF] 98.3 [degF] [facility] Body mass index 19.0 kg/m2 19.0 kg/m2 [facility] (BMI) [Ratio] Hospital Body weight 130.27 [lb_av] 130.27 [lb_av] [facility] Diastolic blood 103 mmHg 103 mmHg [facility] Systolic blood 183 mmHg 183 mmHg [facility] Respiratory rate 18 bpm 18 bpm [facility] Heart rate 75 bpm 75 bpm [facility] Body temperature 98.5 Fahrenheit 98.5 Fahrenh t [facility] Diastolic blood 93 mmHg 93 mmHg [facility] Systolic blood 175 mmHg 175 mmHg [facility] Respiratory rate 20 bpm 20 bpm [facility] Heart rate 86 bpm 86 bpm [facility] Diastolic blood 93 mmHg 93 mmHg [facility] Systolic blood 165 mmHg 165 mmHg [facility] Respiratory rate 20 bpm 20 bpm [facility] Heart rate 89 bpm 89 bpm [facility] Body temperature 97.1 [facility]heit 97.1 [facility] Diastolic blood 82 mmHg 82 mmHg [facility] Systolic blood 128 mmHg 128 mmHg [facility] Respiratory rate 17 bpm 17 bpm [facility] Heart rate 115 bpm 115 bpm [facility] Body temperature 97.4 Fahrenheit 97.4 Fahrenh t [facility] Diastolic blood 79 mmHg 79 mmHg [facility] Systolic blood 115 mmHg 115 mmHg [facility] Respiratory rate 17 bpm 17 bpm [facility] Heart rate 109 bpm 109 bpm [facility] Body temperature 97.4 Fahrenheit 97.4 Fahrenh t [facility] Diastolic blood 83 mm[Hg] 83 mm[Hg] [facility] Systolic blood 132 mm[Hg] 132 mm[Hg] [facility] Respiratory rate 20 /min 20 /min [facility] Heart rate 83 /min 83 /min [facility] Body temperature 36.62377 Ashanti 36.93185 Ashanti [facility] Body temperature 97.9 [degF] 97.9 [degF] [facility] Body mass index 25.8 kg/m2 25.8 kg/m2 [facility] ins (BMI) [Ratio] Hospital Body weight 160 [lb_av] 160 [lb_av] [facility] Diastolic blood 90 mmHg 90 mmHg [facility] Systolic blood 143 mmHg 143 mmHg [facility] Respiratory rate 18 bpm 18 bpm [facility] Heart rate 107 bpm 107 bpm [facility] Diastolic blood 71 mmHg 71 mmHg [facility] Systolic blood 111 mmHg 111 mmHg [facility] Respiratory rate 18 bpm 18 bpm [facility] Heart rate 101 bpm 101 bpm [facility] Diastolic blood 104 mmHg 104 mmHg [facility] Systolic blood 182 mmHg 182 mmHg [facility] Respiratory rate 20 bpm 20 bpm [facility] Heart rate 83 bpm 83 bpm [facility] Body temperature 97.1 Fahrenheit 97.1 Fahrenhei t [facility] Diastolic blood 103 mmHg 103 mmHg [facility] Systolic blood 163 mmHg 163 mmHg [facility] Respiratory rate 20 bpm 20 bpm [facility] Heart rate 83 bpm 83 bpm [facility] Diastolic blood 87 mmHg 87 mmHg [facility] Systolic blood 146 mmHg 146 mmHg [facility] Respiratory rate 18 bpm 18 bpm [facility] Heart rate 86 bpm 86 bpm [facility] Diastolic blood 86 mmHg 86 mmHg [facility] Systolic blood 148 mmHg 148 mmHg [facility] Respiratory rate 18 bpm 18 bpm [facility] Heart rate 85 bpm 85 bpm [facility] Body temperature 97.6 Fahrenheit 97.6 Fahrenhei t [facility] Diastolic blood 105 mmHg 105 mmHg [facility] Systolic blood 162 mmHg 162 mmHg [facility] Respiratory rate 18 bpm 18 bpm [facility] Heart rate 86 bpm 86 bpm [facility] Diastolic blood 97 mmHg 97 mmHg [facility] Systolic blood 159 mmHg 159 mmHg [facility] Respiratory rate 18 bpm 18 bpm [facility] Heart rate 82 bpm 82 bpm [facility] Diastolic blood 94 mmHg 94 mmHg [facility] Systolic blood 173 mmHg 173 mmHg [facility] Respiratory rate 18 bpm 18 bpm [facility] Heart rate 74 bpm 74 bpm [facility] Diastolic blood 82 mmHg 82 mmHg [facility] Systolic blood 159 mmHg 159 mmHg [facility] Respiratory rate 18 bpm 18 bpm [facility] Heart rate 71 bpm 71 bpm [facility] Body temperature 97.7 Fahrenheit 97.7 Fahrenhei t [facility] Diastolic blood 85 mmHg 85 mmHg [facility] Systolic blood 159 mmHg 159 mmHg [facility] Respiratory rate 18 bpm 18 bpm [facility] Heart rate 74 bpm 74 bpm [facility] Diastolic blood 83 mmHg 83 mmHg [facility] Systolic blood 144 mmHg 144 mmHg [facility] Respiratory rate 18 bpm 18 bpm [facility] Heart rate 74 bpm 74 bpm [facility] Body temperature 97.9 Fahrenheit 97.9 Fahrenhei t [facility] Diastolic blood 100 mmHg 100 mmHg [facility] Systolic blood 146 mmHg 146 mmHg [facility] Respiratory rate 18 bpm 18 bpm [facility] Heart rate 71 bpm 71 bpm [facility] Body temperature 96.9 Fahrenheit 96.9 Fahrenhei t [facility] Diastolic blood 99 mmHg 99 mmHg [facility] Systolic blood 154 mmHg 154 mmHg [facility] Respiratory rate 18 bpm 18 bpm [facility] Heart rate 73 bpm 73 bpm [facility] Body temperature 96.9 Fahrenheit 96.9 Fahrenhei t [facility] Diastolic blood 84 mmHg 84 mmHg [facility] Systolic blood 130 mmHg 130 mmHg [facility] Diastolic blood 103 mmHg 103 mmHg [facility] Systolic blood 165 mmHg 165 mmHg [facility] Respiratory rate 20 bpm 20 bpm [facility] Heart rate 78 bpm 78 bpm [facility] Diastolic blood 97 mmHg 97 mmHg [facility] Systolic blood 160 mmHg 160 mmHg [facility] Respiratory rate 20 bpm 20 bpm [facility] Heart rate 79 bpm 79 bpm [facility] Body temperature 98.8 Fahrenheit 98.8 Fahrenhei t [facility] Diastolic blood 94 mmHg 94 mmHg [facility] Systolic blood 139 mmHg 139 mmHg [facility] Respiratory rate 18 bpm 18 bpm [facility] Heart rate 79 bpm 79 bpm [facility] Diastolic blood 89 mmHg 89 mmHg [facility] Systolic blood 149 mmHg 149 mmHg [facility] Respiratory rate 18 bpm 18 bpm [facility] Heart rate 76 bpm 76 bpm [facility] Body temperature 96.3 Fahrenheit 96.3 Fahrenhei t [facility] Diastolic blood 87 mmHg 87 mmHg [facility] Systolic blood 150 mmHg 150 mmHg [facility] Respiratory rate 18 bpm 18 bpm [facility] Heart rate 90 bpm 90 bpm [facility] Diastolic blood 84 mmHg 84 mmHg [facility] Systolic blood 149 mmHg 149 mmHg [facility] Respiratory rate 18 bpm 18 bpm [facility] Heart rate 84 bpm 84 bpm [facility] Body temperature 97.1 Fahrenheit 97.1 Fahrenhei t [facility] Diastolic blood 71 mm[Hg] 71 mm[Hg] [facility] Systolic blood 112 mm[Hg] 112 mm[Hg] [facility] Hospital Heart rate 84 /min 84 /min [facility] Body temperature 36.42502 Ashanti 36.89516 Ashanti [facility] Body temperature 98.3 [degF] 98.3 [degF] [facility] Respiratory rate 18 /min 18 /min [facility] Body mass index 20.0 kg/m2 20.0 kg/m2 [facility] (BMI) [Ratio] Hospital Body weight 128.26 [lb_av] 128.26 [lb_av] [facility] ID Date Data Source [id number] 01/20/2020 11:17:10 AM [facility] Name Value Range Interpretation Code Description Data Source(s) Body weight Measured 129 lb 129 lb [facility] ID Date Data Source [id number] 01/14/2020 03:50:20 PM [facility] Name Value Range Interpretation Code Description Data Source(s) Body weight Measured 129 lb 129 lb [facility] ID Date Data Source [id number] 12/22/2019 03:25:21 PM [facility] Name Value Range Interpretation Code Description Data Source(s) Body weight Measured 129 lb 129 lb [facility] ID Date Data Source [id number] 07/29/2019 03:46:49 PM [facility] Name Value Range Interpretation Code Description Data Source(s) Body weight Measured 129 lb 129 lb [facility] ID Date Data Source [id number] 05/25/2019 11:49:31 PM EST [facility] Name Value Range Interpretation Code Description Data Source(s) Body weight Measured 129 lb 129 lb [facility]
[2020-01-25 13:52] VITALS: BMI 19.2
--- NOTE | 2020-01-25 13:55 | HP ---
CIWA Score Nausea/Vomitin-Mild Nausea/No Vomiting Muscle Tremors: 3 Anxiety: 3 Agitation: 4-Moderately Restless Paroxysmal Sweats: No Perspiration Orientation: 3-Disoriented Date>2 days Tacttile Disturbances: 1-Very Mild Itch/Numbness Auditory Disturbances: 2-Mild Harshness/Frighten Visual Disturbances: 1-Very Mild Sensitivity Headache: 0-None Present CIWA-Ar Total Score: 18 - Admission Criteria OASAS Guidelines: Admission for Medically Managed Detox: Requires at least one of the followin. CIWA greater than 12 2. Seizures within the past 24 hours 3. Delirium tremens within the past 24 hours 4. Hallucinations within the past 24 hours 5. Acute intervention needed for co occurring medical disorder 6. Acute intervention needed for co occurring psychiatric disorder 7. Severe withdrawal that cannot be handled at a lower level of care (continued vomiting, continued diarrhea, abnormal vital signs) requiring intravenous medication and/or fluids 8. Admitting History and Physical - Admission Chief Complaint: Ms. Childress is a 60 yo woman who presents to [facility] requesting detox admission for alcohol use disorder. History of Present Illness: Ms. Childress is a 60 yo woman who presents to [facility] requesting detox admission for alcohol use disorder. 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 Bruce Hall (? spelling) [address] [facility] - Substance Use History Alcohol Substance amount: wine coolers on weekends, one pint GIN/2 days Frequency of use: Daily Substance route: Oral Date of Last Use: 01/21/20 (started age 20) No seizures Blackouts September 2019 Admits to [facility] of [facility] Cocaine- Powder Substance amount: $20 Frequency of use: Daily Substance route: Inhalation (ex: sniffing or snorting) Date of Last Use: 01/21/20 (started age 28) Marijuana/Hashish Substance amount: 1 blunts Frequency of use: Less than 3 times per week Substance route: Smoking Date of Last Use: 11/26/19 (started age 13) Nicotine Substance amount: former smoked stopped age 52 History Source: Patient Limitations to Obtaining History: No Limitations - Past Medical History ...LMP: 11/13/11 - Smoking History Smoking history: Unknown if ever smoked Have you smoked in the past 12 months: Yes Aproximately how many cigarettes per day: 1 - Alcohol/Substance Use Hx Alcohol Use: No Admission ROS [facility] - HPI Allergies/Adverse Reactions: Allergies Allergy/AdvReac Type Severity Reaction Status Date / Time No Known Allergies Allergy Verified 12/29/14 23:27 Exam Limitations: No Limitations - Ebola screening Have you traveled outside of the country in the last 21 days: No Have you been sick,other than usual withdrawal symptoms: No Do you have a fever: No - Review of Systems Constitutional: Unintentional Wgt. Loss (10 lb weight loss in the past one month) EENT: reports: Blurred Vision (lost her bifocals) Respiratory: reports: No Symptoms reported Cardiac: reports: No Symptoms Reported GI: reports: Nausea : reports: No Symptoms Reported, Other (vaginal bleeding 2 weeks ago) Musculoskeletal: reports: No Symptoms Reported Integumentary: reports: Other (scrapes on legs post fall 2 weeks ago) Neuro: reports: No Symptoms reported Endocrine: reports: No Symptoms Reported Hematology: reports: No Symptoms Reported Psychiatric: reports: Anxious Patient History - Patient Medical History Hx Anemia: Yes (since childhood) Hx Asthma: No Hx Chronic Obstructive Pulmonary Disease (COPD): No Hx Cancer: No Hx Cardiac Disorders: No Hx Congestive Heart Failure: No Hx Hypertension: Yes (on medication) Hx Hypercholesterolemia: No Hx Pacemaker: No HX Cerebrovascular Accident: No Hx Seizures: No Hx Dementia: No Hx Diabetes: Yes Hx Gastrointestinal Disorders: No Hx Liver Disease: Yes (cirrhosis for 8 yeaers) Hx Genitourinary Disorders: No Hx Sexually Transmitted Disorders: No Hx Renal Disease (ESRD): No Hx Thyroid Disease: Yes (GOITRE+ WITH HYPERTHRYROIDISM) Hx Human Immunodeficiency Virus (HIV): No Hx Hepatitis C: No Hx Depression: Yes Hx Suicide Attempt: Yes (20 yrs ago) Hx Schizophrenia: No - Patient Surgical History Past Surgical History: Yes Hx Neurologic Surgery: No Hx Cataract Extraction: No Hx Cardiac Surgery: No Hx Lung Surgery: No Hx Breast Surgery: No Hx Breast Biopsy: No Hx Abdominal Surgery: Yes (repair of umbilical hernia) Hx Appendectomy: No Hx Cholecystectomy: Yes (in 1997 in [facility]) Hx Genitourinary Surgery: No Hx Section: No Hx Orthopedic Surgery: No Anesthesia Reaction: No - PPD History Date: 03/31/14 Results: 0MM - Reproductive History Last Menstrual Period: 11/13/11 - Smoking Cessation Smoking history: Former smoker Have you smoked in the past 12 months: Yes Aproximately how many cigarettes per day: 1 Hx Chewing Tobacco Use: No Initiated information on smoking cessation: No Admission Physical Exam [facility] - Vital Signs Vital Signs: 131/83, 79, 12, 97.2 UDS: DYANA, MDMA - Physical General Appearance: Yes: Nourished, Thin, Anxious HEENTM: Yes: EOMI, Hearing grossly Normal, Normocephalic, Normal Voice Respiratory: Yes: Lungs Clear, No Respiratory Distress, No Accessory Muscle Use Neck: Yes: Supple, Thyroid enlarged Breast: Yes: Breast Exam Deferred Cardiology: Yes: Regular Rhythm, Regular Rate Abdominal: Yes: Normal Bowel Sounds, Non Tender, Flat, Soft Back: Yes: Normal Inspection Musculoskeletal: Yes: Gait Steady Extremities: Yes: Normal Inspection, Non-Tender, Other (superficial abrasion right anterior leg and knee) Neurological: Yes: Alert, Normal Response Integumentary: Yes: Normal Color, Dry, Warm - Diagnostic (1) Alcohol abuse with withdrawal, uncomplicated Current Visit: Yes Status: Acute (2) Cirrhosis Current Visit: Yes Status: Chronic Qualifiers: Hepatic cirrhosis type: alcoholic 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
[2020-01-25] MEDS ORDERED: METHOCARBAMOL 500 MG TABLET PO PRN (14:02)
[2020-01-25] MEDS ORDERED: IBUPROFEN 400 MG TABLET (FP) PO PRN (14:02)
[2020-01-25] MEDS ORDERED: ACETAMINOPHEN 325 MG TABLET (FP) PO PRN ×2 (14:02)
[2020-01-25] MEDS ORDERED: MENTHOL/PHENOL 1 EACH UD MM PRN (14:02)
[2020-01-25] MEDS ORDERED: MAGNESIUM CITRATE 300 ML BOTTLE PO PRN (14:02)
[2020-01-25] MEDS ORDERED: MAG HYDROX/AL HYDROX/SIMETH 30 ML UNIT-DOSE CUP PO PRN (14:02)
[2020-01-25] MEDS ORDERED: MAGNESIUM HYDROX 2400MG/30ML ORAL SUSPENSION 30 ML CUP PO PRN (14:02)
[2020-01-25] MEDS ORDERED: ONDANSETRON *ODT* 4 MG TABLET SL PRN (14:02)
[2020-01-25] MEDS ORDERED: BISMUTH SUBSALICYLATE 262 MG/15 ML BTL PO PRN (14:02)
[2020-01-25] MEDS ORDERED: LORazepam 1 MG TABLET PO PRN (14:02)
--- OUTSIDE RECORDS SUMMARY | 2020-01-25 15:14 | XMS ---
:1960 Author Organization [facility] Care Team Providers Name Role Phone Abe Barrett DO Unavailable Unavailable Tomasz, Neelkamal Unavailable Unavailable Jose F Arroyo MD Unavailable Unavailable LEONEL ALEMAN PMHNP Unavailable Unavailable MD Jimenez Unavailable Unavailable ALEK GIMENEZ Unavailable Unavailable [id number] Unavailable Unavailable MD Victor Hugo Unavailable Unavailable Jesus Jacob MD Unavailable Jesus Jacob MD Unavailable Jesus Jacob MD Unavailable MD Jesus Unavailable Unavailable MD Anni Unavailable Unavailable HHCCC Unavailable Unavailable MD Ana Unavailable Unavailable MD Bruce Unavailable Unavailable MD Robyn Unavailable Unavailable DO Cherry Unavailable Unavailable Mickey RICH Unavailable Unavailable MD Saleem Unavailable Unavailable ZUNASSIGNED Unavailable Unavailable EATON Unavailable Unavailable PAMM Unavailable Unavailable MD Mitch Unavailable Unavailable MD Nataly Unavailable Unavailable MD Stacey Unavailable Unavailable MD Efrain Unavailable Unavailable MD ERROL Unavailable Unavailable Юлия AGUILAR Unavailable Unavailable MD Frederick Unavailable Unavailable Lynn DO Unavailable Unavailable MD KATHY Unavailable Unavailable MD DISHA Unavailable Unavailable DO Alyssia Unavailable Unavailable Antonino Moura MD Unavailable Unavailable Mickey MONTES Unavailable Unavailable Calderon DO Unavailable Unavailable MD Victoriano Unavailable Unavailable MD YOCASTA Unavailable Unavailable Leah Mckeon MD Unavailable Unavailable MD Rich Unavailable Unavailable MD Esha Unavailable Unavailable Vivian DO Unavailable Unavailable CAROL BEBE MORENO Unavailable Unavailable MD FLEX Unavailable Unavailable Luis, C Unavailable Unavailable Luis, C Unavailable Unavailable [place], C Unavailable Unavailable [place], C Unavailable Unavailable MD Chace Unavailable Unavailable [...] is protected by Article 27-F of the [facility] Public Health law. If you continue you may haveaccess to information: Regarding HIV / AIDS; Provided by facilities licensed or operated by the [facility] Office of Mental Health; or Provided by the [facility] Office for People With Developmental Disabilities. If such information is present, then the following [facility] mandated warning applies: This information has [...] law may result in a fine or [place] health care facility sentence or both. A general authorization for the release of medical or other information is NOT sufficient authorization for further disclosure. Allergies and Adverse Reactions Type Description Substance Reaction Status Data Source(s ) Drug allergy No Known Allergies No Known NO KNOWN ALLERG Michael Lewis Allergies ID Hospital Encounters Encounter Providers Location Date Indications Data Source(s ) Outpatient Attender: 01/20/2020 [facility] ZUNASSIGNEDAdmitter: 02:47:00 PM [facility] ZUNASSIGNEDReferrer: EDT [id number] ZUNASSIGNED Outpatient Admitter: [id number] 01/20/2020 [facility] ZUNASSIGNEDReferrer: 12:00:00 AM [facility] [id number] ZUNASSIGNED EDT Inpatient Attender: Annalee 01/18/2020 DKA Michael Mas MDAttender: 10:14:00 AM Hospit al Anat Mckeon EDT - MDAttender: Tay 01/21/2020 Light MDAdmitter: 04:18:00 PM Anat Mckeon EDT MD SMITH Patient discharged. Outpatient Attender: CNR9 HHCCC 01/17/2020 04:08:20 PM I ([facility] EDT Collaborative) Patient admitted. Outpatient Attender: LEONEL NDIAYE [facility]/17[facility]2020 [facility] Hospital Admission cancelled. Disregard status an d admitted date. 01/12/2020 02:44:[address] [facility] Patient admitted. Emergency Attender: Wu 01/10/2020 [...] Outpatient Attender: BEBE NDIAYE 12/24/2019 10:40[facility] - 01[facility]14[facility]2020 [facility] CANTIFFANIEA 03:29:00 PM EDT Patient discharged. Outpatient Attender: BEBE Parker 12/24/2019 07:01:00 AM [facility] MORENOAdmitter: EDT [facility] BEBE MORENOReferrer: BEBE MORENO Outpatient Attender: ALYSE NDIAYE 12/21/2019 12:17:00 PM [facility] Ham CANEVAAdmitter: CAMILA EDT - 12/21/2019 [facility] 05:58:00 PM EDT Patient discharged. Emergency Attender: Sharonda Mack 12/21/2019 05:35:00 CAN T WALK [place] MDAttender: Juve Cade AM EDT - 12/21/2019 [facility] DOConsultant: Corrine 11:40:00 AM EDT Rich GARCIA CANT WALK WALK Patient discharged. Inpatient Attender: Tanika Jacob 12/15/2019 05:42:00 PM DKA [place] MDAttender: Elyssa Ibarra EDT - 12/20/2019 [facility] MDAttender: Дмитрий 12:05:00 PM EDT Tiamimelanieu PAAttender: Juve Cade DOAdmitter: Дмитрий Russ PAConsultant: Corrine Villanueva MD DKA Patient discharged. Inpatient Attender: Amy 11/30/2019 HEPATIC [place] 01:40:00 PM EDT - ENCEPHALOPATHY Hos pital MDAttender: 12/03/2019 Sharonda Mack 02:15:00 PM EDT MDAdmitter: Amy Perez MD HEPATIC ENCEPHALOPATHY Patient discharged. Inpatient Attender: Param 11/20/2019 09:17:00 DKA [place] RandhawaAttender: Elyssa Ibarra PM EDT - 11/29/2019 [facility] MDAttender: Kamlesh Yanez 10:47:00 AM EDT MDAttender: Jan Balbuena MDAttender: Abe Barrett DOAdmitter: Jan Balbuena MDConsultant: Corrine Villanueva MD DKA Patient discharged. Outpatient Attender: CNR9 [facility] 11/13/2019 11:35:57 AM [facility] ([facility] EDT Collaborative) Patient admitted. Outpatient Attender: [id number] 11/02/2019 [facility] JEFF, 09:23:00 AM EDT [facility] RAdmitter: [id number] [facility] Юлия AGUILAR Emergency Attender: Wilfrido Zuniga 10/26/2019 [facility] W mera Lewis MD 02:23:00 AM EDT [facility] 10/26/2019 01:07:00 PM EDT HEADACHE EMPRESS Patient discharged. Outpatient Attender: CNR9 [facility] 10/12/2019 01:04:05 PM [facility] ([facility] EDT [facility]) Patient admitted. Outpatient Attender: CNR9 [facility] 07/02/2019 06:26:05 [facility] Patient admitted. Inpatient Attender: CIGI 06/17/2019 06:18:00 HYPERGLYCEMI A [place] MATHEWAttender: Asif EST - 06/21/2019 [facility] Jesus MDAttender: 01:34:00 PM EDT Jose F Arroyo MDAdmitter: Asif Lee MD HYPERGLYCEMIA Patient discharged. Outpatient ST 06/01/2019 04:09:00 PM EST - [address] [place] [address] 03:46:00 PM EST Patient discharged. Attender: 05/28/2019 [place] [id number] 04:09:00 PM [facility]_6766 Inpatient Attender: Chloe Gaona 05/25/2019 [facility] MDAttender: Nura Pastrana 06:14:00 PM EST - Hospital MDAttender: Renae Carey 05/28/2019 DOAdmitter: Nura Pastrana 12:48:00 PM EST MDConsultant: Corrine Villanueva MD AMS Patient discharged. Inpatient Attender: ESTRELLITA DICKERSONV-3N 05/21/2019 09:17:00 PM [facility] FAEZAdmitter: ROBBI [facility] 05/25/2019 [facility] 11:49:00 PM EST Patient discharged. Attender: 05/21/2019 [facility] [id number] 09:17:00 PM [facility]_[address] 05/21/2019 [facility] 06:32:00 PM EST - Hospita l 05/21/2019 09:23:00 PM EST Patient discharged. Attender: 05/21/2019 [place] [id number] 06:32:[address] Inpatient Attender: Bhargavi Barrera 05/19/2019 [facility] MDAttender: [place] 02:27:00 PM EST Hospital DOAdmitter: Asif Lee - 05/21/2019 MDConsultant: Corrine Villanueva MD 06:06:00 PM EST [place]OPE Patient discharged. Inpatient Attender: ESTRELLITA NDIAYE-3N 05/18/2019 01:07:00 PM [facility] FAEZAdmitter: Lisa [facility] - 05/19/2019 Hospital [place] 11:12:00 PM EST Patient discharged. Attender: 05/18/2019 [place] [id number] 01:07:00 PM [facility] Outpatient [facility] 05/18/2019 [facility] 12:56:00 PM EST - Hospita l 05/18/2019 04:24:00 PM EST Patient discharged. Attender: 05/18/2019 [place] [id number] 12:56:[address] Emergency Attender: Jose F Arroyo MDAttender: 05/17/2019 [facility] [place] MDAttender: Aydin 07:04:00 PM [facility] Hospital Codd[place] MDConsultant: Jose F Arroyo - 0 AM.EMPR MDConsultant: Corrine Villanueva MD 12:57:00 PM EST SI AM.EMPR Patient discharged. Outpatient Attender: LILIA [facility] 05/17/2019 04:49:00 S judie Cheek WASSERMANAdmitter: ABBE PM EST - 05/18/2019 Hospital [place] 02:29:00 PM EST Patient discharged. Attender: 05/17/2019 [place] [id number] 04:49:00 PM [facility] Outpatient Attender: GIL ST 05/10/2019 Santino JOSHUAdmitter: ALETHA MAST 02:07:00 PM EST - Hospital 05/10/2019 07:38:00 PM EST Patient discharged. Attender: 05/10/2019 [facility] [id number] 02:07:[address] Emergency Attender: Black Bailey DO 04/29/2019 LOW B LOOD Michael Lewis 11:42:00 AM EST [facility] Hospital - 04/29/2019 AUTO 04:20:00 PM EST LOW BLOOD SUGAR AUTO Patient discharged. Outpatient Attender: JAKE [facility] 04/23/2019 03:05:35 PM [facility] ([facility]) Patient admitted. Emergency Attender: Francy Ingram 04/16/2019 10:32:00 HAROON Lewis MD AM EST - 04/16/2019 [facility] 02:20:00 PM EST [place] [facility] Patient discharged. Emergency Attender: 04/06/2019 HX OF DIABETES/WEAKNESS Mariam Mack MD 09:27:00 PM EST - (AUTO) H ospital 04/07/2019 02:43:00 AM EST HX OF DIABETES/WEAKNESS (AUTO) Patient discharged. Emergency Attender: Nika 03/09/2019 03:30:00 ABNORMAL LAB S Michael Oviedo PM EST - 03/09/2019 ([place]) [facility] 09:45:00 PM EST ABNORMAL LABS ([place]) Patient discharged. Inpatient Attender: ISAAK NDIAYE-2S 03/03/2019 07:17:00 PM [facility] SOTOAdmitter: ALYSE EST - 03/08/2019 [facility] 11:13:00 PM EST Patient discharged. Attender: 03/03/2019 [facility] Ham [id number] 07:17:00 PM [facility]_6766 Outpatient STV 03/03/2019 [facility] 07:02:00 PM EST - Hospita 03/03/2019 12:59:00 PM EST Patient discharged. Attender: 03/03/2019 [facility] [id number] 07:02:00 PM [place] [id number] Inpatient Attender: Chloe Gaona 03/01/2019 AMS [place] MDAttender: Mary Lara MDAttender: 07:07:00 PM [facility] Gunnar Carlson MDAdmitter: Mary Lara 03/03/2019 MDConsultant: Corrine Villanueva MD 06:40:00 PM EST [facility] Patient discharged. Inpatient Attender: ISAAK [facility]-2S 02/15/2019 07:13:00 PM [facility] SOTOAdmitter: HOLLY MALONEYB [facility] 03/01/2019 [facility] 08:31:00 AM EST Patient discharged. Attender: 02/15/2019 [facility] [id number] 07:13:00 PM [place] [address] Outpatient [facility] 02/15/2019 [facility] 06:56:00 [facility]15[facility] 09:26:00 PM EST Patient discharged. Attender: 02/15/2019 [facility] [id number] 06:56:[address] Emergency Attender: Mariano Monge 02/14/2019 DIABETIC/ [place] MDAttender: Sharonda Mack 10:27:00 AM EST [facility] Hospital MDAttender: Jose F Royal 02/15/2019 MEDS - W I MDConsultant: Corrine Villanueva MD 05:03:00 PM EST DIABETIC/[place]S MEDS - [place] Patient discharged. Outpatient 01/18/2019 12:27:21 PM EDT [facility] ([facility]) Patient admitted. Emergency Attender: Black 08/22/2018 DIABETES Michael Bailey 05:08:00 PM EDT - (AM.EMPRESS) Hospi klaus DOAttender: Nehemias 08/22/2018 [place] CHRISITE 09:16:00 PM EDT DIABETES (AM.EMPRESS) P 10/08/2017 02:42:00 PM EDT FALL/LEG PAIN ARR- [facility] FALL/LEG PAIN ARR- P 04/25/2009 01:14:00 PM EST RT SIDE C OTTON STUCK IN EAR [facility] ARR-WALK RT SIDE [place] STUCK IN EAR ARR-W ALK Functional Status Medications Medication Brand Start Product Dose Route Administrative Pharmacy St atus Indications Reaction Description Data Name Date Form Instructions Instructions Source(s) Lactulose Lactul 01/20/ SOLUTION 10 g ORAL active White 667 MG/ML ose 2019 [facility] Oral 01:56: Hospital Solution 00 PM EDT 3 ML Insuli 01/20/ INJECTIO 9 SUBCUT active Whi te Insulin n 2020 N ANEOUS [place] Lispro 100 Human 01:56: Hospit al UNT/ML Pen Lispro 00 PM Injector EDT [Humalog] Insulin Human Lispro 3 ML Insuli 01/20/ PRE-FILL 25 SUBCUT active Whi te Insulin n 2019 ED PEN ANEOUS [place] Glargine Glargi 01:56: SYRINGE Hosp ital 100 [...] 00 AM ORAL EDT Tablet aripiprazol ARIPip ORAL complet ARIPip razole [facility] [...] Whi te Insulin n 2020 N ANEOUS [place] Lispro 100 Human 09:46: Hospit al UNT/ML Pen Lispro 00 AM Injector EDT [Humalog] Insulin Human Lispro 3 ML Insuli 12/19/ PRE-FILL 25 SUBCUT active Whi te Insulin n 2020 ED PEN ANEOUS [place] Glargine Glargi 09:46: SYRINGE Hosp ital 100 UNT/ML ne 00 AM Pen EDT Injector [Lantus] 3 ML Insuli 12/19/ INJECTIO 9 SUBCUT complet Wh ite Insulin n 2020 N ANEOUS ed [place] Lispro 100 Human 09:46: Hospit al UNT/ML Pen Lispro 00 AM Injector EDT [Humalog] Insulin Human Lispro 3 ML Insuli 12/19/ PRE-FILL 25 SUBCUT active Whi te Insulin n 2020 ED PEN ANEOUS [place] Glargine Glargi 09:46: SYRINGE Hosp ital 100 UNT/ML ne 00 AM Pen EDT Injector [Lantus] 3 ML Insuli 12/19/ PRE-FILL 25 SUBCUT complet Wh ite Insulin n 2020 ED PEN ANEOUS ed [place] Glargine Glargi 09:46: SYRINGE Hosp ital 100 UNT/ML ne 00 AM Pen EDT Injector [Lantus] 3 ML Insuli 12/19/ INJECTIO 9 SUBCUT active Whi te Insulin n 2020 N ANEOUS [place] Lispro 100 Human 09:46: Hospit al UNT/ML Pen Lispro 00 AM Injector EDT [Humalog] Insulin Human Lispro 3 ML Insuli 12/19/ PRE-FILL 25 SUBCUT active Whi te Insulin n 2020 ED PEN ANEOUS [place] Glargine Glargi 09:46: SYRINGE Hosp ital 100 UNT/ML ne 00 AM Pen EDT Injector [Lantus] 3 ML Insuli 12/19/ PRE-FILL 25 SUBCUT active Whi te Insulin n 2020 ED PEN ANEOUS [place] Glargine Glargi 09:46: SYRINGE Hosp ital 100 UNT/ML ne 00 AM Pen EDT Injector [Lantus] 3 ML Insuli 12/19/ INJECTIO 9 SUBCUT active Whi te Insulin n 2020 N ANEOUS [place] Lispro 100 Human 09:46: Hospit al UNT/ML Pen Lispro 00 AM Injector EDT [Humalog] Insulin Human Lispro 3 ML Insuli 12/19/ INJECTIO 9 SUBCUT active Whi te Insulin n 2020 N ANEOUS [place] Lispro 100 Human 09:46: Hospit al UNT/ML Pen Lispro 00 AM Injector EDT [Humalog] Insulin Human Lispro 3 ML Insuli 12/19/ PRE-FILL 25 SUBCUT active Whi te Insulin n 2020 ED PEN ANEOUS [place] Glargine Glargi 09:46: SYRINGE Hosp ital 100 UNT/ML ne 00 AM Pen EDT Injector [Lantus] 3 ML Insuli 12/19/ INJECTIO 9 SUBCUT active Whi te Insulin n 2020 N ANEOUS [place] Lispro 100 Human 09:46: Hospit al UNT/ML Pen Lispro 00 AM Injector EDT [Humalog] Insulin Human Lispro 3 ML Insuli 12/19/ PRE-FILL 25 SUBCUT complet Wh ite Insulin n 2020 ED PEN ANEOUS ed [place] Glargine Glargi 09:39: SYRINGE Hosp ital 100 UNT/ML ne 00 AM Pen EDT Injector [Lantus] 3 ML Insuli 12/19/ PRE-FILL 25 SUBCUT complet Wh ite Insulin n 2020 ED PEN ANEOUS ed [place] Glargine Glargi 09:39: SYRINGE Hosp ital 100 UNT/ML ne 00 AM Pen EDT Injector [Lantus] 3 ML Insuli 12/19/ INJECTIO 9 SUBCUT complet Wh ite Insulin n 2020 N ANEOUS ed [place] Lispro 100 Human 09:39: Hospit al UNT/ML Pen Lispro 00 AM Injector EDT [Humalog] Insulin Human Lispro 3 ML Insuli 12/19/ INJECTIO 9 SUBCUT complet Wh ite Insulin n 2020 N ANEOUS ed [place] Lispro 100 Human 09:39: Hospit al UNT/ML Pen Lispro 00 AM Injector EDT [Humalog] Insulin Human Lispro 3 ML Insuli 12/19/ INJECTIO 9 SUBCUT complet Wh ite Insulin n 2020 N ANEOUS ed [place] Lispro 100 Human 09:39: Hospit al UNT/ML Pen Lispro 00 AM Injector EDT [Humalog] Insulin Human Lispro 3 ML Insuli 12/19/ PRE-FILL 25 SUBCUT complet Wh ite Insulin n 2020 ED PEN ANEOUS ed [place] Glargine Glargi 09:39: SYRINGE Hosp ital 100 UNT/ML ne 00 AM Pen EDT Injector [Lantus] 3 ML Insuli 12/19/ PRE-FILL 25 SUBCUT complet Wh ite Insulin n 2020 ED PEN ANEOUS ed [place] Glargine Glargi 09:39: SYRINGE Hosp ital 100 UNT/ML ne 00 AM Pen EDT Injector [Lantus] 3 ML Insuli 12/19/ INJECTIO 9 SUBCUT complet Wh ite Insulin n 2020 N ANEOUS ed [place] Lispro 100 Human 09:39: Hospit al UNT/ML Pen Lispro 00 AM Injector EDT [Humalog] Insulin Human Lispro 3 ML Insuli 12/19/ PRE-FILL 25 SUBCUT complet Wh ite Insulin n 2020 ED PEN ANEOUS ed [place] Glargine Glargi 09:39: SYRINGE Hosp ital 100 UNT/ML ne 00 AM Pen EDT Injector [Lantus] 3 ML Insuli 12/19/ INJECTIO 9 SUBCUT complet Wh ite Insulin n 2020 N ANEOUS ed [place] Lispro 100 Human 09:39: Hospit al UNT/ML Pen Lispro 00 AM Injector EDT [Humalog] Insulin Human Lispro 3 ML Insuli 12/19/ PRE-FILL 25 SUBCUT complet Wh ite Insulin n 2020 ED PEN ANEOUS ed [place] Glargine Glargi 09:39: SYRINGE Hosp ital 100 UNT/ML ne 00 AM Pen EDT Injector [Lantus] 3 ML Insuli 12/19/ INJECTIO 9 SUBCUT complet Wh ite Insulin n 2020 N ANEOUS ed [place] Lispro 100 Human 09:39: Hospit al UNT/ML Pen Lispro 00 AM Injector EDT [Humalog] Insulin Human Lispro Sertraline Sertra 0817/ TABLET 2 ORAL complet White 50 MG Oral line 2019 {Caps ed [facility] Tablet Hcl 10:26: ule} Hospital [Zoloft] 00 AM Sertraline EDT Hcl Sertraline Sertra 0817/ TABLET 2 ORAL complet White 50 MG Oral line 2019 {Caps ed [place] Tablet Hcl 10:26: ule} Hospital [Zoloft] 00 AM Sertraline EDT Hcl Sertraline Sertra 17/ TABLET 2 ORAL complet White 50 MG Oral line 2019 {Caps ed [place] Tablet Hcl 10:26: ule} Hospital [Zoloft] 00 AM Sertraline EDT Hcl Sertraline Sertra 11/28/ TABLET 2 ORAL active W mera 50 MG Oral line 2020 {Caps [place] Tablet Hcl 10:26: ule} Hospital [Zoloft] 00 AM Sertraline EDT Hcl Sertraline Sertra 08/17/ TABLET 2 ORAL complet White 50 MG Oral line 2019 {Caps ed [place] Tablet Hcl 10:26: ule} Hospital [Zoloft] 00 AM Sertraline EDT Hcl Sertraline Sertra 08/17/ TABLET 2 ORAL complet White 50 MG Oral line 2019 {Caps ed [place] Tablet Hcl 10:26: ule} Hospital [Zoloft] 00 AM Sertraline EDT Hcl Sertraline Sertra 08/17/ TABLET 2 ORAL complet [place] 50 MG Oral line 2019 {Caps ed [place] Tablet Hcl 10:26: ule} Hospital [Zoloft] 00 AM Sertraline EDT Hcl Sertraline Sertra 08/17/ TABLET 2 ORAL complet White 50 MG Oral line 2019 {Caps ed [place] Tablet Hcl 10:26: ule} Hospital [Zoloft] 00 AM Sertraline EDT Hcl Omeprazole Omepra 08/14/ TABLET, 20 mg ORAL active [place] 20 MG zole 2019 DELAYED [place] Delayed 03:23: RELEASE Hospita l Release 00 PM Oral Tablet EDT Omeprazole Omepra 08/14/ TABLET, 20 mg ORAL active [place] 20 MG zole 2019 DELAYED [place] Delayed 03:23: RELEASE Hospita l Release 00 PM Oral Tablet EDT Omeprazole Omepra 08/14/ TABLET, 20 mg ORAL active [place] 20 MG zole 2020 DELAYED [place] Delayed 03:23: RELEASE Hospita l Release 00 PM Oral Tablet EDT Omeprazole Omepra 08/14/ TABLET, 20 mg ORAL active [place] 20 MG zole 2020 DELAYED [place] Delayed 03:23: RELEASE Hospita l Release 00 PM Oral Tablet EDT Omeprazole Omepra 08/14/ TABLET, 20 mg ORAL active [place] 20 MG zole 2020 DELAYED [facility] Delayed 03:23: RELEASE Hospita l Release 00 PM Oral Tablet EDT Omeprazole Omepra 08/14/ TABLET, 20 mg ORAL active [place] 20 MG zole 2020 DELAYED [place] Delayed 03:23: RELEASE Hospita l Release 00 PM Oral Tablet EDT Omeprazole Omepra 08/14/ TABLET, 20 mg ORAL active [place] 20 MG zole 2019 DELAYED [place] Delayed 03:23: RELEASE Hospita l Release 00 PM Oral Tablet EDT Omeprazole Omepra 08/14/ TABLET, 20 mg ORAL active [place] 20 MG zole 2019 DELAYED [facility] Delayed 03:23: RELEASE Hospita l Release 00 PM Oral Tablet EDT Sertraline Sertra 11/25/ TABLET 1 ORAL active W mera 100 MG Oral line 2020 {Caps [place] Tablet Hcl 02:36: ule} Hospital [Zoloft] 00 PM Sertraline EDT Hcl Insulin Insuli 11/25/ UNSPECIF 16 SUBCUT active [place] Glargine n 2020 IED ANEOUS [facility] 100 UNT/ML Glargi 02:36: Hospi [facility] Injectable ne 00 PM Solution EDT [Lantus] Sertraline Sertra 11/25/ TABLET 1 ORAL active W mera 100 MG Oral line 2019 {Caps [place] Tablet Hcl 02:36: ule} Hospital [Zoloft] 00 PM Sertraline EDT Hcl Insulin Insuli 11/25/ UNSPECIF 16 SUBCUT complet [place] Glargine n 2019 IED ANEOUS ed [facility] 100 UNT/ML Glargi 02:36: Hospi [facility]aus Injectable ne 00 PM Solution EDT [Lantus] Risperidone Risper 11/25/ TABLET 0.25 ORAL active [place] 0.5 MG Oral idone 2020 mg [facility] Tablet 02:36: Hospital 00 PM EDT Sertraline Sertra 11/25/ TABLET 1 ORAL active W mera 100 MG Oral line 2019 {Caps [place] Tablet Hcl 02:36: ule} [facility] [Zoloft] 00 PM Sertraline EDT Hcl Insulin Insuli 11/25/ UNSPECIF 16 SUBCUT active White Glargine n 2019 IED ANEOUS [place] 100 UNT/ML Glargi 02:36: Hospi [facility] Injectable ne 00 PM Solution EDT [Lantus] Insulin Insuli 11/25/ UNSPECIF 16 SUBCUT complet [place] Glargine n 2019 IED ANEOUS ed [facility] 100 UNT/ML Glargi 02:36: Hospi [facility] Injectable ne 00 PM Solution EDT [Lantus] Insulin Insuli 11/25/ UNSPECIF 16 SUBCUT complet [place] Glargine n 2019 IED ANEOUS ed [place] 100 UNT/ML Glargi 02:36: Hospi kl[facility] Injectable ne 00 PM Solution EDT [Lantus] Insulin Insuli 11/25/ UNSPECIF 7 SUBCUT active [place] Lispro 100 n 2019 IED ANEOUS [place] UNT/ML Human 02:36: Hospital Injectable Lispro 00 PM Solution EDT [Humalog] Insulin Human Lispro Sertraline Sertra 08/14/ TABLET 1 ORAL active W mera 100 MG Oral line 2019 {Caps [place] Tablet Hcl 02:36: ule} Hospital [Zoloft] 00 PM Sertraline EDT Hcl Insulin Insuli 11/25/ UNSPECIF 16 SUBCUT complet [place] Glargine n 2019 IED ANEOUS ed [facility] 100 UNT/ML Glargi 02:36: Hospi klaus Injectable ne 00 PM Solution EDT [Lantus] Risperidone Risper 0814/ TABLET 0.25 ORAL active White 0.5 MG Oral idone 2020 mg [facility] Tablet 02:36: Hospital 00 PM EDT Sertraline Sertra 0814/ TABLET 1 ORAL active W mera 100 MG Oral line 2020 {Caps [place] Tablet Hcl 02:36: ule} [facility] S[facility]ine EDT Hcl Insulin Insuli 11/25/ UNSPECIF 7 SUBCUT complet [place] Lispro 100 n 2019 IED ANEOUS ed [place] UNT/ML Human 02:36: Hospital Injectable Lispro 00 PM Solution EDT [Humalog] Insulin Human Lispro Insulin Insuli 11/25/ UNSPECIF 7 SUBCUT active [place] Lispro 100 n 2019 IED ANEOUS [place] UNT/ML Human 02:36: Hospital Injectable Lispro 00 PM Solution EDT [Humalog] Insulin Human Lispro Risperidone Risper 08/14/ TABLET 0.25 ORAL active White 0.5 MG Oral idone 2020 mg [facility] Tablet 02:36: Hospital 00 PM EDT Sertraline Sertra 0814/ TABLET 1 ORAL active W mera 100 MG Oral line 2019 {Caps [place] Tablet Hcl 02:36: ule} Hospital [Zoloft] 00 PM Sertraline EDT Hcl Risperidone Risper 08/14/ TABLET 0.25 ORAL active White 0.5 MG Oral idone 2020 mg [facility] Tablet 02:36: Hospital 00 PM EDT Risperidone Risper 08/14/ TABLET 0.25 ORAL active White 0.5 MG Oral idone 2020 mg [place] Tablet 02:36: Hospital 00 PM EDT Risperidone Risper 08/14/ TABLET 0.25 ORAL active White 0.5 MG Oral idone 2020 mg [place] Tablet 02:36: Hospital 00 PM EDT Sertraline Sertra 11/25/ TABLET 1 ORAL active W mera 100 MG Oral line 2019 {Caps [place] Tablet Hcl 02:36: ule} Hospital [Zoloft] 00 PM Sertraline EDT Hcl Risperidone Risper 11/25/ TABLET 0.25 ORAL active White 0.5 MG Oral idone 2020 mg [facility] Tablet 02:36: Hospital 00 PM EDT Insulin Insuli 11/25/ UNSPECIF 7 SUBCUT complet [place] Lispro 100 n 2019 IED ANEOUS ed [place] UNT/ML Human 02:36: Hospital Injectable Lispro 00 PM Solution EDT [Humalog] Insulin Human Lispro Risperidone Risper 11/25/ TABLET 0.25 ORAL active White 0.5 MG Oral idone 2020 mg [facility] Tablet 02:36: [facility] 00 PM EDT Insulin Insuli 11/25/ UNSPECIF 16 SUBCUT complet [facility] Glargine n 2019 IED ANEOUS ed [facility] 100 UNT/ML Gl[facility]i 02:36: [facility] Injectable ne 00 PM Solution EDT [Lantus] Insulin Insuli 11/25/ UNSPECIF 7 SUBCUT complet [facility] Lispro 100 n 2019 IED ANEOUS ed [facility] UNT/ML Human 02:36: Hospital Injectable Lispro 00 PM Solution EDT [Humalog] Insulin Human Lispro Insulin Insuli 11/25/ UNSPECIF 7 SUBCUT complet [facility] Lispro 100 n 2019 IED ANEOUS ed [facility] UNT/ML Human 02:36: Hospital Injectable Lispro 00 PM Solution EDT [Humalog] Insulin Human Lispro Insulin Insuli 11/25/ UNSPECIF 7 SUBCUT complet [facility] Lispro 100 n 2019 IED ANEOUS ed [facility] UNT/ML Human 02:36: Hospital Injectable Lispro 00 PM Solution EDT [Humalog] Insulin Human Lispro Sertraline Sertra 11/25/ TABLET 1 ORAL active W mera 100 MG Oral line 2019 {Caps [facility] Tablet Hcl 02:36: ule} Hospital [Zoloft] 00 PM Sertraline EDT Hcl Insulin Insuli 11/25/ UNSPECIF 7 SUBCUT complet [facility] Lispro 100 n 2019 IED ANEOUS ed [facility] UNT/ML Human 02:36: Hospital Injectable Lispro 00 PM Solution EDT [Humalog] Insulin Human Lispro Insulin Insuli 11/25/ UNSPECIF 16 SUBCUT complet [facility] Glargine n 2019 IED ANEOUS ed [facility] 100 UNT/ML Gl[facility]i 02:36: [facility] Injectable ne 00 PM Solution EDT [Lantus] Amoxicillin Amoxic 07/14/ TABLET 1 ORAL complet White 875 MG / ill2019 {Caps ed [facility] Clavulanate Clavun 06:12: ule} Hosp ital 125 MG Oral ate 00 AM Tablet EDT [Augmentin] 5 Amoxicillin Tablet /Clavunate * 875-125 Tablet* Amoxicillin Amoxic 07/14/ TABLET 1 ORAL complet White 875 MG / ill2019 {Caps ed [facility] Clavulanate Clavun 06:12: ule} [facility] 125 MG Oral ate 00 AM Tablet EDT [Augmentin] 5 Amoxicillin Tablet /Clavunate * 875-125 Tablet* Amoxicillin Amoxic 07/14/ TABLET 1 ORAL complet White 875 MG / 2019 {Caps ed [facility] Clavulanate Clavun 06:12: ule} [facility]osp [facility] 125 MG Oral ate 00 AM Tablet EDT [Augmentin] 5 Amoxicillin Tablet /Clavunate * 875-125 Tablet* Amoxicillin Amoxic 07/14/ TABLET 1 ORAL complet White 875 MG / ill2019 {Caps ed [facility] Clavulanate Clavun 06:12: ule} [facility]osp [facility] 125 MG Oral ate 00 AM Tablet EDT [Augmentin] 5 Amoxicillin Tablet /Clavunate * 875-125 Tablet* Amoxicillin Amoxic 07/14/ TABLET 1 ORAL complet [facility] 875 MG / ill2019 {Caps ed [facility] Clavulanate Clavun 06:12: ule} [facility] 125 MG Oral ate 00 AM Tablet EDT [Augmentin] 5 Amoxicillin Tablet /Clavunate * 875-125 Tablet* Amoxicillin Amoxic 07/14/ TABLET 1 ORAL complet [facility] 875 MG / ill2019 {Caps ed [facility] Clavulanate Clavun 06:12: ule} [facility] 125 MG Oral ate 00 AM Tablet 12 EDT [Augmentin] 5 Amoxicillin Tablet /Clavunate * 875-125 Tablet* Amoxicillin Amoxic 07/14/ TABLET 1 ORAL complet [facility] 875 MG / ill2019 {Caps ed [facility] Clavulanate Clavun 06:12: ule} [facility] 125 MG Oral ate 00 AM Tablet 12 EDT [Augmentin] 5 Amoxicillin Tablet /Clavunate * 875-125 Tablet* Amoxicillin Amoxic 07/14/ TABLET 1 ORAL complet [facility] 875 MG / illin/ 2019 {Caps ed [facility] Clavulanate Clavun 06:12: ule} [facility] 125 MG Oral ate 00 AM Tablet 512 EDT [Augmentin] 5 Amoxicillin Tablet /Clavunate * 875-125 Tablet* Amoxicillin Amoxic 07/14/ TABLET 1 ORAL active [facility] 875 MG / illin/ 2019 {Caps [facility] Clavulanate Clavun 06:12: ule} [facility] 125 MG Oral ate 00 AM Tablet EDT [Augmentin] 5 Amoxicillin Tablet /Clavunate * 875-125 Tablet* Mirtazapine Mirtaz 05/27/ TABLET 15 mg ORAL complet [facility] 15 MG Oral apine 2019 ed [facility] Tablet 02:47: [facility] [Remeron] 00 PM EST aripiprazol Aripip 05/27/ TABLET 10 mg ORAL complet White e 10 MG razole 2019 ed [facility] Oral Tablet 02:47: Hospit al [Abilify] 00 PM Aripiprazol EST e aripiprazol Aripip 05/27/ TABLET 10 mg ORAL complet White e 10 MG razole 2019 ed [facility] Oral Tablet 02:47: Hospit al [Abilify] 00 PM Aripiprazol EST e Sertraline Sertra 05/27/ TABLET 1 ORAL active W mera 50 MG Oral line 2019 {Caps [facility] Tablet Hcl 02:47: ule} Hospital [Zoloft] 00 PM Sertraline EST Hcl Lactulose Lactul 05/27/ SOLUTION 10 g ORAL active White 667 MG/ML ose 2019 [facility] Oral 02:47: [facility] Solution 00 PM EST Lactulose Lactul 05/27/ SOLUTION 10 g ORAL active [facility] 667 MG/ML ose 2020 [facility] Oral 02:47: [facility] Solution 00 PM EST aripiprazol Aripip 05/27/ TABLET 10 mg ORAL complet White e 10 MG razole 2019 ed [facility] Oral Tablet 02:47: Hospit al [Abilify] 00 PM Aripiprazol EST e Sertraline Sertra 05/27/ TABLET 1 ORAL active W mera 50 MG Oral line 2019 {Caps [facility] Tablet Hcl 02:47: ule} Hospital [Zoloft] 00 PM Sertraline EST Hcl Sertraline Sertra 05/27/ TABLET 1 ORAL complet White 50 MG Oral line 2019 {[facility] ed [facility] Tablet Hcl 02:47: ule} Hospital [Zoloft] 00 PM Sertraline EST Hcl Sertraline Sertra 05/27/ TABLET 1 ORAL complet White 50 MG Oral line 2019 {[facility] ed [facility] Tablet Hcl 02:47: ule} Hospital [Zoloft] 00 PM Sertraline EST Hcl Lactulose Lactul 13/ SOLUTION 10 g ORAL active White 667 MG/ML ose 2020 [facility] Oral 02:47: [facility] Solution 00 PM EST Sertraline Sertra 05/27/ TABLET 1 ORAL complet White 50 MG Oral line 2019 {[facility] ed [facility] Tablet Hcl 02:47: ule} Hospital [Zoloft] 00 PM Sertraline EST Hcl Lactulose Lactul 05/27/ SOLUTION 10 g ORAL active White 667 MG/ML ose 2020 [facility] Oral 02:47: [facility] Solution 00 PM EST Mirtazapine Mirtaz 05/27/ TABLET 15 mg ORAL complet [facility] 15 MG Oral apine 2020 ed [facility] Tablet 02:47: [facility] [Remeron] 00 PM EST Mirtazapine Mirtaz /13/ TABLET 15 mg ORAL complet [facility] 15 MG Oral apine 2020 ed [facility] Tablet 02:47: [facility] [Remeron] 00 PM EST Mirtazapine Mirtaz /13/ TABLET 15 mg ORAL complet [facility] 15 MG Oral apine 2020 ed [facility] Tablet 02:47: [facility] [Remeron] 00 PM EST Lactulose Lactul 05/27/ SOLUTION 10 g ORAL complet [facility] 667 MG/ML ose 2020 ed [facility] Oral 02:47: [facility] Solution 00 PM EST Lactulose Lactul /13/ SOLUTION 10 g ORAL active [facility] 667 MG/ML ose 2020 [facility] Oral 02:47: [facility] Solution 00 PM EST Mirtazapine Mirtaz /13/ TABLET 15 mg ORAL complet [facility] 15 MG Oral apine 2020 ed [facility] Tablet 02:47: [facility] [Remeron] 00 PM EST Lactulose Lactul /13/ SOLUTION 10 g ORAL active White 667 MG/ML ose 2020 [facility] Oral 02:47: [facility] Solution 00 PM EST Mirtazapine Mirtaz /13/ TABLET 15 mg ORAL complet [facility] 15 MG Oral apine 2020 ed [facility] Tablet 02:47: [facility] [Remeron] 00 PM EST Mirtazapine Mirtaz 05/27/ TABLET 15 mg ORAL active White 15 MG Oral apine 2020 [facility] Tablet 02:47: [facility] [Remeron] 00 PM EST Mirtazapine Mirtaz 05/27/ TABLET 15 mg ORAL complet [facility] 15 MG Oral apine 2020 ed [facility] Tablet 02:47: [facility] [Remeron] 00 PM EST aripiprazol Aripip 05/27/ TABLET 10 mg ORAL complet White e 10 MG razole 2019 ed [facility] Oral Tablet 02:47: Hospit al [Abilify] 00 PM Aripiprazol EST e aripiprazol Aripip 05/27/ TABLET 10 mg ORAL complet White e 10 MG razole 2019 ed [facility] Oral Tablet 02:47: Hospit al [Abilify] 00 PM Aripiprazol EST e Sertraline Sertra 05/27/ TABLET 1 ORAL complet [facility] 50 MG Oral line 2019 {Caps ed [facility] Tablet Hcl 02:47: ule} Hospital [Zoloft] 00 PM Sertraline EST Hcl Sertraline Sertra 05/27/ TABLET 1 ORAL complet [facility] 50 MG Oral line 2019 {Caps ed [facility] Tablet Hcl 02:47: ule} Hospital [Zoloft] 00 PM Sertraline EST Hcl aripiprazol Aripip 05/27/ TABLET 10 mg ORAL complet White e 10 MG razole 2019 ed [facility] Oral Tablet 02:47: Hospit al [Abilify] 00 PM Aripiprazol EST e Lactulose Lactul 05/27/ SOLUTION 10 g ORAL active [facility] 667 MG/ML ose 2019 [facility] Oral 02:47: [facility] Solution 00 PM EST Sertraline Sertra 05/27/ TABLET 1 ORAL active W mera 50 MG Oral line 2020 {Caps [facility] Tablet Hcl 02:47: ule} Hospital [Zoloft] 00 PM Sertraline EST Hcl Lactulose Lactul 05/27/ SOLUTION 10 g ORAL active White 667 MG/ML ose 2019 [facility] Oral 02:47: [facility] Solution 00 PM EST Mirtazapine Mirtaz 05/27/ TABLET 15 mg ORAL complet [facility] 15 MG Oral apine 2020 ed [facility] Tablet 02:47: [facility] [Remeron] 00 PM EST Lactulose Lactul 05/27/ SOLUTION 10 g ORAL active [facility] 667 MG/ML ose 2020 [facility] Oral 02:47: [facility] Solution 00 PM EST aripiprazol Aripip 05/27/ TABLET 10 mg ORAL active White e 10 MG razole 2019 [facility] Oral Tablet 02:47: Hospit al [Abilify] 00 PM Aripiprazol EST e Sertraline Sertra 05/27/ TABLET 1 ORAL complet [facility] 50 MG Oral line 2019 {Caps ed [facility] Tablet Hcl 02:47: ule} Hospital [Zoloft] 00 PM Sertraline EST Hcl aripiprazol Aripip 05/27/ TABLET 10 mg ORAL complet White e 10 MG razole 2019 ed [facility] Oral Tablet 02:47: Hospit al [Abilify] 00 PM Aripiprazol EST e Mirtazapine Mirtaz 05/27/ TABLET 15 mg ORAL complet [facility] 15 MG Oral apine 2019 ed [facility] Tablet 02:47: [facility] [Remeron] 00 PM EST Sertraline Sertra 05/27/ TABLET 1 ORAL complet [facility] 50 MG Oral line 2019 {[facility] ed [facility] Tablet Hcl 02:47: ule} Hospital [Zoloft] 00 PM Sertraline EST Hcl aripiprazol Aripip 05/27/ TABLET 10 mg ORAL complet [facility] e 10 MG razole 2019 ed [facility] Oral Tablet 02:47: Hospit al [Abilify] 00 PM Aripiprazol EST e aripiprazol Aripip 05/27/ TABLET 10 mg ORAL complet [facility] e 10 MG razole 2019 ed [facility] Oral Tablet 02:47: Hospit al [Abilify] 00 PM Aripiprazol EST e Sertraline Sertra 05/27/ TABLET 1 ORAL complet [facility] 50 MG Oral line 2019 {[facility] ed [facility] Tablet Hcl 02:47: ule} Hospital [Zoloft] 00 PM Sertraline EST Hcl Mirtazapine Mirtaz 05/27/ TABLET 15 mg ORAL complet [facility] 15 MG Oral apine 2019 ed [facility] Tablet 02:47: Hospital [Remeron] 00 PM EST Lactulose Lactul 05/27/ SOLUTION 10 g ORAL active [facility] 667 MG/ML ose 2019 [facility] Oral 02:47: [facility] Solution 00 PM EST aripiprazol Aripip 05/27/ TABLET 10 mg ORAL complet [facility] e 10 MG razole 2020 ed [facility] Oral Tablet 02:47: Hospit al [Abilify] 00 PM Aripiprazol EST e Famotidine Famoti 05/21/ TABLET 20 mg ORAL complet [facility] 20 MG Oral dine 2020 ed [facility] Tablet 01:26: Hospital [Pepcid] 00 PM EST Famotidine Famoti 05/21/ TABLET 20 mg ORAL complet [facility] 20 MG Oral dine 2020 ed [facility] Tablet 01:26: Hospital [Pepcid] 00 PM EST Famotidine Famoti 05/21/ TABLET 20 mg ORAL complet [facility] 20 MG Oral dine 2020 ed [facility] Tablet 01:26: Hospital [Pepcid] 00 PM EST Famotidine Famoti 05/21/ TABLET 20 mg ORAL complet [facility] 20 MG Oral dine 2020 ed [facility] Tablet 01:26: Hospital [Pepcid] 00 PM EST Famotidine Famoti 05/21/ TABLET 20 mg ORAL active [facility] 20 MG Oral dine 2020 [facility] Tablet 01:26: Hospital [Pepcid] 00 PM EST Famotidine Famoti 05/21/ TABLET 20 mg ORAL active [facility] 20 MG Oral dine 2020 [facility] Tablet 01:26: Hospital [Pepcid] 00 PM EST Famotidine Famoti 05/21/ TABLET 20 mg ORAL active [facility] 20 MG Oral dine 2020 [facility] Tablet 01:26: Hospital [Pepcid] 00 PM EST Famotidine Famoti 05/21/ TABLET 20 mg ORAL complet [facility] 20 MG Oral dine 2020 ed [facility] Tablet 01:26: Hospital [Pepcid] 00 PM EST Famotidine Famoti 05/21/ TABLET 20 mg ORAL complet [facility] 20 MG Oral dine 2020 ed [facility] Tablet 01:26: Hospital [Pepcid] 00 PM EST Famotidine Famoti 05/21/ TABLET 20 mg ORAL active [facility] 20 MG Oral dine 2020 [facility] Tablet 01:26: Hospital [Pepcid] 00 PM EST Famotidine Famoti 05/21/ TABLET 20 mg ORAL complet [facility] 20 MG Oral dine 2020 ed [facility] Tablet 01:26: Hospital [Pepcid] 00 PM EST Famotidine Famoti 05/21/ TABLET 20 mg ORAL complet [facility] 20 MG Oral dine 2020 ed [facility] Tablet 01:26: Hospital [Pepcid] 00 PM EST [...] [facility] Lispro 100 n 2018 IED ANEOUS [facility] UNT/ML Human 06:12: Hospital Injectable Lispro 00 PM Solution EST [Humalog] Insulin Human Lispro Insulin Insuli 03/02/ UNSPECIF 6 SUBCUT complet [facility] Lispro 100 n 2019 IED ANEOUS ed [facility] UNT/ML Human 06:12: Hospital Injectable Lispro 00 PM Solution EST [Humalog] Insulin Human Lispro Insulin Insuli 03/02/ UNSPECIF 15 SUBCUT active [place] Glargine n 2019 IED ANEOUS [facility] 100 UNT/ML [facility] 06:12: [facility] Injectable ne 00 PM Solution EST [Lantus] Insulin Insuli 03/02/ UNSPECIF 15 SUBCUT complet [place] Glargine n 2019 IED ANEOUS ed [facility] 100 UNT/ML [facility] 06:12: [facility] Injectable ne 00 PM Solution EST [Lantus] Insulin Insuli 03/02/ UNSPECIF 15 SUBCUT complet [place] Glargine n 2019 IED ANEOUS ed [facility] 100 UNT/ML [facility] 06:12: [facility] Injectable ne 00 PM Solution EST [Lantus] Insulin Insuli 03/02/ UNSPECIF 6 SUBCUT complet [facility] Lispro 100 n 2018 IED ANEOUS ed [facility] UNT/ML Human 06:12: Hospital Injectable Lispro 00 PM Solution EST [Humalog] Insulin Human Lispro Insulin Insuli 03/02/ UNSPECIF 15 SUBCUT active [place] Glargine n 2019 IED ANEOUS [facility] 100 UNT/ML Gl[facility]i 06:12: [facility] Injectable ne 00 PM Solution EST [Lantus] Insulin Insuli 03/02/ UNSPECIF 15 SUBCUT complet [facility] Glargine n 2018 IED ANEOUS ed [facility] 100 UNT/ML Gl[facility]i 06:12: [facility] Injectable ne 00 PM Solution EST [Lantus] Insulin Insuli 03/02/ UNSPECIF 6 SUBCUT active [facility] Lispro 100 n 2019 IED ANEOUS [facility] UNT/ML Human 06:12: Hospital Injectable Lispro 00 PM Solution EST [Humalog] Insulin Human Lispro Insulin Insuli 03/02/ UNSPECIF 6 SUBCUT complet [facility] Lispro 100 n 2019 IED ANEOUS ed [facility] UNT/ML Human 06:12: Hospital Injectable Lispro 00 PM Solution EST [Humalog] Insulin Human Lispro Insulin Insuli 03/02/ UNSPECIF 6 SUBCUT complet [facility] Lispro 100 n 2019 IED ANEOUS ed [facility] UNT/ML Human 06:12: Hospital Injectable Lispro 00 PM Solution EST [Humalog] Insulin Human Lispro Insulin Insuli 03/02/ UNSPECIF 15 SUBCUT active [place] Glargine n 2019 IED ANEOUS [facility] 100 UNT/ML Gl[facility]i 06:12: [facility] Injectable ne 00 PM Solution EST [Lantus] Insulin Insuli 03/02/ UNSPECIF 15 SUBCUT complet [facility] Glargine n 2019 IED ANEOUS ed [facility] 100 UNT/ML Gl[facility]i 06:12: [facility] Injectable ne 00 PM Solution EST [Lantus] Insulin Insuli 03/02/ UNSPECIF 15 SUBCUT complet [place] Glargine n 2019 IED ANEOUS ed [facility] 100 UNT/ML Gl[facility]i 06:12: [facility] Injectable ne 00 PM Solution EST [Lantus] Insulin Insuli 03/02/ UNSPECIF 6 SUBCUT active [facility] Lispro 100 n 2019 IED ANEOUS [facility] UNT/ML Human 06:12: Hospital Injectable Lispro 00 PM Solution EST [Humalog] Insulin Human Lispro Insulin Insuli 03/02/ UNSPECIF 15 SUBCUT active [facility] Glargine n 2019 IED ANEOUS [facility] 100 UNT/ML Gl[facility]i 06:12: [facility] Injectable ne 00 PM Solution EST [Lantus] Insulin Insuli 03/02/ UNSPECIF 15 SUBCUT active [facility] Glargine n 2019 IED ANEOUS [facility] 100 UNT/ML [facility]i 06:12: [facility] Injectable ne 00 PM Solution EST [Lantus] Insulin Insuli 03/02/ UNSPECIF 15 SUBCUT active [facility] Glargine n 2019 IED ANEOUS [facility] 100 UNT/ML Gl[facility]i 06:12: [facility] Injectable ne 00 PM Solution EST [Lantus] Insulin Insuli 03/02/ UNSPECIF 6 SUBCUT complet [facility] Lispro 100 n 2019 IED ANEOUS ed [facility] UNT/ML Human 06:12: Hospital Injectable Lispro 00 PM Solution EST [Humalog] Insulin Human Lispro Insulin Insuli 03/02/ UNSPECIF 15 SUBCUT complet [place] Glargine n 2019 IED ANEOUS ed [facility] 100 UNT/ML Glargi 06:12: [facility] Injectable ne 00 PM Solution EST [Lantus] Insulin Insuli 03/02/ UNSPECIF 6 SUBCUT active [facility] Lispro 100 n 2019 IED ANEOUS [facility] UNT/ML Human 06:12: Hospital Injectable Lispro 00 PM Solution EST [Humalog] Insulin Human Lispro Insulin Insuli 03/02/ UNSPECIF 15 SUBCUT complet [place] Glargine n 2019 IED ANEOUS ed [facility] 100 UNT/ML Glargi 06:12: [facility] Injectable ne 00 PM Solution EST [Lantus] Insulin Insuli 03/02/ UNSPECIF 6 SUBCUT complet [facility] Lispro 100 n 2019 IED ANEOUS ed [facility] UNT/ML Human 06:12: Hospital Injectable Lispro 00 PM Solution EST [Humalog] Insulin Human Lispro Insulin Insuli 03/02/ UNSPECIF 6 SUBCUT active [facility] Lispro 100 n 2019 IED ANEOUS [facility] UNT/ML Human 06:12: Hospital Injectable Lispro 00 PM Solution EST [Humalog] Insulin Human Lispro Insulin Insuli 03/02/ UNSPECIF 15 SUBCUT complet [place] Glargine n 2019 IED ANEOUS ed [facility] 100 UNT/ML Glargi 06:12: [facility] Injectable ne 00 PM Solution EST [Lantus] Insulin Insuli 03/02/ UNSPECIF 6 SUBCUT active [facility] Lispro 100 n 2019 IED ANEOUS [facility] UNT/ML Human 06:12: Hospital Injectable Lispro 00 PM Solution EST [Humalog] Insulin Human Lispro Insulin Insuli 03/02/ UNSPECIF 15 SUBCUT active [facility] Glargine n 2019 IED ANEOUS [facility] 100 UNT/ML Glargi 06:12: [facility] Injectable ne 00 PM Solution EST [Lantus] Insulin Insuli 03/02/ UNSPECIF 15 SUBCUT active [facility] Glargine n 2018 IED ANEOUS [facility] 100 UNT/ML Glargi 06:12: [facility] Injectable ne 00 PM Solution EST [Lantus] Insulin Insuli 03/02/ UNSPECIF 6 SUBCUT complet [facility] Lispro 100 n 2019 IED ANEOUS ed [facility] UNT/ML Human 06:12: Hospital Injectable Lispro 00 PM Solution EST [Humalog] Insulin Human Lispro Insulin Insuli 03/02/ UNSPECIF 6 SUBCUT complet [facility] Lispro 100 n 2019 IED ANEOUS ed [facility] UNT/ML Human 06:12: Hospital Injectable Lispro 00 PM Solution EST [Humalog] Insulin Human Lispro Insulin Insuli 03/02/ UNSPECIF 6 SUBCUT active [facility] Lispro 100 n 2019 IED ANEOUS [facility] UNT/ML Human 06:12: Hospital Injectable Lispro 00 PM Solution EST [Humalog] Insulin Human Lispro Insulin Insuli 03/02/ UNSPECIF 6 SUBCUT complet [facility] Lispro 100 n 2019 IED ANEOUS ed [facility] UNT/ML Human 06:12: Hospital Injectable Lispro 00 PM Solution EST [Humalog] Insulin Human Lispro Insulin Insuli 03/02/ UNSPECIF 6 SUBCUT complet [facility] Lispro 100 n 2019 IED ANEOUS ed [facility] UNT/ML Human 06:12: Hospital Injectable Lispro 00 PM Solution EST [Humalog] Insulin Human Lispro Insulin Insuli 03/02/ UNSPECIF 15 SUBCUT complet [facility] Glargine n 2019 IED ANEOUS ed [facility] 100 UNT/ML Glargi 06:12: [facility] Injectable ne 00 PM Solution EST [Lantus] Insulin Insuli 03/02/ UNSPECIF 15 SUBCUT complet [facility] Glargine n 2018 IED ANEOUS ed [facility] 100 UNT/ML Glargi 06:12: [facility] Injectable ne 00 PM Solution EST [Lantus] Insulin Insuli 03/02/ UNSPECIF 6 SUBCUT active [facility] Lispro 100 n 2018 IED ANEOUS [facility] UNT/ML Human 06:12: Hospital Injectable Lispro 00 PM Solution EST [Humalog] Insulin Human Lispro Pen Needle 03/01/ NOT complet Michelle t - NOT 2018 [facility]IC [facility] 00 AM EST Risperidone Risper TABLET 0.25 ORAL complet W mera 0.5 MG Oral idone mg ed [facility]t [facility] Risperidone Risper TABLET 1 mg ORAL complet W mera 1 MG Oral idone ed [facility] Tablet [facility] Sertraline Sertra TABLET 200 ORAL complet Wh ite 100 MG Oral line mg ed [facility] Tablet Hcl [facility] [Zoloft] Sertraline Hcl Sertraline Sertra TABLET 1 ORAL complet Wh ite 50 MG Oral line {Caps ed [facility] Tablet Hcl ule} Hospital [Zoloft] Sertraline Hcl Lisinopril Lisino TABLET 2.5 ORAL complet Wh ite 2.5 MG Oral pril mg ed [facility] Tablet [facility] Lisinopril Lisino TABLET 2.5 ORAL complet Wh ite 2.5 MG Oral pril mg ed [facility] Tablet [facility] Mirtazapine Mirtaz TABLET 30 mg ORAL complet [facility] 30 MG Oral apine ed [facility] Tablet [facility] aripiprazol Aripip TABLET 5 mg ORAL complet W mera e 5 MG Oral razole ed [facility] Tablet [facility] [Abilify] Aripiprazol e Lactulose Lactul SOLUTION 10 g ORAL complet W mera 667 MG/ML ose ed [facility] Solution Mirtazapine Mirtaz TABLET 30 mg ORAL complet [facility] 30 MG Oral apine ed [facility]t [facility] aripiprazol Aripip TABLET 10 mg ORAL complet White e 10 MG razole ed [facility] Oral Tablet [facility] [Abilify] Aripiprazol e Mirtazapine Mirtaz TABLET 15 mg ORAL complet [facility] 15 MG Oral apine ed [facility] Tablet [facility] [Remeron] Lisinopril Lisino TABLET 2.5 ORAL complet Wh ite 2.5 MG Oral pril mg ed [facility]t [facility] Risperidone Risper TABLET 1 mg ORAL complet W mera 1 MG Oral idone ed [facility]t [facility] aripiprazol Aripip TABLET 10 mg ORAL complet [facility] e 10 MG razole ed [facility] Oral Tablet [facility] [Abilify] Aripiprazol e Mirtazapine Mirtaz TABLET 30 mg ORAL complet [facility] 30 MG Oral apine ed [facility]t [facility] Mirtazapine Mirtaz TABLET 30 mg ORAL complet [facility] 30 MG Oral apine ed [facility]t [facility] Sertraline Sertra TABLET 200 ORAL complet Wh ite 100 MG Oral line mg ed [facility] Tablet [facility] [Zoloft] Sertraline Hcl aripiprazol Aripip TABLET 10 mg ORAL complet White e 10 MG razole ed [facility] Oral Tablet [facility] [Abilify] Aripiprazol e Risperidone Risper TABLET 0.25 ORAL complet W mera 0.5 MG Oral idone mg ed [facility] Tablet [facility] Sertraline Sertra TABLET 200 ORAL complet Wh ite 100 MG Oral line mg ed [facility] Tablet [facility] [Zoloft] Sertraline Hcl Sertraline Sertra TABLET 200 ORAL complet Wh ite 100 MG Oral line mg ed [facility] Tablet [facility]cl [facility] [Zoloft] Sertraline Hcl aripiprazol Aripip TABLET 5 mg ORAL complet W mera e 5 MG Oral razole ed [facility] Tablet [facility] [Abilify] Aripiprazol e Sertraline Sertra TABLET 200 ORAL complet Wh ite 100 MG Oral line mg ed [facility] Tablet [facility] [Zoloft] Sertraline Hcl Mirtazapine Mirtaz TABLET 30 mg ORAL complet [facility] 30 MG Oral apine ed [facility]t [facility] Mirtazapine Mirtaz TABLET 30 mg ORAL complet [facility] 30 MG Oral apine ed [facility] Risperidone Risper TABLET 1 mg ORAL complet W mera 1 MG Oral idone ed [facility]t [facility] Mirtazapine Mirtaz TABLET 15 mg ORAL complet [facility] 15 MG Oral apine ed [facility] Tablet [facility] [Remeron] Sertraline Sertra TABLET 1 ORAL complet Wh ite 50 MG Oral line {Caps ed [facility] Tablet Hcl ule} Hospital [Zoloft] Sertraline Hcl aripiprazol Aripip TABLET 5 mg ORAL complet W mera e 5 MG Oral razole ed [facility] Tablet [facility] [Abilify] Aripiprazol e aripiprazol Aripip TABLET 5 mg ORAL complet W mera e 5 MG Oral razole ed [facility]t [facility] [Abilify] Aripiprazol e Mirtazapine Mirtaz TABLET 15 mg ORAL complet [facility] 15 MG Oral apine ed [facility] Tablet [facility] [Remeron] Lisinopril Lisino TABLET 2.5 ORAL complet Wh ite 2.5 MG Oral pril mg ed [facility]t [facility] aripiprazol Aripip TABLET 10 mg ORAL complet White e 10 MG razole ed [facility]t [facility] [Abilify] Aripiprazol e Sertraline Sertra TABLET 1 ORAL complet Wh ite 50 MG Oral line {Caps ed [facility] Tablet Hcl ule} Hospital [Zoloft] Sertraline Hcl Risperidone Risper TABLET 1 mg ORAL complet W mera 1 MG Oral idone ed [facility]t [facility] Mirtazapine Mirtaz TABLET 30 mg ORAL complet [facility] 30 MG Oral apine ed [facility] Sertraline Sertra TABLET 200 ORAL complet Wh ite 100 MG Oral line mg ed [facility]t [facility] [Zoloft] Sertraline Hcl Lactulose Lactul SOLUTION 10 g ORAL complet W mera 667 MG/ML ose ed [facility] Solution Mirtazapine Mirtaz TABLET 30 mg ORAL complet [facility] 30 MG Oral apine ed [facility]t [facility] Lactulose Lactul SOLUTION 10 g ORAL complet W mera 667 MG/ML ose ed [facility] Solution Lactulose Lactul SOLUTION 10 g ORAL complet W mera 667 MG/ML ose ed [facility] Solution Risperidone Risper TABLET 1 mg ORAL complet W mera 1 MG Oral idone ed [facility] aripiprazol Aripip TABLET 10 mg ORAL complet White e 10 MG razole ed [facility] [Abilify] Aripiprazol e aripiprazol Aripip TABLET 5 mg ORAL complet W mera e 5 MG Oral razole ed [facility]t [facility] [Abilify] Aripiprazol e Sertraline Sertra TABLET 200 ORAL complet Wh ite 100 MG Oral line mg ed [facility]t [facility] [Zoloft] Sertraline Hcl Risperidone Risper TABLET 0.25 ORAL complet W mera 0.5 MG Oral idone mg ed [facility] Tablet [facility] aripiprazol Aripip TABLET 5 mg ORAL complet W mera e 5 MG Oral razole ed [facility]t [facility] [Abilify] Aripiprazol e Sertraline Sertra TABLET 1 ORAL complet Wh ite 50 MG Oral line {Caps ed [facility] Tablet Hcl ule} Hospital [Zoloft] Sertraline Hcl Sertraline Sertra TABLET 1 ORAL complet Wh ite 50 MG Oral line {Caps ed [facility] Tablet Hcl ule} Hospital [Zoloft] Sertraline Hcl Risperidone Risper TABLET 1 mg ORAL complet W mera 1 MG Oral idone ed [facility]t [facility] Risperidone Risper TABLET 1 mg ORAL complet W mera 1 MG Oral idone ed [facility] Mirtazapine Mirtaz TABLET 15 mg ORAL complet White 15 MG Oral apine ed [facility] [Remeron] Mirtazapine Mirtaz TABLET 15 mg ORAL complet [facility] 15 MG Oral apine ed [facility] [Remeron] Mirtazapine Mirtaz TABLET 15 mg ORAL complet [facility] 15 MG Oral apine ed [facility] [Remeron] Risperidone Risper TABLET 1 mg ORAL complet W mera 1 MG Oral idone ed [facility] Risperidone Risper TABLET 0.25 ORAL complet W mera 0.5 MG Oral idone mg ed [facility] Lactulose Lactul SOLUTION 10 g ORAL complet W mera 667 MG/ML ose ed [facility] aripiprazol Aripip TABLET 5 mg ORAL complet W mera e 5 MG Oral razole ed [facility] [Abilify] Aripiprazol e Sertraline Sertra TABLET 200 ORAL complet Wh ite 100 MG Oral line mg ed [facility] [Zoloft] Sertraline Hcl Mirtazapine Mirtaz TABLET 30 mg ORAL complet [facility] 30 MG Oral apine ed [facility] Sertraline Sertra TABLET 1 ORAL complet Wh ite 50 MG Oral line {Caps ed [facility] [Zoloft] Sertraline Hcl Lactulose Lactul SOLUTION 10 g ORAL complet W mera 667 MG/ML ose ed [facility] Sertraline Sertra TABLET 1 ORAL complet Wh ite 50 MG Oral line {Caps ed [facility] [Zoloft] Sertraline Hcl Sertraline Sertra TABLET 200 ORAL complet Wh ite 100 MG Oral line mg ed [facility] [Zoloft] Sertraline Hcl aripiprazol Aripip TABLET 5 mg ORAL complet W mera e 5 MG Oral razole ed [facility] [Abilify] Aripiprazol e Mirtazapine Mirtaz TABLET 15 mg ORAL complet [place] 15 MG Oral apine ed [facility] [Remeron] Risperidone Risper TABLET 1 mg ORAL complet W mera 1 MG Oral idone ed [facility] Mirtazapine Mirtaz TABLET 30 mg ORAL complet [place] 30 MG Oral apine ed [facility] aripiprazol Aripip TABLET 10 mg ORAL complet [facility] e 10 MG razole ed [facility] [Abilify] Aripiprazol e Risperidone Risper TABLET 1 mg ORAL complet W mera 1 MG Oral idone ed [facility] Mirtazapine Mirtaz TABLET 30 mg ORAL complet [place] 30 MG Oral apine ed [facility] Risperidone Risper TABLET 1 mg ORAL complet W mera 1 MG Oral idone ed [facility] Sertraline Sertra TABLET 1 ORAL complet Wh ite 50 MG Oral line {Caps ed [facility] [Zoloft] Sertraline Hcl aripiprazol Aripip TABLET 10 mg ORAL complet [facility] e 10 MG razole ed [facility] [Abilify] Aripiprazol e Sertraline Sertra TABLET 1 ORAL complet Wh ite 50 MG Oral line {Caps ed [facility] [Zoloft] Sertraline Hcl Mirtazapine Mirtaz TABLET 30 mg ORAL complet [place] 30 MG Oral apine ed [facility] Lactulose Lactul SOLUTION 10 g ORAL complet W mera 667 MG/ML ose ed [facility] Lisinopril Lisino TABLET 2.5 ORAL complet Wh ite 2.5 MG Oral pril mg ed [facility] aripiprazol Aripip TABLET 10 mg ORAL complet [facility] e 10 MG razole ed [facility] [Abilify] Aripiprazol e Sertraline Sertra TABLET 1 ORAL complet Wh ite 50 MG Oral line {Caps ed [facility] [Zoloft] Sertraline Hcl Lactulose Lactul SOLUTION 10 g ORAL complet W mera 667 MG/ML ose ed [facility] Mirtazapine Mirtaz TABLET 15 mg ORAL complet [place] 15 MG Oral apine ed [facility] [Remeron] Lactulose Lactul SOLUTION 10 g ORAL complet W mera 667 MG/ML ose ed [facility] aripiprazol Aripip TABLET 5 mg ORAL complet W mera e 5 MG Oral razole ed [facility] [Abilify] Aripiprazol e Lactulose Lactul SOLUTION 10 g ORAL complet W mera 667 MG/ML ose ed [facility] aripiprazol Aripip TABLET 10 mg ORAL complet [place] e 10 MG razole ed [facility] [Abilify] Aripiprazol e Sertraline Sertra TABLET 200 ORAL complet Wh ite 100 MG Oral line mg ed [facility] [Zoloft] Sertraline Hcl Sertraline Sertra TABLET 200 ORAL complet Wh ite 100 MG Oral line mg ed [facility] [Zoloft] Sertraline Hcl Mirtazapine Mirtaz TABLET 15 mg ORAL complet [place] 15 MG Oral apine ed [facility] [Remeron] aripiprazol Aripip TABLET 10 mg ORAL complet [place] e 10 MG razole ed [facility] [Abilify] Aripiprazol e Mirtazapine Mirtaz TABLET 15 mg ORAL complet [place] 15 MG Oral apine ed [facility] [Remeron] Sertraline Sertra TABLET 1 ORAL complet Wh ite 50 MG Oral line {Caps ed [facility] [Zoloft] Sertraline Hcl Lisinopril Lisino TABLET 2.5 ORAL complet Wh ite 2.5 MG Oral pril mg ed [facility] Risperidone Risper TABLET 0.25 ORAL complet W mera 0.5 MG Oral idone mg ed [facility] aripiprazol Aripip TABLET 5 mg ORAL complet W mera e 5 MG Oral razole ed [facility] [Abilify] Aripiprazol e Risperidone Risper TABLET 0.25 ORAL complet W mera 0.5 MG Oral idone mg ed [facility] Risperidone Risper TABLET 1 mg ORAL complet W mera 1 MG Oral idone ed [facility] Risperidone Risper TABLET 0.25 ORAL complet W mera 0.5 MG Oral idone mg ed [facility] Sertraline Sertra TABLET 200 ORAL complet Wh ite 100 MG Oral line mg ed [facility] [Zoloft] Sertraline Hcl Mirtazapine Mirtaz TABLET 15 mg ORAL complet [place] 15 MG Oral apine ed [facility] [Remeron] Lisinopril Lisino TABLET 2.5 ORAL complet Wh ite 2.5 MG Oral pril mg ed [facility] Risperidone Risper TABLET 0.25 ORAL complet W mera 0.5 MG Oral idone mg ed [facility] Lactulose Lactul SOLUTION 10 g ORAL complet W mera 667 MG/ML ose ed [facility] aripiprazol Aripip TABLET 10 mg ORAL complet [place] e 10 MG razole ed [facility] [Abilify] Aripiprazol e Lisinopril Lisino TABLET 2.5 ORAL complet Wh ite 2.5 MG Oral pril mg ed [facility] aripiprazol Aripip TABLET 5 mg ORAL complet W mera e 5 MG Oral razole ed [facility] [Abilify] Aripiprazol e Insurance Providers Payer name Policy type Policy ID Covered Covered republican's Policy P jon / Coverage republican ID relationship to Gonsalez Inf ormation type gonsalez [facility] [id number] SP [id number] STRGY-AFF [place] [id number] PT [id number] HEALTH PLAN SELF PAY 0000 Self 0000 MEDICAID OP [id number] Self [id number] [facility] AHP [id number] Self [id number] [facility] O SELF PAY [id number] Self [id number] MEDICAID OP [id number] Self [id number] MMC AHP [id number] Self [id number] [facility] MEDICAID [id number] PT [id number] AFFINITY [id number] PT [id number] HEALTH PLAN AFFINITY [id number] PT [id number] ESSENTIAL PLAN 3 SELF PAY [id number] Self [id number] MEDICAID OP [id number] Self [id number] MMC [id number] Self [id number] AFFINITY/BEAC ON AFFINITY [id number] PT [id number] HEALTH PLAN AFFINITY [id number] PT [id number] HEALTH PLAN SELF PAY 0 Self 0 MEDICAID INP [id number] Self [id number] F PSYCH MMC AHP [id number] Self [id number] [facility] AFFINITY [id number] PT [id number] HEALTH PLAN SELF PAY 0 Self 0 MEDICAID INP [id number] Self [id number] F PSYCH SELF PAY 0 Self 0 MEDICAID OP [id number] Self [id number] MMC AHP [id number] Self [id number] [facility] SELF PAY 0000 Self 0000 MEDICAID OP [id number] Self [id number] SELF PAY PT INSURANCE SELF PAY 00 Self 00 MEDICAID INP [id number] Self [id number] F PSYCH AFFINITY [id number] PT [id number] HEALTH PLAN Medicaid [id number] S [id number] Regular Clinic Visit Problems, Conditions, and Diagnoses Code Display Name Description Problem Type Effective Data Sour ce(s) Dates [id number] Moderate manic Moderate manic Complaint 03/08/2019 [facility] RT bipolar I disorder bipolar I 07:00:00 PM ([facility] disorder EST - Association of 06/28/2019 [place]) 06:15:00 PM EDT 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 Diagnosis 01/18/2020 [place] use of insulin 02:58:00 PM Hospital EDT K72.90 Hepatic failure, K72.90 Diagnosis 01/18/[address] [place] unspecified without 02:58:00 PM Hosp ital coma EDT D63.8 Anemia in other D63.8 Diagnosis 01/18/2020 [facility] chronic diseases 02:58:00 PM Hospita l classified elsewhere EDT E83.39 Other disorders of E83.39 Diagnosis 01/18/2020 [place] phosphorus metabolism 02:58:00 PM Ho spital EDT E87.5 Hyperkalemia E87.5 Diagnosis 01/18/2020 [place] 02:58:00 PM Hospital EDT K74.60 Unspecified cirrhosis K74.60 Diagnosis 01/18/2020 [facility] 02:58:00 PM Hospital EDT Z68.20 Body mass index (BMI) Z68.20 Diagnosis 01/18/2020 [facility] 20.0-20.9, adult 02:58:00 PM Hospita l EDT E43 Unspecified severe E43 Diagnosis 01/18/2020 [place] protein-calorie 02:58:00 PM Hospital malnutrition EDT Z11.59 Encounter for Z11.59 Diagnosis 01/18/2020 [facility] screening for other 02:58:00 PM Hosp ital viral diseases EDT F14.10 Cocaine abuse, F14.10 Diagnosis 01/18/[place] uncomplicated 02:58:00 PM Hospital EDT I10 Essential (primary) I10 Diagnosis 01/18/2020 [place] hypertension 02:58:00 PM Hospital EDT F31.9 Bipolar disorder, F31.9 Diagnosis 01/18/2020 [place] unspecified 02:58:00 PM Hospital EDT Z91.14 Patient's other Z91.14 Diagnosis 01/18/2020 [facility] noncompliance with 02:58:00 PM [facility]pi [facility] medication regimen EDT N17.9 Acute kidney failure, N17.9 Diagnosis 01/18/2020 [facility] unspecified 02:58:00 PM Hospital EDT E11.10 Type 2 diabetes E11.10 Diagnosis 01/18/2020 [facility] mellitus with 02:58:00 PM Hospital ketoacidosis without EDT coma E86.0 Dehydration E86.0 Diagnosis 01/10/2020 [place] 12:45:00 AM Hospital EDT E11.65 Type 2 diabetes E11.65 Diagnosis 01/10/2020 [facility] mellitus with 12:45:00 AM Hospital hyperglycemia EDT B88.8 Other specified B88.8 Diagnosis 01/08/2020 [facility] infestations 07:17:00 AM Hospital EDT E03.9 Hypothyroidism, HYPOTHYROIDISM, Diagnosis 12/24/2019 Michelle Ferrari unspecified UNSPECIFIED 07:01:[address] EDT E11.9 Type 2 diabetes TYPE 2 DIABETES Diagnosis 12/24/2019 Michelle Ferrari mellitus without MELLITUS WITHOUT 07:01:[address] [facility] complications COMPLICATIONS EDT E11.9 Type 2 diabetes E11.9 Diagnosis 12/21/2019 [facility] mellitus without 05:38:00 AM Hospita l complications EDT M62.81 Muscle weakness M62.81 Diagnosis 12/21/2019 [facility] (generalized) 05:38:00 AM Hospital EDT F41.9 Anxiety disorder, F41.9 Diagnosis 12/15/2019 [place] unspecified 10:09:00 PM Hospital EDT Z87.891 Personal history of Z87.891 Diagnosis 12/15/2019 [place] nicotine dependence 10:09:00 PM Hosp ital EDT E03.9 Hypothyroidism, E03.9 Diagnosis 12/15/2019 [facility] unspecified 10:09:00 PM Hospital EDT K76.6 Portal hypertension K76.6 Diagnosis 12/15/2019 [place] 10:09:00 PM Hospital EDT K70.30 Alcoholic cirrhosis K70.30 Diagnosis 12/15/2019 [place] of liver without 10:09:00 PM Hospita l ascites EDT E83.52 Hypercalcemia E83.52 Diagnosis 12/15/2019 [place] 10:09:00 PM Hospital EDT G92 Toxic encephalopathy G92 Diagnosis 12/15/2019 [facility] 10:09:00 PM Hospital EDT R03.0 Elevated R03.0 Diagnosis 11/30/2019 [place] blood-pressure 05:16:00 PM Hospital reading, without EDT diagnosis of hypertension F19.11 Other psychoactive F19.11 Diagnosis 11/30/2019 [place] substance abuse, in 05:16:00 PM Hosp ital remission EDT F10.11 Alcohol abuse, in F10.11 Diagnosis 11/30/2019 [place] remission 05:16:00 PM Hospital EDT E07.9 Disorder of thyroid, E07.9 Diagnosis 11/30/2019 [facility] unspecified 05:16:00 PM Hospital EDT Z87.820 Personal history of Z87.820 Diagnosis 11/30/2019 [place] traumatic brain 05:16:00 PM Hospital injury EDT E10.65 Type 1 diabetes E10.65 Diagnosis 11/30/2019 [facility] mellitus with 05:16:00 PM Hospital hyperglycemia EDT Z91.19 Patient's Z91.19 Diagnosis 11/20/2019 [place] noncompliance with 11:21:00 PM [facility]pi [facility] other medical EDT treatment and regimen T43.225A Adverse effect of T43.225A Diagnosis 11/20/2019 [place] selective serotonin 11:21:00 PM Hosp ital reuptake inhibitors, EDT initial encounter 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 11/20/2019 [place] with hepatic 11:21:00 PM Hospital necrosis, without EDT coma Z91.128 Patient's intentional Z91.128 Diagnosis 11/20/2019 [facility] underdosing of 11:21:00 PM Hospital medication regimen [...] to known F05 Diagnosis 11/20/2019 [facility] physiological 11:21:00 PM Hospital condition EDT E10.10 Type 1 diabetes E10.10 Diagnosis 11/20/2019 [facility] mellitus with 11:21:00 PM Hospital ketoacidosis without EDT coma Z13.84 Encounter for ENCOUNTER FOR Diagnosis 11/02/2019 [facility] screening for dental SCREENING FOR 09:23:00 AM [facility] disorders DENTAL DISORDERS EDT [employer] R51 Headache R51 Diagnosis 10/26/2019 [place] 02:30:00 AM Hospital EDT F19.10 Other psychoactive F19.10 Diagnosis 06/17/2019 [place] substance abuse, 09:07:00 PM Hospita l uncomplicated EST F10.21 Alcohol dependence, F10.21 Diagnosis 06/17/2019 [place] in remission 09:07:00 PM Hospital EST F32.9 [...] EST F14.20 Cocaine dependence, F14.20 Diagnosis 05/25/2019 [place] uncomplicated 09:03:00 PM Hospital EST E78.5 Hyperlipidemia, E78.5 Diagnosis 05/25/2019 [facility] unspecified 09:03:00 PM Hospital EST R10.13 Epigastric pain R10.13 Diagnosis 05/19/2019 [facility] 05:49:00 PM Hospital EST E10.8 Type 1 diabetes E10.8 Diagnosis 05/19/2019 [facility] mellitus with 05:49:00 PM Hospital unspecified EST complications E83.42 Hypomagnesemia E83.42 Diagnosis 05/19/2019 [place] 05:49:00 PM Hospital EST Z79.82 halfway (current) Z79.82 Diagnosis 05/19/2019 [place] use of aspirin 05:49:00 PM Hospital EST T43.505A Adverse effect of T43.505A Diagnosis 05/19/2019 [place] unspecified 05:49:00 PM Hospital antipsychotics and EST neuroleptics, initial encounter R94.31 Abnormal R94.31 Diagnosis 05/19/2019 [place] electrocardiogram 05:49:00 PM Hospit al [ECG] [EKG] EST F25.1 Schizoaffective F25.1 Diagnosis 05/19/2019 [facility] disorder, depressive 05:49:00 PM Hos pital type EST R45.851 Suicidal ideations R45.851 Diagnosis 05/17/2019 [place] 08:05:00 PM Hospital EST E10.649 Type 1 diabetes E10.649 Diagnosis 04/29/2019 [facility] mellitus with 12:53:00 PM Hospital hypoglycemia without EST coma R05 Cough R05 Diagnosis 04/06/2019 [place] 10:11:00 PM Hospital EST E87.6 Hypokalemia E87.6 Diagnosis 04/06/2019 [place] 10:11:00 PM Hospital EST E11.649 Type 2 diabetes E11.649 Diagnosis 04/06/2019 [facility] mellitus with 10:11:00 PM Hospital hypoglycemia without EST coma F10.20 Alcohol dependence, F10.20 Diagnosis 03/01/2019 [place] uncomplicated 10:57:00 PM Hospital EST Z79.899 Other manager intermediate Z79.899 Diagnosis 03/01/2019 [facility] (current) drug 10:57:00 PM Hospital therapy EST F31.4 Bipolar disorder, F31.4 Diagnosis 03/01/2019 [place] current episode 10:57:00 PM Hospital depressed, severe, EST without psychotic features Z91.5 Personal history of Z91.5 Diagnosis 03/01/2019 [place] self-harm 10:57:00 PM Hospital EST F17.200 Nicotine dependence, F17.200 Diagnosis 02/14/2019 [facility] unspecified, 11:16:00 AM Hospital uncomplicated EST Surgeries/Procedures Procedure Description Date Indications Data Source(s) Physical therapy procedure 01/20/2020 [facility] (regime/therapy) 12:00:00 AM Hospital EDT Electrocardiographic procedure 01/18/2020 [place] (procedure) 12:00:00 AM Hospital EDT Plain chest X-ray (procedure) 01/18/2020 [place] 12:00:00 AM Hospital EDT Computed tomography of head 01/18/2020 [place] without contrast 12:00:00 AM Hospital EDT XR forearm right 01/10/2020 [place] 12:00:00 AM Hospital EDT XR elbow right 01/10/2020 [place] 12:00:00 AM Hospital EDT Plain chest X-ray (procedure) 01/10/2020 [place] 12:00:00 AM Hospital EDT Electrocardiographic procedure 01/10/2020 [place] (procedure) 12:00:00 AM Hospital EDT Hopd covid-19 spec collect 01/10/2020 [facility] 12:00:00 AM Hospital EDT Hydrate iv infusion add-on 01/10/2020 [facility] 12:00:00 AM Hospital EDT Ther/proph/diag inj iv push 01/10/2020 [place] 12:00:00 AM Hospital EDT X-ray exam of forearm 01/10/2020 [place] 12:00:00 AM Hospital EDT X-ray exam of elbow 01/10/[address] [place] [facility] 12:00:00 AM [facility] EDT X-ray exam chest 1 view 01/10/2020 [facility] 12:00:00 AM Hospital EDT Electrocardiogram tracing 01/10/2020 [facility] 12:00:00 AM Hospital EDT Reagent strip/blood glucose 01/10/2020 [place] 12:00:00 AM Hospital EDT Comprehen metabolic panel 01/10/2020 [facility] 12:00:00 AM Hospital EDT Mr-staph dna amp probe 01/10/2020 [place] 12:00:00 AM Hospital EDT SARS-COV-2 COVID-19 AMP PRB 01/10/2020 [place] 12:00:00 AM Hospital EDT Complete cbc w/auto diff wbc 01/10/2020 [place] 12:00:00 AM Hospital EDT Emergency dept visit 01/10/2020 [facility] 12:00:00 AM Hospital EDT XR forearm right 01/10/2020 [place] 12:00:00 AM Hospital EDT XR elbow right 01/10/2020 [place] 12:00:00 AM Hospital EDT Plain chest X-ray (procedure) 01/10/2020 [place] 12:00:00 AM Hospital EDT Electrocardiographic procedure 01/10/2020 [place] (procedure) 12:00:00 AM Hospital EDT Drug test prsmv chem anlyzr 01/08/2020 [place] 12:00:00 AM Hospital EDT Comprehen metabolic panel 01/08/2020 [facility] 12:00:00 AM Hospital EDT Drug test prsmv chem anlyzr 01/08/2020 [place] 12:00:00 AM Hospital EDT Macroscopic exam arthropod 01/08/2020 [facility] 12:00:00 AM Hospital EDT Blood culture for bacteria 01/08/2020 [facility] 12:00:00 AM Hospital EDT Mr-staph dna amp probe 01/08/2020 [place] 12:00:00 AM Hospital EDT SARS-COV-2 COVID-19 AMP PRB 01/08/2020 [place] 12:00:00 AM Hospital EDT Prothrombin time 01/08/2020 [place] 12:00:00 AM Hospital EDT Complete cbc w/auto diff wbc 01/08/2020 [place] 12:00:00 AM Hospital EDT Thromboplastin time partial 01/08/2020 [place] 12:00:00 AM Hospital EDT Blood gases any combination 01/08/2020 [place] 12:00:00 AM Hospital EDT Urinalysis auto w/o scope 01/08/2020 [facility] 12:00:00 AM Hospital EDT Emergency dept visit 01/08/2020 [place] 12:00:00 AM Hospital EDT Plain chest X-ray (procedure) 01/08/2020 [place] 12:00:00 AM Hospital EDT Plain chest X-ray (procedure) 01/08/2020 [place] 12:00:00 AM Hospital EDT Plain chest X-ray (procedure) 01/08/2020 [place] 12:00:00 AM Hospital EDT RINGERS LACTATE INFUSION 01/08/2020 [facility] 12:00:00 AM Hospital EDT DRUGS UNCLASSIFIED INJECTION 01/08/2020 [place] 12:00:00 AM Hospital EDT Hopd covid-19 spec collect 01/08/2020 [facility] 12:00:00 AM Hospital EDT Hydrate iv infusion add-on 01/08/2020 [facility] 12:00:00 AM Hospital EDT Ther/proph/diag inj iv push 01/08/2020 [place] 12:00:00 AM Hospital EDT X-ray exam chest 1 view 01/08/2020 [facility] 12:00:00 AM Hospital EDT Assay of troponin qual 01/08/2020 [place] 12:00:00 AM Hospital EDT Assay of phosphorus 01/08/[address] [place] 12:00:00 AM Hospital EDT Assay of magnesium 01/08/2020 [facility] 12:00:00 AM [facility] EDT Assay of lipase 01/08/2020 [place] 12:00:00 AM Hospital EDT Assay of lactic acid 01/08/2020 [place] 12:00:00 AM Hospital EDT Reagent strip/blood glucose 01/08/2020 [place] 12:00:00 AM Hospital EDT NORMAL SALINE SOLUTION INFUS 2020 [place] 12:00:00 AM Hospital EDT INSULIN INJECTION 2020 [facility] 12:00:00 AM Hospital EDT Reagent strip/blood glucose 2020 [place] 12:00:00 AM Hospital EDT Metabolic panel total ca 2020 [facility] 12:00:00 AM Hospital EDT Complete cbc w/auto diff wbc 2020 [place] 12:00:00 AM Hospital EDT Urinalysis auto w/o scope 2020 [facility] 12:00:00 AM Hospital EDT Ther/proph/diag inj iv push 2020 [place] 12:00:00 AM Hospital EDT Emergency dept visit 2020 [facility] 12:00:00 AM Hospital EDT NORMAL SALINE SOLUTION INFUS 2020 [place] 12:00:00 AM Hospital EDT INSULIN INJECTION 2020 [facility] 12:00:00 AM Hospital EDT Reagent strip/blood glucose 2020 [place] 12:00:00 AM Hospital EDT Metabolic panel total ca 2020 [facility] 12:00:00 AM Hospital EDT Complete cbc w/auto diff wbc 2020 [place] 12:00:00 AM Hospital EDT Urinalysis auto w/o scope 2020 [facility] 12:00:00 AM Hospital EDT Ther/proph/diag inj iv push 2020 [place] 12:00:00 AM Hospital EDT Emergency dept visit 2020 [facility] 12:00:00 AM Hospital EDT NORMAL SALINE SOLUTION INFUS 2020 [place] 12:00:00 AM Hospital EDT INSULIN INJECTION 2020 [facility] 12:00:00 AM Hospital EDT Reagent strip/blood glucose 2020 [place] 12:00:00 AM Hospital EDT Metabolic panel total ca 2020 [facility] 12:00:00 AM Hospital EDT Complete cbc w/auto diff wbc 2020 [place] 12:00:00 AM Hospital EDT Urinalysis auto w/o scope 2020 [facility] 12:00:00 AM Hospital EDT Ther/proph/diag inj iv push 2020 [place] 12:00:00 AM Hospital EDT Emergency dept visit 2020 [place] 12:00:00 AM Hospital EDT Hepatitis c revrs trnscrpj 12/29/2019 [facility] 12:00:00 AM Hospital EDT Alpha-fetoprotein serum 12/29/2019 [facility] 12:00:00 AM Hospital EDT Assay of magnesium 12/29/2019 [facility] 12:00:00 AM Hospital EDT Hepatic function panel 12/29/2019 [place] 12:00:00 AM Hospital EDT Iron binding test 12/29/2019 [place] 12:00:00 AM Hospital EDT Assay of iron 12/29/2019 [place] 12:00:00 AM Hospital EDT Hepatitis a antibody 12/29/2019 [place] 12:00:00 AM Hospital EDT Hepatitis a igm antibody 12/29/2019 [facility] 12:00:00 AM Hospital EDT Hepatitis b surface ag ia 12/29/2019 [facility] 12:00:00 AM Hospital EDT Hep b surface antibody 12/29/2019 [place] 12:00:00 AM Hospital EDT Hep b core antibody total 12/29/2019 [facility] 12:00:00 AM Hospital EDT Assay of ferritin 12/29/2019 [place] 12:00:00 AM Hospital EDT Metabolic panel total ca 12/29/2019 [facility] 12:00:00 AM Hospital EDT Prothrombin time 12/29/2019 [place] 12:00:00 AM Hospital EDT Complete cbc w/auto diff wbc 12/29/2019 [place] 12:00:00 AM Hospital EDT [id number] total 12/29/2019 [facility] 12:00:00 AM Hospital EDT Hepatitis c revrs trnscrpj 12/29/2019 [facility] 12:00:00 AM Hospital EDT Alpha-fetoprotein serum 12/29/2019 [facility] 12:00:00 AM Hospital EDT Assay of magnesium 12/29/2019 [facility] 12:00:00 AM Hospital EDT Hepatic function panel 12/29/2019 [place] 12:00:00 AM Hospital EDT Iron binding test 12/29/2019 [place] 12:00:00 AM Hospital EDT Assay of iron 12/29/2019 [place] 12:00:00 AM Hospital EDT Hepatitis a antibody 12/29/2019 [place] 12:00:00 AM Hospital EDT Hepatitis a igm antibody 12/29/2019 [facility] 12:00:00 AM Hospital EDT Hepatitis b surface ag ia 12/29/2019 [facility] 12:00:00 AM Hospital EDT Hep b surface antibody 12/29/2019 [place] 12:00:00 AM Hospital EDT Hep b core antibody total 12/29/2019 [facility] 12:00:00 AM Hospital EDT Assay of ferritin 12/29/2019 [place] 12:00:00 AM Hospital EDT Metabolic panel total ca 12/29/2019 [facility] 12:00:00 AM Hospital EDT Prothrombin time 12/29/2019 [place] 12:00:00 AM Hospital EDT Complete cbc w/auto diff wbc 12/29/2019 [place] 12:00:00 AM Hospital EDT [id number] total 12/29/2019 [facility] 12:00:00 AM Hospital EDT Hepatitis c revrs trnscrpj 12/29/2019 [facility] 12:00:00 AM Hospital EDT Alpha-fetoprotein serum 12/29/2019 [facility] 12:00:00 AM Hospital EDT Assay of magnesium 12/29/2019 [facility] 12:00:00 AM Hospital EDT Hepatic function panel 12/29/2019 [place] 12:00:00 AM Hospital EDT Iron binding test 12/29/2019 [place] 12:00:00 AM Hospital EDT Assay of iron 12/29/2019 [place] 12:00:00 AM Hospital EDT Hepatitis a antibody 12/29/2019 [place] 12:00:00 AM Hospital EDT Hepatitis a igm antibody 12/29/2019 [facility] 12:00:00 AM Hospital EDT Hepatitis b surface ag ia 12/29/2019 [facility] 12:00:00 AM [facility] EDT Hep b surface antibody 12/29/2019 [place] 12:00:00 AM [facility] EDT Hep b core antibody total 12/29/2019 [facility] 12:00:00 AM [facility] EDT Assay of ferritin 12/29/2019 [place] 12:[facility] EDT Metabolic panel total ca 12/29/2019 [facility] 12:00:00 AM [facility] EDT Prothrombin time 12/29/2019 [place] 12:[facility] EDT Complete cbc w/auto diff wbc 12/29/2019 [place] 12:00:00 AM [facility] EDT [id number] total 12/29/2019 [facility] 12:00:00 AM [facility] EDT Physical therapy procedure 12/21/2019 [facility] (regime/therapy) 12:00:00 AM Hospital EDT Electrocardiographic procedure 12/21/2019 [place] (procedure) 12:00:00 AM Hospital EDT Hopd covid-19 spec collect 12/21/2019 [facility] 12:00:00 AM [facility] EDT Gait training therapy 12/21/2019 [place] 12:00:00 AM [facility] EDT Pt eval low complex 20 min 12/21/2019 [facility] 12:00:00 AM [facility] EDT Electrocardiogram tracing 12/21/2019 [facility] 12:00:00 AM [facility] EDT Assay of troponin qual 12/21/2019 [place] 12:00:00 AM [facility] EDT Reagent strip/blood glucose 12/21/2019 [place] 12:00:00 AM [facility] EDT Drug test prsmv chem anlyzr 12/21/2019 [place] 12:00:00 AM [facility] EDT Comprehen metabolic panel 12/21/2019 [facility] 12:00:00 AM [facility] EDT Drug assay clozapine 12/21/2019 [facility] 12:00:00 AM [facility] EDT Mr-staph dna amp probe 12/21/2019 [place] 12:00:00 AM [facility] EDT SARS-COV-2 COVID-19 AMP PRB 12/21/2019 [place] 12:00:00 AM [facility] EDT Prothrombin time 12/21/2019 [place] [facility] 12:00:00 AM [facility] EDT Complete cbc automated 12/21/2019 [place] 12:00:00 AM [facility] EDT Thromboplastin time partial 12/21/2019 [place] 12:00:00 AM [facility] EDT Urinalysis auto w/o scope 12/21/2019 [facility] 12:00:00 AM [facility] EDT Hydrate iv infusion add-on 12/21/2019 [facility] 12:00:00 AM [facility] EDT Ther/proph/diag inj iv push 12/21/2019 [place] 12:00:00 AM Hospital EDT Emergency dept visit 12/21/2019 [facility] 12:00:00 AM [facility] EDT Physical therapy procedure 12/21/[address] [facility] (regime/therapy) 12:00:00 AM Hospital EDT Electrocardiographic procedure 12/21/2019 [place] (procedure) 12:00:00 AM Hospital EDT Hopd covid-19 spec collect 12/21/2019 [facility] 12:00:00 AM Hospital EDT Gait training therapy 12/21/2019 [place] 12:00:00 AM Hospital EDT Pt eval low complex 20 min 12/21/2019 [facility] 12:00:00 AM Hospital EDT Electrocardiogram tracing 12/21/2019 [facility] 12:00:00 AM Hospital EDT Assay of troponin qual 12/21/2019 [place] 12:00:00 AM Hospital EDT Reagent strip/blood glucose 12/21/2019 [place] 12:00:00 AM Hospital EDT Drug test prsmv chem anlyzr 12/21/2019 [place] 12:00:00 AM Hospital EDT Comprehen metabolic panel 12/21/2019 [facility] 12:00:00 AM Hospital EDT Drug assay clozapine 12/21/2019 [place] 12:00:00 AM [facility] EDT Mr-staph dna amp probe 12/21/2019 [place] 12:00:00 AM Hospital EDT SARS-COV-2 COVID-19 AMP PRB 12/21/2019 [place] 12:00:00 AM Hospital EDT Prothrombin time 12/21/2019 [facility] 12:00:00 AM Hospital EDT Complete cbc automated 12/21/2019 [place] 12:00:00 AM Hospital EDT Thromboplastin time partial 12/21/2019 [place] 12:00:00 AM Hospital EDT Urinalysis auto w/o scope 12/21/2019 [facility] 12:00:00 AM Hospital EDT Hydrate iv infusion add-on 12/21/2019 [facility] 12:00:00 AM Hospital EDT Ther/proph/diag inj iv push 12/21/2019 [place] 12:00:00 AM Hospital EDT Emergency dept visit 12/21/2019 [facility] 12:00:00 AM Hospital EDT Physical therapy procedure 12/21/2019 [facility] (regime/therapy) 12:00:00 AM Hospital EDT Electrocardiographic procedure 12/21/2019 [place] (procedure) 12:00:00 AM Hospital EDT Hopd covid-19 spec collect 12/21/2019 [facility] 12:00:00 AM Hospital EDT Gait training therapy 12/21/2019 [place] 12:00:00 AM Hospital EDT Pt eval low complex 20 min 12/21/2019 [facility] 12:00:00 AM Hospital EDT Electrocardiogram tracing 12/21/2019 [facility] 12:00:00 AM Hospital EDT Assay of troponin qual 12/21/2019 [place] 12:00:00 AM Hospital EDT Reagent strip/blood glucose 12/21/2019 [place] 12:00:00 AM Hospital EDT Drug test prsmv chem anlyzr 12/21/2019 [place] 12:00:00 AM Hospital EDT Comprehen metabolic panel 12/21/2019 [facility] 12:00:00 AM Hospital EDT Drug assay clozapine 12/21/2019 [facility] 12:00:00 AM Hospital EDT Mr-staph dna amp probe 12/21/2019 [place] 12:00:00 AM Hospital EDT SARS-COV-2 COVID-19 AMP PRB 12/21/2019 [place] 12:00:00 AM Hospital EDT Prothrombin time 12/21/2019 [facility] 12:00:00 AM Hospital EDT Complete cbc automated 12/21/2019 [place] 12:00:00 AM Hospital EDT Thromboplastin time partial 12/21/2019 [place] 12:00:00 AM Hospital EDT Urinalysis auto w/o scope 12/21/2019 [facility] 12:00:00 AM Hospital EDT Hydrate iv infusion add-on 12/21/2019 [facility] 12:00:00 AM Hospital EDT Ther/proph/diag inj iv push 12/21/2019 [place] 12:00:00 AM Hospital EDT Emergency dept visit 12/21/2019 [place] [facility] 12:00:00 AM [facility] EDT Physical therapy procedure 12/21/2019 [facility] (regime/therapy) 12:00:00 AM Hospital EDT Electrocardiographic procedure 12/21/2019 [place] (procedure) 12:00:00 AM Hospital EDT Physical therapy procedure 12/17/2019 [facility] (regime/therapy) 12:00:00 AM Hospital EDT Physical therapy procedure 12/17/2019 [facility] (regime/therapy) 12:00:00 AM Hospital EDT Physical therapy procedure 12/17/2019 [facility] (regime/therapy) 12:00:00 AM Hospital EDT Physical therapy procedure 12/17/2019 [facility] (regime/therapy) 12:00:00 AM Hospital EDT Physical therapy procedure 12/17/2019 [facility] (regime/therapy) 12:00:00 AM Hospital EDT Physical therapy procedure 12/17/2019 [facility] (regime/therapy) 12:00:00 AM Hospital EDT Physical therapy procedure 12/17/2019 [facility] (regime/therapy) 12:00:00 AM Hospital EDT Physical therapy procedure 12/17/2019 [facility] (regime/therapy) 12:00:00 AM Hospital EDT Physical therapy procedure 12/17/2019 [facility] (regime/therapy) 12:00:00 AM Hospital EDT Physical therapy procedure 12/17/2019 [facility] (regime/therapy) 12:00:00 AM Hospital EDT Plain chest X-ray (procedure) 12/15/2019 [place] 12:00:00 AM Hospital EDT Computed tomography of 12/15/2019 [place] cervical spine without 12:00:00 AM [facility] contrast EDT Computed tomography of head 12/15/2019 [place] without contrast 12:00:00 AM Hospital EDT Electrocardiographic procedure 12/15/2019 [place] (procedure) 12:00:00 AM Hospital EDT Plain chest X-ray (procedure) 12/15/2019 [place] 12:00:00 AM Hospital EDT Computed tomography of 12/15/2019 [place] cervical spine without 12:00:00 AM [facility] contrast EDT Computed tomography of head 12/15/2019 [place] without contrast 12:00:00 AM Hospital EDT Electrocardiographic procedure 12/15/2019 [place] (procedure) 12:00:00 AM Hospital EDT Plain chest X-ray (procedure) 12/15/2019 [place] 12:00:00 AM Hospital EDT Computed tomography of 12/15/2019 [place] cervical spine without 12:00:00 AM [facility] contrast EDT Computed tomography of head 12/15/2019 [place] without contrast 12:00:00 AM Hospital EDT Electrocardiographic procedure 12/15/2019 [place] (procedure) 12:00:00 AM Hospital EDT Plain chest X-ray (procedure) 12/15/2019 [place] 12:00:00 AM Hospital EDT Computed tomography of 12/15/2019 [place] cervical spine without 12:00:00 AM [facility] contrast EDT Computed tomography of head 12/15/2019 [place] without contrast 12:00:00 AM Hospital EDT Electrocardiographic procedure 12/15/2019 [place] (procedure) 12:00:00 AM Hospital EDT Plain chest X-ray (procedure) 12/15/2019 [place] 12:00:00 AM Hospital EDT Computed tomography of 12/15/2019 [place] cervical spine without 12:00:00 AM [facility] contrast EDT Computed tomography of head 12/15/2019 [place] without contrast 12:00:00 AM Hospital EDT Electrocardiographic procedure 12/15/2019 [place] (procedure) 12:00:00 AM Hospital EDT Physical therapy procedure 12/03/2019 [facility] (regime/therapy) 12:00:00 AM Hospital EDT Physical therapy procedure 12/03/2019 [facility] (regime/therapy) 12:00:00 AM Hospital EDT Physical therapy procedure 12/03/2019 [facility] (regime/therapy) 12:00:00 AM Hospital EDT Electrocardiographic procedure 11/30/2019 [place] (procedure) 12:00:00 AM Hospital EDT Computed tomography of head 11/30/2019 [place] without contrast 12:00:00 AM Hospital EDT Electrocardiographic procedure 11/30/2019 [place] (procedure) 12:00:00 AM Hospital EDT Computed tomography of head 11/30/2019 [place] without contrast 12:00:00 AM Hospital EDT Electrocardiographic procedure 11/30/2019 [place] (procedure) 12:00:00 AM Hospital EDT Computed tomography of head 11/30/2019 [place] without contrast 12:00:00 AM Hospital EDT Ultrasonography of abdomen 11/28/2019 [facility] (procedure) 12:00:00 AM Hospital EDT Ultrasonography of abdomen 11/28/2019 [facility] (procedure) 12:00:00 AM Hospital EDT Ultrasonography of abdomen 11/28/2019 [facility] (procedure) 12:00:00 AM Hospital EDT Plain chest X-ray (procedure) 11/25/2019 [place] 12:00:00 AM [facility] EDT Plain chest X-ray (procedure) 11/25/2019 [place] 12:00:00 AM Hospital EDT Plain chest X-ray (procedure) 11/25/2019 [place] 12:00:00 AM Hospital EDT Physical therapy procedure 11/22/2019 [facility] (regime/therapy) 12:00:00 AM Hospital EDT Physical therapy procedure 11/22/2019 [facility] (regime/therapy) 12:00:00 AM Hospital EDT Physical therapy procedure 11/22/2019 [facility] (regime/therapy) 12:00:00 AM Hospital EDT Plain chest X-ray (procedure) 11/20/2019 [place] 12:00:00 AM [facility] EDT Electrocardiographic procedure 11/20/2019 [place] (procedure) 12:00:00 AM Hospital EDT Plain chest X-ray (procedure) 11/20/2019 [place] 12:00:00 AM Hospital EDT Electrocardiographic procedure 11/20/2019 [place] (procedure) 12:00:00 AM Hospital EDT Plain chest X-ray (procedure) 11/20/2019 [place] 12:00:00 AM Hospital EDT Electrocardiographic procedure 11/20/2019 [place] (procedure) 12:00:00 AM Hospital EDT Computed tomography of head 10/26/2019 [place] without contrast 12:00:00 AM Hospital EDT Electrocardiographic procedure 10/26/2019 [place] (procedure) 12:00:00 AM Hospital EDT Physical therapy procedure 06/19/2019 [facility] (regime/therapy) 12:00:00 AM Hospital EST Smoking cessation education 06/18/2019 [place] (procedure) 12:00:00 AM Hospital EST Electrocardiographic procedure 06/17/2019 [place] (procedure) 12:00:00 AM Hospital EST Diagnostic radiography of 06/17/2019 [facility] chest, combined 12:00:00 AM Hospital posteroanterior and lateral EST (procedure) Electrocardiographic procedure 05/25/2019 [place] (procedure) 12:00:00 AM Hospital EST Plain chest X-ray (procedure) 05/25/2019 [place] 12:00:00 AM Hospital EST Computed tomography of head 05/25/2019 [place] without contrast 12:00:00 AM Hospital EST Electrocardiographic procedure 05/25/2019 [place] (procedure) 12:00:00 AM Hospital EST Plain chest X-ray (procedure) 05/25/2019 [place] 12:00:00 AM Hospital EST Computed tomography of head 05/25/2019 [place] without contrast 12:00:00 AM Hospital EST Electrocardiographic procedure 05/21/2019 [place] (procedure) 12:00:00 AM Hospital EST Electrocardiographic procedure 05/21/2019 [place] (procedure) 12:00:00 AM Hospital EST Electrocardiographic procedure 05/21/2019 [place] (procedure) 12:00:00 AM Hospital EST Electrocardiographic procedure 05/21/2019 [place] (procedure) 12:00:00 AM Hospital EST Echocardiography (procedure) 05/20/2019 [place] 12:00:00 AM [facility] EST Electrocardiographic procedure 05/20/2019 [place] (procedure) 12:00:00 AM Hospital EST Echocardiography (procedure) 05/20/2019 [place] 12:00:00 AM [facility] EST Electrocardiographic procedure 05/20/2019 [place] (procedure) 12:00:00 AM Hospital EST Electrocardiographic procedure 05/19/2019 [place] (procedure) 12:00:00 AM Hospital EST Plain chest X-ray (procedure) 05/19/2019 [place] 12:00:00 AM Hospital EST Computed tomography of head 05/19/2019 [place] without contrast 12:00:00 AM Hospital EST Electrocardiographic procedure 05/19/2019 [place] (procedure) 12:00:00 AM Hospital EST Plain chest X-ray (procedure) 05/19/2019 [place] 12:00:00 AM Hospital EST Computed tomography of head 05/19/2019 [place] without contrast 12:00:00 AM Hospital EST Electrocardiographic procedure 05/17/2019 [place] (procedure) 12:00:00 AM Hospital EST INJECTION, THIAMINE HCL, 100 05/17/2019 [place] [facility] 12:00:00 AM Hospital EST NORMAL SALINE SOLUTION INFUS 05/17/2019 [place] 12:00:00 AM Hospital EST INJECTION, LORAZEPAM, 2 MG 05/17/2019 [facility] 12:00:00 AM [facility] EST Electrocardiogram tracing 05/17/2019 [facility] 12:00:00 AM [facility] EST Assay of troponin qual 05/17/2019 [place] 12:00:00 AM Hospital EST Assay of phosphorus 05/17/[address] [place] 12:[facility] AM [facility] EST Assay of blood osmolality 05/17/2019 [facility] 12:00:00 AM [facility] EST Assay of magnesium 05/17/2019 [facility] [place] 12:00:[facility] AM [facility] EST Assay of lactic acid 05/17/2019 [place] 12:00:[facility] AM [facility] EST Glycosylated hemoglobin test 05/17/2019 [place] 12:00:00 AM Hospital EST Reagent strip/blood glucose 05/17/2019 [place] 12:00:00 AM [facility] EST Electrolyte panel 05/17/2019 [place] 12:[facility] AM [facility] EST Drug test prsmv chem anlyzr 05/17/2019 [place] 12:00:00 AM [facility] EST Comprehen metabolic panel 05/17/2019 [facility] 12:00:00 AM [facility] EST Drug test prsmv chem anlyzr 05/17/2019 [place] 12:00:00 AM [facility] EST Metabolic panel total ca 05/17/2019 [facility] 12:00:00 AM [facility] EST Complete cbc w/auto diff wbc 05/17/2019 [place] 12:00:00 AM [facility] EST Urinalysis auto w/scope 05/17/2019 [facility] 12:00:00 AM [facility] EST Hydrate iv infusion add-on 05/17/2019 [facility] 12:00:00 AM [facility] EST Tx/pro/dx inj new drug addon 05/17/2019 [place] 12:00:00 AM [facility] EST Tx/pro/dx inj same drug public area supervisor 05/17/2019 [place] 12:00:00 AM Hospital EST Ther/proph/diag inj iv push 05/17/2019 [place] 12:00:00 AM Hospital EST Emergency dept visit 05/17/2019 [place] 12:00:00 AM [facility] EST Electrocardiographic procedure 05/17/2019 [place] (procedure) 12:00:00 AM Hospital EST INJECTION, THIAMINE HCL, 100 05/17/2019 [place] [facility] 12:00:00 AM [facility] EST NORMAL SALINE SOLUTION INFUS 05/17/2019 [place] 12:00:00 AM Hospital EST INJECTION, LORAZEPAM, 2 MG 05/17/2019 [facility] 12:00:00 AM [facility] EST Electrocardiogram tracing 05/17/2019 [facility] 12:00:00 AM Hospital EST Assay of troponin qual 05/17/2019 [place] 12:00:00 AM Hospital EST Assay of phosphorus 05/17/[address] [place] 12:00:[facility] AM [facility] EST Assay of blood osmolality 05/17/2019 [facility] 12:00:00 AM Hospital EST Assay of magnesium 05/17/2019 [place] [facility] 12:00:00 AM [facility] EST Assay of lactic acid 05/17/2019 [place] 12:00:00 AM [facility] EST Glycosylated hemoglobin test 05/17/2019 [place] 12:00:00 AM Hospital EST Reagent strip/blood glucose 05/17/2019 [place] 12:00:00 AM Hospital EST Electrolyte panel 05/17/2019 [place] 12:[facility] AM [facility] EST Drug test prsmv chem anlyzr 05/17/2019 [place] 12:00:00 AM Hospital EST Comprehen metabolic panel 05/17/2019 [facility] 12:00:00 AM [facility] EST Drug test prsmv chem anlyzr 05/17/2019 [place] 12:00:00 AM Hospital EST Metabolic panel total ca 05/17/2019 [facility] 12:00:00 AM [facility] EST Complete cbc w/auto diff wbc 05/17/2019 [place] 12:00:00 AM [facility] EST Urinalysis auto w/scope 05/17/2019 [facility] 12:00:00 AM [facility] EST Hydrate iv infusion add-on 05/17/2019 [facility] 12:00:00 AM [facility] EST Tx/pro/dx inj new drug addon 05/17/2019 [place] 12:00:00 AM Hospital EST Tx/pro/dx inj same drug public area supervisor 05/17/2019 [place] 12:00:00 AM Hospital EST Ther/proph/diag inj iv push 05/17/2019 [place] 12:00:00 AM Hospital EST Emergency dept visit 05/17/2019 [place] 12:00:00 AM [facility] EST Electrocardiographic procedure 05/17/2019 [place] (procedure) 12:00:00 AM Hospital EST Reagent strip/blood glucose 04/29/2019 [place] 12:00:00 AM Hospital EST Metabolic panel total ca 04/29/2019 [facility] 12:00:00 AM [facility] EST Mr-staph dna amp probe 04/29/2019 [place] 12:00:00 AM Hospital EST Complete cbc automated 04/29/2019 [place] 12:00:00 AM Hospital EST Emergency dept visit 04/29/2019 [place] 12:00:00 AM [facility] EST Reagent strip/blood glucose 04/29/2019 [place] 12:00:00 AM Hospital EST Metabolic panel total ca 04/29/2019 [facility] 12:00:00 AM Hospital EST Mr-staph dna amp probe 04/29/2019 [place] 12:00:00 AM Hospital EST Complete cbc automated 04/29/2019 [place] 12:00:00 AM Hospital EST Emergency dept visit 04/29/2019 [place] 12:00:00 AM [facility] EST Reagent strip/blood glucose 04/29/2019 [place] 12:00:00 AM Hospital EST Metabolic panel total ca 04/29/2019 [facility] 12:00:00 AM Hospital EST Mr-staph dna amp probe 04/29/2019 [place] 12:00:00 AM [facility] EST Complete cbc automated 04/29/2019 [place] 12:00:00 AM Hospital EST Emergency dept visit 04/29/2019 [place] 12:00:[facility] AM [facility] EST METOCLOPRAMIDE HCL INJECTION 04/16/2019 [place] 12:00:00 AM Hospital EST Tx/pro/dx inj new drug addon 04/16/2019 [place] 12:00:00 AM Hospital EST Ther/proph/diag inj iv push 04/16/2019 [place] 12:00:00 AM Hospital EST Reagent strip/blood glucose 04/16/2019 [place] 12:00:00 AM Hospital EST Metabolic panel total ca 04/16/2019 [facility] 12:00:00 AM [facility] EST Mr-staph dna amp probe 04/16/2019 [place] 12:00:00 AM [facility] EST Complete cbc w/auto diff wbc 04/16/2019 [place] 12:00:00 AM [facility] EST Urinalysis auto w/o scope 04/16/2019 [facility] 12:00:00 AM [facility] EST Emergency dept visit 04/16/2019 [place] 12:00:00 AM [facility] EST Diagnostic radiography of 04/06/2019 [facility] chest, combined 12:00:00 AM Hospital posteroanterior and lateral EST (procedure) Emergency dept visit 04/06/2019 [place] 12:00:00 AM [facility] EST Diagnostic radiography of 04/06/2019 [facility] chest, combined 12:00:00 AM Hospital posteroanterior and lateral EST (procedure) Emergency dept visit 04/06/2019 [place] 12:00:00 AM [facility] EST Diagnostic radiography of 04/06/2019 [facility] chest, combined 12:00:00 AM Hospital posteroanterior and lateral EST (procedure) Reagent strip/blood glucose 03/09/2019 [place] 12:00:00 AM [facility] EST Drug test prsmv chem anlyzr 03/09/2019 [place] 12:00:00 AM Hospital EST Comprehen metabolic panel 03/09/2019 [facility] 12:00:00 AM [facility] EST Drug test prsmv chem anlyzr 03/09/2019 [place] 12:00:00 AM Hospital EST Mr-staph dna amp probe 03/09/2019 [place] 12:00:00 AM [facility] EST Complete cbc w/auto diff wbc 03/09/2019 [place] 12:00:00 AM [facility] EST Urinalysis auto w/o scope 03/09/2019 [facility] 12:00:00 AM Hospital EST Emergency dept visit 03/09/2019 [place] 12:00:00 AM [facility] EST Electrocardiographic procedure 03/02/2019 [place] (procedure) 12:00:00 AM Hospital EST Electrocardiographic procedure 03/02/2019 [place] (procedure) 12:00:00 AM Hospital EST Computed tomography of head 03/01/2019 [place] without contrast 12:00:00 AM Hospital EST Electrocardiographic procedure 03/01/2019 [place] (procedure) 12:00:00 AM Hospital EST Plain chest X-ray (procedure) 03/01/2019 [place] 12:00:00 AM Hospital EST Computed tomography of head 03/01/2019 [place] without contrast 12:00:00 AM Hospital EST Electrocardiographic procedure 03/01/2019 [place] (procedure) 12:00:00 AM Hospital EST Plain chest X-ray (procedure) 03/01/2019 [place] 12:00:00 AM Hospital EST Plain chest X-ray (procedure) 02/14/2019 [place] 12:00:00 AM Hospital EDT Computed tomography of head 02/14/2019 [place] without contrast 12:00:00 AM Hospital EDT Electrocardiographic procedure 02/14/2019 [place] (procedure) 12:00:00 AM Hospital EDT INSULIN INJECTION 02/14/2019 [place] 12:[facility] AM [facility] EDT INSULIN INJECTION 02/14/2019 [place] 12:00:[address] head/brain w/o dye 02/14/2019 [place] 12:00:00 AM Hospital EDT X-ray exam chest 1 view 02/14/2019 [facility] 12:00:00 AM [facility] EDT Electrocardiogram tracing 02/14/2019 [facility] 12:00:00 AM Hospital EDT Assay of lipase 02/14/2019 [place] 12:00:00 AM Hospital EDT Reagent strip/blood glucose 02/14/2019 [place] 12:00:00 AM Hospital EDT Drug test prsmv chem anlyzr 02/14/2019 [place] 12:00:00 AM Hospital EDT Comprehen metabolic panel 02/14/2019 [facility] 12:00:00 AM Hospital EDT Drug test prsmv chem anlyzr 02/14/2019 [place] 12:00:00 AM Hospital EDT Metabolic panel total ca 02/14/2019 [facility] 12:00:00 AM [facility] EDT Assay of ammonia 02/14/2019 [place] 12:00:00 AM [facility] EDT Mr-staph dna amp probe 02/14/2019 [place] 12:00:00 AM Hospital EDT Complete cbc automated 02/14/2019 [place] 12:00:00 AM Hospital EDT Urinalysis auto w/o scope 02/14/2019 [facility] 12:00:00 AM [facility] EDT Hydrate iv infusion add-on 02/14/2019 [facility] 12:00:00 AM [facility] EDT Hydrate iv infusion add-on 02/14/2019 [facility] 12:00:00 AM [facility] EDT Tx/pro/dx inj same drug public area supervisor 02/14/2019 [place] 12:00:00 AM [facility] EDT Tx/pro/dx inj same drug public area supervisor 02/14/2019 [place] 12:00:00 AM Hospital EDT Ther/proph/diag inj iv push 02/14/2019 [place] 12:00:00 AM Hospital EDT Emergency dept visit 02/14/2019 [facility] 12:00:00 AM [facility] EDT Plain chest X-ray (procedure) 02/14/2019 [place] 12:00:00 AM Hospital EDT Computed tomography of head 02/14/2019 [place] without contrast 12:00:00 AM Hospital EDT Electrocardiographic procedure 02/14/2019 [place] (procedure) 12:00:00 AM Hospital EDT INSULIN INJECTION 02/14/2019 [place] 12:00:00 AM [facility] EDT INSULIN INJECTION 02/14/2019 [place] 12:00:[address] head/brain w/o dye 02/14/2019 [place] 12:00:00 AM Hospital EDT X-ray exam chest 1 view 02/14/2019 [facility] 12:00:00 AM [facility] EDT Electrocardiogram tracing 02/14/2019 [facility] 12:00:00 AM Hospital EDT Assay of lipase 02/14/2019 [place] 12:00:00 AM Hospital EDT Reagent strip/blood glucose 02/14/2019 [place] 12:00:00 AM Hospital EDT Drug test prsmv chem anlyzr 02/14/2019 [place] 12:00:00 AM Hospital EDT Comprehen metabolic panel 02/14/2019 [facility] 12:00:00 AM Hospital EDT Drug test prsmv chem anlyzr 02/14/2019 [place] 12:00:00 AM Hospital EDT Metabolic panel total ca 02/14/2019 [facility] 12:00:00 AM Hospital EDT Assay of ammonia 02/14/2019 [facility] 12:00:00 AM Hospital EDT Mr-staph dna amp probe 02/14/2019 [place] 12:00:00 AM Hospital EDT Complete cbc automated 02/14/2019 [place] 12:00:00 AM Hospital EDT Urinalysis auto w/o scope 02/14/2019 [facility] 12:00:00 AM Hospital EDT Hydrate iv infusion add-on 02/14/2019 [facility] 12:00:00 AM Hospital EDT Hydrate iv infusion add-on 02/14/2019 [facility] 12:00:00 AM Hospital EDT Tx/pro/dx inj same drug public area supervisor 02/14/2019 [place] 12:00:00 AM Hospital EDT Tx/pro/dx inj same drug public area supervisor 02/14/2019 [place] 12:00:00 AM Hospital EDT Ther/proph/diag inj iv push 02/14/2019 [place] 12:00:00 AM Hospital EDT Emergency dept visit 02/14/2019 [facility] 12:00:00 AM Hospital EDT Plain chest X-ray (procedure) 02/14/2019 [place] 12:00:00 AM Hospital EDT Computed tomography of head 02/14/2019 [place] without contrast 12:00:00 AM Hospital EDT Electrocardiographic procedure 02/14/2019 [place] (procedure) 12:00:00 AM Hospital EDT Results ID Date Data Source [id number] 01/21/2020 04:34:00 PM EDT [facility] NOTIFICATION AND READ BACK OF CRITICAL R ESULTS TO NADIR GAGNONAIRCRAFT NAVIGATOR AT 1624 ON 01/18/20 BY NAGI NAVARRO.REPORTED CRI TICAL VALUES SHOULD BE INTERPRETED WITHIN CLINICAL CONTEXT. Name Value Range Interpretation Description Data Sup porting Code Source(s) Document(s ) Lactate 3.5 [place] [Moles/volum mmol/L Hospital e] in Serum or Plasma ID Date Data Source [id number] 01/21/2020 11:27:[address] [facility] Informatics Analyst:YOSI JUAREZ Name Value Range Interpretation Description Data Sup porting Code Source(s) Document(s ) Glucose 289 mg/dL [place] [Mass/volume] Hospital in Capillary blood by Glucometer ID Date Data Source [id number] 01/21/2020 08:54:[address] [facility] Name Value Range Interpretation Description Data Sup porting Code Source(s) Document(s ) Phosphate 2.6 mg/dL [place] [Mass/volume[facility] in Serum or Plasma ID Date Data Source [id number] 01/21/2020 08:54:[address] [facility] Name Value Range Interpretation Description Data Sup porting Code Source(s) Document(s ) Magnesium 1.8 mg/dL [place] [Mass/volume[facility] in Serum or Plasma ID Date Data Source [id number] 01/21/2020 08:54:[address] [facility] Name Value Range Interpretation Description Data Sup porting Code Source(s) Document(s ) Aspartate 52 U/L White aminotransferase [facility] [Enzymatic Hospital activity/volume] in Serum or Plasma ID Date Data Source [id number] 01/21/2020 08:54:[address] [facility] Name Value Range Interpretation Description Data Sup porting Code Source(s) Document(s ) Alanine 28 U/L White aminotransferase [facility] [Enzymatic Hospital activity/volume] in Serum or Plasma ID Date Data Source [id number] 01/21/2020 08:54:[address] [facility] Name Value Range Interpretation Description Data Sup porting Code Source(s) Document(s ) Alkaline 76 U/L [place] phosphatase [facility] [Enzymatic activity/volume ] in Serum or Plasma ID Date Data Source [id number] 01/21/2020 08:54:00 AM EDT [facility] Name Value Range Interpretation Description Data Sup porting Code Source(s) Document(s ) Bilirubin.t 1.5 mg/dL [facility] [Mass/volum e] in Serum or Plasma ID Date Data Source [id number] 01/21/2020 08:54:00 AM EDT [facility] Name Value Range Interpretation Code Description Data Bryanna rce(s) Supporting Document(s ) [facility] Serum or Plasma ID Date Data Source [id number] 01/21/2020 08:54:00 AM EDT [facility] Name Value Range Interpretation Description Data Sup porting Code Source(s) Document(s ) Albumin 2.6 g/dL [place] [Mass/volume Hospital ] in Serum or Plasma ID Date Data Source [id number] 01/21/2020 08:54:00 AM EDT [facility] Name Value Range Interpretation Description Data Sup porting Code Source(s) Document(s ) Protein 5.4 g/dL [place] [Mass/volume Hospital ] in Serum or Plasma ID Date Data Source [id number] 01/21/2020 08:54:00 AM EDT [facility] Name Value Range Interpretation Description Data Sup porting Code Source(s) Document(s ) Calcium 8.5 mg/dL [place] [Mass/volume Hospital ] in Serum or Plasma ID Date Data Source [id number] 01/21/2020 08:54:00 AM EDT [facility] Name Value Range Interpretation Code Description Data Bryanna rce(s) Supporting Document(s ) Urea 13.3 [place] nitrogen/[facility] atinine [Mass Ratio] in Serum or Plasma ID Date Data Source [id number] 01/21/2020 08:54:00 AM EDT [facility] Name Value Range Interpretation Description Data Sup porting Code Source(s) Document(s ) Creatinine 0.6 mg/dL [place] [Mass/volume] [facility] in Serum or Plasma ID Date Data Source [id number] 01/21/2020 08:54:00 AM EDT [facility] Name Value Range Interpretation Description Data Sup porting Code Source(s) Document(s ) Urea nitrogen 8 mg/dL [place] [Mass/volume] [facility] in Serum or Plasma ID Date Data Source [id number] 01/21/2020 08:54:00 AM EDT [facility] Value Range Interpretation Code Description Data Bryanna rce(s) Supporting Document(s ) Anion gap in 7 [place] Serum or [facility] Plasma ID Date Data Source [id number] 01/21/2020 08:54:00 AM EDT [facility] Value Range Interpretation Description Data Sup porting Code Source(s) Document(s ) Carbon 31 mmol/L [place] dioxide, Hospital total [Moles/volu me] in Serum or Plasma ID Date Data Source [id number] 01/21/2020 08:54:00 AM EDT [facility] Value Range Interpretation Description Data Sup porting Code Source(s) Document(s ) Chloride 107 [place] [Moles/volum mmol/L Hospital e] in Serum or Plasma ID Date Data Source [id number] 01/21/2020 08:54:00 AM EDT [facility] Value Range Interpretation Description Data Sup porting Code Source(s) Document(s ) Potassium 3.9 [place] [Moles/volume mmol/L Hospital ] in Serum or Plasma ID Date Data Source [id number] 01/21/2020 08:54:00 AM EDT [facility] Value Range Interpretation Description Data Sup porting Code Source(s) Document(s ) Sodium 141 mmol/L [place] [Moles/volu Hospital nv] in Serum or Plasma ID Date Data Source [id number] 01/21/2020 08:54:00 AM EDT [facility] Value Range Interpretation Description Data Sup porting Code Source(s) Document(s ) Glucose 126 mg/dL [place] [Mass/volume Hospital ] in Serum or Plasma ID Date Data Source [id number] 01/21/2020 08:54:00 AM EDT [facility] Value Range Interpretation Description Data Sup porting Code Source(s) Document(s ) Manual MANUAL [place] differential Hospital performed [Presence] in Blood ID Date Data Source [id number] 01/21/2020 08:54:00 AM EDT [facility] Value Range Interpretation Code Description Data Bryanna rce(s) Supporting Document(s ) Cells 100 [facility] Total [#] in Blood ID Date Data Source [id number] 01/21/2020 08:54:00 AM EDT [facility] Value Range Interpretation Code Description Data Supporting Source(s) Document(s ) PLATELET NORMAL [facility] Hospital ID Date Data Source [id number] 01/21/2020 08:54:00 AM EDT [facility] Value Range Interpretation Code Description Data Supporting Source(s) Document(s ) POLYCHROMASIA 1+ [facility] ID Date Data Source [id number] 01/21/2020 08:54:00 AM EDT [facility] Value Range Interpretation Code Description Data Bryanna rce(s) Supporting Document(s ) HYPOCHROMIA 1+ [facility] ID Date Data Source [id number] 01/21/2020 08:54:00 AM EDT [facility] Name Value Range Interpretation Description Data Sup porting Code Source(s) Document(s ) Eosinophils 0.30 [place] [#/volume] in 10*3/uL Hospital Blood by Manual count ID Date Data Source [id number] 01/21/2020 08:54:00 AM EDT [facility] Name Value Range Interpretation Description Data Sup porting Code Source(s) Document(s ) Monocytes 0.12 [place] [#/volume] in 10*3/uL Hospital Blood by Manual count ID Date Data Source [id number] 01/21/2020 08:54:00 AM EDT [facility] Name Value Range Interpretation Description Data Sup porting Code Source(s) Document(s ) Lymphocytes 1.77 [place] [#/volume] in 10*3/uL Hospital Blood by Manual count ID Date Data Source [id number] 01/21/2020 08:54:00 AM EDT [facility] Name Value Range Interpretation Description Data Sup porting Code Source(s) Document(s ) Neutrophils 0.81 [place] [#/volume] in 10*3/uL Hospital Blood by Manual count ID Date Data Source [id number] 01/21/2020 08:54:00 AM EDT [facility] Name Value Range Interpretation Description Data Sup porting Code Source(s) Document(s ) Eosinophils/100 10 % [place] leukocytes in Hospital Blood by Manual count ID Date Data Source [id number] 01/21/2020 08:54:00 AM EDT [facility] Name Value Range Interpretation Description Data Sup porting Code Source(s) Document(s ) Monocytes/100 4 % [place] leukocytes in Hospital Blood by Manual count ID Date Data Source [id number] 01/21/2020 08:54:00 AM EDT [facility] Name Value Range Interpretation Description Data Sup porting Code Source(s) Document(s ) Lymphocytes/100 59 % [place] leukocytes in Hospital Blood by Manual count ID Date Data Source [id number] 01/21/2020 08:54:00 AM EDT [facility] Value Range Interpretation Description Data Sup porting Code Source(s) Document(s ) Neutrophils/100 27 % [place] leukocytes in Hospital Blood by Manual count ID Date Data Source [id number] 01/21/2020 08:54:00 AM EDT [facility] Value Range Interpretation Description Data Sup porting Code Source(s) Document(s ) Platelet mean 11.2 fL [place] volume Hospital [Entitic volume] in Blood by Automated count ID Date Data Source [id number] 01/21/2020 08:54:00 AM EDT [facility] Value Range Interpretation Description Data Sup porting Code Source(s) Document(s ) Platelets 149 [place] [#/volume] in 10*3/uL [facility] Blood by Automated count ID Date Data Source [id number] 01/21/2020 08:54:00 AM EDT [facility] Value Range Interpretation Description Data Sup porting Code Source(s) Document(s ) Erythrocyte 14.2 % [place] distribution Hospital width [Ratio] by Automated count ID Date Data Source [id number] 01/21/2020 08:54:00 AM EDT [facility] Value Range Interpretation Description Data Sup porting Code Source(s) Document(s ) Erythrocyte mean 32.9 [place] corpuscular g/dL Hospital hemoglobin concentration [Mass/volume] by Automated count ID Date Data Source [id number] 01/21/[facility] Interpretation Description Data Sup porting Code Source(s) Document(s ) Erythrocyte 30.1 pg [place] mean Hospital corpuscular hemoglobin [Entitic mass] by Automated count ID Date Data Source [id number] 01/21/2020 08:54:00 AM EDT [facility] Value Range Interpretation Description Data Sup porting Code Source(s) Document(s ) Erythrocyte 91.5 fL [facility] corpuscular volume [Entitic volume] by Automated count ID Date Data Source [id number] 01/21/2020 08:54:00 AM EDT [facility] Value Range Interpretation Description Data Sup porting Code Source(s) Document(s ) Hematocrit 34.3 % [place] [Volume Hospital Fraction] of Blood by Automated count ID Date Data Source [id number] 01/21/2020 08:54:00 AM EDT [facility] Value Range Interpretation Description Data Sup porting Code Source(s) Document(s ) Hemoglobin 11.3 g/dL [place] [Mass/volume] Hospital in Blood ID Date Data Source [id number] 01/21/2020 [facility] Value Range Interpretation Description Data Sup porting Code Source(s) Document(s ) Erythrocytes 3.75 [place] [#/volume] in 10*6/uL Hospital Blood by Automated count ID Date Data Source [id number] 01/21/2020 08:54:00 AM EDT [facility] Value Range Interpretation Description Data Sup porting Code Source(s) Document(s ) Leukocytes 3.0 [place] [#/volume] in 10*3/uL Hospital Blood by Automated count ID Date Data Source [id number] 01/20/2020 04:50[facility] Value Range Interpretation Description Data Sup porting Code Source(s) Document(s ) GLUCOSE RN Notified [place] COMMENT Hospital ID Date Data Source [id number] 01/20/2020 06:19:00 AM EDT [facility] Name Value Range Interpretation Code Description Data Supporting Source(s) Document(s ) NUCLEATED RBCS 0.0 % [place] (AUTO Hospital DIFF%)DIS ID Date Data Source [id number] 01/20/2020 06:19:00 AM EDT [facility] Value Range Interpretation Description Data Sup porting Code Source(s) Document(s ) Differential AUTOMATED [place] cell count Hospital method - Blood ID Date Data Source [id number] 01/20/2020 06:19[facility] Value Range Interpretation Description Data Sup porting Code Source(s) Document(s ) Immature 0.00 [place] granulocytes 10*3/uL Hospital [#/volume] in Blood by Automated count ID Date Data Source [id number] 01/20/2020 06:19:00 AM EDT [facility] Value Range Interpretation Description Data Sup porting Code Source(s) Document(s ) Basophils 0.02 [place] [#/volume] in 10*3/uL Hospital Blood by Automated count ID Date Data Source [id number] 01/20/2020 06:19:00 AM EDT [facility] Name Value Range Interpretation Description Data Sup porting Code Source(s) Document(s ) Eosinophils 0.19 [place] [#/volume] in 10*3/uL Hospital Blood by Automated count ID Date Data Source [id number] 01/20/2020 06:19:00 AM EDT [facility] Name Value Range Interpretation Description Data Sup porting Code Source(s) Document(s ) Monocytes 0.35 [place] [#/volume] in 10*3/uL Hospital Blood by Automated count ID Date Data Source [id number] 01/20/2020 06:19:00 AM EDT [facility] Name Value Range Interpretation Description Data Sup porting Code Source(s) Document(s ) Lymphocytes 2.02 [place] [#/volume] in 10*3/uL Hospital Blood by Automated count ID Date Data Source [id number] 01/20/2020 06:19:00 AM EDT [facility] Value Range Interpretation Description Data Sup porting Code Source(s) Document(s ) Neutrophils 0.93 [place] [#/volume] in 10*3/uL [facility] Blood by Automated count ID Date Data Source [id number] 01/20/2020 06:19:00 AM EDT [facility] Value Range Interpretation Description Data Sup porting Code Source(s) Document(s ) Nucleated 0.0 % [place] erythrocytes/10 Hospital 0 leukocytes [Ratio] in Blood by Automated count ID Date Data Source [id number] 01/20/2020 06:19:00 AM EDT [facility] Value Range Interpretation Description Data Sup porting Code Source(s) Document(s ) Immature 0.0 % [place] granulocytes/10 Hospital 0 leukocytes in Blood by Automated count ID Date Data Source [id number] 01/20/2020 06:19:00 AM EDT [facility] Value Range Interpretation Description Data Sup porting Code Source(s) Document(s ) Basophils/100 0.6 % [place] leukocytes in Hospital Blood by Automated count ID Date Data Source [id number] 01/20/2020 06:19:00 AM EDT [facility] Value Range Interpretation Description Data Sup porting Code Source(s) Document(s ) Eosinophils/100 5.4 % [place] leukocytes in Hospital Blood by Automated count ID Date Data Source [id number] 01/20/2020 06:19:00 AM EDT [facility] Name Value Range Interpretation Description Data Sup porting Code Source(s) Document(s ) Monocytes/100 10.0 % [place] leukocytes in Hospital Blood by Automated count ID Date Data Source [id number] 01/20/2020 06:19:00 AM EDT [facility] Name Value Range Interpretation Description Data Sup porting Code Source(s) Document(s ) Lymphocytes/10 57.5 % [place] 0 leukocytes Hospital in Blood by Automated count ID Date Data Source [id number] 01/20/2020 06:19:00 AM EDT [facility] Name Value Range Interpretation Description Data Sup porting Code Source(s) Document(s ) Neutrophils/10 26.5 % [place] 0 leukocytes Hospital in Blood by Automated count ID Date Data Source [id number] 01/19/2020 10:29:00 AM EDT [facility] Value Range Interpretation Description Data Sup porting Code Source(s) Document(s ) Ammonia 47 mmol/L [place] [Moles/volum Hospital e] in Plasma ID Date Data Source [id number] 01/18/2020 01:42:00 PM EDT [facility] Value Range Interpretation Code Description Data Bryanna rce(s) Supporting Document(s ) ABG TEMP 97.7 [facility] ID Date Data Source [id number] 01/18/2020 01:42:00 PM EDT [facility] Value Range Interpretation Code Description Data Bryanna rce(s) Supporting Document(s ) FIO2 21 % [place] [facility] ID Date Data Source [id number] 01/18/2020 01:42:00 PM EDT [facility] Name Value Range Interpretation Code Description Data Bryanna rce(s) Supporting Document(s ) ABG BE -12.8 [place] mmol/L Hospital ID Date Data Source [id number] 01/18/2020 01:42:00 PM EDT [facility] Value Range Interpretation Code Description Data Bryanna rce(s) Supporting Document(s ) ABG O2SAT 82 % [facility] ID Date Data Source [id number] 01/18/2020 01:42:00 PM EDT [facility] Value Range Interpretation Code Description Data Bryanna rce(s) Supporting Document(s ) ABG HCO3 13 mmol/L [facility] ID Date Data Source [id number] 01/18/2020 01:42:00 PM EDT [facility] Value Range Interpretation Code Description Data Bryanna rce(s) Supporting Document(s ) ABG PO2 53 mm[Hg] [facility] ID Date Data Source [id number] 01/18/2020 01:42:00 PM EDT [facility] Value Range Interpretation Code Description Data Bryanna rce(s) Supporting Document(s ) ABG PCO2 30 mm[Hg] [facility] ID Date Data Source [id number] 01/18/2020 01:42:00 PM EDT [facility] Value Range Interpretation Code Description Data Bryanna rce(s) Supporting Document(s ) ABG PH 7.26 [facility] ID Date Data Source [id number] 01/18/2020 01:42:00 PM EDT [facility] Value Range Interpretation Code Description Data Bryanna rce(s) Supporting Document(s ) ABG MODE Room Air [facility] ID Date Data Source [id number] 01/18/2020 01:42:00 PM EDT [facility] Value Range Interpretation Description Data Sup porting Code Source(s) Document(s ) ABG SITE Peripheral [place] [facility] ID Date Data Source [id number] 01/18/2020 01:42:00 PM EDT [facility] Name Value Range Interpretation Code Description Data Bryanna rce(s) Supporting Document(s ) JORGE TEST POSITIVE [facility] ID Date Data Source [id number] 01/18/2020 01:42:00 PM EDT [facility] Name Value Range Interpretation Code Description Data Bryanna rce(s) Supporting Document(s ) READ BACK Yes/MD [facility] ID Date Data Source [id number] 01/18/2020 01:42:00 PM EDT [facility] Name Value Range Interpretation Code Description Data Bryanna rce(s) Supporting Document(s ) NOTE WHO [facility] [facility] ID Date Data Source [id number] 01/18/2020 01:42:00 PM EDT [facility] Name Value Range Interpretation Description Data Sup porting Code Source(s) Document(s ) IONIZED 1.46 [place] CALCIUM mmol/L Hospital ID Date Data Source [id number] 01/18/2020 01:42:00 PM EDT [facility] Value Range Interpretation Code Description Data Supporting Source(s) Document(s ) METHEMOGLOBIN 0.7 % [facility] ID Date Data Source [id number] 01/18/2020 01:42:00 PM EDT [facility] Name Value Range Interpretation Description Data Sup porting Code Source(s) Document(s ) CARBOXYHEMOGLOBIN 0.7 % [facility] ID Date Data Source [id number] 01/18/2020 01:29:00 PM EDT [facility] CUT-OFF >= 25 NG/ML.THE FINDINGS [...] rce(s) Supporting Document(s ) PCP (UR) NEGATIVE [facility] ID Date Data Source [id number] 01/18/2020 01:29:00 PM EDT [facility] CUT-OFF >= 50 NG/ML. Name Value Range Interpretation Code Description Data Bryanna rce(s) Supporting Document(s ) THC (UR) NEGATIVE [facility] ID Date Data Source [id number] 01/18/2020 01:29:00 PM EDT [facility] CUT-OFF >= 300 NG/ML. Name Value Range Interpretation Description Data Sup porting Code Source(s) Document(s ) OPIATES (UR) NEGATIVE [facility] ID Date Data Source [id number] 01/18/2020 01:29:00 PM EDT [facility] CUT-OFF >= 300 NG/ML. Name Value Range Interpretation Description Data Sup porting Code Source(s) Document(s ) COCAINE (UR) NEGATIVE [facility] ID Date Data Source [id number] 01/18/2020 01:29:00 PM EDT [facility] CUT-OFF >= 200 NG/ML. Name Value Range Interpretation Description Data Sup porting Code Source(s) Document(s ) BENZODIAZEPINES NEGATIVE [place] (UR) [facility] ID Date Data Source [id number] 01/18/2020 01:29:00 PM EDT [facility] CUT-OFF >= 200 NG/ML. Name Value Range Interpretation Description Data Sup porting Code Source(s) Document(s ) BARBITURATES NEGATIVE [place] (UR) Hospital ID Date Data Source [id number] 01/18/2020 01:29:00 PM EDT [facility] CUT-OFF >= 1000 NG/ML. Name Value Range Interpretation Description Data Sup porting Code Source(s) Document(s ) AMPHETAMINES NEGATIVE [place] (UR) Hospital ID Date Data Source [id number] 01/18/2020 01:29:00 PM EDT [facility] Name Value Range Interpretation Description Data Sup porting Code Source(s) Document(s ) Epithelial 3+ [place] [facility] [#/area] in Urine sediment by Microscopy high power field ID Date Data Source [id number] 01/18/2020 01:29:00 PM EDT [facility] Name Value Range Interpretation Description Data Sup porting Code Source(s) Document(s ) Erythrocytes 0-3 [place] [#/area] in /[HPF] Hospital Urine sediment by Microscopy high power field ID Date Data Source [id number] [facility]/18[facility]2020 [facility] Interpretation Description Data Sup porting Code Source(s) Document(s ) Leukocytes 0-3 [place] [#/area] in /[HPF] Hospital Urine sediment by Microscopy high power field ID Date Data Source [id number] 01/18/2020 01:29:00 PM EDT [facility] Name Value Range Interpretation Description Data Sup porting Code Source(s) Document(s ) Leukocyte NEGATIVE [facility] Hospital [Presence] in Urine by Test strip ID Date Data Source [id number] 01/18/2020 [facility] Value Range Interpretation Description Data Sup porting Code Source(s) Document(s ) URINE NEGATIVE [place] NITRITES Hospital ID Date Data Source [id number] 01/18/2020 01:29:00 PM EDT [facility] Name Value Range Interpretation Description Data Sup porting Code Source(s) Document(s ) Erythrocytes NEGATIVE [place] [#/volume] in Hospital Urine by Test strip ID Date Data Source [id number] 01/18/2020 01:29:00 PM EDT [facility] Name Value Range Interpretation Code Description Data Bryanna rce(s) Supporting Document(s ) Bilirubin. NEGATIVE [place] total Hospital [Presence] in Urine by Test strip ID Date Data Source [id number] 01/18/2020 01:29:00 PM EDT [facility] Name Value Range Interpretation Description Data Sup porting Code Source(s) Document(s ) Urobilinogen 0.2 [place] [Units/volume] mg/dL Hospital in Urine by Test strip ID Date Data Source [id number] 01/18/2020 01:29:00 PM EDT [facility] Name Value Range Interpretation Code Description Data Bryanna rce(s) Supporting Document(s ) Ketones 4+ [place] [Mass/volume Hospital ] in Urine by Test strip ID Date Data Source [id number] 01/18/2020 01:29:00 PM EDT [facility] Name Value Range Interpretation Code Description Data Bryanna rce(s) Supporting Document(s ) Glucose 3+ [place] [Mass/volume Hospital ] in Urine by Test strip ID Date Data Source [id number] 01/18/2020 01:29:00 PM EDT [facility] Name Value Range Interpretation Code Description Data Bryanna rce(s) Supporting Document(s ) Protein TRACE [place] [Presence] Hospital in Urine by Test strip ID Date Data Source [id number] 01/18/2020 01:29:00 PM EDT [facility] Name Value Range Interpretation Code Description Data Bryanna rce(s) Supporting Document(s ) pH of Urine 5.0 [place] by Test Hospital strip ID Date Data Source [id number] [facility]2020 [facility] Name Value Range Interpretation Code Description Data Supporting Source(s) Document(s ) Specific 1.035 [place] gravity of Hospital Urine by Test strip ID Date Data Source [id number] 01/18/2020 [facility] Name Value Range Interpretation Description Data Sup porting Code Source(s) Document(s ) Clarity in Urine TURBID [place] by Refractometry Hospital automated ID Date Data Source [id number] 01/18/2020 01:29:00 PM [facility] Value Range Interpretation Code Description Data Bryanna rce(s) Supporting Document(s ) Color of YELLOW [place] Urine Hospital ID Date Data Source [id number] 01/18/2020 11:15:00 AM [facility] Value Range Interpretation Description Data Sup porting Code Source(s) Document(s ) MISC TEST SEE COMMENT [place] REFERENCE ABOVE Hospital RANGE ID Date Data Source [id number] 01/18/2020 11:15:[address] [facility] Beta-Hydroxybutyrate, S: 9.0 mmol/L (HIG H)Reference Value: <0.4TEST PERFORMED AT:[address] [address] Name Value Range Interpretation Code Description Data Supporting Source(s) Document(s ) MISC TEST SEE NOTE [place] RESULT Hospital ID Date Data Source [id number] 01/18/2020 [facility] Interpretation Code Description Data Bryanna rce(s) Supporting Document(s ) MISC TEST [facility] [place] NAME xybutyrate Hospital ID Date Data Source [id number] 01/18/2020 11:15:[address] [facility] Name Value Range Interpretation Description Data Sup porting Code Source(s) Document(s ) Thyroxine 0.7 ng/dL [place] (T4) free Hospital [Mass/volume] in Serum or Plasma ID Date Data Source [id number] 01/18/2020 11:15:[address] [facility] Name Value Range Interpretation Description Data Sup porting Code Source(s) Document(s ) Thyrotropin 0.594 [place] [Units/volume] u[IU]/mL Hospital in Serum or Plasma by Detection limit <= 0.005 mIU/L ID Date Data Source [id number] 01/18/2020 11:15:[address] [facility] TEST PERFORMED BY [employer] UL[employer] SENSIT[employer] [facility] CHEMILUMINESCENCE METHOD. Name Value Range Interpretation Description Data Sup porting Code Source(s) Document(s ) Troponin 0.04 [place] I.cardiac ng/mL Hospital [Mass/volume ] in Serum or Plasma ID Date Data Source [id number] 01/18/2020 11:15:00 AM [facility] Value Range Interpretation Code Description Data Bryanna rce(s) Supporting Document(s ) Lipase 16 U/L [place] [Enzymatic Hospital activity/vo lume] in Serum or Plasma ID Date Data Source [id number] 01/18/2020 11:15:[address] [facility] THERAPEUTIC RANGE FOR STANDARD ORALANTIC OAGULANT THERAPY: 2.0-3.0THERAPEUTIC RANGE FOR HIGH DOSE ORALANTICOAGULANT THERAPY (MECHANICAL HEARTVALVE REPLACEMENT): 2.5-3.5 Name Value Range Interpretation Description Data Sup porting Code Source(s) Document(s ) INR in Platelet 0.9 [place] poor plasma by Hospital Coagulation assay ID Date Data Source [id number] 01/18/2020 11:15:[address] [facility] Name Value Range Interpretation Description Data Sup porting Code Source(s) Document(s ) PT panel - 10.4 s [place] Platelet poor [facility] plasma by Coagulation assay ID Date Data Source [id number] 01/10/2020 05:41:[address] [facility] Informatics Analyst:BECKY LEIVA Name Value Range Interpretation Description Data Sup porting Code Source(s) Document(s ) Glucose 288 mg/dL [place] [Mass/volume] Hospital in Capillary blood by Glucometer ID Date Data Source [id number] 01/10/2020 01:22:[address] [facility] Name Value Range Interpretation Description Data Sup porting Code Source(s) Document(s ) Aspartate 44 U/L [facility] aminotransferase [facility] [Enzymatic Hospital activity/volume] in Serum or Plasma ID Date Data Source [id number] 01/10/2020 01:22:[address] [facility] Name Value Range Interpretation Description Data Sup porting Code Source(s) Document(s ) Alanine 26 U/L [place] aminotransferase [facility] [Enzymatic Hospital activity/volume] in Serum or Plasma ID Date Data Source [id number] 01/10/2020 01:22:[address] [facility] Name Value Range Interpretation Description Data Sup porting Code Source(s) Document(s ) Alkaline 86 U/L [place] phosphatase Hospital [Enzymatic activity/volume ] in Serum or Plasma ID Date Data Source [id number] 01/10/2020 01:22:[address] [facility] Name Value Range Interpretation Description Data Sup porting Code Source(s) Document(s ) Bilirubin.t 1.1 mg/dL [facility] [Mass/volum e] in Serum or Plasma ID Date Data Source [id number] 01/10/2020 01:22:00 AM EDT [facility] Name Value Range Interpretation Code Description Data Bryanna rce(s) Supporting Document(s ) Albumin/Glob 1.1 [place] ulin [Mass Hospital Ratio] in Serum or Plasma ID Date Data Source [id number] 01/10/2020 01:22:00 AM EDT [facility] Name Value Range Interpretation Description Data Sup porting Code Source(s) Document(s ) Albumin 3.1 g/dL [place] [Mass/volume Hospital ] in Serum or Plasma ID Date Data Source [id number] 01/10/2020 01:22:00 AM EDT [facility] Name Value Range Interpretation Description Data Sup porting Code Source(s) Document(s ) Protein 6.0 g/dL [place] [Mass/volume Hospital ] in Serum or Plasma ID Date Data Source [id number] 01/10/2020 01:22:00 AM EDT [facility] Name Value Range Interpretation Description Data Sup porting Code Source(s) Document(s ) Calcium 8.8 mg/dL [place] [Mass/volume Hospital ] in Serum or Plasma ID Date Data Source [id number] 01/10/2020 01:22:[address] [facility] UNITS ARE IN ml/min/1.73m2.IF PATIENT IS -PAPUA [place], MULTIPLY REPORTED RESULT BY 1.21. Name Value Range Interpretation Description Data Sup porting Code Source(s) Document(s ) Glomerular > 60 [place] filtration mL/min Hospital rate/1.73 sq M.predicted [Volume Rate/Area] in Serum or Plasma by Creatinine-bas ed formula (MDRD) ID Date Data Source [id number] 01/10/2020 01:22:00 AM EDT [facility] Name Value Range Interpretation Code Description Data Bryanna rce(s) Supporting Document(s ) Urea 10.0 [place] nitrogen/Cre Hospital atinine [Mass Ratio] in Serum or Plasma ID Date Data Source [id number] 01/10/2020 01:22:[facility] Name Value Range Interpretation Description Data Sup porting Code Source(s) Document(s ) Creatinine 0.9 mg/dL [place] [Mass/volume] Hospital in Serum or Plasma ID Date Data Source [id number] 01/10/2020 01:22:[facility] Name Value Range Interpretation Description Data Sup porting Code Source(s) Document(s ) Urea nitrogen 9 mg/dL [place] [Mass/volume] Hospital in Serum or Plasma ID Date Data Source [id number] 01/10/2020 01:22:00 AM [facility] Value Range Interpretation Code Description Data Bryanna rce(s) Supporting Document(s ) Anion gap in 11 [place] Serum or [facility] Plasma ID Date Data Source [id number] 01/10/2020 01:22:[facility] Name Value Range Interpretation Description Data Sup porting Code Source(s) Document(s ) Carbon 30 mmol/L [place] dioxide, Hospital total [Moles/volu me] in Serum or Plasma ID Date Data Source [id number] 01/10/2020 01:22:00 [facility] Name Value Range Interpretation Description Data Sup porting Code Source(s) Document(s ) Chloride 104 [place] [Moles/volum mmol/L Hospital e] in Serum or Plasma ID Date Data Source [id number] 01/10/2020 01:22:[address] [facility] THIS RESULT HAS BEEN VERIFIED. Name Value Range Interpretation Description Data Sup porting Code Source(s) Document(s ) Potassium 4.7 [place] [Moles/volume mmol/L Hospital ] in Serum or Plasma ID Date Data Source [id number] 01/10/2020 01:22:00 AM EDT [facility] Name Value Range Interpretation Description Data Sup porting Code Source(s) Document(s ) Sodium 140 mmol/L [place] [[facility] [place]] in Serum or Plasma ID Date Data Source [id number] 01/10/2020 01:22:00 [facility] NOTIFICATION AND READ BACK OF CRITICAL R ESULTS TO DIANA STRATTON OF AT 0209 ON 01/10/20 BY Jeri Iraheta.PLEASE NOTE FIDEL NGE IN CRITICAL GLUCOSE VALUES EFFECTIVE 04/22/17.REPORTED CRITICAL VALUES SHOULD B E INTERPRETED WITHIN CLINICAL CONTEXT. Name Value Range Interpretation Description Data Sup porting Code Source(s) Document(s ) Glucose 474 mg/dL [place] [Mass/volume Hospital ] in Serum or Plasma ID Date Data Source [id number] 01/10/2020 01:22:[facility] Name Value Range Interpretation Description Data Sup porting Code Source(s) Document(s ) Differential AUTOMATED [place] cell count [facility] method - Blood ID Date Data Source [id number] 01/10/2020 01:22:[address] [facility] Name Value Range Interpretation Description Data Sup porting Code Source(s) Document(s ) Immature 0.01 [place] granulocytes 10*3/uL Hospital [#/volume] in Blood by Automated count ID Date Data Source [id number] 01/10/2020 01:22:[facility] Name Value Range Interpretation Description Data Sup porting Code Source(s) Document(s ) Basophils 0.05 [place] [#/volume] in 10*3/uL Hospital Blood by Automated count ID Date Data Source [id number] 01/10/2020 01:22:00 AM EDT [facility] Name Value Range Interpretation Description Data Sup porting Code Source(s) Document(s ) Eosinophils 0.35 [place] [#/volume] in 10*3/uL Hospital Blood by Automated count ID Date Data Source [id number] 01/10/2020 01:22:00 AM EDT [facility] Name Value Range Interpretation Description Data Sup porting Code Source(s) Document(s ) Monocytes 0.47 [place] [#/volume] in 10*3/uL Hospital Blood by Automated count ID Date Data Source [id number] 01/10/2020 01:22:00 AM EDT [facility] Value Range Interpretation Description Data Sup porting Code Source(s) Document(s ) Lymphocytes 2.46 [place] [#/volume] in 10*3/uL Hospital Blood by Automated count ID Date Data Source [id number] 01/10/2020 01:22:00 AM EDT [facility] Value Range Interpretation Description Data Sup porting Code Source(s) Document(s ) Neutrophils 0.96 [place] [#/volume] in 10*3/uL Hospital Blood by Automated count ID Date Data Source [id number] 01/10/2020 01:22:00 AM EDT [facility] Value Range Interpretation Description Data Sup porting Code Source(s) Document(s ) Nucleated 0.0 % [place] erythrocytes/10 Hospital 0 leukocytes [Ratio] in Blood by Automated count ID Date Data Source [id number] 01/10/2020 01:22:00 AM EDT [facility] Name Value Range Interpretation Description Data Sup porting Code Source(s) Document(s ) Immature 0.2 % [place] granulocytes/10 Hospital 0 leukocytes in Blood by Automated count ID Date Data Source [id number] 01/10/2020 01:22:00 AM EDT [facility] Name Value Range Interpretation Description Data Sup porting Code Source(s) Document(s ) Basophils/100 1.2 % [place] leukocytes in Hospital Blood by Automated count ID Date Data Source [id number] 01/10/2020 01:22:00 AM EDT [facility] Name Value Range Interpretation Description Data Sup porting Code Source(s) Document(s ) Eosinophils/100 8.1 % [place] leukocytes in Hospital Blood by Automated count ID Date Data Source [id number] 01/10/2020 01:22:00 AM EDT [facility] Value Range Interpretation Description Data Sup porting Code Source(s) Document(s ) Monocytes/100 10.9 % [place] leukocytes in Hospital Blood by Automated count ID Date Data Source [id number] 01/10/2020 01:22:00 AM EDT [facility] Name Value Range Interpretation Description Data Sup porting Code Source(s) Document(s ) Lymphocytes/10 57.2 % [place] 0 leukocytes Hospital in Blood by Automated count ID Date Data Source [id number] 01/10/2020 01:22:00 AM EDT [facility] Value Range Interpretation Description Data Sup porting Code Source(s) Document(s ) Neutrophils/10 22.4 % [place] 0 leukocytes Hospital in Blood by Automated count ID Date Data Source [id number] 01/10/2020 01:22:00 AM EDT [facility] Name Value Range Interpretation Description Data Sup porting Code Source(s) Document(s ) Platelet mean 13.0 fL [place] volume Hospital [Entitic volume] in Blood by Automated count ID Date Data Source [id number] 01/10/2020 01:22:00 AM EDT [facility] Value Range Interpretation Description Data Sup porting Code Source(s) Document(s ) Platelets 215 [place] [#/volume] in 10*3/uL Hospital Blood by Automated count ID Date Data Source [id number] 01/10/2020 01:22:00 AM [facility] Value Range Interpretation Description Data Sup porting Code Source(s) Document(s ) Erythrocyte 15.5 % [place] distribution Hospital width [Ratio] by Automated count ID Date Data Source [id number] 01/10/2020 [facility] Value Range Interpretation Description Data Sup porting Code Source(s) Document(s ) Erythrocyte mean 34.5 [place] corpuscular g/dL Hospital hemoglobin concentration [Mass/volume] by Automated count ID Date Data Source [id number] 01/10/2020 01:22:00 AM [facility] Value Range Interpretation Description Data Sup porting Code Source(s) Document(s ) Erythrocyte 30.5 pg [facility] corpuscular hemoglobin [Entitic mass] by Automated count ID Date Data Source [id number] 01/10/2020 01:22:00 AM [facility] Value Range Interpretation Description Data Sup porting Code Source(s) Document(s ) Erythrocyte 88.5 fL [facility] corpuscular volume [Entitic volume] by Automated count ID Date Data Source [id number] 01/10/2020 01:22:00 AM [facility] Value Range Interpretation Description Data Sup porting Code Source(s) Document(s ) Hematocrit 32.2 % [place] [Volume Hospital Fraction] of Blood by Automated count ID Date Data Source [id number] 01/10/2020 01:22:00 AM [facility] Value Range Interpretation Description Data Sup porting Code Source(s) Document(s ) Hemoglobin 11.1 g/dL [place] [Mass/volume] Hospital in Blood ID Date Data Source [id number] 01/10/2020 01:22:[address] [facility] Name Value Range Interpretation Description Data Sup porting Code Source(s) Document(s ) Erythrocytes 3.64 [place] [#/volume] in 10*6/uL Hospital Blood by Automated count ID Date Data Source [id number] 01/10/2020 01:22:[address] [facility] Name Value Range Interpretation Description Data Sup porting Code Source(s) Document(s ) Leukocytes 4.3 [place] [#/volume] in 10*3/uL Hospital Blood by Automated count ID Date Data Source [id number] 01/10/2020 01:22:[address] [facility] UNITS ARE IN ml/min/1.73m2.IF PATIENT IS -[place], MULTIPLY REPORTED RESULT BY 1.21. Name Value Range Interpretation Description Data Sup porting Code Source(s) Document(s ) Glomerular > 60 [place] filtration mL/min Hospital rate/1.73 sq M.predicted [Volume Rate/Area] in Serum or Plasma by Creatinine-bas ed formula (MDRD) ID Date Data Source [id number] 01/08/2020 11:43:[address] [facility] Informatics Analyst:PAVEL DURAN Name Value Range Interpretation Description Data Sup porting Code Source(s) Document(s ) Glucose 177 mg/dL [place] [Mass/volume] [facility] in Capillary blood by Glucometer ID Date Data Source [id number] 01/08/2020 10:23:[address] [facility] NOTIFICATION AND READ BACK OF CRITICAL R ESULTS TO MUMTAZ MAHARAJ R.N/KARLAC AT 1119 ON 01/08/20 BY Sd Masterson.REPORTED CRITICAL VALUES SHOULD BE INTERPRETED WITHIN CLINICAL CONTEXT. Name Value Range Interpretation Description Data Sup porting Code Source(s) Document(s ) Lactate 2.8 [place] [Moles/volum mmol/L Hospital e] in Serum or Plasma ID Date Data Source [id number] 01/08/2020 10:23:00 AM EDT [facility] NOTIFICATION AND READ BACK OF CRITICAL R ESULTS TO MUMTAZ MAHARAJ R.N/EVELIA AT 1119 ON 01/08/20 BY Sd Masterson.REPORTED CRITICAL VALUES SHOULD BE INTERPRETED WITHIN CLINICAL CONTEXT. Name Value Range Interpretation Description Data Sup porting Code Source(s) Document(s ) Lactate 2.8 [place] [Moles/volum mmol/L Hospital e] in Serum or Plasma ID Date Data Source [id number] 01/08/2020 08:37:00 AM EDT [facility] CUT-OFF >= 25 NG/ML.THE FINDINGS [...] rce(s) Supporting Document(s ) PCP (UR) NEGATIVE [facility] ID Date Data Source [id number] 01/08/2020 08:37:00 AM EDT [facility] CUT-OFF >= 50 NG/ML. Name Value Range Interpretation Code Description Data Bryanna rce(s) Supporting Document(s ) THC (UR) NEGATIVE [facility] ID Date Data Source [id number] 01/08/2020 08:37:00 AM EDT [facility] CUT-OFF >= 300 NG/ML. Name Value Range Interpretation Description Data Sup porting Code Source(s) Document(s ) OPIATES (UR) NEGATIVE [facility] ID Date Data Source [id number] 01/08/2020 08:37:00 AM EDT [facility] CUT-OFF >= 300 NG/ML. Name Value Range Interpretation Description Data Sup porting Code Source(s) Document(s ) COCAINE (UR) POSITIVE [place] [facility] ID Date Data Source [id number] 01/08/2020 08:37:00 AM EDT [facility] CUT-OFF >= 200 NG/ML. Name Value Range Interpretation Description Data Sup porting Code Source(s) Document(s ) BENZODIAZEPINES NEGATIVE [place] (UR) [facility] ID Date Data Source [id number] 01/08/2020 08:37:00 AM EDT [facility] CUT-OFF >= 200 NG/ML. Name Value Range Interpretation Description Data Sup porting Code Source(s) Document(s ) BARBITURATES NEGATIVE [place] (UR) Hospital ID Date Data Source [id number] 01/08/2020 08:37:00 AM EDT [facility] CUT-OFF >= 1000 NG/ML. Name Value Range Interpretation Description Data Sup porting Code Source(s) Document(s ) AMPHETAMINES NEGATIVE [place] (UR) Hospital ID Date Data Source [id number] 01/08/2020 08[facility]37[facility] Name Value Range Interpretation Description Data Sup porting Code Source(s) Document(s ) Leukocyte NEGATIVE [place] esterase Hospital [Presence] in Urine by Test strip ID Date Data Source [id number] 01/08/2020 08:37:[facility] Name Value Range Interpretation Description Data Sup porting Code Source(s) Document(s ) URINE NEGATIVE [place] NITRITE Hospital ID Date Data Source [id number] 01/08/2020 08:37:00 AM EDT [facility] Name Value Range Interpretation Description Data Sup porting Code Source(s) Document(s ) Erythrocytes NEGATIVE [place] [#/volume] in Hospital Urine by Test strip ID Date Data Source [id number] 01/08/2020 08:37:00 AM EDT [facility] Name Value Range Interpretation Code Description Data Bryanna rce(s) Supporting Document(s ) Bilirubin. NEGATIVE [place] total Hospital [Presence] in Urine by Test strip ID Date Data Source [id number] 01/08/2020 08:37:00 AM EDT [facility] Name Value Range Interpretation Description Data Sup porting Code Source(s) Document(s ) Urobilinogen 1.0 [place] [Units/volume] mg/dL Hospital in Urine by Test strip ID Date Data Source [id number] 01/08/2020 08:37:00 AM EDT [facility] Value Range Interpretation Description Data Sup porting Code Source(s) Document(s ) Ketones NEGATIVE [place] [Mass/volume Hospital ] in Urine by Test strip ID Date Data Source [id number] 01/08/2020 08:37:00 AM EDT [facility] Value Range Interpretation Code Description Data Bryanna rce(s) Supporting Document(s ) Glucose 3+ [place] [Mass/volume Hospital ] in Urine by Test strip ID Date Data Source [id number] 01/08/2020 08:37:00 AM EDT [facility] Name Value Range Interpretation Description Data Sup porting Code Source(s) Document(s ) Protein NEGATIVE [place] [Presence] Hospital in Urine by Test strip ID Date Data Source [id number] 01/08/2020 08:37:00 AM EDT [facility] Value Range Interpretation Code Description Data Bryanna rce(s) Supporting Document(s ) pH of Urine 7.0 [place] by Test Hospital strip ID Date Data Source [id number] 01/08/2020 08:37:[address] [facility] Name Value Range Interpretation Code Description Data Supporting Source(s) Document(s ) Specific 1.035 [place] [facility] Urine by Test strip ID Date Data Source [id number] 01/08/2020 08:37:[address] [facility] Name Value Range Interpretation Description Data Sup porting Code Source(s) Document(s ) Clarity in Urine CLEAR [place] by Refractometry [facility] automated ID Date Data Source [id number] 01/08/2020 08:37:[address] [facility] Name Value Range Interpretation Code Description Data Bryanna rce(s) Supporting Document(s ) Color of YELLOW [place] Urine [facility] ID Date Data Source [id number] 01/08/2020 08:37:[address] [facility] CUT-OFF >= 25 NG/ML.THE FINDINGS OF [...] rce(s) Supporting Document(s ) PCP (UR) NEGATIVE [facility] ID Date Data Source [id number] [facility] NG/ML. Name Value Range Interpretation Code Description Data Bryanna rce(s) Supporting Document(s ) THC (UR) NEGATIVE [facility] ID Date Data Source [id number] 01/08/2020 08:37:[address] [facility] CUT-OFF >= 300 NG/ML. Name Value Range Interpretation Description Data Sup porting Code Source(s) Document(s ) OPIATES (UR) NEGATIVE [facility] ID Date Data Source [id number] 01/08/2020 08:37:00 AM EDT [facility] CUT-OFF >= 300 NG/ML. Name Value Range Interpretation Description Data Sup porting Code Source(s) Document(s ) COCAINE (UR) POSITIVE [facility] ID Date Data Source [id number] 01/08/2020 08:37:00 AM EDT [facility] CUT-OFF >= 200 NG/ML. Name Value Range Interpretation Description Data Sup porting Code Source(s) Document(s ) BENZODIAZEPINES NEGATIVE [place] (UR) [facility] ID Date Data Source [id number] [facility]2020 [facility] >= 200 NG/ML. Name Value Range Interpretation Description Data Sup porting Code Source(s) Document(s ) BARBITURATES NEGATIVE [place] (UR) Hospital ID Date Data Source [id number] 01/08/2020 08:37:[address] [facility] CUT-OFF >= 1000 NG/ML. Name Value Range Interpretation Description Data Sup porting Code Source(s) Document(s ) AMPHETAMINES NEGATIVE [place] (UR) Hospital ID Date Data Source [id number] 01/08/2020 08:37:[address] [facility] Name Value Range Interpretation Description Data Sup porting Code Source(s) Document(s ) Leukocyte NEGATIVE [facility] [Presence] in Urine by Test strip ID Date Data Source [id number] 01/08/2020 08:37:[address] [facility] Name Value Range Interpretation Description Data Sup porting Code Source(s) Document(s ) URINE NEGATIVE [place] [facility] ID Date Data Source [id number] 01/08/2020 08:37:00 AM EDT [facility] Name Value Range Interpretation Description Data Sup porting Code Source(s) Document(s ) Erythrocytes NEGATIVE [place] [#/volume] in Hospital Urine by Test strip ID Date Data Source [id number] 01/08/2020 08:37:00 AM EDT [facility] Name Value Range Interpretation Code Description Data Bryanna rce(s) Supporting Document(s ) Bilirubin. NEGATIVE [place] [facility] [Presence] in Urine by Test strip ID Date Data Source [id number] 01/08/2020 08:37:00 AM EDT [facility] Name Value Range Interpretation Description Data Sup porting Code Source(s) Document(s ) Urobilinogen 1.0 [place] [Units/volume] mg/dL Hospital in Urine by Test strip ID Date Data Source [id number] 01/08/2020 08:37:00 AM EDT [facility] Name Value Range Interpretation Description Data Sup porting Code Source(s) Document(s ) Ketones NEGATIVE [place] [Mass[facility] ] in Urine by Test strip ID Date Data Source [id number] 01/08/2020 08:37:00 AM EDT [facility] Name Value Range Interpretation Code Description Data Bryanna rce(s) Supporting Document(s ) Glucose 3+ [place] [Mass/volume Hospital ] in Urine by Test strip ID Date Data Source [id number] 01/08/2020 08:37:00 AM EDT [facility] Name Value Range Interpretation Description Data Sup porting Code Source(s) Document(s ) Protein NEGATIVE [place] [[facility] in Urine by Test strip ID Date Data Source [id number] 01/08/2020 08:37:00 AM EDT [facility] Name Value Range Interpretation Code Description Data Bryanna rce(s) Supporting Document(s ) pH of Urine 7.0 [place] by Test Hospital strip ID Date Data Source [id number] 01/08/2020 08:37:[address] [facility] Name Value Range Interpretation Code Description Data Supporting Source(s) Document(s ) Specific 1.035 [place] [facility] Urine by Test strip ID Date Data Source [id number] 01/08/2020 [facility] Name Value Range Interpretation Description Data Sup porting Code Source(s) Document(s ) Clarity in Urine CLEAR [place] by Refractometry [facility] automated ID Date Data Source [id number] 01/08/2020 08:37:[address] [facility] Name Value Range Interpretation Code Description Data Bryanna rce(s) Supporting Document(s ) Color of YELLOW [place] Urine [facility] ID Date Data Source [id number] 01/08/2020 08:21:[address] [facility] TEST PERFORMED BY [facility] CHEMILUMINESCENCE METHOD. Name Value Range Interpretation Description Data Sup porting Code Source(s) Document(s ) Troponin 0.01 [place] I.cardiac ng/mL Hospital [Mass/volume ] in Serum or Plasma ID Date Data Source [id number] 01/08/2020 08:21:[address] [facility] Name Value Range Interpretation Code Description Data Bryanna rce(s) Supporting Document(s ) Lipase 36 U/L [place] [Enzymatic Hospital activity/vo lume] in Serum or Plasma ID Date Data Source [id number] 01/08/2020 08:21:[address] [facility] Name Value Range Interpretation Description Data Sup porting Code Source(s) Document(s ) Phosphate 3.1 mg/dL [place] [Mass/volume] Hospital in Serum or Plasma ID Date Data Source [id number] 01/08/2020 08:21:00 AM EDT [facility] Name Value Range Interpretation Description Data Sup porting Code Source(s) Document(s ) Magnesium 1.5 mg/dL [place] [Mass/volume] [facility] in Serum or Plasma ID Date Data Source [id number] 01/08/2020 08:21:00 AM EDT [facility] THERAPEUTIC RANGES:UNFRACTIONATED HEPARI N THERAPY: 60-90 SECONDSARGATROBAN THERAPY: 49-99 SECONDS Name Value Range Interpretation Description Data Sup porting Code Source(s) Document(s ) aPTT in 28.1 s [place] Platelet poor [facility] plasma by Coagulation assay ID Date Data Source [id number] 01/08/2020 08:21:[address] [facility] THERAPEUTIC RANGE FOR STANDARD ORALANTIC OAGULANT THERAPY: 2.0-3.0THERAPEUTIC RANGE FOR HIGH DOSE ORALANTICOAGULANT THERAPY (MECHANICAL HEARTVALVE REPLACEMENT): 2.5-3.5 Name Value Range Interpretation Description Data Sup porting Code Source(s) Document(s ) INR in Platelet 1.0 [place] poor plasma by Hospital Coagulation assay ID Date Data Source [id number] 01/08/2020 08:21:00 AM EDT [facility] Name Value Range Interpretation Description Data Sup porting Code Source(s) Document(s ) PT panel - 11.9 s [place] Platelet poor [facility] plasma by Coagulation assay ID Date Data Source [id number] 01/08/2020 08:21:00 AM EDT [facility] Name Value Range Interpretation Code Description Data Supporting Source(s) Document(s ) NUCLEATED RBCS 0.0 % [place] (AUTO Hospital DIFF%)DIS ID Date Data Source [id number] 01/08/2020 [facility] REFERENCE RANGES: NONE DETECTED <20 MG/DL NONE TO MILD EUPHORIA 20-49 MG/DL MILD EUPHORIA 50-99 MG/DL MODERATE EUPHORIA 100-149 MG/DL INTOXICATION 150-300 MG/DL Name Value Range Interpretation Description Data Sup porting Code Source(s) Document(s ) Ethanol < 20 [place] [Mass/volume mg/dL Hospital ] in Serum or Plasma ID Date Data Source [id number] 01/08/2020 08:21:[address] [facility] TEST RESULT IS A TOTAL TRICYCLIC [...] Code Source(s) Document(s ) TRICYCLIC < 80 [place] ANTIDEPRESSANT ng/mL Hospital ID Date Data Source [id number] 01/08/2020 08:21:[address] [facility] REFERENCE RANGES: ANALGESIC: 0.0 - 10.0 MG/DL. ARTHRITIC THERAPY: 15.0 - 30.0 MG/DL. Name Value Range Interpretation Description Data Sup porting Code Source(s) Document(s ) Salicylates < 3.0 [place] [Mass/volume] mg/dL Hospital in Serum or Plasma ID Date Data Source [id number] 01/08/2020 08:21:[address] [facility] THERAPEUTIC RANGE: 10.0-30.0 UG/MLTOXIC RANGE: 4 HRS AFTER INGESTION >150 UG/ML 12 HRS AFTER INGESTION >35 UG/ML Name Value Range Interpretation Description Data Sup porting Code Source(s) Document(s ) ACETAMINOPHEN < 10.0 [place] ug/mL Hospital ID Date Data Source [id number] 01/08/2020 08:21:[address] [facility] TEST PERFORMED BY [facility] [facility] CHEMILUMINESCENCE METHOD. Name Value Range Interpretation Description Data Sup porting Code Source(s) Document(s ) Troponin 0.01 [place] I.cardiac ng/mL Hospital [Mass/volume ] in Serum or Plasma ID Date Data Source [id number] 01/08/2020 08:21:00 AM EDT [facility] Name Value Range Interpretation Code Description Data Bryanna rce(s) Supporting Document(s ) Lipase 36 U/L [place] [Enzymatic Hospital activity/vo lume] in Serum or Plasma ID Date Data Source [id number] 01/08/2020 [facility] Name Value Range Interpretation Description Data Sup porting Code Source(s) Document(s ) Phosphate 3.1 mg/dL [place] [Mass/volume] Hospital in Serum or Plasma ID Date Data Source [id number] 01/08/2020 [facility] Name Value Range Interpretation Description Data Sup porting Code Source(s) Document(s ) Magnesium 1.5 mg/dL [place] [Mass/volume] Hospital in Serum or Plasma ID Date Data Source [id number] 01/08/2020 08:21:00 AM EDT [facility] Name Value Range Interpretation Description Data Sup porting Code Source(s) Document(s ) Aspartate 45 U/L [facility] aminotransferase [facility] [Enzymatic Hospital activity/volume] in Serum or Plasma ID Date Data Source [id number] 01/08/2020 [facility] Name Value Range Interpretation Description Data Sup porting Code Source(s) Document(s ) Alanine 27 U/L [place] aminotransferase [facility] [Enzymatic Hospital activity/volume] in Serum or Plasma ID Date Data Source [id number] 01/08/2020 [facility] Name Value Range Interpretation Description Data Sup porting Code Source(s) Document(s ) Alkaline 78 U/L [facility] [Enzymatic activity/volume ] in Serum or Plasma ID Date Data Source [id number] 01/08/2020 08[facility] Name Value Range Interpretation Description Data Sup porting Code Source(s) Document(s ) Bilirubin.t 1.1 mg/dL [facility] [Mass/volum e] in Serum or Plasma ID Date Data Source [id number] 01/08/2020 08:21:[address] [facility] Name Value Range Interpretation Code Description Data Bryanna rce(s) Supporting Document(s ) [facility] in Serum or Plasma ID Date Data Source [id number] 01/08/2020 08[facility] Name Value Range Interpretation Description Data Sup porting Code Source(s) Document(s ) Albumin 3.0 g/dL [place] [Mass/volume Hospital ] in Serum or Plasma ID Date Data Source [id number] 01/08/2020 08:21:00 AM EDT [facility] Name Value Range Interpretation Description Data Sup porting Code Source(s) Document(s ) Protein 5.9 g/dL [place] [Mass/volume Hospital ] in Serum or Plasma ID Date Data Source [id number] 01/08/2020 08[facility] Name Value Range Interpretation Description Data Sup porting Code Source(s) Document(s ) Calcium 8.8 mg/dL [place] [Mass/volume Hospital ] in Serum or Plasma ID Date Data Source [id number] 01/08/2020 08:21:00 AM EDT [facility] Name Value Range Interpretation Code Description Data Bryanna rce(s) Supporting Document(s ) Urea 13.8 [place] nitrogen/[facility] atinine [Mass Ratio] in Serum or Plasma ID Date Data Source [id number] 01/08/2020 08:21:00 AM EDT [facility] Name Value Range Interpretation Description Data Sup porting Code Source(s) Document(s ) Creatinine 0.8 mg/dL [place] [Mass/volume] Hospital in Serum or Plasma ID Date Data Source [id number] 01/08/2020 08:21:00 AM EDT [facility] Value Range Interpretation Description Data Sup porting Code Source(s) Document(s ) Urea 11 mg/dL [place] nitrogen Hospital [Mass/volume ] in Serum or Plasma ID Date Data Source [id number] 01/08/2020 08:21:00 AM EDT [facility] Name Value Range Interpretation Code Description Data Bryanna rce(s) Supporting Document(s ) Anion gap in 9 [place] Serum or [facility] Plasma ID Date Data Source [id number] 01/08/2020 08:21:00 AM EDT [facility] Name Value Range Interpretation Description Data Sup porting Code Source(s) Document(s ) Carbon 27 mmol/L [place] dioxide, Hospital total [Moles/volu me] in Serum or Plasma ID Date Data Source [id number] 01/08/2020 08:21:00 AM EDT [facility] Name Value Range Interpretation Description Data Sup porting Code Source(s) Document(s ) Chloride 113 [place] [Moles/volum mmol/L Hospital e] in Serum or Plasma ID Date Data Source [id number] 01/08/2020 08:21:00 AM EDT [facility] Name Value Range Interpretation Description Data Sup porting Code Source(s) Document(s ) Potassium 3.3 [place] [Moles/volume mmol/L Hospital ] in Serum or Plasma ID Date Data Source [id number] 01/08/2020 08:21:[address] [facility] REFERENCE RANGES: NONE DETECTED <20 MG/DL NONE TO MILD EUPHORIA 20-49 MG/DL MILD EUPHORIA 50-99 MG/DL MODERATE EUPHORIA 100-149 MG/DL INTOXICATION 150-300 MG/DL Name Value Range Interpretation Description Data Sup porting Code Source(s) Document(s ) Ethanol < 20 [place] [Mass/volume mg/dL Hospital ] in Serum or Plasma ID Date Data Source [id number] 01/08/2020 08:21:[address] [facility] TEST RESULT IS A TOTAL TRICYCLIC [...] Code Source(s) Document(s ) TRICYCLIC < 80 [place] ANTIDEPRESSANT ng/mL Hospital ID Date Data Source [id number] 01/08/2020 08:21:[address] [facility] REFERENCE RANGES: ANALGESIC: 0.0 - 10.0 MG/DL. ARTHRITIC THERAPY: 15.0 - 30.0 MG/DL. Name Value Range Interpretation Description Data Sup porting Code Source(s) Document(s ) Salicylates < 3.0 [place] [Mass/volume] mg/dL Hospital in Serum or Plasma ID Date Data Source [id number] 01/08/2020 08:21:[address] [facility] THERAPEUTIC RANGE: 10.0-30.0 UG/MLTOXIC RANGE: 4 HRS AFTER INGESTION >150 UG/ML 12 HRS AFTER INGESTION >35 UG/ML Name Value Range Interpretation Description Data Sup porting Code Source(s) Document(s ) ACETAMINOPHEN < 10.0 [place] ug/mL Hospital ID Date Data Source [id number] 01/08/2020 08:21:[address] [facility] REFERENCE RANGES: NONE DETECTED <20 MG/DL NONE TO MILD EUPHORIA 20-49 MG/DL MILD EUPHORIA 50-99 MG/DL MODERATE EUPHORIA 100-149 MG/DL INTOXICATION 150-300 MG/DL Name Value Range Interpretation Description Data Sup porting Code Source(s) Document(s ) Ethanol < 20 [place] [Mass/volume mg/dL Hospital ] in Serum or Plasma ID Date Data Source [id number] 01/08/2020 08:21:[address] [facility] TEST RESULT IS A TOTAL TRICYCLIC [...] Code Source(s) Document(s ) TRICYCLIC < 80 [place] ANTIDEPRESSANT ng/mL Hospital ID Date Data Source [id number] 01/08/2020 08:21:[address] [facility] REFERENCE RANGES: ANALGESIC: 0.0 - 10.0 MG/DL. ARTHRITIC THERAPY: 15.0 - 30.0 MG/DL. Name Value Range Interpretation Description Data Sup porting Code Source(s) Document(s ) Salicylates < 3.0 [place] [Mass/volume] mg/dL Hospital in Serum or Plasma ID Date Data Source [id number] 01/08/2020 08:21:[address] [facility] THERAPEUTIC RANGE: 10.0-30.0 UG/MLTOXIC RANGE: 4 HRS AFTER INGESTION >150 UG/ML 12 HRS AFTER INGESTION >35 UG/ML Name Value Range Interpretation Description Data Sup porting Code Source(s) Document(s ) ACETAMINOPHEN < 10.0 [place] ug/mL Hospital ID Date Data Source [id number] 01/08/2020 08:21:[address] [facility] THERAPEUTIC RANGES:UNFRACTIONATED HEPARI N THERAPY: 60-90 SECONDSARGATROBAN THERAPY: 49-99 SECONDS Name Value Range Interpretation Description Data Sup porting Code Source(s) Document(s ) aPTT in 28.1 s [place] Platelet poor [facility] plasma by Coagulation assay ID Date Data Source [id number] 01/08/2020 08:21:[address] [facility] Name Value Range Interpretation Description Data Sup porting Code Source(s) Document(s ) Sodium 146 mmol/L [place] in Serum or Plasma ID Date Data Source [id number] 01/08/2020 08:21:[address] [facility] Name Value Range Interpretation Description Data Sup porting Code Source(s) Document(s ) Glucose 189 mg/dL [place] [[facility] ] in Serum or Plasma ID Date Data Source [id number] 01/08/2020 08:21:[address] [facility] THERAPEUTIC RANGES:UNFRACTIONATED HEPARI N THERAPY: 60-90 SECONDSARGATROBAN THERAPY: 49-99 SECONDS Name Value Range Interpretation Description Data Sup porting Code Source(s) Document(s ) aPTT in 28.1 s [place] Platelet poor [facility] plasma by Coagulation assay ID Date Data Source [id number] 01/08/2020 08:21:[address] [facility] THERAPEUTIC RANGE FOR STANDARD ORALANTIC OAGULANT THERAPY: 2.0-3.0THERAPEUTIC RANGE FOR HIGH DOSE ORALANTICOAGULANT THERAPY (MECHANICAL HEARTVALVE REPLACEMENT): 2.5-3.5 Name Value Range Interpretation Description Data Sup porting Code Source(s) Document(s ) INR in Platelet 1.0 [place] poor plasma by Hospital Coagulation assay ID Date Data Source [id number] 01/08/2020 08:21:[address] [facility] Name Value Range Interpretation Description Data Sup porting Code Source(s) Document(s ) PT panel - 11.9 s [place] Platelet poor [facility] plasma by Coagulation assay ID Date Data Source [id number] 01/08/2020 08:21:[address] [facility] Name Value Range Interpretation Code Description Data Supporting Source(s) Document(s ) NUCLEATED RBCS 0.0 % [place] (AUTO Hospital DIFF%)DIS ID Date Data Source [id number] 01/08/2020 08:21:[address] [facility] Name Value Range Interpretation Description Data Sup porting Code Source(s) Document(s ) Differential AUTOMATED [place] cell count [facility] method - Blood ID Date Data Source [id number] 01/08/2020 08:21:[address] [facility] Name Value Range Interpretation Description Data Sup porting Code Source(s) Document(s ) Immature 0.00 [place] granulocytes 10*3/uL Hospital [#/volume] in Blood by Automated count ID Date Data Source [id number] 01/08/2020 08:21:[address] [facility] Name Value Range Interpretation Description Data Sup porting Code Source(s) Document(s ) Basophils 0.02 [place] [#/volume] in 10*3/uL Hospital Blood by Automated count ID Date Data Source [id number] 01/08/2020 08:21:00 AM EDT [facility] Name Value Range Interpretation Description Data Sup porting Code Source(s) Document(s ) Eosinophils 0.30 [place] [#/volume] in 10*3/uL Hospital Blood by Automated count ID Date Data Source [id number] 01/08/2020 08:21:00 AM EDT [facility] Value Range Interpretation Description Data Sup porting Code Source(s) Document(s ) Monocytes 0.46 [place] [#/volume] in 10*3/uL Hospital Blood by Automated count ID Date Data Source [id number] 01/08/2020 08:21:00 AM EDT [facility] Value Range Interpretation Description Data Sup porting Code Source(s) Document(s ) Lymphocytes 1.76 [place] [#/volume] in 10*3/uL Hospital Blood by Automated count ID Date Data Source [id number] 01/08/2020 08:21:00 AM EDT [facility] Value Range Interpretation Description Data Sup porting Code Source(s) Document(s ) Neutrophils 0.75 [place] [#/volume] in 10*3/uL [facility] Blood by Automated count ID Date Data Source [id number] 01/08/2020 08:21:00 AM EDT [facility] Value Range Interpretation Description Data Sup porting Code Source(s) Document(s ) Nucleated 0.0 % [place] erythrocytes/10 Hospital 0 leukocytes [Ratio] in Blood by Automated count ID Date Data Source [id number] 01/08/2020 08:21:00 AM EDT [facility] Value Range Interpretation Description Data Sup porting Code Source(s) Document(s ) Immature 0.0 % [place] granulocytes/10 Hospital 0 leukocytes in Blood by Automated count ID Date Data Source [id number] 01/08/2020 08:21:00 AM EDT [facility] Name Value Range Interpretation Description Data Sup porting Code Source(s) Document(s ) Basophils/100 0.6 % [place] leukocytes in Hospital Blood by Automated count ID Date Data Source [id number] 01/08/2020 08:21:00 AM EDT [facility] Name Value Range Interpretation Description Data Sup porting Code Source(s) Document(s ) Eosinophils/100 9.1 % [place] leukocytes in Hospital Blood by Automated count ID Date Data Source [id number] 01/08/2020 08:21:00 AM EDT [facility] Value Range Interpretation Description Data Sup porting Code Source(s) Document(s ) Monocytes/100 14.0 % [place] leukocytes in Hospital Blood by Automated count ID Date Data Source [id number] 01/08/2020 08:21:00 AM EDT [facility] Name Value Range Interpretation Description Data Sup porting Code Source(s) Document(s ) Lymphocytes/10 53.5 % [place] 0 leukocytes Hospital in Blood by Automated count ID Date Data Source [id number] 01/08/2020 08:21:00 AM EDT [facility] Value Range Interpretation Description Data Sup porting Code Source(s) Document(s ) Neutrophils/10 22.8 % [place] 0 leukocytes [facility] in Blood by Automated count ID Date Data Source [id number] 01/08/2020 08:21:00 AM EDT [facility] Value Range Interpretation Description Data Sup porting Code Source(s) Document(s ) Platelet mean 12.1 fL [place] volume [facility] [Entitic volume] in Blood by Automated count ID Date Data Source [id number] 01/08/2020 08:21:00 AM EDT [facility] Name Value Range Interpretation Description Data Sup porting Code Source(s) Document(s ) Platelets 174 [place] [#/volume] in 10*3/uL Hospital Blood by Automated count ID Date Data Source [id number] 01/08/2020 08:21:00 AM EDT [facility] Value Range Interpretation Description Data Sup porting Code Source(s) Document(s ) Erythrocyte 14.6 % [place] distribution Hospital width [Ratio] by Automated count ID Date Data Source [id number] 01/08/2020 08:21:00 AM EDT [facility] Value Range Interpretation Description Data Sup porting Code Source(s) Document(s ) Erythrocyte mean 32.4 [place] corpuscular g/dL Hospital hemoglobin concentration [Mass/volume] by Automated count ID Date Data Source [id number] 01/08/2020 08:21:00 AM EDT [facility] Value Range Interpretation Description Data Sup porting Code Source(s) Document(s ) Erythrocyte 30.1 pg [facility] corpuscular hemoglobin [Entitic mass] by Automated count ID Date Data Source [id number] 01/08/[facility] Interpretation Description Data Sup porting Code Source(s) Document(s ) Erythrocyte 92.9 fL [facility] corpuscular volume [Entitic volume] by Automated count ID Date Data Source [id number] 01/08/2020 08[facility] Interpretation Description Data Sup porting Code Source(s) Document(s ) Hematocrit 34.0 % [place] [Volume Hospital Fraction] of Blood by Automated count ID Date Data Source [id number] 01/08/2020 08[facility] Value Range Interpretation Description Data Sup porting Code Source(s) Document(s ) Hemoglobin 11.0 g/dL [place] [Mass/volume] Hospital in Blood ID Date Data Source [id number] 01/08/2020 08:21:00 AM EDT [facility] Value Range Interpretation Description Data Sup porting Code Source(s) Document(s ) Erythrocytes 3.66 [place] [#/volume] in 10*6/uL Hospital Blood by Automated count ID Date Data Source [id number] 01/08/2020 08:21:00 AM EDT [facility] Value Range Interpretation Description Data Sup porting Code Source(s) Document(s ) Leukocytes 3.3 [place] [#/volume] in 10*3/uL Hospital Blood by Automated count ID Date Data Source [id number] 01/08/2020 08:20:00 AM EDT [facility] Value Range Interpretation Code Description Data Bryanna rce(s) Supporting Document(s ) READ BACK Yes/ [facility] ID Date Data Source [id number] 01/08/2020 08:20:00 AM EDT [facility] Value Range Interpretation Code Description Data Bryanna rce(s) Supporting Document(s ) NOTE WHO DR GAY [facility] ID Date Data Source [id number] 01/08/2020 08:20:00 AM EDT [facility] Value Range Interpretation Description Data Sup porting Code Source(s) Document(s ) IONIZED 1.25 [place] CALCIUM mmol/L Hospital ID Date Data Source [id number] 01/08/2020 08:20:00 AM EDT [facility] Value Range Interpretation Code Description Data Supporting Source(s) Document(s ) METHEMOGLOBIN 0.6 % [facility] ID Date Data Source [id number] 01/08/2020 08:20:00 AM EDT [facility] Name Value Range Interpretation Description Data Sup porting Code Source(s) Document(s ) CARBOXYHEMOGLOBIN 0.8 % [facility] ID Date Data Source [id number] 01/08/2020 08:20:00 AM EDT [facility] Value Range Interpretation Code Description Data Bryanna rce(s) Supporting Document(s ) ABG TEMP 98.0 [facility] ID Date Data Source [id number] 01/08/2020 08:20:00 AM EDT [facility] Value Range Interpretation Code Description Data Bryanna rce(s) Supporting Document(s ) FIO2 21 % [facility] ID Date Data Source [id number] 01/08/2020 08:20:00 AM EDT [facility] Value Range Interpretation Code Description Data Bryanna rce(s) Supporting Document(s ) ABG BE 0.6 mmol/L [facility] ID Date Data Source [id number] 01/08/2020 08:20:00 AM EDT [facility] Value Range Interpretation Code Description Data Bryanna rce(s) Supporting Document(s ) ABG O2SAT 92 % [facility] ID Date Data Source [id number] 01/08/2020 08:20:00 AM EDT [facility] Value Range Interpretation Code Description Data Bryanna rce(s) Supporting Document(s ) ABG HCO3 25 mmol/L [facility] ID Date Data Source [id number] 01/08/2020 08:20:00 AM EDT [facility] Value Range Interpretation Code Description Data Bryanna rce(s) Supporting Document(s ) ABG PO2 64 mm[Hg] [facility] ID Date Data Source [id number] 01/08/2020 08:20:00 AM EDT [facility] Value Range Interpretation Code Description Data Bryanna rce(s) Supporting Document(s ) ABG PCO2 39 mm[Hg] [facility] ID Date Data Source [id number] 01/08/2020 08:20:00 AM EDT [facility] Value Range Interpretation Code Description Data Bryanna rce(s) Supporting Document(s ) ABG PH 7.42 [facility] ID Date Data Source [id number] 01/08/2020 08:20:00 AM EDT [facility] Value Range Interpretation Code Description Data Bryanna rce(s) Supporting Document(s ) JORGE TEST POSITIVE [facility] ID Date Data Source [id number] 01/08/2020 08:20:00 AM EDT [facility] Value Range Interpretation Code Description Data Bryanna rce(s) Supporting Document(s ) READ BACK Yes/MD [facility] ID Date Data Source [id number] 01/08/2020 08:20:00 AM EDT [facility] Value Range Interpretation Code Description Data Bryanna rce(s) Supporting Document(s ) NOTE WHO DR GAY [facility] ID Date Data Source [id number] 01/08/2020 08:20:00 AM EDT [facility] Value Range Interpretation Description Data Sup porting Code Source(s) Document(s ) IONIZED 1.25 [place] CALCIUM mmol/L Hospital ID Date Data Source [id number] 01/08/2020 08:20:00 AM EDT [facility] Value Range Interpretation Code Description Data Supporting Source(s) Document(s ) METHEMOGLOBIN 0.6 % [facility] ID Date Data Source [id number] 01/08/2020 08:20:00 AM EDT [facility] Name Value Range Interpretation Description Data Sup porting Code Source(s) Document(s ) CARBOXYHEMOGLOBIN 0.8 % [facility] ID Date Data Source [id number] 01/08/2020 08:20:00 AM EDT [facility] Value Range Interpretation Code Description Data Bryanna rce(s) Supporting Document(s ) ABG TEMP 98.0 [facility] ID Date Data Source [id number] 01/08/2020 08:20:00 AM EDT [facility] Value Range Interpretation Code Description Data Bryanna rce(s) Supporting Document(s ) FIO2 21 % [facility] ID Date Data Source [id number] 01/08/2020 08:20:00 AM EDT [facility] Value Range Interpretation Code Description Data Bryanna rce(s) Supporting Document(s ) ABG BE 0.6 mmol/L [facility] ID Date Data Source [id number] 01/08/2020 08:20:00 AM EDT [facility] Value Range Interpretation Code Description Data Bryanna rce(s) Supporting Document(s ) ABG O2SAT 92 % [facility] ID Date Data Source [id number] 01/08/2020 08:20:00 AM EDT [facility] Value Range Interpretation Code Description Data Bryanna rce(s) Supporting Document(s ) ABG HCO3 25 mmol/L [facility] ID Date Data Source [id number] 01/08/2020 08:20:00 AM EDT [facility] Value Range Interpretation Code Description Data Bryanna rce(s) Supporting Document(s ) ABG PO2 64 mm[Hg] [facility] ID Date Data Source [id number] 01/08/2020 08:20:00 AM EDT [facility] Name Value Range Interpretation Code Description Data Bryanna rce(s) Supporting Document(s ) ABG PCO2 39 mm[Hg] [facility] ID Date Data Source [id number] 01/08/2020 08:20:00 AM EDT [facility] Name Value Range Interpretation Code Description Data Bryanna rce(s) Supporting Document(s ) ABG PH 7.42 [facility] ID Date Data Source [id number] 01/08/2020 08:20:00 AM EDT [facility] Value Range Interpretation Code Description Data Bryanna rce(s) Supporting Document(s ) JORGE TEST POSITIVE [facility] ID Date Data Source [id number] 01/08/2020 08:04:00 AM EDT [facility] Name Value Range Interpretation Description Data Sup porting Code Source(s) Document(s ) Arthrop[employer] White Identification ANAI [facility] (BED BUG) Hospital ID Date Data Source [id number] 01/08/2020 08:04:00 AM EDT [facility] Value Range Interpretation Description Data Sup porting Code Source(s) Document(s ) Arthropoda [employer] White Identification LECTKAIDENIUS [facility] (BED BUG) Hospital ID Date Data Source [id number] 01/08/2020 08:04:00 AM EDT [facility] Name Value Range Interpretation Description Data Sup porting Code Source(s) Document(s ) Arthropoda [employer] White Identification LECTKAIDENIUS [facility] (BED BUG) Hospital ID Date Data Source [id number] 01/08/2020 07:47:00 AM EDT [facility] Name Value Range Interpretation Description Data Sup porting Code Source(s) Document(s ) Bacteria No growth [place] identified in Hospital Blood by Culture ID Date Data Source [id number] 01/08/2020 07:47:00 AM EDT [facility] Value Range Interpretation Description Data Sup porting Code Source(s) Document(s ) Bacteria No growth [place] identified in Hospital Blood by Culture ID Date Data Source [id number] 01/08/2020 07:20:00 AM EDT [facility] Value Range Interpretation Description Data Sup porting Code Source(s) Document(s ) GLUCOSE RN Notified [facility] ID Date Data Source [id number] 01/08/2020 07:20:00 AM EDT [facility] Value Range Interpretation Description Data Sup porting Code Source(s) Document(s ) GLUCOSE RN Notified [facility] ID Date Data Source [id number] 2020 07:11:00 PM EDT [facility] Value Range Interpretation Description Data Sup porting Code Source(s) Document(s ) Calcium 8.6 mg/dL [place] [Mass/volume Hospital ] in Serum or Plasma ID Date Data Source [id number] [facility] Interpretation Code Description Data Bryanna rce(s) Supporting Document(s ) Urea 10.0 [place] nitrogen/Cre Hospital atinine [Mass Ratio] in Serum or Plasma ID Date Data Source [id number] 2020 [facility] Value [facility] Interpretation Description Data Sup porting Code Source(s) Document(s ) Creatinine 0.9 mg/dL [place] [Mass/volume] Hospital in Serum or Plasma ID Date Data Source [id number] 2020 07:11:00 PM EDT [facility] Value Range Interpretation Description Data Sup porting Code Source(s) Document(s ) Urea nitrogen 9 mg/dL [place] [Mass/volume] Hospital in Serum or Plasma ID Date Data Source [id number] 2020 07:11:00 PM EDT [facility] Name Value Range Interpretation Code Description Data Bryanna rce(s) Supporting Document(s ) Anion gap in 18 [place] Serum or [facility] Plasma ID Date Data Source [id number] 2020 07:11:00 PM EDT [facility] Name Value Range Interpretation Description Data Sup porting Code Source(s) Document(s ) Carbon 23 mmol/L [place] dioxide, Hospital total [Moles/volu me] in Serum or Plasma ID Date Data Source [id number] 2020 07:11:00 PM EDT [facility] Value Range Interpretation Description Data Sup porting Code Source(s) Document(s ) Chloride 100 [place] [Moles/volum mmol/L Hospital e] in Serum or Plasma ID Date Data Source [id number] 2020 07:11:00 PM EDT [facility] Value Range Interpretation Description Data Sup porting Code Source(s) Document(s ) Potassium 3.8 [place] [Moles/volume mmol/L Hospital ] in Serum or Plasma ID Date Data Source [id number] 2020 07:11:00 PM EDT [facility] Name Value Range Interpretation Description Data Sup porting Code Source(s) Document(s ) Sodium 137 mmol/L [place] [Moles/volu Hospital me] in Serum or Plasma ID Date Data Source [id number] 2020 07:11:00 PM EDT [facility] Name Value Range Interpretation Description Data Sup porting Code Source(s) Document(s ) Glucose 394 mg/dL [place] [Mass/volume Hospital ] in Serum or Plasma ID Date Data Source [id number] [facility]YOLANDE DA SILVA Name Value Range Interpretation Description Data Sup porting Code Source(s) Document(s ) Glucose 491 mg/dL [place] [Mass/volume] Hospital in Capillary blood by Glucometer ID Date Data Source [id number] 2020 04:11:00 PM EDT [facility] Name Value Range Interpretation Description Data Sup porting Code Source(s) Document(s ) Leukocyte NEGATIVE [place] esterase Hospital [Presence] in Urine by Test strip ID Date Data Source [id number] 2020 04:11:00 PM EDT [facility] Name Value Range Interpretation Description Data Sup porting Code Source(s) Document(s ) URINE NEGATIVE [facility] Hospital ID Date Data Source [id number] 2020 04:11:00 PM EDT [facility] Name Value Range Interpretation Description Data Sup porting Code Source(s) Document(s ) Erythrocytes NEGATIVE [place] [#/volume] in Hospital Urine by Test strip ID Date Data Source [id number] 2020 04:11:00 PM EDT [facility] Name Value Range Interpretation Code Description Data Bryanna rce(s) Supporting Document(s ) Bilirubin. NEGATIVE [place] total Hospital [Presence] in Urine by Test strip ID Date Data Source [id number] 2020 04:11:00 PM EDT [facility] Name Value Range Interpretation Description Data Sup porting Code Source(s) Document(s ) Urobilinogen 0.2 [place] [Units/volume] mg/dL Hospital in Urine by Test strip ID Date Data Source [id number] 2020 04:11:00 PM EDT [facility] Name Value Range Interpretation Code Description Data Bryanna rce(s) Supporting Document(s ) Ketones 1+ [place] [Mass/volume Hospital ] in Urine by Test strip ID Date Data Source [id number] 2020 04:11:00 PM EDT [facility] Name Value Range Interpretation Code Description Data Bryanna rce(s) Supporting Document(s ) Glucose 3+ [place] [Mass/volume Hospital ] in Urine by Test strip ID Date Data Source [id number] 2020 04:11:00 PM EDT [facility] Name Value Range Interpretation Description Data Sup porting Code Source(s) Document(s ) Protein NEGATIVE [place] [Presence] Hospital in Urine by Test strip ID Date Data Source [id number] 2020 04:11:00 PM EDT [facility] Name Value Range Interpretation Code Description Data Bryanna rce(s) Supporting Document(s ) pH of Urine 5.5 [place] by Test Hospital strip ID Date Data Source [id number] 2020 04:11:00 PM EDT [facility] Name Value Range Interpretation Code Description Data Supporting Source(s) Document(s ) Specific 1.043 [place] gravity of Hospital Urine by Test strip ID Date Data Source [id number] 2020 04:11:00 PM EDT [place] [facility] Name Value Range Interpretation Description Data Sup porting Code Source(s) Document(s ) Clarity in Urine CLEAR [place] by [facility] automated ID Date Data Source [id number] 2020 04:11:00 PM EDT [facility] Name Value Range Interpretation Code Description Data Bryanna rce(s) Supporting Document(s ) Color of YELLOW [place] Urine Hospital ID Date Data Source [id number] 2020 03:51:00 PM EDT [facility] Value Range Interpretation Code Description Data Supporting Source(s) Document(s ) NUCLEATED RBCS 0.0 % [place] (AUTO Hospital DIFF%)DIS ID Date Data Source [id number] 2020 03:51:00 PM EDT [facility] Value Range Interpretation Description Data Sup porting Code Source(s) Document(s ) Differential AUTOMATED [place] cell count [facility] method - Blood ID Date Data Source [id number] 2020 03:51:00 PM EDT [facility] Value Range Interpretation Description Data Sup porting Code Source(s) Document(s ) Immature 0.00 [place] granulocytes 10*3/uL Hospital [#/volume] in Blood by Automated count ID Date Data Source [id number] 2020 03:51:00 PM EDT [facility] Name Value Range Interpretation Description Data Sup porting Code Source(s) Document(s ) Basophils 0.02 [place] [#/volume] in 10*3/uL Hospital Blood by Automated count ID Date Data Source [id number] 2020 03:51:00 PM EDT [facility] Name Value Range Interpretation Description Data Sup porting Code Source(s) Document(s ) Eosinophils 0.04 [place] [#/volume] in 10*3/uL Hospital Blood by Automated count ID Date Data Source [id number] 2020 03:51:00 PM EDT [facility] Name Value Range Interpretation Description Data Sup porting Code Source(s) Document(s ) Monocytes 0.28 [place] [#/volume] in 10*3/uL Hospital Blood by Automated count ID Date Data Source [id number] 2020 03:51:00 PM EDT [facility] Name Value Range Interpretation Description Data Sup porting Code Source(s) Document(s ) Lymphocytes 1.26 [place] [#/volume] in 10*3/uL Hospital Blood by Automated count ID Date Data Source [id number] 2020 03:51:00 PM EDT [facility] Value Range Interpretation Description Data Sup porting Code Source(s) Document(s ) Neutrophils 1.42 [place] [#/volume] in 10*3/uL Hospital Blood by Automated count ID Date Data Source [id number] 2020 03:51:00 PM EDT [facility] Value Range Interpretation Description Data Sup porting Code Source(s) Document(s ) Nucleated 0.0 % [place] erythrocytes/10 Hospital 0 leukocytes [Ratio] in Blood by Automated count ID Date Data Source [id number] 2020 03:51:00 PM EDT [facility] Value Range Interpretation Description Data Sup porting Code Source(s) Document(s ) Immature 0.0 % [place] granulocytes/10 Hospital 0 leukocytes in Blood by Automated count ID Date Data Source [id number] 2020 03:51:00 PM EDT [facility] Value Range Interpretation Description Data Sup porting Code Source(s) Document(s ) Basophils/100 0.7 % [place] leukocytes in Hospital Blood by Automated count ID Date Data Source [id number] 2020 03:51:00 PM EDT [facility] Value Range Interpretation Description Data Sup porting Code Source(s) Document(s ) Eosinophils/100 1.3 % [place] leukocytes in Hospital Blood by Automated count ID Date Data Source [id number] 2020 03:51:00 PM EDT [facility] [facility] Name Value Range Interpretation Description Data Sup porting Code Source(s) Document(s ) Monocytes/100 9.3 % [place] leukocytes in Hospital Blood by Automated count ID Date Data Source [id number] 2020 03:51:00 PM EDT [facility] Name Value Range Interpretation Description Data Sup porting Code Source(s) Document(s ) Lymphocytes/10 41.7 % [place] 0 leukocytes Hospital in Blood by Automated count ID Date Data Source [id number] 2020 03:51:00 PM EDT [facility] Value Range Interpretation Description Data Sup porting Code Source(s) Document(s ) Neutrophils/10 47.0 % [place] 0 leukocytes Hospital in Blood by Automated count ID Date Data Source [id number] 2020 03:51:00 PM EDT [facility] Name Value Range Interpretation Description Data Sup porting Code Source(s) Document(s ) Platelet mean 12.[address] [facility] [Entitic volume] in Blood by Automated count ID Date Data Source [id number] 2020 03:51:00 PM EDT [facility] Value Range Interpretation Description Data Sup porting Code Source(s) Document(s ) Platelets 154 [place] [#/volume] in 10*3/uL Hospital Blood by Automated count ID Date Data Source [id number] 2020 03:51:00 PM EDT [facility] Value Range Interpretation Description Data Sup porting Code Source(s) Document(s ) Erythrocyte 14.2 % [place] distribution Hospital width [Ratio] by Automated count ID Date Data Source [id number] 2020 03:51:00 PM EDT [facility] Name Value Range Interpretation Description Data Sup porting Code Source(s) Document(s ) Erythrocyte mean 35.0 [place] corpuscular g/dL Hospital hemoglobin concentration [Mass/volume] by Automated count ID Date Data Source [id number] 2020 03:51:[address] [facility] Name Value Range Interpretation Description Data Sup porting Code Source(s) Document(s ) Erythrocyte 30.3 pg [facility] corpuscular hemoglobin [Entitic mass] by Automated count ID Date Data Source [id number] 2020 03:51:[address] [facility] THIS TEST RESULT HAS BEEN CONFIRMED BY R EPEAT ANALYSIS. Name Value Range Interpretation Description Data Sup porting Code Source(s) Document(s ) Erythrocyte 86.6 fL [facility] corpuscular volume [Entitic volume] by Automated count ID Date Data Source [id number] 2020 03:51:00 PM [facility] Value Range Interpretation Description Data Sup porting Code Source(s) Document(s ) Hematocrit 32.3 % [place] [Volume Hospital Fraction] of Blood by Automated count ID Date Data Source [id number] 2020 03:51:[address] [facility] Name Value Range Interpretation Description Data Sup porting Code Source(s) Document(s ) Hemoglobin 11.3 g/dL [place] [Mass/volume] Hospital in Blood ID Date Data Source [id number] 2020 03:51:[address] [facility] Name Value Range Interpretation Description Data Sup porting Code Source(s) Document(s ) Erythrocytes 3.73 [place] [#/volume] in 10*6/uL Hospital Blood by Automated count ID Date Data Source [id number] 2020 03:51:[address] [facility] Name Value Range Interpretation Description Data Sup porting Code Source(s) Document(s ) Leukocytes 3.0 [place] [#/volume] in 10*3/uL Hospital Blood by Automated count ID Date Data Source [id number] 12/29/2019 03:18:00 PM EDT [facility] Test Performed by:[facility] [place] [id number] Directo r: Mukesh Rudolph M.D. Ph.D.; CLIA# [id number] Name Value Range Interpretation Code Description Data Bryanna rce(s) Supporting Document(s ) ALPHA-1-A 107 mg/dL [facility] N ID Date Data Source [id number] 12/29/2019 03:18:00 PM EDT [facility] HCV RNA QUANTITATION BY OZZIE DIANE Ampl iPrep/DIANE TaqMan HCV TEST v2.0. Name Value Range Interpretation Description Data Sup porting Code Source(s) Document(s ) Hepatitis C 0.00 [place] virus RNA [log {copies} Hospital units/volume] /mL (viral load) in Serum or Plasma by Probe and target amplification method ID Date Data Source [id number] 12/29/2019 03:18:00 PM EDT [facility] NO VIRUS DETECTED. Name Value Range Interpretation Description Data Sup porting Code Source(s) Document(s ) Hepatitis C 0 [place] virus RNA [IU]/mL Hospital [Units/volume] (viral load) in Serum or Plasma by Probe and target amplification method ID Date Data Source [id number] 12/29/2019 03:18:00 PM EDT [facility] Name Value Range Interpretation Description Data Sup porting Code Source(s) Document(s ) Hepatitis B NON-REACT [place] virus core Ab [facility] [Presence] in Serum ID Date Data Source [id number] 12/29/2019 03:18:00 PM EDT [facility] Name Value Range Interpretation Description Data Sup porting Code Source(s) Document(s ) Hepatitis A NON-REACT [place] virus IgM Ab [facility] [Presence] in Serum ID Date Data Source [id number] 12/29/2019 03:18:00 PM EDT [facility] Name Value Range Interpretation Description Data Sup porting Code Source(s) Document(s ) Hepatitis A REACTIVE [place] virus Ab Hospital [Presence] in Serum ID Date Data Source [id number] 12/29/2019 03:18:00 PM EDT [facility] Name Value Range Interpretation Description Data Sup porting Code Source(s) Document(s ) Hepatitis B NON-REACT [place] virus surface [facility] Ab [Presence] in Serum ID Date Data Source [id number] 12/29/2019 03:18:00 PM EDT [facility] Name Value Range Interpretation Description Data Sup porting Code Source(s) Document(s ) Hepatitis B NON-REACT [place] virus surface [facility] Ag [Presence] in Serum ID Date Data Source [id number] 12/29/2019 03:18:00 PM EDT [facility] Name Value Range Interpretation Description Data Sup porting Code Source(s) Document(s ) Ferritin 67.0 [place] [Mass/volume ng/mL Hospital ] in Serum or Plasma ID Date Data Source [id number] 12/29/2019 03:18:00 PM EDT [facility] Name Value Range Interpretation Description Data Sup porting Code Source(s) Document(s ) Iron saturation 12 % [place] [Mass Fraction] Hospital in Serum or Plasma ID Date Data Source [id number] 12/29/2019 03:18:00 PM EDT [facility] Name Value Range Interpretation Description Data Sup porting Code Source(s) Document(s ) UNSAT IRON 309 ug/dL [facility] CAPACITY ID Date Data Source [id number] 12/29/2019 03:18:00 PM EDT [facility] Name Value Range Interpretation Description Data Sup porting Code Source(s) Document(s ) Iron binding 355 ug/dL [facility] Hospital [Mass/volume ] in Serum or Plasma ID Date Data Source [id number] 12/29/2019 03:18:00 PM EDT [facility] Name Value Range Interpretation Code Description Data Supporting Source(s) Document(s ) Iron 46 ug/dL [place] [Mass/volum Hospital e] in Serum or Plasma ID Date Data Source [id number] 12/29/2019 03:18:00 PM EDT [facility] NOTE: NEW METHODOLOGY ,EFFECTIVE 8.TEST PERFORMED BY [employer] CHEMILUMINESCENCE LOCI TECHNOLOGY.REFERE NCE RANGE APPLIES TO MALES AND NON- FEMALES ONLY.AFP TUMOR MARKER IS NOT TO BE USED A DIAGNOSTIC TOOL WITHOUT CLINICAL EVALUATION. THE ASSAY SHOULD NOT BE USED A SCREENING TEST FOR MALIGNANCY. VALUES OBTAINED WIT H DIFFERENT ASSAY METHODS OR HEATER HELPER FORGE KITS CANNOT BE USED INTERCHANGEABLY.RESU LTS CANNOT BE INTERPRETED A TUMOR MARKER IN FEMALES. Name Value Range Interpretation Description Data Sup porting Code Source(s) Document(s ) Alpha-1-fet 36.6 ng/mL [place] oprotein.[facility] mor marker [Mass/volum e] in Serum or Plasma ID Date Data Source [id number] 12/29/2019 03:18:00 PM EDT [facility] Name Value Range Interpretation Description Data Sup porting Code Source(s) Document(s ) Bilirubin.d 0.3 mg/dL [facility] Hospital [Mass/volum e] in Serum or Plasma ID Date Data Source [id number] 12/29/2019 03:18:00 PM EDT [facility] Test Performed by:[facility], [place] [address]Ggn Directo r: Mukesh Rudolph M.D. Ph.D.; IA# [id number] Name Value Range Interpretation Code Description Data Bryanna rce(s) Supporting Document(s ) ALPHA-1-A 107 mg/dL [facility] N ID Date Data Source [id number] 12/29/2019 03:18:00 PM EDT [facility] HCV RNA QUANTITATION BY OZZIE DIANE Ampl iPrep/DIANE TaqMan HCV TEST v2.0. Name Value Range Interpretation Description Data Sup porting Code Source(s) Document(s ) Hepatitis C 0.00 [place] virus RNA [log {copies} Hospital units/volume] /mL (viral load) in Serum or Plasma by Probe and target amplification method ID Date Data Source [id number] 12/29/2019 03:18:00 PM EDT [facility] NO VIRUS DETECTED. Name Value Range Interpretation Description Data Sup porting Code Source(s) Document(s ) Hepatitis C 0 [place] virus RNA [IU]/mL Hospital [Units/volume] (viral load) in Serum or Plasma by Probe and target amplification method ID Date Data Source [id number] 12/29/2019 03:18:00 PM EDT [facility] Name Value Range Interpretation Description Data Sup porting Code Source(s) Document(s ) Hepatitis B NON-REACT [place] virus core Ab [facility] [Presence] in Serum ID Date Data Source [id number] 12/29/2019 03:18:00 PM EDT [facility] Name Value Range Interpretation Description Data Sup porting Code Source(s) Document(s ) Hepatitis A NON-REACT [place] virus IgM Ab [facility] [Presence] in Serum ID Date Data Source [id number] 12/29/2019 03:18:00 PM EDT [facility] Name Value Range Interpretation Description Data Sup porting Code Source(s) Document(s ) Hepatitis A REACTIVE [place] virus Ab Hospital [Presence] in Serum ID Date Data Source [id number] 12/29/2019 03:18:00 PM EDT [facility] Name Value Range Interpretation Description Data Sup porting Code Source(s) Document(s ) Hepatitis B NON-REACT [place] virus surface [facility] Ab [Presence] in Serum ID Date Data Source [id number] 12/29/2019 03:18:00 PM EDT [facility] Name Value Range Interpretation Description Data Sup porting Code Source(s) Document(s ) Hepatitis B NON-REACT [place] virus surface [facility] Ag [Presence] in Serum ID Date Data Source [id number] 12/29/2019 03:18:00 PM EDT [facility] Name Value Range Interpretation Description Data Sup porting Code Source(s) Document(s ) Ferritin 67.0 [place] [Mass/volume ng/mL Hospital ] in Serum or Plasma ID Date Data Source [id number] 12/29/2019 03:18:00 PM EDT [facility] Name Value Range Interpretation Description Data Sup porting Code Source(s) Document(s ) Iron saturation 12 % [place] [Mass Fraction] Hospital in Serum or Plasma ID Date Data Source [id number] 12/29/2019 03:18:00 PM EDT [facility] Name Value Range Interpretation Description Data Sup porting Code Source(s) Document(s ) UNSAT IRON 309 ug/dL [place] [facility] CAPACITY ID Date Data Source [id number] 12/29/2019 03:18:00 PM EDT [facility] Name Value Range Interpretation Description Data Sup porting Code Source(s) Document(s ) Iron binding 355 ug/dL [facility] Hospital [Mass/volume ] in Serum or Plasma ID Date Data Source [id number] 12/29/2019 03:18:[address] [facility] Name Value Range Interpretation Code Description Data Supporting Source(s) Document(s ) Iron 46 ug/dL [place] [Mass/volum Hospital e] in Serum or Plasma ID Date Data Source [id number] 12/29/2019 03:18:[address] [facility] NOTE: NEW METHODOLOGY ,EFFECTIVE 8.TEST PERFORMED BY [employer] CHEMILUMINESCENCE LOCI TECHNOLOGY.REFERE NCE RANGE APPLIES TO MALES AND NON- FEMALES ONLY.AFP TUMOR MARKER IS NOT TO BE USED A DIAGNOSTIC TOOL WITHOUT CLINICAL EVALUATION. THE ASSAY SHOULD NOT BE USED A SCREENING TEST FOR MALIGNANCY. VALUES OBTAINED WIT H DIFFERENT ASSAY METHODS OR HEATER HELPER FORGE KITS CANNOT BE USED INTERCHANGEABLY.RESU LTS CANNOT BE INTERPRETED A TUMOR MARKER IN FEMALES. Name Value Range Interpretation Description Data Sup porting Code Source(s) Document(s ) Alpha-1-fet 36.6 ng/mL [place] oprotein. Hospital mor marker [Mass/volum e] in Serum or Plasma ID Date Data Source [id number] 12/29/2019 03:18:[address] [facility] Name Value Range Interpretation Description Data Sup porting Code Source(s) Document(s ) Magnesium 2.0 mg/dL [place] [Mass/volume] Hospital in Serum or Plasma ID Date Data Source [id number] 12/29/2019 03:18:[address] [facility] Name Value Range Interpretation Description Data Sup porting Code Source(s) Document(s ) Aspartate 39 U/L White aminotransferase [facility] [Enzymatic Hospital activity/volume] in Serum or Plasma ID Date Data Source [id number] 12/29/2019 03:18:[address] [facility] Name Value Range Interpretation Description Data Sup porting Code Source(s) Document(s ) Alanine 29 U/L [facility] aminotransferase [facility] [Enzymatic Hospital activity/volume] in Serum or Plasma ID Date Data Source [id number] 12/29/2019 03:18:00 PM EDT [facility] Name Value Range Interpretation Description Data Sup porting Code Source(s) Document(s ) Alkaline 110 U/L [place] phosphatase Hospital [Enzymatic activity/volume ] in Serum or Plasma ID Date Data Source [id number] 12/29/2019 03:18:00 PM EDT [facility] Name Value Range Interpretation Description Data Sup porting Code Source(s) Document(s ) Bilirubin.d 0.3 mg/dL [facility] [Mass/volum e] in Serum or Plasma ID Date Data Source [id number] 12/29/2019 03:18:00 PM EDT [facility] Name Value Range Interpretation Description Data Sup porting Code Source(s) Document(s ) Bilirubin.t 0.8 mg/dL [facility] [Mass/volum e] in Serum or Plasma ID Date Data Source [id number] 12/29/2019 03:18:00 PM EDT [facility] Name Value Range Interpretation Code Description Data Bryanna rce(s) Supporting Document(s ) Albumin/Glob 1.1 [place] ulin [Mass Hospital Ratio] in Serum or Plasma ID Date Data Source [id number] 12/29/2019 03:18:00 PM EDT [facility] Name Value Range Interpretation Description Data Sup porting Code Source(s) Document(s ) Albumin 3.8 g/dL [place] [Mass/volume Hospital ] in Serum or Plasma ID Date Data Source [id number] 12/29/2019 03:18:00 PM EDT [facility] Name Value Range Interpretation Description Data Sup porting Code Source(s) Document(s ) Protein 7.3 g/dL [place] [Mass/volume Hospital ] in Serum or Plasma ID Date Data Source [id number] 12/29/2019 03:18:00 PM EDT [facility] THERAPEUTIC RANGE FOR STANDARD ORALANTIC OAGULANT THERAPY: 2.0-3.0THERAPEUTIC RANGE FOR HIGH DOSE ORALANTICOAGULANT THERAPY (MECHANICAL HEARTVALVE REPLACEMENT): 2.5-3.5 Name Value Range Interpretation Description Data Sup porting Code Source(s) Document(s ) INR in Platelet 1.0 [place] poor plasma by Hospital Coagulation assay ID Date Data Source [id number] 12/29/2019 03:18:00 PM EDT [facility] Name Value Range Interpretation Description Data Sup porting Code Source(s) Document(s ) PT panel - 11.4 s [place] Platelet poor [facility] plasma by Coagulation assay ID Date Data Source [id number] 12/29/2019 03:18:00 PM EDT [facility] Test Performed by:[facility] [address] [id number] Directo r: Mukesh Rudolph M.D. Ph.D.; CLIA# [id number] Name Value Range Interpretation Code Description Data Bryanna rce(s) Supporting Document(s ) ALPHA-1-A 107 mg/dL [place] [facility] Date Data Source [id number] 12/29/2019 03:18:00 PM EDT [facility] HCV RNA QUANTITATION BY OZZIE DIANE Ampl iPrep/DIANE TaqMan HCV TEST v2.0. Name Value Range Interpretation Description Data Sup porting Code Source(s) Document(s ) Hepatitis C 0.00 [place] virus RNA [log {copies} Hospital units/volume] /mL (viral load) in Serum or Plasma by Probe and target amplification method ID Date Data Source [id number] 12/29/2019 03:18:[address] [facility] NO VIRUS DETECTED. Name Value Range Interpretation Description Data Sup porting Code Source(s) Document(s ) Hepatitis C 0 [place] virus RNA [IU]/mL Hospital [Units/volume] (viral load) in Serum or Plasma by Probe and target amplification method ID Date Data Source [id number] 12/29/2019 03:18:00 PM EDT [facility] Name Value Range Interpretation Description Data Sup porting Code Source(s) Document(s ) Hepatitis B NON-REACT [place] virus core Ab [facility] Hospital [Presence] in Serum ID Date Data Source [id number] 12/29/2019 [facility] Name Value Range Interpretation Description Data Sup porting Code Source(s) Document(s ) Hepatitis A NON-REACT [place] virus IgM Ab [facility] [Presence] in Serum ID Date Data Source [id number] 12/29/2019 03:18:[address] [facility] Name Value Range Interpretation Description Data Sup porting Code Source(s) Document(s ) Hepatitis A REACTIVE [place] virus Ab Hospital [Presence] in Serum ID Date Data Source [id number] 12/29/2019 [facility]:18:[facility] Name Value Range Interpretation Description Data Sup porting Code Source(s) Document(s ) Hepatitis B NON-REACT [place] virus surface [facility] [Presence] in Serum ID Date Data Source [id number] 12/29/2019 03:18:[facility] Name Value Range Interpretation Description Data Sup porting Code Source(s) Document(s ) Hepatitis B NON-REACT [place] virus surface [facility] Ag [Presence] in Serum ID Date Data Source [id number] 12/29/2019 03:18:[facility] Name Value Range Interpretation Description Data Sup porting Code Source(s) Document(s ) Ferritin 67.0 [place] [Mass/volume ng/mL Hospital ] in Serum or Plasma ID Date Data Source [id number] 12/29/2019 03:18:[address] [facility] Name Value Range Interpretation Description Data Sup porting Code Source(s) Document(s ) Iron saturation 12 % [place] [Mass Fraction] Hospital in Serum or Plasma ID Date Data Source [id number] 12/29/2019 03:18:[facility] Name Value Range Interpretation Description Data Sup porting Code Source(s) Document(s ) UNSAT IRON 309 ug/dL [place] [facility] CAPACITY ID Date Data Source [id number] 12/29/2019 03:18:[address] [facility] Name Value Range Interpretation Description Data Sup porting Code Source(s) Document(s ) Iron binding 355 ug/dL [place] capacity Hospital [Mass/volume ] in Serum or Plasma ID Date Data Source [id number] 12/29/2019 03:18:[address] [facility] Name Value Range Interpretation Code Description Data Supporting Source(s) Document(s ) Iron 46 ug/dL [place] [Mass/volum Hospital e] in Serum or Plasma ID Date Data Source [id number] 12/29/2019 03:18:[address] [facility] NOTE: NEW METHODOLOGY ,EFFECTIVE 8.TEST PERFORMED BY [employer] CHEMILUMINESCENCE LOCI TECHNOLOGY.REFERE NCE RANGE APPLIES TO MALES AND NON- FEMALES ONLY.AFP TUMOR MARKER IS NOT TO BE USED A DIAGNOSTIC TOOL WITHOUT CLINICAL EVALUATION. THE ASSAY SHOULD NOT BE USED A SCREENING TEST FOR MALIGNANCY. VALUES OBTAINED WIT H DIFFERENT ASSAY METHODS OR HEATER HELPER FORGE KITS CANNOT BE USED INTERCHANGEABLY.RESU LTS CANNOT BE INTERPRETED A TUMOR MARKER IN FEMALES. Name Value Range Interpretation Description Data Sup porting Code Source(s) Document(s ) Alpha-1-fet 36.6 ng/mL [place] oprotein.[facility] mor marker [Mass/volum e] in Serum or Plasma ID Date Data Source [id number] 12/29/2019 03:18:00 PM EDT [facility] Name Value Range Interpretation Description Data Sup porting Code Source(s) Document(s ) Bilirubin.d 0.3 mg/dL [place] [facility] [Mass/volum e] in Serum or Plasma ID Date Data Source [id number] 12/29/2019 03:18:00 [facility] Performed by:[facility] [place] [id number] Directo r: Mukesh Rudolph M.D. Ph.D.; CLIA# [id number] Name Value Range Interpretation Code Description Data Bryanna rce(s) Supporting Document(s ) ALPHA-1-A 107 mg/dL [place] [facility] N ID Date Data Source [id number] 12/29/2019 03:18:00 [facility] HCV [facility] QUANTITATION BY OZZIE DIANE Ampl iPrep/DIANE TaqMan HCV TEST v2.0. Name Value Range Interpretation Description Data Sup porting Code Source(s) Document(s ) Hepatitis C 0.00 [place] virus RNA [log {copies} Hospital units/volume] /mL (viral load) in Serum or Plasma by Probe and target amplification method ID Date Data Source [id number] 12/29/2019 03:18:[facility]IR[facility]ED. Name Value Range Interpretation Description Data Sup porting Code Source(s) Document(s ) Hepatitis C 0 [place] virus RNA [IU]/mL Hospital [Units/volume] (viral load) in Serum or Plasma by Probe and target amplification method ID Date Data Source [id number] 12/29/2019 03:18:00 PM EDT [facility] Name Value Range Interpretation Description Data Sup porting Code Source(s) Document(s ) Hepatitis B NON-REACT [place] virus core Ab [facility] [Presence] in Serum ID Date Data Source [id number] 12/29/2019 03:18:00 PM EDT [facility] Name Value Range Interpretation Description Data Sup porting Code Source(s) Document(s ) Hepatitis A NON-REACT [place] virus IgM Ab [facility] [Presence] in Serum ID Date Data Source [id number] 12/29/2019 03:18:00 PM EDT [facility] Name Value Range Interpretation Description Data Sup porting Code Source(s) Document(s ) Hepatitis A REACTIVE [place] virus Ab Hospital [Presence] in Serum ID Date Data Source [id number] 12/29/2019 03:18:00 PM EDT [facility] Name Value Range Interpretation Description Data Sup porting Code Source(s) Document(s ) Hepatitis B NON-REACT [place] virus surface [facility] [Presence] in Serum ID Date Data Source [id number] 12/29/2019 03:18:00 PM EDT [facility] Name Value Range Interpretation Description Data Sup porting Code Source(s) Document(s ) Hepatitis B NON-REACT [place] virus surface [facility] Ag [Presence] in Serum ID Date Data Source [id number] 12/29/2019 03:18:00 PM EDT [facility] Name Value Range Interpretation Description Data Sup porting Code Source(s) Document(s ) Ferritin 67.0 [place] [Mass/volume ng/mL Hospital ] in Serum or Plasma ID Date Data Source [id number] 12/29/2019 03:18:00 PM EDT [facility] Name Value Range Interpretation Description Data Sup porting Code Source(s) Document(s ) Iron saturation 12 % [place] [Mass Fraction] Hospital in Serum or Plasma ID Date Data Source [id number] 12/29/2019 03:18:00 PM EDT [facility] Name Value Range Interpretation Description Data Sup porting Code Source(s) Document(s ) UNSAT IRON 309 ug/dL [facility] Hospital CAPACITY ID Date Data Source [id number] 12/29/2019 03:18:00 PM EDT [facility] Name Value Range Interpretation Description Data Sup porting Code Source(s) Document(s ) Iron binding 355 ug/dL [facility] Hospital [Mass/volume ] in Serum or Plasma ID Date Data Source [id number] 12/29/2019 03:18:00 PM EDT [facility] Name Value Range Interpretation Code Description Data Supporting Source(s) Document(s ) Iron 46 ug/dL [place] [Mass/volum Hospital e] in Serum or Plasma ID Date Data Source [id number] 12/29/2019 03:18:00 PM EDT [facility] NOTE: NEW METHODOLOGY ,EFFECTIVE 8.TEST PERFORMED BY [employer] CHEMILUMINESCENCE [employer]I TECHNOLOGY.REFERE NCE RANGE APPLIES TO MALES AND NON- FEMALES ONLY.AFP TUMOR MARKER IS NOT TO BE USED A DIAGNOSTIC TOOL WITHOUT CLINICAL EVALUATION. THE ASSAY SHOULD NOT BE USED A SCREENING TEST FOR MALIGNANCY. VALUES OBTAINED WIT H DIFFERENT ASSAY METHODS OR HEATER HELPER FORGE KITS CANNOT BE USED INTERCHANGEABLY.RESU LTS CANNOT BE INTERPRETED A TUMOR MARKER IN FEMALES. Name Value Range Interpretation Description Data Sup porting Code Source(s) Document(s ) Alpha-1-fet 36.6 ng/mL [place] oprotein. Hospital mor marker [Mass/volum e] in Serum or Plasma ID Date Data Source [id number] 12/29/2019 03:18:[address] [facility] Name Value Range Interpretation Description Data Sup porting Code Source(s) Document(s ) Bilirubin.d 0.3 mg/dL [facility] [Mass/volum e] in Serum or Plasma ID Date Data Source [id number] 12/21/2019 08:29:[address] [facility] Informatics Analyst:TRACIE ACE Name Value Range Interpretation Description Data Sup porting Code Source(s) Document(s ) Glucose 327 mg/dL [place] [Mass/volume] [facility] in Capillary blood by Glucometer ID Date Data Source [id number] 12/21/2019 07:35:[address] [facility] CUT-OFF >= 25 NG/ML.THE FINDINGS OF [...] rce(s) Supporting Document(s ) PCP (UR) NEGATIVE [facility] ID Date Data Source [id number] 12/21/2019 07:35:[address] [facility] CUT-OFF >= 50 NG/ML. Name Value Range Interpretation Code Description Data Bryanna rce(s) Supporting Document(s ) THC (UR) NEGATIVE [facility] ID Date Data Source [id number] 12/21/2019 07:35:[address] [facility] CUT-OFF >= 300 NG/ML. Name Value Range Interpretation Description Data Sup porting Code Source(s) Document(s ) OPIATES (UR) NEGATIVE [facility] ID Date Data Source [id number] 12/21/2019 07:35:[address] [facility] CUT-OFF >= 300 NG/ML. Name Value Range Interpretation Description Data Sup porting Code Source(s) Document(s ) COCAINE (UR) POSITIVE [facility] ID Date Data Source [id number] 12/21/2019 07:35:00 AM EDT [facility] CUT-OFF >= 200 NG/ML. Name Value Range Interpretation Description Data Sup porting Code Source(s) Document(s ) BENZODIAZEPINES NEGATIVE [place] (UR) [facility] ID Date Data Source [id number] 12/21/2019 07:35:00 AM EDT [facility] CUT-OFF >= 200 NG/ML. Name Value Range Interpretation Description Data Sup porting Code Source(s) Document(s ) BARBITURATES NEGATIVE [place] (UR) Hospital ID Date Data Source [id number] 12/21/2019 07:35:00 AM EDT [facility] CUT-OFF >= 1000 NG/ML. Name Value Range Interpretation Description Data Sup porting Code Source(s) Document(s ) AMPHETAMINES NEGATIVE [place] (UR) Hospital ID Date Data Source [id number] 12/21/2019 07:35:[address] [facility] CUT-OFF >= 1000 NG/ML. Name Value Range Interpretation Description Data Sup porting Code Source(s) Document(s ) AMPHETAMINES NEGATIVE [place] (UR) Hospital ID Date Data Source [id number] 12/21/2019 07:35:[address] [facility] Name Value Range Interpretation Description Data Sup porting Code Source(s) Document(s ) Leukocyte NEGATIVE [facility] [Presence] in Urine by Test strip ID Date Data Source [id number] 12/21/2019 07:35:[address] [facility] Name Value Range Interpretation Description Data Sup porting Code Source(s) Document(s ) URINE NEGATIVE [place] NITRITES Hospital ID Date Data Source [id number] 12/21/2019 07:35:00 AM EDT [facility] Name Value Range Interpretation Description Data Sup porting Code Source(s) Document(s ) Erythrocytes NEGATIVE [place] [#/volume] in Hospital Urine by Test strip ID Date Data Source [id number] 12/21/2019 07:35:00 AM EDT [facility] Value Range Interpretation Code Description Data Bryanna rce(s) Supporting Document(s ) Bilirubin. NEGATIVE [place] total [facility] [Presence] in Urine by Test strip ID Date Data Source [id number] 12/21/2019 07:35:00 AM EDT [facility] Value Range Interpretation Description Data Sup porting Code Source(s) Document(s ) Urobilinogen 1.0 [place] [Units/volume] mg/dL Hospital in Urine by Test strip ID Date Data Source [id number] 12/21/2019 07:35:00 AM EDT [facility] Value Range Interpretation Description Data Sup porting Code Source(s) Document(s ) Ketones NEGATIVE [place] [Mass/volume Hospital ] in Urine by Test strip ID Date Data Source [id number] 12/21/2019 07:35:00 AM EDT [facility] Value Range Interpretation Code Description Data Bryanna rce(s) Supporting Document(s ) Glucose 3+ [place] [Mass/volume Hospital ] in Urine by Test strip ID Date Data Source [id number] 12/21/2019 07:35:00 AM EDT [facility] Value Range Interpretation Description Data Sup porting Code Source(s) Document(s ) Protein NEGATIVE [place] [Presence] Hospital in Urine by Test strip ID Date Data Source [id number] 12/21/2019 07:35:00 AM EDT [facility] Value Range Interpretation Code Description Data Bryanna rce(s) Supporting Document(s ) pH of Urine 8.0 [place] by Test Hospital strip ID Date Data Source [id number] 12/21/2019 07:35:00 AM EDT [facility] Name Value Range Interpretation Code Description Data Supporting Source(s) Document(s ) Specific 1.023 [place] gravity of Hospital Urine by Test strip ID Date Data Source [id number] 12/21/2019 07:35:00 AM EDT [facility] Name Value Range Interpretation Description Data Sup porting Code Source(s) Document(s ) Clarity in Urine CLEAR [place] by [facility] automated ID Date Data Source [id number] 12/21/2019 07:35:00 AM EDT [facility] Name Value Range Interpretation Code Description Data Bryanna rce(s) Supporting Document(s ) Color of YELLOW [place] Urine Hospital ID Date Data Source [id number] 12/21/2019 07:35:[address] [facility] CUT-OFF >= 25 NG/ML.THE FINDINGS OF [...] rce(s) Supporting Document(s ) PCP (UR) NEGATIVE [facility] ID Date Data Source [id number] [facility] NG/ML. Name Value Range Interpretation Code Description Data Bryanna rce(s) Supporting Document(s ) THC (UR) NEGATIVE [facility] ID Date Data Source [id number] 12/21/2019 [facility] CUT[facility] >= 300 NG/ML. Name Value Range Interpretation Description Data Sup porting Code Source(s) Document(s ) OPIATES (UR) NEGATIVE [place] [facility] ID Date Data Source [id number] 12/21/2019 07:35:00 AM EDT [facility] CUT-OFF >= 300 NG/ML. Name Value Range Interpretation Description Data Sup porting Code Source(s) Document(s ) COCAINE (UR) POSITIVE [place] [facility] ID Date Data Source [id number] 12/21/2019 07:35:00 AM EDT [facility] CUT-OFF >= 200 NG/ML. Name Value Range Interpretation Description Data Sup porting Code Source(s) Document(s ) BENZODIAZEPINES NEGATIVE [place] (UR) [facility] ID Date Data Source [id number] 12/21/2019 07:35:00 AM EDT [facility] CUT-OFF >= 200 NG/ML. Name Value Range Interpretation Description Data Sup porting Code Source(s) Document(s ) BARBITURATES NEGATIVE [place] (UR) Hospital ID Date Data Source [id number] 12/21/2019 06:46:00 AM EDT [facility] Name Value Range Interpretation Description Data Sup porting Code Source(s) Document(s ) GLUCOSE Notified [facility] Hospital ID Date Data Source [id number] 12/21/2019 06:46:00 AM EDT [facility] Name Value Range Interpretation Description Data Sup porting Code Source(s) Document(s ) GLUCOSE Notified [facility] Hospital ID Date Data Source [id number] 12/21/2019 06:46:00 AM EDT [facility] Name Value Range Interpretation Description Data Sup porting Code Source(s) Document(s ) GLUCOSE RN Notified [facility] Hospital ID Date Data Source [id number] 12/21/2019 [facility]46[facility] Name Value Range Interpretation Description Data Sup porting Code Source(s) Document(s ) GLUCOSE MD Notified [place] [address] Hospital ID Date Data Source [id number] 12/21/2019 06[facility]46:[facility] Name Value Range Interpretation Description Data Sup porting Code Source(s) Document(s ) GLUCOSE MD Notified [place] [address] Hospital ID Date Data Source [id number] 12/21/2019 06:46:[facility] Name Value Range Interpretation Description Data Sup porting Code Source(s) Document(s ) GLUCOSE RN Notified [facility] ID Date Data Source [id number] 12/21/2019 06:33:[address] [facility] REFERENCE RANGES: NONE DETECTED <20 MG/DL NONE TO MILD EUPHORIA 20-49 MG/DL MILD EUPHORIA 50-99 MG/DL MODERATE EUPHORIA 100-149 MG/DL INTOXICATION 150-300 MG/DL Name Value Range Interpretation Description Data Sup porting Code Source(s) Document(s ) Ethanol < 20 [place] [Mass/volume mg/dL Hospital ] in Serum or Plasma ID Date Data Source [id number] 12/21/2019 06:33:[address] [facility] TEST PERFORMED BY [facility] [facility] CHEMILUMINESCENCE METHOD. Name Value Range Interpretation Description Data Sup porting Code Source(s) Document(s ) Troponin 0.01 [place] I.cardiac ng/mL Hospital [Mass/volume ] in Serum or Plasma ID Date Data Source [id number] 12/21/2019 06:33:[address] [facility] THERAPEUTIC RANGES:UNFRACTIONATED HEPARI N THERAPY: 60-90 SECONDSARGATROBAN THERAPY: 49-99 SECONDS Name Value Range Interpretation Description Data Sup porting Code Source(s) Document(s ) aPTT in 29.0 s [place] Platelet poor [facility] plasma by Coagulation assay ID Date Data Source [id number] 12/21/2019 06:33:[address] [facility] REFERENCE RANGES: NONE DETECTED <20 MG/DL NONE TO MILD EUPHORIA 20-49 MG/DL MILD EUPHORIA 50-99 MG/DL MODERATE EUPHORIA 100-149 MG/DL INTOXICATION 150-300 MG/DL Name Value Range Interpretation Description Data Sup porting Code Source(s) Document(s ) Ethanol < 20 [place] [Mass/volume mg/dL Hospital ] in Serum or Plasma ID Date Data Source [id number] 12/21/2019 06:33:[address] [facility] TEST PERFORMED BY [facility] [facility] CHEMILUMINESCENCE METHOD. Name Value Range Interpretation Description Data Sup porting Code Source(s) Document(s ) Troponin 0.01 [place] I.cardiac ng/mL Hospital [Mass/volume ] in Serum or Plasma ID Date Data Source [id number] 12/21/2019 06:33:[address] [facility] Name Value Range Interpretation Description Data Sup porting Code Source(s) Document(s ) Aspartate 90 U/L White aminotransferase [facility] [Enzymatic Hospital activity/volume] in Serum or Plasma ID Date Data Source [id number] 12/21/2019 06:33:[address] [facility] Name Value Range Interpretation Description Data Sup porting Code Source(s) Document(s ) Alanine 35 U/L White aminotransferase [facility] [Enzymatic Hospital activity/volume] in Serum or Plasma ID Date Data Source [id number] 12/21/2019 06:33:[address] [facility] Name Value Range Interpretation Description Data Sup porting Code Source(s) Document(s ) Alkaline 75 U/L [place] phosphatase Hospital [Enzymatic activity/volume ] in Serum or Plasma ID Date Data Source [id number] 12/21/2019 06:33:00 AM EDT [facility] Name Value Range Interpretation Description Data Sup porting Code Source(s) Document(s ) Bilirubin.t 1.0 mg/dL [facility] [Mass/volum e] in Serum or Plasma ID Date Data Source [id number] 12/21/2019 06:33:00 AM EDT [facility] Name Value Range Interpretation Code Description Data Bryanna rce(s) Supporting Document(s ) Albumin/Glob 1.2 [place] ulin [Mass Hospital Ratio] in Serum or Plasma ID Date Data Source [id number] 12/21/2019 06:33:00 AM EDT [facility] Value Range Interpretation Description Data Sup porting Code Source(s) Document(s ) Albumin 3.8 g/dL [place] [Mass/volume Hospital ] in Serum or Plasma ID Date Data Source [id number] 12/21/2019 06:33:00 AM EDT [facility] Name Value Range Interpretation Description Data Sup porting Code Source(s) Document(s ) Protein 7.1 g/dL [place] [Mass/volume Hospital ] in Serum or Plasma ID Date Data Source [id number] 12/21/2019 06:33:00 AM EDT [facility] Name Value Range Interpretation Description Data Sup porting Code Source(s) Document(s ) Calcium 9.1 mg/dL [place] [Mass/volume Hospital ] in Serum or Plasma ID Date Data Source [id number] 12/21/2019 06:33:00 AM EDT [facility] Value Range Interpretation Code Description Data Bryanna rce(s) Supporting Document(s ) Urea 13.8 [place] nitrogen/Cre Hospital atinine [Mass Ratio] in Serum or Plasma ID Date Data Source [id number] 12/21/2019 06:33:00 AM EDT [facility] Name Value Range Interpretation Description Data Sup porting Code Source(s) Document(s ) Creatinine 0.8 mg/dL [place] [Mass/volume] Hospital in Serum or Plasma ID Date Data Source [id number] 12/21/2019 06:33:00 AM EDT [facility] Name Value Range Interpretation Description Data Sup porting Code Source(s) Document(s ) Urea 11 mg/dL [place] nitrogen Hospital [Mass/volume ] in Serum or Plasma ID Date Data Source [id number] 12/21/2019 06:33:00 AM EDT [facility] Name Value Range Interpretation Code Description Data Bryanna rce(s) Supporting Document(s ) Anion gap in 14 [place] Serum or [facility] Plasma ID Date Data Source [id number] 12/21/2019 06:33:00 AM EDT [facility] Name Value Range Interpretation Description Data Sup porting Code Source(s) Document(s ) Carbon 28 mmol/L [place] dioxide, Hospital total [Moles/volu me] in Serum or Plasma ID Date Data Source [id number] 12/21/2019 06:33:00 AM EDT [facility] Name Value Range Interpretation Description Data Sup porting Code Source(s) Document(s ) Chloride 102 [place] [Moles/volum mmol/L Hospital e] in Serum or Plasma ID Date Data Source [id number] 12/21/2019 06:33:00 AM EDT [facility] SLIGHT HEMOLYSIS Name Value Range Interpretation Description Data Sup porting Code Source(s) Document(s ) Potassium 5.7 [place] [Moles/volume mmol/L Hospital ] in Serum or Plasma ID Date Data Source [id number] 12/21/2019 [facility] Name Value Range Interpretation Description Data Sup porting Code Source(s) Document(s ) Sodium 138 mmol/L [place] in Serum or Plasma ID Date Data Source [id number] 12/21/2019 06[facility]33:[facility] Name Value Range Interpretation Description Data Sup porting Code Source(s) Document(s ) Glucose 351 mg/dL [place] [[facility]/volume [facility] ] in Serum or Plasma ID Date Data Source [id number] 12/21/2019 06:33:[address] [facility] THERAPEUTIC RANGES:UNFRACTIONATED HEPARI N THERAPY: 60-90 SECONDSARGATROBAN THERAPY: 49-99 SECONDS Name Value Range Interpretation Description Data Sup porting Code Source(s) Document(s ) aPTT in 29.0 s [place] Platelet poor [facility] plasma by Coagulation assay ID Date Data Source [id number] 12/21/2019 06:33:[address] [facility] THERAPEUTIC RANGE FOR STANDARD ORALANTIC OAGULANT THERAPY: 2.0-3.0THERAPEUTIC RANGE FOR HIGH DOSE ORALANTICOAGULANT THERAPY (MECHANICAL HEARTVALVE REPLACEMENT): 2.5-3.5 Name Value Range Interpretation Description Data Sup porting Code Source(s) Document(s ) INR in Platelet 1.0 [place] poor plasma by Hospital Coagulation assay ID Date Data Source [id number] 12/21/2019 [facility]33[facility] Name Value Range Interpretation Description Data Sup porting Code Source(s) Document(s ) PT panel - 12.2 s [place] Platelet poor [facility] plasma by Coagulation assay ID Date Data Source [id number] 12/21/2019 06:33:[facility] Name Value Range Interpretation Description Data Sup porting Code Source(s) Document(s ) Platelet mean 12.5 fL [place] volume Hospital [Entitic volume] in Blood by Automated count ID Date Data Source [id number] 12/[facility] Interpret[facility] Description Data Sup porting Code Source(s) Document(s ) Platelets 184 [place] [#/volume] in 10*3/uL Hospital Blood by Automated count ID Date Data Source [id number] 12/21/2019 06:33:00 AM [facility] Value Range Interpretation Description Data Sup porting Code Source(s) Document(s ) Erythrocyte 14.5 % [facility] Hospital width [Ratio] by Automated count ID Date Data Source [id number] 12/21/2019 [facility] Value Range Interpretation Description Data Sup porting Code Source(s) Document(s ) Erythrocyte mean 33.5 [place] corpuscular g/dL Hospital hemoglobin concentration [Mass/volume] by Automated count ID Date Data Source [id number] 12/21/2019 06:33:00 AM [facility] Value Range Interpretation Description Data Sup porting Code Source(s) Document(s ) Erythrocyte 30.4 pg [facility] corpuscular hemoglobin [Entitic mass] by Automated count ID Date Data Source [id number] 12/21/2019 06:33:00 AM [facility] Value Range Interpretation Description Data Sup porting Code Source(s) Document(s ) Erythrocyte 90.6 fL [facility] corpuscular volume [Entitic volume] by Automated count ID Date Data Source [id number] 12/21/2019 06:33:00 AM [facility] Value Range Interpretation Description Data Sup porting Code Source(s) Document(s ) Hematocrit 35.5 % [place] [Volume Hospital Fraction] of Blood by Automated count ID Date Data Source [id number] 12/21/2019 06:33:00 AM EDT [facility] Name Value Range Interpretation Description Data Sup porting Code Source(s) Document(s ) Hemoglobin 11.9 g/dL [place] [Mass/volume] Hospital in Blood ID Date Data Source [id number] 12/21/2019 06:33:00 AM EDT [facility] Name Value Range Interpretation Description Data Sup porting Code Source(s) Document(s ) Erythrocytes 3.92 [place] [#/volume] in 10*6/uL Hospital Blood by Automated count ID Date Data Source [id number] 12/21/2019 06:33:00 AM EDT [facility] Name Value Range Interpretation Description Data Sup porting Code Source(s) Document(s ) Leukocytes 7.1 [place] [#/volume] in 10*3/uL Hospital Blood by Automated count ID Date Data Source [id number] 12/20/2019 06:38:[address] [facility] Informatics Analyst:MARQUITA RAMIREZ Name Value Range Interpretation Description Data Sup porting Code Source(s) Document(s ) Glucose 190 mg/dL [place] [Mass/volume] Hospital in Capillary blood by Glucometer ID Date Data Source [id number] 12/19/2019 10:18:[address] [facility] Name Value Range Interpretation Description Data Sup porting Code Source(s) Document(s ) Manual MANUAL [place] differential Hospital performed [Presence] in Blood ID Date Data Source [id number] 12/19/2019 10:18:00 AM [facility] Value Range Interpretation Code Description Data Bryanna rce(s) Supporting Document(s ) Cells 100 [place] Counted Hospital Total [#] in Blood ID Date Data Source [id number] 12/19/2019 10:18:00 AM EDT [facility] Value Range Interpretation Code Description Data Supporting Source(s) Document(s ) PLATELET NORMAL [facility] Hospital ID Date Data Source [id number] 12/19/2019 10:18:00 AM EDT [facility] Value Range Interpretation Code Description Data Bryanna rce(s) Supporting Document(s ) TARGET CELLS [facility] ID Date Data Source [id number] 12/19/2019 10:18:00 AM EDT [facility] Value Range Interpretation Code Description Data Supporting Source(s) Document(s ) POLYCHROMASIA [facility] ID Date Data Source [id number] 12/19/2019 10:18:00 AM EDT [facility] Value Range Interpretation Code Description Data Bryanna rce(s) Supporting Document(s ) HYPOCHROMIA [facility] ID Date Data Source [id number] 12/19/2019 10:18:00 AM EDT [facility] Value Range Interpretation Description Data Sup porting Code Source(s) Document(s ) POIKILOCYTOSIS [facility] ID Date Data Source [id number] 12/19/2019 10:18:00 AM EDT [facility] Value Range Interpretation Code Description Data Bryanna rce(s) Supporting Document(s ) ANISOCYTOSIS [facility] ID Date Data Source [id number] 12/19/2019 10:18:00 AM EDT [facility] Value Range Interpretation Description Data Sup porting Code Source(s) Document(s ) Eosinophils 0.22 [place] [#/volume] in 10*3/uL Hospital Blood by Manual count ID Date Data Source [id number] 12/19/2019 10:18:00 AM EDT [facility] Name Value Range Interpretation Description Data Sup porting Code Source(s) Document(s ) Monocytes 0.52 [place] [#/volume] in 10*3/uL Hospital Blood by Manual count ID Date Data Source [id number] 12/19/2019 10:18:00 AM EDT [facility] Value Range Interpretation Description Data Sup porting Code Source(s) Document(s ) Lymphocytes 1.89 [place] [#/volume] in 10*3/uL Hospital Blood by Manual count ID Date Data Source [id number] 12/19/2019 10:18:00 AM EDT [facility] Value Range Interpretation Description Data Sup porting Code Source(s) Document(s ) Neutrophils 1.07 [place] [#/volume] in 10*3/uL Hospital Blood by Manual count ID Date Data Source [id number] 12/19/2019 10:18:00 AM EDT [facility] Value Range Interpretation Description Data Sup porting Code Source(s) Document(s ) Eosinophils/100 6 % [place] leukocytes in Hospital Blood by Manual count ID Date Data Source [id number] 12/19/2019 10:18:00 AM EDT [facility] Value Range Interpretation Description Data Sup porting Code Source(s) Document(s ) Monocytes/100 14 % [place] leukocytes in Hospital Blood by Manual count ID Date Data Source [id number] 12/19/2019 10:18:00 AM EDT [facility] Value Range Interpretation Description Data Sup porting Code Source(s) Document(s ) Lymphocytes/100 51 % [place] leukocytes in Hospital Blood by Manual count ID Date Data Source [id number] 12/19/2019 10:18:00 AM EDT [facility] Value Range Interpretation Description Data Sup porting Code Source(s) Document(s ) Band form 1 % [place] neutrophils/100 Hospital leukocytes in Blood ID Date Data Source [id number] 12/19/2019 10:18:00 AM EDT [facility] Value Range Interpretation Description Data Sup porting Code Source(s) Document(s ) Neutrophils/100 28 % [place] leukocytes in Hospital Blood by Manual count ID Date Data Source [id number] 12/19/2019 10:18:00 AM EDT [facility] Value Range Interpretation Description Data Sup porting Code Source(s) Document(s ) Manual MANUAL [place] differential [facility] performed [Presence] in Blood ID Date Data Source [id number] 12/19/2019 10:18:00 AM EDT [facility] Value Range Interpretation Code Description Data Bryanna rce(s) Supporting Document(s ) Cells 100 [facility] Total [#] in Blood ID Date Data Source [id number] 12/19/2019 10:18:00 AM EDT [facility] Value Range Interpretation Code Description Data Supporting Source(s) Document(s ) PLATELET NORMAL [facility] Hospital ID Date Data Source [id number] 12/19/2019 10:18:00 AM EDT [facility] Value Range Interpretation Code Description Data Bryanna rce(s) Supporting Document(s ) TARGET CELLS OCC [facility] ID Date Data Source [id number] 12/19/2019 10:18:00 AM EDT [facility] Value Range Interpretation Code Description Data Supporting Source(s) Document(s ) POLYCHROMASIA OCC [facility] ID Date Data Source [id number] 12/19/2019 10:18:00 AM EDT [facility] Name Value Range Interpretation Code Description Data Bryanna rce(s) Supporting Document(s ) HYPOCHROMIA [facility] ID Date Data Source [id number] 12/19/2019 10:18:00 AM EDT [facility] Name Value Range Interpretation Description Data Sup porting Code Source(s) Document(s ) POIKILOCYTOSIS [facility] ID Date Data Source [id number] 12/19/2019 10:18:00 AM EDT [facility] Value Range Interpretation Code Description Data Bryanna rce(s) Supporting Document(s ) ANISOCYTOSIS [facility] ID Date Data Source [id number] 12/19/2019 10:18:00 AM EDT [facility] Value Range Interpretation Description Data Sup porting Code Source(s) Document(s ) Eosinophils 0.22 [place] [#/volume] in 10*3/uL Hospital Blood by Manual count ID Date Data Source [id number] 12/19/2019 10:18:00 AM EDT [facility] Value Range Interpretation Description Data Sup porting Code Source(s) Document(s ) Monocytes 0.52 [place] [#/volume] in 10*3/uL Hospital Blood by Manual count ID Date Data Source [id number] 12/19/2019 10:18:00 AM EDT [facility] Value Range Interpretation Description Data Sup porting Code Source(s) Document(s ) Lymphocytes 1.89 [place] [#/volume] in 10*3/uL Hospital Blood by Manual count ID Date Data Source [id number] 12/19/2019 10:18:00 AM EDT [facility] Name Value Range Interpretation Description Data Sup porting Code Source(s) Document(s ) Neutrophils 1.07 [place] [#/volume] in 10*3/uL Hospital Blood by Manual count ID Date Data Source [id number] 12/19/2019 10:18:00 AM EDT [facility] Name Value Range Interpretation Description Data Sup porting Code Source(s) Document(s ) Eosinophils/100 6 % [place] leukocytes in Hospital Blood by Manual count ID Date Data Source [id number] 12/19/2019 10:18:00 AM EDT [facility] Value Range Interpretation Description Data Sup porting Code Source(s) Document(s ) Monocytes/100 14 % [place] leukocytes in Hospital Blood by Manual count ID Date Data Source [id number] 12/19/2019 10:18:00 AM EDT [facility] Value Range Interpretation Description Data Sup porting Code Source(s) Document(s ) Lymphocytes/100 51 % [place] leukocytes in [facility] Blood by Manual count ID Date Data Source [id number] 12/19/2019 10:18:00 AM EDT [facility] Value Range Interpretation Description Data Sup porting Code Source(s) Document(s ) Band form 1 % [place] neutrophils/100 Hospital leukocytes in Blood ID Date Data Source [id number] 12/19/2019 10:18:00 AM EDT [facility] Value Range Interpretation Description Data Sup porting Code Source(s) Document(s ) Neutrophils/100 28 % [place] leukocytes in [facility] Blood by Manual count ID Date Data Source [id number] 12/19/2019 10:18:00 AM EDT [facility] Value Range Interpretation Description Data Sup porting Code Source(s) Document(s ) Manual MANUAL [place] [facility] performed [Presence] in Blood ID Date Data Source [id number] 12/19/2019 10:18:00 AM EDT [facility] Name Value Range Interpretation Code Description Data Bryanna rce(s) Supporting Document(s ) Cells 100 [facility] Total [#] in Blood ID Date Data Source [id number] 12/19/2019 10:18:00 AM EDT [facility] Name Value Range Interpretation Code Description Data Supporting Source(s) Document(s ) PLATELET NORMAL [facility] Hospital ID Date Data Source [id number] 12/19/2019 10:18:00 AM EDT [facility] Value Range Interpretation Code Description Data Bryanna rce(s) Supporting Document(s ) TARGET CELLS [facility] ID Date Data Source [id number] 12/19/2019 10:18:00 AM EDT [facility] Value Range Interpretation Code Description Data Supporting Source(s) Document(s ) POLYCHROMASIA [facility] ID Date Data Source [id number] 12/19/2019 10:18:00 AM EDT [facility] Value Range Interpretation Code Description Data Bryanna rce(s) Supporting Document(s ) HYPOCHROMIA [facility] ID Date Data Source [id number] 12/19/2019 10:18:00 AM EDT [facility] Value Range Interpretation Description Data Sup porting Code Source(s) Document(s ) POIKILOCYTOSIS [facility] ID Date Data Source [id number] 12/[facility] Code Description Data Bryanna rce(s) Supporting Document(s ) ANISOCYTOSIS OCC [facility] ID Date Data Source [id number] 12/19/2019 10:18:00 AM EDT [facility] Name Value Range Interpretation Description Data Sup porting Code Source(s) Document(s ) Eosinophils 0.22 [place] [#/volume] in 10*3/uL Hospital Blood by Manual count ID Date Data Source [id number] 12/19/2019 10:18:00 AM EDT [facility] Name Value Range Interpretation Description Data Sup porting Code Source(s) Document(s ) Monocytes 0.52 [place] [#/volume] in 10*3/uL Hospital Blood by Manual count ID Date Data Source [id number] 12/19/2019 10:18:00 AM EDT [facility] Name Value Range Interpretation Description Data Sup porting Code Source(s) Document(s ) Lymphocytes 1.89 [place] [#/volume] in 10*3/uL Hospital Blood by Manual count ID Date Data Source [id number] 12/19/2019 10:18:00 AM EDT [facility] Name Value Range Interpretation Description Data Sup porting Code Source(s) Document(s ) Neutrophils 1.07 [place] [#/volume] in 10*3/uL Hospital Blood by Manual count ID Date Data Source [id number] 12/19/2019 10:18:00 AM EDT [facility] Value Range Interpretation Description Data Sup porting Code Source(s) Document(s ) Eosinophils/100 6 % [place] leukocytes in Hospital Blood by Manual count ID Date Data Source [id number] 12/19/2019 10:18:00 AM EDT [facility] Name Value Range Interpretation Description Data Sup porting Code Source(s) Document(s ) Monocytes/100 14 % [place] leukocytes in Hospital Blood by Manual count ID Date Data Source [id number] 12/19/2019 10:18:00 AM EDT [facility] Name Value Range Interpretation Description Data Sup porting Code Source(s) Document(s ) Lymphocytes/100 51 % [place] leukocytes in Hospital Blood by Manual count ID Date Data Source [id number] 12/19/2019 10:18:00 AM EDT [facility] Name Value Range Interpretation Description Data Sup porting Code Source(s) Document(s ) Band form 1 % [place] neutrophils/100 Hospital leukocytes in Blood ID Date Data Source [id number] 12/19/2019 10:18:00 AM EDT [facility] Value Range Interpretation Description Data Sup porting Code Source(s) Document(s ) Neutrophils/100 28 % [place] leukocytes in Hospital Blood by Manual count ID Date Data Source [id number] 12/19/2019 10:18:00 AM EDT [facility] Value Range Interpretation Description Data Sup porting Code Source(s) Document(s ) Manual MANUAL [place] [facility] performed [Presence] in Blood ID Date Data Source [id number] 12/19/2019 10:18:00 AM EDT [facility] Value Range Interpretation Code Description Data Bryanna rce(s) Supporting Document(s ) Cells 100 [place] [facility] Total [#] in Blood ID Date Data Source [id number] 12/19/2019 10:18:00 AM EDT [facility] Value Range Interpretation Code Description Data Supporting Source(s) Document(s ) PLATELET NORMAL [facility] Hospital ID Date Data Source [id number] 12/19/2019 10:18:00 AM EDT [facility] Value Range Interpretation Code Description Data Bryanna rce(s) Supporting Document(s ) TARGET CELLS OCC [place] [facility] ID Date Data Source [id number] 12/19/2019 10:18:00 AM EDT [facility] Name Value Range Interpretation Code Description Data Supporting Source(s) Document(s ) POLYCHROMASIA [facility] ID Date Data Source [id number] 12/19/2019 [facility] Interpretation Code Description Data Bryanna rce(s) Supporting Document(s ) HYPOCHROMIA [facility] ID Date Data Source [id number] 12/19/2019 10:18:00 AM EDT [facility] Value Range Interpretation Description Data Sup porting Code Source(s) Document(s ) POIKILOCYTOSIS [facility] ID Date Data Source [id number] 12/19/2019 [facility] Value Range Interpretation Code Description Data Bryanna rce(s) Supporting Document(s ) ANISOCYTOSIS [facility] ID Date Data Source [id number] 12/19/2019 [facility] Value Range Interpretation Description Data Sup porting Code Source(s) Document(s ) Eosinophils 0.22 [place] [#/volume] in 10*3/uL Hospital Blood by Manual count ID Date Data Source [id number] 12/19/2019 10:18:00 AM EDT [facility] Value Range Interpretation Description Data Sup porting Code Source(s) Document(s ) Monocytes 0.52 [place] [#/volume] in 10*3/uL Hospital Blood by Manual count ID Date Data Source [id number] 12/19/2019 [facility] Value Range Interpretation Description Data Sup porting Code Source(s) Document(s ) Lymphocytes 1.89 [place] [#/volume] in 10*3/uL Hospital Blood by Manual count ID Date Data Source [id number] 12/19/2019 10:18:00 AM EDT [facility] Value Range Interpretation Description Data Sup porting Code Source(s) Document(s ) Neutrophils 1.07 [place] [#/volume] in 10*3/uL Hospital Blood by Manual count ID Date Data Source [id number] 12/19/2019 10:18:00 AM EDT [facility] Value Range Interpretation Description Data Sup porting Code Source(s) Document(s ) Eosinophils/100 6 % [place] leukocytes in Hospital Blood by Manual count ID Date Data Source [id number] 12/19/2019 10:18:00 AM EDT [facility] Value Range Interpretation Description Data Sup porting Code Source(s) Document(s ) Monocytes/100 14 % [place] leukocytes in Hospital Blood by Manual count ID Date Data Source [id number] 12/19/2019 10:18:00 AM EDT [facility] Value Range Interpretation Description Data Sup porting Code Source(s) Document(s ) Lymphocytes/100 51 % [place] leukocytes in Hospital Blood by Manual count ID Date Data Source [id number] 12/19/2019 10:18:00 AM EDT [facility] Value Range Interpretation Description Data Sup porting Code Source(s) Document(s ) Band form 1 % [place] neutrophils/100 Hospital leukocytes in Blood ID Date Data Source [id number] 12/19/2019 10:18:00 AM EDT [facility] Value Range Interpretation Description Data Sup porting Code Source(s) Document(s ) Neutrophils/100 28 % [place] leukocytes in Hospital Blood by Manual count ID Date Data Source [id number] 12/19/2019 10:18:00 AM [facility] Value Range Interpretation Description Data Sup porting Code Source(s) Document(s ) Platelet mean 12.2 fL [facility] [Entitic volume] in Blood by Automated count ID Date Data Source [id number] 12/19/2019 10:18[facility] Value Range Interpretation Description Data Sup porting Code Source(s) Document(s ) Platelets 164 [place] [#/volume] in 10*3/uL Hospital Blood by Automated count ID Date Data Source [id number] 12/19/2019 [facility] Value Range Interpretation Description Data Sup porting Code Source(s) Document(s ) Erythrocyte 14.1 % [facility] width [Ratio] by Automated count ID Date Data Source [id number] 12/19/2019 10:18:00 AM [facility] Value Range Interpretation Description Data Sup porting Code Source(s) Document(s ) Erythrocyte mean 34.9 [place] corpuscular g/dL Hospital hemoglobin concentration [Mass/volume] by Automated count ID Date Data Source [id number] 12/19/2019 10:18:00 AM [facility] Value Range Interpretation Description Data Sup porting Code Source(s) Document(s ) Erythrocyte 30.4 pg [facility] corpuscular hemoglobin [Entitic mass] by Automated count ID Date Data Source [id number] 12/19/2019 10:18:00 AM [facility] Value Range Interpretation Description Data Sup porting Code Source(s) Document(s ) Erythrocyte 87.1 fL [facility] corpuscular volume [Entitic volume] by Automated count ID Date Data Source [id number] 12/19/2019 10:18:00 AM EDT [facility] Name Value Range Interpretation Description Data Sup porting Code Source(s) Document(s ) Hematocrit 32.4 % [place] [Volume Hospital Fraction] of Blood by Automated count ID Date Data Source [id number] 12/19/2019 10:18:00 AM EDT [facility] Value Range Interpretation Description Data Sup porting Code Source(s) Document(s ) Hemoglobin 11.3 g/dL [place] [Mass/volume] Hospital in Blood ID Date Data Source [id number] 12/19/2019 10:18:00 AM EDT [facility] Value Range Interpretation Description Data Sup porting Code Source(s) Document(s ) Erythrocytes 3.72 [place] [#/volume] in 10*6/uL Hospital Blood by Automated count ID Date Data Source [id number] 12/19/2019 10:18:00 AM EDT [facility] Value Range Interpretation Description Data Sup porting Code Source(s) Document(s ) Leukocytes 3.7 [place] [#/volume] in 10*3/uL Hospital Blood by Automated count ID Date Data Source [id number] 12/19/2019 10:18:00 AM EDT [facility] Value Range Interpretation Description Data Sup porting Code Source(s) Document(s ) Manual MANUAL [place] [facility] performed [Presence] in Blood ID Date Data Source [id number] 12/19/2019 10:18:00 AM EDT [facility] Value Range Interpretation Code Description Data Bryanna rce(s) Supporting Document(s ) Cells 100 [place] [facility] Total [#] in Blood ID Date Data Source [id number] 12/19/2019 10:18:00 AM EDT [facility] Value Range Interpretation Code Description Data Supporting Source(s) Document(s ) PLATELET NORMAL [place] [facility] ID Date Data Source [id number] 12/19/2019 10:18:00 AM EDT [facility] Name Value Range Interpretation Code Description Data Bryanna rce(s) Supporting Document(s ) TARGET CELLS [facility] ID Date Data Source [id number] 12/19/2019 10:18:00 AM EDT [facility] Name Value Range Interpretation Code Description Data Supporting Source(s) Document(s ) POLYCHROMASIA [facility] ID Date Data Source [id number] 12/19/2019 10:18:00 AM EDT [facility] Value Range Interpretation Code Description Data Bryanna rce(s) Supporting Document(s ) HYPOCHROMIA [facility] ID Date Data Source [id number] 12/19/2019 10:18:00 AM EDT [facility] Value Range Interpretation Description Data Sup porting Code Source(s) Document(s ) POIKILOCYTOSIS [facility] ID Date Data Source [id number] 12/19/2019 10:18:00 AM EDT [facility] Value Range Interpretation Code Description Data Bryanna rce(s) Supporting Document(s ) ANISOCYTOSIS [facility] ID Date Data Source [id number] 12/19/2019 10:18:00 AM EDT [facility] Name Value Range Interpretation Description Data Sup porting Code Source(s) Document(s ) Eosinophils 0.22 [place] [#/volume] in 10*3/uL Hospital Blood by Manual count ID Date Data Source [id number] 12/19/2019 10:18:00 AM EDT [facility] Name Value Range Interpretation Description Data Sup porting Code Source(s) Document(s ) Monocytes 0.52 [place] [#/volume] in 10*3/uL Hospital Blood by Manual count ID Date Data Source [id number] 12/19/2019 10:18:00 AM EDT [facility] Value Range Interpretation Description Data Sup porting Code Source(s) Document(s ) Lymphocytes 1.89 [place] [#/volume] in 10*3/uL Hospital Blood by Manual count ID Date Data Source [id number] 12/19/2019 10:18:00 AM EDT [facility] Value Range Interpretation Description Data Sup porting Code Source(s) Document(s ) Neutrophils 1.07 [place] [#/volume] in 10*3/uL Hospital Blood by Manual count ID Date Data Source [id number] 12/19/2019 10:18:00 AM EDT [facility] Value Range Interpretation Description Data Sup porting Code Source(s) Document(s ) Eosinophils/100 6 % [place] leukocytes in Hospital Blood by Manual count ID Date Data Source [id number] 12/19/2019 10:18:00 AM EDT [facility] Value Range Interpretation Description Data Sup porting Code Source(s) Document(s ) Monocytes/100 14 % [place] leukocytes in Hospital Blood by Manual count ID Date Data Source [id number] 12/19/2019 10:18:00 AM EDT [facility] Value Range Interpretation Description Data Sup porting Code Source(s) Document(s ) Lymphocytes/100 51 % [place] leukocytes in Hospital Blood by Manual count ID Date Data Source [id number] 12/19/2019 10:18:00 AM EDT [facility] Value Range Interpretation Description Data Sup porting Code Source(s) Document(s ) Band form 1 % [place] neutrophils/100 Hospital leukocytes in Blood ID Date Data Source [id number] 12/19/2019 10:18:[address] [facility] Name Value Range Interpretation Description Data Sup porting Code Source(s) Document(s ) Neutrophils/100 28 % [place] leukocytes in Hospital Blood by Manual count ID Date Data Source [id number] 12/19/2019 10:12:[address] [facility] UNITS ARE IN ml/min/1.73m2.IF PATIENT IS -[place], MULTIPLY REPORTED RESULT BY 1.21. Name Value Range Interpretation Description Data Sup porting Code Source(s) Document(s ) Glomerular > 60 [place] filtration mL/min Hospital rate/1.73 sq M.predicted [Volume Rate/Area] in Serum or Plasma by Creatinine-bas ed formula (MDRD) ID Date Data Source [id number] 12/19/2019 10:12:[address] [facility] UNITS ARE IN ml/min/1.73m2.IF PATIENT IS -[place], MULTIPLY REPORTED RESULT BY 1.21. Name Value Range Interpretation Description Data Sup porting Code Source(s) Document(s ) Glomerular > 60 [place] filtration mL/min Hospital rate/1.73 sq M.predicted [Volume Rate/Area] in Serum or Plasma by Creatinine-bas ed formula (MDRD) ID Date Data Source [id number] 12/19/2019 10:12:[address] [facility] Name Value Range Interpretation Description Data Sup porting Code Source(s) Document(s ) Aspartate 46 U/L [place] aminotransferase [place] [Enzymatic Hospital activity/volume] in Serum or Plasma ID Date Data Source [id number] 12/19/2019 10:12:[address] [facility] Name Value Range Interpretation Description Data Sup porting Code Source(s) Document(s ) Alanine 24 U/L [place] aminotransferase [place] [Enzymatic Hospital activity/volume] in Serum or Plasma ID Date Data Source [id number] 12/19/2019 10:12:00 AM EDT [facility] Name Value Range Interpretation Description Data Sup porting Code Source(s) Document(s ) Alkaline 67 U/L [place] phosphatase [facility] [Enzymatic activity/volume ] in Serum or Plasma ID Date Data Source [id number] 12/19[facility]2019 [facility] Interpretation Description Data Sup porting Code Source(s) Document(s ) Bilirubin.t 1.2 mg/dL [facility] [Mass/volum e] in Serum or Plasma ID Date Data Source [id number] 12/19/2019 [facility] Value Range Interpretation Code Description Data Bryanna rce(s) Supporting Document(s ) [facility] in Serum or Plasma ID Date Data Source [id number] 12/19/2019 [facility] Value Range Interpretation Description Data Sup porting Code Source(s) Document(s ) Albumin 2.8 g/dL [place] [Mass/volume Hospital ] in Serum or Plasma ID Date Data Source [id number] 12/19/2019 10:12:00 AM EDT [facility] Name Value Range Interpretation Description Data Sup porting Code Source(s) Document(s ) Protein 5.5 g/dL [place] [Mass/volume Hospital ] in Serum or Plasma ID Date Data Source [id number] 12/19/2019 [facility] Value Range Interpretation Description Data Sup porting Code Source(s) Document(s ) Calcium 8.7 mg/dL [place] [Mass/volume Hospital ] in Serum or Plasma ID Date Data Source [id number] 12/19/2019 10:12:[address] [facility] UNITS ARE IN ml/min/1.73m2.IF PATIENT IS -PAPUA [place], MULTIPLY REPORTED RESULT BY 1.21. Name Value Range Interpretation Description Data Sup porting Code Source(s) Document(s ) Glomerular > 60 [place] filtration mL/min Hospital rate/1.73 sq M.predicted [Volume Rate/Area] in Serum or Plasma by Creatinine-bas ed formula (MDRD) ID Date Data Source [id number] 12/[facility] Value Range Interpretation Code Description Data Bryanna rce(s) Supporting Document(s ) Urea 12.9 [place] nitrogen/Cre Hospital atinine [Mass Ratio] in Serum or Plasma ID Date Data Source [id number] 12/19/2019 10:12:00 AM [facility] Value Range Interpretation Description Data Sup porting Code Source(s) Document(s ) Creatinine 0.7 mg/dL [place] [Mass/volume] Hospital in Serum or Plasma ID Date Data Source [id number] 12/19/2019 10:12:00 AM [facility] Value Range Interpretation Description Data Sup porting Code Source(s) Document(s ) Urea nitrogen 9 mg/dL [place] [Mass/volume] Hospital in Serum or Plasma ID Date Data Source [id number] 12/19/2019 10:12:00 AM [facility] Value Range Interpretation Code Description Data Bryanna rce(s) Supporting Document(s ) Anion gap in 5 [place] Serum or [facility] Plasma ID Date Data Source [id number] 12/19/2019 10:12:[address] [facility] Name Value Range Interpretation Description Data Sup porting Code Source(s) Document(s ) Carbon 32 mmol/L [place] dioxide, Hospital total [Moles/volu me] in Serum or Plasma ID Date Data Source [id number] 12/19/2019 10:12:[address] [facility] Name Value Range Interpretation Description Data Sup porting Code Source(s) Document(s ) Chloride 106 [place] [Moles/volum mmol/L Hospital e] in Serum or Plasma ID Date Data Source [id number] 12/19/2019 10:12:[address] [facility] Name Value Range Interpretation Description Data Sup porting Code Source(s) Document(s ) Potassium 3.7 [place] [Moles/volume mmol/L Hospital ] in Serum or Plasma ID Date Data Source [id number] 12/19/2019 10:12:[address] [facility] Name Value Range Interpretation Description Data Sup porting Code Source(s) Document(s ) Sodium 139 mmol/L [place] [Moles/volu Hospital me] in Serum or Plasma ID Date Data Source [id number] 12/19/2019 10:12:[address] [facility] Name Value Range Interpretation Description Data Sup porting Code Source(s) Document(s ) Glucose 294 mg/dL [place] [Mass/volume Hospital ] in Serum or Plasma ID Date Data Source [id number] 12/19/2019 10:12:[address] [facility] UNITS ARE IN ml/min/1.73m2.IF PATIENT IS -P[place], MULTIPLY REPORTED RESULT BY 1.21. Name Value Range Interpretation Description Data Sup porting Code Source(s) Document(s ) Glomerular > 60 [place] filtration mL/min Hospital rate/1.73 sq M.predicted [Volume Rate/Area] in Serum or Plasma by Creatinine-bas ed formula (MDRD) ID Date Data Source [id number] 12/18/2019 12:28:[address] [facility] Name Value Range Interpretation Description Data Sup porting Code Source(s) Document(s ) GLUCOSE RN Notified [facility] Hospital ID Date Data Source [id number] 12/18/2019 09:16:00 AM EDT [facility] Name Value Range Interpretation Description Data Sup porting Code Source(s) Document(s ) Variant 1 % [place] lymphocytes/100 Hospital leukocytes in Blood by Manual count ID Date Data Source [id number] 12/18/2019 09:16:00 AM EDT [facility] Name Value Range Interpretation Description Data Sup porting Code Source(s) Document(s ) Variant 1 % [place] lymphocytes/100 Hospital leukocytes in Blood by Manual count ID Date Data Source [id number] 12/18/2019 09:16:00 AM EDT [facility] Value Range Interpretation Description Data Sup porting Code Source(s) Document(s ) Variant 1 % [place] lymphocytes/100 Hospital leukocytes in Blood by Manual count ID Date Data Source [id number] 12/18/2019 09:16:00 AM EDT [facility] Value Range Interpretation Description Data Sup porting Code Source(s) Document(s ) Variant 1 % [place] lymphocytes/100 Hospital leukocytes in Blood by Manual count ID Date Data Source [id number] 12/18/2019 09:16:00 AM EDT [facility] Value Range Interpretation Description Data Sup porting Code Source(s) Document(s ) Variant 1 % [place] lymphocytes/100 Hospital leukocytes in Blood by Manual count ID Date Data Source [id number] 12/17/2019 06:32:00 AM EDT [facility] Value Range Interpretation Description Data Sup porting Code Source(s) Document(s ) Phosphate 2.3 mg/dL [place] [Mass/volume] Hospital in Serum or Plasma ID Date Data Source [id number] 12/17/2019 06:32:00 AM EDT [facility] Name Value Range Interpretation Description Data Sup porting Code Source(s) Document(s ) Phosphate 2.3 mg/dL [place] [Mass/volume] Hospital in Serum or Plasma ID Date Data Source [id number] 12/17/2019 06:32:00 AM EDT [facility] Name Value Range Interpretation Description Data Sup porting Code Source(s) Document(s ) Magnesium 1.7 mg/dL [place] [Mass/volume] Hospital in Serum or Plasma ID Date Data Source [id number] 12/17/2019 06:32:[address] [facility] Name Value Range Interpretation Description Data Sup porting Code Source(s) Document(s ) Phosphate 2.3 mg/dL [place] [Mass/volume] Hospital in Serum or Plasma ID Date Data Source [id number] 12/17/2019 06:32:[address] [facility] Name Value Range Interpretation Description Data Sup porting Code Source(s) Document(s ) Magnesium 1.7 mg/dL [place] [Mass/volume] Hospital in Serum or Plasma ID Date Data Source [id number] 12/16/2019 04:20:[address] [facility] CUT-OFF >= 25 NG/ML.THE FINDINGS OF [...] rce(s) Supporting Document(s ) PCP (UR) NEGATIVE [facility] ID Date Data Source [id number] 12/16/2019 04:20:[address] [facility] CUT-OFF >= 50 NG/ML. Name Value Range Interpretation Code Description Data Bryanna rce(s) Supporting Document(s ) THC (UR) NEGATIVE [facility] ID Date Data Source [id number] 12/16/2019 04:20:00 PM EDT [facility] CUT-OFF >= 300 NG/ML. Name Value Range Interpretation Description Data Sup porting Code Source(s) Document(s ) OPIATES (UR) NEGATIVE [facility] ID Date Data Source [id number] 12/16/2019 04:20:00 PM EDT [facility] CUT-OFF >= 300 NG/ML. Name Value Range Interpretation Description Data Sup porting Code Source(s) Document(s ) COCAINE (UR) POSITIVE [facility] ID Date Data Source [id number] 12/16/2019 04:20:00 PM EDT [facility] CUT-OFF >= 200 NG/ML. Name Value Range Interpretation Description Data Sup porting Code Source(s) Document(s ) BENZODIAZEPINES NEGATIVE [place] (UR) [facility] ID Date Data Source [id number] 12/16/2019 04:20:00 PM EDT [facility] CUT-OFF >= 200 NG/ML. Name Value Range Interpretation Description Data Sup porting Code Source(s) Document(s ) BARBITURATES NEGATIVE [place] (UR) Hospital ID Date Data Source [id number] 12/16/2019 04:20:00 PM EDT [facility] CUT-OFF >= 1000 NG/ML. Name Value Range Interpretation Description Data Sup porting Code Source(s) Document(s ) AMPHETAMINES NEGATIVE [place] (UR) Hospital ID Date Data Source [id number] 12/16/2019 01:55:[address] [facility] THERAPEUTIC RANGES:UNFRACTIONATED HEPARI N THERAPY: 60-90 SECONDSARGATROBAN THERAPY: 49-99 SECONDS Name Value Range Interpretation Description Data Sup porting Code Source(s) Document(s ) aPTT in 33.9 s [place] Platelet poor Hospital plasma by Coagulation assay ID Date Data Source [id number] 12/16/2019 01:55:[address] [facility] THERAPEUTIC RANGE FOR STANDARD ORALANTIC OAGULANT THERAPY: 2.0-3.0THERAPEUTIC RANGE FOR HIGH DOSE ORALANTICOAGULANT THERAPY (MECHANICAL HEARTVALVE REPLACEMENT): 2.5-3.5 Name Value Range Interpretation Description Data Sup porting Code Source(s) Document(s ) INR in Platelet 1.0 [place] poor plasma by Hospital Coagulation assay ID Date Data Source [id number] 12/16/2019 [facility]55[facility] Name Value Range Interpretation Description Data Sup porting Code Source(s) Document(s ) PT panel - 11.8 s [place] Platelet poor [facility] plasma by Coagulation assay ID Date Data Source [id number] 12/16/2019 03:13:[address] [facility] Name Value Range Interpretation Description Data Sup porting Code Source(s) Document(s ) Mucus PRESENT [place] [Presence] in Hospital Urine sediment by Light microscopy ID Date Data Source [id number] 12/16/2019 03:13:[address] [facility] Name Value Range Interpretation Description Data Sup porting Code Source(s) Document(s ) Epithelial 3+ [place] cells.[facility] [#/area] in Urine sediment by Microscopy high power field ID Date Data Source [id number] 12/16/2019 03[facility]13:[facility] Name Value Range Interpretation Description Data Sup porting Code Source(s) Document(s ) Bacteria OCCASIONAL [place] [#/area] in Hospital Urine sediment by Microscopy high power field ID Date Data Source [id number] 12/16/2019 03:13:00 AM EDT [facility] Name Value Range Interpretation Description Data Sup porting Code Source(s) Document(s ) Erythrocytes 0-3 [place] [#/area] in /[HPF] Hospital Urine sediment by Microscopy high power field ID Date Data Source [id number] 12/16/2019 03:13:00 AM EDT [facility] Name Value Range Interpretation Description Data Sup porting Code Source(s) Document(s ) Leukocytes 10-20 [place] [#/area] in /[HPF] Hospital Urine sediment by Microscopy high power field ID Date Data Source [id number] 12/16/2019 03:13:00 AM EDT [facility] Name Value Range Interpretation Description Data Sup porting Code Source(s) Document(s ) Mucus PRESENT [place] [Presence] in Hospital Urine sediment by Light microscopy ID Date Data Source [id number] 12/16/2019 03:13:00 AM EDT [facility] Name Value Range Interpretation Description Data Sup porting Code Source(s) Document(s ) Epithelial 3+ [place] cells.[facility] [#/area] in Urine sediment by Microscopy high power field ID Date Data Source [id number] 12/16/2019 03:13:00 AM EDT [facility] Name Value Range Interpretation Description Data Sup porting Code Source(s) Document(s ) Bacteria OCCASIONAL [place] [#/area] in Hospital Urine sediment by Microscopy high power field ID Date Data Source [id number] 12/16/2019 03:13:00 AM EDT [facility] Name Value Range Interpretation Description Data Sup porting Code Source(s) Document(s ) Erythrocytes 0-3 [place] [#/area] in /[HPF] Hospital Urine sediment by Microscopy high power field ID Date Data Source [id number] 12/16/2019 03:13:[address] [facility] Name Value Range Interpretation Description Data Sup porting Code Source(s) Document(s ) Leukocytes 10-20 [place] [#/area] in /[HPF] Hospital Urine sediment by Microscopy high power field ID Date Data Source [id number] 12/16/2019 [facility] Description Data Sup porting Code Source(s) Document(s ) Mucus PRESENT [place] [Presence] in Hospital Urine sediment by Light microscopy ID Date Data Source [id number] 12/16/2019 [facility]:13[facility] Value Range Interpretation Description Data Sup porting Code Source(s) Document(s ) Epithelial 3+ [place] cells.[facility] [#/area] in Urine sediment by Microscopy high power field ID Date Data Source [id number] 12/16/2019 03:13[facility] Name Value Range Interpretation Description Data Sup porting Code Source(s) Document(s ) Bacteria OCCASIONAL [place] [#/area] in Hospital Urine sediment by Microscopy high power field ID Date Data Source [id number] 12/16/2019 [facility]:13[facility] Interpretation Description Data Sup porting Code Source(s) Document(s ) Erythrocytes 0-3 [place] [#/area] in /[HPF] Hospital Urine sediment by Microscopy high power field ID Date Data Source [id number] 12/16/2019 03:13[facility] Value Range Interpretation Description Data Sup porting Code Source(s) Document(s ) Leukocytes 10-20 [place] [#/area] in /[HPF] Hospital Urine sediment by Microscopy high power field ID Date Data Source [id number] 12/16/2019 03:13:00 AM EDT [facility] Name Value Range Interpretation Description Data Sup porting Code Source(s) Document(s ) Mucus PRESENT [place] [Presence] in Hospital Urine sediment by Light microscopy ID Date Data Source [id number] 12/16/2019 03:13:00 AM EDT [facility] Name Value Range Interpretation Description Data Sup porting Code Source(s) Document(s ) Epithelial 3+ [place] cells.[facility] [#/area] in Urine sediment by Microscopy high power field ID Date Data Source [id number] 12/16/2019 03:13:00 AM EDT [facility] Name Value Range Interpretation Description Data Sup porting Code Source(s) Document(s ) Bacteria OCCASIONAL [place] [#/area] in Hospital Urine sediment by Microscopy high power field ID Date Data Source [id number] 12/16/2019 03:13:00 AM EDT [facility] Name Value Range Interpretation Description Data Sup porting Code Source(s) Document(s ) Erythrocytes 0-3 [place] [#/area] in /[HPF] Hospital Urine sediment by Microscopy high power field ID Date Data Source [id number] 12/16/2019 03:13:00 AM EDT [facility] Name Value Range Interpretation Description Data Sup porting Code Source(s) Document(s ) Leukocytes 10-20 [place] [#/area] in /[HPF] Hospital Urine sediment by Microscopy high power field ID Date Data Source [id number] 12/16/2019 03:13:00 AM EDT [facility] Name Value Range Interpretation Code Description Data Supporting Source(s) Document(s ) Leukocyte TRACE [place] esterase Hospital [Presence] in Urine by Test strip ID Date Data Source [id number] 12/16/2019 03:13:00 AM EDT [facility] Name Value Range Interpretation Description Data Sup porting Code Source(s) Document(s ) URINE NEGATIVE [place] NITRITES Hospital ID Date Data Source [id number] 12/16/2019 03:13:00 AM EDT [facility] Name Value Range Interpretation Description Data Sup porting Code Source(s) Document(s ) Erythrocytes NEGATIVE [place] [#/volume] in Hospital Urine by Test strip ID Date Data Source [id number] 12/16/2019 03:13:00 AM EDT [facility] Value Range Interpretation Code Description Data Bryanna rce(s) Supporting Document(s ) Bilirubin. NEGATIVE [place] total Hospital [Presence] in Urine by Test strip ID Date Data Source [id number] 12/16/2019 03:13:00 AM EDT [facility] Value Range Interpretation Description Data Sup porting Code Source(s) Document(s ) Urobilinogen 0.2 [place] [Units/volume] mg/dL Hospital in Urine by Test strip ID Date Data Source [id number] 12/16/2019 03:13:00 AM EDT [facility] Name Value Range Interpretation Code Description Data Bryanna rce(s) Supporting Document(s ) Ketones 3+ [place] [Mass/volume Hospital ] in Urine by Test strip ID Date Data Source [id number] 12/16/2019 03:13:00 AM EDT [facility] Name Value Range Interpretation Code Description Data Bryanna rce(s) Supporting Document(s ) Glucose 3+ [place] [Mass/volume Hospital ] in Urine by Test strip ID Date Data Source [id number] 12/16/2019 03:13[facility] Value Range Interpretation Description Data Sup porting Code Source(s) Document(s ) Protein NEGATIVE [place] [Presence] Hospital in Urine by Test strip ID Date Data Source [id number] 12/16/2019 03:13[facility] Value Range Interpretation Code Description Data Bryanna rce(s) Supporting Document(s ) pH of Urine 5.0 [place] by Test Hospital strip ID Date Data Source [id number] 12/16/2019 03:13:00 AM EDT [facility] Value Range Interpretation Code Description Data Supporting Source(s) Document(s ) Specific 1.024 [place] gravity of Hospital Urine by Test strip ID Date Data Source [id number] 12/16/2019 [facility]:13[facility] Interpretation Description Data Sup porting Code Source(s) Document(s ) Clarity in Urine CLEAR [place] by Refractometry Hospital automated ID Date Data Source [id number] 12/16/2019 [facility]:13[facility] Interpretation Code Description Data Bryanna rce(s) Supporting Document(s ) Color of YELLOW [place] Urine Hospital ID Date Data Source [id number] 12/16/2019 03:13[facility] Interpretation Description Data Sup porting Code Source(s) Document(s ) Mucus PRESENT [place] [Presence] in Hospital Urine sediment by Light microscopy ID Date Data Source [id number] 12/16/2019 03:13[facility] Range Interpretation Description Data Sup porting Code Source(s) Document(s ) Epithelial 3+ [place] cells.[facility] [#/area] in Urine sediment by Microscopy high power field ID Date Data Source [id number] 12/16/2019 03:13[facility] Range Interpretation Description Data Sup porting Code Source(s) Document(s ) Bacteria OCCASIONAL [place] [#/area] in Hospital Urine sediment by Microscopy high power field ID Date Data Source [id number] 12/16/2019 03:13:00 AM EDT [facility] Name Value Range Interpretation Description Data Sup porting Code Source(s) Document(s ) Erythrocytes 0-3 [place] [#/area] in /[HPF] Hospital Urine sediment by Microscopy high power field ID Date Data Source [id number] 12/16/2019 03:13:00 AM EDT [facility] Name Value Range Interpretation Description Data Sup porting Code Source(s) Document(s ) Leukocytes 10-20 [place] [#/area] in /[HPF] Hospital Urine sediment by Microscopy high power field ID Date Data Source [id number] 12/15/2019 10:40:00 PM EDT [facility] Name Value Range Interpretation Description Data Sup porting Code Source(s) Document(s ) GLUCOSE MD Notified [address] ID Date Data Source [id number] 12/15/2019 08:15:00 PM EDT [facility] Value Range Interpretation Code Description Data Bryanna rce(s) Supporting Document(s ) ABG MODE Room Air [facility] ID Date Data Source [id number] 12/15/2019 08:15:00 PM EDT [facility] Name Value Range Interpretation Code Description Data Supporting Source(s) Document(s ) ABG SITE Left Radial [facility] ID Date Data Source [id number] 12/15/2019 08:15:00 PM EDT [facility] Value Range Interpretation Code Description Data Supporting Source(s) Document(s ) ABG SOURCE ARTERIAL [facility] ID Date Data Source [id number] 12/15/2019 08:15:00 PM EDT [facility] Name Value Range Interpretation Code Description Data Bryanna rce(s) Supporting Document(s ) READ BACK Yes/ [facility] ID Date Data Source [id number] 12/15/2019 08:15:00 PM EDT [facility] Value Range Interpretation Code Description Data Bryanna rce(s) Supporting Document(s ) NOTE WHO DR LITTLEJOHN [facility] ID Date Data Source [id number] 12/15/2019 08:15:00 PM EDT [facility] Name Value Range Interpretation Description Data Sup porting Code Source(s) Document(s ) IONIZED 1.53 [place] CALCIUM mmol/L Hospital ID Date Data Source [id number] 12/15/2019 08:15:00 PM EDT [facility] Value Range Interpretation Code Description Data Supporting Source(s) Document(s ) METHEMOGLOBIN 0.8 % [facility] ID Date Data Source [id number] 12/15/2019 08:15:00 PM EDT [facility] Value Range Interpretation Description Data Sup porting Code Source(s) Document(s ) CARBOXYHEMOGLOBIN 0.6 % [facility] ID Date Data Source [id number] 12/15/2019 08:15:00 PM EDT [facility] Value Range Interpretation Code Description Data Bryanna rce(s) Supporting Document(s ) ABG TEMP 98.0 [facility] ID Date Data Source [id number] 12/15/2019 08:15:00 PM EDT [facility] Value Range Interpretation Code Description Data Bryanna rce(s) Supporting Document(s ) FIO2 21 % [facility] ID Date Data Source [id number] 12/15/2019 08:15:00 PM EDT [facility] Value Range Interpretation Code Description Data Bryanna rce(s) Supporting Document(s ) ABG BE -13.7 [place] mmol/L Hospital ID Date Data Source [id number] 12/15/2019 08:15:00 PM EDT [facility] Value Range Interpretation Code Description Data Bryanna rce(s) Supporting Document(s ) ABG O2SAT 96 % [facility] ID Date Data Source [id number] 12/15/2019 08:15:00 PM EDT [facility] Value Range Interpretation Code Description Data Bryanna rce(s) Supporting Document(s ) ABG HCO3 11 mmol/L [facility] ID Date Data Source [id number] 12/15/2019 08:15:00 PM EDT [facility] Value Range Interpretation Code Description Data Bryanna rce(s) Supporting Document(s ) ABG PO2 87 mm[Hg] [facility] ID Date Data Source [id number] 12/15/2019 08:15:00 PM EDT [facility] Value Range Interpretation Code Description Data Bryanna rce(s) Supporting Document(s ) ABG PCO2 25 mm[Hg] [facility] ID Date Data Source [id number] 12/15/2019 08:15:00 PM EDT [facility] Value Range Interpretation Code Description Data Bryanna rce(s) Supporting Document(s ) ABG PH 7.28 [facility] ID Date Data Source [id number] 12/15/2019 08:15:00 PM EDT [facility] Value Range Interpretation Code Description Data Bryanna rce(s) Supporting Document(s ) ABG MODE Room Air [facility] ID Date Data Source [id number] 12/15/2019 08:15:00 PM EDT [facility] Name Value Range Interpretation Code Description Data Supporting Source(s) Document(s ) ABG SITE Left Radial [facility] ID Date Data Source [id number] 12/15/2019 08:15:00 PM EDT [facility] Name Value Range Interpretation Code Description Data Supporting Source(s) Document(s ) ABG SOURCE ARTERIAL [facility] ID Date Data Source [id number] 12/15/2019 08:15:00 PM EDT [facility] Name Value Range Interpretation Code Description Data Bryanna rce(s) Supporting Document(s ) JORGE TEST POSITIVE [facility] ID Date Data Source [id number] 12/15/2019 08:15:00 PM EDT [facility] Name Value Range Interpretation Code Description Data Bryanna rce(s) Supporting Document(s ) ABG MODE Room Air [facility] ID Date Data Source [id number] 12/15/2019 08:15:00 PM EDT [facility] Name Value Range Interpretation Code Description Data Supporting Source(s) Document(s ) ABG SITE Left [facility] ID Date Data Source [id number] 12/15/2019 08:15:00 PM EDT [facility] Name Value Range Interpretation Code Description Data Supporting Source(s) Document(s ) ABG SOURCE ARTERIAL [facility] ID Date Data Source [id number] 12/15/2019 08:15:00 PM EDT [facility] Name Value Range Interpretation Code Description Data Bryanna rce(s) Supporting Document(s ) READ BACK Yes/MD [facility] ID Date Data Source [id number] 12/15/2019 08:15:00 PM EDT [facility] Name Value Range Interpretation Code Description Data Bryanna rce(s) Supporting Document(s ) READ BACK Yes/MD [facility] ID Date Data Source [id number] 12/15/2019 08:15:00 PM EDT [facility] Value Range Interpretation Code Description Data Bryanna rce(s) Supporting Document(s ) NOTE WHO DR LITTLEJOHN [facility] ID Date Data Source [id number] 12/15/2019 08:15:00 PM EDT [facility] Value Range Interpretation Description Data Sup porting Code Source(s) Document(s ) IONIZED 1.53 [place] CALCIUM mmol/L Hospital ID Date Data Source [id number] 12/15/2019 08:15:00 PM EDT [facility] Value Range Interpretation Code Description Data Supporting Source(s) Document(s ) METHEMOGLOBIN 0.8 % [facility] ID Date Data Source [id number] 12/15/2019 08:15:00 PM EDT [facility] Value Range Interpretation Description Data Sup porting Code Source(s) Document(s ) CARBOXYHEMOGLOBIN 0.6 % [facility] ID Date Data Source [id number] 12/15/2019 08:15:00 PM EDT [facility] Value Range Interpretation Code Description Data Bryanna rce(s) Supporting Document(s ) ABG TEMP 98.0 [facility] ID Date Data Source [id number] 12/15/2019 08:15:00 PM EDT [facility] Value Range Interpretation Code Description Data Bryanna rce(s) Supporting Document(s ) FIO2 21 % [facility] ID Date Data Source [id number] 12/15/2019 08:15:00 PM EDT [facility] Value Range Interpretation Code Description Data Bryanna rce(s) Supporting Document(s ) ABG BE -13.7 [place] mmol/L Hospital ID Date Data Source [id number] 12/15/2019 08:15:00 PM EDT [facility] Value Range Interpretation Code Description Data Bryanna rce(s) Supporting Document(s ) ABG O2SAT 96 % [facility] ID Date Data Source [id number] 12/15/2019 08:15:00 PM EDT [facility] Value Range Interpretation Code Description Data Bryanna rce(s) Supporting Document(s ) ABG HCO3 11 mmol/L [facility] ID Date Data Source [id number] 12/15/2019 08:15:00 PM EDT [facility] Value Range Interpretation Code Description Data Bryanna rce(s) Supporting Document(s ) ABG PO2 87 mm[Hg] [facility] ID Date Data Source [id number] 12/15/2019 08:15:00 PM EDT [facility] Value Range Interpretation Code Description Data Bryanna rce(s) Supporting Document(s ) ABG PCO2 25 mm[Hg] [facility] ID Date Data Source [id number] 12/15/2019 08:15:00 PM EDT [facility] Value Range Interpretation Code Description Data Bryanna rce(s) Supporting Document(s ) ABG PH 7.28 [facility] ID Date Data Source [id number] 12/15/2019 08:15:00 PM EDT [facility] Value Range Interpretation Code Description Data Bryanna rce(s) Supporting Document(s ) ABG MODE Room Air [facility] ID Date Data Source [id number] 12/15/2019 08:15:00 PM EDT [facility] Value Range Interpretation Code Description Data Supporting Source(s) Document(s ) ABG SITE Left Radial [facility] ID Date Data Source [id number] 12/15/2019 08:15:00 PM EDT [facility] Name Value Range Interpretation Code Description Data Supporting Source(s) Document(s ) ABG SOURCE ARTERIAL [facility] ID Date Data Source [id number] 12/15/2019 08:15:00 PM EDT [facility] Name Value Range Interpretation Code Description Data Bryanna rce(s) Supporting Document(s ) JORGE TEST POSITIVE [facility] ID Date Data Source [id number] 12/15/2019 08:15:00 PM EDT [facility] Value Range Interpretation Code Description Data Bryanna rce(s) Supporting Document(s ) NOTE WHO DR LITTLEJOHN [facility] ID Date Data Source [id number] 12/15/2019 08:15:00 PM EDT [facility] Name Value Range Interpretation Description Data Sup porting Code Source(s) Document(s ) IONIZED 1.53 [place] CALCIUM mmol/L Hospital ID Date Data Source [id number] 12/15/2019 08:15:00 PM EDT [facility] Value Range Interpretation Code Description Data Supporting Source(s) Document(s ) METHEMOGLOBIN 0.8 % [facility] ID Date Data Source [id number] 12/15/2019 08:15:00 PM EDT [facility] Value Range Interpretation Description Data Sup porting Code Source(s) Document(s ) CARBOXYHEMOGLOBIN 0.6 % [facility] ID Date Data Source [id number] 12/15/2019 08:15:00 PM EDT [facility] Value Range Interpretation Code Description Data Bryanna rce(s) Supporting Document(s ) ABG TEMP 98.0 [facility] ID Date Data Source [id number] 12/15/2019 08:15:00 PM EDT [facility] Value Range Interpretation Code Description Data Bryanna rce(s) Supporting Document(s ) FIO2 21 % [facility] ID Date Data Source [id number] 12/15/2019 08:15:00 PM EDT [facility] Value Range Interpretation Code Description Data Bryanna rce(s) Supporting Document(s ) ABG BE -13.7 [place] mmol/L Hospital ID Date Data Source [id number] 12/15/2019 08:15:00 PM EDT [facility] Value Range Interpretation Code Description Data Bryanna rce(s) Supporting Document(s ) ABG O2SAT 96 % [facility] ID Date Data Source [id number] 12/15/2019 08:15:00 PM EDT [facility] Value Range Interpretation Code Description Data Bryanna rce(s) Supporting Document(s ) ABG HCO3 11 mmol/L [facility] ID Date Data Source [id number] 12/15/2019 08:15:00 PM EDT [facility] Value Range Interpretation Code Description Data Bryanna rce(s) Supporting Document(s ) ABG PO2 87 mm[Hg] [facility] ID Date Data Source [id number] 12/15/2019 08:15:00 PM EDT [facility] Value Range Interpretation Code Description Data Bryanna rce(s) Supporting Document(s ) ABG PCO2 25 mm[Hg] [facility] ID Date Data Source [id number] 12/15/2019 08:15:00 PM EDT [facility] Value Range Interpretation Code Description Data Bryanna rce(s) Supporting Document(s ) ABG PH 7.28 [facility] ID Date Data Source [id number] 12/15/2019 08:15:00 PM EDT [facility] Value Range Interpretation Code Description Data Bryanna rce(s) Supporting Document(s ) ABG MODE Room Air [facility] ID Date Data Source [id number] 12/15/2019 08:15:00 PM EDT [facility] Name Value Range Interpretation Code Description Data Supporting Source(s) Document(s ) ABG SITE Left Radial [facility] ID Date Data Source [id number] 12/15/2019 08:15:00 PM EDT [facility] Value Range Interpretation Code Description Data Supporting Source(s) Document(s ) ABG SOURCE ARTERIAL [facility] ID Date Data Source [id number] 12/15/2019 08:15:00 PM EDT [facility] Value Range Interpretation Code Description Data Bryanna rce(s) Supporting Document(s ) JORGE TEST POSITIVE [facility] ID Date Data Source [id number] 12/15/2019 07:47:00 PM EDT [facility] Value Range Interpretation Description Data Sup porting Code Source(s) Document(s ) Ammonia 21 mmol/L [place] [[facility] e] in Plasma ID Date Data Source [id number] 12/15/2019 07:47:00 PM EDT [facility] Name Value Range Interpretation Description Data Sup porting Code Source(s) Document(s ) Ammonia 21 mmol/L [place] [[facility] e] in Plasma ID Date Data Source [id number] 12/15/2019 07:47:00 PM EDT [facility] Value Range Interpretation Description Data Sup porting Code Source(s) Document(s ) Ammonia 21 mmol/L [place] [[facility] e] in Plasma ID Date Data Source [id number] 12/15/2019 07:47:00 PM EDT [facility] Name Value Range Interpretation Description Data Sup porting Code Source(s) Document(s ) Ammonia 21 mmol/L [place] [[facility] e] in Plasma ID Date Data Source [id number] 12/15/2019 07:47:00 PM EDT [facility] Name Value Range Interpretation Description Data Sup porting Code Source(s) Document(s ) Ammonia 21 mmol/L [place] [[facility] e] in Plasma ID Date Data Source [id number] 12/15/2019 06:32:00 PM EDT [facility] Name Value Range Interpretation Code Description Data Bryanna rce(s) Supporting Document(s ) Lipase 61 U/L [place] [Enzymatic Hospital activity/vo lume] in Serum or Plasma ID Date Data Source [id number] 12/15/2019 06:32:00 PM EDT [facility] Name Value Range Interpretation Code Description Data Bryanna rce(s) Supporting Document(s ) Lipase 61 U/L [place] [Enzymatic Hospital activity/vo lume] in Serum or Plasma ID Date Data Source [id number] 12/15/2019 06:32:00 PM EDT [facility] Name Value Range Interpretation Code Description Data Supporting Source(s) Document(s ) NUCLEATED RBCS 0.0 % [place] (AUTO Hospital DIFF%)DIS ID Date Data Source [id number] 12/15/2019 06:32:00 PM EDT [facility] Name Value Range Interpretation Description Data Sup porting Code Source(s) Document(s ) Differential AUTOMATED [place] cell count Hospital method - Blood ID Date Data Source [id number] 12/15/2019 06:32:00 PM EDT [facility] Name Value Range Interpretation Description Data Sup porting Code Source(s) Document(s ) Immature 0.03 [place] granulocytes 10*3/uL Hospital [#/volume] in Blood by Automated count ID Date Data Source [id number] 12/15/2019 06:32:00 PM EDT [facility] Name Value Range Interpretation Description Data Sup porting Code Source(s) Document(s ) Basophils 0.02 [place] [#/volume] in 10*3/uL Hospital Blood by Automated count ID Date Data Source [id number] 12/15/2019 06:32:00 PM EDT [facility] Name Value Range Interpretation Description Data Sup porting Code Source(s) Document(s ) Eosinophils 0.01 [place] [#/volume] in 10*3/uL Hospital Blood by Automated count ID Date Data Source [id number] 12/15/2019 06:32:00 PM EDT [facility] Name Value Range Interpretation Description Data Sup porting Code Source(s) Document(s ) Monocytes 0.99 [place] [#/volume] in 10*3/uL Hospital Blood by Automated count ID Date Data Source [id number] 12/15/2019 06:32:00 PM EDT [facility] Name Value Range Interpretation Description Data Sup porting Code Source(s) Document(s ) Lymphocytes 1.72 [place] [#/volume] in 10*3/uL Hospital Blood by Automated count ID Date Data Source [id number] 12/15/2019 06:32:00 PM EDT [facility] Name Value Range Interpretation Description Data Sup porting Code Source(s) Document(s ) Neutrophils 6.39 [place] [#/volume] in 10*3/uL Hospital Blood by Automated count ID Date Data Source [id number] 12/15/2019 06:32:00 PM EDT [facility] Name Value Range Interpretation Description Data Sup porting Code Source(s) Document(s ) Nucleated 0.0 % [place] erythrocytes/10 Hospital 0 leukocytes [Ratio] in Blood by Automated count ID Date Data Source [id number] 12/15/2019 06:32:00 PM EDT [facility] Name Value Range Interpretation Description Data Sup porting Code Source(s) Document(s ) Immature 0.3 % [place] granulocytes/10 Hospital 0 leukocytes in Blood by Automated count ID Date Data Source [id number] 12/15/2019 06:32:00 PM EDT [facility] Value Range Interpretation Description Data Sup porting Code Source(s) Document(s ) Basophils/100 0.2 % [place] leukocytes in Hospital Blood by Automated count ID Date Data Source [id number] 12/15/2019 06:32:00 PM EDT [facility] Value Range Interpretation Description Data Sup porting Code Source(s) Document(s ) Eosinophils/100 0.1 % [place] leukocytes in Hospital Blood by Automated count ID Date Data Source [id number] 12/15/2019 06:32:00 PM EDT [facility] Value Range Interpretation Description Data Sup porting Code Source(s) Document(s ) Monocytes/100 10.8 % [place] leukocytes in Hospital Blood by Automated count ID Date Data Source [id number] 12/15/2019 06:32:00 PM EDT [facility] Name Value Range Interpretation Description Data Sup porting Code Source(s) Document(s ) Lymphocytes/10 18.8 % [place] 0 leukocytes Hospital in Blood by Automated count ID Date Data Source [id number] 12/15/2019 06:32:00 PM EDT [facility] Name Value Range Interpretation Description Data Sup porting Code Source(s) Document(s ) Neutrophils/10 69.8 % [place] 0 leukocytes Hospital in Blood by Automated count ID Date Data Source [id number] 12/[facility]2019 [facility]: NONE DETECTED <20 MG/DL NONE TO MILD EUPHORIA 20-49 MG/DL MILD EUPHORIA 50-99 MG/DL MODERATE EUPHORIA 100-149 MG/DL INTOXICATION 150-300 MG/DL Name Value Range Interpretation Description Data Sup porting Code Source(s) Document(s ) Ethanol < 20 [place] [Mass/volume mg/dL Hospital ] in Serum or Plasma ID Date Data Source [id number] 12/15/2019 06:32:[address] [facility] TEST PERFORMED BY [employer] [facility] [facility] CHEMILUMINESCENCE METHOD. Name Value Range Interpretation Description Data Sup porting Code Source(s) Document(s ) Troponin 0.25 [place] I.cardiac ng/mL Hospital [Mass/volume ] in Serum or Plasma ID Date Data Source [id number] 12/15/2019 [facility]32[facility] Name Value Range Interpretation Code Description Data Bryanna rce(s) Supporting Document(s ) Lipase 61 U/L [place] [Enzymatic Hospital activity/vo lume] in Serum or Plasma ID Date Data Source [id number] 12/15/2019 06[facility]32:[facility] Name Value Range Interpretation Code Description Data Supporting Source(s) Document(s ) NUCLEATED RBCS 0.0 % [place] (AUTO Hospital DIFF%)DIS ID Date Data Source [id number] 12/15/2019 06[facility]32[facility] Name Value Range Interpretation Description Data Sup porting Code Source(s) Document(s ) Differential AUTOMATED [place] cell count Hospital method - Blood ID Date Data Source [id number] 12/15/2019 06:32:00 PM EDT [facility] Value Range Interpretation Description Data Sup porting Code Source(s) Document(s ) Immature 0.03 [place] granulocytes 10*3/uL Hospital [#/volume] in Blood by Automated count ID Date Data Source [id number] 12/15/2019 06:32:00 PM EDT [facility] Value Range Interpretation Description Data Sup porting Code Source(s) Document(s ) Basophils 0.02 [place] [#/volume] in 10*3/uL [facility] Blood by Automated count ID Date Data Source [id number] 12/15/2019 06:32:00 PM EDT [facility] Value Range Interpretation Description Data Sup porting Code Source(s) Document(s ) Eosinophils 0.01 [place] [#/volume] in 10*3/uL Hospital Blood by Automated count ID Date Data Source [id number] 12/[facility] Description Data Sup porting Code Source(s) Document(s ) Monocytes 0.99 [place] [#/volume] in 10*3/uL [facility] Blood by Automated count ID Date Data Source [id number] 12/15/2019 06:32:00 PM EDT [facility] Value Range Interpretation Description Data Sup porting Code Source(s) Document(s ) Lymphocytes 1.72 [place] [#/volume] in 10*3/uL Hospital Blood by Automated count ID Date Data Source [id number] 12/15/2019 [facility] Interpretation Description Data Sup porting Code Source(s) Document(s ) Neutrophils 6.39 [place] [#/volume] in 10*3/uL [facility] Blood by Automated count ID Date Data Source [id number] 12/15/2019 06:32:00 PM EDT [facility] Value Range Interpretation Description Data Sup porting Code Source(s) Document(s ) Nucleated 0.0 % [place] erythrocytes/10 Hospital 0 leukocytes [Ratio] in Blood by Automated count ID Date Data Source [id number] 12/15/2019 06:32:00 PM EDT [facility] Value Range Interpretation Description Data Sup porting Code Source(s) Document(s ) Immature 0.3 % [place] granulocytes/10 Hospital 0 leukocytes in Blood by Automated count ID Date Data Source [id number] 12/15/2019 06:32:00 PM EDT [facility] Value Range Interpretation Description Data Sup porting Code Source(s) Document(s ) Basophils/100 0.2 % [place] leukocytes in Hospital Blood by Automated count ID Date Data Source [id number] 12/15/2019 06:32:00 PM EDT [facility] Value Range Interpretation Description Data Sup porting Code Source(s) Document(s ) Eosinophils/100 0.1 % [place] leukocytes in Hospital Blood by Automated count ID Date Data Source [id number] 12/15/2019 06:32:00 PM EDT [facility] Value Range Interpretation Description Data Sup porting Code Source(s) Document(s ) Monocytes/100 10.8 % [place] leukocytes in Hospital Blood by Automated count ID Date Data Source [id number] 12/15/2019 06:32:00 PM EDT [facility] Value Range Interpretation Description Data Sup porting Code Source(s) Document(s ) Lymphocytes/10 18.8 % [place] 0 leukocytes Hospital in Blood by Automated count ID Date Data Source [id number] 12/15/2019 06:32:00 PM EDT [facility] Name Value Range Interpretation Description Data Sup porting Code Source(s) Document(s ) Neutrophils/10 69.8 % [place] 0 leukocytes Hospital in Blood by Automated count ID Date Data Source [id number] 12/03/2019 12:14:[facility] Informatics Analyst:CAROL MCGUIRENNEKASHARRON Name Value Range Interpretation Description Data Sup porting Code Source(s) Document(s ) Glucose 243 mg/dL [place] [Mass/volume] Hospital in Capillary blood by Glucometer ID Date Data Source [id number] 12/03/2019 10:39:[facility] Name Value Range Interpretation Description Data Sup porting Code Source(s) Document(s ) GLUCOSE RN Notified [facility] ID Date Data Source [id number] 12/03/2019 07:11:[address] [facility] NOTIFICATION AND READ BACK OF CRITICAL R ESULTS TO KP KRUSE RN 4E AT 0826 ON 12/03/19 BY Jessica Quinteros.REPORTED CR ITICAL VALUES SHOULD BE INTERPRETED WITHIN CLINICAL CONTEXT. Name Value Range Interpretation Description Data Sup porting Code Source(s) Document(s ) Ammonia 56 mmol/L [place] [Moles/volum Hospital e] in Plasma ID Date Data Source [id number] 12/03/2019 07:11:00 AM EDT [facility] Name Value Range Interpretation Description Data Sup porting Code Source(s) Document(s ) Calcium 8.2 mg/dL [place] [Mass/volume Hospital ] in Serum or Plasma ID Date Data Source [id number] 12/03/2019 07:11:[facility] Name Value Range Interpretation Code Description Data Bryanna rce(s) Supporting Document(s ) Urea 11.4 [place] nitrogen/Cre Hospital atinine [Mass Ratio] in Serum or Plasma ID Date Data Source [id number] 12/03/2019 07:11:00 AM EDT [facility] Name Value Range Interpretation Description Data Sup porting Code Source(s) Document(s ) Creatinine 0.7 mg/dL [place] [Mass/volume] Hospital in Serum or Plasma ID Date Data Source [id number] 12/03/2019 07:11:00 AM EDT [facility] Value Range Interpretation Description Data Sup porting Code Source(s) Document(s ) Urea nitrogen 8 mg/dL [place] [Mass/volume] Hospital in Serum or Plasma ID Date Data Source [id number] 12/03/2019 07:11:00 AM EDT [facility] Value Range Interpretation Code Description Data Bryanna rce(s) Supporting Document(s ) Anion gap in 13 [place] Serum or [facility] Plasma ID Date Data Source [id number] 12/03/2019 07:11:00 AM EDT [facility] Value Range Interpretation Description Data Sup porting Code Source(s) Document(s ) Carbon 25 mmol/L [place] dioxide, Hospital total [Moles/volu me] in Serum or Plasma ID Date Data Source [id number] 12/03/2019 07:11:00 AM EDT [facility] Name Value Range Interpretation Description Data Sup porting Code Source(s) Document(s ) Chloride 99 mmol/L [place] [Moles/volum Hospital e] in Serum or Plasma ID Date Data Source [id number] 12/03/2019 07:11:00 AM EDT [facility] Value Range Interpretation Description Data Sup porting Code Source(s) Document(s ) Potassium 3.8 [place] [Moles/volume mmol/L Hospital ] in Serum or Plasma ID Date Data Source [id number] 12/03/2019 07:11:00 AM EDT [facility] Value Range Interpretation Description Data Sup porting Code Source(s) Document(s ) Sodium 133 mmol/L [place] [[facility] [place]/volu [facility]] in Serum or Plasma ID Date Data Source [id number] 12/03/2019 07:11:00 AM EDT [facility] Value Range Interpretation Description Data Sup porting Code Source(s) Document(s ) Glucose 353 mg/dL [place] [Mass/volume Hospital ] in Serum or Plasma ID Date Data Source [id number] 12/02/2019 07:56:00 AM EDT [facility] Value Range Interpretation Code Description Data Supporting Source(s) Document(s ) NUCLEATED RBCS 0.0 % [place] (AUTO Hospital DIFF%)DIS ID Date Data Source [id number] 12/[facility] Interpretation Description Data Sup porting Code Source(s) Document(s ) Differential AUTOMATED [place] cell count [facility] method - Blood ID Date Data Source [id number] 12/02/2019 07:56:00 AM EDT [facility] Value Range Interpretation Description Data Sup porting Code Source(s) Document(s ) Immature 0.01 [place] granulocytes 10*3/uL Hospital [#/volume] in Blood by Automated count ID Date Data Source [id number] 12/02/2019 07:56:00 AM EDT [facility] Value Range Interpretation Description Data Sup porting Code Source(s) Document(s ) Basophils 0.04 [place] [#/volume] in 10*3/uL Hospital Blood by Automated count ID Date Data Source [id number] 12/02/2019 07:56:00 AM EDT [facility] Value Range Interpretation Description Data Sup porting Code Source(s) Document(s ) Eosinophils 0.12 [place] [#/volume] in 10*3/uL Hospital Blood by Automated count ID Date Data Source [id number] 12/02/2019 07:56:00 AM EDT [facility] Value Range Interpretation Description Data Sup porting Code Source(s) Document(s ) Monocytes 0.51 [place] [#/volume] in 10*3/uL Hospital Blood by Automated count ID Date Data Source [id number] 12/02/2019 07:56:00 AM EDT [facility] Value Range Interpretation Description Data Sup porting Code Source(s) Document(s ) Lymphocytes 1.89 [place] [#/volume] in 10*3/uL Hospital Blood by Automated count ID Date Data Source [id number] 12/02/2019 07:56:00 AM EDT [facility] Value Range Interpretation Description Data Sup porting Code Source(s) Document(s ) Neutrophils 1.81 [place] [#/volume] in 10*3/uL Hospital Blood by Automated count ID Date Data Source [id number] 12/02/2019 07:56:00 AM EDT [facility] Value Range Interpretation Description Data Sup porting Code Source(s) Document(s ) Nucleated 0.0 % [place] erythrocytes/10 Hospital 0 leukocytes [Ratio] in Blood by Automated count ID Date Data Source [id number] 12/02/2019 07:56:00 AM EDT [facility] Value Range Interpretation Description Data Sup porting Code Source(s) Document(s ) Immature 0.2 % [place] granulocytes/10 Hospital 0 leukocytes in Blood by Automated count ID Date Data Source [id number] 12/02/2019 07:56:00 AM EDT [facility] Name Value Range Interpretation Description Data Sup porting Code Source(s) Document(s ) Basophils/100 0.9 % [place] leukocytes in Hospital Blood by Automated count ID Date Data Source [id number] 12/02/2019 07:56:00 AM EDT [facility] Name Value Range Interpretation Description Data Sup porting Code Source(s) Document(s ) Eosinophils/100 2.7 % [place] leukocytes in Hospital Blood by Automated count ID Date Data Source [id number] 12/02/2019 07:56:00 AM EDT [facility] Name Value Range Interpretation Description Data Sup porting Code Source(s) Document(s ) Monocytes/100 11.6 % [place] leukocytes in [facility] Blood by Automated count ID Date Data Source [id number] 12/02/2019 07:56:00 AM EDT [facility] Name Value Range Interpretation Description Data Sup porting Code Source(s) Document(s ) Lymphocytes/10 43.2 % [place] 0 leukocytes Hospital in Blood by Automated count ID Date Data Source [id number] 12/02/2019 07:56:00 AM EDT [facility] Value Range Interpretation Description Data Sup porting Code Source(s) Document(s ) Neutrophils/10 41.4 % [place] 0 leukocytes Hospital in Blood by Automated count ID Date Data Source [id number] 12/02/2019 07:56:00 AM EDT [facility] Name Value Range Interpretation Description Data Sup porting Code Source(s) Document(s ) Platelet mean 13.8 fL [place] volume Hospital [Entitic volume] in Blood by Automated count ID Date Data Source [id number] 12/02/2019 07:56:00 AM EDT [facility] Name Value Range Interpretation Description Data Sup porting Code Source(s) Document(s ) Platelets 143 [place] [#/volume] in 10*3/uL Hospital Blood by Automated count ID Date Data Source [id number] 12/02/2019 07:56:00 AM [facility] Value Range Interpretation Description Data Sup porting Code Source(s) Document(s ) Erythrocyte 14.3 % [place] distribution Hospital width [Ratio] by Automated count ID Date Data Source [id number] 12/02/2019 07:56:00 AM EDT [facility] Value Range Interpretation Description Data Sup porting Code Source(s) Document(s ) Erythrocyte mean 34.2 [place] corpuscular g/dL Hospital hemoglobin concentration [Mass/volume] by Automated count ID Date Data Source [id number] 12/02/2019 07[facility]56[facility] Value Range Interpretation Description Data Sup porting Code Source(s) Document(s ) Erythrocyte 30.5 pg [facility] corpuscular hemoglobin [Entitic mass] by Automated count ID Date Data Source [id number] 12/02/2019 07:56:00 AM [facility] Value Range Interpretation Description Data Sup porting Code Source(s) Document(s ) Erythrocyte 89.2 fL [facility] corpuscular volume [Entitic volume] by Automated count ID Date Data Source [id number] 12/02/2019 07:56:00 AM [facility] Value Range Interpretation Description Data Sup porting Code Source(s) Document(s ) Hematocrit 34.8 % [place] [Volume Hospital Fraction] of Blood by Automated count ID Date Data Source [id number] 12/02/2019 07:56:[facility] Value Range Interpretation Description Data Sup porting Code Source(s) Document(s ) Hemoglobin 11.9 g/dL [place] [Mass/volume] Hospital in Blood ID Date Data Source [id number] 12/02/2019 07:56:00 AM EDT [facility] Name Value Range Interpretation Description Data Sup porting Code Source(s) Document(s ) Erythrocytes 3.90 [place] [#/volume] in 10*6/uL Hospital Blood by Automated count ID Date Data Source [id number] 12/02/2019 07:56:00 AM EDT [facility] Name Value Range Interpretation Description Data Sup porting Code Source(s) Document(s ) Leukocytes 4.4 [place] [#/volume] in 10*3/uL Hospital Blood by Automated count ID Date Data Source [id number] 12/01/2019 07:50:00 AM EDT [facility] Name Value Range Interpretation Description Data Sup porting Code Source(s) Document(s ) Aspartate 65 U/L [place] aminotransferase [place] [Enzymatic Hospital activity/volume] in Serum or Plasma ID Date Data Source [id number] 12/01/2019 07:50:00 AM EDT [facility] Name Value Range Interpretation Description Data Sup porting Code Source(s) Document(s ) Alanine 38 U/L [place] aminotransferase [place] [Enzymatic Hospital activity/volume] in Serum or Plasma ID Date Data Source [id number] 12/01/2019 07:50:00 AM EDT [facility] Name Value Range Interpretation Description Data Sup porting Code Source(s) Document(s ) Alkaline 69 U/L [facility] [Enzymatic activity/volume ] in Serum or Plasma ID Date Data Source [id number] 12/01/2019 07:50:00 AM EDT [facility] Name Value Range Interpretation Description Data Sup porting Code Source(s) Document(s ) Bilirubin.t 1.3 mg/dL [place] otal [facility] [Mass/volum e] in Serum or Plasma ID Date Data Source [id number] 12/01/2019 07:50:00 AM EDT [facility] Name Value Range Interpretation Code Description Data Bryanna rce(s) Supporting Document(s ) Albumin/Glob 1.1 [place] ulin [Mass Hospital Ratio] in Serum or Plasma ID Date Data Source [id number] 12/01/2019 07:50:00 AM EDT [facility] Name Value Range Interpretation Description Data Sup porting Code Source(s) Document(s ) Albumin 3.4 g/dL [place] [Mass/volume Hospital ] in Serum or Plasma ID Date Data Source [id number] 12/01/2019 07:50:00 AM EDT [facility] Name Value Range Interpretation Description Data Sup porting Code Source(s) Document(s ) Protein 6.4 g/dL [place] [Mass/volume Hospital ] in Serum or Plasma ID Date Data Source [id number] 11/30/2019 05:09:00 PM EDT [facility] CUT-OFF >= 25 NG/ML.THE FINDINGS [...] rce(s) Supporting Document(s ) PCP (UR) NEGATIVE [facility] ID Date Data Source [id number] 11/30/2019 05:09:00 PM EDT [facility] CUT-OFF >= 50 NG/ML. Name Value Range Interpretation Code Description Data Bryanna rce(s) Supporting Document(s ) THC (UR) NEGATIVE [facility] ID Date Data Source [id number] 11/30/2019 05:09:00 PM EDT [facility] CUT-OFF >= 300 NG/ML. Name Value Range Interpretation Description Data Sup porting Code Source(s) Document(s ) OPIATES (UR) NEGATIVE [facility] ID Date Data Source [id number] [facility]2019 [facility] 300 NG/ML. Name Value Range Interpretation Description Data Sup porting Code Source(s) Document(s ) COCAINE (UR) NEGATIVE [facility] ID Date Data Source [id number] 11/30/2019 05:09:[address] [facility] CUT-OFF >= 200 NG/ML. Name Value Range Interpretation Description Data Sup porting Code Source(s) Document(s ) BENZODIAZEPINES NEGATIVE [place] (UR) [facility] ID Date Data Source [id number] 11/30/2019 05:09:[address] [facility] CUT-OFF >= 200 NG/ML. Name Value Range Interpretation Description Data Sup porting Code Source(s) Document(s ) BARBITURATES NEGATIVE [place] (UR) Hospital ID Date Data Source [id number] 11/30/2019 05:09:[address] [facility] CUT-OFF >= 1000 NG/ML. Name Value Range Interpretation Description Data Sup porting Code Source(s) Document(s ) AMPHETAMINES NEGATIVE [place] (UR) Hospital ID Date Data Source [id number] 11/30/2019 05:09:[address] [facility] Name Value Range Interpretation Description Data Sup porting Code Source(s) Document(s ) Leukocyte NEGATIVE [facility] Hospital [Presence] in Urine by Test strip ID Date Data Source [id number] 11/30/2019 05:09:[address] [facility] Name Value Range Interpretation Description Data Sup porting Code Source(s) Document(s ) URINE NEGATIVE [place] NITRITES Hospital ID Date Data Source [id number] 11/30/2019 05:09:00 PM EDT [facility] Name Value Range Interpretation Description Data Sup porting Code Source(s) Document(s ) Erythrocytes NEGATIVE [place] [#/volume] in Hospital Urine by Test strip ID Date Data Source [id number] 11/30/2019 05:09:00 PM EDT [facility] Name Value Range Interpretation Code Description Data Bryanna rce(s) Supporting Document(s ) Bilirubin. NEGATIVE [place] total Hospital [Presence] in Urine by Test strip ID Date Data Source [id number] 11/30/2019 05:09:00 PM EDT [facility] Name Value Range Interpretation Description Data Sup porting Code Source(s) Document(s ) Urobilinogen 1.0 [place] [Units/volume] mg/dL Hospital in Urine by Test strip ID Date Data Source [id number] 11/30/2019 [facility] Value Range Interpretation Description Data Sup porting Code Source(s) Document(s ) Ketones NEGATIVE [place] [Mass/volume Hospital ] in Urine by Test strip ID Date Data Source [id number] 11/30/2019 05:09:00 PM EDT [facility] Name Value Range Interpretation Code Description Data Bryanna rce(s) Supporting Document(s ) Glucose TRACE [place] [Mass/volume Hospital ] in Urine by Test strip ID Date Data Source [id number] 11/30/2019 05:09:00 PM EDT [facility] Name Value Range Interpretation Description Data Sup porting Code Source(s) Document(s ) Protein NEGATIVE [place] [Presence] Hospital in Urine by Test strip ID Date Data Source [id number] 11/30/2019 05:09:[address] [facility] Name Value Range Interpretation Code Description Data Bryanna rce(s) Supporting Document(s ) pH of Urine 7.5 [place] by Test Hospital strip ID Date Data Source [id number] 11/30/2019 05:09:[address] [facility] Name Value Range Interpretation Code Description Data Supporting Source(s) Document(s ) Specific 1.012 [place] gravity of [facility] Urine by Test strip ID Date Data Source [id number] 11/30/2019 05:09:[address] [facility] Name Value Range Interpretation Description Data Sup porting Code Source(s) Document(s ) Clarity in Urine CLEAR [place] by [facility]ract[facility] automated ID Date Data Source [id number] 11/30/2019 05:09:[address] [facility] Name Value Range Interpretation Code Description Data Bryanna rce(s) Supporting Document(s ) Color of YELLOW [place] Urine Hospital ID Date Data Source [id number] 11/30/2019 03:51:[address] [facility] THERAPEUTIC RANGES:UNFRACTIONATED HEPARI N THERAPY: 60-90 SECONDSARGATROBAN THERAPY: 49-99 SECONDS Name Value Range Interpretation Description Data Sup porting Code Source(s) Document(s ) aPTT in 28.3 s [place] Platelet poor [facility] plasma by Coagulation assay ID Date Data Source [id number] 11/30/2019 03:51:[address] [facility] THERAPEUTIC RANGE FOR STANDARD ORALANTIC OAGULANT THERAPY: 2.0-3.0THERAPEUTIC RANGE FOR HIGH DOSE ORALANTICOAGULANT THERAPY (MECHANICAL HEARTVALVE REPLACEMENT): 2.5-3.5 Name Value Range Interpretation Description Data Sup porting Code Source(s) Document(s ) INR in Platelet 1.0 [place] poor plasma by Hospital Coagulation assay ID Date Data Source [id number] 11/30/2019 03:51[facility] Value Range Interpretation Description Data Sup porting Code Source(s) Document(s ) PT panel - 11.8 s [place] Platelet poor [facility] plasma by Coagulation assay ID Date Data Source [id number] 11/30/2019 03:36[facility] Value Range Interpretation Description Data Sup porting Code Source(s) Document(s ) Thyroxine 0.7 ng/dL [place] (T4) [facility] [Mass/volume] in Serum or Plasma ID Date Data Source [id number] 11/30/2019 03:36:00 PM [facility] Value Range Interpretation Description Data Sup porting Code Source(s) Document(s ) Thyrotropin 2.072 [place] [Units/volume] u[IU]/mL Hospital in Serum or Plasma by Detection limit <= 0.005 mIU/L ID Date Data Source [id number] 11/30/2019 03:36:00 PM [facility] Value Range Interpretation Description Data Sup porting Code Source(s) Document(s ) Thyroxine 0.7 ng/dL [place] (T4) [facility] [Mass/volume] in Serum or Plasma ID Date Data Source [id number] 11/30/2019 03:36:00 PM [facility] Value Range Interpretation Description Data Sup porting Code Source(s) Document(s ) Thyrotropin 2.072 [place] [Units/volume] u[IU]/mL Hospital in Serum or Plasma by Detection limit <= 0.005 mIU/L ID Date Data Source [id number] 11/30/2019 03:36[facility] Value Range Interpretation Description Data Sup porting Code Source(s) Document(s ) Thyroxine 0.7 ng/dL [place] (T4) [facility] Hospital [Mass/volume] in Serum or Plasma ID Date Data Source [id number] 11/30/2019 03:36:[address] [facility] Name Value Range Interpretation Description Data Sup porting Code Source(s) Document(s ) Thyrotropin 2.072 [place] [Units/volume] u[IU]/mL Hospital in Serum or Plasma by Detection limit <= 0.005 mIU/L ID Date Data Source [id number] 11/30/2019 03:36:[address] [facility] UNITS ARE IN ml/min/1.73m2.IF PATIENT IS -[place], MULTIPLY REPORTED RESULT BY 1.21. Name Value Range Interpretation Description Data Sup porting Code Source(s) Document(s ) Glomerular > 60 [place] filtration mL/min Hospital rate/1.73 sq M.predicted [Volume Rate/Area] in Serum or Plasma by Creatinine-bas ed formula (MDRD) ID Date Data Source [id number] 11/30/2019 02:18:[address] [facility] TEST RESULT IS A TOTAL TRICYCLIC [...] Code Source(s) Document(s ) TRICYCLIC < 80 [place] ANTIDEPRESSANT ng/mL Hospital ID Date Data Source [id number] 11/30/2019 02:18:[address] [facility] REFERENCE RANGES: ANALGESIC: 0.0 - 10.0 MG/DL. ARTHRITIC THERAPY: 15.0 - 30.0 MG/DL. Name Value Range Interpretation Description Data Sup porting Code Source(s) Document(s ) Salicylates < 3.0 [place] [Mass/volume] mg/dL Hospital in Serum or Plasma ID Date Data Source [id number] 11/30/2019 02:18:[address] [facility] THERAPEUTIC RANGE: 10.0-30.0 UG/MLTOXIC RANGE: 4 HRS AFTER INGESTION >150 UG/ML 12 HRS AFTER INGESTION >35 UG/ML Name Value Range Interpretation Description Data Sup porting Code Source(s) Document(s ) ACETAMINOPHEN < 10.0 [place] ug/mL Hospital ID Date Data Source [id number] 11/30/2019 02:18:[address] [facility] Name Value Range Interpretation Description Data Sup porting Code Source(s) Document(s ) OSMOLALITY 310 [place] (SERUM) mosm/kg Hospital ID Date Data Source [id number] 11/30/2019 02:18:[address] [facility] TEST RESULT IS A TOTAL TRICYCLIC [...] Code Source(s) Document(s ) TRICYCLIC < 80 [place] ANTIDEPRESSANT ng/mL Hospital ID Date Data Source [id number] 11/30/2019 02:18:[address] [facility] REFERENCE RANGES: ANALGESIC: 0.0 - 10.0 MG/DL. ARTHRITIC THERAPY: 15.0 - 30.0 MG/DL. Name Value Range Interpretation Description Data Sup porting Code Source(s) Document(s ) Salicylates < 3.0 [place] [Mass/volume] mg/dL Hospital in Serum or Plasma ID Date Data Source [id number] 11/30/2019 02:18:[address] [facility] THERAPEUTIC RANGE: 10.0-30.0 UG/MLTOXIC RANGE: 4 HRS AFTER INGESTION >150 UG/ML 12 HRS AFTER INGESTION >35 UG/ML Name Value Range Interpretation Description Data Sup porting Code Source(s) Document(s ) ACETAMINOPHEN < 10.0 [place] ug/mL Hospital ID Date Data Source [id number] 11/30/2019 02:18:[address] [facility] Name Value Range Interpretation Description Data Sup porting Code Source(s) Document(s ) OSMOLALITY 310 [place] (SERUM) mosm/kg Hospital ID Date Data Source [id number] 11/30/2019 02:18:[address] [facility] REFERENCE RANGES: NONE DETECTED <20 MG/DL NONE TO MILD EUPHORIA 20-49 MG/DL MILD EUPHORIA 50-99 MG/DL MODERATE EUPHORIA 100-149 MG/DL INTOXICATION 150-300 MG/DL Name Value Range Interpretation Description Data Sup porting Code Source(s) Document(s ) Ethanol < 20 [place] [Mass/volume mg/dL Hospital ] in Serum or Plasma ID Date Data Source [id number] 11/30/2019 02:18:[address] [facility] TEST RESULT IS A TOTAL TRICYCLIC [...] Code Source(s) Document(s ) TRICYCLIC < 80 [place] ANTIDEPRESSANT ng/mL Hospital ID Date Data Source [id number] 11/30/2019 02:18:[address] [facility] REFERENCE RANGES: ANALGESIC: 0.0 - 10.0 MG/DL. ARTHRITIC THERAPY: 15.0 - 30.0 MG/DL. Name Value Range Interpretation Description Data Sup porting Code Source(s) Document(s ) Salicylates < 3.0 [place] [Mass/volume] mg/dL Hospital in Serum or Plasma ID Date Data Source [id number] 11/30/2019 02:18:[address] [facility] THERAPEUTIC RANGE: 10.0-30.0 UG/MLTOXIC RANGE: 4 HRS AFTER INGESTION >150 UG/ML 12 HRS AFTER INGESTION >35 UG/ML Name Value Range Interpretation Description Data Sup porting Code Source(s) Document(s ) ACETAMINOPHEN < 10.0 [place] ug/mL Hospital ID Date Data Source [id number] 11/30/2019 02:18:[address] [facility] TEST PERFORMED BY [employer] [facility]ENS[facility] CHEMILUMINESCENCE METHOD. Name Value Range Interpretation Description Data Sup porting Code Source(s) Document(s ) Troponin < 0.01 [place] I.cardiac ng/mL Hospital [Mass/volume ] in Serum or Plasma ID Date Data Source [id number] 11/30/2019 02:18:[address] [facility] Name Value Range Interpretation Description Data Sup porting Code Source(s) Document(s ) OSMOLALITY 310 [place] (SERUM) mosm/kg Hospital ID Date Data Source [id number] 11/30/2019 02:18:[address] [facility] Name Value Range Interpretation Code Description Data Bryanna rce(s) Supporting Document(s ) Lipase 31 U/L [place] [Enzymatic Hospital activity/vo lume] in Serum or Plasma ID Date Data Source [id number] 11/29/2019 08:03[facility]RAFAEL TRISHSHARRON Name Value Range Interpretation Description Data Sup porting Code Source(s) Document(s ) Glucose 309 mg/dL [place] [Mass/volume] [facility] in Capillary blood by Glucometer ID Date Data Source [id number] 11/29/2019 07:58:00 AM EDT [facility] Name Value Range Interpretation Code Description Data Bryanna rce(s) Supporting Document(s ) RBC COMMENT NORMAL [facility] ID Date Data Source [id number] 11/29/2019 07:58:00 AM EDT [facility] Value Range Interpretation Description Data Sup porting Code Source(s) Document(s ) Basophils 0.04 [place] [#/volume] in 10*3/uL Hospital Blood by Manual count ID Date Data Source [id number] 11/29/2019 07:58:00 AM EDT [facility] Name Value Range Interpretation Description Data Sup porting Code Source(s) Document(s ) Basophils/100 1 % [place] leukocytes in Hospital Blood by Manual count ID Date Data Source [id number] 11/29/2019 07:58:00 AM EDT [facility] Name Value Range Interpretation Description Data Sup porting Code Source(s) Document(s ) Monocytes/100 15 % [place] leukocytes in Hospital Blood by Manual count ID Date Data Source [id number] 11/29/2019 07:58:00 AM EDT [facility] Name Value Range Interpretation Description Data Sup porting Code Source(s) Document(s ) Lymphocytes/100 36 % [place] leukocytes in Hospital Blood by Manual count ID Date Data Source [id number] 11/29/2019 07:58:[address] [facility] Name Value Range Interpretation Description Data Sup porting Code Source(s) Document(s ) Neutrophils/100 37 % [place] leukocytes in Hospital Blood by Manual count ID Date Data Source [id number] 11/29/2019 07:58:[address] [facility] NOTIFICATION AND READ BACK OF CRITICAL R ESULTS TO AARON NOEL RN 5F AT 0853 ON 11/29/19 BY Jessica Quinteros.REPORTED CR ITICAL VALUES SHOULD BE INTERPRETED WITHIN CLINICAL CONTEXT. Name Value Range Interpretation Description Data Sup porting Code Source(s) Document(s ) Ammonia 87 mmol/L [place] [Moles/volum Hospital e] in Plasma ID Date Data Source [id number] [facility] Value Range Interpretation Description Data Sup porting Code Source(s) Document(s ) Aspartate 36 U/L [facility] aminotransferase [facility] [Enzymatic Hospital activity/volume] in Serum or Plasma ID Date Data Source [id number] 11/29/2019 07:58:[address] [facility] Name Value Range Interpretation Description Data Sup porting Code Source(s) Document(s ) Alanine 29 U/L [place] aminotransferase [facility] [Enzymatic Hospital activity/volume] in Serum or Plasma ID Date Data Source [id number] 11/29/2019 07:58:[address] [facility] Name Value Range Interpretation Description Data Sup porting Code Source(s) Document(s ) Alkaline 67 U/L [place] phosphatase Hospital [Enzymatic activity/volume ] in Serum or Plasma ID Date Data Source [id number] 11/29/2019 07:58:[address] [facility] Name Value Range Interpretation Description Data Sup porting Code Source(s) Document(s ) Bilirubin.t 0.8 mg/dL [facility] [Mass/volum e] in Serum or Plasma ID Date Data Source [id number] 11/29/2019 07:58:00 AM EDT [facility] Name Value Range Interpretation Code Description Data Bryanna rce(s) Supporting Document(s ) Albumin/Glob 1.1 [place] ulin [Mass Hospital Ratio] in Serum or Plasma ID Date Data Source [id number] 11/29/2019 07:58:00 AM EDT [facility] Name Value Range Interpretation Description Data Sup porting Code Source(s) Document(s ) Albumin 3.3 g/dL [place] [Mass/volume Hospital ] in Serum or Plasma ID Date Data Source [id number] 11/29/2019 07:58:[address] [facility] Name Value Range Interpretation Description Data Sup porting Code Source(s) Document(s ) Protein 6.2 g/dL [place] [Mass/volume Hospital ] in Serum or Plasma ID Date Data Source [id number] 11/29/2019 07:58:00 AM [facility] Value Range Interpretation Description Data Sup porting Code Source(s) Document(s ) Calcium 9.3 mg/dL [place] [Mass/volume Hospital ] in Serum or Plasma ID Date Data Source [id number] 11/29/2019 07:58:[address] [facility] UNITS ARE IN ml/min/1.73m2.IF PATIENT IS -[place], MULTIPLY REPORTED RESULT BY 1.21. Name Value Range Interpretation Description Data Sup porting Code Source(s) Document(s ) Glomerular > 60 [place] filtration mL/min Hospital rate/1.73 sq M.predicted [Volume Rate/Area] in Serum or Plasma by Creatinine-bas ed formula (MDRD) ID Date Data Source [id number] 11/[facility] Code Description Data Bryanna rce(s) Supporting Document(s ) Urea 18.8 [place] nitrogen/Cre Hospital atinine [Mass Ratio] in Serum or Plasma ID Date Data Source [id number] 11/29/2019 07:58:00 AM EDT [facility] Name Value Range Interpretation Description Data Sup porting Code Source(s) Document(s ) Creatinine 0.8 mg/dL [place] [Mass/volume] Hospital in Serum or Plasma ID Date Data Source [id number] 11/29/2019 07:58:00 AM EDT [facility] Name Value Range Interpretation Description Data Sup porting Code Source(s) Document(s ) Urea 15 mg/dL [place] nitrogen Hospital [Mass/volume ] in Serum or Plasma ID Date Data Source [id number] 11/29/2019 07:58:00 AM EDT [facility] Value Range Interpretation Code Description Data Bryanna rce(s) Supporting Document(s ) Anion gap in 9 [place] Serum or [facility] Plasma ID Date Data Source [id number] 11/29/2019 07:58:00 AM EDT [facility] Value Range Interpretation Description Data Sup porting Code Source(s) Document(s ) Carbon 31 mmol/L [place] dioxide, Hospital total [Moles/volu me] in Serum or Plasma ID Date Data Source [id number] 11/29/2019 07:58:00 AM EDT [facility] Value Range Interpretation Description Data Sup porting Code Source(s) Document(s ) Chloride 106 [place] [Moles/volum mmol/L Hospital e] in Serum or Plasma ID Date Data Source [id number] 11/29/2019 07:58:00 AM EDT [facility] Value Range Interpretation Description Data Sup porting Code Source(s) Document(s ) Potassium 5.2 [place] [Moles/volume mmol/L Hospital ] in Serum or Plasma ID Date Data Source [id number] 11/29/2019 07:58:00 AM EDT [facility] Name Value Range Interpretation Description Data Sup porting Code Source(s) Document(s ) Sodium 141 mmol/L [place] [Moles/volu Hospital nv] in Serum or Plasma ID Date Data Source [id number] 11/29/2019 07:58:00 AM EDT [facility] Name Value Range Interpretation Description Data Sup porting Code Source(s) Document(s ) Glucose 320 mg/dL [place] [Mass/volume Hospital ] in Serum or Plasma ID Date Data Source [id number] 11/29/2019 07:58:00 AM EDT [facility] Value Range Interpretation Description Data Sup porting Code Source(s) Document(s ) Manual MANUAL [place] differential Hospital performed [Presence] in Blood ID Date Data Source [id number] 11/29/2019 07:58:00 AM EDT [facility] Value Range Interpretation Description Data Sup porting Code Source(s) Document(s ) Platelet mean 12.7 fL [place] volume Hospital [Entitic volume] in Blood by Automated count ID Date Data Source [id number] 11/29/2019 07:58:00 AM EDT [facility] Value Range Interpretation Description Data Sup porting Code Source(s) Document(s ) Platelets 140 [place] [#/volume] in 10*3/uL Hospital Blood by Automated count ID Date Data Source [id number] 11/29/2019 07:58:00 AM EDT [facility] Value Range Interpretation Description Data Sup porting Code Source(s) Document(s ) Erythrocyte 13.5 % [place] distribution Hospital width [Ratio] by Automated count ID Date Data Source [id number] 11/29/2019 07:58:[address] [facility] Name Value Range Interpretation Description Data Sup porting Code Source(s) Document(s ) Erythrocyte mean 34.3 [place] corpuscular g/dL [facility] hemoglobin concentration [Mass/volume] by Automated count ID Date Data Source [id number] 11/29/2019 07:58:[address] [facility] Name Value Range Interpretation Description Data Sup porting Code Source(s) Document(s ) Erythrocyte 30.3 pg [facility] corpuscular hemoglobin [Entitic mass] by Automated count ID Date Data Source [id number] 11/29/2019 07:58:[address] [facility] THIS TEST RESULT HAS BEEN CONFIRMED BY R EPEAT ANALYSIS. Name Value Range Interpretation Description Data Sup porting Code Source(s) Document(s ) Erythrocyte 88.3 fL [facility] corpuscular volume [Entitic volume] by Automated count ID Date Data Source [id number] 11/29/2019 07:58:[address] [facility] Name Value Range Interpretation Description Data Sup porting Code Source(s) Document(s ) Hematocrit 34.7 % [place] [Volume Hospital Fraction] of Blood by Automated count ID Date Data Source [id number] 11/29/2019 07:58:[address] [facility] Name Value Range Interpretation Description Data Sup porting Code Source(s) Document(s ) Hemoglobin 11.9 g/dL [place] [Mass/volume] Hospital in Blood ID Date Data Source [id number] 11/29/2019 07:58:[address] [facility] Name Value Range Interpretation Description Data Sup porting Code Source(s) Document(s ) Erythrocytes 3.93 [place] [#/volume] in 10*6/uL Hospital Blood by Automated count ID Date Data Source [id number] 11/29/2019 07:58:00 AM EDT [facility] Name Value Range Interpretation Description Data Sup porting Code Source(s) Document(s ) Leukocytes 3.6 [place] [#/volume] in 10*3/uL Hospital Blood by Automated count ID Date Data Source [id number] 11/29/2019 07:58:00 AM EDT [facility] Name Value Range Interpretation Description Data Sup porting Code Source(s) Document(s ) Manual MANUAL [place] differential Hospital performed [Presence] in Blood ID Date Data Source [id number] 11/29/2019 07:58:00 AM EDT [facility] Value Range Interpretation Code Description Data Bryanna rce(s) Supporting Document(s ) Cells 100 [place] Counted Hospital Total [#] in Blood ID Date Data Source [id number] 11/29/2019 07:58:00 AM EDT [facility] Value Range Interpretation Code Description Data Supporting Source(s) Document(s ) PLATELET NORMAL [place] COMMENT Hospital ID Date Data Source [id number] 11/29/2019 07:58:00 AM EDT [facility] Value Range Interpretation Code Description Data Bryanna rce(s) Supporting Document(s ) RBC COMMENT NORMAL [place] [facility] ID Date Data Source [id number] 11/29/2019 07:58:00 AM EDT [facility] Name Value Range Interpretation Description Data Sup porting Code Source(s) Document(s ) Basophils 0.04 [place] [#/volume] in 10*3/uL Hospital Blood by Manual count ID Date Data Source [id number] 11/29/2019 07:58:00 AM EDT [facility] Name Value Range Interpretation Description Data Sup porting Code Source(s) Document(s ) Eosinophils 0.40 [place] [#/volume] in 10*3/uL Hospital Blood by Manual count ID Date Data Source [id number] 11/29/2019 07:58:00 AM EDT [facility] Name Value Range Interpretation Description Data Sup porting Code Source(s) Document(s ) Monocytes 0.54 [place] [#/volume] in 10*3/uL Hospital Blood by Manual count ID Date Data Source [id number] 11/29/2019 07:58:00 AM EDT [facility] Name Value Range Interpretation Description Data Sup porting Code Source(s) Document(s ) Lymphocytes 1.30 [place] [#/volume] in 10*3/uL Hospital Blood by Manual count ID Date Data Source [id number] 11/29/2019 07:58:00 AM EDT [facility] Name Value Range Interpretation Description Data Sup porting Code Source(s) Document(s ) Neutrophils 1.33 [place] [#/volume] in 10*3/uL Hospital Blood by Manual count ID Date Data Source [id number] 11/29/2019 07:58:00 AM EDT [facility] Name Value Range Interpretation Description Data Sup porting Code Source(s) Document(s ) Basophils/100 1 % [place] leukocytes in Hospital Blood by Manual count ID Date Data Source [id number] 11/29/2019 07:58:00 AM EDT [facility] Name Value Range Interpretation Description Data Sup porting Code Source(s) Document(s ) Eosinophils/100 11 % [place] leukocytes in Hospital Blood by Manual count ID Date Data Source [id number] 11/28/2019 08:18:00 AM EDT [facility] NEUT VACUOLES PRESENT Name Value Range Interpretation Code Description Data Supporting Source(s) Document(s ) WBC COMMENT PRESENT [facility] ID Date Data Source [id number] 11/28/2019 08:18:00 AM EDT [facility] Name Value Range Interpretation Code Description Data Bryanna rce(s) Supporting Document(s ) Cells 100 [facility] Total [#] in Blood ID Date Data Source [id number] 11/28/2019 08:18:00 AM EDT [facility] Name Value Range Interpretation Description Data Sup porting Code Source(s) Document(s ) Platelet NORMAL [facility] Hospital Comment ID Date Data Source [id number] 11/28/2019 08:18:00 AM EDT [facility] NEUT VACUOLES PRESENT Name Value Range Interpretation Code Description Data Supporting Source(s) Document(s ) WBC COMMENT PRESENT [facility] ID Date Data Source [id number] 11/28/2019 08:18:00 AM EDT [facility] Name Value Range Interpretation Code Description Data Bryanna rce(s) Supporting Document(s ) TARGET CELLS [facility] ID Date Data Source [id number] 11/28/2019 08:18:00 AM EDT [facility] Name Value Range Interpretation Description Data Sup porting Code Source(s) Document(s ) POIKILOCYTOSIS [facility] ID Date Data Source [id number] 11/28[facility]2019 [facility] Value Range Interpretation Description Data Sup porting Code Source(s) Document(s ) Eosinophils 0.27 [place] [#/volume] in 10*3/uL Hospital Blood by Manual count ID Date Data Source [id number] 11/28/2019 [facility] Name Value Range Interpretation Description Data Sup porting Code Source(s) Document(s ) Monocytes 0.30 [place] [#/volume] in 10*3/uL Hospital Blood by Manual count ID Date Data Source [id number] 11/28/2019 08:18:00 AM EDT [facility] Name Value Range Interpretation Description Data Sup porting Code Source(s) Document(s ) Lymphocytes 1.71 [place] [#/volume] in 10*3/uL Hospital Blood by Manual count ID Date Data Source [id number] 11/28/2019 08:18:00 AM EDT [facility] Name Value Range Interpretation Description Data Sup porting Code Source(s) Document(s ) Neutrophils 1.52 [place] [#/volume] in 10*3/uL Hospital Blood by Manual count ID Date Data Source [id number] 11/28/2019 08:18:00 AM EDT [facility] Value Range Interpretation Description Data Sup porting Code Source(s) Document(s ) Eosinophils/100 7 % [place] leukocytes in Hospital Blood by Manual count ID Date Data Source [id number] 11/28/2019 08:18:00 AM EDT [facility] Value Range Interpretation Description Data Sup porting Code Source(s) Document(s ) Monocytes/100 8 % [place] leukocytes in Hospital Blood by Manual count ID Date Data Source [id number] 11/28/2019 08:18:00 AM EDT [facility] Value Range Interpretation Description Data Sup porting Code Source(s) Document(s ) Lymphocytes/100 45 % [place] leukocytes in Hospital Blood by Manual count ID Date Data Source [id number] 11/28/2019 08:18:00 AM EDT [facility] Value Range Interpretation Description Data Sup porting Code Source(s) Document(s ) Neutrophils/100 40 % [place] leukocytes in Hospital Blood by Manual count ID Date Data Source [id number] 11/28/2019 08:18:00 AM EDT [facility] NEUT VACUOLES PRESENT Name Value Range Interpretation Code Description Data Supporting Source(s) Document(s ) WBC COMMENT PRESENT [facility] ID Date Data Source [id number] 11/28/2019 08:18:00 AM EDT [facility] Name Value Range Interpretation Code Description Data Bryanna rce(s) Supporting Document(s ) TARGET CELLS OCC [facility] ID Date Data Source [id number] 11/28/2019 08:18:00 AM EDT [facility] Value Range Interpretation Description Data Sup porting Code Source(s) Document(s ) POIKILOCYTOSIS [facility] ID Date Data Source [id number] 11/27/2019 09:23:00 PM EDT [facility] Name Value Range Interpretation Description Data Sup porting Code Source(s) Document(s ) GLUCOSE RN Notified [facility] Hospital ID Date Data Source [id number] 11/27/2019 08:25:00 AM EDT [facility] Name Value Range Interpretation Description Data Sup porting Code Source(s) Document(s ) Bilirubin.d 0.3 mg/dL [place] [facility] [Mass/volum e] in Serum or Plasma ID Date Data Source [id number] 11/27/2019 08:25:00 AM EDT [facility] Name Value Range Interpretation Description Data Sup porting Code Source(s) Document(s ) Phosphate 4.5 mg/dL [place] [Mass/volume] Hospital in Serum or Plasma ID Date Data Source [id number] 11/27/2019 08:25:00 AM EDT [facility] Value Range Interpretation Description Data Sup porting Code Source(s) Document(s ) Magnesium 1.9 mg/dL [place] [Mass/volume] Hospital in Serum or Plasma ID Date Data Source [id number] 11/27/2019 08:25:00 AM EDT [facility] Name Value Range Interpretation Description Data Sup porting Code Source(s) Document(s ) Bilirubin.d 0.3 mg/dL [facility] [Mass/volum e] in Serum or Plasma ID Date Data Source [id number] 11/27/2019 08:25:00 AM EDT [facility] Name Value Range Interpretation Code Description Data Supporting Source(s) Document(s ) NUCLEATED RBCS 0.0 % [place] (AUTO Hospital DIFF%)DIS ID Date Data Source [id number] 11/27/2019 08:25:00 AM EDT [facility] Value Range Interpretation Description Data Sup porting Code Source(s) Document(s ) Differential AUTOMATED [place] cell count [facility] method - Blood ID Date Data Source [id number] 11/27/2019 08:25:00 AM EDT [facility] Name Value Range Interpretation Description Data Sup porting Code Source(s) Document(s ) Immature 0.01 [place] granulocytes 10*3/uL Hospital [#/volume] in Blood by Automated count ID Date Data Source [id number] 11/27/2019 08:25:00 AM EDT [facility] Name Value Range Interpretation Description Data Sup porting Code Source(s) Document(s ) Basophils 0.04 [place] [#/volume] in 10*3/uL Hospital Blood by Automated count ID Date Data Source [id number] 11/27/2019 08:25:00 AM EDT [facility] Name Value Range Interpretation Description Data Sup porting Code Source(s) Document(s ) Eosinophils 0.11 [place] [#/volume] in 10*3/uL Hospital Blood by Automated count ID Date Data Source [id number] 11/27/2019 08:25:00 AM EDT [facility] Value Range Interpretation Description Data Sup porting Code Source(s) Document(s ) Monocytes 0.51 [place] [#/volume] in 10*3/uL Hospital Blood by Automated count ID Date Data Source [id number] 11/27/2019 08:25:00 AM EDT [facility] Value Range Interpretation Description Data Sup porting Code Source(s) Document(s ) Lymphocytes 2.18 [place] [#/volume] in 10*3/uL Hospital Blood by Automated count ID Date Data Source [id number] 11/27/2019 08:25:00 AM EDT [facility] Value Range Interpretation Description Data Sup porting Code Source(s) Document(s ) Neutrophils 1.65 [place] [#/volume] in 10*3/uL Hospital Blood by Automated count ID Date Data Source [id number] 11/27/2019 08:25:00 AM EDT [facility] Value Range Interpretation Description Data Sup porting Code Source(s) Document(s ) Nucleated 0.0 % [place] erythrocytes/10 Hospital 0 leukocytes [Ratio] in Blood by Automated count ID Date Data Source [id number] 11/27/2019 08:25:00 AM EDT [facility] Value Range Interpretation Description Data Sup porting Code Source(s) Document(s ) Immature 0.2 % [place] granulocytes/10 Hospital 0 leukocytes in Blood by Automated count ID Date Data Source [id number] 11/27/2019 08:25:00 AM EDT [facility] Value Range Interpretation Description Data Sup porting Code Source(s) Document(s ) Basophils/100 0.9 % [place] leukocytes in Hospital Blood by Automated count ID Date Data Source [id number] 11/27/2019 08:25:00 AM EDT [facility] Name Value Range Interpretation Description Data Sup porting Code Source(s) Document(s ) Eosinophils/100 2.4 % [place] leukocytes in Hospital Blood by Automated count ID Date Data Source [id number] 11/27/2019 08:25:00 AM EDT [facility] Name Value Range Interpretation Description Data Sup porting Code Source(s) Document(s ) Monocytes/100 11.3 % [place] leukocytes in Hospital Blood by Automated count ID Date Data Source [id number] 11/27/2019 08:25:00 AM EDT [facility] Name Value Range Interpretation Description Data Sup porting Code Source(s) Document(s ) Lymphocytes/10 48.4 % [place] 0 leukocytes Hospital in Blood by Automated count ID Date Data Source [id number] 11/27/2019 08:25:00 AM EDT [facility] Name Value Range Interpretation Description Data Sup porting Code Source(s) Document(s ) Neutrophils/10 36.8 % [place] 0 leukocytes Hospital in Blood by Automated count ID Date Data Source [id number] 11/27/2019 08:25:00 AM EDT [facility] Name Value Range Interpretation Description Data Sup porting Code Source(s) Document(s ) Phosphate 4.5 mg/dL [place] [Mass/volume] Hospital in Serum or Plasma ID Date Data Source [id number] 11/27/2019 08:25:00 AM EDT [facility] Name Value Range Interpretation Description Data Sup porting Code Source(s) Document(s ) Magnesium 1.9 mg/dL [place] [Mass/volume] Hospital in Serum or Plasma ID Date Data Source [id number] 11/27/2019 08:25:[address] [facility] Name Value Range Interpretation Description Data Sup porting Code Source(s) Document(s ) Bilirubin.d 0.3 mg/dL [facility] [Mass/volum e] in Serum or Plasma ID Date Data Source [id number] 11/26/2019 12:00:[address] [facility] REFERENCE RANGES: NONE DETECTED <20 MG/DL NONE TO MILD EUPHORIA 20-49 MG/DL MILD EUPHORIA 50-99 MG/DL MODERATE EUPHORIA 100-149 MG/DL INTOXICATION 150-300 MG/DL Name Value Range Interpretation Description Data Sup porting Code Source(s) Document(s ) Ethanol < 20 [place] [Mass/volume mg/dL Hospital ] in Serum or Plasma ID Date Data Source [id number] 11/21/2019 02:23:[address] [facility] NOTIFICATION AND READ BACK OF CRITICAL R ESULTS TO Jesse Mckeon RN 3F AT 0255 ON 11/21/19 BY Ronn Salinas.REPORTED CRITICAL VALUES SHOULD BE INTERPRETED WITHIN CLINICAL CONTEXT. Name Value Range Interpretation Description Data Sup porting Code Source(s) Document(s ) Lactate 2.9 [place] [Moles/volum mmol/L Hospital e] in Serum or Plasma ID Date Data Source [id number] 11/21/2019 02:23:[address] [facility] NOTIFICATION AND READ BACK OF CRITICAL R ESULTS TO Jesse Mckeon RN 3F AT 0255 ON 11/21/19 BY Ronn Salinas.REPORTED CRITICAL VALUES SHOULD BE INTERPRETED WITHIN CLINICAL CONTEXT. Name Value Range Interpretation Description Data Sup porting Code Source(s) Document(s ) Lactate 2.9 [place] [Moles/volum mmol/L Hospital e] in Serum or Plasma ID Date Data Source [id number] 11/21/2019 02:23:[address] [facility] NOTIFICATION AND READ BACK OF CRITICAL R ESULTS TO Jesse Mckeon RN 3F AT 0255 ON 11/21/19 BY Ronn Salinas.REPORTED CRITICAL VALUES SHOULD BE INTERPRETED WITHIN CLINICAL CONTEXT. Name Value Range Interpretation Description Data Sup porting Code Source(s) Document(s ) Lactate 2.9 [place] [Moles/volum mmol/L Hospital e] in Serum or Plasma ID Date Data Source [id number] [facility] RECOMMENDATIONS: NON-DIABETES: 4.0-6.0% CONTROLLED DIABETES: 6.0-8.0% UNCONTROLLED DIABETE S: UP TO 20%RECOMMENDED ADA RESULT FOR THERAPY: HEMOGLOBIN A1C RESULT LESS GM N 7%.NOTE: METHOD CHANGE EFFECTIVE 11/11/14. Name Value Range Interpretation Description Data Sup porting Code Source(s) Document(s ) Hemoglobin 11.2 % [place] A1c/Hemoglobin [facility] .total in Blood ID Date Data Source [id number] 11/20/2019 09[facility]54[facility] ADA RECOMMENDATIONS: NON-DIABETES: 4.0-6.0% CONTROLLED DIABETES: 6.0-8.0% UNCONTROLLED DIABETE S: UP TO 20%RECOMMENDED ADA RESULT FOR THERAPY: HEMOGLOBIN A1C RESULT LESS GM N 7%.NOTE: METHOD CHANGE EFFECTIVE 11/11/14. Name Value Range Interpretation Description Data Sup porting Code Source(s) Document(s ) Hemoglobin 11.2 % [place] A1c/Hemoglobin [facility] .total in Blood ID Date Data Source [id number] 11/20/2019 09:54:[address] [facility] TEST PERFORMED BY [facility] [facility] SENS[facility] CHEMILUMINESCENCE METHOD. Name Value Range Interpretation Description Data Sup porting Code Source(s) Document(s ) Troponin 0.02 [place] I.cardiac ng/mL Hospital [Mass/volume ] in Serum or Plasma ID Date Data Source [id number] 11/20/2019 09[facility]54[facility] THERAPEUTIC RANGES:UNFRACTIONATED HEPARI N THERAPY: 60-90 SECONDSARGATROBAN THERAPY: 49-99 SECONDS Name Value Range Interpretation Description Data Sup porting Code Source(s) Document(s ) aPTT in 29.6 s [place] Platelet poor Hospital plasma by Coagulation assay ID Date Data Source [id number] 11/20/2019 09:54:[facility] THERAPEUTIC RANGE FOR STANDARD ORALANTIC OAGULANT THERAPY: 2.0-3.0THERAPEUTIC RANGE FOR HIGH DOSE ORALANTICOAGULANT THERAPY (MECHANICAL HEARTVALVE REPLACEMENT): 2.5-3.5 Name Value Range Interpretation Description Data Sup porting Code Source(s) Document(s ) INR in Platelet 0.9 [place] poor plasma by Hospital Coagulation assay ID Date Data Source [id number] 11/20/2019 09:54:[facility] Name Value Range Interpretation Description Data Sup porting Code Source(s) Document(s ) PT panel - 11.1 s [place] Platelet poor [facility] plasma by Coagulation assay ID Date Data Source [id number] 11/20/2019 09:54:[address] [facility] ADA RECOMMENDATIONS: NON-DIABETES: 4.0-6.0% CONTROLLED DIABETES: 6.0-8.0% UNCONTROLLED DIABETE S: UP TO 20%RECOMMENDED ADA RESULT FOR THERAPY: HEMOGLOBIN A1C RESULT LESS GM N 7%.NOTE: METHOD CHANGE EFFECTIVE 11/11/14. Name Value Range Interpretation Description Data Sup porting Code Source(s) Document(s ) Hemoglobin 11.2 % [place] A1c/Hemoglobin Hospital .total in Blood ID Date Data Source [id number] 11/20/2019 08:15:[address] [facility] Name Value Range Interpretation Code Description Data Bryanna rce(s) Supporting Document(s ) READ BACK Yes/ [facility] ID Date Data Source [id number] 11/20/2019 08:15:00 PM EDT [facility] Name Value Range Interpretation Code Description Data Bryanna rce(s) Supporting Document(s ) NOTE WHO DR BARRETT [facility] ID Date Data Source [id number] 11/20/2019 08:15:00 PM EDT [facility] Name Value Range Interpretation Description Data Sup porting Code Source(s) Document(s ) IONIZED 1.10 [place] CALCIUM mmol/L Hospital ID Date Data Source [id number] 11/20/2019 08:15:00 PM EDT [facility] QUES Name Value Range Interpretation Code Description Data Supporting Source(s) Document(s ) METHEMOGLOBIN % [facility] ID Date Data Source [id number] 11/20/2019 08:15:00 PM EDT [facility] QUES Name Value Range Interpretation Description Data Sup porting Code Source(s) Document(s ) CARBOXYHEMOGLOBIN % [facility] ID Date Data Source [id number] 11/20/2019 08:15:00 PM EDT [facility] Value Range Interpretation Code Description Data Bryanna rce(s) Supporting Document(s ) ABG TEMP 98.0 [facility] ID Date Data Source [id number] 11/20/2019 08:15:00 PM EDT [facility] Name Value Range Interpretation Code Description Data Bryanna rce(s) Supporting Document(s ) FIO2 21 % [facility] ID Date Data Source [id number] 11/20/2019 08:15:00 PM EDT [facility] Value Range Interpretation Code Description Data Bryanna rce(s) Supporting Document(s ) ABG BE -8.3 mmol/L [facility] ID Date Data Source [id number] 11/20/2019 08:15:00 PM EDT [facility] Name Value Range Interpretation Code Description Data Bryanna rce(s) Supporting Document(s ) ABG HCO3 18 mmol/L [facility] ID Date Data Source [id number] 11/20/2019 08:15:00 PM EDT [facility] Value Range Interpretation Code Description Data Bryanna rce(s) Supporting Document(s ) ABG PO2 18 mm[Hg] [facility] ID Date Data Source [id number] 11/20/2019 08:15:00 PM EDT [facility] Value Range Interpretation Code Description Data Bryanna rce(s) Supporting Document(s ) ABG PCO2 41 mm[Hg] [facility] ID Date Data Source [id number] 11/20/2019 08:15:00 PM EDT [facility] Value Range Interpretation Code Description Data Bryanna rce(s) Supporting Document(s ) ABG PH 7.27 [facility] ID Date Data Source [id number] 11/20/2019 08:15:00 PM EDT [facility] Value Range Interpretation Code Description Data Bryanna rce(s) Supporting Document(s ) JORGE TEST POSITIVE [facility] ID Date Data Source [id number] 11/20/2019 08:15:00 PM EDT [facility] Value Range Interpretation Code Description Data Bryanna rce(s) Supporting Document(s ) READ BACK Yes/ [facility] ID Date Data Source [id number] 11/20/2019 08:15:00 PM EDT [facility] Value Range Interpretation Code Description Data Bryanna rce(s) Supporting Document(s ) NOTE WHO DR BARRETT [facility] ID Date Data Source [id number] 11/20/2019 08:15:00 PM EDT [facility] Value Range Interpretation Description Data Sup porting Code Source(s) Document(s ) IONIZED 1.10 [place] CALCIUM mmol/L Hospital ID Date Data Source [id number] 11/20/2019 08:15:00 PM EDT [facility] QUES Name Value Range Interpretation Code Description Data Supporting Source(s) Document(s ) METHEMOGLOBIN % [facility] ID Date Data Source [id number] 11/20/2019 08:15:00 PM EDT [facility] QUES Name Value Range Interpretation Description Data Sup porting Code Source(s) Document(s ) CARBOXYHEMOGLOBIN % [facility] ID Date Data Source [id number] 11/20/2019 08:15:00 PM EDT [facility] Name Value Range Interpretation Code Description Data Bryanna rce(s) Supporting Document(s ) ABG TEMP 98.0 [facility] ID Date Data Source [id number] 11/20/2019 08:15:00 PM EDT [facility] Name Value Range Interpretation Code Description Data Bryanna rce(s) Supporting Document(s ) FIO2 21 % [facility] ID Date Data Source [id number] 11/20/2019 08:15:00 PM EDT [facility] Name Value Range Interpretation Code Description Data Bryanna rce(s) Supporting Document(s ) ABG BE -8.3 mmol/L [facility] ID Date Data Source [id number] 11/20/2019 08:15:00 PM EDT [facility] Name Value Range Interpretation Code Description Data Bryanna rce(s) Supporting Document(s ) ABG HCO3 18 mmol/L [facility] ID Date Data Source [id number] 11/20/2019 08:15:00 PM EDT [facility] Name Value Range Interpretation Code Description Data Bryanna rce(s) Supporting Document(s ) ABG PO2 18 mm[Hg] [facility] ID Date Data Source [id number] 11/20/2019 08:15:00 PM EDT [facility] Name Value Range Interpretation Code Description Data Bryanna rce(s) Supporting Document(s ) ABG PCO2 41 mm[Hg] [facility] ID Date Data Source [id number] 11/20/2019 08:15:00 PM EDT [facility] Value Range Interpretation Code Description Data Bryanna rce(s) Supporting Document(s ) ABG PH 7.27 [facility] ID Date Data Source [id number] 11/20/2019 08:15:00 PM EDT [facility] Value Range Interpretation Code Description Data Bryanna rce(s) Supporting Document(s ) JORGE TEST POSITIVE [facility] ID Date Data Source [id number] 11/20/2019 09:39:00 AM EDT [facility] Value Range Interpretation Description Data Sup porting Code Source(s) Document(s ) Leukocyte NEGATIVE [place] esterase [facility] [Presence] in Urine by Test strip ID Date Data Source [id number] 11/20/2019 09:39:00 AM EDT [facility] Value Range Interpretation Description Data Sup porting Code Source(s) Document(s ) URINE NEGATIVE [facility] Hospital ID Date Data Source [id number] 11/20/2019 09:39:00 AM EDT [facility] Value Range Interpretation Description Data Sup porting Code Source(s) Document(s ) Erythrocytes NEGATIVE [place] [#/volume] in Hospital Urine by Test strip ID Date Data Source [id number] 11/20/2019 09:39:00 AM EDT [facility] Name Value Range Interpretation Code Description Data Bryanna rce(s) Supporting Document(s ) Bilirubin. NEGATIVE [place] total Hospital [Presence] in Urine by Test strip ID Date Data Source [id number] 11/20/2019 09:39:00 AM EDT [facility] Name Value Range Interpretation Description Data Sup porting Code Source(s) Document(s ) Urobilinogen 1.0 [place] [Units/volume] mg/dL Hospital in Urine by Test strip ID Date Data Source [id number] 11/20/2019 09:39:00 AM EDT [facility] Name Value Range Interpretation Description Data Sup porting Code Source(s) Document(s ) Ketones NEGATIVE [place] [Mass/volume Hospital ] in Urine by Test strip ID Date Data Source [id number] 11/20/2019 09:39:00 AM EDT [facility] Value Range Interpretation Code Description Data Bryanna rce(s) Supporting Document(s ) Glucose 3+ [place] [Mass/volume Hospital ] in Urine by Test strip ID Date Data Source [id number] 11/20/2019 09:39:00 AM EDT [facility] Name Value Range Interpretation Description Data Sup porting Code Source(s) Document(s ) Protein NEGATIVE [place] [Presence] Hospital in Urine by Test strip ID Date Data Source [id number] 11/20/2019 09:39:00 AM EDT [facility] Name Value Range Interpretation Code Description Data Bryanna rce(s) Supporting Document(s ) pH of Urine 6.0 [place] by Test Hospital strip ID Date Data Source [id number] 11/20/2019 09:39:00 AM EDT [facility] Value Range Interpretation Code Description Data Supporting Source(s) Document(s ) Specific 1.029 [place] gravity of Hospital Urine by Test strip ID Date Data Source [id number] 11/20/2019 09:39:[address] [facility] Name Value Range Interpretation Description Data Sup porting Code Source(s) Document(s ) Clarity in Urine CLEAR [place] by [facility]ract[facility] automated ID Date Data Source [id number] 11/20/2019 09:39:[address] [facility] Name Value Range Interpretation Code Description Data Bryanna rce(s) Supporting Document(s ) Color of YELLOW [place] Urine Hospital ID Date Data Source [id number] 10/26/2019 05:07:[address] [facility] Name Value Range Interpretation Description Data Sup porting Code Source(s) Document(s ) Arthropoda NAIEX [facility] (BED BUG) Hospital ID Date Data Source [id number] 10/26/2019 03:50:[address] [facility] TEST PERFORMED BY [facility] [facility] SENS[facility] CHEMILUMINESCENCE METHOD. Name Value Range Interpretation Description Data Sup porting Code Source(s) Document(s ) Troponin < 0.01 [place] I.cardiac ng/mL Hospital [Mass/volume ] in Serum or Plasma ID Date Data Source [id number] 10/26/2019 03:50:[address] [facility] NOTIFICATION AND READ BACK OF CRITICAL R ESULTS TO OF AT 0441 ON 10/26/19 BY Jeri Iraheta.REPORTED CRITICAL VALUES SHOULD BE INTERPRETED WITHIN CLINICAL CONTEXT. Name Value Range Interpretation Description Data Sup porting Code Source(s) Document(s ) Ammonia 56 mmol/L [place] [Moles/volum Hospital e] in Plasma ID Date Data Source [id number] 10/26/2019 03:50:[address] [facility] Name Value Range Interpretation Description Data Sup porting Code Source(s) Document(s ) Aspartate 136 U/L [facility] aminotransferase [facility] [Enzymatic Hospital activity/volume] in Serum or Plasma ID Date Data Source [id number] 10/26/2019 03:50:00 AM EDT [facility] Name Value Range Interpretation Description Data Sup porting Code Source(s) Document(s ) Alanine 48 U/L [facility] aminotransferase [facility] [Enzymatic Hospital activity/volume] in Serum or Plasma ID Date Data Source [id number] 10/26/2019 03:50:00 AM EDT [facility] Name Value Range Interpretation Description Data Sup porting Code Source(s) Document(s ) Alkaline 71 U/L [facility] [Enzymatic activity/volume ] in Serum or Plasma ID Date Data Source [id number] 10/26/2019 03:50:00 AM EDT [facility] Name Value Range Interpretation Description Data Sup porting Code Source(s) Document(s ) Bilirubin.t 1.0 mg/dL [facility] [Mass/volum e] in Serum or Plasma ID Date Data Source [id number] 10/[facility] Code Description Data Bryanna rce(s) Supporting Document(s ) Albumin/Glob 1.5 [facility] [Mass Hospital Ratio] in Serum or Plasma ID Date Data Source [id number] 10/26/2019 03:50:00 AM EDT [facility] Name Value Range Interpretation Description Data Sup porting Code Source(s) Document(s ) Albumin 4.5 g/dL [place] [Mass/volume Hospital ] in Serum or Plasma ID Date Data Source [id number] 10/26/2019 03:50:00 AM EDT [facility] Name Value Range Interpretation Description Data Sup porting Code Source(s) Document(s ) Protein 7.6 g/dL [place] [Mass/volume Hospital ] in Serum or Plasma ID Date Data Source [id number] 10/26/2019 03:50:00 AM EDT [facility] Name Value Range Interpretation Description Data Sup porting Code Source(s) Document(s ) Calcium 8.8 mg/dL [place] [Mass/volume Hospital ] in Serum or Plasma ID Date Data Source [id number] 10/26/2019 03:50:00 AM EDT [facility] Name Value Range Interpretation Code Description Data Bryanna rce(s) Supporting Document(s ) Urea 11.1 [place] nitrogen/Cre Hospital atinine [Mass Ratio] in Serum or Plasma ID Date Data Source [id number] 10/26/2019 03:50:00 AM EDT [facility] Name Value Range Interpretation Description Data Sup porting Code Source(s) Document(s ) Creatinine 0.9 mg/dL [place] [Mass/volume] Hospital in Serum or Plasma ID Date Data Source [id number] 10/26/2019 03:50:00 AM EDT [facility] Name Value Range Interpretation Description Data Sup porting Code Source(s) Document(s ) Urea 10 mg/dL [place] nitrogen Hospital [Mass/volume ] in Serum or Plasma ID Date Data Source [id number] 10/26/2019 03:50:00 AM EDT [facility] Name Value Range Interpretation Description Data Sup porting Code Source(s) Document(s ) Carbon 26 mmol/L [place] dioxide, Hospital total [Moles/volu me] in Serum or Plasma ID Date Data Source [id number] 10/26/2019 03:50:00 AM EDT [facility] Name Value Range Interpretation Description Data Sup porting Code Source(s) Document(s ) Chloride 99 mmol/L [place] [Moles/volum Hospital e] in Serum or Plasma ID Date Data Source [id number] 10/26/2019 03:50:00 AM EDT [facility] GROSSLY HEMOLYSED Name Value Range Interpretation Description Data Sup porting Code Source(s) Document(s ) Potassium mmol/L [place] [Moles/volume] Hospital in Serum or Plasma ID Date Data Source [id number] 10/26/2019 03:50:00 AM EDT [facility] Name Value Range Interpretation Description Data Sup porting Code Source(s) Document(s ) Sodium 132 mmol/L [place] [Moles/volu Hospital me] in Serum or Plasma ID Date Data Source [id number] 10/26/2019 03:50:00 AM EDT [facility] Name Value Range Interpretation Description Data Sup porting Code Source(s) Document(s ) Glucose 247 mg/dL [place] [Mass/volume Hospital ] in Serum or Plasma ID Date Data Source [id number] 10/26/2019 03:50:00 AM EDT [facility] Name Value Range Interpretation Code Description Data Supporting Source(s) Document(s ) NUCLEATED RBCS 0.0 % [place] (AUTO Hospital DIFF%)DIS ID Date Data Source [id number] 10/26/2019 03:50:00 AM EDT [facility] Name Value Range Interpretation Description Data Sup porting Code Source(s) Document(s ) Differential AUTOMATED [place] cell count Hospital method - Blood ID Date Data Source [id number] 10/26/2019 03:50:00 AM EDT [facility] Name Value Range Interpretation Description Data Sup porting Code Source(s) Document(s ) Immature 0.01 [place] granulocytes 10*3/uL Hospital [#/volume] in Blood by Automated count ID Date Data Source [id number] 10/26/2019 03:50:00 AM EDT [facility] Name Value Range Interpretation Description Data Sup porting Code Source(s) Document(s ) Basophils 0.04 [place] [#/volume] in 10*3/uL Hospital Blood by Automated count ID Date Data Source [id number] 10/26/2019 03:50:00 AM EDT [facility] Name Value Range Interpretation Description Data Sup porting Code Source(s) Document(s ) Eosinophils 0.28 [place] [#/volume] in 10*3/uL Hospital Blood by Automated count ID Date Data Source [id number] 10/26/2019 03:50:00 AM EDT [facility] Value Range Interpretation Description Data Sup porting Code Source(s) Document(s ) Monocytes 0.50 [place] [#/volume] in 10*3/uL Hospital Blood by Automated count ID Date Data Source [id number] 10/26/2019 03:50:00 AM EDT [facility] Value Range Interpretation Description Data Sup porting Code Source(s) Document(s ) Lymphocytes 2.29 [place] [#/volume] in 10*3/uL Hospital Blood by Automated count ID Date Data Source [id number] 10/26/2019 03:50:00 AM EDT [facility] Value Range Interpretation Description Data Sup porting Code Source(s) Document(s ) Neutrophils 1.54 [place] [#/volume] in 10*3/uL Hospital Blood by Automated count ID Date Data Source [id number] 10/26/2019 03:50:00 AM EDT [facility] Value Range Interpretation Description Data Sup porting Code Source(s) Document(s ) Nucleated 0.0 % [place] erythrocytes/10 Hospital 0 leukocytes [Ratio] in Blood by Automated count ID Date Data Source [id number] 10/26/2019 03:50:00 AM EDT [facility] Name Value Range Interpretation Description Data Sup porting Code Source(s) Document(s ) Immature 0.2 % [place] granulocytes/10 Hospital 0 leukocytes in Blood by Automated count ID Date Data Source [id number] 10/26/2019 03:50:00 AM EDT [facility] Name Value Range Interpretation Description Data Sup porting Code Source(s) Document(s ) Basophils/100 0.9 % [place] leukocytes in Hospital Blood by Automated count ID Date Data Source [id number] 10/26/2019 03:50:00 AM EDT [facility] Value Range Interpretation Description Data Sup porting Code Source(s) Document(s ) Eosinophils/100 6.0 % [place] leukocytes in Hospital Blood by Automated count ID Date Data Source [id number] 10/26/2019 03:50:00 AM EDT [facility] Value Range Interpretation Description Data Sup porting Code Source(s) Document(s ) Monocytes/100 10.7 % [place] leukocytes in Hospital Blood by Automated count ID Date Data Source [id number] 10/26/2019 03:50:00 AM EDT [facility] Name Value Range Interpretation Description Data Sup porting Code Source(s) Document(s ) Lymphocytes/10 49.1 % [place] 0 leukocytes Hospital in Blood by Automated count ID Date Data Source [id number] 10/26/2019 03:50:00 AM EDT [facility] Name Value Range Interpretation Description Data Sup porting Code Source(s) Document(s ) Neutrophils/10 33.1 % [place] 0 leukocytes Hospital in Blood by Automated count ID Date Data Source [id number] 10/26/2019 03:50:[address] [facility] PLATELET CLUMPS NOTED ON PERIPHERAL SMEA R- PLT COUNT MAY NOT BE ACCURATE Name Value Range Interpretation Description Data Sup porting Code Source(s) Document(s ) Platelets 105 [place] [#/volume] in 10*3/uL Hospital Blood by Automated count ID Date Data Source [id number] 10/26/2019 03:50:[address] [facility] Name Value Range Interpretation Description Data Sup porting Code Source(s) Document(s ) Erythrocyte 12.7 % [facility] width [Ratio] by Automated count ID Date Data Source [id number] 10/26/2019 03:50:[address] [facility] Name Value Range Interpretation Description Data Sup porting Code Source(s) Document(s ) Erythrocyte mean 34.1 [place] corpuscular g/dL Hospital hemoglobin concentration [Mass/volume] by Automated count ID Date Data Source [id number] 10/26/2019 03:50:00 AM [facility] Value Range Interpretation Description Data Sup porting Code Source(s) Document(s ) Erythrocyte 29.9 pg [facility] corpuscular hemoglobin [Entitic mass] by Automated count ID Date Data Source [id number] 10/26/2019 03:50:[address] [facility] Name Value Range Interpretation Description Data Sup porting Code Source(s) Document(s ) Erythrocyte 87.4 fL [facility] corpuscular volume [Entitic volume] by Automated count ID Date Data Source [id number] 10/26/2019 03:50:00 AM [facility] Value Range Interpretation Description Data Sup porting Code Source(s) Document(s ) Hematocrit 41.0 % [place] [Volume Hospital Fraction] of Blood by Automated count ID Date Data Source [id number] 10/26/2019 03:50:00 AM EDT [facility] Name Value Range Interpretation Description Data Sup porting Code Source(s) Document(s ) Hemoglobin 14.0 g/dL [place] [Mass/volume] Hospital in Blood ID Date Data Source [id number] [facility] Value Range Interpretation Description Data Sup porting Code Source(s) Document(s ) Erythrocytes 4.69 [place] [#/volume] in 10*6/uL Hospital Blood by Automated count ID Date Data Source [id number] 10/[facility] Name Value Range Interpretation Description Data Sup porting Code Source(s) Document(s ) Leukocytes 4.7 [place] [#/volume] in 10*3/uL Hospital Blood by Automated count ID Date Data Source [id number] 10/26/2019 02:33:[address] [facility] Informatics Analyst:DEIDRA CONDON Name Value Range Interpretation Description Data Sup porting Code Source(s) Document(s ) Glucose 230 mg/dL [place] [Mass/volume] Hospital in Capillary blood by Glucometer ID Date Data Source [id number] 06/21/2019 01:10:[address] [facility] Informatics Analyst:LISSA PINO Name Value Range Interpretation Description Data Sup porting Code Source(s) Document(s ) Glucose 366 mg/dL [place] [Mass/volume] Hospital in Capillary blood by Glucometer ID Date Data Source [id number] 06/21/2019 06:41:[address] [facility] Name Value Range Interpretation Code Description Data Bryanna rce(s) Supporting Document(s ) Urea 8.3 [place] nitrogen/Cre Hospital atinine [Mass Ratio] in Serum or Plasma ID Date Data Source [id number] 06/21/2019 06:41:00 AM EDT [facility] Name Value Range Interpretation Description Data Sup porting Code Source(s) Document(s ) Creatinine 0.6 mg/dL [place] [Mass/volume] Hospital in Serum or Plasma ID Date Data Source [id number] 06/21/2019 06:41:00 AM EDT [facility] Name Value Range Interpretation Description Data Sup porting Code Source(s) Document(s ) Urea nitrogen 5 mg/dL [place] [Mass/volume] Hospital in Serum or Plasma ID Date Data Source [id number] 06/21/2019 06:41:00 AM EDT [facility] Value Range Interpretation Code Description Data Bryanna rce(s) Supporting Document(s ) Anion gap in 7 [place] Serum or [facility] Plasma ID Date Data Source [id number] 06/21/2019 06:41:00 AM EDT [facility] Value Range Interpretation Description Data Sup porting Code Source(s) Document(s ) Carbon 30 mmol/L [place] dioxide, Hospital total [Moles/volu me] in Serum or Plasma ID Date Data Source [id number] 06/21/2019 06:41:00 AM EDT [facility] Value Range Interpretation Description Data Sup porting Code Source(s) Document(s ) Chloride 108 [place] [Moles/volum mmol/L Hospital e] in Serum or Plasma ID Date Data Source [id number] 06/21/2019 06:41:00 AM EDT [facility] Name Value Range Interpretation Description Data Sup porting Code Source(s) Document(s ) Potassium 3.6 [place] [Moles/volume mmol/L Hospital ] in Serum or Plasma ID Date Data Source [id number] 06/21/2019 06:41:00 AM EDT [facility] Name Value Range Interpretation Description Data Sup porting Code Source(s) Document(s ) Sodium 141 mmol/L [place] [Moles/volu Hospital nv] in Serum or Plasma ID Date Data Source [id number] 06/21/2019 06:41:00 AM EDT [facility] Value Range Interpretation Description Data Sup porting Code Source(s) Document(s ) Glucose 161 mg/dL [place] [Mass/volume Hospital ] in Serum or Plasma ID Date Data Source [id number] 06/21/2019 06:41:00 AM EDT [facility] Value Range Interpretation Code Description Data Supporting Source(s) Document(s ) NUCLEATED RBCS 0.0 % [place] (AUTO Hospital DIFF%)DIS ID Date Data Source [id number] 06/21/2019 06:41:00 AM EDT [facility] Value Range Interpretation Description Data Sup porting Code Source(s) Document(s ) Differential AUTOMATED [place] cell count [facility] method - Blood ID Date Data Source [id number] 06/21/2019 06:41:00 AM EDT [facility] Value Range Interpretation Description Data Sup porting Code Source(s) Document(s ) Immature 0.01 [place] granulocytes 10*3/uL Hospital [#/volume] in Blood by Automated count ID Date Data Source [id number] 06/21/2019 06:41:00 AM EDT [facility] Name Value Range Interpretation Description Data Sup porting Code Source(s) Document(s ) Basophils 0.05 [place] [#/volume] in 10*3/uL Hospital Blood by Automated count ID Date Data Source [id number] 06/21/2019 06:41:00 AM EDT [facility] Value Range Interpretation Description Data Sup porting Code Source(s) Document(s ) Eosinophils 0.29 [place] [#/volume] in 10*3/uL Hospital Blood by Automated count ID Date Data Source [id number] 06/21/2019 06:41:00 AM EDT [facility] Name Value Range Interpretation Description Data Sup porting Code Source(s) Document(s ) Monocytes 0.42 [place] [#/volume] in 10*3/uL Hospital Blood by Automated count ID Date Data Source [id number] 06/21/2019 06:41:00 AM EDT [facility] Name Value Range Interpretation Description Data Sup porting Code Source(s) Document(s ) Lymphocytes 2.71 [place] [#/volume] in 10*3/uL Hospital Blood by Automated count ID Date Data Source [id number] 06/21/2019 06:41:00 AM EDT [facility] Value Range Interpretation Description Data Sup porting Code Source(s) Document(s ) Neutrophils 0.99 [place] [#/volume] in 10*3/uL Hospital Blood by Automated count ID Date Data Source [id number] 06/21/2019 06:41:00 AM EDT [facility] Value Range Interpretation Description Data Sup porting Code Source(s) Document(s ) Nucleated 0.0 % [place] erythrocytes/10 Hospital 0 leukocytes [Ratio] in Blood by Automated count ID Date Data Source [id number] 06/21/2019 06:41:00 AM EDT [facility] Value Range Interpretation Description Data Sup porting Code Source(s) Document(s ) Immature 0.2 % [place] granulocytes/10 Hospital 0 leukocytes in Blood by Automated count ID Date Data Source [id number] 06/21/2019 06:41:00 AM EDT [facility] Value Range Interpretation Description Data Sup porting Code Source(s) Document(s ) Basophils/100 1.1 % [place] leukocytes in Hospital Blood by Automated count ID Date Data Source [id number] 06/21/2019 06:41:00 AM EDT [facility] Value Range Interpretation Description Data Sup porting Code Source(s) Document(s ) Eosinophils/100 6.5 % [place] leukocytes in Hospital Blood by Automated count ID Date Data Source [id number] 06/21/2019 06:41:00 AM EDT [facility] Value Range Interpretation Description Data Sup porting Code Source(s) Document(s ) Monocytes/100 9.4 % [place] leukocytes in Hospital Blood by Automated count ID Date Data Source [id number] 06/21/2019 06:41:00 AM EDT [facility] Value Range Interpretation Description Data Sup porting Code Source(s) Document(s ) Lymphocytes/10 60.6 % [place] 0 leukocytes Hospital in Blood by Automated count ID Date Data Source [id number] 06/21/2019 06:41:00 AM EDT [facility] Value Range Interpretation Description Data Sup porting Code Source(s) Document(s ) Neutrophils/10 22.2 % [place] 0 leukocytes Hospital in Blood by Automated count ID Date Data Source [id number] 06/21/2019 06:41:00 AM EDT [facility] Value Range Interpretation Description Data Sup porting Code Source(s) Document(s ) Platelet mean 13.0 fL [place] volume Hospital [Entitic volume] in Blood by Automated count ID Date Data Source [id number] 06/21/2019 06:41:00 AM EDT [facility] Value Range Interpretation Description Data Sup porting Code Source(s) Document(s ) Platelets 132 [place] [#/volume] in 10*3/uL Hospital Blood by Automated count ID Date Data Source [id number] 06/21/2019 06:41:00 AM [facility] Value Range Interpretation Description Data Sup porting Code Source(s) Document(s ) Erythrocyte 14.6 % [facility] Hospital width [Ratio] by Automated count ID Date Data Source [id number] 06/21/2019 06:41:00 AM [facility] Value Range Interpretation Description Data Sup porting Code Source(s) Document(s ) Erythrocyte mean 34.9 [place] corpuscular g/dL Hospital hemoglobin concentration [Mass/volume] by Automated count ID Date Data Source [id number] 06/21/2019 06:41:00 AM [facility] Value Range Interpretation Description Data Sup porting Code Source(s) Document(s ) Erythrocyte 29.0 pg [facility] corpuscular hemoglobin [Entitic mass] by Automated count ID Date Data Source [id number] 06/21/2019 06:41:00 AM [facility] Value Range Interpretation Description Data Sup porting Code Source(s) Document(s ) Erythrocyte 83.0 fL [facility] corpuscular volume [Entitic volume] by Automated count ID Date Data Source [id number] 06/21/2019 06:41:00 AM [facility] Value Range Interpretation Description Data Sup porting Code Source(s) Document(s ) Hematocrit 33.8 % [place] [Volume Hospital Fraction] of Blood by Automated count ID Date Data Source [id number] 06/21/2019 06:41:00 AM [facility] Value Range Interpretation Description Data Sup porting Code Source(s) Document(s ) Hemoglobin 11.8 g/dL [place] [Mass/volume] Hospital in Blood ID Date Data Source [id number] 06/21/2019 06:41:[address] [facility] Name Value Range Interpretation Description Data Sup porting Code Source(s) Document(s ) Erythrocytes 4.07 [place] [#/volume] in 10*6/uL Hospital Blood by Automated count ID Date Data Source [id number] 06/21/2019 06:41:[address] [facility] Name Value Range Interpretation Description Data Sup porting Code Source(s) Document(s ) Leukocytes 4.5 [place] [#/volume] in 10*3/uL Hospital Blood by Automated count ID Date Data Source [id number] 06/21/2019 06:41:[address] [facility] NOTIFICATION AND READ BACK OF CRITICAL R ESULTS TO MARU PINO RN 5E AT 0824 ON 06/21/19 BY Jessica Quinteros.REPORTED CR ITICAL VALUES SHOULD BE INTERPRETED WITHIN CLINICAL CONTEXT. Name Value Range Interpretation Description Data Sup porting Code Source(s) Document(s ) Ammonia 83 mmol/L [place] [Moles/volum Hospital e] in Plasma ID Date Data Source [id number] 06/21/2019 06:41:[address] [facility] Name Value Range Interpretation Description Data Sup porting Code Source(s) Document(s ) Aspartate 52 U/L [facility] aminotransferase [place] [Enzymatic Hospital activity/volume] in Serum or Plasma ID Date Data Source [id number] 06/21/2019 06:41:[address] [facility] Name Value Range Interpretation Description Data Sup porting Code Source(s) Document(s ) Alanine 30 U/L [place] aminotransferase [place] [Enzymatic Hospital activity/volume] in Serum or Plasma ID Date Data Source [id number] 06/21/2019 06:41:[address] [facility] Name Value Range Interpretation Description Data Sup porting Code Source(s) Document(s ) Alkaline 72 U/L [facility] [Enzymatic activity/volume ] in Serum or Plasma ID Date Data Source [id number] 06/21/2019 06:41:00 AM EDT [facility] Name Value Range Interpretation Description Data Sup porting Code Source(s) Document(s ) Bilirubin.t 1.3 mg/dL [facility] [Mass/volum e] in Serum or Plasma ID Date Data Source [id number] 06/21/2019 06:41:00 AM EDT [facility] Name Value Range Interpretation Code Description Data Bryanna rce(s) Supporting Document(s ) Albumin/Glob 1.1 [facility] [Mass Hospital Ratio] in Serum or Plasma ID Date Data Source [id number] 06/21/2019 06:41:00 AM EDT [facility] Name Value Range Interpretation Description Data Sup porting Code Source(s) Document(s ) Albumin 2.7 g/dL [place] [Mass/volume Hospital ] in Serum or Plasma ID Date Data Source [id number] 06/21/2019 06:41:00 AM EDT [facility] Name Value Range Interpretation Description Data Sup porting Code Source(s) Document(s ) Protein 5.2 g/dL [place] [Mass/volume Hospital ] in Serum or Plasma ID Date Data Source [id number] 06/21/2019 06:41:00 AM EDT [facility] Name Value Range Interpretation Description Data Sup porting Code Source(s) Document(s ) Calcium 7.9 mg/dL [place] [Mass/volume Hospital ] in Serum or Plasma ID Date Data Source [id number] 06/19/2019 08:19:00 AM EST [facility] Name Value Range Interpretation Description Data Sup porting Code Source(s) Document(s ) Magnesium 1.7 mg/dL [place] [Mass/volume] Hospital in Serum or Plasma ID Date Data Source [id number] 06/17/2019 11:38:00 PM EST [facility] Value Range Interpretation Description Data Sup porting Code Source(s) Document(s ) Lactate 1.9 [place] [Moles/volum mmol/L Hospital e] in Serum or Plasma ID Date Data Source [id number] 06/17/2019 08:02:00 PM EST [facility] Value Range Interpretation Code Description Data Bryanna rce(s) Supporting Document(s ) ABG TEMP 98.0 [facility] ID Date Data Source [id number] 06/17/2019 08:02:00 PM EST [facility] Value Range Interpretation Code Description Data Bryanna rce(s) Supporting Document(s ) FIO2 21 [facility] ID Date Data Source [id number] 06/17/2019 08:02:00 PM EST [facility] Value Range Interpretation Code Description Data Bryanna rce(s) Supporting Document(s ) ABG BE -6.0 [facility] ID Date Data Source [id number] 06/17/2019 08:02:00 PM EST [facility] Value Range Interpretation Code Description Data Bryanna rce(s) Supporting Document(s ) ABG O2SAT 96 % [facility] ID Date Data Source [id number] 06/17/2019 08:02:00 PM EST [facility] Value Range Interpretation Code Description Data Bryanna rce(s) Supporting Document(s ) ABG HCO3 19 meq/L [facility] ID Date Data Source [id number] 06/17/2019 08:02:00 PM EST [facility] Value Range Interpretation Code Description Data Bryanna rce(s) Supporting Document(s ) ABG PO2 86 mm[Hg] [facility] ID Date Data Source [id number] 06/17/2019 08:02:00 PM EST [facility] Name Value Range Interpretation Code Description Data Bryanna rce(s) Supporting Document(s ) ABG PCO2 35 mm[Hg] [facility] ID Date Data Source [id number] 06/17/2019 08:02:00 PM EST [facility] Name Value Range Interpretation Code Description Data Bryanna rce(s) Supporting Document(s ) ABG PH 7.36 U [facility] ID Date Data Source [id number] 06/17/2019 08:02:00 PM [facility] Value Range Interpretation Code Description Data Bryanna rce(s) Supporting Document(s ) ABG MODE RA [facility] ID Date Data Source [id number] 06/17/2019 08:02:00 PM [facility] Name Value Range Interpretation Code Description Data Bryanna rce(s) Supporting Document(s ) ABG SITE RR [facility] ID Date Data Source [id number] 06/17/2019 08:02:00 PM [facility] Value Range Interpretation Code Description Data Supporting Source(s) Document(s ) ABG SOURCE ARTERIAL [facility] ID Date Data Source [id number] 06/17/2019 08:02:00 PM [facility] Value Range Interpretation Code Description Data Bryanna rce(s) Supporting Document(s ) JORGE TEST POSITIVE [facility] ID Date Data Source [id number] 06/17/2019 07:59:00 PM [facility] TEST PERFORMED BY [facility]ENS[facility] CHEMILUMINESCENCE METHOD. Name Value Range Interpretation Description Data Sup porting Code Source(s) Document(s ) Troponin 0.02 [place] I.cardiac ng/mL Hospital [Mass/volume ] in Serum or Plasma ID Date Data Source [id number] 06/17/2019 07:59:00 PM EST [place] [facility] Name Value Range Interpretation Description Data Sup porting Code Source(s) Document(s ) Leukocyte NEGATIVE [place] esterase Hospital [Presence] in Urine by Test strip ID Date Data Source [id number] 06/17/2019 07:59:00 PM EST [facility] Name Value Range Interpretation Description Data Sup porting Code Source(s) Document(s ) URINE NEGATIVE [place] NITRITES Hospital ID Date Data Source [id number] 06/17/2019 07:59:00 PM EST [facility] Name Value Range Interpretation Description Data Sup porting Code Source(s) Document(s ) Erythrocytes NEGATIVE [place] [#/volume] in Hospital Urine by Test strip ID Date Data Source [id number] 06/17/2019 07:59:00 PM EST [facility] Name Value Range Interpretation Code Description Data Bryanna rce(s) Supporting Document(s ) Bilirubin. NEGATIVE [place] total Hospital [Presence] in Urine by Test strip ID Date Data Source [id number] 06/17/2019 07:59:00 PM EST [facility] Name Value Range Interpretation Description Data Sup porting Code Source(s) Document(s ) Urobilinogen 0.2 [place] [Units/volume] mg/dL Hospital in Urine by Test strip ID Date Data Source [id number] 06/17/2019 07:59:00 PM EST [facility] Name Value Range Interpretation Code Description Data Bryanna rce(s) Supporting Document(s ) Ketones 4+ [place] [Mass/volume Hospital ] in Urine by Test strip ID Date Data Source [id number] 06/17/2019 07:59:00 PM EST [facility] Name Value Range Interpretation Code Description Data Bryanna rce(s) Supporting Document(s ) Glucose 3+ [place] [Mass/volume Hospital ] in Urine by Test strip ID Date Data Source [id number] 06/17/2019 07:59:00 PM EST [facility] Name Value Range Interpretation Description Data Sup porting Code Source(s) Document(s ) Protein NEGATIVE [place] [Presence] Hospital in Urine by Test strip ID Date Data Source [id number] 06/17/2019 07:59:00 PM [facility] Name Value Range Interpretation Code Description Data Bryanna rce(s) Supporting Document(s ) pH of Urine 5.5 [place] by Test Hospital strip ID Date Data Source [id number] 06/17/2019 07:59:00 PM [facility] Name Value Range Interpretation Code Description Data Supporting Source(s) Document(s ) Specific 1.044 [place] gravity of Hospital Urine by Test strip ID Date Data Source [id number] 06/17/2019 07:59:00 PM EST [facility] Name Value Range Interpretation Description Data Sup porting Code Source(s) Document(s ) Clarity in Urine CLEAR [place] by Refractometry Hospital automated ID Date Data Source [id number] 06/17/2019 07:59:00 PM [facility] Hospital Name Value Range Interpretation Code Description Data Bryanna rce(s) Supporting Document(s ) Color of YELLOW [place] Urine Hospital ID Date Data Source [id number] 06/17/2019 07:59:00 PM [facility] THERAPEUTIC RANGES:UNFRACTIONATED HEPARI N THERAPY: 60-90 SECONDSARGATROBAN THERAPY: 49-99 SECONDS Name Value Range Interpretation Description Data Sup porting Code Source(s) Document(s ) aPTT in 35.5 s [place] Platelet poor [facility] plasma by Coagulation assay ID Date Data Source [id number] 06/17/2019 07:59:00 PM [facility] THERAPEUTIC RANGE FOR STANDARD ORALANTIC OAGULANT THERAPY: 2.0-3.0THERAPEUTIC RANGE FOR HIGH DOSE ORALANTICOAGULANT THERAPY (MECHANICAL HEARTVALVE REPLACEMENT): 2.5-3.5 Name Value Range Interpretation Description Data Sup porting Code Source(s) Document(s ) INR in Platelet 1.0 [place] poor plasma by Hospital Coagulation assay ID Date Data Source [id number] 06/17/2019 07:59:00 PM [facility] Name Value Range Interpretation Description Data Sup porting Code Source(s) Document(s ) PT panel - 10.9 s [place] Platelet poor [facility] plasma by Coagulation assay ID Date Data Source [id number] 06/17/2019 07:30:00 PM [facility] Name Value Range Interpretation Description Data Sup porting Code Source(s) Document(s ) Bacteria No growth [place] identified in Hospital Blood by Culture ID Date Data Source [id number] 06/17/2019 07:01:00 PM [facility] Name Value Range Interpretation Description Data Sup porting Code Source(s) Document(s ) GLUCOSE RN Notified [facility] Hospital ID Date Data Source [id number] 05/28/2019 11:42:00 AM [facility] Name Value Range Interpretation Description Data Sup porting Code Source(s) Document(s ) GLUCOSE Notified [place] [address] Hospital ID Date Data Source [id number] 05/28/2019 11:42:00 AM [facility] Value Range Interpretation Description Data Sup porting Code Source(s) Document(s ) GLUCOSE Notified [place] COMMENT2 Hospital ID Date Data Source [id number] 05/28/2019 11:42:00 AM [facility] Name Value Range Interpretation Description Data Sup porting Code Source(s) Document(s ) GLUCOSE To Be [place] COMMENT Repeated Hospital ID Date Data Source [id number] 05/28/2019 11:42:00 AM [facility] Informatics Analyst:JEB WASHBURN Name Value Range Interpretation Description Data Sup porting Code Source(s) Document(s ) Glucose 419 mg/dL [place] [Mass/volume] [facility] in Capillary blood by Glucometer ID Date Data Source [id number] 05/26/2019 09:58:00 AM [facility] ADA RECOMMENDATIONS: NON-DIABETES: 4.0-6.0% CONTROLLED DIABETES: 6.0-8.0% UNCONTROLLED DIABETE S: UP TO 20%RECOMMENDED ADA RESULT FOR THERAPY: HEMOGLOBIN A1C RESULT LESS GM N 7%.NOTE: METHOD CHANGE EFFECTIVE 11/11/14. Name Value Range Interpretation Description Data Sup porting Code Source(s) Document(s ) Hemoglobin 10.7 % [place] A1c/Hemoglobin Hospital .total in Blood ID Date Data Source [id number] 05/26/2019 09:58:00 AM [facility] Name Value Range Interpretation Description Data Sup porting Code Source(s) Document(s ) Phosphate 3.6 mg/dL [place] [Mass/volume] [facility] in Serum or Plasma ID Date Data Source [id number] 05/26/2019 09:58:00 AM [facility] ADA RECOMMENDATIONS: NON-DIABETES: 4.0-6.0% CONTROLLED DIABETES: 6.0-8.0% UNCONTROLLED DIABETE S: UP TO 20%RECOMMENDED ADA RESULT FOR THERAPY: HEMOGLOBIN A1C RESULT LESS GM N 7%.NOTE: METHOD CHANGE EFFECTIVE 11/11/14. Name Value Range Interpretation Description Data Sup porting Code Source(s) Document(s ) Hemoglobin 10.7 % [place] A1c/Hemoglobin Hospital .total in Blood ID Date Data Source [id number] 05/26/2019 09:58:00 AM EST [facility] [facility] Name Value Range Interpretation Description Data Sup porting Code Source(s) Document(s ) Phosphate 3.6 mg/dL [place] [Mass/volume] Hospital in Serum or Plasma ID Date Data Source [id number] 05/26/2019 09:58:00 AM EST [facility] Name Value Range Interpretation Description Data Sup porting Code Source(s) Document(s ) Magnesium 1.8 mg/dL [place] [Mass/volume] Hospital in Serum or Plasma ID Date Data Source [id number] 05/26/2019 09:58:00 AM [facility] Hospital Name Value Range Interpretation Description Data Sup porting Code Source(s) Document(s ) Calcium 8.1 mg/dL [place] [Mass/volume Hospital ] in Serum or Plasma ID Date Data Source [id number] 05/26/2019 09:58:00 AM [facility] Hospital Name Value Range Interpretation Code Description Data Bryanna rce(s) Supporting Document(s ) Urea 17.1 [place] nitrogen/Cre Hospital atinine [Mass Ratio] in Serum or Plasma ID Date Data Source [id number] 05/26/2019 09:58:00 AM EST [place] [facility] Name Value Range Interpretation Description Data Sup porting Code Source(s) Document(s ) Creatinine 0.7 mg/dL [place] [Mass/volume] Hospital in Serum or Plasma ID Date Data Source [id number] 05/26/2019 09:58:00 AM [facility] Hospital Name Value Range Interpretation Description Data Sup porting Code Source(s) Document(s ) Urea 12 mg/dL [place] nitrogen Hospital [Mass/volume ] in Serum or Plasma ID Date Data Source [id number] 05/26/2019 09:58:00 AM EST [place] [facility] Name Value Range Interpretation Code Description Data Bryanna rce(s) Supporting Document(s ) Anion gap in 11 [place] Serum or Hospital Plasma ID Date Data Source [id number] 05/26/2019 09:58:00 AM EST [place] [facility] Name Value Range Interpretation Description Data Sup porting Code Source(s) Document(s ) Carbon 24 mmol/L [place] dioxide, Hospital total [Moles/volu me] in Serum or Plasma ID Date Data Source [id number] 05/26/2019 09:58:00 AM EST [place] Name Value Range Interpretation Description Data Sup porting Code Source(s) Document(s ) Chloride 109 [place] [Moles/volum mmol/L Hospital e] in Serum or Plasma ID Date Data Source [id number] 05/26/2019 09:58:00 AM EST [place] [facility] Name Value Range Interpretation Description Data Sup porting Code Source(s) Document(s ) Potassium 3.8 [place] [Moles/volume mmol/L Hospital ] in Serum or Plasma ID Date Data Source [id number] 05/26/2019 09:58:00 AM EST [facility] Name Value Range Interpretation Description Data Sup porting Code Source(s) Document(s ) Sodium 140 mmol/L [place] [Moles/volu Hospital me] in Serum or Plasma ID Date Data Source [id number] 05/26/2019 09:58:00 AM EST [facility] Name Value Range Interpretation Description Data Sup porting Code Source(s) Document(s ) Glucose 313 mg/dL [place] [Mass/volume Hospital ] in Serum or Plasma ID Date Data Source [id number] 05/26/2019 09:58:00 AM EST [facility] Name Value Range Interpretation Code Description Data Supporting Source(s) Document(s ) NUCLEATED RBCS 0.0 % [place] (AUTO Hospital DIFF%)DIS ID Date Data Source [id number] 05/26/2019 09:58:00 AM EST [facility] Name Value Range Interpretation Description Data Sup porting Code Source(s) Document(s ) Differential AUTOMATED [place] cell count Hospital method - Blood ID Date Data Source [id number] 05/26/2019 09:58:00 AM EST [facility] Name Value Range Interpretation Description Data Sup porting Code Source(s) Document(s ) Immature 0.02 [place] granulocytes 10*3/uL Hospital [#/volume] in Blood by Automated count ID Date Data Source [id number] 05/26/2019 09:58:00 AM EST [facility] Name Value Range Interpretation Description Data Sup porting Code Source(s) Document(s ) Basophils 0.04 [place] [#/volume] in 10*3/uL Hospital Blood by Automated count ID Date Data Source [id number] 05/26/2019 09:58:00 AM EST [facility] Name Value Range Interpretation Description Data Sup porting Code Source(s) Document(s ) Eosinophils 0.16 [place] [#/volume] in 10*3/uL Hospital Blood by Automated count ID Date Data Source [id number] 05/26/2019 09:58:00 AM EST [facility] Name Value Range Interpretation Description Data Sup porting Code Source(s) Document(s ) Monocytes 0.65 [place] [#/volume] in 10*3/uL Hospital Blood by Automated count ID Date Data Source [id number] 05/26/2019 09:58:00 AM EST [facility] Name Value Range Interpretation Description Data Sup porting Code Source(s) Document(s ) Lymphocytes 1.90 [place] [#/volume] in 10*3/uL Hospital Blood by Automated count ID Date Data Source [id number] 05/26/2019 09:58:00 AM EST [facility] Value Range Interpretation Description Data Sup porting Code Source(s) Document(s ) Neutrophils 1.71 [place] [#/volume] in 10*3/uL Hospital Blood by Automated count ID Date Data Source [id number] 05/26/2019 09:58:00 AM EST [facility] Value Range Interpretation Description Data Sup porting Code Source(s) Document(s ) Nucleated 0.0 % [place] erythrocytes/10 Hospital 0 leukocytes [Ratio] in Blood by Automated count ID Date Data Source [id number] 05/26/2019 09:58:00 AM [facility] Value Range Interpretation Description Data Sup porting Code Source(s) Document(s ) Immature 0.4 % [place] granulocytes/10 Hospital 0 leukocytes in Blood by Automated count ID Date Data Source [id number] 05/26/2019 09:58:00 AM [facility] Value Range Interpretation Description Data Sup porting Code Source(s) Document(s ) Basophils/100 0.9 % [place] leukocytes in Hospital Blood by Automated count ID Date Data Source [id number] 05/26/2019 09:58:00 AM [facility] Value Range Interpretation Description Data Sup porting Code Source(s) Document(s ) Eosinophils/100 3.6 % [place] leukocytes in Hospital Blood by Automated count ID Date Data Source [id number] 05/26/2019 09:58:00 AM EST [facility] Value Range Interpretation Description Data Sup porting Code Source(s) Document(s ) Monocytes/100 14.5 % [place] leukocytes in Hospital Blood by Automated count ID Date Data Source [id number] 05/26/2019 09:58:00 AM EST [facility] Name Value Range Interpretation Description Data Sup porting Code Source(s) Document(s ) Lymphocytes/10 42.4 % [place] 0 leukocytes Hospital in Blood by Automated count ID Date Data Source [id number] 05/26/2019 09:58:00 AM [facility] Value Range Interpretation Description Data Sup porting Code Source(s) Document(s ) Neutrophils/10 38.2 % [place] 0 leukocytes Hospital in Blood by Automated count ID Date Data Source [id number] 05/26/2019 09:58:00 AM [facility] Value Range Interpretation Description Data Sup porting Code Source(s) Document(s ) Platelet mean 12.1 fL [place] volume Hospital [Entitic volume] in Blood by Automated count ID Date Data Source [id number] 05/26/2019 09:58:00 AM [facility] Value Range Interpretation Description Data Sup porting Code Source(s) Document(s ) Platelets 198 [place] [#/volume] in 10*3/uL Hospital Blood by Automated count ID Date Data Source [id number] 05/26/2019 09:58:00 AM [facility] Value Range Interpretation Description Data Sup porting Code Source(s) Document(s ) Erythrocyte 14.1 % [place] distribution Hospital width [Ratio] by Automated count ID Date Data Source [id number] 05/26/2019 09:58:00 AM [facility] Value Range Interpretation Description Data Sup porting Code Source(s) Document(s ) Erythrocyte mean 32.8 [place] corpuscular g/dL Hospital hemoglobin concentration [Mass/volume] by Automated count ID Date Data Source [id number] 05/26/2019 09:58:00 AM [facility] Name Value Range Interpretation Description Data Sup porting Code Source(s) Document(s ) Erythrocyte 28.8 pg [facility] corpuscular hemoglobin [Entitic mass] by Automated count ID Date Data Source [id number] 05/26/2019 09:58:00 AM [facility] Value Range Interpretation Description Data Sup porting Code Source(s) Document(s ) Erythrocyte 88.0 fL [facility] Hospital corpuscular volume [Entitic volume] by Automated count ID Date Data Source [id number] 05/26/2019 09:58:00 AM [facility] Value Range Interpretation Description Data Sup porting Code Source(s) Document(s ) Hematocrit 35.1 % [place] [Volume Hospital Fraction] of Blood by Automated count ID Date Data Source [id number] 05/26/2019 09:58:00 AM [facility] Value Range Interpretation Description Data Sup porting Code Source(s) Document(s ) Hemoglobin 11.5 g/dL [place] [Mass/volume] Hospital in Blood ID Date Data Source [id number] 05/26/2019 09:58:00 AM [facility] Value Range Interpretation Description Data Sup porting Code Source(s) Document(s ) Erythrocytes 3.99 [place] [#/volume] in 10*6/uL Hospital Blood by Automated count ID Date Data Source [id number] 05/26/2019 09:58:00 AM [facility] Name Value Range Interpretation Description Data Sup porting Code Source(s) Document(s ) Leukocytes 4.5 [place] [#/volume] in 10*3/uL Hospital Blood by Automated count ID Date Data Source [id number] 05/26/2019 12:00:00 AM [facility] TEST PERFORMED BY [facility] [facility] ULTRA SENSITIVE [facility] CHEMILUMINESCENCE METHOD. Name Value Range Interpretation Description Data Sup porting Code Source(s) Document(s ) Troponin 0.01 [place] I.cardiac ng/mL Hospital [Mass/volume ] in Serum or Plasma ID Date Data Source [id number] 05/26/2019 12:00:00 AM [facility] Name Value Range Interpretation Description Data Sup porting Code Source(s) Document(s ) Lactate 1.0 [place] [Moles/volum mmol/L Hospital e] in Serum or Plasma ID Date Data Source [id number] 05/25/2019 09:33:00 PM [facility] CUT-OFF >= 25 NG/ML.THE FINDINGS OF [...] rce(s) Supporting Document(s ) PCP (UR) NEGATIVE [facility] ID Date Data Source [id number] 05/25/2019 09:33:00 PM [facility] CUT-OFF >= 50 NG/ML. Name Value Range Interpretation Code Description Data Bryanna rce(s) Supporting Document(s ) THC (UR) NEGATIVE [facility] ID Date Data Source [id number] 05/25/2019 09:33:00 PM [facility] CUT-OFF >= 300 NG/ML. Name Value Range Interpretation Description Data Sup porting Code Source(s) Document(s ) OPIATES (UR) NEGATIVE [facility] ID Date Data Source [id number] 05/25/2019 09:33:00 PM [facility] CUT-OFF >= 300 NG/ML. Name Value Range Interpretation Description Data Sup porting Code Source(s) Document(s ) COCAINE (UR) NEGATIVE [place] [facility] ID Date Data Source [id number] 05/25/2019 09:33:00 PM [facility] CUT-OFF >= 200 NG/ML. Name Value Range Interpretation Description Data Sup porting Code Source(s) Document(s ) BENZODIAZEPINES NEGATIVE [place] (UR) [facility] ID Date Data Source [id number] 05/25/2019 09:33:00 PM [facility] CUT-OFF >= 200 NG/ML. Name Value Range Interpretation Description Data Sup porting Code Source(s) Document(s ) BARBITURATES NEGATIVE [place] (UR) Hospital ID Date Data Source [id number] 05/25/2019 09:33:00 PM [facility] CUT-OFF >= 1000 NG/ML. Name Value Range Interpretation Description Data Sup porting Code Source(s) Document(s ) AMPHETAMINES NEGATIVE [place] (UR) Hospital ID Date Data Source [id number] 05/25/2019 09:33:00 PM [facility] Name Value Range Interpretation Description Data Sup porting Code Source(s) Document(s ) Mucus PRESENT [place] [Presence] in Hospital Urine sediment by Light microscopy ID Date Data Source [id number] 05/25/2019 09:33:00 PM [facility] Name Value Range Interpretation Description Data Sup porting Code Source(s) Document(s ) Epithelial 2+ [place] cells.squamous Hospital [#/area] in Urine sediment by Microscopy high power field ID Date Data Source [id number] 05/25/2019 09:33:00 PM [facility] Name Value Range Interpretation Description Data Sup porting Code Source(s) Document(s ) Bacteria OCCASIONAL [place] [#/area] in Hospital Urine sediment by Microscopy high power field ID Date Data Source [id number] 05/25/2019 09:33:00 PM [facility] Name Value Range Interpretation Description Data Sup porting Code Source(s) Document(s ) Erythrocytes 0-3 [place] [#/area] in /[HPF] Hospital Urine sediment by Microscopy high power field ID Date Data Source [id number] 05/25/2019 09:33:00 PM [facility] Name Value Range Interpretation Description Data Sup porting Code Source(s) Document(s ) Leukocytes 3-5 [place] [#/area] in /[HPF] Hospital Urine sediment by Microscopy high power field ID Date Data Source [id number] 05/25/2019 09:33:00 PM [facility] CUT-OFF >= 25 NG/ML.THE FINDINGS OF [...] rce(s) Supporting Document(s ) PCP (UR) NEGATIVE [place] [facility] ID Date Data Source [id number] 05/25/2019 09:33:00 PM [facility] CUT-OFF >= 50 NG/ML. Name Value Range Interpretation Code Description Data Bryanna rce(s) Supporting Document(s ) THC (UR) NEGATIVE [place] [facility] ID Date Data Source [id number] 05/25/2019 09:33:00 PM [facility] CUT-OFF >= 300 NG/ML. Name Value Range Interpretation Description Data Sup porting Code Source(s) Document(s ) OPIATES (UR) NEGATIVE [place] [facility] ID Date Data Source [id number] 05/25/2019 09:33:00 PM [facility] CUT-OFF >= 300 NG/ML. Name Value Range Interpretation Description Data Sup porting Code Source(s) Document(s ) COCAINE (UR) NEGATIVE [place] [facility] ID Date Data Source [id number] 05/25/2019 09:33:00 PM [facility] CUT-OFF >= 200 NG/ML. Name Value Range Interpretation Description Data Sup porting Code Source(s) Document(s ) BENZODIAZEPINES NEGATIVE [place] (UR) [facility] ID Date Data Source [id number] 05/25/2019 09:33:00 PM [facility] CUT-OFF >= 200 NG/ML. Name Value Range Interpretation Description Data Sup porting Code Source(s) Document(s ) BARBITURATES NEGATIVE [place] (UR) Hospital ID Date Data Source [id number] 05/25/2019 09:33:00 PM [facility] CUT-OFF >= 1000 NG/ML. Name Value Range Interpretation Description Data Sup porting Code Source(s) Document(s ) AMPHETAMINES NEGATIVE [place] (UR) Hospital ID Date Data Source [id number] 05/25/2019 09:33:00 PM [facility] Name Value Range Interpretation Description Data Sup porting Code Source(s) Document(s ) Mucus PRESENT [place] [Presence] in Hospital Urine sediment by Light microscopy ID Date Data Source [id number] 05/25/2019 09:33:00 PM [facility] Name Value Range Interpretation Description Data Sup porting Code Source(s) Document(s ) Epithelial 2+ [place] cells.squamous Hospital [#/area] in Urine sediment by Microscopy high power field ID Date Data Source [id number] 05/25/2019 09:33:00 PM [facility] Name Value Range Interpretation Description Data Sup porting Code Source(s) Document(s ) Bacteria OCCASIONAL [place] [#/area] in Hospital Urine sediment by Microscopy high power field ID Date Data Source [id number] 05/25/2019 09:33:00 PM EST [facility] Name Value Range Interpretation Description Data Sup porting Code Source(s) Document(s ) Erythrocytes 0-3 [place] [#/area] in /[HPF] Hospital Urine sediment by Microscopy high power field ID Date Data Source [id number] 05/25/2019 09:33:00 PM [facility] Name Value Range Interpretation Description Data Sup porting Code Source(s) Document(s ) Leukocytes 3-5 [place] [#/area] in /[HPF] Hospital Urine sediment by Microscopy high power field ID Date Data Source [id number] 05/25/2019 09:33:00 PM [facility] Value Range Interpretation Code Description Data Supporting Source(s) Document(s ) Leukocyte TRACE [place] esterase Hospital [Presence] in Urine by Test strip ID Date Data Source [id number] 05/25/2019 09:33:00 PM EST [facility] Name Value Range Interpretation Description Data Sup porting Code Source(s) Document(s ) URINE NEGATIVE [place] NITRITES Hospital ID Date Data Source [id number] 05/25/2019 09:33:00 PM [facility] Name Value Range Interpretation Description Data Sup porting Code Source(s) Document(s ) Erythrocytes NEGATIVE [place] [#/volume] in Hospital Urine by Test strip ID Date Data Source [id number] 05/25/2019 09:33:00 PM EST [facility] Name Value Range Interpretation Code Description Data Bryanna rce(s) Supporting Document(s ) Bilirubin. NEGATIVE [place] total Hospital [Presence] in Urine by Test strip ID Date Data Source [id number] 05/25/2019 09:33:00 PM EST [facility] Name Value Range Interpretation Description Data Sup porting Code Source(s) Document(s ) Urobilinogen 1.0 [place] [Units/volume] mg/dL Hospital in Urine by Test strip ID Date Data Source [id number] 05/25/2019 09:33:00 PM EST [facility] Name Value Range Interpretation Code Description Data Bryanna rce(s) Supporting Document(s ) Ketones 1+ [place] [Mass/volume Hospital ] in Urine by Test strip ID Date Data Source [id number] 05/25/2019 09:33:00 PM EST [facility] Name Value Range Interpretation Description Data Sup porting Code Source(s) Document(s ) Glucose NEGATIVE [place] [Mass/volume Hospital ] in Urine by Test strip ID Date Data Source [id number] 05/25/2019 09:33:00 PM EST [facility] Name Value Range Interpretation Code Description Data Bryanna rce(s) Supporting Document(s ) Protein TRACE [place] [Presence] Hospital in Urine by Test strip ID Date Data Source [id number] 05/25/2019 09:33:00 PM EST [facility] Name Value Range Interpretation Code Description Data Bryanna rce(s) Supporting Document(s ) pH of Urine 6.5 [place] by Test Hospital strip ID Date Data Source [id number] 05/25/2019 09:33:00 PM EST [facility] Name Value Range Interpretation Code Description Data Supporting Source(s) Document(s ) Specific 1.026 [place] gravity of Hospital Urine by Test strip ID Date Data Source [id number] 05/25/2019 09:33:00 PM EST [facility] Name Value Range Interpretation Description Data Sup porting Code Source(s) Document(s ) Clarity in Urine CLEAR [place] by Refractometry Hospital automated ID Date Data Source [id number] 05/25/2019 09:33:00 PM [facility] Value Range Interpretation Code Description Data Supporting Source(s) Document(s ) Color of DK YELLOW [place] Urine Hospital ID Date Data Source [id number] 05/25/2019 07:31:00 PM [facility] Value Range Interpretation Description Data Sup porting Code Source(s) Document(s ) Bacteria No growth [place] identified in Hospital Blood by Culture ID Date Data Source [id number] 05/25/2019 07:24:00 PM [facility] Value Range Interpretation Description Data Sup porting Code Source(s) Document(s ) Thyroxine 0.7 ng/dL [place] (T4) free Hospital [Mass/volume] in Serum or Plasma ID Date Data Source [id number] 05/25/2019 07:24:00 PM [facility] Value Range Interpretation Description Data Sup porting Code Source(s) Document(s ) Thyrotropin 2.463 [place] [Units/volume] u[IU]/mL Hospital in Serum or Plasma by Detection limit <= 0.005 mIU/L ID Date Data Source [id number] 05/25/2019 07:24:00 PM [facility] Value Range Interpretation Description Data Sup porting Code Source(s) Document(s ) Thyroxine 0.7 ng/dL [place] (T4) free Hospital [Mass/volume] in Serum or Plasma ID Date Data Source [id number] 05/25/2019 07:24:00 PM [facility] Value Range Interpretation Description Data Sup porting Code Source(s) Document(s ) Thyrotropin 2.463 [place] [Units/volume] u[IU]/mL Hospital in Serum or Plasma by Detection limit <= 0.005 mIU/L ID Date Data Source [id number] 05/25/2019 07:24:00 PM [facility] NOTIFICATION AND READ BACK OF CRITICAL R ESULTS TO DO [place] OF AT 2018 ON 05/25/19 BY Jeri Iraheta.REPORTED CRITIC AL VALUES SHOULD BE INTERPRETED WITHIN CLINICAL CONTEXT. Name Value Range Interpretation Description Data Sup porting Code Source(s) Document(s ) Ammonia 56 mmol/L [place] [Moles/volum Hospital e] in Plasma ID Date Data Source [id number] 05/25/2019 07:24:00 PM [facility] Name Value Range Interpretation Description Data Sup porting Code Source(s) Document(s ) Aspartate 33 U/L White aminotransferase [place] [Enzymatic Hospital activity/volume] in Serum or Plasma ID Date Data Source [id number] 05/25/2019 07:24:00 PM [facility] Name Value Range Interpretation Description Data Sup porting Code Source(s) Document(s ) Alanine 23 U/L [facility] aminotransferase [place] [Enzymatic Hospital activity/volume] in Serum or Plasma ID Date Data Source [id number] 05/25/2019 07:24:00 PM [facility] Name Value Range Interpretation Description Data Sup porting Code Source(s) Document(s ) Alkaline 84 U/L [place] phosphatase Hospital [Enzymatic activity/volume ] in Serum or Plasma ID Date Data Source [id number] 05/25/2019 07:24:00 PM [facility] Name Value Range Interpretation Description Data Sup porting Code Source(s) Document(s ) Bilirubin.t 0.8 mg/dL [facility] [Mass/volum e] in Serum or Plasma ID Date Data Source [id number] 05/25/2019 07:24:00 PM [facility] Name Value Range Interpretation Code Description Data Bryanna rce(s) Supporting Document(s ) [facility] Serum or Plasma ID Date Data Source [id number] 05/25/2019 07:24:00 PM [facility] Name Value Range Interpretation Description Data Sup porting Code Source(s) Document(s ) Albumin 3.6 g/dL [place] [Mass/volume [facility] ] in Serum or Plasma ID Date Data Source [id number] 05/25/2019 07:24:00 PM [facility] Name Value Range Interpretation Description Data Sup porting Code Source(s) Document(s ) Protein 7.1 g/dL [place] [Mass/volume Hospital ] in Serum or Plasma ID Date Data Source [id number] 05/25/2019 07:24:00 PM [facility] THERAPEUTIC RANGES:UNFRACTIONATED HEPARI N THERAPY: 60-90 SECONDSARGATROBAN THERAPY: 49-99 SECONDS Name Value Range Interpretation Description Data Sup porting Code Source(s) Document(s ) aPTT in 31.8 s [place] Platelet poor [facility] plasma by Coagulation assay ID Date Data Source [id number] 05/25/2019 07:24:00 PM [facility] THERAPEUTIC RANGE FOR STANDARD ORALANTIC OAGULANT THERAPY: 2.0-3.0THERAPEUTIC RANGE FOR HIGH DOSE ORALANTICOAGULANT THERAPY (MECHANICAL HEARTVALVE REPLACEMENT): 2.5-3.5 Name Value Range Interpretation Description Data Sup porting Code Source(s) Document(s ) INR in Platelet 1.1 [place] poor plasma by Hospital Coagulation assay ID Date Data Source [id number] 05/25/2019 07:24:00 PM [facility] Name Value Range Interpretation Description Data Sup porting Code Source(s) Document(s ) PT panel - 12.3 s [place] Platelet poor Hospital plasma by Coagulation assay ID Date Data Source [id number] 05/21/2019 04:13:00 PM [facility] Informatics Analyst:STEPHANIE ONTIVEROSORAH Name Value Range Interpretation Description Data Sup porting Code Source(s) Document(s ) Glucose 265 mg/dL [place] [Mass/volume] Hospital in Capillary blood by Glucometer ID Date Data Source [id number] 05/21/2019 07:44:00 AM [facility] TEST PERFORMED BY [employer] ULTRA SENSITIVE C[facility]AUR CHEMILUMINESCENCE METHOD. Name Value Range Interpretation Description Data Sup porting Code Source(s) Document(s ) Troponin 0.02 [place] I.cardiac ng/mL Hospital [Mass/volume ] in Serum or Plasma ID Date Data Source [id number] 05/21/2019 07:44:00 AM [facility] Name Value Range Interpretation Description Data Sup porting Code Source(s) Document(s ) Magnesium 2.2 mg/dL [place] [Mass/volume] Hospital in Serum or Plasma ID Date Data Source [id number] 05/21/2019 07:44:00 AM [facility] Name Value Range Interpretation Description Data Sup porting Code Source(s) Document(s ) Calcium 8.0 mg/dL [place] [Mass/volume Hospital ] in Serum or Plasma ID Date Data Source [id number] 05/21/2019 07:44:00 AM [facility] Name Value Range Interpretation Code Description Data Bryanna rce(s) Supporting Document(s ) Urea 11.4 [place] nitrogen/Cre Hospital atinine [Mass Ratio] in Serum or Plasma ID Date Data Source [id number] 05/21/2019 07:44:00 AM [facility] Name Value Range Interpretation Description Data Sup porting Code Source(s) Document(s ) Creatinine 0.7 mg/dL [place] [Mass/volume] Hospital in Serum or Plasma ID Date Data Source [id number] 05/21/2019 07:44:00 AM EST [facility] Name Value Range Interpretation Description Data Sup porting Code Source(s) Document(s ) Urea nitrogen 8 mg/dL [place] [Mass/volume] Hospital in Serum or Plasma ID Date Data Source [id number] 05/21/2019 07:44:00 AM [facility] Value Range Interpretation Code Description Data Bryanna rce(s) Supporting Document(s ) Anion gap in 10 [place] Serum or [facility] Plasma ID Date Data Source [id number] 05/21/2019 07:44:00 AM [facility] Value Range Interpretation Description Data Sup porting Code Source(s) Document(s ) Carbon 29 mmol/L [place] dioxide, Hospital total [Moles/volu me] in Serum or Plasma ID Date Data Source [id number] 05/21/2019 07:44:00 AM [facility] Value Range Interpretation Description Data Sup porting Code Source(s) Document(s ) Chloride 106 [place] [Moles/volum mmol/L Hospital e] in Serum or Plasma ID Date Data Source [id number] 05/21/2019 07:44:00 AM [facility] Hospital Name Value Range Interpretation Description Data Sup porting Code Source(s) Document(s ) Potassium 3.5 [place] [Moles/volume mmol/L Hospital ] in Serum or Plasma ID Date Data Source [id number] 05/21/2019 07:44:00 AM EST [facility] Name Value Range Interpretation Description Data Sup porting Code Source(s) Document(s ) Sodium 141 mmol/L [place] [Moles/volu Hospital me] in Serum or Plasma ID Date Data Source [id number] 05/21/2019 07:44:00 AM [facility] Name Value Range Interpretation Description Data Sup porting Code Source(s) Document(s ) Glucose 211 mg/dL [place] [Mass/volume Hospital ] in Serum or Plasma ID Date Data Source [id number] 05/21/2019 02:20:00 AM [facility] Name Value Range Interpretation Description Data Sup porting Code Source(s) Document(s ) Procalcitonin 1.1 [place] [Mass/volume] in ng/mL Hospital Serum or Plasma ID Date Data Source [id number] 05/21/2019 02:20:00 AM [facility] Name Value Range Interpretation Description Data Sup porting Code Source(s) Document(s ) Procalcitonin 1.1 [place] [Mass/volume] in ng/mL Hospital Serum or Plasma ID Date Data Source [id number] 05/21/2019 02:20:00 AM [facility] Name Value Range Interpretation Description Data Sup porting Code Source(s) Document(s ) Phosphate 2.5 mg/dL [place] [Mass/volume] Hospital in Serum or Plasma ID Date Data Source [id number] 05/21/2019 02:20:00 AM [facility] Name Value Range Interpretation Description Data Sup porting Code Source(s) Document(s ) Platelet mean 12.1 fL [place] volume Hospital [Entitic volume] in Blood by Automated count ID Date Data Source [id number] 05/21/2019 02:20:00 AM [facility] Name Value Range Interpretation Description Data Sup porting Code Source(s) Document(s ) Platelets 144 [place] [#/volume] in 10*3/uL Hospital Blood by Automated count ID Date Data Source [id number] 05/21/2019 02:20:00 AM [facility] Name Value Range Interpretation Description Data Sup porting Code Source(s) Document(s ) Erythrocyte 13.5 % [facility] Hospital width [Ratio] by Automated count ID Date Data Source [id number] 05/21/2019 02:20:00 AM [facility] Value Range Interpretation Description Data Sup porting Code Source(s) Document(s ) Erythrocyte mean 34.8 [place] corpuscular g/dL Hospital hemoglobin concentration [Mass/volume] by Automated count ID Date Data Source [id number] 05/21/2019 02:20:00 AM [facility] Value Range Interpretation Description Data Sup porting Code Source(s) Document(s ) Erythrocyte 29.0 pg [facility] corpuscular hemoglobin [Entitic mass] by Automated count ID Date Data Source [id number] 05/21/2019 02:20:00 AM [facility] Value Range Interpretation Description Data Sup porting Code Source(s) Document(s ) Erythrocyte 83.3 fL [facility] corpuscular volume [Entitic volume] by Automated count ID Date Data Source [id number] 05/21/2019 02:20:00 AM [facility] Value Range Interpretation Description Data Sup porting Code Source(s) Document(s ) Hematocrit 33.0 % [place] [Volume Hospital Fraction] of Blood by Automated count ID Date Data Source [id number] 05/21/2019 02:20:00 AM [facility] Value Range Interpretation Description Data Sup porting Code Source(s) Document(s ) Hemoglobin 11.5 g/dL [place] [Mass/volume] Hospital in Blood ID Date Data Source [id number] 05/21/2019 02:20:00 AM [facility] Name Value Range Interpretation Description Data Sup porting Code Source(s) Document(s ) Erythrocytes 3.96 [place] [#/volume] in 10*6/uL Hospital Blood by Automated count ID Date Data Source [id number] 05/21/2019 02:20:00 AM [facility] Name Value Range Interpretation Description Data Sup porting Code Source(s) Document(s ) Leukocytes 3.4 [place] [#/volume] in 10*3/uL Hospital Blood by Automated count ID Date Data Source [id number] 05/20/2019 08:14:00 PM [facility] Name Value Range Interpretation Description Data Sup porting Code Source(s) Document(s ) GLUCOSE RN Notified [facility] ID Date Data Source [id number] 05/20/2019 07:11:00 AM [facility] LOW MALE AND AVERAGE FEMALE CORONARY HEA RT DISEASE RISK. Name Value Range Interpretation Description Data Sup porting Code Source(s) Document(s ) Cholesterol 3.8 [place] .total/Chol {ratio} Hospital esterol in HDL [Mass Ratio] in Serum or Plasma ID Date Data Source [id number] 05/20/2019 07:11:00 AM [facility] Name Value Range Interpretation Description Data Sup porting Code Source(s) Document(s ) Cholesterol in 15 mg/dL [place] VLDL Hospital [Mass/volume] in Serum or Plasma by calculation ID Date Data Source [id number] 05/20/2019 07:11:00 AM [facility] Name Value Range Interpretation Description Data Sup porting Code Source(s) Document(s ) Cholesterol in 99 mg/dL [place] LDL Hospital [Mass/volume] in Serum or Plasma by Direct assay ID Date Data Source [id number] 05/20/2019 07:11:00 AM [facility] Name Value Range Interpretation Description Data Sup porting Code Source(s) Document(s ) Cholesterol in 48 mg/dL [place] HDL Hospital [Mass/volume] in Serum or Plasma ID Date Data Source [id number] 05/20/2019 07:11:00 AM [facility] Name Value Range Interpretation Description Data Sup porting Code Source(s) Document(s ) Triglyceride 75 mg/dL [place] [Mass/volume] in Hospital Serum or Plasma ID Date Data Source [id number] 05/20/2019 07:11:00 AM [facility] Name Value Range Interpretation Description Data Sup porting Code Source(s) Document(s ) Cholesterol 183 mg/dL [place] [Mass/volume] Hospital in Serum or Plasma ID Date Data Source [id number] 05/20/2019 07:11:00 AM [facility] LOW MALE AND AVERAGE FEMALE CORONARY HEA RT DISEASE RISK. Name Value Range Interpretation Description Data Sup porting Code Source(s) Document(s ) Cholesterol 3.8 [place] .total/Chol {ratio} Hospital esterol in HDL [Mass Ratio] in Serum or Plasma ID Date Data Source [id number] 05/20/2019 07:11:00 AM [facility] Name Value Range Interpretation Description Data Sup porting Code Source(s) Document(s ) Cholesterol in 15 mg/dL [place] VLDL Hospital [Mass/volume] in Serum or Plasma by calculation ID Date Data Source [id number] 05/20/2019 07:11:00 AM [facility] Name Value Range Interpretation Description Data Sup porting Code Source(s) Document(s ) Cholesterol in 99 mg/dL [place] LDL Hospital [Mass/volume] in Serum or Plasma by Direct assay ID Date Data Source [id number] 05/20/2019 07:11:00 AM [facility] Name Value Range Interpretation Description Data Sup porting Code Source(s) Document(s ) Cholesterol in 48 mg/dL [facility] Hospital [Mass/volume] in Serum or Plasma ID Date Data Source [id number] 05/20/2019 07:11:00 AM [facility] Name Value Range Interpretation Description Data Sup porting Code Source(s) Document(s ) Triglyceride 75 mg/dL [place] [Mass/volume] in Hospital Serum or Plasma ID Date Data Source [id number] 05/20/2019 07:11:00 AM [facility] Name Value Range Interpretation Description Data Sup porting Code Source(s) Document(s ) Cholesterol 183 mg/dL [place] [Mass/volume] Hospital in Serum or Plasma ID Date Data Source [id number] 05/20/2019 07:11:00 AM [facility] Name Value Range Interpretation Code Description Data Supporting Source(s) Document(s ) NUCLEATED RBCS 0.0 % [place] (AUTO Hospital DIFF%)DIS ID Date Data Source [id number] 05/20/2019 07:11:00 AM [facility] Value Range Interpretation Description Data Sup porting Code Source(s) Document(s ) Differential AUTOMATED [place] cell count Hospital method - Blood ID Date Data Source [id number] 05/20/2019 07:11:00 AM [facility] Hospital Name Value Range Interpretation Description Data Sup porting Code Source(s) Document(s ) Immature 0.01 [place] granulocytes 10*3/uL Hospital [#/volume] in Blood by Automated count ID Date Data Source [id number] 05/20/2019 07:11:00 AM [facility] Hospital Name Value Range Interpretation Description Data Sup porting Code Source(s) Document(s ) Basophils 0.04 [place] [#/volume] in 10*3/uL Hospital Blood by Automated count ID Date Data Source [id number] 05/20/2019 07:11:00 AM EST [facility] Name Value Range Interpretation Description Data Sup porting Code Source(s) Document(s ) Eosinophils 0.14 [place] [#/volume] in 10*3/uL Hospital Blood by Automated count ID Date Data Source [id number] 05/20/2019 07:11:00 AM [facility] Value Range Interpretation Description Data Sup porting Code Source(s) Document(s ) Monocytes 0.60 [place] [#/volume] in 10*3/uL Hospital Blood by Automated count ID Date Data Source [id number] 05/20/2019 07:11:00 AM [facility] Value Range Interpretation Description Data Sup porting Code Source(s) Document(s ) Lymphocytes 2.05 [place] [#/volume] in 10*3/uL Hospital Blood by Automated count ID Date Data Source [id number] 05/20/2019 07:11:00 AM [facility] Value Range Interpretation Description Data Sup porting Code Source(s) Document(s ) Neutrophils 1.12 [place] [#/volume] in 10*3/uL Hospital Blood by Automated count ID Date Data Source [id number] 05/20/2019 07:11:00 AM [facility] Name Value Range Interpretation Description Data Sup porting Code Source(s) Document(s ) Nucleated 0.0 % [place] erythrocytes/10 Hospital 0 leukocytes [Ratio] in Blood by Automated count ID Date Data Source [id number] 05/20/2019 07:11:00 AM [facility] Value Range Interpretation Description Data Sup porting Code Source(s) Document(s ) Immature 0.3 % [place] granulocytes/10 Hospital 0 leukocytes in Blood by Automated count ID Date Data Source [id number] 05/20/2019 07:11:00 AM EST [facility] [facility] Name Value Range Interpretation Description Data Sup porting Code Source(s) Document(s ) Basophils/100 1.0 % [place] leukocytes in Hospital Blood by Automated count ID Date Data Source [id number] 05/20/2019 07:11:00 AM EST [facility] Name Value Range Interpretation Description Data Sup porting Code Source(s) Document(s ) Eosinophils/100 3.5 % [place] leukocytes in Hospital Blood by Automated count ID Date Data Source [id number] 05/20/2019 07:11:00 AM EST [facility] Name Value Range Interpretation Description Data Sup porting Code Source(s) Document(s ) Monocytes/100 15.2 % [place] leukocytes in Hospital Blood by Automated count ID Date Data Source [id number] 05/20/2019 07:11:00 AM [facility] Hospital Name Value Range Interpretation Description Data Sup porting Code Source(s) Document(s ) Lymphocytes/10 51.8 % [place] 0 leukocytes Hospital in Blood by Automated count ID Date Data Source [id number] 05/20/2019 07:11:00 AM [facility] Hospital Name Value Range Interpretation Description Data Sup porting Code Source(s) Document(s ) Neutrophils/10 28.2 % [place] 0 leukocytes Hospital in Blood by Automated count ID Date Data Source [id number] 05/19/2019 03:33:00 PM EST [facility] [facility] Name Value Range Interpretation Code Description Data Bryanna rce(s) Supporting Document(s ) Cells 100 [place] Counted Hospital Total [#] in Blood ID Date Data Source [id number] 05/19/2019 03:33:00 PM EST [facility] Name Value Range Interpretation Code Description Data Supporting Source(s) Document(s ) PLATELET NORMAL [facility] Hospital ID Date Data Source [id number] 05/19/2019 03:33:00 PM [facility] Name Value Range Interpretation Code Description Data Bryanna rce(s) Supporting Document(s ) BINTA CELLS 1+ [facility] ID Date Data Source [id number] 05/19/2019 03:33:00 PM EST [facility] Name Value Range Interpretation Code Description Data Bryanna rce(s) Supporting Document(s ) TARGET CELLS OCC [facility] ID Date Data Source [id number] 05/19/2019 03:33:00 PM EST [facility] Name Value Range Interpretation Code Description Data Bryanna rce(s) Supporting Document(s ) OVALOCYTES OCC [facility] ID Date Data Source [id number] 05/19/2019 03:33:00 PM EST [facility] Name Value Range Interpretation Description Data Sup porting Code Source(s) Document(s ) POIKILOCYTOSIS 1+ [facility] ID Date Data Source [id number] 05/19/2019 03:33:00 PM [facility] Name Value Range Interpretation Description Data Sup porting Code Source(s) Document(s ) Basophils 0.03 [place] [#/volume] in 10*3/uL Hospital Blood by Manual count ID Date Data Source [id number] 05/19/2019 03:33:00 PM [facility] Name Value Range Interpretation Description Data Sup porting Code Source(s) Document(s ) Eosinophils 0.03 [place] [#/volume] in 10*3/uL Hospital Blood by Manual count ID Date Data Source [id number] 05/19/2019 03:33:00 PM EST [facility] Name Value Range Interpretation Description Data Sup porting Code Source(s) Document(s ) Monocytes 0.33 [place] [#/volume] in 10*3/uL Hospital Blood by Manual count ID Date Data Source [id number] 05/19/2019 03:33:00 PM EST [facility] Name Value Range Interpretation Description Data Sup porting Code Source(s) Document(s ) Lymphocytes 0.43 [place] [#/volume] in 10*3/uL Hospital Blood by Manual count ID Date Data Source [id number] 05/19/2019 03:33:00 PM EST [facility] Value Range Interpretation Description Data Sup porting Code Source(s) Document(s ) Neutrophils 2.51 [place] [#/volume] in 10*3/uL Hospital Blood by Manual count ID Date Data Source [id number] 05/19/2019 03:33:00 PM EST [facility] Name Value Range Interpretation Description Data Sup porting Code Source(s) Document(s ) Basophils/100 1 % [place] leukocytes in Hospital Blood by Manual count ID Date Data Source [id number] 05/19/2019 03:33:00 PM EST [facility] Name Value Range Interpretation Description Data Sup porting Code Source(s) Document(s ) Eosinophils/100 1 % [place] leukocytes in Hospital Blood by Manual count ID Date Data Source [id number] 05/19/2019 03:33:00 PM EST [facility] Value Range Interpretation Description Data Sup porting Code Source(s) Document(s ) Monocytes/100 10 % [place] leukocytes in Hospital Blood by Manual count ID Date Data Source [id number] 05/19/2019 03:33:00 PM EST [facility] Name Value Range Interpretation Description Data Sup porting Code Source(s) Document(s ) Lymphocytes/100 13 % [place] leukocytes in Hospital Blood by Manual count ID Date Data Source [id number] 05/19/2019 03:33:00 PM EST [facility] [facility] Name Value Range Interpretation Description Data Sup porting Code Source(s) Document(s ) Neutrophils/100 76 % [place] [facility] in [facility] Blood by Manual count ID Date Data Source [id number] 05/19/2019 03:33:00 PM EST [facility] Name Value Range Interpretation Code Description Data Bryanna rce(s) Supporting Document(s ) Cells 100 [facility] Total [#] in Blood ID Date Data Source [id number] 05/19/2019 03:33:00 PM EST [facility] Name Value Range Interpretation Code Description Data Supporting Source(s) Document(s ) PLATELET NORMAL [facility] Hospital ID Date Data Source [id number] 05/19/2019 03:33:00 PM EST [facility] Name Value Range Interpretation Code Description Data Bryanna rce(s) Supporting Document(s ) BINTA CELLS 1+ [facility] ID Date Data Source [id number] 05/19/2019 03:33:00 PM EST [facility] Name Value Range Interpretation Code Description Data Bryanna rce(s) Supporting Document(s ) TARGET CELLS [facility] Hospital ID Date Data Source [id number] 05/19/2019 03:33:00 PM EST [facility] Name Value Range Interpretation Code Description Data Bryanna rce(s) Supporting Document(s ) OVALOCYTES OCC [facility] ID Date Data Source [id number] 05/19/2019 03:33:00 PM [facility] Name Value Range Interpretation Description Data Sup porting Code Source(s) Document(s ) POIKILOCYTOSIS 1+ [facility] ID Date Data Source [id number] 05/19/2019 03:33:00 PM [facility] Name Value Range Interpretation Description Data Sup porting Code Source(s) Document(s ) Basophils 0.03 [place] [#/volume] in 10*3/uL Hospital Blood by Manual count ID Date Data Source [id number] 05/19/2019 03:33:00 PM [facility] Name Value Range Interpretation Description Data Sup porting Code Source(s) Document(s ) Eosinophils 0.03 [place] [#/volume] in 10*3/uL Hospital Blood by Manual count ID Date Data Source [id number] 05/19/2019 03:33:00 PM [facility] Name Value Range Interpretation Description Data Sup porting Code Source(s) Document(s ) Monocytes 0.33 [place] [#/volume] in 10*3/uL Hospital Blood by Manual count ID Date Data Source [id number] 05/19/2019 03:33:00 PM [facility] Value Range Interpretation Description Data Sup porting Code Source(s) Document(s ) Lymphocytes 0.43 [place] [#/volume] in 10*3/uL Hospital Blood by Manual count ID Date Data Source [id number] 05/19/2019 03:33:00 PM [facility] Name Value Range Interpretation Description Data Sup porting Code Source(s) Document(s ) Neutrophils 2.51 [place] [#/volume] in 10*3/uL Hospital Blood by Manual count ID Date Data Source [id number] 05/19/2019 03:33:00 PM EST [facility] Name Value Range Interpretation Description Data Sup porting Code Source(s) Document(s ) Basophils/100 1 % [place] [facility] in [facility] Blood by Manual count ID Date Data Source [id number] 05/19/2019 03:33:00 PM [facility] Name Value Range Interpretation Description Data Sup porting Code Source(s) Document(s ) Eosinophils/100 1 % [place] [facility] in [facility] Blood by Manual count ID Date Data Source [id number] 05/19/2019 03:33:00 PM EST [facility] Name Value Range Interpretation Description Data Sup porting Code Source(s) Document(s ) Monocytes/100 10 % [place] [facility] in [facility] Blood by Manual count ID Date Data Source [id number] 05/19/2019 03:33:00 PM EST [facility] Name Value Range Interpretation Description Data Sup porting Code Source(s) Document(s ) Lymphocytes/100 13 % [place] [facility] in [facility] Blood by Manual count ID Date Data Source [id number] 05/19/2019 03:33:00 PM [facility] Name Value Range Interpretation Description Data Sup porting Code Source(s) Document(s ) Neutrophils/100 76 % [place] [facility] in [facility] Blood by Manual count ID Date Data Source [id number] 05/18/2019 10:05:00 AM [facility] Informatics Analyst:THONG GLASS Name Value Range Interpretation Description Data Sup porting Code Source(s) Document(s ) Glucose 291 mg/dL [place] [Mass/volume] [facility] in Capillary blood by Glucometer ID Date Data Source [id number] 05/18/2019 08:04:00 AM [facility] Name Value Range Interpretation Description Data Sup porting Code Source(s) Document(s ) GLUCOSE Pre Meal [facility] Hospital ID Date Data Source [id number] 05/18/2019 02:12:00 AM EST [facility] Name Value Range Interpretation Description Data Sup porting Code Source(s) Document(s ) Lactate 1.4 [place] [Moles/volum mmol/L Hospital e] in Serum or Plasma ID Date Data Source [id number] 05/18/2019 02:12:00 AM EST [facility] Name Value Range Interpretation Description Data Sup porting Code Source(s) Document(s ) Lactate 1.4 [place] [Moles/volum mmol/L Hospital e] in Serum or Plasma ID Date Data Source [id number] 05/18/2019 02:12:00 AM [facility] Hospital Name Value Range Interpretation Description Data Sup porting Code Source(s) Document(s ) Calcium 8.5 mg/dL [place] [Mass/volume Hospital ] in Serum or Plasma ID Date Data Source [id number] 05/18/2019 02:12:00 AM [facility] Hospital Name Value Range Interpretation Code Description Data Bryanna rce(s) Supporting Document(s ) Urea 8.0 [place] nitrogen/Cre Hospital atinine [Mass Ratio] in Serum or Plasma ID Date Data Source [id number] 05/18/2019 02:12:00 AM [facility] Hospital Name Value Range Interpretation Description Data Sup porting Code Source(s) Document(s ) Creatinine 1.0 mg/dL [place] [Mass/volume] Hospital in Serum or Plasma ID Date Data Source [id number] 05/18/2019 02:12:00 AM [facility] Hospital Name Value Range Interpretation Description Data Sup porting Code Source(s) Document(s ) Urea nitrogen 8 mg/dL [place] [Mass/volume] Hospital in Serum or Plasma ID Date Data Source [id number] 05/18/2019 02:12:00 AM [facility] Name Value Range Interpretation Code Description Data Bryanna rce(s) Supporting Document(s ) Anion gap in 16 [place] Serum or Hospital Plasma ID Date Data Source [id number] 05/18/2019 02:12:00 AM [facility] Name Value Range Interpretation Description Data Sup porting Code Source(s) Document(s ) Carbon 26 mmol/L [place] dioxide, Hospital total [Moles/volu me] in Serum or Plasma ID Date Data Source [id number] 05/18/2019 02:12:00 AM [facility] Name Value Range Interpretation Description Data Sup porting Code Source(s) Document(s ) Chloride 95 mmol/L [place] [Moles/volum Hospital e] in Serum or Plasma ID Date Data Source [id number] 05/18/2019 02:12:00 AM [facility] Name Value Range Interpretation Description Data Sup porting Code Source(s) Document(s ) Potassium 3.8 [place] [Moles/volume mmol/L Hospital ] in Serum or Plasma ID Date Data Source [id number] 05/18/2019 02:12:00 AM [facility] Name Value Range Interpretation Description Data Sup porting Code Source(s) Document(s ) Sodium 133 mmol/L [place] [Moles/volu Hospital me] in Serum or Plasma ID Date Data Source [id number] 05/18/2019 02:12:00 AM [facility] NOTIFICATION AND READ BACK OF CRITICAL R ESULTS TO AMMON GREENWOOD RN AC AT 0506 ON 05/18/19 BY Danial Truong.PLEASE NOTE MARTINEZ GE IN CRITICAL GLUCOSE VALUES EFFECTIVE 04/22/17.REPORTED CRITICAL VALUES SHOULD B E INTERPRETED WITHIN CLINICAL CONTEXT. Name Value Range Interpretation Description Data Sup porting Code Source(s) Document(s ) Glucose 445 mg/dL [place] [Mass/volume Hospital ] in Serum or Plasma ID Date Data Source [id number] 05/17/2019 11:50:00 PM [facility] CUT-OFF >= 25 NG/ML.THE FINDINGS OF [...] rce(s) Supporting Document(s ) PCP (UR) NEGATIVE [facility] ID Date Data Source [id number] 05/17/2019 11:50:00 PM [facility] CUT-OFF >= 50 NG/ML. Name Value Range Interpretation Code Description Data Bryanna rce(s) Supporting Document(s ) THC (UR) NEGATIVE [facility] ID Date Data Source [id number] 05/17/2019 11:50:00 PM [facility] CUT-OFF >= 300 NG/ML. Name Value Range Interpretation Description Data Sup porting Code Source(s) Document(s ) OPIATES (UR) NEGATIVE [facility] ID Date Data Source [id number] 05/17/2019 11:50:00 PM [facility] CUT-OFF >= 300 NG/ML. Name Value Range Interpretation Description Data Sup porting Code Source(s) Document(s ) COCAINE (UR) NEGATIVE [facility] ID Date Data Source [id number] 05/17/2019 11:50:00 PM [facility] CUT-OFF >= 200 NG/ML. Name Value Range Interpretation Description Data Sup porting Code Source(s) Document(s ) BENZODIAZEPINES NEGATIVE [place] (UR) [facility] ID Date Data Source [id number] 05/17/2019 11:50:00 PM [facility] CUT-OFF >= 200 NG/ML. Name Value Range Interpretation Description Data Sup porting Code Source(s) Document(s ) BARBITURATES NEGATIVE [place] (UR) Hospital ID Date Data Source [id number] 05/17/2019 11:50:00 PM [facility] CUT-OFF >= 1000 NG/ML. Name Value Range Interpretation Description Data Sup porting Code Source(s) Document(s ) AMPHETAMINES NEGATIVE [place] (UR) Hospital ID Date Data Source [id number] 05/17/2019 11:50:00 PM [facility] Name Value Range Interpretation Description Data Sup porting Code Source(s) Document(s ) Epithelial OCCASIONAL [place] cells.[facility] s [#/area] in Urine sediment by Microscopy high power field ID Date Data Source [id number] 05/17/2019 11:50:00 PM [facility] Name Value Range Interpretation Description Data Sup porting Code Source(s) Document(s ) Erythrocytes NEGATIVE [place] [#/area] in /[HPF] [facility] Urine sediment Hospital by Microscopy high power field ID Date Data Source [id number] 05/17/2019 11:50:00 PM [facility] Name Value Range Interpretation Description Data Sup porting Code Source(s) Document(s ) Leukocytes NEGATIVE [place] [#/area] in /[HPF] Hospital Urine sediment by Microscopy high power field ID Date Data Source [id number] 05/17/2019 11:50:00 PM [facility] Name Value Range Interpretation Description Data Sup porting Code Source(s) Document(s ) Leukocyte NEGATIVE [place] esterase Hospital [Presence] in Urine by Test strip ID Date Data Source [id number] 05/17/2019 11:50:00 PM [facility] Name Value Range Interpretation Description Data Sup porting Code Source(s) Document(s ) URINE NEGATIVE [place] NITRITES Hospital ID Date Data Source [id number] 05/17/2019 11:50:00 PM EST [facility] Name Value Range Interpretation Description Data Sup porting Code Source(s) Document(s ) Erythrocytes NEGATIVE [place] [#/volume] in Hospital Urine by Test strip ID Date Data Source [id number] 05/17/2019 11:50:00 PM EST [facility] Name Value Range Interpretation Code Description Data Bryanna rce(s) Supporting Document(s ) Bilirubin. NEGATIVE [place] total Hospital [Presence] in Urine by Test strip ID Date Data Source [id number] 05/17/2019 11:50:00 PM [facility] Value Range Interpretation Description Data Sup porting Code Source(s) Document(s ) Urobilinogen 0.2 [place] [Units/volume] mg/dL Hospital in Urine by Test strip ID Date Data Source [id number] 05/17/2019 11:50:00 PM EST [facility] Name Value Range Interpretation Code Description Data Bryanna rce(s) Supporting Document(s ) Ketones 2+ [place] [Mass/volume Hospital ] in Urine by Test strip ID Date Data Source [id number] 05/17/2019 11:50:00 PM EST [facility] Name Value Range Interpretation Code Description Data Bryanna rce(s) Supporting Document(s ) Glucose 3+ [place] [Mass/volume Hospital ] in Urine by Test strip ID Date Data Source [id number] 05/17/2019 11:50:00 PM EST [facility] Name Value Range Interpretation Code Description Data Bryanna rce(s) Supporting Document(s ) Protein TRACE [place] [Presence] Hospital in Urine by Test strip ID Date Data Source [id number] 05/17/2019 11:50:00 PM EST [facility] Name Value Range Interpretation Code Description Data Bryanna rce(s) Supporting Document(s ) pH of Urine 6.0 [place] by Test Hospital strip ID Date Data Source [id number] 05/17/2019 11:50:00 PM [facility] Name Value Range Interpretation Code Description Data Supporting Source(s) Document(s ) Specific 1.041 [place] gravity of Hospital Urine by Test strip ID Date Data Source [id number] 05/17/2019 11:50:00 PM [facility] Name Value Range Interpretation Description Data Sup porting Code Source(s) Document(s ) Clarity in Urine CLOUDY [place] by Refractometry [facility] automated ID Date Data Source [id number] 05/17/2019 11:50:00 PM [facility] Name Value Range Interpretation Code Description Data Bryanna rce(s) Supporting Document(s ) Color of YELLOW [place] Urine Hospital ID Date Data Source [id number] 05/17/2019 11:50:00 PM [facility] CUT-OFF >= 25 NG/ML.THE FINDINGS OF [...] rce(s) Supporting Document(s ) PCP (UR) NEGATIVE [facility] ID Date Data Source [id number] 05/17/2019 11:50:00 PM [facility] CUT-OFF >= 50 NG/ML. Name Value Range Interpretation Code Description Data Bryanna rce(s) Supporting Document(s ) THC (UR) NEGATIVE [facility] ID Date Data Source [id number] 05/17/2019 11:50:00 PM EST [facility] CUT-OFF >= 300 NG/ML. Name Value Range Interpretation Description Data Sup porting Code Source(s) Document(s ) OPIATES (UR) NEGATIVE [facility] ID Date Data Source [id number] 05/17/2019 11:50:00 PM EST [facility] CUT-OFF >= 300 NG/ML. Name Value Range Interpretation Description Data Sup porting Code Source(s) Document(s ) COCAINE (UR) NEGATIVE [facility] ID Date Data Source [id number] 05/17/2019 11:50:00 PM [facility] CUT-OFF >= 200 NG/ML. Name Value Range Interpretation Description Data Sup porting Code Source(s) Document(s ) BENZODIAZEPINES NEGATIVE [place] (UR) [facility] ID Date Data Source [id number] 05/17/2019 11:50:00 PM [facility] CUT-OFF >= 200 NG/ML. Name Value Range Interpretation Description Data Sup porting Code Source(s) Document(s ) BARBITURATES NEGATIVE [place] (UR) Hospital ID Date Data Source [id number] 05/17/2019 11:50:00 PM [facility] CUT-OFF >= 1000 NG/ML. Name Value Range Interpretation Description Data Sup porting Code Source(s) Document(s ) AMPHETAMINES NEGATIVE [place] (UR) Hospital ID Date Data Source [id number] 05/17/2019 11:50:00 PM [facility] Name Value Range Interpretation Description Data Sup porting Code Source(s) Document(s ) Epithelial OCCASIONAL [place] cells.[facility] s [#/area] in Urine sediment by Microscopy high power field ID Date Data Source [id number] 05/17/2019 11:50:00 PM [facility] Name Value Range Interpretation Description Data Sup porting Code Source(s) Document(s ) Erythrocytes NEGATIVE [place] [#/area] in /[HPF] [facility] Urine sediment Hospital by Microscopy high power field ID Date Data Source [id number] 05/17/2019 11:50:00 PM [facility] Value Range Interpretation Description Data Sup porting Code Source(s) Document(s ) Leukocytes NEGATIVE [place] [#/area] in /[HPF] Hospital Urine sediment by Microscopy high power field ID Date Data Source [id number] 05/17/2019 11:50:00 PM [facility] Value Range Interpretation Description Data Sup porting Code Source(s) Document(s ) Leukocyte NEGATIVE [place] esterase Hospital [Presence] in Urine by Test strip ID Date Data Source [id number] 05/17/2019 11:50:00 PM [facility] Value Range Interpretation Description Data Sup porting Code Source(s) Document(s ) URINE NEGATIVE [place] NITRITES [facility] ID Date Data Source [id number] 05/17/2019 11:50:00 PM [facility] Value Range Interpretation Description Data Sup porting Code Source(s) Document(s ) Erythrocytes NEGATIVE [place] [#/volume] in Hospital Urine by Test strip ID Date Data Source [id number] 05/17/2019 11:50:00 PM [facility] Value Range Interpretation Code Description Data Bryanna rce(s) Supporting Document(s ) Bilirubin. NEGATIVE [place] total [facility] [Presence] in Urine by Test strip ID Date Data Source [id number] 05/17/2019 11:50:00 PM [facility] Value Range Interpretation Description Data Sup porting Code Source(s) Document(s ) Urobilinogen 0.2 [place] [Units/volume] mg/dL Hospital in Urine by Test strip ID Date Data Source [id number] 05/17/2019 11:50:00 PM EST [facility] Name Value Range Interpretation Code Description Data Bryanna rce(s) Supporting Document(s ) Ketones 2+ [place] [Mass/volume Hospital ] in Urine by Test strip ID Date Data Source [id number] 05/17/2019 11:50:00 PM EST [facility] Name Value Range Interpretation Code Description Data Bryanna rce(s) Supporting Document(s ) Glucose 3+ [place] [Mass/volume Hospital ] in Urine by Test strip ID Date Data Source [id number] 05/17/2019 11:50:00 PM EST [facility] Name Value Range Interpretation Code Description Data Bryanna rce(s) Supporting Document(s ) Protein TRACE [place] [Presence] [facility] in Urine by Test strip ID Date Data Source [id number] 05/17/2019 11:50:00 PM EST [facility] Name Value Range Interpretation Code Description Data Bryanna rce(s) Supporting Document(s ) pH of Urine 6.0 [place] by Test Hospital strip ID Date Data Source [id number] 05/17/2019 11:50:00 PM EST [facility] Name Value Range Interpretation Code Description Data Supporting Source(s) Document(s ) Specific 1.041 [place] gravity of Hospital Urine by Test strip ID Date Data Source [id number] 05/17/2019 11:50:00 PM EST [facility] Name Value Range Interpretation Description Data Sup porting Code Source(s) Document(s ) Clarity in Urine CLOUDY [place] by Refractometry [facility] automated ID Date Data Source [id number] 05/17/2019 11:50:00 PM [facility] Name Value Range Interpretation Code Description Data Bryanna rce(s) Supporting Document(s ) Color of YELLOW [place] Urine Hospital ID Date Data Source [id number] 05/17/2019 08:37:00 PM [facility] REFERENCE RANGES: NONE DETECTED <20 MG/DL NONE TO MILD EUPHORIA 20-49 MG/DL MILD EUPHORIA 50-99 MG/DL MODERATE EUPHORIA 100-149 MG/DL INTOXICATION 150-300 MG/DL Name Value Range Interpretation Description Data Sup porting Code Source(s) Document(s ) Ethanol < 20 [place] [Mass/volume mg/dL Hospital ] in Serum or Plasma ID Date Data Source [id number] 05/17/2019 08:37:00 PM [facility] TEST RESULT IS A TOTAL TRICYCLIC [...] Code Source(s) Document(s ) TRICYCLIC < 80 [place] ANTIDEPRESSANT ng/mL Hospital ID Date Data Source [id number] 05/17/2019 08:37:00 PM [facility] REFERENCE RANGES: ANALGESIC: 0.0 - 10.0 MG/DL. ARTHRITIC THERAPY: 15.0 - 30.0 MG/DL. Name Value Range Interpretation Description Data Sup porting Code Source(s) Document(s ) Salicylates < 3.0 [place] [Mass/volume] mg/dL Hospital in Serum or Plasma ID Date Data Source [id number] 05/17/2019 08:37:00 PM [facility] THERAPEUTIC RANGE: 10.0-30.0 UG/MLTOXIC RANGE: 4 HRS AFTER INGESTION >150 UG/ML 12 HRS AFTER INGESTION >35 UG/ML Name Value Range Interpretation Description Data Sup porting Code Source(s) Document(s ) ACETAMINOPHEN < 10.0 [place] ug/mL Hospital ID Date Data Source [id number] 05/17/2019 08:37:00 PM [facility] Name Value Range Interpretation Description Data Sup porting Code Source(s) Document(s ) OSMOLALITY 309 [place] (SERUM) mosm/kg Hospital ID Date Data Source [id number] 05/17/2019 08:37:00 PM [facility] REFERENCE RANGES: NONE DETECTED <20 MG/DL NONE TO MILD EUPHORIA 20-49 MG/DL MILD EUPHORIA 50-99 MG/DL MODERATE EUPHORIA 100-149 MG/DL INTOXICATION 150-300 MG/DL Name Value Range Interpretation Description Data Sup porting Code Source(s) Document(s ) Ethanol < 20 [place] [Mass/volume mg/dL [facility] ] in Serum or Plasma ID Date Data Source [id number] 05/17/2019 08:37:00 PM [facility] TEST RESULT IS A TOTAL TRICYCLIC [...] Code Source(s) Document(s ) TRICYCLIC < 80 [place] ANTIDEPRESSANT ng/mL Hospital ID Date Data Source [id number] 05/17/2019 08:37:00 PM [facility] REFERENCE RANGES: ANALGESIC: 0.0 - 10.0 MG/DL. ARTHRITIC THERAPY: 15.0 - 30.0 MG/DL. Name Value Range Interpretation Description Data Sup porting Code Source(s) Document(s ) Salicylates < 3.0 [place] [Mass/volume] mg/dL Hospital in Serum or Plasma ID Date Data Source [id number] 05/17/2019 08:37:00 PM [facility] THERAPEUTIC RANGE: 10.0-30.0 UG/MLTOXIC RANGE: 4 HRS AFTER INGESTION >150 UG/ML 12 HRS AFTER INGESTION >35 UG/ML Name Value Range Interpretation Description Data Sup porting Code Source(s) Document(s ) ACETAMINOPHEN < 10.0 [place] ug/mL Hospital ID Date Data Source [id number] 05/17/2019 08:37:00 PM [facility] ADA RECOMMENDATIONS: NON-DIABETES: 4.0-6.0% CONTROLLED DIABETES: 6.0-8.0% UNCONTROLLED DIABETE S: UP TO 20%RECOMMENDED ADA RESULT FOR THERAPY: HEMOGLOBIN A1C RESULT LESS GM N 7%.NOTE: METHOD CHANGE EFFECTIVE 11/11/14. Name Value Range Interpretation Description Data Sup porting Code Source(s) Document(s ) Hemoglobin 10.4 % [place] A1c/Hemoglobin [facility] .total in Blood ID Date Data Source [id number] 05/17/2019 08:37:00 PM [facility] Name Value Range Interpretation Description Data Sup porting Code Source(s) Document(s ) OSMOLALITY 309 [place] (SERUM) mosm/kg Hospital ID Date Data Source [id number] 05/17/2019 08:37:00 PM [facility] Name Value Range Interpretation Description Data Sup porting Code Source(s) Document(s ) Aspartate 37 U/L White aminotransferase [facility] [Enzymatic Hospital activity/volume] in Serum or Plasma ID Date Data Source [id number] 05/17/2019 08:37:00 PM [facility] Name Value Range Interpretation Description Data Sup porting Code Source(s) Document(s ) Alanine 22 U/L [facility] [Enzymatic Hospital activity/volume] in Serum or Plasma ID Date Data Source [id number] 05/17/2019 08:37:00 PM EST [facility] Name Value Range Interpretation Description Data Sup porting Code Source(s) Document(s ) Alkaline 87 U/L [place] phosphatase Hospital [Enzymatic activity/volume ] in Serum or Plasma ID Date Data Source [id number] 05/17/2019 08:37:00 PM EST [facility] Name Value Range Interpretation Description Data Sup porting Code Source(s) Document(s ) Bilirubin.t 1.4 mg/dL [facility] [Mass/volum e] in Serum or Plasma ID Date Data Source [id number] 05/17/2019 08:37:00 PM EST [facility] Name Value Range Interpretation Code Description Data Bryanna rce(s) Supporting Document(s ) Albumin/Glob 1.4 [place] ulin [Mass Hospital Ratio] in Serum or Plasma ID Date Data Source [id number] 05/17/2019 08:37:00 PM [facility] Hospital Name Value Range Interpretation Description Data Sup porting Code Source(s) Document(s ) Albumin 3.8 g/dL [place] [Mass/volume Hospital ] in Serum or Plasma ID Date Data Source [id number] 05/17/2019 08:37:00 PM EST [facility] Name Value Range Interpretation Description Data Sup porting Code Source(s) Document(s ) Protein 6.6 g/dL [place] [Mass/volume Hospital ] in Serum or Plasma ID Date Data Source [id number] 05/17/2019 08:37:00 PM EST [facility] Name Value Range Interpretation Description Data Sup porting Code Source(s) Document(s ) Leukocytes 3.1 [place] [#/volume] in 10*3/uL [facility] Blood by Automated count ID Date Data Source [id number] 05/17/2019 08:37:00 PM [facility] REFERENCE RANGES: NONE DETECTED <20 MG/DL NONE TO MILD EUPHORIA 20-49 MG/DL MILD EUPHORIA 50-99 MG/DL MODERATE EUPHORIA 100-149 MG/DL INTOXICATION 150-300 MG/DL Name Value Range Interpretation Description Data Sup porting Code Source(s) Document(s ) Ethanol < 20 [place] [Mass/volume mg/dL Hospital ] in Serum or Plasma ID Date Data Source [id number] 05/17/2019 08:37:00 PM [facility] TEST RESULT IS A TOTAL TRICYCLIC [...] Code Source(s) Document(s ) TRICYCLIC < 80 [place] ANTIDEPRESSANT ng/mL Hospital ID Date Data Source [id number] 05/17/2019 08:37:00 PM [facility] REFERENCE RANGES: ANALGESIC: 0.0 - 10.0 MG/DL. ARTHRITIC THERAPY: 15.0 - 30.0 MG/DL. Name Value Range Interpretation Description Data Sup porting Code Source(s) Document(s ) Salicylates < 3.0 [place] [Mass/volume] mg/dL Hospital in Serum or Plasma ID Date Data Source [id number] 05/17/2019 08:37:00 PM [facility] THERAPEUTIC RANGE: 10.0-30.0 UG/MLTOXIC RANGE: 4 HRS AFTER INGESTION >150 UG/ML 12 HRS AFTER INGESTION >35 UG/ML Name Value Range Interpretation Description Data Sup porting Code Source(s) Document(s ) ACETAMINOPHEN < 10.0 [place] ug/mL Hospital ID Date Data Source [id number] 05/17/2019 08:37:00 PM [facility] ADA RECOMMENDATIONS: NON-DIABETES: 4.0-6.0% CONTROLLED DIABETES: 6.0-8.0% UNCONTROLLED DIABETE S: UP TO 20%RECOMMENDED ADA RESULT FOR THERAPY: HEMOGLOBIN A1C RESULT LESS GM N 7%.NOTE: METHOD CHANGE EFFECTIVE 11/11/14. Name Value Range Interpretation Description Data Sup porting Code Source(s) Document(s ) Hemoglobin 10.4 % [place] A1c/Hemoglobin Hospital .total in Blood ID Date Data Source [id number] 05/17/2019 08:37:00 PM [facility] TEST PERFORMED BY [facility]ENS[facility] CHEMILUMINESCENCE METHOD. Name Value Range Interpretation Description Data Sup porting Code Source(s) Document(s ) Troponin 0.05 [place] I.cardiac ng/mL Hospital [Mass/volume ] in Serum or Plasma ID Date Data Source [id number] 05/17/2019 08:37:00 PM [facility] Name Value Range Interpretation Description Data Sup porting Code Source(s) Document(s ) OSMOLALITY 309 [place] (SERUM) mosm/kg Hospital ID Date Data Source [id number] 05/17/2019 08:37:00 PM [facility] Name Value Range Interpretation Description Data Sup porting Code Source(s) Document(s ) Phosphate 2.2 mg/dL [place] [Mass/volume] Hospital in Serum or Plasma ID Date Data Source [id number] 05/17/2019 08:37:00 PM [facility] Name Value Range Interpretation Description Data Sup porting Code Source(s) Document(s ) Magnesium 1.3 mg/dL [place] [Mass/volume] Hospital in Serum or Plasma ID Date Data Source [id number] 05/17/2019 08:37:00 PM EST [facility] Name Value Range Interpretation Description Data Sup porting Code Source(s) Document(s ) Aspartate 37 U/L [facility] aminotransferase [facility] [Enzymatic Hospital activity/volume] in Serum or Plasma ID Date Data Source [id number] 05/17/2019 08:37:00 PM EST [facility] Name Value Range Interpretation Description Data Sup porting Code Source(s) Document(s ) Alanine 22 U/L White aminotransferase [facility] [Enzymatic Hospital activity/volume] in Serum or Plasma ID Date Data Source [id number] 05/17/2019 08:37:00 PM [facility] Name Value Range Interpretation Description Data Sup porting Code Source(s) Document(s ) Alkaline 87 U/L [place] phosphatase Hospital [Enzymatic activity/volume ] in Serum or Plasma ID Date Data Source [id number] 05/17/2019 08:37:00 PM [facility] Name Value Range Interpretation Description Data Sup porting Code Source(s) Document(s ) Bilirubin.t 1.4 mg/dL [facility] [Mass/volum e] in Serum or Plasma ID Date Data Source [id number] 05/17/2019 08:37:00 PM [facility] Name Value Range Interpretation Code Description Data Bryanna rce(s) Supporting Document(s ) Albumin/Glob 1.4 [place] ulin [Mass Hospital Ratio] in Serum or Plasma ID Date Data Source [id number] 05/17/2019 08:37:00 PM [facility] Name Value Range Interpretation Description Data Sup porting Code Source(s) Document(s ) Albumin 3.8 g/dL [place] [Mass/volume Hospital ] in Serum or Plasma ID Date Data Source [id number] 05/17/2019 08:37:00 PM EST [facility] Name Value Range Interpretation Description Data Sup porting Code Source(s) Document(s ) Protein 6.6 g/dL [place] [Mass/volume Hospital ] in Serum or Plasma ID Date Data Source [id number] 05/17/2019 08:37:00 PM [facility] Name Value Range Interpretation Code Description Data Supporting Source(s) Document(s ) NUCLEATED RBCS 0.0 % [place] (AUTO Hospital DIFF%)DIS ID Date Data Source [id number] 05/17/2019 08:37:00 PM [facility] Value Range Interpretation Description Data Sup porting Code Source(s) Document(s ) Differential AUTOMATED [place] cell count Hospital method - Blood ID Date Data Source [id number] 05/17/2019 08:37:00 PM [facility] Name Value Range Interpretation Description Data Sup porting Code Source(s) Document(s ) Immature 0.00 [place] granulocytes 10*3/uL Hospital [#/volume] in Blood by Automated count ID Date Data Source [id number] 05/17/2019 08:37:00 PM [facility] Name Value Range Interpretation Description Data Sup porting Code Source(s) Document(s ) Basophils 0.04 [place] [#/volume] in 10*3/uL Hospital Blood by Automated count ID Date Data Source [id number] 05/17/2019 08:37:00 PM EST [place] [facility] Name Value Range Interpretation Description Data Sup porting Code Source(s) Document(s ) Eosinophils 0.05 [place] [#/volume] in 10*3/uL Hospital Blood by Automated count ID Date Data Source [id number] 05/17/2019 08:37:00 PM [facility] Name Value Range Interpretation Description Data Sup porting Code Source(s) Document(s ) Monocytes 0.46 [place] [#/volume] in 10*3/uL Hospital Blood by Automated count ID Date Data Source [id number] 05/17/2019 08:37:00 PM EST [facility] Value Range Interpretation Description Data Sup porting Code Source(s) Document(s ) Lymphocytes 1.38 [place] [#/volume] in 10*3/uL Hospital Blood by Automated count ID Date Data Source [id number] 05/17/2019 08:37:00 PM [facility] Value Range Interpretation Description Data Sup porting Code Source(s) Document(s ) Neutrophils 1.12 [place] [#/volume] in 10*3/uL [facility] Blood by Automated count ID Date Data Source [id number] 05/17/2019 08:37:00 PM [facility] Value Range Interpretation Description Data Sup porting Code Source(s) Document(s ) Nucleated 0.0 % [place] erythrocytes/10 Hospital 0 leukocytes [Ratio] in Blood by Automated count ID Date Data Source [id number] 05/17/2019 08:37:00 PM [facility] Value Range Interpretation Description Data Sup porting Code Source(s) Document(s ) Immature 0.0 % [place] granulocytes/10 Hospital 0 leukocytes in Blood by Automated count ID Date Data Source [id number] 05/17/2019 08:37:00 PM [facility] Value Range Interpretation Description Data Sup porting Code Source(s) Document(s ) Basophils/100 1.3 % [place] leukocytes in Hospital Blood by Automated count ID Date Data Source [id number] 05/17/2019 08:37:00 PM [facility] Value Range Interpretation Description Data Sup porting Code Source(s) Document(s ) Eosinophils/100 1.6 % [place] leukocytes in Hospital Blood by Automated count ID Date Data Source [id number] 05/17/2019 08:37:00 PM EST [facility] Name Value Range Interpretation Description Data Sup porting Code Source(s) Document(s ) Monocytes/100 15.1 % [place] leukocytes in Hospital Blood by Automated count ID Date Data Source [id number] 05/17/2019 08:37:00 PM EST [facility] Name Value Range Interpretation Description Data Sup porting Code Source(s) Document(s ) Lymphocytes/10 45.2 % [place] 0 leukocytes Hospital in Blood by Automated count ID Date Data Source [id number] 05/17/2019 08:37:00 PM EST [facility] Value Range Interpretation Description Data Sup porting Code Source(s) Document(s ) Neutrophils/10 36.8 % [place] 0 leukocytes Hospital in Blood by Automated count ID Date Data Source [id number] 05/17/2019 08:37:00 PM EST [facility] Name Value Range Interpretation Description Data Sup porting Code Source(s) Document(s ) Platelet mean 12.8 fL [place] volume Hospital [Entitic volume] in Blood by Automated count ID Date Data Source [id number] 05/17/2019 08:37:00 PM EST [facility] Name Value Range Interpretation Description Data Sup porting Code Source(s) Document(s ) Platelets 175 [place] [#/volume] in 10*3/uL Hospital Blood by Automated count ID Date Data Source [id number] 05/17/2019 08:37:00 PM EST [facility] Value Range Interpretation Description Data Sup porting Code Source(s) Document(s ) Erythrocyte 12.8 % [place] distribution Hospital width [Ratio] by Automated count ID Date Data Source [id number] 05/17/2019 08:37:00 PM [facility] Name Value Range Interpretation Description Data Sup porting Code Source(s) Document(s ) Erythrocyte mean 34.6 [place] corpuscular g/dL Hospital hemoglobin concentration [Mass/volume] by Automated count ID Date Data Source [id number] 05/17/2019 08:37:00 PM [facility] Value Range Interpretation Description Data Sup porting Code Source(s) Document(s ) Erythrocyte 28.4 pg [facility] corpuscular hemoglobin [Entitic mass] by Automated count ID Date Data Source [id number] 05/17/2019 08:37:00 PM [facility] Value Range Interpretation Description Data Sup porting Code Source(s) Document(s ) Erythrocyte 82.3 fL [facility] corpuscular volume [Entitic volume] by Automated count ID Date Data Source [id number] 05/17/2019 08:37:00 PM [facility] Value Range Interpretation Description Data Sup porting Code Source(s) Document(s ) Hematocrit 37.6 % [place] [Volume Hospital Fraction] of Blood by Automated count ID Date Data Source [id number] 05/17/2019 08:37:00 PM [facility] Value Range Interpretation Description Data Sup porting Code Source(s) Document(s ) Hemoglobin 13.0 g/dL [place] [Mass/volume] Hospital in Blood ID Date Data Source [id number] 05/17/2019 08:37:00 PM [facility] Value Range Interpretation Description Data Sup porting Code Source(s) Document(s ) Erythrocytes 4.57 [place] [#/volume] in 10*6/uL Hospital Blood by Automated count ID Date Data Source [id number] 04/29/2019 03:58:00 PM [facility] Name Value Range Interpretation Description Data Sup porting Code Source(s) Document(s ) GLUCOSE RN Notified [facility] ID Date Data Source [id number] 04/29/2019 03:58:00 PM [facility] Informatics Analyst:BILL MORLEY Name Value Range Interpretation Description Data Sup porting Code Source(s) Document(s ) Glucose 106 mg/dL [place] [Mass/volume] [facility] in Capillary blood by Glucometer ID Date Data Source [id number] 04/29/2019 12:14:00 PM [facility] Name Value Range Interpretation Description Data Sup porting Code Source(s) Document(s ) Calcium 9.6 mg/dL [place] [Mass/volume Hospital ] in Serum or Plasma ID Date Data Source [id number] 04/29/2019 12:14:00 PM [facility] Name Value Range Interpretation Code Description Data Bryanna rce(s) Supporting Document(s ) Urea 23.8 [place] nitrogen/Cre Hospital atinine [Mass Ratio] in Serum or Plasma ID Date Data Source [id number] 04/29/2019 12:14:00 PM [facility] Name Value Range Interpretation Description Data Sup porting Code Source(s) Document(s ) Creatinine 0.8 mg/dL [place] [Mass/volume] Hospital in Serum or Plasma ID Date Data Source [id number] 04/29/2019 12:14:00 PM [facility] Name Value Range Interpretation Description Data Sup porting Code Source(s) Document(s ) Urea 19 mg/dL [place] nitrogen Hospital [Mass/volume ] in Serum or Plasma ID Date Data Source [id number] 04/29/2019 12:14:00 PM EST [facility] Name Value Range Interpretation Code Description Data Bryanna rce(s) Supporting Document(s ) Anion gap in 8 [place] Serum or [facility] Plasma ID Date Data Source [id number] 04/29/2019 12:14:00 PM [facility] Name Value Range Interpretation Description Data Sup porting Code Source(s) Document(s ) Carbon 31 mmol/L [place] dioxide, Hospital total [Moles/volu me] in Serum or Plasma ID Date Data Source [id number] 04/29/2019 12:14:00 PM [facility] Name Value Range Interpretation Description Data Sup porting Code Source(s) Document(s ) Chloride 105 [place] [Moles/volum mmol/L Hospital e] in Serum or Plasma ID Date Data Source [id number] 04/29/2019 12:14:00 PM [facility] MODERATE HEMOLYSIS Name Value Range Interpretation Description Data Sup porting Code Source(s) Document(s ) Potassium 4.2 [place] [Moles/volume mmol/L Hospital ] in Serum or Plasma ID Date Data Source [id number] 04/29/2019 12:14:00 PM [facility] Name Value Range Interpretation Description Data Sup porting Code Source(s) Document(s ) Sodium 140 mmol/L [place] [Moles/volu Hospital me] in Serum or Plasma ID Date Data Source [id number] 04/29/2019 12:14:00 PM [facility] NOTIFICATION AND READ BACK OF CRITICAL R ESULTS TO KIMBERLEY BOO RN-AC AT 1318 ON 04/29/19 BY Gena Keene.PLEASE NOTE FIDEL NGE IN CRITICAL GLUCOSE VALUES EFFECTIVE 04/22/17.REPORTED CRITICAL VALUES SHOULD B E INTERPRETED WITHIN CLINICAL CONTEXT. Name Value Range Interpretation Description Data Sup porting Code Source(s) Document(s ) Glucose 46 mg/dL [place] [Mass/volume Hospital ] in Serum or Plasma ID Date Data Source [id number] 04/29/2019 12:14:00 PM [facility] Value Range Interpretation Description Data Sup porting Code Source(s) Document(s ) Platelet mean 12.2 fL [place] volume Hospital [Entitic volume] in Blood by Automated count ID Date Data Source [id number] 04/29/2019 12:14:00 PM [facility] Value Range Interpretation Description Data Sup porting Code Source(s) Document(s ) Platelets 173 [place] [#/volume] in 10*3/uL Hospital Blood by Automated count ID Date Data Source [id number] 04/29/2019 12:14:00 PM [facility] Value Range Interpretation Description Data Sup porting Code Source(s) Document(s ) Erythrocyte 14.0 % [facility] Hospital width [Ratio] by Automated count ID Date Data Source [id number] 04/29/2019 12:14:00 PM [facility] Value Range Interpretation Description Data Sup porting Code Source(s) Document(s ) Erythrocyte mean 33.1 [place] corpuscular g/dL Hospital hemoglobin concentration [Mass/volume] by Automated count ID Date Data Source [id number] 04/29/2019 12:14:00 PM [facility] Value Range Interpretation Description Data Sup porting Code Source(s) Document(s ) Erythrocyte 29.1 pg [facility] corpuscular hemoglobin [Entitic mass] by Automated count ID Date Data Source [id number] 04/29/2019 12:14:00 PM [facility] Value Range Interpretation Description Data Sup porting Code Source(s) Document(s ) Erythrocyte 87.9 fL [facility] corpuscular volume [Entitic volume] by Automated count ID Date Data Source [id number] 04/29/2019 12:14:00 PM [facility] Name Value Range Interpretation Description Data Sup porting Code Source(s) Document(s ) Hematocrit 37.2 % [place] [Volume Hospital Fraction] of Blood by Automated count ID Date Data Source [id number] 04/29/2019 12:14:00 PM [facility] Name Value Range Interpretation Description Data Sup porting Code Source(s) Document(s ) Hemoglobin 12.3 g/dL [place] [Mass/volume] Hospital in Blood ID Date Data Source [id number] 04/29/2019 12:14:00 PM [facility] Name Value Range Interpretation Description Data Sup porting Code Source(s) Document(s ) Erythrocytes 4.23 [place] [#/volume] in 10*6/uL Hospital Blood by Automated count ID Date Data Source [id number] 04/29/2019 12:14:00 PM [facility] Name Value Range Interpretation Description Data Sup porting Code Source(s) Document(s ) Leukocytes 5.9 [place] [#/volume] in 10*3/uL Hospital Blood by Automated count ID Date Data Source [id number] 04/16/2019 02:05:00 PM [facility] Informatics Analyst:[employer]ICON[employer] Name Value Range Interpretation Description Data Sup porting Code Source(s) Document(s ) Glucose 80 mg/dL [place] [Mass/volume] Hospital in Capillary blood by Glucometer ID Date Data Source [id number] 04/16/2019 12:13:00 PM [facility] Name Value Range Interpretation Description Data Sup porting Code Source(s) Document(s ) Leukocyte NEGATIVE [facility] Hospital [Presence] in Urine by Test strip ID Date Data Source [id number] 04/16/2019 12:13:00 PM EST [facility] [facility] Name Value Range Interpretation Description Data Sup porting Code Source(s) Document(s ) URINE NEGATIVE [place] NITRITES Hospital ID Date Data Source [id number] 04/16/2019 12:13:00 PM EST [facility] [facility] Name Value Range Interpretation Description Data Sup porting Code Source(s) Document(s ) Erythrocytes NEGATIVE [place] [#/volume] in Hospital Urine by Test strip ID Date Data Source [id number] 04/16/2019 12:13:00 PM [facility] Value Range Interpretation Code Description Data Bryanna rce(s) Supporting Document(s ) Bilirubin. NEGATIVE [place] total Hospital [Presence] in Urine by Test strip ID Date Data Source [id number] 04/16/2019 12:13:00 PM [facility] Name Value Range Interpretation Description Data Sup porting Code Source(s) Document(s ) Urobilinogen 0.2 [place] [Units/volume] mg/dL Hospital in Urine by Test strip ID Date Data Source [id number] 04/16/2019 12:13:00 PM EST [facility] Name Value Range Interpretation Description Data Sup porting Code Source(s) Document(s ) Ketones NEGATIVE [place] [Mass/volume Hospital ] in Urine by Test strip ID Date Data Source [id number] 04/16/2019 12:13:00 PM [facility] Hospital Name Value Range Interpretation Code Description Data Bryanna rce(s) Supporting Document(s ) Glucose 3+ [place] [Mass/volume Hospital ] in Urine by Test strip ID Date Data Source [id number] 04/16/2019 12:13:00 PM EST [facility] Name Value Range Interpretation Description Data Sup porting Code Source(s) Document(s ) Protein NEGATIVE [place] [Presence] Hospital in Urine by Test strip ID Date Data Source [id number] 04/16/2019 12:13:00 PM EST [facility] Name Value Range Interpretation Code Description Data Bryanna rce(s) Supporting Document(s ) pH of Urine 7.0 [place] by Test Hospital strip ID Date Data Source [id number] 04/16/2019 12:13:00 PM EST [facility] Name Value Range Interpretation Code Description Data Supporting Source(s) Document(s ) Specific 1.036 [place] gravity of Hospital Urine by Test strip ID Date Data Source [id number] 04/16/2019 12:13:00 PM EST [facility] [facility] Name Value Range Interpretation Description Data Sup porting Code Source(s) Document(s ) Clarity in Urine CLEAR [facility] [facility] automated ID Date Data Source [id number] 04/16/2019 12:13:00 PM EST [facility] Name Value Range Interpretation Code Description Data Bryanna rce(s) Supporting Document(s ) Color of YELLOW [place] [facility] ID Date Data Source [id number] 04/16/2019 12:13:00 PM EST [facility] Name Value Range Interpretation Description Data Sup porting Code Source(s) Document(s ) Leukocyte NEGATIVE [facility] [facility] [Presence] in Urine by Test strip ID Date Data Source [id number] 04/16/2019 12:13:00 PM EST [facility] Name Value Range Interpretation Description Data Sup porting Code Source(s) Document(s ) URINE NEGATIVE [facility] ID Date Data Source [id number] 04/16/2019 12:13:00 PM EST [facility] Name Value Range Interpretation Description Data Sup porting Code Source(s) Document(s ) Erythrocytes NEGATIVE [place] [#/volume] in Hospital Urine by Test strip ID Date Data Source [id number] 04/16/2019 12:13:00 PM EST [facility] Name Value Range Interpretation Code Description Data Bryanna rce(s) Supporting Document(s ) Bilirubin. NEGATIVE [place] [facility] [Presence] in Urine by Test strip ID Date Data Source [id number] 04/16/2019 12:13:00 PM EST [facility] Name Value Range Interpretation Description Data Sup porting Code Source(s) Document(s ) Urobilinogen 0.2 [place] [Units/volume] mg/dL Hospital in Urine by Test strip ID Date Data Source [id number] 04/16/2019 12:13:00 PM EST [facility] Name Value Range Interpretation Description Data Sup porting Code Source(s) Document(s ) Ketones NEGATIVE [place] [Mass[facility] ] in Urine by Test strip ID Date Data Source [id number] 04/16/2019 12:13:00 PM EST [facility] Name Value Range Interpretation Code Description Data Bryanna rce(s) Supporting Document(s ) Glucose 3+ [place] [Mass[facility] ] in Urine by Test strip ID Date Data Source [id number] 04/16/2019 12:13:00 PM EST [facility] Name Value Range Interpretation Description Data Sup porting Code Source(s) Document(s ) Protein NEGATIVE [place] [Presence] [facility] in Urine by Test strip ID Date Data Source [id number] 04/16/2019 12:13:00 PM [facility] Value Range Interpretation Code Description Data Bryanna rce(s) Supporting Document(s ) pH of Urine 7.0 [place] [facility] Test [facility] strip ID Date Data Source [id number] 04/16/2019 12:13:00 PM [facility] Name Value Range Interpretation Code Description Data Supporting Source(s) Document(s ) Specific 1.036 [place] gravity of Hospital Urine by Test strip ID Date Data Source [id number] 04/16/2019 12:13:00 PM [facility] Value Range Interpretation Description Data Sup porting Code Source(s) Document(s ) Clarity in Urine CLEAR [facility] automated ID Date Data Source [id number] 04/16/2019 12:13:00 PM [facility] Value Range Interpretation Code Description Data Bryanna rce(s) Supporting Document(s ) Color of YELLOW [place] [facility] ID Date Data Source [id number] 04/16/2019 11:33:00 AM [facility] Value Range Interpretation Description Data Sup porting Code Source(s) Document(s ) Immature 0.02 [place] granulocytes 10*3/uL Hospital [#/volume] in Blood by Automated count ID Date Data Source [id number] 04/16/2019 11:33:00 AM [facility] Value Range Interpretation Description Data Sup porting Code Source(s) Document(s ) Basophils 0.04 [place] [#/volume] in 10*3/uL Hospital Blood by Automated count ID Date Data Source [id number] 04/16/2019 11:33:00 AM [facility] Name Value Range Interpretation Description Data Sup porting Code Source(s) Document(s ) Eosinophils 0.11 [place] [#/volume] in 10*3/uL Hospital Blood by Automated count ID Date Data Source [id number] 04/16/2019 11:33:00 AM [facility] Name Value Range Interpretation Description Data Sup porting Code Source(s) Document(s ) Monocytes 0.60 [place] [#/volume] in 10*3/uL Hospital Blood by Automated count ID Date Data Source [id number] 04/16/2019 11:33:00 AM EST [facility] Name Value Range Interpretation Description Data Sup porting Code Source(s) Document(s ) Lymphocytes 1.42 [place] [#/volume] in 10*3/uL Hospital Blood by Automated count ID Date Data Source [id number] 04/16/2019 11:33:00 AM EST [facility] Name Value Range Interpretation Description Data Sup porting Code Source(s) Document(s ) Neutrophils 3.35 [place] [#/volume] in 10*3/uL [facility] Blood by Automated count ID Date Data Source [id number] 04/16/2019 11:33:00 AM EST [facility] Value Range Interpretation Description Data Sup porting Code Source(s) Document(s ) Nucleated 0.0 % [place] erythrocytes/10 Hospital 0 leukocytes [Ratio] in Blood by Automated count ID Date Data Source [id number] 04/16/2019 11:33:00 AM [facility] Value Range Interpretation Description Data Sup porting Code Source(s) Document(s ) Immature 0.4 % [place] granulocytes/10 Hospital 0 leukocytes in Blood by Automated count ID Date Data Source [id number] 04/16/2019 11:33:00 AM EST [facility] Name Value Range Interpretation Description Data Sup porting Code Source(s) Document(s ) Basophils/100 0.7 % [place] leukocytes in Hospital Blood by Automated count ID Date Data Source [id number] 04/16/2019 11:33:00 AM EST [facility] Value Range Interpretation Description Data Sup porting Code Source(s) Document(s ) Eosinophils/100 2.0 % [place] leukocytes in Hospital Blood by Automated count ID Date Data Source [id number] 04/16/2019 11:33:00 AM EST [facility] Name Value Range Interpretation Description Data Sup porting Code Source(s) Document(s ) Monocytes/100 10.8 % [place] leukocytes in Hospital Blood by Automated count ID Date Data Source [id number] 04/16/2019 11:33:00 AM EST [facility] Name Value Range Interpretation Description Data Sup porting Code Source(s) Document(s ) Lymphocytes/10 25.6 % [place] 0 leukocytes Hospital in Blood by Automated count ID Date Data Source [id number] 04/16/2019 11:33:00 AM EST [facility] Name Value Range Interpretation Description Data Sup porting Code Source(s) Document(s ) Neutrophils/10 60.5 % [place] 0 leukocytes Hospital in Blood by Automated count ID Date Data Source [id number] 04/16/2019 11:33:00 AM EST [facility] Name Value Range Interpretation Description Data Sup porting Code Source(s) Document(s ) Calcium 8.5 mg/dL [place] [Mass[facility]volume Hospital ] in Serum or Plasma ID Date Data Source [id number] 04/16/2019 11:33:00 AM EST [facility] Name Value Range Interpretation Code Description Data Bryanna rce(s) Supporting Document(s ) Urea 14.3 [place] nitrogen/Cre Hospital atinine [Mass Ratio] in Serum or Plasma ID Date Data Source [id number] 04/16/2019 11:33:00 AM [facility] Name Value Range Interpretation Description Data Sup porting Code Source(s) Document(s ) Creatinine 0.7 mg/dL [place] [Mass/volume] Hospital in Serum or Plasma ID Date Data Source [id number] 04/16/2019 11:33:00 AM [facility] Name Value Range Interpretation Description Data Sup porting Code Source(s) Document(s ) Urea 10 mg/dL [place] nitrogen [facility] [Mass/volume ] in Serum or Plasma ID Date Data Source [id number] 04/16/2019 11:33:00 AM EST [facility] Name Value Range Interpretation Code Description Data Bryanna rce(s) Supporting Document(s ) Anion gap in 12 [place] Serum or Hospital Plasma ID Date Data Source [id number] 04/16/2019 11:33:00 AM [facility] Name Value Range Interpretation Description Data Sup porting Code Source(s) Document(s ) Carbon 29 mmol/L [place] dioxide, Hospital total [Moles/volu me] in Serum or Plasma ID Date Data Source [id number] 04/16/2019 11:33:00 AM EST [facility] Name Value Range Interpretation Description Data Sup porting Code Source(s) Document(s ) Chloride 101 [place] [Moles/volum mmol/L Hospital e] in Serum or Plasma ID Date Data Source [id number] 04/16/2019 11:33:00 AM [facility] Name Value Range Interpretation Description Data Sup porting Code Source(s) Document(s ) Potassium 4.5 [place] [Moles/volume mmol/L Hospital ] in Serum or Plasma ID Date Data Source [id number] 04/16/2019 11:33:00 AM [facility] Name Value Range Interpretation Description Data Sup porting Code Source(s) Document(s ) Sodium 137 mmol/L [place] [Moles/volu Hospital me] in Serum or Plasma ID Date Data Source [id number] 04/16/2019 11:33:00 AM [facility] NOTIFICATION AND READ BACK OF CRITICAL R ESULTS TO ABILIO PALMER RN () AT 1227 ON 04/16/19 BY Elle Vizcarra.PLEASE NOTE CHANGE IN CRITICAL GLUCOSE VALUES EFFECTIVE 04/22/17.REPORTED CRITICAL VALUES SHOULD B E INTERPRETED WITHIN CLINICAL CONTEXT. Name Value Range Interpretation Description Data Sup porting Code Source(s) Document(s ) Glucose 413 mg/dL [place] [Mass/volume Hospital ] in Serum or Plasma ID Date Data Source [id number] 04/16/2019 11:33:00 AM [facility] Name Value Range Interpretation Code Description Data Supporting Source(s) Document(s ) NUCLEATED RBCS 0.0 % [place] (AUTO Hospital DIFF%)DIS ID Date Data Source [id number] 04/16/2019 11:33:00 AM [facility] Name Value Range Interpretation Description Data Sup porting Code Source(s) Document(s ) Differential AUTOMATED [place] cell count [facility] method - Blood ID Date Data Source [id number] 04/16/2019 11:33:00 AM [facility] Name Value Range Interpretation Description Data Sup porting Code Source(s) Document(s ) Immature 0.02 [place] granulocytes 10*3/uL Hospital [#/volume] in Blood by Automated count ID Date Data Source [id number] 04/16/2019 11:33:00 AM [facility] Name Value Range Interpretation Description Data Sup porting Code Source(s) Document(s ) Basophils 0.04 [place] [#/volume] in 10*3/uL Hospital Blood by Automated count ID Date Data Source [id number] 04/16/2019 11:33:00 AM [facility] Name Value Range Interpretation Description Data Sup porting Code Source(s) Document(s ) Eosinophils 0.11 [place] [#/volume] in 10*3/uL Hospital Blood by Automated count ID Date Data Source [id number] 04/16/2019 11:33:00 AM EST [facility] Name Value Range Interpretation Description Data Sup porting Code Source(s) Document(s ) Monocytes 0.60 [place] [#/volume] in 10*3/uL Hospital Blood by Automated count ID Date Data Source [id number] 04/16/2019 11:33:00 AM EST [facility] Value Range Interpretation Description Data Sup porting Code Source(s) Document(s ) Lymphocytes 1.42 [place] [#/volume] in 10*3/uL [facility] Blood by Automated count ID Date Data Source [id number] 04/16/2019 11:33:00 AM [facility] Value Range Interpretation Description Data Sup porting Code Source(s) Document(s ) Neutrophils 3.35 [place] [#/volume] in 10*3/uL [facility] Blood by Automated count ID Date Data Source [id number] 04/16/2019 11:33:00 AM [facility] Value Range Interpretation Description Data Sup porting Code Source(s) Document(s ) Nucleated 0.0 % [place] erythrocytes/10 Hospital 0 leukocytes [Ratio] in Blood by Automated count ID Date Data Source [id number] 04/16/2019 11:33:00 AM [facility] Value Range Interpretation Description Data Sup porting Code Source(s) Document(s ) Immature 0.4 % [place] granulocytes/10 Hospital 0 leukocytes in Blood by Automated count ID Date Data Source [id number] 04/16/2019 11:33:00 AM [facility] Value Range Interpretation Description Data Sup porting Code Source(s) Document(s ) Basophils/100 0.7 % [place] leukocytes in Hospital Blood by Automated count ID Date Data Source [id number] 04/16/2019 11:33:00 AM EST [facility] Name Value Range Interpretation Description Data Sup porting Code Source(s) Document(s ) Eosinophils/100 2.0 % [place] leukocytes in Hospital Blood by Automated count ID Date Data Source [id number] 04/16/2019 11:33:00 AM EST [facility] Name Value Range Interpretation Description Data Sup porting Code Source(s) Document(s ) Monocytes/100 10.8 % [place] leukocytes in Hospital Blood by Automated count ID Date Data Source [id number] 04/16/2019 11:33:00 AM EST [facility] Name Value Range Interpretation Description Data Sup porting Code Source(s) Document(s ) Lymphocytes/10 25.6 % [place] 0 leukocytes Hospital in Blood by Automated count ID Date Data Source [id number] 04/16/2019 11:33:00 AM EST [facility] Name Value Range Interpretation Description Data Sup porting Code Source(s) Document(s ) Neutrophils/10 60.5 % [place] 0 leukocytes Hospital in Blood by Automated count ID Date Data Source [id number] 04/16/2019 11:33:00 AM EST [facility] Name Value Range Interpretation Description Data Sup porting Code Source(s) Document(s ) Platelet mean 11.1 fL [place] volume Hospital [Entitic volume] in Blood by Automated count ID Date Data Source [id number] 04/16/2019 11:33:00 AM EST [facility] Name Value Range Interpretation Description Data Sup porting Code Source(s) Document(s ) Platelets 195 [place] [#/volume] in 10*3/uL Hospital Blood by Automated count ID Date Data Source [id number] 04/16/2019 11:33:00 AM EST [facility] Name Value Range Interpretation Description Data Sup porting Code Source(s) Document(s ) Erythrocyte 13.7 % [facility] Hospital width [Ratio] by Automated count ID Date Data Source [id number] 04/16/2019 11:33:00 AM [facility] Value Range Interpretation Description Data Sup porting Code Source(s) Document(s ) Erythrocyte mean 32.8 [place] corpuscular g/dL Hospital hemoglobin concentration [Mass/volume] by Automated count ID Date Data Source [id number] 04/16/2019 11:33:00 AM [facility] Value Range Interpretation Description Data Sup porting Code Source(s) Document(s ) Erythrocyte 29.5 pg [facility] corpuscular hemoglobin [Entitic mass] by Automated count ID Date Data Source [id number] 04/16/2019 11:33:00 AM [facility] Value Range Interpretation Description Data Sup porting Code Source(s) Document(s ) Erythrocyte 89.9 fL [facility] corpuscular volume [Entitic volume] by Automated count ID Date Data Source [id number] 04/16/2019 11:33:00 AM [facility] Value Range Interpretation Description Data Sup porting Code Source(s) Document(s ) Hematocrit 38.4 % [place] [Volume Hospital Fraction] of Blood by Automated count ID Date Data Source [id number] 04/16/2019 11:33:00 AM [facility] Value Range Interpretation Description Data Sup porting Code Source(s) Document(s ) Hemoglobin 12.6 g/dL [place] [Mass/volume] Hospital in Blood ID Date Data Source [id number] 04/16/2019 11:33:00 AM [facility] Value Range Interpretation Description Data Sup porting Code Source(s) Document(s ) Erythrocytes 4.27 [place] [#/volume] in 10*6/uL Hospital Blood by Automated count ID Date Data Source [id number] 04/16/2019 11:33:00 AM [facility] Name Value Range Interpretation Description Data Sup porting Code Source(s) Document(s ) Leukocytes 5.5 [place] [#/volume] in 10*3/uL Hospital Blood by Automated count ID Date Data Source [id number] 04/16/2019 11:33:00 AM [facility] Name Value Range Interpretation Code Description Data Supporting Source(s) Document(s ) NUCLEATED RBCS 0.0 % [place] (AUTO Hospital DIFF%)DIS ID Date Data Source [id number] 04/16/2019 11:33:00 AM [facility] Name Value Range Interpretation Description Data Sup porting Code Source(s) Document(s ) Differential AUTOMATED [place] cell count [facility] method - Blood ID Date Data Source [id number] 04/07/2019 02:30:00 AM [facility] Informatics Analyst:PACO MIRANDA Name Value Range Interpretation Description Data Sup porting Code Source(s) Document(s ) Glucose 373 mg/dL [place] [Mass/volume] Hospital in Capillary blood by Glucometer ID Date Data Source [id number] 04/07/2019 02:29:00 AM [facility] Name Value Range Interpretation Description Data Sup porting Code Source(s) Document(s ) Epithelial 1+ [place] cells.squamous [facility] [#/area] in Urine sediment by Microscopy high power field ID Date Data Source [id number] 04/07/2019 02:29:00 AM [facility] Name Value Range Interpretation Description Data Sup porting Code Source(s) Document(s ) Erythrocytes 0-3 [place] [#/area] in /[HPF] Hospital Urine sediment by Microscopy high power field ID Date Data Source [id number] 04/07/2019 02:29:00 AM [facility] Name Value Range Interpretation Description Data Sup porting Code Source(s) Document(s ) Leukocytes 0-3 [place] [#/area] in /[HPF] Hospital Urine sediment by Microscopy high power field ID Date Data Source [id number] 04/07/2019 02:29:00 AM [facility] Name Value Range Interpretation Description Data Sup porting Code Source(s) Document(s ) Epithelial 1+ [place] [facility] [#/area] in Urine sediment by Microscopy high power field ID Date Data Source [id number] 04/07/2019 02:29:00 AM [facility] Name Value Range Interpretation Description Data Sup porting Code Source(s) Document(s ) Erythrocytes 0-3 [place] [#/area] in /[HPF] Hospital Urine sediment by Microscopy high power field ID Date Data Source [id number] 04/07/2019 02:29:00 AM [facility] Name Value Range Interpretation Description Data Sup porting Code Source(s) Document(s ) Leukocytes 0-3 [place] [#/area] in /[HPF] Hospital Urine sediment by Microscopy high power field ID Date Data Source [id number] 04/07/2019 02:29:00 AM [facility] Name Value Range Interpretation Description Data Sup porting Code Source(s) Document(s ) Leukocyte NEGATIVE [place] esterase [facility] [Presence] in Urine by Test strip ID Date Data Source [id number] 04/07/2019 02:29:00 AM [facility] Name Value Range Interpretation Description Data Sup porting Code Source(s) Document(s ) URINE NEGATIVE [place] NITRITES [facility] ID Date Data Source [id number] 04/07/2019 02:29:00 AM [facility] Hospital Name Value Range Interpretation Description Data Sup porting Code Source(s) Document(s ) Erythrocytes NEGATIVE [place] [#/volume] in Hospital Urine by Test strip ID Date Data Source [id number] 04/07/2019 02:29:00 AM [facility] Name Value Range Interpretation Code Description Data Bryanna rce(s) Supporting Document(s ) Bilirubin. NEGATIVE [place] total Hospital [Presence] in Urine by Test strip ID Date Data Source [id number] 04/07/2019 02:29:00 AM [facility] Name Value Range Interpretation Description Data Sup porting Code Source(s) Document(s ) Urobilinogen 1.0 [place] [Units/volume] mg/dL Hospital in Urine by Test strip ID Date Data Source [id number] 04/07/2019 02:29:00 AM [facility] Hospital Name Value Range Interpretation Description Data Sup porting Code Source(s) Document(s ) Ketones NEGATIVE [place] [Mass/volume Hospital ] in Urine by Test strip ID Date Data Source [id number] 04/07/2019 02:29:00 AM [facility] Hospital Name Value Range Interpretation Code Description Data Bryanna rce(s) Supporting Document(s ) Glucose 3+ [place] [Mass/volume Hospital ] in Urine by Test strip ID Date Data Source [id number] 04/07/2019 02:29:00 AM [facility] Hospital Name Value Range Interpretation Description Data Sup porting Code Source(s) Document(s ) Protein NEGATIVE [place] [Presence] Hospital in Urine by Test strip ID Date Data Source [id number] 04/07/2019 02:29:00 AM [facility] Name Value Range Interpretation Code Description Data Bryanna rce(s) Supporting Document(s ) pH of Urine 6.5 [place] by Test Hospital strip ID Date Data Source [id number] 04/07/2019 02:29:00 AM [facility] Name Value Range Interpretation Code Description Data Supporting Source(s) Document(s ) Specific 1.035 [place] gravity of Hospital Urine by Test strip ID Date Data Source [id number] 04/07/2019 02:29:00 AM [facility] Name Value Range Interpretation Description Data Sup porting Code Source(s) Document(s ) Clarity in Urine CLOUDY [place] [facility] automated ID Date Data Source [id number] 04/07/2019 02:29:00 AM [facility] Value Range Interpretation Code Description Data Bryanna rce(s) Supporting Document(s ) Color of YELLOW [place] Urine Hospital ID Date Data Source [id number] 04/06/2019 10:02:00 PM [facility] Name Value Range Interpretation Description Data Sup porting Code Source(s) Document(s ) Thyroxine 0.7 ng/dL [place] (T4) free [facility] [Mass/volume] in Serum or Plasma ID Date Data Source [id number] 04/06/2019 10:02:00 PM [facility] Name Value Range Interpretation Description Data Sup porting Code Source(s) Document(s ) Thyrotropin 1.291 [place] [Units/volume] u[IU]/mL Hospital in Serum or Plasma by Detection limit <= 0.005 mIU/L ID Date Data Source [id number] 04/06/2019 10:02:00 PM [facility] UNITS ARE IN ml/min/1.73m2.IF PATIENT IS -[place], MULTIPLY REPORTED RESULT BY 1.21. Name Value Range Interpretation Description Data Sup porting Code Source(s) Document(s ) Glomerular > 60 [place] filtration mL/min Hospital rate/1.73 sq M.predicted [Volume Rate/Area] in Serum or Plasma by Creatinine-bas ed formula (MDRD) ID Date Data Source [id number] 04/06/2019 10:02:00 PM [facility] Name Value Range Interpretation Description Data Sup porting Code Source(s) Document(s ) Thyroxine 0.7 ng/dL [place] (T4) free Hospital [Mass/volume] in Serum or Plasma ID Date Data Source [id number] 04/06/2019 10:02:00 PM [facility] Name Value Range Interpretation Description Data Sup porting Code Source(s) Document(s ) Thyrotropin 1.291 [place] [Units/volume] u[IU]/mL Hospital in Serum or Plasma by Detection limit <= 0.005 mIU/L ID Date Data Source [id number] 04/06/2019 10:02:00 PM [facility] UNITS ARE IN ml/min/1.73m2.IF PATIENT IS -[place], MULTIPLY REPORTED RESULT BY 1.21. Name Value Range Interpretation Description Data Sup porting Code Source(s) Document(s ) Glomerular > 60 [place] filtration mL/min Hospital rate/1.73 sq M.predicted [Volume Rate/Area] in Serum or Plasma by Creatinine-bas ed formula (MDRD) ID Date Data Source [id number] 04/06/2019 10:02:00 PM [facility] Name Value Range Interpretation Description Data Sup porting Code Source(s) Document(s ) Thyroxine 0.7 ng/dL [place] (T4) free [facility] [Mass/volume] in Serum or Plasma ID Date Data Source [id number] 04/06/2019 10:02:00 PM [facility] Name Value Range Interpretation Description Data Sup porting Code Source(s) Document(s ) Thyrotropin 1.291 [place] [Units/volume] u[IU]/mL Hospital in Serum or Plasma by Detection limit <= 0.005 mIU/L ID Date Data Source [id number] 04/06/2019 10:02:00 PM [facility] Name Value Range Interpretation Description Data Sup porting Code Source(s) Document(s ) Calcium 8.9 mg/dL [place] [Mass/volume Hospital ] in Serum or Plasma ID Date Data Source [id number] 04/06/2019 10:02:00 PM [facility] UNITS ARE IN ml/min/1.73m2.IF PATIENT IS -[place], MULTIPLY REPORTED RESULT BY 1.21. Name Value Range Interpretation Description Data Sup porting Code Source(s) Document(s ) Glomerular > 60 [place] filtration mL/min Hospital rate/1.73 sq M.predicted [Volume Rate/Area] in Serum or Plasma by Creatinine-bas ed formula (MDRD) ID Date Data Source [id number] 04/06/2019 10:02:00 PM [facility] Name Value Range Interpretation Code Description Data Bryanna rce(s) Supporting Document(s ) Urea 11.7 [place] nitrogen/Cre Hospital atinine [Mass Ratio] in Serum or Plasma ID Date Data Source [id number] 04/06/2019 10:02:00 PM [facility] Name Value Range Interpretation Description Data Sup porting Code Source(s) Document(s ) Creatinine 0.6 mg/dL [place] [Mass/volume] Hospital in Serum or Plasma ID Date Data Source [id number] 04/06/2019 10:02:00 PM [facility] Name Value Range Interpretation Description Data Sup porting Code Source(s) Document(s ) Urea nitrogen 7 mg/dL [place] [Mass/volume] Hospital in Serum or Plasma ID Date Data Source [id number] 04/06/2019 10:02:00 PM EST [facility] Name Value Range Interpretation Code Description Data Bryanna rce(s) Supporting Document(s ) Anion gap in 9 [place] Serum or Hospital Plasma ID Date Data Source [id number] 04/06/2019 10:02:00 PM [facility] Hospital Name Value Range Interpretation Description Data Sup porting Code Source(s) Document(s ) Carbon 30 mmol/L [place] dioxide, Hospital total [Moles/volu me] in Serum or Plasma ID Date Data Source [id number] 04/06/2019 10:02:00 PM [facility] Name Value Range Interpretation Description Data Sup porting Code Source(s) Document(s ) Chloride 107 [place] [Moles/volum mmol/L Hospital e] in Serum or Plasma ID Date Data Source [id number] 04/06/2019 10:02:00 PM [facility] Name Value Range Interpretation Description Data Sup porting Code Source(s) Document(s ) Potassium 3.3 [place] [Moles/volume mmol/L Hospital ] in Serum or Plasma ID Date Data Source [id number] 04/06/2019 10:02:00 PM [facility] Name Value Range Interpretation Description Data Sup porting Code Source(s) Document(s ) Sodium 143 mmol/L [place] [Moles/volu Hospital me] in Serum or Plasma ID Date Data Source [id number] 04/06/2019 10:02:00 PM EST [facility] Name Value Range Interpretation Description Data Sup porting Code Source(s) Document(s ) Glucose 64 mg/dL [place] [Mass/volume Hospital ] in Serum or Plasma ID Date Data Source [id number] 04/06/2019 10:02:00 PM EST [facility] Name Value Range Interpretation Description Data Sup porting Code Source(s) Document(s ) Differential AUTOMATED [place] cell count [facility] method - Blood ID Date Data Source [id number] 04/06/2019 10:02:00 PM [facility] Name Value Range Interpretation Description Data Sup porting Code Source(s) Document(s ) Immature 0.01 [place] granulocytes 10*3/uL Hospital [#/volume] in Blood by Automated count ID Date Data Source [id number] 04/06/2019 10:02:00 PM [facility] Name Value Range Interpretation Description Data Sup porting Code Source(s) Document(s ) Basophils 0.04 [place] [#/volume] in 10*3/uL [facility] Blood by Automated count ID Date Data Source [id number] 04/06/2019 10:02:00 PM [facility] Name Value Range Interpretation Description Data Sup porting Code Source(s) Document(s ) Eosinophils 0.12 [place] [#/volume] in 10*3/uL Hospital Blood by Automated count ID Date Data Source [id number] 04/06/2019 10:02:00 PM [facility] Value Range Interpretation Description Data Sup porting Code Source(s) Document(s ) Monocytes 0.54 [place] [#/volume] in 10*3/uL [facility] Blood by Automated count ID Date Data Source [id number] 04/06/2019 10:02:00 PM [facility] Name Value Range Interpretation Description Data Sup porting Code Source(s) Document(s ) Lymphocytes 1.75 [place] [#/volume] in 10*3/uL [facility] Blood by Automated count ID Date Data Source [id number] 04/06/2019 10:02:00 PM [facility] Value Range Interpretation Description Data Sup porting Code Source(s) Document(s ) Neutrophils 2.75 [place] [#/volume] in 10*3/uL [facility] Blood by Automated count ID Date Data Source [id number] 04/06/2019 10:02:00 PM [facility] Value Range Interpretation Description Data Sup porting Code Source(s) Document(s ) Nucleated 0.0 % [place] erythrocytes/10 Hospital 0 leukocytes [Ratio] in Blood by Automated count ID Date Data Source [id number] 04/06/2019 10:02:00 PM EST [facility] Value Range Interpretation Description Data Sup porting Code Source(s) Document(s ) Immature 0.2 % [place] granulocytes/10 Hospital 0 leukocytes in Blood by Automated count ID Date Data Source [id number] 04/06/2019 10:02:00 PM [facility] Value Range Interpretation Description Data Sup porting Code Source(s) Document(s ) Basophils/100 0.8 % [place] leukocytes in [facility] Blood by Automated count ID Date Data Source [id number] 04/06/2019 10:02:00 PM [facility] Value Range Interpretation Description Data Sup porting Code Source(s) Document(s ) Eosinophils/100 2.3 % [place] leukocytes in [facility] Blood by Automated count ID Date Data Source [id number] 04/06/2019 10:02:00 PM [facility] Value Range Interpretation Description Data Sup porting Code Source(s) Document(s ) Monocytes/100 10.4 % [place] leukocytes in Hospital Blood by Automated count ID Date Data Source [id number] 04/06/2019 10:02:00 PM [facility] Value Range Interpretation Description Data Sup porting Code Source(s) Document(s ) Lymphocytes/10 33.6 % [place] 0 leukocytes Hospital in Blood by Automated count ID Date Data Source [id number] 04/06/2019 10:02:00 PM [facility] Name Value Range Interpretation Description Data Sup porting Code Source(s) Document(s ) Neutrophils/10 52.7 % [place] 0 leukocytes Hospital in Blood by Automated count ID Date Data Source [id number] 04/06/2019 10:02:00 PM [facility] Name Value Range Interpretation Description Data Sup porting Code Source(s) Document(s ) Platelet mean 11.5 fL [place] volume Hospital [Entitic volume] in Blood by Automated count ID Date Data Source [id number] 04/06/2019 10:02:00 PM [facility] Value Range Interpretation Description Data Sup porting Code Source(s) Document(s ) Platelets 248 [place] [#/volume] in 10*3/uL Hospital Blood by Automated count ID Date Data Source [id number] 04/06/2019 10:02:00 PM [facility] Value Range Interpretation Description Data Sup porting Code Source(s) Document(s ) Erythrocyte 13.8 % [facility] Hospital width [Ratio] by Automated count ID Date Data Source [id number] 04/06/2019 10:02:00 PM [facility] Value Range Interpretation Description Data Sup porting Code Source(s) Document(s ) Erythrocyte mean 32.1 [place] corpuscular g/dL Hospital hemoglobin concentration [Mass/volume] by Automated count ID Date Data Source [id number] 04/06/2019 10:02:00 PM [facility] Value Range Interpretation Description Data Sup porting Code Source(s) Document(s ) Erythrocyte 29.4 pg [facility] corpuscular hemoglobin [Entitic mass] by Automated count ID Date Data Source [id number] 04/06/2019 10:02:00 PM [facility] Name Value Range Interpretation Description Data Sup porting Code Source(s) Document(s ) Erythrocyte 91.8 fL [place] mean Hospital corpuscular volume [Entitic volume] by Automated count ID Date Data Source [id number] 04/06/2019 10:02:00 PM [facility] Name Value Range Interpretation Description Data Sup porting Code Source(s) Document(s ) Hematocrit 39.3 % [place] [Volume Hospital Fraction] of Blood by Automated count ID Date Data Source [id number] 04/06/2019 10:02:00 PM [facility] Value Range Interpretation Description Data Sup porting Code Source(s) Document(s ) Hemoglobin 12.6 g/dL [place] [Mass/volume] Hospital in Blood ID Date Data Source [id number] 04/06/2019 10:02:00 PM [facility] Name Value Range Interpretation Description Data Sup porting Code Source(s) Document(s ) Erythrocytes 4.28 [place] [#/volume] in 10*6/uL Hospital Blood by Automated count ID Date Data Source [id number] 04/06/2019 10:02:00 PM [facility] Name Value Range Interpretation Description Data Sup porting Code Source(s) Document(s ) Leukocytes 5.2 [place] [#/volume] in 10*3/uL Hospital Blood by Automated count ID Date Data Source [id number] 03/09/2019 08:08:00 PM [facility] Informatics Analyst:ADOLFO RODAS Name Value Range Interpretation Description Data Sup porting Code Source(s) Document(s ) Glucose 223 mg/dL [place] [Mass/volume] Hospital in Capillary blood by Glucometer ID Date Data Source [id number] 03/09/2019 07:35:00 PM [facility] Name Value Range Interpretation Description Data Sup porting Code Source(s) Document(s ) GLUCOSE MD Notified [place] [address] Hospital ID Date Data Source [id number] 03/09/2019 07:35:00 PM [facility] Name Value Range Interpretation Description Data Sup porting Code Source(s) Document(s ) GLUCOSE RN Notified [facility] Hospital ID Date Data Source [id number] 03/09/2019 07:35:00 PM [facility] Name Value Range Interpretation Description Data Sup porting Code Source(s) Document(s ) GLUCOSE MD Notified [place] [address] Hospital ID Date Data Source [id number] 03/09/2019 07:35:00 PM [facility] Name Value Range Interpretation Description Data Sup porting Code Source(s) Document(s ) GLUCOSE RN Notified [facility] Hospital ID Date Data Source [id number] 03/09/2019 04:21:00 PM [facility] CUT-OFF >= 25 NG/ML.THE FINDINGS OF [...] rce(s) Supporting Document(s ) PCP (UR) NEGATIVE [facility] ID Date Data Source [id number] 03/09/2019 04:21:00 PM [facility] CUT-OFF >= 50 NG/ML. Name Value Range Interpretation Code Description Data Bryanna rce(s) Supporting Document(s ) THC (UR) NEGATIVE [facility] ID Date Data Source [id number] 03/09/2019 04:21:00 PM [facility] CUT-OFF >= 300 NG/ML. Name Value Range Interpretation Description Data Sup porting Code Source(s) Document(s ) OPIATES (UR) NEGATIVE [facility] [facility] ID Date Data Source [id number] 03/09/2019 04:21:00 PM [facility] CUT-OFF >= 300 NG/ML. Name Value Range Interpretation Description Data Sup porting Code Source(s) Document(s ) COCAINE (UR) NEGATIVE [facility] ID Date Data Source [id number] 03/09/2019 04:21:00 PM [facility] CUT-OFF >= 200 NG/ML. Name Value Range Interpretation Description Data Sup porting Code Source(s) Document(s ) BENZODIAZEPINES NEGATIVE [place] (UR) [facility] ID Date Data Source [id number] 03/09/2019 04:21:00 PM [facility] CUT-OFF >= 200 NG/ML. Name Value Range Interpretation Description Data Sup porting Code Source(s) Document(s ) BARBITURATES NEGATIVE [place] (UR) Hospital ID Date Data Source [id number] 03/09/2019 04:21:00 PM [facility] CUT-OFF >= 1000 NG/ML. Name Value Range Interpretation Description Data Sup porting Code Source(s) Document(s ) AMPHETAMINES NEGATIVE [place] (UR) Hospital ID Date Data Source [id number] 03/09/2019 04:21:00 PM [facility] REFERENCE RANGES: NONE DETECTED <20 MG/DL NONE TO MILD EUPHORIA 20-49 MG/DL MILD EUPHORIA 50-99 MG/DL MODERATE EUPHORIA 100-149 MG/DL INTOXICATION 150-300 MG/DL Name Value Range Interpretation Description Data Sup porting Code Source(s) Document(s ) Ethanol < 20 [place] [Mass/volume mg/dL Hospital ] in Serum or Plasma ID Date Data Source [id number] 03/09/2019 04:21:00 PM [facility] TEST RESULT IS A TOTAL TRICYCLIC [...] Code Source(s) Document(s ) TRICYCLIC < 80 [place] ANTIDEPRESSANT ng/mL Hospital ID Date Data Source [id number] 03/09/2019 04:21:00 PM [facility] REFERENCE RANGES: ANALGESIC: 0.0 - 10.0 MG/DL. ARTHRITIC THERAPY: 15.0 - 30.0 MG/DL. Name Value Range Interpretation Description Data Sup porting Code Source(s) Document(s ) Salicylates < 3.0 [place] [Mass/volume] mg/dL Hospital in Serum or Plasma ID Date Data Source [id number] 03/09/2019 04:21:00 PM [facility] THERAPEUTIC RANGE: 10.0-30.0 UG/MLTOXIC RANGE: 4 HRS AFTER INGESTION >150 UG/ML 12 HRS AFTER INGESTION >35 UG/ML Name Value Range Interpretation Description Data Sup porting Code Source(s) Document(s ) ACETAMINOPHEN < 10.0 [place] ug/mL Hospital ID Date Data Source [id number] 03/09/2019 04:21:00 PM [facility] Name Value Range Interpretation Description Data Sup porting Code Source(s) Document(s ) Aspartate 46 U/L [place] aminotransferase [facility] [Enzymatic Hospital activity/volume] in Serum or Plasma ID Date Data Source [id number] 03/09/2019 04:21:00 PM EST [facility] Name Value Range Interpretation Description Data Sup porting Code Source(s) Document(s ) Alanine 31 U/L [place] aminotransferase [facility] [Enzymatic Hospital activity/volume] in Serum or Plasma ID Date Data Source [id number] 03/09/2019 04:21:00 PM EST [facility] Name Value Range Interpretation Description Data Sup porting Code Source(s) Document(s ) Alkaline 86 U/L [place] phosphatase Hospital [Enzymatic activity/volume ] in Serum or Plasma ID Date Data Source [id number] 03/09/2019 04:21:00 PM EST [facility] Name Value Range Interpretation Description Data Sup porting Code Source(s) Document(s ) Bilirubin.t 0.9 mg/dL [facility] [Mass/volum e] in Serum or Plasma ID Date Data Source [id number] 03/09/2019 04:21:00 PM EST [facility] Name Value Range Interpretation Code Description Data Bryanna rce(s) Supporting Document(s ) Albumin/Glob 1.3 [facility] [Mass Hospital Ratio] in Serum or Plasma ID Date Data Source [id number] 03/09/2019 04:21:00 PM EST [facility] Name Value Range Interpretation Description Data Sup porting Code Source(s) Document(s ) Albumin 3.9 g/dL [place] [Mass/volume Hospital ] in Serum or Plasma ID Date Data Source [id number] 03/09/2019 04:21:00 PM EST [facility] Name Value Range Interpretation Description Data Sup porting Code Source(s) Document(s ) Protein 6.9 g/dL [place] [Mass/volume Hospital ] in Serum or Plasma ID Date Data Source [id number] 03/09/2019 04:21:00 PM EST [facility] Name Value Range Interpretation Code Description Data Supporting Source(s) Document(s ) NUCLEATED RBCS 0.0 % [place] (AUTO Hospital DIFF%)DIS ID Date Data Source [id number] 03/09/2019 04:21:00 PM EST [facility] CUT-OFF >= 25 NG/ML.THE FINDINGS [...] rce(s) Supporting Document(s ) PCP (UR) NEGATIVE [facility] ID Date Data Source [id number] 03/09/2019 04:21:00 PM EST [facility] CUT-OFF >= 50 NG/ML. Name Value Range Interpretation Code Description Data Bryanna rce(s) Supporting Document(s ) THC (UR) NEGATIVE [facility] ID Date Data Source [id number] 03/09/2019 04:21:00 PM EST [facility] CUT-OFF >= 300 NG/ML. Name Value Range Interpretation Description Data Sup porting Code Source(s) Document(s ) OPIATES (UR) NEGATIVE [facility] ID Date Data Source [id number] 03/09/2019 04:21:00 PM EST [facility] CUT-OFF >= 300 NG/ML. Name Value Range Interpretation Description Data Sup porting Code Source(s) Document(s ) COCAINE (UR) NEGATIVE [facility] ID Date Data Source [id number] 03/09/2019 04:21:00 PM EST [facility] CUT-OFF >= 200 NG/ML. Name Value Range Interpretation Description Data Sup porting Code Source(s) Document(s ) BENZODIAZEPINES NEGATIVE [place] (UR) [facility] ID Date Data Source [id number] 03/09/2019 04:21:00 PM [facility] CUT-OFF >= 200 NG/ML. Name Value Range Interpretation Description Data Sup porting Code Source(s) Document(s ) BARBITURATES NEGATIVE [place] (UR) Hospital ID Date Data Source [id number] 03/09/2019 04:21:00 PM [facility] CUT-OFF >= 1000 NG/ML. Name Value Range Interpretation Description Data Sup porting Code Source(s) Document(s ) AMPHETAMINES NEGATIVE [place] (UR) Hospital ID Date Data Source [id number] 03/09/2019 04:21:00 PM [facility] REFERENCE RANGES: NONE DETECTED <20 MG/DL NONE TO MILD EUPHOR[place] 20-49 MG/DL MILD EUPHORIA 50-99 MG/DL MODERATE EUPH[place]IA 100-149 MG/DL INTOXICATION 150-300 MG/DL Name Value Range Interpretation Description Data Sup porting Code Source(s) Document(s ) Ethanol < 20 [place] [Mass/volume mg/dL [facility] ] in Serum or Plasma ID Date Data Source [id number] 03/09/2019 04:21:00 PM [facility] TEST RESULT IS A TOTAL TRICYCLIC [...] Code Source(s) Document(s ) TRICYCLIC < 80 [place] ANTIDEPRESSANT ng/mL Hospital ID Date Data Source [id number] 03/09/2019 04:21:00 PM [facility] REFERENCE RANGES: ANALGESIC: 0.0 - 10.0 MG/DL. ARTHRITIC THERAPY: 15.0 - 30.0 MG/DL. Name Value Range Interpretation Description Data Sup porting Code Source(s) Document(s ) Salicylates < 3.0 [place] [Mass/volume] mg/dL Hospital in Serum or Plasma ID Date Data Source [id number] 03/09/2019 04:21:00 PM [facility] THERAPEUTIC RANGE: 10.0-30.0 UG/MLTOXIC RANGE: 4 HRS AFTER INGESTION >150 UG/ML 12 HRS AFTER INGESTION >35 UG/ML Name Value Range Interpretation Description Data Sup porting Code Source(s) Document(s ) ACETAMINOPHEN < 10.0 [place] ug/mL Hospital ID Date Data Source [id number] 03/09/2019 04:21:00 PM [facility] Name Value Range Interpretation Description Data Sup porting Code Source(s) Document(s ) Aspartate 46 U/L [place] aminotransferase [facility] [Enzymatic Hospital activity/volume] in Serum or Plasma ID Date Data Source [id number] 03/09/2019 04:21:00 PM [facility] Name Value Range Interpretation Description Data Sup porting Code Source(s) Document(s ) Alanine 31 U/L [facility] aminotransferase [facility] [Enzymatic Hospital activity/volume] in Serum or Plasma ID Date Data Source [id number] 03/09/2019 04:21:00 PM [facility] Name Value Range Interpretation Description Data Sup porting Code Source(s) Document(s ) Alkaline 86 U/L [place] phosphatase Hospital [Enzymatic activity/volume ] in Serum or Plasma ID Date Data Source [id number] 03/09/2019 04:21:00 PM [facility] Name Value Range Interpretation Description Data Sup porting Code Source(s) Document(s ) Bilirubin.t 0.9 mg/dL [facility] [Mass/volum e] in Serum or Plasma ID Date Data Source [id number] 03/09/2019 04:21:00 PM EST [facility] Name Value Range Interpretation Code Description Data Bryanna rce(s) Supporting Document(s ) Albumin/Glob 1.3 [place] ulin [Mass Hospital Ratio] in Serum or Plasma ID Date Data Source [id number] 03/09/2019 04:21:00 PM EST [facility] Name Value Range Interpretation Description Data Sup porting Code Source(s) Document(s ) Albumin 3.9 g/dL [place] [Mass/volume Hospital ] in Serum or Plasma ID Date Data Source [id number] 03/09/2019 04:21:00 PM EST [facility] Name Value Range Interpretation Description Data Sup porting Code Source(s) Document(s ) Protein 6.9 g/dL [facility] ] in Serum or Plasma ID Date Data Source [id number] 03/09/2019 04:21:00 PM EST [facility] Name Value Range Interpretation Description Data Sup porting Code Source(s) Document(s ) Calcium 9.4 mg/dL [facility] [[facility] ] in Serum or Plasma ID Date Data Source [id number] 03/09/2019 04:21:00 PM EST [facility] Name Value Range Interpretation Code Description Data Bryanna rce(s) Supporting Document(s ) Urea 18.6 [facility] nitrogen/Cre [facility] atinine [Mass Ratio] in Serum or Plasma ID Date Data Source [id number] 03/09/2019 04:21:00 PM EST [facility] Name Value Range Interpretation Description Data Sup porting Code Source(s) Document(s ) Creatinine 0.7 mg/dL [facility] [[facility] in Serum or Plasma ID Date Data Source [id number] 03/09/2019 04:21:00 PM EST [facility] Name Value Range Interpretation Description Data Sup porting Code Source(s) Document(s ) Urea 13 mg/dL [facility] nitrogen [facility] [Mass/volume ] in Serum or Plasma ID Date Data Source [id number] 03/09/2019 04:21:00 PM EST [facility] Name Value Range Interpretation Code Description Data Bryanna rce(s) Supporting Document(s ) Anion gap in 12 [facility] Serum or Hospital Plasma ID Date Data Source [id number] 03/09/2019 04:21:00 PM [facility] Name Value Range Interpretation Description Data Sup porting Code Source(s) Document(s ) Carbon 28 mmol/L [facility] dioxide, Hospital total [Moles/volu me] in Serum or Plasma ID Date Data Source [id number] 03/09/2019 04:21:00 PM EST [facility] Name Value Range Interpretation Description Data Sup porting Code Source(s) Document(s ) Chloride 103 [facility] [Moles/volum mmol/L Hospital e] in Serum or Plasma ID Date Data Source [id number] 03/09/2019 04:21:00 PM EST [facility] Name Value Range Interpretation Description Data Sup porting Code Source(s) Document(s ) Potassium 4.2 [facility] [Moles/volume mmol/L Hospital ] in Serum or Plasma ID Date Data Source [id number] 03/09/2019 04:21:00 PM EST [facility] Name Value Range Interpretation Description Data Sup porting Code Source(s) Document(s ) Sodium 139 mmol/L [facility] [Moles/volu Hospital me] in Serum or Plasma ID Date Data Source [id number] 03/09/2019 04:21:00 PM EST [facility] Name Value Range Interpretation Description Data Sup porting Code Source(s) Document(s ) Glucose 193 mg/dL [facility] ] in Serum or Plasma ID Date Data Source [id number] 03/09/2019 04:21:00 PM EST [facility] Name Value Range Interpretation Description Data Sup porting Code Source(s) Document(s ) Leukocyte NEGATIVE [facility] esterase [facility] [Presence] in Urine by Test strip ID Date Data Source [id number] 03/09/2019 04:21:00 PM EST [facility] Name Value Range Interpretation Description Data Sup porting Code Source(s) Document(s ) URINE NEGATIVE [facility] NITRITES Hospital ID Date Data Source [id number] 03/09/2019 04:21:00 PM EST [facility] Name Value Range Interpretation Description Data Sup porting Code Source(s) Document(s ) Erythrocytes NEGATIVE [facility] [#/volume] in Hospital Urine by Test strip ID Date Data Source [id number] 03/09/2019 04:21:00 PM [facility] Name Value Range Interpretation Code Description Data Bryanna rce(s) Supporting Document(s ) Bilirubin. NEGATIVE [facility] total Hospital [Presence] in Urine by Test strip ID Date Data Source [id number] 03/09/2019 04:21:00 PM EST [facility] Name Value Range Interpretation Description Data Sup porting Code Source(s) Document(s ) Urobilinogen 1.0 [facility] [Units/volume] mg/dL Hospital in Urine by Test strip ID Date Data Source [id number] 03/09/2019 04:21:00 PM EST [facility] Name Value Range Interpretation Description Data Sup porting Code Source(s) Document(s ) Ketones NEGATIVE [facility] [[facility] ] in Urine by Test strip ID Date Data Source [id number] 03/09/2019 04:21:00 PM EST [facility] Name Value Range Interpretation Code Description Data Bryanna rce(s) Supporting Document(s ) Glucose 2+ [facility] [[facility] ] in Urine by Test strip ID Date Data Source [id number] 03/09/2019 04:21:00 PM EST [facility] Name Value Range Interpretation Description Data Sup porting Code Source(s) Document(s ) Protein NEGATIVE [facility] [Presence] Hospital in Urine by Test strip ID Date Data Source [id number] 03/09/2019 04:21:00 PM EST [facility] Name Value Range Interpretation Code Description Data Bryanna rce(s) Supporting Document(s ) pH of Urine 7.5 [facility] by Test Hospital strip ID Date Data Source [id number] 03/09/2019 04:21:00 PM EST [facility] Name Value Range Interpretation Code Description Data Supporting Source(s) Document(s ) Specific 1.022 [facility] gravity of Hospital Urine by Test strip ID Date Data Source [id number] 03/09/2019 04:21:00 PM EST [facility] Name Value Range Interpretation Description Data Sup porting Code Source(s) Document(s ) Clarity in Urine CLEAR [facility] automated ID Date Data Source [id number] 03/09/2019 04:21:00 PM EST [facility] Name Value Range Interpretation Code Description Data Bryanna rce(s) Supporting Document(s ) Color of YELLOW [facility] Urine Hospital ID Date Data Source [id number] 03/09/2019 04:21:00 PM EST [facility] Name Value Range Interpretation Code Description Data Supporting Source(s) Document(s ) NUCLEATED RBCS 0.0 % [facility] (AUTO Hospital DIFF%)DIS ID Date Data Source [id number] 03/09/2019 04:21:00 PM [facility] Name Value Range Interpretation Description Data Sup porting Code Source(s) Document(s ) Differential AUTOMATED [facility] cell count [facility] method - Blood ID Date Data Source [id number] 03/09/2019 04:21:00 PM [facility] Name Value Range Interpretation Description Data Sup porting Code Source(s) Document(s ) Immature 0.01 [facility] granulocytes 10*3/uL Hospital [#/volume] in Blood by Automated count ID Date Data Source [id number] 03/09/2019 04:21:00 PM [facility] Name Value Range Interpretation Description Data Sup porting Code Source(s) Document(s ) Basophils 0.05 [facility] [#/volume] in 10*3/uL [facility] Blood by Automated count ID Date Data Source [id number] 03/09/2019 04:21:00 PM [facility] Name Value Range Interpretation Description Data Sup porting Code Source(s) Document(s ) Eosinophils 0.08 [facility] [#/volume] in 10*3/uL Hospital Blood by Automated count ID Date Data Source [id number] 03/09/2019 04:21:00 PM [facility] Name Value Range Interpretation Description Data Sup porting Code Source(s) Document(s ) Monocytes 1.06 [place] [#/volume] in 10*3/uL [facility] Blood by Automated count ID Date Data Source [id number] 03/09/2019 04:21:00 PM [facility] Name Value Range Interpretation Description Data Sup porting Code Source(s) Document(s ) Platelet mean 11.8 fL [facility] volume [facility] [Entitic volume] in Blood by Automated count ID Date Data Source [id number] 03/09/2019 04:21:00 PM [facility] Value Range Interpretation Description Data Sup porting Code Source(s) Document(s ) Platelets 219 [place] [#/volume] in 10*3/uL Hospital Blood by Automated count ID Date Data Source [id number] 03/09/2019 04:21:00 PM [facility] Value Range Interpretation Description Data Sup porting Code Source(s) Document(s ) Erythrocyte 13.3 % [facility] Hospital width [Ratio] by Automated count ID Date Data Source [id number] 03/09/2019 04:21:00 PM [facility] Value Range Interpretation Description Data Sup porting Code Source(s) Document(s ) Erythrocyte mean 34.3 [facility] corpuscular g/dL Hospital hemoglobin concentration [Mass/volume] by Automated count ID Date Data Source [id number] 03/09/2019 04:21:00 PM [facility] Value Range Interpretation Description Data Sup porting Code Source(s) Document(s ) Erythrocyte 30.4 pg [facility] corpuscular hemoglobin [Entitic mass] by Automated count ID Date Data Source [id number] 03/09/2019 04:21:00 PM [facility] Value Range Interpretation Description Data Sup porting Code Source(s) Document(s ) Erythrocyte 88.6 fL [facility] corpuscular volume [Entitic volume] by Automated count ID Date Data Source [id number] 03/09/2019 04:21:00 PM [facility] Value Range Interpretation Description Data Sup porting Code Source(s) Document(s ) Hematocrit 33.5 % [facility] [Volume Hospital Fraction] of Blood by Automated count ID Date Data Source [id number] 03/09/2019 04:21:00 PM [facility] Value Range Interpretation Description Data Sup porting Code Source(s) Document(s ) Hemoglobin 11.5 g/dL [facility] [Mass/volume] Hospital in Blood ID Date Data Source [id number] 03/09/2019 04:21:00 PM [facility] Value Range Interpretation Description Data Sup porting Code Source(s) Document(s ) Erythrocytes 3.78 [place] [#/volume] in 10*6/uL [facility] Blood by Automated count ID Date Data Source [id number] 03/09/2019 04:21:00 PM [facility] Value Range Interpretation Description Data Sup porting Code Source(s) Document(s ) Leukocytes 5.8 [place] [#/volume] in 10*3/uL [facility] Blood by Automated count ID Date Data Source [id number] 03/09/2019 04:21:00 PM [facility] Value Range Interpretation Description Data Sup porting Code Source(s) Document(s ) Lymphocytes 2.13 [facility] [#/volume] in 10*3/uL Hospital Blood by Automated count ID Date Data Source [id number] 03/09/2019 04:21:00 PM [facility] Value Range Interpretation Description Data Sup porting Code Source(s) Document(s ) Neutrophils 2.43 [place] [#/volume] in 10*3/uL [facility] Blood by Automated count ID Date Data Source [id number] 03/09/2019 04:21:00 PM [facility] Value Range Interpretation Description Data Sup porting Code Source(s) Document(s ) Nucleated 0.0 % [facility] erythrocytes/10 Hospital 0 leukocytes [Ratio] in Blood by Automated count ID Date Data Source [id number] 03/09/2019 04:21:00 PM [facility] Value Range Interpretation Description Data Sup porting Code Source(s) Document(s ) Immature 0.2 % [facility] granulocytes/10 Hospital 0 leukocytes in Blood by Automated count ID Date Data Source [id number] 03/09/2019 04:21:00 PM EST [facility] Name Value Range Interpretation Description Data Sup porting Code Source(s) Document(s ) Basophils/100 0.9 % [facility] leukocytes in Hospital Blood by Automated count ID Date Data Source [id number] 03/09/2019 04:21:00 PM EST [facility] Name Value Range Interpretation Description Data Sup porting Code Source(s) Document(s ) Eosinophils/100 1.4 % [facility] leukocytes in Hospital Blood by Automated count ID Date Data Source [id number] 03/09/2019 04:21:00 PM EST [facility] Name Value Range Interpretation Description Data Sup porting Code Source(s) Document(s ) Monocytes/100 18.4 % [facility] leukocytes in Hospital Blood by Automated count ID Date Data Source [id number] 03/09/2019 04:21:00 PM EST [facility] Name Value Range Interpretation Description Data Sup porting Code Source(s) Document(s ) Lymphocytes/10 37.0 % [facility] 0 leukocytes Hospital in Blood by Automated count ID Date Data Source [id number] 03/09/2019 04:21:00 PM EST [facility] Name Value Range Interpretation Description Data Sup porting Code Source(s) Document(s ) Neutrophils/10 42.1 % [facility] 0 leukocytes Hospital in Blood by Automated count ID Date Data Source [id number] 03/03/2019 04:41:00 PM EST [facility] Name Value Range Interpretation Description Data Sup porting Code Source(s) Document(s ) GLUCOSE RN Notified [facility] COMMENT2 Hospital ID Date Data Source [id number] 03/03/2019 04:41:00 PM [facility] Name Value Range Interpretation Description Data Sup porting Code Source(s) Document(s ) GLUCOSE Venous [facility] COMMENT Sent to Hospital Lab ID Date Data Source [id number] 03/03/2019 04:41:00 PM [facility] Informatics Analyst:TRACIE CORTES Name Value Range Interpretation Description Data Sup porting Code Source(s) Document(s ) Glucose 296 mg/dL [place] [Mass/volume] [facility] in Capillary blood by Glucometer ID Date Data Source [id number] 03/02/2019 05:08:00 AM [facility] ADA RECOMMENDATIONS: NON-DIABETES: 4.0-6.0% CONTROLLED DIABETES: 6.0-8.0% UNCONTROLLED DIABETE S: UP TO 20%RECOMMENDED ADA RESULT FOR THERAPY: HEMOGLOBIN A1C RESULT LESS GM N 7%.NOTE: METHOD CHANGE EFFECTIVE 11/11/14. Name Value Range Interpretation Description Data Sup porting Code Source(s) Document(s ) Hemoglobin 9.7 % [facility] A1c/Hemoglobin. Hospital total in Blood ID Date Data Source [id number] 03/02/2019 05:08:00 AM [facility] ADA RECOMMENDATIONS: NON-DIABETES: 4.0-6.0% CONTROLLED DIABETES: 6.0-8.0% UNCONTROLLED DIABETE S: UP TO 20%RECOMMENDED ADA RESULT FOR THERAPY: HEMOGLOBIN A1C RESULT LESS GM N 7%.NOTE: METHOD CHANGE EFFECTIVE 11/11/14. Name Value Range Interpretation Description Data Sup porting Code Source(s) Document(s ) Hemoglobin 9.7 % [facility] A1c/Hemoglobin. Hospital total in Blood ID Date Data Source [id number] 03/01/2019 11:03:00 PM [facility] Name Value Range Interpretation Description Data Sup porting Code Source(s) Document(s ) Methicillin MRSA TARGET [facility] resistant DNA DETECTED [facility] aureus (MRSA) DNA [Presence] in Unspecified specimen by Probe and target amplification method Methicillin PATIENT IS [facility] resistant PRESUMED [facility] POSITIVE FOR Hospital aureus (MRSA) MRSA DNA [Presence] COLONIZATION in Unspecified specimen by Probe and target amplification method ID Date Data Source [id number] 03/01/2019 11:03:00 PM EST [facility] Name Value Range Interpretation Description Data Sup porting Code Source(s) Document(s ) Methicillin MRSA TARGET [facility] resistant DNA DETECTED [facility] aureus (MRSA) DNA [Presence] in Unspecified specimen by Probe and target amplification method Methicillin PATIENT IS [facility] resistant PRESUMED [facility] POSITIVE FOR Hospital aureus (MRSA) MRSA DNA [Presence] COLONIZATION in Unspecified specimen by Probe and target amplification method ID Date Data Source [id number] 03/01/2019 10:53:00 PM EST [facility] CUT-OFF >= 25 NG/ML.THE FINDINGS [...] rce(s) Supporting Document(s ) PCP (UR) NEGATIVE [facility] ID Date Data Source [id number] 03/01/2019 10:53:00 PM EST [facility] CUT-OFF >= 50 NG/ML. Name Value Range Interpretation Code Description Data Bryanna rce(s) Supporting Document(s ) THC (UR) NEGATIVE [facility] ID Date Data Source [id number] 03/01/2019 10:53:00 PM EST [facility] CUT-OFF >= 300 NG/ML. Name Value Range Interpretation Description Data Sup porting Code Source(s) Document(s ) OPIATES (UR) NEGATIVE [facility] ID Date Data Source [id number] 03/01/2019 10:53:00 PM EST [facility] CUT-OFF >= 300 NG/ML. Name Value Range Interpretation Description Data Sup porting Code Source(s) Document(s ) COCAINE (UR) NEGATIVE [facility] ID Date Data Source [id number] 03/01/2019 10:53:00 PM [facility] CUT-OFF >= 200 NG/ML. Name Value Range Interpretation Description Data Sup porting Code Source(s) Document(s ) BENZODIAZEPINES NEGATIVE [facility] (UR) [facility] ID Date Data Source [id number] 03/01/2019 10:53:00 PM [facility] CUT-OFF >= 200 NG/ML. Name Value Range Interpretation Description Data Sup porting Code Source(s) Document(s ) BARBITURATES NEGATIVE [facility] (UR) Hospital ID Date Data Source [id number] 03/01/2019 10:53:00 PM [facility] CUT-OFF >= 1000 NG/ML. Name Value Range Interpretation Description Data Sup porting Code Source(s) Document(s ) AMPHETAMINES NEGATIVE [facility] (UR) Hospital ID Date Data Source [id number] 03/01/2019 10:53:00 PM [facility] Name Value Range Interpretation Description Data Sup porting Code Source(s) Document(s ) Leukocyte NEGATIVE [facility] esterase Hospital [Presence] in Urine by Test strip ID Date Data Source [id number] 03/01/2019 10:53:00 PM [facility] Name Value Range Interpretation Description Data Sup porting Code Source(s) Document(s ) URINE NEGATIVE [facility] NITRITES Hospital ID Date Data Source [id number] 03/01/2019 10:53:00 PM [facility] Name Value Range Interpretation Description Data Sup porting Code Source(s) Document(s ) Erythrocytes NEGATIVE [facility] [#/volume] in Hospital Urine by Test strip ID Date Data Source [id number] 03/01/2019 10:53:00 PM EST [facility] Name Value Range Interpretation Code Description Data Bryanna rce(s) Supporting Document(s ) Bilirubin. NEGATIVE [facility] total Hospital [Presence] in Urine by Test strip ID Date Data Source [id number] 03/01/2019 10:53:00 PM EST [facility] Name Value Range Interpretation Description Data Sup porting Code Source(s) Document(s ) Urobilinogen 1.0 [facility] [Units/volume] mg/dL Hospital in Urine by Test strip ID Date Data Source [id number] 03/01/2019 10:53:00 PM EST [facility] Name Value Range Interpretation Description Data Sup porting Code Source(s) Document(s ) Ketones NEGATIVE [facility] [Mass/volume Hospital ] in Urine by Test strip ID Date Data Source [id number] 03/01/2019 10:53:00 PM EST [facility] Name Value Range Interpretation Description Data Sup porting Code Source(s) Document(s ) Glucose NEGATIVE [facility] [Mass/volume Hospital ] in Urine by Test strip ID Date Data Source [id number] 03/01/2019 10:53:00 PM EST [facility] Name Value Range Interpretation Description Data Sup porting Code Source(s) Document(s ) Protein NEGATIVE [facility] [Presence] Hospital in Urine by Test strip ID Date Data Source [id number] 03/01/2019 10:53:00 PM EST [facility] Name Value Range Interpretation Code Description Data Bryanna rce(s) Supporting Document(s ) pH of Urine 8.5 [facility] by Test Hospital strip ID Date Data Source [id number] 03/01/2019 10:53:00 PM EST [facility] Name Value Range Interpretation Code Description Data Supporting Source(s) Document(s ) Specific 1.011 [facility] gravity of Hospital Urine by Test strip ID Date Data Source [id number] 03/01/2019 10:53:00 PM [facility] Name Value Range Interpretation Description Data Sup porting Code Source(s) Document(s ) Clarity in Urine CLEAR [facility] automated ID Date Data Source [id number] 03/01/2019 10:53:00 PM [facility] Name Value Range Interpretation Code Description Data Bryanna rce(s) Supporting Document(s ) Color of YELLOW [facility] Urine Hospital ID Date Data Source [id number] 03/01/2019 09:53:00 PM [facility] NOTIFICATION AND READ BACK OF CRITICAL R ESULTS TO Dr. Gunnar Carlson ON [facility] AT 2233 ON 03/01/19 BY Moshe Baker.REPORTED CRITICAL VALUES SHOULD BE INTERPRETED WITHIN CLINICAL CONTEXT. Name Value Range Interpretation Description Data Sup porting Code Source(s) Document(s ) Ammonia 117 [place] [Moles/volum mmol/L Hospital e] in Plasma ID Date Data Source [id number] 03/01/2019 09:53:00 PM [facility] NOTIFICATION AND READ BACK OF CRITICAL R ESULTS TO Dr. Gunnar Carlson ON [facility] AT 2233 ON 03/01/19 BY Moshe Baker.REPORTED CRITICAL VALUES SHOULD BE INTERPRETED WITHIN CLINICAL CONTEXT. Name Value Range Interpretation Description Data Sup porting Code Source(s) Document(s ) Ammonia 117 [place] [Moles/volum mmol/L Hospital e] in Plasma ID Date Data Source [id number] 03/01/2019 07:40:00 PM [facility] Name Value Range Interpretation Description Data Sup porting Code Source(s) Document(s ) Thyrotropin 1.691 [place] [Units/volume] u[IU]/mL Hospital in Serum or Plasma by Detection limit <= 0.005 mIU/L ID Date Data Source [id number] 03/01/2019 07:40:00 PM [facility] Name Value Range Interpretation Description Data Sup porting Code Source(s) Document(s ) Thyrotropin 1.691 [place] [Units/volume] u[IU]/mL Hospital in Serum or Plasma by Detection limit <= 0.005 mIU/L ID Date Data Source [id number] 03/01/2019 05:08:00 AM [facility] Name Value Range Interpretation Description Data Sup porting Code Source(s) Document(s ) Aspartate 42 U/L [facility] aminotransferase [facility] [Enzymatic Hospital activity/volume] in Serum or Plasma ID Date Data Source [id number] 03/01/2019 05:08:00 AM [facility] Name Value Range Interpretation Description Data Sup porting Code Source(s) Document(s ) Alanine 32 U/L [facility] aminotransferase [facility] [Enzymatic Hospital activity/volume] in Serum or Plasma ID Date Data Source [id number] 03/01/2019 05:08:00 AM [facility] Value Range Interpretation Description Data Sup porting Code Source(s) Document(s ) Alkaline 85 U/L [place] phosphatase [facility] [Enzymatic activity/volume ] in Serum or Plasma ID Date Data Source [id number] 03/01/2019 05:08:00 AM [facility] Value Range Interpretation Description Data Sup porting Code Source(s) Document(s ) Bilirubin.t 1.1 mg/dL [facility] [Mass/volum e] in Serum or Plasma ID Date Data Source [id number] 03/01/2019 05:08:00 AM [facility] Value Range Interpretation Code Description Data Bryanna rce(s) Supporting Document(s ) Albumin/Glob 1.1 [place] ulin [[facility] Ratio] in Serum or Plasma ID Date Data Source [id number] 03/01/2019 05:08:00 AM [facility] Name Value Range Interpretation Description Data Sup porting Code Source(s) Document(s ) Albumin 3.3 g/dL [place] [[facility] ] in Serum or Plasma ID Date Data Source [id number] 03/01/2019 05:08:00 AM [facility] Name Value Range Interpretation Description Data Sup porting Code Source(s) Document(s ) Protein 6.3 g/dL [place] [[facility] ] in Serum or Plasma ID Date Data Source [id number] 03/01/2019 05:08:00 AM [facility] Value Range Interpretation Description Data Sup porting Code Source(s) Document(s ) Calcium 8.6 mg/dL [place] [[facility] ] in Serum or Plasma ID Date Data Source [id number] 03/01/2019 05:08:00 AM [facility] Name Value Range Interpretation Code Description Data Bryanna rce(s) Supporting Document(s ) Urea 20.0 [place] nitrogen/[facility] atinine [Mass Ratio] in Serum or Plasma ID Date Data Source [id number] 03/01/2019 05:08:00 AM [facility] Name Value Range Interpretation Description Data Sup porting Code Source(s) Document(s ) Creatinine 0.7 mg/dL [place] [[facility]] Hospital in Serum or Plasma ID Date Data Source [id number] 03/01/2019 05:08:00 AM [facility] Name Value Range Interpretation Description Data Sup porting Code Source(s) Document(s ) Urea 14 mg/dL [place] nitrogen Hospital [Mass/volume ] in Serum or Plasma ID Date Data Source [id number] 03/01/2019 05:08:00 AM [facility] Hospital Name Value Range Interpretation Code Description Data Bryanna rce(s) Supporting Document(s ) Anion gap in 12 [place] Serum or Hospital Plasma ID Date Data Source [id number] 03/01/2019 05:08:00 AM [facility] Hospital Name Value Range Interpretation Description Data Sup porting Code Source(s) Document(s ) Carbon 26 mmol/L [place] dioxide, Hospital total [Moles/volu me] in Serum or Plasma ID Date Data Source [id number] 03/01/2019 05:08:00 AM [facility] Name Value Range Interpretation Description Data Sup porting Code Source(s) Document(s ) Chloride 105 [place] [Moles/volum mmol/L Hospital e] in Serum or Plasma ID Date Data Source [id number] 03/01/2019 05:08:00 AM [facility] Hospital Name Value Range Interpretation Description Data Sup porting Code Source(s) Document(s ) Potassium 4.2 [place] [Moles/volume mmol/L Hospital ] in Serum or Plasma ID Date Data Source [id number] 03/01/2019 05:08:00 AM EST [place] [facility] Name Value Range Interpretation Description Data Sup porting Code Source(s) Document(s ) Sodium 139 mmol/L [place] [Moles/volu Hospital me] in Serum or Plasma ID Date Data Source [id number] 03/01/2019 05:08:00 AM [facility] Hospital Name Value Range Interpretation Description Data Sup porting Code Source(s) Document(s ) Glucose 251 mg/dL [place] [[facility] ] in Serum or Plasma ID Date Data Source [id number] 03/01/2019 05:08:00 AM [facility] Name Value Range Interpretation Code Description Data Supporting Source(s) Document(s ) NUCLEATED RBCS 0.0 % [place] (AUTO Hospital DIFF%)DIS ID Date Data Source [id number] 03/01/2019 05:08:00 AM [facility] Name Value Range Interpretation Description Data Sup porting Code Source(s) Document(s ) Differential AUTOMATED [place] cell count [facility] method - Blood ID Date Data Source [id number] 03/01/2019 05:08:00 AM [facility] Name Value Range Interpretation Description Data Sup porting Code Source(s) Document(s ) Immature 0.01 [place] granulocytes 10*3/uL Hospital [#/volume] in Blood by Automated count ID Date Data Source [id number] 03/01/2019 05:08:00 AM [facility] Name Value Range Interpretation Description Data Sup porting Code Source(s) Document(s ) Basophils 0.03 [place] [#/volume] in 10*3/uL Hospital Blood by Automated count ID Date Data Source [id number] 03/01/2019 05:08:00 AM [facility] Name Value Range Interpretation Description Data Sup porting Code Source(s) Document(s ) Eosinophils 0.21 [place] [#/volume] in 10*3/uL Hospital Blood by Automated count ID Date Data Source [id number] 03/01/2019 05:08:00 AM [facility] Name Value Range Interpretation Description Data Sup porting Code Source(s) Document(s ) Monocytes 0.57 [place] [#/volume] in 10*3/uL Hospital Blood by Automated count ID Date Data Source [id number] 03/01/2019 05:08:00 AM [facility] Name Value Range Interpretation Description Data Sup porting Code Source(s) Document(s ) Lymphocytes 1.68 [place] [#/volume] in 10*3/uL [facility] Blood by Automated count ID Date Data Source [id number] 03/01/2019 05:08:00 AM [facility] Value Range Interpretation Description Data Sup porting Code Source(s) Document(s ) Neutrophils 2.58 [place] [#/volume] in 10*3/uL [facility] Blood by Automated count ID Date Data Source [id number] 03/01/2019 05:08:00 AM [facility] Value Range Interpretation Description Data Sup porting Code Source(s) Document(s ) Nucleated 0.0 % [place] erythrocytes/10 Hospital 0 leukocytes [Ratio] in Blood by Automated count ID Date Data Source [id number] 03/01/2019 05:08:00 AM [facility] Value Range Interpretation Description Data Sup porting Code Source(s) Document(s ) Immature 0.2 % [place] granulocytes/10 Hospital 0 leukocytes in Blood by Automated count ID Date Data Source [id number] 03/01/2019 05:08:00 AM [facility] Value Range Interpretation Description Data Sup porting Code Source(s) Document(s ) Basophils/100 0.6 % [place] leukocytes in [facility] Blood by Automated count ID Date Data Source [id number] 03/01/2019 05:08:00 AM [facility] Value Range Interpretation Description Data Sup porting Code Source(s) Document(s ) Eosinophils/100 4.1 % [place] leukocytes in Hospital Blood by Automated count ID Date Data Source [id number] 03/01/2019 05:08:00 AM [facility] Value Range Interpretation Description Data Sup porting Code Source(s) Document(s ) Monocytes/100 11.2 % [place] leukocytes in Hospital Blood by Automated count ID Date Data Source [id number] 03/01/2019 05:08:00 AM [facility] Name Value Range Interpretation Description Data Sup porting Code Source(s) Document(s ) Lymphocytes/10 33.1 % [place] 0 leukocytes Hospital in Blood by Automated count ID Date Data Source [id number] 03/01/2019 05:08:00 AM [facility] Hospital Name Value Range Interpretation Description Data Sup porting Code Source(s) Document(s ) Neutrophils/10 50.8 % [place] 0 leukocytes Hospital in Blood by Automated count ID Date Data Source [id number] 03/01/2019 05:08:00 AM [facility] Name Value Range Interpretation Description Data Sup porting Code Source(s) Document(s ) Platelet mean 11.8 fL [place] volume Hospital [Entitic volume] in Blood by Automated count ID Date Data Source [id number] 03/01/2019 05:08:00 AM [facility] Value Range Interpretation Description Data Sup porting Code Source(s) Document(s ) Platelets 245 [place] [#/volume] in 10*3/uL Hospital Blood by Automated count ID Date Data Source [id number] 03/01/2019 05:08:00 AM [facility] Name Value Range Interpretation Description Data Sup porting Code Source(s) Document(s ) Erythrocyte 14.7 % [place] distribution Hospital width [Ratio] by Automated count ID Date Data Source [id number] 03/01/2019 05:08:00 AM [facility] Name Value Range Interpretation Description Data Sup porting Code Source(s) Document(s ) Erythrocyte mean 33.6 [place] corpuscular g/dL Hospital hemoglobin concentration [Mass/volume] by Automated count ID Date Data Source [id number] 03/01/2019 05:08:00 AM [facility] Name Value Range Interpretation Description Data Sup porting Code Source(s) Document(s ) Erythrocyte 29.6 pg [facility] corpuscular hemoglobin [Entitic mass] by Automated count ID Date Data Source [id number] 03/01/2019 05:08:00 AM [facility] Name Value Range Interpretation Description Data Sup porting Code Source(s) Document(s ) Erythrocyte 88.1 fL [facility] Hospital corpuscular volume [Entitic volume] by Automated count ID Date Data Source [id number] 03/01/2019 05:08:00 AM [facility] Value Range Interpretation Description Data Sup porting Code Source(s) Document(s ) Hematocrit 34.8 % [place] [Volume Hospital Fraction] of Blood by Automated count ID Date Data Source [id number] 03/01/2019 05:08:00 AM [facility] Value Range Interpretation Description Data Sup porting Code Source(s) Document(s ) Hemoglobin 11.7 g/dL [place] [Mass/volume] Hospital in Blood ID Date Data Source [id number] 03/01/2019 05:08:00 AM [facility] Value Range Interpretation Description Data Sup porting Code Source(s) Document(s ) Erythrocytes 3.95 [place] [#/volume] in 10*6/uL Hospital Blood by Automated count ID Date Data Source [id number] 03/01/2019 05:08:00 AM [facility] Value Range Interpretation Description Data Sup porting Code Source(s) Document(s ) Leukocytes 5.1 [place] [#/volume] in 10*3/uL Hospital Blood by Automated count ID Date Data Source [id number] 02/15/2019 12:00:00 PM [facility] Informatics Analyst:SAUNDRA HARRIET Name Value Range Interpretation Description Data Sup porting Code Source(s) Document(s ) Glucose 353 mg/dL [place] [Mass/volume] Hospital in Capillary blood by Glucometer ID Date Data Source [id number] 02/15/2019 08:01:00 AM [facility] Name Value Range Interpretation Description Data Sup porting Code Source(s) Document(s ) GLUCOSE RN Notified [facility] ID Date Data Source [id number] 02/15/2019 07:33:00 AM [facility] UNITS ARE IN ml/min/1.73m2.IF PATIENT IS -[place], MULTIPLY REPORTED RESULT BY 1.21. Name Value Range Interpretation Description Data Sup porting Code Source(s) Document(s ) Glomerular > 60 [place] filtration mL/min Hospital rate/1.73 sq M.predicted [Volume Rate/Area] in Serum or Plasma by Creatinine-bas ed formula (MDRD) ID Date Data Source [id number] 02/15/2019 07:33:00 AM [facility] UNITS ARE IN ml/min/1.73m2.IF PATIENT IS -[place], MULTIPLY REPORTED RESULT BY 1.21. Name Value Range Interpretation Description Data Sup porting Code Source(s) Document(s ) Glomerular > 60 [place] filtration mL/min Hospital rate/1.73 sq M.predicted [Volume Rate/Area] in Serum or Plasma by Creatinine-bas ed formula (MDRD) ID Date Data Source [id number] 02/15/2019 07:33:00 AM [facility] Name Value Range Interpretation Description Data Sup porting Code Source(s) Document(s ) Calcium 8.5 mg/dL [place] [Mass[facility]volume Hospital ] in Serum or Plasma ID Date Data Source [id number] 02/15/2019 07:33:00 AM [facility] UNITS ARE IN ml/min/1.73m2.IF PATIENT IS -[place], MULTIPLY REPORTED RESULT BY 1.21. Name Value Range Interpretation Description Data Sup porting Code Source(s) Document(s ) Glomerular > 60 [place] filtration mL/min Hospital rate/1.73 sq M.predicted [Volume Rate/Area] in Serum or Plasma by Creatinine-bas ed formula (MDRD) ID Date Data Source [id number] 02/15/2019 07:33:00 AM [facility] Name Value Range Interpretation Code Description Data Bryanna rce(s) Supporting Document(s ) Urea 16.3 [place] nitrogen/Cre Hospital atinine [Mass Ratio] in Serum or Plasma ID Date Data Source [id number] 02/15/2019 07:33:00 AM [facility] Value Range Interpretation Description Data Sup porting Code Source(s) Document(s ) Creatinine 0.8 mg/dL [place] [Mass/volume] Hospital in Serum or Plasma ID Date Data Source [id number] 02/15/2019 07:33:00 AM [facility] Name Value Range Interpretation Description Data Sup porting Code Source(s) Document(s ) Urea 13 mg/dL [place] nitrogen Hospital [Mass/volume ] in Serum or Plasma ID Date Data Source [id number] 02/15/2019 07:33:00 AM [facility] Name Value Range Interpretation Code Description Data Bryanna rce(s) Supporting Document(s ) Anion gap in 11 [place] Serum or [facility] Plasma ID Date Data Source [id number] 02/15/2019 07:33:00 AM [facility] Name Value Range Interpretation Description Data Sup porting Code Source(s) Document(s ) Carbon 31 mmol/L [place] dioxide, Hospital total [Moles/volu me] in Serum or Plasma ID Date Data Source [id number] 02/15/2019 07:33:00 AM [facility] Name Value Range Interpretation Description Data Sup porting Code Source(s) Document(s ) Chloride 100 [place] [Moles/volum mmol/L Hospital e] in Serum or Plasma ID Date Data Source [id number] 02/15/2019 07:33:00 AM [facility] Name Value Range Interpretation Description Data Sup porting Code Source(s) Document(s ) Potassium 4.3 [place] [Moles/volume mmol/L Hospital ] in Serum or Plasma ID Date Data Source [id number] 02/15/2019 07:33:00 AM [facility] Name Value Range Interpretation Description Data Sup porting Code Source(s) Document(s ) Sodium 138 mmol/L [place] [Moles/volu Hospital me] in Serum or Plasma ID Date Data Source [id number] 02/15/2019 07:33:00 AM [facility] NOTIFICATION AND READ BACK OF CRITICAL R ESULTS TO GEREMIAS SULLIVAN R.N/EVELIA AT 0821 ON 02/15/19 BY Sd Masterson.PLEASE NOTE CHANGE IN CRITICAL GLUCOSE VALUES EFFECTIVE 04/22/17.REPORTED CRITICAL VALUES SHOULD B E INTERPRETED WITHIN CLINICAL CONTEXT. Name Value Range Interpretation Description Data Sup porting Code Source(s) Document(s ) Glucose 581 mg/dL [place] [Mass/volume Hospital ] in Serum or Plasma ID Date Data Source [id number] 02/14/2019 04:13:00 PM [facility] Name Value Range Interpretation Description Data Sup porting Code Source(s) Document(s ) Ammonia 50 mmol/L [place] [Moles/volum Hospital e] in Plasma ID Date Data Source [id number] 02/14/2019 10:52:00 AM [facility] Name Value Range Interpretation Code Description Data Bryanna rce(s) Supporting Document(s ) Lipase 20 U/L [place] [Enzymatic Hospital activity/vo lume] in Serum or Plasma ID Date Data Source [id number] 02/14/2019 10:52:00 AM [facility] REFERENCE RANGES: NONE DETECTED <20 MG/DL NONE TO MILD EUPHORIA 20-49 MG/DL MILD EUPHORIA 50-99 MG/DL MODERATE EUPHORIA 100-149 MG/DL INTOXICATION 150-300 MG/DL Name Value Range Interpretation Description Data Sup porting Code Source(s) Document(s ) Ethanol < 20 [place] [Mass/volume mg/dL Hospital ] in Serum or Plasma ID Date Data Source [id number] 02/14/2019 10:52:00 AM [facility] TEST RESULT IS A TOTAL TRICYCLIC [...] Code Source(s) Document(s ) TRICYCLIC < 80 [place] ANTIDEPRESSANT ng/mL Hospital ID Date Data Source [id number] 02/14/2019 10:52:00 AM [facility] REFERENCE RANGES: ANALGESIC: 0.0 - 10.0 MG/DL. ARTHRITIC THERAPY: 15.0 - 30.0 MG/DL. Name Value Range Interpretation Description Data Sup porting Code Source(s) Document(s ) Salicylates < 3.0 [place] [Mass/volume] mg/dL Hospital in Serum or Plasma ID Date Data Source [id number] 02/14/2019 10:52:00 AM [facility] THERAPEUTIC RANGE: 10.0-30.0 UG/MLTOXIC RANGE: 4 HRS AFTER INGESTION >150 UG/ML 12 HRS AFTER INGESTION >35 UG/ML Name Value Range Interpretation Description Data Sup porting Code Source(s) Document(s ) ACETAMINOPHEN < 10.0 [place] ug/mL Hospital ID Date Data Source [id number] 02/14/2019 10:52:00 AM [facility] Name Value Range Interpretation Code Description Data Bryanna rce(s) Supporting Document(s ) Lipase 20 U/L [place] [Enzymatic Hospital activity/vo lume] in Serum or Plasma ID Date Data Source [id number] 02/14/2019 10:52:00 AM [facility] CUT-OFF >= 25 NG/ML.THE FINDINGS OF [...] rce(s) Supporting Document(s ) PCP (UR) NEGATIVE [place] [facility] ID Date Data Source [id number] 02/14/2019 10:52:00 AM [facility] CUT-OFF >= 50 NG/ML. Name Value Range Interpretation Code Description Data Bryanna rce(s) Supporting Document(s ) THC (UR) NEGATIVE [place] [facility] ID Date Data Source [id number] 02/14/2019 10:52:00 AM [facility] CUT-OFF >= 300 NG/ML. Name Value Range Interpretation Description Data Sup porting Code Source(s) Document(s ) OPIATES (UR) NEGATIVE [facility] ID Date Data Source [id number] 02/14/2019 10:52:00 AM [facility] CUT-OFF >= 300 NG/ML. Name Value Range Interpretation Description Data Sup porting Code Source(s) Document(s ) COCAINE (UR) POSITIVE [facility] ID Date Data Source [id number] 02/14/2019 10:52:00 AM [facility] CUT-OFF >= 200 NG/ML. Name Value Range Interpretation Description Data Sup porting Code Source(s) Document(s ) BENZODIAZEPINES NEGATIVE [place] (UR) [facility] ID Date Data Source [id number] 02/14/2019 10:52:00 AM [facility] CUT-OFF >= 200 NG/ML. Name Value Range Interpretation Description Data Sup porting Code Source(s) Document(s ) BARBITURATES NEGATIVE [place] (UR) Hospital ID Date Data Source [id number] 02/14/2019 10:52:00 AM [facility] CUT-OFF >= 1000 NG/ML. Name Value Range Interpretation Description Data Sup porting Code Source(s) Document(s ) AMPHETAMINES NEGATIVE [place] () Hospital ID Date Data Source [id number] 02/14/2019 10:52:00 AM [facility] REFERENCE RANGES: NONE DETECTED <20 MG/DL NONE TO MILD EUPHORIA 20-49 MG/DL MILD EUPHORIA 50-99 MG/DL MODERATE EUPHORIA 100-149 MG/DL INTOXICATION 150-300 MG/DL Name Value Range Interpretation Description Data Sup porting Code Source(s) Document(s ) Ethanol < 20 [place] [Mass/volume mg/dL Hospital ] in Serum or Plasma ID Date Data Source [id number] 02/14/2019 10:52:00 AM [facility] TEST RESULT IS A TOTAL TRICYCLIC [...] Code Source(s) Document(s ) TRICYCLIC < 80 [place] ANTIDEPRESSANT ng/mL Hospital ID Date Data Source [id number] 02/14/2019 10:52:00 AM [facility] REFERENCE RANGES: ANALGESIC: 0.0 - 10.0 MG/DL. ARTHRITIC THERAPY: 15.0 - 30.0 MG/DL. Name Value Range Interpretation Description Data Sup porting Code Source(s) Document(s ) Salicylates < 3.0 [place] [Mass/volume] mg/dL Hospital in Serum or Plasma ID Date Data Source [id number] 02/14/2019 10:52:00 AM [facility] THERAPEUTIC RANGE: 10.0-30.0 UG/MLTOXIC RANGE: 4 HRS AFTER INGESTION >150 UG/ML 12 HRS AFTER INGESTION >35 UG/ML Name Value Range Interpretation Description Data Sup porting Code Source(s) Document(s ) ACETAMINOPHEN < 10.0 [place] ug/mL Hospital ID Date Data Source [id number] 02/14/2019 10:52:00 AM [facility] Name Value Range Interpretation Code Description Data Bryanna rce(s) Supporting Document(s ) Lipase 20 U/L [place] [Enzymatic Hospital activity/vo lume] in Serum or Plasma ID Date Data Source [id number] 02/14/2019 10:52:00 AM [facility] Name Value Range Interpretation Description Data Sup porting Code Source(s) Document(s ) Aspartate 79 U/L [facility] aminotransferase [facility] [Enzymatic Hospital activity/volume] in Serum or Plasma ID Date Data Source [id number] 02/14/2019 10:52:00 AM [facility] Name Value Range Interpretation Description Data Sup porting Code Source(s) Document(s ) Alanine 36 U/L [place] aminotransferase [facility] [Enzymatic Hospital activity/volume] in Serum or Plasma ID Date Data Source [id number] 02/14/2019 10:52:00 AM [facility] Name Value Range Interpretation Description Data Sup porting Code Source(s) Document(s ) Alkaline 118 U/L [place] phosphatase Hospital [Enzymatic activity/volume ] in Serum or Plasma ID Date Data Source [id number] 02/14/2019 10:52:00 AM [facility] Name Value Range Interpretation Description Data Sup porting Code Source(s) Document(s ) Bilirubin.t 1.2 mg/dL [facility] [Mass/volum e] in Serum or Plasma ID Date Data Source [id number] 02/14/2019 10:52:00 AM [facility] Name Value Range Interpretation Code Description Data Bryanna rce(s) Supporting Document(s ) [facility] in Serum or Plasma ID Date Data Source [id number] 02/14/2019 10:52:00 AM [facility] Name Value Range Interpretation Description Data Sup porting Code Source(s) Document(s ) Albumin 3.8 g/dL [place] [Mass/volume Hospital ] in Serum or Plasma ID Date Data Source [id number] 02/14/2019 10:52:00 AM [facility] Name Value Range Interpretation Description Data Sup porting Code Source(s) Document(s ) Protein 7.2 g/dL [place] [Mass/volume Hospital ] in Serum or Plasma ID Date Data Source [id number] 02/14/2019 10:52:00 AM [facility] Name Value Range Interpretation Description Data Sup porting Code Source(s) Document(s ) Leukocyte NEGATIVE [facility] Hospital [Presence] in Urine by Test strip ID Date Data Source [id number] 02/14/2019 10:52:00 AM [facility] Hospital Name Value Range Interpretation Description Data Sup porting Code Source(s) Document(s ) URINE NEGATIVE [place] NITRITES Hospital ID Date Data Source [id number] 02/14/2019 10:52:00 AM [facility] Hospital Name Value Range Interpretation Description Data Sup porting Code Source(s) Document(s ) Erythrocytes NEGATIVE [place] [#/volume] in Hospital Urine by Test strip ID Date Data Source [id number] 02/14/2019 10:52:00 AM [facility] Name Value Range Interpretation Code Description Data Bryanna rce(s) Supporting Document(s ) Bilirubin. NEGATIVE [place] total [facility] [Presence] in Urine by Test strip ID Date Data Source [id number] 02/14/2019 10:52:00 AM [facility] Name Value Range Interpretation Description Data Sup porting Code Source(s) Document(s ) Urobilinogen 1.0 [place] [Units/volume] mg/dL Hospital in Urine by Test strip ID Date Data Source [id number] 02/14/2019 10:52:00 AM [facility] Hospital Name Value Range Interpretation Description Data Sup porting Code Source(s) Document(s ) Ketones NEGATIVE [place] [Mass/volume Hospital ] in Urine by Test strip ID Date Data Source [id number] 02/14/2019 10:52:00 AM [facility] Hospital Name Value Range Interpretation Code Description Data Bryanna rce(s) Supporting Document(s ) Glucose 3+ [place] [Mass/volume Hospital ] in Urine by Test strip ID Date Data Source [id number] 02/14/2019 10:52:00 AM [facility] Hospital Name Value Range Interpretation Description Data Sup porting Code Source(s) Document(s ) Protein NEGATIVE [place] [Presence] [facility] in Urine by Test strip ID Date Data Source [id number] 02/14/2019 10:52:00 AM EST [place] [facility] Name Value Range Interpretation Code Description Data Bryanna rce(s) Supporting Document(s ) pH of Urine 6.5 [place] by Test Hospital strip ID Date Data Source [id number] 02/14/2019 10:52:00 AM EST [facility] [facility] Name Value Range Interpretation Code Description Data Supporting Source(s) Document(s ) Specific 1.039 [place] gravity of Hospital Urine by Test strip ID Date Data Source [id number] 02/14/2019 10:52:00 AM EST [facility] [facility] Name Value Range Interpretation Description Data Sup porting Code Source(s) Document(s ) Clarity in Urine CLEAR [place] by [facility] automated ID Date Data Source [id number] 02/14/2019 10:52:00 AM [facility] Hospital Name Value Range Interpretation Code Description Data Bryanna rce(s) Supporting Document(s ) Color of YELLOW [place] U[facility] ID Date Data Source [id number] 02/14/2019 10:52:00 AM EST [facility] Name Value Range Interpretation Description Data Sup porting Code Source(s) Document(s ) Platelet mean 11.9 fL [place] volume Hospital [Entitic volume] in Blood by Automated count ID Date Data Source [id number] 02/14/2019 10:52:00 AM EST [facility] [facility] Name Value Range Interpretation Description Data Sup porting Code Source(s) Document(s ) Platelets 198 [place] [#/volume] in 10*3/uL Hospital Blood by Automated count ID Date Data Source [id number] 02/14/2019 10:52:00 AM [facility] Name Value Range Interpretation Description Data Sup porting Code Source(s) Document(s ) Erythrocyte 13.7 % [facility] Hospital width [Ratio] by Automated count ID Date Data Source [id number] 02/14/2019 10:52:00 AM [facility] Value Range Interpretation Description Data Sup porting Code Source(s) Document(s ) Erythrocyte mean 34.2 [place] corpuscular g/dL Hospital hemoglobin concentration [Mass/volume] by Automated count ID Date Data Source [id number] 02/14/2019 10:52:00 AM [facility] Value Range Interpretation Description Data Sup porting Code Source(s) Document(s ) Erythrocyte 29.6 pg [facility] corpuscular hemoglobin [Entitic mass] by Automated count ID Date Data Source [id number] 02/14/2019 10:52:00 AM [facility] Value Range Interpretation Description Data Sup porting Code Source(s) Document(s ) Erythrocyte 86.5 fL [facility] corpuscular volume [Entitic volume] by Automated count ID Date Data Source [id number] 02/14/2019 10:52:00 AM [facility] Value Range Interpretation Description Data Sup porting Code Source(s) Document(s ) Hematocrit 37.1 % [place] [Volume Hospital Fraction] of Blood by Automated count ID Date Data Source [id number] 02/14/2019 10:52:00 AM [facility] Value Range Interpretation Description Data Sup porting Code Source(s) Document(s ) Hemoglobin 12.7 g/dL [place] [Mass/volume] Hospital in Blood ID Date Data Source [id number] 02/14/2019 10:52:00 AM [facility] Value Range Interpretation Description Data Sup porting Code Source(s) Document(s ) Erythrocytes 4.29 [place] [#/volume] in 10*6/uL Hospital Blood by Automated count ID Date Data Source [id number] 02/14/2019 10:52:00 AM EST [place] [facility] Name Value Range Interpretation Description Data Sup porting Code Source(s) Document(s ) Leukocytes 5.3 [place] [#/volume] in 10*3/uL Hospital Blood by Automated count Procedure Social History Code Duration Value Status Description Data Source(s ) Smoking 01/18/2020 Ex-smoker completed Ex-smoker [place] 06:37:00 PM EDT (finding) (finding) Hospital Smoking 01/10/2020 Tobacco smoking completed Tobacco smoking [facility] 01:14:00 AM EDT consumption consumption [facility]osp[facility] unknown (finding) unknown (finding) Smoking 01/08/2020 Tobacco smoking completed Tobacco smoking [facility] 08:00:00 AM EDT consumption consumption Hospita [facility] unknown (finding) unknown (finding) Smoking 12/21/2019 Never smoked completed Never smoked [facility] 06:[facility]:00 AM EDT tobacco (finding) tobacco (find ing) Hospital Smoking 12/16/2019 Ex-smoker completed Ex-smoker [place] 03:47:00 AM EDT (finding) (finding) Hospital Smoking 11/30/2019 Ex-smoker completed Ex-smoker [place] 09:30:00 PM EDT (finding) (finding) Hospital Smoking 11/21/2019 Ex-smoker completed Ex-smoker [place] 01:19:00 AM EDT (finding) (finding) Hospital Smoking 10/26/2019 Ex-smoker completed Ex-smoker [place] 03:24:00 AM EDT (finding) (finding) Hospital Smoking 06/17/2019 Current some day completed Current some day [facility] 11:02:00 PM EST smoker smoker Hospital Smoking 05/26/2019 Never smoked completed Never smoked [facility] 08:05:00 AM EST tobacco (finding) tobacco (find ing) Hospital Smoking 05/19/2019 Ex-smoker completed Ex-smoker [place] 09:31:00 PM EST (finding) (finding) Hospital Smoking 04/16/2019 Never smoked completed Never smoked [facility] 12:50:00 PM EST tobacco (finding) tobacco (find ing) Hospital Smoking 03/02/2019 Never smoked completed Never smoked [facility] 03:31:00 PM EST tobacco (finding) tobacco (find ing) Hospital Vital Signs ID Date Data Source UNK Name Value Range Interpretation Code Description Data Source(s) Diastolic blood 76 mm[Hg] 76 mm[Hg] [facility] Hospital Systolic blood 116 mm[Hg] 116 mm[Hg] [facility] pressure Hospital Respiratory rate 18 /min 18 /min [facility] Heart rate 69 /min 69 /min [facility] Body temperature 36.52292 [place] 36.85886 Ashanti [facility] Body temperature 97.6 [degF] 97.6 [degF] [facility] Systolic blood 131 mm[Hg] 131 mm[Hg] [facility] pressure Hospital Diastolic blood 68 mm[Hg] 68 mm[Hg] [facility] Respiratory rate 15 /min 15 /min [facility] Heart rate 69 /min 69 /min [facility] Body mass index 20.0 kg/m2 20.0 kg/m2 [facility] (BMI) [Ratio] Hospital Body weight 110.23 [lb_av] 110.23 [lb_av] [facility] Diastolic blood 84 mm[Hg] 84 mm[Hg] [facility] Systolic blood 157 mm[Hg] 157 mm[Hg] [facility] pressure Hospital Respiratory rate 18 /min 18 /min [facility] Heart rate 60 /min 60 /min [facility] Body temperature 36.73922 Ashanti 36.83683 Ashanti [facility] Body temperature 97.6 [degF] 97.6 [degF] [facility] Body mass index 20.0 kg/m2 20.0 kg/m2 [facility] (BMI) [Ratio] Hospital Body weight 120.24 [lb_av] 120.24 [lb_av] [facility] Diastolic blood 87 mm[Hg] 87 mm[Hg] [facility] Hospital Systolic blood 142 mm[Hg] 142 mm[Hg] [facility] Hospital Respiratory rate 18 /min 18 /min [facility] Heart rate 55 /min 55 /min [facility] Body temperature 36.60870 Ashanti 36.37269 Ashanti [facility] Body temperature 97.8 [degF] 97.8 [degF] [facility] Body mass index 20.0 kg/m2 20.0 kg/m2 [facility] (BMI) [Ratio] Hospital Body weight 129.28 [lb_av] 129.28 [lb_av] [facility] Diastolic blood 90 mm[Hg] 90 mm[Hg] [facility] ins pressure Hospital Systolic blood 164 mm[Hg] 164 mm[Hg] [facility] Respiratory rate 18 /min 18 /min [facility] Heart rate 85 /min 85 /min [facility] Body temperature 36.80409 Ashanti 36.22607 Ashanti [facility] Body temperature 97.6 [degF] 97.6 [degF] [facility] Body mass index 19.0 kg/m2 19.0 kg/m2 [facility] (BMI) [Ratio] Hospital Body weight 121.25 [lb_av] 121.25 [lb_av] [facility] Diastolic blood 73 mm[Hg] 73 mm[Hg] [facility] pressure Hospital Systolic blood 153 mm[Hg] 153 mm[Hg] [facility] ns pressure Hospital Respiratory rate 18 /min 18 /min [facility] Heart rate 55 /min 55 /min [facility] Body temperature 36.57337 Ashanti 36.99641 Ashanti [facility] Body temperature 98.0 [degF] 98.0 [degF] [facility] Body mass index 20.2 kg/m2 20.2 kg/m2 [facility] ins (BMI) [Ratio] Hospital Body weight 125 [lb_av] 125 [lb_av] [facility] Diastolic blood 81 mm[Hg] 81 mm[Hg] [facility] pressure Hospital Systolic blood 121 mm[Hg] 121 mm[Hg] [facility] ns pressure Hospital Respiratory rate 18 /min 18 /min [facility] Heart rate 75 /min 75 /min [facility] Body temperature 36.70447 Ashanti 36.99159 Ashanti [facility] Body temperature 98.2 [degF] 98.2 [degF] [facility] Systolic blood 121 mm[Hg] 121 mm[Hg] [facility] Systolic blood 121 mm[Hg] 121 mm[Hg] [facility] Diastolic blood 72 mm[Hg] 72 mm[Hg] [facility] Diastolic blood 72 mm[Hg] 72 mm[Hg] [facility] pressure [facility] Respiratory rate 16 /min 16 /min [facility] Respiratory rate 16 /min 16 /min [facility] Heart rate 81 /min 81 /min [facility] Heart rate 81 /min 81 /min [facility] Systolic blood 121 mm[Hg] 121 mm[Hg] [facility] Systolic blood 121 mm[Hg] 121 mm[Hg] [facility] Diastolic blood 72 mm[Hg] 72 mm[Hg] [facility] Diastolic blood 72 mm[Hg] 72 mm[Hg] [facility] Respiratory rate 16 /min 16 /min [facility] Respiratory rate 16 /min 16 /min [facility] Heart rate 81 /min 81 /min [facility] Heart rate 81 /min 81 /min [facility] Systolic blood 121 mm[Hg] 121 mm[Hg] [facility] Systolic blood 121 mm[Hg] 121 mm[Hg] [facility] Diastolic blood 72 mm[Hg] 72 mm[Hg] [facility] Diastolic blood 72 mm[Hg] 72 mm[Hg] [facility] Respiratory rate 16 /min 16 /min [facility] Respiratory rate 16 /min 16 /min [facility] Heart rate 81 /min 81 /min [facility] Heart rate 81 /min 81 /min [facility] Systolic blood 124 mm[Hg] 124 mm[Hg] [facility] Diastolic blood 76 mm[Hg] 76 mm[Hg] [facility] Respiratory rate 15 /min 15 /min [facility] Heart rate 77 /min 77 /min [facility] Systolic blood 124 mm[Hg] 124 mm[Hg] [facility] Diastolic blood 76 mm[Hg] 76 mm[Hg] [facility] Respiratory rate 15 /min 15 /min [facility] Heart rate 77 /min 77 /min [facility] Body mass index 24.0 kg/m2 24.0 kg/m2 [facility] (BMI) [Ratio] Hospital Body weight 149.91 [lb_av] 149.91 [lb_av] [facility] Diastolic blood 72 mm[Hg] 72 mm[Hg] [facility] Systolic blood 132 mm[Hg] 132 mm[Hg] [facility] Respiratory rate 17 /min 17 /min [facility] Heart rate 76 /min 76 /min [facility] Body temperature 36.03803 Ashanti 36.74166 Ashanti [facility] Body temperature 98.0 [degF] 98.0 [degF] [facility] Body mass index 24.0 kg/m2 24.0 kg/m2 [facility] (BMI) [Ratio] Hospital Body weight 150.31 [lb_av] 150.31 [lb_av] [facility] Diastolic blood 73 mm[Hg] 73 mm[Hg] [facility] pressure Hospital Systolic blood 131 mm[Hg] 131 mm[Hg] [facility] Respiratory rate 18 /min 18 /min [facility] Heart rate 62 /min 62 /min [facility] Body temperature 37.46335 Ashanti 37.73435 Ashanti [facility] Body temperature 98.6 [degF] 98.6 [degF] [facility] Body mass index 20.0 kg/m2 20.0 kg/m2 [facility] (BMI) [Ratio] Hospital Body weight 125.31 [lb_av] 125.31 [lb_av] [facility] Diastolic blood 86 mm[Hg] 86 mm[Hg] [facility] pressure Hospital Systolic blood 156 mm[Hg] 156 mm[Hg] [facility] ns pressure Hospital Respiratory rate 18 /min 18 /min [facility] Heart rate 65 /min 65 /min [facility] Body temperature 36.73336 Ashanti 36.98624 Ashanti [facility] Body temperature 98.2 [degF] 98.2 [degF] [facility] Body mass index 20.0 kg/m2 20.0 kg/m2 [facility] (BMI) [Ratio] Hospital Body weight 125.27 [lb_av] 125.27 [lb_av] [facility] Diastolic blood 74 mm[Hg] 74 mm[Hg] [facility] pressure Hospital Systolic blood 136 mm[Hg] 136 mm[Hg] [facility] Respiratory rate 18 /min 18 /min [facility] Heart rate 67 /min 67 /min [facility] Body temperature 36.36684 Ashanti 36.09873 Ashanti [facility] Body temperature 98.3 [degF] 98.3 [degF] [facility] Body mass index 17.0 kg/m2 17.0 kg/m2 [facility] (BMI) [Ratio] Hospital Body weight 110.23 [lb_av] 110.23 [lb_av] [facility] Diastolic blood 88 mm[Hg] 88 mm[Hg] [facility] Systolic blood 147 mm[Hg] 147 mm[Hg] [facility] Respiratory rate 18 /min 18 /min [facility] Heart rate 65 /min 65 /min [facility] Body temperature 37.17023 Ashanti 37.01309 Ashanti [facility] Body temperature 98.7 [degF] 98.7 [degF] [facility] Body mass index 19.0 kg/m2 19.0 kg/m2 [facility] (BMI) [Ratio] Hospital Body weight 122.25 [lb_av] 122.25 [lb_av] [facility] Diastolic blood 93 mmHg 93 mmHg [facility] Systolic blood 157 mmHg 157 mmHg [facility] Respiratory rate 16 bpm 16 bpm [facility] Heart rate 75 bpm 75 bpm [facility] Body temperature 98.5 Fahrenheit 98.5 Fahrenh t [facility] Diastolic blood 95 mmHg 95 mmHg [facility] Systolic blood 145 mmHg 145 mmHg [facility] Respiratory rate 18 bpm 18 bpm [facility] Heart rate 86 bpm 86 bpm [facility] Body temperature 97.1 Fahrenheit 97.1 Fahrenh t [facility] Respiratory rate 18 bpm 18 bpm [facility] Body temperature 97.9 Fahrenheit 97.9 Fahrenh t [facility] Diastolic blood 97 mmHg 97 mmHg [facility] Systolic blood 152 mmHg 152 mmHg [facility] Heart rate 83 bpm 83 bpm [facility] Respiratory rate 18 bpm 18 bpm [facility] Body temperature 98.7 Fahrenheit 98.7 Fahrenh t [facility] Diastolic blood 79 mmHg 79 mmHg [facility] Systolic blood 131 mmHg 131 mmHg [facility] Heart rate 78 bpm 78 bpm [facility] Diastolic blood 90 mmHg 90 mmHg [facility] Systolic blood 141 mmHg 141 mmHg [facility] Heart rate 82 bpm 82 bpm [facility] Diastolic blood 77 mmHg 77 mmHg [facility] Systolic blood 136 mmHg 136 mmHg [facility] Respiratory rate 18 bpm 18 bpm [facility] Heart rate 93 bpm 93 bpm [facility] Body temperature 97.9 [facility] Body [facility] 129 lbs 129 lbs [facility] Diastolic blood 98 mmHg 98 mmHg [facility] Systolic blood 159 mmHg 159 mmHg [facility] Heart rate 104 bpm 104 bpm [facility] Diastolic blood 97 mmHg 97 mmHg [facility] Systolic blood 159 mmHg 159 mmHg [facility] Respiratory rate 18 bpm 18 bpm [facility] Heart rate 95 bpm 95 bpm [facility] Body temperature 98.6 [facility] 98.6 [facility] Diastolic blood 90 mm[Hg] 90 mm[Hg] [facility] Systolic blood 146 mm[Hg] 146 mm[Hg] [facility] Respiratory rate 18 /min 18 /min [facility] Heart rate 77 /min 77 /min [facility] Body temperature 36.30818 Ashanti 36.50460 Ashanti [facility] Body temperature 98.1 [degF] 98.1 [degF] [facility] Body mass index 19.0 kg/m2 19.0 kg/m2 [facility] (BMI) [Ratio] Hospital Body weight 122.25 [lb_av] 122.25 [lb_av] [facility] Diastolic blood 87 mmHg 87 mmHg [facility] Systolic blood 160 mmHg 160 mmHg [facility] Heart rate 112 bpm 112 bpm [facility] Diastolic blood 91 mmHg 91 mmHg [facility] Systolic blood 142 mmHg 142 mmHg [facility] Respiratory rate 18 bpm 18 bpm [facility] Heart rate 107 bpm 107 bpm [facility] Body temperature 97.3 [facility] 97.3 [facility] Diastolic blood 71 mm[Hg] 71 mm[Hg] [facility] Systolic blood 121 mm[Hg] 121 mm[Hg] [facility] Respiratory rate 18 /min 18 /min [facility] Heart rate 90 /min 90 /min [facility] Body temperature 36.68758 Ashanti 36.75702 Ashanti [facility] Body temperature 98.3 [degF] 98.3 [degF] [facility] Body mass index 24.0 kg/m2 24.0 kg/m2 [facility] (BMI) [Ratio] Hospital Body weight 139.99 [lb_av] 139.99 [lb_av] [facility] Diastolic blood 76 mm[Hg] 76 mm[Hg] [facility] Systolic blood 126 mm[Hg] 126 mm[Hg] [facility] Respiratory rate 18 /min 18 /min [facility] Heart rate 85 /min 85 /min [facility] Body temperature 37.73555 Ashanti 37.34081 Ashanti [facility] Body temperature 98.9 [degF] 98.9 [degF] [facility] Body mass index 21.0 kg/m2 21.0 kg/m2 [facility] (BMI) [Ratio] Hospital Body weight 130 [lb_av] 130 [lb_av] [facility] Diastolic blood 90 mm[Hg] 90 mm[Hg] [facility] pressure Hospital Systolic blood 159 mm[Hg] 159 mm[Hg] [facility] ns pressure Hospital Respiratory rate 18 /min 18 /min [facility] Heart rate 77 /min 77 /min [facility] Body temperature 36.29714 Ashanti 36.44954 Ashanti [facility] Body temperature 98.5 [degF] 98.5 [degF] [facility] Body mass index 20.0 kg/m2 20.0 kg/m2 [facility] (BMI) [Ratio] Hospital Body weight 129.28 [lb_av] 129.28 [lb_av] [facility] Diastolic blood 84 mm[Hg] 84 mm[Hg] [facility] pressure Hospital Systolic blood 136 mm[Hg] 136 mm[Hg] [facility] Respiratory rate 18 /min 18 /min [facility] Heart rate 68 /min 68 /min [facility] Body temperature 37.74388 Ashanti 37.58229 Ashanti [facility] Body temperature 98.7 [degF] 98.7 [degF] [facility] Body mass index 19.0 kg/m2 19.0 kg/m2 [facility] (BMI) [Ratio] Hospital Body weight 120.26 [lb_av] 120.26 [lb_av] [facility] Diastolic blood 87 mm[Hg] 87 mm[Hg] [facility] Systolic blood 140 mm[Hg] 140 mm[Hg] [facility] Respiratory rate 18 /min 18 /min [facility] Heart rate 83 /min 83 /min [facility] Body temperature 36.29980 Ashanti 36.34827 Ashanti [facility] Body temperature 98.3 [degF] 98.3 [degF] [facility] Body mass index 19.0 kg/m2 19.0 kg/m2 [facility] (BMI) [Ratio] Hospital Body weight 130.27 [lb_av] 130.27 [lb_av] [facility] Diastolic blood 103 mmHg 103 mmHg [facility] Systolic blood 183 mmHg 183 mmHg [facility] Respiratory rate 18 bpm 18 bpm [facility] Heart rate 75 bpm 75 bpm [facility] Body temperature 98.5 Fahrenheit 98.5 Fahrenh t [facility] Diastolic blood 93 mmHg 93 mmHg [facility] Systolic blood 175 mmHg 175 mmHg [facility] Respiratory rate 20 bpm 20 bpm [facility] Heart rate 86 bpm 86 bpm [facility] Diastolic blood 93 mmHg 93 mmHg [facility] Systolic blood 165 mmHg 165 mmHg [facility] Respiratory rate 20 bpm 20 bpm [facility] Heart rate 89 bpm 89 bpm [facility] Body temperature 97.1 Fahrenheit 97.1 Fahrenh t [facility] Diastolic blood 82 mmHg 82 mmHg [facility] Systolic blood 128 mmHg 128 mmHg [facility] Respiratory rate 17 bpm 17 bpm [facility] Heart rate 115 bpm 115 bpm [facility] Body temperature 97.4 Fahrenheit 97.4 Fahrenh t [facility] Diastolic blood 79 mmHg 79 mmHg [facility] Systolic blood 115 mmHg 115 mmHg [facility] Respiratory rate 17 bpm 17 bpm [facility] Heart rate 109 bpm 109 bpm [facility] Body temperature 97.4 Fahrenheit 97.4 Fahrenh t [facility] Diastolic blood 83 mm[Hg] 83 mm[Hg] [facility] Systolic blood 132 mm[Hg] 132 mm[Hg] [facility] Respiratory rate 20 /min 20 /min [facility] Heart rate 83 /min 83 /min [facility] Body temperature 36.66301 Ashanti 36.30039 Ashanti [facility] Body temperature 97.9 [degF] 97.9 [degF] [facility] Body mass index 25.8 kg/m2 25.8 kg/m2 [facility] (BMI) [Ratio] Hospital Body weight 160 [lb_av] 160 [lb_av] [facility] Diastolic blood 90 mmHg 90 mmHg [facility] Systolic blood 143 mmHg 143 mmHg [facility] Respiratory rate 18 bpm 18 bpm [facility] Heart rate 107 bpm 107 bpm [facility] Diastolic blood 71 mmHg 71 mmHg [facility] Systolic blood 111 mmHg 111 mmHg [facility] Respiratory rate 18 bpm 18 bpm [facility] Heart rate 101 bpm 101 bpm [facility] Diastolic blood 104 mmHg 104 mmHg [facility] Systolic blood 182 mmHg 182 mmHg [facility] Respiratory rate 20 bpm 20 bpm [facility] Heart rate 83 bpm 83 bpm [facility] Body temperature 97.1 Fahrenheit 97.1 Fahrenh t [facility] Diastolic blood 103 mmHg 103 mmHg [facility] Systolic blood 163 mmHg 163 mmHg [facility] Respiratory rate 20 bpm 20 bpm [facility] Heart rate 83 bpm 83 bpm [facility] Diastolic blood 87 mmHg 87 mmHg [facility] Systolic blood 146 mmHg 146 mmHg [facility] Respiratory rate 18 bpm 18 bpm [facility] Heart rate 86 bpm 86 bpm [facility] Diastolic blood 86 mmHg 86 mmHg [facility] Systolic blood 148 mmHg 148 mmHg [facility] Respiratory rate 18 bpm 18 bpm [facility] Heart rate 85 bpm 85 bpm [facility] Body temperature 97.6 Fahrenheit 97.6 Fahrenhei t [facility] Diastolic blood 105 mmHg 105 mmHg [facility] Systolic blood 162 mmHg 162 mmHg [facility] Respiratory rate 18 bpm 18 bpm [facility] Heart rate 86 bpm 86 bpm [facility] Diastolic blood 97 mmHg 97 mmHg [facility] Systolic blood 159 mmHg 159 mmHg [facility] Respiratory rate 18 bpm 18 bpm [facility] Heart rate 82 bpm 82 bpm [facility] Diastolic blood 94 mmHg 94 mmHg [facility] Systolic blood 173 mmHg 173 mmHg [facility] Respiratory rate 18 bpm 18 bpm [facility] Heart rate 74 bpm 74 bpm [facility] Diastolic blood 82 mmHg 82 mmHg [facility] Systolic blood 159 mmHg 159 mmHg [facility] Respiratory rate 18 bpm 18 bpm [facility] Heart rate 71 bpm 71 bpm [facility] Body temperature 97.7 Fahrenheit 97.7 Fahrenhei t [facility] Diastolic blood 85 mmHg 85 mmHg [facility] Systolic blood 159 mmHg 159 mmHg [facility] Respiratory rate 18 bpm 18 bpm [facility] Heart rate 74 bpm 74 bpm [facility] Diastolic blood 83 mmHg 83 mmHg [facility] Systolic blood 144 mmHg 144 mmHg [facility] Respiratory rate 18 bpm 18 bpm [facility] Heart rate 74 bpm 74 bpm [facility] Body temperature 97.9 Fahrenheit 97.9 Fahrenhei t [facility] Diastolic blood 100 mmHg 100 mmHg [facility] Systolic blood 146 mmHg 146 mmHg [facility] Respiratory rate 18 bpm 18 bpm [facility] Heart rate 71 bpm 71 bpm [facility] Body temperature 96.9 Fahrenheit 96.9 Fahrenhei t [facility] Diastolic blood 99 mmHg 99 mmHg [facility] Systolic blood 154 mmHg 154 mmHg [facility] Respiratory rate 18 bpm 18 bpm [facility] Heart rate 73 bpm 73 bpm [facility] Body temperature 96.9 Fahrenheit 96.9 Fahrenhei t [facility] Diastolic blood 84 mmHg 84 mmHg [facility] Systolic blood 130 mmHg 130 mmHg [facility] Diastolic blood 103 mmHg 103 mmHg [facility] Systolic blood 165 mmHg 165 mmHg [facility] Respiratory rate 20 bpm 20 bpm [facility] Heart rate 78 bpm 78 bpm [facility] Diastolic blood 97 mmHg 97 mmHg [facility] Systolic blood 160 mmHg 160 mmHg [facility] Respiratory rate 20 bpm 20 bpm [facility] Heart rate 79 bpm 79 bpm [facility] Body temperature 98.8 Fahrenheit 98.8 Fahrenhei t [facility] Diastolic blood 94 mmHg 94 mmHg [facility] Systolic blood 139 mmHg 139 mmHg [facility] Respiratory rate 18 bpm 18 bpm [facility] Heart rate 79 bpm 79 bpm [facility] Diastolic blood 89 mmHg 89 mmHg [facility] Systolic blood 149 mmHg 149 mmHg [facility] Respiratory rate 18 bpm 18 bpm [facility] Heart rate 76 bpm 76 bpm [facility] Body temperature 96.3 Fahrenheit 96.3 Fahrenhei t [facility] Diastolic blood 87 mmHg 87 mmHg [facility] Systolic blood 150 mmHg 150 mmHg [facility] Respiratory rate 18 bpm 18 bpm [facility] Heart rate 90 bpm 90 bpm [facility] Diastolic blood 84 mmHg 84 mmHg [facility] Systolic blood 149 mmHg 149 mmHg [facility] Respiratory rate 18 bpm 18 bpm [facility] Heart rate 84 bpm 84 bpm [facility] Body temperature 97.1 Fahrenheit 97.1 Fahrenhei t [facility] Diastolic blood 71 mm[Hg] 71 mm[Hg] [facility] Systolic blood 112 mm[Hg] 112 mm[Hg] [facility] Heart rate 84 /min 84 /min [facility] Body temperature 36.85870 Ashanti 36.68896 Ashanti [facility] Body temperature 98.3 [degF] 98.3 [degF] [facility] Respiratory rate 18 /min 18 /min [facility] Body mass index 20.0 kg/m2 20.0 kg/m2 [facility] (BMI) [Ratio] Hospital Body weight 128.26 [lb_av] 128.26 [lb_av] [facility] ID Date Data Source [id number] 01/20/2020 11:17:10 AM [facility] Name Value Range Interpretation Code Description Data Source(s) Body weight Measured 129 lb 129 lb [facility] ID Date Data Source [id number] 01/14/2020 03:50:20 PM [facility] Name Value Range Interpretation Code Description Data Source(s) Body weight Measured 129 lb 129 lb [facility] ID Date Data Source [id number] 12/22/2019 03:25:21 PM [facility] Name Value Range Interpretation Code Description Data Source(s) Body weight Measured 129 lb 129 lb [facility] ID Date Data Source [id number] 07/29/2019 03:46:49 PM [facility] Name Value Range Interpretation Code Description Data Source(s) Body weight Measured 129 lb 129 lb [facility] ID Date Data Source [id number] 05/25/2019 11:49:31 PM EST [facility] Name Value Range Interpretation Code Description Data Source(s) Body weight Measured 129 lb 129 lb [facility]
[2020-01-25] MEDS ORDERED: INSULIN SLIDING SCALE (NOVOLOG) 1 VIAL SQ ONE (17:02)
[2020-01-25] MEDS: Insulin (LOG) Aspart 100 UNITS/ML VIAL SQ SCH (17:06)
[2020-01-25 17:10] LABS: ALBUMIN 2.9 g/dl (3.4-5.0); BILIRUBIN,TOTAL 0.7 mg/dL (0.2-1); BLOOD UREA NITROGEN 12.8 mg/dL (7-18); CALCIUM 9.5 mg/dL (8.5-10.1); CREATININE 0.8 mg/dL (0.55-1.3); POTASSIUM 3.7 mmol/L (3.5-5.1); TOT PROT 7.1 g/dl (6.4-8.2)
[2020-01-25 17:12] LABS: HEMATOCRIT 38.2 % (32.4-45.2); HEMOGLOBIN 12.6 GM/dL (10.7-15.3); MCH 31.2 pg (25.7-33.7); MCHC 32.9 g/dl (32.0-36.0); MEAN CELL VOLUME 94.7 fl (80-96); MEAN PLT VOLUME 12.7 fl (7.5-11.1); PLATELET COUNT 158 K/MM3 (134-434); RBC 4.04 M/mm3 (3.60-5.2); RDW 15.1 % (11.6-15.6); WHITE BLOOD COUNT 4.1 K/mm3 (4.0-10.0)
[2020-01-25] MEDS ORDERED: INSULIN LISPRO 6 UNIT SQ SCH (17:30)
[2020-01-25] MEDS: LORazepam 2 MG TABLET PO SCH ×2 (17:59→22:56)
[2020-01-25] MEDS: hydrOXYzine PAMOATE 25 MG CAPSULE (FP) PO SCH ×2 (20:00→22:56)
[2020-01-25] MEDS ORDERED: INSULIN (LEVEMIR) 100 UNITS/ML UNITS SQ SCH (22:00)
[2020-01-25] MEDS ORDERED: MELATONIN 5 MG TABLETS PO SCH (22:00)
[2020-01-25] MEDS ORDERED: THIAMINE HCL 100 MG TABLET (FP) PO SCH (22:00)
[2020-01-26] MEDS: LORazepam 2 MG TABLET PO SCH ×2 (07:02→11:02)
[2020-01-26] MEDS: hydrOXYzine PAMOATE 25 MG CAPSULE (FP) PO SCH ×2 (07:03→11:51)
[2020-01-26] MEDS: Insulin (LOG) Aspart 100 UNITS/ML VIAL SQ SCH (07:12)
[2020-01-26 09:51] VITALS: PULSE 82
[2020-01-26] MEDS ORDERED: PRENATAL VITAMINS W/ FOLIC ACID TABLET (FP) PO SCH (10:00)
[2020-01-26] MEDS ORDERED: LISINOPRIL 5 MG TABLET PO SCH (10:00)
[2020-01-26] MEDS ORDERED: GLUCAGON 1 MG KIT IM ONE (11:00)
[2020-01-26] MEDS ORDERED: INSULIN (NOVOLOG) ASPART 100 UNITS/ML 10ML VIAL SQ SCH (11:00)
--- NOTE | 2020-01-26 11:25 | PN ---
[facility] Progress Note Note: this morning pt was lethargic but arousable, BGM was done it was 40. insulin s/s has been modified. glucogon IM x one given by RN. second BGM is 68. pt then attempted to walk to the bathroom and feel (unwitnessed). service writer gave report to Dr. Kline at [facility] for evaluation. fall protocol initiated
--- NOTE | 2020-01-26 11:39 | CONSULT ---
[facility] Psychiatric Consult - Data Date of interview: 01/26/20 Admission source: Self-referred Identifying data: Ms Childress is a 60years old single Black female, unemployed receiving SSI, living with her mother in a coop in [place] seeking detox treatment for alcohol and cocaine Substance Abuse History: Reports history of alcohol and crack cocaine use. Refer to addiction counselor's summary for further information Medical History: Patient is known for multiple previous admissions to this facility. She was approached at bedside for psychiastric interview and found to be very lethargic. She is not interviewable at this time Psychiatric Findings - Initial Treatment Plan Initial Treatment Plan: Please re consult when patient is appropriate for ps ychiatric interview
[2020-01-26 15:16] VITALS: BP 100/70; TEMP 98.6
[2020-01-27] MEDS ORDERED: LORazepam 1 MG TABLET PO SCH (05:00)
--- NOTE | 2020-01-27 15:13 | DS ---
[facility] Detox Discharge Summary Admission Date: 01/25/20 Discharge Date: 01/26/20 - History Present History: Alcohol Dependence, Cocaine Dependence - Physical Exam Results Vital Signs: Vital Signs Temperature 98.6 F 01/26/20 11:10 Pulse Rate 82 01/26/20 11:10 Respiratory Rate 20 01/26/20 11:10 Blood Pressure 100/70 01/26/20 11:10 O2 Sat by Pulse Oximetry (%) 100 01/26/20 11:10 Pertinent Admission Physical Exam Findings: Vital Signs Temperature 98.6 F 01/26/20 11:10 Pulse Rate 82 01/26/20 11:10 Respiratory Rate 20 01/26/20 11:10 Blood Pressure 100/70 01/26/20 11:10 O2 Sat by Pulse Oximetry (%) 100 01/26/20 11:10 Laboratory Tests 01/25/20 01/25/20 01/25/20 14:00 14:00 14:00 WBC 4.1 RBC 4.04 Hgb 12.6 Hct 38.2 MCV 94.7 MCH 31.2 MCHC 32.9 RDW 15.1 Plt Count 158 MPV 12.7 H D Sodium 141 Potassium 3.7 Chloride 104 Carbon Dioxide 30 Anion Gap 8 BUN 12.8 Creatinine 0.8 Est GFR (CKD-EPI)AfAm 91.58 Est GFR (CKD-EPI)NonAf 79.01 POC Glucometer Random Glucose 227 H Calcium 9.5 Total Bilirubin 0.7 AST 51 H ALT 35 Alkaline Phosphatase 101 Ammonia Total Protein 7.1 Albumin 2.9 L Syphilis Serology Reactive A* RPR Titer COVID-19 ([facility]ER[facility]) 01/25/20 01/25/20 01/25/20 14:00 14:00 14:47 WBC RBC Hgb Hct MCV MCH MCHC RDW Plt Count MPV Sodium Potassium Chloride Carbon Dioxide Anion Gap BUN Creatinine Est GFR (CKD-EPI)AfAm Est GFR (CKD-EPI)NonAf POC Glucometer 247 Random Glucose Calcium Total Bilirubin AST ALT Alkaline Phosphatase Ammonia 156.30 H Total Protein Albumin Syphilis Serology RPR Titer Reactive 1:1 H D COVID-19 ([facility]ER[facility]) 01/25/20 01/25/20 01/25/20 15:40 16:42 22:53 WBC RBC Hgb Hct MCV MCH MCHC RDW Plt Count MPV Sodium Potassium Chloride Carbon Dioxide Anion Gap BUN Creatinine Est GFR (CKD-EPI)AfAm Est GFR (CKD-EPI)NonAf POC Glucometer 272 267 Random Glucose Calcium Total Bilirubin AST ALT Alkaline Phosphatase Ammonia Total Protein Albumin Syphilis Serology RPR Titer COVID-19 ([facility]ER[facility]) Not detected 01/26/20 01/26/20 01/26/20 07:06 10:46 11:22 WBC RBC Hgb Hct MCV MCH MCHC RDW Plt Count MPV Sodium Potassium Chloride Carbon Dioxide Anion Gap BUN Creatinine Est GFR (CKD-EPI)AfAm Est GFR (CKD-EPI)NonAf POC Glucometer 68 40 96 Random Glucose Calcium Total Bilirubin AST ALT Alkaline Phosphatase Ammonia Total Protein Albumin Syphilis Serology RPR Titer COVID-19 ([facility]ER[facility]) pt sent to [facility] ED - Treatment Patient has Accepted a Rehab Referral to: sent to [place] ED for evaluation - Medication Discharge Medications: Ambulatory Orders Aripiprazole 10 mg PO HS 01/25/20 Insulin Glargine,Hum.rec.anlog [Lantus Solostar PEN -] 25 units SQ HS 01/25/20 Insulin Lispro [Humalog] 6 unit SQ TIDCM 01/25/20 Lisinopril [Zestril] 2.5 mg PO DAILY 01/25/20 Mirtazapine [Remeron -] 15 mg PO HS 01/25/20 Sertraline HCl [Zoloft -] 50 mg PO DAILY 01/25/20 - Diagnosis (1) Altered mental status Status: Acute (2) Common bile duct dilatation Status: Acute (3) Hepatic encephalopathy Status: Acute (4) Alcohol dependence Status: Chronic (5) Alcohol abuse with withdrawal, uncomplicated Status: Acute (6) Depression Status: Acute (7) Alcohol-induced mood disorder Status: Chronic (8) Anemia Status: Chronic (9) Anxiety and depression Status: Chronic (10) Cirrhosis Status: Chronic Qualifiers: Hepatic cirrhosis type: alcoholic cirrhosis (11) Cocaine dependence Status: Chronic (12) Diabetes 1.5, managed as type 1 Status: Chronic (13) Essential (primary) hypertension Status: Chronic (14) Goiter Status: Chronic (15) Hyperthyroidism Status: Chronic (16) Liver cirrhosis, alcoholic Status: Chronic (17) Major depressive disorder, recurrent, moderate Status: Chronic (18) Substance induced mood disorder Status: Chronic - AMA Did Patient Leave Against Medical Advice: No
[2020-01-28] MEDS ORDERED: LORazepam 0.5 MG TABLET PO PRN
[2020-01-28] MEDS ORDERED: LORazepam 0.5 MG TABLET PO SCH (05:00)
[2020-01-29] MEDS ORDERED: LORazepam 0.5 MG TABLET PO ONE (05:00)
== END 2020-01-26 12:50 | disposition short-term general hospital (02) | DRG 774 ==
LOC: YASAS 12:34 → Y6N 14:48
PROVIDERS: ADMIT Allergy & Immunology; ATTEND Allergy & Immunology
PROC: HZ2ZZZZ Detoxification Services for Substance Abuse Treatment (ICD-10-PCS; principal; 2020-01-25)
DX: F10.230 Alcohol dependence with withdrawal, uncomplicated (principal); F14.20 Cocaine dependence, uncomplicated; F12.10 Cannabis abuse, uncomplicated; F17.211 Nicotine dependence, cigarettes, in remission; F19.24 Other psychoactive substance dependence with psychoactive substance-induced mood disorder; F10.24 Alcohol dependence with alcohol-induced mood disorder; F33.1 Major depressive disorder, recurrent, moderate; F41.9 Anxiety disorder, unspecified; D64.9 Anemia, unspecified; E05.90 Thyrotoxicosis, unspecified without thyrotoxic crisis or storm; K70.30 Alcoholic cirrhosis of liver without ascites; K00.0 Anodontia; E10.9 Type 1 diabetes mellitus without complications; Z79.4 Long term (current) use of insulin; R63.4 Abnormal weight loss; Z68.1 Body mass index [BMI] 19.9 or less, adult; Z90.49 Acquired absence of other specified parts of digestive tract; Z98.890 Other specified postprocedural states; Z91.5 Personal history of self-harm
CPT/HCPCS: 36415; 80053; 82140; 82962; 85027; 86593; 86780; C9803; U0003

== ENCOUNTER 2020-01-26 12:45 | Inpatient (IN) | payer OTHER ==
--- NOTE | 2020-01-26 13:34 | PDOC ---
History of Present Illness - General Chief Complaint: Altered Mental Status Stated Complaint: AMS Time Seen by Provider: 01/26/20 13:33 - History of Present Illness Initial Comments: HPI: 01/26/20 13:34 60 yo F PMH cirrhosis, DM, hypothyroidism, alcohol use disorder, cocaine use, bipolar disorder, depression, prior suicide attempt in May 2019 (pills, admitted to [facility]), cholecytectomy (1984), recently admitted at [facility] ICU for elevated glucose (DKA?) and elevated liver enzymes, sent from [facility] after a fall. Patient was reportedly lethargic this morning, BGM was found to be 40. Glucogon IM was given and repeat BGM was 96. Patient subsequently attempted to walk to the bathroom and had a witnessed fall. BGM 182 here in the ER. ROS: Patient somnolent and declines to answer most questions, asks to be left alone. PE: Gen: somnolent but arousable to sternal rub Neuro: AAOX4, CN II-XII intact HEENT: atraumatic, normocephalic Neck: trachea midline, supple CV: regular rate, regular rhythm, no murmurs, rubs, or gallops Pulm: CTA b/l, no wheezing Abd: soft, non-distended, non-tender MSK: full ROM, intact pulses Extr: no edema, no deformities Skin: warm, dry MDM: Concern for AMS. Less likely secondary to hypoglycemia. Metabolic derangement vs infection vs overdose vs hepatic encephalopathy. - CBC, CMP - EKG, trop - CXR - CT head - acetaminophen level - salicylates - alcohol - drug screen - ammonia - PT/PTT - cardiac profile - UA - reassess 01/26/20 14:36 CXR without acute abnormality. 01/26/20 14:55 Reassessed, now awake and demanding food. Provided with sandwich and juice. Will get CT scan, UA, reassess. CBC unconcerning. 01/26/20 15:45 Ammonia >100, labs otherwise unconcerning. 01/26/20 16:27 UA without UTI. Will f/u CT head, reassess. 01/26/20 17:10 Patient states that she has been having about two bowel movements a day, most recently last night. 01/26/20 17:27 CT head: No CT evidence of acute intracranial pathology. Moderate to marked periventricular and subcortical chronic microvascular ischemic changes are seen. Will admit for hepatic encephalopathy. 01/26/20 17:33 Urine tox positive for cocaine. Patient agitated and screaming that she "ain't staying". Has hepatic encep halopathy and is unable to make this decision at this time. Will give 5 mg Haldol IM for agitation and admit. Past History - Medical History Allergies/Adverse Reactions: Allergies Allergy/AdvReac Type Severity Reaction Status Date / Time No Known Allergies Allergy Verified 01/26/20 16:54 Home Medications: Ambulatory Orders Aripiprazole 10 mg PO HS 01/25/20 Insulin Glargine,Hum.rec.anlog [Lantus Solostar PEN -] 25 units SQ HS 01/25/20 Insulin Lispro [Humalog] 6 unit SQ TIDCM 01/25/20 Lisinopril [Zestril] 2.5 mg PO DAILY 01/25/20 Mirtazapine [Remeron -] 15 mg PO HS 01/25/20 Sertraline HCl [Zoloft -] 50 mg PO DAILY 01/25/20 Anemia: Yes (since childhood) Asthma: No Cancer: No Cardiac Disorders: No CVA: No COPD: No CHF: No Dementia: No Diabetes: Yes GI Disorders: No Disorders: No HTN: Yes (on medication) Hypercholesterolemia: No Kidney Stones: No Liver Disease: Yes (cirrhosis for 8 yeaers) Seizures: No Thyroid Disease: Yes (GOITRE+ WITH HYPERTHRYROIDISM) - Surgical History Abdominal Surgery: Yes (repair of umbilical hernia) Appendectomy: No Cardiac Surgery: No Cholecystectomy: Yes (in 1997 [facility]) Lung Surgery: No Neurologic Surgery: No Orthopedic Surgery: No - Reproductive History Is Patient Now?: No PID: No - Immunization History Immunization Up to Date: Yes - Psycho-Social/Smoking History Smoking Status: No Smoking History: Smoker current status UNK Have you smoked in the past 12 months: No Number of Cigarettes Smoked Daily: 1 Information on smoking cessation initiated: No 'Breaking Loose' booklet given: 12/26/14 - Substance Abuse Hx (Audit-C & DAST Scrn) How often the patient has a drink containing alcohol: 4 0r more times/wk Number of drinks the patient has on a typical day: 10 or more How often the patient has six or more drinks on one occasion: Daily or almost daily Score: In Men: 4 or > Positive; In Women: 3 or > Positive: 12 Screen Result (Pos requires Nsg. Audit-10AR): Positive In the last yr the pt used illegal drug/Rx for NonMed reason: Yes Score: Yes response is considered Positive: 1 Screen Result (Positive result requires Nsg. DAST-10): Positive *Physical Exam - Vital Signs Last Vital Signs Temp Pulse Resp BP Pulse Ox 97.2 F L 80 16 138/88 99 01/26/20 13:13 01/26/20 13:13 01/26/20 13:13 01/26/20 13:13 01/26/20 13:13 ED Treatment Course - LABORATORY CBC & Chemistry Diagram: 01/27/20 06:40 01/27/20 07:57 Discharge - Discharge Information Problems reviewed: Yes Clinical Impression/Diagnosis: Hepatic encephalopathy Altered mental status Qualifiers: Altered mental status type: unspecified Qualified Code(s): R41.82 - Altered mental status, unspecified Alcohol dependence Qualifiers: Substance use status: unspecified alcohol-induced disorder Qualified Code(s): F10.29 - Alcohol dependence with unspecified alcohol-induced disorder Condition: Guarded - Admission Yes - Follow up/Referral - Patient Discharge Instructions - Post Discharge Activity
--- OUTSIDE RECORDS SUMMARY | 2020-01-26 13:44 | XMS ---
:1960 Author Organization [facility] Care Team Providers Name Role Phone Abe Barrett DO Unavailable Unavailable Tomasz Neelkamal Unavailable Unavailable Jose F Arroyo MD Unavailable Unavailable LEONEL ALEMAN PMHNP Unavailable Unavailable MD iJmenez Unavailable Unavailable ALEK GIMENEZ Unavailable Unavailable [email or web address] Unavailable Unavailable MD Victor Hugo Unavailable Unavailable [...] PAMM Unavailable Unavailable MD Mitch Unavailable Unavailable THI@, Unavailable Unavailable MD Nataly Unavailable Unavailable MD Stacey Unavailable Unavailable MD Efrain Unavailable Unavailable MD ERROL Unavailable Unavailable Юлия AGUILAR Unavailable Unavailable MD Frederick Unavailable Unavailable DO Lynn Unavailable Unavailable MD KATHY Unavailable Unavailable MD DISHA Unavailable Unavailable DO Alyssia Unavailable Unavailable Light, B MD Unavailable Unavailable Mickey MONTES Unavailable Unavailable DO Calderon Unavailable Unavailable MD Victoriano Unavailable Unavailable MD YOCASTA Unavailable Unavailable Leah Mckeon MD Unavailable Unavailable MD Rich Unavailable Unavailable MD Esha Unavailable Unavailable Vivian, DO Unavailable Unavailable CAROL BEBE JOHN Unavailable Unavailable MD FLEX Unavailable Unavailable Luis, C Unavailable Unavailable [place], C Unavailable Unavailable [place], C Unavailable Unavailable [place], C Unavailable Unavailable MD Chace Unavailable Unavailable SUGAR [place] Unavailable Unavailable KEZIA Unavailable Unavailable MD Renata Unavailable Unavailable MD Stella Unavailable Unavailable Abbi Russ Unavailable Unavailable Skyler Lara MD Unavailable Unavailable MD RACHEL Unavailable Unavailable CAROL Unavailable Unavailable TalitaUNAANSHUL Unavailable Unavailable Re-disclosure Warning The records that [...] is protected by Article 27-F of the [facility] Public Health law. If you continue you may haveaccess to information: Regarding HIV / AIDS; Provided by facilities licensed or operated by the [facility] Office of Mental Health; or Provided by the [facility] Office for People With Developmental Disabilities. If such information is present, then the following [facility] mandated warning applies: This information has [...] law may result in a fine or fdc sentence or both. A general authorization for the release of medical or other information is NOT sufficient authorization for further disclosure. Allergies and Adverse Reactions Type Description Substance Reaction Status Data Source(s ) Drug allergy No Known Allergies No Known NO KNOWN ALLERG Michael Lewis Allergies [place] Hospital Encounters Encounter Providers Location Date Indications Data Source(s ) Outpatient Attender: 01/20/2020 [facility] ZUNASSIGNEDAdmitter: 02:47:00 PM [facility] ZUNASSIGNEDReferrer: EDT [id number] [email or web address]@, Outpatient Admitter: [id number] 01/20/2020 [facility] [email or web address]@,Referre 12:00:00 AM [facility] Center r: [id number] EDT [email or web address]@, Inpatient Attender: Annalee 01/18/2020 [facility] Michael Mas MDAttender: 10:14:00 AM Hospit al Anat Mckeon EDT - MDAttender: Tay 01/21/2020 Light MDAdmitter: 04:18:00 PM Anat Mckeon EDT MD SMITH Patient discharged. Outpatient Attender: CNR9 [facility] 01/17/2020 04:08:20 PM I ([facility] EDT [facility]) Patient admitted. Outpatient Attender: LEONEL NDIAYE 01/17/2020 [facility] YOU[facility]T Hospital Admission cancelled. Disregard status an d admitted date. 01/12/2020 02:44:00 PM EDT [facility] Patient admitted. Emergency Attender: Wu 01/10/2020 12:34:00 [...] HYPERGLYCEMIA AUTO Patient discharged. Outpatient Attender: BEBE DICKERSONV 12/24/2019 10:40:00 AM [place] REIDAdmitter: ALYSE EDT - 01/14/2020 [facility] CANEVA 03:29:00 PM EDT Patient discharged. Outpatient Attender: BEBE CAROL Parker 12/24/2019 07:01:00 AM [place] MORENOAdmitter: EDT [facility] BEBE MORENOReferrer: BEBE MORENO Outpatient Attender: CHERYLEElenaLADONNA SENTHIL 12/21/2019 12:17:00 PM [place] CANEVAAdmitter: CAMILA EDT - 12/21/2019 [facility] DISHA 05:58:00 PM EDT Patient discharged. Emergency Attender: Sharonda Mack 12/21/2019 05:35:00 CAN T WALK [place] MDAttender: Juve Cade AM EDT - 12/21/2019 [facility] DOConsultant: Corrine 11:40:00 AM EDT Rich GARCIA CANT WALK WALK Patient discharged. Inpatient Attender: Tanika Jacob 12/15/2019 05:42:00 PM DKA [place] MDAttender: Elyssa Ibarra EDT - 12/20/2019 [facility] MDAttender: Дмитрий 12:05:00 PM EDT Tiagaurav PAAttender: Juve Cade DOAdmitter: Дмитрий Russ PAConsultant: Corrine Villanueva MD DKA Patient discharged. Inpatient Attender: Amy 11/30/2019 [facility] [place] 01:40:00 PM EDT - ENCEPHALOPATHY Hos pital MDAttender: 12/03/2019 Sharonda Mack 02:15:00 PM EDT MDAdmitter: Amy Perez MD HEPATIC ENCEPHALOPATHY Patient discharged. Inpatient Attender: Param 11/20/2019 09:17:00 DKA [place] RandhawaAttender: Elyssa Ibarra PM EDT - 11/29/2019 [facility] MDAttender: Kamlesh Yanez 10:47:00 AM EDT MDAttender: Jan Balbuena MDAttender: Abe Barrett DOAdmitter: Jan Balbuena MDConsultant: Corrine Villanueva MD DKA Patient discharged. Outpatient Attender: [facility] 11/13/2019 11:35:57 AM [facility] ([facility] EDT [facility]) Patient admitted. Outpatient Attender: [id number] 11/02/2019 [facility] JEFF, 09:23:00 AM EDT [facility] RAdmitter: [id number] Care [facility] Юлия AGUILAR Emergency Attender: Wilfrido Zuniga 10/26/2019 HEADACHE W mera Lewis MD 02:23:00 AM EDT [facility] 10/26/2019 01:07:00 PM EDT HEADACHE EMPRESS Patient discharged. Outpatient Attender: CNR9 [facility] 10/12/2019 01:04:05 PM [facility] ([facility] EDT [facility]) Patient admitted. Outpatient Attender: CNR9 [facility] 07/02/2019 06:26:05 [facility] Patient admitted. Inpatient Attender: CIGAlvarez 06/17/2019 06:18:00 HYPERGLYCEMI A [place] MATHEWAttender: Asif EST - 06/21/2019 [facility] Jesus MDAttender: 01:34:00 PM EDT Jose F Arroyo MDAdmitter: Asif Lee MD HYPERGLYCEMIA Patient discharged. Outpatient ST 06/01/2019 04:09:00 PM EST - [address] [place] [address] 03:46:00 PM EST Patient discharged. Attender: 05/28/2019 [place] [id number] 04:09:00 PM [facility] NETSMART_[id number] Inpatient Attender: Chloe Gaona 05/25/2019 [facility] MDAttender: Nura Pastrana 06:14:00 PM EST - Hospital MDAttender: Renae Carey 05/28/2019 DOAdmitter: Nura Pastrana 12:48:00 PM EST MDConsultant: Corrine Villanueva MD AMS Patient discharged. Inpatient Attender: ESTRELLITA DICKERSONV-3N 05/21/2019 09:17:00 PM [facility] FAEZAdmitter: ROBBI EST - 05/25/2019 [facility] 11:49:00 PM EST Patient discharged. Attender: 05/21/2019 [place] [id number] 09:17:00 PM [facility] 05/21/2019 [facility] 06:32:00 PM EST - Hospita l 05/21/2019 09:23:00 PM EST Patient discharged. Attender: 05/21/2019 [facility] [id number] 06:32:00 PM [place] [id number] [facility] Inpatient Attender: Bhargavi Barrera 05/19/2019 [facility] MDAttender: [place] 02:27:00 PM EST Hospital DOAdmitter: Asif Royal 05/21/2019 MDConsultant: Corrine Villanueva MD 06:06:00 PM EST [place] Patient discharged. Inpatient Attender: ESTRELLITA [facility]-3N 05/18/2019 01:07:00 PM [facility] FAEZAdmitter: [facility] - 05/19/2019 Hospital [place] 11:12:00 PM EST Patient discharged. Attender: 05/18/2019 [place] [id number] 01:07:00 PM [facility]_6766 Outpatient [facility] 05/18/2019 [facility] 12:56:00 PM EST - Hospita l 05/18/2019 04:24:00 PM EST Patient discharged. Attender: 05/18/2019 [place] [id number] 12:56:00 PM [place] [id number] [facility] Emergency Attender: Jose F Arroyo MDAttender: 05/17/2019 [facility] Wilfrido Thompsoner MDAttender: Aydin 07:04:00 PM [facility] Hospital Coddett MDConsultant: Jose F Arroyo - 0 AM.EMPR MDConsultant: Corrine Villanueva MD 12:57:00 PM EST SI AM.EMPR Patient discharged. Outpatient Attender: LILIA [facility] 05/17/2019 04:49:00 S judie [place] WASSERMANAdmitter: ABBE PM EST - 05/18/2019 Hospital EATON 02:29:00 PM EST Patient discharged. Attender: 05/17/2019 [facility] Ham [id number] 04:49:00 PM [facility]6766 Outpatient Attender: GIL NDIAYE 05/10/2019 Santino Ham ALPESHSAdmitter: ALETHA MAST 02:07:00 PM EST - Hospital 05/10/2019 07:38:00 PM EST Patient discharged. Attender: 05/10/2019 [facility] [id number] 02:07:[address] Emergency Attender: Black Bailey DO 04/29/2019 LOW B LOOD [facility] 11:42:00 AM EST [facility] - 04/29/2019 AUTO 04:20:00 PM EST LOW BLOOD [facility] AUTO Patient discharged. Outpatient Attender: [facility] 04/23/2019 03:05:35 PM [facility] ([facility]) Patient admitted. Emergency Attender: Francy Ingram 04/16/2019 [...] Inpatient Attender: ISAAK NDIAYE-2S 03/03/2019 07:17:00 PM [facility] SOTOAdmitter: ALYSE EST - 03/08/2019 [facility] BECKI 11:13:00 PM EST Patient discharged. Attender: 03/03/2019 [facility] [id number] 07:17:00 PM [facility]67 Outpatient STV 03/03/2019 [facility] 07:02:00 PM EST - Hospita l 03/03/2019 12:59:00 PM EST Patient discharged. Attender: 03/03/2019 [place] [id number] 07:02:00 PM [facility]_6766 Inpatient Attender: Chloe Lechugafuad 03/01/2019 AMS [place] MDAttender: Mary Lara MDAttender: 07:07:00 PM E [facility] Gunnar Carlson MDAdmitter: Mary Lara 03/03/2019 MDConsultant: Corrine Villanueva MD 06:40:00 PM EST [facility] Patient discharged. Inpatient Attender: ISAAK [facility]-2S 02/15/2019 07:13:00 PM [facility] SOTOAdmitter: HOLLY MCCORD [facility] - 03/01/2019 [facility] 08:31:00 AM EST Patient discharged. Attender: 02/15/2019 [place] [id number] 07:13:00 PM [facility]_6766 Outpatient [facility] 02/15/2019 [facility] 06:56:00 PM EST - Hospita 02/15/2019 09:26:00 PM EST Patient discharged. Attender: 02/15/2019 [facility] [id number] 06:56:[address] Emergency Attender: Mariano Monge 02/14/2019 DIABETIC/ [place] MDAttender: Sharonda Mack 10:27:00 AM EST [facility] Hospital MDAttender: Jose F Royal 02/15/2019 MEDS - W I MDConsultant: Corrine Villanueva MD 05:03:00 PM EST DIABETIC/[place] Patient discharged. Outpatient 01/18/2019 12:27:21 PM EDT [facility] ([facility]) Patient admitted. Emergency Attender: Black 08/22/2018 DIABETES [place] [facility] agata Bailey 05:08:00 PM EDT - (AM.EMPRESS) Hospi klaus DOAttender: Nehemias 08/22/2018 [facility] DO 09:16:00 PM EDT DIABETES (AM.EMPRESS) P 10/08/2017 02:42:00 PM EDT FALL/LEG PAIN ARR- [facility] FALL/LEG PAIN ARR- P 04/25/2009 01:14:00 PM EST RT SIDE C OTTON STUCK IN EAR [facility] ARR-WALK RT SIDE COT[place] STUCK IN EAR ARR-W ALK Functional Status Medications Medication Brand Start Product Dose Route Administrative Pharmacy St atus Indications Reaction Description Data Name Date Form Instructions Instructions Source(s) Lactulose Lactul 01/20/ SOLUTION 10 g ORAL active [facility] 667 MG/ML ose 2019 [place] Oral 01:56: Hospital Solution 00 PM EDT 3 ML Insuli 01/20/ INJECTIO 9 SUBCUT [facility] 01:56: Hospit al UNT/ML Pen Lispro 00 PM Injector EDT [Humalog] Insulin Human Lispro 3 ML Insuli 01/20/ PRE-FILL 25 SUBCUT active [facility]i te [facility] Glargine Glargi 01:56: SYRINGE Hosp ital 100 [...] Whi te Insulin n 2020 N ANEOUS [place] Lispro 100 Human 09:46: Hospit al UNT/ML Pen Lispro 00 AM Injector EDT [Humalog] Insulin Human Lispro 3 ML Insuli 12/19/ PRE-FILL 25 SUBCUT active Whi te Insulin n 2020 ED PEN ANEOUS [place] Glargine Glargi 09:46: SYRINGE Hosp ital 100 UNT/ML ne 00 AM Pen EDT Injector [Lantus] 3 ML Insuli 12/19/ INJECTIO 9 SUBCUT complet Wh ite Insulin n 2020 N ANEOUS ed [place] Lispro 100 Human 09:46: Hospit al UNT/ML Pen Lispro 00 AM Injector EDT [Humalog] Insulin Human Lispro 3 ML Insuli 12/19/ PRE-FILL 25 SUBCUT active Whi te Insulin n 2020 ED PEN ANEOUS [place] Glargine Glargi 09:46: SYRINGE Hosp ital 100 UNT/ML ne 00 AM Pen EDT Injector [Lantus] 3 ML Insuli 12/19/ PRE-FILL 25 SUBCUT complet Wh ite Insulin n 2020 ED PEN ANEOUS ed [place] Glargine Glargi 09:46: SYRINGE Hosp ital 100 UNT/ML ne 00 AM Pen EDT Injector [Lantus] 3 ML Insuli 12/19/ INJECTIO 9 SUBCUT active Whi te Insulin n 2020 N ANEOUS [place] Lispro 100 Human 09:46: Hospit al UNT/ML Pen Lispro 00 AM Injector EDT [Humalog] Insulin Human Lispro 3 ML Insuli 12/19/ PRE-FILL 25 SUBCUT active Whi te Insulin n 2020 ED PEN ANEOUS [place] Glargine Glargi 09:46: SYRINGE Hosp ital 100 UNT/ML ne 00 AM Pen EDT Injector [Lantus] 3 ML Insuli 12/19/ PRE-FILL 25 SUBCUT active Whi te Insulin n 2020 ED PEN ANEOUS [place] Glargine Glargi 09:46: SYRINGE Hosp ital 100 UNT/ML ne 00 AM Pen EDT Injector [Lantus] 3 ML Insuli 12/19/ INJECTIO 9 SUBCUT active Whi te Insulin n 2020 N ANEOUS [place] Lispro 100 Human 09:46: Hospit al UNT/ML Pen Lispro 00 AM Injector EDT [Humalog] Insulin Human Lispro 3 ML Insuli 12/19/ INJECTIO 9 SUBCUT active Whi te Insulin n 2020 N ANEOUS [place] Lispro 100 Human 09:46: Hospit al UNT/ML Pen Lispro 00 AM Injector EDT [Humalog] Insulin Human Lispro 3 ML Insuli 12/19/ PRE-FILL 25 SUBCUT active Whi te Insulin n 2020 ED PEN ANEOUS [place] Glargine Glargi 09:46: SYRINGE Hosp ital 100 UNT/ML ne 00 AM Pen EDT Injector [Lantus] 3 ML Insuli 12/19/ INJECTIO 9 SUBCUT active Whi te Insulin n 2020 N ANEOUS [place] Lispro 100 Human 09:46: Hospit al UNT/ML Pen Lispro 00 AM Injector EDT [Humalog] Insulin Human Lispro 3 ML Insuli 12/19/ PRE-FILL 25 SUBCUT complet Wh ite Insulin n 2020 ED PEN ANEOUS ed [place] Glargine Glargi 09:39: SYRINGE Hosp ital 100 UNT/ML ne 00 AM Pen EDT Injector [Lantus] 3 ML Insuli 12/19/ PRE-FILL 25 SUBCUT complet Wh ite Insulin n 2020 ED PEN ANEOUS ed [place] Glargine Glargi 09:39: SYRINGE Hosp ital 100 UNT/ML ne 00 AM Pen EDT Injector [Lantus] 3 ML Insuli 12/19/ INJECTIO 9 SUBCUT complet Wh ite Insulin n 2020 N ANEOUS ed [place] Lispro 100 Human 09:39: Hospit al UNT/ML Pen Lispro 00 AM Injector EDT [Humalog] Insulin Human Lispro 3 ML Insuli 12/19/ INJECTIO 9 SUBCUT complet Wh ite Insulin n 2020 N ANEOUS ed [place] Lispro 100 Human 09:39: Hospit al UNT/ML Pen Lispro 00 AM Injector EDT [Humalog] Insulin Human Lispro 3 ML Insuli 12/19/ INJECTIO 9 SUBCUT complet Wh ite Insulin n 2020 N ANEOUS ed [place] Lispro 100 Human 09:39: Hospit al UNT/ML Pen Lispro 00 AM Injector EDT [Humalog] Insulin Human Lispro 3 ML Insuli 12/19/ PRE-FILL 25 SUBCUT complet Wh ite Insulin n 2020 ED PEN ANEOUS ed [place] Glargine Glargi 09:39: SYRINGE Hosp ital 100 UNT/ML ne 00 AM Pen EDT Injector [Lantus] 3 ML Insuli 12/19/ PRE-FILL 25 SUBCUT complet Wh ite Insulin n 2020 ED PEN ANEOUS ed [place] Glargine Glargi 09:39: SYRINGE Hosp ital 100 UNT/ML ne 00 AM Pen EDT Injector [Lantus] 3 ML Insuli 12/19/ INJECTIO 9 SUBCUT complet Wh ite Insulin n 2020 N ANEOUS ed [place] Lispro 100 Human 09:39: Hospit al UNT/ML Pen Lispro 00 AM Injector EDT [Humalog] Insulin Human Lispro 3 ML Insuli 12/19/ PRE-FILL 25 SUBCUT complet Wh ite Insulin n 2020 ED PEN ANEOUS ed [place] Glargine Glargi 09:39: SYRINGE Hosp ital 100 UNT/ML ne 00 AM Pen EDT Injector [Lantus] 3 ML Insuli 12/19/ INJECTIO 9 SUBCUT complet Wh ite Insulin n 2020 N ANEOUS ed [place] Lispro 100 Human 09:39: Hospit al UNT/ML Pen Lispro 00 AM Injector EDT [Humalog] Insulin Human Lispro 3 ML Insuli 12/19/ PRE-FILL 25 SUBCUT complet Wh ite Insulin n 2020 ED PEN ANEOUS ed [place] Glargine Glargi 09:39: SYRINGE Hosp ital 100 UNT/ML ne 00 AM Pen EDT Injector [Lantus] 3 ML Insuli 12/19/ INJECTIO 9 SUBCUT complet Wh ite Insulin n 2020 N ANEOUS ed [place] Lispro 100 Human 09:39: Hospit al UNT/ML Pen Lispro 00 AM Injector EDT [Humalog] Insulin Human Lispro Sertraline Sertra 0817/ TABLET 2 ORAL complet [place] 50 MG Oral line 2019 {Caps ed [place] Tablet Hcl 10:26: ule} Hospital [Zoloft] 00 AM Sertraline EDT Hcl Sertraline Sertra 0817/ TABLET 2 ORAL complet [place] 50 MG Oral line 2019 {Caps ed [place] Tablet Hcl 10:26: ule} Hospital [Zoloft] 00 AM Sertraline EDT Hcl Sertraline Sertra 0817/ TABLET 2 ORAL complet [place] 50 MG Oral line 2019 {Caps ed [place] Tablet Hcl 10:26: ule} Hospital [Zoloft] 00 AM Sertraline EDT Hcl Sertraline Sertra 08/17/ TABLET 2 ORAL active W mera 50 MG Oral line 2020 {Caps [place] Tablet Hcl 10:26: ule} Hospital [Zoloft] 00 AM Sertraline EDT Hcl Sertraline Sertra 08/17/ TABLET 2 ORAL complet [place] 50 MG Oral line 2020 {Caps ed [place] Tablet Hcl 10:26: ule} Hospital [Zoloft] 00 AM Sertraline EDT Hcl Sertraline Sertra 08/17/ TABLET 2 ORAL complet [place] 50 MG Oral line 2019 {Caps ed [place] Tablet Hcl 10:26: ule} Hospital [Zoloft] 00 AM Sertraline EDT Hcl Sertraline Sertra 08/17/ TABLET 2 ORAL complet [place] 50 MG Oral line 2019 {Caps ed [place] Tablet Hcl 10:26: ule} Hospital [Zoloft] 00 AM Sertraline EDT Hcl Sertraline Sertra 08/17/ TABLET 2 ORAL complet [place] 50 MG Oral line 2019 {Caps ed [place] Tablet Hcl 10:26: ule} Hospital [Zoloft] 00 AM Sertraline EDT Hcl Omeprazole Omepra 08/14/ TABLET, 20 mg ORAL active [place] 20 MG zole 2020 DELAYED [place] Delayed 03:23: RELEASE Hospita l Release 00 PM Oral Tablet EDT Omeprazole Omepra 08/14/ TABLET, 20 mg ORAL active [place] 20 MG zole 2020 DELAYED [place] Delayed 03:23: RELEASE Hospita l Release 00 PM Oral Tablet EDT Omeprazole Omepra 08/14/ TABLET, 20 mg ORAL active [place] 20 MG zole 2020 DELAYED [place] Delayed 03:23: RELEASE Hospita l Release 00 PM Oral Tablet EDT Omeprazole Omepra 08/14/ TABLET, 20 mg ORAL active [place] 20 MG zole 2020 DELAYED [place] Delayed 03:23: RELEASE Hospita l Release 00 PM Oral Tablet EDT Omeprazole Omepra 08/14/ TABLET, 20 mg ORAL active [place] 20 MG zole 2020 DELAYED [place] Delayed 03:23: RELEASE Hospita l Release 00 PM Oral Tablet EDT Omeprazole Omepra 08/14/ TABLET, 20 mg ORAL active [place] 20 MG zole 2020 DELAYED [place] Delayed 03:23: RELEASE Hospita l Release 00 PM Oral Tablet EDT Omeprazole Omepra 08/14/ TABLET, 20 mg ORAL active [place] 20 MG zole 2020 DELAYED [place] Delayed 03:23: RELEASE Hospita l Release 00 PM Oral Tablet EDT Omeprazole Omepra 11/25/ TABLET, 20 mg ORAL active [place] 20 MG zole 2019 DELAYED [place] Delayed 03:23: RELEASE Hospita l Release 00 PM Oral Tablet EDT Sertraline Sertra 11/25/ TABLET 1 ORAL active W mera 100 MG Oral line 2019 {Caps [place] Tablet Hcl 02:36: ule} Hospital [Zoloft] 00 PM Sertraline EDT Hcl Insulin Insuli 11/25/ UNSPECIF 16 SUBCUT active [place] Glargine n 2019 IED ANEOUS [place] 100 UNT/ML Glargi 02:36: Hospi klaus Injectable ne 00 PM Solution EDT [Lantus] Sertraline Sertra 11/25/ TABLET 1 ORAL active W mera 100 MG Oral line 2019 {Caps [place] Tablet Hcl 02:36: ule} Hospital [Zoloft] 00 PM Sertraline EDT Hcl Insulin Insuli 11/25/ UNSPECIF 16 SUBCUT complet [place] Glargine n 2019 IED ANEOUS ed [place] 100 UNT/ML Glargi 02:36: Hospi klaus Injectable ne 00 PM Solution EDT [Lantus] Risperidone Risper 11/25/ TABLET 0.25 ORAL active [place] 0.5 MG Oral idone 2020 mg [place] Tablet 02:36: Hospital 00 PM EDT Sertraline Sertra 11/25/ TABLET 1 ORAL active W mera 100 MG Oral line 2019 {Caps [place] Tablet Hcl 02:36: ule} Hospital [Zoloft] 00 PM Sertraline EDT Hcl Insulin Insuli 11/25/ UNSPECIF 16 SUBCUT active [place] Glargine n 2019 IED ANEOUS [place] 100 UNT/ML Glargi 02:36: Hospi klaus Injectable ne 00 PM Solution EDT [Lantus] Insulin Insuli 11/25/ UNSPECIF 16 SUBCUT complet [place] Glargine n 2019 IED ANEOUS ed [place] 100 UNT/ML Glargi 02:36: Hospi klaus Injectable ne 00 PM Solution EDT [Lantus] Insulin Insuli 11/25/ UNSPECIF 16 SUBCUT complet [place] Glargine n 2019 IED ANEOUS ed [place] 100 UNT/ML Glargi 02:36: Hospi klaus Injectable ne 00 PM Solution EDT [Lantus] Insulin Insuli 11/25/ UNSPECIF 7 SUBCUT active [place] Lispro 100 n 2019 IED ANEOUS [place] UNT/ML Human 02:36: Hospital Injectable Lispro 00 PM Solution EDT [Humalog] Insulin Human Lispro Sertraline Sertra 08/14/ TABLET 1 ORAL active W mera 100 MG Oral line 2019 {Caps [place] Tablet Hcl 02:36: ule} Hospital [Zoloft] 00 PM Sertraline EDT Hcl Insulin Insuli 11/25/ UNSPECIF 16 SUBCUT complet [place] Glargine n 2019 IED ANEOUS ed [place] 100 UNT/ML Glargi 02:36: Hospi klaus Injectable ne 00 PM Solution EDT [Lantus] Risperidone Risper 0814/ TABLET 0.25 ORAL active [place] 0.5 MG Oral idone 2020 mg [place] Tablet 02:36: Hospital 00 PM EDT Sertraline Sertra 14/ TABLET 1 ORAL active W mera 100 MG Oral line 2020 {Caps [place] Tablet Hcl 02:36: ule} Hospital [Zoloft] 00 PM Sertraline EDT Hcl Insulin Insuli 11/25/ UNSPECIF 7 SUBCUT complet [place] Lispro 100 n 2019 IED ANEOUS ed [place] UNT/ML Human 02:36: Hospital Injectable Lispro 00 PM Solution EDT [Humalog] Insulin Human Lispro Insulin Insuli 11/25/ UNSPECIF 7 SUBCUT active [place] Lispro 100 n 2019 IED ANEOUS [place] UNT/ML Human 02:36: Hospital Injectable Lispro 00 PM Solution EDT [Humalog] Insulin Human Lispro Risperidone Risper 08/14/ TABLET 0.25 ORAL active [place] 0.5 MG Oral idone 2020 mg [place] Tablet 02:36: Hospital 00 PM EDT Sertraline Sertra 0814/ TABLET 1 ORAL active W mera 100 MG Oral line 2020 {Caps [place] Tablet Hcl 02:36: ule} Hospital [Zoloft] 00 PM Sertraline EDT Hcl Risperidone Risper 08/14/ TABLET 0.25 ORAL active [place] 0.5 MG Oral idone 2020 mg [facility] Tablet 02:36: Hospital 00 PM EDT Risperidone Risper 08/14/ TABLET 0.25 ORAL active [place] 0.5 MG Oral idone 2020 mg [place] Tablet 02:36: Hospital 00 PM EDT Risperidone Risper 08/14/ TABLET 0.25 ORAL active [place] 0.5 MG Oral idone 2020 mg [place] Tablet 02:36: Hospital 00 PM EDT Sertraline Sertra 11/25/ TABLET 1 ORAL active W mera 100 MG Oral line 2019 {Caps [place] Tablet Hcl 02:36: ule} Hospital [Zoloft] 00 PM Sertraline EDT Hcl Risperidone Risper 11/25/ TABLET 0.25 ORAL active [place] 0.5 MG Oral idone 2020 mg [place] Tablet 02:36: Hospital 00 PM EDT Insulin Insuli 11/25/ UNSPECIF 7 SUBCUT complet [place] Lispro 100 n 2019 IED ANEOUS ed [place] UNT/ML Human 02:36: Hospital Injectable Lispro 00 PM Solution EDT [Humalog] Insulin Human Lispro Risperidone Risper 11/25/ TABLET 0.25 ORAL active [place] 0.5 MG Oral idone 2020 mg [place] Tablet 02:36: Hospital 00 PM EDT Insulin Insuli 11/25/ UNSPECIF 16 SUBCUT complet [place] Glargine n 2019 IED ANEOUS ed [place] 100 UNT/ML Glargi 02:36: Hospi klaus Injectable ne 00 PM Solution EDT [Lantus] Insulin Insuli 11/25/ UNSPECIF 7 SUBCUT complet [place] Lispro 100 n 2019 IED ANEOUS ed [place] UNT/ML Human 02:36: Hospital Injectable Lispro 00 PM Solution EDT [Humalog] Insulin Human Lispro Insulin Insuli 11/25/ UNSPECIF 7 SUBCUT complet [place] Lispro 100 n 2019 IED ANEOUS ed [place] UNT/ML Human 02:36: Hospital Injectable Lispro 00 PM Solution EDT [Humalog] Insulin Human Lispro Insulin Insuli 11/25/ UNSPECIF 7 SUBCUT complet [facility] Lispro 100 n 2019 IED ANEOUS [facility] UNT/ML Human 02:36: Hospital Injectable Lispro 00 PM Solution EDT [Humalog] Insulin Human Lispro Sertraline Sertra 11/25/ TABLET 1 ORAL active W mera 100 MG Oral line 2019 {Caps [facility] Tablet Hcl 02:36: ule} Hospital [Zoloft] 00 PM Sertraline EDT Hcl Insulin Insuli 11/25/ UNSPECIF 7 SUBCUT complet [facility] Lispro 100 n 2019 IED ANEOUS ed [facility] UNT/ML Human 02:36: Hospital Injectable Lispro 00 PM Solution EDT [Humalog] Insulin Human Lispro Insulin Insuli 08/14/ UNSPECIF 16 SUBCUT complet [place] Glargine n 2019 IED ANEOUS [facility] 100 UNT/ML Glargi 02:36: [facility] Injectable ne 00 PM Solution EDT [Lantus] Amoxicillin Amoxic 07/14/ TABLET 1 ORAL complet White 875 MG / 2019 {[facility]aps [facility] Clavulanate Clavun 06:12: ule} Hosp [facility] 125 MG Oral ate 00 AM Tablet 5-12 EDT [Augmentin] 5 Amoxicillin Tablet /Clavunate * 875-125 Tablet* Amoxicillin Amoxic 07/14/ TABLET 1 ORAL complet White 875 MG / ill2019 {Caps [facility] Clavulanate Clavun 06:12: ule} Hosp [facility] 125 MG Oral ate 00 AM Tablet -12 EDT [Augmentin] 5 Amoxicillin Tablet /Clavunate * 875-125 Tablet* Amoxicillin Amoxic 07/14/ TABLET 1 ORAL complet White 875 MG / 2019 {Caps [facility] Clavulanate Clavun 06:12: ule} Hosp [facility] 125 MG Oral ate 00 AM Tablet -12 EDT [Augmentin] 5 Amoxicillin Tablet /Clavunate * 875-125 Tablet* Amoxicillin Amoxic 07/14/ TABLET 1 ORAL complet White 875 MG / 2019 {Caps [facility] Clavulanate Clavun 06:12: ule} Hosp [facility] 125 MG Oral ate 00 AM Tablet 5-12 EDT [Augmentin] 5 Amoxicillin Tablet /Clavunate * 875-125 Tablet* Amoxicillin Amoxic 07/14/ TABLET 1 ORAL complet White 875 MG / 2019 {Caps [facility] Clavulanate Clavun 06:12: ule} Hosp [facility] 125 MG Oral ate 00 AM Tablet 5-12 EDT [Augmentin] 5 Amoxicillin Tablet /Clavunate * 875-125 Tablet* Amoxicillin Amoxic 07/14/ TABLET 1 ORAL complet [facility] 875 MG / ill2019 {Caps [facility] Clavulanate Clavun 06:12: ule} [facility]osp [facility] 125 MG Oral ate 00 AM Tablet 5-12 EDT [Augmentin] 5 Amoxicillin Tablet /Clavunate * 875-125 Tablet* Amoxicillin Amoxic 07/14/ TABLET 1 ORAL complet [facility] 875 MG / ill2019 {Caps [facility] Clavulanate Clavun 06:12: ule} [facility]osp [facility] 125 MG Oral ate 00 AM Tablet 875-12 EDT [Augmentin] 5 Amoxicillin Tablet /Clavunate * 875-125 Tablet* Amoxicillin Amoxic 07/14/ TABLET 1 ORAL complet [facility] 875 MG / illin/ 2019 {Caps [facility] Clavulanate Clavun 06:12: ule} Hosp [facility] 125 MG Oral ate 00 AM Tablet 875-12 EDT [Augmentin] 5 Amoxicillin Tablet /Clavunate * 875-125 Tablet* Amoxicillin Amoxic 07/14/ TABLET 1 ORAL active White 875 MG / illin/ 2020 {Caps [facility] Clavulanate Clavun 06:12: ule} Hosp [facility] 125 MG Oral ate 00 AM Tablet 875-12 EDT [Augmentin] 5 Amoxicillin Tablet /Clavunate * 875-125 Tablet* Mirtazapine Mirtaz 05/27/ TABLET 15 mg ORAL complet [facility] 15 MG Oral apine 2019 ed [facility] Tablet 02:47: Hospital [Remeron] 00 PM EST aripiprazol Aripip 05/27/ TABLET 10 mg ORAL complet White e 10 MG razole 2019 ed [facility] Oral Tablet 02:47: Hospit al [Abilify] 00 PM Aripiprazol EST e aripiprazol Aripip 05/27/ TABLET 10 mg ORAL complet White e 10 MG razole 2019 ed [facility] Oral Tablet 02:47: Hospit al [Abilify] 00 PM Aripiprazol EST e Sertraline Sertra 05/27/ TABLET 1 ORAL active W mera 50 MG Oral line 2019 {[facility]aps [facility] Tablet Hcl 02:47: ule} Hospital [Zoloft] 00 PM Sertraline EST Hcl Lactulose Lactul 05/27/ SOLUTION 10 g ORAL active White 667 MG/ML ose 2020 [facility] Oral 02:47: Hospital Solution 00 PM EST Lactulose Lactul 05/27/ SOLUTION 10 g ORAL active White 667 MG/ML ose 2019 [facility] Oral 02:47: Hospital Solution 00 PM EST aripiprazol Aripip 05/27/ TABLET 10 mg ORAL complet White e 10 MG razole 2019 ed [facility] Oral Tablet 02:47: Hospit al [Abilify] 00 PM Aripiprazol EST e Sertraline Sertra 05/27/ TABLET 1 ORAL active W mera 50 MG Oral line 2020 {[facility]aps [facility] Tablet Hcl 02:47: ule} Hospital [Zoloft] 00 PM Sertraline EST Hcl Sertraline Sertra 05/27/ TABLET 1 ORAL complet [facility] 50 MG Oral line 2019 {Caps [facility] Tablet Hcl 02:47: ule} Hospital [Zoloft] 00 PM Sertraline EST Hcl Sertraline Sertra 05/27/ TABLET 1 ORAL complet White 50 MG Oral line 2019 {[facility]aps [facility] Tablet Hcl 02:47: ule} Hospital [Zoloft] 00 PM Sertraline EST Hcl Lactulose Lactul 05/27/ SOLUTION 10 g ORAL active White 667 MG/ML ose 2020 [facility] Oral 02:47: Hospital Solution 00 PM EST Sertraline Sertra 05/27/ TABLET 1 ORAL complet White 50 MG Oral line 2019 {Caps [facility] Tablet Hcl 02:47: ule} Hospital [Zoloft] 00 PM Sertraline EST Hcl Lactulose Lactul 05/27/ SOLUTION 10 g ORAL active White 667 MG/ML ose 2020 [facility] Oral 02:47: Hospital Solution 00 PM EST Mirtazapine Mirtaz 05/27/ TABLET 15 mg ORAL complet White 15 MG Oral apine 2020 ed [facility] Tablet 02:47: Hospital [Remeron] 00 PM EST Mirtazapine Mirtaz /13/ TABLET 15 mg ORAL complet [place] 15 MG Oral apine 2020 ed [facility] Tablet 02:47: Hospital [Remeron] 00 PM EST Mirtazapine Mirtaz 05/27/ TABLET 15 mg ORAL complet [place] 15 MG Oral apine 2020 ed [facility] Tablet 02:47: Hospital [Remeron] 00 PM EST Lactulose Lactul 05/27/ SOLUTION 10 g ORAL complet White 667 MG/ML ose 2020 ed [facility] Oral 02:47: Hospital Solution 00 PM EST Lactulose Lactul 13/ SOLUTION 10 g ORAL active White 667 MG/ML ose 2020 [facility] Oral 02:47: Hospital Solution 00 PM EST Mirtazapine Mirtaz // TABLET 15 mg ORAL complet [place] 15 MG Oral apine 2020 ed [facility] Tablet 02:47: Hospital [Remeron] 00 PM EST Lactulose Lactul 05/27/ SOLUTION 10 g ORAL active White 667 MG/ML ose 2020 [facility] Oral 02:47: Hospital Solution 00 PM EST Mirtazapine Mirtaz 02/13/ TABLET 15 mg ORAL complet [facility] 15 MG Oral apine 2019 ed [facility] Tablet 02:47: Hospital [Remeron] 00 PM EST Mirtazapine Mirtaz 05/27/ TABLET 15 mg ORAL active [place] 15 MG Oral apine 2020 [facility] Tablet 02:47: Hospital [Remeron] 00 PM EST Mirtazapine Mirtaz 05/27/ TABLET 15 mg ORAL complet [facility] 15 MG Oral apine 2020 ed [facility] Tablet 02:47: Hospital [Remeron] 00 PM EST aripiprazol Aripip 05/27/ TABLET 10 mg ORAL complet White e 10 MG razole 2019 ed [facility] Oral Tablet 02:47: Hospit al [Abilify] 00 PM Aripiprazol EST e aripiprazol Aripip 05/27/ TABLET 10 mg ORAL complet White e 10 MG razole 2019 ed [facility] Oral Tablet 02:47: Hospit al [Abilify] 00 PM Aripiprazol EST e Sertraline Sertra 05/27/ TABLET 1 ORAL complet [facility] 50 MG Oral line 2019 {Caps ed [facility] Tablet Hcl 02:47: ule} Hospital [Zoloft] 00 PM Sertraline EST Hcl Sertraline Sertra 05/27/ TABLET 1 ORAL complet White 50 MG Oral line 2019 {Caps [facility] Tablet Hcl 02:47: ule} Hospital [Zoloft] 00 PM Sertraline EST Hcl aripiprazol Aripip 05/27/ TABLET 10 mg ORAL complet White e 10 MG razole 2019 ed [facility] Oral Tablet 02:47: Hospit al [Abilify] 00 PM Aripiprazol EST e Lactulose Lactul 05/27/ SOLUTION 10 g ORAL active White 667 MG/ML ose 2019 [facility] Oral 02:47: Hospital Solution 00 PM EST Sertraline Sertra 05/27/ TABLET 1 ORAL active W mera 50 MG Oral line 2019 {Caps [facility] Tablet Hcl 02:47: ule} Hospital [Zoloft] 00 PM Sertraline EST Hcl Lactulose Lactul 05/27/ SOLUTION 10 g ORAL active White 667 MG/ML ose 2019 [facility] Oral 02:47: Hospital Solution 00 PM EST Mirtazapine Mirtaz 05/27/ TABLET 15 mg ORAL complet [place] 15 MG Oral apine 2020 ed [facility] Tablet 02:47: Hospital [Remeron] 00 PM EST Lactulose Lactul 05/27/ SOLUTION 10 g ORAL active [place] 667 MG/ML ose 2019 [facility] Oral 02:47: Hospital Solution 00 PM EST aripiprazol Aripip 05/27/ TABLET 10 mg ORAL active White e 10 MG razole 2019 [facility] Oral Tablet 02:47: Hospit al [Abilify] 00 PM Aripiprazol EST e Sertraline Sertra 05/27/ TABLET 1 ORAL complet [facility] 50 MG Oral line 2019 {Caps ed [facility] Tablet Hcl 02:47: ule} Hospital [Zoloft] 00 PM Sertraline EST Hcl aripiprazol Aripip 05/27/ TABLET 10 mg ORAL complet White e 10 MG razole 2019 ed [facility] Oral Tablet 02:47: Hospit al [Abilify] 00 PM Aripiprazol EST e Mirtazapine Mirtaz 05/27/ TABLET 15 mg ORAL complet [facility] 15 MG Oral apine 2019 ed [facility] Tablet 02:47: Hospital [Remeron] 00 PM EST Sertraline Sertra 05/27/ TABLET 1 ORAL complet [place] 50 MG Oral line 2019 {[facility] ed [facility] Tablet Hcl 02:47: ule} Hospital [Zoloft] 00 PM Sertraline EST Hcl aripiprazol Aripip 05/27/ TABLET 10 mg ORAL complet White e 10 MG razole 2019 ed [facility] Oral Tablet 02:47: Hospit al [Abilify] 00 PM Aripiprazol EST e aripiprazol Aripip 05/27/ TABLET 10 mg ORAL complet White e 10 MG razole 2019 ed [facility] Oral Tablet 02:47: Hospit al [Abilify] 00 PM Aripiprazol EST e Sertraline Sertra 05/27/ TABLET 1 ORAL complet [place] 50 MG Oral line 2019 {[facility] ed [facility] Tablet Hcl 02:47: ule} Hospital [Zoloft] 00 PM Sertraline EST Hcl Mirtazapine Mirtaz 05/27/ TABLET 15 mg ORAL complet [place] 15 MG Oral apine 2019 ed [facility] Tablet 02:47: Hospital [Remeron] 00 PM EST Lactulose Lactul 05/27/ SOLUTION 10 g ORAL active [place] 667 MG/ML ose 2019 [facility] Oral 02:47: Hospital Solution 00 PM EST aripiprazol Aripip 02// TABLET 10 mg ORAL complet [facility] e 10 MG razole 2020 ed [facility] Oral Tablet 02:47: Hospit al [Abilify] 00 PM Aripiprazol EST e Famotidine Famoti 05/21/ TABLET 20 mg ORAL complet [facility] 20 MG Oral dine 2020 ed [facility] Tablet 01:26: Hospital [Pepcid] 00 PM EST Famotidine Famoti 05/21/ TABLET 20 mg ORAL complet [facility] 20 MG Oral dine 2020 ed [facility] Tablet 01:26: Hospital [Pepcid] 00 PM EST Famotidine Famoti 05/21/ TABLET 20 mg ORAL complet [place] 20 MG Oral dine 2020 ed [facility] Tablet 01:26: Hospital [Pepcid] 00 PM EST Famotidine Famoti // TABLET 20 mg ORAL complet [place] 20 MG Oral dine 2020 ed [facility] Tablet 01:26: Hospital [Pepcid] 00 PM EST Famotidine Famoti // TABLET 20 mg ORAL active [place] 20 MG Oral dine 2020 [facility] Tablet 01:26: Hospital [Pepcid] 00 PM EST Famotidine Famoti // TABLET 20 mg ORAL active [place] 20 MG Oral dine 2020 [facility] Tablet 01:26: Hospital [Pepcid] 00 PM EST Famotidine Famoti // TABLET 20 mg ORAL active [place] 20 MG Oral dine 2020 [facility] Tablet 01:26: Hospital [Pepcid] 00 PM EST Famotidine Famoti /07/ TABLET 20 mg ORAL complet [place] 20 MG Oral dine 2020 ed [facility] Tablet 01:26: Hospital [Pepcid] 00 PM EST Famotidine Famoti /07/ TABLET 20 mg ORAL complet [facility] 20 MG Oral dine 2020 ed [facility] Tablet 01:26: Hospital [Pepcid] 00 PM EST Famotidine Famoti /07/ TABLET 20 mg ORAL active White 20 MG Oral dine 2020 [facility] Tablet 01:26: Hospital [Pepcid] 00 PM EST Famotidine Famoti 02/07/ TABLET 20 mg ORAL complet [place] 20 MG Oral dine 2020 ed [facility] Tablet 01:26: Hospital [Pepcid] 00 PM EST Famotidine Famoti 02/07/ TABLET 20 mg ORAL complet [place] 20 MG Oral dine 2020 ed [facility] Tablet 01:26: Hospital [Pepcid] 00 PM EST [...] [facility] Lispro 100 n 2019 IED ANEOUS [facility] UNT/ML Human 06:12: Hospital Injectable Lispro 00 PM Solution EST [Humalog] Insulin Human Lispro Insulin Insuli 03/02/ UNSPECIF 6 SUBCUT complet [place] Lispro 100 n 2019 IED ANEOUS ed [facility] UNT/ML Human 06:12: Hospital Injectable Lispro 00 PM Solution EST [Humalog] Insulin Human Lispro Insulin Insuli 03/02/ UNSPECIF 15 SUBCUT active [place] Glargine n 2019 IED ANEOUS [facility] 100 UNT/ML Glargi 06:12: [facility] Injectable ne 00 PM Solution EST [Lantus] Insulin Insuli 03/02/ UNSPECIF 15 SUBCUT complet [place] Glargine n 2019 IED ANEOUS ed [facility] 100 UNT/ML Glargi 06:12: [facility] Injectable ne 00 PM Solution EST [Lantus] Insulin Insuli 03/02/ UNSPECIF 15 SUBCUT complet [place] Glargine n 2019 IED ANEOUS ed [facility] 100 UNT/ML Glargi 06:12: [facility] Injectable ne 00 PM Solution EST [Lantus] Insulin Insuli 03/02/ UNSPECIF 6 SUBCUT complet [place] Lispro 100 n 2019 IED ANEOUS ed [facility] UNT/ML Human 06:12: Hospital Injectable Lispro 00 PM Solution EST [Humalog] Insulin Human Lispro Insulin Insuli 03/02/ UNSPECIF 15 SUBCUT active [place] Glargine n 2019 IED ANEOUS [facility] 100 UNT/ML Glargi 06:12: [facility]pi [facility] Injectable ne 00 PM Solution EST [Lantus] Insulin Insuli 03/02/ UNSPECIF 15 SUBCUT complet [place] Glargine n 2019 IED ANEOUS ed [facility] 100 UNT/ML Glargi 06:12: [facility] Injectable ne 00 PM Solution EST [Lantus] Insulin Insuli 03/02/ UNSPECIF 6 SUBCUT active [place] Lispro 100 n 2019 IED ANEOUS [facility] UNT/ML Human 06:12: Hospital Injectable Lispro 00 PM Solution EST [Humalog] Insulin Human Lispro Insulin Insuli 03/02/ UNSPECIF 6 SUBCUT complet [place] Lispro 100 n 2019 IED ANEOUS ed [facility] UNT/ML Human 06:12: Hospital Injectable Lispro 00 PM Solution EST [Humalog] Insulin Human Lispro Insulin Insuli 03/02/ UNSPECIF 6 SUBCUT complet [place] Lispro 100 n 2019 IED ANEOUS ed [facility] UNT/ML Human 06:12: Hospital Injectable Lispro 00 PM Solution EST [Humalog] Insulin Human Lispro Insulin Insuli 03/02/ UNSPECIF 15 SUBCUT active [place] Glargine n 2019 IED ANEOUS [facility] 100 UNT/ML Glargi 06:12: [facility] Injectable ne 00 PM Solution EST [Lantus] Insulin Insuli 03/02/ UNSPECIF 15 SUBCUT complet [place] Glargine n 2019 IED ANEOUS ed [facility] 100 UNT/ML Glargi 06:12: [facility]pi [facility] Injectable ne 00 PM Solution EST [Lantus] Insulin Insuli 03/02/ UNSPECIF 15 SUBCUT complet [place] Glargine n 2019 IED ANEOUS ed [facility] 100 UNT/ML Glargi 06:12: [facility] Injectable ne 00 PM Solution EST [Lantus] Insulin Insuli 03/02/ UNSPECIF 6 SUBCUT active [place] Lispro 100 n 2019 IED ANEOUS [facility] UNT/ML Human 06:12: Hospital Injectable Lispro 00 PM Solution EST [Humalog] Insulin Human Lispro Insulin Insuli 03/02/ UNSPECIF 15 SUBCUT active [place] Glargine n 2018 IED ANEOUS [facility] 100 UNT/ML Glargi 06:12: [facility] Injectable ne 00 PM Solution EST [Lantus] Insulin Insuli 03/02/ UNSPECIF 15 SUBCUT active [place] Glargine n 2019 IED ANEOUS [facility] 100 UNT/ML Glargi 06:12: [facility] Injectable ne 00 PM Solution EST [Lantus] Insulin Insuli 03/02/ UNSPECIF 15 SUBCUT active [place] Glargine n 2018 IED ANEOUS [facility] 100 UNT/ML Glargi 06:12: [facility] Injectable ne 00 PM Solution EST [Lantus] Insulin Insuli 03/02/ UNSPECIF 6 SUBCUT complet [place] Lispro 100 n 2019 IED ANEOUS ed [facility] UNT/ML Human 06:12: Hospital Injectable Lispro 00 PM Solution EST [Humalog] Insulin Human Lispro Insulin Insuli 03/02/ UNSPECIF 15 SUBCUT complet [place] Glargine n 2019 IED ANEOUS ed [facility] 100 UNT/ML Glargi 06:12: [facility] Injectable ne 00 PM Solution EST [Lantus] Insulin Insuli 03/02/ UNSPECIF 6 SUBCUT active [place] Lispro 100 n 2019 IED ANEOUS [facility] UNT/ML Human 06:12: Hospital Injectable Lispro 00 PM Solution EST [Humalog] Insulin Human Lispro Insulin Insuli 03/02/ UNSPECIF 15 SUBCUT complet [place] Glargine n 2019 IED ANEOUS ed [facility] 100 UNT/ML Glargi 06:12: [facility]pi [facility] Injectable ne 00 PM Solution EST [Lantus] Insulin Insuli 03/02/ UNSPECIF 6 SUBCUT complet [place] Lispro 100 n 2019 IED ANEOUS ed [facility] UNT/ML Human 06:12: Hospital Injectable Lispro 00 PM Solution EST [Humalog] Insulin Human Lispro Insulin Insuli 03/02/ UNSPECIF 6 SUBCUT active [place] Lispro 100 n 2019 IED ANEOUS [facility] UNT/ML Human 06:12: Hospital Injectable Lispro 00 PM Solution EST [Humalog] Insulin Human Lispro Insulin Insuli 03/02/ UNSPECIF 15 SUBCUT complet [place] Glargine n 2019 IED ANEOUS ed [facility] 100 UNT/ML Glargi 06:12: Hospi [facility] Injectable ne 00 PM Solution EST [Lantus] Insulin Insuli 03/02/ UNSPECIF 6 SUBCUT active [place] Lispro 100 n 2019 IED ANEOUS [facility] UNT/ML Human 06:12: Hospital Injectable Lispro 00 PM Solution EST [Humalog] Insulin Human Lispro Insulin Insuli 03/02/ UNSPECIF 15 SUBCUT active [place] Glargine n 2019 IED ANEOUS [facility] 100 UNT/ML Glargi 06:12: Hospi [facility] Injectable ne 00 PM Solution EST [Lantus] Insulin Insuli 03/02/ UNSPECIF 15 SUBCUT active [place] Glargine n 2019 IED ANEOUS [facility] 100 UNT/ML Glargi 06:12: [facility]pi [facility] Injectable ne 00 PM Solution EST [Lantus] Insulin Insuli 03/02/ UNSPECIF 6 SUBCUT complet [place] Lispro 100 n 2019 IED ANEOUS ed [facility] UNT/ML Human 06:12: Hospital Injectable Lispro 00 PM Solution EST [Humalog] Insulin Human Lispro Insulin Insuli 03/02/ UNSPECIF 6 SUBCUT complet [place] Lispro 100 n 2019 IED ANEOUS ed [facility] UNT/ML Human 06:12: Hospital Injectable Lispro 00 PM Solution EST [Humalog] Insulin Human Lispro Insulin Insuli 03/02/ UNSPECIF 6 SUBCUT active [place] Lispro 100 n 2019 IED ANEOUS [facility] UNT/ML Human 06:12: Hospital Injectable Lispro 00 PM Solution EST [Humalog] Insulin Human Lispro Insulin Insuli 03/02/ UNSPECIF 6 SUBCUT complet [place] Lispro 100 n 2019 IED ANEOUS ed [facility] UNT/ML Human 06:12: Hospital Injectable Lispro 00 PM Solution EST [Humalog] Insulin Human Lispro Insulin Insuli 03/02/ UNSPECIF 6 SUBCUT complet [place] Lispro 100 n 2019 IED ANEOUS ed [facility] UNT/ML Human 06:12: Hospital Injectable Lispro 00 PM Solution EST [Humalog] Insulin Human Lispro Insulin Insuli 03/02/ UNSPECIF 15 SUBCUT complet [place] Glargine n 2018 IED ANEOUS ed [facility] 100 UNT/ML Glargi 06:12: [facility]pi [facility] Injectable ne 00 PM Solution EST [Lantus] Insulin Insuli 03/02/ UNSPECIF 15 SUBCUT complet [place] Glargine n 2018 IED ANEOUS ed [facility] 100 UNT/ML Glargi 06:12: [facility]pi [facility] Injectable ne 00 PM Solution EST [Lantus] Insulin Insuli 03/02/ UNSPECIF 6 SUBCUT active [place] Lispro 100 n 2018 IED ANEOUS [facility] UNT/ML Human 06:12: Hospital Injectable Lispro 00 PM Solution EST [Humalog] Insulin Human Lispro Pen Needle 03/01/ NOT complet Michelle t - NOT 2018 APPLIC ed [facility] 12:[facility] 00 AM EST Risperidone Risper TABLET 0.25 ORAL complet W mera 0.5 MG Oral idone mg ed [facility] Tablet [facility] Risperidone Risper TABLET 1 mg ORAL complet W mera 1 MG Oral idone ed [facility] Tablet [facility] Sertraline Sertra TABLET 200 ORAL complet Wh ite 100 MG Oral line mg ed [facility] Tablet Hcl Hospital [Zoloft] Sertraline Hcl Sertraline Sertra TABLET 1 ORAL complet Wh ite 50 MG Oral line {Caps ed [facility] Tablet Hcl ule} Hospital [Zoloft] Sertraline Hcl Lisinopril Lisino TABLET 2.5 ORAL complet Wh ite 2.5 MG Oral pril mg ed [facility] Tablet [facility] Lisinopril Lisino TABLET 2.5 ORAL complet Wh ite 2.5 MG Oral pril mg ed [facility] Tablet [facility] Mirtazapine Mirtaz TABLET 30 mg ORAL complet [place] 30 MG Oral apine ed [facility] Tablet [facility] aripiprazol Aripip TABLET 5 mg ORAL complet W mera e 5 MG Oral razole ed [facility] Tablet [facility] [Abilify] Aripiprazol e Lactulose Lactul SOLUTION 10 g ORAL complet W mera 667 MG/ML ose ed [facility] Solution Mirtazapine Mirtaz TABLET 30 mg ORAL complet [place] 30 MG Oral apine ed [facility]t [facility] aripiprazol Aripip TABLET 10 mg ORAL complet White e 10 MG razole ed [facility] Oral Tablet [facility] [Abilify] Aripiprazol e Mirtazapine Mirtaz TABLET 15 mg ORAL complet [place] 15 MG Oral apine ed [facility] Tablet [facility] [Remeron] Lisinopril Lisino TABLET 2.5 ORAL complet Wh ite 2.5 MG Oral pril mg ed [facility]t [facility] Risperidone Risper TABLET 1 mg ORAL complet W mera 1 MG Oral idone ed [facility] Tablet [facility] aripiprazol Aripip TABLET 10 mg ORAL complet White e 10 MG razole ed [facility] Oral [facility]t [facility] [Abilify] Aripiprazol e Mirtazapine Mirtaz TABLET 30 mg ORAL complet [place] 30 MG Oral apine ed [facility]t [facility] Mirtazapine Mirtaz TABLET 30 mg ORAL complet [place] 30 MG Oral apine ed [facility] Tablet [facility] Sertraline Sertra TABLET 200 ORAL complet Wh ite 100 MG Oral line mg ed [facility] Tablet [facility] [Zoloft] Sertraline Hcl aripiprazol Aripip TABLET 10 mg ORAL complet [place] e 10 MG razole ed [facility] Oral Tablet [facility] [Abilify] Aripiprazol e Risperidone Risper TABLET 0.25 ORAL complet W mera 0.5 MG Oral idone mg ed [facility] Tablet [facility] Sertraline Sertra TABLET 200 ORAL complet Wh ite 100 MG Oral line mg ed [facility] Tablet [facility] [Zoloft] Sertraline Hcl Sertraline Sertra TABLET 200 ORAL complet Wh ite 100 MG Oral line mg ed [facility] Tablet [facility] [Zoloft] Sertraline Hcl aripiprazol Aripip TABLET 5 mg ORAL complet W mera e 5 MG Oral razole ed [facility] Tablet [facility] [Abilify] Aripiprazol e Sertraline Sertra TABLET 200 ORAL complet Wh ite 100 MG Oral line mg ed [facility] Tablet [facility] [Zoloft] Sertraline Hcl Mirtazapine Mirtaz TABLET 30 mg ORAL complet [place] 30 MG Oral apine ed [facility]t [facility] Mirtazapine Mirtaz TABLET 30 mg ORAL complet [place] 30 MG Oral apine ed [facility] Tablet [facility] Risperidone Risper TABLET 1 mg ORAL complet W mera 1 MG Oral idone ed [facility]t [facility] Mirtazapine Mirtaz TABLET 15 mg ORAL complet [place] 15 MG Oral apine ed [facility] Tablet [facility] [Remeron] Sertraline Sertra TABLET 1 ORAL complet Wh ite 50 MG Oral line {Caps ed [facility] Tablet Hcl ule} Hospital [Zoloft] Sertraline Hcl aripiprazol Aripip TABLET 5 mg ORAL complet W mera e 5 MG Oral razole ed [facility] Tablet [facility] [Abilify] Aripiprazol e aripiprazol Aripip TABLET 5 mg ORAL complet W mera e 5 MG Oral razole ed [facility] Tablet [facility] [Abilify] Aripiprazol e Mirtazapine Mirtaz TABLET 15 mg ORAL complet [place] 15 MG Oral apine ed [facility] Tablet [facility] [Remeron] Lisinopril Lisino TABLET 2.5 ORAL complet Wh ite 2.5 MG Oral pril mg ed [facility]t [facility] aripiprazol Aripip TABLET 10 mg ORAL complet White e 10 MG razole ed [facility]t [facility] [Abilify] Aripiprazol e Sertraline Sertra TABLET 1 ORAL complet Wh ite 50 MG Oral line {Caps ed [facility] Tablet Hcl ule} Hospital [Zoloft] Sertraline Hcl Risperidone Risper TABLET 1 mg ORAL complet W mera 1 MG Oral idone ed [facility]t [facility] Mirtazapine Mirtaz TABLET 30 mg ORAL complet [place] 30 MG Oral apine ed [facility] Sertraline Sertra TABLET 200 ORAL complet Wh ite 100 MG Oral line mg ed [facility] Tablet [facility] [Zoloft] Sertraline Hcl Lactulose Lactul SOLUTION 10 g ORAL complet W mera 667 MG/ML ose ed [facility] Solution Mirtazapine Mirtaz TABLET 30 mg ORAL complet [place] 30 MG Oral apine ed [facility]t [facility] Lactulose Lactul SOLUTION 10 g ORAL complet W mera 667 MG/ML ose ed [facility] Solution Lactulose Lactul SOLUTION 10 g ORAL complet W mera 667 MG/ML ose ed [facility] Solution Risperidone Risper TABLET 1 mg ORAL complet W mera 1 MG Oral idone ed [facility] aripiprazol Aripip TABLET 10 mg ORAL complet White e 10 MG razole ed [facility]t [facility] [Abilify] Aripiprazol e aripiprazol Aripip TABLET 5 mg ORAL complet W mera e 5 MG Oral razole ed [facility]t [facility] [Abilify] Aripiprazol e Sertraline Sertra TABLET 200 ORAL complet Wh ite 100 MG Oral line mg ed [facility] Tablet [facility] [Zoloft] Sertraline Hcl Risperidone Risper TABLET 0.25 ORAL complet W mera 0.5 MG Oral idone mg ed [facility]t [facility] aripiprazol Aripip TABLET 5 mg ORAL complet W mera e 5 MG Oral razole ed [facility]t [facility] [Abilify] Aripiprazol e Sertraline Sertra TABLET 1 ORAL complet Wh ite 50 MG Oral line {Caps ed [facility] Tablet Hcl ule} Hospital [Zoloft] Sertraline Hcl Sertraline Sertra TABLET 1 ORAL complet Wh ite 50 MG Oral line {Caps ed [facility] Tablet Hcl ule} Hospital [Zoloft] Sertraline Hcl Risperidone Risper TABLET 1 mg ORAL complet W mera 1 MG Oral idone ed [facility] Risperidone Risper TABLET 1 mg ORAL complet W mera 1 MG Oral idone ed [facility] Mirtazapine Mirtaz TABLET 15 mg ORAL complet [facility] 15 MG Oral apine ed [facility]t [facility] [Remeron] Mirtazapine Mirtaz TABLET 15 mg ORAL complet [place] 15 MG Oral apine ed [facility] [Remeron] Mirtazapine Mirtaz TABLET 15 mg ORAL complet [facility] 15 MG Oral apine ed [facility] [Remeron] Risperidone Risper TABLET 1 mg ORAL complet W mera 1 MG Oral idone ed [facility] Risperidone Risper TABLET 0.25 ORAL complet W mera 0.5 MG Oral idone mg ed [facility] Lactulose Lactul SOLUTION 10 g ORAL complet W mera 667 MG/ML ose ed [facility] Solution aripiprazol Aripip TABLET 5 mg ORAL complet W mera e 5 MG Oral razole ed [facility]t [facility] [Abilify] Aripiprazol e Sertraline Sertra TABLET 200 ORAL complet Wh ite 100 MG Oral line mg ed [facility]t [facility] [Zoloft] Sertraline Hcl Mirtazapine Mirtaz TABLET 30 mg ORAL complet [facility] 30 MG Oral apine ed [facility] Sertraline Sertra TABLET 1 ORAL complet Wh ite 50 MG Oral line {Caps [facility] [facility] [Zoloft] Sertraline Hcl Lactulose Lactul SOLUTION 10 g ORAL complet W [facility] 667 MG/ML ose ed [facility] Solution Sertraline Sertra TABLET 1 ORAL complet [facility] 50 MG Oral line {Caps ed [facility] [Zoloft] Sertraline Hcl Sertraline Sertra TABLET 200 ORAL complet [facility] 100 MG Oral line mg ed [facility] [Zoloft] Sertraline Hcl aripiprazol Aripip TABLET 5 mg ORAL complet W [facility]era e 5 MG Oral razole ed [facility] [Abilify] Aripiprazol e Mirtazapine Mirtaz TABLET 15 mg ORAL complet [facility] 15 MG Oral apine ed [facility] [Remeron] Risperidone Risper TABLET 1 mg ORAL complet W mera 1 MG Oral idone ed [facility] Mirtazapine Mirtaz TABLET 30 mg ORAL complet [facility] 30 MG Oral apine ed [facility] aripiprazol Aripip TABLET 10 mg ORAL complet White e 10 MG razole ed [facility] [Abilify] Aripiprazol e Risperidone Risper TABLET 1 mg ORAL complet W mera 1 MG Oral idone ed [facility] Mirtazapine Mirtaz TABLET 30 mg ORAL complet [facility] 30 MG Oral apine ed [facility] Risperidone Risper TABLET 1 mg ORAL complet W mera 1 MG Oral idone ed [facility] Sertraline Sertra TABLET 1 ORAL complet Wh ite 50 MG Oral line {Caps ed [facility] [Zoloft] Sertraline Hcl aripiprazol Aripip TABLET 10 mg ORAL complet White e 10 MG razole ed [facility] [Abilify] Aripiprazol e Sertraline Sertra TABLET 1 ORAL complet Wh ite 50 MG Oral line {Caps ed [facility] [Zoloft] Sertraline Hcl Mirtazapine Mirtaz TABLET 30 mg ORAL complet White 30 MG Oral apine ed [facility] Lactulose Lactul SOLUTION 10 g ORAL complet W mera 667 MG/ML ose ed [facility] Solution Lisinopril Lisino TABLET 2.5 ORAL complet Wh ite 2.5 MG Oral pril mg ed [facility] aripiprazol Aripip TABLET 10 mg ORAL complet White e 10 MG razole ed [facility] [Abilify] Aripiprazol e Sertraline Sertra TABLET 1 ORAL complet Wh ite 50 MG Oral line {Caps ed [facility] [Zoloft] Sertraline Hcl Lactulose Lactul SOLUTION 10 g ORAL complet W mera 667 MG/ML ose ed [facility] Solution Mirtazapine Mirtaz TABLET 15 mg ORAL complet [place] 15 MG Oral apine ed [facility] [Remeron] Lactulose Lactul SOLUTION 10 g ORAL complet W mera 667 MG/ML ose ed [facility] Solution aripiprazol Aripip TABLET 5 mg ORAL complet W mera e 5 MG Oral razole ed [facility] [Abilify] Aripiprazol e Lactulose Lactul SOLUTION 10 g ORAL complet W mera 667 MG/ML ose ed [facility] Solution aripiprazol Aripip TABLET 10 mg ORAL complet White e 10 MG razole ed [facility] [Abilify] Aripiprazol e Sertraline Sertra TABLET 200 ORAL complet Wh ite 100 MG Oral line mg ed [facility] [Zoloft] Sertraline Hcl Sertraline Sertra TABLET 200 ORAL complet Wh ite 100 MG Oral line mg ed [facility] [Zoloft] Sertraline Hcl Mirtazapine Mirtaz TABLET 15 mg ORAL complet [facility] 15 MG Oral apine ed [facility] [Remeron] aripiprazol Aripip TABLET 10 mg ORAL complet [facility] e 10 MG razole ed [facility] [Abilify] Aripiprazol e Mirtazapine Mirtaz TABLET 15 mg ORAL complet [facility] 15 MG Oral apine ed [facility] [Remeron] Sertraline Sertra TABLET 1 ORAL complet Wh ite 50 MG Oral line {Caps ed [facility] [Zoloft] Sertraline Hcl Lisinopril Lisino TABLET 2.5 ORAL complet Wh ite 2.5 MG Oral pril mg ed [facility] Risperidone Risper TABLET 0.25 ORAL complet W mera 0.5 MG Oral idone mg ed [facility] aripiprazol Aripip TABLET 5 mg ORAL complet W m[facility] e 5 MG Oral razole ed [facility] [Abilify] Aripiprazol e Risperidone Risper TABLET 0.25 ORAL complet W m[facility] 0.5 MG Oral idone mg ed [facility] Risperidone Risper TABLET 1 mg ORAL complet W mera 1 MG Oral idone ed [facility] Risperidone Risper TABLET 0.25 ORAL complet [facility] m[facility] 0.5 MG Oral idone mg ed [facility] Sertraline Sertra TABLET 200 ORAL complet Wh ite 100 MG Oral line mg ed [facility] [Zoloft] Sertraline Hcl Mirtazapine Mirtaz TABLET 15 mg ORAL complet [place] 15 MG Oral apine ed [facility] [Remeron] Lisinopril Lisino TABLET 2.5 ORAL complet Wh ite 2.5 MG Oral pril mg ed [facility] Risperidone Risper TABLET 0.25 ORAL complet W mera 0.5 MG Oral idone mg ed [facility] Lactulose Lactul SOLUTION 10 g ORAL complet W mera 667 MG/ML ose ed [facility] Solution aripiprazol Aripip TABLET 10 mg ORAL complet [facility] e 10 MG razole ed [facility] [Abilify] Aripiprazol e Lisinopril Lisino TABLET 2.5 ORAL complet Wh ite 2.5 MG Oral pril mg ed [facility] aripiprazol Aripip TABLET 5 mg ORAL complet W m[facility] e 5 MG Oral razole ed [facility] [Abilify] Aripiprazol e Insurance Providers Payer name Policy type Policy ID Covered Covered green party's Policy P jon / Coverage green party ID relationship to Gonsalez Inf ormation type gonsalez [facility] [id number] SP [id number] STRGY-AFF [place] [id number] SP [id number] [facility] [id number] SP [id number] STRGY-AFF [place] [id number] PT [id number] HEALTH PLAN SELF PAY 0000 Self 0000 MEDICAID OP [id number] Self [id number] [facility] AHP [id number] Self [id number] [facility] O SELF PAY [id number] Self [id number] MEDICAID OP [id number] Self [id number] MMC AHP [id number] Self [id number] [facility] MEDICAID [id number] PT [id number] AFFINITY [id number] PT [id number] HEALTH PLAN AFFINITY [id number] PT [id number] ESSENTIAL PLAN 3 SELF PAY [id number] Self [id number] MEDICAID OP [id number] Self [id number] MMC [id number] Self [id number] [facility]FF[facility]/BEAC ON AFFINITY [id number] PT [id number] HEALTH PLAN AFFINITY [id number] PT [id number] HEALTH PLAN SELF PAY 0 Self 0 MEDICAID INP [id number] Self [id number] PSYCH MMC AHP [id number] Self [id number] [facility] AFFINITY [id number] PT [id number] HEALTH PLAN SELF PAY 0 Self 0 MEDICAID INP [id number] Self [id number] F PSYCH SELF PAY 0 Self 0 MEDICAID OP [id number] Self [id number] MMC AHP [id number] Self [id number] [facility] SELF PAY 0000 Self 0000 MEDICAID OP [id number] Self [id number] SELF PAY PT INSURANCE SELF PAY 00 Self 00 MEDICAID INP [id number] Self [id number] F PSYCH AFF[place]ITY [id number] PT [id number] HEALTH PLAN Medicaid [id number] S [id number] Regular Clinic Visit Problems, Conditions, and Diagnoses Code Display Name Description Problem Type Effective Data Sour ce(s) Dates [id number] Moderate manic Moderate manic Complaint 03/08/2019 [facility] RT bipolar I disorder bipolar I 07:00:00 PM ([facility] disorder EST - [facility] 06/28/2019 [place]) 06:15:00 PM EDT Z79.4 jail (current) Z79.4 Diagnosis 01/18/2020 [place] use of insulin 02:58:00 PM Hospital EDT K72.90 Hepatic failure, K72.90 Diagnosis 01/18/[address] [place] unspecified without 02:58:00 PM Hosp ital coma EDT D63.8 Anemia in other D63.8 Diagnosis 01/18/2020 [place] chronic diseases 02:58:00 PM Hospita l classified elsewhere EDT E83.39 Other disorders of E83.39 Diagnosis 01/18/2020 [place] phosphorus metabolism 02:58:00 PM Ho spital EDT E87.5 Hyperkalemia E87.5 Diagnosis 01/18/2020 [place] 02:58:00 PM Hospital EDT K74.60 Unspecified cirrhosis K74.60 Diagnosis 01/18/2020 [facility] of liver 02:58:00 PM Hospital EDT Z68.20 Body mass index (BMI) Z68.20 Diagnosis 01/18/2020 [facility] 20.0-20.9, adult 02:58:00 PM Hospita l EDT E43 Unspecified severe E43 Diagnosis 01/18/2020 [place] protein-calorie 02:58:00 PM Hospital malnutrition EDT Z11.59 Encounter for Z11.59 Diagnosis 01/18/2020 [place] screening for other 02:58:00 PM Hosp ital viral diseases EDT F14.10 Cocaine abuse, F14.10 Diagnosis 01/18/2020 [place] uncomplicated 02:58:00 PM Hospital EDT I10 Essential (primary) I10 Diagnosis 01/18/2020 [place] hypertension 02:58:00 PM Hospital EDT F31.9 Bipolar disorder, F31.9 Diagnosis 01/18/2020 [place] unspecified 02:58:00 PM Hospital EDT Z91.14 Patient's other Z91.14 Diagnosis 01/18/2020 [facility] [place] noncompliance with 02:58:00 PM [facility]pi [facility] medication regimen EDT N17.9 Acute kidney failure, N17.9 Diagnosis 01/18/2020 [facility] unspecified 02:58:00 PM Hospital EDT E11.10 Type 2 diabetes E11.10 Diagnosis 01/18/2020 [place] [facility] mellitus with 02:58:00 PM Hospital ketoacidosis without EDT coma E86.0 Dehydration E86.0 Diagnosis 01/10/2020 [place] 12:45:00 AM Hospital EDT E11.65 Type 2 [...] Z87.891 Personal history of Z87.891 Diagnosis 12/15/2019 [place] nicotine dependence 10:09:00 PM Hosp ital EDT E03.9 Hypothyroidism, E03.9 Diagnosis 12/15/2019 [place] unspecified 10:09:00 PM Hospital EDT K76.6 Portal hypertension K76.6 Diagnosis 12/15/2019 [place] 10:09:00 PM Hospital EDT K70.30 Alcoholic cirrhosis K70.30 Diagnosis 12/15/2019 [place] of liver without 10:09:00 PM Hospita l ascites EDT E83.52 Hypercalcemia E83.52 Diagnosis 12/15/2019 [place] 10:09:00 PM Hospital EDT G92 Toxic encephalopathy G92 Diagnosis 12/15/2019 [facility] 10:09:00 PM Hospital EDT R03.0 Elevated R03.0 Diagnosis 11/30/2019 [place] blood-pressure 05:16:00 PM Hospital reading, without EDT diagnosis of hypertension F19.11 Other psychoactive F19.11 Diagnosis 11/30/2019 [place] substance abuse, in 05:16:00 PM Hosp ital remission EDT F10.11 Alcohol abuse, in F10.11 Diagnosis 11/30/2019 [place] remission 05:16:00 PM Hospital EDT E07.9 Disorder of thyroid, E07.9 Diagnosis 11/30/2019 [facility] unspecified 05:16:00 PM Hospital EDT Z87.820 Personal history of Z87.820 Diagnosis 11/30/2019 [place] traumatic brain 05:16:00 PM Hospital injury EDT E10.65 Type 1 diabetes E10.65 Diagnosis 11/30/2019 [place] mellitus with 05:16:00 PM Hospital hyperglycemia EDT Z91.19 Patient's Z91.19 Diagnosis 11/20/2019 [place] noncompliance with 11:21:00 PM [facility] other medical EDT treatment and regimen T43.225A Adverse effect of T43.225A Diagnosis 11/20/2019 [place] selective serotonin 11:21:00 PM Hosp ital reuptake inhibitors, EDT initial encounter 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 11/20/2019 [place] with hepatic 11:21:00 PM Hospital necrosis, without EDT coma Z91.128 Patient's intentional Z91.128 Diagnosis 11/20/2019 [facility] underdosing of 11:21:00 PM Hospital medication regimen [...] to known F05 Diagnosis 11/20/2019 [facility] physiological 11:21:00 PM Hospital condition EDT E10.10 Type 1 diabetes E10.10 Diagnosis 11/20/2019 [place] mellitus with 11:21:00 PM Hospital ketoacidosis without EDT coma Z13.84 Encounter for ENCOUNTER FOR Diagnosis 11/02/2019 [facility] screening for dental SCREENING FOR 09:23:00 AM [facility] disorders DENTAL DISORDERS EDT [facility] R51 Headache R51 Diagnosis 10/26/2019 [place] 02:30:00 AM Hospital EDT F19.10 Other psychoactive F19.10 Diagnosis 06/17/2019 [place] substance abuse, 09:07:00 PM Hospita l uncomplicated EST F10.21 Alcohol dependence, F10.21 Diagnosis 06/17/2019 [place] in remission 09:07:00 PM Hospital EST F32.9 [...] EST F14.20 Cocaine dependence, F14.20 Diagnosis 05/25/2019 [place] uncomplicated 09:03:00 PM Hospital EST E78.5 Hyperlipidemia, E78.5 Diagnosis 05/25/2019 [place] unspecified 09:03:00 PM Hospital EST R10.13 Epigastric pain R10.13 Diagnosis 05/19/2019 [facility] [place] [facility] 05:49:00 PM Hospital EST E10.8 Type 1 diabetes E10.8 Diagnosis 05/19/2019 [facility] [place] [facility] mellitus with 05:49:00 PM Hospital unspecified EST complications E83.42 Hypomagnesemia E83.42 Diagnosis 05/19/2019 [place] 05:49:00 PM Hospital EST Z79.82 intermediate frame tender (current) Z79.82 Diagnosis 05/19/2019 [place] use of aspirin 05:49:00 PM Hospital EST T43.505A Adverse effect of T43.505A Diagnosis 05/19/2019 [place] unspecified 05:49:00 PM Hospital antipsychotics and EST neuroleptics, initial encounter R94.31 Abnormal R94.31 Diagnosis 05/19/2019 [place] electrocardiogram 05:49:00 PM Hospit al [ECG] [EKG] EST F25.1 Schizoaffective F25.1 Diagnosis 05/19/2019 [place] disorder, depressive 05:49:00 PM Hos pital type EST R45.851 Suicidal ideations R45.851 Diagnosis 05/17/2019 [place] 08:05:00 PM Hospital EST E10.649 Type 1 diabetes E10.649 Diagnosis 04/29/2019 [place] mellitus with 12:53:00 PM Hospital hypoglycemia without EST coma R05 Cough R05 Diagnosis 04/06/2019 [place] 10:11:00 PM Hospital EST E87.6 Hypokalemia E87.6 Diagnosis 04/06/2019 [place] 10:11:00 PM Hospital EST E11.649 Type 2 diabetes E11.649 Diagnosis 04/06/2019 [place] mellitus with 10:11:00 PM Hospital hypoglycemia without EST coma F10.20 Alcohol dependence, F10.20 Diagnosis 03/01/2019 [place] uncomplicated 10:57:00 PM Hospital EST Z79.899 Other intermission coordinator Z79.899 Diagnosis 03/01/2019 [place] [facility] (current) drug 10:57:00 PM Hospital therapy EST F31.4 Bipolar disorder, F31.4 Diagnosis 03/01/2019 [facility] [place] current episode 10:57:00 PM Hospital depressed, severe, EST without psychotic features Z91.5 Personal history of Z91.5 Diagnosis 03/01/2019 [place] self-harm 10:57:00 PM Hospital EST F17.200 Nicotine dependence, F17.200 Diagnosis 02/14/2019 [facility] unspecified, 11:16:00 AM Hospital uncomplicated EST Surgeries/Procedures Procedure Description Date Indications Data Source(s) Physical therapy procedure 01/20/2020 [facility] (regime/therapy) 12:00:00 AM Hospital EDT Electrocardiographic procedure 01/18/2020 [place] (procedure) 12:00:00 AM Hospital EDT Plain chest X-ray (procedure) 01/18/2020 [place] 12:00:00 AM Hospital EDT Computed tomography of head 01/18/2020 [place] without contrast 12:00:00 AM Hospital EDT XR forearm right 01/10/2020 [place] 12:00:00 AM Hospital EDT XR elbow right 01/10/2020 [place] 12:00:00 AM Hospital EDT Plain chest X-ray (procedure) 01/10/2020 [place] 12:00:00 AM Hospital EDT Electrocardiographic procedure 01/10/2020 [place] (procedure) 12:00:00 AM Hospital EDT Hopd covid-19 spec collect 01/10/2020 [facility] 12:00:00 AM Hospital EDT Hydrate iv infusion add-on 01/10/2020 [facility] 12:00:00 AM Hospital EDT Ther/proph/diag inj iv push 01/10/2020 [place] 12:00:00 AM Hospital EDT X-ray exam of forearm 01/10/2020 [place] 12:00:00 AM Hospital EDT X-ray exam of elbow 01/10/[address] [place] 12:00:00 AM Hospital EDT X-ray exam chest 1 view 01/10/2020 [facility] 12:00:00 AM Hospital EDT Electrocardiogram tracing 01/10/2020 [facility] 12:00:00 AM Hospital EDT Reagent strip/blood glucose 01/10/2020 [place] 12:00:00 AM Hospital EDT Comprehen metabolic panel 01/10/2020 [facility] 12:00:00 AM Hospital EDT Mr-staph dna amp probe 01/10/2020 [place] 12:00:00 AM Hospital EDT SARS-COV-2 COVID-19 AMP PRB 01/10/2020 [place] 12:00:00 AM Hospital EDT Complete cbc w/auto diff wbc 01/10/2020 [place] 12:00:00 AM Hospital EDT Emergency dept visit 01/10/2020 [place] 12:00:00 AM Hospital EDT XR forearm right 01/10/2020 [place] 12:00:00 AM Hospital EDT XR elbow right 01/10/2020 [place] 12:00:00 AM Hospital EDT Plain chest X-ray (procedure) 01/10/2020 [place] 12:00:00 AM Hospital EDT Electrocardiographic procedure 01/10/2020 [place] (procedure) 12:00:00 AM Hospital EDT Drug test prsmv chem anlyzr 01/08/2020 [place] 12:00:00 AM Hospital EDT Comprehen metabolic panel 01/08/2020 [facility] 12:00:00 AM Hospital EDT Drug test prsmv chem anlyzr 01/08/2020 [place] 12:00:00 AM Hospital EDT Macroscopic exam arthropod 01/08/2020 [facility] 12:00:00 AM Hospital EDT Blood culture for bacteria 01/08/2020 [facility] 12:00:00 AM Hospital EDT Mr-staph dna amp probe 01/08/2020 [place] 12:00:00 AM Hospital EDT SARS-COV-2 COVID-19 AMP PRB 01/08/2020 [place] 12:00:00 AM Hospital EDT Prothrombin time 01/08/2020 [place] 12:00:00 AM Hospital EDT Complete cbc w/auto diff wbc 01/08/2020 [place] 12:00:00 AM Hospital EDT Thromboplastin time partial 01/08/2020 [place] 12:00:00 AM Hospital EDT Blood gases any combination 01/08/2020 [place] 12:00:00 AM Hospital EDT Urinalysis auto w/o scope 01/08/2020 [facility] 12:00:00 AM Hospital EDT Emergency dept visit 01/08/2020 [place] 12:00:00 AM Hospital EDT Plain chest X-ray (procedure) 01/08/2020 [place] 12:00:00 AM Hospital EDT Plain chest X-ray (procedure) 01/08/2020 [place] 12:00:00 AM Hospital EDT Plain chest X-ray (procedure) 01/08/2020 [place] 12:00:00 AM Hospital EDT RINGERS LACTATE INFUSION 01/08/2020 [facility] 12:00:00 AM Hospital EDT DRUGS UNCLASSIFIED INJECTION 01/08/2020 [place] 12:00:00 AM Hospital EDT Hopd covid-19 spec collect 01/08/2020 [facility] 12:00:00 AM Hospital EDT Hydrate iv infusion add-on 01/08/2020 [facility] 12:00:00 AM Hospital EDT Ther/proph/diag inj iv push 01/08/2020 [place] 12:00:00 AM Hospital EDT X-ray exam chest 1 view 01/08/2020 [facility] 12:00:00 AM Hospital EDT Assay of troponin qual 01/08/2020 [place] 12:00:00 AM Hospital EDT Assay of phosphorus 01/08/[address] [place] 12:00:00 AM Hospital EDT Assay of magnesium 01/08/2020 [facility] [place] [facility] 12:00:00 AM Hospital EDT Assay of lipase 01/08/2020 [place] 12:00:00 AM Hospital EDT Assay of lactic acid 01/08/2020 [facility] [place] [facility] 12:00:00 AM Hospital EDT Reagent strip/blood glucose 01/08/2020 [place] 12:00:00 AM Hospital EDT NORMAL SALINE SOLUTION INFUS 2020 [place] 12:00:00 AM Hospital EDT INSULIN INJECTION 2020 [place] 12:00:00 AM Hospital EDT Reagent strip/blood glucose 2020 [place] 12:00:00 AM Hospital EDT Metabolic panel total ca 2020 [facility] [place] 12:00:00 AM Hospital EDT Complete cbc w/auto diff wbc 2020 [place] 12:00:00 AM Hospital EDT Urinalysis auto w/o scope 2020 [facility] 12:00:00 AM Hospital EDT Ther/proph/diag inj iv push 2020 [place] 12:00:00 AM Hospital EDT Emergency dept visit 2020 [facility] [place] 12:00:00 AM Hospital EDT NORMAL SALINE SOLUTION INFUS 2020 [place] 12:00:00 AM Hospital EDT INSULIN INJECTION 2020 [facility] [place] 12:00:00 AM Hospital EDT Reagent strip/blood glucose 2020 [place] 12:00:00 AM Hospital EDT Metabolic panel total ca 2020 [facility] jimmy [facility] 12:00:00 AM Hospital EDT Complete cbc w/auto diff wbc 2020 [place] 12:00:00 AM Hospital EDT Urinalysis auto w/o scope 2020 [facility] 12:00:00 AM Hospital EDT Ther/proph/diag inj iv push 2020 [place] 12:00:00 AM Hospital EDT Emergency dept visit 2020 [facility] [place] 12:00:00 AM Hospital EDT NORMAL SALINE SOLUTION INFUS 2020 [place] 12:00:00 AM Hospital EDT INSULIN INJECTION 2020 [facility] [place] 12:00:00 AM Hospital EDT Reagent strip/blood glucose 2020 [place] 12:00:00 AM Hospital EDT Metabolic panel total ca 2020 [facility] [place] 12:00:00 AM Hospital EDT Complete cbc w/auto diff wbc 2020 [place] 12:00:00 AM Hospital EDT Urinalysis auto w/o scope 2020 [facility] 12:00:00 AM Hospital EDT Ther/proph/diag inj iv push 2020 [place] 12:00:00 AM Hospital EDT Emergency dept visit 2020 [place] 12:00:00 AM Hospital EDT Hepatitis c revrs trnscrpj 12/29/2019 [facility] 12:00:00 AM Hospital EDT Alpha-fetoprotein serum 12/29/2019 [facility] 12:00:00 AM Hospital EDT Assay of magnesium 12/29/2019 [place] 12:00:00 AM Hospital EDT Hepatic function panel 12/29/2019 [place] 12:00:00 AM Hospital EDT Iron binding test 12/29/2019 [place] 12:00:00 AM Hospital EDT Assay of iron 12/29/2019 [place] 12:00:00 AM Hospital EDT Hepatitis a antibody 12/29/2019 [place] 12:00:00 AM Hospital EDT Hepatitis a igm antibody 12/29/2019 [facility] 12:00:00 AM Hospital EDT Hepatitis b surface ag ia 12/29/2019 [facility] 12:00:00 AM Hospital EDT Hep b surface antibody 12/29/2019 [place] 12:00:00 AM Hospital EDT Hep b core antibody total 12/29/2019 [facility] [place] 12:00:00 AM Hospital EDT Assay of ferritin 12/29/2019 [place] 12:00:00 AM Hospital EDT Metabolic panel total ca 12/29/2019 [facility] [place] 12:00:00 AM Hospital EDT Prothrombin time 12/29/2019 [place] 12:00:00 AM Hospital EDT Complete cbc w/auto diff wbc 12/29/2019 [place] 12:00:00 AM Hospital EDT [id number] total 12/29/2019 [facility] [place] 12:00:00 AM Hospital EDT Hepatitis c revrs trnscrpj 12/29/2019 [facility] 12:00:00 AM Hospital EDT Alpha-fetoprotein serum 12/29/2019 [facility] [place] 12:00:00 AM Hospital EDT Assay of magnesium 12/29/2019 [place] 12:00:00 AM Hospital EDT Hepatic function panel 12/29/2019 [place] 12:00:00 AM Hospital EDT Iron binding test 12/29/2019 [place] 12:00:00 AM Hospital EDT Assay of iron 12/29/2019 [place] 12:00:00 AM Hospital EDT Hepatitis a antibody 12/29/2019 [place] 12:00:00 AM Hospital EDT Hepatitis a igm antibody 12/29/2019 [facility] 12:00:00 AM Hospital EDT Hepatitis b surface ag ia 12/29/2019 [facility] 12:00:00 AM Hospital EDT Hep b surface antibody 12/29/2019 [place] 12:00:00 AM Hospital EDT Hep b core antibody total 12/29/2019 [facility] [place] 12:00:00 AM Hospital EDT Assay of ferritin 12/29/2019 [place] 12:00:00 AM Hospital EDT Metabolic panel total ca 12/29/2019 [facility] 12:00:00 AM Hospital EDT Prothrombin time 12/29/2019 [place] 12:00:00 AM Hospital EDT Complete cbc w/auto diff wbc 12/29/2019 [place] 12:00:00 AM Hospital EDT [id number] total 12/29/2019 [facility] [place] 12:00:00 AM Hospital EDT Hepatitis c revrs trnscrpj 12/29/2019 [facility] 12:00:00 AM Hospital EDT Alpha-fetoprotein serum 12/29/2019 [facility] [place] 12:00:00 AM Hospital EDT Assay of magnesium 12/29/2019 [place] 12:00:00 AM Hospital EDT Hepatic function panel 12/29/2019 [place] 12:00:00 AM Hospital EDT Iron binding test 12/29/2019 [place] 12:00:00 AM Hospital EDT Assay of iron 12/29/2019 [place] 12:00:00 AM Hospital EDT Hepatitis a antibody 12/29/2019 [place] 12:00:00 AM Hospital EDT Hepatitis a igm antibody 12/29/2019 [facility] [place] 12:00:00 AM Hospital EDT Hepatitis b surface ag ia 12/29/2019 [facility] [place] 12:00:00 AM Hospital EDT Hep b surface antibody 12/29/2019 [place] 12:00:00 AM Hospital EDT Hep b core antibody total 12/29/2019 [facility] [place] 12:00:00 AM Hospital EDT Assay of ferritin 12/29/2019 [place] 12:00:00 AM Hospital EDT Metabolic panel total ca 12/29/2019 [facility] [place] 12:00:00 AM Hospital EDT Prothrombin time 12/29/2019 [place] 12:00:00 AM Hospital EDT Complete cbc w/auto diff wbc 12/29/2019 [place] 12:00:00 AM Hospital EDT [id number] total 12/29/2019 [facility] [place] 12:00:00 AM Hospital EDT Physical therapy procedure 12/21/2019 [facility] [place] (regime/therapy) 12:00:00 AM Hospital EDT Electrocardiographic procedure 12/21/2019 [place] (procedure) 12:00:00 AM Hospital EDT Hopd covid-19 spec collect 12/21/2019 [facility] 12:00:00 AM Hospital EDT Gait training therapy 12/21/2019 [place] 12:00:00 AM Hospital EDT Pt eval low complex 20 min 12/21/2019 [facility] [place] 12:00:00 AM Hospital EDT Electrocardiogram tracing 12/21/2019 [facility] [place] 12:00:00 AM Hospital EDT Assay of troponin qual 12/21/2019 [place] 12:00:00 AM Hospital EDT Reagent strip/blood glucose 12/21/2019 [place] 12:00:00 AM Hospital EDT Drug test prsmv chem anlyzr 12/21/2019 [place] 12:00:00 AM Hospital EDT Comprehen metabolic panel 12/21/2019 [facility] [place] 12:00:00 AM Hospital EDT Drug assay clozapine 12/21/2019 [place] 12:00:00 AM Hospital EDT Mr-staph dna amp probe 12/21/2019 [place] 12:00:00 AM Hospital EDT SARS-COV-2 COVID-19 AMP PRB 12/21/2019 [place] 12:00:00 AM Hospital EDT Prothrombin time 12/21/2019 [place] 12:00:00 AM Hospital EDT Complete cbc automated 12/21/2019 [place] 12:00:00 AM [facility] EDT Thromboplastin time partial 12/21/2019 [place] 12:00:00 AM [facility] EDT Urinalysis auto w/o scope 12/21/2019 [facility] [place] 12:00:00 AM [facility] EDT Hydrate iv infusion add-on 12/21/2019 [facility] [place] 12:00:00 AM [facility] EDT Ther/proph/diag inj iv push 12/21/2019 [place] 12:00:00 AM Hospital EDT Emergency dept visit 12/21/2019 [place] 12:00:00 AM [facility] EDT Physical therapy procedure 12/21/2019 [facility] [place] (regime/therapy) 12:00:00 AM Hospital EDT Electrocardiographic procedure 12/21/2019 [place] (procedure) 12:00:00 AM Hospital EDT Hopd covid-19 spec collect 12/21/2019 [facility] [place] 12:00:00 AM [facility] EDT Gait training therapy 12/21/2019 [place] 12:00:00 AM Hospital EDT Pt eval low complex 20 min 12/21/2019 [facility] [place] 12:00:00 AM [facility] EDT Electrocardiogram tracing 12/21/2019 [facility] [place] 12:00:00 AM [facility] EDT Assay of troponin qual 12/21/2019 [place] 12:00:00 AM Hospital EDT Reagent strip/blood glucose 12/21/2019 [place] 12:00:00 AM [facility] EDT Drug test prsmv chem anlyzr 12/21/2019 [place] 12:00:00 AM Hospital EDT Comprehen metabolic panel 12/21/2019 [facility] [place] 12:00:00 AM [facility] EDT Drug assay clozapine 12/21/2019 [place] 12:00:00 AM [facility] EDT Mr-staph dna amp probe 12/21/2019 [place] 12:00:00 AM Hospital EDT SARS-COV-2 COVID-19 AMP PRB 12/21/2019 [place] 12:00:00 AM Hospital EDT Prothrombin time 12/21/2019 [facility] 12:00:00 AM Hospital EDT Complete cbc automated 12/21/2019 [place] 12:00:00 AM Hospital EDT Thromboplastin time partial 12/21/2019 [place] 12:00:00 AM Hospital EDT Urinalysis auto w/o scope 12/21/2019 [facility] [place] 12:00:00 AM [facility] EDT Hydrate iv infusion add-on 12/21/2019 [facility] [place] 12:00:00 AM [facility] EDT Ther/proph/diag inj iv push 12/21/2019 [place] 12:00:00 AM Hospital EDT Emergency dept visit 12/21/2019 [facility] 12:00:00 AM [facility] EDT Physical therapy procedure 12/21/2019 [facility] (regime/therapy) 12:00:00 AM Hospital EDT Electrocardiographic procedure 12/21/2019 [place] (procedure) 12:00:00 AM Hospital EDT Hopd covid-19 spec collect 12/21/2019 [facility] [place] 12:00:00 AM Hospital EDT Gait training therapy 12/21/2019 [place] 12:00:00 AM Hospital EDT Pt eval low complex 20 min 12/21/2019 [facility] 12:00:00 AM Hospital EDT Electrocardiogram tracing 12/21/2019 [facility] 12:00:00 AM Hospital EDT Assay of troponin qual 12/21/2019 [place] 12:00:00 AM Hospital EDT Reagent strip/blood glucose 12/21/2019 [place] 12:00:00 AM Hospital EDT Drug test prsmv chem anlyzr 12/21/2019 [place] 12:00:00 AM Hospital EDT Comprehen metabolic panel 12/21/2019 [facility] 12:00:00 AM Hospital EDT Drug assay clozapine 12/21/2019 [facility] 12:00:00 AM [facility] EDT Mr-staph dna amp probe 12/21/2019 [place] 12:00:00 AM Hospital EDT SARS-COV-2 COVID-19 AMP PRB 12/21/2019 [place] 12:00:00 AM Hospital EDT Prothrombin time 12/21/2019 [facility] 12:00:00 AM Hospital EDT Complete cbc automated 12/21/2019 [place] 12:00:00 AM Hospital EDT Thromboplastin time partial 12/21/2019 [place] 12:00:00 AM Hospital EDT Urinalysis auto w/o scope 12/21/2019 [facility] [place] 12:00:00 AM [facility] EDT Hydrate iv infusion add-on 12/21/2019 [facility] [place] 12:00:00 AM [facility] EDT Ther/proph/diag inj iv push 12/21/2019 [place] 12:00:00 AM Hospital EDT Emergency dept visit 12/21/2019 [facility] 12:00:00 AM [facility] EDT Physical therapy procedure 12/21/2019 [facility] [place] (regime/therapy) 12:00:00 AM Hospital EDT Electrocardiographic procedure 12/21/2019 [place] (procedure) 12:00:00 AM Hospital EDT Physical therapy procedure 12/17/2019 [facility] [place] (regime/therapy) 12:00:00 AM Hospital EDT Physical therapy procedure 12/17/2019 [facility] [place] (regime/therapy) 12:00:00 AM Hospital EDT Physical therapy procedure 12/17/2019 [facility] [place] (regime/therapy) 12:00:00 AM Hospital EDT Physical therapy procedure 12/17/2019 [facility] [place] (regime/therapy) 12:00:00 AM Hospital EDT Physical therapy procedure 12/17/2019 [facility] [place] (regime/therapy) 12:00:00 AM Hospital EDT Physical therapy procedure 12/17/2019 [facility] [place] (regime/therapy) 12:00:00 AM Hospital EDT Physical therapy procedure 12/17/2019 [facility] [place] (regime/therapy) 12:00:00 AM Hospital EDT Physical therapy procedure 12/17/2019 [facility] [place] (regime/therapy) 12:00:00 AM Hospital EDT Physical therapy procedure 12/17/2019 [facility] [place] (regime/therapy) 12:00:00 AM Hospital EDT Physical therapy procedure 12/17/2019 [facility] [place] (regime/therapy) 12:00:00 AM Hospital EDT Plain chest X-ray (procedure) 12/15/2019 [place] 12:00:00 AM Hospital EDT Computed tomography of 12/15/2019 [place] cervical spine without 12:00:00 AM [facility] contrast EDT Computed tomography of head 12/15/2019 [place] without contrast 12:00:00 AM Hospital EDT Electrocardiographic procedure 12/15/2019 [place] (procedure) 12:00:00 AM Hospital EDT Plain chest X-ray (procedure) 12/15/2019 [place] 12:00:00 AM Hospital EDT Computed tomography of 12/15/2019 [place] cervical spine without 12:00:00 AM [facility] EDT Computed tomography of head 12/15/2019 [place] without contrast 12:00:00 AM Hospital EDT Electrocardiographic procedure 12/15/2019 [place] (procedure) 12:00:00 AM Hospital EDT Plain chest X-ray (procedure) 12/15/2019 [place] 12:00:00 AM Hospital EDT Computed tomography of 12/15/2019 [place] cervical spine without 12:00:00 AM [facility] EDT Computed tomography of head 12/15/2019 [place] without contrast 12:00:00 AM Hospital EDT Electrocardiographic procedure 12/15/2019 [place] (procedure) 12:00:00 AM Hospital EDT Plain chest X-ray (procedure) 12/15/2019 [place] 12:00:00 AM Hospital EDT Computed tomography of 12/15/2019 [place] cervical spine without 12:00:00 AM [facility] EDT Computed tomography of head 12/15/2019 [place] without contrast 12:00:00 AM Hospital EDT Electrocardiographic procedure 12/15/2019 [place] (procedure) 12:00:00 AM Hospital EDT Plain chest X-ray (procedure) 12/15/2019 [place] 12:00:00 AM Hospital EDT Computed tomography of 12/15/2019 [place] cervical spine without 12:00:00 AM [facility] EDT Computed tomography of head 12/15/2019 [place] without contrast 12:00:00 AM Hospital EDT Electrocardiographic procedure 12/15/2019 [place] (procedure) 12:00:00 AM Hospital EDT Physical therapy procedure 12/03/2019 [facility] [place] (regime/therapy) 12:00:00 AM Hospital EDT Physical therapy procedure 12/03/2019 [facility] [place] (regime/therapy) 12:00:00 AM Hospital EDT Physical therapy procedure 12/03/2019 [facility] [place] (regime/therapy) 12:00:00 AM Hospital EDT Electrocardiographic procedure 11/30/2019 [place] (procedure) 12:00:00 AM Hospital EDT Computed tomography of head 11/30/2019 [place] without contrast 12:00:00 AM Hospital EDT Electrocardiographic procedure 11/30/2019 [place] (procedure) 12:00:00 AM Hospital EDT Computed tomography of head 11/30/2019 [place] without contrast 12:00:00 AM Hospital EDT Electrocardiographic procedure 11/30/2019 [place] (procedure) 12:00:00 AM Hospital EDT Computed tomography of head 11/30/2019 [place] without contrast 12:00:00 AM Hospital EDT Ultrasonography of abdomen 11/28/2019 [facility] [place] (procedure) 12:00:00 AM [facility] EDT Ultrasonography of abdomen 11/28/2019 [facility] [place] (procedure) 12:00:00 AM Hospital EDT Ultrasonography of abdomen 11/28/2019 [facility] [place] (procedure) 12:00:00 AM Hospital EDT Plain chest X-ray (procedure) 11/25/2019 [place] 12:00:00 AM Hospital EDT Plain chest X-ray (procedure) 11/25/2019 [place] 12:00:00 AM Hospital EDT Plain chest X-ray (procedure) 11/25/2019 [place] 12:00:00 AM Hospital EDT Physical therapy procedure 11/22/2019 [facility] [place] (regime/therapy) 12:00:00 AM [facility] EDT Physical therapy procedure 11/22/2019 [facility] [place] (regime/therapy) 12:00:00 AM Hospital EDT Physical therapy procedure 11/22/2019 [facility] [place] (regime/therapy) 12:00:00 AM Hospital EDT Plain chest X-ray (procedure) 11/20/2019 [place] 12:00:00 AM [facility] EDT Electrocardiographic procedure 11/20/2019 [place] (procedure) 12:00:00 AM Hospital EDT Plain chest X-ray (procedure) 11/20/2019 [place] 12:00:00 AM Hospital EDT Electrocardiographic procedure 11/20/2019 [place] (procedure) 12:00:00 AM Hospital EDT Plain chest X-ray (procedure) 11/20/2019 [place] 12:00:00 AM Hospital EDT Electrocardiographic procedure 11/20/2019 [place] (procedure) 12:00:00 AM Hospital EDT Computed tomography of head 10/26/2019 [place] without contrast 12:00:00 AM Hospital EDT Electrocardiographic procedure 10/26/2019 [place] (procedure) 12:00:00 AM Hospital EDT Physical therapy procedure 06/19/2019 [facility] [place] (regime/therapy) 12:00:00 AM Hospital EST Smoking cessation education 06/18/2019 [place] (procedure) 12:00:00 AM Hospital EST Electrocardiographic procedure 06/17/2019 [place] (procedure) 12:00:00 AM Hospital EST Diagnostic radiography of 06/17/2019 [facility] [place] chest, combined 12:00:00 AM Hospital posteroanterior and lateral EST (procedure) Electrocardiographic procedure 05/25/2019 [place] (procedure) 12:00:00 AM Hospital EST Plain chest X-ray (procedure) 05/25/2019 [place] 12:00:00 AM Hospital EST Computed tomography of head 05/25/2019 [place] without contrast 12:00:00 AM Hospital EST Electrocardiographic procedure 05/25/2019 [place] (procedure) 12:00:00 AM Hospital EST Plain chest X-ray (procedure) 05/25/2019 [place] 12:00:00 AM Hospital EST Computed tomography of head 05/25/2019 [place] without contrast 12:00:00 AM Hospital EST Electrocardiographic procedure 05/21/2019 [place] (procedure) 12:00:00 AM Hospital EST Electrocardiographic procedure 05/21/2019 [place] (procedure) 12:00:00 AM Hospital EST Electrocardiographic procedure 05/21/2019 [place] (procedure) 12:00:00 AM Hospital EST Electrocardiographic procedure 05/21/2019 [place] (procedure) 12:00:00 AM Hospital EST Echocardiography (procedure) 05/20/2019 [place] 12:00:00 AM Hospital EST Electrocardiographic procedure 05/20/2019 [place] (procedure) 12:00:00 AM Hospital EST Echocardiography (procedure) 05/20/2019 [place] 12:00:00 AM Hospital EST Electrocardiographic procedure 05/20/2019 [place] (procedure) 12:00:00 AM Hospital EST Electrocardiographic procedure 05/19/2019 [place] (procedure) 12:00:00 AM Hospital EST Plain chest X-ray (procedure) 05/19/2019 [place] 12:00:00 AM Hospital EST Computed tomography of head 05/19/2019 [place] without contrast 12:00:00 AM Hospital EST Electrocardiographic procedure 05/19/2019 [place] (procedure) 12:00:00 AM Hospital EST Plain chest X-ray (procedure) 05/19/2019 [place] 12:00:00 AM Hospital EST Computed tomography of head 05/19/2019 [place] without contrast 12:00:00 AM Hospital EST Electrocardiographic procedure 05/17/2019 [place] (procedure) 12:00:00 AM Hospital EST INJECTION, THIAMINE HCL, 100 05/17/2019 [facility] 12:00:00 AM Hospital EST NORMAL SALINE SOLUTION INFUS 05/17/2019 [place] 12:00:00 AM Hospital EST INJECTION, LORAZEPAM, 2 MG 05/17/2019 [facility] [place] 12:00:00 AM [facility] EST Electrocardiogram tracing 05/17/2019 [facility] [place] 12:00:00 AM [facility] EST Assay of troponin qual 05/17/2019 [place] 12:00:00 AM Hospital EST Assay of phosphorus 05/17/[address] [place] 12[facility]00:[facility] AM [facility] EST Assay of blood osmolality 05/17/2019 [facility] [place] 12:00:00 AM [facility] EST Assay of magnesium 05/17/2019 [facility] 12:00:00 AM [facility] EST Assay of lactic acid 05/17/2019 [place] 12:00:00 AM Hospital EST Glycosylated hemoglobin test 05/17/2019 [place] 12:00:00 AM Hospital EST Reagent strip/blood glucose 05/17/2019 [place] 12:00:00 AM Hospital EST Electrolyte panel 05/17/2019 [facility] 12:[facility] AM [facility] EST Drug test prsmv chem anlyzr 05/17/2019 [place] 12:00:00 AM Hospital EST Comprehen metabolic panel 05/17/2019 [facility] [place] 12:00:00 AM [facility] EST Drug test prsmv chem anlyzr 05/17/2019 [place] 12:00:00 AM Hospital EST Metabolic panel total ca 05/17/2019 [facility] [place] 12:00:00 AM [facility] EST Complete cbc w/auto diff wbc 05/17/2019 [place] 12:00:00 AM Hospital EST Urinalysis auto w/scope 05/17/2019 [facility] [place] 12:00:00 AM [facility] EST Hydrate iv infusion add-on 05/17/2019 [facility] [place] 12:00:00 AM [facility] EST Tx/pro/dx inj new drug addon 05/17/2019 [place] 12:00:00 AM Hospital EST Tx/pro/dx inj same drug pin drafter 05/17/2019 [place] 12:00:00 AM Hospital EST Ther/proph/diag inj iv push 05/17/2019 [place] 12:00:00 AM Hospital EST Emergency dept visit 05/17/2019 [place] 12:00:00 AM Hospital EST Electrocardiographic procedure 05/17/2019 [place] (procedure) 12:00:00 AM Hospital EST INJECTION, THIAMINE HCL, 100 05/17/2019 [facility] 12:00:00 AM Hospital EST NORMAL SALINE SOLUTION INFUS 05/17/2019 [place] 12:00:00 AM Hospital EST INJECTION, LORAZEPAM, 2 MG 05/17/2019 [facility] [place] 12:00:00 AM [facility] EST Electrocardiogram tracing 05/17/2019 [facility] [place] 12:00:00 AM [facility] EST Assay of troponin qual 05/17/2019 [place] 12:00:00 AM Hospital EST Assay of phosphorus 05/17/[address] [place] 12:00:00 AM [facility] EST Assay of blood osmolality 05/17/2019 [facility] [place] 12:00:00 AM [facility] EST Assay of magnesium 05/17/2019 [facility] 12:00:00 AM [facility] EST Assay of lactic acid 05/17/2019 [place] 12:00:00 AM Hospital EST Glycosylated hemoglobin test 05/17/2019 [place] 12:00:00 AM Hospital EST Reagent strip/blood glucose 05/17/2019 [place] 12:00:00 AM Hospital EST Electrolyte panel 05/17/2019 [place] [facility] [facility] 12:00:[facility] AM [facility] EST Drug test prsmv chem anlyzr 05/17/2019 [place] 12:00:00 AM Hospital EST Comprehen metabolic panel 05/17/2019 [facility] [place] 12:00:00 AM [facility] EST Drug test prsmv chem anlyzr 05/17/2019 [place] 12:00:00 AM Hospital EST Metabolic panel total ca 05/17/2019 [facility] [place] 12:00:00 AM [facility] EST Complete cbc w/auto diff wbc 05/17/2019 [place] 12:00:00 AM Hospital EST Urinalysis auto w/scope 05/17/2019 [facility] [place] 12:00:00 AM [facility] EST Hydrate iv infusion add-on 05/17/2019 [facility] [place] 12:00:00 AM [facility] EST Tx/pro/dx inj new drug addon 05/17/2019 [place] 12:00:00 AM Hospital EST Tx/pro/dx inj same drug pin drafter 05/17/2019 [place] 12:00:00 AM Hospital EST Ther/proph/diag inj iv push 05/17/2019 [place] 12:00:00 AM Hospital EST Emergency dept visit 05/17/2019 [place] 12:00:00 AM Hospital EST Electrocardiographic procedure 05/17/2019 [place] (procedure) 12:00:00 AM Hospital EST Reagent strip/blood glucose 04/29/2019 [place] 12:00:00 AM Hospital EST Metabolic panel total ca 04/29/2019 [facility] [place] 12:00:00 AM [facility] EST Mr-staph dna amp probe 04/29/2019 [place] 12:00:00 AM Hospital EST Complete cbc automated 04/29/2019 [place] 12:00:00 AM Hospital EST Emergency dept visit 04/29/2019 [place] 12:00:00 AM Hospital EST Reagent strip/blood glucose 04/29/2019 [place] 12:00:00 AM Hospital EST Metabolic panel total ca 04/29/2019 [facility] [place] 12:00:00 AM [facility] EST Mr-staph dna amp probe 04/29/2019 [place] 12:00:00 AM Hospital EST Complete cbc automated 04/29/2019 [place] 12:00:00 AM Hospital EST Emergency dept visit 04/29/2019 [place] 12:00:00 AM Hospital EST Reagent strip/blood glucose 04/29/2019 [place] 12:00:00 AM Hospital EST Metabolic panel total ca 04/29/2019 [facility] [place] 12:00:00 AM [facility] EST Mr-staph dna amp probe 04/29/2019 [place] 12:00:00 AM Hospital EST Complete cbc automated 04/29/2019 [place] 12:00:00 AM Hospital EST Emergency dept visit 04/29/2019 [place] 12:00:00 AM Hospital EST METOCLOPRAMIDE HCL INJECTION 04/16/2019 [place] 12:00:00 AM Hospital EST Tx/pro/dx inj new drug addon 04/16/2019 [place] 12:00:00 AM Hospital EST Ther/proph/diag inj iv push 04/16/2019 [place] 12:00:00 AM Hospital EST Reagent strip/blood glucose 04/16/2019 [place] 12:00:00 AM Hospital EST Metabolic panel total ca 04/16/2019 [facility] [place] 12:00:00 AM [facility] EST Mr-staph dna amp probe 04/16/2019 [place] 12:00:00 AM Hospital EST Complete cbc w/auto diff wbc 04/16/2019 [place] 12:00:00 AM Hospital EST Urinalysis auto w/o scope 04/16/2019 [facility] [place] 12:00:00 AM [facility] EST Emergency dept visit 04/16/2019 [facility] 12:00:00 AM [facility] EST [facility] [place] [facility] 12:[facility] posteroanterior and lateral EST (procedure) Emergency dept visit 04/06/2019 [facility] 12:00:00 AM [facility] EST Diagnostic radiography of 04/06/2019 [facility] [place] chest, combined 12:00:00 AM Hospital posteroanterior and lateral EST (procedure) Emergency dept visit 04/06/2019 [facility] 12:00:00 AM [facility] EST Diagnostic radiography of 04/06/2019 [facility] [place] chest, combined 12:00:00 AM Hospital posteroanterior and lateral EST (procedure) Reagent strip/blood glucose 03/09/2019 [place] 12:00:00 AM Hospital EST Drug test prsmv chem anlyzr 03/09/2019 [place] 12:00:00 AM Hospital EST Comprehen metabolic panel 03/09/2019 [facility] [place] 12:00:00 AM [facility] EST Drug test prsmv chem anlyzr 03/09/2019 [place] 12:00:00 AM Hospital EST Mr-staph dna amp probe 03/09/2019 [place] 12:00:00 AM Hospital EST Complete cbc w/auto diff wbc 03/09/2019 [place] 12:00:00 AM Hospital EST Urinalysis auto w/o scope 03/09/2019 [facility] [place] 12:00:00 AM Hospital EST Emergency dept visit 03/09/2019 [facility] 12:00:00 AM [facility] EST Electrocardiographic procedure 03/02/2019 [place] (procedure) 12:00:00 AM Hospital EST Electrocardiographic procedure 03/02/2019 [place] (procedure) 12:00:00 AM Hospital EST Computed tomography of head 03/01/2019 [place] without contrast 12:00:00 AM Hospital EST Electrocardiographic procedure 03/01/2019 [place] (procedure) 12:00:00 AM Hospital EST Plain chest X-ray (procedure) 03/01/2019 [place] 12:00:00 AM Hospital EST Computed tomography of head 03/01/2019 [place] without contrast 12:00:00 AM Hospital EST Electrocardiographic procedure 03/01/2019 [place] (procedure) 12:00:00 AM Hospital EST Plain chest X-ray (procedure) 03/01/2019 [place] 12:00:00 AM Hospital EST Plain chest X-ray (procedure) 02/14/2019 [place] 12:00:00 AM Hospital EDT Computed tomography of head 02/14/2019 [place] without contrast 12:00:00 AM Hospital EDT Electrocardiographic procedure 02/14/2019 [place] (procedure) 12:00:00 AM Hospital EDT INSULIN INJECTION 02/14/2019 [place] [facility] [facility] 12:00:00 AM [facility] EDT INSULIN INJECTION 02/14/2019 [facility] 12:00:[address] head/brain w/o dye 02/14/2019 [place] 12:00:00 AM Hospital EDT X-ray exam chest 1 view 02/14/2019 [facility] [place] 12:00:00 AM [facility] EDT Electrocardiogram tracing 02/14/2019 [facility] [place] 12:00:00 AM Hospital EDT Assay of lipase 02/14/2019 [place] 12:00:00 AM Hospital EDT Reagent strip/blood glucose 02/14/2019 [place] 12:00:00 AM Hospital EDT Drug test prsmv chem anlyzr 02/14/2019 [place] 12:00:00 AM Hospital EDT Comprehen metabolic panel 02/14/2019 [facility] [place] 12:00:00 AM Hospital EDT Drug test prsmv chem anlyzr 02/14/2019 [place] 12:00:00 AM Hospital EDT Metabolic panel total ca 02/14/2019 [facility] [place] 12:00:00 AM [facility] EDT Assay of ammonia 02/14/2019 [place] [facility] 12:00:00 AM [facility] EDT Mr-staph dna amp probe 02/14/2019 [place] 12:00:00 AM Hospital EDT Complete cbc automated 02/14/2019 [place] 12:00:00 AM Hospital EDT Urinalysis auto w/o scope 02/14/2019 [facility] [place] 12:00:00 AM [facility] EDT Hydrate iv infusion add-on 02/14/2019 [facility] [place] 12:00:00 AM [facility] EDT Hydrate iv infusion add-on 02/14/2019 [facility] [place] 12:00:00 AM [facility] EDT Tx/pro/dx inj same drug pin drafter 02/14/2019 [place] 12:00:00 AM Hospital EDT Tx/pro/dx inj same drug pin drafter 02/14/2019 [place] 12:00:00 AM Hospital EDT Ther/proph/diag inj iv push 02/14/2019 [place] 12:00:00 AM Hospital EDT Emergency dept visit 02/14/2019 [facility] 12:00:00 AM [facility] EDT Plain chest X-ray (procedure) 02/14/2019 [place] 12:00:00 AM Hospital EDT Computed tomography of head 02/14/2019 [place] without contrast 12:00:00 AM Hospital EDT Electrocardiographic procedure 02/14/2019 [place] (procedure) 12:00:00 AM Hospital EDT INSULIN INJECTION 02/14/2019 [facility] 12:[facility] AM [facility] EDT INSULIN INJECTION 02/14/2019 [facility] 12:00:[address] head/brain w/o dye 02/14/2019 [place] 12:00:00 AM Hospital EDT X-ray exam chest 1 view 02/14/2019 [facility] [place] 12:00:00 AM [facility] EDT Electrocardiogram tracing 02/14/2019 [facility] [place] 12:00:00 AM Hospital EDT Assay of lipase 02/14/2019 [place] 12:00:00 AM Hospital EDT Reagent strip/blood glucose 02/14/2019 [place] 12:00:00 AM Hospital EDT Drug test prsmv chem anlyzr 02/14/2019 [place] 12:00:00 AM Hospital EDT Comprehen metabolic panel 02/14/2019 [facility] [place] 12:00:00 AM Hospital EDT Drug test prsmv chem anlyzr 02/14/2019 [place] 12:00:00 AM Hospital EDT Metabolic panel total ca 02/14/2019 [facility] [place] 12:00:00 AM Hospital EDT Assay of ammonia 02/14/2019 [facility] 12:00:00 AM Hospital EDT Mr-staph dna amp probe 02/14/2019 [place] 12:00:00 AM Hospital EDT Complete cbc automated 02/14/2019 [place] 12:00:00 AM Hospital EDT Urinalysis auto w/o scope 02/14/2019 [facility] [place] 12:00:00 AM Hospital EDT Hydrate iv infusion add-on 02/14/2019 [facility] 12:00:00 AM Hospital EDT Hydrate iv infusion add-on 02/14/2019 [facility] 12:00:00 AM Hospital EDT Tx/pro/dx inj same drug pin drafter 02/14/2019 [place] 12:00:00 AM Hospital EDT Tx/pro/dx inj same drug pin drafter 02/14/2019 [place] 12:00:00 AM Hospital EDT Ther/proph/diag inj iv push 02/14/2019 [place] 12:00:00 AM Hospital EDT Emergency dept visit 02/14/2019 [facility] 12:00:00 AM [facility] EDT Plain chest X-ray (procedure) 02/14/2019 [place] 12:00:00 AM Hospital EDT Computed tomography of head 02/14/2019 [place] without contrast 12:00:00 AM Hospital EDT Electrocardiographic procedure 02/14/2019 [place] (procedure) 12:00:00 AM Hospital EDT Results ID Date Data Source [id number] 01/21/2020 04:34:00 PM EDT [facility] NOTIFICATION AND READ BACK OF CRITICAL R ESULTS TO NADIR GAGNON RN ICU AT 1624 ON 01/18/20 BY NAGI NAVARRO.REPORTED CRI TICAL VALUES SHOULD BE INTERPRETED WITHIN CLINICAL CONTEXT. Name Value Range Interpretation Description Data Sup porting Code Source(s) Document(s ) Lactate 3.5 [place] [Moles/volum mmol/L Hospital e] in Serum or Plasma ID Date Data Source [id number] 01/21/2020 11:27:00 AM [facility] Manager Social Services:ANN YOSI Name Value Range Interpretation Description Data Sup porting Code Source(s) Document(s ) Glucose 289 mg/dL [facility] [Mass/volume] Hospital in Capillary blood by Glucometer ID Date Data Source [id number] 01/21/2020 08:54:00 AM [facility] Name Value Range Interpretation Description Data Sup porting Code Source(s) Document(s ) Phosphate 2.6 mg/dL [facility] [Mass/volume] Hospital in Serum or Plasma ID Date Data Source [id number] 01/21/2020 08:54:00 AM [facility] Name Value Range Interpretation Description Data Sup porting Code Source(s) Document(s ) Magnesium 1.8 mg/dL [facility] [Mass/volume] Hospital in Serum or Plasma ID Date Data Source [id number] 01/21/2020 08:54:00 AM [facility] Name Value Range Interpretation Description Data Sup porting Code Source(s) Document(s ) Aspartate 52 U/L [facility] amin[facility] [place] [Enzymatic Hospital activity/volume] in Serum or Plasma ID Date Data Source [id number] 01/21[facility] Value Range Interpretation Description Data Sup porting Code Source(s) Document(s ) Alanine 28 U/L White aminotransferase [place] [Enzymatic Hospital activity/volume] in Serum or Plasma ID Date Data Source [id number] [facility]2020 [facility] Value Range Interpretation Description Data Sup porting Code Source(s) Document(s ) Alkaline 76 U/L [facility] [Enzymatic activity/volume ] in Serum or Plasma ID Date Data Source [id number] 01/21/2020 08:54:00 AM EDT [facility] Name Value Range Interpretation Description Data Sup porting Code Source(s) Document(s ) Bilirubin.t 1.5 mg/dL [facility] [Mass/volum e] in Serum or Plasma ID Date Data Source [id number] 01/21/2020 08:54:00 AM EDT [facility] Name Value Range Interpretation Code Description Data Bryanna rce(s) Supporting Document(s ) Albumin/Glob 0.9 [facility] [Mass [facility] Ratio] in Serum or Plasma ID Date Data Source [id number] 01/21/2020 08:54:00 AM EDT [facility] Name Value Range Interpretation Description Data Sup porting Code Source(s) Document(s ) Albumin 2.6 g/dL [facility] [place] [Mass/volume Hospital ] in Serum or Plasma ID Date Data Source [id number] 01/21/2020 08:54:00 AM EDT [facility] Name Value Range Interpretation Description Data Sup porting Code Source(s) Document(s ) Protein 5.4 g/dL [facility] [Mass/volume Hospital ] in Serum or Plasma ID Date Data Source [id number] 01/21/2020 08:54:00 AM EDT [facility] Name Value Range Interpretation Description Data Sup porting Code Source(s) Document(s ) Calcium 8.5 mg/dL [facility] [Mass/volume Hospital ] in Serum or Plasma ID Date Data Source [id number] 01/21/2020 08:54:00 AM EDT [facility] Name Value Range Interpretation Code Description Data Bryanna rce(s) Supporting Document(s ) Urea 13.3 [facility] nitrogen/[facility] atinine [Mass Ratio] in Serum or Plasma ID Date Data Source [id number] 01/21/2020 08:54:00 AM EDT [facility] Value Range Interpretation Description Data Sup porting Code Source(s) Document(s ) Creatinine 0.6 mg/dL [facility] [Mass/volume] Hospital in Serum or Plasma ID Date Data Source [id number] 01/21/2020 08:54:00 AM EDT [facility] Value Range Interpretation Description Data Sup porting Code Source(s) Document(s ) Urea nitrogen 8 mg/dL [facility] [Mass/volume] Hospital in Serum or Plasma ID Date Data Source [id number] 01/21/2020 08:54:00 AM EDT [facility] Value Range Interpretation Code Description Data Bryanna rce(s) Supporting Document(s ) Anion gap in 7 [facility] Serum or [facility] Plasma ID Date Data Source [id number] 01/21/2020 08:54:00 AM EDT [facility] Value Range Interpretation Description Data Sup porting Code Source(s) Document(s ) Carbon 31 mmol/L [facility] dioxide, Hospital total [Moles/volu me] in Serum or Plasma ID Date Data Source [id number] 01/21/2020 08:54:00 AM EDT [facility] Value Range Interpretation Description Data Sup porting Code Source(s) Document(s ) Chloride 107 [facility] [Moles/volum mmol/L Hospital e] in Serum or Plasma ID Date Data Source [id number] 01/21/2020 08:54:00 AM EDT [facility] Value Range Interpretation Description Data Sup porting Code Source(s) Document(s ) Potassium 3.9 [facility] [Moles/volume mmol/L Hospital ] in Serum or Plasma ID Date Data Source [id number] 01/21/2020 08:54:00 AM EDT [facility] Name Value Range Interpretation Description Data Sup porting Code Source(s) Document(s ) Sodium 141 mmol/L [facility] [Moles/volu Hospital mi] in Serum or Plasma ID Date Data Source [id number] 01/21/2020 08:54:00 AM EDT [facility] Value Range Interpretation Description Data Sup porting Code Source(s) Document(s ) Glucose 126 mg/dL [facility] [place] [Mass/volume Hospital ] in Serum or Plasma ID Date Data Source [id number] 01/21/2020 08:54:00 AM EDT [facility] Value Range Interpretation Description Data Sup porting Code Source(s) Document(s ) Manual MANUAL [facility] differential Hospital performed [Presence] in Blood ID Date Data Source [id number] 01/21/2020 08:54:00 AM EDT [facility] Value Range Interpretation Code Description Data Bryanna rce(s) Supporting Document(s ) Cells 100 [facility] Total [#] in Blood ID Date Data Source [id number] 01/21/2020 08:54:00 AM EDT [facility] Value Range Interpretation Code Description Data Supporting Source(s) Document(s ) PLATELET NORMAL [facility] Hospital ID Date Data Source [id number] 01/21/2020 08:54:00 AM EDT [facility] Value Range Interpretation Code Description Data Supporting Source(s) Document(s ) POLYCHROMASIA 1+ [facility] ID Date Data Source [id number] 01/21/2020 08:54:00 AM EDT [facility] Value Range Interpretation Code Description Data Bryanna rce(s) Supporting Document(s ) HYPOCHROMIA 1+ [facility] ID Date Data Source [id number] 01/21/2020 08:54:00 AM EDT [facility] Name Value Range Interpretation Description Data Sup porting Code Source(s) Document(s ) Eosinophils 0.30 [facility] [#/volume] in 10*3/uL Hospital Blood by Manual count ID Date Data Source [id number] 01/21/2020 08:54:00 AM EDT [facility] Name Value Range Interpretation Description Data Sup porting Code Source(s) Document(s ) Monocytes 0.12 [facility] [#/volume] in 10*3/uL Hospital Blood by Manual count ID Date Data Source [id number] 01/21/2020 08:54:00 AM EDT [facility] Value Range Interpretation Description Data Sup porting Code Source(s) Document(s ) Lymphocytes 1.77 [facility] [#/volume] in 10*3/uL Hospital Blood by Manual count ID Date Data Source [id number] 01/21/2020 08:54:00 AM EDT [facility] Value Range Interpretation Description Data Sup porting Code Source(s) Document(s ) Neutrophils 0.81 [facility] [#/volume] in 10*3/uL Hospital Blood by Manual count ID Date Data Source [id number] 01/21/2020 08:54:00 AM EDT [facility] Value Range Interpretation Description Data Sup porting Code Source(s) Document(s ) Eosinophils/100 10 % [facility] leukocytes in Hospital Blood by Manual count ID Date Data Source [id number] 01/21/2020 08:54:00 AM EDT [facility] Name Value Range Interpretation Description Data Sup porting Code Source(s) Document(s ) Monocytes/100 4 % [facility] leukocytes in Hospital Blood by Manual count ID Date Data Source [id number] 01/21/2020 08:54:00 AM EDT [facility] Name Value Range Interpretation Description Data Sup porting Code Source(s) Document(s ) Lymphocytes/100 59 % [facility] leukocytes in Hospital Blood by Manual count ID Date Data Source [id number] 01/21/2020 08:54:00 AM EDT [facility] Name Value Range Interpretation Description Data Sup porting Code Source(s) Document(s ) Neutrophils/100 27 % [facility] leukocytes in Hospital Blood by Manual count ID Date Data Source [id number] 01/21/2020 08:54:00 AM EDT [facility] Name Value Range Interpretation Description Data Sup porting Code Source(s) Document(s ) Platelet mean 11.2 fL [facility] volume Hospital [Entitic volume] in Blood by Automated count ID Date Data Source [id number] 01/21/2020 08:54:00 AM EDT [facility] Value Range Interpretation Description Data Sup porting Code Source(s) Document(s ) Platelets 149 [facility] [#/volume] in 10*3/uL Hospital Blood by Automated count ID Date Data Source [id number] 01/21/2020 08:54:00 AM EDT [facility] Value Range Interpretation Description Data Sup porting Code Source(s) Document(s ) Erythrocyte 14.2 % [facility] distribution Hospital width [Ratio] by Automated count ID Date Data Source [id number] 01/21/2020 08:54:00 AM EDT [facility] Value Range Interpretation Description Data Sup porting Code Source(s) Document(s ) Erythrocyte mean 32.9 [facility] corpuscular g/dL Hospital hemoglobin concentration [Mass/volume] by Automated count ID Date Data Source [id number] 01/21/2020 08:54:00 AM EDT [facility] Name Value Range Interpretation Description Data Sup porting Code Source(s) Document(s ) Erythrocyte 30.1 pg [facility] corpuscular hemoglobin [Entitic mass] by Automated count ID Date Data Source [id number] 01/21/2020 08:54:00 AM EDT [facility] Value Range Interpretation Description Data Sup porting Code Source(s) Document(s ) Erythrocyte 91.5 fL [facility] corpuscular volume [Entitic volume] by Automated count ID Date Data Source [id number] 01/21/2020 08:54:00 AM EDT [facility] Value Range Interpretation Description Data Sup porting Code Source(s) Document(s ) Hematocrit 34.3 % [facility] [Volume Hospital Fraction] of Blood by Automated count ID Date Data Source [id number] 01/21/2020 08:54:00 AM EDT [facility] Value Range Interpretation Description Data Sup porting Code Source(s) Document(s ) Hemoglobin 11.3 g/dL [facility] [Mass/volume] Hospital in Blood ID Date Data Source [id number] 01/21/2020 08:54:00 AM EDT [facility] Value Range Interpretation Description Data Sup porting Code Source(s) Document(s ) Erythrocytes 3.75 [facility] [#/volume] in 10*6/uL Hospital Blood by Automated count ID Date Data Source [id number] 01/21/2020 08:54:00 AM EDT [facility] Value Range Interpretation Description Data Sup porting Code Source(s) Document(s ) Leukocytes 3.0 [facility] [#/volume] in 10*3/uL Hospital Blood by Automated count ID Date Data Source [id number] 01/20/2020 04:50:00 PM EDT [facility] Name Value Range Interpretation Description Data Sup porting Code Source(s) Document(s ) GLUCOSE RN Notified [facility] Hospital ID Date Data Source [id number] 01/20/2020 06:19:00 AM EDT [facility] Value Range Interpretation Code Description Data Supporting Source(s) Document(s ) NUCLEATED RBCS 0.0 % [facility] (AUTO Hospital DIFF%)DIS ID Date Data Source [id number] [facility] Description Data Sup porting Code Source(s) Document(s ) Differential AUTOMATED [facility] cell count [facility] method - Blood ID Date Data Source [id number] 01/20[facility]2020 [facility] Interpretation Description Data Sup porting Code Source(s) Document(s ) Immature 0.00 [facility] granulocytes 10*3/uL Hospital [#/volume] in Blood by Automated count ID Date Data Source [id number] 01/20/2020 [facility] Interpretation Description Data Sup porting Code Source(s) Document(s ) Basophils 0.02 [facility] [#/volume] in 10*3/uL Hospital Blood by Automated count ID Date Data Source [id number] 01/20/2020 [facility] Interpretation Description Data Sup porting Code Source(s) Document(s ) Eosinophils 0.19 [facility] [#/volume] in 10*3/uL Hospital Blood by Automated count ID Date Data Source [id number] 01/20/2020 06:19:00 AM EDT [facility] Value Range Interpretation Description Data Sup porting Code Source(s) Document(s ) Monocytes 0.35 [facility] [#/volume] in 10*3/uL Hospital Blood by Automated count ID Date Data Source [id number] 01/20/2020 06:19:00 AM EDT [facility] Name Value Range Interpretation Description Data Sup porting Code Source(s) Document(s ) Lymphocytes 2.02 [facility] [#/volume] in 10*3/uL Hospital Blood by Automated count ID Date Data Source [id number] 01/20/2020 06:19:00 AM EDT [facility] Value Range Interpretation Description Data Sup porting Code Source(s) Document(s ) Neutrophils 0.93 [facility] [place] [#/volume] in 10*3/uL [facility] Blood by Automated count ID Date Data Source [id number] 01/20/2020 06:19:00 AM EDT [facility] Value Range Interpretation Description Data Sup porting Code Source(s) Document(s ) Nucleated 0.0 % [facility] erythrocytes/10 Hospital 0 leukocytes [Ratio] in Blood by Automated count ID Date Data Source [id number] 01/20/2020 06:19:00 AM EDT [facility] Value Range Interpretation Description Data Sup porting Code Source(s) Document(s ) Immature 0.0 % [facility] granulocytes/10 Hospital 0 leukocytes in Blood by Automated count ID Date Data Source [id number] 01/20/2020 06:19:00 AM EDT [facility] Value Range Interpretation Description Data Sup porting Code Source(s) Document(s ) Basophils/100 0.6 % [facility] leukocytes in Hospital Blood by Automated count ID Date Data Source [id number] 01/20/2020 06:19:00 AM EDT [facility] Value Range Interpretation Description Data Sup porting Code Source(s) Document(s ) Eosinophils/100 5.4 % [facility] leukocytes in Hospital Blood by Automated count ID Date Data Source [id number] 01/20/2020 06:19:00 AM EDT [facility] Name Value Range Interpretation Description Data Sup porting Code Source(s) Document(s ) Monocytes/100 10.0 % [facility] leukocytes in Hospital Blood by Automated count ID Date Data Source [id number] 01/20/2020 06:19:00 AM EDT [facility] Name Value Range Interpretation Description Data Sup porting Code Source(s) Document(s ) Lymphocytes/10 57.5 % [facility] 0 leukocytes Hospital in Blood by Automated count ID Date Data Source [id number] 01/20/2020 06:19:00 AM EDT [facility] Name Value Range Interpretation Description Data Sup porting Code Source(s) Document(s ) Neutrophils/10 26.5 % [facility] 0 leukocytes Hospital in Blood by Automated count ID Date Data Source [id number] 01/19/2020 10:29:00 AM EDT [facility] Name Value Range Interpretation Description Data Sup porting Code Source(s) Document(s ) Ammonia 47 mmol/L [facility] [Moles/volum Hospital e] in Plasma ID Date Data Source [id number] 01/18/2020 01:42:00 PM EDT [facility] Value Range Interpretation Code Description Data Bryanna rce(s) Supporting Document(s ) ABG TEMP 97.7 [facility] ID Date Data Source [id number] 01/18/2020 01:42:00 PM EDT [facility] Name Value Range Interpretation Code Description Data Bryanna rce(s) Supporting Document(s ) FIO2 21 % [facility] ID Date Data Source [id number] 01/18/2020 01:42:00 PM EDT [facility] Name Value Range Interpretation Code Description Data Bryanna rce(s) Supporting Document(s ) ABG BE -12.8 [facility] mmol/L Hospital ID Date Data Source [id number] 01/18/2020 01:42:00 PM EDT [facility] Value Range Interpretation Code Description Data Bryanna rce(s) Supporting Document(s ) ABG O2SAT 82 % [facility] ID Date Data Source [id number] 01/18/2020 01:42:00 PM EDT [facility] Value Range Interpretation Code Description Data Bryanna rce(s) Supporting Document(s ) ABG HCO3 13 mmol/L [facility] ID Date Data Source [id number] 01/18/2020 01:42:00 PM EDT [facility] Value Range Interpretation Code Description Data Bryanna rce(s) Supporting Document(s ) ABG PO2 53 mm[Hg] [facility] ID Date Data Source [id number] 01/18/2020 01:42:00 PM EDT [facility] Value Range Interpretation Code Description Data Bryanna rce(s) Supporting Document(s ) ABG PCO2 30 mm[Hg] [facility] ID Date Data Source [id number] 01/18/2020 01:42:00 PM EDT [facility] Value Range Interpretation Code Description Data Bryanna rce(s) Supporting Document(s ) ABG PH 7.26 [facility] ID Date Data Source [id number] 01/18/2020 01:42:00 PM EDT [facility] Value Range Interpretation Code Description Data Bryanna rce(s) Supporting Document(s ) ABG MODE Room Air [facility] ID Date Data Source [id number] 01/18/2020 01:42:00 PM EDT [facility] Value Range Interpretation Description Data Sup porting Code Source(s) Document(s ) ABG SITE Peripheral [facility] Hospital ID Date Data Source [id number] 01/18/2020 01:42:00 PM EDT [facility] Value Range Interpretation Code Description Data Bryanna rce(s) Supporting Document(s ) JORGE TEST POSITIVE [facility] ID Date Data Source [id number] 01/18/2020 01:42:00 PM EDT [facility] Value Range Interpretation Code Description Data Bryanna rce(s) Supporting Document(s ) READ BACK Yes/MD [facility] ID Date Data Source [id number] 01/18/2020 01:42:00 PM EDT [facility] Value Range Interpretation Code Description Data Bryanna rce(s) Supporting Document(s ) NOTE WHO [facility] ael ID Date Data Source [id number] 01/18/2020 01:42:00 PM EDT [facility] Value Range Interpretation Description Data Sup porting Code Source(s) Document(s ) IONIZED 1.46 [facility] CALCIUM mmol/L Hospital ID Date Data Source [id number] 01/18/2020 01:42:00 PM EDT [facility] Value Range Interpretation Code Description Data Supporting Source(s) Document(s ) METHEMOGLOBIN 0.7 % [facility] ID Date Data Source [id number] 01/18/2020 01:42:00 PM EDT [facility] Value Range Interpretation Description Data Sup porting Code Source(s) Document(s ) CARBOXYHEMOGLOBIN 0.7 % [facility] ID Date Data Source [id number] 01/18/2020 01:29:00 PM EDT [facility] CUT-OFF >= 25 NG/ML.THE FINDINGS OF [...] rce(s) Supporting Document(s ) PCP (UR) NEGATIVE [facility] ID Date Data Source [id number] 01/18/2020 01:29:00 PM EDT [facility] CUT-OFF >= 50 NG/ML. Name Value Range Interpretation Code Description Data Bryanna rce(s) Supporting Document(s ) THC (UR) NEGATIVE [facility] ID Date Data Source [id number] 01/18/2020 01:29:00 PM EDT [facility] CUT-OFF >= 300 NG/ML. Name Value Range Interpretation Description Data Sup porting Code Source(s) Document(s ) OPIATES (UR) NEGATIVE [facility] ID Date Data Source [id number] 01/18/2020 01:29:00 PM EDT [facility] CUT-OFF >= 300 NG/ML. Name Value Range Interpretation Description Data Sup porting Code Source(s) Document(s ) COCAINE (UR) NEGATIVE [facility] ID Date Data Source [id number] 01/18/2020 01:29:00 PM EDT [facility] CUT-OFF >= 200 NG/ML. Name Value Range Interpretation Description Data Sup porting Code Source(s) Document(s ) BENZODIAZEPINES NEGATIVE [place] (UR) [facility] ID Date Data Source [id number] 01/18/2020 01:29:00 PM EDT [facility] CUT-OFF >= 200 NG/ML. Name Value Range Interpretation Description Data Sup porting Code Source(s) Document(s ) BARBITURATES NEGATIVE [facility] (UR) Hospital ID Date Data Source [id number] 01/18/2020 01:29:00 PM EDT [facility] CUT-OFF >= 1000 NG/ML. Name Value Range Interpretation Description Data Sup porting Code Source(s) Document(s ) AMPHETAMINES NEGATIVE [facility] (UR) Hospital ID Date Data Source [id number] 01/18/2020 01:29:00 PM EDT [facility] Name Value Range Interpretation Description Data Sup porting Code Source(s) Document(s ) Epithelial 3+ [facility] cells.squamous Hospital [#/area] in Urine sediment by Microscopy high power field ID Date Data Source [id number] 01/18/2020 01:29:00 PM EDT [facility] Name Value Range Interpretation Description Data Sup porting Code Source(s) Document(s ) Erythrocytes 0-3 [facility] [#/area] in /[HPF] Hospital Urine sediment by Microscopy high power field ID Date Data Source [id number] 01/18/2020 [facility] Interpretation Description Data Sup porting Code Source(s) Document(s ) Leukocytes 0-3 [facility] [#/area] in /[HPF] Hospital Urine sediment by Microscopy high power field ID Date Data Source [id number] 01/18/2020 01:29:00 PM EDT [facility] Name Value Range Interpretation Description Data Sup porting Code Source(s) Document(s ) Leukocyte NEGATIVE [facility] esterase Hospital [Presence] in Urine by Test strip ID Date Data Source [id number] 01/18/2020 01:29[facility] Value Range Interpretation Description Data Sup porting Code Source(s) Document(s ) URINE NEGATIVE [facility] NITRITES Hospital ID Date Data Source [id number] 01/18/2020 01:29:00 PM EDT [facility] Name Value Range Interpretation Description Data Sup porting Code Source(s) Document(s ) Erythrocytes NEGATIVE [facility] [#/volume] in Hospital Urine by Test strip ID Date Data Source [id number] 01/18/2020 01:29:00 PM EDT [facility] Name Value Range Interpretation Code Description Data Bryanna rce(s) Supporting Document(s ) Bilirubin. NEGATIVE [facility] total Hospital [Presence] in Urine by Test strip ID Date Data Source [id number] 01/18/2020 01:29:00 PM EDT [facility] Value Range Interpretation Description Data Sup porting Code Source(s) Document(s ) Urobilinogen 0.2 [facility] [Units/volume] mg/dL Hospital in Urine by Test strip ID Date Data Source [id number] 01/18/2020 01:29:00 PM EDT [facility] Name Value Range Interpretation Code Description Data Bryanna rce(s) Supporting Document(s ) Ketones 4+ [facility] [Mass/volume Hospital ] in Urine by Test strip ID Date Data Source [id number] 01/18/2020 01:29:00 PM EDT [facility] Name Value Range Interpretation Code Description Data Bryanna rce(s) Supporting Document(s ) Glucose 3+ [facility] [Mass/volume Hospital ] in Urine by Test strip ID Date Data Source [id number] 01/18/2020 01:29:00 PM EDT [facility] Name Value Range Interpretation Code Description Data Bryanna rce(s) Supporting Document(s ) Protein TRACE [facility] in Urine by Test strip ID Date Data Source [id number] 01/18[facility]2020 [facility] Value Range Interpretation Code Description Data Bryanna rce(s) Supporting Document(s ) pH of Urine 5.0 [facility] by Test Hospital strip ID Date Data Source [id number] 01/18/2020 01:29[facility] Name Value Range Interpretation Code Description Data Supporting Source(s) Document(s ) Specific 1.035 [facility] gravity of Hospital Urine by Test strip ID Date Data Source [id number] 01/[facility] Interpretation Description Data Sup porting Code Source(s) Document(s ) Clarity in Urine TURBID [facility] by [facility] automated ID Date Data Source [id number] 01/18/2020 01[facility]29[facility] Name Value Range Interpretation Code Description Data Bryanna rce(s) Supporting Document(s ) Color of YELLOW [facility] Urine Hospital ID Date Data Source [id number] 01/18/2020 11:15:00 AM [facility] Value Range Interpretation Description Data Sup porting Code Source(s) Document(s ) MISC TEST SEE COMMENT [facility] REFERENCE ABOVE Hospital RANGE ID Date Data Source [id number] 01/18/2020 11:15:00 AM [facility] Beta-Hydroxybutyrate, S: 9.0 mmol/L (HIG H)Reference Value: <0.4TEST PERFORMED AT:[address] [address] Name Value Range Interpretation Code Description Data Supporting Source(s) Document(s ) MISC TEST SEE NOTE [facility] RESULT Hospital ID Date Data Source [id number] 01/18/2020 11:15:00 AM EDT [facility] Name Value Range Interpretation Code Description Data Bryanna rce(s) Supporting Document(s ) MISC TEST Beta-Romney [facility] NAME xybutyrate Hospital ID Date Data Source [id number] 01/18/2020 11:15:00 AM [facility] Name Value Range Interpretation Description Data Sup porting Code Source(s) Document(s ) Thyroxine 0.7 ng/dL [facility] (T4) free Hospital [Mass/volume] in Serum or Plasma ID Date Data Source [id number] 01/18/2020 11:15:00 AM [facility] Name Value Range Interpretation Description Data Sup porting Code Source(s) Document(s ) Thyrotropin 0.594 [facility] [Units/volume] u[IU]/mL Hospital in Serum or Plasma by Detection limit <= 0.005 mIU/L ID Date Data Source [id number] 01/18/2020 11:15:00 AM [facility] TEST PERFORMED BY [employer] ULTRA SENSITIVE CENTAUR CHEMILUMINESCENCE METHOD. Name Value Range Interpretation Description Data Sup porting Code Source(s) Document(s ) Troponin 0.04 [facility] I.cardiac ng/mL Hospital [Mass/volume ] in Serum or Plasma ID Date Data Source [id number] 01/18/2020 11:15:00 AM [facility] Value Range Interpretation Code Description Data Bryanna rce(s) Supporting Document(s ) Lipase 16 U/L [facility] [Enzymatic Hospital activity/vo lume] in Serum or Plasma ID Date Data Source [id number] 01/18/2020 11:15:00 AM [facility] THERAPEUTIC RANGE FOR STANDARD ORALANTIC OAGULANT THERAPY: 2.0-3.0THERAPEUTIC RANGE FOR HIGH DOSE ORALANTICOAGULANT THERAPY (MECHANICAL HEARTVALVE REPLACEMENT): 2.5-3.5 Name Value Range Interpretation Description Data Sup porting Code Source(s) Document(s ) INR in Platelet 0.9 [facility] poor plasma by Hospital Coagulation assay ID Date Data Source [id number] 01/18/2020 11:15:00 AM [facility] Name Value Range Interpretation Description Data Sup porting Code Source(s) Document(s ) PT panel - 10.4 s [facility] Platelet poor [facility] plasma by Coagulation assay ID Date Data Source [id number] 01/10/2020 05:41:00 AM [facility] Manager Social Services:BECKY LEIVA Name Value Range Interpretation Description Data Sup porting Code Source(s) Document(s ) Glucose 288 mg/dL [facility] [Mass/volume] Hospital in Capillary blood by Glucometer ID Date Data Source [id number] 01/10/2020 01:22:00 AM [facility] Name Value Range Interpretation Description Data Sup porting Code Source(s) Document(s ) Aspartate 44 U/L White aminotransferase [place] [Enzymatic Hospital activity/volume] in Serum or Plasma ID Date Data Source [id number] 01/10/2020 01:22:00 AM [facility] Value Range Interpretation Description Data Sup porting Code Source(s) Document(s ) Alanine 26 U/L White aminotransferase [place] [Enzymatic Hospital activity/volume] in Serum or Plasma ID Date Data Source [id number] 01/10/2020 01:22:00 AM [facility] Name Value Range Interpretation Description Data Sup porting Code Source(s) Document(s ) Alkaline 86 U/L [facility] phosphatase Hospital [Enzymatic activity/volume ] in Serum or Plasma ID Date Data Source [id number] 01/10/2020 01:22:00 AM [facility] Name Value Range Interpretation Description Data Sup porting Code Source(s) Document(s ) Bilirubin.t 1.1 mg/dL [facility] [Mass/volum e] in Serum or Plasma ID Date Data Source [id number] 01/10/2020 01:22:00 AM EDT [facility] Name Value Range Interpretation Code Description Data Bryanna rce(s) Supporting Document(s ) Albumin/Glob 1.1 [facility]Mass [facility] Ratio] in Serum or Plasma ID Date Data Source [id number] 01/10/2020 01:22:00 AM EDT [facility] Name Value Range Interpretation Description Data Sup porting Code Source(s) Document(s ) Albumin 3.1 g/dL [facility] [Mass/volume Hospital ] in Serum or Plasma ID Date Data Source [id number] 01/10/2020 01:22:00 AM EDT [facility] Name Value Range Interpretation Description Data Sup porting Code Source(s) Document(s ) Protein 6.0 g/dL [facility] [Mass/volume Hospital ] in Serum or Plasma ID Date Data Source [id number] 01/10/2020 01:22:00 AM [facility] Name Value Range Interpretation Description Data Sup porting Code Source(s) Document(s ) Calcium 8.8 mg/dL [facility] [Mass/volume Hospital ] in Serum or Plasma ID Date Data Source [id number] 01/10/2020 01:22:00 AM [facility] UNITS ARE IN ml/min/1.73m2.IF PATIENT IS -CYMRAES, MULTIPLY REPORTED RESULT BY 1.21. Name Value Range Interpretation Description Data Sup porting Code Source(s) Document(s ) Glomerular > 60 [facility] filtration mL/min Hospital rate/1.73 sq M.predicted [Volume Rate/Area] in Serum or Plasma by Creatinine-bas ed formula (MDRD) ID Date Data Source [id number] 01/10/2020 01:22:00 AM EDT [facility] Name Value Range Interpretation Code Description Data Bryanna rce(s) Supporting Document(s ) Urea 10.0 [facility] nitrogen/Cre Hospital atinine [Mass Ratio] in Serum or Plasma ID Date Data Source [id number] 01/10/2020 01:22:00 AM EDT [facility] Name Value Range Interpretation Description Data Sup porting Code Source(s) Document(s ) Creatinine 0.9 mg/dL [facility] [Mass/volume] Hospital in Serum or Plasma ID Date Data Source [id number] 01/10/2020 01:22:[facility] Name Value Range Interpretation Description Data Sup porting Code Source(s) Document(s ) Urea nitrogen 9 mg/dL [facility] [Mass/volume] Hospital in Serum or Plasma ID Date Data Source [id number] 01/10/2020 01:22:00 AM EDT [facility] Name Value Range Interpretation Code Description Data Bryanna rce(s) Supporting Document(s ) Anion gap in 11 [facility] Serum or [facility] Plasma ID Date Data Source [id number] 01/10/2020 01:22:[facility] Name Value Range Interpretation Description Data Sup porting Code Source(s) Document(s ) Carbon 30 mmol/L [facility] dioxide, Hospital total [Moles/volu me] in Serum or Plasma ID Date Data Source [id number] 01/10/2020 01:22:[facility] Name Value Range Interpretation Description Data Sup porting Code Source(s) Document(s ) Chloride 104 [facility] [Moles/volum mmol/L Hospital e] in Serum or Plasma ID Date Data Source [id number] 01/10/2020 01:22:00 AM EDT [facility] THIS RESULT HAS BEEN VERIFIED. Name Value Range Interpretation Description Data Sup porting Code Source(s) Document(s ) Potassium 4.7 [facility] [Moles/volume mmol/L Hospital ] in Serum or Plasma ID Date Data Source [id number] 01/10/2020 01:22:00 AM EDT [facility] Name Value Range Interpretation Description Data Sup porting Code Source(s) Document(s ) Sodium 140 mmol/L [facility] [Moles/volu Hospital mi] in Serum or Plasma ID Date Data Source [id number] 01/10/2020 01:22:00 AM [facility] NOTIFICATION AND READ BACK OF CRITICAL R ESULTS TO DIANA STRATTON OF AT 0209 ON 01/10/20 BY Jeri Iraheta.PLEASE NOTE FIDEL NGE IN CRITICAL GLUCOSE VALUES EFFECTIVE 04/22/17.REPORTED CRITICAL VALUES SHOULD B E INTERPRETED WITHIN CLINICAL CONTEXT. Name Value Range Interpretation Description Data Sup porting Code Source(s) Document(s ) Glucose 474 mg/dL [facility] [Mass/volume Hospital ] in Serum or Plasma ID Date Data Source [id number] 01/10/2020 01:22:00 AM [facility] Name Value Range Interpretation Description Data Sup porting Code Source(s) Document(s ) Differential AUTOMATED [facility] cell count [facility] method - Blood ID Date Data Source [id number] 01/10/2020 01:22:00 AM [facility] Name Value Range Interpretation Description Data Sup porting Code Source(s) Document(s ) Immature 0.01 [facility] granulocytes 10*3/uL Hospital [#/volume] in Blood by Automated count ID Date Data Source [id number] 01/10/2020 01:22:00 AM [facility] Name Value Range Interpretation Description Data Sup porting Code Source(s) Document(s ) Basophils 0.05 [facility] [#/volume] in 10*3/uL Hospital Blood by Automated count ID Date Data Source [id number] 01/10/2020 01:22:00 AM EDT [facility] Value Range Interpretation Description Data Sup porting Code Source(s) Document(s ) Eosinophils 0.35 [facility] [#/volume] in 10*3/uL Hospital Blood by Automated count ID Date Data Source [id number] 01/10/2020 01:22:00 AM EDT [facility] Value Range Interpretation Description Data Sup porting Code Source(s) Document(s ) Monocytes 0.47 [facility] [#/volume] in 10*3/uL Hospital Blood by Automated count ID Date Data Source [id number] 01/10/2020 01:22:00 AM EDT [facility] Value Range Interpretation Description Data Sup porting Code Source(s) Document(s ) Lymphocytes 2.46 [facility] [#/volume] in 10*3/uL Hospital Blood by Automated count ID Date Data Source [id number] 01/10/2020 01:22:00 AM EDT [facility] Value Range Interpretation Description Data Sup porting Code Source(s) Document(s ) Neutrophils 0.96 [facility] [#/volume] in 10*3/uL Hospital Blood by Automated count ID Date Data Source [id number] 01/10/2020 01:22:00 AM EDT [facility] Value Range Interpretation Description Data Sup porting Code Source(s) Document(s ) Nucleated 0.0 % [facility] erythrocytes/10 Hospital 0 leukocytes [Ratio] in Blood by Automated count ID Date Data Source [id number] 01/10/2020 01:22:00 AM EDT [facility] Value Range Interpretation Description Data Sup porting Code Source(s) Document(s ) Immature 0.2 % [facility] granulocytes/10 Hospital 0 leukocytes in Blood by Automated count ID Date Data Source [id number] 01/10/2020 01:22:00 AM EDT [facility] Name Value Range Interpretation Description Data Sup porting Code Source(s) Document(s ) Basophils/100 1.2 % [facility] leukocytes in Hospital Blood by Automated count ID Date Data Source [id number] 01/10/2020 01:22:00 AM EDT [facility] Name Value Range Interpretation Description Data Sup porting Code Source(s) Document(s ) Eosinophils/100 8.1 % [facility] leukocytes in Hospital Blood by Automated count ID Date Data Source [id number] 01/10/2020 01:22:00 AM EDT [facility] Value Range Interpretation Description Data Sup porting Code Source(s) Document(s ) Monocytes/100 10.9 % [facility] leukocytes in Hospital Blood by Automated count ID Date Data Source [id number] 01/10/2020 01:22:00 AM EDT [facility] Name Value Range Interpretation Description Data Sup porting Code Source(s) Document(s ) Lymphocytes/10 57.2 % [facility] 0 leukocytes Hospital in Blood by Automated count ID Date Data Source [id number] 01/10/2020 01:22:00 AM EDT [facility] Value Range Interpretation Description Data Sup porting Code Source(s) Document(s ) Neutrophils/10 22.4 % [facility] 0 leukocytes Hospital in Blood by Automated count ID Date Data Source [id number] 01/10/2020 01:22:00 AM EDT [facility] Name Value Range Interpretation Description Data Sup porting Code Source(s) Document(s ) Platelet mean 13.0 fL [facility] volume Hospital [Entitic volume] in Blood by Automated count ID Date Data Source [id number] 01/10/2020 01:22:00 AM [facility] Value Range Interpretation Description Data Sup porting Code Source(s) Document(s ) Platelets 215 [facility] [#/volume] in 10*3/uL Hospital Blood by Automated count ID Date Data Source [id number] 01/10/2020 01:22:00 AM [facility] Value Range Interpretation Description Data Sup porting Code Source(s) Document(s ) Erythrocyte 15.5 % [facility] Hospital width [Ratio] by Automated count ID Date Data Source [id number] 01/10/2020 01:22:00 AM [facility] Value Range Interpretation Description Data Sup porting Code Source(s) Document(s ) Erythrocyte mean 34.5 [facility] corpuscular g/dL Hospital hemoglobin concentration [Mass/volume] by Automated count ID Date Data Source [id number] 01/10/2020 01:22:00 AM [facility] Value Range Interpretation Description Data Sup porting Code Source(s) Document(s ) Erythrocyte 30.5 pg [facility] corpuscular hemoglobin [Entitic mass] by Automated count ID Date Data Source [id number] 01/10/2020 01:22:00 AM [facility] Value Range Interpretation Description Data Sup porting Code Source(s) Document(s ) Erythrocyte 88.5 fL [facility] corpuscular volume [Entitic volume] by Automated count ID Date Data Source [id number] 01/10/2020 01:22:00 AM [facility] Value Range Interpretation Description Data Sup porting Code Source(s) Document(s ) Hematocrit 32.2 % [facility] [Volume Hospital Fraction] of Blood by Automated count ID Date Data Source [id number] 01/10/2020 01:22:00 AM [facility] Name Value Range Interpretation Description Data Sup porting Code Source(s) Document(s ) Hemoglobin 11.1 g/dL [facility] [Mass/volume] Hospital in Blood ID Date Data Source [id number] 01/10/2020 01:22:00 AM [facility] Name Value Range Interpretation Description Data Sup porting Code Source(s) Document(s ) Erythrocytes 3.64 [facility] [#/volume] in 10*6/uL Hospital Blood by Automated count ID Date Data Source [id number] 01/10/2020 01:22:00 AM [facility] Name Value Range Interpretation Description Data Sup porting Code Source(s) Document(s ) Leukocytes 4.3 [facility] [#/volume] in 10*3/uL Hospital Blood by Automated count ID Date Data Source [id number] 01/10/2020 01:22:00 AM [facility] UNITS ARE IN ml/min/1.73m2.IF PATIENT IS -CYMRAES, MULTIPLY REPORTED RESULT BY 1.21. Name Value Range Interpretation Description Data Sup porting Code Source(s) Document(s ) Glomerular > 60 [facility] filtration mL/min Hospital rate/1.73 sq M.predicted [Volume Rate/Area] in Serum or Plasma by Creatinine-bas ed formula (MDRD) ID Date Data Source [id number] 01/08/2020 11:43:00 AM [facility] Manager Social Services:PAVEL DURAN Name Value Range Interpretation Description Data Sup porting Code Source(s) Document(s ) Glucose 177 mg/dL [facility] [Mass/volume] [facility] in Capillary blood by Glucometer ID Date Data Source [id number] 01/08/2020 10:23:00 AM [facility] NOTIFICATION AND READ BACK OF CRITICAL R ESULTS TO [facility] DIZENZO R.N/EDAC AT 1119 ON 01/08/20 BY Sd Masterson.REPORTED CRITICAL VALUES SHOULD BE INTERPRETED WITHIN CLINICAL CONTEXT. Name Value Range Interpretation Description Data Sup porting Code Source(s) Document(s ) Lactate 2.8 [facility] [Moles/volum mmol/L Hospital e] in Serum or Plasma ID Date Data Source [id number] 01/08/2020 10:23:00 AM EDT [facility] NOTIFICATION AND READ BACK OF CRITICAL R ESULTS TO MUMTAZ CANDIEZENZO R.N/EDAC AT 1119 ON 01/08/20 BY Sd Masterson.REPORTED CRITICAL VALUES SHOULD BE INTERPRETED WITHIN CLINICAL CONTEXT. Name Value Range Interpretation Description Data Sup porting Code Source(s) Document(s ) Lactate 2.8 [facility] [Moles/volum mmol/L Hospital e] in Serum or Plasma ID Date Data Source [id number] 01/08/2020 08:37:00 AM EDT [facility] CUT-OFF >= 25 NG/ML.THE FINDINGS OF [...] rce(s) Supporting Document(s ) PCP (UR) NEGATIVE [facility] ID Date Data Source [id number] 01/08/2020 08:37:00 AM EDT [facility] CUT-OFF >= 50 NG/ML. Name Value Range Interpretation Code Description Data Bryanna rce(s) Supporting Document(s ) THC (UR) NEGATIVE [facility] ID Date Data Source [id number] 01/08/2020 08:37:00 AM EDT [facility] CUT-OFF >= 300 NG/ML. Name Value Range Interpretation Description Data Sup porting Code Source(s) Document(s ) OPIATES (UR) NEGATIVE [facility] ID Date Data Source [id number] 01/08/2020 08:37:00 AM EDT [facility] CUT-OFF >= 300 NG/ML. Name Value Range Interpretation Description Data Sup porting Code Source(s) Document(s ) COCAINE (UR) POSITIVE [facility] ID Date Data Source [id number] 01/08/2020 08:37:00 AM EDT [facility] CUT-OFF >= 200 NG/ML. Name Value Range Interpretation Description Data Sup porting Code Source(s) Document(s ) BENZODIAZEPINES NEGATIVE [place] (UR) [facility] ID Date Data Source [id number] 01/08/2020 08:37:00 AM EDT [facility] CUT-OFF >= 200 NG/ML. Name Value Range Interpretation Description Data Sup porting Code Source(s) Document(s ) BARBITURATES NEGATIVE [facility] (UR) Hospital ID Date Data Source [id number] 01/08/2020 08:37:00 AM EDT [facility] CUT-OFF >= 1000 NG/ML. Name Value Range Interpretation Description Data Sup porting Code Source(s) Document(s ) AMPHETAMINES NEGATIVE [facility] (UR) Hospital ID Date Data Source [id number] 01/08/2020 08:37:00 AM EDT [facility] Name Value Range Interpretation Description Data Sup porting Code Source(s) Document(s ) Leukocyte NEGATIVE [facility] esterase Hospital [Presence] in Urine by Test strip ID Date Data Source [id number] 01/08/2020 08:37:00 AM EDT [facility] Name Value Range Interpretation Description Data Sup porting Code Source(s) Document(s ) URINE NEGATIVE [facility] NITRITES Hospital ID Date Data Source [id number] 01/08/2020 08:37:00 AM EDT [facility] Name Value Range Interpretation Description Data Sup porting Code Source(s) Document(s ) Erythrocytes NEGATIVE [facility] [#/volume] in Hospital Urine by Test strip ID Date Data Source [id number] 01/08/2020 08:37:00 AM EDT [facility] Name Value Range Interpretation Code Description Data Bryanna rce(s) Supporting Document(s ) Bilirubin. NEGATIVE [facility] total Hospital [Presence] in Urine by Test strip ID Date Data Source [id number] 01/08/2020 08:37:00 AM EDT [facility] Name Value Range Interpretation Description Data Sup porting Code Source(s) Document(s ) Urobilinogen 1.0 [facility] [Units/volume] mg/dL Hospital in Urine by Test strip ID Date Data Source [id number] 01/08/2020 08:37:00 AM EDT [facility] Name Value Range Interpretation Description Data Sup porting Code Source(s) Document(s ) Ketones NEGATIVE [facility] [Mass/volume Hospital ] in Urine by Test strip ID Date Data Source [id number] 01/08/2020 08:37:00 AM EDT [facility] Name Value Range Interpretation Code Description Data Bryanna rce(s) Supporting Document(s ) Glucose 3+ [facility] [Mass/volume Hospital ] in Urine by Test strip ID Date Data Source [id number] 01/08/2020 08:37:00 AM EDT [facility] Name Value Range Interpretation Description Data Sup porting Code Source(s) Document(s ) Protein NEGATIVE [facility] [Presence] Hospital in Urine by Test strip ID Date Data Source [id number] 01/08/2020 08:37:00 AM EDT [facility] Name Value Range Interpretation Code Description Data Bryanna rce(s) Supporting Document(s ) pH of Urine 7.0 [facility] by Test Hospital strip ID Date Data Source [id number] 01/08/2020 08:37:00 AM EDT [facility] Name Value Range Interpretation Code Description Data Supporting Source(s) Document(s ) Specific 1.035 [facility] gravity of Hospital Urine by Test strip ID Date Data Source [id number] 01/08/2020 08:37:00 AM EDT [facility] Name Value Range Interpretation Description Data Sup porting Code Source(s) Document(s ) Clarity in Urine CLEAR [facility] by Refractometry Hospital automated ID Date Data Source [id number] 01/08/2020 08:37:00 AM EDT [facility] Name Value Range Interpretation Code Description Data Bryanna rce(s) Supporting Document(s ) Color of YELLOW [facility] Urine Hospital ID Date Data Source [id number] 01/08/2020 08:37:00 AM [facility] CUT-OFF >= 25 NG/ML.THE FINDINGS OF [...] rce(s) Supporting Document(s ) PCP (UR) NEGATIVE [facility] ID Date Data Source [id number] 01/08[facility] NG/ML. Name Value Range Interpretation Code Description Data Bryanna rce(s) Supporting Document(s ) THC (UR) NEGATIVE [facility] ID Date Data Source [id number] 01/08/2020 08:37[facility] >= 300 NG/ML. Name Value Range Interpretation Description Data Sup porting Code Source(s) Document(s ) OPIATES (UR) NEGATIVE [facility] ID Date Data Source [id number] 01/08/2020 08:37:00 AM EDT [facility] CUT-OFF >= 300 NG/ML. Name Value Range Interpretation Description Data Sup porting Code Source(s) Document(s ) COCAINE (UR) POSITIVE [facility] ID Date Data Source [id number] 01/08/2020 08:37:00 AM EDT [facility] CUT-OFF >= 200 NG/ML. Name Value Range Interpretation Description Data Sup porting Code Source(s) Document(s ) BENZODIAZEPINES NEGATIVE [place] (UR) [facility] ID Date Data Source [id number] 01/08/2020 08:37:00 AM EDT [facility] CUT-OFF >= 200 NG/ML. Name Value Range Interpretation Description Data Sup porting Code Source(s) Document(s ) BARBITURATES NEGATIVE [facility] (UR) [facility] ID Date Data Source [id number] 01/08/2020 08:37:00 AM [facility] CUT-OFF >= 1000 NG/ML. Name Value Range Interpretation Description Data Sup porting Code Source(s) Document(s ) AMPHETAMINES NEGATIVE [facility] (UR) Hospital ID Date Data Source [id number] 01/08/2020 08:37:00 AM EDT [facility] Name Value Range Interpretation Description Data Sup porting Code Source(s) Document(s ) Leukocyte NEGATIVE [facility] [Presence] in Urine by Test strip ID Date Data Source [id number] [facility] Range Interpretation Description Data Sup porting Code Source(s) Document(s ) URINE NEGATIVE [facility] ID Date Data Source [id number] 01/08/2020 08:37:00 AM EDT [facility] Name Value Range Interpretation Description Data Sup porting Code Source(s) Document(s ) Erythrocytes NEGATIVE [facility] [#/volume] in Hospital Urine by Test strip ID Date Data Source [id number] 01/08/2020 08:37:00 AM EDT [facility] Name Value Range Interpretation Code Description Data Bryanna rce(s) Supporting Document(s ) Bilirubin. NEGATIVE [facility] total [facility] [Presence] in Urine by Test strip ID Date Data Source [id number] 01/08/2020 08:37:00 AM EDT [facility] Name Value Range Interpretation Description Data Sup porting Code Source(s) Document(s ) Urobilinogen 1.0 [facility] [Units/volume] mg/dL Hospital in Urine by Test strip ID Date Data Source [id number] 01/08/2020 08:37:00 AM EDT [facility] Name Value Range Interpretation Description Data Sup porting Code Source(s) Document(s ) Ketones NEGATIVE [facility] [Mass[facility] ] in Urine by Test strip ID Date Data Source [id number] 01/08/2020 08:37:00 AM EDT [facility] Name Value Range Interpretation Code Description Data Bryanna rce(s) Supporting Document(s ) Glucose 3+ [facility] [Mass[facility]volume [facility] ] in Urine by Test strip ID Date Data Source [id number] 01/08/2020 08:37:00 AM EDT [facility] Name Value Range Interpretation Description Data Sup porting Code Source(s) Document(s ) Protein NEGATIVE [facility] [[facility]] [facility] in Urine by Test strip ID Date Data Source [id number] 01/08/2020 08:37:00 AM EDT [facility] Name Value Range Interpretation Code Description Data Bryanna rce(s) Supporting Document(s ) pH of Urine 7.0 [facility] by Test Hospital strip ID Date Data Source [id number] [facility] Interpretation Code Description Data Supporting Source(s) Document(s ) Specific 1.035 [facility] gravity of Hospital Urine by Test strip ID Date Data Source [id number] 01/[facility]/2020 [facility] Value Range Interpretation Description Data Sup porting Code Source(s) Document(s ) Clarity in Urine CLEAR [facility] by Refractometry [facility] automated ID Date Data Source [id number] 01/08/2020 08[facility] Name Value Range Interpretation Code Description Data Bryanna rce(s) Supporting Document(s ) Color of YELLOW [facility] Urine [facility] ID Date Data Source [id number] 01/08/2020 08:21:00 AM [facility] TEST PERFORMED BY [employer] SENS[facility] CHEMILUMINESCENCE METHOD. Name Value Range Interpretation Description Data Sup porting Code Source(s) Document(s ) Troponin 0.01 [facility] I.cardiac ng/mL Hospital [Mass/volume ] in Serum or Plasma ID Date Data Source [id number] 01/08/2020 08[facility] Name Value Range Interpretation Code Description Data Bryanna rce(s) Supporting Document(s ) Lipase 36 U/L [facility] [Enzymatic Hospital activity/vo lume] in Serum or Plasma ID Date Data Source [id number] 01/08/2020 08[facility] Name Value Range Interpretation Description Data Sup porting Code Source(s) Document(s ) Phosphate 3.1 mg/dL [facility] [Mass/volume] Hospital in Serum or Plasma ID Date Data Source [id number] 01/08/2020 08:21:00 AM EDT [facility] Name Value Range Interpretation Description Data Sup porting Code Source(s) Document(s ) Magnesium 1.5 mg/dL [facility] [Mass/volume] Hospital in Serum or Plasma ID Date Data Source [id number] 01/08/2020 08:21:00 AM EDT [facility] THERAPEUTIC RANGES:UNFRACTIONATED HEPARI N THERAPY: 60-90 SECONDSARGATROBAN THERAPY: 49-99 SECONDS Name Value Range Interpretation Description Data Sup porting Code Source(s) Document(s ) aPTT in 28.1 s [facility] Platelet poor [facility] plasma by Coagulation assay ID Date Data Source [id number] 01/08/2020 08:21:00 AM [facility] THERAPEUTIC RANGE FOR STANDARD ORALANTIC OAGULANT THERAPY: 2.0-3.0THERAPEUTIC RANGE FOR HIGH DOSE ORALANTICOAGULANT THERAPY (MECHANICAL HEARTVALVE REPLACEMENT): 2.5-3.5 Name Value Range Interpretation Description Data Sup porting Code Source(s) Document(s ) INR in Platelet 1.0 [facility] poor plasma by Hospital Coagulation assay ID Date Data Source [id number] 01/08/2020 08:21:00 AM EDT [facility] Name Value Range Interpretation Description Data Sup porting Code Source(s) Document(s ) PT panel - 11.9 s [facility] Platelet poor [facility] plasma by Coagulation assay ID Date Data Source [id number] 01/08/2020 08:21:00 AM EDT [facility] Name Value Range Interpretation Code Description Data Supporting Source(s) Document(s ) NUCLEATED RBCS 0.0 % [facility] (AUTO Hospital DIFF%)DIS ID Date Data Source [id number] 01/08/2020 08:21:00 AM [facility] REFERENCE RANGES: NONE DETECTED <20 MG/DL NONE TO MILD EUPHORIA 20-49 MG/DL MILD EUPHORIA 50-99 MG/DL MODERATE EUPHORIA 100-149 MG/DL INTOXICATION 150-300 MG/DL Name Value Range Interpretation Description Data Sup porting Code Source(s) Document(s ) Ethanol < 20 [facility] [Mass/volume mg/dL Hospital ] in Serum or Plasma ID Date Data Source [id number] 01/08/2020 08:21:00 AM [facility] TEST RESULT IS A TOTAL TRICYCLIC [...] Code Source(s) Document(s ) TRICYCLIC < 80 [facility] ANTIDEPRESSANT ng/mL Hospital ID Date Data Source [id number] 01/08/2020 08:21:00 AM [facility] REFERENCE RANGES: ANALGESIC: 0.0 - 10.0 MG/DL. ARTHRITIC THERAPY: 15.0 - 30.0 MG/DL. Name Value Range Interpretation Description Data Sup porting Code Source(s) Document(s ) Salicylates < 3.0 [facility] [Mass/volume] mg/dL Hospital in Serum or Plasma ID Date Data Source [id number] 01/08/2020 08:21:00 AM [facility] THERAPEUTIC RANGE: 10.0-30.0 UG/MLTOXIC RANGE: 4 HRS AFTER INGESTION >150 UG/ML 12 HRS AFTER INGESTION >35 UG/ML Name Value Range Interpretation Description Data Sup porting Code Source(s) Document(s ) ACETAMINOPHEN < 10.0 [facility] ug/mL Hospital ID Date Data Source [id number] 01/08/2020 08:21:00 AM EDT [facility] TEST PERFORMED BY [employer] [employer]ENS[facility] CHEMILUMINESCENCE METHOD. Name Value Range Interpretation Description Data Sup porting Code Source(s) Document(s ) Troponin 0.01 [facility] I.cardiac ng/mL Hospital [Mass/volume ] in Serum or Plasma ID Date Data Source [id number] 01/08/2020 08:21:00 AM EDT [facility] Name Value Range Interpretation Code Description Data Bryanna rce(s) Supporting Document(s ) Lipase 36 U/L [facility] [Enzymatic Hospital activity/vo lume] in Serum or Plasma ID Date Data Source [id number] 01/08/2020 08:21:00 AM EDT [facility] Name Value Range Interpretation Description Data Sup porting Code Source(s) Document(s ) Phosphate 3.1 mg/dL [facility] [Mass/volume] Hospital in Serum or Plasma ID Date Data Source [id number] 01/08/2020 08:21:00 AM EDT [facility] Name Value Range Interpretation Description Data Sup porting Code Source(s) Document(s ) Magnesium 1.5 mg/dL [facility] [Mass/volume] Hospital in Serum or Plasma ID Date Data Source [id number] 01/08/2020 08:21:00 AM EDT [facility] Name Value Range Interpretation Description Data Sup porting Code Source(s) Document(s ) Aspartate 45 U/L White aminotransferase [facility] [Enzymatic Hospital activity/volume] in Serum or Plasma ID Date Data Source [id number] 01/08/2020 08:21:00 AM EDT [facility] Name Value Range Interpretation Description Data Sup porting Code Source(s) Document(s ) Alanine 27 U/L [facility] [Enzymatic Hospital activity/volume] in Serum or Plasma ID Date Data Source [id number] 01/08/2020 08:21:00 AM EDT [facility] Name Value Range Interpretation Description Data Sup porting Code Source(s) Document(s ) Alkaline 78 U/L [facility] phosphatase [facility] [Enzymatic activity/volume ] in Serum or Plasma ID Date Data Source [id number] 01/08/2020 08:21:00 AM EDT [facility] Name Value Range Interpretation Description Data Sup porting Code Source(s) Document(s ) Bilirubin.t 1.1 mg/dL [facility] [Mass/volum e] in Serum or Plasma ID Date Data Source [id number] 01/08/2020 08:21:00 AM EDT [facility] Name Value Range Interpretation Code Description Data Bryanna rce(s) Supporting Document(s ) Albumin/Glob 1.0 [facility] ulin [Mass Hospital Ratio] in Serum or Plasma ID Date Data Source [id number] 01/08/2020 [facility] Value Range Interpretation Description Data Sup porting Code Source(s) Document(s ) Albumin 3.0 g/dL [facility] [Mass/volume Hospital ] in Serum or Plasma ID Date Data Source [id number] 01/08/2020 08:21:00 AM EDT [facility] Name Value Range Interpretation Description Data Sup porting Code Source(s) Document(s ) Protein 5.9 g/dL [facility] [Mass/volume Hospital ] in Serum or Plasma ID Date Data Source [id number] 01/08/2020 08[facility] Value Range Interpretation Description Data Sup porting Code Source(s) Document(s ) Calcium 8.8 mg/dL [facility] [Mass/volume Hospital ] in Serum or Plasma ID Date Data Source [id number] 01/08/2020 08:21:00 AM EDT [facility] Name Value Range Interpretation Code Description Data Bryanna rce(s) Supporting Document(s ) Urea 13.8 [facility] nitrogen/Cre Hospital atinine [Mass Ratio] in Serum or Plasma ID Date Data Source [id number] 01/08/2020 08:21:00 AM EDT [facility] Name Value Range Interpretation Description Data Sup porting Code Source(s) Document(s ) Creatinine 0.8 mg/dL [facility] [Mass/volume] Hospital in Serum or Plasma ID Date Data Source [id number] 01/08/2020 08:21:00 AM EDT [facility] Name Value Range Interpretation Description Data Sup porting Code Source(s) Document(s ) Urea 11 mg/dL [facility] nitrogen [facility] [Mass/volume ] in Serum or Plasma ID Date Data Source [id number] 01/08/2020 08:21:00 AM EDT [facility] Name Value Range Interpretation Code Description Data Bryanna rce(s) Supporting Document(s ) Anion gap in 9 [facility] Serum or Hospital Plasma ID Date Data Source [id number] 01/08/2020 08:21:00 AM EDT [facility] Name Value Range Interpretation Description Data Sup porting Code Source(s) Document(s ) Carbon 27 mmol/L [facility] dioxide, Hospital total [Moles/volu me] in Serum or Plasma ID Date Data Source [id number] 01/08/2020 08:21:00 AM EDT [facility] Name Value Range Interpretation Description Data Sup porting Code Source(s) Document(s ) Chloride 113 [facility] [Moles/volum mmol/L Hospital e] in Serum or Plasma ID Date Data Source [id number] 01/08/2020 08:21:00 AM [facility] Name Value Range Interpretation Description Data Sup porting Code Source(s) Document(s ) Potassium 3.3 [facility] [Moles/volume mmol/L Hospital ] in Serum or Plasma ID Date Data Source [id number] 01/08/2020 08:21:00 AM [facility] REFERENCE RANGES: NONE DETECTED <20 MG/DL NONE TO MILD EUPHORIA 20-49 MG/DL MILD EUPHORIA 50-99 MG/DL MODERATE EUPHORIA 100-149 MG/DL INTOXICATION 150-300 MG/DL Name Value Range Interpretation Description Data Sup porting Code Source(s) Document(s ) Ethanol < 20 [facility] [Mass/volume mg/dL Hospital ] in Serum or Plasma ID Date Data Source [id number] 01/08/2020 08:21:00 AM [facility] TEST RESULT IS A TOTAL TRICYCLIC [...] Code Source(s) Document(s ) TRICYCLIC < 80 [facility] ANTIDEPRESSANT ng/mL Hospital ID Date Data Source [id number] 01/08/2020 08:21:00 AM [facility] REFERENCE RANGES: ANALGESIC: 0.0 - 10.0 MG/DL. ARTHRITIC THERAPY: 15.0 - 30.0 MG/DL. Name Value Range Interpretation Description Data Sup porting Code Source(s) Document(s ) Salicylates < 3.0 [facility] [Mass/volume] mg/dL Hospital in Serum or Plasma ID Date Data Source [id number] 01/08/2020 08:21:00 AM [facility] THERAPEUTIC RANGE: 10.0-30.0 UG/MLTOXIC RANGE: 4 HRS AFTER INGESTION >150 UG/ML 12 HRS AFTER INGESTION >35 UG/ML Name Value Range Interpretation Description Data Sup porting Code Source(s) Document(s ) ACETAMINOPHEN < 10.0 [facility] ug/mL Hospital ID Date Data Source [id number] 01/08/2020 08:21:00 AM [facility] REFERENCE RANGES: NONE DETECTED <20 MG/DL NONE TO MILD EUPHORIA 20-49 MG/DL MILD EUPHORIA 50-99 MG/DL MODERATE EUPHORIA 100-149 MG/DL INTOXICATION 150-300 MG/DL Name Value Range Interpretation Description Data Sup porting Code Source(s) Document(s ) Ethanol < 20 [facility] [Mass/volume mg/dL [facility] ] in Serum or Plasma ID Date Data Source [id number] 01/08/2020 08:21:00 AM [facility] TEST RESULT IS A TOTAL TRICYCLIC [...] Code Source(s) Document(s ) TRICYCLIC < 80 [facility] ANTIDEPRESSANT ng/mL Hospital ID Date Data Source [id number] 01/08/2020 08:21:00 AM [facility] REFERENCE RANGES: ANALGESIC: 0.0 - 10.0 MG/DL. ARTHRITIC THERAPY: 15.0 - 30.0 MG/DL. Name Value Range Interpretation Description Data Sup porting Code Source(s) Document(s ) Salicylates < 3.0 [facility] [Mass/volume] mg/dL Hospital in Serum or Plasma ID Date Data Source [id number] 01/08/2020 08:21:00 AM [facility] THERAPEUTIC RANGE: 10.0-30.0 UG/MLTOXIC RANGE: 4 HRS AFTER INGESTION >150 UG/ML 12 HRS AFTER INGESTION >35 UG/ML Name Value Range Interpretation Description Data Sup porting Code Source(s) Document(s ) ACETAMINOPHEN < 10.0 [facility] ug/mL Hospital ID Date Data Source [id number] 01/08/2020 08:21:00 AM [facility] THERAPEUTIC RANGES:UNFRACTIONATED HEPARI N THERAPY: 60-90 SECONDSARGATROBAN THERAPY: 49-99 SECONDS Name Value Range Interpretation Description Data Sup porting Code Source(s) Document(s ) aPTT in 28.1 s [facility] Platelet poor [facility] plasma by Coagulation assay ID Date Data Source [id number] 01/08/2020 08:21:00 AM [facility] Name Value Range Interpretation Description Data Sup porting Code Source(s) Document(s ) Sodium 146 mmol/L [facility] [[facility]] in Serum or Plasma ID Date Data Source [id number] 01/08/2020 08:21:00 AM [facility] Name Value Range Interpretation Description Data Sup porting Code Source(s) Document(s ) Glucose 189 mg/dL [facility] [Mass/volume [facility] ] in Serum or Plasma ID Date Data Source [id number] 01/08/2020 08:21:00 AM [facility] THERAPEUTIC RANGES:UNFRACTIONATED HEPARI N THERAPY: 60-90 SECONDSARGATROBAN THERAPY: 49-99 SECONDS Name Value Range Interpretation Description Data Sup porting Code Source(s) Document(s ) aPTT in 28.1 s [facility] Platelet poor Hospital plasma by Coagulation assay ID Date Data Source [id number] 01/08/2020 08:21:00 AM [facility] THERAPEUTIC RANGE FOR STANDARD ORALANTIC OAGULANT THERAPY: 2.0-3.0THERAPEUTIC RANGE FOR HIGH DOSE ORALANTICOAGULANT THERAPY (MECHANICAL HEARTVALVE REPLACEMENT): 2.5-3.5 Name Value Range Interpretation Description Data Sup porting Code Source(s) Document(s ) INR in Platelet 1.0 [facility] poor plasma by Hospital Coagulation assay ID Date Data Source [id number] 01/08/2020 [facility] Name Value Range Interpretation Description Data Sup porting Code Source(s) Document(s ) PT panel - 11.9 s [facility] Platelet poor [facility] plasma by Coagulation assay ID Date Data Source [id number] 01/08/2020 08:21:00 AM [facility] Name Value Range Interpretation Code Description Data Supporting Source(s) Document(s ) NUCLEATED RBCS 0.0 % [facility] (AUTO Hospital DIFF%)DIS ID Date Data Source [id number] 01/08/2020 08:21:00 AM [facility] Value Range Interpretation Description Data Sup porting Code Source(s) Document(s ) Differential AUTOMATED [facility] cell count [facility] method - Blood ID Date Data Source [id number] 01/08/2020 08:21:00 AM [facility] Name Value Range Interpretation Description Data Sup porting Code Source(s) Document(s ) Immature 0.00 [facility] granulocytes 10*3/uL [facility] [#/volume] in Blood by Automated count ID Date Data Source [id number] 01/08/2020 08:21:00 AM [facility] Value Range Interpretation Description Data Sup porting Code Source(s) Document(s ) Basophils 0.02 [facility] [#/volume] in 10*3/uL Hospital Blood by Automated count ID Date Data Source [id number] 01/08/2020 08:21:00 AM EDT [facility] Value Range Interpretation Description Data Sup porting Code Source(s) Document(s ) Eosinophils 0.30 [facility] [#/volume] in 10*3/uL Hospital Blood by Automated count ID Date Data Source [id number] 01/08/2020 08:21:00 AM EDT [facility] Value Range Interpretation Description Data Sup porting Code Source(s) Document(s ) Monocytes 0.46 [facility] [#/volume] in 10*3/uL Hospital Blood by Automated count ID Date Data Source [id number] 01/08/2020 08:21:00 AM EDT [facility] Value Range Interpretation Description Data Sup porting Code Source(s) Document(s ) Lymphocytes 1.76 [facility] [#/volume] in 10*3/uL Hospital Blood by Automated count ID Date Data Source [id number] 01/08/2020 08:21:00 AM T [facility] Value Range Interpretation Description Data Sup porting Code Source(s) Document(s ) Neutrophils 0.75 [facility] [#/volume] in 10*3/uL Hospital Blood by Automated count ID Date Data Source [id number] 01/08/2020 08:21:00 AM [facility] Value Range Interpretation Description Data Sup porting Code Source(s) Document(s ) Nucleated 0.0 % [facility] erythrocytes/10 Hospital 0 leukocytes [Ratio] in Blood by Automated count ID Date Data Source [id number] 01/08/2020 08:21:00 AM EDT [facility] Value Range Interpretation Description Data Sup porting Code Source(s) Document(s ) Immature 0.0 % [facility] granulocytes/10 Hospital 0 leukocytes in Blood by Automated count ID Date Data Source [id number] 01/08/2020 08:21:00 AM EDT [facility] Name Value Range Interpretation Description Data Sup porting Code Source(s) Document(s ) Basophils/100 0.6 % [facility] leukocytes in Hospital Blood by Automated count ID Date Data Source [id number] 01/08/2020 08:21:00 AM EDT [facility] Name Value Range Interpretation Description Data Sup porting Code Source(s) Document(s ) Eosinophils/100 9.1 % [facility] leukocytes in Hospital Blood by Automated count ID Date Data Source [id number] 01/08/2020 08:21:00 AM EDT [facility] Value Range Interpretation Description Data Sup porting Code Source(s) Document(s ) Monocytes/100 14.0 % [facility] leukocytes in Hospital Blood by Automated count ID Date Data Source [id number] 01/08/2020 08:21:00 AM EDT [facility] Value Range Interpretation Description Data Sup porting Code Source(s) Document(s ) Lymphocytes/10 53.5 % [facility] 0 leukocytes Hospital in Blood by Automated count ID Date Data Source [id number] 01/08/2020 08:21:00 AM EDT [facility] Name Value Range Interpretation Description Data Sup porting Code Source(s) Document(s ) Neutrophils/10 22.8 % [facility] 0 leukocytes Hospital in Blood by Automated count ID Date Data Source [id number] 01/08/2020 08:21:00 AM EDT [facility] Name Value Range Interpretation Description Data Sup porting Code Source(s) Document(s ) Platelet mean 12.1 fL [facility] volume Hospital [Entitic volume] in Blood by Automated count ID Date Data Source [id number] 01/08/2020 08:21:00 AM [facility] Value Range Interpretation Description Data Sup porting Code Source(s) Document(s ) Platelets 174 [facility] [#/volume] in 10*3/uL Hospital Blood by Automated count ID Date Data Source [id number] [facility] Interpretation Description Data Sup porting Code Source(s) Document(s ) Erythrocyte 14.6 % [facility] Hospital width [Ratio] by Automated count ID Date Data Source [id number] 01/08/2020 08:21:00 AM [facility] Value Range Interpretation Description Data Sup porting Code Source(s) Document(s ) Erythrocyte mean 32.4 [facility] corpuscular g/dL Hospital hemoglobin concentration [Mass/volume] by Automated count ID Date Data Source [id number] 01/08/2020 08:21:00 AM [facility] Value Range Interpretation Description Data Sup porting Code Source(s) Document(s ) Erythrocyte 30.1 pg [facility] corpuscular hemoglobin [Entitic mass] by Automated count ID Date Data Source [id number] 01/08/2020 08:21:00 AM [facility] Value Range Interpretation Description Data Sup porting Code Source(s) Document(s ) Erythrocyte 92.9 fL [facility] corpuscular volume [Entitic volume] by Automated count ID Date Data Source [id number] 01/08/2020 08:21:00 AM [facility] Value Range Interpretation Description Data Sup porting Code Source(s) Document(s ) Hematocrit 34.0 % [facility] [Volume Hospital Fraction] of Blood by Automated count ID Date Data Source [id number] 01/08/2020 08:21:00 AM EDT [facility] Value Range Interpretation Description Data Sup porting Code Source(s) Document(s ) Hemoglobin 11.0 g/dL [facility] [Mass/volume] Hospital in Blood ID Date Data Source [id number] 01/08/2020 08:21:00 AM EDT [facility] Value Range Interpretation Description Data Sup porting Code Source(s) Document(s ) Erythrocytes 3.66 [facility] [#/volume] in 10*6/uL Hospital Blood by Automated count ID Date Data Source [id number] 01/08/2020 08:21:00 AM EDT [facility] Value Range Interpretation Description Data Sup porting Code Source(s) Document(s ) Leukocytes 3.3 [facility] [#/volume] in 10*3/uL Hospital Blood by Automated count ID Date Data Source [id number] 01/08/2020 08:20:00 AM EDT [facility] Value Range Interpretation Code Description Data Bryanna rce(s) Supporting Document(s ) READ BACK Yes/ [facility] ID Date Data Source [id number] 01/08/2020 08:20:00 AM EDT [facility] Value Range Interpretation Code Description Data Bryanna rce(s) Supporting Document(s ) NOTE WHO DR GAY [facility] ID Date Data Source [id number] 01/08/2020 08:20:00 AM EDT [facility] Value Range Interpretation Description Data Sup porting Code Source(s) Document(s ) IONIZED 1.25 [facility] CALCIUM mmol/L Hospital ID Date Data Source [id number] 01/08/2020 08:20:00 AM EDT [facility] Name Value Range Interpretation Code Description Data Supporting Source(s) Document(s ) METHEMOGLOBIN 0.6 % [facility] ID Date Data Source [id number] 01/08/2020 08:20:00 AM EDT [facility] Value Range Interpretation Description Data Sup porting Code Source(s) Document(s ) CARBOXYHEMOGLOBIN 0.8 % [facility] ID Date Data Source [id number] 01/08/2020 08:20:00 AM EDT [facility] Value Range Interpretation Code Description Data Bryanna rce(s) Supporting Document(s ) ABG TEMP 98.0 [facility] ID Date Data Source [id number] 01/08/2020 08:20:00 AM EDT [facility] Value Range Interpretation Code Description Data Bryanna rce(s) Supporting Document(s ) FIO2 21 % [facility] ID Date Data Source [id number] 01/08/2020 08:20:00 AM EDT [facility] Value Range Interpretation Code Description Data Bryanna rce(s) Supporting Document(s ) ABG BE 0.6 mmol/L [facility] ID Date Data Source [id number] 01/08/2020 08:20:00 AM EDT [facility] Value Range Interpretation Code Description Data Bryanna rce(s) Supporting Document(s ) ABG O2SAT 92 % [facility] ID Date Data Source [id number] 01/08/2020 08:20:00 AM EDT [facility] Value Range Interpretation Code Description Data Bryanna rce(s) Supporting Document(s ) ABG HCO3 25 mmol/L [facility] ID Date Data Source [id number] 01/08/2020 08:20:00 AM EDT [facility] Name Value Range Interpretation Code Description Data Bryanna rce(s) Supporting Document(s ) ABG PO2 64 mm[Hg] [facility] ID Date Data Source [id number] 01/08/2020 08:20:00 AM EDT [facility] Value Range Interpretation Code Description Data Bryanna rce(s) Supporting Document(s ) ABG PCO2 39 mm[Hg] [facility] ID Date Data Source [id number] 01/08/2020 08:20:00 AM EDT [facility] Value Range Interpretation Code Description Data Bryanna rce(s) Supporting Document(s ) ABG PH 7.42 [facility] ID Date Data Source [id number] 01/08/2020 08:20:00 AM EDT [facility] Value Range Interpretation Code Description Data Bryanna rce(s) Supporting Document(s ) JORGE TEST POSITIVE [facility] ID Date Data Source [id number] 01/08/2020 08:20:00 AM EDT [facility] Value Range Interpretation Code Description Data Bryanna rce(s) Supporting Document(s ) READ BACK Yes/ [facility] ID Date Data Source [id number] 01/08/2020 08:20:00 AM EDT [facility] Value Range Interpretation Code Description Data Bryanna rce(s) Supporting Document(s ) NOTE WHO DR GAY [facility] ID Date Data Source [id number] 01/08/2020 08:20:00 AM EDT [facility] Value Range Interpretation Description Data Sup porting Code Source(s) Document(s ) IONIZED 1.25 [facility] CALCIUM mmol/L Hospital ID Date Data Source [id number] 01/08/2020 08:20:00 AM EDT [facility] Value Range Interpretation Code Description Data Supporting Source(s) Document(s ) METHEMOGLOBIN 0.6 % [facility] ID Date Data Source [id number] 01/08/2020 08:20:00 AM EDT [facility] Value Range Interpretation Description Data Sup porting Code Source(s) Document(s ) CARBOXYHEMOGLOBIN 0.8 % [facility] ID Date Data Source [id number] 01/08/2020 08:20:00 AM EDT [facility] Value Range Interpretation Code Description Data Bryanna rce(s) Supporting Document(s ) ABG TEMP 98.0 [facility] ID Date Data Source [id number] 01/08/2020 08:20:00 AM EDT [facility] Value Range Interpretation Code Description Data Bryanna rce(s) Supporting Document(s ) FIO2 21 % [facility] ID Date Data Source [id number] 01/08/2020 08:20:00 AM EDT [facility] Value Range Interpretation Code Description Data Bryanna rce(s) Supporting Document(s ) ABG BE 0.6 mmol/L [facility] ID Date Data Source [id number] 01/08/2020 08:20:00 AM EDT [facility] Value Range Interpretation Code Description Data Bryanna rce(s) Supporting Document(s ) ABG O2SAT 92 % [facility] ID Date Data Source [id number] 01/08/2020 08:20:00 AM EDT [facility] Value Range Interpretation Code Description Data Bryanna rce(s) Supporting Document(s ) ABG HCO3 25 mmol/L [facility] ID Date Data Source [id number] 01/08/2020 08:20:00 AM EDT [facility] Value Range Interpretation Code Description Data Bryanna rce(s) Supporting Document(s ) ABG PO2 64 mm[Hg] [facility] ID Date Data Source [id number] 01/08/2020 08:20:00 AM EDT [facility] Name Value Range Interpretation Code Description Data Bryanna rce(s) Supporting Document(s ) ABG PCO2 39 mm[Hg] [facility] ID Date Data Source [id number] 01/08/2020 08:20:00 AM EDT [facility] Name Value Range Interpretation Code Description Data Bryanna rce(s) Supporting Document(s ) ABG PH 7.42 [facility] ID Date Data Source [id number] 01/08/2020 08:20:00 AM EDT [facility] Name Value Range Interpretation Code Description Data Bryanna rce(s) Supporting Document(s ) JORGE TEST POSITIVE [facility] ID Date Data Source [id number] 01/08/2020 08:04:00 AM EDT [facility] Name Value Range Interpretation Description Data Sup porting Code Source(s) Document(s ) Arth[employer] [facility] Identification [facility] [place] [facility] ID Date Data Source [id number] 01/08/2020 08:04:00 AM EDT [facility] Name Value Range Interpretation Description Data Sup porting Code Source(s) Document(s ) Arth[employer] White Identification L[facility]ULARI[facility] [place] [facility] ID Date Data Source [id number] 01/08/2020 08:04:00 AM EDT [facility] Name Value Range Interpretation Description Data Sup porting Code Source(s) Document(s ) Arth[employer] White Identification [facility]ULAR[facility] [place] [facility] ID Date Data Source [id number] 01/08/2020 07:47:00 AM EDT [facility] Name Value Range Interpretation Description Data Sup porting Code Source(s) Document(s ) Bacteria No growth [facility] identified in Hospital Blood by Culture ID Date Data Source [id number] 01/08/2020 07:47:00 AM EDT [facility] Name Value Range Interpretation Description Data Sup porting Code Source(s) Document(s ) Bacteria No growth [facility] identified in Hospital Blood by Culture ID Date Data Source [id number] 01/08/2020 07:20:00 AM EDT [facility] Name Value Range Interpretation Description Data Sup porting Code Source(s) Document(s ) GLUCOSE RN Notified [facility] ID Date Data Source [id number] 01/08/2020 07:20:00 AM EDT [facility] Value Range Interpretation Description Data Sup porting Code Source(s) Document(s ) GLUCOSE RN Notified [facility] Hospital ID Date Data Source [id number] 2020 07:11:00 PM EDT [facility] Name Value Range Interpretation Description Data Sup porting Code Source(s) Document(s ) Calcium 8.6 mg/dL [facility] [Mass/volume Hospital ] in Serum or Plasma ID Date Data Source [id number] 2020 07:11:00 PM EDT [facility] Name Value Range Interpretation Code Description Data Bryanna rce(s) Supporting Document(s ) Urea 10.0 [facility] nitrogen/Cre Hospital atinine [Mass Ratio] in Serum or Plasma ID Date Data Source [id number] [facility] Interpretation Description Data Sup porting Code Source(s) Document(s ) Creatinine 0.9 mg/dL [facility] [Mass/volume] Hospital in Serum or Plasma ID Date Data Source [id number] 2020 07:11:00 PM EDT [facility] Name Value Range Interpretation Description Data Sup porting Code Source(s) Document(s ) Urea nitrogen 9 mg/dL [facility] [Mass/volume] Hospital in Serum or Plasma ID Date Data Source [id number] 2020 07:11:00 PM EDT [facility] Value Range Interpretation Code Description Data Bryanna rce(s) Supporting Document(s ) Anion gap in 18 [facility] Serum or [facility] Plasma ID Date Data Source [id number] 2020 07:11:00 PM EDT [facility] Value Range Interpretation Description Data Sup porting Code Source(s) Document(s ) Carbon 23 mmol/L [facility] dioxide, Hospital total [Moles/volu me] in Serum or Plasma ID Date Data Source [id number] 2020 07:11:00 PM EDT [facility] Name Value Range Interpretation Description Data Sup porting Code Source(s) Document(s ) Chloride 100 [facility] [Moles/volum mmol/L Hospital e] in Serum or Plasma ID Date Data Source [id number] 2020 07:11:00 PM EDT [facility] Value Range Interpretation Description Data Sup porting Code Source(s) Document(s ) Potassium 3.8 [facility] [Moles/volume mmol/L Hospital ] in Serum or Plasma ID Date Data Source [id number] 2020 07:11:00 PM EDT [facility] Name Value Range Interpretation Description Data Sup porting Code Source(s) Document(s ) Sodium 137 mmol/L [facility] [Moles/volu Hospital me] in Serum or Plasma ID Date Data Source [id number] 2020 [facility] Value [facility] Interpretation Description Data Sup porting Code Source(s) Document(s ) Glucose 394 mg/dL [facility] [Mass/volume Hospital ] in Serum or Plasma ID Date Data Source [id number] 2020 05:39:00 PM [facility] Manager Social Services:YOLANDE DA SILVA Name Value Range Interpretation Description Data Sup porting Code Source(s) Document(s ) Glucose 491 mg/dL [facility] [Mass/volume] Hospital in Capillary blood by Glucometer ID Date Data Source [id number] [facility] Description Data Sup porting Code Source(s) Document(s ) Leukocyte NEGATIVE [facility] esterase [facility] [Presence] in Urine by Test strip ID Date Data Source [id number] 2020 04:11:00 PM [facility] Name Value Range Interpretation Description Data Sup porting Code Source(s) Document(s ) URINE NEGATIVE [facility] ID Date Data Source [id number] 2020 04:11:00 PM [facility] Value Range Interpretation Description Data Sup porting Code Source(s) Document(s ) Erythrocytes NEGATIVE [facility] [#/volume] in Hospital Urine by Test strip ID Date Data Source [id number] 2020 04:11:00 PM [facility] Name Value Range Interpretation Code Description Data Bryanna rce(s) Supporting Document(s ) Bilirubin. NEGATIVE [facility] total Hospital [Presence] in Urine by Test strip ID Date Data Source [id number] [facility] Description Data Sup porting Code Source(s) Document(s ) Urobilinogen 0.2 [facility] [Units/volume] mg/dL Hospital in Urine by Test strip ID Date Data Source [id number] 2020 04:11:00 PM EDT [facility] Name Value Range Interpretation Code Description Data Bryanna rce(s) Supporting Document(s ) Ketones 1+ [facility] [Mass/volume [facility] ] in Urine by Test strip ID Date Data Source [id number] 2020 04:11:00 PM EDT [facility] Name Value Range Interpretation Code Description Data Bryanna rce(s) Supporting Document(s ) Glucose 3+ [facility] [Mass/volume Hospital ] in Urine by Test strip ID Date Data Source [id number] 2020 04:11:00 PM EDT [facility] Value Range Interpretation Description Data Sup porting Code Source(s) Document(s ) Protein NEGATIVE [facility] [Presence] [facility] in Urine by Test strip ID Date Data Source [id number] 2020 04:11:00 PM EDT [facility] Name Value Range Interpretation Code Description Data Bryanna rce(s) Supporting Document(s ) pH of Urine 5.5 [facility] by Test Hospital strip ID Date Data Source [id number] 2020 04:11:00 PM EDT [facility] Name Value Range Interpretation Code Description Data Supporting Source(s) Document(s ) Specific 1.043 [facility] gravity of Hospital Urine by Test strip ID Date Data Source [id number] 2020 04:11:00 PM EDT [facility] Name Value Range Interpretation Description Data Sup porting Code Source(s) Document(s ) Clarity in Urine CLEAR [facility] by [facility] automated ID Date Data Source [id number] 2020 04:11:00 PM EDT [facility] Name Value Range Interpretation Code Description Data Bryanna rce(s) Supporting Document(s ) Color of YELLOW [facility] Urine Hospital ID Date Data Source [id number] 2020 03:51:00 PM EDT [facility] Name Value Range Interpretation Code Description Data Supporting Source(s) Document(s ) NUCLEATED RBCS 0.0 % [facility] (AUTO Hospital DIFF%)DIS ID Date Data Source [id number] 2020 03:51:00 PM EDT [facility] Name Value Range Interpretation Description Data Sup porting Code Source(s) Document(s ) Differential AUTOMATED [facility] cell count [facility] method - Blood ID Date Data Source [id number] 2020 03:51:00 PM EDT [facility] Value Range Interpretation Description Data Sup porting Code Source(s) Document(s ) Immature 0.00 [facility] granulocytes 10*3/uL Hospital [#/volume] in Blood by Automated count ID Date Data Source [id number] 2020 03:51:00 PM EDT [facility] Value Range Interpretation Description Data Sup porting Code Source(s) Document(s ) Basophils 0.02 [facility] [#/volume] in 10*3/uL Hospital Blood by Automated count ID Date Data Source [id number] 2020 03:51:00 PM EDT [facility] Name Value Range Interpretation Description Data Sup porting Code Source(s) Document(s ) Eosinophils 0.04 [facility] [#/volume] in 10*3/uL Hospital Blood by Automated count ID Date Data Source [id number] 2020 03:51:00 PM EDT [facility] Name Value Range Interpretation Description Data Sup porting Code Source(s) Document(s ) Monocytes 0.28 [facility] [#/volume] in 10*3/uL Hospital Blood by Automated count ID Date Data Source [id number] 2020 03:51:00 PM EDT [facility] Name Value Range Interpretation Description Data Sup porting Code Source(s) Document(s ) Lymphocytes 1.26 [facility] [#/volume] in 10*3/uL Hospital Blood by Automated count ID Date Data Source [id number] 2020 03:51:00 PM EDT [facility] Value Range Interpretation Description Data Sup porting Code Source(s) Document(s ) Neutrophils 1.42 [facility] [#/volume] in 10*3/uL Hospital Blood by Automated count ID Date Data Source [id number] 2020 03:51:00 PM EDT [facility] Value Range Interpretation Description Data Sup porting Code Source(s) Document(s ) Nucleated 0.0 % [facility] erythrocytes/10 Hospital 0 leukocytes [Ratio] in Blood by Automated count ID Date Data Source [id number] 2020 03:51:00 PM EDT [facility] Value Range Interpretation Description Data Sup porting Code Source(s) Document(s ) Immature 0.0 % [facility] granulocytes/10 Hospital 0 leukocytes in Blood by Automated count ID Date Data Source [id number] 2020 03:51:00 PM EDT [facility] Value Range Interpretation Description Data Sup porting Code Source(s) Document(s ) Basophils/100 0.7 % [facility] leukocytes in Hospital Blood by Automated count ID Date Data Source [id number] 2020 03:51:00 PM EDT [facility] Value Range Interpretation Description Data Sup porting Code Source(s) Document(s ) Eosinophils/100 1.3 % [facility] leukocytes in Hospital Blood by Automated count ID Date Data Source [id number] 2020 03:51:00 PM EDT [facility] Name Value Range Interpretation Description Data Sup porting Code Source(s) Document(s ) Monocytes/100 9.3 % [facility] leukocytes in Hospital Blood by Automated count ID Date Data Source [id number] 2020 03:51:00 PM EDT [facility] Name Value Range Interpretation Description Data Sup porting Code Source(s) Document(s ) Lymphocytes/10 41.7 % [facility] 0 leukocytes Hospital in Blood by Automated count ID Date Data Source [id number] 2020 03:51:00 PM EDT [facility] Value Range Interpretation Description Data Sup porting Code Source(s) Document(s ) Neutrophils/10 47.0 % [facility] 0 leukocytes Hospital in Blood by Automated count ID Date Data Source [id number] 2020 03:51:00 PM EDT [facility] Name Value Range Interpretation Description Data Sup porting Code Source(s) Document(s ) Platelet mean 12.9 fL [facility] volume Hospital [Entitic volume] in Blood by Automated count ID Date Data Source [id number] 2020 03:51:00 PM EDT [facility] Name Value Range Interpretation Description Data Sup porting Code Source(s) Document(s ) Platelets 154 [facility] [#/volume] in 10*3/uL Hospital Blood by Automated count ID Date Data Source [id number] 2020 03:51:00 PM EDT [facility] Value Range Interpretation Description Data Sup porting Code Source(s) Document(s ) Erythrocyte 14.2 % [facility] distribution Hospital width [Ratio] by Automated count ID Date Data Source [id number] 2020 03:51:00 PM [facility] Name Value Range Interpretation Description Data Sup porting Code Source(s) Document(s ) Erythrocyte mean 35.0 [facility] corpuscular g/dL Hospital hemoglobin concentration [Mass/volume] by Automated count ID Date Data Source [id number] 2020 03:51:00 PM [facility] Name Value Range Interpretation Description Data Sup porting Code Source(s) Document(s ) Erythrocyte 30.3 pg [facility] corpuscular hemoglobin [Entitic mass] by Automated count ID Date Data Source [id number] 2020 03:51:00 PM [facility] THIS TEST RESULT HAS BEEN CONFIRMED BY R EPEAT ANALYSIS. Name Value Range Interpretation Description Data Sup porting Code Source(s) Document(s ) Erythrocyte 86.6 fL [facility] corpuscular volume [Entitic volume] by Automated count ID Date Data Source [id number] 2020 03:51:00 PM [facility] Value Range Interpretation Description Data Sup porting Code Source(s) Document(s ) Hematocrit 32.3 % [facility] [Volume Hospital Fraction] of Blood by Automated count ID Date Data Source [id number] 2020 03:51:00 PM [facility] Name Value Range Interpretation Description Data Sup porting Code Source(s) Document(s ) Hemoglobin 11.3 g/dL [facility] [Mass/volume] Hospital in Blood ID Date Data Source [id number] 2020 03:51:00 PM [facility] Name Value Range Interpretation Description Data Sup porting Code Source(s) Document(s ) Erythrocytes 3.73 [facility] [#/volume] in 10*6/uL Hospital Blood by Automated count ID Date Data Source [id number] 2020 03:51:00 PM EDT [facility] Name Value Range Interpretation Description Data Sup porting Code Source(s) Document(s ) Leukocytes 3.0 [facility] [#/volume] in 10*3/uL Hospital Blood by Automated count ID Date Data Source [id number] 12/29/2019 [facility]:18[facility] Per[facility] by:[facility] [id number] [place], [place] [address]Ccz Directo r: Mukesh Rduolph M.D. Ph.D.; CLIA# [id number] Name Value Range Interpretation Code Description Data Bryanna rce(s) Supporting Document(s ) ALPHA-1-A 107 mg/dL [facility] N ID Date Data Source [id number] 12/29/2019 03:18:00 PM [facility] HCV RNA QUANTITATION BY OZZIE DIANE Ampl iPrep/DIANE TaqMan HCV TEST v2.0. Name Value Range Interpretation Description Data Sup porting Code Source(s) Document(s ) Hepatitis C 0.00 [facility] virus RNA [log {copies} Hospital units/volume] /mL (viral load) in Serum or Plasma by Probe and target amplification method ID Date Data Source [id number] 12/29/2019 03:18:00 PM [facility] NO VIRUS DETECTED. Name Value Range Interpretation Description Data Sup porting Code Source(s) Document(s ) Hepatitis C 0 [facility] virus RNA [IU]/mL Hospital [Units/volume] (viral load) in Serum or Plasma by Probe and target amplification method ID Date Data Source [id number] 12/[facility]2019 [facility] Name Value Range Interpretation Description Data Sup porting Code Source(s) Document(s ) Hepatitis B NON-REACT [facility] virus core Ab [facility] [Presence] in Serum ID Date Data Source [id number] 12/29/2019 03:18:00 PM EDT [facility] Name Value Range Interpretation Description Data Sup porting Code Source(s) Document(s ) Hepatitis A NON-REACT [place] [facility] virus IgM Ab [facility] [Presence] in Serum ID Date Data Source [id number] 12/29/2019 03:18:00 PM EDT [facility] Name Value Range Interpretation Description Data Sup porting Code Source(s) Document(s ) Hepatitis A REACTIVE [facility] virus Ab Hospital [Presence] in Serum ID Date Data Source [id number] 12/29/2019 03:18:00 PM EDT [facility] Name Value Range Interpretation Description Data Sup porting Code Source(s) Document(s ) Hepatitis B NON-REACT [facility] virus surface [facility] Ab [Presence] in Serum ID Date Data Source [id number] 12/29/2019 03:18:00 PM EDT [facility] Name Value Range Interpretation Description Data Sup porting Code Source(s) Document(s ) Hepatitis B NON-REACT [facility] virus surface [facility] Ag [Presence] in Serum ID Date Data Source [id number] 12/29/2019 03:18:00 PM EDT [facility] Name Value Range Interpretation Description Data Sup porting Code Source(s) Document(s ) Ferritin 67.0 [facility] [Mass/volume ng/mL Hospital ] in Serum or Plasma ID Date Data Source [id number] 12/29/2019 03:18:00 PM EDT [facility] Name Value Range Interpretation Description Data Sup porting Code Source(s) Document(s ) Iron saturation 12 % [facility] [Mass Fraction] Hospital in Serum or Plasma ID Date Data Source [id number] 12/29/2019 [facility] Name Value Range Interpretation Description Data Sup porting Code Source(s) Document(s ) UNSAT IRON 309 ug/dL [facility] CAPACITY ID Date Data Source [id number] 12/29/2019 03:18:[facility] Name Value Range Interpretation Description Data Sup porting Code Source(s) Document(s ) Iron binding 355 ug/dL [facility] [Mass/volume ] in Serum or Plasma ID Date Data Source [id number] 12/29/2019 03:18:00 PM [facility] Name Value Range Interpretation Code Description Data Supporting Source(s) Document(s ) Iron 46 ug/dL [facility] [Mass/volum Hospital e] in Serum or Plasma ID Date Data Source [id number] 12/29/2019 03:18:00 PM [facility] NOTE: NEW METHODOLOGY ,EFFECTIVE 8.TEST PERFORMED BY [employer] CHEMILUMINESCENCE LOCI TECHNOLOGY.REFERE NCE RANGE APPLIES TO MALES AND NON- FEMALES ONLY.AFP TUMOR MARKER IS NOT TO BE USED A DIAGNOSTIC TOOL WITHOUT CLINICAL EVALUATION. THE ASSAY SHOULD NOT BE USED A SCREENING TEST FOR MALIGNANCY. VALUES OBTAINED WIT H DIFFERENT ASSAY METHODS OR PERSONAL DEVELOPMENT COACH KITS CANNOT BE USED INTERCHANGEABLY.RESU LTS CANNOT BE INTERPRETED A TUMOR MARKER IN FEMALES. Name Value Range Interpretation Description Data Sup porting Code Source(s) Document(s ) Alpha-1-fet 36.6 ng/mL [facility] oprotein.[facility] mor marker [Mass/volum e] in Serum or Plasma ID Date Data Source [id number] 12/29/2019 03:18:00 PM [facility] Name Value Range Interpretation Description Data Sup porting Code Source(s) Document(s ) Bilirubin.d 0.3 mg/dL [facility] Hospital [Mass/volum e] in Serum or Plasma ID Date Data Source [id number] 12/29/2019 03:18:00 PM EDT [facility] Test Performed by:[facility] [place], [place] [address]Zdq Directo r: Mukesh Rudolph M.D. Ph.D.; CLIA# [id number] Name Value Range Interpretation Code Description Data Bryanna rce(s) Supporting Document(s ) ALPHA-1-A 107 mg/dL [facility] ID Date Data Source [id number] 12/29/2019 03:18:00 PM EDT [facility] HCV RNA QUANTITATION BY OZZIE DIANE Ampl iPrep/DIANE TaqMan HCV TEST v2.0. Name Value Range Interpretation Description Data Sup porting Code Source(s) Document(s ) Hepatitis C 0.00 [facility] virus RNA [log {copies} Hospital units/volume] /mL (viral load) in Serum or Plasma by Probe and target amplification method ID Date Data Source [id number] 12/29/2019 03:18:00 PM EDT [facility] NO VIRUS DETECTED. Name Value Range Interpretation Description Data Sup porting Code Source(s) Document(s ) Hepatitis C 0 [facility] virus RNA [IU]/mL Hospital [Units/volume] (viral load) in Serum or Plasma by Probe and target amplification method ID Date Data Source [id number] 12/29/2019 03:18:00 PM EDT [facility] Name Value Range Interpretation Description Data Sup porting Code Source(s) Document(s ) Hepatitis B NON-REACT [facility] virus core Ab [facility] [Presence] in Serum ID Date Data Source [id number] 12/29/2019 [facility] Name Value Range Interpretation Description Data Sup porting Code Source(s) Document(s ) Hepatitis A NON-REACT [facility] virus IgM Ab [facility] [Presence] in Serum ID Date Data Source [id number] 12/29/2019 03:18:00 PM EDT [facility] Name Value Range Interpretation Description Data Sup porting Code Source(s) Document(s ) Hepatitis A REACTIVE [facility] virus Ab Hospital [Presence] in Serum ID Date Data Source [id number] 12/29/2019 03:18:00 PM EDT [facility] Name Value Range Interpretation Description Data Sup porting Code Source(s) Document(s ) Hepatitis B NON-REACT [facility] virus surface [facility] Ab [Presence] in Serum ID Date Data Source [id number] 12/29/2019 03:18:00 PM EDT [facility] Name Value Range Interpretation Description Data Sup porting Code Source(s) Document(s ) Hepatitis B NON-REACT [facility] virus surface [facility] Ag [Presence] in Serum ID Date Data Source [id number] 12/29/2019 03:18:00 PM EDT [facility] Name Value Range Interpretation Description Data Sup porting Code Source(s) Document(s ) Ferritin 67.0 [facility] [Mass/volume ng/mL Hospital ] in Serum or Plasma ID Date Data Source [id number] 12/29/2019 03:18:00 PM EDT [facility] Name Value Range Interpretation Description Data Sup porting Code Source(s) Document(s ) Iron saturation 12 % [facility] [Mass Fraction] [facility] in Serum or Plasma ID Date Data Source [id number] 12/29/2019 03:18:00 PM EDT [facility] Name Value Range Interpretation Description Data Sup porting Code Source(s) Document(s ) UNSAT IRON 309 ug/dL [facility] CAPACITY ID Date Data Source [id number] 12/29/2019 03[facility] Name Value Range Interpretation Description Data Sup porting Code Source(s) Document(s ) Iron binding 355 ug/dL [facility] capacity [facility] [Mass/volume ] in Serum or Plasma ID Date Data Source [id number] 12/29/2019 03:18:00 PM [facility] Name Value Range Interpretation Code Description Data Supporting Source(s) Document(s ) Iron 46 ug/dL [facility] [Mass/volum Hospital e] in Serum or Plasma ID Date Data Source [id number] 12/29/2019 03:18:00 PM [facility] NOTE: NEW METHODOLOGY ,EFFECTIVE 8.TEST PERFORMED BY [employer] CHEMILUMINESCENCE LOCI TECHNOLOGY.REFERE NCE RANGE APPLIES TO MALES AND NON- FEMALES ONLY.AFP TUMOR MARKER IS NOT TO BE USED A DIAGNOSTIC TOOL WITHOUT CLINICAL EVALUATION. THE ASSAY SHOULD NOT BE USED A SCREENING TEST FOR MALIGNANCY. VALUES OBTAINED WIT H DIFFERENT ASSAY METHODS OR PERSONAL DEVELOPMENT COACH KITS CANNOT BE USED INTERCHANGEABLY.RESU LTS CANNOT BE INTERPRETED A TUMOR MARKER IN FEMALES. Name Value Range Interpretation Description Data Sup porting Code Source(s) Document(s ) Alpha-1-fet 36.6 ng/mL [facility] oprotein.[facility] mor marker [Mass/volum e] in Serum or Plasma ID Date Data Source [id number] 12/29/2019 03:18:00 PM [facility] Name Value Range Interpretation Description Data Sup porting Code Source(s) Document(s ) Magnesium 2.0 mg/dL [facility] [Mass/volume] Hospital in Serum or Plasma ID Date Data Source [id number] 12/29/2019 03:18:00 PM [facility] Name Value Range Interpretation Description Data Sup porting Code Source(s) Document(s ) Aspartate 39 U/L White aminotransferase [place] [Enzymatic Hospital activity/volume] in Serum or Plasma ID Date Data Source [id number] 12/29/2019 03:18:00 PM EDT [facility] Name Value Range Interpretation Description Data Sup porting Code Source(s) Document(s ) Alanine 29 U/L [facility] [Enzymatic Hospital activity/volume] in Serum or Plasma ID Date Data Source [id number] 12/29/2019 03:18:00 PM EDT [facility] Name Value Range Interpretation Description Data Sup porting Code Source(s) Document(s ) Alkaline 110 U/L [facility] phosphatase Hospital [Enzymatic activity/volume ] in Serum or Plasma ID Date Data Source [id number] 12/29/2019 03:18:00 PM EDT [facility] Name Value Range Interpretation Description Data Sup porting Code Source(s) Document(s ) Bilirubin.d 0.3 mg/dL [facility] Hospital [Mass/volum e] in Serum or Plasma ID Date Data Source [id number] 12/29/2019 03:18:00 PM EDT [facility] Name Value Range Interpretation Description Data Sup porting Code Source(s) Document(s ) Bilirubin.t 0.8 mg/dL [facility] [Mass/volum e] in Serum or Plasma ID Date Data Source [id number] 12/29/2019 03:18:00 PM EDT [facility] Name Value Range Interpretation Code Description Data Bryanna rce(s) Supporting Document(s ) Albumin/Glob 1.1 [facility] ulin [Mass Hospital Ratio] in Serum or Plasma ID Date Data Source [id number] 12/29/2019 [facility] Name Value Range Interpretation Description Data Sup porting Code Source(s) Document(s ) Albumin 3.8 g/dL [facility] [Mass/volume Hospital ] in Serum or Plasma ID Date Data Source [id number] 12/29/2019 03:18:[facility] Name Value Range Interpretation Description Data Sup porting Code Source(s) Document(s ) Protein 7.3 g/dL [facility] [Mass/volume Hospital ] in Serum or Plasma ID Date Data Source [id number] 12/29/2019 03:18:[facility] THERAPEUTIC RANGE FOR STANDARD ORALANTIC OAGULANT THERAPY: 2.0-3.0THERAPEUTIC RANGE FOR HIGH DOSE ORALANTICOAGULANT THERAPY (MECHANICAL HEARTVALVE REPLACEMENT): 2.5-3.5 Name Value Range Interpretation Description Data Sup porting Code Source(s) Document(s ) INR in Platelet 1.0 [facility] poor plasma by Hospital Coagulation assay ID Date Data Source [id number] 12/29/2019 03:18:00 PM [facility] Name Value Range Interpretation Description Data Sup porting Code Source(s) Document(s ) PT panel - 11.4 s [facility] Platelet poor [facility] plasma by Coagulation assay ID Date Data Source [id number] 12/29/2019 03:18:00 PM [facility] Test Performed by:[facility] [address] [address]Csl Direct r: Mukesh Rudolph M.D. Ph.D.; CLIA# [id number] Name Value Range Interpretation Code Description Data Bryanna rce(s) Supporting Document(s ) ALPHA-1-A 107 mg/dL [facility] ID Date Data Source [id number] 12/29/2019 03:18:00 PM [facility] HCV RNA QUANTITATION BY [employer]ZZIE DIANE Ampl iPrep/DIANE TaqMan HCV TEST v2.0. Name Value Range Interpretation Description Data Sup porting Code Source(s) Document(s ) Hepatitis C 0.00 [facility] [place] virus RNA [log {copies} Hospital units/volume] /mL (viral load) in Serum or Plasma by Probe and target amplification method ID Date Data Source [id number] 12/29/2019 03:18:00 PM [facility] NO VIRUS DETECTED. Name Value Range Interpretation Description Data Sup porting Code Source(s) Document(s ) Hepatitis C 0 [facility] virus RNA [IU]/mL Hospital [Units/volume] (viral load) in Serum or Plasma by Probe and target amplification method ID Date Data Source [id number] 12/29/2019 03:18:00 PM EDT [facility] Name Value Range Interpretation Description Data Sup porting Code Source(s) Document(s ) Hepatitis B NON-REACT [facility] virus core Ab [facility] [Presence] in Serum ID Date Data Source [id number] 12/29/2019 03:18:00 PM EDT [facility] Name Value Range Interpretation Description Data Sup porting Code Source(s) Document(s ) Hepatitis A NON-REACT [facility] virus IgM Ab [facility] [Presence] in Serum ID Date Data Source [id number] 12/29/2019 03:18:[facility] Name Value Range Interpretation Description Data Sup porting Code Source(s) Document(s ) Hepatitis A REACTIVE [facility] virus Ab Hospital [Presence] in Serum ID Date Data Source [id number] 12/29/2019 03:18:00 PM EDT [facility] Name Value Range Interpretation Description Data Sup porting Code Source(s) Document(s ) Hepatitis B NON-REACT [facility] virus surface [facility] Ab [Presence] in Serum ID Date Data Source [id number] 12/29/2019 03:18:00 PM EDT [facility] Name Value Range Interpretation Description Data Sup porting Code Source(s) Document(s ) Hepatitis B NON-REACT [facility] virus surface [facility] Ag [Presence] in Serum ID Date Data Source [id number] 12/29/2019 03:18:00 PM EDT [facility] Name Value Range Interpretation Description Data Sup porting Code Source(s) Document(s ) Ferritin 67.0 [facility] [Mass/volume ng/mL Hospital ] in Serum or Plasma ID Date Data Source [id number] 12/29/2019 03:18:00 PM EDT [facility] Name Value Range Interpretation Description Data Sup porting Code Source(s) Document(s ) Iron saturation 12 % [facility] [Mass Fraction] Hospital in Serum or Plasma ID Date Data Source [id number] 12/29/2019 03:18:00 PM EDT [facility] Name Value Range Interpretation Description Data Sup porting Code Source(s) Document(s ) UNSAT IRON 309 ug/dL [facility] CAPACITY ID Date Data Source [id number] 12/29/2019 03:18:00 PM EDT [facility] Name Value Range Interpretation Description Data Sup porting Code Source(s) Document(s ) Iron binding 355 ug/dL [facility] capacity [facility] [Mass/volume ] in Serum or Plasma ID Date Data Source [id number] 12/29/2019 03:18:00 PM EDT [facility] Name Value Range Interpretation Code Description Data Supporting Source(s) Document(s ) Iron 46 ug/dL [facility] [Mass/volum Hospital e] in Serum or Plasma ID Date Data Source [id number] 12/29/2019 03[facility]18[facility] NOTE: NEW METHODOLOGY ,EFFECTIVE 8.TEST PERFORMED BY [employer] CHEMILUMINESCENCE LOCI TECHNOLOGY.REFERE NCE RANGE APPLIES TO MALES AND NON- FEMALES ONLY.AFP TUMOR MARKER IS NOT TO BE USED A DIAGNOSTIC TOOL WITHOUT CLINICAL EVALUATION. THE ASSAY SHOULD NOT BE USED A SCREENING TEST FOR MALIGNANCY. VALUES OBTAINED WIT H DIFFERENT ASSAY METHODS OR PERSONAL DEVELOPMENT COACH KITS CANNOT BE USED INTERCHANGEABLY.RESU LTS CANNOT BE INTERPRETED A TUMOR MARKER IN FEMALES. Name Value Range Interpretation Description Data Sup porting Code Source(s) Document(s ) Alpha-1-fet 36.6 ng/mL [facility] oprotein.[facility] mor marker [Mass/volum e] in Serum or Plasma ID Date Data Source [id number] 12/29/2019 03:18:00 PM EDT [facility] Name Value Range Interpretation Description Data Sup porting Code Source(s) Document(s ) Bilirubin.d 0.3 mg/dL [facility] [Mass/volum e] in Serum or Plasma ID Date Data Source [id number] 12/29/2019 03:18:00 PM [facility] Test Performed by:[facility] [address] [address] Directo r: Mukesh Rudolph M.D. Ph.D.; CLIA# [id number] Name Value Range Interpretation Code Description Data Bryanna rce(s) Supporting Document(s ) ALPHA-1-A 107 mg/dL [facility] NT[facility] N ID Date Data Source [id number] 12/29/2019 03:18:[facility] RNA QUANTITATION BY OZZIE DIANE Ampl iPrep/DIANE TaqMan HCV TEST v2.0. Name Value Range Interpretation Description Data Sup porting Code Source(s) Document(s ) Hepatitis C 0.00 [facility] [place] virus RNA [log {copies} Hospital units/volume] /mL (viral load) in Serum or Plasma by Probe and target amplification method ID Date Data Source [id number] 12/29/2019 03:18:[facility] NO [facility]IRUS [facility]ED. Name Value Range Interpretation Description Data Sup porting Code Source(s) Document(s ) Hepatitis C 0 [facility] [place] virus RNA [IU]/mL Hospital [Units/volume] (viral load) in Serum or Plasma by Probe and target amplification method ID Date Data Source [id number] 12/29/2019 03:18:00 PM EDT [facility] Name Value Range Interpretation Description Data Sup porting Code Source(s) Document(s ) Hepatitis B NON-REACT [facility] virus core Ab [facility] [Presence] in Serum ID Date Data Source [id number] 12/29/2019 03:18:00 PM EDT [facility] Name Value Range Interpretation Description Data Sup porting Code Source(s) Document(s ) Hepatitis A NON-REACT [facility] virus IgM Ab [facility] [Presence] in Serum ID Date Data Source [id number] 12/29/2019 03:18:00 PM EDT [facility] Name Value Range Interpretation Description Data Sup porting Code Source(s) Document(s ) Hepatitis A REACTIVE [facility] virus Ab Hospital [Presence] in Serum ID Date Data Source [id number] 12/29/2019 03:18:00 PM EDT [facility] Name Value Range Interpretation Description Data Sup porting Code Source(s) Document(s ) Hepatitis B NON-REACT [facility] virus surface [facility] [Presence] in Serum ID Date Data Source [id number] 12/29/2019 03:18:00 PM EDT [facility] Name Value Range Interpretation Description Data Sup porting Code Source(s) Document(s ) Hepatitis B NON-REACT [facility] virus surface [facility] Ag [Presence] in Serum ID Date Data Source [id number] 12/29/2019 03:18:00 PM EDT [facility] Name Value Range Interpretation Description Data Sup porting Code Source(s) Document(s ) Ferritin 67.0 [facility] [Mass/volume ng/mL Hospital ] in Serum or Plasma ID Date Data Source [id number] 12/29/2019 03:18:00 PM EDT [facility] Name Value Range Interpretation Description Data Sup porting Code Source(s) Document(s ) Iron saturation 12 % [facility] [Mass Fraction] Hospital in Serum or Plasma ID Date Data Source [id number] 12/29/2019 03:18:00 PM EDT [facility] Name Value Range Interpretation Description Data Sup porting Code Source(s) Document(s ) UNSAT IRON 309 ug/dL [facility] CAPACITY ID Date Data Source [id number] 12/29/2019 03:18:[facility] Name Value Range Interpretation Description Data Sup porting Code Source(s) Document(s ) Iron binding 355 ug/dL [facility] capacity Hospital [Mass/volume ] in Serum or Plasma ID Date Data Source [id number] 12/29/2019 03:18:00 PM EDT [facility] Name Value Range Interpretation Code Description Data Supporting Source(s) Document(s ) Iron 46 ug/dL [facility] [Mass/volum Hospital e] in Serum or Plasma ID Date Data Source [id number] 12/29/2019 03:18:00 PM [facility] NOTE: NEW METHODOLOGY ,EFFECTIVE 8.TEST PERFORMED BY [employer] CHEMILUMINESCENCE LOCI TECHNOLOGY.REFERE NCE RANGE APPLIES TO MALES AND NON- FEMALES ONLY.AFP TUMOR MARKER IS NOT TO BE USED A DIAGNOSTIC TOOL WITHOUT CLINICAL EVALUATION. THE ASSAY SHOULD NOT BE USED A SCREENING TEST FOR MALIGNANCY. VALUES OBTAINED WIT H DIFFERENT ASSAY METHODS OR PERSONAL DEVELOPMENT COACH KITS CANNOT BE USED INTERCHANGEABLY.RESU LTS CANNOT BE INTERPRETED A TUMOR MARKER IN FEMALES. Name Value Range Interpretation Description Data Sup porting Code Source(s) Document(s ) Alpha-1-fet 36.6 ng/mL [facility] mor marker [Mass/volum e] in Serum or Plasma ID Date Data Source [id number] 12/29/2019 03[facility]18:[facility] Name Value Range Interpretation Description Data Sup porting Code Source(s) Document(s ) Bilirubin.d 0.3 mg/dL [facility] [Mass/volum e] in Serum or Plasma ID Date Data Source [id number] 12/21/2019 08:29:00 AM [facility] Manager Social Services:TRACIE ACE Name Value Range Interpretation Description Data Sup porting Code Source(s) Document(s ) Glucose 327 mg/dL [facility] [Mass/volume] Hospital in Capillary blood by Glucometer ID Date Data Source [id number] 12/21/2019 07:35:00 AM [facility] CUT-OFF >= 25 NG/ML.THE FINDINGS OF [...] rce(s) Supporting Document(s ) PCP (UR) NEGATIVE [facility] ID Date Data Source [id number] 12/21/2019 07:35:00 AM [facility] CUT-OFF >= 50 NG/ML. Name Value Range Interpretation Code Description Data Bryanna rce(s) Supporting Document(s ) THC (UR) NEGATIVE [facility] ID Date Data Source [id number] 12/21/2019 07:35:00 AM [facility] CUT-OFF >= 300 NG/ML. Name Value Range Interpretation Description Data Sup porting Code Source(s) Document(s ) OPIATES (UR) NEGATIVE [facility] ID Date Data Source [id number] 12/21/2019 07:35:00 AM EDT [facility] CUT-OFF >= 300 NG/ML. Name Value Range Interpretation Description Data Sup porting Code Source(s) Document(s ) COCAINE (UR) POSITIVE [facility] ID Date Data Source [id number] 12/21/2019 07:35:00 AM EDT [facility] CUT-OFF >= 200 NG/ML. Name Value Range Interpretation Description Data Sup porting Code Source(s) Document(s ) BENZODIAZEPINES NEGATIVE [place] (UR) [facility] ID Date Data Source [id number] 12/21/2019 07:35:00 AM [facility] CUT-OFF >= 200 NG/ML. Name Value Range Interpretation Description Data Sup porting Code Source(s) Document(s ) BARBITURATES NEGATIVE [facility] ([facility] ID Date Data Source [id number] [facility] NG/ML. Name Value Range Interpretation Description Data Sup porting Code Source(s) Document(s ) AMPHETAMINES NEGATIVE [facility] ([facility] ID Date Data Source [id number] 12/21/2019 07:35:00 AM [facility] CUT-OFF >= 1000 NG/ML. Name Value Range Interpretation Description Data Sup porting Code Source(s) Document(s ) AMPHETAMINES NEGATIVE [facility] ([facility] ID Date Data Source [id number] 12/21/2019 07:35:00 AM [facility] Name Value Range Interpretation Description Data Sup porting Code Source(s) Document(s ) Leukocyte NEGATIVE [facility] [Presence] in Urine by Test strip ID Date Data Source [id number] 12/21/2019 [facility] Name Value Range Interpretation Description Data Sup porting Code Source(s) Document(s ) URINE NEGATIVE [facility] NITRITES Hospital ID Date Data Source [id number] 12/21/2019 07:35:00 AM EDT [facility] Name Value Range Interpretation Description Data Sup porting Code Source(s) Document(s ) Erythrocytes NEGATIVE [facility] [#/volume] in Hospital Urine by Test strip ID Date Data Source [id number] 12/21/2019 07:35:00 AM EDT [facility] Value Range Interpretation Code Description Data Bryanna rce(s) Supporting Document(s ) Bilirubin. NEGATIVE [facility] total Hospital [Presence] in Urine by Test strip ID Date Data Source [id number] 12/21/2019 07:35:00 AM EDT [facility] Value Range Interpretation Description Data Sup porting Code Source(s) Document(s ) Urobilinogen 1.0 [facility] [Units/volume] mg/dL Hospital in Urine by Test strip ID Date Data Source [id number] 12/21/2019 07:35:00 AM EDT [facility] Value Range Interpretation Description Data Sup porting Code Source(s) Document(s ) Ketones NEGATIVE [facility] [Mass/volume Hospital ] in Urine by Test strip ID Date Data Source [id number] 12/21/2019 07:35:00 AM EDT [facility] Name Value Range Interpretation Code Description Data Bryanna rce(s) Supporting Document(s ) Glucose 3+ [facility] [Mass/volume Hospital ] in Urine by Test strip ID Date Data Source [id number] 12/21/2019 07:35:00 AM EDT [facility] Name Value Range Interpretation Description Data Sup porting Code Source(s) Document(s ) Protein NEGATIVE [facility] [Presence] [facility] in Urine by Test strip ID Date Data Source [id number] 12/21/2019 [facility] Name Value Range Interpretation Code Description Data Bryanna rce(s) Supporting Document(s ) pH of Urine 8.0 [facility] by Test Hospital strip ID Date Data Source [id number] 12/21/2019 07[facility] Name Value Range Interpretation Code Description Data Supporting Source(s) Document(s ) Specific 1.023 [facility] gravity of Hospital Urine by Test strip ID Date Data Source [id number] 12/21/2019 07:35:00 AM [facility] Name Value Range Interpretation Description Data Sup porting Code Source(s) Document(s ) Clarity in Urine CLEAR [facility] by [facility] automated ID Date Data Source [id number] 12/21/2019 07:35:00 AM [facility] Name Value Range Interpretation Code Description Data Bryanna rce(s) Supporting Document(s ) Color of YELLOW [facility] Urine Hospital ID Date Data Source [id number] 12/21/2019 07:35:00 AM [facility] CUT-OFF >= 25 NG/ML.THE FINDINGS OF [...] rce(s) Supporting Document(s ) PCP (UR) NEGATIVE [facility] ID Date Data Source [id number] 12/21/2019 07:35:00 AM [facility] CUT-OFF >= 50 NG/ML. Name Value Range Interpretation Code Description Data Bryanna rce(s) Supporting Document(s ) THC (UR) NEGATIVE [facility] ID Date Data Source [id number] 12/21/2019 07:35:00 AM EDT [facility] CUT-OFF >= 300 NG/ML. Name Value Range Interpretation Description Data Sup porting Code Source(s) Document(s ) OPIATES (UR) NEGATIVE [facility] ID Date Data Source [id number] 12/21/2019 07:35:00 AM EDT [facility] CUT-OFF >= 300 NG/ML. Name Value Range Interpretation Description Data Sup porting Code Source(s) Document(s ) COCAINE (UR) POSITIVE [facility] ID Date Data Source [id number] 12/21/2019 07:35:00 AM EDT [facility] CUT-OFF >= 200 NG/ML. Name Value Range Interpretation Description Data Sup porting Code Source(s) Document(s ) BENZODIAZEPINES NEGATIVE [place] (UR) [facility] ID Date Data Source [id number] 12/21/2019 07:35:00 AM EDT [facility] CUT-OFF >= 200 NG/ML. Name Value Range Interpretation Description Data Sup porting Code Source(s) Document(s ) BARBITURATES NEGATIVE [facility] ([facility] ID Date Data Source [id number] 12/21/2019 06:46:00 AM EDT [facility] Name Value Range Interpretation Description Data Sup porting Code Source(s) Document(s ) GLUCOSE Notified [facility] Hospital ID Date Data Source [id number] 12/21/2019 06:46:00 AM EDT [facility] Name Value Range Interpretation Description Data Sup porting Code Source(s) Document(s ) GLUCOSE Notified [facility] Hospital ID Date Data Source [id number] 12/21/2019 06[facility]46:[facility] Name Value Range Interpretation Description Data Sup porting Code Source(s) Document(s ) GLUCOSE RN Notified [facility] ID Date Data Source [id number] 12/21/2019 06:46:[facility] Name Value Range Interpretation Description Data Sup porting Code Source(s) Document(s ) GLUCOSE MD Notified [place] [address] Hospital ID Date Data Source [id number] 12/21/2019 06:46:00 AM EDT [facility] Name Value Range Interpretation Description Data Sup porting Code Source(s) Document(s ) GLUCOSE MD Notified [place] [address] Hospital ID Date Data Source [id number] 12/21/2019 06:46:00 AM EDT [facility] Name Value Range Interpretation Description Data Sup porting Code Source(s) Document(s ) GLUCOSE RN Notified [facility] ID Date Data Source [id number] 12/21/2019 06:33:00 AM [facility] REFERENCE RANGES: NONE DETECTED <20 MG/DL NONE TO MILD EUPHORIA 20-49 MG/DL MILD EUPHORIA 50-99 MG/DL MODERATE EUPHORIA 100-149 MG/DL INTOXICATION 150-300 MG/DL Name Value Range Interpretation Description Data Sup porting Code Source(s) Document(s ) Ethanol < 20 [facility] [Mass/volume mg/dL Hospital ] in Serum or Plasma ID Date Data Source [id number] 12/21/2019 06:33:00 AM [facility] TEST PERFORMED BY [employer] CHEMILUMINESCENCE METHOD. Name Value Range Interpretation Description Data Sup porting Code Source(s) Document(s ) Troponin 0.01 [facility] I.cardiac ng/mL Hospital [Mass/volume ] in Serum or Plasma ID Date Data Source [id number] 12/21/2019 06:33:00 AM [facility] THERAPEUTIC RANGES:UNFRACTIONATED HEPARI N THERAPY: 60-90 SECONDSARGATROBAN THERAPY: 49-99 SECONDS Name Value Range Interpretation Description Data Sup porting Code Source(s) Document(s ) aPTT in 29.0 s [facility] Platelet poor [facility] plasma by Coagulation assay ID Date Data Source [id number] 12/21/2019 06:33:00 AM [facility] REFERENCE RANGES: NONE DETECTED <20 MG/DL NONE TO MILD EUPHORIA 20-49 MG/DL MILD EUPHORIA 50-99 MG/DL MODERATE EUPHORIA 100-149 MG/DL INTOXICATION 150-300 MG/DL Name Value Range Interpretation Description Data Sup porting Code Source(s) Document(s ) Ethanol < 20 [facility] [Mass/volume mg/dL Hospital ] in Serum or Plasma ID Date Data Source [id number] 12/21/2019 06:33:00 AM [facility] TEST PERFORMED BY [facility] [employer] [employer] [facility] CHEMILUMINESCENCE METHOD. Name Value Range Interpretation Description Data Sup porting Code Source(s) Document(s ) Troponin 0.01 [facility] I.cardiac ng/mL Hospital [Mass/volume ] in Serum or Plasma ID Date Data Source [id number] 12/21/2019 06:33:00 AM [facility] Name Value Range Interpretation Description Data Sup porting Code Source(s) Document(s ) Aspartate 90 U/L White aminotransferase [facility] [Enzymatic Hospital activity/volume] in Serum or Plasma ID Date Data Source [id number] 12/21/2019 06:33:00 AM [facility] Name Value Range Interpretation Description Data Sup porting Code Source(s) Document(s ) Alanine 35 U/L White aminotransferase [facility] [Enzymatic Hospital activity/volume] in Serum or Plasma ID Date Data Source [id number] 12/21/2019 06:33:00 AM EDT [facility] Name Value Range Interpretation Description Data Sup porting Code Source(s) Document(s ) Alkaline 75 U/L [facility] phosphatase Hospital [Enzymatic activity/volume ] in Serum or Plasma ID Date Data Source [id number] 12/21/2019 06[facility]33:[facility] Name Value Range Interpretation Description Data Sup porting Code Source(s) Document(s ) Bilirubin.t 1.0 mg/dL [facility] [Mass/volum e] in Serum or Plasma ID Date Data Source [id number] 12/21/2019 06:33:00 AM EDT [facility] Name Value Range Interpretation Code Description Data Bryanna rce(s) Supporting Document(s ) Albumin/Glob 1.2 [facility] [Mass Hospital Ratio] in Serum or Plasma ID Date Data Source [id number] 12/21/2019 06:33:00 AM EDT [facility] Name Value Range Interpretation Description Data Sup porting Code Source(s) Document(s ) Albumin 3.8 g/dL [facility] [Mass/volume Hospital ] in Serum or Plasma ID Date Data Source [id number] 12/21/2019 06:33:00 AM EDT [facility] Name Value Range Interpretation Description Data Sup porting Code Source(s) Document(s ) Protein 7.1 g/dL [facility] [Mass/volume Hospital ] in Serum or Plasma ID Date Data Source [id number] 12/21/2019 06:33:00 AM EDT [facility] Name Value Range Interpretation Description Data Sup porting Code Source(s) Document(s ) Calcium 9.1 mg/dL [facility] [Mass/volume Hospital ] in Serum or Plasma ID Date Data Source [id number] 12/21/2019 06:33:00 AM EDT [facility] Name Value Range Interpretation Code Description Data Bryanna rce(s) Supporting Document(s ) Urea 13.8 [facility] nitrogen/Cre Hospital atinine [Mass Ratio] in Serum or Plasma ID Date Data Source [id number] 12/21/2019 06:33:00 AM EDT [facility] Name Value Range Interpretation Description Data Sup porting Code Source(s) Document(s ) Creatinine 0.8 mg/dL [facility] [Mass/volume] Hospital in Serum or Plasma ID Date Data Source [id number] 12/21/2019 06:33:00 AM EDT [facility] Name Value Range Interpretation Description Data Sup porting Code Source(s) Document(s ) Urea 11 mg/dL [facility] nitrogen Hospital [Mass/volume ] in Serum or Plasma ID Date Data Source [id number] 12/21/2019 06:33:00 AM EDT [facility] Name Value Range Interpretation Code Description Data Bryanna rce(s) Supporting Document(s ) Anion gap in 14 [facility] Serum or [facility] Plasma ID Date Data Source [id number] 12/21/2019 06:33:00 AM EDT [facility] Name Value Range Interpretation Description Data Sup porting Code Source(s) Document(s ) Carbon 28 mmol/L [facility] dioxide, Hospital total [Moles/volu me] in Serum or Plasma ID Date Data Source [id number] 12/21/2019 06:33:00 AM EDT [facility] Name Value Range Interpretation Description Data Sup porting Code Source(s) Document(s ) Chloride 102 [facility] [Moles/volum mmol/L Hospital e] in Serum or Plasma ID Date Data Source [id number] 12/21/2019 06:33:00 AM EDT [facility] SLIGHT HEMOLYSIS Name Value Range Interpretation Description Data Sup porting Code Source(s) Document(s ) Potassium 5.7 [facility] [Moles/volume mmol/L Hospital ] in Serum or Plasma ID Date Data Source [id number] 12/21/2019 06[facility] Name Value Range Interpretation Description Data Sup porting Code Source(s) Document(s ) Sodium 138 mmol/L [facility] [Moles/volu Hospital mi] in Serum or Plasma ID Date Data Source [id number] 12/21/2019 06:33:[facility] Name Value Range Interpretation Description Data Sup porting Code Source(s) Document(s ) Glucose 351 mg/dL [facility] [Mass/volume Hospital ] in Serum or Plasma ID Date Data Source [id number] 12/21/2019 06:33:00 AM [facility] THERAPEUTIC RANGES:UNFRACTIONATED HEPARI N THERAPY: 60-90 SECONDSARGATROBAN THERAPY: 49-99 SECONDS Name Value Range Interpretation Description Data Sup porting Code Source(s) Document(s ) aPTT in 29.0 s [facility] Platelet poor [facility] plasma by Coagulation assay ID Date Data Source [id number] 12/21/2019 06:33:00 AM [facility] THERAPEUTIC RANGE FOR STANDARD ORALANTIC OAGULANT THERAPY: 2.0-3.0THERAPEUTIC RANGE FOR HIGH DOSE ORALANTICOAGULANT THERAPY (MECHANICAL HEARTVALVE REPLACEMENT): 2.5-3.5 Name Value Range Interpretation Description Data Sup porting Code Source(s) Document(s ) INR in Platelet 1.0 [facility] poor plasma by Hospital Coagulation assay ID Date Data Source [id number] 12/21/2019 06[facility]33[facility] Name Value Range Interpretation Description Data Sup porting Code Source(s) Document(s ) PT panel - 12.2 s [facility] Platelet poor [facility] plasma by Coagulation assay ID Date Data Source [id number] 12/[facility] Interpret[facility] Description Data Sup porting Code Source(s) Document(s ) Platelet mean 12.5 fL [facility] volume Hospital [Entitic volume] in Blood by Automated count ID Date Data Source [id number] 12/21/2019 06:33:00 AM EDT [facility] Value Range Interpretation Description Data Sup porting Code Source(s) Document(s ) Platelets 184 [facility] [#/volume] in 10*3/uL Hospital Blood by Automated count ID Date Data Source [id number] 12/21/2019 06:33:00 AM [facility] Value Range Interpretation Description Data Sup porting Code Source(s) Document(s ) Erythrocyte 14.5 % [facility] distribution Hospital width [Ratio] by Automated count ID Date Data Source [id number] 12/21/2019 06:33:00 AM [facility] Value Range Interpretation Description Data Sup porting Code Source(s) Document(s ) Erythrocyte mean 33.5 [facility] corpuscular g/dL Hospital hemoglobin concentration [Mass/volume] by Automated count ID Date Data Source [id number] 12/21/2019 06:33:00 AM [facility] Value Range Interpretation Description Data Sup porting Code Source(s) Document(s ) Erythrocyte 30.4 pg [facility] corpuscular hemoglobin [Entitic mass] by Automated count ID Date Data Source [id number] 12/21/2019 06:33:00 AM [facility] Value Range Interpretation Description Data Sup porting Code Source(s) Document(s ) Erythrocyte 90.6 fL [facility] mean [facility] corpuscular volume [Entitic volume] by Automated count ID Date Data Source [id number] 12/21/2019 06:33[facility] Name Value Range Interpretation Description Data Sup porting Code Source(s) Document(s ) Hematocrit 35.5 % [facility] [Volume Hospital Fraction] of Blood by Automated count ID Date Data Source [id number] 12/21/2019 06:33:00 AM EDT [facility] Name Value Range Interpretation Description Data Sup porting Code Source(s) Document(s ) Hemoglobin 11.9 g/dL [facility] [Mass/volume] Hospital in Blood ID Date Data Source [id number] 12/21/2019 06[facility] Name Value Range Interpretation Description Data Sup porting Code Source(s) Document(s ) Erythrocytes 3.92 [facility] [#/volume] in 10*6/uL Hospital Blood by Automated count ID Date Data Source [id number] 12/21/2019 06:33[facility] Name Value Range Interpretation Description Data Sup porting Code Source(s) Document(s ) Leukocytes 7.1 [facility] [#/volume] in 10*3/uL Hospital Blood by Automated count ID Date Data Source [id number] 12/20/2019 06:38:00 AM [facility] Manager Social Services:MARQUITA RAMIREZ Name Value Range Interpretation Description Data Sup porting Code Source(s) Document(s ) Glucose 190 mg/dL [facility] [Mass/volume] Hospital in Capillary blood by Glucometer ID Date Data Source [id number] 12/19/2019 10:18:00 AM [facility] Name Value Range Interpretation Description Data Sup porting Code Source(s) Document(s ) Manual MANUAL [facility] differential Hospital performed [Presence] in Blood ID Date Data Source [id number] 12/19/2019 10:18:00 AM EDT [facility] Name Value Range Interpretation Code Description Data Bryanna rce(s) Supporting Document(s ) Cells 100 [facility] Total [#] in Blood ID Date Data Source [id number] 12/19/2019 10:18:00 AM EDT [facility] Value Range Interpretation Code Description Data Supporting Source(s) Document(s ) PLATELET NORMAL [facility] Hospital ID Date Data Source [id number] 12/19/2019 10:18:00 AM EDT [facility] Value Range Interpretation Code Description Data Bryanna rce(s) Supporting Document(s ) TARGET CELLS [facility] ID Date Data Source [id number] 12/19/2019 10:18:00 AM EDT [facility] Value Range Interpretation Code Description Data Supporting Source(s) Document(s ) POLYCHROMASIA [facility] ID Date Data Source [id number] 12/19/2019 10:18:00 AM EDT [facility] Value Range Interpretation Code Description Data Bryanna rce(s) Supporting Document(s ) HYPOCHROMIA [facility] ID Date Data Source [id number] 12/19/2019 10:18:00 AM EDT [facility] Value Range Interpretation Description Data Sup porting Code Source(s) Document(s ) POIKILOCYTOSIS [facility] ID Date Data Source [id number] 12/19/2019 [facility] Interpretation Code Description Data Bryanna rce(s) Supporting Document(s ) ANISOCYTOSIS [facility] ID Date Data Source [id number] 12/19/2019 10:18:00 AM EDT [facility] Name Value Range Interpretation Description Data Sup porting Code Source(s) Document(s ) Eosinophils 0.22 [facility] [#/volume] in 10*3/uL Hospital Blood by Manual count ID Date Data Source [id number] 12/19/2019 10:18:00 AM EDT [facility] Value Range Interpretation Description Data Sup porting Code Source(s) Document(s ) Monocytes 0.52 [facility] [#/volume] in 10*3/uL Hospital Blood by Manual count ID Date Data Source [id number] 12/19/2019 10:18:00 AM EDT [facility] Value Range Interpretation Description Data Sup porting Code Source(s) Document(s ) Lymphocytes 1.89 [facility] [#/volume] in 10*3/uL Hospital Blood by Manual count ID Date Data Source [id number] 12/19/2019 10:18:00 AM EDT [facility] Value Range Interpretation Description Data Sup porting Code Source(s) Document(s ) Neutrophils 1.07 [facility] [#/volume] in 10*3/uL Hospital Blood by Manual count ID Date Data Source [id number] 12/19/2019 10:18:00 AM EDT [facility] Value Range Interpretation Description Data Sup porting Code Source(s) Document(s ) Eosinophils/100 6 % [facility] leukocytes in Hospital Blood by Manual count ID Date Data Source [id number] 12/19/2019 10:18:00 AM EDT [facility] Value Range Interpretation Description Data Sup porting Code Source(s) Document(s ) Monocytes/100 14 % [facility] leukocytes in Hospital Blood by Manual count ID Date Data Source [id number] 12/19/2019 10:18:00 AM EDT [facility] Name Value Range Interpretation Description Data Sup porting Code Source(s) Document(s ) Lymphocytes/100 51 % [facility] leukocytes in Hospital Blood by Manual count ID Date Data Source [id number] 12/19/2019 10:18:00 AM EDT [facility] Name Value Range Interpretation Description Data Sup porting Code Source(s) Document(s ) Band form 1 % [facility] neutrophils/100 Hospital leukocytes in Blood ID Date Data Source [id number] 12/19/2019 10:18:00 AM EDT [facility] Name Value Range Interpretation Description Data Sup porting Code Source(s) Document(s ) Neutrophils/100 28 % [facility] leukocytes in Hospital Blood by Manual count ID Date Data Source [id number] 12/19/2019 10:18:00 AM EDT [facility] Value Range Interpretation Description Data Sup porting Code Source(s) Document(s ) Manual MANUAL [facility] differential Hospital performed [Presence] in Blood ID Date Data Source [id number] 12/19/2019 10:18:00 AM EDT [facility] Value Range Interpretation Code Description Data Bryanna rce(s) Supporting Document(s ) Cells 100 [facility] Counted [facility] Total [#] in Blood ID Date Data Source [id number] 12/19/2019 10:18:00 AM EDT [facility] Value Range Interpretation Code Description Data Supporting Source(s) Document(s ) PLATELET NORMAL [facility] Hospital ID Date Data Source [id number] 12/19/2019 10:18:00 AM EDT [facility] Name Value Range Interpretation Code Description Data Bryanna rce(s) Supporting Document(s ) TARGET CELLS OCC [facility] ID Date Data Source [id number] 12/19/2019 10:18:00 AM EDT [facility] Name Value Range Interpretation Code Description Data Supporting Source(s) Document(s ) POLYCHROMASIA [facility] ID Date Data Source [id number] 12/19/2019 [facility] Interpretation Code Description Data Bryanna rce(s) Supporting Document(s ) HYPOCHROMIA [facility] ID Date Data Source [id number] 12/19/2019 10:18:00 AM EDT [facility] Value Range Interpretation Description Data Sup porting Code Source(s) Document(s ) POIKILOCYTOSIS [facility] ID Date Data Source [id number] 12/19/2019 [facility] Interpret[facility] Code Description Data Bryanna rce(s) Supporting Document(s ) ANISOCYTOSIS [facility] ID Date Data Source [id number] 12/19/2019 [facility] Interpretation Description Data Sup porting Code Source(s) Document(s ) Eosinophils 0.22 [facility] [#/volume] in 10*3/uL Hospital Blood by Manual count ID Date Data Source [id number] 12/19/2019 10:18:00 AM EDT [facility] Value Range Interpretation Description Data Sup porting Code Source(s) Document(s ) Monocytes 0.52 [facility] [#/volume] in 10*3/uL Hospital Blood by Manual count ID Date Data Source [id number] 12/19/2019 [facility] Interpretation Description Data Sup porting Code Source(s) Document(s ) Lymphocytes 1.89 [facility] [#/volume] in 10*3/uL Hospital Blood by Manual count ID Date Data Source [id number] 12/19/2019 10:18:00 AM EDT [facility] Value Range Interpretation Description Data Sup porting Code Source(s) Document(s ) Neutrophils 1.07 [facility] [#/volume] in 10*3/uL Hospital Blood by Manual count ID Date Data Source [id number] 12/19/2019 10:18:00 AM EDT [facility] Value Range Interpretation Description Data Sup porting Code Source(s) Document(s ) Eosinophils/100 6 % [facility] leukocytes in Hospital Blood by Manual count ID Date Data Source [id number] 12/19/2019 10:18:00 AM EDT [facility] Value Range Interpretation Description Data Sup porting Code Source(s) Document(s ) Monocytes/100 14 % [facility] leukocytes in Hospital Blood by Manual count ID Date Data Source [id number] 12/19/2019 10:18:00 AM EDT [facility] Value Range Interpretation Description Data Sup porting Code Source(s) Document(s ) Lymphocytes/100 51 % [facility] leukocytes in Hospital Blood by Manual count ID Date Data Source [id number] 12/19/2019 10:18:00 AM EDT [facility] Value Range Interpretation Description Data Sup porting Code Source(s) Document(s ) Band form 1 % [facility] neutrophils/100 Hospital leukocytes in Blood ID Date Data Source [id number] 12/19/2019 10:18:00 AM EDT [facility] Value Range Interpretation Description Data Sup porting Code Source(s) Document(s ) Neutrophils/100 28 % [facility] leukocytes in Hospital Blood by Manual count ID Date Data Source [id number] 12/19/2019 10:18:00 AM EDT [facility] Name Value Range Interpretation Description Data Sup porting Code Source(s) Document(s ) Manual MANUAL [facility] differential Hospital performed [Presence] in Blood ID Date Data Source [id number] 12/19/2019 10:18:00 AM EDT [facility] Value Range Interpretation Code Description Data Bryanna rce(s) Supporting Document(s ) Cells 100 [facility] Hospital Total [#] in Blood ID Date Data Source [id number] 12/19/2019 10:18:00 AM EDT [facility] Value Range Interpretation Code Description Data Supporting Source(s) Document(s ) PLATELET NORMAL [facility] ID Date Data Source [id number] 12/19/2019 10:18:00 AM EDT [facility] Value Range Interpretation Code Description Data Bryanna rce(s) Supporting Document(s ) TARGET CELLS [facility] ID Date Data Source [id number] 12/19/2019 10:18:00 AM EDT [facility] Value Range Interpretation Code Description Data Supporting Source(s) Document(s ) POLYCHROMASIA [facility] ID Date Data Source [id number] 12/19/2019 10:18:00 AM EDT [facility] Value Range Interpretation Code Description Data Bryanna rce(s) Supporting Document(s ) HYPOCHROMIA [facility] ID Date Data Source [id number] 12/19/2019 10:18:00 AM EDT [facility] Value Range Interpretation Description Data Sup porting Code Source(s) Document(s ) POIKILOCYTOSIS [facility] ID Date Data Source [id number] 12/19/2019 10:18:00 AM EDT [facility] Value Range Interpretation Code Description Data Bryanna rce(s) Supporting Document(s ) ANISOCYTOSIS OCC [facility] ID Date Data Source [id number] 12/19/2019 10:18:00 AM EDT [facility] Value Range Interpretation Description Data Sup porting Code Source(s) Document(s ) Eosinophils 0.22 [facility] [#/volume] in 10*3/uL Hospital Blood by Manual count ID Date Data Source [id number] 12/19/2019 10:18:00 AM EDT [facility] Name Value Range Interpretation Description Data Sup porting Code Source(s) Document(s ) Monocytes 0.52 [facility] [#/volume] in 10*3/uL Hospital Blood by Manual count ID Date Data Source [id number] 12/19/2019 10:18:00 AM EDT [facility] Value Range Interpretation Description Data Sup porting Code Source(s) Document(s ) Lymphocytes 1.89 [facility] [#/volume] in 10*3/uL Hospital Blood by Manual count ID Date Data Source [id number] 12/19/2019 10:18:00 AM EDT [facility] Value Range Interpretation Description Data Sup porting Code Source(s) Document(s ) Neutrophils 1.07 [facility] [#/volume] in 10*3/uL Hospital Blood by Manual count ID Date Data Source [id number] 12/19/2019 10:18:00 AM EDT [facility] Value Range Interpretation Description Data Sup porting Code Source(s) Document(s ) Eosinophils/100 6 % [facility] leukocytes in Hospital Blood by Manual count ID Date Data Source [id number] 12/19/2019 10:18:00 AM EDT [facility] Value Range Interpretation Description Data Sup porting Code Source(s) Document(s ) Monocytes/100 14 % [facility] leukocytes in Hospital Blood by Manual count ID Date Data Source [id number] 12/19/2019 10:18:00 AM EDT [facility] Name Value Range Interpretation Description Data Sup porting Code Source(s) Document(s ) Lymphocytes/100 51 % [facility] leukocytes in Hospital Blood by Manual count ID Date Data Source [id number] 12/19/2019 10:18:00 AM EDT [facility] Name Value Range Interpretation Description Data Sup porting Code Source(s) Document(s ) Band form 1 % [facility] neutrophils/100 Hospital leukocytes in Blood ID Date Data Source [id number] 12/19/2019 10:18:00 AM EDT [facility] Value Range Interpretation Description Data Sup porting Code Source(s) Document(s ) Neutrophils/100 28 % [facility] leukocytes in Hospital Blood by Manual count ID Date Data Source [id number] 12/19/2019 10:18:00 AM EDT [facility] Value Range Interpretation Description Data Sup porting Code Source(s) Document(s ) Manual MANUAL [facility] differential [facility] performed [Presence] in Blood ID Date Data Source [id number] 12/19/2019 10:18:00 AM EDT [facility] Value Range Interpretation Code Description Data Bryanna rce(s) Supporting Document(s ) Cells 100 [facility] Total [#] in Blood ID Date Data Source [id number] 12/19/2019 10:18:00 AM EDT [facility] Value Range Interpretation Code Description Data Supporting Source(s) Document(s ) PLATELET NORMAL [facility] ID Date Data Source [id number] 12/19/2019 10:18:00 AM EDT [facility] Name Value Range Interpretation Code Description Data Bryanna rce(s) Supporting Document(s ) TARGET CELLS OCC [facility] ID Date Data Source [id number] 12/19/2019 10:18:00 AM EDT [facility] Value Range Interpretation Code Description Data Supporting Source(s) Document(s ) POLYCHROMASIA OCC [facility] ID Date Data Source [id number] 12/19/2019 10:18:00 AM EDT [facility] Value Range Interpretation Code Description Data Bryanna rce(s) Supporting Document(s ) HYPOCHROMIA [facility] ID Date Data Source [id number] 12/19/2019 10:18:00 AM EDT [facility] Value Range Interpretation Description Data Sup porting Code Source(s) Document(s ) POIKILOCYTOSIS [facility] ID Date Data Source [id number] 12/19/2019 [facility] Code Description Data Bryanna rce(s) Supporting Document(s ) ANISOCYTOSIS [facility] ID Date Data Source [id number] 12/19/2019 [facility] Interpretation Description Data Sup porting Code Source(s) Document(s ) Eosinophils 0.22 [facility] [#/volume] in 10*3/uL Hospital Blood by Manual count ID Date Data Source [id number] 12/19/2019 10:18:00 AM EDT [facility] Value Range Interpretation Description Data Sup porting Code Source(s) Document(s ) Monocytes 0.52 [facility] [#/volume] in 10*3/uL Hospital Blood by Manual count ID Date Data Source [id number] 12/19/2019 10:18:00 AM EDT [facility] Name Value Range Interpretation Description Data Sup porting Code Source(s) Document(s ) Lymphocytes 1.89 [facility] [#/volume] in 10*3/uL Hospital Blood by Manual count ID Date Data Source [id number] 12/19/2019 10:18:00 AM EDT [facility] Value Range Interpretation Description Data Sup porting Code Source(s) Document(s ) Neutrophils 1.07 [facility] [#/volume] in 10*3/uL Hospital Blood by Manual count ID Date Data Source [id number] 12/19/2019 10:18:00 AM EDT [facility] Value Range Interpretation Description Data Sup porting Code Source(s) Document(s ) Eosinophils/100 6 % [facility] leukocytes in Hospital Blood by Manual count ID Date Data Source [id number] 12/19/2019 10:18:00 AM EDT [facility] Value Range Interpretation Description Data Sup porting Code Source(s) Document(s ) Monocytes/100 14 % [facility] leukocytes in Hospital Blood by Manual count ID Date Data Source [id number] 12/19/2019 10:18:00 AM EDT [facility] Value Range Interpretation Description Data Sup porting Code Source(s) Document(s ) Lymphocytes/100 51 % [facility] leukocytes in Hospital Blood by Manual count ID Date Data Source [id number] 12/19/2019 10:18:00 AM EDT [facility] Value Range Interpretation Description Data Sup porting Code Source(s) Document(s ) Band form 1 % [facility] neutrophils/100 Hospital leukocytes in Blood ID Date Data Source [id number] 12/19/2019 10:18:00 AM EDT [facility] Value Range Interpretation Description Data Sup porting Code Source(s) Document(s ) Neutrophils/100 28 % [facility] leukocytes in Hospital Blood by Manual count ID Date Data Source [id number] 12/19/2019 [facility] Description Data Sup porting Code Source(s) Document(s ) Platelet mean 12.2 fL [facility] volume Hospital [Entitic volume] in Blood by Automated count ID Date Data Source [id number] 12/19/2019 [facility] Interpretation Description Data Sup porting Code Source(s) Document(s ) Platelets 164 [facility] [#/volume] in 10*3/uL Hospital Blood by Automated count ID Date Data Source [id number] 12/19/2019 10:18:00 AM [facility] Value Range Interpretation Description Data Sup porting Code Source(s) Document(s ) Erythrocyte 14.1 % [facility] distribution Hospital width [Ratio] by Automated count ID Date Data Source [id number] 12/19/2019 10:18:00 AM [facility] Value Range Interpretation Description Data Sup porting Code Source(s) Document(s ) Erythrocyte mean 34.9 [facility] corpuscular g/dL Hospital hemoglobin concentration [Mass/volume] by Automated count ID Date Data Source [id number] 12/19/2019 10:18:00 AM [facility] Value Range Interpretation Description Data Sup porting Code Source(s) Document(s ) [facility]Entitic mass[facility] by Automated count ID Date Data Source [id number] 12/19/2019 10:18:00 AM [facility] Value Range Interpretation Description Data Sup porting Code Source(s) Document(s ) Erythrocyte 87.1 fL [facility] mean Hospital corpuscular volume [Entitic volume] by Automated count ID Date Data Source [id number] 12/19/2019 10:18:00 AM EDT [facility] Name Value Range Interpretation Description Data Sup porting Code Source(s) Document(s ) Hematocrit 32.4 % [facility] [Volume Hospital Fraction] of Blood by Automated count ID Date Data Source [id number] 12/19/2019 10:18:00 AM EDT [facility] Name Value Range Interpretation Description Data Sup porting Code Source(s) Document(s ) Hemoglobin 11.3 g/dL [facility] [Mass/volume] Hospital in Blood ID Date Data Source [id number] 12/19/2019 10:18:00 AM EDT [facility] Value Range Interpretation Description Data Sup porting Code Source(s) Document(s ) Erythrocytes 3.72 [facility] [#/volume] in 10*6/uL Hospital Blood by Automated count ID Date Data Source [id number] 12/19/2019 10:18:00 AM EDT [facility] Value Range Interpretation Description Data Sup porting Code Source(s) Document(s ) Leukocytes 3.7 [facility] [#/volume] in 10*3/uL Hospital Blood by Automated count ID Date Data Source [id number] 12/19/2019 10:18:00 AM EDT [facility] Name Value Range Interpretation Description Data Sup porting Code Source(s) Document(s ) Manual MANUAL [facility] differential [facility] performed [Presence] in Blood ID Date Data Source [id number] 12/19/2019 10:18:00 AM EDT [facility] Value Range Interpretation Code Description Data Bryanna rce(s) Supporting Document(s ) Cells 100 [facility]ed [facility] Total [#] in Blood ID Date Data Source [id number] 12/19/2019 10:18:00 AM EDT [facility] Value Range Interpretation Code Description Data Supporting Source(s) Document(s ) PLATELET NORMAL [facility] ID Date Data Source [id number] 12/19/2019 10:18:00 AM EDT [facility] Value Range Interpretation Code Description Data Bryanna rce(s) Supporting Document(s ) TARGET CELLS [facility] ID Date Data Source [id number] 12/19/2019 10:18:00 AM EDT [facility] Value Range Interpretation Code Description Data Supporting Source(s) Document(s ) POLYCHROMASIA [facility] ID Date Data Source [id number] 12/19/2019 10:18:00 AM EDT [facility] Value Range Interpretation Code Description Data Bryanna rce(s) Supporting Document(s ) HYPOCHROMIA [facility] ID Date Data Source [id number] 12/19/2019 10:18:00 AM EDT [facility] Value Range Interpretation Description Data Sup porting Code Source(s) Document(s ) POIKILOCYTOSIS [facility] ID Date Data Source [id number] 12/19/2019 10:18:00 AM EDT [facility] Value Range Interpretation Code Description Data Bryanna rce(s) Supporting Document(s ) ANISOCYTOSIS [facility] ID Date Data Source [id number] 12/19/2019 [facility] Description Data Sup porting Code Source(s) Document(s ) Eosinophils 0.22 [facility] [#/volume] in 10*3/uL Hospital Blood by Manual count ID Date Data Source [id number] 12/19/2019 10:18:00 AM EDT [facility] Name Value Range Interpretation Description Data Sup porting Code Source(s) Document(s ) Monocytes 0.52 [facility] [#/volume] in 10*3/uL Hospital Blood by Manual count ID Date Data Source [id number] 12/19/2019 10:18:00 AM EDT [facility] Value Range Interpretation Description Data Sup porting Code Source(s) Document(s ) Lymphocytes 1.89 [facility] [#/volume] in 10*3/uL Hospital Blood by Manual count ID Date Data Source [id number] 12/19/2019 10:18:00 AM EDT [facility] Value Range Interpretation Description Data Sup porting Code Source(s) Document(s ) Neutrophils 1.07 [facility] [#/volume] in 10*3/uL Hospital Blood by Manual count ID Date Data Source [id number] 12/19/2019 10:18:00 AM EDT [facility] Value Range Interpretation Description Data Sup porting Code Source(s) Document(s ) Eosinophils/100 6 % [facility] leukocytes in Hospital Blood by Manual count ID Date Data Source [id number] 12/19/2019 10:18:00 AM EDT [facility] Value Range Interpretation Description Data Sup porting Code Source(s) Document(s ) Monocytes/100 14 % [facility] leukocytes in Hospital Blood by Manual count ID Date Data Source [id number] 12/19/2019 10:18:00 AM EDT [facility] Value Range Interpretation Description Data Sup porting Code Source(s) Document(s ) Lymphocytes/100 51 % [facility] leukocytes in Hospital Blood by Manual count ID Date Data Source [id number] 12/19/2019 10:18:00 AM EDT [facility] Value Range Interpretation Description Data Sup porting Code Source(s) Document(s ) Band form 1 % [facility] neutrophils/100 Hospital leukocytes in Blood ID Date Data Source [id number] 12/19/2019 10:18:00 AM [facility] Name Value Range Interpretation Description Data Sup porting Code Source(s) Document(s ) Neutrophils/100 28 % [facility] leukocytes in Hospital Blood by Manual count ID Date Data Source [id number] 12/19/2019 10:12:00 AM [facility] UNITS ARE IN ml/min/1.73m2.IF PATIENT IS -CYMRAES, MULTIPLY REPORTED RESULT BY 1.21. Name Value Range Interpretation Description Data Sup porting Code Source(s) Document(s ) Glomerular > 60 [facility] filtration mL/min Hospital rate/1.73 sq M.predicted [Volume Rate/Area] in Serum or Plasma by Creatinine-bas ed formula (MDRD) ID Date Data Source [id number] 12/19/2019 10:12:00 AM [facility] UNITS ARE IN ml/min/1.73m2.IF PATIENT IS -CYMRAES, MULTIPLY REPORTED RESULT BY 1.21. Name Value Range Interpretation Description Data Sup porting Code Source(s) Document(s ) Glomerular > 60 [facility] filtration mL/min Hospital rate/1.73 sq M.predicted [Volume Rate/Area] in Serum or Plasma by Creatinine-bas ed formula (MDRD) ID Date Data Source [id number] 12/19/2019 10:12:00 AM [facility] Name Value Range Interpretation Description Data Sup porting Code Source(s) Document(s ) Aspartate 46 U/L White aminotransferase [place] [Enzymatic Hospital activity/volume] in Serum or Plasma ID Date Data Source [id number] 12/19/2019 10:12:00 AM [facility] Name Value Range Interpretation Description Data Sup porting Code Source(s) Document(s ) Alanine 24 U/L White aminotransferase [place] [Enzymatic Hospital activity/volume] in Serum or Plasma ID Date Data Source [id number] 12/19/2019 10:12:00 AM EDT [facility] Name Value Range Interpretation Description Data Sup porting Code Source(s) Document(s ) Alkaline 67 U/L [facility] phosphatase Hospital [Enzymatic activity/volume ] in Serum or Plasma ID Date Data Source [id number] 12/19/2019 10:12:00 AM EDT [facility] Name Value Range Interpretation Description Data Sup porting Code Source(s) Document(s ) Bilirubin.t 1.2 mg/dL [facility] [Mass/volum e] in Serum or Plasma ID Date Data Source [id number] 12/19/2019 [facility] Code Description Data Bryanna rce(s) Supporting Document(s ) Albumin/Glob 1.0 [facility] Ratio] in Serum or Plasma ID Date Data Source [id number] 12/19/2019 [facility] Description Data Sup porting Code Source(s) Document(s ) Albumin 2.8 g/dL [facility] [Mass/volume Hospital ] in Serum or Plasma ID Date Data Source [id number] 12[facility]19[facility]2019 [facility]ation Description Data Sup porting Code Source(s) Document(s ) Protein 5.5 g/dL [facility] [Mass/volume Hospital ] in Serum or Plasma ID Date Data Source [id number] 12/19/2019 [facility] Interpretation Description Data Sup porting Code Source(s) Document(s ) Calcium 8.7 mg/dL [facility] [Mass/volume Hospital ] in Serum or Plasma ID Date Data Source [id number] 12/19/2019 10:12:00 AM [facility] UNITS ARE IN ml/min/1.73m2.IF PATIENT IS -CYMRAES, MULTIPLY REPORTED RESULT BY 1.21. Name Value Range Interpretation Description Data Sup porting Code Source(s) Document(s ) Glomerular > 60 [facility] filtration mL/min Hospital rate/1.73 sq M.predicted [Volume Rate/Area] in Serum or Plasma by Creatinine-bas ed formula (MDRD) ID Date Data Source [id number] 12/19/2019 [facility] Interpretation Code Description Data Bryanna rce(s) Supporting Document(s ) Urea 12.9 [facility] nitrogen/Cre Hospital atinine [Mass Ratio] in Serum or Plasma ID Date Data Source [id number] 12/19/2019 10:12:00 AM [facility] Name Value Range Interpretation Description Data Sup porting Code Source(s) Document(s ) Creatinine 0.7 mg/dL [facility] [Mass/volume] Hospital in Serum or Plasma ID Date Data Source [id number] 12/19/2019 10:12:00 AM [facility] Name Value Range Interpretation Description Data Sup porting Code Source(s) Document(s ) Urea nitrogen 9 mg/dL [facility] [Mass/volume] Hospital in Serum or Plasma ID Date Data Source [id number] 12/19/2019 10:12:00 AM T [facility] Value Range Interpretation Code Description Data Bryanna rce(s) Supporting Document(s ) Anion gap in 5 [facility] Serum or [facility] Plasma ID Date Data Source [id number] 12/19/2019 10:12:00 AM EDT [facility] Name Value Range Interpretation Description Data Sup porting Code Source(s) Document(s ) Carbon 32 mmol/L [facility] dioxide, Hospital total [Moles/volu me] in Serum or Plasma ID Date Data Source [id number] 12/19/2019 10:12:00 AM EDT [facility] Name Value Range Interpretation Description Data Sup porting Code Source(s) Document(s ) Chloride 106 [place] [facility]Moles[facility]volum mmol/L Hospital e] in Serum or Plasma ID Date Data Source [id number] 12/19/2019 10:12:00 AM EDT [facility] Name Value Range Interpretation Description Data Sup porting Code Source(s) Document(s ) Potassium 3.7 [place] [Moles/volume mmol/L Hospital ] in Serum or Plasma ID Date Data Source [id number] 12/19/2019 10:12:00 AM EDT [facility] Name Value Range Interpretation Description Data Sup porting Code Source(s) Document(s ) Sodium 139 mmol/L [facility]u [facility] me] in Serum or Plasma ID Date Data Source [id number] 12/19/2019 10:12:00 AM EDT [facility] Name Value Range Interpretation Description Data Sup porting Code Source(s) Document(s ) Glucose 294 mg/dL [facility] [Mass/volume Hospital ] in Serum or Plasma ID Date Data Source [id number] 12/19/2019 10:12:00 AM [facility] UNITS ARE IN ml/min/1.73m2.IF PATIENT IS -CYMRAES, MULTIPLY REPORTED RESULT BY 1.21. Name Value Range Interpretation Description Data Sup porting Code Source(s) Document(s ) Glomerular > 60 [facility] filtration mL/min Hospital rate/1.73 sq M.predicted [Volume Rate/Area] in Serum or Plasma by Creatinine-bas ed formula (MDRD) ID Date Data Source [id number] 12/18/2019 12:28:00 PM EDT [facility] Value Range Interpretation Description Data Sup porting Code Source(s) Document(s ) GLUCOSE RN Notified [facility] Hospital ID Date Data Source [id number] 12/18/2019 09:16:00 AM EDT [facility] Value Range Interpretation Description Data Sup porting Code Source(s) Document(s ) Variant 1 % [facility] lymphocytes/100 Hospital leukocytes in Blood by Manual count ID Date Data Source [id number] 12/18/2019 09:16:00 AM EDT [facility] Value Range Interpretation Description Data Sup porting Code Source(s) Document(s ) Variant 1 % [facility] lymphocytes/100 Hospital leukocytes in Blood by Manual count ID Date Data Source [id number] 12/18/2019 09:16:00 AM EDT [facility] Value Range Interpretation Description Data Sup porting Code Source(s) Document(s ) Variant 1 % [facility] lymphocytes/100 Hospital leukocytes in Blood by Manual count ID Date Data Source [id number] 12/18/2019 09:16:00 AM EDT [facility] Value Range Interpretation Description Data Sup porting Code Source(s) Document(s ) Variant 1 % [facility] lymphocytes/100 Hospital leukocytes in Blood by Manual count ID Date Data Source [id number] 12/18/2019 09:16:00 AM EDT [facility] Value Range Interpretation Description Data Sup porting Code Source(s) Document(s ) Variant 1 % [facility] lymphocytes/100 Hospital leukocytes in Blood by Manual count ID Date Data Source [id number] 12/17/2019 06:32:00 AM EDT [facility] Value Range Interpretation Description Data Sup porting Code Source(s) Document(s ) Phosphate 2.3 mg/dL [facility] [Mass/volume] Hospital in Serum or Plasma ID Date Data Source [id number] 12/17/2019 06:32:00 AM [facility] Name Value Range Interpretation Description Data Sup porting Code Source(s) Document(s ) Phosphate 2.3 mg/dL [facility] [Mass/volume] Hospital in Serum or Plasma ID Date Data Source [id number] [facility] Interpretation Description Data Sup porting Code Source(s) Document(s ) Magnesium 1.7 mg/dL [facility] [place] [Mass/volume[facility] in Serum or Plasma ID Date Data Source [id number] 12/17/2019 06:32:00 AM [facility] Name Value Range Interpretation Description Data Sup porting Code Source(s) Document(s ) Phosphate 2.3 mg/dL [facility] [Mass/volume[facility] in Serum or Plasma ID Date Data Source [id number] 12/17/2019 06:32:00 AM [facility] Name Value Range Interpretation Description Data Sup porting Code Source(s) Document(s ) Magnesium 1.7 mg/dL [facility] [Mass/volume[facility] in Serum or Plasma ID Date Data Source [id number] 12/16/2019 04:20:00 PM [facility] CUT-OFF >= 25 NG/ML.THE FINDINGS OF [...] rce(s) Supporting Document(s ) PCP (UR) NEGATIVE [facility] ID Date Data Source [id number] 12/16/2019 04:20:00 PM EDT [facility] CUT-OFF >= 50 NG/ML. Name Value Range Interpretation Code Description Data Bryanna rce(s) Supporting Document(s ) THC (UR) NEGATIVE [facility] ID Date Data Source [id number] 12/16/2019 04:20:00 PM EDT [facility] CUT-OFF >= 300 NG/ML. Name Value Range Interpretation Description Data Sup porting Code Source(s) Document(s ) OPIATES (UR) NEGATIVE [facility] ID Date Data Source [id number] 12/16/2019 04:20:00 PM EDT [facility] CUT-OFF >= 300 NG/ML. Name Value Range Interpretation Description Data Sup porting Code Source(s) Document(s ) COCAINE (UR) POSITIVE [facility] ID Date Data Source [id number] 12/16/2019 04:20:00 PM EDT [facility] CUT-OFF >= 200 NG/ML. Name Value Range Interpretation Description Data Sup porting Code Source(s) Document(s ) BENZODIAZEPINES NEGATIVE [place] (UR) [facility] ID Date Data Source [id number] 12/16/2019 04:20:00 PM EDT [facility] CUT-OFF >= 200 NG/ML. Name Value Range Interpretation Description Data Sup porting Code Source(s) Document(s ) BARBITURATES NEGATIVE [facility] (UR) Hospital ID Date Data Source [id number] 12/16/2019 04:20:00 PM EDT [facility] CUT-OFF >= 1000 NG/ML. Name Value Range Interpretation Description Data Sup porting Code Source(s) Document(s ) AMPHETAMINES NEGATIVE [facility] (UR) Hospital ID Date Data Source [id number] 12/16/2019 01:55:00 PM [facility] THERAPEUTIC RANGES:UNFRACTIONATED HEPARI N THERAPY: 60-90 SECONDSARGATROBAN THERAPY: 49-99 SECONDS Name Value Range Interpretation Description Data Sup porting Code Source(s) Document(s ) aPTT in 33.9 s [place] Platelet poor [facility] plasma by Coagulation assay ID Date Data Source [id number] 12/16/2019 01:55:00 PM [facility] THERAPEUTIC RANGE FOR STANDARD ORALANTIC OAGULANT THERAPY: 2.0-3.0THERAPEUTIC RANGE FOR HIGH DOSE ORALANTICOAGULANT THERAPY (MECHANICAL HEARTVALVE REPLACEMENT): 2.5-3.5 Name Value Range Interpretation Description Data Sup porting Code Source(s) Document(s ) INR in Platelet 1.0 [facility] poor plasma by [facility] Coagulation assay ID Date Data Source [id number] 12/16[facility]2019 [facility] Value Range Interpretation Description Data Sup porting Code Source(s) Document(s ) PT panel - 11.8 s [facility] Platelet poor [facility] plasma by Coagulation assay ID Date Data Source [id number] 12/16/2019 03:13:00 AM [facility] Name Value Range Interpretation Description Data Sup porting Code Source(s) Document(s ) Mucus PRESENT [facility] [Presence] in Hospital Urine sediment by Light microscopy ID Date Data Source [id number] 12/16/2019 03:13:00 AM [facility] Name Value Range Interpretation Description Data Sup porting Code Source(s) Document(s ) Epithelial 3+ [facility] cells.[facility] [#/area] in Urine sediment by Microscopy high power field ID Date Data Source [id number] 12/16/2019 03:13:00 AM [facility] Name Value Range Interpretation Description Data Sup porting Code Source(s) Document(s ) Bacteria OCCASIONAL [facility] [#/area] in Hospital Urine sediment by Microscopy high power field ID Date Data Source [id number] 12/16/2019 03:13:00 AM EDT [facility] Name Value Range Interpretation Description Data Sup porting Code Source(s) Document(s ) Erythrocytes 0-3 [facility] [#/area] in /[HPF] Hospital Urine sediment by Microscopy high power field ID Date Data Source [id number] 12/16/2019 03:13:00 AM EDT [facility] Name Value Range Interpretation Description Data Sup porting Code Source(s) Document(s ) Leukocytes 10-20 [facility] [place] [#/area] in /[HPF] Hospital Urine sediment by Microscopy high power field ID Date Data Source [id number] 12/16/2019 03:13:00 AM EDT [facility] Name Value Range Interpretation Description Data Sup porting Code Source(s) Document(s ) Mucus PRESENT [facility] [Presence] in Hospital Urine sediment by Light microscopy ID Date Data Source [id number] 12/16/2019 03:13:00 AM EDT [facility] Name Value Range Interpretation Description Data Sup porting Code Source(s) Document(s ) Epithelial 3+ [facility] [#/area] in Urine sediment by Microscopy high power field ID Date Data Source [id number] 12/16/2019 03:13:00 AM EDT [facility] Name Value Range Interpretation Description Data Sup porting Code Source(s) Document(s ) Bacteria OCCASIONAL [facility] [#/area] in Hospital Urine sediment by Microscopy high power field ID Date Data Source [id number] 12/16/2019 03:13:00 AM EDT [facility] Name Value Range Interpretation Description Data Sup porting Code Source(s) Document(s ) Erythrocytes 0-3 [facility] [#/area] in /[HPF] Hospital Urine sediment by Microscopy high power field ID Date Data Source [id number] 12/16/2019 03:13:00 AM EDT [facility] Name Value Range Interpretation Description Data Sup porting Code Source(s) Document(s ) Leukocytes 10-20 [facility] [#/area] in /[HPF] Hospital Urine sediment by Microscopy high power field ID Date Data Source [id number] 12/16/2019 [facility] Value Range Interpretation Description Data Sup porting Code Source(s) Document(s ) Mucus PRESENT [facility] [Presence] in Hospital Urine sediment by Light microscopy ID Date Data Source [id number] 12/[facility] Description Data Sup porting Code Source(s) Document(s ) Epithelial 3+ [facility] [#/area] in Urine sediment by Microscopy high power field ID Date Data Source [id number] 12/16/2019 [facility]:13[facility] Value Range Interpretation Description Data Sup porting Code Source(s) Document(s ) Bacteria OCCASIONAL [facility] [#/area] in Hospital Urine sediment by Microscopy high power field ID Date Data Source [id number] 12/16/2019 [facility]:13[facility] Value Range Interpretation Description Data Sup porting Code Source(s) Document(s ) Erythrocytes 0-3 [facility] [#/area] in /[HPF] Hospital Urine sediment by Microscopy high power field ID Date Data Source [id number] 12/16/2019 03:13[facility] Value Range Interpretation Description Data Sup porting Code Source(s) Document(s ) Leukocytes 10-20 [facility] [#/area] in /[HPF] Hospital Urine sediment by Microscopy high power field ID Date Data Source [id number] 12/16/2019 03:13[facility] Name Value Range Interpretation Description Data Sup porting Code Source(s) Document(s ) Mucus PRESENT [facility] [Presence] in Hospital Urine sediment by Light microscopy ID Date Data Source [id number] 12/16/2019 03:13:00 AM EDT [facility] Name Value Range Interpretation Description Data Sup porting Code Source(s) Document(s ) Epithelial 3+ [facility] [#/area] in Urine sediment by Microscopy high power field ID Date Data Source [id number] 12/16/2019 03:13:00 AM EDT [facility] Name Value Range Interpretation Description Data Sup porting Code Source(s) Document(s ) Bacteria OCCASIONAL [facility] [#/area] in Hospital Urine sediment by Microscopy high power field ID Date Data Source [id number] 12/16/2019 03:13:00 AM EDT [facility] Name Value Range Interpretation Description Data Sup porting Code Source(s) Document(s ) Erythrocytes 0-3 [facility] [#/area] in /[HPF] Hospital Urine sediment by Microscopy high power field ID Date Data Source [id number] 12/16/2019 03:13:00 AM EDT [facility] Name Value Range Interpretation Description Data Sup porting Code Source(s) Document(s ) Leukocytes 10-20 [facility] [#/area] in /[HPF] Hospital Urine sediment by Microscopy high power field ID Date Data Source [id number] 12/16/2019 03:13:00 AM [facility] Name Value Range Interpretation Code Description Data Supporting Source(s) Document(s ) Leukocyte TRACE [facility] esterase [facility] [Presence] in Urine by Test strip ID Date Data Source [id number] 12/16/2019 03:13:00 AM EDT [facility] Name Value Range Interpretation Description Data Sup porting Code Source(s) Document(s ) URINE NEGATIVE [facility] NITRITES Hospital ID Date Data Source [id number] 12/16/2019 03:13:00 AM EDT [facility] Name Value Range Interpretation Description Data Sup porting Code Source(s) Document(s ) Erythrocytes NEGATIVE [facility] [#/volume] in Hospital Urine by Test strip ID Date Data Source [id number] 12/16/2019 03:13:00 AM EDT [facility] Value Range Interpretation Code Description Data Bryanna rce(s) Supporting Document(s ) Bilirubin. NEGATIVE [facility] total [facility] [Presence] in Urine by Test strip ID Date Data Source [id number] 12/16/2019 [facility] Description Data Sup porting Code Source(s) Document(s ) Urobilinogen 0.2 [facility] [Units/volume] mg/dL Hospital in Urine by Test strip ID Date Data Source [id number] 12/16/2019 [facility] Interpretation Code Description Data Bryanna rce(s) Supporting Document(s ) Ketones 3+ [facility] [Mass/volume Hospital ] in Urine by Test strip ID Date Data Source [id number] 12/16/2019 03:13:00 AM EDT [facility] Value Range Interpretation Code Description Data Bryanna rce(s) Supporting Document(s ) Glucose 3+ [facility] [Mass/volume [facility] ] in Urine by Test strip ID Date Data Source [id number] 12/16/2019 03:13:00 AM EDT [facility] Name Value Range Interpretation Description Data Sup porting Code Source(s) Document(s ) Protein NEGATIVE [facility] [Presence] [facility] in Urine by Test strip ID Date Data Source [id number] 12/16/2019 03:13:00 AM EDT [facility] Name Value Range Interpretation Code Description Data Bryanna rce(s) Supporting Document(s ) pH of Urine 5.0 [facility] by Test Hospital strip ID Date Data Source [id number] 12/16/2019 03:13:00 AM EDT [facility] Name Value Range Interpretation Code Description Data Supporting Source(s) Document(s ) Specific 1.024 [facility] gravity of Hospital Urine by Test strip ID Date Data Source [id number] 12/16/2019 [facility] Value Range Interpretation Description Data Sup porting Code Source(s) Document(s ) Clarity in Urine CLEAR [facility] by Refractometry [facility] automated ID Date Data Source [id number] 12/16/2019 [facility]:13[facility] Name Value Range Interpretation Code Description Data Bryanna rce(s) Supporting Document(s ) Color of YELLOW [facility] Urine Hospital ID Date Data Source [id number] 12/16/2019 03:13[facility] Value Range Interpretation Description Data Sup porting Code Source(s) Document(s ) Mucus PRESENT [facility] [Presence] in Hospital Urine sediment by Light microscopy ID Date Data Source [id number] 12/16/2019 03:13[facility] Value Range Interpretation Description Data Sup porting Code Source(s) Document(s ) Epithelial 3+ [facility] cells.squamous [facility] [#/area] in Urine sediment by Microscopy high power field ID Date Data Source [id number] 12/16/2019 03:13:00 AM EDT [facility] Name Value Range Interpretation Description Data Sup porting Code Source(s) Document(s ) Bacteria OCCASIONAL [facility] [#/area] in Hospital Urine sediment by Microscopy high power field ID Date Data Source [id number] 12/16/2019 03:13:00 AM EDT [facility] Name Value Range Interpretation Description Data Sup porting Code Source(s) Document(s ) Erythrocytes 0-3 [facility] [#/area] in /[HPF] Hospital Urine sediment by Microscopy high power field ID Date Data Source [id number] 12/16/2019 03:13:00 AM EDT [facility] Value Range Interpretation Description Data Sup porting Code Source(s) Document(s ) Leukocytes 10-20 [facility] [#/area] in /[HPF] Hospital Urine sediment by Microscopy high power field ID Date Data Source [id number] 12/15/2019 10:40:00 PM EDT [facility] Value Range Interpretation Description Data Sup porting Code Source(s) Document(s ) GLUCOSE Notified [address] ID Date Data Source [id number] 12/15/2019 08:15:00 PM EDT [facility] Value Range Interpretation Code Description Data Bryanna rce(s) Supporting Document(s ) ABG MODE Room Air [facility] ID Date Data Source [id number] 12/15/2019 08:15:00 PM EDT [facility] Value Range Interpretation Code Description Data Supporting Source(s) Document(s ) ABG SITE Left Radial [facility] ID Date Data Source [id number] 12/15/2019 08:15:00 PM EDT [facility] Value Range Interpretation Code Description Data Supporting Source(s) Document(s ) ABG SOURCE ARTERIAL [facility] ID Date Data Source [id number] 12/15/2019 08:15:00 PM EDT [facility] Name Value Range Interpretation Code Description Data Bryanna rce(s) Supporting Document(s ) READ BACK Yes/MD [facility] ID Date Data Source [id number] 12/15/2019 08:15:00 PM EDT [facility] Name Value Range Interpretation Code Description Data Bryanna rce(s) Supporting Document(s ) NOTE WHO DR LITTLEJOHN [facility] ID Date Data Source [id number] 12/15/2019 08:15:00 PM EDT [facility] Value Range Interpretation Description Data Sup porting Code Source(s) Document(s ) IONIZED 1.53 [facility] CALCIUM mmol/L Hospital ID Date Data Source [id number] 12/15/2019 08:15:00 PM EDT [facility] Value Range Interpretation Code Description Data Supporting Source(s) Document(s ) METHEMOGLOBIN 0.8 % [facility] ID Date Data Source [id number] 12/15/2019 08:15:00 PM EDT [facility] Value Range Interpretation Description Data Sup porting Code Source(s) Document(s ) CARBOXYHEMOGLOBIN 0.6 % [facility] ID Date Data Source [id number] 12/15/2019 08:15:00 PM EDT [facility] Value Range Interpretation Code Description Data Bryanna rce(s) Supporting Document(s ) ABG TEMP 98.0 [facility] ID Date Data Source [id number] 12/15/2019 08:15:00 PM EDT [facility] Value Range Interpretation Code Description Data Bryanna rce(s) Supporting Document(s ) FIO2 21 % [facility] ID Date Data Source [id number] 12/15/2019 08:15:00 PM EDT [facility] Value Range Interpretation Code Description Data Rbyanna rce(s) Supporting Document(s ) ABG BE -13.7 [facility] mmol/L Hospital ID Date Data Source [id number] 12/15/2019 08:15:00 PM EDT [facility] Value Range Interpretation Code Description Data Bryanna rce(s) Supporting Document(s ) ABG O2SAT 96 % [facility] ID Date Data Source [id number] 12/15/2019 08:15:00 PM EDT [facility] Value Range Interpretation Code Description Data Bryanna rce(s) Supporting Document(s ) ABG HCO3 11 mmol/L [facility] ID Date Data Source [id number] 12/15/2019 08:15:00 PM EDT [facility] Value Range Interpretation Code Description Data Bryanna rce(s) Supporting Document(s ) ABG PO2 87 mm[Hg] [facility] ID Date Data Source [id number] 12/15/2019 08:15:00 PM EDT [facility] Value Range Interpretation Code Description Data Bryanna rce(s) Supporting Document(s ) ABG PCO2 25 mm[Hg] [facility] ID Date Data Source [id number] 12/15/2019 08:15:00 PM EDT [facility] Value Range Interpretation Code Description Data Bryanna rce(s) Supporting Document(s ) ABG PH 7.28 [facility] ID Date Data Source [id number] 12/15/2019 08:15:00 PM EDT [facility] Value Range Interpretation Code Description Data Bryanna rce(s) Supporting Document(s ) ABG MODE Room Air [facility] ID Date Data Source [id number] 12/15/2019 08:15:00 PM EDT [facility] Name Value Range Interpretation Code Description Data Supporting Source(s) Document(s ) ABG SITE Left Radial [facility] ID Date Data Source [id number] 12/15/2019 08:15:00 PM EDT [facility] Name Value Range Interpretation Code Description Data Supporting Source(s) Document(s ) ABG SOURCE ARTERIAL [facility] ID Date Data Source [id number] 12/15/2019 08:15:00 PM EDT [facility] Name Value Range Interpretation Code Description Data Bryanna rce(s) Supporting Document(s ) JORGE TEST POSITIVE [facility] ID Date Data Source [id number] 12/15/2019 08:15:00 PM EDT [facility] Name Value Range Interpretation Code Description Data Bryanna rce(s) Supporting Document(s ) ABG MODE Room Air [facility] ID Date Data Source [id number] 12/15/2019 08:15:00 PM EDT [facility] Name Value Range Interpretation Code Description Data Supporting Source(s) Document(s ) ABG SITE Left [facility] ID Date Data Source [id number] 12/15/2019 08:15:00 PM EDT [facility] Name Value Range Interpretation Code Description Data Supporting Source(s) Document(s ) ABG SOURCE ARTERIAL [facility] ID Date Data Source [id number] 12/15/2019 08:15:00 PM EDT [facility] Name Value Range Interpretation Code Description Data Bryanna rce(s) Supporting Document(s ) READ BACK Yes/MD [facility] ID Date Data Source [id number] 12/15/2019 08:15:00 PM EDT [facility] Name Value Range Interpretation Code Description Data Bryanna rce(s) Supporting Document(s ) READ BACK Yes/ [facility] ID Date Data Source [id number] 12/15/2019 08:15:00 PM EDT [facility] Value Range Interpretation Code Description Data Bryanna rce(s) Supporting Document(s ) NOTE WHO DR LITTLEJOHN [facility] ID Date Data Source [id number] 12/15/2019 08:15:00 PM EDT [facility] Value Range Interpretation Description Data Sup porting Code Source(s) Document(s ) IONIZED 1.53 [place] CALCIUM mmol/L Hospital ID Date Data Source [id number] 12/15/2019 08:15:00 PM EDT [facility] Value Range Interpretation Code Description Data Supporting Source(s) Document(s ) METHEMOGLOBIN 0.8 % [facility] ID Date Data Source [id number] 12/15/2019 08:15:00 PM EDT [facility] Value Range Interpretation Description Data Sup porting Code Source(s) Document(s ) CARBOXYHEMOGLOBIN 0.6 % [facility] ID Date Data Source [id number] 12/15/2019 08:15:00 PM EDT [facility] Value Range Interpretation Code Description Data Bryanna rce(s) Supporting Document(s ) ABG TEMP 98.0 [facility] ID Date Data Source [id number] 12/15/2019 08:15:00 PM EDT [facility] Value Range Interpretation Code Description Data Bryanna rce(s) Supporting Document(s ) FIO2 21 % [facility] ID Date Data Source [id number] 12/15/2019 08:15:00 PM EDT [facility] Value Range Interpretation Code Description Data Bryanna rce(s) Supporting Document(s ) ABG BE -13.7 [facility] mmol/L Hospital ID Date Data Source [id number] 12/15/2019 08:15:00 PM EDT [facility] Value Range Interpretation Code Description Data Bryanna rce(s) Supporting Document(s ) ABG O2SAT 96 % [facility] ID Date Data Source [id number] 12/15/2019 08:15:00 PM EDT [facility] Value Range Interpretation Code Description Data Bryanna rce(s) Supporting Document(s ) ABG HCO3 11 mmol/L [facility] ID Date Data Source [id number] 12/15/2019 08:15:00 PM EDT [facility] Value Range Interpretation Code Description Data Bryanna rce(s) Supporting Document(s ) ABG PO2 87 mm[Hg] [facility] ID Date Data Source [id number] 12/15/2019 08:15:00 PM EDT [facility] Value Range Interpretation Code Description Data Bryanna rce(s) Supporting Document(s ) ABG PCO2 25 mm[Hg] [facility] ID Date Data Source [id number] 12/15/2019 08:15:00 PM EDT [facility] Value Range Interpretation Code Description Data Bryanna rce(s) Supporting Document(s ) ABG PH 7.28 [facility] ID Date Data Source [id number] 12/15/2019 08:15:00 PM EDT [facility] Value Range Interpretation Code Description Data Bryanna rce(s) Supporting Document(s ) ABG MODE Room Air [facility] ID Date Data Source [id number] 12/15/2019 08:15:00 PM EDT [facility] Name Value Range Interpretation Code Description Data Supporting Source(s) Document(s ) ABG SITE Left Radial [facility] ID Date Data Source [id number] 12/15/2019 08:15:00 PM EDT [facility] Name Value Range Interpretation Code Description Data Supporting Source(s) Document(s ) ABG SOURCE ARTERIAL [facility] ID Date Data Source [id number] 12/15/2019 08:15:00 PM EDT [facility] Name Value Range Interpretation Code Description Data Bryanna rce(s) Supporting Document(s ) JORGE TEST POSITIVE [facility] ID Date Data Source [id number] 12/15/2019 08:15:00 PM EDT [facility] Value Range Interpretation Code Description Data Bryanna rce(s) Supporting Document(s ) NOTE WHO DR LITTLEJOHN [facility] ID Date Data Source [id number] 12/15/2019 08:15:00 PM EDT [facility] Value Range Interpretation Description Data Sup porting Code Source(s) Document(s ) IONIZED 1.53 [place] CALCIUM mmol/L Hospital ID Date Data Source [id number] 12/15/2019 08:15:00 PM EDT [facility] Value Range Interpretation Code Description Data Supporting Source(s) Document(s ) METHEMOGLOBIN 0.8 % [facility] ID Date Data Source [id number] 12/15/2019 08:15:00 PM EDT [facility] Value Range Interpretation Description Data Sup porting Code Source(s) Document(s ) CARBOXYHEMOGLOBIN 0.6 % [facility] ID Date Data Source [id number] 12/15/2019 08:15:00 PM EDT [facility] Name Value Range Interpretation Code Description Data Bryanna rce(s) Supporting Document(s ) ABG TEMP 98.0 [facility] ID Date Data Source [id number] 12/15/2019 08:15:00 PM EDT [facility] Value Range Interpretation Code Description Data Bryanna rce(s) Supporting Document(s ) FIO2 21 % [facility] ID Date Data Source [id number] 12/15/2019 08:15:00 PM EDT [facility] Value Range Interpretation Code Description Data Bryanna rce(s) Supporting Document(s ) ABG BE -13.7 [facility] mmol/L Hospital ID Date Data Source [id number] 12/15/2019 08:15:00 PM EDT [facility] Value Range Interpretation Code Description Data Bryanna rce(s) Supporting Document(s ) ABG O2SAT 96 % [facility] ID Date Data Source [id number] 12/15/2019 08:15:00 PM EDT [facility] Value Range Interpretation Code Description Data Bryanna rce(s) Supporting Document(s ) ABG HCO3 11 mmol/L [facility] ID Date Data Source [id number] 12/15/2019 08:15:00 PM EDT [facility] Value Range Interpretation Code Description Data Bryanna rce(s) Supporting Document(s ) ABG PO2 87 mm[Hg] [facility] ID Date Data Source [id number] 12/15/2019 08:15:00 PM EDT [facility] Value Range Interpretation Code Description Data Bryanna rce(s) Supporting Document(s ) ABG PCO2 25 mm[Hg] [facility] ID Date Data Source [id number] 12/15/2019 08:15:00 PM EDT [facility] Name Value Range Interpretation Code Description Data Bryanna rce(s) Supporting Document(s ) ABG PH 7.28 [facility] ID Date Data Source [id number] 12/15/2019 08:15:00 PM EDT [facility] Name Value Range Interpretation Code Description Data Bryanna rce(s) Supporting Document(s ) ABG MODE Room Air [facility] ID Date Data Source [id number] 12/15/2019 08:15:00 PM EDT [facility] Value Range Interpretation Code Description Data Supporting Source(s) Document(s ) ABG SITE Left Radial [facility] ID Date Data Source [id number] 12/15/2019 08:15:00 PM EDT [facility] Value Range Interpretation Code Description Data Supporting Source(s) Document(s ) ABG SOURCE ARTERIAL [facility] ID Date Data Source [id number] 12/15/2019 08:15:00 PM EDT [facility] Value Range Interpretation Code Description Data Bryanna rce(s) Supporting Document(s ) JORGE TEST POSITIVE [facility] ID Date Data Source [id number] 12/15/2019 07:47:00 PM EDT [facility] Name Value Range Interpretation Description Data Sup porting Code Source(s) Document(s ) Ammonia 21 mmol/L [place] [Moles/volum Hospital e] in Plasma ID Date Data Source [id number] 12/15/2019 07:47:00 PM EDT [facility] Value Range Interpretation Description Data Sup porting Code Source(s) Document(s ) Ammonia 21 mmol/L [facility] [place] [Moles/volum [facility] e] in Plasma ID Date Data Source [id number] 12/15/2019 07:47:00 PM EDT [facility] Name Value Range Interpretation Description Data Sup porting Code Source(s) Document(s ) Ammonia 21 mmol/L [facility] [Moles/volum Hospital e] in Plasma ID Date Data Source [id number] 12/15/2019 07:47:00 PM EDT [facility] Name Value Range Interpretation Description Data Sup porting Code Source(s) Document(s ) Ammonia 21 mmol/L [facility] [Moles/volum [facility] e] in Plasma ID Date Data Source [id number] 12/15/2019 07:47:00 PM EDT [facility] Name Value Range Interpretation Description Data Sup porting Code Source(s) Document(s ) Ammonia 21 mmol/L [facility] [Moles/volum [facility] e] in Plasma ID Date Data Source [id number] 12/15/2019 06:32:00 PM EDT [facility] Name Value Range Interpretation Code Description Data Bryanna rce(s) Supporting Document(s ) Lipase 61 U/L [facility] [Enzymatic Hospital activity/vo lume] in Serum or Plasma ID Date Data Source [id number] 12/15/2019 06:32:00 PM EDT [facility] Name Value Range Interpretation Code Description Data Bryanna rce(s) Supporting Document(s ) Lipase 61 U/L [facility] [Enzymatic Hospital activity/vo lume] in Serum or Plasma ID Date Data Source [id number] 12/15/2019 06:32:00 PM EDT [facility] Name Value Range Interpretation Code Description Data Supporting Source(s) Document(s ) NUCLEATED RBCS 0.0 % [facility] (AUTO Hospital DIFF%)DIS ID Date Data Source [id number] 12/15/2019 06:32:00 PM EDT [facility] Name Value Range Interpretation Description Data Sup porting Code Source(s) Document(s ) Differential AUTOMATED [facility] cell count Hospital method - Blood ID Date Data Source [id number] [facility] Interpretation Description Data Sup porting Code Source(s) Document(s ) Immature 0.03 [facility] granulocytes 10*3/uL Hospital [#/volume] in Blood by Automated count ID Date Data Source [id number] 12/15/2019 06:32:00 PM EDT [facility] Value Range Interpretation Description Data Sup porting Code Source(s) Document(s ) Basophils 0.02 [place] [#/volume] in 10*3/uL [facility] Blood by Automated count ID Date Data Source [id number] [facility] Description Data Sup porting Code Source(s) Document(s ) Eosinophils 0.01 [place] [#/volume] in 10*3/uL Hospital Blood by Automated count ID Date Data Source [id number] 12/15/2019 06:32:00 PM [facility] Value Range Interpretation Description Data Sup porting Code Source(s) Document(s ) Monocytes 0.99 [place] [#/volume] in 10*3/uL Hospital Blood by Automated count ID Date Data Source [id number] 12/15/2019 [facility] Interpretation Description Data Sup porting Code Source(s) Document(s ) Lymphocytes 1.72 [place] [#/volume] in 10*3/uL [facility] Blood by Automated count ID Date Data Source [id number] 12/15/2019 06:32:00 PM EDT [facility] Name Value Range Interpretation Description Data Sup porting Code Source(s) Document(s ) Neutrophils 6.39 [facility] [#/volume] in 10*3/uL Hospital Blood by Automated count ID Date Data Source [id number] 12/15/2019 06:32:00 PM EDT [facility] Value Range Interpretation Description Data Sup porting Code Source(s) Document(s ) Nucleated 0.0 % [facility] erythrocytes/10 Hospital 0 leukocytes [Ratio] in Blood by Automated count ID Date Data Source [id number] 12/15/2019 06:32:00 PM EDT [facility] Value Range Interpretation Description Data Sup porting Code Source(s) Document(s ) Immature 0.3 % [facility] granulocytes/10 Hospital 0 leukocytes in Blood by Automated count ID Date Data Source [id number] 12/15/2019 06:32:00 PM EDT [facility] Value Range Interpretation Description Data Sup porting Code Source(s) Document(s ) Basophils/100 0.2 % [facility] leukocytes in Hospital Blood by Automated count ID Date Data Source [id number] 12/15/2019 06:32:00 PM EDT [facility] Value Range Interpretation Description Data Sup porting Code Source(s) Document(s ) Eosinophils/100 0.1 % [facility] leukocytes in Hospital Blood by Automated count ID Date Data Source [id number] 12/15/2019 06:32:00 PM EDT [facility] Value Range Interpretation Description Data Sup porting Code Source(s) Document(s ) Monocytes/100 10.8 % [facility] leukocytes in Hospital Blood by Automated count ID Date Data Source [id number] 12/15/2019 06:32:00 PM EDT [facility] Value Range Interpretation Description Data Sup porting Code Source(s) Document(s ) Lymphocytes/10 18.8 % [facility] 0 leukocytes Hospital in Blood by Automated count ID Date Data Source [id number] 12/15/2019 06:32:00 PM EDT [facility] Name Value Range Interpretation Description Data Sup porting Code Source(s) Document(s ) Neutrophils/10 69.8 % [facility] 0 leukocytes Hospital in Blood by Automated count ID Date Data Source [id number] 12/15/2019 06:32:00 PM EDT [facility] REFERENCE RANGES: NONE DETECTED <20 MG/DL NONE TO MILD EUPHORIA 20-49 MG/DL MILD EUPHORIA 50-99 MG/DL MODERATE EUPHORIA 100-149 MG/DL INTOXICATION 150-300 MG/DL Name Value Range Interpretation Description Data Sup porting Code Source(s) Document(s ) Ethanol < 20 [facility] [place] [Mass/volume mg/dL Hospital ] in Serum or Plasma ID Date Data Source [id number] 12/15/2019 06:32:00 PM [facility] TEST PERFORMED BY [employer] [facility]ENS[facility] CHEMILUMINESCENCE METHOD. Name Value Range Interpretation Description Data Sup porting Code Source(s) Document(s ) Troponin 0.25 [facility] I.cardiac ng/mL Hospital [Mass/volume ] in Serum or Plasma ID Date Data Source [id number] 12/15/2019 [facility] Interpretation Code Description Data Bryanna rce(s) Supporting Document(s ) Lipase 61 U/L [facility] [place] [Enzymatic Hospital activity/vo lume] in Serum or Plasma ID Date Data Source [id number] 12/15/2019 06:32:00 PM [facility] Name Value Range Interpretation Code Description Data Supporting Source(s) Document(s ) NUCLEATED RBCS 0.0 % [facility] (AUTO Hospital DIFF%)DIS ID Date Data Source [id number] 12/15/2019 06:32:00 PM EDT [facility] Name Value Range Interpretation Description Data Sup porting Code Source(s) Document(s ) Differential AUTOMATED [facility] cell count Hospital method - Blood ID Date Data Source [id number] 12/15/2019 06:32:00 PM EDT [facility] Name Value Range Interpretation Description Data Sup porting Code Source(s) Document(s ) Immature 0.03 [facility] granulocytes 10*3/uL Hospital [#/volume] in Blood by Automated count ID Date Data Source [id number] 12/15/2019 06:32:00 PM EDT [facility] Value Range Interpretation Description Data Sup porting Code Source(s) Document(s ) Basophils 0.02 [facility] [#/volume] in 10*3/uL Hospital Blood by Automated count ID Date Data Source [id number] 12/15/2019 06:[facility] Interpretation Description Data Sup porting Code Source(s) Document(s ) Eosinophils 0.01 [facility] [#/volume] in 10*3/uL Hospital Blood by Automated count ID Date Data Source [id number] 12/15/2019 06[facility]32[facility] Value Range Interpretation Description Data Sup porting Code Source(s) Document(s ) Monocytes 0.99 [facility] [#/volume] in 10*3/uL Hospital Blood by Automated count ID Date Data Source [id number] 12/15/2019 06:32:00 PM EDT [facility] Name Value Range Interpretation Description Data Sup porting Code Source(s) Document(s ) Lymphocytes 1.72 [facility] [#/volume] in 10*3/uL Hospital Blood by Automated count ID Date Data Source [id number] 12/15/2019 06:32:00 PM EDT [facility] Value Range Interpretation Description Data Sup porting Code Source(s) Document(s ) Neutrophils 6.39 [facility] [place] [#/volume] in 10*3/uL Hospital Blood by Automated count ID Date Data Source [id number] 12/15/2019 06:32:00 PM EDT [facility] Value Range Interpretation Description Data Sup porting Code Source(s) Document(s ) Nucleated 0.0 % [facility] erythrocytes/10 Hospital 0 leukocytes [Ratio] in Blood by Automated count ID Date Data Source [id number] 12/15/2019 06:32:00 PM EDT [facility] Value Range Interpretation Description Data Sup porting Code Source(s) Document(s ) Immature 0.3 % [facility] granulocytes/10 Hospital 0 leukocytes in Blood by Automated count ID Date Data Source [id number] 12/15/2019 06:32:00 PM EDT [facility] Value Range Interpretation Description Data Sup porting Code Source(s) Document(s ) Basophils/100 0.2 % [facility] leukocytes in Hospital Blood by Automated count ID Date Data Source [id number] 12/15/2019 06:32:00 PM EDT [facility] Value Range Interpretation Description Data Sup porting Code Source(s) Document(s ) Eosinophils/100 0.1 % [facility] leukocytes in Hospital Blood by Automated count ID Date Data Source [id number] 12/15/2019 06:32:00 PM EDT [facility] Value Range Interpretation Description Data Sup porting Code Source(s) Document(s ) Monocytes/100 10.8 % [facility] leukocytes in Hospital Blood by Automated count ID Date Data Source [id number] 12/15/2019 06:32:00 PM EDT [facility] Name Value Range Interpretation Description Data Sup porting Code Source(s) Document(s ) Lymphocytes/10 18.8 % [facility] 0 leukocytes Hospital in Blood by Automated count ID Date Data Source [id number] 12/15/2019 06:32:00 PM EDT [facility] Name Value Range Interpretation Description Data Sup porting Code Source(s) Document(s ) Neutrophils/10 69.8 % [facility] 0 leukocytes Hospital in Blood by Automated count ID Date Data Source [id number] 12/03/2019 12:14:00 PM EDT [facility] Manager Social Services:AMANDA MCGUIRE Name Value Range Interpretation Description Data Sup porting Code Source(s) Document(s ) Glucose 243 mg/dL [facility] [Mass/volume] Hospital in Capillary blood by Glucometer ID Date Data Source [id number] 12/03/2019 10:39[facility] Value Range Interpretation Description Data Sup porting Code Source(s) Document(s ) GLUCOSE RN Notified [facility] ID Date Data Source [id number] 12/03/2019 07:11:00 AM [facility] NOTIFICATION AND READ BACK OF CRITICAL R ESULTS TO KP KRUSE RN 4E AT 0826 ON 12/03/19 BY Jessica Quinteros.REPORTED CR ITICAL VALUES SHOULD BE INTERPRETED WITHIN CLINICAL CONTEXT. Name Value Range Interpretation Description Data Sup porting Code Source(s) Document(s ) Ammonia 56 mmol/L [facility] [Moles/volum Hospital e] in Plasma ID Date Data Source [id number] 12/03/2019 07[facility]11:[facility] Name Value Range Interpretation Description Data Sup porting Code Source(s) Document(s ) Calcium 8.2 mg/dL [facility] [Mass/volume Hospital ] in Serum or Plasma ID Date Data Source [id number] 12/03/2019 07:11:00 AM EDT [facility] Name Value Range Interpretation Code Description Data Bryanna rce(s) Supporting Document(s ) Urea 11.4 [facility] nitrogen/Cre Hospital atinine [Mass Ratio] in Serum or Plasma ID Date Data Source [id number] 12/03/2019 07:11:00 AM EDT [facility] Name Value Range Interpretation Description Data Sup porting Code Source(s) Document(s ) Creatinine 0.7 mg/dL [facility] [Mass/volume] Hospital in Serum or Plasma ID Date Data Source [id number] 12/03/2019 07:11:00 AM EDT [facility] Value Range Interpretation Description Data Sup porting Code Source(s) Document(s ) Urea nitrogen 8 mg/dL [facility] [Mass/volume] Hospital in Serum or Plasma ID Date Data Source [id number] 12/03/2019 07:11:00 AM EDT [facility] Value Range Interpretation Code Description Data Bryanna rce(s) Supporting Document(s ) Anion gap in 13 [facility] Serum or [facility] Plasma ID Date Data Source [id number] 12/03/2019 07:11:00 AM EDT [facility] Name Value Range Interpretation Description Data Sup porting Code Source(s) Document(s ) Carbon 25 mmol/L [facility] dioxide, Hospital total [Moles/volu me] in Serum or Plasma ID Date Data Source [id number] 12/03/2019 07:11:00 AM EDT [facility] Name Value Range Interpretation Description Data Sup porting Code Source(s) Document(s ) Chloride 99 mmol/L [facility] [Moles/volum Hospital e] in Serum or Plasma ID Date Data Source [id number] 12/03/2019 07:11:00 AM EDT [facility] Name Value Range Interpretation Description Data Sup porting Code Source(s) Document(s ) Potassium 3.8 [facility] [Moles/volume mmol/L Hospital ] in Serum or Plasma ID Date Data Source [id number] 12/03/2019 07:11:00 AM EDT [facility] Value Range Interpretation Description Data Sup porting Code Source(s) Document(s ) Sodium 133 mmol/L [facility] [Moles/volu Hospital mi] in Serum or Plasma ID Date Data Source [id number] 12/03/2019 07:11:00 AM EDT [facility] Value Range Interpretation Description Data Sup porting Code Source(s) Document(s ) Glucose 353 mg/dL [facility] [Mass/volume Hospital ] in Serum or Plasma ID Date Data Source [id number] 12/02/2019 07:56:00 AM EDT [facility] Value Range Interpretation Code Description Data Supporting Source(s) Document(s ) NUCLEATED RBCS 0.0 % [facility] (AUTO Hospital DIFF%)DIS ID Date Data Source [id number] 12/02[facility] Description Data Sup porting Code Source(s) Document(s ) Differential AUTOMATED [facility] cell count Hospital method - Blood ID Date Data Source [id number] 12/02/2019 [facility] Interpretation Description Data Sup porting Code Source(s) Document(s ) Immature 0.01 [facility] granulocytes 10*3/uL Hospital [#/volume] in Blood by Automated count ID Date Data Source [id number] 12/02/2019 07[facility]56[facility] Range Interpretation Description Data Sup porting Code Source(s) Document(s ) Basophils 0.04 [place] [#/volume] in 10*3/uL Hospital Blood by Automated count ID Date Data Source [id number] 12/02/2019 07:56:00 AM EDT [facility] Name Value Range Interpretation Description Data Sup porting Code Source(s) Document(s ) Eosinophils 0.12 [place] [#/volume] in 10*3/uL Hospital Blood by Automated count ID Date Data Source [id number] 12/02/2019 07:56:00 AM EDT [facility] Value Range Interpretation Description Data Sup porting Code Source(s) Document(s ) Monocytes 0.51 [place] [#/volume] in 10*3/uL Hospital Blood by Automated count ID Date Data Source [id number] 12/02/2019 07:56:00 AM EDT [facility] Value Range Interpretation Description Data Sup porting Code Source(s) Document(s ) Lymphocytes 1.89 [place] [#/volume] in 10*3/uL Hospital Blood by Automated count ID Date Data Source [id number] 12/02/2019 07:56:00 AM EDT [facility] Value Range Interpretation Description Data Sup porting Code Source(s) Document(s ) Neutrophils 1.81 [place] [#/volume] in 10*3/uL Hospital Blood by Automated count ID Date Data Source [id number] 12/02/2019 07:56:00 AM EDT [facility] Value Range Interpretation Description Data Sup porting Code Source(s) Document(s ) Nucleated 0.0 % [facility] erythrocytes/10 Hospital 0 leukocytes [Ratio] in Blood by Automated count ID Date Data Source [id number] 12/02/2019 07:56:00 AM EDT [facility] Value Range Interpretation Description Data Sup porting Code Source(s) Document(s ) Immature 0.2 % [facility] granulocytes/10 Hospital 0 leukocytes in Blood by Automated count ID Date Data Source [id number] 12/02/2019 07:56:00 AM EDT [facility] Value Range Interpretation Description Data Sup porting Code Source(s) Document(s ) Basophils/100 0.9 % [place] leukocytes in [facility] Blood by Automated count ID Date Data Source [id number] 12/02/2019 07:56:00 AM EDT [facility] Value Range Interpretation Description Data Sup porting Code Source(s) Document(s ) Eosinophils/100 2.7 % [facility] leukocytes in Hospital Blood by Automated count ID Date Data Source [id number] 12/02/2019 07:56:00 AM EDT [facility] Value Range Interpretation Description Data Sup porting Code Source(s) Document(s ) Monocytes/100 11.6 % [facility] leukocytes in Hospital Blood by Automated count ID Date Data Source [id number] 12/02/2019 07:56:00 AM EDT [facility] Value Range Interpretation Description Data Sup porting Code Source(s) Document(s ) Lymphocytes/10 43.2 % [facility] 0 leukocytes Hospital in Blood by Automated count ID Date Data Source [id number] 12/02/2019 07:56:00 AM EDT [facility] Value Range Interpretation Description Data Sup porting Code Source(s) Document(s ) Neutrophils/10 41.4 % [facility] [place] 0 leukocytes Hospital in Blood by Automated count ID Date Data Source [id number] 12/02/2019 07:56:00 AM EDT [facility] Value Range Interpretation Description Data Sup porting Code Source(s) Document(s ) Platelet mean 13.8 fL [facility] volume Hospital [Entitic volume] in Blood by Automated count ID Date Data Source [id number] 12/02/2019 07:56:00 AM [facility] Value Range Interpretation Description Data Sup porting Code Source(s) Document(s ) Platelets 143 [place] [#/volume] in 10*3/uL Hospital Blood by Automated count ID Date Data Source [id number] [facility] Interpretation Description Data Sup porting Code Source(s) Document(s ) Erythrocyte 14.3 % [facility] Hospital width [Ratio] by Automated count ID Date Data Source [id number] 12/02/2019 07:56:00 AM [facility] Value Range Interpretation Description Data Sup porting Code Source(s) Document(s ) Erythrocyte mean 34.2 [place] [facility] corpuscular g/dL Hospital hemoglobin concentration [Mass/volume] by Automated count ID Date Data Source [id number] 12/02/2019 07:56:00 AM [facility] Value Range Interpretation Description Data Sup porting Code Source(s) Document(s ) Erythrocyte 30.5 pg [facility] corpuscular hemoglobin [Entitic mass] by Automated count ID Date Data Source [id number] 12/02/2019 07:56:00 AM [facility] Value Range Interpretation Description Data Sup porting Code Source(s) Document(s ) Erythrocyte 89.2 fL [facility] corpuscular volume [Entitic volume] by Automated count ID Date Data Source [id number] 12/02/2019 07:56:00 AM [facility] Value Range Interpretation Description Data Sup porting Code Source(s) Document(s ) Hematocrit 34.8 % [facility] [Volume Hospital Fraction] of Blood by Automated count ID Date Data Source [id number] 12/02/2019 07:56:00 AM EDT [facility] Name Value Range Interpretation Description Data Sup porting Code Source(s) Document(s ) Hemoglobin 11.9 g/dL [facility] [Mass/volume] Hospital in Blood ID Date Data Source [id number] 12/02/2019 07:56:00 AM EDT [facility] Value Range Interpretation Description Data Sup porting Code Source(s) Document(s ) Erythrocytes 3.90 [place] [#/volume] in 10*6/uL Hospital Blood by Automated count ID Date Data Source [id number] 12/02/2019 07:56:00 AM EDT [facility] Name Value Range Interpretation Description Data Sup porting Code Source(s) Document(s ) Leukocytes 4.4 [place] [#/volume] in 10*3/uL Hospital Blood by Automated count ID Date Data Source [id number] 12/01/2019 07:50:00 AM EDT [facility] Name Value Range Interpretation Description Data Sup porting Code Source(s) Document(s ) Aspartate 65 U/L White aminotransferase [place] [Enzymatic Hospital activity/volume] in Serum or Plasma ID Date Data Source [id number] 12/01/2019 07:50:00 AM EDT [facility] Value Range Interpretation Description Data Sup porting Code Source(s) Document(s ) Alanine 38 U/L White aminotransferase [place] [Enzymatic Hospital activity/volume] in Serum or Plasma ID Date Data Source [id number] 12/01/2019 07:50:00 AM EDT [facility] Name Value Range Interpretation Description Data Sup porting Code Source(s) Document(s ) Alkaline 69 U/L [facility] phosphatase Hospital [Enzymatic activity/volume ] in Serum or Plasma ID Date Data Source [id number] 12/01/2019 07:50:00 AM EDT [facility] Name Value Range Interpretation Description Data Sup porting Code Source(s) Document(s ) Bilirubin.t 1.3 mg/dL [facility] [Mass/volum e] in Serum or Plasma ID Date Data Source [id number] 12/01/2019 07[facility] Value Range Interpretation Code Description Data Bryanna rce(s) Supporting Document(s ) Albumin/Glob 1.1 [place] ulin [Mass Hospital Ratio] in Serum or Plasma ID Date Data Source [id number] 12/01/2019 07:50:[facility] Name Value Range Interpretation Description Data Sup porting Code Source(s) Document(s ) Albumin 3.4 g/dL [place] [Mass/volume Hospital ] in Serum or Plasma ID Date Data Source [id number] 12/01/2019 07:50:[facility] Name Value Range Interpretation Description Data Sup porting Code Source(s) Document(s ) Protein 6.4 g/dL [place] [Mass/volume Hospital ] in Serum or Plasma ID Date Data Source [id number] 11/30/2019 05:09:[facility] CUT-OFF >= 25 NG/ML.THE FINDINGS OF [...] rce(s) Supporting Document(s ) PCP (UR) NEGATIVE [facility] ID Date Data Source [id number] 11/30/2019 05:09:00 PM [facility] CUT-OFF >= 50 NG/ML. Name Value Range Interpretation Code Description Data Bryanna rce(s) Supporting Document(s ) THC (UR) NEGATIVE [facility] ID Date Data Source [id number] 11/30/2019 05:09:00 PM EDT [facility] CUT-OFF >= 300 NG/ML. Name Value Range Interpretation Description Data Sup porting Code Source(s) Document(s ) OPIATES (UR) NEGATIVE [facility] ID Date Data Source [id number] 11/30/2019 05:09:00 PM EDT [facility] CUT-OFF >= 300 NG/ML. Name Value Range Interpretation Description Data Sup porting Code Source(s) Document(s ) COCAINE (UR) NEGATIVE [facility] ID Date Data Source [id number] 11/30/2019 05:09:00 PM EDT [facility] CUT-OFF >= 200 NG/ML. Name Value Range Interpretation Description Data Sup porting Code Source(s) Document(s ) BENZODIAZEPINES NEGATIVE [place] (UR) [facility] ID Date Data Source [id number] 11/30/2019 05:09:00 PM EDT [facility] CUT-OFF >= 200 NG/ML. Name Value Range Interpretation Description Data Sup porting Code Source(s) Document(s ) BARBITURATES NEGATIVE [facility] (UR) Hospital ID Date Data Source [id number] 11/30/2019 05:09:00 PM EDT [facility] CUT-OFF >= 1000 NG/ML. Name Value Range Interpretation Description Data Sup porting Code Source(s) Document(s ) AMPHETAMINES NEGATIVE [facility] (UR) Hospital ID Date Data Source [id number] 11/30/2019 05:09:00 PM EDT [facility] Name Value Range Interpretation Description Data Sup porting Code Source(s) Document(s ) Leukocyte NEGATIVE [facility] Hospital [Presence] in Urine by Test strip ID Date Data Source [id number] 11/30/2019 05:09:00 PM EDT [facility] Name Value Range Interpretation Description Data Sup porting Code Source(s) Document(s ) URINE NEGATIVE [facility] NITRITES Hospital ID Date Data Source [id number] 11/30/2019 05:09:00 PM EDT [facility] Name Value Range Interpretation Description Data Sup porting Code Source(s) Document(s ) Erythrocytes NEGATIVE [facility] [#/volume] in Hospital Urine by Test strip ID Date Data Source [id number] 11/30/2019 05:09:00 PM EDT [facility] Name Value Range Interpretation Code Description Data Bryanna rce(s) Supporting Document(s ) Bilirubin. NEGATIVE [facility] total Hospital [Presence] in Urine by Test strip ID Date Data Source [id number] 11/30/2019 05:09:00 PM EDT [facility] Name Value Range Interpretation Description Data Sup porting Code Source(s) Document(s ) Urobilinogen 1.0 [facility] [Units/volume] mg/dL Hospital in Urine by Test strip ID Date Data Source [id number] 11/30/2019 05:09:00 PM EDT [facility] Name Value Range Interpretation Description Data Sup porting Code Source(s) Document(s ) Ketones NEGATIVE [facility] [Mass/volume Hospital ] in Urine by Test strip ID Date Data Source [id number] 11/30/2019 05:09:00 PM EDT [facility] Name Value Range Interpretation Code Description Data Bryanna rce(s) Supporting Document(s ) Glucose TRACE [facility] [Mass/volume Hospital ] in Urine by Test strip ID Date Data Source [id number] 11/30/2019 05:09:00 PM [facility] Name Value Range Interpretation Description Data Sup porting Code Source(s) Document(s ) Protein NEGATIVE [facility] [Presence] Hospital in Urine by Test strip ID Date Data Source [id number] 11/30/2019 05:09:[facility] Name Value Range Interpretation Code Description Data Bryanna rce(s) Supporting Document(s ) pH of Urine 7.5 [facility] by Test Hospital strip ID Date Data Source [id number] 11/30/2019 05:09:00 PM [facility] Name Value Range Interpretation Code Description Data Supporting Source(s) Document(s ) Specific 1.012 [facility] gravity of Hospital Urine by Test strip ID Date Data Source [id number] 11/30/2019 05:09:00 PM [facility] Name Value Range Interpretation Description Data Sup porting Code Source(s) Document(s ) Clarity in Urine CLEAR [facility] by Refractometry Hospital automated ID Date Data Source [id number] 11/30/2019 05:09:00 PM [facility] Name Value Range Interpretation Code Description Data Bryanna rce(s) Supporting Document(s ) Color of YELLOW [facility] Urine Hospital ID Date Data Source [id number] 11/30/2019 03:51:00 PM [facility] THERAPEUTIC RANGES:UNFRACTIONATED HEPARI N THERAPY: 60-90 SECONDSARGATROBAN THERAPY: 49-99 SECONDS Name Value Range Interpretation Description Data Sup porting Code Source(s) Document(s ) aPTT in 28.3 s [facility] [place] Platelet poor [facility] plasma by Coagulation assay ID Date Data Source [id number] 11/30/2019 03:51:00 PM [facility] THERAPEUTIC RANGE FOR STANDARD ORALANTIC OAGULANT THERAPY: 2.0-3.0THERAPEUTIC RANGE FOR HIGH DOSE ORALANTICOAGULANT THERAPY (MECHANICAL HEARTVALVE REPLACEMENT): 2.5-3.5 Name Value Range Interpretation Description Data Sup porting Code Source(s) Document(s ) INR in Platelet 1.0 [facility] poor plasma by Hospital Coagulation assay ID Date Data Source [id number] 11/30/2019 03:51:00 PM EDT [facility] Name Value Range Interpretation Description Data Sup porting Code Source(s) Document(s ) PT panel - 11.8 s [place] Platelet poor [facility] plasma by Coagulation assay ID Date Data Source [id number] 11/30/2019 03:36:[facility] Name Value Range Interpretation Description Data Sup porting Code Source(s) Document(s ) Thyroxine 0.7 ng/dL [place] (T4) [facility] [Mass/volume] in Serum or Plasma ID Date Data Source [id number] 11/30/2019 03:36:[facility] Name Value Range Interpretation Description Data Sup porting Code Source(s) Document(s ) Thyrotropin 2.072 [place] [Units/volume] u[IU]/mL Hospital in Serum or Plasma by Detection limit <= 0.005 mIU/L ID Date Data Source [id number] 11/30/2019 03:36:00 PM [facility] Name Value Range Interpretation Description Data Sup porting Code Source(s) Document(s ) Thyroxine 0.7 ng/dL [facility] ([facility] [Mass/volume] in Serum or Plasma ID Date Data Source [id number] 11/30/2019 03[facility]36:[facility] Name Value Range Interpretation Description Data Sup porting Code Source(s) Document(s ) Thyrotropin 2.072 [place] [facility] [Units/volume] u[IU]/mL Hospital in Serum or Plasma by Detection limit <= 0.005 mIU/L ID Date Data Source [id number] 11/30/2019 03:36:00 PM [facility] Name Value Range Interpretation Description Data Sup porting Code Source(s) Document(s ) Thyroxine 0.7 ng/dL [facility] (T4) free Hospital [Mass/volume] in Serum or Plasma ID Date Data Source [id number] 11/30/2019 03:36:00 PM EDT [facility] Name Value Range Interpretation Description Data Sup porting Code Source(s) Document(s ) Thyrotropin 2.072 [place] [Units/volume] u[IU]/mL Hospital in Serum or Plasma by Detection limit <= 0.005 mIU/L ID Date Data Source [id number] 11/30/2019 03:36:00 PM [facility] UNITS ARE IN ml/min/1.73m2.IF PATIENT IS -CYMRAES, MULTIPLY REPORTED RESULT BY 1.21. Name Value Range Interpretation Description Data Sup porting Code Source(s) Document(s ) Glomerular > 60 [facility] filtration mL/min Hospital rate/1.73 sq M.predicted [Volume Rate/Area] in Serum or Plasma by Creatinine-bas ed formula (MDRD) ID Date Data Source [id number] 11/30/2019 02:18:00 PM [facility] TEST RESULT IS A TOTAL TRICYCLIC [...] Code Source(s) Document(s ) TRICYCLIC < 80 [facility] ANTIDEPRESSANT ng/mL Hospital ID Date Data Source [id number] 11/30/2019 02:18:00 PM [facility] REFERENCE RANGES: ANALGESIC: 0.0 - 10.0 MG/DL. ARTHRITIC THERAPY: 15.0 - 30.0 MG/DL. Name Value Range Interpretation Description Data Sup porting Code Source(s) Document(s ) Salicylates < 3.0 [facility] [Mass/volume] mg/dL Hospital in Serum or Plasma ID Date Data Source [id number] 11/30/2019 02:18:00 PM [facility] THERAPEUTIC RANGE: 10.0-30.0 UG/MLTOXIC RANGE: 4 HRS AFTER INGESTION >150 UG/ML 12 HRS AFTER INGESTION >35 UG/ML Name Value Range Interpretation Description Data Sup porting Code Source(s) Document(s ) ACETAMINOPHEN < 10.0 [facility] ug/mL Hospital ID Date Data Source [id number] 11/30/2019 02:18:00 PM [facility] Name Value Range Interpretation Description Data Sup porting Code Source(s) Document(s ) OSMOLALITY 310 [facility] [place] (SERUM) mosm/kg Hospital ID Date Data Source [id number] 11/30/2019 02:18:00 PM [facility] TEST RESULT IS A TOTAL TRICYCLIC [...] Code Source(s) Document(s ) TRICYCLIC < 80 [facility] ANTIDEPRESSANT ng/mL Hospital ID Date Data Source [id number] 11/30/2019 02:18:00 PM [facility] REFERENCE RANGES: ANALGESIC: 0.0 - 10.0 MG/DL. ARTHRITIC THERAPY: 15.0 - 30.0 MG/DL. Name Value Range Interpretation Description Data Sup porting Code Source(s) Document(s ) Salicylates < 3.0 [facility] [Mass/volume] mg/dL Hospital in Serum or Plasma ID Date Data Source [id number] 11/30/2019 02:18:00 PM [facility] THERAPEUTIC RANGE: 10.0-30.0 UG/MLTOXIC RANGE: 4 HRS AFTER INGESTION >150 UG/ML 12 HRS AFTER INGESTION >35 UG/ML Name Value Range Interpretation Description Data Sup porting Code Source(s) Document(s ) ACETAMINOPHEN < 10.0 [facility] ug/mL Hospital ID Date Data Source [id number] 11/30/2019 02:18:00 PM [facility] Name Value Range Interpretation Description Data Sup porting Code Source(s) Document(s ) OSMOLALITY 310 [facility] (SERUM) mosm/kg Hospital ID Date Data Source [id number] 11/30/2019 02:18:00 PM [facility] REFERENCE RANGES: NONE DETECTED <20 MG/DL NONE TO MILD EUPHORIA 20-49 MG/DL MILD EUPHORIA 50-99 MG/DL MODERATE EUPHORIA 100-149 MG/DL INTOXICATION 150-300 MG/DL Name Value Range Interpretation Description Data Sup porting Code Source(s) Document(s ) Ethanol < 20 [facility] [Mass/volume mg/dL Hospital ] in Serum or Plasma ID Date Data Source [id number] 11/30/2019 02:18:00 PM [facility] TEST RESULT IS A TOTAL TRICYCLIC [...] Code Source(s) Document(s ) TRICYCLIC < 80 [facility] ANTIDEPRESSANT ng/mL Hospital ID Date Data Source [id number] 11/30/2019 02:18:00 PM [facility] REFERENCE RANGES: ANALGESIC: 0.0 - 10.0 MG/DL. ARTHRITIC THERAPY: 15.0 - 30.0 MG/DL. Name Value Range Interpretation Description Data Sup porting Code Source(s) Document(s ) Salicylates < 3.0 [facility] [Mass/volume] mg/dL Hospital in Serum or Plasma ID Date Data Source [id number] 11/30/2019 02:18:00 PM [facility] THERAPEUTIC RANGE: 10.0-30.0 UG/MLTOXIC RANGE: 4 HRS AFTER INGESTION >150 UG/ML 12 HRS AFTER INGESTION >35 UG/ML Name Value Range Interpretation Description Data Sup porting Code Source(s) Document(s ) ACETAMINOPHEN < 10.0 [facility] ug/mL Hospital ID Date Data Source [id number] 11/30/2019 02:18:00 PM [facility] TEST PERFORMED BY [employer] [facility]ENS[facility] CHEMILUMINESCENCE METHOD. Name Value Range Interpretation Description Data Sup porting Code Source(s) Document(s ) Troponin < 0.01 [facility] I.cardiac ng/mL Hospital [Mass/volume ] in Serum or Plasma ID Date Data Source [id number] 11/30/2019 02:18:00 PM [facility] Name Value Range Interpretation Description Data Sup porting Code Source(s) Document(s ) OSMOLALITY 310 [facility] (SERUM) mosm/kg Hospital ID Date Data Source [id number] 11/30/2019 02:18:00 PM [facility] Name Value Range Interpretation Code Description Data Bryanna rce(s) Supporting Document(s ) Lipase 31 U/L [facility] [Enzymatic Hospital activity/vo lume] in Serum or Plasma ID Date Data Source [id number] 11/29/2019 08:03:[facility] Social Services:YADIRA HALL Name Value Range Interpretation Description Data Sup porting Code Source(s) Document(s ) Glucose 309 mg/dL [place] [Mass/volume] [facility] in Capillary blood by Glucometer ID Date Data Source [id number] 11/[facility] Interpretation Code Description Data Bryanna rce(s) Supporting Document(s ) RBC COMMENT NORMAL [facility] ID Date Data Source [id number] 11/29/2019 [facility]:58[facility] Range Interpretation Description Data Sup porting Code Source(s) Document(s ) Basophils 0.04 [facility] [#/volume] in 10*3/uL Hospital Blood by Manual count ID Date Data Source [id number] 11/29/2019 [facility]:58[facility] Range Interpretation Description Data Sup porting Code Source(s) Document(s ) Basophils/100 1 % [facility] leukocytes in Hospital Blood by Manual count ID Date Data Source [id number] 11/29/2019 [facility]:58[facility] Range Interpretation Description Data Sup porting Code Source(s) Document(s ) Monocytes/100 15 % [facility] leukocytes in Hospital Blood by Manual count ID Date Data Source [id number] 11/29/2019 07:58:00 AM EDT [facility] Value Range Interpretation Description Data Sup porting Code Source(s) Document(s ) Lymphocytes/100 36 % [facility] leukocytes in Hospital Blood by Manual count ID Date Data Source [id number] 11/29/2019 07:58:[facility] Name Value Range Interpretation Description Data Sup porting Code Source(s) Document(s ) Neutrophils/100 37 % [facility] leukocytes in Hospital Blood by Manual count ID Date Data Source [id number] 11/29/2019 07:58:[facility] NOTIFICATION AND READ BACK OF CRITICAL R ESULTS TO AARON NOEL RN 5F AT 0853 ON 11/29/19 BY Jessica Quinteros.REPORTED CR ITICAL VALUES SHOULD BE INTERPRETED WITHIN CLINICAL CONTEXT. Name Value Range Interpretation Description Data Sup porting Code Source(s) Document(s ) Ammonia 87 mmol/L [facility] [Moles/volum Hospital e] in Plasma ID Date Data Source [id number] 11/29/2019 07:58:00 AM EDT [facility] Name Value Range Interpretation Description Data Sup porting Code Source(s) Document(s ) Aspartate 36 U/L White aminotransferase [place] [Enzymatic Hospital activity/volume] in Serum or Plasma ID Date Data Source [id number] 11/29/2019 07:58:[facility] Name Value Range Interpretation Description Data Sup porting Code Source(s) Document(s ) Alanine 29 U/L White aminotransferase [place] [Enzymatic Hospital activity/volume] in Serum or Plasma ID Date Data Source [id number] [facility] Value Range Interpretation Description Data Sup porting Code Source(s) Document(s ) Alkaline 67 U/L [facility] [Enzymatic activity/volume ] in Serum or Plasma ID Date Data Source [id number] 11/29/2019 07[facility] Name Value Range Interpretation Description Data Sup porting Code Source(s) Document(s ) Bilirubin.t 0.8 mg/dL [facility] [Mass/volum e] in Serum or Plasma ID Date Data Source [id number] 11/29/2019 07:58:[facility] Name Value Range Interpretation Code Description Data Bryanna rce(s) Supporting Document(s ) Albumin/Glob 1.1 [facility] [Mass [facility] Ratio] in Serum or Plasma ID Date Data Source [id number] 11/29/2019 07:58:00 AM [facility] Name Value Range Interpretation Description Data Sup porting Code Source(s) Document(s ) Albumin 3.3 g/dL [facility] [Mass/volume Hospital ] in Serum or Plasma ID Date Data Source [id number] 11/29/2019 07:58:00 AM [facility] Name Value Range Interpretation Description Data Sup porting Code Source(s) Document(s ) Protein 6.2 g/dL [facility] [Mass/volume Hospital ] in Serum or Plasma ID Date Data Source [id number] 11/29/2019 07:58:00 AM [facility] Name Value Range Interpretation Description Data Sup porting Code Source(s) Document(s ) Calcium 9.3 mg/dL [facility] [Mass/volume Hospital ] in Serum or Plasma ID Date Data Source [id number] 11/29/2019 07:58:00 AM [facility] UNITS ARE IN ml/min/1.73m2.IF PATIENT IS -CYMRAES, MULTIPLY REPORTED RESULT BY 1.21. Name Value Range Interpretation Description Data Sup porting Code Source(s) Document(s ) Glomerular > 60 [facility] filtration mL/min Hospital rate/1.73 sq M.predicted [Volume Rate/Area] in Serum or Plasma by Creatinine-bas ed formula (MDRD) ID Date Data Source [id number] 11/29/2019 07:58:00 AM EDT [facility] Name Value Range Interpretation Code Description Data Bryanna rce(s) Supporting Document(s ) Urea 18.8 [facility] nitrogen/Cre Hospital atinine [Mass Ratio] in Serum or Plasma ID Date Data Source [id number] 11/29/2019 07:58:00 AM EDT [facility] Name Value Range Interpretation Description Data Sup porting Code Source(s) Document(s ) Creatinine 0.8 mg/dL [facility] [Mass/volume] Hospital in Serum or Plasma ID Date Data Source [id number] 11/29/2019 07:58:00 AM EDT [facility] Name Value Range Interpretation Description Data Sup porting Code Source(s) Document(s ) Urea 15 mg/dL [facility] nitrogen [facility] [Mass/volume ] in Serum or Plasma ID Date Data Source [id number] 11/29/2019 07:58:00 AM EDT [facility] Name Value Range Interpretation Code Description Data Bryanna rce(s) Supporting Document(s ) Anion gap in 9 [facility] Serum or Hospital Plasma ID Date Data Source [id number] 11/29/2019 07:58:00 AM EDT [facility] Name Value Range Interpretation Description Data Sup porting Code Source(s) Document(s ) Carbon 31 mmol/L [facility] dioxide, Hospital total [Moles/volu me] in Serum or Plasma ID Date Data Source [id number] 11/29/2019 07:58:00 AM EDT [facility] Name Value Range Interpretation Description Data Sup porting Code Source(s) Document(s ) Chloride 106 [facility] [Moles/volum mmol/L Hospital e] in Serum or Plasma ID Date Data Source [id number] 11/29/2019 07:58:00 AM EDT [facility] Name Value Range Interpretation Description Data Sup porting Code Source(s) Document(s ) Potassium 5.2 [facility] [Moles/volume mmol/L Hospital ] in Serum or Plasma ID Date Data Source [id number] 11/29/2019 07:58:00 AM EDT [facility] Value Range Interpretation Description Data Sup porting Code Source(s) Document(s ) Sodium 141 mmol/L [facility] [Moles/volu Hospital mi] in Serum or Plasma ID Date Data Source [id number] 11/29/2019 07:58:00 AM EDT [facility] Value Range Interpretation Description Data Sup porting Code Source(s) Document(s ) Glucose 320 mg/dL [facility] [Mass/volume Hospital ] in Serum or Plasma ID Date Data Source [id number] 11/29/2019 07:58:00 AM EDT [facility] Value Range Interpretation Description Data Sup porting Code Source(s) Document(s ) Manual MANUAL [facility] differential Hospital performed [Presence] in Blood ID Date Data Source [id number] [facility] Description Data Sup porting Code Source(s) Document(s ) Platelet mean 12.7 fL [facility] volume Hospital [Entitic volume] in Blood by Automated count ID Date Data Source [id number] 11/[facility]/2019 [facility] Interpretation Description Data Sup porting Code Source(s) Document(s ) Platelets 140 [facility] [#/volume] in 10*3/uL Hospital Blood by Automated count ID Date Data Source [id number] 11/29/2019 07:58:00 AM EDT [facility] Value Range Interpretation Description Data Sup porting Code Source(s) Document(s ) Erythrocyte 13.5 % [facility] width [Ratio] by Automated count ID Date Data Source [id number] 11/29/2019 07[facility]58[facility] Name Value Range Interpretation Description Data Sup porting Code Source(s) Document(s ) Erythrocyte mean 34.3 [facility] corpuscular g/dL Hospital hemoglobin concentration [Mass/volume] by Automated count ID Date Data Source [id number] 11/29/2019 07:58:00 AM EDT [facility] Name Value Range Interpretation Description Data Sup porting Code Source(s) Document(s ) Erythrocyte 30.3 pg [facility] corpuscular hemoglobin [Entitic mass] by Automated count ID Date Data Source [id number] 11/29/2019 07:58:00 AM [facility] THIS TEST RESULT HAS BEEN CONFIRMED BY R EPEAT ANALYSIS. Name Value Range Interpretation Description Data Sup porting Code Source(s) Document(s ) Erythrocyte 88.3 fL [facility] corpuscular volume [Entitic volume] by Automated count ID Date Data Source [id number] 11/29/2019 07:58:00 AM [facility] Value Range Interpretation Description Data Sup porting Code Source(s) Document(s ) Hematocrit 34.7 % [facility] [Volume Hospital Fraction] of Blood by Automated count ID Date Data Source [id number] 11/29/2019 07:58:00 AM [facility] Name Value Range Interpretation Description Data Sup porting Code Source(s) Document(s ) Hemoglobin 11.9 g/dL [facility] [Mass/volume] Hospital in Blood ID Date Data Source [id number] 11/29/2019 07[facility]58:[facility] Name Value Range Interpretation Description Data Sup porting Code Source(s) Document(s ) Erythrocytes 3.93 [facility] [#/volume] in 10*6/uL Hospital Blood by Automated count ID Date Data Source [id number] 11/29/2019 07:58:00 AM EDT [facility] Name Value Range Interpretation Description Data Sup porting Code Source(s) Document(s ) Leukocytes 3.6 [facility] [#/volume] in 10*3/uL Hospital Blood by Automated count ID Date Data Source [id number] 11/29/2019 07:58:00 AM EDT [facility] Name Value Range Interpretation Description Data Sup porting Code Source(s) Document(s ) Manual MANUAL [facility] differential Hospital performed [Presence] in Blood ID Date Data Source [id number] 11/29/2019 07:58:00 AM EDT [facility] Value Range Interpretation Code Description Data Bryanna rce(s) Supporting Document(s ) Cells 100 [facility] Counted [facility] Total [#] in Blood ID Date Data Source [id number] 11/29/2019 07:58:00 AM EDT [facility] Value Range Interpretation Code Description Data Supporting Source(s) Document(s ) PLATELET NORMAL [facility] COMMENT Hospital ID Date Data Source [id number] 11/29/2019 07:58:00 AM EDT [facility] Value Range Interpretation Code Description Data Bryanna rce(s) Supporting Document(s ) RBC COMMENT NORMAL [facility] ID Date Data Source [id number] 11/29/2019 07:58:00 AM EDT [facility] Value Range Interpretation Description Data Sup porting Code Source(s) Document(s ) Basophils 0.04 [facility] [#/volume] in 10*3/uL Hospital Blood by Manual count ID Date Data Source [id number] 11/29/2019 07:58:00 AM EDT [facility] Name Value Range Interpretation Description Data Sup porting Code Source(s) Document(s ) Eosinophils 0.40 [facility] [#/volume] in 10*3/uL Hospital Blood by Manual count ID Date Data Source [id number] 11/29/2019 07:58:00 AM EDT [facility] Name Value Range Interpretation Description Data Sup porting Code Source(s) Document(s ) Monocytes 0.54 [facility] [#/volume] in 10*3/uL Hospital Blood by Manual count ID Date Data Source [id number] 11/29/2019 07:58:00 AM EDT [facility] Value Range Interpretation Description Data Sup porting Code Source(s) Document(s ) Lymphocytes 1.30 [facility] [#/volume] in 10*3/uL Hospital Blood by Manual count ID Date Data Source [id number] 11/29/2019 07:58:00 AM EDT [facility] Name Value Range Interpretation Description Data Sup porting Code Source(s) Document(s ) Neutrophils 1.33 [facility] [#/volume] in 10*3/uL Hospital Blood by Manual count ID Date Data Source [id number] 11/29/2019 07:58:00 AM EDT [facility] Name Value Range Interpretation Description Data Sup porting Code Source(s) Document(s ) Basophils/100 1 % [facility] leukocytes in Hospital Blood by Manual count ID Date Data Source [id number] 11/29/2019 07:58:00 AM EDT [facility] Name Value Range Interpretation Description Data Sup porting Code Source(s) Document(s ) Eosinophils/100 11 % [facility] leukocytes in Hospital Blood by Manual count ID Date Data Source [id number] 11/28/2019 08:18:00 AM EDT [facility] NEUT VACUOLES PRESENT Name Value Range Interpretation Code Description Data Supporting Source(s) Document(s ) WBC COMMENT PRESENT [facility] ID Date Data Source [id number] 11/28/2019 08:18:00 AM EDT [facility] Name Value Range Interpretation Code Description Data Bryanna rce(s) Supporting Document(s ) Cells 100 [facility] Total [#] in Blood ID Date Data Source [id number] 11/28/2019 08:18:00 AM EDT [facility] Name Value Range Interpretation Description Data Sup porting Code Source(s) Document(s ) Platelet NORMAL [facility] Hospital Comment ID Date Data Source [id number] 11/28/2019 08:18:00 AM EDT [facility] NEUT VACUOLES PRESENT Name Value Range Interpretation Code Description Data Supporting Source(s) Document(s ) WBC COMMENT PRESENT [facility] ID Date Data Source [id number] 11/28/2019 08:18:00 AM EDT [facility] Name Value Range Interpretation Code Description Data Bryanna rce(s) Supporting Document(s ) TARGET CELLS [facility] ID Date Data Source [id number] 11/28/2019 08:18:00 AM EDT [facility] Name Value Range Interpretation Description Data Sup porting Code Source(s) Document(s ) POIKILOCYTOSIS [facility] ID Date Data Source [id number] 11/28/2019 [facility] Name Value Range Interpretation Description Data Sup porting Code Source(s) Document(s ) Eosinophils 0.27 [facility] [#/volume] in 10*3/uL Hospital Blood by Manual count ID Date Data Source [id number] 11/28/2019 08:18:00 AM EDT [facility] Name Value Range Interpretation Description Data Sup porting Code Source(s) Document(s ) Monocytes 0.30 [facility] [#/volume] in 10*3/uL Hospital Blood by Manual count ID Date Data Source [id number] 11/28/2019 08:18:00 AM EDT [facility] Name Value Range Interpretation Description Data Sup porting Code Source(s) Document(s ) Lymphocytes 1.71 [facility] [#/volume] in 10*3/uL Hospital Blood by Manual count ID Date Data Source [id number] 11/28/2019 08:18:00 AM EDT [facility] Value Range Interpretation Description Data Sup porting Code Source(s) Document(s ) Neutrophils 1.52 [facility] [#/volume] in 10*3/uL Hospital Blood by Manual count ID Date Data Source [id number] 11/28/2019 08:18:00 AM EDT [facility] Value Range Interpretation Description Data Sup porting Code Source(s) Document(s ) Eosinophils/100 7 % [facility] leukocytes in Hospital Blood by Manual count ID Date Data Source [id number] 11/28/2019 08:18:00 AM EDT [facility] Value Range Interpretation Description Data Sup porting Code Source(s) Document(s ) Monocytes/100 8 % [facility] leukocytes in Hospital Blood by Manual count ID Date Data Source [id number] 11/28/2019 08:18:00 AM EDT [facility] Value Range Interpretation Description Data Sup porting Code Source(s) Document(s ) Lymphocytes/100 45 % [facility] leukocytes in Hospital Blood by Manual count ID Date Data Source [id number] 11/28/2019 08:18:00 AM EDT [facility] Name Value Range Interpretation Description Data Sup porting Code Source(s) Document(s ) Neutrophils/100 40 % [facility] leukocytes in Hospital Blood by Manual count ID Date Data Source [id number] 11/28/2019 08:18:00 AM EDT [facility] NEUT VACUOLES PRESENT Name Value Range Interpretation Code Description Data Supporting Source(s) Document(s ) WBC COMMENT PRESENT [facility] ID Date Data Source [id number] 11/28/2019 08:18:00 AM EDT [facility] Name Value Range Interpretation Code Description Data Bryanna rce(s) Supporting Document(s ) TARGET CELLS [facility] ID Date Data Source [id number] 11/28/2019 08:18:00 AM EDT [facility] Value Range Interpretation Description Data Sup porting Code Source(s) Document(s ) POIKILOCYTOSIS OCC [facility] ID Date Data Source [id number] 11/27/2019 09:23:00 PM EDT [facility] Name Value Range Interpretation Description Data Sup porting Code Source(s) Document(s ) GLUCOSE RN Notified [facility] Hospital ID Date Data Source [id number] 11/27/2019 08:25:00 AM EDT [facility] Name Value Range Interpretation Description Data Sup porting Code Source(s) Document(s ) Bilirubin.d 0.3 mg/dL [facility] [Mass/volum e] in Serum or Plasma ID Date Data Source [id number] 11/27/2019 08:25:00 AM EDT [facility] Name Value Range Interpretation Description Data Sup porting Code Source(s) Document(s ) Phosphate 4.5 mg/dL [facility] [Mass/volume] Hospital in Serum or Plasma ID Date Data Source [id number] 11/27/2019 08:25:00 AM EDT [facility] Name Value Range Interpretation Description Data Sup porting Code Source(s) Document(s ) Magnesium 1.9 mg/dL [facility] [Mass/volume] Hospital in Serum or Plasma ID Date Data Source [id number] 11/27/2019 08:25:00 AM EDT [facility] Name Value Range Interpretation Description Data Sup porting Code Source(s) Document(s ) Bilirubin.d 0.3 mg/dL [facility] [Mass/volum e] in Serum or Plasma ID Date Data Source [id number] 11/27/2019 08:25:00 AM EDT [facility] Name Value Range Interpretation Code Description Data Supporting Source(s) Document(s ) NUCLEATED RBCS 0.0 % [facility] (AUTO Hospital DIFF%)DIS ID Date Data Source [id number] 11/27/2019 08:25:00 AM EDT [facility] Name Value Range Interpretation Description Data Sup porting Code Source(s) Document(s ) Differential AUTOMATED [facility] cell count Hospital method - Blood ID Date Data Source [id number] 11/27/2019 08[facility] Name Value Range Interpretation Description Data Sup porting Code Source(s) Document(s ) Immature 0.01 [facility] granulocytes 10*3/uL Hospital [#/volume] in Blood by Automated count ID Date Data Source [id number] 11/27/2019 08:25:00 AM EDT [facility] Name Value Range Interpretation Description Data Sup porting Code Source(s) Document(s ) Basophils 0.04 [facility] [#/volume] in 10*3/uL Hospital Blood by Automated count ID Date Data Source [id number] 11/27/2019 08:25:00 AM EDT [facility] Name Value Range Interpretation Description Data Sup porting Code Source(s) Document(s ) Eosinophils 0.11 [facility] [#/volume] in 10*3/uL Hospital Blood by Automated count ID Date Data Source [id number] 11/27/2019 08:25:00 AM EDT [facility] Value Range Interpretation Description Data Sup porting Code Source(s) Document(s ) Monocytes 0.51 [facility] [#/volume] in 10*3/uL Hospital Blood by Automated count ID Date Data Source [id number] 11/27/2019 08:25:00 AM EDT [facility] Value Range Interpretation Description Data Sup porting Code Source(s) Document(s ) Lymphocytes 2.18 [facility] [#/volume] in 10*3/uL Hospital Blood by Automated count ID Date Data Source [id number] 11/27/2019 08:25:00 AM EDT [facility] Value Range Interpretation Description Data Sup porting Code Source(s) Document(s ) Neutrophils 1.65 [facility] [#/volume] in 10*3/uL Hospital Blood by Automated count ID Date Data Source [id number] 11/27/2019 08:25:00 AM EDT [facility] Value Range Interpretation Description Data Sup porting Code Source(s) Document(s ) Nucleated 0.0 % [facility] erythrocytes/10 Hospital 0 leukocytes [Ratio] in Blood by Automated count ID Date Data Source [id number] 11/27/2019 08:25:00 AM EDT [facility] Value Range Interpretation Description Data Sup porting Code Source(s) Document(s ) Immature 0.2 % [facility] granulocytes/10 Hospital 0 leukocytes in Blood by Automated count ID Date Data Source [id number] 11/27/2019 08:25:00 AM EDT [facility] Name Value Range Interpretation Description Data Sup porting Code Source(s) Document(s ) Basophils/100 0.9 % [facility] leukocytes in Hospital Blood by Automated count ID Date Data Source [id number] 11/27/2019 08:25:00 AM EDT [facility] Name Value Range Interpretation Description Data Sup porting Code Source(s) Document(s ) Eosinophils/100 2.4 % [facility] leukocytes in Hospital Blood by Automated count ID Date Data Source [id number] 11/27/2019 08:25:00 AM EDT [facility] Name Value Range Interpretation Description Data Sup porting Code Source(s) Document(s ) Monocytes/100 11.3 % [facility] leukocytes in Hospital Blood by Automated count ID Date Data Source [id number] 11/27/2019 08:25:00 AM EDT [facility] Name Value Range Interpretation Description Data Sup porting Code Source(s) Document(s ) Lymphocytes/10 48.4 % [facility] 0 leukocytes Hospital in Blood by Automated count ID Date Data Source [id number] 11/27/2019 08:25:00 AM EDT [facility] Value Range Interpretation Description Data Sup porting Code Source(s) Document(s ) Neutrophils/10 36.8 % [facility] 0 leukocytes Hospital in Blood by Automated count ID Date Data Source [id number] 11/27/2019 08:25:00 AM EDT [facility] Name Value Range Interpretation Description Data Sup porting Code Source(s) Document(s ) Phosphate 4.5 mg/dL [facility] [Mass/volume] Hospital in Serum or Plasma ID Date Data Source [id number] 11/27/2019 08:25:00 AM EDT [facility] Name Value Range Interpretation Description Data Sup porting Code Source(s) Document(s ) Magnesium 1.9 mg/dL [facility] [Mass/volume] Hospital in Serum or Plasma ID Date Data Source [id number] 11/27/2019 08:25:00 AM [facility] Name Value Range Interpretation Description Data Sup porting Code Source(s) Document(s ) Bilirubin.d 0.3 mg/dL [facility] Hospital [Mass/volum e] in Serum or Plasma ID Date Data Source [id number] 11/26/2019 12:00:00 AM [facility] REFERENCE RANGES: NONE DETECTED <20 MG/DL NONE TO MILD EUPHORIA 20-49 MG/DL MILD EUPHORIA 50-99 MG/DL MODERATE EUPHORIA 100-149 MG/DL INTOXICATION 150-300 MG/DL Name Value Range Interpretation Description Data Sup porting Code Source(s) Document(s ) Ethanol < 20 [facility] [Mass/volume mg/dL Hospital ] in Serum or Plasma ID Date Data Source [id number] 11/21/2019 02:23:00 AM [facility] NOTIFICATION AND READ BACK OF CRITICAL R ESULTS TO Jesse Mckeon RN 3F AT 0255 ON 11/21/19 BY Ronn Salinas.REPORTED CRITICAL VALUES SHOULD BE INTERPRETED WITHIN CLINICAL CONTEXT. Name Value Range Interpretation Description Data Sup porting Code Source(s) Document(s ) Lactate 2.9 [facility] [Moles/volum mmol/L Hospital e] in Serum or Plasma ID Date Data Source [id number] 11/21/2019 02:23:00 AM [facility] NOTIFICATION AND READ BACK OF CRITICAL R ESULTS TO Jesse Mckeon RN 3F AT 0255 ON 11/21/19 BY Ronn Salinas.REPORTED CRITICAL VALUES SHOULD BE INTERPRETED WITHIN CLINICAL CONTEXT. Name Value Range Interpretation Description Data Sup porting Code Source(s) Document(s ) Lactate 2.9 [facility] [Moles/volum mmol/L Hospital e] in Serum or Plasma ID Date Data Source [id number] 11/21/2019 02:23:00 AM [facility] NOTIFICATION AND READ BACK OF CRITICAL R ESULTS TO Jesse Mckeon RN 3F AT 0255 ON 11/21/19 BY Ronngilda Salinas.REPORTED CRITICAL VALUES SHOULD BE INTERPRETED WITHIN CLINICAL CONTEXT. Name Value Range Interpretation Description Data Sup porting Code Source(s) Document(s ) Lactate 2.9 [facility] [Moles/volum mmol/L Hospital e] in Serum or Plasma ID Date Data Source [id number] 11/20/2019 09:54:00 PM [facility] ADA RECOMMENDATIONS: NON-DIABETES: 4.0-6.0% CONTROLLED DIABETES: 6.0-8.0% UNCONTROLLED DIABETE S: UP TO 20%RECOMMENDED ADA RESULT FOR THERAPY: HEMOGLOBIN A1C RESULT LESS GM N 7%.NOTE: METHOD CHANGE EFFECTIVE 11/11/14. Name Value Range Interpretation Description Data Sup porting Code Source(s) Document(s ) Hemoglobin 11.2 % [facility] A1c/Hemoglobin [facility] .total in Blood ID Date Data Source [id number] 11/20/2019 09:54:00 PM [facility] ADA RECOMMENDATIONS: NON-DIABETES: 4.0-6.0% CONTROLLED DIABETES: 6.0-8.0% UNCONTROLLED DIABETE S: UP TO 20%RECOMMENDED ADA RESULT FOR THERAPY: HEMOGLOBIN A1C RESULT LESS GM N 7%.NOTE: METHOD CHANGE EFFECTIVE 11/11/14. Name Value Range Interpretation Description Data Sup porting Code Source(s) Document(s ) Hemoglobin 11.2 % [facility] A1c/Hemoglobin [facility] .total in Blood ID Date Data Source [id number] 11/20/2019 09:54:00 PM [facility] TEST PERFORMED BY [facility] [facility] [employer] CHEMILUMINESCENCE METHOD. Name Value Range Interpretation Description Data Sup porting Code Source(s) Document(s ) Troponin 0.02 [facility] I.cardiac ng/mL Hospital [Mass/volume ] in Serum or Plasma ID Date Data Source [id number] [facility]:UNFRACTIONATED HEPARI N THERAPY: 60-90 SECONDSARGATROBAN THERAPY: 49-99 SECONDS Name Value Range Interpretation Description Data Sup porting Code Source(s) Document(s ) aPTT in 29.6 s [facility] Platelet poor [facility] plasma by Coagulation assay ID Date Data Source [id number] 11/20/2019 09:54:00 PM [facility] THERAPEUTIC RANGE FOR STANDARD ORALANTIC OAGULANT THERAPY: 2.0-3.0THERAPEUTIC RANGE FOR HIGH DOSE ORALANTICOAGULANT THERAPY (MECHANICAL HEARTVALVE REPLACEMENT): 2.5-3.5 Name Value Range Interpretation Description Data Sup porting Code Source(s) Document(s ) INR in Platelet 0.9 [facility] poor plasma by Hospital Coagulation assay ID Date Data Source [id number] 11/20/2019 09:54:00 PM [facility] Name Value Range Interpretation Description Data Sup porting Code Source(s) Document(s ) PT panel - 11.1 s [facility] Platelet poor [facility] plasma by Coagulation assay ID Date Data Source [id number] 11/20/2019 09:54:00 PM [facility] ADA RECOMMENDATIONS: NON-DIABETES: 4.0-6.0% CONTROLLED DIABETES: 6.0-8.0% UNCONTROLLED DIABETE S: UP TO 20%RECOMMENDED ADA RESULT FOR THERAPY: HEMOGLOBIN A1C RESULT LESS GM N 7%.NOTE: METHOD CHANGE EFFECTIVE 11/11/14. Name Value Range Interpretation Description Data Sup porting Code Source(s) Document(s ) Hemoglobin 11.2 % [facility] A1c/Hemoglobin [facility] .total in Blood ID Date Data Source [id number] 11/20/2019 08:15:00 PM [facility] Name Value Range Interpretation Code Description Data Bryanna rce(s) Supporting Document(s ) READ BACK Yes/ [facility] ID Date Data Source [id number] 11/20/2019 08:15:00 PM EDT [facility] Name Value Range Interpretation Code Description Data Bryanna rce(s) Supporting Document(s ) NOTE WHO DR BARRETT [facility] ID Date Data Source [id number] 11/20/2019 08:15:00 PM EDT [facility] Name Value Range Interpretation Description Data Sup porting Code Source(s) Document(s ) IONIZED 1.10 [facility] CALCIUM mmol/L Hospital ID Date Data Source [id number] 11/20/2019 08:15:00 PM EDT [facility] QUES Name Value Range Interpretation Code Description Data Supporting Source(s) Document(s ) METHEMOGLOBIN % [facility] ID Date Data Source [id number] 11/20/2019 08:15:00 PM EDT [facility] QUES Name Value Range Interpretation Description Data Sup porting Code Source(s) Document(s ) CARBOXYHEMOGLOBIN % [facility] ID Date Data Source [id number] 11/20/2019 08:15:00 PM EDT [facility] Name Value Range Interpretation Code Description Data Bryanna rce(s) Supporting Document(s ) ABG TEMP 98.0 [facility] ID Date Data Source [id number] 11/20/2019 08:15:00 PM EDT [facility] Name Value Range Interpretation Code Description Data Bryanna rce(s) Supporting Document(s ) FIO2 21 % [facility] ID Date Data Source [id number] 11/20/2019 08:15:00 PM EDT [facility] Name Value Range Interpretation Code Description Data Bryanna rce(s) Supporting Document(s ) ABG BE -8.3 mmol/L [facility] ID Date Data Source [id number] 11/20/2019 08:15:00 PM EDT [facility] Value Range Interpretation Code Description Data Bryanna rce(s) Supporting Document(s ) ABG HCO3 18 mmol/L [facility] ID Date Data Source [id number] 11/20/2019 08:15:00 PM EDT [facility] Value Range Interpretation Code Description Data Bryanna rce(s) Supporting Document(s ) ABG PO2 18 mm[Hg] [facility] ID Date Data Source [id number] 11/20/2019 08:15:00 PM EDT [facility] Value Range Interpretation Code Description Data Bryanna rce(s) Supporting Document(s ) ABG PCO2 41 mm[Hg] [facility] ID Date Data Source [id number] 11/20/2019 08:15:00 PM EDT [facility] Value Range Interpretation Code Description Data Bryanna rce(s) Supporting Document(s ) ABG PH 7.27 [facility] ID Date Data Source [id number] 11/20/2019 08:15:00 PM EDT [facility] Value Range Interpretation Code Description Data Bryanna rce(s) Supporting Document(s ) JORGE TEST POSITIVE [facility] ID Date Data Source [id number] 11/20/2019 08:15:00 PM EDT [facility] Value Range Interpretation Code Description Data Bryanna rce(s) Supporting Document(s ) READ BACK Yes/ [facility] ID Date Data Source [id number] 11/20/2019 08:15:00 PM EDT [facility] Value Range Interpretation Code Description Data Bryanna rce(s) Supporting Document(s ) NOTE WHO DR BARRETT [facility] ID Date Data Source [id number] 11/20/2019 08:15:00 PM EDT [facility] Name Value Range Interpretation Description Data Sup porting Code Source(s) Document(s ) IONIZED 1.10 [facility] CALCIUM mmol/L Hospital ID Date Data Source [id number] 11/20/2019 08:15:00 PM EDT [facility] Name Value Range Interpretation Code Description Data Supporting Source(s) Document(s ) METHEMOGLOBIN % [facility] ID Date Data Source [id number] 11/20/2019 08:15:00 PM EDT [facility] Name Value Range Interpretation Description Data Sup porting Code Source(s) Document(s ) CARBOXYHEMOGLOBIN % [facility] ID Date Data Source [id number] 11/20/2019 08:15:00 PM EDT [facility] Name Value Range Interpretation Code Description Data Bryanna rce(s) Supporting Document(s ) ABG TEMP 98.0 [facility] ID Date Data Source [id number] 11/20/2019 08:15:00 PM EDT [facility] Value Range Interpretation Code Description Data Bryanna rce(s) Supporting Document(s ) FIO2 21 % [facility] ID Date Data Source [id number] 11/20/2019 08:15:00 PM EDT [facility] Name Value Range Interpretation Code Description Data Bryanna rce(s) Supporting Document(s ) ABG BE -8.3 mmol/L [facility] ID Date Data Source [id number] 11/20/2019 08:15:00 PM EDT [facility] Value Range Interpretation Code Description Data Bryanna rce(s) Supporting Document(s ) ABG HCO3 18 mmol/L [facility] ID Date Data Source [id number] 11/20/2019 08:15:00 PM EDT [facility] Name Value Range Interpretation Code Description Data Bryanna rce(s) Supporting Document(s ) ABG PO2 18 mm[Hg] [facility] ID Date Data Source [id number] 11/20/2019 08:15:00 PM EDT [facility] Name Value Range Interpretation Code Description Data Bryanna rce(s) Supporting Document(s ) ABG PCO2 41 mm[Hg] [facility] ID Date Data Source [id number] 11/20/2019 08:15:00 PM EDT [facility] Value Range Interpretation Code Description Data Bryanna rce(s) Supporting Document(s ) ABG PH 7.27 [facility] ID Date Data Source [id number] 11/20/2019 08:15:00 PM EDT [facility] Value Range Interpretation Code Description Data Bryanna rce(s) Supporting Document(s ) JORGE TEST POSITIVE [facility] ID Date Data Source [id number] 11/20/2019 09:39:00 AM EDT [facility] Value Range Interpretation Description Data Sup porting Code Source(s) Document(s ) Leukocyte NEGATIVE [facility] esterase [facility] [Presence] in Urine by Test strip ID Date Data Source [id number] 11/20/2019 09:39:00 AM EDT [facility] Value Range Interpretation Description Data Sup porting Code Source(s) Document(s ) URINE NEGATIVE [facility] NITRITE Hospital ID Date Data Source [id number] 11/20/2019 09:39:00 AM EDT [facility] Value Range Interpretation Description Data Sup porting Code Source(s) Document(s ) Erythrocytes NEGATIVE [facility] [#/volume] in Hospital Urine by Test strip ID Date Data Source [id number] 11/20/2019 09:39:00 AM EDT [facility] Name Value Range Interpretation Code Description Data Bryanna rce(s) Supporting Document(s ) Bilirubin. NEGATIVE [facility] total Hospital [Presence] in Urine by Test strip ID Date Data Source [id number] 11/20/2019 09:39:00 AM EDT [facility] Name Value Range Interpretation Description Data Sup porting Code Source(s) Document(s ) Urobilinogen 1.0 [facility] [Units/volume] mg/dL Hospital in Urine by Test strip ID Date Data Source [id number] 11/20/2019 09:39:00 AM EDT [facility] Value Range Interpretation Description Data Sup porting Code Source(s) Document(s ) Ketones NEGATIVE [facility] [Mass/volume Hospital ] in Urine by Test strip ID Date Data Source [id number] 11/20/2019 09:39:00 AM EDT [facility] Value Range Interpretation Code Description Data Bryanna rce(s) Supporting Document(s ) Glucose 3+ [facility] [Mass/volume Hospital ] in Urine by Test strip ID Date Data Source [id number] 11/20/2019 09:39:00 AM EDT [facility] Name Value Range Interpretation Description Data Sup porting Code Source(s) Document(s ) Protein NEGATIVE [facility] [Presence] Hospital in Urine by Test strip ID Date Data Source [id number] 11/20/2019 09:39:00 AM EDT [facility] Value Range Interpretation Code Description Data Bryanna rce(s) Supporting Document(s ) pH of Urine 6.0 [facility] by Test Hospital strip ID Date Data Source [id number] 11/20/2019 09:39:00 AM [facility] Name Value Range Interpretation Code Description Data Supporting Source(s) Document(s ) Specific 1.029 [facility] gravity of Hospital Urine by Test strip ID Date Data Source [id number] 11/20/2019 09:39:00 AM [facility] Name Value Range Interpretation Description Data Sup porting Code Source(s) Document(s ) Clarity in Urine CLEAR [facility] by Refractometry [facility] automated ID Date Data Source [id number] 11/20/2019 09:39:00 AM [facility] Name Value Range Interpretation Code Description Data Bryanna rce(s) Supporting Document(s ) Color of YELLOW [facility] Urine Hospital ID Date Data Source [id number] 10/26/2019 05:07:00 AM [facility] Name Value Range Interpretation Description Data Sup porting Code Source(s) Document(s ) Arthropoda CIMEX [facility] (BED BUG) Hospital ID Date Data Source [id number] 10/26/2019 03:50:00 AM [facility] TEST PERFORMED BY [facility] [facility] CHEMILUMINESCENCE METHOD. Name Value Range Interpretation Description Data Sup porting Code Source(s) Document(s ) Troponin < 0.01 [facility] I.cardiac ng/mL Hospital [Mass/volume ] in Serum or Plasma ID Date Data Source [id number] 10/26/2019 03:50:00 AM [facility] NOTIFICATION AND READ BACK OF CRITICAL R ESULTS TO OF AT 0441 ON 10/26/19 BY Jeri Iraheta.REPORTED CRITICAL VALUES SHOULD BE INTERPRETED WITHIN CLINICAL CONTEXT. Name Value Range Interpretation Description Data Sup porting Code Source(s) Document(s ) Ammonia 56 mmol/L [facility] [Moles/volum Hospital e] in Plasma ID Date Data Source [id number] 10/26/2019 03:50:00 AM EDT [facility] Name Value Range Interpretation Description Data Sup porting Code Source(s) Document(s ) Aspartate 136 U/L [facility] aminotransferase [place] [Enzymatic Hospital activity/volume] in Serum or Plasma ID Date Data Source [id number] 10/26/2019 03:50:00 AM EDT [facility] Name Value Range Interpretation Description Data Sup porting Code Source(s) Document(s ) Alanine 48 U/L [facility] aminotransferase [place] [Enzymatic Hospital activity/volume] in Serum or Plasma ID Date Data Source [id number] 10/26/2019 03:50:00 AM EDT [facility] Name Value Range Interpretation Description Data Sup porting Code Source(s) Document(s ) Alkaline 71 U/L [facility] phosphatase Hospital [Enzymatic activity/volume ] in Serum or Plasma ID Date Data Source [id number] 10/26/2019 03:50:00 AM EDT [facility] Name Value Range Interpretation Description Data Sup porting Code Source(s) Document(s ) Bilirubin.t 1.0 mg/dL [facility] [Mass/volum e] in Serum or Plasma ID Date Data Source [id number] 10/26/2019 03:50:00 AM EDT [facility] Name Value Range Interpretation Code Description Data Bryanna rce(s) Supporting Document(s ) Albumin/Glob 1.5 [facility] ulin [Mass Hospital Ratio] in Serum or Plasma ID Date Data Source [id number] 10/[facility]2019 [facility] Interpretation Description Data Sup porting Code Source(s) Document(s ) Albumin 4.5 g/dL [facility] [Mass/volume Hospital ] in Serum or Plasma ID Date Data Source [id number] 10/26/2019 03:50:00 AM EDT [facility] Name Value Range Interpretation Description Data Sup porting Code Source(s) Document(s ) Protein 7.6 g/dL [facility] [Mass/volume Hospital ] in Serum or Plasma ID Date Data Source [id number] 10/26/2019 03:50:00 AM EDT [facility] Name Value Range Interpretation Description Data Sup porting Code Source(s) Document(s ) Calcium 8.8 mg/dL [facility] [Mass/volume Hospital ] in Serum or Plasma ID Date Data Source [id number] 10/26/2019 03:50:00 AM EDT [facility] Name Value Range Interpretation Code Description Data Bryanna rce(s) Supporting Document(s ) Urea 11.1 [facility] nitrogen/Cre Hospital atinine [Mass Ratio] in Serum or Plasma ID Date Data Source [id number] 10/26/2019 03:50:00 AM EDT [facility] Name Value Range Interpretation Description Data Sup porting Code Source(s) Document(s ) Creatinine 0.9 mg/dL [facility] [Mass/volume] Hospital in Serum or Plasma ID Date Data Source [id number] 10/26/2019 03:50:00 AM EDT [facility] Name Value Range Interpretation Description Data Sup porting Code Source(s) Document(s ) Urea 10 mg/dL [facility] nitrogen Hospital [Mass/volume ] in Serum or Plasma ID Date Data Source [id number] 10/26/2019 03:50:00 AM EDT [facility] Name Value Range Interpretation Description Data Sup porting Code Source(s) Document(s ) Carbon 26 mmol/L [facility] dioxide, Hospital total [Moles/volu me] in Serum or Plasma ID Date Data Source [id number] 10/26/2019 03:50:00 AM EDT [facility] Name Value Range Interpretation Description Data Sup porting Code Source(s) Document(s ) Chloride 99 mmol/L [facility] [Moles/volum Hospital e] in Serum or Plasma ID Date Data Source [id number] 10/26/2019 03:50:00 AM EDT [facility] GROSSLY HEMOLYSED Name Value Range Interpretation Description Data Sup porting Code Source(s) Document(s ) Potassium mmol/L [facility] [Moles/volume] Hospital in Serum or Plasma ID Date Data Source [id number] 10/26/2019 03:50:00 AM EDT [facility] Name Value Range Interpretation Description Data Sup porting Code Source(s) Document(s ) Sodium 132 mmol/L [facility] [Moles/volu Hospital me] in Serum or Plasma ID Date Data Source [id number] 10/26/2019 03:50:00 AM EDT [facility] Name Value Range Interpretation Description Data Sup porting Code Source(s) Document(s ) Glucose 247 mg/dL [facility] [Mass/volume Hospital ] in Serum or Plasma ID Date Data Source [id number] 10/26/2019 03:50:00 AM EDT [facility] Name Value Range Interpretation Code Description Data Supporting Source(s) Document(s ) NUCLEATED RBCS 0.0 % [facility] (AUTO Hospital DIFF%)DIS ID Date Data Source [id number] 10/26/2019 03:50:00 AM EDT [facility] Name Value Range Interpretation Description Data Sup porting Code Source(s) Document(s ) Differential AUTOMATED [facility] cell count Hospital method - Blood ID Date Data Source [id number] 10/26/2019 03:50:00 AM EDT [facility] Name Value Range Interpretation Description Data Sup porting Code Source(s) Document(s ) Immature 0.01 [facility] granulocytes 10*3/uL Hospital [#/volume] in Blood by Automated count ID Date Data Source [id number] 10/26/2019 03:50:00 AM EDT [facility] Name Value Range Interpretation Description Data Sup porting Code Source(s) Document(s ) Basophils 0.04 [facility] [#/volume] in 10*3/uL Hospital Blood by Automated count ID Date Data Source [id number] 10/26/2019 03:50:00 AM EDT [facility] Name Value Range Interpretation Description Data Sup porting Code Source(s) Document(s ) Eosinophils 0.28 [facility] [#/volume] in 10*3/uL Hospital Blood by Automated count ID Date Data Source [id number] 10/26/2019 03:50:00 AM EDT [facility] Value Range Interpretation Description Data Sup porting Code Source(s) Document(s ) Monocytes 0.50 [facility] [#/volume] in 10*3/uL Hospital Blood by Automated count ID Date Data Source [id number] 10/26/2019 03:50:00 AM EDT [facility] Value Range Interpretation Description Data Sup porting Code Source(s) Document(s ) Lymphocytes 2.29 [facility] [#/volume] in 10*3/uL Hospital Blood by Automated count ID Date Data Source [id number] 10/26/2019 03:50:00 AM EDT [facility] Name Value Range Interpretation Description Data Sup porting Code Source(s) Document(s ) Neutrophils 1.54 [facility] [#/volume] in 10*3/uL Hospital Blood by Automated count ID Date Data Source [id number] 10/26/2019 03:50:00 AM EDT [facility] Name Value Range Interpretation Description Data Sup porting Code Source(s) Document(s ) Nucleated 0.0 % [facility] erythrocytes/10 Hospital 0 leukocytes [Ratio] in Blood by Automated count ID Date Data Source [id number] 10/26/2019 03:50:00 AM EDT [facility] Value Range Interpretation Description Data Sup porting Code Source(s) Document(s ) Immature 0.2 % [facility] granulocytes/10 Hospital 0 leukocytes in Blood by Automated count ID Date Data Source [id number] 10/26/2019 03:50:00 AM EDT [facility] Value Range Interpretation Description Data Sup porting Code Source(s) Document(s ) Basophils/100 0.9 % [facility] leukocytes in Hospital Blood by Automated count ID Date Data Source [id number] 10/26/2019 03:50:00 AM EDT [facility] Value Range Interpretation Description Data Sup porting Code Source(s) Document(s ) Eosinophils/100 6.0 % [facility] leukocytes in Hospital Blood by Automated count ID Date Data Source [id number] 10/26/2019 03:50:00 AM EDT [facility] Value Range Interpretation Description Data Sup porting Code Source(s) Document(s ) Monocytes/100 10.7 % [facility] leukocytes in Hospital Blood by Automated count ID Date Data Source [id number] 10/26/2019 03:50:00 AM EDT [facility] Name Value Range Interpretation Description Data Sup porting Code Source(s) Document(s ) Lymphocytes/10 49.1 % [facility] 0 leukocytes Hospital in Blood by Automated count ID Date Data Source [id number] 10/26/2019 03:50:00 AM EDT [facility] Value Range Interpretation Description Data Sup porting Code Source(s) Document(s ) Neutrophils/10 33.1 % [facility] 0 leukocytes Hospital in Blood by Automated count ID Date Data Source [id number] 10/26/2019 03:50:00 AM [facility] PLATELET CLUMPS NOTED ON PERIPHERAL SMEA R- PLT COUNT MAY NOT BE ACCURATE Name Value Range Interpretation Description Data Sup porting Code Source(s) Document(s ) Platelets 105 [facility] [#/volume] in 10*3/uL Hospital Blood by Automated count ID Date Data Source [id number] 10/26/2019 03:50:00 AM [facility] Name Value Range Interpretation Description Data Sup porting Code Source(s) Document(s ) Erythrocyte 12.7 % [facility] width [Ratio] by Automated count ID Date Data Source [id number] 10/26/2019 03:50:00 AM [facility] Name Value Range Interpretation Description Data Sup porting Code Source(s) Document(s ) Erythrocyte mean 34.1 [facility] corpuscular g/dL Hospital hemoglobin concentration [Mass/volume] by Automated count ID Date Data Source [id number] 10/26/2019 03:50:00 AM [facility] Value Range Interpretation Description Data Sup porting Code Source(s) Document(s ) Erythrocyte 29.9 pg [facility] corpuscular hemoglobin [Entitic mass] by Automated count ID Date Data Source [id number] 10/26/2019 03:50:00 AM [facility] Name Value Range Interpretation Description Data Sup porting Code Source(s) Document(s ) Erythrocyte 87.4 fL [facility] corpuscular volume [Entitic volume] by Automated count ID Date Data Source [id number] 10/26/2019 03:50:00 AM [facility] Value Range Interpretation Description Data Sup porting Code Source(s) Document(s ) Hematocrit 41.0 % [facility] [Volume Hospital Fraction] of Blood by Automated count ID Date Data Source [id number] 10/26/2019 03:50:00 AM EDT [facility] Name Value Range Interpretation Description Data Sup porting Code Source(s) Document(s ) Hemoglobin 14.0 g/dL [facility] [Mass/volume] Hospital in Blood ID Date Data Source [id number] 10/26/2019 03:50:00 AM EDT [facility] Name Value Range Interpretation Description Data Sup porting Code Source(s) Document(s ) Erythrocytes 4.69 [facility] [#/volume] in 10*6/uL Hospital Blood by Automated count ID Date Data Source [id number] 10/26/2019 03:50:00 AM EDT [facility] Name Value Range Interpretation Description Data Sup porting Code Source(s) Document(s ) Leukocytes 4.7 [facility] [#/volume] in 10*3/uL Hospital Blood by Automated count ID Date Data Source [id number] 10/26/2019 02:33:00 AM [facility] Manager Social Services:DEIDRA CONDON Name Value Range Interpretation Description Data Sup porting Code Source(s) Document(s ) Glucose 230 mg/dL [facility] [Mass/volume] Hospital in Capillary blood by Glucometer ID Date Data Source [id number] 06/[facility]2019 [facility]LISSA PINO Name Value Range Interpretation Description Data Sup porting Code Source(s) Document(s ) Glucose 366 mg/dL [facility] [Mass/volume] Hospital in Capillary blood by Glucometer ID Date Data Source [id number] 06/21/2019 [facility] Value Range Interpretation Code Description Data Bryanna rce(s) Supporting Document(s ) Urea 8.3 [facility] nitrogen/Cre Hospital atinine [Mass Ratio] in Serum or Plasma ID Date Data Source [id number] 06/21/2019 06:41:00 AM EDT [facility] Name Value Range Interpretation Description Data Sup porting Code Source(s) Document(s ) Creatinine 0.6 mg/dL [facility] [Mass/volume] Hospital in Serum or Plasma ID Date Data Source [id number] 06/21/2019 06:41:00 AM EDT [facility] Name Value Range Interpretation Description Data Sup porting Code Source(s) Document(s ) Urea nitrogen 5 mg/dL [facility] [Mass/volume] Hospital in Serum or Plasma ID Date Data Source [id number] 06/21/2019 06:41:00 AM EDT [facility] Value Range Interpretation Code Description Data Bryanna rce(s) Supporting Document(s ) Anion gap in 7 [facility] Serum or [facility] Plasma ID Date Data Source [id number] 06/21/2019 06:41:00 AM EDT [facility] Value Range Interpretation Description Data Sup porting Code Source(s) Document(s ) Carbon 30 mmol/L [facility] dioxide, Hospital total [Moles/volu me] in Serum or Plasma ID Date Data Source [id number] 06/21/2019 06:41:00 AM EDT [facility] Value Range Interpretation Description Data Sup porting Code Source(s) Document(s ) Chloride 108 [facility] [Moles/volum mmol/L Hospital e] in Serum or Plasma ID Date Data Source [id number] 06/21/2019 06:41:00 AM EDT [facility] Value Range Interpretation Description Data Sup porting Code Source(s) Document(s ) Potassium 3.6 [facility] [Moles/volume mmol/L Hospital ] in Serum or Plasma ID Date Data Source [id number] 06/21/2019 06:41:00 AM EDT [facility] Value Range Interpretation Description Data Sup porting Code Source(s) Document(s ) Sodium 141 mmol/L [facility] [Moles/volu Hospital mi] in Serum or Plasma ID Date Data Source [id number] 06/21/2019 06:41:00 AM EDT [facility] Value Range Interpretation Description Data Sup porting Code Source(s) Document(s ) Glucose 161 mg/dL [facility] [Mass/volume Hospital ] in Serum or Plasma ID Date Data Source [id number] 06/21/2019 06:41:00 AM EDT [facility] Value Range Interpretation Code Description Data Supporting Source(s) Document(s ) NUCLEATED RBCS 0.0 % [facility] (AUTO Hospital DIFF%)DIS ID Date Data Source [id number] 06/21/2019 06:41:00 AM EDT [facility] Value Range Interpretation Description Data Sup porting Code Source(s) Document(s ) Differential AUTOMATED [facility] cell count [facility] method - Blood ID Date Data Source [id number] 06/21/2019 06:41:00 AM EDT [facility] Value Range Interpretation Description Data Sup porting Code Source(s) Document(s ) Immature 0.01 [facility] granulocytes 10*3/uL Hospital [#/volume] in Blood by Automated count ID Date Data Source [id number] 06/21/2019 06:41:00 AM EDT [facility] Name Value Range Interpretation Description Data Sup porting Code Source(s) Document(s ) Basophils 0.05 [facility] [#/volume] in 10*3/uL Hospital Blood by Automated count ID Date Data Source [id number] 06/21/2019 06:41:00 AM EDT [facility] Name Value Range Interpretation Description Data Sup porting Code Source(s) Document(s ) Eosinophils 0.29 [facility] [#/volume] in 10*3/uL Hospital Blood by Automated count ID Date Data Source [id number] 06/21/2019 06:41:00 AM EDT [facility] Value Range Interpretation Description Data Sup porting Code Source(s) Document(s ) Monocytes 0.42 [facility] [#/volume] in 10*3/uL Hospital Blood by Automated count ID Date Data Source [id number] 06/21/2019 06:41:00 AM EDT [facility] Value Range Interpretation Description Data Sup porting Code Source(s) Document(s ) Lymphocytes 2.71 [facility] [#/volume] in 10*3/uL Hospital Blood by Automated count ID Date Data Source [id number] 06/21/2019 06:41:00 AM EDT [facility] Value Range Interpretation Description Data Sup porting Code Source(s) Document(s ) Neutrophils 0.99 [facility] [#/volume] in 10*3/uL [facility] Blood by Automated count ID Date Data Source [id number] 06/21/2019 06:41:00 AM EDT [facility] Value Range Interpretation Description Data Sup porting Code Source(s) Document(s ) Nucleated 0.0 % [facility] erythrocytes/10 Hospital 0 leukocytes [Ratio] in Blood by Automated count ID Date Data Source [id number] 06/21/2019 06:41:00 AM EDT [facility] Value Range Interpretation Description Data Sup porting Code Source(s) Document(s ) Immature 0.2 % [facility] granulocytes/10 Hospital 0 leukocytes in Blood by Automated count ID Date Data Source [id number] 06/21/2019 06:41:00 AM EDT [facility] Name Value Range Interpretation Description Data Sup porting Code Source(s) Document(s ) Basophils/100 1.1 % [facility] leukocytes in Hospital Blood by Automated count ID Date Data Source [id number] 06/21/2019 06:41:00 AM EDT [facility] Value Range Interpretation Description Data Sup porting Code Source(s) Document(s ) Eosinophils/100 6.5 % [facility] leukocytes in Hospital Blood by Automated count ID Date Data Source [id number] 06/21/2019 06:41:00 AM EDT [facility] Value Range Interpretation Description Data Sup porting Code Source(s) Document(s ) Monocytes/100 9.4 % [facility] leukocytes in [facility] Blood by Automated count ID Date Data Source [id number] 06/21/2019 06:41:00 AM EDT [facility] Value Range Interpretation Description Data Sup porting Code Source(s) Document(s ) Lymphocytes/10 60.6 % [facility] 0 leukocytes Hospital in Blood by Automated count ID Date Data Source [id number] 06/21/2019 06:41:00 AM EDT [facility] Value Range Interpretation Description Data Sup porting Code Source(s) Document(s ) Neutrophils/10 22.2 % [facility] 0 leukocytes Hospital in Blood by Automated count ID Date Data Source [id number] 06/21/2019 06:41:00 AM EDT [facility] Name Value Range Interpretation Description Data Sup porting Code Source(s) Document(s ) Platelet mean 13.0 fL [facility] volume [facility] [Entitic volume] in Blood by Automated count ID Date Data Source [id number] 06/21/2019 06:41:00 AM EDT [facility] Name Value Range Interpretation Description Data Sup porting Code Source(s) Document(s ) Platelets 132 [facility] [#/volume] in 10*3/uL Hospital Blood by Automated count ID Date Data Source [id number] 06/21/2019 06:41:00 AM EDT [facility] Value Range Interpretation Description Data Sup porting Code Source(s) Document(s ) Erythrocyte 14.6 % [facility] distribution Hospital width [Ratio] by Automated count ID Date Data Source [id number] 06/21/2019 06:41:00 AM EDT [facility] Value Range Interpretation Description Data Sup porting Code Source(s) Document(s ) Erythrocyte mean 34.9 [facility] corpuscular g/dL [facility] hemoglobin concentration [Mass/volume] by Automated count ID Date Data Source [id number] 06/21/2019 06:41:00 AM EDT [facility] Value Range Interpretation Description Data Sup porting Code Source(s) Document(s ) Erythrocyte 29.0 pg [facility] corpuscular hemoglobin [Entitic mass] by Automated count ID Date Data Source [id number] 06/21/2019 06:41:00 AM [facility] Value Range Interpretation Description Data Sup porting Code Source(s) Document(s ) Erythrocyte 83.0 fL [facility] corpuscular volume [Entitic volume] by Automated count ID Date Data Source [id number] 06/21/2019 06:41:00 AM [facility] Value Range Interpretation Description Data Sup porting Code Source(s) Document(s ) Hematocrit 33.8 % [facility] [Volume Hospital Fraction] of Blood by Automated count ID Date Data Source [id number] 06/[facility] Description Data Sup porting Code Source(s) Document(s ) Hemoglobin 11.8 g/dL [facility] [Mass/volume] Hospital in Blood ID Date Data Source [id number] 06/21/2019 06:41:00 AM [facility] Name Value Range Interpretation Description Data Sup porting Code Source(s) Document(s ) Erythrocytes 4.07 [facility] [#/volume] in 10*6/uL Hospital Blood by Automated count ID Date Data Source [id number] 06/21/2019 06:41:00 AM [facility] Name Value Range Interpretation Description Data Sup porting Code Source(s) Document(s ) Leukocytes 4.5 [facility] [#/volume] in 10*3/uL Hospital Blood by Automated count ID Date Data Source [id number] 06/21/2019 06:41:00 AM [facility] NOTIFICATION AND READ BACK OF CRITICAL R ESULTS TO MARU PINO RN 5E AT 0824 ON 06/21/19 BY Jessica Quinteros.REPORTED CR ITICAL VALUES SHOULD BE INTERPRETED WITHIN CLINICAL CONTEXT. Name Value Range Interpretation Description Data Sup porting Code Source(s) Document(s ) Ammonia 83 mmol/L [facility] [Moles/volum Hospital e] in Plasma ID Date Data Source [id number] 06/21/2019 06:41:00 AM [facility] Name Value Range Interpretation Description Data Sup porting Code Source(s) Document(s ) Aspartate 52 U/L White aminotransferase [place] [Enzymatic Hospital activity/volume] in Serum or Plasma ID Date Data Source [id number] 06/21/2019 06:41:00 AM [facility] Name Value Range Interpretation Description Data Sup porting Code Source(s) Document(s ) Alanine 30 U/L [facility] aminotransferase [place] [Enzymatic Hospital activity/volume] in Serum or Plasma ID Date Data Source [id number] 06/21/2019 06:41:00 AM EDT [facility] Name Value Range Interpretation Description Data Sup porting Code Source(s) Document(s ) Alkaline 72 U/L [facility] phosphatase [facility] [Enzymatic activity/volume ] in Serum or Plasma ID Date Data Source [id number] 06/21/2019 06:41:00 AM EDT [facility] Name Value Range Interpretation Description Data Sup porting Code Source(s) Document(s ) Bilirubin.t 1.3 mg/dL [facility] [Mass/volum e] in Serum or Plasma ID Date Data Source [id number] 06/21/2019 [facility]:41[facility] Value Range Interpretation Code Description Data Bryanna rce(s) Supporting Document(s ) Albumin/Glob 1.1 [facility] [Mass [facility] Ratio] in Serum or Plasma ID Date Data Source [id number] 06/21/2019 06:41:00 AM EDT [facility] Name Value Range Interpretation Description Data Sup porting Code Source(s) Document(s ) Albumin 2.7 g/dL [facility] [Mass/volume Hospital ] in Serum or Plasma ID Date Data Source [id number] 06/21/2019 06:41:00 AM EDT [facility] Name Value Range Interpretation Description Data Sup porting Code Source(s) Document(s ) Protein 5.2 g/dL [facility] [Mass/volume Hospital ] in Serum or Plasma ID Date Data Source [id number] 06/21/2019 06:41:[facility] Name Value Range Interpretation Description Data Sup porting Code Source(s) Document(s ) Calcium 7.9 mg/dL [facility] [Mass/volume Hospital ] in Serum or Plasma ID Date Data Source [id number] 06/19/2019 08:19:00 AM EST [facility] Name Value Range Interpretation Description Data Sup porting Code Source(s) Document(s ) Magnesium 1.7 mg/dL [facility] [Mass/volume] Hospital in Serum or Plasma ID Date Data Source [id number] 06/17/2019 11:38:00 PM EST [facility] Value Range Interpretation Description Data Sup porting Code Source(s) Document(s ) Lactate 1.9 [facility] [Moles/volum mmol/L Hospital e] in Serum or Plasma ID Date Data Source [id number] 06/17/2019 08:02:00 PM EST [facility] Value Range Interpretation Code Description Data Bryanna rce(s) Supporting Document(s ) ABG TEMP 98.0 [facility] ID Date Data Source [id number] 06/17/2019 08:02:00 PM EST [facility] Value Range Interpretation Code Description Data Bryanna rce(s) Supporting Document(s ) FIO2 21 [facility] ID Date Data Source [id number] 06/17/2019 08:02:00 PM EST [facility] Value Range Interpretation Code Description Data Bryanna rce(s) Supporting Document(s ) ABG BE -6.0 [facility] ID Date Data Source [id number] 06/17/2019 08:02:00 PM [facility] Value Range Interpretation Code Description Data Bryanna rce(s) Supporting Document(s ) ABG O2SAT 96 % [facility] ID Date Data Source [id number] 06/17/2019 08:02:00 PM EST [facility] Value Range Interpretation Code Description Data Bryanna rce(s) Supporting Document(s ) ABG HCO3 19 meq/L [facility] ID Date Data Source [id number] 06/17/2019 08:02:00 PM EST [facility] Name Value Range Interpretation Code Description Data Bryanna rce(s) Supporting Document(s ) ABG PO2 86 mm[Hg] [facility] ID Date Data Source [id number] 06/17/2019 08:02:00 PM EST [facility] Name Value Range Interpretation Code Description Data Bryanna rce(s) Supporting Document(s ) ABG PCO2 35 mm[Hg] [facility] ID Date Data Source [id number] 06/17/2019 08:02:00 PM EST [facility] Name Value Range Interpretation Code Description Data Bryanna rce(s) Supporting Document(s ) ABG PH 7.36 U [facility] ID Date Data Source [id number] 06/17/2019 08:02:00 PM EST [facility] Name Value Range Interpretation Code Description Data Bryanna rce(s) Supporting Document(s ) ABG MODE RA [facility] ID Date Data Source [id number] 06/17/2019 08:02:00 PM EST [facility] Value Range Interpretation Code Description Data Bryanna rce(s) Supporting Document(s ) ABG SITE RR [facility] ID Date Data Source [id number] 06/17/2019 08:02:00 PM EST [facility] Name Value Range Interpretation Code Description Data Supporting Source(s) Document(s ) ABG SOURCE ARTERIAL [facility] ID Date Data Source [id number] 06/17/2019 08:02:00 PM EST [facility] Name Value Range Interpretation Code Description Data Bryanna rce(s) Supporting Document(s ) JORGE TEST POSITIVE [facility] ID Date Data Source [id number] 06/17/2019 07:59:00 PM [facility] TEST PERFORMED BY [employer] UL[facility] SENSIT[facility] CHEMILUMINESCENCE METHOD. Name Value Range Interpretation Description Data Sup porting Code Source(s) Document(s ) Troponin 0.02 [facility] I.cardiac ng/mL Hospital [Mass/volume ] in Serum or Plasma ID Date Data Source [id number] 06/17/2019 07:59:00 PM EST [facility] Name Value Range Interpretation Description Data Sup porting Code Source(s) Document(s ) Leukocyte NEGATIVE [facility] esterase Hospital [Presence] in Urine by Test strip ID Date Data Source [id number] 06/17/2019 07:59:00 PM [facility] Name Value Range Interpretation Description Data Sup porting Code Source(s) Document(s ) URINE NEGATIVE [facility] NITRITES Hospital ID Date Data Source [id number] 06/17/2019 07:59:00 PM [facility] Name Value Range Interpretation Description Data Sup porting Code Source(s) Document(s ) Erythrocytes NEGATIVE [facility] [#/volume] in Hospital Urine by Test strip ID Date Data Source [id number] 06/17/2019 07:59:00 PM [facility] Name Value Range Interpretation Code Description Data Bryanna rce(s) Supporting Document(s ) Bilirubin. NEGATIVE [facility] total Hospital [Presence] in Urine by Test strip ID Date Data Source [id number] 06/17/2019 07:59:00 PM [facility] Name Value Range Interpretation Description Data Sup porting Code Source(s) Document(s ) Urobilinogen 0.2 [facility] [Units/volume] mg/dL Hospital in Urine by Test strip ID Date Data Source [id number] 06/17/2019 07:59:00 PM EST [facility] Name Value Range Interpretation Code Description Data Bryanna rce(s) Supporting Document(s ) Ketones 4+ [facility] [Mass/volume Hospital ] in Urine by Test strip ID Date Data Source [id number] 06/17/2019 07:59:00 PM EST [facility] Name Value Range Interpretation Code Description Data Bryanna rce(s) Supporting Document(s ) Glucose 3+ [facility] [Mass/volume Hospital ] in Urine by Test strip ID Date Data Source [id number] 06/17/2019 07:59:00 PM EST [facility] Name Value Range Interpretation Description Data Sup porting Code Source(s) Document(s ) Protein NEGATIVE [facility] [Presence] Hospital in Urine by Test strip ID Date Data Source [id number] 06/17/2019 07:59:00 PM EST [facility] Name Value Range Interpretation Code Description Data Bryanna rce(s) Supporting Document(s ) pH of Urine 5.5 [facility] by Test Hospital strip ID Date Data Source [id number] 06/17/2019 07:59:00 PM EST [facility] Name Value Range Interpretation Code Description Data Supporting Source(s) Document(s ) Specific 1.044 [facility] gravity of Hospital Urine by Test strip ID Date Data Source [id number] 06/17/2019 07:59:00 PM EST [facility] Name Value Range Interpretation Description Data Sup porting Code Source(s) Document(s ) Clarity in Urine CLEAR [facility] by Refractometry Hospital automated ID Date Data Source [id number] 06/17/2019 07:59:00 PM EST [facility] Name Value Range Interpretation Code Description Data Bryanna rce(s) Supporting Document(s ) Color of YELLOW [facility] Urine Hospital ID Date Data Source [id number] 06/17/2019 07:59:00 PM [facility] THERAPEUTIC RANGES:UNFRACTIONATED HEPARI N THERAPY: 60-90 SECONDSARGATROBAN THERAPY: 49-99 SECONDS Name Value Range Interpretation Description Data Sup porting Code Source(s) Document(s ) aPTT in 35.5 s [facility] Platelet poor [facility] plasma by Coagulation assay ID Date Data Source [id number] 06/17/2019 07:59:00 PM [facility] THERAPEUTIC RANGE FOR STANDARD ORALANTIC OAGULANT THERAPY: 2.0-3.0THERAPEUTIC RANGE FOR HIGH DOSE ORALANTICOAGULANT THERAPY (MECHANICAL HEARTVALVE REPLACEMENT): 2.5-3.5 Name Value Range Interpretation Description Data Sup porting Code Source(s) Document(s ) INR in Platelet 1.0 [facility] poor plasma by Hospital Coagulation assay ID Date Data Source [id number] 06/17/2019 07:59:00 PM [facility] Name Value Range Interpretation Description Data Sup porting Code Source(s) Document(s ) PT panel - 10.9 s [facility] Platelet poor [facility] plasma by Coagulation assay ID Date Data Source [id number] 06/17/2019 07:30:00 PM [facility] Name Value Range Interpretation Description Data Sup porting Code Source(s) Document(s ) Bacteria No growth [facility] identified in Hospital Blood by Culture ID Date Data Source [id number] 06/17/2019 07:01:00 PM [facility] Name Value Range Interpretation Description Data Sup porting Code Source(s) Document(s ) GLUCOSE RN Notified [facility] COMMENT Hospital ID Date Data Source [id number] 05/28/2019 11:42:00 AM [facility] Name Value Range Interpretation Description Data Sup porting Code Source(s) Document(s ) GLUCOSE MD Notified [facility] Hospital ID Date Data Source [id number] 05/28/2019 11:42:00 AM [facility] Name Value Range Interpretation Description Data Sup porting Code Source(s) Document(s ) GLUCOSE MD Notified [facility] COMMENT2 Hospital ID Date Data Source [id number] 05/28/2019 11:42:00 AM [facility] Name Value Range Interpretation Description Data Sup porting Code Source(s) Document(s ) GLUCOSE To Be [facility] COMMENT Repeated Hospital ID Date Data Source [id number] 05/28/2019 11:42:00 AM [facility] Manager Social Services:JEB WASHBURN Name Value Range Interpretation Description Data Sup porting Code Source(s) Document(s ) Glucose 419 mg/dL [facility] [Mass/volume] [facility] in Capillary blood by Glucometer ID Date Data Source [id number] 05/26/2019 09:58:00 AM [facility] ADA RECOMMENDATIONS: NON-DIABETES: 4.0-6.0% CONTROLLED DIABETES: 6.0-8.0% UNCONTROLLED DIABETE S: UP TO 20%RECOMMENDED ADA RESULT FOR THERAPY: HEMOGLOBIN A1C RESULT LESS GM N 7%.NOTE: METHOD CHANGE EFFECTIVE 11/11/14. Name Value Range Interpretation Description Data Sup porting Code Source(s) Document(s ) Hemoglobin 10.7 % [facility] A1c/Hemoglobin [facility] .total in Blood ID Date Data Source [id number] 05/26/2019 09:58:00 AM [facility] Name Value Range Interpretation Description Data Sup porting Code Source(s) Document(s ) Phosphate 3.6 mg/dL [facility] [Mass/volume] [facility] in Serum or Plasma ID Date Data Source [id number] 05/26/2019 09:58:00 AM [facility] ADA RECOMMENDATIONS: NON-DIABETES: 4.0-6.0% CONTROLLED DIABETES: 6.0-8.0% UNCONTROLLED DIABETE S: UP TO 20%RECOMMENDED ADA RESULT FOR THERAPY: HEMOGLOBIN A1C RESULT LESS GM N 7%.NOTE: METHOD CHANGE EFFECTIVE 11/11/14. Name Value Range Interpretation Description Data Sup porting Code Source(s) Document(s ) Hemoglobin 10.7 % [facility] .total in Blood ID Date Data Source [id number] 05/26/2019 09:58:00 AM EST [facility] Name Value Range Interpretation Description Data Sup porting Code Source(s) Document(s ) Phosphate 3.6 mg/dL [facility] [Mass/volume] Hospital in Serum or Plasma ID Date Data Source [id number] 05/26/2019 09:58:00 AM EST [facility] Name Value Range Interpretation Description Data Sup porting Code Source(s) Document(s ) Magnesium 1.8 mg/dL [facility] [[facility] in Serum or Plasma ID Date Data Source [id number] 05/26/2019 09:58:00 AM [facility] Name Value Range Interpretation Description Data Sup porting Code Source(s) Document(s ) Calcium 8.1 mg/dL [facility] [[facility]volume [facility] ] in Serum or Plasma ID Date Data Source [id number] 05/26/2019 09:58:00 AM [facility] Name Value Range Interpretation Code Description Data Bryanna rce(s) Supporting Document(s ) Urea 17.1 [facility] nitrogen/Cre Hospital atinine [Mass Ratio] in Serum or Plasma ID Date Data Source [id number] 05/26/2019 09:58:00 AM [facility] Name Value Range Interpretation Description Data Sup porting Code Source(s) Document(s ) Creatinine 0.7 mg/dL [facility] [Mass/volume] [facility] in Serum or Plasma ID Date Data Source [id number] 05/26/2019 09:58:00 AM EST [facility] Name Value Range Interpretation Description Data Sup porting Code Source(s) Document(s ) Urea 12 mg/dL [facility] nitrogen [facility] [Mass/volume ] in Serum or Plasma ID Date Data Source [id number] 05/26/2019 09:58:00 AM EST [facility] Name Value Range Interpretation Code Description Data Bryanna rce(s) Supporting Document(s ) Anion gap in 11 [facility] Serum or Hospital Plasma ID Date Data Source [id number] 05/26/2019 09:58:00 AM EST [facility] Name Value Range Interpretation Description Data Sup porting Code Source(s) Document(s ) Carbon 24 mmol/L [facility] dioxide, Hospital total [Moles/volu me] in Serum or Plasma ID Date Data Source [id number] 05/26/2019 09:58:00 AM EST [facility] Name Value Range Interpretation Description Data Sup porting Code Source(s) Document(s ) Chloride 109 [facility] [Moles/volum mmol/L Hospital e] in Serum or Plasma ID Date Data Source [id number] 05/26/2019 09:58:00 AM EST [facility] Name Value Range Interpretation Description Data Sup porting Code Source(s) Document(s ) Potassium 3.8 [facility] [Moles/volume mmol/L Hospital ] in Serum or Plasma ID Date Data Source [id number] 05/26/2019 09:58:00 AM EST [facility] Name Value Range Interpretation Description Data Sup porting Code Source(s) Document(s ) Sodium 140 mmol/L [facility] [Moles/volu Hospital me] in Serum or Plasma ID Date Data Source [id number] 05/26/2019 09:58:00 AM EST [facility] Name Value Range Interpretation Description Data Sup porting Code Source(s) Document(s ) Glucose 313 mg/dL [facility] [Mass/volume Hospital ] in Serum or Plasma ID Date Data Source [id number] 05/26/2019 09:58:00 AM EST [facility] Name Value Range Interpretation Code Description Data Supporting Source(s) Document(s ) NUCLEATED RBCS 0.0 % [facility] (AUTO Hospital DIFF%)DIS ID Date Data Source [id number] 05/26/2019 09:58:00 AM [facility] Name Value Range Interpretation Description Data Sup porting Code Source(s) Document(s ) Differential AUTOMATED [facility] cell count Hospital method - Blood ID Date Data Source [id number] 05/26/2019 09:58:00 AM EST [facility] Value Range Interpretation Description Data Sup porting Code Source(s) Document(s ) Immature 0.02 [facility] granulocytes 10*3/uL Hospital [#/volume] in Blood by Automated count ID Date Data Source [id number] 05/26/2019 09:58:00 AM EST [facility] Name Value Range Interpretation Description Data Sup porting Code Source(s) Document(s ) Basophils 0.04 [facility] [#/volume] in 10*3/uL Hospital Blood by Automated count ID Date Data Source [id number] 05/26/2019 09:58:00 AM EST [facility] Name Value Range Interpretation Description Data Sup porting Code Source(s) Document(s ) Eosinophils 0.16 [facility] [#/volume] in 10*3/uL Hospital Blood by Automated count ID Date Data Source [id number] 05/26/2019 09:58:00 AM EST [facility] Name Value Range Interpretation Description Data Sup porting Code Source(s) Document(s ) Monocytes 0.65 [facility] [#/volume] in 10*3/uL Hospital Blood by Automated count ID Date Data Source [id number] 05/26/2019 09:58:00 AM EST [facility] Value Range Interpretation Description Data Sup porting Code Source(s) Document(s ) Lymphocytes 1.90 [facility] [#/volume] in 10*3/uL Hospital Blood by Automated count ID Date Data Source [id number] 05/26/2019 09:58:00 AM EST [facility] Value Range Interpretation Description Data Sup porting Code Source(s) Document(s ) Neutrophils 1.71 [facility] [#/volume] in 10*3/uL [facility] Blood by Automated count ID Date Data Source [id number] 05/26/2019 09:58:00 AM [facility] Value Range Interpretation Description Data Sup porting Code Source(s) Document(s ) Nucleated 0.0 % [facility] erythrocytes/10 Hospital 0 leukocytes [Ratio] in Blood by Automated count ID Date Data Source [id number] 05/26/2019 09:58:00 AM [facility] Value Range Interpretation Description Data Sup porting Code Source(s) Document(s ) Immature 0.4 % [facility] granulocytes/10 Hospital 0 leukocytes in Blood by Automated count ID Date Data Source [id number] 05/26/2019 09:58:00 AM [facility] Value Range Interpretation Description Data Sup porting Code Source(s) Document(s ) Basophils/100 0.9 % [facility] leukocytes in Hospital Blood by Automated count ID Date Data Source [id number] 05/26/2019 09:58:00 AM [facility] Value Range Interpretation Description Data Sup porting Code Source(s) Document(s ) Eosinophils/100 3.6 % [facility] leukocytes in Hospital Blood by Automated count ID Date Data Source [id number] 05/26/2019 09:58:00 AM EST [facility] Name Value Range Interpretation Description Data Sup porting Code Source(s) Document(s ) Monocytes/100 14.5 % [facility] leukocytes in Hospital Blood by Automated count ID Date Data Source [id number] 05/26/2019 09:58:00 AM EST [facility] Name Value Range Interpretation Description Data Sup porting Code Source(s) Document(s ) Lymphocytes/10 42.4 % [facility] 0 leukocytes Hospital in Blood by Automated count ID Date Data Source [id number] 05/26/2019 09:58:00 AM EST [facility] Value Range Interpretation Description Data Sup porting Code Source(s) Document(s ) Neutrophils/10 38.2 % [facility] 0 leukocytes Hospital in Blood by Automated count ID Date Data Source [id number] 05/26/2019 09:58:00 AM [facility] Name Value Range Interpretation Description Data Sup porting Code Source(s) Document(s ) Platelet mean 12.1 fL [facility] volume Hospital [Entitic volume] in Blood by Automated count ID Date Data Source [id number] 05/26/2019 09:58:00 AM [facility] Name Value Range Interpretation Description Data Sup porting Code Source(s) Document(s ) Platelets 198 [facility] [#/volume] in 10*3/uL Hospital Blood by Automated count ID Date Data Source [id number] 05/26/2019 09:58:00 AM EST [facility] Name Value Range Interpretation Description Data Sup porting Code Source(s) Document(s ) Erythrocyte 14.1 % [facility] distribution Hospital width [Ratio] by Automated count ID Date Data Source [id number] 05/26/2019 09:58:00 AM EST [facility] Name Value Range Interpretation Description Data Sup porting Code Source(s) Document(s ) Erythrocyte mean 32.8 [facility] corpuscular g/dL Hospital hemoglobin concentration [Mass/volume] by Automated count ID Date Data Source [id number] 05/26/2019 09:58:00 AM [facility] Value Range Interpretation Description Data Sup porting Code Source(s) Document(s ) Erythrocyte 28.8 pg [facility] corpuscular hemoglobin [Entitic mass] by Automated count ID Date Data Source [id number] 05/26/2019 09:58:00 AM [facility] Value Range Interpretation Description Data Sup porting Code Source(s) Document(s ) Erythrocyte 88.0 fL [facility] corpuscular volume [Entitic volume] by Automated count ID Date Data Source [id number] 05/26/2019 09:58:00 AM [facility] Value Range Interpretation Description Data Sup porting Code Source(s) Document(s ) Hematocrit 35.1 % [facility] [Volume Hospital Fraction] of Blood by Automated count ID Date Data Source [id number] 05/26/2019 09:58:00 AM [facility] Value Range Interpretation Description Data Sup porting Code Source(s) Document(s ) Hemoglobin 11.5 g/dL [facility] [Mass/volume] Hospital in Blood ID Date Data Source [id number] 05/26/2019 09:58:00 AM [facility] Value Range Interpretation Description Data Sup porting Code Source(s) Document(s ) Erythrocytes 3.99 [facility] [#/volume] in 10*6/uL Hospital Blood by Automated count ID Date Data Source [id number] 05/26/2019 09:58:00 AM [facility] Value Range Interpretation Description Data Sup porting Code Source(s) Document(s ) Leukocytes 4.5 [facility] [#/volume] in 10*3/uL Hospital Blood by Automated count ID Date Data Source [id number] 05/26/2019 12:00:00 AM [facility] TEST PERFORMED BY [facility] SENSITIVE [facility] CHEMILUMINESCENCE METHOD. Name Value Range Interpretation Description Data Sup porting Code Source(s) Document(s ) Troponin 0.01 [facility] I.cardiac ng/mL Hospital [Mass/volume ] in Serum or Plasma ID Date Data Source [id number] 05/26/2019 12:00:00 AM [facility] Name Value Range Interpretation Description Data Sup porting Code Source(s) Document(s ) Lactate 1.0 [facility] [Moles/volum mmol/L Hospital e] in Serum or Plasma ID Date Data Source [id number] 05/25/2019 09:33:00 PM [facility] CUT-OFF >= 25 NG/ML.THE FINDINGS OF [...] rce(s) Supporting Document(s ) PCP (UR) NEGATIVE [facility] ID Date Data Source [id number] 05/25/2019 09:33:00 PM [facility] CUT-OFF >= 50 NG/ML. Name Value Range Interpretation Code Description Data Bryanna rce(s) Supporting Document(s ) THC (UR) NEGATIVE [facility] ID Date Data Source [id number] 05/25/2019 09:33:00 PM [facility] CUT-OFF >= 300 NG/ML. Name Value Range Interpretation Description Data Sup porting Code Source(s) Document(s ) OPIATES (UR) NEGATIVE [facility] ID Date Data Source [id number] 05/25/2019 09:33:00 PM EST [facility] CUT-OFF >= 300 NG/ML. Name Value Range Interpretation Description Data Sup porting Code Source(s) Document(s ) COCAINE (UR) NEGATIVE [facility] ID Date Data Source [id number] 05/25/2019 09:33:00 PM [facility] CUT-OFF >= 200 NG/ML. Name Value Range Interpretation Description Data Sup porting Code Source(s) Document(s ) BENZODIAZEPINES NEGATIVE [place] (UR) [facility] ID Date Data Source [id number] 05/25/2019 09:33:00 PM [facility] CUT-OFF >= 200 NG/ML. Name Value Range Interpretation Description Data Sup porting Code Source(s) Document(s ) BARBITURATES NEGATIVE [facility] (UR) Hospital ID Date Data Source [id number] 05/25/2019 09:33:00 PM [facility] CUT-OFF >= 1000 NG/ML. Name Value Range Interpretation Description Data Sup porting Code Source(s) Document(s ) AMPHETAMINES NEGATIVE [facility] (UR) Hospital ID Date Data Source [id number] 05/25/2019 09:33:00 PM [facility] Name Value Range Interpretation Description Data Sup porting Code Source(s) Document(s ) Mucus PRESENT [facility] [Presence] in Hospital Urine sediment by Light microscopy ID Date Data Source [id number] 05/25/2019 09:33:00 PM [facility] Name Value Range Interpretation Description Data Sup porting Code Source(s) Document(s ) Epithelial 2+ [facility] cells.squamous [facility] [#/area] in Urine sediment by Microscopy high power field ID Date Data Source [id number] 05/25/2019 09:33:00 PM EST [facility] Name Value Range Interpretation Description Data Sup porting Code Source(s) Document(s ) Bacteria OCCASIONAL [facility] [#/area] in Hospital Urine sediment by Microscopy high power field ID Date Data Source [id number] 05/25/2019 09:33:00 PM [facility] Name Value Range Interpretation Description Data Sup porting Code Source(s) Document(s ) Erythrocytes 0-3 [facility] [#/area] in /[HPF] Hospital Urine sediment by Microscopy high power field ID Date Data Source [id number] 05/25/2019 09:33:00 PM [facility] Name Value Range Interpretation Description Data Sup porting Code Source(s) Document(s ) Leukocytes 3-5 [facility] [#/area] in /[HPF] Hospital Urine sediment by Microscopy high power field ID Date Data Source [id number] 05/25/2019 09:33:00 PM [facility] CUT-OFF >= 25 NG/ML.THE FINDINGS OF [...] rce(s) Supporting Document(s ) PCP (UR) NEGATIVE [facility] ID Date Data Source [id number] 05/25/2019 09:33:00 PM [facility] CUT-OFF >= 50 NG/ML. Name Value Range Interpretation Code Description Data Bryanna rce(s) Supporting Document(s ) THC (UR) NEGATIVE [facility] ID Date Data Source [id number] 05/25/2019 09:33:00 PM [facility] CUT-OFF >= 300 NG/ML. Name Value Range Interpretation Description Data Sup porting Code Source(s) Document(s ) OPIATES (UR) NEGATIVE [facility] ID Date Data Source [id number] 05/25/2019 09:33:00 PM [facility] CUT-OFF >= 300 NG/ML. Name Value Range Interpretation Description Data Sup porting Code Source(s) Document(s ) COCAINE (UR) NEGATIVE [facility] ID Date Data Source [id number] 05/25/2019 09:33:00 PM [facility] CUT-OFF >= 200 NG/ML. Name Value Range Interpretation Description Data Sup porting Code Source(s) Document(s ) BENZODIAZEPINES NEGATIVE [place] (UR) [facility] ID Date Data Source [id number] 05/25/2019 09:33:00 PM [facility] CUT-OFF >= 200 NG/ML. Name Value Range Interpretation Description Data Sup porting Code Source(s) Document(s ) BARBITURATES NEGATIVE [facility] (UR) Hospital ID Date Data Source [id number] 05/25/2019 09:33:00 PM [facility] CUT-OFF >= 1000 NG/ML. Name Value Range Interpretation Description Data Sup porting Code Source(s) Document(s ) AMPHETAMINES NEGATIVE [facility] (UR) Hospital ID Date Data Source [id number] 05/25/2019 09:33:00 PM [facility] Name Value Range Interpretation Description Data Sup porting Code Source(s) Document(s ) Mucus PRESENT [facility] [Presence] in Hospital Urine sediment by Light microscopy ID Date Data Source [id number] 05/25/2019 09:33:00 PM [facility] Name Value Range Interpretation Description Data Sup porting Code Source(s) Document(s ) Epithelial 2+ [facility] cells.squamous [facility] [#/area] in Urine sediment by Microscopy high power field ID Date Data Source [id number] 05/25/2019 09:33:00 PM EST [facility] Name Value Range Interpretation Description Data Sup porting Code Source(s) Document(s ) Bacteria OCCASIONAL [facility] [#/area] in Hospital Urine sediment by Microscopy high power field ID Date Data Source [id number] 05/25/2019 09:33:00 PM EST [facility] Name Value Range Interpretation Description Data Sup porting Code Source(s) Document(s ) Erythrocytes 0-3 [facility] [#/area] in /[HPF] Hospital Urine sediment by Microscopy high power field ID Date Data Source [id number] 05/25/2019 09:33:00 PM EST [facility] Value Range Interpretation Description Data Sup porting Code Source(s) Document(s ) Leukocytes 3-5 [facility] [#/area] in /[HPF] Hospital Urine sediment by Microscopy high power field ID Date Data Source [id number] 05/25/2019 09:33:00 PM EST [facility] Value Range Interpretation Code Description Data Supporting Source(s) Document(s ) Leukocyte TRACE [facility] esterase Hospital [Presence] in Urine by Test strip ID Date Data Source [id number] 05/25/2019 09:33:00 PM EST [facility] Value Range Interpretation Description Data Sup porting Code Source(s) Document(s ) URINE NEGATIVE [facility] NITRITES Hospital ID Date Data Source [id number] 05/25/2019 09:33:00 PM EST [facility] Value Range Interpretation Description Data Sup porting Code Source(s) Document(s ) Erythrocytes NEGATIVE [facility] [#/volume] in Hospital Urine by Test strip ID Date Data Source [id number] 05/25/2019 09:33:00 PM EST [facility] Name Value Range Interpretation Code Description Data Bryanna rce(s) Supporting Document(s ) Bilirubin. NEGATIVE [facility] total Hospital [Presence] in Urine by Test strip ID Date Data Source [id number] 05/25/2019 09:33:00 PM EST [facility] Name Value Range Interpretation Description Data Sup porting Code Source(s) Document(s ) Urobilinogen 1.0 [facility] [Units/volume] mg/dL Hospital in Urine by Test strip ID Date Data Source [id number] 05/25/2019 09:33:00 PM EST [facility] Name Value Range Interpretation Code Description Data Bryanna rce(s) Supporting Document(s ) Ketones 1+ [facility] [Mass/volume Hospital ] in Urine by Test strip ID Date Data Source [id number] 05/25/2019 09:33:00 PM EST [facility] Name Value Range Interpretation Description Data Sup porting Code Source(s) Document(s ) Glucose NEGATIVE [facility] [Mass/volume Hospital ] in Urine by Test strip ID Date Data Source [id number] 05/25/2019 09:33:00 PM EST [facility] Name Value Range Interpretation Code Description Data Bryanna rce(s) Supporting Document(s ) Protein TRACE [facility] [Presence] Hospital in Urine by Test strip ID Date Data Source [id number] 05/25/2019 09:33:00 PM EST [facility] Name Value Range Interpretation Code Description Data Bryanna rce(s) Supporting Document(s ) pH of Urine 6.5 [facility] by Test Hospital strip ID Date Data Source [id number] 05/25/2019 09:33:00 PM EST [facility] Name Value Range Interpretation Code Description Data Supporting Source(s) Document(s ) Specific 1.026 [facility] gravity of Hospital Urine by Test strip ID Date Data Source [id number] 05/25/2019 09:33:00 PM [facility] Name Value Range Interpretation Description Data Sup porting Code Source(s) Document(s ) Clarity in Urine CLEAR [facility] by Refractometry Hospital automated ID Date Data Source [id number] 05/25/2019 09:33:00 PM [facility] Value Range Interpretation Code Description Data Supporting Source(s) Document(s ) Color of DK YELLOW [facility] Urine Hospital ID Date Data Source [id number] 05/25/2019 07:31:00 PM [facility] Value Range Interpretation Description Data Sup porting Code Source(s) Document(s ) Bacteria No growth [facility] identified in Hospital Blood by Culture ID Date Data Source [id number] 05/25/2019 07:24:00 PM [facility] Value Range Interpretation Description Data Sup porting Code Source(s) Document(s ) Thyroxine 0.7 ng/dL [facility] (T4) free Hospital [Mass/volume] in Serum or Plasma ID Date Data Source [id number] 05/25/2019 07:24:00 PM [facility] Value Range Interpretation Description Data Sup porting Code Source(s) Document(s ) Thyrotropin 2.463 [facility] [Units/volume] u[IU]/mL Hospital in Serum or Plasma by Detection limit <= 0.005 mIU/L ID Date Data Source [id number] 05/25/2019 07:24:00 PM [facility] Value Range Interpretation Description Data Sup porting Code Source(s) Document(s ) Thyroxine 0.7 ng/dL [facility] (T4) free Hospital [Mass/volume] in Serum or Plasma ID Date Data Source [id number] 05/25/2019 07:24:00 PM [facility] Name Value Range Interpretation Description Data Sup porting Code Source(s) Document(s ) Thyrotropin 2.463 [facility] [Units/volume] u[IU]/mL Hospital in Serum or Plasma by Detection limit <= 0.005 mIU/L ID Date Data Source [id number] 05/25/2019 07:24:00 PM [facility] NOTIFICATION AND READ BACK OF CRITICAL R ESULTS TO DO [place]OW[place] OF AT 2018 ON 05/25/19 BY Jeri Iraheta.REPORTED CRITIC AL VALUES SHOULD BE INTERPRETED WITHIN CLINICAL CONTEXT. Name Value Range Interpretation Description Data Sup porting Code Source(s) Document(s ) Ammonia 56 mmol/L [facility] [Moles/volum Hospital e] in Plasma ID Date Data Source [id number] 05/25/2019 07:24:00 PM [facility] Name Value Range Interpretation Description Data Sup porting Code Source(s) Document(s ) Aspartate 33 U/L White aminotransferase [facility] [Enzymatic Hospital activity/volume] in Serum or Plasma ID Date Data Source [id number] 05/25/2019 07:24:00 PM [facility] Name Value Range Interpretation Description Data Sup porting Code Source(s) Document(s ) Alanine 23 U/L White aminotransferase [facility] [Enzymatic Hospital activity/volume] in Serum or Plasma ID Date Data Source [id number] 05/25/2019 07:24:00 PM [facility] Name Value Range Interpretation Description Data Sup porting Code Source(s) Document(s ) Alkaline 84 U/L [facility] [Enzymatic activity/volume ] in Serum or Plasma ID Date Data Source [id number] 05/25/2019 07:24:00 PM [facility] Name Value Range Interpretation Description Data Sup porting Code Source(s) Document(s ) Bilirubin.t 0.8 mg/dL [facility] [Mass/volum e] in Serum or Plasma ID Date Data Source [id number] 05/25/2019 07:24:00 PM [facility] Name Value Range Interpretation Code Description Data Bryanna rce(s) Supporting Document(s ) Albumin/Glob 1.0 [facility] in Serum or Plasma ID Date Data Source [id number] 05/25/2019 07:24:00 PM [facility] Name Value Range Interpretation Description Data Sup porting Code Source(s) Document(s ) Albumin 3.6 g/dL [facility] [Mass/volume Hospital ] in Serum or Plasma ID Date Data Source [id number] 05/25/2019 07:24:00 PM [facility] Name Value Range Interpretation Description Data Sup porting Code Source(s) Document(s ) Protein 7.1 g/dL [facility] ] in Serum or Plasma ID Date Data Source [id number] 05/25/2019 07:24:00 PM [facility] THERAPEUTIC RANGES:UNFRACTIONATED HEPARI N THERAPY: 60-90 SECONDSARGATROBAN THERAPY: 49-99 SECONDS Name Value Range Interpretation Description Data Sup porting Code Source(s) Document(s ) aPTT in 31.8 s [facility] Platelet poor [facility] plasma by Coagulation assay ID Date Data Source [id number] 05/25/2019 07:24:00 PM [facility] THERAPEUTIC RANGE FOR STANDARD ORALANTIC OAGULANT THERAPY: 2.0-3.0THERAPEUTIC RANGE FOR HIGH DOSE ORALANTICOAGULANT THERAPY (MECHANICAL HEARTVALVE REPLACEMENT): 2.5-3.5 Name Value Range Interpretation Description Data Sup porting Code Source(s) Document(s ) INR in Platelet 1.1 [facility] poor plasma by Hospital Coagulation assay ID Date Data Source [id number] 05/25/2019 07:24:00 PM [facility] Name Value Range Interpretation Description Data Sup porting Code Source(s) Document(s ) PT panel - 12.3 s [facility] Platelet poor [facility] plasma by Coagulation assay ID Date Data Source [id number] 05/21/2019 04:13:00 PM [facility] Manager Social Services:[employer] Name Value Range Interpretation Description Data Sup porting Code Source(s) Document(s ) Glucose 265 mg/dL [place] [Mass/volume] [facility] in Capillary blood by Glucometer ID Date Data Source [id number] 05/21/2019 07:44:00 AM [facility] TEST PERFORMED BY [employer] ULTRA SENSITIVE CENTAUR CHEMILUMINESCENCE METHOD. Name Value Range Interpretation Description Data Sup porting Code Source(s) Document(s ) Troponin 0.02 [facility] I.cardiac ng/mL Hospital [Mass/volume ] in Serum or Plasma ID Date Data Source [id number] 05/21/2019 07:44:00 AM [facility] Name Value Range Interpretation Description Data Sup porting Code Source(s) Document(s ) Magnesium 2.2 mg/dL [facility] [[facility]] [facility] in Serum or Plasma ID Date Data Source [id number] 05/21/2019 07:44:00 AM [facility] Name Value Range Interpretation Description Data Sup porting Code Source(s) Document(s ) Calcium 8.0 mg/dL [facility] ] in Serum or Plasma ID Date Data Source [id number] 05/21/2019 07:44:00 AM [facility] Name Value Range Interpretation Code Description Data Bryanna rce(s) Supporting Document(s ) Urea 11.4 [facility] nitrogen/Cre Hospital atinine [Mass Ratio] in Serum or Plasma ID Date Data Source [id number] 05/21/2019 07:44:00 AM [facility] Name Value Range Interpretation Description Data Sup porting Code Source(s) Document(s ) Creatinine 0.7 mg/dL [facility] [[facility]] [facility] in Serum or Plasma ID Date Data Source [id number] 05/21/2019 07:44:00 AM [facility] Hospital Name Value Range Interpretation Description Data Sup porting Code Source(s) Document(s ) Urea nitrogen 8 mg/dL [facility] [[facility]] Hospital in Serum or Plasma ID Date Data Source [id number] 05/21/2019 07:44:00 AM [facility] Value Range Interpretation Code Description Data Bryanna rce(s) Supporting Document(s ) Anion gap in 10 [facility] Serum or [facility] Plasma ID Date Data Source [id number] 05/21/2019 07:44:00 AM [facility] Name Value Range Interpretation Description Data Sup porting Code Source(s) Document(s ) Carbon 29 mmol/L [facility] dioxide, Hospital total [Moles/volu me] in Serum or Plasma ID Date Data Source [id number] 05/21/2019 07:44:00 AM [facility] Name Value Range Interpretation Description Data Sup porting Code Source(s) Document(s ) Chloride 106 [facility] [Moles/volum mmol/L Hospital e] in Serum or Plasma ID Date Data Source [id number] 05/21/2019 07:44:00 AM [facility] Name Value Range Interpretation Description Data Sup porting Code Source(s) Document(s ) Potassium 3.5 [facility] [Moles/volume mmol/L Hospital ] in Serum or Plasma ID Date Data Source [id number] 05/21/2019 07:44:00 AM [facility] Value Range Interpretation Description Data Sup porting Code Source(s) Document(s ) Sodium 141 mmol/L [facility] [Moles/volu Hospital mi] in Serum or Plasma ID Date Data Source [id number] 05/21/2019 07:44:00 AM [facility] Value Range Interpretation Description Data Sup porting Code Source(s) Document(s ) Glucose 211 mg/dL [facility] [[facility] ] in Serum or Plasma ID Date Data Source [id number] 05/21/2019 02:20:00 AM [facility] Value Range Interpretation Description Data Sup porting Code Source(s) Document(s ) Procalcitonin 1.1 [facility] [Mass/volume] in ng/mL Hospital Serum or Plasma ID Date Data Source [id number] 05/21/2019 02:20:00 AM [facility] Value Range Interpretation Description Data Sup porting Code Source(s) Document(s ) Procalcitonin 1.1 [facility] [Mass/volume] in ng/mL Hospital Serum or Plasma ID Date Data Source [id number] 05/21/2019 02:20:00 AM [facility] Value Range Interpretation Description Data Sup porting Code Source(s) Document(s ) Phosphate 2.5 mg/dL [facility] [[facility]] Hospital in Serum or Plasma ID Date Data Source [id number] 05/21/2019 02:20:00 AM [facility] Value Range Interpretation Description Data Sup porting Code Source(s) Document(s ) Platelet mean 12.[address] [facility] [Entitic volume] in Blood by Automated count ID Date Data Source [id number] 05/21/2019 02:20:00 AM EST [facility] Name Value Range Interpretation Description Data Sup porting Code Source(s) Document(s ) Platelets 144 [facility] [#/volume] in 10*3/uL Hospital Blood by Automated count ID Date Data Source [id number] 05/21/2019 02:20:00 AM [facility] Value Range Interpretation Description Data Sup porting Code Source(s) Document(s ) Erythrocyte 13.5 % [facility] distribution Hospital width [Ratio] by Automated count ID Date Data Source [id number] 05/21/2019 02:20:00 AM [facility] Name Value Range Interpretation Description Data Sup porting Code Source(s) Document(s ) Erythrocyte mean 34.8 [facility] corpuscular g/dL Hospital hemoglobin concentration [Mass/volume] by Automated count ID Date Data Source [id number] 05/21/2019 02:20:00 AM [facility] Value Range Interpretation Description Data Sup porting Code Source(s) Document(s ) Erythrocyte 29.0 pg [facility] corpuscular hemoglobin [Entitic mass] by Automated count ID Date Data Source [id number] 05/21/2019 02:20:00 AM [facility] Value Range Interpretation Description Data Sup porting Code Source(s) Document(s ) Erythrocyte 83.3 fL [facility] corpuscular volume [Entitic volume] by Automated count ID Date Data Source [id number] 05/21/2019 02:20:00 AM [facility] Name Value Range Interpretation Description Data Sup porting Code Source(s) Document(s ) Hematocrit 33.0 % [facility] [Volume Hospital Fraction] of Blood by Automated count ID Date Data Source [id number] 05/21/2019 02:20:00 AM [facility] Value Range Interpretation Description Data Sup porting Code Source(s) Document(s ) Hemoglobin 11.5 g/dL [facility] [[facility] in Blood ID Date Data Source [id number] 05/21/2019 02:20:00 AM [facility] Name Value Range Interpretation Description Data Sup porting Code Source(s) Document(s ) Erythrocytes 3.96 [facility] [#/volume] in 10*6/uL Hospital Blood by Automated count ID Date Data Source [id number] 05/21/2019 02:20:00 AM [facility] Name Value Range Interpretation Description Data Sup porting Code Source(s) Document(s ) Leukocytes 3.4 [facility] [#/volume] in 10*3/uL Hospital Blood by Automated count ID Date Data Source [id number] 05/20/2019 08:14:00 PM [facility] Name Value Range Interpretation Description Data Sup porting Code Source(s) Document(s ) GLUCOSE RN Notified [facility] ID Date Data Source [id number] 05/20/2019 07:11:00 AM [facility] LOW MALE AND AVERAGE FEMALE CORONARY HEA RT DISEASE RISK. Name Value Range Interpretation Description Data Sup porting Code Source(s) Document(s ) Cholesterol 3.8 [facility] .total/Chol {ratio} Hospital esterol in HDL [Mass Ratio] in Serum or Plasma ID Date Data Source [id number] 05/20/2019 07:11:00 AM [facility] Name Value Range Interpretation Description Data Sup porting Code Source(s) Document(s ) Cholesterol in 15 mg/dL [facility] VLDL Hospital [Mass/volume] in Serum or Plasma by calculation ID Date Data Source [id number] 05/20/2019 07:11:00 AM [facility] Name Value Range Interpretation Description Data Sup porting Code Source(s) Document(s ) Cholesterol in 99 mg/dL [facility] LDL Hospital [Mass/volume] in Serum or Plasma by Direct assay ID Date Data Source [id number] 05/20/2019 07:11:00 AM [facility] Name Value Range Interpretation Description Data Sup porting Code Source(s) Document(s ) Cholesterol in 48 mg/dL [facility] HDL Hospital [Mass/volume] in Serum or Plasma ID Date Data Source [id number] 05/20/2019 07:11:00 AM [facility] Name Value Range Interpretation Description Data Sup porting Code Source(s) Document(s ) Triglyceride 75 mg/dL [facility] [Mass/volume] in Hospital Serum or Plasma ID Date Data Source [id number] 05/20/2019 07:11:00 AM [facility] Name Value Range Interpretation Description Data Sup porting Code Source(s) Document(s ) Cholesterol 183 mg/dL [facility] [Mass/[facility]] Hospital in Serum or Plasma ID Date Data Source [id number] 05/20/2019 07:11:00 AM [facility] LOW MALE AND AVERAGE FEMALE CORONARY HEA RT DISEASE RISK. Name Value Range Interpretation Description Data Sup porting Code Source(s) Document(s ) Cholesterol 3.8 [facility] .total/Chol {ratio} Hospital esterol in HDL [Mass Ratio] in Serum or Plasma ID Date Data Source [id number] 05/20/2019 07:11:00 AM [facility] Name Value Range Interpretation Description Data Sup porting Code Source(s) Document(s ) Cholesterol in 15 mg/dL [facility] VLDL Hospital [Mass/volume] in Serum or Plasma by calculation ID Date Data Source [id number] 05/20/2019 07:11:00 AM [facility] Name Value Range Interpretation Description Data Sup porting Code Source(s) Document(s ) Cholesterol in 99 mg/dL [facility] LDL Hospital [Mass/volume] in Serum or Plasma by Direct assay ID Date Data Source [id number] 05/20/2019 07:11:00 AM [facility] Name Value Range Interpretation Description Data Sup porting Code Source(s) Document(s ) Cholesterol in 48 mg/dL [facility] HDL Hospital [Mass/volume] in Serum or Plasma ID Date Data Source [id number] 05/20/2019 07:11:00 AM EST [facility] Name Value Range Interpretation Description Data Sup porting Code Source(s) Document(s ) Triglyceride 75 mg/dL [facility] [Mass/volume] in Hospital Serum or Plasma ID Date Data Source [id number] 05/20/2019 07:11:00 AM [facility] Value Range Interpretation Description Data Sup porting Code Source(s) Document(s ) Cholesterol 183 mg/dL [facility] [[facility]] Hospital in Serum or Plasma ID Date Data Source [id number] 05/20/2019 07:11:00 AM [facility] Name Value Range Interpretation Code Description Data Supporting Source(s) Document(s ) NUCLEATED RBCS 0.0 % [facility] (AUTO Hospital DIFF%)DIS ID Date Data Source [id number] 05/20/2019 07:11:00 AM [facility] Name Value Range Interpretation Description Data Sup porting Code Source(s) Document(s ) Differential AUTOMATED [facility] cell count Hospital method - Blood ID Date Data Source [id number] 05/20/2019 07:11:00 AM [facility] Name Value Range Interpretation Description Data Sup porting Code Source(s) Document(s ) Immature 0.01 [facility] granulocytes 10*3/uL Hospital [#/volume] in Blood by Automated count ID Date Data Source [id number] 05/20/2019 07:11:00 AM [facility] Name Value Range Interpretation Description Data Sup porting Code Source(s) Document(s ) Basophils 0.04 [facility] [#/volume] in 10*3/uL Hospital Blood by Automated count ID Date Data Source [id number] 05/20/2019 07:11:00 AM [facility] Value Range Interpretation Description Data Sup porting Code Source(s) Document(s ) Eosinophils 0.14 [facility] [#/volume] in 10*3/uL Hospital Blood by Automated count ID Date Data Source [id number] 05/20/2019 07:11:00 AM [facility] Value Range Interpretation Description Data Sup porting Code Source(s) Document(s ) Monocytes 0.60 [facility] [#/volume] in 10*3/uL Hospital Blood by Automated count ID Date Data Source [id number] 05/20/2019 07:11:00 AM [facility] Value Range Interpretation Description Data Sup porting Code Source(s) Document(s ) Lymphocytes 2.05 [facility] [#/volume] in 10*3/uL Hospital Blood by Automated count ID Date Data Source [id number] 05/20/2019 07:11:00 AM [facility] Value Range Interpretation Description Data Sup porting Code Source(s) Document(s ) Neutrophils 1.12 [facility] [#/volume] in 10*3/uL Hospital Blood by Automated count ID Date Data Source [id number] 05/20/2019 07:11:00 AM [facility] Value Range Interpretation Description Data Sup porting Code Source(s) Document(s ) Nucleated 0.0 % [facility] erythrocytes/10 Hospital 0 leukocytes [Ratio] in Blood by Automated count ID Date Data Source [id number] 05/20/2019 07:11:00 AM EST [facility] Name Value Range Interpretation Description Data Sup porting Code Source(s) Document(s ) Immature 0.3 % [facility] granulocytes/10 Hospital 0 leukocytes in Blood by Automated count ID Date Data Source [id number] 05/20/2019 07:11:00 AM EST [facility] Name Value Range Interpretation Description Data Sup porting Code Source(s) Document(s ) Basophils/100 1.0 % [facility] leukocytes in Hospital Blood by Automated count ID Date Data Source [id number] 05/20/2019 07:11:00 AM EST [facility] Name Value Range Interpretation Description Data Sup porting Code Source(s) Document(s ) Eosinophils/100 3.5 % [facility] leukocytes in Hospital Blood by Automated count ID Date Data Source [id number] 05/20/2019 07:11:00 AM EST [facility] Name Value Range Interpretation Description Data Sup porting Code Source(s) Document(s ) Monocytes/100 15.2 % [facility] leukocytes in Hospital Blood by Automated count ID Date Data Source [id number] 05/20/2019 07:11:00 AM EST [facility] Name Value Range Interpretation Description Data Sup porting Code Source(s) Document(s ) Lymphocytes/10 51.8 % [facility] 0 leukocytes Hospital in Blood by Automated count ID Date Data Source [id number] 05/20/2019 07:11:00 AM EST [facility] Name Value Range Interpretation Description Data Sup porting Code Source(s) Document(s ) Neutrophils/10 28.2 % [facility] 0 leukocytes Hospital in Blood by Automated count ID Date Data Source [id number] 05/19/2019 03:33:00 PM EST [facility] Name Value Range Interpretation Code Description Data Bryanna rce(s) Supporting Document(s ) Cells 100 [facility] Total [#] in Blood ID Date Data Source [id number] 05/19/2019 03:33:00 PM EST [facility] Value Range Interpretation Code Description Data Supporting Source(s) Document(s ) PLATELET NORMAL [facility] Hospital ID Date Data Source [id number] 05/19/2019 03:33:00 PM EST [facility] Value Range Interpretation Code Description Data Bryanna rce(s) Supporting Document(s ) BINTA CELLS 1+ [facility] ID Date Data Source [id number] 05/19/2019 03:33:00 PM EST [facility] Value Range Interpretation Code Description Data Bryanna rce(s) Supporting Document(s ) TARGET CELLS OCC [facility] ID Date Data Source [id number] 05/19/2019 03:33:00 PM EST [facility] Value Range Interpretation Code Description Data Bryanna rce(s) Supporting Document(s ) OVALOCYTES OCC [facility] ID Date Data Source [id number] 05/19/2019 03:33:00 PM EST [facility] Value Range Interpretation Description Data Sup porting Code Source(s) Document(s ) POIKILOCYTOSIS 1+ [facility] ID Date Data Source [id number] 05/19/2019 03:33:00 PM EST [facility] Value Range Interpretation Description Data Sup porting Code Source(s) Document(s ) Basophils 0.03 [facility] [#/volume] in 10*3/uL Hospital Blood by Manual count ID Date Data Source [id number] 05/19/2019 03:33:00 PM EST [facility] Name Value Range Interpretation Description Data Sup porting Code Source(s) Document(s ) Eosinophils 0.03 [facility] [#/volume] in 10*3/uL Hospital Blood by Manual count ID Date Data Source [id number] 05/19/2019 03:33:00 PM EST [facility] Name Value Range Interpretation Description Data Sup porting Code Source(s) Document(s ) Monocytes 0.33 [facility] [#/volume] in 10*3/uL Hospital Blood by Manual count ID Date Data Source [id number] 05/19/2019 03:33:00 PM EST [facility] Name Value Range Interpretation Description Data Sup porting Code Source(s) Document(s ) Lymphocytes 0.43 [facility] [#/volume] in 10*3/uL Hospital Blood by Manual count ID Date Data Source [id number] 05/19/2019 03:33:00 PM [facility] Value Range Interpretation Description Data Sup porting Code Source(s) Document(s ) Neutrophils 2.51 [facility] [#/volume] in 10*3/uL Hospital Blood by Manual count ID Date Data Source [id number] 05/19/2019 03:33:00 PM [facility] Value Range Interpretation Description Data Sup porting Code Source(s) Document(s ) Basophils/100 1 % [facility] leukocytes in Hospital Blood by Manual count ID Date Data Source [id number] 05/19/2019 03:33:00 PM EST [facility] Name Value Range Interpretation Description Data Sup porting Code Source(s) Document(s ) Eosinophils/100 1 % [facility] leukocytes in Hospital Blood by Manual count ID Date Data Source [id number] 05/19/2019 03:33:00 PM EST [facility] Name Value Range Interpretation Description Data Sup porting Code Source(s) Document(s ) Monocytes/100 10 % [facility] leukocytes in Hospital Blood by Manual count ID Date Data Source [id number] 05/19/2019 03:33:00 PM EST [facility] Name Value Range Interpretation Description Data Sup porting Code Source(s) Document(s ) Lymphocytes/100 13 % [facility] leukocytes in Hospital Blood by Manual count ID Date Data Source [id number] 05/19/2019 03:33:00 PM EST [facility] Name Value Range Interpretation Description Data Sup porting Code Source(s) Document(s ) Neutrophils/100 76 % [facility] leukocytes in Hospital Blood by Manual count ID Date Data Source [id number] 05/19/2019 03:33:00 PM EST [facility] Name Value Range Interpretation Code Description Data Bryanna rce(s) Supporting Document(s ) Cells 100 [facility] Hospital Total [#] in Blood ID Date Data Source [id number] 05/19/2019 03:33:00 PM EST [facility] Value Range Interpretation Code Description Data Supporting Source(s) Document(s ) PLATELET NORMAL [facility] Hospital ID Date Data Source [id number] 05/19/2019 03:33:00 PM EST [facility] Name Value Range Interpretation Code Description Data Bryanna rce(s) Supporting Document(s ) BINTA CELLS 1+ [facility] ID Date Data Source [id number] 05/19/2019 03:33:00 PM EST [facility] Name Value Range Interpretation Code Description Data Bryanna rce(s) Supporting Document(s ) TARGET CELLS OCC [facility] ID Date Data Source [id number] 05/19/2019 03:33:00 PM EST [facility] Name Value Range Interpretation Code Description Data Bryanna rce(s) Supporting Document(s ) OVALOCYTES OCC [facility] ID Date Data Source [id number] 05/19/2019 03:33:00 PM EST [facility] Name Value Range Interpretation Description Data Sup porting Code Source(s) Document(s ) POIKILOCYTOSIS 1+ [facility] ID Date Data Source [id number] 05/19/2019 03:33:00 PM EST [facility] Name Value Range Interpretation Description Data Sup porting Code Source(s) Document(s ) Basophils 0.03 [facility] [#/volume] in 10*3/uL Hospital Blood by Manual count ID Date Data Source [id number] 05/19/2019 03:33:00 PM EST [facility] Value Range Interpretation Description Data Sup porting Code Source(s) Document(s ) Eosinophils 0.03 [facility] [#/volume] in 10*3/uL Hospital Blood by Manual count ID Date Data Source [id number] 05/19/2019 03:33:00 PM EST [facility] Value Range Interpretation Description Data Sup porting Code Source(s) Document(s ) Monocytes 0.33 [facility] [#/volume] in 10*3/uL Hospital Blood by Manual count ID Date Data Source [id number] 05/19/2019 03:33:00 PM EST [facility] Name Value Range Interpretation Description Data Sup porting Code Source(s) Document(s ) Lymphocytes 0.43 [facility] [#/volume] in 10*3/uL Hospital Blood by Manual count ID Date Data Source [id number] 05/19/2019 03:33:00 PM EST [facility] Name Value Range Interpretation Description Data Sup porting Code Source(s) Document(s ) Neutrophils 2.51 [facility] [#/volume] in 10*3/uL Hospital Blood by Manual count ID Date Data Source [id number] 05/19/2019 03:33:00 PM EST [facility] Name Value Range Interpretation Description Data Sup porting Code Source(s) Document(s ) Basophils/100 1 % [facility] leukocytes in [facility] Blood by Manual count ID Date Data Source [id number] 05/19/2019 03:33:00 PM [facility] Name Value Range Interpretation Description Data Sup porting Code Source(s) Document(s ) Eosinophils/100 1 % [facility] leukocytes in Hospital Blood by Manual count ID Date Data Source [id number] 05/19/2019 03:33:00 PM [facility] Value Range Interpretation Description Data Sup porting Code Source(s) Document(s ) Monocytes/100 10 % [facility] leukocytes in Hospital Blood by Manual count ID Date Data Source [id number] 05/19/2019 03:33:00 PM EST [facility] Name Value Range Interpretation Description Data Sup porting Code Source(s) Document(s ) Lymphocytes/100 13 % [place] leukocytes in Hospital Blood by Manual count ID Date Data Source [id number] 05/19/2019 03:33:00 PM [facility] Name Value Range Interpretation Description Data Sup porting Code Source(s) Document(s ) Neutrophils/100 76 % [facility] leukocytes in Hospital Blood by Manual count ID Date Data Source [id number] 05/18/2019 10:05:00 AM [facility] Manager Social Services:THONG GLASS Name Value Range Interpretation Description Data Sup porting Code Source(s) Document(s ) Glucose 291 mg/dL [place] [Mass/volume] [facility] in Capillary blood by Glucometer ID Date Data Source [id number] 05/18/2019 08:04:00 AM EST [facility] Name Value Range Interpretation Description Data Sup porting Code Source(s) Document(s ) GLUCOSE Pre Meal [facility] ID Date Data Source [id number] 05/18/2019 02:12:00 AM [facility] Name Value Range Interpretation Description Data Sup porting Code Source(s) Document(s ) Lactate 1.4 [facility] [Moles/volum mmol/L Hospital e] in Serum or Plasma ID Date Data Source [id number] 05/18/2019 02:12:00 AM [facility] Name Value Range Interpretation Description Data Sup porting Code Source(s) Document(s ) Lactate 1.4 [facility] [Moles/volum mmol/L Hospital e] in Serum or Plasma ID Date Data Source [id number] 05/18/2019 02:12:00 AM [facility] Name Value Range Interpretation Description Data Sup porting Code Source(s) Document(s ) Calcium 8.5 mg/dL [facility] [Mass/volume Hospital ] in Serum or Plasma ID Date Data Source [id number] 05/18/2019 02:12:00 AM [facility] Value Range Interpretation Code Description Data Bryanna rce(s) Supporting Document(s ) Urea 8.0 [facility] nitrogen/Cre Hospital atinine [Mass Ratio] in Serum or Plasma ID Date Data Source [id number] 05/18/2019 02:12:00 AM [facility] Name Value Range Interpretation Description Data Sup porting Code Source(s) Document(s ) Creatinine 1.0 mg/dL [facility] [Mass/volume] Hospital in Serum or Plasma ID Date Data Source [id number] 05/18/2019 02:12:00 AM [facility] Name Value Range Interpretation Description Data Sup porting Code Source(s) Document(s ) Urea nitrogen 8 mg/dL [facility] [Mass/volume] Hospital in Serum or Plasma ID Date Data Source [id number] 05/18/2019 02:12:00 AM [facility] Name Value Range Interpretation Code Description Data Bryanna rce(s) Supporting Document(s ) Anion gap in 16 [facility] Serum or [facility] Plasma ID Date Data Source [id number] 05/18/2019 02:12:00 AM [facility] Name Value Range Interpretation Description Data Sup porting Code Source(s) Document(s ) Carbon 26 mmol/L [facility] dioxide, Hospital total [Moles/volu me] in Serum or Plasma ID Date Data Source [id number] 05/18/2019 02:12:00 AM [facility] Name Value Range Interpretation Description Data Sup porting Code Source(s) Document(s ) Chloride 95 mmol/L [facility] [Moles/volum Hospital e] in Serum or Plasma ID Date Data Source [id number] 05/18/2019 02:12:00 AM [facility] Name Value Range Interpretation Description Data Sup porting Code Source(s) Document(s ) Potassium 3.8 [facility] [Moles/volume mmol/L Hospital ] in Serum or Plasma ID Date Data Source [id number] 05/18/2019 02:12:00 AM [facility] Name Value Range Interpretation Description Data Sup porting Code Source(s) Document(s ) Sodium 133 mmol/L [facility] [Moles/volu Hospital me] in Serum or Plasma ID Date Data Source [id number] 05/18/2019 02:12:00 AM [facility] NOTIFICATION AND READ BACK OF CRITICAL R ESULTS TO AMMON GREENWOOD RN AC AT 0506 ON 05/18/19 BY Danial Truong.PLEASE NOTE MARTINEZ GE IN CRITICAL GLUCOSE VALUES EFFECTIVE 04/22/17.REPORTED CRITICAL VALUES SHOULD B E INTERPRETED WITHIN CLINICAL CONTEXT. Name Value Range Interpretation Description Data Sup porting Code Source(s) Document(s ) Glucose 445 mg/dL [place] [[facility] Hospital ] in Serum or Plasma ID Date Data Source [id number] 05/17/2019 11:50:00 PM EST [facility] CUT-OFF >= 25 NG/ML.THE FINDINGS OF THE URINE DRUG SCREEN ARE USED SOLELY FOR PATIENT MANAGEMENT AND GUIDANCE. THE RESULTS FREEDOM ULD NOT BE USED FOR FORENSIC PURPOSE. ANY CLINICALLY UNSUSPECTED POSITIVE DRUG SCR EEN CAN BE CONFIRMED BY CALLING THE LABORATORY 3 DAYS WITHIN RECEIPT OF REPO RT. Name Value Range Interpretation Code Description Data Byranna rce(s) Supporting Document(s ) PCP (UR) NEGATIVE [facility] ID Date Data Source [id number] 05/17/2019 11:50:00 PM EST [facility] CUT-OFF >= 50 NG/ML. Name Value Range Interpretation Code Description Data Bryanna rce(s) Supporting Document(s ) THC (UR) NEGATIVE [facility] ID Date Data Source [id number] 05/17/2019 11:50:00 PM EST [facility] CUT-OFF >= 300 NG/ML. Name Value Range Interpretation Description Data Sup porting Code Source(s) Document(s ) OPIATES (UR) NEGATIVE [facility] ID Date Data Source [id number] 05/17/2019 11:50:00 PM EST [facility] CUT-OFF >= 300 NG/ML. Name Value Range Interpretation Description Data Sup porting Code Source(s) Document(s ) COCAINE (UR) NEGATIVE [facility] ID Date Data Source [id number] 05/17/2019 11:50:00 PM EST [facility] CUT-OFF >= 200 NG/ML. Name Value Range Interpretation Description Data Sup porting Code Source(s) Document(s ) BENZODIAZEPINES NEGATIVE [place] (UR) [facility] ID Date Data Source [id number] 05/17/2019 11:50:00 PM [facility] CUT-OFF >= 200 NG/ML. Name Value Range Interpretation Description Data Sup porting Code Source(s) Document(s ) BARBITURATES NEGATIVE [facility] (UR) Hospital ID Date Data Source [id number] 05/17/2019 11:50:00 PM [facility] CUT-OFF >= 1000 NG/ML. Name Value Range Interpretation Description Data Sup porting Code Source(s) Document(s ) AMPHETAMINES NEGATIVE [facility] (UR) Hospital ID Date Data Source [id number] 05/17/2019 11:50:00 PM [facility] Name Value Range Interpretation Description Data Sup porting Code Source(s) Document(s ) Epithelial OCCASIONAL [facility] [place] cells.[facility] s [#/area] in Urine sediment by Microscopy high power field ID Date Data Source [id number] 05/17/2019 11:50:00 PM [facility] Name Value Range Interpretation Description Data Sup porting Code Source(s) Document(s ) Erythrocytes NEGATIVE [place] [#/area] in /[HPF] [facility] Urine sediment Hospital by Microscopy high power field ID Date Data Source [id number] 05/17/2019 11:50:00 PM [facility] Name Value Range Interpretation Description Data Sup porting Code Source(s) Document(s ) Leukocytes NEGATIVE [facility] [#/area] in /[HPF] Hospital Urine sediment by Microscopy high power field ID Date Data Source [id number] 05/17/2019 11:50:00 PM [facility] Name Value Range Interpretation Description Data Sup porting Code Source(s) Document(s ) Leukocyte NEGATIVE [facility] esterase Hospital [Presence] in Urine by Test strip ID Date Data Source [id number] 05/17/2019 11:50:00 PM EST [facility] Name Value Range Interpretation Description Data Sup porting Code Source(s) Document(s ) URINE NEGATIVE [facility] NITRITES Hospital ID Date Data Source [id number] 05/17/2019 11:50:00 PM EST [facility] Name Value Range Interpretation Description Data Sup porting Code Source(s) Document(s ) Erythrocytes NEGATIVE [facility] [#/volume] in Hospital Urine by Test strip ID Date Data Source [id number] 05/17/2019 11:50:00 PM [facility] Value Range Interpretation Code Description Data Bryanna rce(s) Supporting Document(s ) Bilirubin. NEGATIVE [facility] total Hospital [Presence] in Urine by Test strip ID Date Data Source [id number] 05/17/2019 11:50:00 PM [facility] Value Range Interpretation Description Data Sup porting Code Source(s) Document(s ) Urobilinogen 0.2 [facility] [Units/volume] mg/dL Hospital in Urine by Test strip ID Date Data Source [id number] 05/17/2019 11:50:00 PM [facility] Value Range Interpretation Code Description Data Bryanna rce(s) Supporting Document(s ) Ketones 2+ [facility] [Mass/volume Hospital ] in Urine by Test strip ID Date Data Source [id number] 05/17/2019 11:50:00 PM [facility] Value Range Interpretation Code Description Data Bryanna rce(s) Supporting Document(s ) Glucose 3+ [facility] [Mass/volume Hospital ] in Urine by Test strip ID Date Data Source [id number] 05/17/2019 11:50:00 PM EST [facility] Name Value Range Interpretation Code Description Data Bryanna rce(s) Supporting Document(s ) Protein TRACE [facility] [Presence] Hospital in Urine by Test strip ID Date Data Source [id number] 05/17/2019 11:50:00 PM EST [facility] Name Value Range Interpretation Code Description Data Bryanna rce(s) Supporting Document(s ) pH of Urine 6.0 [facility] by Test Hospital strip ID Date Data Source [id number] 05/17/2019 11:50:00 PM EST [facility] Name Value Range Interpretation Code Description Data Supporting Source(s) Document(s ) Specific 1.041 [facility] gravity of Hospital Urine by Test strip ID Date Data Source [id number] 05/17/2019 11:50:00 PM EST [facility] Name Value Range Interpretation Description Data Sup porting Code Source(s) Document(s ) Clarity in Urine CLOUDY [facility] by Refractometry Hospital automated ID Date Data Source [id number] 05/17/2019 11:50:00 PM [facility] Name Value Range Interpretation Code Description Data Bryanna rce(s) Supporting Document(s ) Color of YELLOW [facility] Urine Hospital ID Date Data Source [id number] 05/17/2019 11:50:00 PM [facility] CUT-OFF >= 25 NG/ML.THE FINDINGS OF [...] rce(s) Supporting Document(s ) PCP (UR) NEGATIVE [facility] ID Date Data Source [id number] 05/17/2019 11:50:00 PM [facility] CUT-OFF >= 50 NG/ML. Name Value Range Interpretation Code Description Data Bryanna rce(s) Supporting Document(s ) THC (UR) NEGATIVE [facility] ID Date Data Source [id number] 05/17/2019 11:50:00 PM EST [facility] CUT-OFF >= 300 NG/ML. Name Value Range Interpretation Description Data Sup porting Code Source(s) Document(s ) OPIATES (UR) NEGATIVE [facility] ID Date Data Source [id number] 05/17/2019 11:50:00 PM EST [facility] CUT-OFF >= 300 NG/ML. Name Value Range Interpretation Description Data Sup porting Code Source(s) Document(s ) COCAINE (UR) NEGATIVE [facility] ID Date Data Source [id number] 05/17/2019 11:50:00 PM EST [facility] CUT-OFF >= 200 NG/ML. Name Value Range Interpretation Description Data Sup porting Code Source(s) Document(s ) BENZODIAZEPINES NEGATIVE [place] (UR) [facility] ID Date Data Source [id number] 05/17/2019 11:50:00 PM EST [facility] CUT-OFF >= 200 NG/ML. Name Value Range Interpretation Description Data Sup porting Code Source(s) Document(s ) BARBITURATES NEGATIVE [facility] (UR) Hospital ID Date Data Source [id number] 05/17/2019 11:50:00 PM EST [facility] CUT-OFF >= 1000 NG/ML. Name Value Range Interpretation Description Data Sup porting Code Source(s) Document(s ) AMPHETAMINES NEGATIVE [facility] (UR) Hospital ID Date Data Source [id number] 05/17/2019 11:50:00 PM [facility] Name Value Range Interpretation Description Data Sup porting Code Source(s) Document(s ) Epithelial OCCASIONAL [facility] [place] cells.[facility] s [#/area] in Urine sediment by Microscopy high power field ID Date Data Source [id number] 05/17/2019 11:50:00 PM [facility] Name Value Range Interpretation Description Data Sup porting Code Source(s) Document(s ) Erythrocytes NEGATIVE [place] [#/area] in /[HPF] [facility] Urine sediment Hospital by Microscopy high power field ID Date Data Source [id number] 05/17/2019 11:50:00 PM [facility] Name Value Range Interpretation Description Data Sup porting Code Source(s) Document(s ) Leukocytes NEGATIVE [facility] [#/area] in /[HPF] Hospital Urine sediment by Microscopy high power field ID Date Data Source [id number] 05/17/2019 11:50:00 PM EST [facility] Name Value Range Interpretation Description Data Sup porting Code Source(s) Document(s ) Leukocyte NEGATIVE [facility] esterase Hospital [Presence] in Urine by Test strip ID Date Data Source [id number] 05/17/2019 11:50:00 PM EST [facility] Name Value Range Interpretation Description Data Sup porting Code Source(s) Document(s ) URINE NEGATIVE [facility] NITRITES Hospital ID Date Data Source [id number] 05/17/2019 11:50:00 PM EST [facility] Name Value Range Interpretation Description Data Sup porting Code Source(s) Document(s ) Erythrocytes NEGATIVE [facility] [#/volume] in Hospital Urine by Test strip ID Date Data Source [id number] 05/17/2019 11:50:00 PM EST [facility] Name Value Range Interpretation Code Description Data Bryanna rce(s) Supporting Document(s ) Bilirubin. NEGATIVE [facility] total Hospital [Presence] in Urine by Test strip ID Date Data Source [id number] 05/17/2019 11:50:00 PM EST [facility] Name Value Range Interpretation Description Data Sup porting Code Source(s) Document(s ) Urobilinogen 0.2 [facility] [Units/volume] mg/dL Hospital in Urine by Test strip ID Date Data Source [id number] 05/17/2019 11:50:00 PM EST [facility] Name Value Range Interpretation Code Description Data Bryanna rce(s) Supporting Document(s ) Ketones 2+ [facility] [Mass/volume Hospital ] in Urine by Test strip ID Date Data Source [id number] 05/17/2019 11:50:00 PM EST [facility] Name Value Range Interpretation Code Description Data Bryanna rce(s) Supporting Document(s ) Glucose 3+ [facility] [Mass/volume Hospital ] in Urine by Test strip ID Date Data Source [id number] 05/17/2019 11:50:00 PM EST [facility] Name Value Range Interpretation Code Description Data Bryanna rce(s) Supporting Document(s ) Protein TRACE [facility] [Presence] Hospital in Urine by Test strip ID Date Data Source [id number] 05/17/2019 11:50:00 PM EST [facility] Name Value Range Interpretation Code Description Data Bryanna rce(s) Supporting Document(s ) pH of Urine 6.0 [facility] by Test Hospital strip ID Date Data Source [id number] 05/17/2019 11:50:00 PM EST [facility] Name Value Range Interpretation Code Description Data Supporting Source(s) Document(s ) Specific 1.041 [facility] gravity of Hospital Urine by Test strip ID Date Data Source [id number] 05/17/2019 11:50:00 PM EST [facility] Name Value Range Interpretation Description Data Sup porting Code Source(s) Document(s ) Clarity in Urine CLOUDY [place] by Refractometry [facility] automated ID Date Data Source [id number] 05/17/2019 11:50:00 PM [facility] Name Value Range Interpretation Code Description Data Bryanna rce(s) Supporting Document(s ) Color of YELLOW [facility] Urine Hospital ID Date Data Source [id number] 05/17/2019 08:37:00 PM [facility] REFERENCE RANGES: NONE DETECTED <20 MG/DL NONE TO MILD EUPHORIA 20-49 MG/DL MILD EUPHORIA 50-99 MG/DL MODERATE EUPHORIA 100-149 MG/DL INTOXICATION 150-300 MG/DL Name Value Range Interpretation Description Data Sup porting Code Source(s) Document(s ) Ethanol < 20 [facility] [Mass/volume mg/dL Hospital ] in Serum or Plasma ID Date Data Source [id number] 05/17/2019 08:37:00 PM [facility] TEST RESULT IS A TOTAL TRICYCLIC [...] Code Source(s) Document(s ) TRICYCLIC < 80 [facility] ANTIDEPRESSANT ng/mL Hospital ID Date Data Source [id number] 05/17/2019 08:37:00 PM [facility] REFERENCE RANGES: ANALGESIC: 0.0 - 10.0 MG/DL. ARTHRITIC THERAPY: 15.0 - 30.0 MG/DL. Name Value Range Interpretation Description Data Sup porting Code Source(s) Document(s ) Salicylates < 3.0 [facility] [Mass/volume] mg/dL Hospital in Serum or Plasma ID Date Data Source [id number] 05/17/2019 08:37:00 PM [facility] THERAPEUTIC RANGE: 10.0-30.0 UG/MLTOXIC RANGE: 4 HRS AFTER INGESTION >150 UG/ML 12 HRS AFTER INGESTION >35 UG/ML Name Value Range Interpretation Description Data Sup porting Code Source(s) Document(s ) ACETAMINOPHEN < 10.0 [facility] ug/mL Hospital ID Date Data Source [id number] 05/17/2019 08:37:00 PM [facility] Name Value Range Interpretation Description Data Sup porting Code Source(s) Document(s ) OSMOLALITY 309 [facility] (SERUM) mosm/kg Hospital ID Date Data Source [id number] 05/17/2019 08:37:00 PM [facility] REFERENCE RANGES: NONE DETECTED <20 MG/DL NONE TO MILD EUPHORIA 20-49 MG/DL MILD EUPHORIA 50-99 MG/DL MODERATE EUPHORIA 100-149 MG/DL INTOXICATION 150-300 MG/DL Name Value Range Interpretation Description Data Sup porting Code Source(s) Document(s ) Ethanol < 20 [facility] [Mass/volume mg/dL Hospital ] in Serum or Plasma ID Date Data Source [id number] 05/17/2019 08:37:00 PM [facility] TEST RESULT IS A TOTAL TRICYCLIC [...] Code Source(s) Document(s ) TRICYCLIC < 80 [facility] ANTIDEPRESSANT ng/mL Hospital ID Date Data Source [id number] 05/17/2019 08:37:00 PM [facility] REFERENCE RANGES: ANALGESIC: 0.0 - 10.0 MG/DL. ARTHRITIC THERAPY: 15.0 - 30.0 MG/DL. Name Value Range Interpretation Description Data Sup porting Code Source(s) Document(s ) Salicylates < 3.0 [facility] [Mass/volume] mg/dL Hospital in Serum or Plasma ID Date Data Source [id number] 05/17/2019 08:37:00 PM [facility] THERAPEUTIC RANGE: 10.0-30.0 UG/MLTOXIC RANGE: 4 HRS AFTER INGESTION >150 UG/ML 12 HRS AFTER INGESTION >35 UG/ML Name Value Range Interpretation Description Data Sup porting Code Source(s) Document(s ) ACETAMINOPHEN < 10.0 [facility] ug/mL Hospital ID Date Data Source [id number] 05/17/2019 08:37:00 PM [facility] ADA RECOMMENDATIONS: NON-DIABETES: 4.0-6.0% CONTROLLED DIABETES: 6.0-8.0% UNCONTROLLED DIABETE S: UP TO 20%RECOMMENDED ADA RESULT FOR THERAPY: HEMOGLOBIN A1C RESULT LESS GM N 7%.NOTE: METHOD CHANGE EFFECTIVE 11/11/14. Name Value Range Interpretation Description Data Sup porting Code Source(s) Document(s ) Hemoglobin 10.4 % [facility] A1c/Hemoglobin Hospital .total in Blood ID Date Data Source [id number] 05/17/2019 08:37:00 PM [facility] Name Value Range Interpretation Description Data Sup porting Code Source(s) Document(s ) OSMOLALITY 309 [facility] (SERUM) mosm/kg Hospital ID Date Data Source [id number] 05/17/2019 08:37:00 PM [facility] Name Value Range Interpretation Description Data Sup porting Code Source(s) Document(s ) Aspartate 37 U/L [place] aminotransferase [facility] [Enzymatic Hospital activity/volume] in Serum or Plasma ID Date Data Source [id number] 05/17/2019 08:37:00 PM EST [facility] Name Value Range Interpretation Description Data Sup porting Code Source(s) Document(s ) Alanine 22 U/L [place] aminotransferase [facility] [Enzymatic Hospital activity/volume] in Serum or Plasma ID Date Data Source [id number] 05/17/2019 08:37:00 PM EST [facility] Name Value Range Interpretation Description Data Sup porting Code Source(s) Document(s ) Alkaline 87 U/L [facility] phosphatase Hospital [Enzymatic activity/volume ] in Serum or Plasma ID Date Data Source [id number] 05/17/2019 08:37:00 PM EST [facility] Name Value Range Interpretation Description Data Sup porting Code Source(s) Document(s ) Bilirubin.t 1.4 mg/dL [facility] [Mass/volum e] in Serum or Plasma ID Date Data Source [id number] 05/17/2019 08:37:00 PM EST [facility] Name Value Range Interpretation Code Description Data Bryanna rce(s) Supporting Document(s ) Albumin/Glob 1.4 [facility] [Mass Hospital Ratio] in Serum or Plasma ID Date Data Source [id number] 05/17/2019 08:37:00 PM EST [facility] Name Value Range Interpretation Description Data Sup porting Code Source(s) Document(s ) Albumin 3.8 g/dL [facility] [Mass/volume Hospital ] in Serum or Plasma ID Date Data Source [id number] 05/17/2019 08:37:00 PM EST [facility] Name Value Range Interpretation Description Data Sup porting Code Source(s) Document(s ) Protein 6.6 g/dL [facility] [Mass/volume Hospital ] in Serum or Plasma ID Date Data Source [id number] 05/17/2019 08:37:00 PM [facility] Name Value Range Interpretation Description Data Sup porting Code Source(s) Document(s ) Leukocytes 3.1 [facility] [#/volume] in 10*3/uL [facility] Blood by Automated count ID Date Data Source [id number] 05/17/2019 08:37:00 PM [facility] REFERENCE RANGES: NONE DETECTED <20 MG/DL NONE TO MILD EUPHORIA 20-49 MG/DL MILD EUPHORIA 50-99 MG/DL MODERATE EUPHORIA 100-149 MG/DL INTOXICATION 150-300 MG/DL Name Value Range Interpretation Description Data Sup porting Code Source(s) Document(s ) Ethanol < 20 [facility] [Mass/volume mg/dL Hospital ] in Serum or Plasma ID Date Data Source [id number] 05/17/2019 08:37:00 PM [facility] TEST RESULT IS A TOTAL TRICYCLIC [...] Code Source(s) Document(s ) TRICYCLIC < 80 [facility] ANTIDEPRESSANT ng/mL Hospital ID Date Data Source [id number] 05/17/2019 08:37:00 PM [facility] REFERENCE RANGES: ANALGESIC: 0.0 - 10.0 MG/DL. ARTHRITIC THERAPY: 15.0 - 30.0 MG/DL. Name Value Range Interpretation Description Data Sup porting Code Source(s) Document(s ) Salicylates < 3.0 [facility] [Mass/volume] mg/dL Hospital in Serum or Plasma ID Date Data Source [id number] 05/17/2019 08:37:00 PM [facility] THERAPEUTIC RANGE: 10.0-30.0 UG/MLTOXIC RANGE: 4 HRS AFTER INGESTION >150 UG/ML 12 HRS AFTER INGESTION >35 UG/ML Name Value Range Interpretation Description Data Sup porting Code Source(s) Document(s ) ACETAMINOPHEN < 10.0 [facility] ug/mL Hospital ID Date Data Source [id number] 05/17/2019 08:37:00 PM [facility] [facility] ADA RECOMMENDATIONS: NON-DIABETES: 4.0-6.0% CONTROLLED DIABETES: 6.0-8.0% UNCONTROLLED DIABETE S: UP TO 20%RECOMMENDED ADA RESULT FOR THERAPY: HEMOGLOBIN A1C RESULT LESS GM N 7%.NOTE: METHOD CHANGE EFFECTIVE 11/11/14. Name Value Range Interpretation Description Data Sup porting Code Source(s) Document(s ) Hemoglobin 10.4 % [facility] A1c/Hemoglobin [facility] .total in Blood ID Date Data Source [id number] 05/17/2019 08:37:00 PM [facility] TEST PERFORMED BY [facility] ULTRA SENSITIVE [facility] CHEMILUMINESCENCE METHOD. Name Value Range Interpretation Description Data Sup porting Code Source(s) Document(s ) Troponin 0.05 [facility] I.cardiac ng/mL Hospital [Mass/volume ] in Serum or Plasma ID Date Data Source [id number] 05/17/2019 08:37:00 PM [facility] Name Value Range Interpretation Description Data Sup porting Code Source(s) Document(s ) OSMOLALITY 309 [facility] (SERUM) mosm/kg Hospital ID Date Data Source [id number] 05/17/2019 08:37:00 PM [facility] Name Value Range Interpretation Description Data Sup porting Code Source(s) Document(s ) Phosphate 2.2 mg/dL [facility] [Mass/volume] Hospital in Serum or Plasma ID Date Data Source [id number] 05/17/2019 08:37:00 PM EST [facility] Name Value Range Interpretation Description Data Sup porting Code Source(s) Document(s ) Magnesium 1.3 mg/dL [facility] [Mass/volume] Hospital in Serum or Plasma ID Date Data Source [id number] 05/17/2019 08:37:00 PM EST [facility] Name Value Range Interpretation Description Data Sup porting Code Source(s) Document(s ) Aspartate 37 U/L White aminotransferase [place] [Enzymatic Hospital activity/volume] in Serum or Plasma ID Date Data Source [id number] 05/17/2019 08:37:00 PM EST [facility] Name Value Range Interpretation Description Data Sup porting Code Source(s) Document(s ) Alanine 22 U/L White aminotransferase [place] [Enzymatic Hospital activity/volume] in Serum or Plasma ID Date Data Source [id number] 05/17/2019 08:37:00 PM EST [facility] Name Value Range Interpretation Description Data Sup porting Code Source(s) Document(s ) Alkaline 87 U/L [facility] phosphatase Hospital [Enzymatic activity/volume ] in Serum or Plasma ID Date Data Source [id number] 05/17/2019 08:37:00 PM EST [facility] Name Value Range Interpretation Description Data Sup porting Code Source(s) Document(s ) Bilirubin.t 1.4 mg/dL [facility] [Mass/volum e] in Serum or Plasma ID Date Data Source [id number] 05/17/2019 08:37:00 PM [facility] Name Value Range Interpretation Code Description Data Bryanna rce(s) Supporting Document(s ) Albumin/Glob 1.4 [facility] ulin [Mass Hospital Ratio] in Serum or Plasma ID Date Data Source [id number] 05/17/2019 08:37:00 PM EST [facility] Name Value Range Interpretation Description Data Sup porting Code Source(s) Document(s ) Albumin 3.8 g/dL [facility] [Mass/volume Hospital ] in Serum or Plasma ID Date Data Source [id number] 05/17/2019 08:37:00 PM [facility] Name Value Range Interpretation Description Data Sup porting Code Source(s) Document(s ) Protein 6.6 g/dL [facility] [Mass/volume Hospital ] in Serum or Plasma ID Date Data Source [id number] 05/17/2019 08:37:00 PM [facility] Value Range Interpretation Code Description Data Supporting Source(s) Document(s ) NUCLEATED RBCS 0.0 % [facility] (AUTO Hospital DIFF%)DIS ID Date Data Source [id number] 05/17/2019 08:37:00 PM [facility] Value Range Interpretation Description Data Sup porting Code Source(s) Document(s ) Differential AUTOMATED [facility] cell count Hospital method - Blood ID Date Data Source [id number] 05/17/2019 08:37:00 PM [facility] Value Range Interpretation Description Data Sup porting Code Source(s) Document(s ) Immature 0.00 [facility] granulocytes 10*3/uL Hospital [#/volume] in Blood by Automated count ID Date Data Source [id number] 05/17/2019 08:37:00 PM [facility] Name Value Range Interpretation Description Data Sup porting Code Source(s) Document(s ) Basophils 0.04 [facility] [#/volume] in 10*3/uL Hospital Blood by Automated count ID Date Data Source [id number] 05/17/2019 08:37:00 PM [facility] Name Value Range Interpretation Description Data Sup porting Code Source(s) Document(s ) Eosinophils 0.05 [facility] [#/volume] in 10*3/uL Hospital Blood by Automated count ID Date Data Source [id number] 05/17/2019 08:37:00 PM [facility] Name Value Range Interpretation Description Data Sup porting Code Source(s) Document(s ) Monocytes 0.46 [facility] [#/volume] in 10*3/uL Hospital Blood by Automated count ID Date Data Source [id number] 05/17/2019 08:37:00 PM [facility] Value Range Interpretation Description Data Sup porting Code Source(s) Document(s ) Lymphocytes 1.38 [facility] [#/volume] in 10*3/uL [facility] Blood by Automated count ID Date Data Source [id number] 05/17/2019 08:37:00 PM [facility] Value Range Interpretation Description Data Sup porting Code Source(s) Document(s ) Neutrophils 1.12 [facility] [#/volume] in 10*3/uL [facility] Blood by Automated count ID Date Data Source [id number] 05/17/2019 08:37:00 PM [facility] Value Range Interpretation Description Data Sup porting Code Source(s) Document(s ) Nucleated 0.0 % [facility] erythrocytes/10 Hospital 0 leukocytes [Ratio] in Blood by Automated count ID Date Data Source [id number] 05/17/2019 08:37:00 PM [facility] Value Range Interpretation Description Data Sup porting Code Source(s) Document(s ) Immature 0.0 % [facility] granulocytes/10 Hospital 0 leukocytes in Blood by Automated count ID Date Data Source [id number] 05/17/2019 08:37:00 PM [facility] Value Range Interpretation Description Data Sup porting Code Source(s) Document(s ) Basophils/100 1.3 % [facility] leukocytes in Hospital Blood by Automated count ID Date Data Source [id number] 05/17/2019 08:37:00 PM EST [facility] Name Value Range Interpretation Description Data Sup porting Code Source(s) Document(s ) Eosinophils/100 1.6 % [facility] leukocytes in Hospital Blood by Automated count ID Date Data Source [id number] 05/17/2019 08:37:00 PM EST [facility] Name Value Range Interpretation Description Data Sup porting Code Source(s) Document(s ) Monocytes/100 15.1 % [facility] leukocytes in Hospital Blood by Automated count ID Date Data Source [id number] 05/17/2019 08:37:00 PM EST [facility] Value Range Interpretation Description Data Sup porting Code Source(s) Document(s ) Lymphocytes/10 45.2 % [facility] 0 leukocytes Hospital in Blood by Automated count ID Date Data Source [id number] 05/17/2019 08:37:00 PM EST [facility] Name Value Range Interpretation Description Data Sup porting Code Source(s) Document(s ) Neutrophils/10 36.8 % [facility] 0 leukocytes Hospital in Blood by Automated count ID Date Data Source [id number] 05/17/2019 08:37:00 PM EST [facility] Value Range Interpretation Description Data Sup porting Code Source(s) Document(s ) Platelet mean 12.8 fL [facility] volume Hospital [Entitic volume] in Blood by Automated count ID Date Data Source [id number] 05/17/2019 08:37:00 PM EST [facility] Name Value Range Interpretation Description Data Sup porting Code Source(s) Document(s ) Platelets 175 [facility] [#/volume] in 10*3/uL Hospital Blood by Automated count ID Date Data Source [id number] 05/17/2019 08:37:00 PM EST [facility] Name Value Range Interpretation Description Data Sup porting Code Source(s) Document(s ) Erythrocyte 12.8 % [facility] Hospital width [Ratio] by Automated count ID Date Data Source [id number] 05/17/2019 08:37:00 PM [facility] Value Range Interpretation Description Data Sup porting Code Source(s) Document(s ) Erythrocyte mean 34.6 [facility] corpuscular g/dL Hospital hemoglobin concentration [Mass/volume] by Automated count ID Date Data Source [id number] 05/17/2019 08:37:00 PM [facility] Value Range Interpretation Description Data Sup porting Code Source(s) Document(s ) Erythrocyte 28.4 pg [facility] corpuscular hemoglobin [Entitic mass] by Automated count ID Date Data Source [id number] 05/17/2019 08:37:00 PM [facility] Value Range Interpretation Description Data Sup porting Code Source(s) Document(s ) Erythrocyte 82.3 fL [facility] corpuscular volume [Entitic volume] by Automated count ID Date Data Source [id number] 05/17/2019 08:37:00 PM [facility] Value Range Interpretation Description Data Sup porting Code Source(s) Document(s ) Hematocrit 37.6 % [facility] [Volume Hospital Fraction] of Blood by Automated count ID Date Data Source [id number] 05/17/2019 08:37:00 PM [facility] Value Range Interpretation Description Data Sup porting Code Source(s) Document(s ) Hemoglobin 13.0 g/dL [facility] [Mass/volume] Hospital in Blood ID Date Data Source [id number] 05/17/2019 08:37:00 PM [facility] Value Range Interpretation Description Data Sup porting Code Source(s) Document(s ) Erythrocytes 4.57 [facility] [#/volume] in 10*6/uL Hospital Blood by Automated count ID Date Data Source [id number] 04/29/2019 03:58:00 PM [facility] Name Value Range Interpretation Description Data Sup porting Code Source(s) Document(s ) GLUCOSE RN Notified [facility] ID Date Data Source [id number] 04/29/2019 03:58:00 PM [facility] Manager Social Services:BILL MORLEY Name Value Range Interpretation Description Data Sup porting Code Source(s) Document(s ) Glucose 106 mg/dL [facility] [Mass/volume] Hospital in Capillary blood by Glucometer ID Date Data Source [id number] 04/29/2019 12:14:00 PM [facility] Name Value Range Interpretation Description Data Sup porting Code Source(s) Document(s ) Calcium 9.6 mg/dL [facility] [Mass/volume Hospital ] in Serum or Plasma ID Date Data Source [id number] 04/29/2019 12:14:00 PM [facility] Name Value Range Interpretation Code Description Data Bryanna rce(s) Supporting Document(s ) Urea 23.8 [facility] nitrogen/Cre Hospital atinine [Mass Ratio] in Serum or Plasma ID Date Data Source [id number] 04/29/2019 12:14:00 PM [facility] Name Value Range Interpretation Description Data Sup porting Code Source(s) Document(s ) Creatinine 0.8 mg/dL [facility] [Mass/volume] Hospital in Serum or Plasma ID Date Data Source [id number] 04/29/2019 12:14:00 PM [facility] Name Value Range Interpretation Description Data Sup porting Code Source(s) Document(s ) Urea 19 mg/dL [facility] nitrogen Hospital [Mass/volume ] in Serum or Plasma ID Date Data Source [id number] 04/29/2019 12:14:00 PM EST [facility] Name Value Range Interpretation Code Description Data Bryanna rce(s) Supporting Document(s ) Anion gap in 8 [facility] Serum or [facility] Plasma ID Date Data Source [id number] 04/29/2019 12:14:00 PM [facility] Name Value Range Interpretation Description Data Sup porting Code Source(s) Document(s ) Carbon 31 mmol/L [facility] dioxide, Hospital total [Moles/volu me] in Serum or Plasma ID Date Data Source [id number] 04/29/2019 12:14:00 PM [facility] Name Value Range Interpretation Description Data Sup porting Code Source(s) Document(s ) Chloride 105 [facility] [Moles/volum mmol/L Hospital e] in Serum or Plasma ID Date Data Source [id number] 04/29/2019 12:14:00 PM [facility] MODERATE HEMOLYSIS Name Value Range Interpretation Description Data Sup porting Code Source(s) Document(s ) Potassium 4.2 [facility] [Moles/volume mmol/L Hospital ] in Serum or Plasma ID Date Data Source [id number] 04/29/2019 12:14:00 PM [facility] Hospital Name Value Range Interpretation Description Data Sup porting Code Source(s) Document(s ) Sodium 140 mmol/L [facility] [Moles/volu Hospital me] in Serum or Plasma ID Date Data Source [id number] 04/29/2019 12:14:00 PM [facility] NOTIFICATION AND READ BACK OF CRITICAL R ESULTS TO KIMBERLEY BOO RN-AC AT 1318 ON 04/29/19 BY Gena Keene.PLEASE NOTE FIDEL NGE IN CRITICAL GLUCOSE VALUES EFFECTIVE 04/22/17.REPORTED CRITICAL VALUES SHOULD B E INTERPRETED WITHIN CLINICAL CONTEXT. Name Value Range Interpretation Description Data Sup porting Code Source(s) Document(s ) Glucose 46 mg/dL [facility] [Mass/volume Hospital ] in Serum or Plasma ID Date Data Source [id number] 04/29/2019 12:14:00 PM [facility] Name Value Range Interpretation Description Data Sup porting Code Source(s) Document(s ) Platelet mean 12.2 fL [facility] volume Hospital [Entitic volume] in Blood by Automated count ID Date Data Source [id number] 04/29/2019 12:14:00 PM [facility] Name Value Range Interpretation Description Data Sup porting Code Source(s) Document(s ) Platelets 173 [facility] [#/volume] in 10*3/uL Hospital Blood by Automated count ID Date Data Source [id number] 04/29/2019 12:14:00 PM [facility] Name Value Range Interpretation Description Data Sup porting Code Source(s) Document(s ) Erythrocyte 14.0 % [facility] Hospital width [Ratio] by Automated count ID Date Data Source [id number] 04/29/2019 12:14:00 PM [facility] Name Value Range Interpretation Description Data Sup porting Code Source(s) Document(s ) Erythrocyte mean 33.1 [facility] corpuscular g/dL Hospital hemoglobin concentration [Mass/volume] by Automated count ID Date Data Source [id number] 04/29/2019 12:14:00 PM [facility] Name Value Range Interpretation Description Data Sup porting Code Source(s) Document(s ) Erythrocyte 29.1 pg [facility] mean Hospital corpuscular hemoglobin [Entitic mass] by Automated count ID Date Data Source [id number] 04/29/2019 12:14:00 PM [facility] Name Value Range Interpretation Description Data Sup porting Code Source(s) Document(s ) Erythrocyte 87.9 fL [facility] mean Hospital corpuscular volume [Entitic volume] by Automated count ID Date Data Source [id number] 04/29/2019 12:14:00 PM [facility] Name Value Range Interpretation Description Data Sup porting Code Source(s) Document(s ) Hematocrit 37.2 % [facility] [Volume Hospital Fraction] of Blood by Automated count ID Date Data Source [id number] 04/29/2019 12:14:00 PM [facility] Value Range Interpretation Description Data Sup porting Code Source(s) Document(s ) Hemoglobin 12.3 g/dL [facility] [Mass/volume] Hospital in Blood ID Date Data Source [id number] 04/29/2019 12:14:00 PM [facility] Name Value Range Interpretation Description Data Sup porting Code Source(s) Document(s ) Erythrocytes 4.23 [facility] [#/volume] in 10*6/uL Hospital Blood by Automated count ID Date Data Source [id number] 04/29/2019 12:14:00 PM [facility] Value Range Interpretation Description Data Sup porting Code Source(s) Document(s ) Leukocytes 5.9 [facility] [#/volume] in 10*3/uL Hospital Blood by Automated count ID Date Data Source [id number] 04/16/2019 02:05:00 PM [facility] Manager Social Services:[employer], NONA Name Value Range Interpretation Description Data Sup porting Code Source(s) Document(s ) Glucose 80 mg/dL [facility] [Mass/volume] [facility] in Capillary blood by Glucometer ID Date Data Source [id number] 04/16/2019 12:13:00 PM [facility] Name Value Range Interpretation Description Data Sup porting Code Source(s) Document(s ) Leukocyte NEGATIVE [facility] esterase Hospital [Presence] in Urine by Test strip ID Date Data Source [id number] 04/16/2019 12:13:00 PM EST [facility] Name Value Range Interpretation Description Data Sup porting Code Source(s) Document(s ) URINE NEGATIVE [facility] NITRITES Hospital ID Date Data Source [id number] 04/16/2019 12:13:00 PM EST [facility] Name Value Range Interpretation Description Data Sup porting Code Source(s) Document(s ) Erythrocytes NEGATIVE [facility] [#/volume] in Hospital Urine by Test strip ID Date Data Source [id number] 04/16/2019 12:13:00 PM [facility] Value Range Interpretation Code Description Data Bryanna rce(s) Supporting Document(s ) Bilirubin. NEGATIVE [facility] total Hospital [Presence] in Urine by Test strip ID Date Data Source [id number] 04/16/2019 12:13:00 PM [facility] Name Value Range Interpretation Description Data Sup porting Code Source(s) Document(s ) Urobilinogen 0.2 [facility] [Units/volume] mg/dL Hospital in Urine by Test strip ID Date Data Source [id number] 04/16/2019 12:13:00 PM [facility] Hospital Name Value Range Interpretation Description Data Sup porting Code Source(s) Document(s ) Ketones NEGATIVE [facility] [Mass/volume Hospital ] in Urine by Test strip ID Date Data Source [id number] 04/16/2019 12:13:00 PM [facility] Hospital Name Value Range Interpretation Code Description Data Bryanna rce(s) Supporting Document(s ) Glucose 3+ [facility] [Mass/volume Hospital ] in Urine by Test strip ID Date Data Source [id number] 04/16/2019 12:13:00 PM EST [facility] Name Value Range Interpretation Description Data Sup porting Code Source(s) Document(s ) Protein NEGATIVE [facility] [Presence] Hospital in Urine by Test strip ID Date Data Source [id number] 04/16/2019 12:13:00 PM EST [facility] Name Value Range Interpretation Code Description Data Bryanna rce(s) Supporting Document(s ) pH of Urine 7.0 [facility] by Test Hospital strip ID Date Data Source [id number] 04/16/2019 12:13:00 PM EST [facility] Name Value Range Interpretation Code Description Data Supporting Source(s) Document(s ) Specific 1.036 [facility] gravity of Hospital Urine by Test strip ID Date Data Source [id number] 04/16/2019 12:13:00 PM EST [facility] Name Value Range Interpretation Description Data Sup porting Code Source(s) Document(s ) Clarity in Urine CLEAR [facility] by Refractometry Hospital automated ID Date Data Source [id number] 04/16/2019 12:13:00 PM EST [facility] Name Value Range Interpretation Code Description Data Bryanna rce(s) Supporting Document(s ) Color of YELLOW [facility] Urine Hospital ID Date Data Source [id number] 04/16/2019 12:13:00 PM EST [facility] Name Value Range Interpretation Description Data Sup porting Code Source(s) Document(s ) Leukocyte NEGATIVE [facility] esterase Hospital [Presence] in Urine by Test strip ID Date Data Source [id number] 04/16/2019 12:13:00 PM EST [facility] Name Value Range Interpretation Description Data Sup porting Code Source(s) Document(s ) URINE NEGATIVE [facility] NITRITES Hospital ID Date Data Source [id number] 04/16/2019 12:13:00 PM [facility] Hospital Name Value Range Interpretation Description Data Sup porting Code Source(s) Document(s ) Erythrocytes NEGATIVE [facility] [#/volume] in Hospital Urine by Test strip ID Date Data Source [id number] 04/16/2019 12:13:00 PM [facility] Hospital Name Value Range Interpretation Code Description Data Bryanna rce(s) Supporting Document(s ) Bilirubin. NEGATIVE [facility] total Hospital [Presence] in Urine by Test strip ID Date Data Source [id number] 04/16/2019 12:13:00 PM [facility] Name Value Range Interpretation Description Data Sup porting Code Source(s) Document(s ) Urobilinogen 0.2 [facility] [Units/volume] mg/dL Hospital in Urine by Test strip ID Date Data Source [id number] 04/16/2019 12:13:00 PM [facility] Hospital Name Value Range Interpretation Description Data Sup porting Code Source(s) Document(s ) Ketones NEGATIVE [facility] [Mass/volume Hospital ] in Urine by Test strip ID Date Data Source [id number] 04/16/2019 12:13:00 PM [facility] Hospital Name Value Range Interpretation Code Description Data Bryanna rce(s) Supporting Document(s ) Glucose 3+ [facility] [Mass/volume Hospital ] in Urine by Test strip ID Date Data Source [id number] 04/16/2019 12:13:00 PM EST [facility] Name Value Range Interpretation Description Data Sup porting Code Source(s) Document(s ) Protein NEGATIVE [facility] [Presence] Hospital in Urine by Test strip ID Date Data Source [id number] 04/16/2019 12:13:00 PM [facility] Hospital Name Value Range Interpretation Code Description Data Bryanna rce(s) Supporting Document(s ) pH of Urine 7.0 [facility] by Test Hospital strip ID Date Data Source [id number] 04/16/2019 12:13:00 PM [facility] Name Value Range Interpretation Code Description Data Supporting Source(s) Document(s ) Specific 1.036 [facility] gravity of Hospital Urine by Test strip ID Date Data Source [id number] 04/16/2019 12:13:00 PM [facility] Name Value Range Interpretation Description Data Sup porting Code Source(s) Document(s ) Clarity in Urine CLEAR [facility] by Refractometry [facility] automated ID Date Data Source [id number] 04/16/2019 12:13:00 PM [facility] Name Value Range Interpretation Code Description Data Bryanna rce(s) Supporting Document(s ) Color of YELLOW [facility] Urine Hospital ID Date Data Source [id number] 04/16/2019 11:33:00 AM [facility] Name Value Range Interpretation Description Data Sup porting Code Source(s) Document(s ) Immature 0.02 [facility] granulocytes 10*3/uL Hospital [#/volume] in Blood by Automated count ID Date Data Source [id number] 04/16/2019 11:33:00 AM [facility] Name Value Range Interpretation Description Data Sup porting Code Source(s) Document(s ) Basophils 0.04 [facility] [#/volume] in 10*3/uL Hospital Blood by Automated count ID Date Data Source [id number] 04/16/2019 11:33:00 AM [facility] Name Value Range Interpretation Description Data Sup porting Code Source(s) Document(s ) Eosinophils 0.11 [facility] [#/volume] in 10*3/uL Hospital Blood by Automated count ID Date Data Source [id number] 04/16/2019 11:33:00 AM [facility] Name Value Range Interpretation Description Data Sup porting Code Source(s) Document(s ) Monocytes 0.60 [facility] [#/volume] in 10*3/uL Hospital Blood by Automated count ID Date Data Source [id number] 04/16/2019 11:33:00 AM [facility] Value Range Interpretation Description Data Sup porting Code Source(s) Document(s ) Lymphocytes 1.42 [facility] [#/volume] in 10*3/uL Hospital Blood by Automated count ID Date Data Source [id number] 04/16/2019 11:33:00 AM [facility] Value Range Interpretation Description Data Sup porting Code Source(s) Document(s ) Neutrophils 3.35 [facility] [#/volume] in 10*3/uL [facility] Blood by Automated count ID Date Data Source [id number] 04/16/2019 11:33:00 AM [facility] Value Range Interpretation Description Data Sup porting Code Source(s) Document(s ) Nucleated 0.0 % [facility] erythrocytes/10 Hospital 0 leukocytes [Ratio] in Blood by Automated count ID Date Data Source [id number] 04/16/2019 11:33:00 AM [facility] Value Range Interpretation Description Data Sup porting Code Source(s) Document(s ) Immature 0.4 % [facility] granulocytes/10 Hospital 0 leukocytes in Blood by Automated count ID Date Data Source [id number] 04/16/2019 11:33:00 AM [facility] Value Range Interpretation Description Data Sup porting Code Source(s) Document(s ) Basophils/100 0.7 % [facility] leukocytes in Hospital Blood by Automated count ID Date Data Source [id number] 04/16/2019 11:33:00 AM EST [facility] Name Value Range Interpretation Description Data Sup porting Code Source(s) Document(s ) Eosinophils/100 2.0 % [facility] leukocytes in Hospital Blood by Automated count ID Date Data Source [id number] 04/16/2019 11:33:00 AM EST [facility] Name Value Range Interpretation Description Data Sup porting Code Source(s) Document(s ) Monocytes/100 10.8 % [facility] leukocytes in Hospital Blood by Automated count ID Date Data Source [id number] 04/16/2019 11:33:00 AM EST [facility] Name Value Range Interpretation Description Data Sup porting Code Source(s) Document(s ) Lymphocytes/10 25.6 % [facility] 0 leukocytes Hospital in Blood by Automated count ID Date Data Source [id number] 04/16/2019 11:33:00 AM EST [facility] Name Value Range Interpretation Description Data Sup porting Code Source(s) Document(s ) Neutrophils/10 60.5 % [facility] 0 leukocytes Hospital in Blood by Automated count ID Date Data Source [id number] 04/16/2019 11:33:00 AM EST [facility] Name Value Range Interpretation Description Data Sup porting Code Source(s) Document(s ) Calcium 8.5 mg/dL [facility] [Mass/volume Hospital ] in Serum or Plasma ID Date Data Source [id number] 04/16/2019 11:33:00 AM EST [facility] Name Value Range Interpretation Code Description Data Bryanna rce(s) Supporting Document(s ) Urea 14.3 [facility] nitrogen/Cre Hospital atinine [Mass Ratio] in Serum or Plasma ID Date Data Source [id number] 04/16/2019 11:33:00 AM EST [facility] Name Value Range Interpretation Description Data Sup porting Code Source(s) Document(s ) Creatinine 0.7 mg/dL [facility] [Mass/volume] Hospital in Serum or Plasma ID Date Data Source [id number] 04/16/2019 11:33:00 AM EST [facility] Name Value Range Interpretation Description Data Sup porting Code Source(s) Document(s ) Urea 10 mg/dL [facility] nitrogen Hospital [Mass/volume ] in Serum or Plasma ID Date Data Source [id number] 04/16/2019 11:33:00 AM EST [facility] Name Value Range Interpretation Code Description Data Bryanna rce(s) Supporting Document(s ) Anion gap in 12 [facility] Serum or Hospital Plasma ID Date Data Source [id number] 04/16/2019 11:33:00 AM EST [facility] Name Value Range Interpretation Description Data Sup porting Code Source(s) Document(s ) Carbon 29 mmol/L [facility] dioxide, Hospital total [Moles/volu me] in Serum or Plasma ID Date Data Source [id number] 04/16/2019 11:33:00 AM EST [facility] Name Value Range Interpretation Description Data Sup porting Code Source(s) Document(s ) Chloride 101 [facility] [Moles/volum mmol/L Hospital e] in Serum or Plasma ID Date Data Source [id number] 04/16/2019 11:33:00 AM EST [facility] Name Value Range Interpretation Description Data Sup porting Code Source(s) Document(s ) Potassium 4.5 [facility] [Moles/volume mmol/L Hospital ] in Serum or Plasma ID Date Data Source [id number] 04/16/2019 11:33:00 AM EST [facility] Name Value Range Interpretation Description Data Sup porting Code Source(s) Document(s ) Sodium 137 mmol/L [facility] [Moles/volu Hospital me] in Serum or Plasma ID Date Data Source [id number] 04/16/2019 11:33:00 AM [facility] NOTIFICATION AND READ BACK OF CRITICAL R ESULTS TO ABILIO PALMER RN () AT 1227 ON 04/16/19 BY Elle Vizcarra.PLEASE NOTE CHANGE IN CRITICAL GLUCOSE VALUES EFFECTIVE 04/22/17.REPORTED CRITICAL VALUES SHOULD B E INTERPRETED WITHIN CLINICAL CONTEXT. Name Value Range Interpretation Description Data Sup porting Code Source(s) Document(s ) Glucose 413 mg/dL [facility] [Mass/volume Hospital ] in Serum or Plasma ID Date Data Source [id number] 04/16/2019 11:33:00 AM [facility] Value Range Interpretation Code Description Data Supporting Source(s) Document(s ) NUCLEATED RBCS 0.0 % [facility] (AUTO Hospital DIFF%)DIS ID Date Data Source [id number] 04/16/2019 11:33:00 AM [facility] Value Range Interpretation Description Data Sup porting Code Source(s) Document(s ) Differential AUTOMATED [facility] cell count [facility] method - Blood ID Date Data Source [id number] 04/16/2019 11:33:00 AM [facility] Name Value Range Interpretation Description Data Sup porting Code Source(s) Document(s ) Immature 0.02 [facility] granulocytes 10*3/uL Hospital [#/volume] in Blood by Automated count ID Date Data Source [id number] 04/16/2019 11:33:00 AM [facility] Name Value Range Interpretation Description Data Sup porting Code Source(s) Document(s ) Basophils 0.04 [facility] [#/volume] in 10*3/uL Hospital Blood by Automated count ID Date Data Source [id number] 04/16/2019 11:33:00 AM EST [facility] Name Value Range Interpretation Description Data Sup porting Code Source(s) Document(s ) Eosinophils 0.11 [facility] [#/volume] in 10*3/uL Hospital Blood by Automated count ID Date Data Source [id number] 04/16/2019 11:33:00 AM EST [facility] Name Value Range Interpretation Description Data Sup porting Code Source(s) Document(s ) Monocytes 0.60 [facility] [#/volume] in 10*3/uL Hospital Blood by Automated count ID Date Data Source [id number] 04/16/2019 11:33:00 AM EST [facility] Value Range Interpretation Description Data Sup porting Code Source(s) Document(s ) Lymphocytes 1.42 [facility] [#/volume] in 10*3/uL Hospital Blood by Automated count ID Date Data Source [id number] 04/16/2019 11:33:00 AM EST [facility] Value Range Interpretation Description Data Sup porting Code Source(s) Document(s ) Neutrophils 3.35 [facility] [#/volume] in 10*3/uL Hospital Blood by Automated count ID Date Data Source [id number] 04/16/2019 11:33:00 AM EST [facility] Value Range Interpretation Description Data Sup porting Code Source(s) Document(s ) Nucleated 0.0 % [facility] erythrocytes/10 Hospital 0 leukocytes [Ratio] in Blood by Automated count ID Date Data Source [id number] 04/16/2019 11:33:00 AM EST [facility] Name Value Range Interpretation Description Data Sup porting Code Source(s) Document(s ) Immature 0.4 % [facility] granulocytes/10 Hospital 0 leukocytes in Blood by Automated count ID Date Data Source [id number] 04/16/2019 11:33:00 AM EST [facility] Value Range Interpretation Description Data Sup porting Code Source(s) Document(s ) Basophils/100 0.7 % [facility] leukocytes in Hospital Blood by Automated count ID Date Data Source [id number] 04/16/2019 11:33:00 AM EST [facility] Name Value Range Interpretation Description Data Sup porting Code Source(s) Document(s ) Eosinophils/100 2.0 % [facility] leukocytes in Hospital Blood by Automated count ID Date Data Source [id number] 04/16/2019 11:33:00 AM EST [facility] Name Value Range Interpretation Description Data Sup porting Code Source(s) Document(s ) Monocytes/100 10.8 % [facility] leukocytes in Hospital Blood by Automated count ID Date Data Source [id number] 04/16/2019 11:33:00 AM EST [facility] Name Value Range Interpretation Description Data Sup porting Code Source(s) Document(s ) Lymphocytes/10 25.6 % [facility] 0 leukocytes Hospital in Blood by Automated count ID Date Data Source [id number] 04/16/2019 11:33:00 AM EST [facility] Name Value Range Interpretation Description Data Sup porting Code Source(s) Document(s ) Neutrophils/10 60.5 % [facility] 0 leukocytes Hospital in Blood by Automated count ID Date Data Source [id number] 04/16/2019 11:33:00 AM EST [facility] Name Value Range Interpretation Description Data Sup porting Code Source(s) Document(s ) Platelet mean 11.1 fL [facility] volume Hospital [Entitic volume] in Blood by Automated count ID Date Data Source [id number] 04/16/2019 11:33:00 AM EST [facility] Name Value Range Interpretation Description Data Sup porting Code Source(s) Document(s ) Platelets 195 [facility] [#/volume] in 10*3/uL Hospital Blood by Automated count ID Date Data Source [id number] 04/16/2019 11:33:00 AM [facility] Name Value Range Interpretation Description Data Sup porting Code Source(s) Document(s ) Erythrocyte 13.7 % [facility] Hospital width [Ratio] by Automated count ID Date Data Source [id number] 04/16/2019 11:33:00 AM [facility] Value Range Interpretation Description Data Sup porting Code Source(s) Document(s ) Erythrocyte mean 32.8 [facility] corpuscular g/dL Hospital hemoglobin concentration [Mass/volume] by Automated count ID Date Data Source [id number] 04/16/2019 11:33:00 AM [facility] Value Range Interpretation Description Data Sup porting Code Source(s) Document(s ) Erythrocyte 29.5 pg [facility] corpuscular hemoglobin [Entitic mass] by Automated count ID Date Data Source [id number] 04/16/2019 11:33:00 AM [facility] Value Range Interpretation Description Data Sup porting Code Source(s) Document(s ) Erythrocyte 89.9 fL [facility] corpuscular volume [Entitic volume] by Automated count ID Date Data Source [id number] 04/16/2019 11:33:00 AM [facility] Value Range Interpretation Description Data Sup porting Code Source(s) Document(s ) Hematocrit 38.4 % [facility] [Volume Hospital Fraction] of Blood by Automated count ID Date Data Source [id number] 04/16/2019 11:33:00 AM [facility] Value Range Interpretation Description Data Sup porting Code Source(s) Document(s ) Hemoglobin 12.6 g/dL [facility] [Mass/volume] Hospital in Blood ID Date Data Source [id number] 04/16/2019 11:33:00 AM [facility] Name Value Range Interpretation Description Data Sup porting Code Source(s) Document(s ) Erythrocytes 4.27 [facility] [#/volume] in 10*6/uL Hospital Blood by Automated count ID Date Data Source [id number] 04/16/2019 11:33:00 AM [facility] Name Value Range Interpretation Description Data Sup porting Code Source(s) Document(s ) Leukocytes 5.5 [facility] [#/volume] in 10*3/uL Hospital Blood by Automated count ID Date Data Source [id number] 04/16/2019 11:33:00 AM [facility] Name Value Range Interpretation Code Description Data Supporting Source(s) Document(s ) NUCLEATED RBCS 0.0 % [facility] (AUTO Hospital DIFF%)DIS ID Date Data Source [id number] 04/16/2019 11:33:00 AM [facility] Name Value Range Interpretation Description Data Sup porting Code Source(s) Document(s ) Differential AUTOMATED [facility] cell count [facility] method - Blood ID Date Data Source [id number] 04/07/2019 02:30:00 AM [facility] Manager Social Services:PACO MIRANDA Name Value Range Interpretation Description Data Sup porting Code Source(s) Document(s ) Glucose 373 mg/dL [facility] [Mass/volume] Hospital in Capillary blood by Glucometer ID Date Data Source [id number] 04/07/2019 02:29:00 AM [facility] Name Value Range Interpretation Description Data Sup porting Code Source(s) Document(s ) Epithelial 1+ [facility] cells.squamous [facility] [#/area] in Urine sediment by Microscopy high power field ID Date Data Source [id number] 04/07/2019 02:29:00 AM [facility] Name Value Range Interpretation Description Data Sup porting Code Source(s) Document(s ) Erythrocytes 0-3 [facility] [#/area] in /[HPF] Hospital Urine sediment by Microscopy high power field ID Date Data Source [id number] 04/07/2019 02:29:00 AM [facility] Name Value Range Interpretation Description Data Sup porting Code Source(s) Document(s ) Leukocytes 0-3 [facility] [#/area] in /[HPF] Hospital Urine sediment by Microscopy high power field ID Date Data Source [id number] 04/07/2019 02:29:00 AM [facility] Name Value Range Interpretation Description Data Sup porting Code Source(s) Document(s ) Epithelial 1+ [facility] cells.[facility] [#/area] in Urine sediment by Microscopy high power field ID Date Data Source [id number] 04/07/2019 02:29:00 AM [facility] Name Value Range Interpretation Description Data Sup porting Code Source(s) Document(s ) Erythrocytes 0-3 [facility] [#/area] in /[HPF] Hospital Urine sediment by Microscopy high power field ID Date Data Source [id number] 04/07/2019 02:29:00 AM [facility] Name Value Range Interpretation Description Data Sup porting Code Source(s) Document(s ) Leukocytes 0-3 [facility] [#/area] in /[HPF] Hospital Urine sediment by Microscopy high power field ID Date Data Source [id number] 04/07/2019 02:29:00 AM [facility] Name Value Range Interpretation Description Data Sup porting Code Source(s) Document(s ) Leukocyte NEGATIVE [facility] [Presence] in Urine by Test strip ID Date Data Source [id number] 04/07/2019 02:29:00 AM [facility] Hospital Name Value Range Interpretation Description Data Sup porting Code Source(s) Document(s ) URINE NEGATIVE [facility] NITRITES Hospital ID Date Data Source [id number] 04/07/2019 02:29:00 AM [facility] Name Value Range Interpretation Description Data Sup porting Code Source(s) Document(s ) Erythrocytes NEGATIVE [facility] [#/volume] in Hospital Urine by Test strip ID Date Data Source [id number] 04/07/2019 02:29:00 AM [facility] Name Value Range Interpretation Code Description Data Bryanna rce(s) Supporting Document(s ) Bilirubin. NEGATIVE [facility] total Hospital [Presence] in Urine by Test strip ID Date Data Source [id number] 04/07/2019 02:29:00 AM [facility] Name Value Range Interpretation Description Data Sup porting Code Source(s) Document(s ) Urobilinogen 1.0 [facility] [Units/volume] mg/dL Hospital in Urine by Test strip ID Date Data Source [id number] 04/07/2019 02:29:00 AM [facility] Hospital Name Value Range Interpretation Description Data Sup porting Code Source(s) Document(s ) Ketones NEGATIVE [facility] [Mass/volume Hospital ] in Urine by Test strip ID Date Data Source [id number] 04/07/2019 02:29:00 AM [facility] Hospital Name Value Range Interpretation Code Description Data Bryanna rce(s) Supporting Document(s ) Glucose 3+ [facility] [Mass/volume Hospital ] in Urine by Test strip ID Date Data Source [id number] 04/07/2019 02:29:00 AM EST [facility] Name Value Range Interpretation Description Data Sup porting Code Source(s) Document(s ) Protein NEGATIVE [facility] [Presence] Hospital in Urine by Test strip ID Date Data Source [id number] 04/07/2019 02:29:00 AM [facility] Name Value Range Interpretation Code Description Data Bryanna rce(s) Supporting Document(s ) pH of Urine 6.5 [facility] by Test Hospital strip ID Date Data Source [id number] 04/07/2019 02:29:00 AM [facility] Name Value Range Interpretation Code Description Data Supporting Source(s) Document(s ) Specific 1.035 [facility] gravity of Hospital Urine by Test strip ID Date Data Source [id number] 04/07/2019 02:29:00 AM [facility] Name Value Range Interpretation Description Data Sup porting Code Source(s) Document(s ) Clarity in Urine CLOUDY [facility] by Refractometry [facility] automated ID Date Data Source [id number] 04/07/2019 02:29:00 AM [facility] Name Value Range Interpretation Code Description Data Bryanna rce(s) Supporting Document(s ) Color of YELLOW [facility] Urine Hospital ID Date Data Source [id number] 04/06/2019 10:02:00 PM [facility] Name Value Range Interpretation Description Data Sup porting Code Source(s) Document(s ) Thyroxine 0.7 ng/dL [facility] (T4) free Hospital [Mass/volume] in Serum or Plasma ID Date Data Source [id number] 04/06/2019 10:02:00 PM [facility] Name Value Range Interpretation Description Data Sup porting Code Source(s) Document(s ) Thyrotropin 1.291 [facility] [Units/volume] u[IU]/mL Hospital in Serum or Plasma by Detection limit <= 0.005 mIU/L ID Date Data Source [id number] 04/06/2019 10:02:00 PM [facility] UNITS ARE IN ml/min/1.73m2.IF PATIENT IS -CYMRAES, MULTIPLY REPORTED RESULT BY 1.21. Name Value Range Interpretation Description Data Sup porting Code Source(s) Document(s ) Glomerular > 60 [facility] filtration mL/min Hospital rate/1.73 sq M.predicted [Volume Rate/Area] in Serum or Plasma by Creatinine-bas ed formula (MDRD) ID Date Data Source [id number] 04/06/2019 10:02:00 PM [facility] Name Value Range Interpretation Description Data Sup porting Code Source(s) Document(s ) Thyroxine 0.7 ng/dL [facility] (T4) free Hospital [Mass/volume] in Serum or Plasma ID Date Data Source [id number] 04/06/2019 10:02:00 PM [facility] Name Value Range Interpretation Description Data Sup porting Code Source(s) Document(s ) Thyrotropin 1.291 [facility] [Units/volume] u[IU]/mL Hospital in Serum or Plasma by Detection limit <= 0.005 mIU/L ID Date Data Source [id number] 04/06/2019 10:02:00 PM [facility] UNITS ARE IN ml/min/1.73m2.IF PATIENT IS -CYMRAES, MULTIPLY REPORTED RESULT BY 1.21. Name Value Range Interpretation Description Data Sup porting Code Source(s) Document(s ) Glomerular > 60 [facility] filtration mL/min Hospital rate/1.73 sq M.predicted [Volume Rate/Area] in Serum or Plasma by Creatinine-bas ed formula (MDRD) ID Date Data Source [id number] 04/06/2019 10:02:00 PM [facility] Name Value Range Interpretation Description Data Sup porting Code Source(s) Document(s ) Thyroxine 0.7 ng/dL [facility] (T4) free Hospital [Mass/volume] in Serum or Plasma ID Date Data Source [id number] 04/06/2019 10:02:00 PM [facility] Name Value Range Interpretation Description Data Sup porting Code Source(s) Document(s ) Thyrotropin 1.291 [facility] [Units/volume] u[IU]/mL Hospital in Serum or Plasma by Detection limit <= 0.005 mIU/L ID Date Data Source [id number] 04/06/2019 10:02:00 PM [facility] Name Value Range Interpretation Description Data Sup porting Code Source(s) Document(s ) Calcium 8.9 mg/dL [facility] [Mass/volume Hospital ] in Serum or Plasma ID Date Data Source [id number] 04/06/2019 10:02:00 PM [facility] UNITS ARE IN ml/min/1.73m2.IF PATIENT IS -CYMRAES, MULTIPLY REPORTED RESULT BY 1.21. Name Value Range Interpretation Description Data Sup porting Code Source(s) Document(s ) Glomerular > 60 [facility] filtration mL/min Hospital rate/1.73 sq M.predicted [Volume Rate/Area] in Serum or Plasma by Creatinine-bas ed formula (MDRD) ID Date Data Source [id number] 04/06/2019 10:02:00 PM [facility] Name Value Range Interpretation Code Description Data Bryanna rce(s) Supporting Document(s ) Urea 11.7 [facility] nitrogen/Cre Hospital atinine [Mass Ratio] in Serum or Plasma ID Date Data Source [id number] 04/06/2019 10:02:00 PM [facility] Name Value Range Interpretation Description Data Sup porting Code Source(s) Document(s ) Creatinine 0.6 mg/dL [facility] [Mass/volume] Hospital in Serum or Plasma ID Date Data Source [id number] 04/06/2019 10:02:00 PM [facility] Name Value Range Interpretation Description Data Sup porting Code Source(s) Document(s ) Urea nitrogen 7 mg/dL [facility] [Mass/volume] Hospital in Serum or Plasma ID Date Data Source [id number] 04/06/2019 10:02:00 PM EST [facility] Name Value Range Interpretation Code Description Data Bryanna rce(s) Supporting Document(s ) Anion gap in 9 [facility] Serum or Hospital Plasma ID Date Data Source [id number] 04/06/2019 10:02:00 PM EST [facility] Name Value Range Interpretation Description Data Sup porting Code Source(s) Document(s ) Carbon 30 mmol/L [facility] dioxide, Hospital total [Moles/volu me] in Serum or Plasma ID Date Data Source [id number] 04/06/2019 10:02:00 PM EST [facility] Name Value Range Interpretation Description Data Sup porting Code Source(s) Document(s ) Chloride 107 [facility] [Moles/volum mmol/L Hospital e] in Serum or Plasma ID Date Data Source [id number] 04/06/2019 10:02:00 PM EST [facility] Name Value Range Interpretation Description Data Sup porting Code Source(s) Document(s ) Potassium 3.3 [facility] [Moles/volume mmol/L Hospital ] in Serum or Plasma ID Date Data Source [id number] 04/06/2019 10:02:00 PM EST [facility] Name Value Range Interpretation Description Data Sup porting Code Source(s) Document(s ) Sodium 143 mmol/L [facility] [Moles/volu Hospital me] in Serum or Plasma ID Date Data Source [id number] 04/06/2019 10:02:00 PM EST [facility] Name Value Range Interpretation Description Data Sup porting Code Source(s) Document(s ) Glucose 64 mg/dL [facility] [Mass/volume Hospital ] in Serum or Plasma ID Date Data Source [id number] 04/06/2019 10:02:00 PM [facility] Name Value Range Interpretation Description Data Sup porting Code Source(s) Document(s ) Differential AUTOMATED [facility] cell count [facility] method - Blood ID Date Data Source [id number] 04/06/2019 10:02:00 PM [facility] Name Value Range Interpretation Description Data Sup porting Code Source(s) Document(s ) Immature 0.01 [facility] granulocytes 10*3/uL Hospital [#/volume] in Blood by Automated count ID Date Data Source [id number] 04/06/2019 10:02:00 PM [facility] Value Range Interpretation Description Data Sup porting Code Source(s) Document(s ) Basophils 0.04 [facility] [#/volume] in 10*3/uL [facility] Blood by Automated count ID Date Data Source [id number] 04/06/2019 10:02:00 PM [facility] Name Value Range Interpretation Description Data Sup porting Code Source(s) Document(s ) Eosinophils 0.12 [facility] [#/volume] in 10*3/uL Hospital Blood by Automated count ID Date Data Source [id number] 04/06/2019 10:02:00 PM [facility] Name Value Range Interpretation Description Data Sup porting Code Source(s) Document(s ) Monocytes 0.54 [facility] [#/volume] in 10*3/uL Hospital Blood by Automated count ID Date Data Source [id number] 04/06/2019 10:02:00 PM [facility] Name Value Range Interpretation Description Data Sup porting Code Source(s) Document(s ) Lymphocytes 1.75 [facility] [#/volume] in 10*3/uL Hospital Blood by Automated count ID Date Data Source [id number] 04/06/2019 10:02:00 PM EST [facility] Value Range Interpretation Description Data Sup porting Code Source(s) Document(s ) Neutrophils 2.75 [facility] [#/volume] in 10*3/uL Hospital Blood by Automated count ID Date Data Source [id number] 04/06/2019 10:02:00 PM [facility] Value Range Interpretation Description Data Sup porting Code Source(s) Document(s ) Nucleated 0.0 % [facility] erythrocytes/10 Hospital 0 leukocytes [Ratio] in Blood by Automated count ID Date Data Source [id number] 04/06/2019 10:02:00 PM [facility] Value Range Interpretation Description Data Sup porting Code Source(s) Document(s ) Immature 0.2 % [facility] granulocytes/10 Hospital 0 leukocytes in Blood by Automated count ID Date Data Source [id number] 04/06/2019 10:02:00 PM [facility] Value Range Interpretation Description Data Sup porting Code Source(s) Document(s ) Basophils/100 0.8 % [facility] leukocytes in [facility] Blood by Automated count ID Date Data Source [id number] 04/06/2019 10:02:00 PM [facility] Value Range Interpretation Description Data Sup porting Code Source(s) Document(s ) Eosinophils/100 2.3 % [facility] leukocytes in [facility] Blood by Automated count ID Date Data Source [id number] 04/06/2019 10:02:00 PM [facility] Value Range Interpretation Description Data Sup porting Code Source(s) Document(s ) Monocytes/100 10.4 % [facility] leukocytes in [facility] Blood by Automated count ID Date Data Source [id number] 04/06/2019 10:02:00 PM EST [facility] Name Value Range Interpretation Description Data Sup porting Code Source(s) Document(s ) Lymphocytes/10 33.6 % [facility] 0 leukocytes Hospital in Blood by Automated count ID Date Data Source [id number] 04/06/2019 10:02:00 PM EST [facility] Value Range Interpretation Description Data Sup porting Code Source(s) Document(s ) Neutrophils/10 52.7 % [facility] 0 leukocytes Hospital in Blood by Automated count ID Date Data Source [id number] 04/06/2019 10:02:00 PM [facility] Value Range Interpretation Description Data Sup porting Code Source(s) Document(s ) Platelet mean 11.5 fL [facility] volume Hospital [Entitic volume] in Blood by Automated count ID Date Data Source [id number] 04/06/2019 10:02:00 PM [facility] Value Range Interpretation Description Data Sup porting Code Source(s) Document(s ) Platelets 248 [facility] [#/volume] in 10*3/uL Hospital Blood by Automated count ID Date Data Source [id number] 04/06/2019 10:02:00 PM [facility] Value Range Interpretation Description Data Sup porting Code Source(s) Document(s ) Erythrocyte 13.8 % [facility] distribution Hospital width [Ratio] by Automated count ID Date Data Source [id number] 04/06/2019 10:02:00 PM [facility] Name Value Range Interpretation Description Data Sup porting Code Source(s) Document(s ) Erythrocyte mean 32.1 [facility] corpuscular g/dL Hospital hemoglobin concentration [Mass/volume] by Automated count ID Date Data Source [id number] 04/06/2019 10:02:00 PM [facility] Value Range Interpretation Description Data Sup porting Code Source(s) Document(s ) Erythrocyte 29.4 pg [facility] mean Hospital corpuscular hemoglobin [Entitic mass] by Automated count ID Date Data Source [id number] 04/06/2019 10:02:00 PM [facility] Name Value Range Interpretation Description Data Sup porting Code Source(s) Document(s ) Erythrocyte 91.8 fL [facility] mean Hospital corpuscular volume [Entitic volume] by Automated count ID Date Data Source [id number] 04/06/2019 10:02:00 PM [facility] Name Value Range Interpretation Description Data Sup porting Code Source(s) Document(s ) Hematocrit 39.3 % [facility] [Volume Hospital Fraction] of Blood by Automated count ID Date Data Source [id number] 04/06/2019 10:02:00 PM [facility] Value Range Interpretation Description Data Sup porting Code Source(s) Document(s ) Hemoglobin 12.6 g/dL [facility] [Mass/volume] Hospital in Blood ID Date Data Source [id number] 04/06/2019 10:02:00 PM [facility] Name Value Range Interpretation Description Data Sup porting Code Source(s) Document(s ) Erythrocytes 4.28 [facility] [#/volume] in 10*6/uL Hospital Blood by Automated count ID Date Data Source [id number] 04/06/2019 10:02:00 PM [facility] Name Value Range Interpretation Description Data Sup porting Code Source(s) Document(s ) Leukocytes 5.2 [facility] [#/volume] in 10*3/uL Hospital Blood by Automated count ID Date Data Source [id number] 03/09/2019 08:08:00 PM [facility] Manager Social Services:ADOLFO RODAS Name Value Range Interpretation Description Data Sup porting Code Source(s) Document(s ) Glucose 223 mg/dL [place] [Mass/volume] [facility] in Capillary blood by Glucometer ID Date Data Source [id number] 03/09/2019 07:35:00 PM [facility] Name Value Range Interpretation Description Data Sup porting Code Source(s) Document(s ) GLUCOSE MD Notified [place] [address] Hospital ID Date Data Source [id number] 03/09/2019 07:35:00 PM [facility] Name Value Range Interpretation Description Data Sup porting Code Source(s) Document(s ) GLUCOSE RN Notified [facility] ID Date Data Source [id number] 03/09/2019 07:35:00 PM [facility] Name Value Range Interpretation Description Data Sup porting Code Source(s) Document(s ) GLUCOSE MD Notified [place] [address] Hospital ID Date Data Source [id number] 03/09/2019 07:35:00 PM [facility] Name Value Range Interpretation Description Data Sup porting Code Source(s) Document(s ) GLUCOSE RN Notified [facility] Hospital ID Date Data Source [id number] 03/09/2019 04:21:00 PM [facility] CUT-OFF >= 25 NG/ML.THE FINDINGS OF [...] rce(s) Supporting Document(s ) PCP (UR) NEGATIVE [facility] ID Date Data Source [id number] 03/09/2019 04:21:00 PM [facility] CUT-OFF >= 50 NG/ML. Name Value Range Interpretation Code Description Data Bryanna rce(s) Supporting Document(s ) THC (UR) NEGATIVE [facility] ID Date Data Source [id number] 03/09/2019 04:21:00 PM [facility] CUT-OFF >= 300 NG/ML. Name Value Range Interpretation Description Data Sup porting Code Source(s) Document(s ) OPIATES (UR) NEGATIVE [facility] ID Date Data Source [id number] 03/09/2019 04:21:00 PM [facility] CUT-OFF >= 300 NG/ML. Name Value Range Interpretation Description Data Sup porting Code Source(s) Document(s ) COCAINE (UR) NEGATIVE [facility] ID Date Data Source [id number] 03/09/2019 04:21:00 PM [facility] CUT-OFF >= 200 NG/ML. Name Value Range Interpretation Description Data Sup porting Code Source(s) Document(s ) BENZODIAZEPINES NEGATIVE [place] (UR) [facility] ID Date Data Source [id number] 03/09/2019 04:21:00 PM [facility] CUT-OFF >= 200 NG/ML. Name Value Range Interpretation Description Data Sup porting Code Source(s) Document(s ) BARBITURATES NEGATIVE [facility] (UR) Hospital ID Date Data Source [id number] 03/09/2019 04:21:00 PM [facility] CUT-OFF >= 1000 NG/ML. Name Value Range Interpretation Description Data Sup porting Code Source(s) Document(s ) AMPHETAMINES NEGATIVE [facility] (UR) Hospital ID Date Data Source [id number] 03/09/2019 04:21:00 PM [facility] REFERENCE RANGES: NONE DETECTED <20 MG/DL NONE TO MILD EUPHORIA 20-49 MG/DL MILD EUPHORIA 50-99 MG/DL MODERATE EUPHORIA 100-149 MG/DL INTOXICATION 150-300 MG/DL Name Value Range Interpretation Description Data Sup porting Code Source(s) Document(s ) Ethanol < 20 [facility] [Mass/volume mg/dL Hospital ] in Serum or Plasma ID Date Data Source [id number] 03/09/2019 04:21:00 PM [facility] TEST RESULT IS A TOTAL TRICYCLIC [...] Code Source(s) Document(s ) TRICYCLIC < 80 [facility] ANTIDEPRESSANT ng/mL Hospital ID Date Data Source [id number] 03/09/2019 04:21:00 PM [facility] REFERENCE RANGES: ANALGESIC: 0.0 - 10.0 MG/DL. ARTHRITIC THERAPY: 15.0 - 30.0 MG/DL. Name Value Range Interpretation Description Data Sup porting Code Source(s) Document(s ) Salicylates < 3.0 [facility] [Mass/volume] mg/dL Hospital in Serum or Plasma ID Date Data Source [id number] 03/09/2019 04:21:00 PM [facility] THERAPEUTIC RANGE: 10.0-30.0 UG/MLTOXIC RANGE: 4 HRS AFTER INGESTION >150 UG/ML 12 HRS AFTER INGESTION >35 UG/ML Name Value Range Interpretation Description Data Sup porting Code Source(s) Document(s ) ACETAMINOPHEN < 10.0 [facility] ug/mL Hospital ID Date Data Source [id number] 03/09/2019 04:21:00 PM [facility] Name Value Range Interpretation Description Data Sup porting Code Source(s) Document(s ) Aspartate 46 U/L [place] aminotransferase [facility] [Enzymatic Hospital activity/volume] in Serum or Plasma ID Date Data Source [id number] 03/09/2019 04:21:00 PM EST [facility] Name Value Range Interpretation Description Data Sup porting Code Source(s) Document(s ) Alanine 31 U/L [place] aminotransferase [facility] [Enzymatic Hospital activity/volume] in Serum or Plasma ID Date Data Source [id number] 03/09/2019 04:21:00 PM EST [facility] Name Value Range Interpretation Description Data Sup porting Code Source(s) Document(s ) Alkaline 86 U/L [facility] phosphatase Hospital [Enzymatic activity/volume ] in Serum or Plasma ID Date Data Source [id number] 03/09/2019 04:21:00 PM [facility] Name Value Range Interpretation Description Data Sup porting Code Source(s) Document(s ) Bilirubin.t 0.9 mg/dL [facility] [Mass/volum e] in Serum or Plasma ID Date Data Source [id number] 03/09/2019 04:21:00 PM [facility] Name Value Range Interpretation Code Description Data Bryanna rce(s) Supporting Document(s ) Albumin/Glob 1.3 [facility] [Mass [facility] Ratio] in Serum or Plasma ID Date Data Source [id number] 03/09/2019 04:21:00 PM EST [facility] Name Value Range Interpretation Description Data Sup porting Code Source(s) Document(s ) Albumin 3.9 g/dL [facility] [Mass/volume Hospital ] in Serum or Plasma ID Date Data Source [id number] 03/09/2019 04:21:00 PM [facility] Name Value Range Interpretation Description Data Sup porting Code Source(s) Document(s ) Protein 6.9 g/dL [facility] [Mass/volume Hospital ] in Serum or Plasma ID Date Data Source [id number] 03/09/2019 04:21:00 PM [facility] Name Value Range Interpretation Code Description Data Supporting Source(s) Document(s ) NUCLEATED RBCS 0.0 % [facility] (AUTO Hospital DIFF%)DIS ID Date Data Source [id number] 03/09/2019 04:21:00 PM [facility] CUT-OFF >= 25 NG/ML.THE FINDINGS OF [...] rce(s) Supporting Document(s ) PCP (UR) NEGATIVE [facility] ID Date Data Source [id number] 03/09/2019 04:21:00 PM [facility] CUT-OFF >= 50 NG/ML. Name Value Range Interpretation Code Description Data Bryanna rce(s) Supporting Document(s ) THC (UR) NEGATIVE [facility] ID Date Data Source [id number] 03/09/2019 04:21:00 PM [facility] CUT-OFF >= 300 NG/ML. Name Value Range Interpretation Description Data Sup porting Code Source(s) Document(s ) OPIATES (UR) NEGATIVE [facility] ID Date Data Source [id number] 03/09/2019 04:21:00 PM [facility] CUT-OFF >= 300 NG/ML. Name Value Range Interpretation Description Data Sup porting Code Source(s) Document(s ) COCAINE (UR) NEGATIVE [facility] ID Date Data Source [id number] 03/09/2019 04:21:00 PM [facility] CUT-OFF >= 200 NG/ML. Name Value Range Interpretation Description Data Sup porting Code Source(s) Document(s ) BENZODIAZEPINES NEGATIVE [place] (UR) [facility] ID Date Data Source [id number] 03/09/2019 04:21:00 PM [facility] CUT-OFF >= 200 NG/ML. Name Value Range Interpretation Description Data Sup porting Code Source(s) Document(s ) BARBITURATES NEGATIVE [facility] (UR) Hospital ID Date Data Source [id number] 03/09/2019 04:21:00 PM [facility] CUT-OFF >= 1000 NG/ML. Name Value Range Interpretation Description Data Sup porting Code Source(s) Document(s ) AMPHETAMINES NEGATIVE [facility] () Hospital ID Date Data Source [id number] 03/09/2019 04:21:00 PM [facility] REFERENCE RANGES: NONE DETECTED <20 MG/DL NONE TO MILD EUPHORIA 20-49 MG/DL MILD EUPHORIA 50-99 MG/DL MODERATE EUPHORIA 100-149 MG/DL INTOXICATION 150-300 MG/DL Name Value Range Interpretation Description Data Sup porting Code Source(s) Document(s ) Ethanol < 20 [facility] [Mass/volume mg/dL [facility] ] in Serum or Plasma ID Date Data Source [id number] 03/09/2019 04:21:00 PM [facility] TEST RESULT IS A TOTAL TRICYCLIC [...] Code Source(s) Document(s ) TRICYCLIC < 80 [facility] ANTIDEPRESSANT ng/mL Hospital ID Date Data Source [id number] 03/09/2019 04:21:00 PM [facility] REFERENCE RANGES: ANALGESIC: 0.0 - 10.0 MG/DL. ARTHRITIC THERAPY: 15.0 - 30.0 MG/DL. Name Value Range Interpretation Description Data Sup porting Code Source(s) Document(s ) Salicylates < 3.0 [facility] [Mass/volume] mg/dL Hospital in Serum or Plasma ID Date Data Source [id number] 03/09/2019 04:21:00 PM [facility] THERAPEUTIC RANGE: 10.0-30.0 UG/MLTOXIC RANGE: 4 HRS AFTER INGESTION >150 UG/ML 12 HRS AFTER INGESTION >35 UG/ML Name Value Range Interpretation Description Data Sup porting Code Source(s) Document(s ) ACETAMINOPHEN < 10.0 [facility] ug/mL Hospital ID Date Data Source [id number] 03/09/2019 04:21:00 PM [facility] Name Value Range Interpretation Description Data Sup porting Code Source(s) Document(s ) Aspartate 46 U/L [place] aminotransferase [facility] [Enzymatic Hospital activity/volume] in Serum or Plasma ID Date Data Source [id number] 03/09/2019 04:21:00 PM [facility] Name Value Range Interpretation Description Data Sup porting Code Source(s) Document(s ) Alanine 31 U/L [place] aminotransferase [facility] [Enzymatic Hospital activity/volume] in Serum or Plasma ID Date Data Source [id number] 03/09/2019 04:21:00 PM [facility] Name Value Range Interpretation Description Data Sup porting Code Source(s) Document(s ) Alkaline 86 U/L [facility] phosphatase Hospital [Enzymatic activity/volume ] in Serum or Plasma ID Date Data Source [id number] 03/09/2019 04:21:00 PM [facility] Name Value Range Interpretation Description Data Sup porting Code Source(s) Document(s ) Bilirubin.t 0.9 mg/dL [facility] [Mass/volum e] in Serum or Plasma ID Date Data Source [id number] 03/09/2019 04:21:00 PM EST [facility] Name Value Range Interpretation Code Description Data Bryanna rce(s) Supporting Document(s ) Albumin/Glob 1.3 [facility] ulin [Mass Hospital Ratio] in Serum or Plasma ID Date Data Source [id number] 03/09/2019 04:21:00 PM EST [facility] Name Value Range Interpretation Description Data Sup porting Code Source(s) Document(s ) Albumin 3.9 g/dL [facility] [Mass/volume Hospital ] in Serum or Plasma ID Date Data Source [id number] 03/09/2019 04:21:00 PM EST [facility] Name Value Range Interpretation Description Data Sup porting Code Source(s) Document(s ) Protein 6.9 g/dL [facility] [Mass/volume Hospital ] in Serum or Plasma ID Date Data Source [id number] 03/09/2019 04:21:00 PM EST [facility] Name Value Range Interpretation Description Data Sup porting Code Source(s) Document(s ) Calcium 9.4 mg/dL [facility] [Mass/volume Hospital ] in Serum or Plasma ID Date Data Source [id number] 03/09/2019 04:21:00 PM EST [facility] Name Value Range Interpretation Code Description Data Bryanna rce(s) Supporting Document(s ) Urea 18.6 [facility] nitrogen/Cre Hospital atinine [Mass Ratio] in Serum or Plasma ID Date Data Source [id number] 03/09/2019 04:21:00 PM EST [facility] Name Value Range Interpretation Description Data Sup porting Code Source(s) Document(s ) Creatinine 0.7 mg/dL [facility] [Mass/volume] Hospital in Serum or Plasma ID Date Data Source [id number] 03/09/2019 04:21:00 PM EST [facility] Name Value Range Interpretation Description Data Sup porting Code Source(s) Document(s ) Urea 13 mg/dL [facility] [Mass/volume ] in Serum or Plasma ID Date Data Source [id number] 03/09/2019 04:21:00 PM EST [facility] Name Value Range Interpretation Code Description Data Bryanna rce(s) Supporting Document(s ) Anion gap in 12 [facility] Serum or [facility] Plasma ID Date Data Source [id number] 03/09/2019 04:21:00 PM [facility] Name Value Range Interpretation Description Data Sup porting Code Source(s) Document(s ) Carbon 28 mmol/L [facility] dioxide, Hospital total [Moles/volu me] in Serum or Plasma ID Date Data Source [id number] 03/09/2019 04:21:00 PM EST [facility] Name Value Range Interpretation Description Data Sup porting Code Source(s) Document(s ) Chloride 103 [facility] [Moles/volum mmol/L Hospital e] in Serum or Plasma ID Date Data Source [id number] 03/09/2019 04:21:00 PM [facility] Name Value Range Interpretation Description Data Sup porting Code Source(s) Document(s ) Potassium 4.2 [facility] [Moles/volume mmol/L Hospital ] in Serum or Plasma ID Date Data Source [id number] 03/09/2019 04:21:00 PM [facility] Name Value Range Interpretation Description Data Sup porting Code Source(s) Document(s ) Sodium 139 mmol/L [facility] [Moles/volu Hospital me] in Serum or Plasma ID Date Data Source [id number] 03/09/2019 04:21:00 PM EST [facility] Name Value Range Interpretation Description Data Sup porting Code Source(s) Document(s ) Glucose 193 mg/dL [facility] [Mass/volume Hospital ] in Serum or Plasma ID Date Data Source [id number] 03/09/2019 04:21:00 PM EST [facility] Name Value Range Interpretation Description Data Sup porting Code Source(s) Document(s ) Leukocyte NEGATIVE [facility] esterase Hospital [Presence] in Urine by Test strip ID Date Data Source [id number] 03/09/2019 04:21:00 PM [facility] Name Value Range Interpretation Description Data Sup porting Code Source(s) Document(s ) URINE NEGATIVE [facility] NITRITES Hospital ID Date Data Source [id number] 03/09/2019 04:21:00 PM EST [facility] Name Value Range Interpretation Description Data Sup porting Code Source(s) Document(s ) Erythrocytes NEGATIVE [facility] [#/volume] in Hospital Urine by Test strip ID Date Data Source [id number] 03/09/2019 04:21:00 PM EST [facility] Name Value Range Interpretation Code Description Data Bryanna rce(s) Supporting Document(s ) Bilirubin. NEGATIVE [facility] total Hospital [Presence] in Urine by Test strip ID Date Data Source [id number] 03/09/2019 04:21:00 PM EST [facility] Name Value Range Interpretation Description Data Sup porting Code Source(s) Document(s ) Urobilinogen 1.0 [facility] [Units/volume] mg/dL Hospital in Urine by Test strip ID Date Data Source [id number] 03/09/2019 04:21:00 PM EST [facility] Name Value Range Interpretation Description Data Sup porting Code Source(s) Document(s ) Ketones NEGATIVE [facility] [Mass/volume Hospital ] in Urine by Test strip ID Date Data Source [id number] 03/09/2019 04:21:00 PM EST [facility] Name Value Range Interpretation Code Description Data Bryanna rce(s) Supporting Document(s ) Glucose 2+ [facility] [Mass/volume Hospital ] in Urine by Test strip ID Date Data Source [id number] 03/09/2019 04:21:00 PM EST [facility] Name Value Range Interpretation Description Data Sup porting Code Source(s) Document(s ) Protein NEGATIVE [facility] [Presence] Hospital in Urine by Test strip ID Date Data Source [id number] 03/09/2019 04:21:00 PM EST [facility] Name Value Range Interpretation Code Description Data Bryanna rce(s) Supporting Document(s ) pH of Urine 7.5 [facility] by Test Hospital strip ID Date Data Source [id number] 03/09/2019 04:21:00 PM EST [facility] Name Value Range Interpretation Code Description Data Supporting Source(s) Document(s ) Specific 1.022 [facility] gravity of Hospital Urine by Test strip ID Date Data Source [id number] 03/09/2019 04:21:00 PM EST [facility] Name Value Range Interpretation Description Data Sup porting Code Source(s) Document(s ) Clarity in Urine CLEAR [facility] by Refractometry Hospital automated ID Date Data Source [id number] 03/09/2019 04:21:00 PM EST [facility] Name Value Range Interpretation Code Description Data Bryanna rce(s) Supporting Document(s ) Color of YELLOW [facility] Urine Hospital ID Date Data Source [id number] 03/09/2019 04:21:00 PM EST [facility] Name Value Range Interpretation Code Description Data Supporting Source(s) Document(s ) NUCLEATED RBCS 0.0 % [facility] (AUTO Hospital DIFF%)DIS ID Date Data Source [id number] 03/09/2019 04:21:00 PM [facility] Value Range Interpretation Description Data Sup porting Code Source(s) Document(s ) Differential AUTOMATED [facility] cell count Hospital method - Blood ID Date Data Source [id number] 03/09/2019 04:21:00 PM [facility] Name Value Range Interpretation Description Data Sup porting Code Source(s) Document(s ) Immature 0.01 [facility] granulocytes 10*3/uL Hospital [#/volume] in Blood by Automated count ID Date Data Source [id number] 03/09/2019 04:21:00 PM [facility] Name Value Range Interpretation Description Data Sup porting Code Source(s) Document(s ) Basophils 0.05 [facility] [#/volume] in 10*3/uL Hospital Blood by Automated count ID Date Data Source [id number] 03/09/2019 04:21:00 PM [facility] Name Value Range Interpretation Description Data Sup porting Code Source(s) Document(s ) Eosinophils 0.08 [facility] [#/volume] in 10*3/uL Hospital Blood by Automated count ID Date Data Source [id number] 03/09/2019 04:21:00 PM [facility] Name Value Range Interpretation Description Data Sup porting Code Source(s) Document(s ) Monocytes 1.06 [facility] [#/volume] in 10*3/uL Hospital Blood by Automated count ID Date Data Source [id number] 03/09/2019 04:21:00 PM [facility] Name Value Range Interpretation Description Data Sup porting Code Source(s) Document(s ) Platelet mean 11.8 fL [facility] volume Hospital [Entitic volume] in Blood by Automated count ID Date Data Source [id number] 03/09/2019 04:21:00 PM [facility] Value Range Interpretation Description Data Sup porting Code Source(s) Document(s ) Platelets 219 [facility] [#/volume] in 10*3/uL Hospital Blood by Automated count ID Date Data Source [id number] 03/09/2019 04:21:00 PM [facility] Name Value Range Interpretation Description Data Sup porting Code Source(s) Document(s ) Erythrocyte 13.3 % [facility] distribution Hospital width [Ratio] by Automated count ID Date Data Source [id number] 03/09/2019 04:21:00 PM [facility] Value Range Interpretation Description Data Sup porting Code Source(s) Document(s ) Erythrocyte mean 34.3 [facility] corpuscular g/dL Hospital hemoglobin concentration [Mass/volume] by Automated count ID Date Data Source [id number] 03/09/2019 04:21:00 PM [facility] Value Range Interpretation Description Data Sup porting Code Source(s) Document(s ) Erythrocyte 30.4 pg [facility] corpuscular hemoglobin [Entitic mass] by Automated count ID Date Data Source [id number] 03/09/2019 04:21:00 PM [facility] Value Range Interpretation Description Data Sup porting Code Source(s) Document(s ) Erythrocyte 88.6 fL [facility] corpuscular volume [Entitic volume] by Automated count ID Date Data Source [id number] 03/09/2019 04:21:00 PM [facility] Value Range Interpretation Description Data Sup porting Code Source(s) Document(s ) Hematocrit 33.5 % [facility] [Volume Hospital Fraction] of Blood by Automated count ID Date Data Source [id number] 03/09/2019 04:21:00 PM [facility] Value Range Interpretation Description Data Sup porting Code Source(s) Document(s ) Hemoglobin 11.5 g/dL [facility] [Mass/volume] Hospital in Blood ID Date Data Source [id number] 03/09/2019 04:21:00 PM [facility] Value Range Interpretation Description Data Sup porting Code Source(s) Document(s ) Erythrocytes 3.78 [facility] [#/volume] in 10*6/uL Hospital Blood by Automated count ID Date Data Source [id number] 03/09/2019 04:21:00 PM [facility] Value Range Interpretation Description Data Sup porting Code Source(s) Document(s ) Leukocytes 5.8 [facility] [#/volume] in 10*3/uL Hospital Blood by Automated count ID Date Data Source [id number] 03/09/2019 04:21:00 PM [facility] Value Range Interpretation Description Data Sup porting Code Source(s) Document(s ) Lymphocytes 2.13 [facility] [#/volume] in 10*3/uL Hospital Blood by Automated count ID Date Data Source [id number] 03/09/2019 04:21:00 PM [facility] Value Range Interpretation Description Data Sup porting Code Source(s) Document(s ) Neutrophils 2.43 [facility] [#/volume] in 10*3/uL Hospital Blood by Automated count ID Date Data Source [id number] 03/09/2019 04:21:00 PM [facility] Value Range Interpretation Description Data Sup porting Code Source(s) Document(s ) Nucleated 0.0 % [facility] erythrocytes/10 Hospital 0 leukocytes [Ratio] in Blood by Automated count ID Date Data Source [id number] 03/09/2019 04:21:00 PM EST [facility] Name Value Range Interpretation Description Data Sup porting Code Source(s) Document(s ) Immature 0.2 % [facility] granulocytes/10 Hospital 0 leukocytes in Blood by Automated count ID Date Data Source [id number] 03/09/2019 04:21:00 PM EST [facility] Name Value Range Interpretation Description Data Sup porting Code Source(s) Document(s ) Basophils/100 0.9 % [facility] leukocytes in Hospital Blood by Automated count ID Date Data Source [id number] 03/09/2019 04:21:00 PM EST [facility] Name Value Range Interpretation Description Data Sup porting Code Source(s) Document(s ) Eosinophils/100 1.4 % [facility] leukocytes in Hospital Blood by Automated count ID Date Data Source [id number] 03/09/2019 04:21:00 PM EST [facility] Name Value Range Interpretation Description Data Sup porting Code Source(s) Document(s ) Monocytes/100 18.4 % [facility] leukocytes in Hospital Blood by Automated count ID Date Data Source [id number] 03/09/2019 04:21:00 PM EST [facility] Name Value Range Interpretation Description Data Sup porting Code Source(s) Document(s ) Lymphocytes/10 37.0 % [facility] 0 leukocytes Hospital in Blood by Automated count ID Date Data Source [id number] 03/09/2019 04:21:00 PM EST [facility] Name Value Range Interpretation Description Data Sup porting Code Source(s) Document(s ) Neutrophils/10 42.1 % [facility] 0 leukocytes Hospital in Blood by Automated count ID Date Data Source [id number] 03/03/2019 04:41:00 PM EST [facility] Name Value Range Interpretation Description Data Sup porting Code Source(s) Document(s ) GLUCOSE RN Notified [facility] COMMENT2 Hospital ID Date Data Source [id number] 03/03/2019 04:41:00 PM [facility] Name Value Range Interpretation Description Data Sup porting Code Source(s) Document(s ) GLUCOSE Venous [facility] COMMENT Sent to Hospital Lab ID Date Data Source [id number] 03/03/2019 04:41:00 PM [facility] Manager Social Services:TRACIE CORTES Name Value Range Interpretation Description Data Sup porting Code Source(s) Document(s ) Glucose 296 mg/dL [facility] [Mass/volume] Hospital in Capillary blood by Glucometer ID Date Data Source [id number] 03/02/2019 05:08:00 AM [facility] ADA RECOMMENDATIONS: NON-DIABETES: 4.0-6.0% CONTROLLED DIABETES: 6.0-8.0% UNCONTROLLED DIABETE S: UP TO 20%RECOMMENDED ADA RESULT FOR THERAPY: HEMOGLOBIN A1C RESULT LESS GM N 7%.NOTE: METHOD CHANGE EFFECTIVE 11/11/14. Name Value Range Interpretation Description Data Sup porting Code Source(s) Document(s ) Hemoglobin 9.7 % [facility] A1c/Hemoglobin. Hospital total in Blood ID Date Data Source [id number] 03/02/2019 05:08:00 AM [facility] ADA RECOMMENDATIONS: NON-DIABETES: 4.0-6.0% CONTROLLED DIABETES: 6.0-8.0% UNCONTROLLED DIABETE S: UP TO 20%RECOMMENDED ADA RESULT FOR THERAPY: HEMOGLOBIN A1C RESULT LESS GM N 7%.NOTE: METHOD CHANGE EFFECTIVE 11/11/14. Name Value Range Interpretation Description Data Sup porting Code Source(s) Document(s ) Hemoglobin 9.7 % [facility] A1c/Hemoglobin. Hospital total in Blood ID Date Data Source [id number] 03/01/2019 11:03:00 PM [facility] Name Value Range Interpretation Description Data Sup porting Code Source(s) Document(s ) Methicillin MRSA TARGET White resistant DNA DETECTED [facility] aureus (MRSA) DNA [Presence] in Unspecified specimen by Probe and target amplification method Methicillin PATIENT IS White resistant PRESUMED [facility] POSITIVE FOR Hospital aureus (MRSA) MRSA DNA [Presence] COLONIZATION in Unspecified specimen by Probe and target amplification method ID Date Data Source [id number] 03/01/2019 11:03:00 PM EST [facility] Name Value Range Interpretation Description Data Sup porting Code Source(s) Document(s ) Methicillin MRSA TARGET White resistant DNA DETECTED [facility] aureus (MRSA) DNA [Presence] in Unspecified specimen by Probe and target amplification method Methicillin PATIENT IS White resistant PRESUMED [facility] POSITIVE FOR Hospital aureus (MRSA) MRSA DNA [Presence] COLONIZATION in Unspecified specimen by Probe and target amplification method ID Date Data Source [id number] 03/01/2019 10:53:00 PM EST [facility] CUT-OFF >= 25 NG/ML.THE FINDINGS OF [...] rce(s) Supporting Document(s ) PCP (UR) NEGATIVE [facility] ID Date Data Source [id number] 03/01/2019 10:53:00 PM EST [facility] CUT-OFF >= 50 NG/ML. Name Value Range Interpretation Code Description Data Bryanna rce(s) Supporting Document(s ) THC (UR) NEGATIVE [facility] ID Date Data Source [id number] 03/01/2019 10:53:00 PM EST [facility] CUT-OFF >= 300 NG/ML. Name Value Range Interpretation Description Data Sup porting Code Source(s) Document(s ) OPIATES (UR) NEGATIVE [facility] ID Date Data Source [id number] 03/01/2019 10:53:00 PM [facility] CUT-OFF >= 300 NG/ML. Name Value Range Interpretation Description Data Sup porting Code Source(s) Document(s ) COCAINE (UR) NEGATIVE [facility] ID Date Data Source [id number] 03/01/2019 10:53:00 PM [facility] CUT-OFF >= 200 NG/ML. Name Value Range Interpretation Description Data Sup porting Code Source(s) Document(s ) BENZODIAZEPINES NEGATIVE [place] (UR) [facility] ID Date Data Source [id number] 03/01/2019 10:53:00 PM [facility] CUT-OFF >= 200 NG/ML. Name Value Range Interpretation Description Data Sup porting Code Source(s) Document(s ) BARBITURATES NEGATIVE [facility] (UR) Hospital ID Date Data Source [id number] 03/01/2019 10:53:00 PM [facility] CUT-OFF >= 1000 NG/ML. Name Value Range Interpretation Description Data Sup porting Code Source(s) Document(s ) AMPHETAMINES NEGATIVE [facility] (UR) Hospital ID Date Data Source [id number] 03/01/2019 10:53:00 PM [facility] Name Value Range Interpretation Description Data Sup porting Code Source(s) Document(s ) Leukocyte NEGATIVE [facility] Hospital [Presence] in Urine by Test strip ID Date Data Source [id number] 03/01/2019 10:53:00 PM [facility] Name Value Range Interpretation Description Data Sup porting Code Source(s) Document(s ) URINE NEGATIVE [facility] NITRITE Hospital ID Date Data Source [id number] 03/01/2019 10:53:00 PM [facility] Name Value Range Interpretation Description Data Sup porting Code Source(s) Document(s ) Erythrocytes NEGATIVE [facility] [#/volume] in Hospital Urine by Test strip ID Date Data Source [id number] 03/01/2019 10:53:00 PM EST [facility] Name Value Range Interpretation Code Description Data Bryanna rce(s) Supporting Document(s ) Bilirubin. NEGATIVE [facility] total Hospital [Presence] in Urine by Test strip ID Date Data Source [id number] 03/01/2019 10:53:00 PM EST [facility] Name Value Range Interpretation Description Data Sup porting Code Source(s) Document(s ) Urobilinogen 1.0 [facility] [Units/volume] mg/dL Hospital in Urine by Test strip ID Date Data Source [id number] 03/01/2019 10:53:00 PM EST [facility] Name Value Range Interpretation Description Data Sup porting Code Source(s) Document(s ) Ketones NEGATIVE [facility] [Mass/volume Hospital ] in Urine by Test strip ID Date Data Source [id number] 03/01/2019 10:53:00 PM EST [facility] Name Value Range Interpretation Description Data Sup porting Code Source(s) Document(s ) Glucose NEGATIVE [facility] [Mass/volume Hospital ] in Urine by Test strip ID Date Data Source [id number] 03/01/2019 10:53:00 PM EST [facility] Name Value Range Interpretation Description Data Sup porting Code Source(s) Document(s ) Protein NEGATIVE [facility] [Presence] Hospital in Urine by Test strip ID Date Data Source [id number] 03/01/2019 10:53:00 PM EST [facility] Name Value Range Interpretation Code Description Data Bryanna rce(s) Supporting Document(s ) pH of Urine 8.5 [facility] by Test Hospital strip ID Date Data Source [id number] 03/01/2019 10:53:00 PM [facility] Name Value Range Interpretation Code Description Data Supporting Source(s) Document(s ) Specific 1.011 [facility] gravity of Hospital Urine by Test strip ID Date Data Source [id number] 03/01/2019 10:53:00 PM [facility] Name Value Range Interpretation Description Data Sup porting Code Source(s) Document(s ) Clarity in Urine CLEAR [facility] by Refractometry [facility] automated ID Date Data Source [id number] 03/01/2019 10:53:00 PM [facility] Name Value Range Interpretation Code Description Data Bryanna rce(s) Supporting Document(s ) Color of YELLOW [facility] Urine Hospital ID Date Data Source [id number] 03/01/2019 09:53:00 PM [facility] NOTIFICATION AND READ BACK OF CRITICAL R ESULTS TO Dr. Gunnar Carlson ON [facility] AT 2233 ON 03/01/19 BY Moshe Baker.REPORTED CRITICAL VALUES SHOULD BE INTERPRETED WITHIN CLINICAL CONTEXT. Name Value Range Interpretation Description Data Sup porting Code Source(s) Document(s ) Ammonia 117 [facility] [Moles/volum mmol/L Hospital e] in Plasma ID Date Data Source [id number] 03/01/2019 09:53:00 PM [facility] NOTIFICATION AND READ BACK OF CRITICAL R ESULTS TO Dr. Gunnar Carlson ON [facility] AT 2233 ON 03/01/19 BY Moshe Baker.REPORTED CRITICAL VALUES SHOULD BE INTERPRETED WITHIN CLINICAL CONTEXT. Name Value Range Interpretation Description Data Sup porting Code Source(s) Document(s ) Ammonia 117 [facility] [Moles/volum mmol/L Hospital e] in Plasma ID Date Data Source [id number] 03/01/2019 07:40:00 PM [facility] Name Value Range Interpretation Description Data Sup porting Code Source(s) Document(s ) Thyrotropin 1.691 [facility] [Units/volume] u[IU]/mL Hospital in Serum or Plasma by Detection limit <= 0.005 mIU/L ID Date Data Source [id number] 03/01/2019 07:40:00 PM [facility] Value Range Interpretation Description Data Sup porting Code Source(s) Document(s ) Thyrotropin 1.691 [facility] [Units/volume] u[IU]/mL Hospital in Serum or Plasma by Detection limit <= 0.005 mIU/L ID Date Data Source [id number] 03/01/2019 05:08:00 AM [facility] Name Value Range Interpretation Description Data Sup porting Code Source(s) Document(s ) Aspartate 42 U/L White aminotransferase [facility] [Enzymatic Hospital activity/volume] in Serum or Plasma ID Date Data Source [id number] 03/01/2019 05:08:00 AM [facility] Name Value Range Interpretation Description Data Sup porting Code Source(s) Document(s ) Alanine 32 U/L White aminotransferase [facility] [Enzymatic Hospital activity/volume] in Serum or Plasma ID Date Data Source [id number] 03/01/2019 05:08:00 AM [facility] Value Range Interpretation Description Data Sup porting Code Source(s) Document(s ) Alkaline 85 U/L [facility] phosphatase Hospital [Enzymatic activity/volume ] in Serum or Plasma ID Date Data Source [id number] 03/01/2019 05:08:00 AM [facility] Value Range Interpretation Description Data Sup porting Code Source(s) Document(s ) Bilirubin.t 1.1 mg/dL [facility] [Mass/volum e] in Serum or Plasma ID Date Data Source [id number] 03/01/2019 05:08:00 AM [facility] Name Value Range Interpretation Code Description Data Bryanna rce(s) Supporting Document(s ) Albumin/Glob 1.1 [facility] ulin [Mass Hospital Ratio] in Serum or Plasma ID Date Data Source [id number] 03/01/2019 05:08:00 AM [facility] Hospital Name Value Range Interpretation Description Data Sup porting Code Source(s) Document(s ) Albumin 3.3 g/dL [facility] [Mass/volume Hospital ] in Serum or Plasma ID Date Data Source [id number] 03/01/2019 05:08:00 AM [facility] Name Value Range Interpretation Description Data Sup porting Code Source(s) Document(s ) Protein 6.3 g/dL [facility] [Mass/volume Hospital ] in Serum or Plasma ID Date Data Source [id number] 03/01/2019 05:08:00 AM [facility] Name Value Range Interpretation Description Data Sup porting Code Source(s) Document(s ) Calcium 8.6 mg/dL [facility] [Mass/volume Hospital ] in Serum or Plasma ID Date Data Source [id number] 03/01/2019 05:08:00 AM [facility] Name Value Range Interpretation Code Description Data Bryanna rce(s) Supporting Document(s ) Urea 20.0 [facility] nitrogen/Cre Hospital atinine [Mass Ratio] in Serum or Plasma ID Date Data Source [id number] 03/01/2019 05:08:00 AM [facility] Hospital Name Value Range Interpretation Description Data Sup porting Code Source(s) Document(s ) Creatinine 0.7 mg/dL [facility] [Mass/volume] Hospital in Serum or Plasma ID Date Data Source [id number] 03/01/2019 05:08:00 AM EST [facility] Name Value Range Interpretation Description Data Sup porting Code Source(s) Document(s ) Urea 14 mg/dL [facility] nitrogen Hospital [Mass/volume ] in Serum or Plasma ID Date Data Source [id number] 03/01/2019 05:08:00 AM [facility] Hospital Name Value Range Interpretation Code Description Data Bryanna rce(s) Supporting Document(s ) Anion gap in 12 [facility] Serum or Hospital Plasma ID Date Data Source [id number] 03/01/2019 05:08:00 AM [facility] Hospital Name Value Range Interpretation Description Data Sup porting Code Source(s) Document(s ) Carbon 26 mmol/L [facility] dioxide, Hospital total [Moles/volu me] in Serum or Plasma ID Date Data Source [id number] 03/01/2019 05:08:00 AM [facility] Hospital Name Value Range Interpretation Description Data Sup porting Code Source(s) Document(s ) Chloride 105 [facility] [Moles/volum mmol/L Hospital e] in Serum or Plasma ID Date Data Source [id number] 03/01/2019 05:08:00 AM [facility] Hospital Name Value Range Interpretation Description Data Sup porting Code Source(s) Document(s ) Potassium 4.2 [facility] [Moles/volume mmol/L Hospital ] in Serum or Plasma ID Date Data Source [id number] 03/01/2019 05:08:00 AM [facility] Hospital Name Value Range Interpretation Description Data Sup porting Code Source(s) Document(s ) Sodium 139 mmol/L [facility] [Moles/volu Hospital me] in Serum or Plasma ID Date Data Source [id number] 03/01/2019 05:08:00 AM EST [facility] Name Value Range Interpretation Description Data Sup porting Code Source(s) Document(s ) Glucose 251 mg/dL [facility] [Mass/volume Hospital ] in Serum or Plasma ID Date Data Source [id number] 03/01/2019 05:08:00 AM [facility] Value Range Interpretation Code Description Data Supporting Source(s) Document(s ) NUCLEATED RBCS 0.0 % [facility] (AUTO Hospital DIFF%)DIS ID Date Data Source [id number] 03/01/2019 05:08:00 AM [facility] Name Value Range Interpretation Description Data Sup porting Code Source(s) Document(s ) Differential AUTOMATED [facility] cell count Hospital method - Blood ID Date Data Source [id number] 03/01/2019 05:08:00 AM [facility] Value Range Interpretation Description Data Sup porting Code Source(s) Document(s ) Immature 0.01 [facility] granulocytes 10*3/uL Hospital [#/volume] in Blood by Automated count ID Date Data Source [id number] 03/01/2019 05:08:00 AM [facility] Name Value Range Interpretation Description Data Sup porting Code Source(s) Document(s ) Basophils 0.03 [facility] [#/volume] in 10*3/uL Hospital Blood by Automated count ID Date Data Source [id number] 03/01/2019 05:08:00 AM [facility] Name Value Range Interpretation Description Data Sup porting Code Source(s) Document(s ) Eosinophils 0.21 [facility] [#/volume] in 10*3/uL Hospital Blood by Automated count ID Date Data Source [id number] 03/01/2019 05:08:00 AM [facility] Name Value Range Interpretation Description Data Sup porting Code Source(s) Document(s ) Monocytes 0.57 [facility] [#/volume] in 10*3/uL Hospital Blood by Automated count ID Date Data Source [id number] 03/01/2019 05:08:00 AM [facility] Value Range Interpretation Description Data Sup porting Code Source(s) Document(s ) Lymphocytes 1.68 [facility] [#/volume] in 10*3/uL Hospital Blood by Automated count ID Date Data Source [id number] 03/01/2019 05:08:00 AM [facility] Value Range Interpretation Description Data Sup porting Code Source(s) Document(s ) Neutrophils 2.58 [facility] [#/volume] in 10*3/uL Hospital Blood by Automated count ID Date Data Source [id number] 03/01/2019 05:08:00 AM [facility] Value Range Interpretation Description Data Sup porting Code Source(s) Document(s ) Nucleated 0.0 % [facility] erythrocytes/10 Hospital 0 leukocytes [Ratio] in Blood by Automated count ID Date Data Source [id number] 03/01/2019 05:08:00 AM [facility] Value Range Interpretation Description Data Sup porting Code Source(s) Document(s ) Immature 0.2 % [facility] granulocytes/10 Hospital 0 leukocytes in Blood by Automated count ID Date Data Source [id number] 03/01/2019 05:08:00 AM [facility] Value Range Interpretation Description Data Sup porting Code Source(s) Document(s ) Basophils/100 0.6 % [facility] leukocytes in Hospital Blood by Automated count ID Date Data Source [id number] 03/01/2019 05:08:00 AM [facility] Value Range Interpretation Description Data Sup porting Code Source(s) Document(s ) Eosinophils/100 4.1 % [facility] leukocytes in Hospital Blood by Automated count ID Date Data Source [id number] 03/01/2019 05:08:00 AM EST [facility] Name Value Range Interpretation Description Data Sup porting Code Source(s) Document(s ) Monocytes/100 11.2 % [facility] leukocytes in Hospital Blood by Automated count ID Date Data Source [id number] 03/01/2019 05:08:00 AM EST [facility] Name Value Range Interpretation Description Data Sup porting Code Source(s) Document(s ) Lymphocytes/10 33.1 % [facility] 0 leukocytes Hospital in Blood by Automated count ID Date Data Source [id number] 03/01/2019 05:08:00 AM EST [facility] Name Value Range Interpretation Description Data Sup porting Code Source(s) Document(s ) Neutrophils/10 50.8 % [facility] 0 leukocytes Hospital in Blood by Automated count ID Date Data Source [id number] 03/01/2019 05:08:00 AM [facility] Name Value Range Interpretation Description Data Sup porting Code Source(s) Document(s ) Platelet mean 11.8 fL [facility] volume Hospital [Entitic volume] in Blood by Automated count ID Date Data Source [id number] 03/01/2019 05:08:00 AM [facility] Value Range Interpretation Description Data Sup porting Code Source(s) Document(s ) Platelets 245 [facility] [#/volume] in 10*3/uL Hospital Blood by Automated count ID Date Data Source [id number] 03/01/2019 05:08:00 AM EST [facility] Name Value Range Interpretation Description Data Sup porting Code Source(s) Document(s ) Erythrocyte 14.7 % [facility] distribution Hospital width [Ratio] by Automated count ID Date Data Source [id number] 03/01/2019 05:08:00 AM EST [facility] Name Value Range Interpretation Description Data Sup porting Code Source(s) Document(s ) Erythrocyte mean 33.6 [facility] corpuscular g/dL Hospital hemoglobin concentration [Mass/volume] by Automated count ID Date Data Source [id number] 03/01/2019 05:08:00 AM [facility] Value Range Interpretation Description Data Sup porting Code Source(s) Document(s ) Erythrocyte 29.6 pg [facility] corpuscular hemoglobin [Entitic mass] by Automated count ID Date Data Source [id number] 03/01/2019 05:08:00 AM [facility] Value Range Interpretation Description Data Sup porting Code Source(s) Document(s ) Erythrocyte 88.1 fL [facility] corpuscular volume [Entitic volume] by Automated count ID Date Data Source [id number] 03/01/2019 05:08:00 AM [facility] Value Range Interpretation Description Data Sup porting Code Source(s) Document(s ) Hematocrit 34.8 % [facility] [Volume Hospital Fraction] of Blood by Automated count ID Date Data Source [id number] 03/01/2019 05:08:00 AM [facility] Value Range Interpretation Description Data Sup porting Code Source(s) Document(s ) Hemoglobin 11.7 g/dL [facility] [Mass/volume] Hospital in Blood ID Date Data Source [id number] 03/01/2019 05:08:00 AM [facility] Name Value Range Interpretation Description Data Sup porting Code Source(s) Document(s ) Erythrocytes 3.95 [facility] [#/volume] in 10*6/uL Hospital Blood by Automated count ID Date Data Source [id number] 03/01/2019 05:08:00 AM [facility] Value Range Interpretation Description Data Sup porting Code Source(s) Document(s ) Leukocytes 5.1 [facility] [#/volume] in 10*3/uL Hospital Blood by Automated count ID Date Data Source [id number] 02/15/2019 12:00:00 PM [facility] Manager Social Services:HARRIET ARGUELLO Name Value Range Interpretation Description Data Sup porting Code Source(s) Document(s ) Glucose 353 mg/dL [facility] [Mass/volume] Hospital in Capillary blood by Glucometer ID Date Data Source [id number] 02/15/2019 08:01:00 AM [facility] Name Value Range Interpretation Description Data Sup porting Code Source(s) Document(s ) GLUCOSE RN Notified [facility] ID Date Data Source [id number] 02/15/2019 07:33:00 AM [facility] UNITS ARE IN ml/min/1.73m2.IF PATIENT IS -CYMRAES, MULTIPLY REPORTED RESULT BY 1.21. Name Value Range Interpretation Description Data Sup porting Code Source(s) Document(s ) Glomerular > 60 [facility] filtration mL/min Hospital rate/1.73 sq M.predicted [Volume Rate/Area] in Serum or Plasma by Creatinine-bas ed formula (MDRD) ID Date Data Source [id number] 02/15/2019 07:33:00 AM [facility] UNITS ARE IN ml/min/1.73m2.IF PATIENT IS -CYMRAES, MULTIPLY REPORTED RESULT BY 1.21. Name Value Range Interpretation Description Data Sup porting Code Source(s) Document(s ) Glomerular > 60 [facility] filtration mL/min Hospital rate/1.73 sq M.predicted [Volume Rate/Area] in Serum or Plasma by Creatinine-bas ed formula (MDRD) ID Date Data Source [id number] 02/15/2019 07:33:00 AM [facility] Name Value Range Interpretation Description Data Sup porting Code Source(s) Document(s ) Calcium 8.5 mg/dL [facility] [Mass/volume Hospital ] in Serum or Plasma ID Date Data Source [id number] 02/15/2019 07:33:00 AM [facility] UNITS ARE IN ml/min/1.73m2.IF PATIENT IS -CYMRAES, MULTIPLY REPORTED RESULT BY 1.21. Name Value Range Interpretation Description Data Sup porting Code Source(s) Document(s ) Glomerular > 60 [facility] filtration mL/min Hospital rate/1.73 sq M.predicted [Volume Rate/Area] in Serum or Plasma by Creatinine-bas ed formula (MDRD) ID Date Data Source [id number] 02/15/2019 07:33:00 AM [facility] Name Value Range Interpretation Code Description Data Bryanna rce(s) Supporting Document(s ) Urea 16.3 [facility] nitrogen/Cre Hospital atinine [Mass Ratio] in Serum or Plasma ID Date Data Source [id number] 02/15/2019 07:33:00 AM [facility] Name Value Range Interpretation Description Data Sup porting Code Source(s) Document(s ) Creatinine 0.8 mg/dL [facility] [Mass/volume] Hospital in Serum or Plasma ID Date Data Source [id number] 02/15/2019 07:33:00 AM [facility] Name Value Range Interpretation Description Data Sup porting Code Source(s) Document(s ) Urea 13 mg/dL [facility] nitrogen Hospital [Mass/volume ] in Serum or Plasma ID Date Data Source [id number] 02/15/2019 07:33:00 AM [facility] Name Value Range Interpretation Code Description Data Bryanna rce(s) Supporting Document(s ) Anion gap in 11 [facility] Serum or [facility] Plasma ID Date Data Source [id number] 02/15/2019 07:33:00 AM [facility] Name Value Range Interpretation Description Data Sup porting Code Source(s) Document(s ) Carbon 31 mmol/L [facility] dioxide, Hospital total [Moles/volu me] in Serum or Plasma ID Date Data Source [id number] 02/15/2019 07:33:00 AM [facility] Name Value Range Interpretation Description Data Sup porting Code Source(s) Document(s ) Chloride 100 [facility] [Moles/volum mmol/L Hospital e] in Serum or Plasma ID Date Data Source [id number] 02/15/2019 07:33:00 AM [facility] Name Value Range Interpretation Description Data Sup porting Code Source(s) Document(s ) Potassium 4.3 [facility] [Moles/volume mmol/L Hospital ] in Serum or Plasma ID Date Data Source [id number] 02/15/2019 07:33:00 AM [facility] Name Value Range Interpretation Description Data Sup porting Code Source(s) Document(s ) Sodium 138 mmol/L [facility] [Moles/volu Hospital me] in Serum or Plasma ID Date Data Source [id number] 02/15/2019 07:33:00 AM [facility] NOTIFICATION AND READ BACK OF CRITICAL R ESULTS TO GEREMIAS SULLIVAN R.N/EVELIA AT 0821 ON 02/15/19 BY Sd Masterson.PLEASE NOTE CHANGE IN CRITICAL GLUCOSE VALUES EFFECTIVE 04/22/17.REPORTED CRITICAL VALUES SHOULD B E INTERPRETED WITHIN CLINICAL CONTEXT. Name Value Range Interpretation Description Data Sup porting Code Source(s) Document(s ) Glucose 581 mg/dL [facility] [Mass/volume Hospital ] in Serum or Plasma ID Date Data Source [id number] 02/14/2019 04:13:00 PM [facility] Name Value Range Interpretation Description Data Sup porting Code Source(s) Document(s ) Ammonia 50 mmol/L [facility] [Moles/volum Hospital e] in Plasma ID Date Data Source [id number] 02/14/2019 10:52:00 AM [facility] Name Value Range Interpretation Code Description Data Bryanna rce(s) Supporting Document(s ) Lipase 20 U/L [facility] [Enzymatic Hospital activity/vo lume] in Serum or Plasma ID Date Data Source [id number] 02/14/2019 10:52:00 AM [facility] REFERENCE RANGES: NONE DETECTED <20 MG/DL NONE TO MILD EUPHORIA 20-49 MG/DL MILD EUPHORIA 50-99 MG/DL MODERATE EUPHORIA 100-149 MG/DL INTOXICATION 150-300 MG/DL Name Value Range Interpretation Description Data Sup porting Code Source(s) Document(s ) Ethanol < 20 [facility] [Mass/volume mg/dL Hospital ] in Serum or Plasma ID Date Data Source [id number] 02/14/2019 10:52:00 AM [facility] TEST RESULT IS A TOTAL TRICYCLIC [...] Code Source(s) Document(s ) TRICYCLIC < 80 [facility] ANTIDEPRESSANT ng/mL Hospital ID Date Data Source [id number] 02/14/2019 10:52:00 AM [facility] REFERENCE RANGES: ANALGESIC: 0.0 - 10.0 MG/DL. ARTHRITIC THERAPY: 15.0 - 30.0 MG/DL. Name Value Range Interpretation Description Data Sup porting Code Source(s) Document(s ) Salicylates < 3.0 [facility] [Mass/volume] mg/dL Hospital in Serum or Plasma ID Date Data Source [id number] 02/14/2019 10:52:00 AM [facility] THERAPEUTIC RANGE: 10.0-30.0 UG/MLTOXIC RANGE: 4 HRS AFTER INGESTION >150 UG/ML 12 HRS AFTER INGESTION >35 UG/ML Name Value Range Interpretation Description Data Sup porting Code Source(s) Document(s ) ACETAMINOPHEN < 10.0 [facility] ug/mL Hospital ID Date Data Source [id number] 02/14/2019 10:52:00 AM [facility] Name Value Range Interpretation Code Description Data Bryanna rce(s) Supporting Document(s ) Lipase 20 U/L [facility] [Enzymatic Hospital activity/vo lume] in Serum or Plasma ID Date Data Source [id number] 02/14/2019 10:52:00 AM [facility] CUT-OFF >= 25 NG/ML.THE FINDINGS OF [...] rce(s) Supporting Document(s ) PCP (UR) NEGATIVE [facility] ID Date Data Source [id number] 02/14/2019 10:52:00 AM [facility] CUT-OFF >= 50 NG/ML. Name Value Range Interpretation Code Description Data Bryanna rce(s) Supporting Document(s ) THC (UR) NEGATIVE [facility] ID Date Data Source [id number] 02/14/2019 10:52:00 AM [facility] CUT-OFF >= 300 NG/ML. Name Value Range Interpretation Description Data Sup porting Code Source(s) Document(s ) OPIATES (UR) NEGATIVE [facility] ID Date Data Source [id number] 02/14/2019 10:52:00 AM [facility] CUT-OFF >= 300 NG/ML. Name Value Range Interpretation Description Data Sup porting Code Source(s) Document(s ) COCAINE (UR) POSITIVE [facility] ID Date Data Source [id number] 02/14/2019 10:52:00 AM [facility] CUT-OFF >= 200 NG/ML. Name Value Range Interpretation Description Data Sup porting Code Source(s) Document(s ) BENZODIAZEPINES NEGATIVE [place] (UR) [facility] ID Date Data Source [id number] 02/14/2019 10:52:00 AM [facility] CUT-OFF >= 200 NG/ML. Name Value Range Interpretation Description Data Sup porting Code Source(s) Document(s ) BARBITURATES NEGATIVE [facility] (UR) Hospital ID Date Data Source [id number] 02/14/2019 10:52:00 AM [facility] CUT-OFF >= 1000 NG/ML. Name Value Range Interpretation Description Data Sup porting Code Source(s) Document(s ) AMPHETAMINES NEGATIVE [facility] (UR) Hospital ID Date Data Source [id number] 02/14/2019 10:52:00 AM [facility] REFERENCE RANGES: NONE DETECTED <20 MG/DL NONE TO MILD EU[place] 20-49 MG/DL MILD EUPHOR[place] 50-99 MG/DL MODERATE EUPHORIA 100-149 MG/DL INTOXICATION 150-300 MG/DL Name Value Range Interpretation Description Data Sup porting Code Source(s) Document(s ) Ethanol < 20 [facility] [Mass/volume mg/dL Hospital ] in Serum or Plasma ID Date Data Source [id number] 02/14/2019 10:52:00 AM [facility] TEST RESULT IS A TOTAL TRICYCLIC [...] Code Source(s) Document(s ) TRICYCLIC < 80 [facility] ANTIDEPRESSANT ng/mL Hospital ID Date Data Source [id number] 02/14/2019 10:52:00 AM [facility] REFERENCE RANGES: ANALGESIC: 0.0 - 10.0 MG/DL. ARTHRITIC THERAPY: 15.0 - 30.0 MG/DL. Name Value Range Interpretation Description Data Sup porting Code Source(s) Document(s ) Salicylates < 3.0 [facility] [Mass/volume] mg/dL Hospital in Serum or Plasma ID Date Data Source [id number] 02/14/2019 10:52:00 AM [facility] THERAPEUTIC RANGE: 10.0-30.0 UG/MLTOXIC RANGE: 4 HRS AFTER INGESTION >150 UG/ML 12 HRS AFTER INGESTION >35 UG/ML Name Value Range Interpretation Description Data Sup porting Code Source(s) Document(s ) ACETAMINOPHEN < 10.0 [facility] ug/mL Hospital ID Date Data Source [id number] 02/14/2019 10:52:00 AM [facility] Name Value Range Interpretation Code Description Data Bryanna rce(s) Supporting Document(s ) Lipase 20 U/L [facility] [Enzymatic Hospital activity/vo lume] in Serum or Plasma ID Date Data Source [id number] 02/14/2019 10:52:00 AM [facility] Name Value Range Interpretation Description Data Sup porting Code Source(s) Document(s ) Aspartate 79 U/L [facility] aminotransferase [place] [Enzymatic Hospital activity/volume] in Serum or Plasma ID Date Data Source [id number] 02/14/2019 10:52:00 AM [facility] Name Value Range Interpretation Description Data Sup porting Code Source(s) Document(s ) Alanine 36 U/L [place] aminotransferase [place] [Enzymatic Hospital activity/volume] in Serum or Plasma ID Date Data Source [id number] 02/14/2019 10:52:00 AM [facility] Name Value Range Interpretation Description Data Sup porting Code Source(s) Document(s ) Alkaline 118 U/L [facility] phosphatase Hospital [Enzymatic activity/volume ] in Serum or Plasma ID Date Data Source [id number] 02/14/2019 10:52:00 AM [facility] Name Value Range Interpretation Description Data Sup porting Code Source(s) Document(s ) Bilirubin.t 1.2 mg/dL [facility] [Mass/volum e] in Serum or Plasma ID Date Data Source [id number] 02/14/2019 10:52:00 AM [facility] Name Value Range Interpretation Code Description Data Bryanna rce(s) Supporting Document(s ) Albumin/Glob 1.1 [facility] [Mass Hospital Ratio] in Serum or Plasma ID Date Data Source [id number] 02/14/2019 10:52:00 AM [facility] Name Value Range Interpretation Description Data Sup porting Code Source(s) Document(s ) Albumin 3.8 g/dL [facility] [Mass/volume Hospital ] in Serum or Plasma ID Date Data Source [id number] 02/14/2019 10:52:00 AM [facility] Name Value Range Interpretation Description Data Sup porting Code Source(s) Document(s ) Protein 7.2 g/dL [facility] [Mass/volume Hospital ] in Serum or Plasma ID Date Data Source [id number] 02/14/2019 10:52:00 AM EST [facility] Name Value Range Interpretation Description Data Sup porting Code Source(s) Document(s ) Leukocyte NEGATIVE [facility] esterase Hospital [Presence] in Urine by Test strip ID Date Data Source [id number] 02/14/2019 10:52:00 AM EST [facility] Name Value Range Interpretation Description Data Sup porting Code Source(s) Document(s ) URINE NEGATIVE [facility] NITRITES Hospital ID Date Data Source [id number] 02/14/2019 10:52:00 AM [facility] Hospital Name Value Range Interpretation Description Data Sup porting Code Source(s) Document(s ) Erythrocytes NEGATIVE [facility] [#/volume] in Hospital Urine by Test strip ID Date Data Source [id number] 02/14/2019 10:52:00 AM [facility] Hospital Name Value Range Interpretation Code Description Data Bryanna rce(s) Supporting Document(s ) Bilirubin. NEGATIVE [facility] total Hospital [Presence] in Urine by Test strip ID Date Data Source [id number] 02/14/2019 10:52:00 AM [facility] Hospital Name Value Range Interpretation Description Data Sup porting Code Source(s) Document(s ) Urobilinogen 1.0 [facility] [Units/volume] mg/dL Hospital in Urine by Test strip ID Date Data Source [id number] 02/14/2019 10:52:00 AM [facility] Hospital Name Value Range Interpretation Description Data Sup porting Code Source(s) Document(s ) Ketones NEGATIVE [facility] [Mass/volume Hospital ] in Urine by Test strip ID Date Data Source [id number] 02/14/2019 10:52:00 AM [facility] Hospital Name Value Range Interpretation Code Description Data Bryanna rce(s) Supporting Document(s ) Glucose 3+ [facility] [Mass/volume Hospital ] in Urine by Test strip ID Date Data Source [id number] 02/14/2019 10:52:00 AM [facility] Name Value Range Interpretation Description Data Sup porting Code Source(s) Document(s ) Protein NEGATIVE [facility] [Presence] Hospital in Urine by Test strip ID Date Data Source [id number] 02/14/2019 10:52:00 AM [facility] Name Value Range Interpretation Code Description Data Bryanna rce(s) Supporting Document(s ) pH of Urine 6.5 [facility] by Test Hospital strip ID Date Data Source [id number] 02/14/2019 10:52:00 AM [facility] Value Range Interpretation Code Description Data Supporting Source(s) Document(s ) Specific 1.039 [facility] gravity of Hospital Urine by Test strip ID Date Data Source [id number] 02/14/2019 10:52:00 AM [facility] Name Value Range Interpretation Description Data Sup porting Code Source(s) Document(s ) Clarity in Urine CLEAR [facility] by Refractometry Hospital automated ID Date Data Source [id number] 02/14/2019 10:52:00 AM [facility] Name Value Range Interpretation Code Description Data Bryanna rce(s) Supporting Document(s ) Color of YELLOW [facility] Urine Hospital ID Date Data Source [id number] 02/14/2019 10:52:00 AM [facility] Name Value Range Interpretation Description Data Sup porting Code Source(s) Document(s ) Platelet mean 11.9 fL [facility] volume Hospital [Entitic volume] in Blood by Automated count ID Date Data Source [id number] 02/14/2019 10:52:00 AM [facility] Name Value Range Interpretation Description Data Sup porting Code Source(s) Document(s ) Platelets 198 [facility] [#/volume] in 10*3/uL Hospital Blood by Automated count ID Date Data Source [id number] 02/14/2019 10:52:00 AM [facility] Value Range Interpretation Description Data Sup porting Code Source(s) Document(s ) Erythrocyte 13.7 % [facility] width [Ratio] by Automated count ID Date Data Source [id number] 02/14/2019 10:52:00 AM [facility] Value Range Interpretation Description Data Sup porting Code Source(s) Document(s ) Erythrocyte mean 34.2 [facility] corpuscular g/dL [facility] hemoglobin concentration [Mass/volume] by Automated count ID Date Data Source [id number] 02/14/2019 10:52:00 AM [facility] Value Range Interpretation Description Data Sup porting Code Source(s) Document(s ) Erythrocyte 29.6 pg [facility] corpuscular hemoglobin [Entitic mass] by Automated count ID Date Data Source [id number] 02/14/2019 10:52:00 AM [facility] Value Range Interpretation Description Data Sup porting Code Source(s) Document(s ) Erythrocyte 86.5 fL [facility] corpuscular volume [Entitic volume] by Automated count ID Date Data Source [id number] 02/14/2019 10:52:00 AM [facility] Value Range Interpretation Description Data Sup porting Code Source(s) Document(s ) Hematocrit 37.1 % [facility] [Volume Hospital Fraction] of Blood by Automated count ID Date Data Source [id number] 02/14/2019 10:52:00 AM [facility] Value Range Interpretation Description Data Sup porting Code Source(s) Document(s ) Hemoglobin 12.7 g/dL [facility] [Mass/volume] Hospital in Blood ID Date Data Source [id number] 02/14/2019 10:52:00 AM EST [facility] Name Value Range Interpretation Description Data Sup porting Code Source(s) Document(s ) Erythrocytes 4.29 [facility] [#/volume] in 10*6/uL Hospital Blood by Automated count ID Date Data Source [id number] 02/14/2019 10:52:00 AM EST [facility] Name Value Range Interpretation Description Data Sup porting Code Source(s) Document(s ) Leukocytes 5.3 [facility] [#/volume] in 10*3/uL Hospital Blood by Automated count Procedure Social History Code Duration Value Status Description Data Source(s ) Smoking 01/18/2020 Ex-smoker completed Ex-smoker [facility] 06:37:00 PM EDT (finding) (finding) Hospital Smoking 01/10/2020 Tobacco smoking completed Tobacco smoking [facility] [place] 01:14:00 AM EDT consumption consumption Hosp[facility] unknown (finding) unknown (finding) Smoking 01/08/2020 Tobacco smoking completed Tobacco smoking [facility] [place] 08:00:00 AM EDT consumption consumption Hospita l unknown (finding) unknown (finding) Smoking 12/21/2019 Never smoked completed Never smoked [facility] 06:48:00 AM EDT tobacco (finding) tobacco (find ing) Hospital Smoking 12/16/2019 Ex-smoker completed Ex-smoker [facility] 03:47:00 AM EDT (finding) (finding) Hospital Smoking 11/30/2019 Ex-smoker completed Ex-smoker [facility] 09:30:00 PM EDT (finding) (finding) Hospital Smoking 11/21/2019 Ex-smoker completed Ex-smoker [facility] 01:19:00 AM EDT (finding) (finding) Hospital Smoking 10/26/2019 Ex-smoker completed Ex-smoker [facility] 03:24:00 AM EDT (finding) (finding) Hospital Smoking 06/17/2019 Current some day completed Current some day [facility] [place] 11:02:00 PM EST smoker smoker Hospital Smoking 05/26/2019 Never smoked completed Never smoked [facility] 08:05:00 AM EST tobacco (finding) tobacco (find ing) Hospital Smoking 05/19/2019 Ex-smoker completed Ex-smoker [facility] 09:31:00 PM EST (finding) (finding) Hospital Smoking 04/16/2019 Never smoked completed Never smoked [facility] 12:50:00 PM EST tobacco (finding) tobacco (find ing) Hospital Smoking 03/02/2019 Never smoked completed Never smoked [facility] 03:31:00 PM EST tobacco (finding) tobacco (find ing) [facility] Vital Signs ID Date Data Source UNK Name Value Range Interpretation Code Description Data Source(s) Diastolic blood 76 mm[Hg] 76 mm[Hg] [facility] Systolic blood 116 mm[Hg] 116 mm[Hg] [facility] Respiratory rate 18 /min 18 /min [facility] Heart rate 69 /min 69 /min [facility] Body temperature 36.16008 [facility] 36.20876 [facility] Body temperature 97.6 [degF] 97.6 [degF] [facility] Systolic blood 131 mm[Hg] 131 mm[Hg] [facility] Diastolic blood 68 mm[Hg] 68 mm[Hg] [facility] Respiratory rate 15 /min 15 /min [facility] Heart rate 69 /min 69 /min [facility] Body mass index 20.0 kg/m2 20.0 kg/m2 [facility] (BMI) [Ratio] Hospital Body weight 110.23 [lb_av] 110.23 [lb_av] [facility] Diastolic blood 84 mm[Hg] 84 mm[Hg] [facility] Systolic blood 157 mm[Hg] 157 mm[Hg] [facility] Respiratory rate 18 /min 18 /min [facility] Heart rate 60 /min 60 /min [facility] Body temperature 36.41460 [place] 36.94299 [facility] Body temperature 97.6 [degF] 97.6 [degF] [facility] Body mass index 20.0 kg/m2 20.0 kg/m2 [facility] (BMI) [Ratio] Hospital Body weight 120.24 [lb_av] 120.24 [lb_av] [facility] Diastolic blood 87 mm[Hg] 87 mm[Hg] [facility] Systolic blood 142 mm[Hg] 142 mm[Hg] [facility] Respiratory rate 18 /min 18 /min [facility] Heart rate 55 /min 55 /min [facility] Body temperature 36.42667 Ash[place] 36.12302 [facility] Body temperature 97.8 [degF] 97.8 [degF] [facility] Body mass index 20.0 kg/m2 20.0 kg/m2 [facility] ins (BMI) [Ratio] Hospital Body weight 129.28 [lb_av] 129.28 [lb_av] [facility] Diastolic blood 90 mm[Hg] 90 mm[Hg] [facility] Systolic blood 164 mm[Hg] 164 mm[Hg] [facility] Respiratory rate 18 /min 18 /min [facility] Heart rate 85 /min 85 /min [facility] Body temperature 36.15051 [place] 36.47673 [facility] Body temperature 97.6 [degF] 97.6 [degF] [facility] Body mass index 19.0 kg/m2 19.0 kg/m2 [facility] ins (BMI) [Ratio] Hospital Body weight 121.25 [lb_av] 121.25 [lb_av] [facility] Diastolic blood 73 mm[Hg] 73 mm[Hg] [facility] Systolic blood 153 mm[Hg] 153 mm[Hg] [facility] pressure Hospital Respiratory rate 18 /min 18 /min [facility] Heart rate 55 /min 55 /min [facility] Body temperature 36.63541 [place] 36.58705 [facility] Body temperature 98.0 [degF] 98.0 [degF] [facility] Body mass index 20.2 kg/m2 20.2 kg/m2 [facility] ins (BMI) [Ratio] Hospital Body weight 125 [lb_av] 125 [lb_av] [facility] Diastolic blood 81 mm[Hg] 81 mm[Hg] [facility] Systolic blood 121 mm[Hg] 121 mm[Hg] [facility] Hospital Respiratory rate 18 /min 18 /min [facility] Heart rate 75 /min 75 /min [facility] Body temperature 36.06980 Ash[place] 36.89829 [facility] Body temperature 98.2 [degF] 98.2 [degF] [facility] Systolic blood 121 mm[Hg] 121 mm[Hg] [facility] Hospital Systolic blood 121 mm[Hg] 121 mm[Hg] [facility] Diastolic blood 72 mm[Hg] 72 mm[Hg] [facility] Diastolic blood 72 mm[Hg] 72 mm[Hg] [facility] Respiratory rate 16 /min 16 /min [facility] Respiratory rate 16 /min 16 /min [facility] Heart rate 81 /min 81 /min [facility] Heart rate 81 /min 81 /min [facility] Systolic blood 121 mm[Hg] 121 mm[Hg] [facility] Systolic blood 121 mm[Hg] 121 mm[Hg] [facility] Diastolic blood 72 mm[Hg] 72 mm[Hg] [facility] Diastolic blood 72 mm[Hg] 72 mm[Hg] [facility] Respiratory rate 16 /min 16 /min [address] [facility] Respiratory rate 16 /min 16 /min [facility] Heart rate 81 /min 81 /min [facility] Heart rate 81 /min 81 /min [facility] Systolic blood 121 mm[Hg] 121 mm[Hg] [facility] Systolic blood 121 mm[Hg] 121 mm[Hg] [facility] Diastolic blood 72 mm[Hg] 72 mm[Hg] [facility] Diastolic blood 72 mm[Hg] 72 mm[Hg] [facility] Respiratory rate 16 /min 16 /min [facility] Respiratory rate 16 /min 16 /min [facility] Heart rate 81 /min 81 /min [facility] Heart rate 81 /min 81 /min [facility] Systolic blood 124 mm[Hg] 124 mm[Hg] [facility] Diastolic blood 76 mm[Hg] 76 mm[Hg] [facility] Respiratory rate 15 /min 15 /min [facility] Heart rate 77 /min 77 /min [facility] Systolic blood 124 mm[Hg] 124 mm[Hg] [facility] Diastolic blood 76 mm[Hg] 76 mm[Hg] [facility] Respiratory rate 15 /min 15 /min [facility] Heart rate 77 /min 77 /min [facility] Body mass index 24.0 kg/m2 24.0 kg/m2 [facility] (BMI) [Ratio] Hospital Body weight 149.91 [lb_av] 149.91 [lb_av] [facility] Diastolic blood 72 mm[Hg] 72 mm[Hg] [facility] Systolic blood 132 mm[Hg] 132 mm[Hg] [facility] Respiratory rate 17 /min 17 /min [facility] Heart rate 76 /min 76 /min [facility] Body temperature 36.80342 [place] 36.91466 [facility] Body temperature 98.0 [degF] 98.0 [degF] [facility] Body mass index 24.0 kg/m2 24.0 kg/m2 [facility] (BMI) [Ratio] Hospital Body weight 150.31 [lb_av] 150.31 [lb_av] [facility] Diastolic blood 73 mm[Hg] 73 mm[Hg] [facility] Systolic blood 131 mm[Hg] 131 mm[Hg] [facility] Hospital Respiratory rate 18 /min 18 /min [facility] Heart rate 62 /min 62 /min [facility] Body temperature 37.25081 [place] 37.99390 [facility] Body temperature 98.6 [degF] 98.6 [degF] [facility] Body mass index 20.0 kg/m2 20.0 kg/m2 [facility] (BMI) [Ratio] Hospital Body weight 125.31 [lb_av] 125.31 [lb_av] [facility] Diastolic blood 86 mm[Hg] 86 mm[Hg] [facility] Systolic blood 156 mm[Hg] 156 mm[Hg] [facility] pressure Hospital Respiratory rate 18 /min 18 /min [facility] Heart rate 65 /min 65 /min [facility] Body temperature 36.77098 [place] 36.84682 [facility] Body temperature 98.2 [degF] 98.2 [degF] [facility] Body mass index 20.0 kg/m2 20.0 kg/m2 [facility] (BMI) [Ratio] Hospital Body weight 125.27 [lb_av] 125.27 [lb_av] [facility] Diastolic blood 74 mm[Hg] 74 mm[Hg] [facility] Systolic blood 136 mm[Hg] 136 mm[Hg] [facility] pressure [facility] Respiratory rate 18 /min 18 /min [facility] Heart rate 67 /min 67 /min [facility] Body temperature 36.40418 Ash[place] 36.01601 [facility] Body temperature 98.3 [degF] 98.3 [degF] [facility] Body mass index 17.0 kg/m2 17.0 kg/m2 [facility] (BMI) [Ratio] Hospital Body weight 110.23 [lb_av] 110.23 [lb_av] [facility] Diastolic blood 88 mm[Hg] 88 mm[Hg] [facility] pressure Hospital Systolic blood 147 mm[Hg] 147 mm[Hg] [facility] pressure Hospital Respiratory rate 18 /min 18 /min [facility] Heart rate 65 /min 65 /min [facility] Body temperature 37.76712 Ash[place] 37.05821 [facility] Body temperature 98.7 [degF] 98.7 [degF] [facility] Body mass index 19.0 kg/m2 19.0 kg/m2 [facility] (BMI) [Ratio] Hospital Body weight 122.25 [lb_av] 122.25 [lb_av] [facility] Diastolic blood 93 mmHg 93 mmHg [facility] Systolic blood 157 mmHg 157 mmHg [facility] Respiratory rate 16 bpm 16 bpm [facility] Heart rate 75 bpm 75 bpm [facility] Body temperature 98[facility]5 [facility] Di[facility] blood 95 mmHg 95 mmHg [facility] Systolic blood 145 mmHg 145 mmHg [facility] Respiratory rate 18 bpm 18 bpm [facility] Heart rate 86 bpm 86 bpm [facility] Body temperature 97.1 [facility] Respiratory rate 18 bpm 18 bpm [facility] Body temperature 97.9 [facility] 97.9 [facility] Diastolic blood 97 mmHg 97 mmHg [facility] Systolic blood 152 mmHg 152 mmHg [facility] Heart rate 83 bpm 83 bpm [facility] Respiratory rate 18 bpm 18 bpm [facility] Body temperature 98.7 [facility] 98.[facility] Diastolic blood 79 mmHg 79 mmHg [facility] Systolic blood 131 mmHg 131 mmHg [facility] Heart rate 78 bpm 78 bpm [facility] Diastolic blood 90 mmHg 90 mmHg [facility] Systolic blood 141 mmHg 141 mmHg [facility] Heart rate 82 bpm 82 bpm [facility] Diastolic blood 77 mmHg 77 mmHg [facility] Systolic blood 136 mmHg 136 mmHg [facility] Respiratory rate 18 bpm 18 bpm [facility] Heart rate 93 bpm 93 bpm [facility] Body temperature 97.9 [facility] 97.[facility] Body weight 129 lbs 129 lbs [facility] Diastolic blood 98 mmHg 98 mmHg [facility] Systolic blood 159 mmHg 159 mmHg [facility] Heart rate 104 bpm 104 bpm [facility] Diastolic blood 97 mmHg 97 mmHg [facility] Systolic blood 159 mmHg 159 mmHg [facility] Respiratory rate 18 bpm 18 bpm [facility] Heart rate 95 bpm 95 bpm [facility] Body temperature 98.6 [facility] Diastolic blood 90 mm[Hg] 90 mm[Hg] [facility] Systolic blood 146 mm[Hg] 146 mm[Hg] [facility] Respiratory rate 18 /min 18 /min [facility] Heart rate 77 /min 77 /min [facility] Body temperature 36.03808 Ash[place] 36.35168 [facility] Body temperature 98.1 [degF] 98.1 [degF] [facility] Body mass index 19.0 kg/m2 19.0 kg/m2 [facility] (BMI) [Ratio] Hospital Body weight 122.25 [lb_av] 122.25 [lb_av] [facility] Diastolic blood 87 mmHg 87 mmHg [facility] Systolic blood 160 mmHg 160 mmHg [facility] Heart rate 112 bpm 112 bpm [facility] Diastolic blood 91 mmHg 91 mmHg [facility] Systolic blood 142 mmHg 142 mmHg [facility] Respiratory rate 18 bpm 18 bpm [facility] Heart rate 107 bpm 107 bpm [facility] Body temperature 97.3 [facility] Diastolic blood 71 mm[Hg] 71 mm[Hg] [facility] Systolic blood 121 mm[Hg] 121 mm[Hg] [facility] Respiratory rate 18 /min 18 /min [facility] Heart rate 90 /min 90 /min [facility] Body temperature 36.72455 Ash[place] 36.19628 [facility] Body temperature 98.3 [degF] 98.3 [degF] [facility] Body mass index 24.0 kg/m2 24.0 kg/m2 [facility] (BMI) [Ratio] Hospital Body weight 139.99 [lb_av] 139.99 [lb_av] [facility] Diastolic blood 76 mm[Hg] 76 mm[Hg] [facility] Systolic blood 126 mm[Hg] 126 mm[Hg] [facility] Respiratory rate 18 /min 18 /min [facility] Heart rate 85 /min 85 /min [facility] Body temperature 37.50213 [place] 37.80383 [facility] Body temperature 98.9 [degF] 98.9 [degF] [facility] Body mass index 21.0 kg/m2 21.0 kg/m2 [facility] ins (BMI) [Ratio] Hospital Body weight 130 [lb_av] 130 [lb_av] [facility] Diastolic blood 90 mm[Hg] 90 mm[Hg] [facility] Systolic blood 159 mm[Hg] 159 mm[Hg] [facility] Respiratory rate 18 /min 18 /min [facility] Heart rate 77 /min 77 /min [facility] Body temperature 36.36467 [place] 36.97271 [facility] Body temperature 98.5 [degF] 98.5 [degF] [facility] Body mass index 20.0 kg/m2 20.0 kg/m2 [facility] ins (BMI) [Ratio] Hospital Body weight 129.28 [lb_av] 129.28 [lb_av] [facility] Diastolic blood 84 mm[Hg] 84 mm[Hg] [facility] Systolic blood 136 mm[Hg] 136 mm[Hg] [facility] Hospital Respiratory rate 18 /min 18 /min [facility] Heart rate 68 /min 68 /min [facility] Body temperature 37.53705 [place] 37.11653 [facility] Body temperature 98.7 [degF] 98.7 [degF] [facility] Body mass index 19.0 kg/m2 19.0 kg/m2 [facility] (BMI) [Ratio] Hospital Body weight 120.26 [lb_av] 120.26 [lb_av] [facility] Diastolic blood 87 mm[Hg] 87 mm[Hg] [facility] pressure Hospital Systolic blood 140 mm[Hg] 140 mm[Hg] [facility] Respiratory rate 18 /min 18 /min [facility] Heart rate 83 /min 83 /min [facility] Body temperature 36.11454 [place] 36.60766 [facility] Body temperature 98.3 [degF] 98.3 [degF] [facility] Body mass index 19.0 kg/m2 19.0 kg/m2 [facility] (BMI) [Ratio] Hospital Body weight 130.27 [lb_av] 130.27 [lb_av] [facility] Diastolic blood 103 mmHg 103 mmHg [facility] Systolic blood 183 mmHg 183 mmHg [facility] Respiratory rate 18 bpm 18 bpm [facility] Heart rate 75 bpm 75 bpm [facility] Body temperature 98.5 Fahrenheit 98.5 Fahrenh t [facility] Diastolic blood 93 mmHg 93 mmHg [facility] Systolic blood 175 mmHg 175 mmHg [facility] Respiratory rate 20 bpm 20 bpm [facility] Heart rate 86 bpm 86 bpm [facility] Diastolic blood 93 mmHg 93 mmHg [facility] Systolic blood 165 mmHg 165 mmHg [facility] Respiratory rate 20 bpm 20 bpm [facility] Heart rate 89 bpm 89 bpm [facility] Body temperature 97.1 Fahrenheit 97.1 Fahrenh t [facility] Diastolic blood 82 mmHg 82 mmHg [facility] Systolic blood 128 mmHg 128 mmHg [facility] Respiratory rate 17 bpm 17 bpm [facility] Heart rate 115 bpm 115 bpm [facility] Body temperature 97.4 Fahrenheit 97.4 Fahrenh t [facility] Diastolic blood 79 mmHg 79 mmHg [facility] Systolic blood 115 mmHg 115 mmHg [facility] Respiratory rate 17 bpm 17 bpm [facility] Heart rate 109 bpm 109 bpm [facility] Body temperature 97.4 Fahrenheit 97.4 Fahrenh t [facility] Diastolic blood 83 mm[Hg] 83 mm[Hg] [facility] Systolic blood 132 mm[Hg] 132 mm[Hg] [facility] Respiratory rate 20 /min 20 /min [facility] Heart rate 83 /min 83 /min [facility] Body temperature 36.08946 Ash[place] 36.13626 [facility] Body temperature 97.9 [degF] 97.9 [degF] [facility] Body mass index 25.8 kg/m2 25.8 kg/m2 [facility] (BMI) [Ratio] Hospital Body weight 160 [lb_av] 160 [lb_av] [facility] Diastolic blood 90 mmHg 90 mmHg [facility] Systolic blood 143 mmHg 143 mmHg [facility] Respiratory rate 18 bpm 18 bpm [facility] Heart rate 107 bpm 107 bpm [facility] Diastolic blood 71 mmHg 71 mmHg [facility] Systolic blood 111 mmHg 111 mmHg [facility] Respiratory rate 18 bpm 18 bpm [facility] Heart rate 101 bpm 101 bpm [facility] Diastolic blood 104 mmHg 104 mmHg [facility] Systolic blood 182 mmHg 182 mmHg [facility] Respiratory rate 20 bpm 20 bpm [facility] Heart rate 83 bpm 83 bpm [facility] Body temperature 97.1 Fahrenheit 97.1 Fahrenhei t [facility] Diastolic blood 103 mmHg 103 mmHg [facility] Systolic blood 163 mmHg 163 mmHg [facility] Respiratory rate 20 bpm 20 bpm [facility] Heart rate 83 bpm 83 bpm [facility] Diastolic blood 87 mmHg 87 mmHg [facility] Systolic blood 146 mmHg 146 mmHg [facility] Respiratory rate 18 bpm 18 bpm [facility] Heart rate 86 bpm 86 bpm [facility] Diastolic blood 86 mmHg 86 mmHg [facility] Systolic blood 148 mmHg 148 mmHg [facility] Respiratory rate 18 bpm 18 bpm [facility] Heart rate 85 bpm 85 bpm [facility] Body temperature 97.6 Fahrenheit 97.6 Fahrenhei t [facility] Diastolic blood 105 mmHg 105 mmHg [facility] Systolic blood 162 mmHg 162 mmHg [facility] Respiratory rate 18 bpm 18 bpm [facility] Heart rate 86 bpm 86 bpm [facility] Diastolic blood 97 mmHg 97 mmHg [facility] Systolic blood 159 mmHg 159 mmHg [facility] Respiratory rate 18 bpm 18 bpm [facility] Heart rate 82 bpm 82 bpm [facility] Diastolic blood 94 mmHg 94 mmHg [facility] Systolic blood 173 mmHg 173 mmHg [facility] Respiratory rate 18 bpm 18 bpm [facility] Heart rate 74 bpm 74 bpm [facility] Diastolic blood 82 mmHg 82 mmHg [facility] Systolic blood 159 mmHg 159 mmHg [facility] Respiratory rate 18 bpm 18 bpm [facility] Heart rate 71 bpm 71 bpm [facility] Body temperature 97.7 Fahrenheit 97.7 Fahrenhei t [facility] Diastolic blood 85 mmHg 85 mmHg [facility] Systolic blood 159 mmHg 159 mmHg [facility] Respiratory rate 18 bpm 18 bpm [facility] Heart rate 74 bpm 74 bpm [facility] Diastolic blood 83 mmHg 83 mmHg [facility] Systolic blood 144 mmHg 144 mmHg [facility] Respiratory rate 18 bpm 18 bpm [facility] Heart rate 74 bpm 74 bpm [facility] Body temperature 97.9 Fahrenheit 97.9 Fahrenhei t [facility] Diastolic blood 100 mmHg 100 mmHg [facility] Systolic blood 146 mmHg 146 mmHg [facility] Respiratory rate 18 bpm 18 bpm [facility] Heart rate 71 bpm 71 bpm [facility] Body temperature 96.9 Fahrenheit 96.9 Fahrenhei t [facility] Diastolic blood 99 mmHg 99 mmHg [facility] Systolic blood 154 mmHg 154 mmHg [facility] Respiratory rate 18 bpm 18 bpm [facility] Heart rate 73 bpm 73 bpm [facility] Body temperature 96.9 Fahrenheit 96.9 Fahrenhei t [facility] Diastolic blood 84 mmHg 84 mmHg [facility] Systolic blood 130 mmHg 130 mmHg [facility] Diastolic blood 103 mmHg 103 mmHg [facility] Systolic blood 165 mmHg 165 mmHg [facility] Respiratory rate 20 bpm 20 bpm [facility] Heart rate 78 bpm 78 bpm [facility] Diastolic blood 97 mmHg 97 mmHg [facility] Systolic blood 160 mmHg 160 mmHg [facility] Respiratory rate 20 bpm 20 bpm [facility] Heart rate 79 bpm 79 bpm [facility] Body temperature 98.8 Fahrenheit 98.8 Fahrenhei t [facility] Diastolic blood 94 mmHg 94 mmHg [facility] Systolic blood 139 mmHg 139 mmHg [facility] Respiratory rate 18 bpm 18 bpm [facility] Heart rate 79 bpm 79 bpm [facility] Diastolic blood 89 mmHg 89 mmHg [facility] Systolic blood 149 mmHg 149 mmHg [facility] Respiratory rate 18 bpm 18 bpm [facility] Heart rate 76 bpm 76 bpm [facility] Body temperature 96.3 [facility] Diastolic blood 87 mmHg 87 mmHg [facility] Systolic blood 150 mmHg 150 mmHg [facility] Respiratory rate 18 bpm 18 bpm [facility] Heart rate 90 bpm 90 bpm [facility] Diastolic blood 84 mmHg 84 mmHg [facility] Systolic blood 149 mmHg 149 mmHg [facility] Respiratory rate 18 bpm 18 bpm [facility] Heart rate 84 bpm 84 bpm [facility] Body temperature 97.1 [facility] Diastolic blood 71 mm[Hg] 71 mm[Hg] [facility] Systolic blood 112 mm[Hg] 112 mm[Hg] [facility] Heart rate 84 /min 84 /min [facility] Body temperature 36.98057 Ash[place] 36.78004 [facility] Body temperature 98.3 [degF] 98.3 [degF] [facility] Respiratory rate 18 /min 18 /min [facility] Body mass index 20.0 kg/m2 20.0 kg/m2 [facility] (BMI) [Ratio] Hospital Body weight 128.26 [lb_av] 128.26 [lb_av] [facility] ID Date Data Source [id number] 01/20/2020 11:17:10 AM [facility] Name Value Range Interpretation Code Description Data Source(s) Body weight Measured 129 lb 129 lb [facility] ID Date Data Source [id number] 01/14/2020 03:50:20 PM EDT [facility] Name Value Range Interpretation Code Description Data Source(s) Body weight Measured 129 lb 129 lb [facility] ID Date Data Source [id number] 12/22/2019 03:25:21 PM [facility] Name Value Range Interpretation Code Description Data Source(s) Body weight Measured 129 lb 129 lb [facility] ID Date Data Source [id number] 07/29/2019 03:46:49 PM [facility] Name Value Range Interpretation Code Description Data Source(s) Body weight Measured 129 lb 129 lb [facility] ID Date Data Source [id number] 05/25/2019 11:49:31 PM EST [facility] Name Value Range Interpretation Code Description Data Source(s) Body weight Measured 129 lb 129 lb [facility]
[2020-01-26] MEDS ORDERED: SODIUM CHLORIDE 1,000 ML IV STA (13:53)
--- NOTE | 2020-01-26 14:24 | PDOC ---
Documentation entered by Rafael Belle SCRIBE, acting as scribe for Miriam Ibarra MD. Miriam Ibarra MD: This documentation has been prepared by the Yoshi ybarra Angel, SCRIBE, under my direction and personally reviewed by me in its entirety. I confirm that the documentation accurately reflects all work, treatment, procedures, and medical decision making performed by me. Attending Attestation - Resident Resident Name: Doreen Bernal - ED Attending Attestation I have performed the following: I have examined & evaluated the patient, The case was reviewed & discussed with the resident, I agree w/resident's findings & plan - HPI HPI: 01/26/20 13:56 Agree with resident HPI 60 yo F PMH cirrhosis, DM, hypothyroidism, alcohol use disorder, cocaine use, bipolar disorder, depression, prior suicide attempt in May 2019 (pills, admitted to [facility]), cholecytectomy (1984), recently admitted at [facility] ICU for elevated glucose (DKA?) and elevated liver enzymes, sent from [facility] after a fall. Patient was reportedly lethargic this morning, BGM was found to be 40. Glucogon IM was given and repeat BGM was 96. Patient subsequently attempted to walk to the bathroom and had a witnessed fall. this morning pt was lethargic but arousable, BGM was done it was 40. insulin s/s has been modified. glucogon IM x one given by RN. second BGM is 68. pt then attempted to walk to the bathroom and feel (unwitnessed). BGM 182 here in the ER. 01/26/20 14:39 - Physicial Exam PE: 01/26/20 13:56 General: somnolent, responds to pain stimuli, snoring HEENT: NCAT, PERRL, EOMI, clear conjunctiva, anicteric, clear oropharynx, no oral lesions.. Neck: neck supple, FROM Resp: CTAB, normal and even respirations, no respiratory distress CVS: RRR, no murmurs, 2+ peripheral pulses throughout, no peripheral edema Abdomen: soft, NTND, no rebound or guarding. MSK: no edema, HADLEY x4, ROM intact. No clubbing or cyanosis. normal bulk and tone. Extremities: no calf tenderness Neuro: somnolent, responsive to pain stimuli Skin: warm and well perfused, cap refill <2 sec, normal color 01/26/20 14:23 - Medical Decision Making 01/26/20 14:23 Vital Signs Temp Pulse Resp BP Pulse Ox 97.2 F L 80 16 138/88 99 01/26/20 13:13 01/26/20 13:13 01/26/20 13:13 01/26/20 13:13 01/26/20 13:13 DDx AMS: infection, UTI, metabolic/electrolyte derangement, encephalopathy, dehydration, CVA, ACS, elevated ammonia, hepatic encephalopathy labs and lytes with elevated ammonia level, coags are wnl Hepatic encephalopathy? for her AMS, given she has extensive ETOH abuse history and cirrhosis. lactulose now can be given orally, for excretion of ammonia. Thyroid level is within normal limits, negative troponin. Urinalysis was clear no signs of infection. Negative alcohol. Utox_positive for cocaine neg salicylate level, neg tylenol leve CT with chronic microvascular changes no acute bleed or CVA noted. CT cervical spine with degenerative changes, no acute fx/sublux covid pending from 01/24 from [facility]. admit for hepatic encephalopathy. does not have capacity to leave, as she is waking up more. as she has intermittent AMS and encephalopathy admit to Dr Guy bashir 01/26/20 17:47 01/26/20 18:18 Heart Score/ECG Review #1 ECG reviewed & interpreted by me at: 17:55 General ECG Interpretation: Sinus Rhythm, Normal Rate 01/26/20 18:17 EKG normal sinus rhythm 84 bpm, no interval abnormalities, wide QRS, c/w RBBB, ST and T wave segments and morphology normal. Nonspecific T wave abnormalities Discharge - Discharge Information Problems reviewed: Yes Clinical Impression/Diagnosis: Hepatic encephalopathy Altered mental status Qualifiers: Altered mental status type: unspecified Qualified Code(s): R41.82 - Altered mental status, unspecified Alcohol dependence Qualifiers: Substance use status: unspecified alcohol-induced disorder Qualified Code(s): F10.29 - Alcohol dependence with unspecified alcohol-induced disorder Condition: Guarded - Admission Yes - Follow up/Referral - Patient Discharge Instructions - Post Discharge Activity
[2020-01-26 14:44] LABS: BASO % 0.4 % (0-2.0); EOS % 0.4 % (0-4.5); HEMOGLOBIN 11.9 GM/dL (10.7-15.3); LYMPH % 17.3 % (8-40); MCH 30.2 pg (25.7-33.7); MCHC 32.3 g/dl (32.0-36.0); MEAN CELL VOLUME 93.6 fl (80-96); MEAN PLT VOLUME 10.7 fl (7.5-11.1); MONO % 4.1 % (3.8-10.2); NEUT % 77.8 % (42.8-82.8); PLATELET COUNT 176 K/MM3 (134-434); RBC 3.95 M/mm3 (3.60-5.2); RDW 15.1 % (11.6-15.6); WHITE BLOOD COUNT 5.8 K/mm3 (4.0-10.0)
[2020-01-26 14:51] LABS: INR 0.91 (0.83-1.09); PROTHROMBIN TIME (PATIENT) 11.2 SEC (9.7-13.0)
[2020-01-26 14:53] LABS: ACTIVATED PTT 28.4 SECONDS (25.2-36.5)
[2020-01-26 15:16] LABS: ALBUMIN 2.7 g/dl (3.4-5.0); ALK PHOS 84 U/L (45-117); CHLORIDE 109 mmol/L (98-107); POTASSIUM 4.3 mmol/L (3.5-5.1); SODIUM 143 mmol/L (136-145)
[2020-01-26 15:23] LABS: ANION GAP 4 MMOL/L (8-16); BILIRUBIN,TOTAL 0.6 mg/dL (0.2-1); BLOOD UREA NITROGEN 12.8 mg/dL (7-18); CALCIUM 8.8 mg/dL (8.5-10.1); CO2 30 mmol/L (21-32); CREATININE 0.6 mg/dL (0.55-1.3); GLUCOSE,RANDOM 182 mg/dL (74-106); MAGNESIUM 1.8 mg/dL (1.8-2.4); SGOT/AST 41 U/L (15-37); SGPT/ALT 33 U/L (13-61); TOT PROT 6.9 g/dl (6.4-8.2)
[2020-01-26 16:26] LABS: PH,URINE 7.5 (5.0-8.0); URINE APPEARANCE CLEAR; URINE BILIRUBIN NEGATIVE (NEGATIVE); URINE COLOR YELLOW; URINE GLUCOSE (UA) TRACE (NEGATIVE); URINE KETONE NEGATIVE (NEGATIVE); URINE LEUK ESTERASE NEGATIVE (NEGATIVE); URINE NITRITE NEGATIVE (NEGATIVE); URINE PROTEIN NEGATIVE (NEGATIVE); URINE UROBILINOGEN 0.2 mg/dL (0.2-1.0)
[2020-01-26 17:10] LABS: OPIATES, URI NEGATIVE ng/ml (CUTOFF=300); PHENCYCLIDINE,URINE NEGATIVE ng/ml (CUTOFF=25); URINE BARBITURATES NEGATIVE ng/ml (CUTOFF=200); URINE BENZODIAZEPINES NEGATIVE ng/ml (CUTOFF=200)
[2020-01-26] MEDS ORDERED: LACTULOSE 20 GM/30 ML UDC (FOR ORAL USE ONLY) PO ONE (17:17)
[2020-01-26 17:26] LABS: METHADONE, UR NEGATIVE ng/ml (CUTOFF=300); URINE AMPHETAMINES NEGATIVE ng/ml (CUTOFF=500)
[2020-01-26 17:32] LABS: COCAINE, UR POSITIVE ng/ml (CUTOFF=300)
[2020-01-26] MEDS ORDERED: HALOPERIDOL LACTATE 5 MG/ML IM ONE (17:35)
--- OUTSIDE RECORDS SUMMARY | 2020-01-26 18:14 | XMS ---
:1960 [facility] Organization [facility] Care Team Providers Name Role Phone Abe Barrett DO Unavailable Unavailable Tomasz Neelkamal Unavailable Unavailable Jose F Arroyo MD Unavailable Unavailable LEONEL ALEMAN PMHNP Unavailable Unavailable MD Jimenez Unavailable Unavailable ALEK GIMENEZ Unavailable Unavailable [id number] Unavailable Unavailable MD Victor Hugo Unavailable Unavailable [...] FLEX Unavailable Unavailable Luis, C Unavailable Unavailable Hamilton, C Unavailable Unavailable Hamilton, C Unavailable Unavailable Hamilton, C Unavailable Unavailable MD Chace Unavailable Unavailable [...] is protected by Article 27-F of the [facility] Public Health law. If you continue you may haveaccess to information: Regarding HIV / AIDS; Provided by facilities licensed or operated by the [facility] Office of Mental Health; or Provided by the [facility] Office for People With Developmental Disabilities. If such information is present, then the following [facility] mandated warning applies: This information has [...] Known NO KNOWN ALLERG Michael Lewis Allergies [place] Hospital Encounters Encounter Providers Location Date Indications Data Source(s ) Outpatient Attender: 01/20/2020 [facility] ZUNASSIGNEDAdmitter: 02:47:00 PM [facility] ZUNASSIGNEDReferrer: EDT [id number] [email or web address]@, Outpatient Admitter: [id number] 01/20/2020 [facility] ZUNASSIGNED@,Referre 12:00:00 AM [facility] r: [id number] EDT ZUNASSIGNED@, Inpatient Attender: Annalee 01/18/2020 [facility] Michael Mas MDAttender: 10:14:00 AM Hospit al Anat Mckeon EDT - MDAttender: Tay 01/21/2020 Light MDAdmitter: 04:18:00 PM Anat Mckeon EDT MD SMITH Patient discharged. Outpatient Attender: CNR9 [facility] 01/17/2020 04:08:20 PM I ([facility]) Patient admitted. Outpatient Attender: LEONEL NDIAYE 01/17/2020 [facility]12[facility] YOUNG EDT Hospital Admission cancelled. Disregard status an d admitted date. 01/12/2020 02:44:00 PM EDT [facility] Patient admitted. Emergency Attender: Wu 01/10/2020 12:34:00 [...] [facility] REIDAdmitter: ALYSE EDT - 01/14/2020 [facility] CANEVA 03:29:00 PM EDT Patient discharged. Outpatient Attender: BEBE CAROL Parker 12/24/2019 07:01:00 AM [facility] MORENOAdmitter: EDT [facility] BEBE MORENOReferrer: BEBE MORENO Outpatient Attender: CHERYLEElenaLADONNA SENTHIL 12/21/2019 12:17:00 PM [facility] CANEVAAdmitter: CAMILA EDT - 12/21/2019 [facility] DISHA 05:58:00 PM EDT Patient discharged. Emergency Attender: Sharonda Mack 12/21/2019 05:35:00 CAN T WALK [place] MDAttender: Juve Cade AM EDT - 12/21/2019 [facility] DOConsultant: Corrine 11:40:00 AM EDT Rich GARCIA CANT WALK WALK Patient discharged. Inpatient Attender: Tanika Jacob 12/15/2019 05:42:00 PM DKA [place] MDAttender: Elyssa Ibarra EDT - 12/20/2019 [facility] MDAttender: Дмитрий 12:05:00 PM EDT Tiagaurav PAAttender: Juve Cade DOAdmitter: Дмитрий Russ PAConsultant: Corrine Villanueva MD DKA Patient discharged. Inpatient Attender: Amy 11/30/2019 HEPATIC [place] Ana 01:40:00 PM EDT - ENCEPHALOPATHY Hos pital MDAttender: 12/03/2019 Sharonda Mack 02:15:00 PM EDT MDAdmitter: Amy Perez MD HEPATIC ENCEPHALOPATHY Patient discharged. Inpatient Attender: Param 11/20/2019 09:17:00 DKA [place] RandhawaAttender: Elyssa Ibarra PM EDT - 11/29/2019 [facility] MDAttender: Kamlesh Yanez 10:47:00 AM EDT MDAttender: Jan Balbuena MDAttender: Abe Barrett DOAdmitter: Jan Balbuena MDConsultant: Corrine Villanueva MD DKA Patient discharged. Outpatient Attender: JAKE [facility] 11/13/2019 11:35:57 AM [facility] ([facility]) Patient admitted. Outpatient Attender: [id number] 11/02/2019 [facility] JEFF, 09:23:00 AM EDT [facility] RAdmitter: [id number] Care [facility] Юлия AGUILAR Emergency Attender: Wilfrido Zuniga 10/26/2019 HEADACHE W mera Lewis MD 02:23:00 AM EDT [facility] 10/26/2019 01:07:00 PM EDT HEADACHE EMPRESS Patient discharged. Outpatient Attender: CNR9 [facility] 10/12/2019 01:04:05 PM [facility] ([facility]) Patient admitted. Outpatient Attender: CNR9 [facility] 07/02/2019 06:26:05 [facility] Patient admitted. Inpatient Attender: CIGAlvarez 06/17/2019 06:18:00 HYPERGLYCEMI A [place] MATHEWAttender: Asif EST - 06/21/2019 [facility] Jesus MDAttender: 01:34:00 PM EDT Jose F Arroyo MDAdmitter: Asif Lee MD HYPERGLYCEMIA Patient discharged. Outpatient ST 06/01/2019 04:09:00 PM EST - [address] [place] [address] 03:46:00 PM EST Patient discharged. Attender: 05/28/2019 [place] [id number] 04:09:00 PM [facility] [id number] Inpatient Attender: Chloe Gaona 05/25/[address] [facility] MDAttender: Nura Pastrana 06:14:00 PM EST - Hospital MDAttender: Renae Carey 05/28/2019 DOAdmitter: Nura Pastrana 12:48:00 PM EST MDConsultant: Corrine Villanueva MD AMS Patient discharged. Inpatient Attender: ESTRELLITA DICKERSONV-3N 05/21/2019 09:17:00 PM [facility] FAEZAdmitter: ROBBI EST - 05/25/2019 [facility] 11:49:00 PM EST Patient discharged. Attender: 05/21/2019 [place] [id number] 09:17:00 PM [facility] 05/21/2019 [facility] 06:32:00 PM EST - Hospita l 05/21/2019 09:23:00 PM EST Patient discharged. Attender: 05/21/2019 [facility] [id number] 06:32:00 PM [place] [id number] [facility] Inpatient Attender: Bhargavi Barrera 05/19/2019 [facility] MDAttender: Tay [place] 02:27:00 PM EST Hospital DOAdmitter: Asif Royal 05/21/2019 MDConsultant: Corrine Villanueva MD 06:06:00 PM EST [place] Patient discharged. Inpatient Attender: ESTRELLITA [facility]-3N 05/18/2019 01:07:00 PM [facility] FAEZAdmitter: [facility] - 05/19/2019 Hospital [place] 11:12:00 PM EST Patient discharged. Attender: 05/18/2019 [place] [id number] 01:07:00 PM [facility]6766 Outpatient [facility] 05/18/2019 [facility] 12:56:00 PM EST - Hospita l 05/18/2019 04:24:00 PM EST Patient discharged. Attender: 05/18/2019 [place] [id number] 12:56:00 PM [place] [id number] [facility] Emergency Attender: Jose F Arroyo MDAttender: 05/17/2019 [facility] Wilfrido Thompsoner MDAttender: Aydin 07:04:00 PM [facility] Hospital Coddett MDConsultant: Jose F Arroyo - 0 AM.EMPR MDConsultant: Corrine Villanueva MD 12:57:00 PM EST SI AM.EMPR Patient discharged. Outpatient Attender: LILIA [facility] 05/17/2019 04:49:00 S judie Che[place] WASSERMANAdmitter: ABBE PM EST - 05/18/2019 Hospital EATON 02:29:00 PM EST Patient discharged. Attender: 05/17/2019 [facility] Ham [id number] 04:49:00 PM [facility]6766 Outpatient Attender: GIL NDIAYE 05/10/2019 Santino Ham ALPESHSAdmitter: ALETHA MAST 02:07:00 PM EST - Hospital 05/10/2019 07:38:00 PM EST Patient discharged. Attender: 05/10/2019 [facility] [id number] 02:07:[address] Emergency Attender: Black Bailey DO 04/29/2019 LOW B LOOD Michael Lewis 11:42:00 AM EST [facility] - 04/29/2019 AUTO 04:20:00 PM EST LOW BLOOD [facility] AUTO Patient discharged. Outpatient Attender: JA[facility] 04/23/2019 03:05:35 PM [facility] ([facility]) Patient admitted. Emergency Attender: Francy Ingram [...] Inpatient Attender: ISAAK NDIAYE-2S 03/03/2019 07:17:00 PM [facility] SOTOAdmitter: ALYSE EST - 03/08/2019 [facility] BECKI 11:13:00 PM EST Patient discharged. Attender: 03/03/2019 [facility] [id number] 07:17:00 PM [facility]67 Outpatient STV 03/03/2019 [facility] 07:02:00 PM EST - Hospita l 03/03/2019 12:59:00 PM EST Patient discharged. Attender: 03/03/2019 [place] [id number] 07:02:00 PM [facility]_6766 Inpatient Attender: Chloe Lechugafuad 03/01/2019 AMS [place] MDAttender: Mary Lara MDAttender: 07:07:00 PM E [facility] Gunnar Carlson MDAdmitter: Mary Lara 03/03/2019 MDConsultant: Corrine Villanueva MD 06:40:00 PM EST [facility] Patient discharged. Inpatient Attender: ISAAK [facility]-2S 02/15/2019 07:13:00 PM [facility] SOTOAdmitter: HOLLY MCCORD [facility] - 03/01/2019 [facility] 08:31:00 AM EST Patient discharged. Attender: 02/15/2019 [place] [id number] 07:13:00 PM [facility]6766 Outpatient [facility] 02/15/2019 [facility] 06:56:00 PM EST - Hospita 02/15/2019 09:26:00 PM EST Patient discharged. Attender: 02/15/2019 [facility] [id number] 06:56:[address] Emergency Attender: Mariano Monge 02/14/2019 DIABETIC/ [place] MDAttender: Sharonda Mack 10:27:00 AM EST [facility] Hospital MDAttender: Jose F Royal 02/15/2019 MEDS - W I MDConsultant: Corrine Villanueva MD 05:03:00 PM EST DIABETIC/[place] Patient discharged. Outpatient 01/18/2019 12:27:21 PM EDT [facility] ([facility]) Patient admitted. Emergency Attender: Black 08/22/2018 DIABETES [place] P agata Bailey 05:08:00 PM EDT - (AM.EMPRESS) Hospi klaus DOAttender: Nehemias 08/22/2018 [facility] DO 09:16:00 PM EDT DIABETES (AM.EMPRESS) P 10/08/2017 02:42:00 PM EDT FALL/LEG PAIN ARR- Health System FALL/LEG PAIN ARR- P 04/25/2009 01:14:00 PM EST RT SIDE C [facility] STUCK IN EAR Health System ARR-WALK RT SIDE [place] STUCK IN EAR ARR-W ALK Functional Status Medications Medication Brand Start Product Dose Route Administrative Pharmacy St atus Indications Reaction Description Data Name Date Form Instructions Instructions Source(s) Lactulose Lactul 01/20/ SOLUTION 10 g ORAL active White 667 MG/ML ose 2019 [place] Oral 01:56: Hospital Solution 00 PM EDT 3 ML Insuli 01/20/ INJECTIO 9 SUBCUT active [facility] 01:56: Hospit al UNT/ML Pen Lispro 00 PM Injector EDT [Humalog] Insulin Human Lispro 3 ML Insuli 01/20/ PRE-FILL 25 SUBCUT active Whi te Insulin n 2019 ED [facility] Glargine Glargi 01:56: SYRINGE Hosp ital 100 [...] Whi te Insulin n 2020 N ANEOUS [place] Lispro 100 Human 09:46: Hospit al UNT/ML Pen Lispro 00 AM Injector EDT [Humalog] Insulin Human Lispro 3 ML Insuli 12/19/ PRE-FILL 25 SUBCUT active Whi te Insulin n 2020 ED PEN ANEOUS [place] Glargine Glargi 09:46: SYRINGE Hosp ital 100 UNT/ML ne 00 AM Pen EDT Injector [Lantus] 3 ML Insuli 12/19/ INJECTIO 9 SUBCUT complet Wh ite Insulin n 2020 N ANEOUS ed [place] Lispro 100 Human 09:46: Hospit al UNT/ML Pen Lispro 00 AM Injector EDT [Humalog] Insulin Human Lispro 3 ML Insuli 12/19/ PRE-FILL 25 SUBCUT active Whi te Insulin n 2020 ED PEN ANEOUS [place] Glargine Glargi 09:46: SYRINGE Hosp ital 100 UNT/ML ne 00 AM Pen EDT Injector [Lantus] 3 ML Insuli 12/19/ PRE-FILL 25 SUBCUT complet Wh ite Insulin n 2020 ED PEN ANEOUS ed [place] Glargine Glargi 09:46: SYRINGE Hosp ital 100 UNT/ML ne 00 AM Pen EDT Injector [Lantus] 3 ML Insuli 12/19/ INJECTIO 9 SUBCUT active Whi te Insulin n 2020 N ANEOUS [place] Lispro 100 Human 09:46: Hospit al UNT/ML Pen Lispro 00 AM Injector EDT [Humalog] Insulin Human Lispro 3 ML Insuli 12/19/ PRE-FILL 25 SUBCUT active Whi te Insulin n 2020 ED PEN ANEOUS [place] Glargine Glargi 09:46: SYRINGE Hosp ital 100 UNT/ML ne 00 AM Pen EDT Injector [Lantus] 3 ML Insuli 12/19/ PRE-FILL 25 SUBCUT active Whi te Insulin n 2020 ED PEN ANEOUS [place] Glargine Glargi 09:46: SYRINGE Hosp ital 100 UNT/ML ne 00 AM Pen EDT Injector [Lantus] 3 ML Insuli 12/19/ INJECTIO 9 SUBCUT active Whi te Insulin n 2020 N ANEOUS [place] Lispro 100 Human 09:46: Hospit al UNT/ML Pen Lispro 00 AM Injector EDT [Humalog] Insulin Human Lispro 3 ML Insuli 12/19/ INJECTIO 9 SUBCUT active Whi te Insulin n 2020 N ANEOUS [place] Lispro 100 Human 09:46: Hospit al UNT/ML Pen Lispro 00 AM Injector EDT [Humalog] Insulin Human Lispro 3 ML Insuli 12/19/ PRE-FILL 25 SUBCUT active Whi te Insulin n 2020 ED PEN ANEOUS [place] Glargine Glargi 09:46: SYRINGE Hosp ital 100 UNT/ML ne 00 AM Pen EDT Injector [Lantus] 3 ML Insuli 12/19/ INJECTIO 9 SUBCUT active Whi te Insulin n 2020 N ANEOUS [place] Lispro 100 Human 09:46: Hospit al UNT/ML Pen Lispro 00 AM Injector EDT [Humalog] Insulin Human Lispro 3 ML Insuli 12/19/ PRE-FILL 25 SUBCUT complet Wh ite Insulin n 2020 ED PEN ANEOUS ed [place] Glargine Glargi 09:39: SYRINGE Hosp ital 100 UNT/ML ne 00 AM Pen EDT Injector [Lantus] 3 ML Insuli 12/19/ PRE-FILL 25 SUBCUT complet Wh ite Insulin n 2020 ED PEN ANEOUS ed [place] Glargine Glargi 09:39: SYRINGE Hosp ital 100 UNT/ML ne 00 AM Pen EDT Injector [Lantus] 3 ML Insuli 12/19/ INJECTIO 9 SUBCUT complet Wh ite Insulin n 2020 N ANEOUS ed [place] Lispro 100 Human 09:39: Hospit al UNT/ML Pen Lispro 00 AM Injector EDT [Humalog] Insulin Human Lispro 3 ML Insuli 12/19/ INJECTIO 9 SUBCUT complet Wh ite Insulin n 2020 N ANEOUS ed [place] Lispro 100 Human 09:39: Hospit al UNT/ML Pen Lispro 00 AM Injector EDT [Humalog] Insulin Human Lispro 3 ML Insuli 12/19/ INJECTIO 9 SUBCUT complet Wh ite Insulin n 2020 N ANEOUS ed [place] Lispro 100 Human 09:39: Hospit al UNT/ML Pen Lispro 00 AM Injector EDT [Humalog] Insulin Human Lispro 3 ML Insuli 12/19/ PRE-FILL 25 SUBCUT complet Wh ite Insulin n 2020 ED PEN ANEOUS ed [place] Glargine Glargi 09:39: SYRINGE Hosp ital 100 UNT/ML ne 00 AM Pen EDT Injector [Lantus] 3 ML Insuli 12/19/ PRE-FILL 25 SUBCUT complet Wh ite Insulin n 2020 ED PEN ANEOUS ed [place] Glargine Glargi 09:39: SYRINGE Hosp ital 100 UNT/ML ne 00 AM Pen EDT Injector [Lantus] 3 ML Insuli 12/19/ INJECTIO 9 SUBCUT complet Wh ite Insulin n 2020 N ANEOUS ed [place] Lispro 100 Human 09:39: Hospit al UNT/ML Pen Lispro 00 AM Injector EDT [Humalog] Insulin Human Lispro 3 ML Insuli 12/19/ PRE-FILL 25 SUBCUT complet Wh ite Insulin n 2020 ED PEN ANEOUS ed [place] Glargine Glargi 09:39: SYRINGE Hosp ital 100 UNT/ML ne 00 AM Pen EDT Injector [Lantus] 3 ML Insuli 12/19/ INJECTIO 9 SUBCUT complet Wh ite Insulin n 2020 N ANEOUS ed [place] Lispro 100 Human 09:39: Hospit al UNT/ML Pen Lispro 00 AM Injector EDT [Humalog] Insulin Human Lispro 3 ML Insuli 12/19/ PRE-FILL 25 SUBCUT complet Wh ite Insulin n 2020 ED PEN ANEOUS ed [place] Glargine Glargi 09:39: SYRINGE Hosp ital 100 UNT/ML ne 00 AM Pen EDT Injector [Lantus] 3 ML Insuli 12/19/ INJECTIO 9 SUBCUT complet Wh ite Insulin n 2020 N ANEOUS ed [place] Lispro 100 Human 09:39: Hospit al UNT/ML Pen Lispro 00 AM Injector EDT [Humalog] Insulin Human Lispro Sertraline Sertra 0817/ TABLET 2 ORAL complet [place] 50 MG Oral line 2019 {Caps ed [place] Tablet Hcl 10:26: ule} Hospital [Zoloft] 00 AM Sertraline EDT Hcl Sertraline Sertra 0817/ TABLET 2 ORAL complet [place] 50 MG Oral line 2019 {Caps ed [place] Tablet Hcl 10:26: ule} Hospital [Zoloft] 00 AM Sertraline EDT Hcl Sertraline Sertra 0817/ TABLET 2 ORAL complet [place] 50 MG Oral line 2019 {Caps ed [place] Tablet Hcl 10:26: ule} Hospital [Zoloft] 00 AM Sertraline EDT Hcl Sertraline Sertra 08/17/ TABLET 2 ORAL active W mera 50 MG Oral line 2020 {Caps [place] Tablet Hcl 10:26: ule} Hospital [Zoloft] 00 AM Sertraline EDT Hcl Sertraline Sertra 08/17/ TABLET 2 ORAL complet [place] 50 MG Oral line 2020 {Caps ed [place] Tablet Hcl 10:26: ule} Hospital [Zoloft] 00 AM Sertraline EDT Hcl Sertraline Sertra 08/17/ TABLET 2 ORAL complet [place] 50 MG Oral line 2019 {Caps ed [place] Tablet Hcl 10:26: ule} Hospital [Zoloft] 00 AM Sertraline EDT Hcl Sertraline Sertra 08/17/ TABLET 2 ORAL complet [place] 50 MG Oral line 2019 {Caps ed [place] Tablet Hcl 10:26: ule} Hospital [Zoloft] 00 AM Sertraline EDT Hcl Sertraline Sertra 08/17/ TABLET 2 ORAL complet [place] 50 MG Oral line 2019 {Caps ed [place] Tablet Hcl 10:26: ule} Hospital [Zoloft] 00 AM Sertraline EDT Hcl Omeprazole Omepra 08/14/ TABLET, 20 mg ORAL active [place] 20 MG zole 2020 DELAYED [place] Delayed 03:23: RELEASE Hospita l Release 00 PM Oral Tablet EDT Omeprazole Omepra 08/14/ TABLET, 20 mg ORAL active [place] 20 MG zole 2020 DELAYED [place] Delayed 03:23: RELEASE Hospita l Release 00 PM Oral Tablet EDT Omeprazole Omepra 08/14/ TABLET, 20 mg ORAL active [place] 20 MG zole 2020 DELAYED [place] Delayed 03:23: RELEASE Hospita l Release 00 PM Oral Tablet EDT Omeprazole Omepra 08/14/ TABLET, 20 mg ORAL active [place] 20 MG zole 2020 DELAYED [place] Delayed 03:23: RELEASE Hospita l Release 00 PM Oral Tablet EDT Omeprazole Omepra 08/14/ TABLET, 20 mg ORAL active [place] 20 MG zole 2020 DELAYED [place] Delayed 03:23: RELEASE Hospita l Release 00 PM Oral Tablet EDT Omeprazole Omepra 08/14/ TABLET, 20 mg ORAL active [place] 20 MG zole 2020 DELAYED [place] Delayed 03:23: RELEASE Hospita l Release 00 PM Oral Tablet EDT Omeprazole Omepra 08/14/ TABLET, 20 mg ORAL active [place] 20 MG zole 2020 DELAYED [place] Delayed 03:23: RELEASE Hospita l Release 00 PM Oral Tablet EDT Omeprazole Omepra 11/25/ TABLET, 20 mg ORAL active [place] 20 MG zole 2019 DELAYED [place] Delayed 03:23: RELEASE Hospita l Release 00 PM Oral Tablet EDT Sertraline Sertra 11/25/ TABLET 1 ORAL active W mera 100 MG Oral line 2019 {Caps [place] Tablet Hcl 02:36: ule} Hospital [Zoloft] 00 PM Sertraline EDT Hcl Insulin Insuli 11/25/ UNSPECIF 16 SUBCUT active [place] Glargine n 2019 IED ANEOUS [place] 100 UNT/ML Glargi 02:36: Hospi klaus Injectable ne 00 PM Solution EDT [Lantus] Sertraline Sertra 11/25/ TABLET 1 ORAL active W mera 100 MG Oral line 2019 {Caps [place] Tablet Hcl 02:36: ule} Hospital [Zoloft] 00 PM Sertraline EDT Hcl Insulin Insuli 11/25/ UNSPECIF 16 SUBCUT complet [place] Glargine n 2019 IED ANEOUS ed [place] 100 UNT/ML Glargi 02:36: Hospi klaus Injectable ne 00 PM Solution EDT [Lantus] Risperidone Risper 11/25/ TABLET 0.25 ORAL active [place] 0.5 MG Oral idone 2020 mg [place] Tablet 02:36: Hospital 00 PM EDT Sertraline Sertra 11/25/ TABLET 1 ORAL active W mera 100 MG Oral line 2019 {Caps [place] Tablet Hcl 02:36: ule} Hospital [Zoloft] 00 PM Sertraline EDT Hcl Insulin Insuli 11/25/ UNSPECIF 16 SUBCUT active [place] Glargine n 2019 IED ANEOUS [place] 100 UNT/ML Glargi 02:36: Hospi klaus Injectable ne 00 PM Solution EDT [Lantus] Insulin Insuli 11/25/ UNSPECIF 16 SUBCUT complet [place] Glargine n 2019 IED ANEOUS ed [place] 100 UNT/ML Glargi 02:36: Hospi klaus Injectable ne 00 PM Solution EDT [Lantus] Insulin Insuli 11/25/ UNSPECIF 16 SUBCUT complet [place] Glargine n 2019 IED ANEOUS ed [place] 100 UNT/ML Glargi 02:36: Hospi klaus Injectable ne 00 PM Solution EDT [Lantus] Insulin Insuli 11/25/ UNSPECIF 7 SUBCUT active [place] Lispro 100 n 2019 IED ANEOUS [place] UNT/ML Human 02:36: Hospital Injectable Lispro 00 PM Solution EDT [Humalog] Insulin Human Lispro Sertraline Sertra 08/14/ TABLET 1 ORAL active W mera 100 MG Oral line 2019 {Caps [place] Tablet Hcl 02:36: ule} Hospital [Zoloft] 00 PM Sertraline EDT Hcl Insulin Insuli 11/25/ UNSPECIF 16 SUBCUT complet [place] Glargine n 2019 IED ANEOUS ed [place] 100 UNT/ML Glargi 02:36: Hospi klaus Injectable ne 00 PM Solution EDT [Lantus] Risperidone Risper 0814/ TABLET 0.25 ORAL active [place] 0.5 MG Oral idone 2020 mg [place] Tablet 02:36: Hospital 00 PM EDT Sertraline Sertra 14/ TABLET 1 ORAL active W mera 100 MG Oral line 2020 {Caps [place] Tablet Hcl 02:36: ule} Hospital [Zoloft] 00 PM Sertraline EDT Hcl Insulin Insuli 11/25/ UNSPECIF 7 SUBCUT complet [place] Lispro 100 n 2019 IED ANEOUS ed [place] UNT/ML Human 02:36: Hospital Injectable Lispro 00 PM Solution EDT [Humalog] Insulin Human Lispro Insulin Insuli 11/25/ UNSPECIF 7 SUBCUT active [place] Lispro 100 n 2019 IED ANEOUS [place] UNT/ML Human 02:36: Hospital Injectable Lispro 00 PM Solution EDT [Humalog] Insulin Human Lispro Risperidone Risper 08/14/ TABLET 0.25 ORAL active [place] 0.5 MG Oral idone 2020 mg [place] Tablet 02:36: Hospital 00 PM EDT Sertraline Sertra 0814/ TABLET 1 ORAL active W mera 100 MG Oral line 2020 {Caps [place] Tablet Hcl 02:36: ule} Hospital [Zoloft] 00 PM Sertraline EDT Hcl Risperidone Risper 08/14/ TABLET 0.25 ORAL active [place] 0.5 MG Oral idone 2020 mg [place] Tablet 02:36: Hospital 00 PM EDT Risperidone Risper 08/14/ TABLET 0.25 ORAL active [place] 0.5 MG Oral idone 2020 mg [place] Tablet 02:36: Hospital 00 PM EDT Risperidone Risper 08/14/ TABLET 0.25 ORAL active [place] 0.5 MG Oral idone 2020 mg [place] Tablet 02:36: Hospital 00 PM EDT Sertraline Sertra 11/25/ TABLET 1 ORAL active W mera 100 MG Oral line 2019 {Caps [place] Tablet Hcl 02:36: ule} Hospital [Zoloft] 00 PM Sertraline EDT Hcl Risperidone Risper 11/25/ TABLET 0.25 ORAL active White 0.5 MG Oral idone 2020 mg [place] Tablet 02:36: Hospital 00 PM EDT Insulin Insuli 11/25/ UNSPECIF 7 SUBCUT complet [place] Lispro 100 n 2019 IED ANEOUS ed [place] UNT/ML Human 02:36: Hospital Injectable Lispro 00 PM Solution EDT [Humalog] Insulin Human Lispro Risperidone Risper 11/25/ TABLET 0.25 ORAL active [place] 0.5 MG Oral idone 2020 mg [place] Tablet 02:36: Hospital 00 PM EDT Insulin Insuli 11/25/ UNSPECIF 16 SUBCUT complet [place] Glargine n 2019 IED ANEOUS ed [place] 100 UNT/ML Glargi 02:36: Hospi klaus Injectable ne 00 PM Solution EDT [Lantus] Insulin Insuli 11/25/ UNSPECIF 7 SUBCUT complet [place] Lispro 100 n 2019 IED ANEOUS ed [place] UNT/ML Human 02:36: Hospital Injectable Lispro 00 PM Solution EDT [Humalog] Insulin Human Lispro Insulin Insuli 11/25/ UNSPECIF 7 SUBCUT complet [place] Lispro 100 n 2019 IED ANEOUS ed [place] UNT/ML Human 02:36: Hospital Injectable Lispro 00 PM Solution EDT [Humalog] Insulin Human Lispro Insulin Insuli 11/25/ UNSPECIF 7 SUBCUT complet [place] Lispro 100 n 2019 IED ANEOUS ed [place] UNT/ML Human 02:36: Hospital Injectable Lispro 00 PM Solution EDT [Humalog] Insulin Human Lispro Sertraline Sertra 11/25/ TABLET 1 ORAL active W mera 100 MG Oral line 2019 {Caps [place] Tablet Hcl 02:36: ule} Hospital [Zoloft] 00 PM Sertraline EDT Hcl Insulin Insuli 11/25/ UNSPECIF 7 SUBCUT complet [place] Lispro 100 n 2019 IED ANEOUS ed [place] UNT/ML Human 02:36: Hospital Injectable Lispro 00 PM Solution EDT [Humalog] Insulin Human Lispro Insulin Insuli 08/14/ UNSPECIF 16 SUBCUT complet [place] Glargine n 2019 IED ANEOUS ed [place] 100 UNT/ML Glargi 02:36: Hospi klaus Injectable ne 00 PM Solution EDT [Lantus] Amoxicillin Amoxic 07/14/ TABLET 1 ORAL complet [place] 875 MG / 2019 {Caps ed [place] Clavulanate Clavun 06:12: ule} Hosp ital 125 MG Oral ate 00 AM Tablet 5-12 EDT [Augmentin] 5 Amoxicillin Tablet /Clavunate * 875-125 Tablet* Amoxicillin Amoxic 07/14/ TABLET 1 ORAL complet [place] 875 MG / ill2019 {Caps ed [place] Clavulanate Clavun 06:12: ule} Hosp ital 125 MG Oral ate 00 AM Tablet -12 EDT [Augmentin] 5 Amoxicillin Tablet /Clavunate * 875-125 Tablet* Amoxicillin Amoxic 07/14/ TABLET 1 ORAL complet [place] 875 MG / 2019 {Caps ed [place] Clavulanate Clavun 06:12: ule} Hosp ital 125 MG Oral ate 00 AM Tablet -12 EDT [Augmentin] 5 Amoxicillin Tablet /Clavunate * 875-125 Tablet* Amoxicillin Amoxic 07/14/ TABLET 1 ORAL complet [place] 875 MG / 2019 {Caps ed [place] Clavulanate Clavun 06:12: ule} Hosp ital 125 MG Oral ate 00 AM Tablet 5-12 EDT [Augmentin] 5 Amoxicillin Tablet /Clavunate * 875-125 Tablet* Amoxicillin Amoxic 07/14/ TABLET 1 ORAL complet [place] 875 MG / 2019 {Caps ed [place] Clavulanate Clavun 06:12: ule} Hosp ital 125 MG Oral ate 00 AM Tablet 5-12 EDT [Augmentin] 5 Amoxicillin Tablet /Clavunate * 875-125 Tablet* Amoxicillin Amoxic 07/14/ TABLET 1 ORAL complet [facility] 875 MG / ill2019 {[facility] [place] Clavulanate Clavun 06:12: ule} [facility] 125 MG Oral ate 00 AM Tablet 5-12 EDT [Augmentin] 5 Amoxicillin Tablet /Clavunate * 875-125 Tablet* Amoxicillin Amoxic 07/14/ TABLET 1 ORAL complet [facility] 875 MG / ill2019 {[facility] [place] Clavulanate Clavun 06:12: ule} [facility] 125 MG Oral ate 00 AM Tablet 875-12 EDT [Augmentin] 5 Amoxicillin Tablet /Clavunate * 875-125 Tablet* Amoxicillin Amoxic 07/14/ TABLET 1 ORAL complet [facility] 875 MG / illin/ 2019 {[facility] [place] Clavulanate Clavun 06:12: ule} [facility] 125 MG Oral ate 00 AM Tablet 875-12 EDT [Augmentin] 5 Amoxicillin Tablet /Clavunate * 875-125 Tablet* Amoxicillin Amoxic 07/14/ TABLET 1 ORAL active [facility] 875 MG / illin/ 2020 {[facility] [place] Clavulanate Clavun 06:12: ule} [facility] 125 MG Oral ate 00 AM Tablet 875-12 EDT [Augmentin] 5 Amoxicillin Tablet /Clavunate * 875-125 Tablet* Mirtazapine Mirtaz 05/27/ TABLET 15 mg ORAL complet [facility] 15 MG Oral apine 2019 [facility] [place] Tablet 02:47: [facility] [Remeron] 00 PM EST aripiprazol Aripip 05/27/ TABLET 10 mg ORAL complet [facility] e 10 MG razole 2019 [facility] [place] Oral Tablet 02:47: Hospit al [Abilify] 00 PM Aripiprazol EST e aripiprazol Aripip 05/27/ TABLET 10 mg ORAL complet [facility] e 10 MG razole 2019 [facility] [place] Oral Tablet 02:47: Hospit al [Abilify] 00 PM Aripiprazol EST e Sertraline Sertra 05/27/ TABLET 1 ORAL active W [facility] 50 MG Oral line 2019 {[facility] [place] Tablet Hcl 02:47: ule} [facility] [Zoloft] 00 PM Sertraline EST Hcl Lactulose Lactul 05/27/ SOLUTION 10 g ORAL active [facility] 667 MG/ML ose 2020 [place] [facility] 02:47: [facility] Solution 00 PM EST Lactulose Lactul 05/27/ SOLUTION 10 g ORAL active [facility] 667 MG/ML ose 2019 [place] [facility] 02:47: [facility] Solution 00 PM EST aripiprazol Aripip 05/27/ TABLET 10 mg ORAL complet [facility] e 10 MG razole 2019 [facility] [place] Oral Tablet 02:47: Hospit al [Abilify] 00 PM Aripiprazol EST e Sertraline Sertra 05/27/ TABLET 1 ORAL active W [facility]era 50 MG Oral line 2020 {[facility] [place] Tablet Hcl 02:47: ule} Hospital [Zoloft] 00 PM Sertraline EST Hcl Sertraline Sertra 05/27/ TABLET 1 ORAL complet [facility] 50 MG Oral line 2019 {[facility] [place] Tablet Hcl 02:47: ule} Hospital [Zoloft] 00 PM Sertraline EST Hcl Sertraline Sertra 05/27/ TABLET 1 ORAL complet [facility] 50 MG Oral line 2019 {[facility] [place] [facility]t [facility]cl 02:47: ule} Hospital [Zoloft] 00 PM Sertraline EST Hcl Lactulose Lactul 05/27/ SOLUTION 10 g ORAL active [facility] 667 MG/ML ose 2020 [place] [facility] 02:47: [facility] Solution 00 PM EST Sertraline Sertra 05/27/ TABLET 1 ORAL complet [place] 50 MG Oral line 2019 {[facility] [place] Tablet Hcl 02:47: ule} Hospital [Zoloft] 00 PM Sertraline EST Hcl Lactulose Lactul 05/27/ SOLUTION 10 g ORAL active [place] 667 MG/ML ose 2020 [place] [facility] 02:47: [facility] Solution 00 PM EST Mirtazapine Mirtaz 05/27/ TABLET 15 mg ORAL complet [place] 15 MG Oral apine 2020 [facility] [place] [facility] 02:47: [facility] [Remeron] 00 PM EST Mirtazapine Mirtaz /13/ TABLET 15 mg ORAL complet [place] 15 MG Oral apine 2020 [facility] [place] [facility]t 02:47: [facility] [Remeron] 00 PM EST Mirtazapine Mirtaz 05/27/ TABLET 15 mg ORAL complet [place] 15 MG Oral apine 2020 [facility] [place] [facility]t 02:47: [facility] [Remeron] 00 PM EST Lactulose Lactul 05/27/ SOLUTION 10 g ORAL complet [place] 667 MG/ML ose 2020 [facility] [place] [facility] 02:47: [facility] Solution 00 PM EST Lactulose Lactul 13/ SOLUTION 10 g ORAL active [place] 667 MG/ML ose 2020 [place] [facility] 02:47: [facility] Solution 00 PM EST Mirtazapine Mirtaz // TABLET 15 mg ORAL complet [facility] 15 MG Oral apine 2020 [facility] [place] [facility]t 02:47: [facility] [Remeron] 00 PM EST Lactulose Lactul 05/27/ SOLUTION 10 g ORAL active [place] 667 MG/ML ose 2020 [place] [facility] 02:47: [facility] Solution 00 PM EST Mirtazapine Mirtaz 02/13/ TABLET 15 mg ORAL complet [place] 15 MG Oral apine 2019 [facility] [place] [facility] 02:47: [facility] [Remeron] 00 PM EST Mirtazapine Mirtaz 05/27/ TABLET 15 mg ORAL active [place] 15 MG Oral apine 2020 [place] [facility] 02:47: [facility] [Remeron] 00 PM EST Mirtazapine Mirtaz 05/27/ TABLET 15 mg ORAL complet [facility] 15 MG Oral apine 2020 [facility] [place] [facility] 02:47: [facility] [Remeron] 00 PM EST aripiprazol Aripip 05/27/ TABLET 10 mg ORAL complet [facility] e 10 MG razole 2019 ed [place] [facility]t 02:47: Hospit al [Abilify] 00 PM Aripiprazol EST e aripiprazol Aripip 05/27/ TABLET 10 mg ORAL complet [facility] e 10 MG razole 2019 ed [place] [facility]t 02:47: Hospit al [Abilify] 00 PM Aripiprazol EST e Sertraline Sertra 05/27/ TABLET 1 ORAL complet [place] 50 MG Oral line 2019 {[facility] [place] [facility]t Hcl 02:47: ule} Hospital [Zoloft] 00 PM Sertraline EST Hcl Sertraline Sertra 05/27/ TABLET 1 ORAL complet [place] 50 MG Oral line 2019 {[facility] [place] Tablet Hcl 02:47: ule} Hospital [Zoloft] 00 PM Sertraline EST Hcl aripiprazol Aripip 05/27/ TABLET 10 mg ORAL complet [place] e 10 MG razole 2019 ed [place] [facility] Tablet 02:47: Hospit al [Abilify] 00 PM Aripiprazol EST e Lactulose Lactul 05/27/ SOLUTION 10 g ORAL active [place] 667 MG/ML ose 2019 [place] [facility] 02:47: [facility] Solution 00 PM EST Sertraline Sertra 05/27/ TABLET 1 ORAL active W mera 50 MG Oral line 2019 {[facility] [place] Tablet Hcl 02:47: ule} Hospital [Zoloft] 00 PM Sertraline EST Hcl Lactulose Lactul 05/27/ SOLUTION 10 g ORAL active [place] 667 MG/ML ose 2019 [place] [facility] 02:47: [facility] Solution 00 PM EST Mirtazapine Mirtaz 05/27/ TABLET 15 mg ORAL complet [place] 15 MG Oral apine 2020 [facility] [place] Tablet 02:47: [facility] [Remeron] 00 PM EST Lactulose Lactul 05/27/ SOLUTION 10 g ORAL active [place] 667 MG/ML ose 2019 [place] [facility] 02:47: [facility] Solution 00 PM EST aripiprazol Aripip 05/27/ TABLET 10 mg ORAL active [facility] e 10 MG razole 2019 [place] [facility]t 02:47: Hospit al [Abilify] 00 PM Aripiprazol EST e Sertraline Sertra 05/27/ TABLET 1 ORAL complet [place] 50 MG Oral line 2019 {[facility] [place] Tablet Hcl 02:47: ule} Hospital [Zoloft] 00 PM Sertraline EST Hcl aripiprazol Aripip 05/27/ TABLET 10 mg ORAL complet [place] e 10 MG razole 2019 ed [place] [facility]t 02:47: Hospit al [Abilify] 00 PM Aripiprazol EST e Mirtazapine Mirtaz 05/27/ TABLET 15 mg ORAL complet [place] 15 MG Oral apine 2019 [facility] [place] Tablet 02:47: [facility] [Remeron] 00 PM EST Sertraline Sertra 05/27/ TABLET 1 ORAL complet [place] 50 MG Oral line 2019 {[facility] [place] Tablet Hcl 02:47: ule} Hospital [Zoloft] 00 PM Sertraline EST Hcl aripiprazol Aripip 05/27/ TABLET 10 mg ORAL complet [place] e 10 MG razole 2019 ed [place] Oral Tablet 02:47: Hospit al [Abilify] 00 PM Aripiprazol EST e aripiprazol Aripip 05/27/ TABLET 10 mg ORAL complet [place] e 10 MG razole 2019 ed [place] Oral Tablet 02:47: Hospit al [Abilify] 00 PM Aripiprazol EST e Sertraline Sertra 05/27/ TABLET 1 ORAL complet [place] 50 MG Oral line 2019 {[facility] [place] Tablet Hcl 02:47: ule} Hospital [Zoloft] 00 PM Sertraline EST Hcl Mirtazapine Mirtaz 05/27/ TABLET 15 mg ORAL complet [place] 15 MG Oral apine 2019 ed [place] Tablet 02:47: [facility] [Remeron] 00 PM EST Lactulose Lactul 05/27/ SOLUTION 10 g ORAL active [place] 667 MG/ML ose 2019 [place] [facility] 02:47: [facility] Solution 00 PM EST aripiprazol Aripip 02// TABLET 10 mg ORAL complet [place] e 10 MG razole 2020 ed [place] [facility] Tablet 02:47: Hospit al [Abilify] 00 PM Aripiprazol EST e Famotidine Famoti 05/21/ TABLET 20 mg ORAL complet [facility] 20 MG Oral dine 2020 ed [place] Tablet 01:26: [facility] [Pepcid] 00 PM EST Famotidine Famoti 05/21/ TABLET 20 mg ORAL complet [place] 20 MG Oral dine 2020 ed [place] Tablet 01:26: Hospital [Pepcid] 00 PM EST Famotidine Famoti 05/21/ TABLET 20 mg ORAL complet [place] 20 MG Oral dine 2020 ed [place] Tablet 01:26: Hospital [Pepcid] 00 PM EST Famotidine Famoti // TABLET 20 mg ORAL complet [place] 20 MG Oral dine 2020 [facility] [place] Tablet 01:26: [facility] [Pepcid] 00 PM EST Famotidine Famoti // TABLET 20 mg ORAL active [facility] 20 MG Oral dine 2020 [place] [facility]t 01:26: [facility] [Pepcid] 00 PM EST Famotidine Famoti // TABLET 20 mg ORAL active [place] 20 MG Oral dine 2020 [place] [facility] 01:26: [facility] [Pepcid] 00 PM EST Famotidine Famoti // TABLET 20 mg ORAL active [place] 20 MG Oral dine 2020 [place] [facility]t 01:26: [facility] [Pepcid] 00 PM EST Famotidine Famoti /07/ TABLET 20 mg ORAL complet [place] 20 MG Oral dine 2020 ed [place] Tablet 01:26: Hospital [Pepcid] 00 PM EST Famotidine Famoti /07/ TABLET 20 mg ORAL complet [place] 20 MG Oral dine 2020 ed [place] Tablet 01:26: Hospital [Pepcid] 00 PM EST Famotidine Famoti /07/ TABLET 20 mg ORAL active [place] 20 MG Oral dine 2020 [place] Tablet 01:26: [facility] [Pepcid] 00 PM EST Famotidine Famoti 02/07/ TABLET 20 mg ORAL complet [place] 20 MG Oral dine 2020 ed [place] Tablet 01:26: Hospital [Pepcid] 00 PM EST Famotidine Famoti 02/07/ TABLET 20 mg ORAL complet [place] 20 MG Oral dine 2020 ed [place] Tablet 01:26: Hospital [Pepcid] 00 PM EST [...] Caffeine 65 ffeine EST MG Oral Tablet Aspirin/Joavn taminophen/ Caffeine Acetaminoph Aspiri 04/16/ TABLET {Cap [...] [facility] Lispro 100 n 2019 [facility] [place] UNT/ML Human 06:12: Hospital Injectable Lispro 00 PM Solution EST [Humalog] Insulin Human Lispro Insulin Insuli 03/02/ UNSPECIF 6 SUBCUT complet [place] Lispro 100 n 2019 IED ANEOUS ed [place] UNT/ML Human 06:12: Hospital Injectable Lispro 00 PM Solution EST [Humalog] Insulin Human Lispro Insulin Insuli 03/02/ UNSPECIF 15 SUBCUT active [place] Glargine n 2019 IED ANEOUS [place] 100 UNT/ML Glargi 06:12: [facility] Injectable ne 00 PM Solution EST [Lantus] Insulin Insuli 03/02/ UNSPECIF 15 SUBCUT complet [place] Glargine n 2019 IED ANEOUS ed [place] 100 UNT/ML Glargi 06:12: [facility] Injectable ne 00 PM Solution EST [Lantus] Insulin Insuli 03/02/ UNSPECIF 15 SUBCUT complet [place] Glargine n 2019 IED ANEOUS ed [place] 100 UNT/ML Glargi 06:12: [facility] Injectable ne 00 PM Solution EST [Lantus] Insulin Insuli 03/02/ UNSPECIF 6 SUBCUT complet [place] Lispro 100 n 2019 IED ANEOUS ed [place] UNT/ML Human 06:12: Hospital Injectable Lispro 00 PM Solution EST [Humalog] Insulin Human Lispro Insulin Insuli 03/02/ UNSPECIF 15 SUBCUT active [place] Glargine n 2019 IED ANEOUS [place] 100 UNT/ML Glargi 06:12: [facility] Injectable ne 00 PM Solution EST [Lantus] Insulin Insuli 03/02/ UNSPECIF 15 SUBCUT complet [place] Glargine n 2019 IED ANEOUS ed [place] 100 UNT/ML Glargi 06:12: [facility] Injectable ne 00 PM Solution EST [Lantus] Insulin Insuli 03/02/ UNSPECIF 6 SUBCUT active [place] Lispro 100 n 2019 IED ANEOUS [place] UNT/ML Human 06:12: Hospital Injectable Lispro 00 PM Solution EST [Humalog] Insulin Human Lispro Insulin Insuli 03/02/ UNSPECIF 6 SUBCUT complet [place] Lispro 100 n 2019 I[facility] ANEOUS ed [place] UNT/ML Human 06:12: Hospital Injectable Lispro 00 PM Solution EST [Humalog] Insulin Human Lispro Insulin Insuli 03/02/ UNSPECIF 6 SUBCUT complet [place] Lispro 100 n 2019 IED ANEOUS ed [place] UNT/ML Human 06:12: Hospital Injectable Lispro 00 PM Solution EST [Humalog] Insulin Human Lispro Insulin Insuli 03/02/ UNSPECIF 15 SUBCUT active [place] Glargine n 2019 IED ANEOUS [place] 100 UNT/ML Glargi 06:12: [facility] Injectable ne 00 PM Solution EST [Lantus] Insulin Insuli 03/02/ UNSPECIF 15 SUBCUT complet [place] Glargine n 2019 IED ANEOUS ed [place] 100 UNT/ML Glargi 06:12: [facility] Injectable ne 00 PM Solution EST [Lantus] Insulin Insuli 03/02/ UNSPECIF 15 SUBCUT complet [place] Glargine n 2019 IED ANEOUS ed [place] 100 UNT/ML Glargi 06:12: [facility] Injectable ne 00 PM Solution EST [Lantus] Insulin Insuli 03/02/ UNSPECIF 6 SUBCUT active [place] Lispro 100 n 2019 IED ANEOUS [place] UNT/ML Human 06:12: Hospital Injectable Lispro 00 PM Solution EST [Humalog] Insulin Human Lispro Insulin Insuli 03/02/ UNSPECIF 15 SUBCUT active [place] Glargine n 2018 IED ANEOUS [place] 100 UNT/ML Glargi 06:12: [facility] Injectable ne 00 PM Solution EST [Lantus] Insulin Insuli 03/02/ UNSPECIF 15 SUBCUT active [place] Glargine n 2019 IED ANEOUS [place] 100 UNT/ML Gl[facility]i 06:12: [facility] Injectable ne 00 PM Solution EST [Lantus] Insulin Insuli 03/02/ UNSPECIF 15 SUBCUT active [place] Glargine n 2018 IED ANEOUS [place] 100 UNT/ML Glargi 06:12: [facility] Injectable ne 00 PM Solution EST [Lantus] Insulin Insuli 03/02/ UNSPECIF 6 SUBCUT complet [place] Lispro 100 n 2019 IED ANEOUS ed [place] UNT/ML Human 06:12: Hospital Injectable Lispro 00 PM Solution EST [Humalog] Insulin Human Lispro Insulin Insuli 03/02/ UNSPECIF 15 SUBCUT complet [place] Glargine n 2019 IED ANEOUS ed [place] 100 UNT/ML Glargi 06:12: [facility] Injectable ne 00 PM Solution EST [Lantus] Insulin Insuli 03/02/ UNSPECIF 6 SUBCUT active [place] Lispro 100 n 2019 IED ANEOUS [place] UNT/ML Human 06:12: Hospital Injectable Lispro 00 PM Solution EST [Humalog] Insulin Human Lispro Insulin Insuli 03/02/ UNSPECIF 15 SUBCUT complet [place] Glargine n 2019 IED ANEOUS ed [place] 100 UNT/ML Glargi 06:12: [facility]pi [facility] Injectable ne 00 PM Solution EST [Lantus] Insulin Insuli 03/02/ UNSPECIF 6 SUBCUT complet [place] Lispro 100 n 2019 IED ANEOUS ed [place] UNT/ML Human 06:12: Hospital Injectable Lispro 00 PM Solution EST [Humalog] Insulin Human Lispro Insulin Insuli 03/02/ UNSPECIF 6 SUBCUT active [place] Lispro 100 n 2019 IED ANEOUS [place] UNT/ML Human 06:12: Hospital Injectable Lispro 00 PM Solution EST [Humalog] Insulin Human Lispro Insulin Insuli 03/02/ UNSPECIF 15 SUBCUT complet [place] Glargine n 2019 IED ANEOUS ed [place] 100 UNT/ML Glargi 06:12: Hospi lkaus Injectable ne 00 PM Solution EST [Lantus] Insulin Insuli 03/02/ UNSPECIF 6 SUBCUT active [place] Lispro 100 n 2019 IED ANEOUS [place] UNT/ML Human 06:12: Hospital Injectable Lispro 00 PM Solution EST [Humalog] Insulin Human Lispro Insulin Insuli 03/02/ UNSPECIF 15 SUBCUT active [place] Glargine n 2019 IED ANEOUS [place] 100 UNT/ML Glargi 06:12: Hospi [facility] Injectable ne 00 PM Solution EST [Lantus] Insulin Insuli 03/02/ UNSPECIF 15 SUBCUT active [place] Glargine n 2019 IED ANEOUS [place] 100 UNT/ML Glargi 06:12: [facility]pi [facility] Injectable ne 00 PM Solution EST [Lantus] Insulin Insuli 03/02/ UNSPECIF 6 SUBCUT complet [place] Lispro 100 n 2019 IED ANEOUS ed [place] UNT/ML Human 06:12: Hospital Injectable Lispro 00 PM Solution EST [Humalog] Insulin Human Lispro Insulin Insuli 03/02/ UNSPECIF 6 SUBCUT complet [place] Lispro 100 n 2019 IED ANEOUS ed [place] UNT/ML Human 06:12: Hospital Injectable Lispro 00 PM Solution EST [Humalog] Insulin Human Lispro Insulin Insuli 03/02/ UNSPECIF 6 SUBCUT active [place] Lispro 100 n 2019 IED ANEOUS [place] UNT/ML Human 06:12: Hospital Injectable Lispro 00 PM Solution EST [Humalog] Insulin Human Lispro Insulin Insuli 03/02/ UNSPECIF 6 SUBCUT complet [place] Lispro 100 n 2019 IED ANEOUS ed [place] UNT/ML Human 06:12: Hospital Injectable Lispro 00 PM Solution EST [Humalog] Insulin Human Lispro Insulin Insuli 03/02/ UNSPECIF 6 SUBCUT complet [place] Lispro 100 n 2019 IED ANEOUS ed [place] UNT/ML Human 06:12: Hospital Injectable Lispro 00 PM Solution EST [Humalog] Insulin Human Lispro Insulin Insuli 03/02/ UNSPECIF 15 SUBCUT complet [place] Glargine n 2018 IED ANEOUS ed [place] 100 UNT/ML Glargi 06:12: [facility] Injectable ne 00 PM Solution EST [Lantus] Insulin Insuli 03/02/ UNSPECIF 15 SUBCUT complet [place] Glargine n 2018 IED ANEOUS ed [place] 100 UNT/ML Glargi 06:12: [facility] Injectable ne 00 PM Solution EST [Lantus] Insulin Insuli 03/02/ UNSPECIF 6 SUBCUT active [place] Lispro 100 n 2018 IED ANEOUS [place] UNT/ML Human 06:12: Hospital Injectable Lispro 00 PM Solution EST [Humalog] Insulin Human Lispro Pen Needle 03/01/ NOT complet Michelle t - NOT 2018 AP[facility]IC [facility] 00 AM EST Risperidone Risper TABLET 0.25 ORAL complet W mera 0.5 MG Oral idone mg [facility] [place] Risperidone Risper TABLET 1 mg ORAL complet W mera 1 MG Oral idone [facility] [place] Sertraline Sertra TABLET 200 ORAL complet Wh ite 100 MG Oral line mg ed [place] [facility] [Zoloft] Sertraline Hcl Sertraline Sertra TABLET 1 ORAL complet Wh ite 50 MG Oral line {Caps [facility] [place] [facility]t [facility]cl ule} Hospital [Zoloft] Sertraline Hcl Lisinopril Lisino TABLET 2.5 ORAL complet Wh ite 2.5 MG Oral pril mg [facility] Lisinopril Lisino TABLET 2.5 ORAL complet Wh ite 2.5 MG Oral pril mg [facility] Mirtazapine Mirtaz TABLET 30 mg ORAL complet [place] 30 MG Oral apine [facility] [place] aripiprazol Aripip TABLET 5 mg ORAL complet W mera e 5 MG Oral razole ed [place] [facility] [Abilify] Aripiprazol e Lactulose Lactul SOLUTION 10 g ORAL complet W mera 667 MG/ML ose ed [place] Solution Mirtazapine Mirtaz TABLET 30 mg ORAL complet [place] 30 MG Oral apine [facility] [place] [facility] aripiprazol Aripip TABLET 10 mg ORAL complet [facility] e 10 MG razole ed [place] [facility] [Abilify] Aripiprazol e Mirtazapine Mirtaz TABLET 15 mg ORAL complet [place] 15 MG Oral apine [facility] [place] [facility] [Remeron] Lisinopril Lisino TABLET 2.5 ORAL complet Wh ite 2.5 MG Oral pril mg [facility] [place] Risperidone Risper TABLET 1 mg ORAL complet W mera 1 MG Oral idone [facility] [place] [facility] aripiprazol Aripip TABLET 10 mg ORAL complet [place] e 10 MG razole ed [place] [facility] [Abilify] Aripiprazol e Mirtazapine Mirtaz TABLET 30 mg ORAL complet [place] 30 MG Oral apine [facility] [place] [facility] Mirtazapine Mirtaz TABLET 30 mg ORAL complet [place] 30 MG Oral apine [facility] [place] [facility] Sertraline Sertra TABLET 200 ORAL complet Wh ite 100 MG Oral line mg ed [place] Tablet [facility] [Zoloft] Sertraline Hcl aripiprazol Aripip TABLET 10 mg ORAL complet [facility] e 10 MG razole ed [place] [facility] [Abilify] Aripiprazol e Risperidone Risper TABLET 0.25 ORAL complet W mera 0.5 MG Oral idone mg [facility] [place] [facility] Sertraline Sertra TABLET 200 ORAL complet Wh ite 100 MG Oral line mg ed [place] Tablet [facility] [Zoloft] Sertraline Hcl Sertraline Sertra TABLET 200 ORAL complet Wh ite 100 MG Oral line mg ed [place] Tablet [facility] [Zoloft] Sertraline Hcl aripiprazol Aripip TABLET 5 mg ORAL complet W mera e 5 MG Oral razole ed [place] [facility] [Abilify] Aripiprazol e Sertraline Sertra TABLET 200 ORAL complet Wh ite 100 MG Oral line mg ed [place] Tablet [facility] [Zoloft] Sertraline Hcl Mirtazapine Mirtaz TABLET 30 mg ORAL complet [place] 30 MG Oral apine [facility] [place] [facility] Mirtazapine Mirtaz TABLET 30 mg ORAL complet [place] 30 MG Oral apine [facility] [place] Risperidone Risper TABLET 1 mg ORAL complet W mera 1 MG Oral idone [facility] [place] [facility] Mirtazapine Mirtaz TABLET 15 mg ORAL complet [place] 15 MG Oral apine [facility] [place] [facility] [Remeron] Sertraline Sertra TABLET 1 ORAL complet Wh ite 50 MG Oral line {Caps [facility] [place] [facility]t [facility]cl [facility]} [facility] [Zoloft] Sertraline Hcl aripiprazol Aripip TABLET 5 mg ORAL complet W mera e 5 MG Oral razole [facility] [place] [facility] [Abilify] Aripiprazol e aripiprazol Aripip TABLET 5 mg ORAL complet W mera e 5 MG Oral razole [facility] [place] [facility] [Abilify] Aripiprazol e Mirtazapine Mirtaz TABLET 15 mg ORAL complet [place] 15 MG Oral apine [facility] [place] [facility] [Remeron] Lisinopril Lisino TABLET 2.5 ORAL complet Wh ite 2.5 MG Oral pril mg [facility] [place] [facility] aripiprazol Aripip TABLET 10 mg ORAL complet [facility] e 10 MG razole ed [place] [facility] [Abilify] Aripiprazol e Sertraline Sertra TABLET 1 ORAL complet Wh ite 50 MG Oral line {Caps [facility] [place] [facility]} [facility] [Zoloft] Sertraline Hcl Risperidone Risper TABLET 1 mg ORAL complet W mera 1 MG Oral idone [facility] [place] [facility] Mirtazapine Mirtaz TABLET 30 mg ORAL complet [place] 30 MG Oral apine [facility] [place] Sertraline Sertra TABLET 200 ORAL complet Wh ite 100 MG Oral line mg [facility] [place] [facility] [Zoloft] Sertraline Hcl Lactulose Lactul SOLUTION 10 g ORAL complet W mera 667 MG/ML ose ed [place] [facility] Solution Mirtazapine Mirtaz TABLET 30 mg ORAL complet [place] 30 MG Oral apine [facility] [place] [facility] Lactulose Lactul SOLUTION 10 g ORAL complet W mera 667 MG/ML ose ed [place] [facility] Solution Lactulose Lactul SOLUTION 10 g ORAL complet W mera 667 MG/ML ose ed [place] Solution Risperidone Risper TABLET 1 mg ORAL complet W mera 1 MG Oral idone [facility] [place] [facility] aripiprazol Aripip TABLET 10 mg ORAL complet [place] e 10 MG razole ed [place] [facility] [Abilify] Aripiprazol e aripiprazol Aripip TABLET 5 mg ORAL complet W mera e 5 MG Oral razole [facility] [place] [facility] [Abilify] Aripiprazol e Sertraline Sertra TABLET 200 ORAL complet Wh ite 100 MG Oral line mg [facility] [place] [facility] [Zoloft] Sertraline Hcl Risperidone Risper TABLET 0.25 ORAL complet W mera 0.5 MG Oral idone mg [facility] [place] [facility] aripiprazol Aripip TABLET 5 mg ORAL complet W mera e 5 MG Oral razole [facility] [place] [facility] [Abilify] Aripiprazol e Sertraline Sertra TABLET 1 ORAL complet Wh ite 50 MG Oral line {Caps [facility] [place] [facility]} [facility] [Zoloft] Sertraline Hcl Sertraline Sertra TABLET 1 ORAL complet Wh ite 50 MG Oral line {Caps ed [place] [facility]} [facility] [Zoloft] Sertraline Hcl Risperidone Risper TABLET 1 mg ORAL complet W mera 1 MG Oral idone [facility] [place] [facility] Risperidone Risper TABLET 1 mg ORAL complet W mera 1 MG Oral idone [facility] [place] [facility] Mirtazapine Mirtaz TABLET 15 mg ORAL complet [place] 15 MG Oral apine [facility] [place] [facility] [Remeron] Mirtazapine Mirtaz TABLET 15 mg ORAL complet [place] 15 MG Oral apine [facility] [place] [facility] [Remeron] Mirtazapine Mirtaz TABLET 15 mg ORAL complet [place] 15 MG Oral apine [facility] [place] [facility] [Remeron] Risperidone Risper TABLET 1 mg ORAL complet W mera 1 MG Oral idone [facility] [place] [facility] Risperidone Risper TABLET 0.25 ORAL complet W mera 0.5 MG Oral idone mg [facility] [place] [facility] Lactulose Lactul SOLUTION 10 g ORAL complet W mera 667 MG/ML ose ed [place] Solution aripiprazol Aripip TABLET 5 mg ORAL complet W mera e 5 MG Oral razole ed [place] [facility] [Abilify] Aripiprazol e Sertraline Sertra TABLET 200 ORAL complet Wh ite 100 MG Oral line mg [facility] [place] [facility] [Zoloft] Sertraline Hcl Mirtazapine Mirtaz TABLET 30 mg ORAL complet [place] 30 MG Oral apine [facility] [place] [facility] Sertraline Sertra TABLET 1 ORAL complet Wh ite 50 MG Oral line {Caps ed [place] [facility]} [facility] [Zoloft] Sertraline Hcl Lactulose Lactul SOLUTION 10 g ORAL complet W mera 667 MG/ML ose ed [place] [facility] Solution Sertraline Sertra TABLET 1 ORAL complet Wh ite 50 MG Oral line {Caps ed [place] [facility]} [facility] [Zoloft] Sertraline Hcl Sertraline Sertra TABLET 200 ORAL complet Wh ite 100 MG Oral line mg ed [place] [facility]t [facility] [Zoloft] Sertraline Hcl aripiprazol Aripip TABLET 5 mg ORAL complet W mera e 5 MG Oral razole [facility] [place] [facility] [Abilify] Aripiprazol e Mirtazapine Mirtaz TABLET 15 mg ORAL complet [facility] 15 MG Oral apine [facility] [place] [facility] [Remeron] Risperidone Risper TABLET 1 mg ORAL complet W mera 1 MG Oral idone [facility] [place] [facility] Mirtazapine Mirtaz TABLET 30 mg ORAL complet [place] 30 MG Oral apine [facility] [place] aripiprazol Aripip TABLET 10 mg ORAL complet [place] e 10 MG razole ed [place] [facility] [Abilify] Aripiprazol e Risperidone Risper TABLET 1 mg ORAL complet W mera 1 MG Oral idone [facility] [place] [facility] Mirtazapine Mirtaz TABLET 30 mg ORAL complet [place] 30 MG Oral apine [facility] Risperidone Risper TABLET 1 mg ORAL complet W mera 1 MG Oral idone [facility] [place] [facility] Sertraline Sertra TABLET 1 ORAL complet Wh ite 50 MG Oral line {Caps ed [place] [facility]} [facility] [Zoloft] Sertraline Hcl aripiprazol Aripip TABLET 10 mg ORAL complet [facility] e 10 MG razole ed [place] [facility] [Abilify] Aripiprazol e Sertraline Sertra TABLET 1 ORAL complet Wh ite 50 MG Oral line {Caps ed [place] [facility]} [facility] [Zoloft] Sertraline Hcl Mirtazapine Mirtaz TABLET 30 mg ORAL complet [facility] 30 MG Oral apine [facility] [place] [facility] Lactulose Lactul SOLUTION 10 g ORAL complet W mera 667 MG/ML ose [facility] [place] [facility] Solution Lisinopril Lisino TABLET 2.5 ORAL complet Wh ite 2.5 MG Oral pril mg [facility] aripiprazol Aripip TABLET 10 mg ORAL complet White e 10 MG razole [facility] [Abilify] Aripiprazol e Sertraline Sertra TABLET 1 ORAL complet [facility] 50 MG Oral line {Caps [facility] [Zoloft] Sertraline Hcl Lactulose Lactul SOLUTION 10 g ORAL complet W mera 667 MG/ML ose [facility] Solution Mirtazapine Mirtaz TABLET 15 mg ORAL complet [facility] 15 MG Oral apine [facility] [Remeron] Lactulose Lactul SOLUTION 10 g ORAL complet W mera 667 MG/ML ose [facility] aripiprazol Aripip TABLET 5 mg ORAL complet [facility] e 5 MG Oral razole [facility] [Abilify] Aripiprazol e Lactulose Lactul SOLUTION 10 g ORAL complet W mera 667 MG/ML ose [facility] aripiprazol Aripip TABLET 10 mg ORAL complet [facility] e 10 MG razole [facility] [Abilify] Aripiprazol e Sertraline Sertra TABLET 200 ORAL complet Wh ite 100 MG Oral line mg [facility] [place] [facility] [Zoloft] Sertraline Hcl Sertraline Sertra TABLET 200 ORAL complet Wh ite 100 MG Oral line mg [facility] [place] [facility] [Zoloft] Sertraline Hcl Mirtazapine Mirtaz TABLET 15 mg ORAL complet White 15 MG Oral apine [facility] [Remeron] aripiprazol Aripip TABLET 10 mg ORAL complet [facility] e 10 MG razole [facility] [Abilify] Aripiprazol e Mirtazapine Mirtaz TABLET 15 mg ORAL complet [facility] 15 MG Oral apine [facility] [Remeron] Sertraline Sertra TABLET 1 ORAL complet Wh [facility] 50 MG Oral line {Caps [facility] [Zoloft] Sertraline Hcl Lisinopril Lisino TABLET 2.5 ORAL complet Wh ite 2.5 MG Oral pril mg [facility] Risperidone Risper TABLET 0.25 ORAL complet W mera 0.5 MG Oral idone mg [facility] aripiprazol Aripip TABLET 5 mg ORAL complet W mera e 5 MG Oral razole [facility] [Abilify] Aripiprazol e Risperidone Risper TABLET 0.25 ORAL complet W mera 0.5 MG Oral idone mg [facility] Risperidone Risper TABLET 1 mg ORAL complet W mera 1 MG Oral idone [facility] Risperidone Risper TABLET 0.25 ORAL complet [facility] m[facility] 0.5 MG Oral idone mg [facility] Sertraline Sertra TABLET 200 ORAL complet Wh ite 100 MG Oral line mg [facility] [place] [facility] [Zoloft] Sertraline Hcl Mirtazapine Mirtaz TABLET 15 mg ORAL complet White 15 MG Oral apine [facility] [place] [Remeron] Lisinopril Lisino TABLET 2.5 ORAL complet Wh ite 2.5 MG Oral pril mg [facility] Risperidone Risper TABLET 0.25 ORAL complet W mera 0.5 MG Oral idone mg [facility] Lactulose Lactul SOLUTION 10 g ORAL complet W mera 667 MG/ML ose [facility] aripiprazol Aripip TABLET 10 mg ORAL complet [facility] 10 MG razole [facility] [Abilify] Aripiprazol e Lisinopril Lisino TABLET 2.5 ORAL complet Wh [facility] 2.5 MG Oral pril mg [facility] aripiprazol Aripip TABLET 5 mg ORAL complet W mera e 5 MG Oral razole [facility] [place] [Abilify] Aripiprazol e Insurance Providers Payer name Policy type Policy ID Covered Covered democrat's Policy P jon / Coverage democrat ID relationship to Gonsalez Inf ormation type gonsalez AFFINITY [id number] SP [id number] [facility] [id number] STRGY-AFF [facility] [id number] SP [id number] STRGY-AFF A[place] [id number] PT [id number] HEALTH PLAN SELF PAY 0000 Self 0000 MEDICAID OP [id number] Self [id number] [facility] AHP [id number] Self [id number] [facility] SELF PAY [id number] Self [id number] MEDICAID OP [id number] Self [id number] MMC AHP [id number] Self [id number] [facility] MEDICAID [id number] PT [id number] AFFINITY [id number] PT [id number] HEALTH PLAN AFFINITY [id number] PT [id number] ESSENTIAL PLAN 3 SELF PAY [id number] Self [id number] MEDICAID OP [id number] Self [id number] MMC [id number] Self [id number] AFFINITY/BEAC ON AFFINITY [id number] PT [id number] HEALTH PLAN AFFINITY [id number] PT [id number] HEALTH PLAN SELF PAY 0 Self 0 MEDICAID INP [id number] Self [id number] PSYCH MMC AHP [id number] Self [id number] [facility] AFFINITY [id number] PT [id number] HEALTH PLAN SELF PAY 0 Self 0 MEDICAID INP [id number] Self [id number] F PSYCH SELF PAY 0 Self 0 MEDICAID OP [id number] Self [id number] MMC AHP [id number] Self [id number] [facility] SELF PAY 0000 Self 0000 MEDICAID OP [id number] Self [id number] SELF PAY PT INSURANCE SELF PAY 00 Self 00 MEDICAID INP [id number] Self [id number] PSYCH AFFINITY [id number] PT [id number] HEALTH PLAN Medicaid [id number] S [id number] Regular Clinic Visit Problems, Conditions, and Diagnoses Code Display Name Description Problem Type Effective Data Sour ce(s) Dates [id number] Moderate manic Moderate manic Complaint 03/08/2019 [facility] RT bipolar I disorder bipolar I 07:00:00 PM ([facility] disorder EST - [facility] 06/28/2019 [place]) 06:15:00 PM EDT Z79.4 half-way (current) Z79.4 Diagnosis 01/18/2020 [place] use of insulin 02:58:00 PM Hospital EDT K72.90 Hepatic failure, K72.90 Diagnosis 01/18/[address] [place] unspecified without 02:58:00 PM Hosp ital coma EDT D63.8 Anemia in other D63.8 Diagnosis 01/18/2020 [facility] [place] [facility] chronic diseases 02:58:00 PM Hospita l classified elsewhere EDT E83.39 Other disorders of E83.39 Diagnosis 01/18/2020 [place] phosphorus metabolism 02:58:00 PM Ho spital EDT E87.5 Hyperkalemia E87.5 Diagnosis 01/18/2020 [place] 02:58:00 PM Hospital EDT K74.60 Unspecified cirrhosis K74.60 Diagnosis 01/18/2020 [facility] [place] of liver 02:58:00 PM Hospital EDT Z68.20 Body mass index (BMI) Z68.20 Diagnosis 01/18/2020 [facility] [place] 20.0-20.9, adult 02:58:00 PM Hospita l EDT E43 Unspecified severe E43 Diagnosis 01/18/2020 [place] protein-calorie 02:58:00 PM Hospital malnutrition EDT Z11.59 Encounter for Z11.59 Diagnosis 01/18/2020 [place] screening for other 02:58:00 PM Hosp ital viral diseases EDT F14.10 Cocaine abuse, F14.10 Diagnosis 01/18/2020 [place] uncomplicated 02:58:00 PM Hospital EDT I10 Essential (primary) I10 Diagnosis 01/18/2020 [place] hypertension 02:58:00 PM Hospital EDT F31.9 Bipolar disorder, F31.9 Diagnosis 01/18/2020 [place] unspecified 02:58:00 PM Hospital EDT Z91.14 Patient's other Z91.14 Diagnosis 01/18/2020 [facility] noncompliance with 02:58:00 PM [facility]pi [facility] medication regimen EDT N17.9 Acute kidney failure, N17.9 Diagnosis 01/18/2020 [place] [place] unspecified 02:58:00 PM Hospital EDT E11.10 Type 2 diabetes E11.10 Diagnosis 01/18/2020 [facility] [facility] mellitus with 02:58:00 PM Hospital ketoacidosis without EDT coma E86.0 Dehydration E86.0 Diagnosis 01/10/2020 [place] 12:45:00 AM Hospital EDT E11.65 Type 2 [...] Z87.891 Personal history of Z87.891 Diagnosis 12/15/2019 [place] nicotine dependence 10:09:00 PM Hosp ital EDT E03.9 Hypothyroidism, E03.9 Diagnosis 12/15/2019 [place] [facility] unspecified 10:09:00 PM Hospital EDT K76.6 Portal hypertension K76.6 Diagnosis 12/15/2019 [place] 10:09:00 PM Hospital EDT K70.30 Alcoholic cirrhosis K70.30 Diagnosis 12/15/2019 [place] of liver without 10:09:00 PM Hospita l ascites EDT E83.52 Hypercalcemia E83.52 Diagnosis 12/15/2019 [place] 10:09:00 PM Hospital EDT G92 Toxic encephalopathy G92 Diagnosis 12/15/2019 [place] 10:09:00 PM Hospital EDT R03.0 Elevated R03.0 Diagnosis 11/30/2019 [place] blood-pressure 05:16:00 PM Hospital reading, without EDT diagnosis of hypertension F19.11 Other psychoactive F19.11 Diagnosis 11/30/2019 [place] substance abuse, in 05:16:00 PM Hosp ital remission EDT F10.11 Alcohol abuse, in F10.11 Diagnosis 11/30/2019 [place] remission 05:16:00 PM Hospital EDT E07.9 Disorder of thyroid, E07.9 Diagnosis 11/30/2019 [place] unspecified 05:16:00 PM Hospital EDT Z87.820 Personal history of Z87.820 Diagnosis 11/30/2019 [place] traumatic brain 05:16:00 PM Hospital injury EDT E10.65 Type 1 diabetes E10.65 Diagnosis 11/30/2019 [place] [facility] [facility] mellitus with 05:16:00 PM Hospital hyperglycemia EDT Z91.19 Patient's Z91.19 Diagnosis 11/20/2019 [place] noncompliance with 11:21:00 PM [facility]pi [facility] other medical EDT treatment and regimen T43.225A Adverse effect of T43.225A Diagnosis 11/20/2019 [place] selective serotonin 11:21:00 PM Hosp ital reuptake inhibitors, EDT initial encounter 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 screening for dental SCREENING FOR 09:23:00 AM [facility] disorders DENTAL DISORDERS EDT [facility] R51 Headache R51 Diagnosis 10/26/2019 [place] 02:30:00 AM Hospital EDT F19.10 Other psychoactive F19.10 Diagnosis 06/17/2019 [place] substance abuse, 09:07:00 PM Hospita l uncomplicated EST F10.21 Alcohol dependence, F10.21 Diagnosis 06/17/2019 [place] in remission 09:07:00 PM Hospital EST F32.9 [...] EST F14.20 Cocaine dependence, F14.20 Diagnosis 05/25/2019 [place] uncomplicated 09:03:00 PM Hospital EST E78.5 Hyperlipidemia, E78.5 Diagnosis 05/25/2019 [place] [facility] unspecified 09:03:00 PM Hospital EST R10.13 Epigastric pain R10.13 Diagnosis 05/19/2019 [facility] [facility] 05[facility]49:00 PM Hospital EST E10.8 Type 1 diabetes E10.8 Diagnosis 05/19/2019 [facility] [facility] mellitus with 05:49:00 PM Hospital unspecified EST complications E83.42 Hypomagnesemia E83.42 Diagnosis 05/19/2019 [place] 05:49:00 PM Hospital EST 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 Diagnosis 05/19/2019 [place] use of aspirin 05:49:00 PM Hospital EST T43.505A Adverse effect of T43.505A Diagnosis 05/19/2019 [place] unspecified 05:49:00 PM Hospital antipsychotics and EST neuroleptics, initial encounter R94.31 Abnormal R94.31 Diagnosis 05/19/2019 [place] electrocardiogram 05:49:00 PM Hospit al [ECG] [EKG] EST F25.1 Schizoaffective F25.1 Diagnosis 05/19/2019 [place] [facility] [facility] disorder, depressive 05:49:00 PM Hos pital type EST R45.851 Suicidal ideations R45.851 Diagnosis 05/17/2019 [place] 08:05:00 PM Hospital EST E10.649 Type 1 diabetes E10.649 Diagnosis 04/29/2019 [place] [facility] mellitus with 12:53:00 PM Hospital hypoglycemia without EST coma R05 Cough R05 Diagnosis 04/06/2019 [place] 10:11:00 PM Hospital EST E87.6 Hypokalemia E87.6 Diagnosis 04/06/2019 [place] 10:11:00 PM Hospital EST E11.649 Type 2 diabetes E11.649 Diagnosis 04/06/2019 [place] [facility] mellitus with 10:11:00 PM Hospital hypoglycemia without EST coma F10.20 Alcohol dependence, F10.20 Diagnosis 03/01/2019 [place] uncomplicated 10:57:00 PM Hospital EST Z79.899 Other cage maker machine Z79.899 Diagnosis 03/01/2019 [place] [facility] (current) drug 10:57:00 PM Hospital therapy EST F31.4 Bipolar disorder, F31.4 Diagnosis 03/01/2019 [facility] [place] current episode 10:57:00 PM Hospital depressed, severe, EST without psychotic features Z91.5 Personal history of Z91.5 Diagnosis 03/01/2019 [place] self-harm 10:57:00 PM Hospital EST F17.200 Nicotine dependence, F17.200 Diagnosis 02/14/2019 [place] unspecified, 11:16:00 AM Hospital uncomplicated EST Surgeries/Procedures Procedure Description Date Indications Data Source(s) Physical therapy procedure 01/20/2020 [facility] [place] (regime/therapy) 12:00:00 AM Hospital EDT Electrocardiographic procedure 01/18/2020 [place] (procedure) 12:00:00 AM Hospital EDT Plain chest X-ray (procedure) 01/18/2020 [place] 12:00:00 AM Hospital EDT Computed tomography of head 01/18/2020 [place] without contrast 12:00:00 AM Hospital EDT XR forearm right 01/10/2020 [place] 12:00:00 AM Hospital EDT XR elbow right 01/10/2020 [place] 12:00:00 AM Hospital EDT Plain chest X-ray (procedure) 01/10/2020 [place] 12:00:00 AM Hospital EDT Electrocardiographic procedure 01/10/2020 [place] (procedure) 12:00:00 AM Hospital EDT Hopd covid-19 spec collect 01/10/2020 [facility] [place] 12:00:00 AM Hospital EDT Hydrate iv infusion add-on 01/10/2020 [facility] [place] 12:00:00 AM Hospital EDT Ther/proph/diag inj iv push 01/10/2020 [place] 12:00:00 AM Hospital EDT X-ray exam of forearm 01/10/2020 [place] 12:00:00 AM Hospital EDT X-ray exam of elbow 01/10/[address] [place] 12:00:00 AM Hospital EDT X-ray exam chest 1 view 01/10/2020 [place] 12:00:00 AM Hospital EDT Electrocardiogram tracing 01/10/2020 [facility] [place] 12:00:00 AM Hospital EDT Reagent strip/blood glucose 01/10/2020 [place] 12:00:00 AM Hospital EDT Comprehen metabolic panel 01/10/2020 [facility] [place] 12:00:00 AM Hospital EDT Mr-staph dna amp probe 01/10/2020 [place] 12:00:00 AM Hospital EDT SARS-COV-2 COVID-19 AMP PRB 01/10/2020 [place] 12:00:00 AM Hospital EDT Complete cbc w/auto diff wbc 01/10/2020 [place] 12:00:00 AM Hospital EDT Emergency dept visit 01/10/2020 [place] 12:00:00 AM Hospital EDT XR forearm right 01/10/2020 [place] 12[facility]00:00 AM [facility] EDT XR elbow right 01/10/2020 [place] 12:00:00 AM Hospital EDT Plain chest X-ray (procedure) 01/10/2020 [place] 12:00:00 AM Hospital EDT Electrocardiographic procedure 01/10/2020 [place] (procedure) 12:00:00 AM Hospital EDT Drug test prsmv chem anlyzr 01/08/2020 [place] 12:00:00 AM Hospital EDT Comprehen metabolic panel 01/08/2020 [facility] [place] 12:00:00 AM Hospital EDT Drug test prsmv chem anlyzr 01/08/2020 [place] 12:00:00 AM Hospital EDT Macroscopic exam arthropod 01/08/2020 [facility] [place] 12:00:00 AM Hospital EDT Blood culture for bacteria 01/08/2020 [facility] [place] 12:00:00 AM Hospital EDT Mr-staph dna amp probe 01/08/2020 [place] 12:00:00 AM Hospital EDT SARS-COV-2 COVID-19 AMP PRB 01/08/2020 [place] 12:00:00 AM Hospital EDT Prothrombin time 01/08/2020 [place] 12:00:00 AM Hospital EDT Complete cbc w/auto diff wbc 01/08/2020 [place] 12:00:00 AM Hospital EDT Thromboplastin time partial 01/08/2020 [place] 12:00:00 AM Hospital EDT Blood gases any combination 01/08/2020 [place] 12:00:00 AM Hospital EDT Urinalysis auto w/o scope 01/08/2020 [facility] [place] 12:00:00 AM Hospital EDT Emergency dept visit 01/08/2020 [facility] [place] 12:00:00 AM Hospital EDT Plain chest X-ray (procedure) 01/08/2020 [place] 12:00:00 AM Hospital EDT Plain chest X-ray (procedure) 01/08/2020 [place] 12:00:00 AM Hospital EDT Plain chest X-ray (procedure) 01/08/2020 [place] 12:00:00 AM Hospital EDT RINGERS LACTATE INFUSION 01/08/2020 [place] [place] 12:00:00 AM Hospital EDT DRUGS UNCLASSIFIED INJECTION 01/08/2020 [place] 12:00:00 AM Hospital EDT Hopd covid-19 spec collect 01/08/2020 [facility] [place] 12:00:00 AM Hospital EDT Hydrate iv infusion add-on 01/08/2020 [facility] [place] 12:00:00 AM Hospital EDT Ther/proph/diag inj iv push 01/08/2020 [place] 12:00:00 AM Hospital EDT X-ray exam chest 1 view 01/08/2020 [place] 12:00:00 AM Hospital EDT Assay of troponin qual 01/08/2020 [place] 12:00:00 AM Hospital EDT Assay of phosphorus 01/08/[address] [place] 12:00:00 AM Hospital EDT Assay of magnesium 01/08/2020 [facility] [facility] 12:00:00 AM Hospital EDT Assay of lipase 01/08/2020 [place] 12:00:00 AM Hospital EDT Assay of lactic acid 01/08/2020 [place] [facility] 12:00:00 AM Hospital EDT Reagent strip/blood glucose 01/08/2020 [place] 12:00:00 AM Hospital EDT NORMAL SALINE SOLUTION INFUS 2020 [place] 12:00:00 AM Hospital EDT INSULIN INJECTION 2020 [place] 12:00:00 AM Hospital EDT Reagent strip/blood glucose 2020 [place] 12:00:00 AM Hospital EDT Metabolic panel total ca 2020 [facility] [place] 12:00:00 AM Hospital EDT Complete cbc w/auto diff wbc 2020 [place] 12:00:00 AM Hospital EDT Urinalysis auto w/o scope 2020 [facility] [place] 12:00:00 AM Hospital EDT Ther/proph/diag inj iv push 2020 [place] 12:00:00 AM Hospital EDT Emergency dept visit 2020 [facility] [place] 12:00:00 AM Hospital EDT NORMAL SALINE SOLUTION INFUS 2020 [place] 12:00:00 AM Hospital EDT INSULIN INJECTION 2020 [facility] 12:00:00 AM Hospital EDT Reagent strip/blood glucose 2020 [place] 12:00:00 AM Hospital EDT Metabolic panel total ca 2020 [facility] jimmy [place] 12:00:00 AM Hospital EDT Complete cbc w/auto diff wbc 2020 [place] 12:00:00 AM Hospital EDT Urinalysis auto w/o scope 2020 [facility] [place] 12:00:00 AM Hospital EDT Ther/proph/diag inj iv push 2020 [place] 12:00:00 AM Hospital EDT Emergency dept visit 2020 [facility] [place] 12:00:00 AM Hospital EDT NORMAL SALINE SOLUTION INFUS 2020 [place] 12:00:00 AM Hospital EDT INSULIN INJECTION 2020 [facility] [place] [facility] 12:00:00 AM Hospital EDT Reagent strip/blood glucose 2020 [place] 12:00:00 AM Hospital EDT Metabolic panel total ca 2020 [facility] [place] 12:00:00 AM Hospital EDT Complete cbc w/auto diff wbc 2020 [place] 12:00:00 AM Hospital EDT Urinalysis auto w/o scope 2020 [facility] [place] 12:00:00 AM Hospital EDT Ther/proph/diag inj iv push 2020 [place] 12:00:00 AM Hospital EDT Emergency dept visit 2020 [place] 12:00:00 AM Hospital EDT Hepatitis c revrs trnscrpj 12/29/2019 [facility] [place] 12:00:00 AM Hospital EDT Alpha-fetoprotein serum 12/29/2019 [place] 12:00:00 AM Hospital EDT Assay of magnesium 12/29/2019 [place] [facility] 12:00:00 AM Hospital EDT Hepatic function panel 12/29/2019 [place] 12:00:00 AM Hospital EDT Iron binding test 12/29/2019 [place] 12:00:00 AM Hospital EDT Assay of iron 12/29/2019 [place] 12:00:00 AM Hospital EDT Hepatitis a antibody 12/29/2019 [place] 12:00:00 AM Hospital EDT Hepatitis a igm antibody 12/29/2019 [facility] [place] 12:00:00 AM Hospital EDT Hepatitis b surface ag ia 12/29/2019 [facility] [place] 12:00:00 AM Hospital EDT Hep b surface antibody 12/29/2019 [place] 12:00:00 AM Hospital EDT Hep b core antibody total 12/29/2019 [facility] [place] 12:00:00 AM Hospital EDT Assay of ferritin 12/29/2019 [place] 12:00:00 AM Hospital EDT Metabolic panel total ca 12/29/2019 [facility] [place] 12:00:00 AM Hospital EDT Prothrombin time 12/29/2019 [place] 12:00:00 AM Hospital EDT Complete cbc w/auto diff wbc 12/29/2019 [place] 12:00:00 AM Hospital EDT [id number] total 12/29/2019 [facility] [place] 12:00:00 AM Hospital EDT Hepatitis c revrs trnscrpj 12/29/2019 [facility] [place] 12:00:00 AM Hospital EDT Alpha-fetoprotein serum 12/29/2019 [place] 12:00:00 AM Hospital EDT Assay of magnesium 12/29/2019 [place] [facility] [facility] 12:00:00 AM Hospital EDT Hepatic function panel 12/29/2019 [place] 12:00:00 AM Hospital EDT Iron binding test 12/29/2019 [place] 12:00:00 AM Hospital EDT Assay of iron 12/29/2019 [place] 12:00:00 AM Hospital EDT Hepatitis a antibody 12/29/2019 [place] 12:00:00 AM Hospital EDT Hepatitis a igm antibody 12/29/2019 [place] [place] 12:00:00 AM Hospital EDT Hepatitis b surface ag ia 12/29/2019 [facility] [place] 12:00:00 AM Hospital EDT Hep b surface antibody 12/29/2019 [place] 12:00:00 AM Hospital EDT Hep b core antibody total 12/29/2019 [facility] [place] 12:00:00 AM Hospital EDT Assay of ferritin 12/29/2019 [place] 12:00:00 AM Hospital EDT Metabolic panel total ca 12/29/2019 [place] [place] 12:00:00 AM Hospital EDT Prothrombin time 12/29/2019 [place] 12:00:00 AM Hospital EDT Complete cbc w/auto diff wbc 12/29/2019 [place] 12:00:00 AM Hospital EDT [id number]-[id number] total 12/29/2019 [facility] [place] 12:00:00 AM Hospital EDT Hepatitis c revrs trnscrpj 12/29/2019 [facility] [place] 12:00:00 AM Hospital EDT Alpha-fetoprotein serum 12/29/2019 [place] 12:00:00 AM Hospital EDT Assay of magnesium 12/29/2019 [place] [facility] 12:00:00 AM Hospital EDT Hepatic function panel 12/29/2019 [place] 12:00:00 AM Hospital EDT Iron binding test 12/29/2019 [place] 12:00:00 AM Hospital EDT Assay of iron 12/29/2019 [place] 12:00:00 AM Hospital EDT Hepatitis a antibody 12/29/2019 [place] 12:00:00 AM Hospital EDT Hepatitis a igm antibody 12/29/2019 [place] [place] 12:00:00 AM Hospital EDT Hepatitis b surface ag ia 12/29/2019 [facility] [place] 12:00:00 AM Hospital EDT Hep b surface antibody 12/29/2019 [place] 12:00:00 AM Hospital EDT Hep b core antibody total 12/29/2019 [facility] [place] 12:00:00 AM Hospital EDT Assay of ferritin 12/29/2019 [place] 12:00:00 AM Hospital EDT Metabolic panel total ca 12/29/2019 [place] [place] 12:00:00 AM Hospital EDT Prothrombin time 12/29/2019 [place] 12:00:00 AM Hospital EDT Complete cbc w/auto diff wbc 12/29/2019 [place] 12:00:00 AM Hospital EDT Afvfc-[id number] total 12/29/2019 [facility] [place] 12:00:00 AM Hospital EDT Physical therapy procedure 12/21/2019 [facility] [place] (regime/therapy) 12:00:00 AM Hospital EDT Electrocardiographic procedure 12/21/2019 [place] (procedure) 12:00:00 AM Hospital EDT Hopd covid-19 spec collect 12/21/2019 [facility] [place] 12:00:00 AM Hospital EDT Gait training therapy 12/21/2019 [place] 12:00:00 AM Hospital EDT Pt eval low complex 20 min 12/21/2019 [facility] [place] 12:00:00 AM Hospital EDT Electrocardiogram tracing 12/21/2019 [facility] [place] 12:00:00 AM Hospital EDT Assay of troponin qual 12/21/2019 [place] 12:00:00 AM Hospital EDT Reagent strip/blood glucose 12/21/2019 [place] 12:00:00 AM Hospital EDT Drug test prsmv chem anlyzr 12/21/2019 [place] 12:00:00 AM Hospital EDT Comprehen metabolic panel 12/21/2019 [place] 12:00:00 AM Hospital EDT Drug assay clozapine 12/21/2019 [place] 12:00:00 AM Hospital EDT Mr-staph dna amp probe 12/21/2019 [place] 12:00:00 AM Hospital EDT SARS-COV-2 COVID-19 AMP PRB 12/21/2019 [place] 12:00:00 AM Hospital EDT Prothrombin time 12/21/2019 [place] 12:00:00 AM Hospital EDT Complete cbc automated 12/21/2019 [place] 12:00:00 AM Hospital EDT Thromboplastin time partial 12/21/2019 [place] 12:00:00 AM Hospital EDT Urinalysis auto w/o scope 12/21/2019 [place] 12:00:00 AM Hospital EDT Hydrate iv infusion add-on 12/21/2019 [facility] [place] 12:00:00 AM Hospital EDT Ther/proph/diag inj iv push 12/21/2019 [place] 12:00:00 AM Hospital EDT Emergency dept visit 12/21/2019 [place] 12:00:00 AM Hospital EDT Physical therapy procedure 12/21/2019 [facility] [place] (regime/therapy) 12:00:00 AM Hospital EDT Electrocardiographic procedure 12/21/2019 [place] (procedure) 12:00:00 AM Hospital EDT Hopd covid-19 spec collect 12/21/2019 [facility] [place] 12:00:00 AM Hospital EDT Gait training therapy 12/21/2019 [place] 12:00:00 AM Hospital EDT Pt eval low complex 20 min 12/21/2019 [facility] [place] 12:00:00 AM Hospital EDT Electrocardiogram tracing 12/21/2019 [facility] [place] 12:00:00 AM Hospital EDT Assay of troponin qual 12/21/2019 [place] 12:00:00 AM Hospital EDT Reagent strip/blood glucose 12/21/2019 [place] 12:00:00 AM Hospital EDT Drug test prsmv chem anlyzr 12/21/2019 [place] 12:00:00 AM Hospital EDT Comprehen metabolic panel 12/21/2019 [place] 12:00:00 AM Hospital EDT Drug assay clozapine 12/21/2019 [place] 12:00:00 AM Hospital EDT Mr-staph dna amp probe 12/21/2019 [place] 12:00:00 AM Hospital EDT SARS-COV-2 COVID-19 AMP PRB 12/21/2019 [place] 12:00:00 AM Hospital EDT Prothrombin time 12/21/2019 [facility] 12:00:00 AM Hospital EDT Complete cbc automated 12/21/2019 [place] 12:00:00 AM Hospital EDT Thromboplastin time partial 12/21/2019 [place] 12:00:00 AM [facility] ED[facility] Urinalysis auto w/o scope 12/21/2019 [facility] [place] 12:00:00 AM [facility] EDT Hydrate iv infusion add-on 12/21/2019 [facility] [place] 12:00:00 AM [facility] EDT Ther/proph/diag inj iv push 12/21/2019 [place] 12:00:00 AM Hospital EDT Emergency dept visit 12/21/2019 [facility] 12:00:00 AM [facility] EDT Physical therapy procedure 12/21/2019 [facility] (regime/therapy) 12:00:00 AM Hospital EDT Electrocardiographic procedure 12/21/2019 [place] (procedure) 12:00:00 AM Hospital EDT Hopd covid-19 spec collect 12/21/2019 [facility] [place] 12:00:00 AM Hospital EDT Gait training therapy 12/21/2019 [place] 12:00:00 AM Hospital EDT Pt eval low complex 20 min 12/21/2019 [facility] 12:00:00 AM Hospital EDT Electrocardiogram tracing 12/21/2019 [facility] 12:00:00 AM Hospital EDT Assay of troponin qual 12/21/2019 [place] 12:00:00 AM Hospital EDT Reagent strip/blood glucose 12/21/2019 [place] 12:00:00 AM Hospital EDT Drug test prsmv chem anlyzr 12/21/2019 [place] 12:00:00 AM Hospital EDT Comprehen metabolic panel 12/21/2019 [facility] 12:00:00 AM Hospital EDT Drug assay clozapine 12/21/2019 [facility] 12:00:00 AM Hospital EDT Mr-staph dna amp probe 12/21/2019 [place] 12:00:00 AM Hospital EDT SARS-COV-2 COVID-19 AMP PRB 12/21/2019 [place] 12:00:00 AM Hospital EDT Prothrombin time 12/21/2019 [facility] 12:00:00 AM Hospital EDT Complete cbc automated 12/21/2019 [place] 12:00:00 AM Hospital EDT Thromboplastin time partial 12/21/2019 [place] 12:00:00 AM Hospital EDT Urinalysis auto w/o scope 12/21/2019 [facility] [place] 12:00:00 AM [facility] EDT Hydrate iv infusion add-on 12/21/2019 [facility] [place] 12:00:00 AM [facility] EDT Ther/proph/diag inj iv push 12/21/2019 [place] 12:00:00 AM Hospital EDT Emergency dept visit 12/21/2019 [facility] 12:00:00 AM [facility] EDT Physical therapy procedure 12/21/2019 [facility] [place] (regime/therapy) 12:00:00 AM Hospital EDT Electrocardiographic procedure 12/21/2019 [place] (procedure) 12:00:00 AM Hospital EDT Physical therapy procedure 12/17/2019 [facility] [place] (regime/therapy) 12:00:00 AM [facility] EDT Physical therapy procedure 12/17/2019 [facility] [place] (regime/therapy) 12:00:00 AM Hospital EDT Physical therapy procedure 12/17/2019 [facility] [place] (regime/therapy) 12:00:00 AM Hospital EDT Physical therapy procedure 12/17/2019 [facility] [place] (regime/therapy) 12:00:00 AM Hospital EDT Physical therapy procedure 12/17/2019 [facility] [place] (regime/therapy) 12:00:00 AM Hospital EDT Physical therapy procedure 12/17/2019 [facility] [place] (regime/therapy) 12:00:00 AM Hospital EDT Physical therapy procedure 12/17/2019 [facility] [place] (regime/therapy) 12:00:00 AM Hospital EDT Physical therapy procedure 12/17/2019 [facility] [place] (regime/therapy) 12:00:00 AM Hospital EDT Physical therapy procedure 12/17/2019 [facility] [place] (regime/therapy) 12:00:00 AM Hospital EDT Physical therapy procedure 12/17/2019 [facility] [place] (regime/therapy) 12:00:00 AM Hospital EDT Plain chest X-ray (procedure) 12/15/2019 [place] 12:00:00 AM Hospital EDT Computed tomography of 12/15/2019 [place] cervical spine without 12:00:00 AM [facility] contrast EDT Computed tomography of head 12/15/2019 [place] without contrast 12:00:00 AM Hospital EDT Electrocardiographic procedure 12/15/2019 [place] (procedure) 12:00:00 AM Hospital EDT Plain chest X-ray (procedure) 12/15/2019 [place] 12:00:00 AM Hospital EDT Computed tomography of 12/15/2019 [place] cervical spine without 12:00:00 AM [facility] contrast EDT Computed tomography of head 12/15/2019 [place] without contrast 12:00:00 AM Hospital EDT Electrocardiographic procedure 12/15/2019 [place] (procedure) 12:00:00 AM Hospital EDT Plain chest X-ray (procedure) 12/15/2019 [place] 12:00:00 AM Hospital EDT Computed tomography of 12/15/2019 [place] cervical spine without 12:00:00 AM [facility] contrast EDT Computed tomography of head 12/15/2019 [place] without contrast 12:00:00 AM Hospital EDT Electrocardiographic procedure 12/15/2019 [place] (procedure) 12:00:00 AM Hospital EDT Plain chest X-ray (procedure) 12/15/2019 [place] 12:00:00 AM Hospital EDT Computed tomography of 12/15/2019 [place] cervical spine without 12:00:00 AM [facility] contrast EDT Computed tomography of head 12/15/2019 [place] without contrast 12:00:00 AM Hospital EDT Electrocardiographic procedure 12/15/2019 [place] (procedure) 12:00:00 AM Hospital EDT Plain chest X-ray (procedure) 12/15/2019 [place] 12:00:00 AM Hospital EDT Computed tomography of 12/15/2019 [place] cervical spine without 12:00:00 AM [facility] contrast EDT Computed tomography of head 12/15/2019 [place] without contrast 12:00:00 AM Hospital EDT Electrocardiographic procedure 12/15/2019 [place] (procedure) 12:00:00 AM Hospital EDT Physical therapy procedure 12/03/2019 [facility] [place] (regime/therapy) 12:00:00 AM Hospital EDT Physical therapy procedure 12/03/2019 [facility] [place] (regime/therapy) 12:00:00 AM Hospital EDT Physical therapy procedure 12/03/2019 [facility] [place] (regime/therapy) 12:00:00 AM Hospital EDT Electrocardiographic procedure 11/30/2019 [place] (procedure) 12:00:00 AM Hospital EDT Computed tomography of head 11/30/2019 [place] without contrast 12:00:00 AM Hospital EDT Electrocardiographic procedure 11/30/2019 [place] (procedure) 12:00:00 AM Hospital EDT Computed tomography of head 11/30/2019 [place] without contrast 12:00:00 AM Hospital EDT Electrocardiographic procedure 11/30/2019 [place] (procedure) 12:00:00 AM Hospital EDT Computed tomography of head 11/30/2019 [place] without contrast 12:00:00 AM Hospital EDT Ultrasonography of abdomen 11/28/2019 [facility] [place] (procedure) 12:00:00 AM Hospital EDT Ultrasonography of abdomen 11/28/2019 [facility] [place] (procedure) 12:00:00 AM Hospital EDT Ultrasonography of abdomen 11/28/2019 [facility] [place] (procedure) 12:00:00 AM Hospital EDT Plain chest X-ray (procedure) 11/25/2019 [place] 12:00:00 AM Hospital EDT Plain chest X-ray (procedure) 11/25/2019 [place] 12:00:00 AM Hospital EDT Plain chest X-ray (procedure) 11/25/2019 [place] 12:00:00 AM Hospital EDT Physical therapy procedure 11/22/2019 [facility] [place] (regime/therapy) 12:00:00 AM [facility] EDT Physical therapy procedure 11/22/2019 [facility] [place] (regime/therapy) 12:00:00 AM Hospital EDT Physical therapy procedure 11/22/2019 [facility] [place] (regime/therapy) 12:00:00 AM Hospital EDT Plain chest X-ray (procedure) 11/20/2019 [place] 12:00:00 AM Hospital EDT Electrocardiographic procedure 11/20/2019 [place] (procedure) 12:00:00 AM Hospital EDT Plain chest X-ray (procedure) 11/20/2019 [place] 12:00:00 AM Hospital EDT Electrocardiographic procedure 11/20/2019 [place] (procedure) 12:00:00 AM Hospital EDT Plain chest X-ray (procedure) 11/20/2019 [place] 12:00:00 AM Hospital EDT Electrocardiographic procedure 11/20/2019 [place] (procedure) 12:00:00 AM Hospital EDT Computed tomography of head 10/26/2019 [place] without contrast 12:00:00 AM Hospital EDT Electrocardiographic procedure 10/26/2019 [place] (procedure) 12:00:00 AM Hospital EDT Physical therapy procedure 06/19/2019 [facility] [place] (regime/therapy) 12:00:00 AM Hospital EST Smoking cessation education 06/18/2019 [place] (procedure) 12:00:00 AM Hospital EST Electrocardiographic procedure 06/17/2019 [place] (procedure) 12:00:00 AM Hospital EST Diagnostic radiography of 06/17/2019 [facility] [place] chest, combined 12:00:00 AM Hospital posteroanterior and lateral EST (procedure) Electrocardiographic procedure 05/25/2019 [place] (procedure) 12:00:00 AM Hospital EST Plain chest X-ray (procedure) 05/25/2019 [place] 12:00:00 AM Hospital EST Computed tomography of head 05/25/2019 [place] without contrast 12:00:00 AM Hospital EST Electrocardiographic procedure 05/25/2019 [place] (procedure) 12:00:00 AM Hospital EST Plain chest X-ray (procedure) 05/25/2019 [place] 12:00:00 AM Hospital EST Computed tomography of head 05/25/2019 [place] without contrast 12:00:00 AM Hospital EST Electrocardiographic procedure 05/21/2019 [place] (procedure) 12:00:00 AM Hospital EST Electrocardiographic procedure 05/21/2019 [place] (procedure) 12:00:00 AM Hospital EST Electrocardiographic procedure 05/21/2019 [place] (procedure) 12:00:00 AM Hospital EST Electrocardiographic procedure 05/21/2019 [place] (procedure) 12:00:00 AM Hospital EST Echocardiography (procedure) 05/20/2019 [place] 12:00:00 AM Hospital EST Electrocardiographic procedure 05/20/2019 [place] (procedure) 12:00:00 AM Hospital EST Echocardiography (procedure) 05/20/2019 [place] 12:00:00 AM Hospital EST Electrocardiographic procedure 05/20/2019 [place] (procedure) 12:00:00 AM Hospital EST Electrocardiographic procedure 05/19/2019 [place] (procedure) 12:00:00 AM Hospital EST Plain chest X-ray (procedure) 05/19/2019 [place] 12:00:00 AM Hospital EST Computed tomography of head 05/19/2019 [place] without contrast 12:00:00 AM Hospital EST Electrocardiographic procedure 05/19/2019 [place] (procedure) 12:00:00 AM Hospital EST Plain chest X-ray (procedure) 05/19/2019 [place] 12:00:00 AM Hospital EST Computed tomography of head 05/19/2019 [place] without contrast 12:00:00 AM Hospital EST Electrocardiographic procedure 05/17/2019 [place] (procedure) 12:00:00 AM Hospital EST INJECTION, THIAMINE HCL, 100 05/17/2019 [place] [facility] 12:00:00 AM Hospital EST NORMAL SALINE SOLUTION INFUS 05/17/2019 [place] 12:00:00 AM Hospital EST INJECTION, LORAZEPAM, 2 MG 05/17/2019 [facility] [place] 12:00:00 AM [facility] EST Electrocardiogram tracing 05/17/2019 [facility] [place] 12:00:00 AM Hospital EST Assay of troponin qual 05/17/2019 [place] 12:00:00 AM Hospital EST Assay of phosphorus 05/17/[address] [place] 12:00:[facility] AM [facility] EST Assay of blood osmolality 05/17/2019 [facility] [place] 12:00:00 AM [facility] EST Assay of magnesium 05/17/2019 [facility] 12:00:[facility] AM [facility] EST Assay of lactic acid 05/17/2019 [place] 12:00:[facility] AM [facility] EST Glycosylated hemoglobin test 05/17/2019 [place] 12:00:00 AM Hospital EST Reagent strip/blood glucose 05/17/2019 [place] 12:00:00 AM Hospital EST Electrolyte panel 05/17/2019 [place] 12:[facility] EST Drug test prsmv chem anlyzr 05/17/2019 [place] 12:00:00 AM Hospital EST Comprehen metabolic panel 05/17/2019 [facility] [place] 12:00:00 AM [facility] EST Drug test prsmv chem anlyzr 05/17/2019 [place] 12:00:00 AM Hospital EST Metabolic panel total ca 05/17/2019 [facility] [place] 12:00:00 AM [facility] EST Complete cbc w/auto diff wbc 05/17/2019 [place] 12:00:00 AM Hospital EST Urinalysis auto w/scope 05/17/2019 [facility] [place] 12:00:00 AM [facility] EST Hydrate iv infusion add-on 05/17/2019 [facility] [place] 12:00:00 AM [facility] EST Tx/pro/dx inj new drug addon 05/17/2019 [place] 12:00:00 AM Hospital EST Tx/pro/dx inj same drug pharmacoepidemiologist 05/17/2019 [place] 12:00:00 AM Hospital EST Ther/proph/diag inj iv push 05/17/2019 [place] 12:00:00 AM Hospital EST Emergency dept visit 05/17/2019 [place] 12:00:00 AM [facility] EST Electrocardiographic procedure 05/17/2019 [place] (procedure) 12:00:00 AM Hospital EST INJECTION, THIAMINE HCL, 100 05/17/2019 [place] [facility] 12:00:00 AM Hospital EST NORMAL SALINE SOLUTION INFUS 05/17/2019 [place] 12:00:00 AM Hospital EST INJECTION, LORAZEPAM, 2 MG 05/17/2019 [facility] [place] 12:00:00 AM [facility] EST Electrocardiogram tracing 05/17/2019 [facility] [place] 12:00:00 AM [facility] EST Assay of troponin qual 05/17/2019 [place] 12:00:00 AM Hospital EST Assay of phosphorus 05/17/[address] [place] [facility] [place] 12:00:[facility] AM [facility] EST Assay of blood osmolality 05/17/2019 [facility] [place] 12:00:00 AM [facility] EST Assay of magnesium 05/17/2019 [facility] 12:00:00 AM [facility] EST Assay of lactic acid 05/17/2019 [place] 12:00:00 AM [facility] EST Glycosylated hemoglobin test 05/17/2019 [place] 12:00:00 AM Hospital EST Reagent strip/blood glucose 05/17/2019 [place] 12:00:00 AM Hospital EST Electrolyte panel 05/17/2019 [place] 12:[facility] AM [facility] EST Drug test prsmv chem anlyzr 05/17/2019 [place] 12:00:00 AM Hospital EST Comprehen metabolic panel 05/17/2019 [facility] [place] 12:00:00 AM [facility] EST Drug test prsmv chem anlyzr 05/17/2019 [place] 12:00:00 AM Hospital EST Metabolic panel total ca 05/17/2019 [facility] [place] 12:00:00 AM [facility] EST Complete cbc w/auto diff wbc 05/17/2019 [place] 12:00:00 AM Hospital EST Urinalysis auto w/scope 05/17/2019 [place] [facility] [place] 12:00:00 AM [facility] EST Hydrate iv infusion add-on 05/17/2019 [facility] [place] 12:00:00 AM [facility] EST Tx/pro/dx inj new drug addon 05/17/2019 [place] 12:00:00 AM Hospital EST Tx/pro/dx inj same drug pharmacoepidemiologist 05/17/2019 [place] 12:00:00 AM Hospital EST Ther/proph/diag inj iv push 05/17/2019 [place] 12:00:00 AM Hospital EST Emergency dept visit 05/17/2019 [place] 12:00:00 AM Hospital EST Electrocardiographic procedure 05/17/2019 [place] (procedure) 12:00:00 AM Hospital EST Reagent strip/blood glucose 04/29/2019 [place] 12:00:00 AM Hospital EST Metabolic panel total ca 04/29/2019 [facility] [place] 12:00:00 AM [facility] EST Mr-staph dna amp probe 04/29/2019 [place] 12:00:00 AM Hospital EST Complete cbc automated 04/29/2019 [place] 12:00:00 AM Hospital EST Emergency dept visit 04/29/2019 [place] 12:00:00 AM [facility] EST Reagent strip/blood glucose 04/29/2019 [place] 12:00:00 AM Hospital EST Metabolic panel total ca 04/29/2019 [facility] [place] 12:00:00 AM [facility] EST Mr-staph dna amp probe 04/29/2019 [place] 12:00:00 AM Hospital EST Complete cbc automated 04/29/2019 [place] 12:00:00 AM Hospital EST Emergency dept visit 04/29/2019 [place] 12:00:00 AM [facility] EST Reagent strip/blood glucose 04/29/2019 [place] 12:00:00 AM Hospital EST Metabolic panel total ca 04/29/2019 [facility] [place] 12:00:00 AM [facility] EST Mr-staph dna amp probe 04/29/2019 [place] 12:00:00 AM Hospital EST Complete cbc automated 04/29/2019 [place] 12:00:00 AM Hospital EST Emergency dept visit 04/29/2019 [place] 12:00:00 AM [facility] EST METOCLOPRAMIDE HCL INJECTION 04/16/2019 [place] 12:00:00 AM Hospital EST Tx/pro/dx inj new drug addon 04/16/2019 [place] 12:00:00 AM Hospital EST Ther/proph/diag inj iv push 04/16/2019 [place] 12:00:00 AM Hospital EST Reagent strip/blood glucose 04/16/2019 [place] 12:00:00 AM Hospital EST Metabolic panel total ca 04/16/2019 [facility] [place] 12:00:00 AM [facility] EST Mr-staph dna amp probe 04/16/2019 [place] 12:00:00 AM Hospital EST Complete cbc w/auto diff wbc 04/16/2019 [place] 12:00:00 AM Hospital EST Urinalysis auto w/o scope 04/16/2019 [facility] [place] 12:00:00 AM [facility] EST Emergency dept visit 04/16/2019 [facility] 12:00:00 AM [facility] EST [facility]06[facility] [place] chest, combined 12:00:00 AM Hospital posteroanterior and lateral EST (procedure) Emergency dept visit 04/06/2019 [facility] 12:00:00 AM Hospital EST Diagnostic radiography of 04/06/2019 [facility] [place] chest, combined 12:00:00 AM Hospital posteroanterior and lateral EST (procedure) Emergency dept visit 04/06/2019 [facility] 12:00:00 AM [facility] EST Diagnostic radiography of 04/06/2019 [facility] [place] chest, combined 12:00:00 AM Hospital posteroanterior and lateral EST (procedure) Reagent strip/blood glucose 03/09/2019 [place] 12:00:00 AM Hospital EST Drug test prsmv chem anlyzr 03/09/2019 [place] 12:00:00 AM Hospital EST Comprehen metabolic panel 03/09/2019 [facility] [place] 12:00:00 AM [facility] EST Drug test prsmv chem anlyzr 03/09/2019 [place] 12:00:00 AM Hospital EST Mr-staph dna amp probe 03/09/2019 [place] 12:00:00 AM Hospital EST Complete cbc w/auto diff wbc 03/09/2019 [place] 12:00:00 AM Hospital EST Urinalysis auto w/o scope 03/09/2019 [facility] [place] 12:00:00 AM Hospital EST Emergency dept visit 03/09/2019 [facility] 12:00:00 AM Hospital EST Electrocardiographic procedure 03/02/2019 [place] (procedure) 12:00:00 AM Hospital EST Electrocardiographic procedure 03/02/2019 [place] (procedure) 12:00:00 AM Hospital EST Computed tomography of head 03/01/2019 [place] without contrast 12:00:00 AM Hospital EST Electrocardiographic procedure 03/01/2019 [place] (procedure) 12:00:00 AM Hospital EST Plain chest X-ray (procedure) 03/01/2019 [place] 12:00:00 AM Hospital EST Computed tomography of head 03/01/2019 [place] without contrast 12:00:00 AM Hospital EST Electrocardiographic procedure 03/01/2019 [place] (procedure) 12:00:00 AM Hospital EST Plain chest X-ray (procedure) 03/01/2019 [place] 12:00:00 AM Hospital EST Plain chest X-ray (procedure) 02/14/2019 [place] 12:00:00 AM Hospital EDT Computed tomography of head 02/14/2019 [place] without contrast 12:00:00 AM Hospital EDT Electrocardiographic procedure 02/14/2019 [place] (procedure) 12:00:00 AM Hospital EDT INSULIN INJECTION 02/14/2019 [place] 12:[facility] AM [facility] EDT INSULIN INJECTION 02/14/2019 [place] 12:00:[address] head/brain w/o dye 02/14/2019 [place] 12:00:00 AM Hospital EDT X-ray exam chest 1 view 02/14/2019 [place] [facility] [place] 12:00:00 AM [facility] EDT Electrocardiogram tracing 02/14/2019 [facility] [place] 12:00:00 AM Hospital EDT Assay of lipase 02/14/2019 [place] 12:00:00 AM Hospital EDT Reagent strip/blood glucose 02/14/2019 [place] 12:00:00 AM Hospital EDT Drug test prsmv chem anlyzr 02/14/2019 [place] 12:00:00 AM Hospital EDT Comprehen metabolic panel 02/14/2019 [facility] [place] 12:00:00 AM Hospital EDT Drug test prsmv chem anlyzr 02/14/2019 [place] 12:00:00 AM Hospital EDT Metabolic panel total ca 02/14/2019 [facility] [place] 12:00:00 AM [facility] EDT Assay of ammonia 02/14/2019 [place] 12:00:00 AM [facility] EDT Mr-staph dna amp probe 02/14/2019 [place] 12:00:00 AM Hospital EDT Complete cbc automated 02/14/2019 [place] 12:00:00 AM Hospital EDT Urinalysis auto w/o scope 02/14/2019 [facility] [place] 12:00:00 AM [facility] EDT Hydrate iv infusion add-on 02/14/2019 [facility] [place] 12:00:00 AM [facility] EDT Hydrate iv infusion add-on 02/14/2019 [facility] [place] 12:00:00 AM [facility] EDT Tx/pro/dx inj same drug pharmacoepidemiologist 02/14/2019 [place] 12:00:00 AM Hospital EDT Tx/pro/dx inj same drug pharmacoepidemiologist 02/14/2019 [place] 12:00:00 AM Hospital EDT Ther/proph/diag inj iv push 02/14/2019 [place] 12:00:00 AM Hospital EDT Emergency dept visit 02/14/2019 [facility] 12:00:00 AM Hospital EDT Plain chest X-ray (procedure) 02/14/2019 [place] 12:00:00 AM Hospital EDT Computed tomography of head 02/14/2019 [place] without contrast 12:00:00 AM Hospital EDT Electrocardiographic procedure 02/14/2019 [place] (procedure) 12:00:00 AM Hospital EDT INSULIN INJECTION 02/14/2019 [place] 12:[facility] AM [facility] EDT INSULIN INJECTION 02/14/2019 [place] 12:00:[address] head/brain w/o dye 02/14/2019 [place] 12:00:00 AM Hospital EDT X-ray exam chest 1 view 02/14/2019 [place] [facility] [place] 12:00:00 AM Hospital EDT Electrocardiogram tracing 02/14/2019 [facility] [place] 12:00:00 AM Hospital EDT Assay of lipase 02/14/2019 [place] 12:00:00 AM Hospital EDT Reagent strip/blood glucose 02/14/2019 [place] 12:00:00 AM Hospital EDT Drug test prsmv chem anlyzr 02/14/2019 [place] 12:00:00 AM Hospital EDT Comprehen metabolic panel 02/14/2019 [facility] [place] 12:00:00 AM Hospital EDT Drug test prsmv chem anlyzr 02/14/2019 [place] 12:00:00 AM Hospital EDT Metabolic panel total ca 02/14/2019 [facility] [place] 12:00:00 AM Hospital EDT Assay of ammonia 02/14/2019 [facility] 12:00:00 AM Hospital EDT Mr-staph dna amp probe 02/14/2019 [place] 12:00:00 AM Hospital EDT Complete cbc automated 02/14/2019 [place] 12:00:00 AM Hospital EDT Urinalysis auto w/o scope 02/14/2019 [facility] [place] 12:00:00 AM Hospital EDT Hydrate iv infusion add-on 02/14/2019 [facility] 12:00:00 AM Hospital EDT Hydrate iv infusion add-on 02/14/2019 [facility] 12:00:00 AM Hospital EDT Tx/pro/dx inj same drug pharmacoepidemiologist 02/14/2019 [place] 12:00:00 AM Hospital EDT Tx/pro/dx inj same drug pharmacoepidemiologist 02/14/2019 [place] 12:00:00 AM Hospital EDT Ther/proph/diag inj iv push 02/14/2019 [place] 12:00:00 AM Hospital EDT Emergency dept visit 02/14/2019 [facility] 12:00:00 AM Hospital EDT Plain chest X-ray (procedure) 02/14/2019 [place] 12:00:00 AM Hospital EDT Computed tomography of head 02/14/2019 [place] without contrast 12:00:00 AM Hospital EDT Electrocardiographic procedure 02/14/2019 [place] (procedure) 12:00:00 AM Hospital EDT Results ID Date Data Source [id number] 01/21/2020 04:34:00 PM EDT Health System NOTIFICATION AND READ BACK OF CRITICAL R ESULTS TO NADIR GAGNON RN ICU AT 1624 ON 01/18/20 BY NAGI NAVARRO.REPORTED CRI TICAL VALUES SHOULD BE INTERPRETED WITHIN CLINICAL CONTEXT. Name Value Range Interpretation Description Data Sup porting Code Source(s) Document(s ) Lactate 3.5 [place] [Moles/volum mmol/L Hospital e] in Serum or Plasma ID Date Data Source [id number] 01/21/2020 11:27:00 AM [facility] Manager Energy:ANN YOSI Name Value Range Interpretation Description Data Sup porting Code Source(s) Document(s ) Glucose 289 mg/dL [place] [Mass/volume] Hospital in Capillary blood by Glucometer ID Date Data Source [id number] 01/21/2020 08:54:00 AM [facility] Name Value Range Interpretation Description Data Sup porting Code Source(s) Document(s ) Phosphate 2.6 mg/dL [place] [Mass/volume] Hospital in Serum or Plasma ID Date Data Source [id number] 01/21/2020 08:54:00 AM [facility] Name Value Range Interpretation Description Data Sup porting Code Source(s) Document(s ) Magnesium 1.8 mg/dL [place] [Mass/volume] Hospital in Serum or Plasma ID Date Data Source [id number] 01/21/2020 08:54:00 AM [facility] Name Value Range Interpretation Description Data Sup porting Code Source(s) Document(s ) Aspartate 52 U/L [facility] amin[facility] [place] [Enzymatic Hospital activity/volume] in Serum or Plasma ID Date Data Source [id number] [facility] Interpretation Description Data Sup porting Code Source(s) Document(s ) Alanine 28 U/L [facility] amin[facility] [place] [Enzymatic Hospital activity/volume] in Serum or Plasma ID Date Data Source [id number] [facility] Value Range Interpretation Description Data Sup porting Code Source(s) Document(s ) Alkaline 76 U/L [place] phosphatase Hospital [Enzymatic activity/volume ] in Serum or Plasma ID Date Data Source [id number] 01/21/2020 08:54:00 AM EDT Health System Name Value Range Interpretation Description Data Sup porting Code Source(s) Document(s ) Bilirubin.t 1.5 mg/dL [facility] [Mass/volum e] in Serum or Plasma ID Date Data Source [id number] 01/21/2020 08:54:00 AM EDT Health System Name Value Range Interpretation Code Description Data Bryanna rce(s) Supporting Document(s ) [facility]in/[facility]] in Serum or Plasma ID Date Data Source [id number] 01/21/2020 08:54:00 AM EDT Health System Name Value Range Interpretation Description Data Sup porting Code Source(s) Document(s ) Albumin 2.6 g/dL [place] [[facility] ] in Serum or Plasma ID Date Data Source [id number] 01/21/2020 08:54:00 AM EDT Health System Name Value Range Interpretation Description Data Sup porting Code Source(s) Document(s ) Protein 5.4 g/dL [place] [[facility] ] in Serum or Plasma ID Date Data Source [id number] 01/21/2020 08:54:00 AM EDT Health System Name Value Range Interpretation Description Data Sup porting Code Source(s) Document(s ) Calcium 8.5 mg/dL [place] [[facility] ] in Serum or Plasma ID Date Data Source [id number] 01/21/2020 08:54:00 AM EDT Health System Name Value Range Interpretation Code Description Data Bryanna rce(s) Supporting Document(s ) Urea 13.3 [place] nitrogen/Cre [facility] atinine [Mass Ratio] in Serum or Plasma ID Date Data Source [id number] 01/21/2020 08:54:00 AM EDT [facility] Value Range Interpretation Description Data Sup porting Code Source(s) Document(s ) Creatinine 0.6 mg/dL [place] [[facility]volume[facility] in Serum or Plasma ID Date Data Source [id number] 01/21/2020 08:54:00 AM EDT [facility] Value Range Interpretation Description Data Sup porting Code Source(s) Document(s ) Urea nitrogen 8 mg/dL [place] [[facility] in Serum or Plasma ID Date Data Source [id number] 01/21/2020 08:54:00 AM EDT [facility] Value Range Interpretation Code Description Data Bryanna rce(s) Supporting Document(s ) Anion gap in 7 [place] Serum or [facility] Plasma ID Date Data Source [id number] 01/21/2020 08:54:00 AM EDT [facility] Value Range Interpretation Description Data Sup porting Code Source(s) Document(s ) Carbon 31 mmol/L [place] dioxide, Hospital total [Moles/volu me] in Serum or Plasma ID Date Data Source [id number] 01/21/2020 08:54:00 AM EDT [facility] Value Range Interpretation Description Data Sup porting Code Source(s) Document(s ) Chloride 107 [place] [Moles/volum mmol/L Hospital e] in Serum or Plasma ID Date Data Source [id number] 01/21/2020 08:54:00 AM EDT [facility] Value Range Interpretation Description Data Sup porting Code Source(s) Document(s ) Potassium 3.9 [place] [Moles/volume mmol/L Hospital ] in Serum or Plasma ID Date Data Source [id number] 01/21/2020 08:54:00 AM EDT Health System Name Value Range Interpretation Description Data Sup porting Code Source(s) Document(s ) Sodium 141 mmol/L [place] [Moles/volu Hospital tx] in Serum or Plasma ID Date Data Source [id number] 01/21/2020 08:54:00 AM EDT [facility] Value Range Interpretation Description Data Sup porting Code Source(s) Document(s ) Glucose 126 mg/dL [place] [[facility] ] in Serum or Plasma ID Date Data Source [id number] 01/21/2020 08:54:00 AM EDT [facility] Value Range Interpretation Description Data Sup porting Code Source(s) Document(s ) Manual MANUAL [place] differential Hospital performed [Presence] in Blood ID Date Data Source [id number] 01/21/2020 08:54:00 AM EDT [facility] Value Range Interpretation Code Description Data Bryanna rce(s) Supporting Document(s ) Cells 100 [facility] Hospital Total [#] in Blood ID Date Data Source [id number] 01/21/2020 08:54:00 AM EDT [facility] Value Range Interpretation Code Description Data Supporting Source(s) Document(s ) PLATELET NORMAL [facility] Hospital ID Date Data Source [id number] 01/21/2020 08:54:00 AM EDT [facility] Value Range Interpretation Code Description Data Supporting Source(s) Document(s ) POLYCHROMASIA 1+ Health System ID Date Data Source [id number] 01/21/2020 08:54:00 AM EDT [facility] Value Range Interpretation Code Description Data Bryanna rce(s) Supporting Document(s ) HYPOCHROMIA 1+ [place] Hospital ID Date Data Source [id number] 01/21/2020 08:54:00 AM EDT Health System Name Value Range Interpretation Description Data Sup porting Code Source(s) Document(s ) Eosinophils 0.30 [place] [#/volume] in 10*3/uL Hospital Blood by Manual count ID Date Data Source [id number] 01/21/2020 08:54:00 AM EDT Health System Name Value Range Interpretation Description Data Sup porting Code Source(s) Document(s ) Monocytes 0.12 [place] [#/volume] in 10*3/uL Hospital Blood by Manual count ID Date Data Source [id number] 01/21/2020 08:54:00 AM EDT [facility] Value Range Interpretation Description Data Sup porting Code Source(s) Document(s ) Lymphocytes 1.77 [place] [#/volume] in 10*3/uL Hospital Blood by Manual count ID Date Data Source [id number] 01/21/2020 08:54:00 AM EDT [facility] Value Range Interpretation Description Data Sup porting Code Source(s) Document(s ) Neutrophils 0.81 [place] [#/volume] in 10*3/uL Hospital Blood by Manual count ID Date Data Source [id number] 01/21/2020 08:54:00 AM EDT [facility] Value Range Interpretation Description Data Sup porting Code Source(s) Document(s ) Eosinophils/100 10 % [place] leukocytes in Hospital Blood by Manual count ID Date Data Source [id number] 01/21/2020 08:54:00 AM EDT Health System Name Value Range Interpretation Description Data Sup porting Code Source(s) Document(s ) Monocytes/100 4 % [place] leukocytes in Hospital Blood by Manual count ID Date Data Source [id number] 01/21/2020 08:54:00 AM EDT Health System Name Value Range Interpretation Description Data Sup porting Code Source(s) Document(s ) Lymphocytes/100 59 % [place] leukocytes in Hospital Blood by Manual count ID Date Data Source [id number] 01/21/2020 08:54:00 AM EDT Health System Name Value Range Interpretation Description Data Sup porting Code Source(s) Document(s ) Neutrophils/100 27 % [place] leukocytes in Hospital Blood by Manual count ID Date Data Source [id number] 01/21/2020 08:54:00 AM EDT Health System Name Value Range Interpretation Description Data Sup porting Code Source(s) Document(s ) Platelet mean 11.2 fL [place] volume Hospital [Entitic volume] in Blood by Automated count ID Date Data Source [id number] 01/21/2020 08:54:00 AM EDT [facility] Value Range Interpretation Description Data Sup porting Code Source(s) Document(s ) Platelets 149 [place] [#/volume] in 10*3/uL Hospital Blood by Automated count ID Date Data Source [id number] 01/21/2020 08:54:00 AM EDT [facility] Value Range Interpretation Description Data Sup porting Code Source(s) Document(s ) Erythrocyte 14.2 % [place] distribution Hospital width [Ratio] by Automated count ID Date Data Source [id number] 01/21/2020 08:54:00 AM EDT [facility] Value Range Interpretation Description Data Sup porting Code Source(s) Document(s ) Erythrocyte mean 32.9 [place] corpuscular g/dL Hospital hemoglobin concentration [Mass/volume] by Automated count ID Date Data Source [id number] 01/21/2020 08:54:00 AM EDT Health System Name Value Range Interpretation Description Data Sup porting Code Source(s) Document(s ) Erythrocyte 30.1 pg [facility] corpuscular hemoglobin [Entitic mass] by Automated count ID Date Data Source [id number] 01/21/2020 08:54:00 AM EDT [facility] Value Range Interpretation Description Data Sup porting Code Source(s) Document(s ) Erythrocyte 91.5 fL [facility] corpuscular volume [Entitic volume] by Automated count ID Date Data Source [id number] 01/21/2020 08:54:00 AM EDT [facility] Value Range Interpretation Description Data Sup porting Code Source(s) Document(s ) Hematocrit 34.3 % [place] [Volume Hospital Fraction] of Blood by Automated count ID Date Data Source [id number] 01/21/2020 08:54:00 AM EDT [facility] Value Range Interpretation Description Data Sup porting Code Source(s) Document(s ) Hemoglobin 11.3 g/dL [place] [Mass/volume] Hospital in Blood ID Date Data Source [id number] 01/21/2020 08:54:00 AM EDT [facility] Value Range Interpretation Description Data Sup porting Code Source(s) Document(s ) Erythrocytes 3.75 [place] [#/volume] in 10*6/uL Hospital Blood by Automated count ID Date Data Source [id number] 01/21/2020 08:54:00 AM EDT [facility] Value Range Interpretation Description Data Sup porting Code Source(s) Document(s ) Leukocytes 3.0 [place] [#/volume] in 10*3/uL Hospital Blood by Automated count ID Date Data Source [id number] 01/20/2020 04:50:00 PM EDT Health System Name Value Range Interpretation Description Data Sup porting Code Source(s) Document(s ) GLUCOSE RN Notified [facility] Hospital ID Date Data Source [id number] 01/20/2020 06:19:00 AM EDT [facility] Value Range Interpretation Code Description Data Supporting Source(s) Document(s ) NUCLEATED RBCS 0.0 % [place] (AUTO Hospital DIFF%)DIS ID Date Data Source [id number] [facility] Description Data Sup porting Code Source(s) Document(s ) Differential AUTOMATED [place] cell count [facility] method - Blood ID Date Data Source [id number] 01/20[facility]2020 [facility] Interpretation Description Data Sup porting Code Source(s) Document(s ) Immature 0.00 [place] granulocytes 10*3/uL Hospital [#/volume] in Blood by Automated count ID Date Data Source [id number] 01/20/2020 [facility] Description Data Sup porting Code Source(s) Document(s ) Basophils 0.02 [place] [#/volume] in 10*3/uL Hospital Blood by Automated count ID Date Data Source [id number] [facility] Interpretation Description Data Sup porting Code Source(s) Document(s ) Eosinophils 0.19 [place] [#/volume] in 10*3/uL Hospital Blood by Automated count ID Date Data Source [id number] 01/20/2020 06:19:00 AM EDT [facility] Value Range Interpretation Description Data Sup porting Code Source(s) Document(s ) Monocytes 0.35 [place] [#/volume] in 10*3/uL Hospital Blood by Automated count ID Date Data Source [id number] 01/20/2020 06:19:00 AM EDT Health System Name Value Range Interpretation Description Data Sup porting Code Source(s) Document(s ) Lymphocytes 2.02 [place] [#/volume] in 10*3/uL Hospital Blood by Automated count ID Date Data Source [id number] 01/20/2020 06:19:00 AM EDT [facility] Value Range Interpretation Description Data Sup porting Code Source(s) Document(s ) Neutrophils 0.93 [place] [#/volume] in 10*3/uL [facility] Blood by Automated count ID Date Data Source [id number] 01/20/2020 06:19:00 AM EDT [facility] Value Range Interpretation Description Data Sup porting Code Source(s) Document(s ) Nucleated 0.0 % [place] erythrocytes/10 Hospital 0 leukocytes [Ratio] in Blood by Automated count ID Date Data Source [id number] 01/20/2020 06:19:00 AM EDT [facility] Value Range Interpretation Description Data Sup porting Code Source(s) Document(s ) Immature 0.0 % [place] granulocytes/10 Hospital 0 leukocytes in Blood by Automated count ID Date Data Source [id number] 01/20/2020 06:19:00 AM EDT [facility] Value Range Interpretation Description Data Sup porting Code Source(s) Document(s ) Basophils/100 0.6 % [place] leukocytes in Hospital Blood by Automated count ID Date Data Source [id number] 01/20/2020 06:19:00 AM EDT [facility] Value Range Interpretation Description Data Sup porting Code Source(s) Document(s ) Eosinophils/100 5.4 % [place] leukocytes in Hospital Blood by Automated count ID Date Data Source [id number] 01/20/2020 06:19:00 AM EDT Health System Name Value Range Interpretation Description Data Sup porting Code Source(s) Document(s ) Monocytes/100 10.0 % [place] leukocytes in Hospital Blood by Automated count ID Date Data Source [id number] 01/20/2020 06:19:00 AM EDT Health System Name Value Range Interpretation Description Data Sup porting Code Source(s) Document(s ) Lymphocytes/10 57.5 % [place] 0 leukocytes Hospital in Blood by Automated count ID Date Data Source [id number] 01/20/2020 06:19:00 AM EDT Health System Name Value Range Interpretation Description Data Sup porting Code Source(s) Document(s ) Neutrophils/10 26.5 % [place] 0 leukocytes Hospital in Blood by Automated count ID Date Data Source [id number] 01/19/2020 10:29:00 AM EDT Health System Name Value Range Interpretation Description Data Sup porting Code Source(s) Document(s ) Ammonia 47 mmol/L [place] [Moles/volum Hospital e] in Plasma ID Date Data Source [id number] 01/18/2020 01:42:00 PM EDT [facility] Value Range Interpretation Code Description Data Bryanna rce(s) Supporting Document(s ) ABG TEMP 97.7 Health System ID Date Data Source [id number] 01/18/2020 01:42:00 PM EDT Health System Name Value Range Interpretation Code Description Data Bryanna rce(s) Supporting Document(s ) FIO2 21 % Health System ID Date Data Source [id number] 01/18/2020 01:42:00 PM EDT Health System Name Value Range Interpretation Code Description Data Bryanna rce(s) Supporting Document(s ) ABG BE -12.8 [place] mmol/L Hospital ID Date Data Source [id number] 01/18/2020 01:42:00 PM EDT [facility] Value Range Interpretation Code Description Data Bryanna rce(s) Supporting Document(s ) ABG O2SAT 82 % [facility] System ID Date Data Source [id number] 01/18/2020 01:42:00 PM EDT [facility] Value Range Interpretation Code Description Data Bryanna rce(s) Supporting Document(s ) ABG HCO3 13 mmol/L Health System ID Date Data Source [id number] 01/18/2020 01:42:00 PM EDT [facility] Value Range Interpretation Code Description Data Bryanna rce(s) Supporting Document(s ) ABG PO2 53 mm[Hg] Health System ID Date Data Source [id number] 01/18/2020 01:42:00 PM EDT [facility] Value Range Interpretation Code Description Data Bryanna rce(s) Supporting Document(s ) ABG PCO2 30 mm[Hg] Health System ID Date Data Source [id number] 01/18/2020 01:42:00 PM EDT [facility] Value Range Interpretation Code Description Data Bryanna rce(s) Supporting Document(s ) ABG PH 7.26 Health System ID Date Data Source [id number] 01/18/2020 01:42:00 PM EDT [facility] Value Range Interpretation Code Description Data Bryanna rce(s) Supporting Document(s ) ABG MODE [facility] ID Date Data Source [id number] 01/18/2020 01:42:00 PM EDT [facility] Value Range Interpretation Description Data Sup porting Code Source(s) Document(s ) ABG SITE Peripheral [facility] Hospital ID Date Data Source [id number] 01/18/2020 01:42:00 PM EDT [facility] Value Range Interpretation Code Description Data Bryanna rce(s) Supporting Document(s ) JORGE TEST POSITIVE Health System ID Date Data Source [id number] 01/18/2020 01:42:00 PM EDT [facility] Value Range Interpretation Code Description Data Bryanna rce(s) Supporting Document(s ) READ BACK Yes/MD Health System ID Date Data Source [id number] 01/18/2020 01:42:00 PM EDT [facility] Value Range Interpretation Code Description Data Bryanna rce(s) Supporting Document(s ) NOTE WHO [place] Martell,[facility] ael ID Date Data Source [id number] 01/18/2020 01:42:00 PM EDT [facility] Value Range Interpretation Description Data Sup porting Code Source(s) Document(s ) IONIZED 1.46 [place] CALCIUM mmol/L Hospital ID Date Data Source [id number] 01/18/2020 01:42:00 PM EDT [facility] Value Range Interpretation Code Description Data Supporting Source(s) Document(s ) METHEMOGLOBIN 0.7 % Health System ID Date Data Source [id number] 01/18/2020 01:42:00 PM EDT [facility] Value Range Interpretation Description Data Sup porting Code Source(s) Document(s ) CARBOXYHEMOGLOBIN 0.7 % Health System ID Date Data Source [id number] 01/18/2020 01:29:00 PM EDT Health System CUT-OFF >= 25 NG/ML.THE FINDINGS OF THE [...] rce(s) Supporting Document(s ) PCP (UR) NEGATIVE Health System ID Date Data Source [id number] 01/18/2020 01:29:00 PM EDT Health System CUT-OFF >= 50 NG/ML. Name Value Range Interpretation Code Description Data Bryanna rce(s) Supporting Document(s ) THC (UR) NEGATIVE Health System ID Date Data Source [id number] 01/18/2020 01:29:00 PM EDT Health System CUT-OFF >= 300 NG/ML. Name Value Range Interpretation Description Data Sup porting Code Source(s) Document(s ) OPIATES (UR) NEGATIVE Health System ID Date Data Source [id number] 01/18/2020 01:29:00 PM EDT Health System CUT-OFF >= 300 NG/ML. Name Value Range Interpretation Description Data Sup porting Code Source(s) Document(s ) COCAINE (UR) NEGATIVE Health System ID Date Data Source [id number] 01/18/2020 01:29:00 PM EDT Health System CUT-OFF >= 200 NG/ML. Name Value Range Interpretation Description Data Sup porting Code Source(s) Document(s ) BENZODIAZEPINES NEGATIVE [place] (UR) [facility] ID Date Data Source [id number] 01/18/2020 01:29:00 PM EDT Health System CUT-OFF >= 200 NG/ML. Name Value Range Interpretation Description Data Sup porting Code Source(s) Document(s ) BARBITURATES NEGATIVE [place] (UR) Hospital ID Date Data Source [id number] 01/18/2020 01:29:00 PM EDT Health System CUT-OFF >= 1000 NG/ML. Name Value Range Interpretation Description Data Sup porting Code Source(s) Document(s ) AMPHETAMINES NEGATIVE [place] (UR) Hospital ID Date Data Source [id number] 01/18/2020 01:29:00 PM EDT [place] [facility] Name Value Range Interpretation Description Data Sup porting Code Source(s) Document(s ) Epithelial 3+ [place] cells.squamous Hospital [#/area] in Urine sediment by Microscopy high power field ID Date Data Source [id number] 01/18/2020 01:29:00 PM EDT Health System Name Value Range Interpretation Description Data Sup porting Code Source(s) Document(s ) Erythrocytes 0-3 [place] [#/area] in /[HPF] Hospital Urine sediment by Microscopy high power field ID Date Data Source [id number] [facility] Interpretation Description Data Sup porting Code Source(s) Document(s ) Leukocytes 0-3 [place] [#/area] in /[HPF] Hospital Urine sediment by Microscopy high power field ID Date Data Source [id number] 01/18/2020 01:29:00 PM EDT Health System Name Value Range Interpretation Description Data Sup porting Code Source(s) Document(s ) Leukocyte NEGATIVE [place] esterase Hospital [Presence] in Urine by Test strip ID Date Data Source [id number] 01/18/2020 [facility] Range Interpretation Description Data Sup porting Code Source(s) Document(s ) URINE NEGATIVE [place] NITRITES Hospital ID Date Data Source [id number] 01/18/2020 01:29:00 PM EDT Health System Name Value Range Interpretation Description Data Sup porting Code Source(s) Document(s ) Erythrocytes NEGATIVE [place] [#/volume] in Hospital Urine by Test strip ID Date Data Source [id number] 01/18/2020 01:29:00 PM EDT Health System Name Value Range Interpretation Code Description Data Bryanna rce(s) Supporting Document(s ) Bilirubin. NEGATIVE [place] total Hospital [Presence] in Urine by Test strip ID Date Data Source [id number] 01/18/2020 01:29:00 PM EDT [facility] Value Range Interpretation Description Data Sup porting Code Source(s) Document(s ) Urobilinogen 0.2 [place] [Units/volume] mg/dL Hospital in Urine by Test strip ID Date Data Source [id number] 01/18/2020 01:29:00 PM EDT Health System Name Value Range Interpretation Code Description Data Bryanna rce(s) Supporting Document(s ) Ketones 4+ [place] [Mass/volume Hospital ] in Urine by Test strip ID Date Data Source [id number] 01/18/2020 01:29:00 PM EDT Health System Name Value Range Interpretation Code Description Data Bryanna rce(s) Supporting Document(s ) Glucose 3+ [place] [Mass/volume Hospital ] in Urine by Test strip ID Date Data Source [id number] 01/18/2020 01:29:00 PM EDT Health System Name Value Range Interpretation Code Description Data Bryanna rce(s) Supporting Document(s ) Protein TRACE [place] [Presence] Hospital in Urine by Test strip ID Date Data Source [id number] [facility] Interpretation Code Description Data Bryanna rce(s) Supporting Document(s ) pH of Urine 5.0 [place] by Test Hospital strip ID Date Data Source [id number] 01/18/2020 [facility] Interpretation Code Description Data Supporting Source(s) Document(s ) Specific 1.035 [place] gravity of Hospital Urine by Test strip ID Date Data Source [id number] 01/18[facility]2020 [facility] Description Data Sup porting Code Source(s) Document(s ) Clarity in Urine TURBID [place] by Refractometry Hospital automated ID Date Data Source [id number] 01/18/2020 [facility] Interpretation Code Description Data Bryanna rce(s) Supporting Document(s ) Color of YELLOW [place] Urine Hospital ID Date Data Source [id number] 01/18/2020 11:15:00 AM [facility] Value Range Interpretation Description Data Sup porting Code Source(s) Document(s ) MISC TEST SEE COMMENT [place] REFERENCE ABOVE Hospital RANGE ID Date Data Source [id number] 01/18/2020 11:15:00 AM [facility] Beta-Hydroxybutyrate, S: 9.0 mmol/L (HIG H)Reference Value: <0.4TEST PERFORMED AT:[address] [address] Name Value Range Interpretation Code Description Data Supporting Source(s) Document(s ) MISC TEST SEE NOTE [facility] RESULT Hospital ID Date Data Source [id number] 01/18/2020 11:15:00 AM EDT [facility] Name Value Range Interpretation Code Description Data Bryanna rce(s) Supporting Document(s ) MISC TEST Beta-Taiban [place] NAME xybutyrate Hospital ID Date Data Source [id number] 01/18/2020 11:15:00 AM [facility] Name Value Range Interpretation Description Data Sup porting Code Source(s) Document(s ) Thyroxine 0.7 ng/dL [place] (T4) free Hospital [Mass/volume] in Serum or Plasma ID Date Data Source [id number] 01/18/2020 11:15:00 AM [facility] Name Value Range Interpretation Description Data Sup porting Code Source(s) Document(s ) Thyrotropin 0.594 [place] [Units/volume] u[IU]/mL Hospital in Serum or Plasma by Detection limit <= 0.005 mIU/L ID Date Data Source [id number] 01/18/2020 11:15:00 AM [facility] TEST PERFORMED BY [employer] ULTRA SENSITIVE CENTAUR CHEMILUMINESCENCE METHOD. Name Value Range Interpretation Description Data Sup porting Code Source(s) Document(s ) Troponin 0.04 [place] I.cardiac ng/mL Hospital [Mass/volume ] in Serum or Plasma ID Date Data Source [id number] 01/18/2020 11:15:00 AM [facility] Value Range Interpretation Code Description Data Bryanna rce(s) Supporting Document(s ) Lipase 16 U/L [place] [Enzymatic Hospital activity/vo lume] in Serum or Plasma ID Date Data Source [id number] 01/18/2020 11:15:00 AM [facility] THERAPEUTIC RANGE FOR STANDARD ORALANTIC OAGULANT THERAPY: 2.0-3.0THERAPEUTIC RANGE FOR HIGH DOSE ORALANTICOAGULANT THERAPY (MECHANICAL HEARTVALVE REPLACEMENT): 2.5-3.5 Name Value Range Interpretation Description Data Sup porting Code Source(s) Document(s ) INR in Platelet 0.9 [place] poor plasma by Hospital Coagulation assay ID Date Data Source [id number] 01/18/2020 11:15:00 AM [facility] Name Value Range Interpretation Description Data Sup porting Code Source(s) Document(s ) PT panel - 10.4 s [place] Platelet poor [facility] plasma by Coagulation assay ID Date Data Source [id number] 01/10/2020 05:41:00 AM [facility] Manager Energy:BECKY LEIVA Name Value Range Interpretation Description Data Sup porting Code Source(s) Document(s ) Glucose 288 mg/dL [place] [Mass/volume] Hospital in Capillary blood by Glucometer ID Date Data Source [id number] 01/10/2020 01:22:00 AM [facility] Name Value Range Interpretation Description Data Sup porting Code Source(s) Document(s ) Aspartate 44 U/L White aminotransferase [place] [Enzymatic Hospital activity/volume] in Serum or Plasma ID Date Data Source [id number] 01/10/2020 01:22:00 AM [facility] Value Range Interpretation Description Data Sup porting Code Source(s) Document(s ) Alanine 26 U/L White aminotransferase [place] [Enzymatic Hospital activity/volume] in Serum or Plasma ID Date Data Source [id number] 01/10/2020 01:22:00 AM [facility] Name Value Range Interpretation Description Data Sup porting Code Source(s) Document(s ) Alkaline 86 U/L [place] phosphatase Hospital [Enzymatic activity/volume ] in Serum or Plasma ID Date Data Source [id number] 01/10/2020 01:22:00 AM [facility] Name Value Range Interpretation Description Data Sup porting Code Source(s) Document(s ) Bilirubin.t 1.1 mg/dL [facility] [Mass/volum e] in Serum or Plasma ID Date Data Source [id number] 01/10/2020 01:22:00 AM EDT Health System Name Value Range Interpretation Code Description Data Bryanna rce(s) Supporting Document(s ) Albumin/Glob 1.1 [facility] [Mass [facility] Ratio] in Serum or Plasma ID Date Data Source [id number] 01/10/2020 01:22:00 AM EDT Health System Name Value Range Interpretation Description Data Sup porting Code Source(s) Document(s ) Albumin 3.1 g/dL [place] [Mass/volume Hospital ] in Serum or Plasma ID Date Data Source [id number] 01/10/2020 01:22:00 AM EDT Health System Name Value Range Interpretation Description Data Sup porting Code Source(s) Document(s ) Protein 6.0 g/dL [place] [Mass/volume Hospital ] in Serum or Plasma ID Date Data Source [id number] 01/10/2020 01:22:00 AM [facility] Name Value Range Interpretation Description Data Sup porting Code Source(s) Document(s ) Calcium 8.8 mg/dL [place] [Mass/volume Hospital ] in Serum or Plasma ID Date Data Source [id number] 01/10/2020 01:22:00 AM [facility] UNITS ARE IN ml/min/1.73m2.IF PATIENT IS -JORDANIAN, MULTIPLY REPORTED RESULT BY 1.21. Name Value Range Interpretation Description Data Sup porting Code Source(s) Document(s ) Glomerular > 60 [place] filtration mL/min Hospital rate/1.73 sq M.predicted [Volume Rate/Area] in Serum or Plasma by Creatinine-bas ed formula (MDRD) ID Date Data Source [id number] 01/10/2020 01:22:00 AM EDT Health System Name Value Range Interpretation Code Description Data Bryanna rce(s) Supporting Document(s ) Urea 10.0 [place] nitrogen/Cre Hospital atinine [Mass Ratio] in Serum or Plasma ID Date Data Source [id number] 01/10/2020 01:22:00 AM EDT Health System Name Value Range Interpretation Description Data Sup porting Code Source(s) Document(s ) Creatinine 0.9 mg/dL [place] [Mass/volume] Hospital in Serum or Plasma ID Date Data Source [id number] [facility] Interpretation Description Data Sup porting Code Source(s) Document(s ) Urea nitrogen 9 mg/dL [place] [Mass/volume] Hospital in Serum or Plasma ID Date Data Source [id number] 01/10/2020 01:22:00 AM EDT Health System Name Value Range Interpretation Code Description Data Bryanna rce(s) Supporting Document(s ) Anion gap in 11 [facility] Serum or [facility] Plasma ID Date Data Source [id number] 01/10/[facility] Value Range Interpretation Description Data Sup porting Code Source(s) Document(s ) Carbon 30 mmol/L [place] dioxide, Hospital total [Moles/volu me] in Serum or Plasma ID Date Data Source [id number] 01/10/2020 [facility] Value Range Interpretation Description Data Sup porting Code Source(s) Document(s ) Chloride 104 [place] [Moles/volum mmol/L Hospital e] in Serum or Plasma ID Date Data Source [id number] 01/10/2020 01:22:00 AM EDT Health System THIS RESULT HAS BEEN VERIFIED. Name Value Range Interpretation Description Data Sup porting Code Source(s) Document(s ) Potassium 4.7 [place] [Moles/volume mmol/L Hospital ] in Serum or Plasma ID Date Data Source [id number] 01/10/2020 01:22:00 AM EDT Health System Name Value Range Interpretation Description Data Sup porting Code Source(s) Document(s ) Sodium 140 mmol/L [place] [Moles/volu Hospital tx] in Serum or Plasma ID Date Data Source [id number] 01/10/2020 01:22:00 AM [facility] NOTIFICATION AND READ BACK OF CRITICAL R ESULTS TO DIANA STRATTON OF AT 0209 ON 01/10/20 BY Jeri Iraheta.PLEASE NOTE FIDEL NGE IN CRITICAL GLUCOSE VALUES EFFECTIVE 04/22/17.REPORTED CRITICAL VALUES SHOULD B E INTERPRETED WITHIN CLINICAL CONTEXT. Name Value Range Interpretation Description Data Sup porting Code Source(s) Document(s ) Glucose 474 mg/dL [place] [Mass/volume Hospital ] in Serum or Plasma ID Date Data Source [id number] 01/10/2020 01:22:00 AM [facility] Name Value Range Interpretation Description Data Sup porting Code Source(s) Document(s ) Differential AUTOMATED [place] cell count [facility] method - Blood ID Date Data Source [id number] 01/10/2020 01:22:00 AM [facility] Name Value Range Interpretation Description Data Sup porting Code Source(s) Document(s ) Immature 0.01 [place] granulocytes 10*3/uL Hospital [#/volume] in Blood by Automated count ID Date Data Source [id number] 01/10/2020 01:22:00 AM [facility] Name Value Range Interpretation Description Data Sup porting Code Source(s) Document(s ) Basophils 0.05 [place] [#/volume] in 10*3/uL Hospital Blood by Automated count ID Date Data Source [id number] 01/10/2020 01:22:00 AM EDT [facility] Value Range Interpretation Description Data Sup porting Code Source(s) Document(s ) Eosinophils 0.35 [place] [#/volume] in 10*3/uL Hospital Blood by Automated count ID Date Data Source [id number] 01/10/2020 01:22:00 AM EDT [facility] Value Range Interpretation Description Data Sup porting Code Source(s) Document(s ) Monocytes 0.47 [place] [#/volume] in 10*3/uL Hospital Blood by Automated count ID Date Data Source [id number] 01/10/2020 01:22:00 AM EDT [facility] Value Range Interpretation Description Data Sup porting Code Source(s) Document(s ) Lymphocytes 2.46 [place] [#/volume] in 10*3/uL Hospital Blood by Automated count ID Date Data Source [id number] 01/10/2020 01:22:00 AM EDT [facility] Value Range Interpretation Description Data Sup porting Code Source(s) Document(s ) Neutrophils 0.96 [place] [#/volume] in 10*3/uL Hospital Blood by Automated count ID Date Data Source [id number] 01/10/2020 01:22:00 AM EDT [facility] Value Range Interpretation Description Data Sup porting Code Source(s) Document(s ) Nucleated 0.0 % [place] erythrocytes/10 Hospital 0 leukocytes [Ratio] in Blood by Automated count ID Date Data Source [id number] 01/10/2020 01:22:00 AM EDT [facility] Value Range Interpretation Description Data Sup porting Code Source(s) Document(s ) Immature 0.2 % [place] granulocytes/10 Hospital 0 leukocytes in Blood by Automated count ID Date Data Source [id number] 01/10/2020 01:22:00 AM EDT Health System Name Value Range Interpretation Description Data Sup porting Code Source(s) Document(s ) Basophils/100 1.2 % [place] leukocytes in Hospital Blood by Automated count ID Date Data Source [id number] 01/10/2020 01:22:00 AM EDT Health System Name Value Range Interpretation Description Data Sup porting Code Source(s) Document(s ) Eosinophils/100 8.1 % [place] leukocytes in Hospital Blood by Automated count ID Date Data Source [id number] 01/10/2020 01:22:00 AM EDT [facility] Value Range Interpretation Description Data Sup porting Code Source(s) Document(s ) Monocytes/100 10.9 % [place] leukocytes in Hospital Blood by Automated count ID Date Data Source [id number] 01/10/2020 01:22:00 AM EDT Health System Name Value Range Interpretation Description Data Sup porting Code Source(s) Document(s ) Lymphocytes/10 57.2 % [place] 0 leukocytes Hospital in Blood by Automated count ID Date Data Source [id number] 01/10/2020 01:22:00 AM EDT [facility] Value Range Interpretation Description Data Sup porting Code Source(s) Document(s ) Neutrophils/10 22.4 % [place] 0 leukocytes Hospital in Blood by Automated count ID Date Data Source [id number] 01/10/2020 01:22:00 AM EDT Health System Name Value Range Interpretation Description Data Sup porting Code Source(s) Document(s ) Platelet mean 13.0 fL [place] volume Hospital [Entitic volume] in Blood by Automated count ID Date Data Source [id number] 01/10/2020 01:22:00 AM [facility] Value Range Interpretation Description Data Sup porting Code Source(s) Document(s ) Platelets 215 [place] [#/volume] in 10*3/uL Hospital Blood by Automated count ID Date Data Source [id number] 01/10/2020 01:22:00 AM [facility] Value Range Interpretation Description Data Sup porting Code Source(s) Document(s ) Erythrocyte 15.5 % [facility] Hospital width [Ratio] by Automated count ID Date Data Source [id number] 01/10/2020 01:22:00 AM [facility] Value Range Interpretation Description Data Sup porting Code Source(s) Document(s ) Erythrocyte mean 34.5 [place] corpuscular g/dL Hospital hemoglobin concentration [Mass/volume] by Automated count ID Date Data Source [id number] 01/10/2020 01:22:00 AM [facility] Value Range Interpretation Description Data Sup porting Code Source(s) Document(s ) Erythrocyte 30.5 pg [facility] corpuscular hemoglobin [Entitic mass] by Automated count ID Date Data Source [id number] 01/10/2020 01:22:00 AM [facility] Value Range Interpretation Description Data Sup porting Code Source(s) Document(s ) Erythrocyte 88.5 fL [facility] corpuscular volume [Entitic volume] by Automated count ID Date Data Source [id number] 01/10/2020 01:22:00 AM [facility] Value Range Interpretation Description Data Sup porting Code Source(s) Document(s ) Hematocrit 32.2 % [place] [Volume Hospital Fraction] of Blood by Automated count ID Date Data Source [id number] 01/10/2020 01:22:00 AM [facility] Name Value Range Interpretation Description Data Sup porting Code Source(s) Document(s ) Hemoglobin 11.1 g/dL [place] [Mass/volume] Hospital in Blood ID Date Data Source [id number] 01/10/2020 01:22:00 AM [facility] Name Value Range Interpretation Description Data Sup porting Code Source(s) Document(s ) Erythrocytes 3.64 [place] [#/volume] in 10*6/uL Hospital Blood by Automated count ID Date Data Source [id number] 01/10/2020 01:22:00 AM [facility] Name Value Range Interpretation Description Data Sup porting Code Source(s) Document(s ) Leukocytes 4.3 [place] [#/volume] in 10*3/uL Hospital Blood by Automated count ID Date Data Source [id number] 01/10/2020 01:22:00 AM [facility] UNITS ARE IN ml/min/1.73m2.IF PATIENT IS -JORDANIAN, MULTIPLY REPORTED RESULT BY 1.21. Name Value Range Interpretation Description Data Sup porting Code Source(s) Document(s ) Glomerular > 60 [place] filtration mL/min Hospital rate/1.73 sq M.predicted [Volume Rate/Area] in Serum or Plasma by Creatinine-bas ed formula (MDRD) ID Date Data Source [id number] 01/08/2020 11:43:00 AM [facility] Manager Energy:PAVEL DURAN Name Value Range Interpretation Description Data Sup porting Code Source(s) Document(s ) Glucose 177 mg/dL [place] [Mass/volume] [facility] in Capillary blood by Glucometer ID Date Data Source [id number] 01/08/2020 10:23:00 AM [facility] NOTIFICATION AND READ BACK OF CRITICAL R ESULTS TO [facility] DIZENZO R.N/EDAC AT 1119 ON 01/08/20 BY Sd Masterson.REPORTED CRITICAL VALUES SHOULD BE INTERPRETED WITHIN CLINICAL CONTEXT. Name Value Range Interpretation Description Data Sup porting Code Source(s) Document(s ) Lactate 2.8 [place] [Moles/volum mmol/L Hospital e] in Serum or Plasma ID Date Data Source [id number] 01/08/2020 10:23:00 AM EDT Health System NOTIFICATION AND READ BACK OF CRITICAL R ESULTS TO MUMTAZ CANDIEZENZO R.N/EDAC AT 1119 ON 01/08/20 BY Sd Masterson.REPORTED CRITICAL VALUES SHOULD BE INTERPRETED WITHIN CLINICAL CONTEXT. Name Value Range Interpretation Description Data Sup porting Code Source(s) Document(s ) Lactate 2.8 [place] [Moles/volum mmol/L Hospital e] in Serum or Plasma ID Date Data Source [id number] 01/08/2020 08:37:00 AM EDT Health System CUT-OFF >= 25 NG/ML.THE FINDINGS OF THE [...] rce(s) Supporting Document(s ) PCP (UR) NEGATIVE Health System ID Date Data Source [id number] 01/08/2020 08:37:00 AM EDT Health System CUT-OFF >= 50 NG/ML. Name Value Range Interpretation Code Description Data Bryanna rce(s) Supporting Document(s ) THC (UR) NEGATIVE Health System ID Date Data Source [id number] 01/08/2020 08:37:00 AM EDT Health System CUT-OFF >= 300 NG/ML. Name Value Range Interpretation Description Data Sup porting Code Source(s) Document(s ) OPIATES (UR) NEGATIVE [facility] ID Date Data Source [id number] 01/08/2020 08:37:00 AM EDT Health System CUT-OFF >= 300 NG/ML. Name Value Range Interpretation Description Data Sup porting Code Source(s) Document(s ) COCAINE (UR) POSITIVE [facility] ID Date Data Source [id number] 01/08/2020 08:37:00 AM EDT Health System CUT-OFF >= 200 NG/ML. Name Value Range Interpretation Description Data Sup porting Code Source(s) Document(s ) BENZODIAZEPINES NEGATIVE [place] (UR) [facility] ID Date Data Source [id number] 01/08/2020 08:37:00 AM EDT Health System CUT-OFF >= 200 NG/ML. Name Value Range Interpretation Description Data Sup porting Code Source(s) Document(s ) BARBITURATES NEGATIVE [place] (UR) Hospital ID Date Data Source [id number] 01/08/2020 08:37:00 AM EDT Health System CUT-OFF >= 1000 NG/ML. Name Value Range Interpretation Description Data Sup porting Code Source(s) Document(s ) AMPHETAMINES NEGATIVE [place] (UR) Hospital ID Date Data Source [id number] 01/08/2020 08:37:00 AM EDT Health System Name Value Range Interpretation Description Data Sup porting Code Source(s) Document(s ) Leukocyte NEGATIVE [place] esterase Hospital [Presence] in Urine by Test strip ID Date Data Source [id number] 01/08/2020 08:37:00 AM EDT Health System Name Value Range Interpretation Description Data Sup porting Code Source(s) Document(s ) URINE NEGATIVE [facility] [place] NITRITES Hospital ID Date Data Source [id number] 01/08/2020 08:37:00 AM EDT Health System Name Value Range Interpretation Description Data Sup porting Code Source(s) Document(s ) Erythrocytes NEGATIVE [place] [#/volume] in Hospital Urine by Test strip ID Date Data Source [id number] 01/08/2020 08:37:00 AM EDT Health System Name Value Range Interpretation Code Description Data Bryanna rce(s) Supporting Document(s ) Bilirubin. NEGATIVE [place] total Hospital [Presence] in Urine by Test strip ID Date Data Source [id number] 01/08/2020 08:37:00 AM EDT Health System Name Value Range Interpretation Description Data Sup porting Code Source(s) Document(s ) Urobilinogen 1.0 [place] [Units/volume] mg/dL Hospital in Urine by Test strip ID Date Data Source [id number] 01/08/2020 08:37:00 AM EDT Health System Name Value Range Interpretation Description Data Sup porting Code Source(s) Document(s ) Ketones NEGATIVE [place] [Mass/volume Hospital ] in Urine by Test strip ID Date Data Source [id number] 01/08/2020 08:37:00 AM EDT Health System Name Value Range Interpretation Code Description Data Bryanna rce(s) Supporting Document(s ) Glucose 3+ [place] [Mass/volume Hospital ] in Urine by Test strip ID Date Data Source [id number] 01/08/2020 08:37:00 AM EDT Health System Name Value Range Interpretation Description Data Sup porting Code Source(s) Document(s ) Protein NEGATIVE [place] [Presence] Hospital in Urine by Test strip ID Date Data Source [id number] 01/08/2020 08:37:00 AM EDT Health System Name Value Range Interpretation Code Description Data Bryanna rce(s) Supporting Document(s ) pH of Urine 7.0 [place] by Test Hospital strip ID Date Data Source [id number] 01/08/2020 08:37:00 AM EDT Health System Name Value Range Interpretation Code Description Data Supporting Source(s) Document(s ) Specific 1.035 [place] gravity of Hospital Urine by Test strip ID Date Data Source [id number] 01/08/2020 08:37:00 AM EDT Health System Name Value Range Interpretation Description Data Sup porting Code Source(s) Document(s ) Clarity in Urine CLEAR [place] by Refractometry Hospital automated ID Date Data Source [id number] 01/08/2020 08:37:00 AM EDT Health System Name Value Range Interpretation Code Description Data Bryanna rce(s) Supporting Document(s ) Color of YELLOW [place] Urine Hospital ID Date Data Source [id number] 01/08/2020 08:37:00 AM [facility] CUT-OFF >= 25 NG/ML.THE FINDINGS [...] rce(s) Supporting Document(s ) PCP (UR) NEGATIVE Health System ID Date Data Source [id number] [facility]/ML[facility] Name Value Range Interpretation Code Description Data Bryanna rce(s) Supporting Document(s ) THC (UR) NEGATIVE [place] [facility] ID Date Data Source [id number] 01/08/2020 [facility] NG/ML. Name Value Range Interpretation Description Data Sup porting Code Source(s) Document(s ) OPIATES (UR) NEGATIVE [place] [place] [facility] ID Date Data Source [id number] 01/08/2020 08:37:00 AM EDT Health System CUT-OFF >= 300 NG/ML. Name Value Range Interpretation Description Data Sup porting Code Source(s) Document(s ) COCAINE (UR) POSITIVE [facility] [place] [facility] ID Date Data Source [id number] 01/08/2020 08:37:00 AM EDT Health System CUT-OFF >= 200 NG/ML. Name Value Range Interpretation Description Data Sup porting Code Source(s) Document(s ) BENZODIAZEPINES NEGATIVE [place] (UR) [facility] ID Date Data Source [id number] 01/08/2020 08:37:00 AM EDT Health System CUT-OFF >= 200 NG/ML. Name Value Range Interpretation Description Data Sup porting Code Source(s) Document(s ) BARBITURATES NEGATIVE [place] (UR) Hospital ID Date Data Source [id number] 01/08/2020 08:37:00 AM [facility] CUT-OFF >= 1000 NG/ML. Name Value Range Interpretation Description Data Sup porting Code Source(s) Document(s ) AMPHETAMINES NEGATIVE [place] (UR) Hospital ID Date Data Source [id number] 01/08/2020 08:37:00 AM EDT Health System Name Value Range Interpretation Description Data Sup porting Code Source(s) Document(s ) Leukocyte NEGATIVE [facility] Hospital [Presence] in Urine by Test strip ID Date Data Source [id number] 01/08/[facility] Value Range Interpretation Description Data Sup porting Code Source(s) Document(s ) URINE NEGATIVE [place] [facility]ITR[facility] ID Date Data Source [id number] 01/08/2020 08:37:00 AM EDT [facility] Name Value Range Interpretation Description Data Sup porting Code Source(s) Document(s ) Erythrocytes NEGATIVE [place] [#/volume] in Hospital Urine by Test strip ID Date Data Source [id number] 01/08/2020 08:37:00 AM EDT Health System Name Value Range Interpretation Code Description Data Bryanna rce(s) Supporting Document(s ) Bilirubin. NEGATIVE [place] total Hospital [[facility]] in Urine by Test strip ID Date Data Source [id number] 01/08/2020 08:37:00 AM EDT Health System Name Value Range Interpretation Description Data Sup porting Code Source(s) Document(s ) Urobilinogen 1.0 [place] [Units/volume] mg/dL Hospital in Urine by Test strip ID Date Data Source [id number] 01/08/2020 08:37:00 AM EDT Health System Name Value Range Interpretation Description Data Sup porting Code Source(s) Document(s ) Ketones NEGATIVE [place] [Mass[facility]volume Hospital ] in Urine by Test strip ID Date Data Source [id number] 01/08/2020 08:37:00 AM EDT Health System Name Value Range Interpretation Code Description Data Bryanna rce(s) Supporting Document(s ) Glucose 3+ [place] [Mass/volume Hospital ] in Urine by Test strip ID Date Data Source [id number] 01/08/2020 08:37:00 AM EDT Health System Name Value Range Interpretation Description Data Sup porting Code Source(s) Document(s ) Protein NEGATIVE [place] [[facility]] [facility] in Urine by Test strip ID Date Data Source [id number] 01/08/2020 08:37:00 AM EDT Health System Name Value Range Interpretation Code Description Data Bryanna rce(s) Supporting Document(s ) pH of Urine 7.0 [place] by Test Hospital strip ID Date Data Source [id number] [facility] Code Description Data Supporting Source(s) Document(s ) Specific 1.035 [place] gravity of Hospital Urine by Test strip ID Date Data Source [id number] [facility] Interpretation Description Data Sup porting Code Source(s) Document(s ) Clarity in Urine CLEAR [place] by Refract[facility] automated ID Date Data Source [id number] [facility] Value Range Interpretation Code Description Data Bryanna rce(s) Supporting Document(s ) Color of YELLOW [place] Urine Hospital ID Date Data Source [id number] 01/08/2020 08:21:00 AM [facility] TEST PERFORMED BY [employer] [facility] ULTRA SENSITIVE CENTAUR CHEMILUMINESCENCE METHOD. Name Value Range Interpretation Description Data Sup porting Code Source(s) Document(s ) Troponin 0.01 [place] I.cardiac ng/mL Hospital [Mass/volume ] in Serum or Plasma ID Date Data Source [id number] 01/08/2020 [facility] Name Value Range Interpretation Code Description Data Bryanna rce(s) Supporting Document(s ) Lipase 36 U/L [place] [Enzymatic Hospital activity/vo lume] in Serum or Plasma ID Date Data Source [id number] 01/08/2020 [facility] Value Range Interpretation Description Data Sup porting Code Source(s) Document(s ) Phosphate 3.1 mg/dL [place] [Mass/volume] Hospital in Serum or Plasma ID Date Data Source [id number] 01/08/2020 08:21:00 AM EDT Health System Name Value Range Interpretation Description Data Sup porting Code Source(s) Document(s ) Magnesium 1.5 mg/dL [place] [Mass/volume] Hospital in Serum or Plasma ID Date Data Source [id number] 01/08/2020 08:21:00 AM EDT Health System THERAPEUTIC RANGES:UNFRACTIONATED HEPARI N THERAPY: 60-90 SECONDSARGATROBAN THERAPY: 49-99 SECONDS Name Value Range Interpretation Description Data Sup porting Code Source(s) Document(s ) aPTT in 28.1 s [place] Platelet poor [facility] plasma by Coagulation assay ID Date Data Source [id number] 01/08/2020 08:21:00 AM [facility] THERAPEUTIC RANGE FOR STANDARD ORALANTIC OAGULANT THERAPY: 2.0-3.0THERAPEUTIC RANGE FOR HIGH DOSE ORALANTICOAGULANT THERAPY (MECHANICAL HEARTVALVE REPLACEMENT): 2.5-3.5 Name Value Range Interpretation Description Data Sup porting Code Source(s) Document(s ) INR in Platelet 1.0 [place] poor plasma by Hospital Coagulation assay ID Date Data Source [id number] 01/08/2020 08:21:00 AM EDT Health System Name Value Range Interpretation Description Data Sup porting Code Source(s) Document(s ) PT panel - 11.9 s [place] Platelet poor [facility] plasma by Coagulation assay ID Date Data Source [id number] 01/08/2020 08:21:00 AM EDT Health System Name Value Range Interpretation Code Description Data Supporting Source(s) Document(s ) NUCLEATED RBCS 0.0 % [place] (AUTO Hospital DIFF%)DIS ID Date Data Source [id number] 01/08/2020 08:21:00 AM [facility] REFERENCE RANGES: NONE DETECTED <20 MG/DL NONE TO MILD EUPHORIA 20-49 MG/DL MILD EUPHORIA 50-99 MG/DL MODERATE EUPHORIA 100-149 MG/DL INTOXICATION 150-300 MG/DL Name Value Range Interpretation Description Data Sup porting Code Source(s) Document(s ) Ethanol < 20 [place] [Mass/volume mg/dL Hospital ] in Serum or Plasma ID Date Data Source [id number] 01/08/2020 08:21:00 AM [facility] TEST RESULT IS A TOTAL [...] Code Source(s) Document(s ) TRICYCLIC < 80 [place] ANTIDEPRESSANT ng/mL Hospital ID Date Data Source [id number] 01/08/2020 08:21:00 AM [facility] REFERENCE RANGES: ANALGESIC: 0.0 - 10.0 MG/DL. ARTHRITIC THERAPY: 15.0 - 30.0 MG/DL. Name Value Range Interpretation Description Data Sup porting Code Source(s) Document(s ) Salicylates < 3.0 [place] [Mass/volume] mg/dL Hospital in Serum or Plasma ID Date Data Source [id number] 01/08/2020 08:21:00 AM [facility] THERAPEUTIC RANGE: 10.0-30.0 UG/MLTOXIC RANGE: 4 HRS AFTER INGESTION >150 UG/ML 12 HRS AFTER INGESTION >35 UG/ML Name Value Range Interpretation Description Data Sup porting Code Source(s) Document(s ) ACETAMINOPHEN < 10.0 [place] ug/mL Hospital ID Date Data Source [id number] 01/08/2020 08:21:00 AM EDT Health System TEST PERFORMED BY [employer] ULTRA SENSITIVE CENTA[facility] CHEMILUMINESCENCE METHOD. Name Value Range Interpretation Description Data Sup porting Code Source(s) Document(s ) Troponin 0.01 [place] I.cardiac ng/mL Hospital [Mass/volume ] in Serum or Plasma ID Date Data Source [id number] 01/08/2020 08:21:00 AM EDT Health System Name Value Range Interpretation Code Description Data Bryanna rce(s) Supporting Document(s ) Lipase 36 U/L [place] [Enzymatic Hospital activity/vo lume] in Serum or Plasma ID Date Data Source [id number] 01/08/2020 08:21:00 AM EDT Health System Name Value Range Interpretation Description Data Sup porting Code Source(s) Document(s ) Phosphate 3.1 mg/dL [place] [Mass/volume] Hospital in Serum or Plasma ID Date Data Source [id number] 01/08/2020 08:21:00 AM EDT [facility] Name Value Range Interpretation Description Data Sup porting Code Source(s) Document(s ) Magnesium 1.5 mg/dL [place] [Mass/volume] Hospital in Serum or Plasma ID Date Data Source [id number] 01/08/2020 08:21:00 AM EDT Health System Name Value Range Interpretation Description Data Sup porting Code Source(s) Document(s ) Aspartate 45 U/L White aminotransferase [place] [Enzymatic Hospital activity/volume] in Serum or Plasma ID Date Data Source [id number] 01/08/2020 08:21:00 AM EDT Health System Name Value Range Interpretation Description Data Sup porting Code Source(s) Document(s ) Alanine 27 U/L [facility] [Enzymatic Hospital activity/volume] in Serum or Plasma ID Date Data Source [id number] 01/08/2020 08:21:00 AM EDT Health System Name Value Range Interpretation Description Data Sup porting Code Source(s) Document(s ) Alkaline 78 U/L [place] phosphatase Hospital [Enzymatic activity/volume ] in Serum or Plasma ID Date Data Source [id number] 01/08/2020 08:21:00 AM EDT Health System Name Value Range Interpretation Description Data Sup porting Code Source(s) Document(s ) Bilirubin.t 1.1 mg/dL [facility] [Mass/volum e] in Serum or Plasma ID Date Data Source [id number] 01/08/2020 08:21:00 AM EDT Health System Name Value Range Interpretation Code Description Data Bryanna rce(s) Supporting Document(s ) Albumin/Glob 1.0 [place] ulin [Mass Hospital Ratio] in Serum or Plasma ID Date Data Source [id number] [facility] Value Range Interpretation Description Data Sup porting Code Source(s) Document(s ) Albumin 3.0 g/dL [place] [Mass/volume Hospital ] in Serum or Plasma ID Date Data Source [id number] 01/08/2020 08:21:00 AM EDT Health System Name Value Range Interpretation Description Data Sup porting Code Source(s) Document(s ) Protein 5.9 g/dL [place] [Mass/volume Hospital ] in Serum or Plasma ID Date Data Source [id number] 01/08/2020 [facility] Value Range Interpretation Description Data Sup porting Code Source(s) Document(s ) Calcium 8.8 mg/dL [place] [Mass/volume Hospital ] in Serum or Plasma ID Date Data Source [id number] 01/08/2020 08:21:00 AM EDT Health System Name Value Range Interpretation Code Description Data Bryanna rce(s) Supporting Document(s ) Urea 13.8 [place] nitrogen/[facility] atinine [Mass Ratio] in Serum or Plasma ID Date Data Source [id number] 01/08/2020 08:21:00 AM EDT Health System Name Value Range Interpretation Description Data Sup porting Code Source(s) Document(s ) Creatinine 0.8 mg/dL [place] [Mass/volume] Hospital in Serum or Plasma ID Date Data Source [id number] 01/08/2020 08:21:00 AM EDT Health System Name Value Range Interpretation Description Data Sup porting Code Source(s) Document(s ) Urea 11 mg/dL [place] nitrogen Hospital [Mass/volume ] in Serum or Plasma ID Date Data Source [id number] 01/08/2020 08:21:00 AM EDT Health System Name Value Range Interpretation Code Description Data Bryanna rce(s) Supporting Document(s ) Anion gap in 9 [place] Serum or Hospital Plasma ID Date Data Source [id number] 01/08/2020 08:21:00 AM EDT Health System Name Value Range Interpretation Description Data Sup porting Code Source(s) Document(s ) Carbon 27 mmol/L [place] dioxide, Hospital total [Moles/volu me] in Serum or Plasma ID Date Data Source [id number] 01/08/2020 08:21:00 AM EDT Health System Name Value Range Interpretation Description Data Sup porting Code Source(s) Document(s ) Chloride 113 [place] [Moles/volum mmol/L Hospital e] in Serum or Plasma ID Date Data Source [id number] 01/08/2020 08:21:00 AM [facility] Name Value Range Interpretation Description Data Sup porting Code Source(s) Document(s ) Potassium 3.3 [place] [Moles/volume mmol/L Hospital ] in Serum or Plasma ID Date Data Source [id number] 01/08/2020 08:21:00 AM [facility] REFERENCE RANGES: NONE DETECTED <20 MG/DL NONE TO MILD EUPHORIA 20-49 MG/DL MILD EUPHORIA 50-99 MG/DL MODERATE EUPHORIA 100-149 MG/DL INTOXICATION 150-300 MG/DL Name Value Range Interpretation Description Data Sup porting Code Source(s) Document(s ) Ethanol < 20 [place] [Mass/volume mg/dL Hospital ] in Serum or Plasma ID Date Data Source [id number] 01/08/2020 08:21:00 AM [facility] TEST RESULT IS A TOTAL [...] Code Source(s) Document(s ) TRICYCLIC < 80 [place] ANTIDEPRESSANT ng/mL Hospital ID Date Data Source [id number] 01/08/2020 08:21:00 AM [facility] REFERENCE RANGES: ANALGESIC: 0.0 - 10.0 MG/DL. ARTHRITIC THERAPY: 15.0 - 30.0 MG/DL. Name Value Range Interpretation Description Data Sup porting Code Source(s) Document(s ) Salicylates < 3.0 [place] [Mass/volume] mg/dL Hospital in Serum or Plasma ID Date Data Source [id number] 01/08/2020 08:21:00 AM [facility] THERAPEUTIC RANGE: 10.0-30.0 UG/MLTOXIC RANGE: 4 HRS AFTER INGESTION >150 UG/ML 12 HRS AFTER INGESTION >35 UG/ML Name Value Range Interpretation Description Data Sup porting Code Source(s) Document(s ) ACETAMINOPHEN < 10.0 [place] ug/mL Hospital ID Date Data Source [id number] 01/08/2020 08:21:00 AM [facility] REFERENCE RANGES: NONE DETECTED <20 MG/DL NONE TO MILD EUPHORIA 20-49 MG/DL MILD EUPHORIA 50-99 MG/DL MODERATE EUPHORIA 100-149 MG/DL INTOXICATION 150-300 MG/DL Name Value Range Interpretation Description Data Sup porting Code Source(s) Document(s ) Ethanol < 20 [place] [Mass/volume mg/dL [facility] ] in Serum or Plasma ID Date Data Source [id number] 01/08/2020 08:21:00 AM [facility] TEST RESULT IS A TOTAL [...] Code Source(s) Document(s ) TRICYCLIC < 80 [place] ANTIDEPRESSANT ng/mL Hospital ID Date Data Source [id number] 01/08/2020 08:21:00 AM [facility] REFERENCE RANGES: ANALGESIC: 0.0 - 10.0 MG/DL. ARTHRITIC THERAPY: 15.0 - 30.0 MG/DL. Name Value Range Interpretation Description Data Sup porting Code Source(s) Document(s ) Salicylates < 3.0 [place] [Mass/volume] mg/dL Hospital in Serum or Plasma ID Date Data Source [id number] 01/08/2020 08:21:00 AM [facility] THERAPEUTIC RANGE: 10.0-30.0 UG/MLTOXIC RANGE: 4 HRS AFTER INGESTION >150 UG/ML 12 HRS AFTER INGESTION >35 UG/ML Name Value Range Interpretation Description Data Sup porting Code Source(s) Document(s ) ACETAMINOPHEN < 10.0 [place] ug/mL Hospital ID Date Data Source [id number] 01/08/2020 08:21:00 AM [facility] THERAPEUTIC RANGES:UNFRACTIONATED HEPARI N THERAPY: 60-90 SECONDSARGATROBAN THERAPY: 49-99 SECONDS Name Value Range Interpretation Description Data Sup porting Code Source(s) Document(s ) aPTT in 28.1 s [place] Platelet poor [facility] plasma by Coagulation assay ID Date Data Source [id number] 01/08/2020 08:21:00 AM [facility] Name Value Range Interpretation Description Data Sup porting Code Source(s) Document(s ) Sodium 146 mmol/L [place] [[facility]] in Serum or Plasma ID Date Data Source [id number] 01/08/2020 08:21:00 AM [facility] Name Value Range Interpretation Description Data Sup porting Code Source(s) Document(s ) Glucose 189 mg/dL [place] [Mass/volume [facility] ] in Serum or Plasma ID Date Data Source [id number] 01/08/2020 08:21:00 AM [facility] THERAPEUTIC RANGES:UNFRACTIONATED HEPARI N THERAPY: 60-90 SECONDSARGATROBAN THERAPY: 49-99 SECONDS Name Value Range Interpretation Description Data Sup porting Code Source(s) Document(s ) aPTT in 28.1 s [place] Platelet poor Hospital plasma by Coagulation assay ID Date Data Source [id number] 01/08/2020 08:21:00 AM [facility] THERAPEUTIC RANGE FOR STANDARD ORALANTIC OAGULANT THERAPY: 2.0-3.0THERAPEUTIC RANGE FOR HIGH DOSE ORALANTICOAGULANT THERAPY (MECHANICAL HEARTVALVE REPLACEMENT): 2.5-3.5 Name Value Range Interpretation Description Data Sup porting Code Source(s) Document(s ) INR in Platelet 1.0 [place] poor plasma by Hospital Coagulation assay ID Date Data Source [id number] 01/[facility] Value Range Interpretation Description Data Sup porting Code Source(s) Document(s ) PT panel - 11.9 s [place] Platelet poor [facility] plasma by Coagulation assay ID Date Data Source [id number] 01/08/2020 08:21:00 AM [facility] Name Value Range Interpretation Code Description Data Supporting Source(s) Document(s ) NUCLEATED RBCS 0.0 % [place] (AUTO Hospital DIFF%)DIS ID Date Data Source [id number] 01/08/2020 08:21:00 AM [facility] Value Range Interpretation Description Data Sup porting Code Source(s) Document(s ) Differential AUTOMATED [place] cell count [facility] method - Blood ID Date Data Source [id number] 01/08/2020 08:21:00 AM [facility] Name Value Range Interpretation Description Data Sup porting Code Source(s) Document(s ) Immature 0.00 [place] granulocytes 10*3/uL [facility] [#/volume] in Blood by Automated count ID Date Data Source [id number] 01/08/2020 08:21:00 AM [facility] Value Range Interpretation Description Data Sup porting Code Source(s) Document(s ) Basophils 0.02 [place] [#/volume] in 10*3/uL Hospital Blood by Automated count ID Date Data Source [id number] 01/08/2020 08:21:00 AM EDT [facility] Value Range Interpretation Description Data Sup porting Code Source(s) Document(s ) Eosinophils 0.30 [place] [#/volume] in 10*3/uL Hospital Blood by Automated count ID Date Data Source [id number] 01/08/2020 08:21:00 AM EDT [facility] Value Range Interpretation Description Data Sup porting Code Source(s) Document(s ) Monocytes 0.46 [place] [#/volume] in 10*3/uL Hospital Blood by Automated count ID Date Data Source [id number] 01/08/2020 08:21:00 AM EDT [facility] Value Range Interpretation Description Data Sup porting Code Source(s) Document(s ) Lymphocytes 1.76 [place] [#/volume] in 10*3/uL Hospital Blood by Automated count ID Date Data Source [id number] 01/08/2020 08:21:00 AM T [facility] Value Range Interpretation Description Data Sup porting Code Source(s) Document(s ) Neutrophils 0.75 [place] [#/volume] in 10*3/uL Hospital Blood by Automated count ID Date Data Source [id number] 01/08/2020 08:21:00 AM [facility] Value Range Interpretation Description Data Sup porting Code Source(s) Document(s ) Nucleated 0.0 % [place] erythrocytes/10 Hospital 0 leukocytes [Ratio] in Blood by Automated count ID Date Data Source [id number] 01/08/2020 08:21:00 AM EDT [facility] Value Range Interpretation Description Data Sup porting Code Source(s) Document(s ) Immature 0.0 % [place] granulocytes/10 Hospital 0 leukocytes in Blood by Automated count ID Date Data Source [id number] 01/08/2020 08:21:00 AM EDT Health System Name Value Range Interpretation Description Data Sup porting Code Source(s) Document(s ) Basophils/100 0.6 % [place] leukocytes in Hospital Blood by Automated count ID Date Data Source [id number] 01/08/2020 08:21:00 AM EDT Health System Name Value Range Interpretation Description Data Sup porting Code Source(s) Document(s ) Eosinophils/100 9.1 % [place] leukocytes in Hospital Blood by Automated count ID Date Data Source [id number] 01/08/2020 08:21:00 AM EDT [facility] Value Range Interpretation Description Data Sup porting Code Source(s) Document(s ) Monocytes/100 14.0 % [place] leukocytes in Hospital Blood by Automated count ID Date Data Source [id number] 01/08/2020 08:21:00 AM EDT [facility] Value Range Interpretation Description Data Sup porting Code Source(s) Document(s ) Lymphocytes/10 53.5 % [place] 0 leukocytes Hospital in Blood by Automated count ID Date Data Source [id number] 01/08/2020 08:21:00 AM EDT Health System Name Value Range Interpretation Description Data Sup porting Code Source(s) Document(s ) Neutrophils/10 22.8 % [place] 0 leukocytes Hospital in Blood by Automated count ID Date Data Source [id number] 01/08/2020 08:21:00 AM EDT Health System Name Value Range Interpretation Description Data Sup porting Code Source(s) Document(s ) Platelet mean 12.1 fL [place] volume Hospital [Entitic volume] in Blood by Automated count ID Date Data Source [id number] 01/08/2020 08:21:00 AM [facility] Value Range Interpretation Description Data Sup porting Code Source(s) Document(s ) Platelets 174 [place] [#/volume] in 10*3/uL Hospital Blood by Automated count ID Date Data Source [id number] [facility]/08[facility] Interpret[facility] Description Data Sup porting Code Source(s) Document(s ) Erythrocyte 14.6 % [facility] Hospital width [Ratio] by Automated count ID Date Data Source [id number] 01/08/2020 08:21:00 AM [facility] Value Range Interpretation Description Data Sup porting Code Source(s) Document(s ) Erythrocyte mean 32.4 [place] corpuscular g/dL Hospital hemoglobin concentration [Mass/volume] by Automated count ID Date Data Source [id number] 01/08/2020 08:21:00 AM [facility] Value Range Interpretation Description Data Sup porting Code Source(s) Document(s ) Erythrocyte 30.1 pg [facility] corpuscular hemoglobin [Entitic mass] by Automated count ID Date Data Source [id number] 01/08/2020 08:21:00 AM [facility] Value Range Interpretation Description Data Sup porting Code Source(s) Document(s ) Erythrocyte 92.9 fL [facility] corpuscular volume [Entitic volume] by Automated count ID Date Data Source [id number] 01/08/2020 08:21:00 AM [facility] Value Range Interpretation Description Data Sup porting Code Source(s) Document(s ) Hematocrit 34.0 % [place] [Volume Hospital Fraction] of Blood by Automated count ID Date Data Source [id number] 01/08/2020 08:21:00 AM EDT [facility] Value Range Interpretation Description Data Sup porting Code Source(s) Document(s ) Hemoglobin 11.0 g/dL [place] [Mass/volume] Hospital in Blood ID Date Data Source [id number] 01/08/2020 08:21:00 AM EDT [facility] Value Range Interpretation Description Data Sup porting Code Source(s) Document(s ) Erythrocytes 3.66 [place] [#/volume] in 10*6/uL Hospital Blood by Automated count ID Date Data Source [id number] 01/08/2020 08:21:00 AM EDT [facility] Value Range Interpretation Description Data Sup porting Code Source(s) Document(s ) Leukocytes 3.3 [place] [#/volume] in 10*3/uL Hospital Blood by Automated count ID Date Data Source [id number] 01/08/2020 08:20:00 AM EDT [facility] Value Range Interpretation Code Description Data Bryanna rce(s) Supporting Document(s ) READ BACK Yes/ Health System ID Date Data Source [id number] 01/08/2020 08:20:00 AM EDT [facility] Value Range Interpretation Code Description Data Bryanna rce(s) Supporting Document(s ) NOTE [facility] ID Date Data Source [id number] 01/08/2020 08:20:00 AM EDT [facility] Value Range Interpretation Description Data Sup porting Code Source(s) Document(s ) IONIZED 1.25 [place] CALCIUM mmol/L Hospital ID Date Data Source [id number] 01/08/2020 08:20:00 AM EDT [place] [place] [facility] Name Value Range Interpretation Code Description Data Supporting Source(s) Document(s ) METHEMOGLOBIN 0.6 % Health System ID Date Data Source [id number] 01/08/2020 08:20:00 AM EDT [facility] Value Range Interpretation Description Data Sup porting Code Source(s) Document(s ) CARBOXYHEMOGLOBIN 0.8 % Health System ID Date Data Source [id number] 01/08/2020 08:20:00 AM EDT [facility] Value Range Interpretation Code Description Data Bryanna rce(s) Supporting Document(s ) ABG TEMP 98.0 [facility] System ID Date Data Source [id number] 01/08/2020 08:20:00 AM EDT [facility] Value Range Interpretation Code Description Data Bryanna rce(s) Supporting Document(s ) FIO2 21 % [facility] System ID Date Data Source [id number] 01/08/2020 08:20:00 AM EDT [facility] Value Range Interpretation Code Description Data Bryanna rce(s) Supporting Document(s ) ABG BE 0.6 mmol/L Health System ID Date Data Source [id number] 01/08/2020 08:20:00 AM EDT [facility] Value Range Interpretation Code Description Data Bryanna rce(s) Supporting Document(s ) ABG O2SAT 92 % [facility] System ID Date Data Source [id number] 01/08/2020 08:20:00 AM EDT [facility] Value Range Interpretation Code Description Data Bryanna rce(s) Supporting Document(s ) ABG HCO3 25 mmol/L [facility] System ID Date Data Source [id number] 01/08/2020 08:20:00 AM EDT [facility] Name Value Range Interpretation Code Description Data Bryanna rce(s) Supporting Document(s ) ABG PO2 64 mm[Hg] [facility] System ID Date Data Source [id number] 01/08/2020 08:20:00 AM EDT [facility] Value Range Interpretation Code Description Data Bryanna rce(s) Supporting Document(s ) ABG PCO2 39 mm[Hg] [facility] System ID Date Data Source [id number] 01/08/2020 08:20:00 AM EDT [facility] Value Range Interpretation Code Description Data Bryanna rce(s) Supporting Document(s ) ABG PH 7.42 [facility] System ID Date Data Source [id number] 01/08/2020 08:20:00 AM EDT [facility] Value Range Interpretation Code Description Data Bryanna rce(s) Supporting Document(s ) JORGE TEST POSITIVE Health System ID Date Data Source [id number] 01/08/2020 08:20:00 AM EDT [facility] Value Range Interpretation Code Description Data Bryanna rce(s) Supporting Document(s ) READ BACK Yes/ Health System ID Date Data Source [id number] 01/08/2020 08:20:00 AM EDT [facility] Value Range Interpretation Code Description Data Bryanna rce(s) Supporting Document(s ) NOTE [facility] ID Date Data Source [id number] 01/08/2020 08:20:00 AM EDT [facility] Value Range Interpretation Description Data Sup porting Code Source(s) Document(s ) IONIZED 1.25 [place] CALCIUM mmol/L Hospital ID Date Data Source [id number] 01/08/2020 08:20:00 AM EDT [facility] Value Range Interpretation Code Description Data Supporting Source(s) Document(s ) METHEMOGLOBIN 0.6 % [facility] System ID Date Data Source [id number] 01/08/2020 08:20:00 AM EDT [facility] Value Range Interpretation Description Data Sup porting Code Source(s) Document(s ) CARBOXYHEMOGLOBIN 0.8 % Health System ID Date Data Source [id number] 01/08/2020 08:20:00 AM EDT [facility] Value Range Interpretation Code Description Data Bryanna rce(s) Supporting Document(s ) ABG TEMP 98.0 [facility] System ID Date Data Source [id number] 01/08/2020 08:20:00 AM EDT [facility] Value Range Interpretation Code Description Data Bryanna rce(s) Supporting Document(s ) FIO2 21 % [facility] System ID Date Data Source [id number] 01/08/2020 08:20:00 AM EDT [facility] Value Range Interpretation Code Description Data Bryanna rce(s) Supporting Document(s ) ABG BE 0.6 mmol/L [facility] System ID Date Data Source [id number] 01/08/2020 08:20:00 AM EDT [facility] Value Range Interpretation Code Description Data Bryanna rce(s) Supporting Document(s ) ABG O2SAT 92 % [facility] System ID Date Data Source [id number] 01/08/2020 08:20:00 AM EDT [facility] Value Range Interpretation Code Description Data Bryanna rce(s) Supporting Document(s ) ABG HCO3 25 mmol/L [facility] ID Date Data Source [id number] 01/08/2020 08:20:00 AM EDT [facility] Value Range Interpretation Code Description Data Bryanna rce(s) Supporting Document(s ) ABG PO2 64 mm[Hg] [facility] System ID Date Data Source [id number] 01/08/2020 08:20:00 AM EDT [facility] System Name Value Range Interpretation Code Description Data Bryanna rce(s) Supporting Document(s ) ABG PCO2 39 mm[Hg] [place] [facility] ID Date Data Source [id number] 01/08/2020 08:20:00 AM EDT [facility] Name Value Range Interpretation Code Description Data Bryanna rce(s) Supporting Document(s ) ABG PH 7.42 [facility] System ID Date Data Source [id number] 01/08/2020 08:20:00 AM EDT [facility] System Name Value Range Interpretation Code Description Data Bryanna rce(s) Supporting Document(s ) JORGE TEST POSITIVE [facility] ID Date Data Source [id number] 01/08/2020 08:04:00 AM EDT [facility] Name Value Range Interpretation Description Data Sup porting Code Source(s) Document(s ) [employer] [facility] Identification [facility] [place] (BED BUG) [facility] ID Date Data Source [id number] 01/08/2020 08:04:00 AM EDT [facility] Name Value Range Interpretation Description Data Sup porting Code Source(s) Document(s ) [employer] White Identification [facility]ULAR[facility] [place] (BED BUG) Hospital ID Date Data Source [id number] 01/08/2020 08:04:00 AM EDT [facility] Name Value Range Interpretation Description Data Sup porting Code Source(s) Document(s ) [employer] White Identification [facility] [place] (BED BUG) Hospital ID Date Data Source [id number] 01/08/2020 07:47:00 AM EDT [facility] Name Value Range Interpretation Description Data Sup porting Code Source(s) Document(s ) Bacteria No growth [place] identified in Hospital Blood by Culture ID Date Data Source [id number] 01/08/2020 07:47:00 AM EDT [facility] System Name Value Range Interpretation Description Data Sup porting Code Source(s) Document(s ) Bacteria No growth [place] identified in Hospital Blood by Culture ID Date Data Source [id number] 01/08/2020 07:20:00 AM EDT [facility] System Name Value Range Interpretation Description Data Sup porting Code Source(s) Document(s ) GLUCOSE RN Notified [facility] ID Date Data Source [id number] 01/08/2020 07:20:00 AM EDT [facility] Value Range Interpretation Description Data Sup porting Code Source(s) Document(s ) GLUCOSE RN Notified [facility] Hospital ID Date Data Source [id number] 2020 07:11:00 PM EDT [facility] System Name Value Range Interpretation Description Data Sup porting Code Source(s) Document(s ) Calcium 8.6 mg/dL [place] [Mass/volume Hospital ] in Serum or Plasma ID Date Data Source [id number] 2020 07:11:00 PM EDT [facility] Name Value Range Interpretation Code Description Data Bryanna rce(s) Supporting Document(s ) Urea 10.0 [place] nitrogen/Cre Hospital atinine [Mass Ratio] in Serum or Plasma ID Date Data Source [id number] [facility] Interpret[facility] Description Data Sup porting Code Source(s) Document(s ) Creatinine 0.9 mg/dL [place] [Mass/volume] Hospital in Serum or Plasma ID Date Data Source [id number] 2020 07:11:00 PM EDT [facility] Name Value Range Interpretation Description Data Sup porting Code Source(s) Document(s ) Urea nitrogen 9 mg/dL [place] [Mass/volume] Hospital in Serum or Plasma ID Date Data Source [id number] 2020 07:11:00 PM EDT [facility] Value Range Interpretation Code Description Data Bryanna rce(s) Supporting Document(s ) Anion gap in 18 [place] Serum or [facility] Plasma ID Date Data Source [id number] 2020 07:11:00 PM EDT [facility] Value Range Interpretation Description Data Sup porting Code Source(s) Document(s ) Carbon 23 mmol/L [place] dioxide, Hospital total [Moles/volu me] in Serum or Plasma ID Date Data Source [id number] 2020 07:11:00 PM EDT [facility] System Name Value Range Interpretation Description Data Sup porting Code Source(s) Document(s ) Chloride 100 [place] [Moles/volum mmol/L Hospital e] in Serum or Plasma ID Date Data Source [id number] 2020 07:11:00 PM EDT [facility] Value Range Interpretation Description Data Sup porting Code Source(s) Document(s ) Potassium 3.8 [place] [Moles/volume mmol/L Hospital ] in Serum or Plasma ID Date Data Source [id number] 2020 07:11:00 PM EDT [facility] System Name Value Range Interpretation Description Data Sup porting Code Source(s) Document(s ) Sodium 137 mmol/L [place] [Moles/volu Hospital me] in Serum or Plasma ID Date Data Source [id number] [facility] Interpretation Description Data Sup porting Code Source(s) Document(s ) Glucose 394 mg/dL [place] [Mass/volume Hospital ] in Serum or Plasma ID Date Data Source [id number] 2020 05:39:00 PM [facility] Manager Energy:YOLANDE DA SILVA Name Value Range Interpretation Description Data Sup porting Code Source(s) Document(s ) Glucose 491 mg/dL [place] [Mass/volume] Hospital in Capillary blood by Glucometer ID Date Data Source [id number] [facility] Description Data Sup porting Code Source(s) Document(s ) Leukocyte NEGATIVE [place] esterase Hospital [Presence] in Urine by Test strip ID Date Data Source [id number] 2020 04:11:00 PM [facility] Name Value Range Interpretation Description Data Sup porting Code Source(s) Document(s ) URINE NEGATIVE [facility] ID Date Data Source [id number] 2020 04:11:00 PM [facility] Value Range Interpretation Description Data Sup porting Code Source(s) Document(s ) Erythrocytes NEGATIVE [place] [#/volume] in Hospital Urine by Test strip ID Date Data Source [id number] 2020 04:11:00 PM [facility] Name Value Range Interpretation Code Description Data Bryanna rce(s) Supporting Document(s ) Bilirubin. NEGATIVE [place] total Hospital [Presence] in Urine by Test strip ID Date Data Source [id number] [facility] Description Data Sup porting Code Source(s) Document(s ) Urobilinogen 0.2 [place] [Units/volume] mg/dL Hospital in Urine by Test strip ID Date Data Source [id number] 2020 04:11:00 PM EDT [facility] Name Value Range Interpretation Code Description Data Bryanna rce(s) Supporting Document(s ) Ketones 1+ [place] [Mass/volume Hospital ] in Urine by Test strip ID Date Data Source [id number] 2020 04:11:00 PM EDT [facility] Name Value Range Interpretation Code Description Data Bryanna rce(s) Supporting Document(s ) Glucose 3+ [place] [Mass/volume Hospital ] in Urine by Test strip ID Date Data Source [id number] 2020 04:11:00 PM EDT [facility] Value Range Interpretation Description Data Sup porting Code Source(s) Document(s ) Protein NEGATIVE [place] [Presence] Hospital in Urine by Test strip ID Date Data Source [id number] 2020 04:11:00 PM EDT [facility] Name Value Range Interpretation Code Description Data Bryanna rce(s) Supporting Document(s ) pH of Urine 5.5 [place] by Test Hospital strip ID Date Data Source [id number] 2020 04:11:00 PM EDT [facility] System Name Value Range Interpretation Code Description Data Supporting Source(s) Document(s ) Specific 1.043 [place] gravity of Hospital Urine by Test strip ID Date Data Source [id number] 2020 04:11:00 PM EDT [facility] Name Value Range Interpretation Description Data Sup porting Code Source(s) Document(s ) Clarity in Urine CLEAR [place] by Refract[facility] Hospital automated ID Date Data Source [id number] 2020 04:11:00 PM EDT [facility] Name Value Range Interpretation Code Description Data Bryanna rce(s) Supporting Document(s ) Color of YELLOW [place] Urine Hospital ID Date Data Source [id number] 2020 03:51:00 PM EDT [facility] Name Value Range Interpretation Code Description Data Supporting Source(s) Document(s ) NUCLEATED RBCS 0.0 % [place] (AUTO Hospital DIFF%)DIS ID Date Data Source [id number] 2020 03:51:00 PM EDT [facility] Name Value Range Interpretation Description Data Sup porting Code Source(s) Document(s ) Differential AUTOMATED [place] cell count [facility] method - Blood ID Date Data Source [id number] 2020 03:51:00 PM EDT [facility] Value Range Interpretation Description Data Sup porting Code Source(s) Document(s ) Immature 0.00 [place] granulocytes 10*3/uL Hospital [#/volume] in Blood by Automated count ID Date Data Source [id number] 2020 03:51:00 PM EDT [facility] Value Range Interpretation Description Data Sup porting Code Source(s) Document(s ) Basophils 0.02 [place] [#/volume] in 10*3/uL Hospital Blood by Automated count ID Date Data Source [id number] 2020 03:51:00 PM EDT Health System Name Value Range Interpretation Description Data Sup porting Code Source(s) Document(s ) Eosinophils 0.04 [place] [#/volume] in 10*3/uL Hospital Blood by Automated count ID Date Data Source [id number] 2020 03:51:00 PM EDT Health System Name Value Range Interpretation Description Data Sup porting Code Source(s) Document(s ) Monocytes 0.28 [place] [#/volume] in 10*3/uL Hospital Blood by Automated count ID Date Data Source [id number] 2020 03:51:00 PM EDT Health System Name Value Range Interpretation Description Data Sup porting Code Source(s) Document(s ) Lymphocytes 1.26 [place] [#/volume] in 10*3/uL Hospital Blood by Automated count ID Date Data Source [id number] 2020 03:51:00 PM EDT [facility] Value Range Interpretation Description Data Sup porting Code Source(s) Document(s ) Neutrophils 1.42 [place] [#/volume] in 10*3/uL Hospital Blood by Automated count ID Date Data Source [id number] 2020 03:51:00 PM EDT [facility] Value Range Interpretation Description Data Sup porting Code Source(s) Document(s ) Nucleated 0.0 % [place] erythrocytes/10 Hospital 0 leukocytes [Ratio] in Blood by Automated count ID Date Data Source [id number] 2020 03:51:00 PM EDT [facility] Value Range Interpretation Description Data Sup porting Code Source(s) Document(s ) Immature 0.0 % [place] granulocytes/10 Hospital 0 leukocytes in Blood by Automated count ID Date Data Source [id number] 2020 03:51:00 PM EDT [facility] Value Range Interpretation Description Data Sup porting Code Source(s) Document(s ) Basophils/100 0.7 % [place] leukocytes in Hospital Blood by Automated count ID Date Data Source [id number] 2020 03:51:00 PM EDT [facility] Value Range Interpretation Description Data Sup porting Code Source(s) Document(s ) Eosinophils/100 1.3 % [place] leukocytes in Hospital Blood by Automated count ID Date Data Source [id number] 2020 03:51:00 PM EDT Health System Name Value Range Interpretation Description Data Sup porting Code Source(s) Document(s ) Monocytes/100 9.3 % [place] leukocytes in Hospital Blood by Automated count ID Date Data Source [id number] 2020 03:51:00 PM EDT Health System Name Value Range Interpretation Description Data Sup porting Code Source(s) Document(s ) Lymphocytes/10 41.7 % [place] 0 leukocytes Hospital in Blood by Automated count ID Date Data Source [id number] 2020 03:51:00 PM EDT [facility] Value Range Interpretation Description Data Sup porting Code Source(s) Document(s ) Neutrophils/10 47.0 % [place] 0 leukocytes Hospital in Blood by Automated count ID Date Data Source [id number] 2020 03:51:00 PM EDT Health System Name Value Range Interpretation Description Data Sup porting Code Source(s) Document(s ) Platelet mean 12.9 fL [place] volume Hospital [Entitic volume] in Blood by Automated count ID Date Data Source [id number] 2020 03:51:00 PM EDT Health System Name Value Range Interpretation Description Data Sup porting Code Source(s) Document(s ) Platelets 154 [place] [#/volume] in 10*3/uL Hospital Blood by Automated count ID Date Data Source [id number] 2020 03:51:00 PM EDT [facility] Value Range Interpretation Description Data Sup porting Code Source(s) Document(s ) Erythrocyte 14.2 % [place] distribution Hospital width [Ratio] by Automated count ID Date Data Source [id number] 2020 03:51:00 PM [facility] Name Value Range Interpretation Description Data Sup porting Code Source(s) Document(s ) Erythrocyte mean 35.0 [place] corpuscular g/dL Hospital hemoglobin concentration [Mass/volume] by Automated count ID Date Data Source [id number] 2020 03:51:00 PM [facility] Name Value Range Interpretation Description Data Sup porting Code Source(s) Document(s ) Erythrocyte 30.3 pg [facility] corpuscular hemoglobin [Entitic mass] by Automated count ID Date Data Source [id number] 2020 03:51:00 PM [facility] THIS TEST RESULT HAS BEEN CONFIRMED BY R EPEAT ANALYSIS. Name Value Range Interpretation Description Data Sup porting Code Source(s) Document(s ) Erythrocyte 86.6 fL [facility] corpuscular volume [Entitic volume] by Automated count ID Date Data Source [id number] 2020 03:51:00 PM [facility] Value Range Interpretation Description Data Sup porting Code Source(s) Document(s ) Hematocrit 32.3 % [place] [Volume Hospital Fraction] of Blood by Automated count ID Date Data Source [id number] 2020 03:51:00 PM [facility] Name Value Range Interpretation Description Data Sup porting Code Source(s) Document(s ) Hemoglobin 11.3 g/dL [place] [Mass/volume] Hospital in Blood ID Date Data Source [id number] 2020 03:51:00 PM [facility] Name Value Range Interpretation Description Data Sup porting Code Source(s) Document(s ) Erythrocytes 3.73 [place] [#/volume] in 10*6/uL Hospital Blood by Automated count ID Date Data Source [id number] 2020 03:51:00 PM EDT Health System Name Value Range Interpretation Description Data Sup porting Code Source(s) Document(s ) Leukocytes 3.0 [place] [#/volume] in 10*3/uL Hospital Blood by Automated count ID Date Data Source [id number] 12/29/2019 [facility] by:[facility] [id number] [place], [place] [address]Odn Directo r: Mukesh Rudolph M.D. Ph.D.; CLIA# [id number] Name Value Range Interpretation Code Description Data Bryanna rce(s) Supporting Document(s ) ALPHA-1-A 107 mg/dL [facility] N ID Date Data Source [id number] 12/29/2019 03:18:00 PM [facility] HCV RNA QUANTITATION BY OZZIE DIANE Ampl iPrep/DIANE TaqMan HCV TEST v2.0. Name Value Range Interpretation Description Data Sup porting Code Source(s) Document(s ) Hepatitis C 0.00 [place] virus RNA [log {copies} Hospital units/volume] /mL (viral load) in Serum or Plasma by Probe and target amplification method ID Date Data Source [id number] 12/29/2019 03:18:00 PM [facility] NO VIRUS DETECTED. Name Value Range Interpretation Description Data Sup porting Code Source(s) Document(s ) Hepatitis C 0 [place] virus RNA [IU]/mL Hospital [Units/volume] (viral load) in Serum or Plasma by Probe and target amplification method ID Date Data Source [id number] 12/29/2019 [facility] Value Range Interpretation Description Data Sup porting Code Source(s) Document(s ) Hepatitis B NON-REACT [place] virus core Ab [facility] [Presence] in Serum ID Date Data Source [id number] 12/29/2019 03:18:00 PM EDT Health System Name Value Range Interpretation Description Data Sup porting Code Source(s) Document(s ) Hepatitis A NON-REACT [place] virus IgM Ab [facility] [Presence] in Serum ID Date Data Source [id number] 12/29/2019 03:18:00 PM EDT [facility] [place] [facility] Name Value Range Interpretation Description Data Sup porting Code Source(s) Document(s ) Hepatitis A REACTIVE [place] virus Ab Hospital [Presence] in Serum ID Date Data Source [id number] 12/29/2019 03:18:00 PM EDT Health System Name Value Range Interpretation Description Data Sup porting Code Source(s) Document(s ) Hepatitis B NON-REACT [place] virus surface [facility] Ab [Presence] in Serum ID Date Data Source [id number] 12/29/2019 03:18:00 PM EDT [facility] [place] [facility] Name Value Range Interpretation Description Data Sup porting Code Source(s) Document(s ) Hepatitis B NON-REACT [place] virus surface [facility] Ag [Presence] in Serum ID Date Data Source [id number] 12/29/2019 03:18:00 PM EDT [facility] Name Value Range Interpretation Description Data Sup porting Code Source(s) Document(s ) Ferritin 67.0 [place] [Mass/volume ng/mL Hospital ] in Serum or Plasma ID Date Data Source [id number] 12/29/2019 03:18:00 PM EDT [facility] Name Value Range Interpretation Description Data Sup porting Code Source(s) Document(s ) Iron saturation 12 % [place] [Mass Fraction] Hospital in Serum or Plasma ID Date Data Source [id number] 12/[facility] Value Range Interpretation Description Data Sup porting Code Source(s) Document(s ) UNSAT IRON 309 ug/dL [facility] CAPACITY ID Date Data Source [id number] 12/29/2019 [facility] Name Value Range Interpretation Description Data Sup porting Code Source(s) Document(s ) Iron binding 355 ug/dL [facility] [Mass/volume ] in Serum or Plasma ID Date Data Source [id number] 12/29/2019 03:18:00 PM [facility] Name Value Range Interpretation Code Description Data Supporting Source(s) Document(s ) Iron 46 ug/dL [place] [Mass/volum Hospital e] in Serum or Plasma ID Date Data Source [id number] 12/29/2019 03:18:00 PM [facility] NOTE: NEW METHODOLOGY ,EFFECTIVE 8.TEST PERFORMED BY [employer] CHEMILUMINESCENCE LOCI TECHNOLOGY.REFERE NCE RANGE APPLIES TO MALES AND NON- FEMALES ONLY.AFP TUMOR MARKER IS NOT TO BE USED A DIAGNOSTIC TOOL WITHOUT CLINICAL EVALUATION. THE ASSAY SHOULD NOT BE USED A SCREENING TEST FOR MALIGNANCY. VALUES OBTAINED WIT H DIFFERENT ASSAY METHODS OR COREMAKING SUPERVISOR KITS CANNOT BE USED INTERCHANGEABLY.RESU LTS CANNOT BE INTERPRETED A TUMOR MARKER IN FEMALES. Name Value Range Interpretation Description Data Sup porting Code Source(s) Document(s ) Alpha-1-fet 36.6 ng/mL [place] oprotein.[facility] mor marker [Mass/volum e] in Serum or Plasma ID Date Data Source [id number] 12/29/2019 03:18:00 PM [facility] Name Value Range Interpretation Description Data Sup porting Code Source(s) Document(s ) Bilirubin.d 0.3 mg/dL [facility] Hospital [Mass/volum e] in Serum or Plasma ID Date Data Source [id number] 12/29/2019 03:18:00 PM EDT [facility] System Test Performed by:[facility] [place], [place] [address]Zcq Directo r: Mukesh Rudolph M.D. Ph.D.; CLIA# [id number] Name Value Range Interpretation Code Description Data Bryanna rce(s) Supporting Document(s ) ALPHA-1-A 107 mg/dL [place] [facility] Date Data Source [id number] 12/29/2019 03:18:00 PM EDT Health System HCV RNA QUANTITATION BY OZZIE DIANE Ampl iPrep/DIANE TaqMan HCV TEST v2.0. Name Value Range Interpretation Description Data Sup porting Code Source(s) Document(s ) Hepatitis C 0.00 [place] virus RNA [log {copies} Hospital units/volume] /mL (viral load) in Serum or Plasma by Probe and target amplification method ID Date Data Source [id number] 12/29/2019 03:18:00 PM EDT Health System NO VIRUS DETECTED. Name Value Range Interpretation Description Data Sup porting Code Source(s) Document(s ) Hepatitis C 0 [place] virus RNA [IU]/mL Hospital [Units/volume] (viral load) in Serum or Plasma by Probe and target amplification method ID Date Data Source [id number] 12/29/2019 03:18:00 PM EDT Health System Name Value Range Interpretation Description Data Sup porting Code Source(s) Document(s ) Hepatitis B NON-REACT [place] virus core Ab [facility] [Presence] in Serum ID Date Data Source [id number] 12/29/2019 [facility] Name Value Range Interpretation Description Data Sup porting Code Source(s) Document(s ) Hepatitis A NON-REACT [place] virus IgM Ab [facility] [Presence] in Serum ID Date Data Source [id number] 12/29/2019 03:18:00 PM EDT [facility] Name Value Range Interpretation Description Data Sup porting Code Source(s) Document(s ) Hepatitis A REACTIVE [place] virus Ab Hospital [Presence] in Serum ID Date Data Source [id number] 12/29/2019 03:18:00 PM EDT [facility] Name Value Range Interpretation Description Data Sup porting Code Source(s) Document(s ) Hepatitis B NON-REACT [place] virus surface [facility] Ab [Presence] in Serum ID Date Data Source [id number] 12/29/2019 03:18:00 PM EDT [facility] Name Value Range Interpretation Description Data Sup porting Code Source(s) Document(s ) Hepatitis B NON-REACT [place] virus surface [facility] Ag [Presence] in Serum ID Date Data Source [id number] 12/29/2019 03:18:00 PM EDT Health System Name Value Range Interpretation Description Data Sup porting Code Source(s) Document(s ) Ferritin 67.0 [place] [Mass/volume ng/mL Hospital ] in Serum or Plasma ID Date Data Source [id number] 12/29/2019 03:18:00 PM EDT [facility] Name Value Range Interpretation Description Data Sup porting Code Source(s) Document(s ) Iron saturation 12 % [place] [Mass Fraction] Hospital in Serum or Plasma ID Date Data Source [id number] 12/29/2019 03:18:00 PM EDT [facility] System Name Value Range Interpretation Description Data Sup porting Code Source(s) Document(s ) UNSAT IRON 309 ug/dL [place] [facility] CAPACITY ID Date Data Source [id number] 12/29/2019 [facility] Name Value Range Interpretation Description Data Sup porting Code Source(s) Document(s ) Iron binding 355 ug/dL [place] capacity [facility] [Mass/volume ] in Serum or Plasma ID Date Data Source [id number] 12/29/2019 03:18:00 PM [facility] Name Value Range Interpretation Code Description Data Supporting Source(s) Document(s ) Iron 46 ug/dL [place] [Mass/volum Hospital e] in Serum or Plasma ID Date Data Source [id number] 12/29/2019 03:18:00 PM [facility] NOTE: NEW METHODOLOGY ,EFFECTIVE 8.TEST PERFORMED BY [employer] CHEMILUMINESCENCE LOCI TECHNOLOGY.REFERE NCE RANGE APPLIES TO MALES AND NON- FEMALES ONLY.AFP TUMOR MARKER IS NOT TO BE USED A DIAGNOSTIC TOOL WITHOUT CLINICAL EVALUATION. THE ASSAY SHOULD NOT BE USED A SCREENING TEST FOR MALIGNANCY. VALUES OBTAINED WIT H DIFFERENT ASSAY METHODS OR COREMAKING SUPERVISOR KITS CANNOT BE USED INTERCHANGEABLY.RESU LTS CANNOT BE INTERPRETED A TUMOR MARKER IN FEMALES. Name Value Range Interpretation Description Data Sup porting Code Source(s) Document(s ) Alpha-1-fet 36.6 ng/mL [place] oprotein.[facility] mor marker [Mass/volum e] in Serum or Plasma ID Date Data Source [id number] 12/29/2019 03:18:00 PM [facility] Name Value Range Interpretation Description Data Sup porting Code Source(s) Document(s ) Magnesium 2.0 mg/dL [place] [Mass/volume] Hospital in Serum or Plasma ID Date Data Source [id number] 12/29/2019 03:18:00 PM [facility] Name Value Range Interpretation Description Data Sup porting Code Source(s) Document(s ) Aspartate 39 U/L White aminotransferase [place] [Enzymatic Hospital activity/volume] in Serum or Plasma ID Date Data Source [id number] 12/29/2019 03:18:00 PM EDT Health System Name Value Range Interpretation Description Data Sup porting Code Source(s) Document(s ) Alanine 29 U/L [facility] [Enzymatic Hospital activity/volume] in Serum or Plasma ID Date Data Source [id number] 12/29/2019 03:18:00 PM EDT [facility] System Name Value Range Interpretation Description Data Sup porting Code Source(s) Document(s ) Alkaline 110 U/L [place] phosphatase Hospital [Enzymatic activity/volume ] in Serum or Plasma ID Date Data Source [id number] 12/29/2019 03:18:00 PM EDT [facility] System Name Value Range Interpretation Description Data Sup porting Code Source(s) Document(s ) Bilirubin.d 0.3 mg/dL [facility] Hospital [Mass/volum e] in Serum or Plasma ID Date Data Source [id number] 12/29/2019 03:18:00 PM EDT Health System Name Value Range Interpretation Description Data Sup porting Code Source(s) Document(s ) Bilirubin.t 0.8 mg/dL [facility] Hospital [Mass/volum e] in Serum or Plasma ID Date Data Source [id number] 12/29/2019 03:18:00 PM EDT Health System Name Value Range Interpretation Code Description Data Bryanna rce(s) Supporting Document(s ) Albumin/Glob 1.1 [place] ulin [Mass Hospital Ratio] in Serum or Plasma ID Date Data Source [id number] 12/29/2019 [facility] Name Value Range Interpretation Description Data Sup porting Code Source(s) Document(s ) Albumin 3.8 g/dL [place] [Mass/volume Hospital ] in Serum or Plasma ID Date Data Source [id number] 12/29/2019 [facility] Name Value Range Interpretation Description Data Sup porting Code Source(s) Document(s ) Protein 7.3 g/dL [place] [Mass/volume Hospital ] in Serum or Plasma ID Date Data Source [id number] 12/29/2019 [facility]:18[facility] THERAPEUTIC RANGE FOR STANDARD ORALANTIC OAGULANT THERAPY: 2.0-3.0THERAPEUTIC RANGE FOR HIGH DOSE ORALANTICOAGULANT THERAPY (MECHANICAL HEARTVALVE REPLACEMENT): 2.5-3.5 Name Value Range Interpretation Description Data Sup porting Code Source(s) Document(s ) INR in Platelet 1.0 [place] poor plasma by Hospital Coagulation assay ID Date Data Source [id number] 12/29/2019 03:18:00 PM [facility] Name Value Range Interpretation Description Data Sup porting Code Source(s) Document(s ) PT panel - 11.4 s [place] Platelet poor [facility] plasma by Coagulation assay ID Date Data Source [id number] 12/29/2019 03:18:00 PM [facility] Test Performed by:[facility] [address] [id number] Direct r: Mukesh Rudolph M.D. Ph.D.; CLIA# [id number] Name Value Range Interpretation Code Description Data Bryanna rce(s) Supporting Document(s ) ALPHA-1-A 107 mg/dL [place] [facility] Date Data Source [id number] 12/29/2019 03:18:00 PM [facility] HCV RNA QUANTITATION BY OZZIE DIANE Ampl iPrep/DIANE TaqMan HCV TEST v2.0. Name Value Range Interpretation Description Data Sup porting Code Source(s) Document(s ) Hepatitis C 0.00 [place] virus RNA [log {copies} Hospital units/volume] /mL (viral load) in Serum or Plasma by Probe and target amplification method ID Date Data Source [id number] 12/29/2019 03:18:00 PM [facility] NO VIRUS DETECTED. Name Value Range Interpretation Description Data Sup porting Code Source(s) Document(s ) Hepatitis C 0 [place] virus RNA [IU]/mL Hospital [Units/volume] (viral load) in Serum or Plasma by Probe and target amplification method ID Date Data Source [id number] 12/29/2019 03:18:00 PM EDT Health System Name Value Range Interpretation Description Data Sup porting Code Source(s) Document(s ) Hepatitis B NON-REACT [place] virus core Ab [facility] [Presence] in Serum ID Date Data Source [id number] 12/29/2019 03:18:00 PM EDT [facility] System Name Value Range Interpretation Description Data Sup porting Code Source(s) Document(s ) Hepatitis A NON-REACT [place] virus IgM Ab [facility] [Presence] in Serum ID Date Data Source [id number] 12/29/2019 [facility] Name Value Range Interpretation Description Data Sup porting Code Source(s) Document(s ) Hepatitis A REACTIVE [place] virus Ab Hospital [Presence] in Serum ID Date Data Source [id number] 12/29/2019 03:18:00 PM EDT [facility] System Name Value Range Interpretation Description Data Sup porting Code Source(s) Document(s ) Hepatitis B NON-REACT [place] virus surface [facility] Ab [Presence] in Serum ID Date Data Source [id number] 12/29/2019 03:18:00 PM EDT [facility] Name Value Range Interpretation Description Data Sup porting Code Source(s) Document(s ) Hepatitis B NON-REACT [place] virus surface [facility] Ag [Presence] in Serum ID Date Data Source [id number] 12/29/2019 03:18:00 PM EDT [facility] Name Value Range Interpretation Description Data Sup porting Code Source(s) Document(s ) Ferritin 67.0 [place] [Mass/volume ng/mL Hospital ] in Serum or Plasma ID Date Data Source [id number] 12/29/2019 03:18:00 PM EDT [facility] System Name Value Range Interpretation Description Data Sup porting Code Source(s) Document(s ) Iron saturation 12 % [place] [Mass Fraction] Hospital in Serum or Plasma ID Date Data Source [id number] 12/29/2019 03:18:00 PM EDT [facility] Name Value Range Interpretation Description Data Sup porting Code Source(s) Document(s ) UNSAT IRON 309 ug/dL [place] [facility] CAPACITY ID Date Data Source [id number] 12/29/2019 03:18:00 PM EDT [facility] System Name Value Range Interpretation Description Data Sup porting Code Source(s) Document(s ) Iron binding 355 ug/dL [place] capacity Hospital [Mass/volume ] in Serum or Plasma ID Date Data Source [id number] 12/29/2019 03:18:00 PM EDT [facility] Name Value Range Interpretation Code Description Data Supporting Source(s) Document(s ) Iron 46 ug/dL [place] [Mass/volum Hospital e] in Serum or Plasma ID Date Data Source [id number] 12/29/2019 [facility] NOTE: NEW METHODOLOGY ,EFFECTIVE 8.TEST PERFORMED BY [employer] CHEMILUMINESCENCE LOCI TECHNOLOGY.REFERE NCE RANGE APPLIES TO MALES AND NON- FEMALES ONLY.AFP TUMOR MARKER IS NOT TO BE USED A DIAGNOSTIC TOOL WITHOUT CLINICAL EVALUATION. THE ASSAY SHOULD NOT BE USED A SCREENING TEST FOR MALIGNANCY. VALUES OBTAINED WIT H DIFFERENT ASSAY METHODS OR COREMAKING SUPERVISOR KITS CANNOT BE USED INTERCHANGEABLY.RESU LTS CANNOT BE INTERPRETED A TUMOR MARKER IN FEMALES. Name Value Range Interpretation Description Data Sup porting Code Source(s) Document(s ) Alpha-1-fet 36.6 ng/mL [place] oprotein.[facility] mor marker [Mass/volum e] in Serum or Plasma ID Date Data Source [id number] 12/29/2019 03:18:00 PM EDT Health System Name Value Range Interpretation Description Data Sup porting Code Source(s) Document(s ) Bilirubin.d 0.3 mg/dL [place] irect Hospital [Mass/volum e] in Serum or Plasma ID Date Data Source [id number] 12/29/2019 03:18:00 PM [facility] Test Performed by:[facility] [address] [id number] Directo r: Mukesh Rudolph M.D. Ph.D.; CLIA# [id number] Name Value Range Interpretation Code Description Data Bryanna rce(s) Supporting Document(s ) ALPHA-1-A 107 mg/dL [place] NTITRYPSI [facility] N ID Date Data Source [id number] 12/29/2019 [facility]:18[facility] QUANTITATION BY OZZIE DIANE Ampl iPrep/DIANE TaqMan HCV TEST v2.0. Name Value Range Interpretation Description Data Sup porting Code Source(s) Document(s ) Hepatitis C 0.00 [place] virus RNA [log {copies} Hospital units/volume] /mL (viral load) in Serum or Plasma by Probe and target amplification method ID Date Data Source [id number] 12/29/2019 03:18:[facility] NO [facility]IRUS DETECTED. Name Value Range Interpretation Description Data Sup porting Code Source(s) Document(s ) Hepatitis C 0 [place] virus RNA [IU]/mL Hospital [Units/volume] (viral load) in Serum or Plasma by Probe and target amplification method ID Date Data Source [id number] 12/29/2019 03:18:00 PM EDT Health System Name Value Range Interpretation Description Data Sup porting Code Source(s) Document(s ) Hepatitis B NON-REACT [place] virus core Ab [facility] [Presence] in Serum ID Date Data Source [id number] 12/29/2019 03:18:00 PM EDT [facility] Name Value Range Interpretation Description Data Sup porting Code Source(s) Document(s ) Hepatitis A NON-REACT [place] virus IgM Ab [facility] [Presence] in Serum ID Date Data Source [id number] 12/29/2019 03:18:00 PM EDT [facility] System Name Value Range Interpretation Description Data Sup porting Code Source(s) Document(s ) Hepatitis A REACTIVE [place] virus Ab Hospital [Presence] in Serum ID Date Data Source [id number] 12/29/2019 03:18:00 PM EDT [facility] Name Value Range Interpretation Description Data Sup porting Code Source(s) Document(s ) Hepatitis B NON-REACT [place] virus surface [facility] Ab [Presence] in Serum ID Date Data Source [id number] 12/29/2019 03:18:00 PM EDT [facility] Name Value Range Interpretation Description Data Sup porting Code Source(s) Document(s ) Hepatitis B NON-REACT [place] virus surface [facility] Ag [Presence] in Serum ID Date Data Source [id number] 12/29/2019 03:18:00 PM EDT [facility] System Name Value Range Interpretation Description Data Sup porting Code Source(s) Document(s ) Ferritin 67.0 [place] [Mass/volume ng/mL Hospital ] in Serum or Plasma ID Date Data Source [id number] 12/29/2019 03:18:00 PM EDT [facility] System Name Value Range Interpretation Description Data Sup porting Code Source(s) Document(s ) Iron saturation 12 % [place] [Mass Fraction] Hospital in Serum or Plasma ID Date Data Source [id number] 12/29/2019 03:18:00 PM EDT [facility] Name Value Range Interpretation Description Data Sup porting Code Source(s) Document(s ) UNSAT IRON 309 ug/dL [place] [facility] CAPACITY ID Date Data Source [id number] 12/29/2019 [facility] Name Value Range Interpretation Description Data Sup porting Code Source(s) Document(s ) Iron binding 355 ug/dL [place] capacity Hospital [Mass/volume ] in Serum or Plasma ID Date Data Source [id number] 12/29/2019 03:18:00 PM EDT Health System Name Value Range Interpretation Code Description Data Supporting Source(s) Document(s ) Iron 46 ug/dL [place] [Mass/volum Hospital e] in Serum or Plasma ID Date Data Source [id number] 12/29/2019 03:18:00 PM [facility] NOTE: NEW METHODOLOGY ,EFFECTIVE 8.TEST PERFORMED BY [employer] CHEMILUMINESCENCE LOCI TECHNOLOGY.REFERE NCE RANGE APPLIES TO MALES AND NON- FEMALES ONLY.AFP TUMOR MARKER IS NOT TO BE USED A DIAGNOSTIC TOOL WITHOUT CLINICAL EVALUATION. THE ASSAY SHOULD NOT BE USED A SCREENING TEST FOR MALIGNANCY. VALUES OBTAINED WIT H DIFFERENT ASSAY METHODS OR COREMAKING SUPERVISOR KITS CANNOT BE USED INTERCHANGEABLY.RESU LTS CANNOT BE INTERPRETED A TUMOR MARKER IN FEMALES. Name Value Range Interpretation Description Data Sup porting Code Source(s) Document(s ) Alpha-1-fet 36.6 ng/mL [place] [facility]protein.[facility] mor marker [Mass/volum e] in Serum or Plasma ID Date Data Source [id number] 12/29/2019 [facility] Name Value Range Interpretation Description Data Sup porting Code Source(s) Document(s ) Bilirubin.d 0.3 mg/dL [facility] [Mass/volum e] in Serum or Plasma ID Date Data Source [id number] 12/21/2019 08:29:00 AM [facility] Manager Energy:[employer] Name Value Range Interpretation Description Data Sup porting Code Source(s) Document(s ) Glucose 327 mg/dL [place] [Mass/volume] Hospital in Capillary blood by Glucometer ID Date Data Source [id number] 12/21/2019 07:35:00 AM [facility] CUT-OFF >= 25 NG/ML.THE FINDINGS [...] rce(s) Supporting Document(s ) PCP (UR) NEGATIVE Health System ID Date Data Source [id number] 12/21/2019 07:35:00 AM [facility] CUT-OFF >= 50 NG/ML. Name Value Range Interpretation Code Description Data Bryanna rce(s) Supporting Document(s ) THC (UR) NEGATIVE Health System ID Date Data Source [id number] 12/21/2019 07:35:00 AM [facility] CUT-OFF >= 300 NG/ML. Name Value Range Interpretation Description Data Sup porting Code Source(s) Document(s ) OPIATES (UR) NEGATIVE Health System ID Date Data Source [id number] 12/21/2019 07:35:00 AM EDT Health System CUT-OFF >= 300 NG/ML. Name Value Range Interpretation Description Data Sup porting Code Source(s) Document(s ) COCAINE (UR) POSITIVE Health System ID Date Data Source [id number] 12/21/2019 07:35:00 AM EDT Health System CUT-OFF >= 200 NG/ML. Name Value Range Interpretation Description Data Sup porting Code Source(s) Document(s ) BENZODIAZEPINES NEGATIVE [place] (UR) [facility] ID Date Data Source [id number] 12/21/2019 07:35:00 AM [facility] CUT-OFF >= 200 NG/ML. Name Value Range Interpretation Description Data Sup porting Code Source(s) Document(s ) BARBITURATES NEGATIVE [place] (UR) Hospital ID Date Data Source [id number] 12/21/2019 07:35:[facility] CUT-OFF >= 1000 NG/ML. Name Value Range Interpretation Description Data Sup porting Code Source(s) Document(s ) AMPHETAMINES NEGATIVE [place] (UR) Hospital ID Date Data Source [id number] 12/21/2019 07:35:00 AM [facility] CUT-OFF >= 1000 NG/ML. Name Value Range Interpretation Description Data Sup porting Code Source(s) Document(s ) AMPHETAMINES NEGATIVE [place] (UR) Hospital ID Date Data Source [id number] 12/21/2019 07:35:00 AM [facility] Name Value Range Interpretation Description Data Sup porting Code Source(s) Document(s ) Leukocyte NEGATIVE [facility] [Presence] in Urine by Test strip ID Date Data Source [id number] 12/21/2019 07:35:[facility] Name Value Range Interpretation Description Data Sup porting Code Source(s) Document(s ) URINE NEGATIVE [place] NITRITES Hospital ID Date Data Source [id number] 12/21/2019 07:35:00 AM EDT Health System Name Value Range Interpretation Description Data Sup porting Code Source(s) Document(s ) Erythrocytes NEGATIVE [place] [#/volume] in Hospital Urine by Test strip ID Date Data Source [id number] 12/21/2019 07:35:00 AM EDT [facility] Value Range Interpretation Code Description Data Bryanna rce(s) Supporting Document(s ) Bilirubin. NEGATIVE [place] total Hospital [Presence] in Urine by Test strip ID Date Data Source [id number] 12/21/2019 07:35:00 AM EDT [facility] Value Range Interpretation Description Data Sup porting Code Source(s) Document(s ) Urobilinogen 1.0 [place] [Units/volume] mg/dL Hospital in Urine by Test strip ID Date Data Source [id number] 12/21/2019 07:35:00 AM EDT [facility] Value Range Interpretation Description Data Sup porting Code Source(s) Document(s ) Ketones NEGATIVE [place] [[facility] in Urine by Test strip ID Date Data Source [id number] 12/21/2019 07:35:00 AM EDT [facility] Name Value Range Interpretation Code Description Data Bryanna rce(s) Supporting Document(s ) Glucose 3+ [place] [[facility] in Urine by Test strip ID Date Data Source [id number] 12/21/2019 07:35:00 AM EDT Health System Name Value Range Interpretation Description Data Sup porting Code Source(s) Document(s ) Protein NEGATIVE [place] [facility] in Urine by Test strip ID Date Data Source [id number] [facility] Range Interpretation Code Description Data Bryanna rce(s) Supporting Document(s ) pH of Urine 8.0 [place] by Test Hospital strip ID Date Data Source [id number] 12/[facility] Name Value Range Interpretation Code Description Data Supporting Source(s) Document(s ) Specific 1.023 [place] gravity of Hospital Urine by Test strip ID Date Data Source [id number] 12/21/2019 07:35:00 AM [facility] Name Value Range Interpretation Description Data Sup porting Code Source(s) Document(s ) Clarity in Urine CLEAR [place] by Refractometry Hospital automated ID Date Data Source [id number] 12/21/2019 07:35:00 AM [facility] Name Value Range Interpretation Code Description Data Bryanna rce(s) Supporting Document(s ) Color of YELLOW [place] Urine Hospital ID Date Data Source [id number] 12/21/2019 07:35:00 AM [facility] CUT-OFF >= 25 NG/ML.THE FINDINGS [...] rce(s) Supporting Document(s ) PCP (UR) NEGATIVE Health System ID Date Data Source [id number] 12/21/2019 07:35:00 AM [facility] CUT-OFF >= 50 NG/ML. Name Value Range Interpretation Code Description Data Bryanna rce(s) Supporting Document(s ) THC (UR) NEGATIVE [place] [facility] ID Date Data Source [id number] 12/21/2019 07:35:00 AM EDT Health System CUT-OFF >= 300 NG/ML. Name Value Range Interpretation Description Data Sup porting Code Source(s) Document(s ) OPIATES (UR) NEGATIVE [place] [facility] ID Date Data Source [id number] 12/21/2019 07:35:00 AM EDT Health System CUT-OFF >= 300 NG/ML. Name Value Range Interpretation Description Data Sup porting Code Source(s) Document(s ) COCAINE (UR) POSITIVE Health System ID Date Data Source [id number] 12/21/2019 07:35:00 AM EDT Health System CUT-OFF >= 200 NG/ML. Name Value Range Interpretation Description Data Sup porting Code Source(s) Document(s ) BENZODIAZEPINES NEGATIVE [place] (UR) [facility] ID Date Data Source [id number] 12/21/2019 07:35:00 AM EDT Health System CUT-OFF >= 200 NG/ML. Name Value Range Interpretation Description Data Sup porting Code Source(s) Document(s ) BARBITURATES NEGATIVE [place] (UR) Hospital ID Date Data Source [id number] 12/21/2019 06:46:00 AM EDT Health System Name Value Range Interpretation Description Data Sup porting Code Source(s) Document(s ) GLUCOSE Notified [facility] Hospital ID Date Data Source [id number] 12/21/2019 06:46:00 AM EDT Health System Name Value Range Interpretation Description Data Sup porting Code Source(s) Document(s ) GLUCOSE Notified [facility] Hospital ID Date Data Source [id number] 12/[facility] Name Value Range Interpretation Description Data Sup porting Code Source(s) Document(s ) GLUCOSE RN Notified [facility] ID Date Data Source [id number] 12/21/2019 [facility] Name Value Range Interpretation Description Data Sup porting Code Source(s) Document(s ) GLUCOSE MD Notified [place] [address] Hospital ID Date Data Source [id number] 12/21/2019 06:46:00 AM EDT Health System Name Value Range Interpretation Description Data Sup porting Code Source(s) Document(s ) GLUCOSE MD Notified [place] [address] Hospital ID Date Data Source [id number] 12/21/2019 06:46:00 AM EDT Health System Name Value Range Interpretation Description Data Sup porting Code Source(s) Document(s ) GLUCOSE RN Notified [facility] ID Date Data Source [id number] 12/21/2019 06:33:00 AM [facility] REFERENCE RANGES: NONE DETECTED <20 MG/DL NONE TO MILD EUPHORIA 20-49 MG/DL MILD EUPHORIA 50-99 MG/DL MODERATE EUPHORIA 100-149 MG/DL INTOXICATION 150-300 MG/DL Name Value Range Interpretation Description Data Sup porting Code Source(s) Document(s ) Ethanol < 20 [place] [Mass/volume mg/dL Hospital ] in Serum or Plasma ID Date Data Source [id number] 12/21/2019 06:33:00 AM [facility] TEST PERFORMED BY [employer] SENSIT[employer] [facility] CHEMILUMINESCENCE METHOD. Name Value Range Interpretation Description Data Sup porting Code Source(s) Document(s ) Troponin 0.01 [place] I.cardiac ng/mL Hospital [Mass/volume ] in Serum or Plasma ID Date Data Source [id number] 12/21/2019 06:33:00 AM [facility] THERAPEUTIC RANGES:UNFRACTIONATED HEPARI N THERAPY: 60-90 SECONDSARGATROBAN THERAPY: 49-99 SECONDS Name Value Range Interpretation Description Data Sup porting Code Source(s) Document(s ) aPTT in 29.0 s [place] Platelet poor [facility] plasma by Coagulation assay ID Date Data Source [id number] 12/21/2019 06:33:00 AM [facility] REFERENCE RANGES: NONE DETECTED <20 MG/DL NONE TO MILD EUPHORIA 20-49 MG/DL MILD EUPHORIA 50-99 MG/DL MODERATE EUPHORIA 100-149 MG/DL INTOXICATION 150-300 MG/DL Name Value Range Interpretation Description Data Sup porting Code Source(s) Document(s ) Ethanol < 20 [place] [Mass/volume mg/dL Hospital ] in Serum or Plasma ID Date Data Source [id number] 12/21/2019 06:33:00 AM [facility] TEST PERFORMED BY [employer] ULTRA SENSITIVE CENTAUR CHEMILUMINESCENCE METHOD. Name Value Range Interpretation Description Data Sup porting Code Source(s) Document(s ) Troponin 0.01 [place] I.cardiac ng/mL Hospital [Mass/volume ] in Serum or Plasma ID Date Data Source [id number] 12/21/2019 06:33:00 AM [facility] Name Value Range Interpretation Description Data Sup porting Code Source(s) Document(s ) Aspartate 90 U/L White aminotransferase [place] [Enzymatic Hospital activity/volume] in Serum or Plasma ID Date Data Source [id number] 12/21/2019 06:33:00 AM [facility] Name Value Range Interpretation Description Data Sup porting Code Source(s) Document(s ) Alanine 35 U/L White aminotransferase [place] [Enzymatic Hospital activity/volume] in Serum or Plasma ID Date Data Source [id number] 12/21/2019 06:33:00 AM EDT Health System Name Value Range Interpretation Description Data Sup porting Code Source(s) Document(s ) Alkaline 75 U/L [place] phosphatase Hospital [Enzymatic activity/volume ] in Serum or Plasma ID Date Data Source [id number] 12/21/2019 [facility] Name Value Range Interpretation Description Data Sup porting Code Source(s) Document(s ) Bilirubin.t 1.0 mg/dL [facility] [Mass/volum e] in Serum or Plasma ID Date Data Source [id number] 12/21/2019 06:33:00 AM EDT Health System Name Value Range Interpretation Code Description Data Bryanna rce(s) Supporting Document(s ) Albumin/Glob 1.2 [facility] [Mass Hospital Ratio] in Serum or Plasma ID Date Data Source [id number] 12/21/2019 06:33:00 AM EDT Health System Name Value Range Interpretation Description Data Sup porting Code Source(s) Document(s ) Albumin 3.8 g/dL [place] [[facility] ] in Serum or Plasma ID Date Data Source [id number] 12/21/2019 06:33:00 AM EDT Health System Name Value Range Interpretation Description Data Sup porting Code Source(s) Document(s ) Protein 7.1 g/dL [place] [[facility] ] in Serum or Plasma ID Date Data Source [id number] 12/21/2019 06:33:00 AM EDT Health System Name Value Range Interpretation Description Data Sup porting Code Source(s) Document(s ) Calcium 9.1 mg/dL [place] [[facility] ] in Serum or Plasma ID Date Data Source [id number] 12/21/2019 06:33:00 AM EDT Health System Name Value Range Interpretation Code Description Data Bryanna rce(s) Supporting Document(s ) Urea 13.8 [place] nitrogen/Cre Hospital atinine [Mass Ratio] in Serum or Plasma ID Date Data Source [id number] 12/21/2019 06:33:00 AM EDT Health System Name Value Range Interpretation Description Data Sup porting Code Source(s) Document(s ) Creatinine 0.8 mg/dL [place] [Mass/volume] Hospital in Serum or Plasma ID Date Data Source [id number] 12/21/2019 06:33:00 AM EDT Health System Name Value Range Interpretation Description Data Sup porting Code Source(s) Document(s ) Urea 11 mg/dL [place] nitrogen Hospital [Mass/volume ] in Serum or Plasma ID Date Data Source [id number] 12/21/2019 06:33:00 AM EDT Health System Name Value Range Interpretation Code Description Data Bryanna rce(s) Supporting Document(s ) Anion gap in 14 [place] Serum or [facility] Plasma ID Date Data Source [id number] 12/21/2019 06:33:00 AM EDT Health System Name Value Range Interpretation Description Data Sup porting Code Source(s) Document(s ) Carbon 28 mmol/L [place] dioxide, Hospital total [Moles/volu me] in Serum or Plasma ID Date Data Source [id number] 12/21/2019 06:33:00 AM EDT Health System Name Value Range Interpretation Description Data Sup porting Code Source(s) Document(s ) Chloride 102 [place] [Moles/volum mmol/L Hospital e] in Serum or Plasma ID Date Data Source [id number] 12/21/2019 06:33:00 AM EDT Health System SLIGHT HEMOLYSIS Name Value Range Interpretation Description Data Sup porting Code Source(s) Document(s ) Potassium 5.7 [place] [Moles/volume mmol/L Hospital ] in Serum or Plasma ID Date Data Source [id number] 12/21/2019 [facility] Value Range Interpretation Description Data Sup porting Code Source(s) Document(s ) Sodium 138 mmol/L [place] [Moles/volu Hospital tx] in Serum or Plasma ID Date Data Source [id number] 12/21/2019 [facility] Name Value Range Interpretation Description Data Sup porting Code Source(s) Document(s ) Glucose 351 mg/dL [place] [[facility] ] in Serum or Plasma ID Date Data Source [id number] 12/21/2019 06:33:00 AM [facility] THERAPEUTIC RANGES:UNFRACTIONATED HEPARI N THERAPY: 60-90 SECONDSARGATROBAN THERAPY: 49-99 SECONDS Name Value Range Interpretation Description Data Sup porting Code Source(s) Document(s ) aPTT in 29.0 s [place] Platelet poor [facility] plasma by Coagulation assay ID Date Data Source [id number] 12/21/2019 06:33:00 AM [facility] THERAPEUTIC RANGE FOR STANDARD ORALANTIC OAGULANT THERAPY: 2.0-3.0THERAPEUTIC RANGE FOR HIGH DOSE ORALANTICOAGULANT THERAPY (MECHANICAL HEARTVALVE REPLACEMENT): 2.5-3.5 Name Value Range Interpretation Description Data Sup porting Code Source(s) Document(s ) INR in Platelet 1.0 [place] poor plasma by Hospital Coagulation assay ID Date Data Source [id number] 12/21/2019 06:33:[facility] Name Value Range Interpretation Description Data Sup porting Code Source(s) Document(s ) PT panel - 12.2 s [place] Platelet poor [facility] plasma by Coagulation assay ID Date Data Source [id number] 12/21/2019 [facility] Interpret[facility] Description Data Sup porting Code Source(s) Document(s ) Platelet mean 12.5 fL [place] volume Hospital [Entitic volume] in Blood by Automated count ID Date Data Source [id number] 12/21/2019 06:33:00 AM EDT [facility] Value Range Interpretation Description Data Sup porting Code Source(s) Document(s ) Platelets 184 [place] [#/volume] in 10*3/uL Hospital Blood by Automated count ID Date Data Source [id number] 12/21/2019 06:33:00 AM [facility] Value Range Interpretation Description Data Sup porting Code Source(s) Document(s ) Erythrocyte 14.5 % [place] distribution Hospital width [Ratio] by Automated count ID Date Data Source [id number] 12/21/2019 06:33:00 AM [facility] Value Range Interpretation Description Data Sup porting Code Source(s) Document(s ) Erythrocyte mean 33.5 [place] corpuscular g/dL Hospital hemoglobin concentration [Mass/volume] by Automated count ID Date Data Source [id number] 12/21/2019 06:33:00 AM [facility] Value Range Interpretation Description Data Sup porting Code Source(s) Document(s ) Erythrocyte 30.4 pg [facility] corpuscular hemoglobin [Entitic mass] by Automated count ID Date Data Source [id number] 12/21/2019 06:33:00 AM [facility] Value Range Interpretation Description Data Sup porting Code Source(s) Document(s ) Erythrocyte 90.6 fL [place] mean [facility] corpuscular volume [Entitic volume] by Automated count ID Date Data Source [id number] 12/21/2019 06[facility] Name Value Range Interpretation Description Data Sup porting Code Source(s) Document(s ) Hematocrit 35.5 % [place] [Volume Hospital Fraction] of Blood by Automated count ID Date Data Source [id number] 12/21/2019 06:33:00 AM EDT Health System Name Value Range Interpretation Description Data Sup porting Code Source(s) Document(s ) Hemoglobin 11.9 g/dL [place] [Mass/volume] Hospital in Blood ID Date Data Source [id number] 12/21/2019 06[facility] Name Value Range Interpretation Description Data Sup porting Code Source(s) Document(s ) Erythrocytes 3.92 [place] [#/volume] in 10*6/uL Hospital Blood by Automated count ID Date Data Source [id number] 12/21/2019 06:[facility] Name Value Range Interpretation Description Data Sup porting Code Source(s) Document(s ) Leukocytes 7.1 [place] [#/volume] in 10*3/uL Hospital Blood by Automated count ID Date Data Source [id number] 12/20/2019 06:38:00 AM [facility] Manager Energy:MARQUITA RAMIREZ Name Value Range Interpretation Description Data Sup porting Code Source(s) Document(s ) Glucose 190 mg/dL [place] [Mass/volume] Hospital in Capillary blood by Glucometer ID Date Data Source [id number] 12/19/2019 10:18:00 AM [facility] Name Value Range Interpretation Description Data Sup porting Code Source(s) Document(s ) Manual MANUAL [place] differential Hospital performed [Presence] in Blood ID Date Data Source [id number] 12/19/2019 10:18:00 AM EDT Health System Name Value Range Interpretation Code Description Data Bryanna rce(s) Supporting Document(s ) Cells 100 [facility] Total [#] in Blood ID Date Data Source [id number] 12/19/2019 10:18:00 AM EDT [facility] Value Range Interpretation Code Description Data Supporting Source(s) Document(s ) PLATELET NORMAL [facility] Hospital ID Date Data Source [id number] 12/19/2019 10:18:00 AM EDT [facility] Value Range Interpretation Code Description Data Bryanna rce(s) Supporting Document(s ) TARGET CELLS [facility] ID Date Data Source [id number] 12/19/2019 10:18:00 AM EDT [facility] Value Range Interpretation Code Description Data Supporting Source(s) Document(s ) POLYCHROMASIA [facility] ID Date Data Source [id number] 12/19/2019 10:18:00 AM EDT [facility] Value Range Interpretation Code Description Data Bryanna rce(s) Supporting Document(s ) HYPOCHROMIA [facility] ID Date Data Source [id number] 12/19/2019 10:18:00 AM EDT [facility] Value Range Interpretation Description Data Sup porting Code Source(s) Document(s ) POIKILOCYTOSIS [facility] ID Date Data Source [id number] 12/19/2019 [facility] Code Description Data Bryanna rce(s) Supporting Document(s ) ANISOCYTOSIS [facility] ID Date Data Source [id number] 12/19/2019 10:18:00 AM EDT Health System Name Value Range Interpretation Description Data Sup porting Code Source(s) Document(s ) Eosinophils 0.22 [place] [#/volume] in 10*3/uL Hospital Blood by Manual count ID Date Data Source [id number] 12/19/2019 10:18:00 AM EDT [facility] Value Range Interpretation Description Data Sup porting Code Source(s) Document(s ) Monocytes 0.52 [place] [#/volume] in 10*3/uL Hospital Blood by Manual count ID Date Data Source [id number] 12/19/2019 10:18:00 AM EDT [facility] Value Range Interpretation Description Data Sup porting Code Source(s) Document(s ) Lymphocytes 1.89 [place] [#/volume] in 10*3/uL Hospital Blood by Manual count ID Date Data Source [id number] 12/19/2019 10:18:00 AM EDT [facility] Value Range Interpretation Description Data Sup porting Code Source(s) Document(s ) Neutrophils 1.07 [place] [#/volume] in 10*3/uL Hospital Blood by Manual count ID Date Data Source [id number] 12/19/2019 10:18:00 AM EDT [facility] Value Range Interpretation Description Data Sup porting Code Source(s) Document(s ) Eosinophils/100 6 % [place] leukocytes in Hospital Blood by Manual count ID Date Data Source [id number] 12/19/2019 10:18:00 AM EDT [facility] Value Range Interpretation Description Data Sup porting Code Source(s) Document(s ) Monocytes/100 14 % [place] leukocytes in Hospital Blood by Manual count ID Date Data Source [id number] 12/19/2019 10:18:00 AM EDT [place] [facility] Name Value Range Interpretation Description Data Sup porting Code Source(s) Document(s ) Lymphocytes/100 51 % [place] leukocytes in Hospital Blood by Manual count ID Date Data Source [id number] 12/19/2019 10:18:00 AM EDT Health System Name Value Range Interpretation Description Data Sup porting Code Source(s) Document(s ) Band form 1 % [place] neutrophils/100 Hospital leukocytes in Blood ID Date Data Source [id number] 12/19/2019 10:18:00 AM EDT Health System Name Value Range Interpretation Description Data Sup porting Code Source(s) Document(s ) Neutrophils/100 28 % [place] leukocytes in Hospital Blood by Manual count ID Date Data Source [id number] 12/19/2019 10:18:00 AM EDT [facility] Value Range Interpretation Description Data Sup porting Code Source(s) Document(s ) Manual MANUAL [place] differential Hospital performed [Presence] in Blood ID Date Data Source [id number] 12/19/2019 10:18:00 AM EDT [facility] Value Range Interpretation Code Description Data Bryanna rce(s) Supporting Document(s ) Cells 100 [place] Counted Hospital Total [#] in Blood ID Date Data Source [id number] 12/19/2019 10:18:00 AM EDT [facility] Value Range Interpretation Code Description Data Supporting Source(s) Document(s ) PLATELET NORMAL [facility] Hospital ID Date Data Source [id number] 12/19/2019 10:18:00 AM EDT Health System Name Value Range Interpretation Code Description Data Bryanna rce(s) Supporting Document(s ) TARGET CELLS OCC [place] [facility] ID Date Data Source [id number] 12/19/2019 10:18:00 AM EDT Health System Name Value Range Interpretation Code Description Data Supporting Source(s) Document(s ) POLYCHROMASIA [facility] ID Date Data Source [id number] 12/19/2019 10:[facility] Interpretation Code Description Data Bryanna rce(s) Supporting Document(s ) HYPOCHROMIA [facility] ID Date Data Source [id number] 12/19/2019 10:18:00 AM EDT [facility] Value Range Interpretation Description Data Sup porting Code Source(s) Document(s ) POIKILOCYTOSIS [facility] ID Date Data Source [id number] 12/19/2019 10:18[facility] Range Interpretation Code Description Data Bryanna rce(s) Supporting Document(s ) ANISOCYTOSIS [facility] ID Date Data Source [id number] 12/19/2019 10:18[facility] Interpretation Description Data Sup porting Code Source(s) Document(s ) Eosinophils 0.22 [place] [#/volume] in 10*3/uL Hospital Blood by Manual count ID Date Data Source [id number] 12/19/2019 10:18:00 AM EDT [facility] Value Range Interpretation Description Data Sup porting Code Source(s) Document(s ) Monocytes 0.52 [place] [#/volume] in 10*3/uL Hospital Blood by Manual count ID Date Data Source [id number] 12/19/2019 10:[facility] Interpretation Description Data Sup porting Code Source(s) Document(s ) Lymphocytes 1.89 [place] [#/volume] in 10*3/uL Hospital Blood by Manual count ID Date Data Source [id number] 12/19/2019 10:18:00 AM EDT [facility] Value Range Interpretation Description Data Sup porting Code Source(s) Document(s ) Neutrophils 1.07 [place] [#/volume] in 10*3/uL Hospital Blood by Manual count ID Date Data Source [id number] 12/19/2019 10:18:00 AM EDT [facility] Value Range Interpretation Description Data Sup porting Code Source(s) Document(s ) Eosinophils/100 6 % [place] leukocytes in Hospital Blood by Manual count ID Date Data Source [id number] 12/19/2019 10:18:00 AM EDT [facility] Value Range Interpretation Description Data Sup porting Code Source(s) Document(s ) Monocytes/100 14 % [place] leukocytes in Hospital Blood by Manual count ID Date Data Source [id number] 12/19/2019 10:18:00 AM EDT [facility] Value Range Interpretation Description Data Sup porting Code Source(s) Document(s ) Lymphocytes/100 51 % [place] leukocytes in Hospital Blood by Manual count ID Date Data Source [id number] 12/19/2019 10:18:00 AM EDT [facility] Value Range Interpretation Description Data Sup porting Code Source(s) Document(s ) Band form 1 % [place] neutrophils/100 Hospital leukocytes in Blood ID Date Data Source [id number] 12/19/2019 10:18:00 AM EDT [facility] Value Range Interpretation Description Data Sup porting Code Source(s) Document(s ) Neutrophils/100 28 % [place] leukocytes in Hospital Blood by Manual count ID Date Data Source [id number] 12/19/2019 10:18:00 AM EDT [place] [facility] Name Value Range Interpretation Description Data Sup porting Code Source(s) Document(s ) Manual MANUAL [place] differential Hospital performed [Presence] in Blood ID Date Data Source [id number] 12/19/2019 10:18:00 AM EDT [facility] Value Range Interpretation Code Description Data Bryanna rce(s) Supporting Document(s ) Cells 100 [facility] Total [#] in Blood ID Date Data Source [id number] 12/19/2019 10:18:00 AM EDT [facility] Value Range Interpretation Code Description Data Supporting Source(s) Document(s ) PLATELET NORMAL [facility] Hospital ID Date Data Source [id number] 12/19/2019 10:18:00 AM EDT [facility] Value Range Interpretation Code Description Data Bryanna rce(s) Supporting Document(s ) TARGET CELLS [facility] ID Date Data Source [id number] 12/19/2019 10:18:00 AM EDT [facility] Value Range Interpretation Code Description Data Supporting Source(s) Document(s ) POLYCHROMASIA [facility] ID Date Data Source [id number] 12/19/2019 10:18:00 AM EDT [facility] Value Range Interpretation Code Description Data Bryanna rce(s) Supporting Document(s ) HYPOCHROMIA [facility] ID Date Data Source [id number] 12/19/2019 10:18:00 AM EDT [facility] Value Range Interpretation Description Data Sup porting Code Source(s) Document(s ) POIKILOCYTOSIS [facility] ID Date Data Source [id number] 12/19/2019 10:18:00 AM EDT [facility] Value Range Interpretation Code Description Data Bryanna rce(s) Supporting Document(s ) ANISOCYTOSIS OCC [place] [facility] ID Date Data Source [id number] 12/19/2019 10:18:00 AM EDT [facility] Value Range Interpretation Description Data Sup porting Code Source(s) Document(s ) Eosinophils 0.22 [place] [#/volume] in 10*3/uL Hospital Blood by Manual count ID Date Data Source [id number] 12/19/2019 10:18:00 AM EDT Health System Name Value Range Interpretation Description Data Sup porting Code Source(s) Document(s ) Monocytes 0.52 [place] [#/volume] in 10*3/uL Hospital Blood by Manual count ID Date Data Source [id number] 12/19/2019 10:18:00 AM EDT [facility] Value Range Interpretation Description Data Sup porting Code Source(s) Document(s ) Lymphocytes 1.89 [place] [#/volume] in 10*3/uL Hospital Blood by Manual count ID Date Data Source [id number] 12/19/2019 10:18:00 AM EDT [facility] Value Range Interpretation Description Data Sup porting Code Source(s) Document(s ) Neutrophils 1.07 [place] [#/volume] in 10*3/uL Hospital Blood by Manual count ID Date Data Source [id number] 12/19/2019 10:18:00 AM EDT [facility] Value Range Interpretation Description Data Sup porting Code Source(s) Document(s ) Eosinophils/100 6 % [place] leukocytes in Hospital Blood by Manual count ID Date Data Source [id number] 12/19/2019 10:18:00 AM EDT [facility] Value Range Interpretation Description Data Sup porting Code Source(s) Document(s ) Monocytes/100 14 % [place] leukocytes in Hospital Blood by Manual count ID Date Data Source [id number] 12/19/2019 10:18:00 AM EDT Health System Name Value Range Interpretation Description Data Sup porting Code Source(s) Document(s ) Lymphocytes/100 51 % [place] leukocytes in Hospital Blood by Manual count ID Date Data Source [id number] 12/19/2019 10:18:00 AM EDT Health System Name Value Range Interpretation Description Data Sup porting Code Source(s) Document(s ) Band form 1 % [place] neutrophils/100 Hospital leukocytes in Blood ID Date Data Source [id number] 12/19/2019 10:18:00 AM EDT [facility] Value Range Interpretation Description Data Sup porting Code Source(s) Document(s ) Neutrophils/100 28 % [place] leukocytes in Hospital Blood by Manual count ID Date Data Source [id number] 12/19/2019 10:18:00 AM EDT [facility] Value Range Interpretation Description Data Sup porting Code Source(s) Document(s ) Manual MANUAL [place] differential Hospital performed [Presence] in Blood ID Date Data Source [id number] 12/19/2019 10:18:00 AM EDT [facility] Value Range Interpretation Code Description Data Bryanna rce(s) Supporting Document(s ) Cells 100 [place] [facility] Total [#] in Blood ID Date Data Source [id number] 12/19/2019 10:18:00 AM EDT [facility] Value Range Interpretation Code Description Data Supporting Source(s) Document(s ) PLATELET NORMAL [place] COMMENT Hospital ID Date Data Source [id number] 12/19/2019 10:18:00 AM EDT Health System Name Value Range Interpretation Code Description Data Bryanna rce(s) Supporting Document(s ) TARGET CELLS OCC [place] [facility] ID Date Data Source [id number] 12/19/2019 10:18:00 AM EDT [facility] Value Range Interpretation Code Description Data Supporting Source(s) Document(s ) POLYCHROMASIA OCC Health System ID Date Data Source [id number] 12/19/2019 10:18:00 AM EDT [facility] Value Range Interpretation Code Description Data Bryanna rce(s) Supporting Document(s ) HYPOCHROMIA [facility] ID Date Data Source [id number] 12/19/2019 10:18:00 AM EDT [facility] Value Range Interpretation Description Data Sup porting Code Source(s) Document(s ) POIKILOCYTOSIS [facility] ID Date Data Source [id number] 12/[facility] Description Data Bryanna rce(s) Supporting Document(s ) ANISOCYTOSIS [facility] ID Date Data Source [id number] 12/19/2019 [facility] Interpret[facility] Description Data Sup porting Code Source(s) Document(s ) Eosinophils 0.22 [place] [#/volume] in 10*3/uL Hospital Blood by Manual count ID Date Data Source [id number] 12/19/2019 10:18:00 AM EDT [facility] Value Range Interpretation Description Data Sup porting Code Source(s) Document(s ) Monocytes 0.52 [place] [#/volume] in 10*3/uL Hospital Blood by Manual count ID Date Data Source [id number] 12/19/2019 10:18:00 AM EDT [place] [facility] Name Value Range Interpretation Description Data Sup porting Code Source(s) Document(s ) Lymphocytes 1.89 [place] [#/volume] in 10*3/uL Hospital Blood by Manual count ID Date Data Source [id number] 12/19/2019 10:18:00 AM EDT [facility] Value Range Interpretation Description Data Sup porting Code Source(s) Document(s ) Neutrophils 1.07 [place] [#/volume] in 10*3/uL Hospital Blood by Manual count ID Date Data Source [id number] 12/19/2019 10:18:00 AM EDT [facility] Value Range Interpretation Description Data Sup porting Code Source(s) Document(s ) Eosinophils/100 6 % [place] leukocytes in Hospital Blood by Manual count ID Date Data Source [id number] 12/19/2019 10:18:00 AM EDT [facility] Value Range Interpretation Description Data Sup porting Code Source(s) Document(s ) Monocytes/100 14 % [place] leukocytes in Hospital Blood by Manual count ID Date Data Source [id number] 12/19/2019 10:18:00 AM EDT [facility] Value Range Interpretation Description Data Sup porting Code Source(s) Document(s ) Lymphocytes/100 51 % [place] leukocytes in Hospital Blood by Manual count ID Date Data Source [id number] 12/19/2019 10:18:00 AM EDT [facility] Value Range Interpretation Description Data Sup porting Code Source(s) Document(s ) Band form 1 % [place] neutrophils/100 Hospital leukocytes in Blood ID Date Data Source [id number] 12/19/2019 10:18:00 AM EDT [facility] Value Range Interpretation Description Data Sup porting Code Source(s) Document(s ) Neutrophils/100 28 % [place] leukocytes in Hospital Blood by Manual count ID Date Data Source [id number] 12/19/2019 [facility] Description Data Sup porting Code Source(s) Document(s ) Platelet mean 12.2 fL [place] volume Hospital [Entitic volume] in Blood by Automated count ID Date Data Source [id number] 12/19/2019 [facility] Interpretation Description Data Sup porting Code Source(s) Document(s ) Platelets 164 [place] [#/volume] in 10*3/uL Hospital Blood by Automated count ID Date Data Source [id number] 12/19/2019 10:18:00 AM [facility] Value Range Interpretation Description Data Sup porting Code Source(s) Document(s ) Erythrocyte 14.1 % [place] distribution Hospital width [Ratio] by Automated count ID Date Data Source [id number] 12/19/2019 10:18:00 AM [facility] Value Range Interpretation Description Data Sup porting Code Source(s) Document(s ) Erythrocyte mean 34.9 [place] corpuscular g/dL Hospital hemoglobin concentration [Mass/volume] by Automated count ID Date Data Source [id number] 12/19/2019 10:18:00 AM [facility] Value Range Interpretation Description Data Sup porting Code Source(s) Document(s ) [facility] 30.4 [facility] [Entitic mass[facility] by Automated count ID Date Data Source [id number] 12/19/2019 10:18:00 AM [facility] Value Range Interpretation Description Data Sup porting Code Source(s) Document(s ) Erythrocyte 87.1 fL [place] mean Hospital corpuscular volume [Entitic volume] by Automated count ID Date Data Source [id number] 12/19/2019 10:18:00 AM EDT Health System Name Value Range Interpretation Description Data Sup porting Code Source(s) Document(s ) Hematocrit 32.4 % [place] [Volume Hospital Fraction] of Blood by Automated count ID Date Data Source [id number] 12/19/2019 10:18:00 AM EDT Health System Name Value Range Interpretation Description Data Sup porting Code Source(s) Document(s ) Hemoglobin 11.3 g/dL [place] [Mass/volume] Hospital in Blood ID Date Data Source [id number] 12/19/2019 10:18:00 AM EDT [facility] Value Range Interpretation Description Data Sup porting Code Source(s) Document(s ) Erythrocytes 3.72 [place] [#/volume] in 10*6/uL Hospital Blood by Automated count ID Date Data Source [id number] 12/19/2019 10:18:00 AM EDT [facility] Value Range Interpretation Description Data Sup porting Code Source(s) Document(s ) Leukocytes 3.7 [place] [#/volume] in 10*3/uL Hospital Blood by Automated count ID Date Data Source [id number] 12/19/2019 10:18:00 AM EDT Health System Name Value Range Interpretation Description Data Sup porting Code Source(s) Document(s ) Manual MANUAL [place] differential Hospital performed [Presence] in Blood ID Date Data Source [id number] 12/19/2019 10:18:00 AM EDT [facility] Value Range Interpretation Code Description Data Bryanna rce(s) Supporting Document(s ) Cells 100 [place] Counted Hospital Total [#] in Blood ID Date Data Source [id number] 12/19/2019 10:18:00 AM EDT [facility] Value Range Interpretation Code Description Data Supporting Source(s) Document(s ) PLATELET NORMAL [facility] ID Date Data Source [id number] 12/19/2019 10:18:00 AM EDT [facility] Value Range Interpretation Code Description Data Bryanna rce(s) Supporting Document(s ) TARGET CELLS [facility] ID Date Data Source [id number] 12/19/2019 10:18:00 AM EDT [facility] Value Range Interpretation Code Description Data Supporting Source(s) Document(s ) POLYCHROMASIA [facility] ID Date Data Source [id number] 12/19/2019 10:18:00 AM EDT [facility] Value Range Interpretation Code Description Data Bryanna rce(s) Supporting Document(s ) HYPOCHROMIA [facility] ID Date Data Source [id number] 12/19/2019 10:18:00 AM EDT [facility] Value Range Interpretation Description Data Sup porting Code Source(s) Document(s ) POIKILOCYTOSIS [facility] ID Date Data Source [id number] 12/19/2019 10:18:00 AM EDT [facility] Value Range Interpretation Code Description Data Bryanna rce(s) Supporting Document(s ) ANISOCYTOSIS [facility] ID Date Data Source [id number] 12/19/2019 [facility] Interpret[facility] Description Data Sup porting Code Source(s) Document(s ) Eosinophils 0.22 [place] [#/volume] in 10*3/uL Hospital Blood by Manual count ID Date Data Source [id number] 12/19/2019 10:18:00 AM EDT [place] [facility] Name Value Range Interpretation Description Data Sup porting Code Source(s) Document(s ) Monocytes 0.52 [place] [#/volume] in 10*3/uL Hospital Blood by Manual count ID Date Data Source [id number] 12/19/2019 10:18:00 AM EDT [facility] Value Range Interpretation Description Data Sup porting Code Source(s) Document(s ) Lymphocytes 1.89 [place] [#/volume] in 10*3/uL Hospital Blood by Manual count ID Date Data Source [id number] 12/19/2019 10:18:00 AM EDT [facility] Value Range Interpretation Description Data Sup porting Code Source(s) Document(s ) Neutrophils 1.07 [place] [#/volume] in 10*3/uL Hospital Blood by Manual count ID Date Data Source [id number] 12/19/2019 10:18:00 AM EDT [facility] Value Range Interpretation Description Data Sup porting Code Source(s) Document(s ) Eosinophils/100 6 % [place] leukocytes in Hospital Blood by Manual count ID Date Data Source [id number] 12/19/2019 10:18:00 AM EDT [facility] Value Range Interpretation Description Data Sup porting Code Source(s) Document(s ) Monocytes/100 14 % [place] leukocytes in Hospital Blood by Manual count ID Date Data Source [id number] 12/19/2019 10:18:00 AM EDT [facility] Value Range Interpretation Description Data Sup porting Code Source(s) Document(s ) Lymphocytes/100 51 % [place] leukocytes in Hospital Blood by Manual count ID Date Data Source [id number] 12/19/2019 10:18:00 AM EDT [facility] Value Range Interpretation Description Data Sup porting Code Source(s) Document(s ) Band form 1 % [place] neutrophils/100 Hospital leukocytes in Blood ID Date Data Source [id number] 12/19/2019 10:18:00 AM [facility] Name Value Range Interpretation Description Data Sup porting Code Source(s) Document(s ) Neutrophils/100 28 % [place] leukocytes in Hospital Blood by Manual count ID Date Data Source [id number] 12/19/2019 10:12:00 AM [facility] UNITS ARE IN ml/min/1.73m2.IF PATIENT IS -JORDANIAN, MULTIPLY REPORTED RESULT BY 1.21. Name Value Range Interpretation Description Data Sup porting Code Source(s) Document(s ) Glomerular > 60 [place] filtration mL/min Hospital rate/1.73 sq M.predicted [Volume Rate/Area] in Serum or Plasma by Creatinine-bas ed formula (MDRD) ID Date Data Source [id number] 12/19/2019 10:12:00 AM [facility] UNITS ARE IN ml/min/1.73m2.IF PATIENT IS -JORDANIAN, MULTIPLY REPORTED RESULT BY 1.21. Name Value Range Interpretation Description Data Sup porting Code Source(s) Document(s ) Glomerular > 60 [place] filtration mL/min Hospital rate/1.73 sq M.predicted [Volume Rate/Area] in Serum or Plasma by Creatinine-bas ed formula (MDRD) ID Date Data Source [id number] 12/19/2019 10:12:00 AM [facility] Name Value Range Interpretation Description Data Sup porting Code Source(s) Document(s ) Aspartate 46 U/L White aminotransferase [place] [Enzymatic Hospital activity/volume] in Serum or Plasma ID Date Data Source [id number] 12/19/2019 10:12:00 AM [facility] Name Value Range Interpretation Description Data Sup porting Code Source(s) Document(s ) Alanine 24 U/L White aminotransferase [place] [Enzymatic Hospital activity/volume] in Serum or Plasma ID Date Data Source [id number] 12/19/2019 10:12:00 AM EDT Health System Name Value Range Interpretation Description Data Sup porting Code Source(s) Document(s ) Alkaline 67 U/L [place] phosphatase Hospital [Enzymatic activity/volume ] in Serum or Plasma ID Date Data Source [id number] 12/19/2019 10:12:00 AM EDT Health System Name Value Range Interpretation Description Data Sup porting Code Source(s) Document(s ) Bilirubin.t 1.2 mg/dL [facility] [Mass/volum e] in Serum or Plasma ID Date Data Source [id number] 12/19/2019 [facility] Interpret[facility] Code Description Data Bryanna rce(s) Supporting Document(s ) [facility] Ratio] in Serum or Plasma ID Date Data Source [id number] 12/19/2019 [facility] Interpretation Description Data Sup porting Code Source(s) Document(s ) Albumin 2.8 g/dL [place] [Mass/volume Hospital ] in Serum or Plasma ID Date Data Source [id number] 12/[facility] Description Data Sup porting Code Source(s) Document(s ) Protein 5.5 g/dL [place] [Mass/volume Hospital ] in Serum or Plasma ID Date Data Source [id number] 12/19/2019 [facility] Interpretation Description Data Sup porting Code Source(s) Document(s ) Calcium 8.7 mg/dL [place] [Mass/volume Hospital ] in Serum or Plasma ID Date Data Source [id number] 12/19/2019 10:12:00 AM [facility] UNITS ARE IN ml/min/1.73m2.IF PATIENT IS -JORDANIAN, MULTIPLY REPORTED RESULT BY 1.21. Name Value Range Interpretation Description Data Sup porting Code Source(s) Document(s ) Glomerular > 60 [place] filtration mL/min Hospital rate/1.73 sq M.predicted [Volume Rate/Area] in Serum or Plasma by Creatinine-bas ed formula (MDRD) ID Date Data Source [id number] 12/19/2019 [facility] Interpretation Code Description Data Bryanna rce(s) Supporting Document(s ) Urea 12.9 [place] nitrogen/Cre Hospital atinine [Mass Ratio] in Serum or Plasma ID Date Data Source [id number] 12/19/2019 10:12:00 AM [facility] Name Value Range Interpretation Description Data Sup porting Code Source(s) Document(s ) Creatinine 0.7 mg/dL [place] [Mass/volume] Hospital in Serum or Plasma ID Date Data Source [id number] 12/19/2019 10:12:00 AM [facility] Name Value Range Interpretation Description Data Sup porting Code Source(s) Document(s ) Urea nitrogen 9 mg/dL [place] [Mass/volume] Hospital in Serum or Plasma ID Date Data Source [id number] 12/19/2019 10:12:00 AM T [facility] Value Range Interpretation Code Description Data Bryanna rce(s) Supporting Document(s ) Anion gap in 5 [place] Serum or [facility] Plasma ID Date Data Source [id number] 12/19/2019 10:12:00 AM EDT [place] [facility] Name Value Range Interpretation Description Data Sup porting Code Source(s) Document(s ) Carbon 32 mmol/L [place] dioxide, Hospital total [Moles/volu me] in Serum or Plasma ID Date Data Source [id number] 12/19/2019 10:12:00 AM EDT Health System Name Value Range Interpretation Description Data Sup porting Code Source(s) Document(s ) Chloride 106 [place] [Moles/volum mmol/L Hospital e] in Serum or Plasma ID Date Data Source [id number] 12/19/2019 10:12:00 AM EDT Health System Name Value Range Interpretation Description Data Sup porting Code Source(s) Document(s ) Potassium 3.7 [place] [Moles/volume mmol/L Hospital ] in Serum or Plasma ID Date Data Source [id number] 12/19/2019 10:12:00 AM EDT Health System Name Value Range Interpretation Description Data Sup porting Code Source(s) Document(s ) Sodium 139 mmol/L [place] [Moles/volu Hospital me] in Serum or Plasma ID Date Data Source [id number] 12/19/2019 10:12:00 AM EDT Health System Name Value Range Interpretation Description Data Sup porting Code Source(s) Document(s ) Glucose 294 mg/dL [place] [Mass/volume Hospital ] in Serum or Plasma ID Date Data Source [id number] 12/19/2019 10:12:00 AM [facility] UNITS ARE IN ml/min/1.73m2.IF PATIENT IS -JORDANIAN, MULTIPLY REPORTED RESULT BY 1.21. Name Value Range Interpretation Description Data Sup porting Code Source(s) Document(s ) Glomerular > 60 [place] filtration mL/min Hospital rate/1.73 sq M.predicted [Volume Rate/Area] in Serum or Plasma by Creatinine-bas ed formula (MDRD) ID Date Data Source [id number] 12/18/2019 12:28:00 PM EDT [facility] Value Range Interpretation Description Data Sup porting Code Source(s) Document(s ) GLUCOSE RN Notified [facility] Hospital ID Date Data Source [id number] 12/18/2019 09:16:00 AM EDT [facility] Value Range Interpretation Description Data Sup porting Code Source(s) Document(s ) Variant 1 % [place] lymphocytes/100 Hospital leukocytes in Blood by Manual count ID Date Data Source [id number] 12/18/2019 09:16:00 AM EDT [facility] Value Range Interpretation Description Data Sup porting Code Source(s) Document(s ) Variant 1 % [place] lymphocytes/100 Hospital leukocytes in Blood by Manual count ID Date Data Source [id number] 12/18/2019 09:16:00 AM EDT [facility] Value Range Interpretation Description Data Sup porting Code Source(s) Document(s ) Variant 1 % [place] lymphocytes/100 Hospital leukocytes in Blood by Manual count ID Date Data Source [id number] 12/18/2019 09:16:00 AM EDT [facility] Value Range Interpretation Description Data Sup porting Code Source(s) Document(s ) Variant 1 % [place] lymphocytes/100 Hospital leukocytes in Blood by Manual count ID Date Data Source [id number] 12/18/2019 09:16:00 AM EDT [facility] Value Range Interpretation Description Data Sup porting Code Source(s) Document(s ) Variant 1 % [place] lymphocytes/100 Hospital leukocytes in Blood by Manual count ID Date Data Source [id number] 12/17/2019 06:32:00 AM EDT [facility] Value Range Interpretation Description Data Sup porting Code Source(s) Document(s ) Phosphate 2.3 mg/dL [place] [Mass/volume] Hospital in Serum or Plasma ID Date Data Source [id number] 12/17/2019 06:32:00 AM [facility] Name Value Range Interpretation Description Data Sup porting Code Source(s) Document(s ) Phosphate 2.3 mg/dL [place] [Mass/volume] Hospital in Serum or Plasma ID Date Data Source [id number] [facility] Interpretation Description Data Sup porting Code Source(s) Document(s ) Magnesium 1.7 mg/dL [place] [Mass/volume] Hospital in Serum or Plasma ID Date Data Source [id number] 12/17/2019 06:32:00 AM [facility] Name Value Range Interpretation Description Data Sup porting Code Source(s) Document(s ) Phosphate 2.3 mg/dL [place] [[facility]volume[facility] in Serum or Plasma ID Date Data Source [id number] 12/17/2019 06:32:00 AM [facility] Name Value Range Interpretation Description Data Sup porting Code Source(s) Document(s ) Magnesium 1.7 mg/dL [place] [[facility]volume[facility] in Serum or Plasma ID Date Data Source [id number] 12/16/2019 04:20:00 PM [facility] CUT-OFF >= 25 NG/ML.THE FINDINGS [...] rce(s) Supporting Document(s ) PCP (UR) NEGATIVE [facility] ID Date Data Source [id number] 12/16/2019 04:20:00 PM EDT [facility] System CUT-OFF >= 50 NG/ML. Name Value Range Interpretation Code Description Data Bryanna rce(s) Supporting Document(s ) THC (UR) NEGATIVE [place] [facility] ID Date Data Source [id number] 12/16/2019 04:20:00 PM EDT [facility] System CUT-OFF >= 300 NG/ML. Name Value Range Interpretation Description Data Sup porting Code Source(s) Document(s ) OPIATES (UR) NEGATIVE [place] [facility] ID Date Data Source [id number] 12/16/2019 04:20:00 PM EDT [facility] System CUT-OFF >= 300 NG/ML. Name Value Range Interpretation Description Data Sup porting Code Source(s) Document(s ) COCAINE (UR) POSITIVE [place] [facility] ID Date Data Source [id number] 12/16/2019 04:20:00 PM EDT Health System CUT-OFF >= 200 NG/ML. Name Value Range Interpretation Description Data Sup porting Code Source(s) Document(s ) BENZODIAZEPINES NEGATIVE [place] (UR) [facility] ID Date Data Source [id number] 12/16/2019 04:20:00 PM EDT Health System CUT-OFF >= 200 NG/ML. Name Value Range Interpretation Description Data Sup porting Code Source(s) Document(s ) BARBITURATES NEGATIVE [place] (UR) Hospital ID Date Data Source [id number] 12/16/2019 04:20:00 PM EDT Health System CUT-OFF >= 1000 NG/ML. Name Value Range Interpretation Description Data Sup porting Code Source(s) Document(s ) AMPHETAMINES NEGATIVE [place] (UR) Hospital ID Date Data Source [id number] 12/16/2019 01:55:00 PM [facility] THERAPEUTIC RANGES:UNFRACTIONATED HEPARI N THERAPY: 60-90 SECONDSARGATROBAN THERAPY: 49-99 SECONDS Name Value Range Interpretation Description Data Sup porting Code Source(s) Document(s ) aPTT in 33.9 s [place] Platelet poor [facility] plasma by Coagulation assay ID Date Data Source [id number] 12/16/2019 01:55:00 PM [facility] THERAPEUTIC RANGE FOR STANDARD ORALANTIC OAGULANT THERAPY: 2.0-3.0THERAPEUTIC RANGE FOR HIGH DOSE ORALANTICOAGULANT THERAPY (MECHANICAL HEARTVALVE REPLACEMENT): 2.5-3.5 Name Value Range Interpretation Description Data Sup porting Code Source(s) Document(s ) INR in Platelet 1.0 [place] poor plasma by [facility] Coagulation assay ID Date Data Source [id number] [facility] Interpretation Description Data Sup porting Code Source(s) Document(s ) PT panel - 11.8 s [place] Platelet poor [facility] plasma by Coagulation assay ID Date Data Source [id number] 12/16/2019 03:13:00 AM [facility] Name Value Range Interpretation Description Data Sup porting Code Source(s) Document(s ) Mucus PRESENT [place] [Presence] in Hospital Urine sediment by Light microscopy ID Date Data Source [id number] 12/16/2019 03:13:00 AM [facility] Name Value Range Interpretation Description Data Sup porting Code Source(s) Document(s ) Epithelial 3+ [place] cells.[facility] [#/area] in Urine sediment by Microscopy high power field ID Date Data Source [id number] 12/16/2019 03:13:00 AM [facility] Name Value Range Interpretation Description Data Sup porting Code Source(s) Document(s ) Bacteria OCCASIONAL [place] [#/area] in Hospital Urine sediment by Microscopy high power field ID Date Data Source [id number] 12/16/2019 03:13:00 AM EDT [facility] System Name Value Range Interpretation Description Data Sup porting Code Source(s) Document(s ) Erythrocytes 0-3 [place] [#/area] in /[HPF] Hospital Urine sediment by Microscopy high power field ID Date Data Source [id number] 12/16/2019 03:13:00 AM EDT [facility] Name Value Range Interpretation Description Data Sup porting Code Source(s) Document(s ) Leukocytes 10-20 [place] [#/area] in /[HPF] Hospital Urine sediment by Microscopy high power field ID Date Data Source [id number] 12/16/2019 03:13:00 AM EDT [facility] Name Value Range Interpretation Description Data Sup porting Code Source(s) Document(s ) Mucus PRESENT [place] [Presence] in Hospital Urine sediment by Light microscopy ID Date Data Source [id number] 12/16/2019 03:13:00 AM EDT [facility] System Name Value Range Interpretation Description Data Sup porting Code Source(s) Document(s ) Epithelial 3+ [place] [facility] [#/area] in Urine sediment by Microscopy high power field ID Date Data Source [id number] 12/16/2019 03:13:00 AM EDT [facility] System Name Value Range Interpretation Description Data Sup porting Code Source(s) Document(s ) Bacteria OCCASIONAL [place] [#/area] in Hospital Urine sediment by Microscopy high power field ID Date Data Source [id number] 12/16/2019 03:13:00 AM EDT [facility] System Name Value Range Interpretation Description Data Sup porting Code Source(s) Document(s ) Erythrocytes 0-3 [place] [#/area] in /[HPF] Hospital Urine sediment by Microscopy high power field ID Date Data Source [id number] 12/16/2019 03:13:00 AM EDT [facility] System Name Value Range Interpretation Description Data Sup porting Code Source(s) Document(s ) Leukocytes 10-20 [place] [#/area] in /[HPF] Hospital Urine sediment by Microscopy high power field ID Date Data Source [id number] 12/16/2019 [facility] Interpretation Description Data Sup porting Code Source(s) Document(s ) Mucus PRESENT [place] [Presence] in Hospital Urine sediment by Light microscopy ID Date Data Source [id number] [facility]/16[facility] Data Sup porting Code Source(s) Document(s ) Epithelial 3+ [place] [facility] [#/area] in Urine sediment by Microscopy high power field ID Date Data Source [id number] 12/16/2019 [facility] Range Interpretation Description Data Sup porting Code Source(s) Document(s ) Bacteria OCCASIONAL [place] [#/area] in Hospital Urine sediment by Microscopy high power field ID Date Data Source [id number] 12/16/2019 [facility] Range Interpretation Description Data Sup porting Code Source(s) Document(s ) Erythrocytes 0-3 [place] [#/area] in /[HPF] Hospital Urine sediment by Microscopy high power field ID Date Data Source [id number] 12/16/2019 [facility] Range Interpretation Description Data Sup porting Code Source(s) Document(s ) Leukocytes 10-20 [place] [#/area] in /[HPF] Hospital Urine sediment by Microscopy high power field ID Date Data Source [id number] 12/16/2019 [facility] Value Range Interpretation Description Data Sup porting Code Source(s) Document(s ) Mucus PRESENT [place] [Presence] in Hospital Urine sediment by Light microscopy ID Date Data Source [id number] 12/16/2019 03:13:00 AM EDT [facility] Name Value Range Interpretation Description Data Sup porting Code Source(s) Document(s ) Epithelial 3+ [place] [facility] [#/area] in Urine sediment by Microscopy high power field ID Date Data Source [id number] 12/16/2019 03:13:00 AM EDT [facility] Name Value Range Interpretation Description Data Sup porting Code Source(s) Document(s ) Bacteria OCCASIONAL [place] [#/area] in Hospital Urine sediment by Microscopy high power field ID Date Data Source [id number] 12/16/2019 03:13:00 AM EDT [facility] Name Value Range Interpretation Description Data Sup porting Code Source(s) Document(s ) Erythrocytes 0-3 [place] [#/area] in /[HPF] Hospital Urine sediment by Microscopy high power field ID Date Data Source [id number] 12/16/2019 03:13:00 AM EDT [facility] Name Value Range Interpretation Description Data Sup porting Code Source(s) Document(s ) Leukocytes 10-20 [place] [#/area] in /[HPF] Hospital Urine sediment by Microscopy high power field ID Date Data Source [id number] 12/16/2019 03:13:00 AM [facility] Name Value Range Interpretation Code Description Data Supporting Source(s) Document(s ) Leukocyte TRACE [place] esterase Hospital [Presence] in Urine by Test strip ID Date Data Source [id number] 12/16/2019 03:13:00 AM EDT [facility] Name Value Range Interpretation Description Data Sup porting Code Source(s) Document(s ) URINE NEGATIVE [place] NITRITES Hospital ID Date Data Source [id number] 12/16/2019 03:13:00 AM EDT [facility] Name Value Range Interpretation Description Data Sup porting Code Source(s) Document(s ) Erythrocytes NEGATIVE [place] [#/volume] in Hospital Urine by Test strip ID Date Data Source [id number] 12/16/2019 03:13:00 AM EDT [facility] Value Range Interpretation Code Description Data Bryanna rce(s) Supporting Document(s ) Bilirubin. NEGATIVE [place] total Hospital [Presence] in Urine by Test strip ID Date Data Source [id number] 12/16/2019 [facility] Description Data Sup porting Code Source(s) Document(s ) Urobilinogen 0.2 [place] [Units/volume] mg/dL Hospital in Urine by Test strip ID Date Data Source [id number] 12/16/2019 [facility] Interpretation Code Description Data Bryanna rce(s) Supporting Document(s ) Ketones 3+ [place] [Mass/volume Hospital ] in Urine by Test strip ID Date Data Source [id number] 12/16/2019 03:13:00 AM EDT [facility] Value Range Interpretation Code Description Data Bryanna rce(s) Supporting Document(s ) Glucose 3+ [place] [Mass/volume Hospital ] in Urine by Test strip ID Date Data Source [id number] 12/16/2019 03:13:00 AM EDT [place] [facility] Name Value Range Interpretation Description Data Sup porting Code Source(s) Document(s ) Protein NEGATIVE [place] [Presence] Hospital in Urine by Test strip ID Date Data Source [id number] 12/16/2019 03:13:00 AM EDT [facility] Name Value Range Interpretation Code Description Data Bryanna rce(s) Supporting Document(s ) pH of Urine 5.0 [place] by Test Hospital strip ID Date Data Source [id number] 12/16/2019 03:13:00 AM EDT [facility] Name Value Range Interpretation Code Description Data Supporting Source(s) Document(s ) Specific 1.024 [place] gravity of Hospital Urine by Test strip ID Date Data Source [id number] 12/16/2019 [facility] Range Interpretation Description Data Sup porting Code Source(s) Document(s ) Clarity in Urine CLEAR [place] by Refractometry Hospital automated ID Date Data Source [id number] 12/16/2019 [facility] Value Range Interpretation Code Description Data Bryanna rce(s) Supporting Document(s ) Color of YELLOW [place] Urine Hospital ID Date Data Source [id number] 12/16/2019 [facility] Value Range Interpretation Description Data Sup porting Code Source(s) Document(s ) Mucus PRESENT [place] [Presence] in Hospital Urine sediment by Light microscopy ID Date Data Source [id number] 12/16/2019 [facility] Value Range Interpretation Description Data Sup porting Code Source(s) Document(s ) Epithelial 3+ [place] cells.[facility] [#/area] in Urine sediment by Microscopy high power field ID Date Data Source [id number] 12/16/2019 03:13:00 AM EDT [facility] System Name Value Range Interpretation Description Data Sup porting Code Source(s) Document(s ) Bacteria OCCASIONAL [place] [#/area] in Hospital Urine sediment by Microscopy high power field ID Date Data Source [id number] 12/16/2019 03:13:00 AM EDT [facility] Name Value Range Interpretation Description Data Sup porting Code Source(s) Document(s ) Erythrocytes 0-3 [place] [#/area] in /[HPF] Hospital Urine sediment by Microscopy high power field ID Date Data Source [id number] 12/16/2019 03:13:00 AM EDT [facility] Value Range Interpretation Description Data Sup porting Code Source(s) Document(s ) Leukocytes 10-20 [place] [#/area] in /[HPF] Hospital Urine sediment by Microscopy high power field ID Date Data Source [id number] 12/15/2019 10:40:00 PM EDT [facility] Value Range Interpretation Description Data Sup porting Code Source(s) Document(s ) GLUCOSE Notified [address] ID Date Data Source [id number] 12/15/2019 08:15:00 PM EDT [facility] Value Range Interpretation Code Description Data Bryanna rce(s) Supporting Document(s ) ABG MODE Room Air [facility] ID Date Data Source [id number] 12/15/2019 08:15:00 PM EDT [facility] Value Range Interpretation Code Description Data Supporting Source(s) Document(s ) ABG SITE Left Radial [facility] ID Date Data Source [id number] 12/15/2019 08:15:00 PM EDT [facility] Value Range Interpretation Code Description Data Supporting Source(s) Document(s ) ABG SOURCE ARTERIAL [facility] ID Date Data Source [id number] 12/15/2019 08:15:00 PM EDT [facility] System Name Value Range Interpretation Code Description Data Bryanna rce(s) Supporting Document(s ) READ BACK Yes/MD [facility] ID Date Data Source [id number] 12/15/2019 08:15:00 PM EDT [facility] System Name Value Range Interpretation Code Description Data Bryanna rce(s) Supporting Document(s ) NOTE WHO [facility] ID Date Data Source [id number] 12/15/2019 08:15:00 PM EDT [facility] Value Range Interpretation Description Data Sup porting Code Source(s) Document(s ) IONIZED 1.53 [place] CALCIUM mmol/L Hospital ID Date Data Source [id number] 12/15/2019 08:15:00 PM EDT [facility] Value Range Interpretation Code Description Data Supporting Source(s) Document(s ) METHEMOGLOBIN 0.8 % [facility] ID Date Data Source [id number] 12/15/2019 08:15:00 PM EDT [facility] Value Range Interpretation Description Data Sup porting Code Source(s) Document(s ) CARBOXYHEMOGLOBIN 0.6 % [facility] ID Date Data Source [id number] 12/15/2019 08:15:00 PM EDT [facility] Value Range Interpretation Code Description Data Bryanna rce(s) Supporting Document(s ) ABG TEMP 98.0 [facility] System ID Date Data Source [id number] 12/15/2019 08:15:00 PM EDT [facility] Value Range Interpretation Code Description Data Bryanna rce(s) Supporting Document(s ) FIO2 21 % [facility] ID Date Data Source [id number] 12/15/2019 08:15:00 PM EDT [facility] Value Range Interpretation Code Description Data Bryanna rce(s) Supporting Document(s ) ABG BE -13.7 [place] mmol/L Hospital ID Date Data Source [id number] 12/15/2019 08:15:00 PM EDT [facility] Value Range Interpretation Code Description Data Bryanna rce(s) Supporting Document(s ) ABG O2SAT 96 % [facility] ID Date Data Source [id number] 12/15/2019 08:15:00 PM EDT [facility] Value Range Interpretation Code Description Data Bryanna rce(s) Supporting Document(s ) ABG HCO3 11 mmol/L [facility] ID Date Data Source [id number] 12/15/2019 08:15:00 PM EDT [facility] Value Range Interpretation Code Description Data Bryanna rce(s) Supporting Document(s ) ABG PO2 87 mm[Hg] [facility] ID Date Data Source [id number] 12/15/2019 08:15:00 PM EDT [facility] Value Range Interpretation Code Description Data Bryanna rce(s) Supporting Document(s ) ABG PCO2 25 mm[Hg] [facility] ID Date Data Source [id number] 12/15/2019 08:15:00 PM EDT [facility] Value Range Interpretation Code Description Data Bryanna rce(s) Supporting Document(s ) ABG PH 7.28 [facility] ID Date Data Source [id number] 12/15/2019 08:15:00 PM EDT [facility] Value Range Interpretation Code Description Data Bryanna rce(s) Supporting Document(s ) ABG MODE Room Air [place] [facility] ID Date Data Source [id number] 12/15/2019 08:15:00 PM EDT [place] [facility] Name Value Range Interpretation Code Description Data Supporting Source(s) Document(s ) ABG SITE Left Radial [facility] ID Date Data Source [id number] 12/15/2019 08:15:00 PM EDT [place] [facility] Name Value Range Interpretation Code Description Data Supporting Source(s) Document(s ) ABG SOURCE ARTERIAL [facility] ID Date Data Source [id number] 12/15/2019 08:15:00 PM EDT [place] [place] [facility] Name Value Range Interpretation Code Description Data Bryanna rce(s) Supporting Document(s ) JORGE TEST POSITIVE [facility] ID Date Data Source [id number] 12/15/2019 08:15:00 PM EDT [facility] Name Value Range Interpretation Code Description Data Bryanna rce(s) Supporting Document(s ) ABG MODE Room Air [facility] ID Date Data Source [id number] 12/15/2019 08:15:00 PM EDT [facility] Name Value Range Interpretation Code Description Data Supporting Source(s) Document(s ) ABG SITE Left [facility] Hospital ID Date Data Source [id number] 12/15/2019 08:15:00 PM EDT [place] [facility] Name Value Range Interpretation Code Description Data Supporting Source(s) Document(s ) ABG SOURCE ARTERIAL [facility] ID Date Data Source [id number] 12/15/2019 08:15:00 PM EDT [facility] Name Value Range Interpretation Code Description Data Bryanna rce(s) Supporting Document(s ) READ BACK Yes/MD [facility] ID Date Data Source [id number] 12/15/2019 08:15:00 PM EDT [facility] Name Value Range Interpretation Code Description Data Bryanna rce(s) Supporting Document(s ) READ BACK Yes/ [facility] ID Date Data Source [id number] 12/15/2019 08:15:00 PM EDT [facility] Value Range Interpretation Code Description Data Bryanna rce(s) Supporting Document(s ) NOTE WHO [facility] ID Date Data Source [id number] 12/15/2019 08:15:00 PM EDT [facility] Value Range Interpretation Description Data Sup porting Code Source(s) Document(s ) IONIZED 1.53 [place] CALCIUM mmol/L Hospital ID Date Data Source [id number] 12/15/2019 08:15:00 PM EDT [facility] Value Range Interpretation Code Description Data Supporting Source(s) Document(s ) METHEMOGLOBIN 0.8 % [facility] System ID Date Data Source [id number] 12/15/2019 08:15:00 PM EDT [facility] Value Range Interpretation Description Data Sup porting Code Source(s) Document(s ) CARBOXYHEMOGLOBIN 0.6 % [facility] ID Date Data Source [id number] 12/15/2019 08:15:00 PM EDT [facility] Value Range Interpretation Code Description Data Bryanna rce(s) Supporting Document(s ) ABG TEMP 98.0 [facility] System ID Date Data Source [id number] 12/15/2019 08:15:00 PM EDT [facility] Value Range Interpretation Code Description Data Bryanna rce(s) Supporting Document(s ) FIO2 21 % [facility] System ID Date Data Source [id number] 12/15/2019 08:15:00 PM EDT [facility] Value Range Interpretation Code Description Data Bryanna rce(s) Supporting Document(s ) ABG BE -13.7 [place] mmol/L Hospital ID Date Data Source [id number] 12/15/2019 08:15:00 PM EDT [facility] Value Range Interpretation Code Description Data Bryanna rce(s) Supporting Document(s ) ABG O2SAT 96 % [facility] System ID Date Data Source [id number] 12/15/2019 08:15:00 PM EDT [facility] Value Range Interpretation Code Description Data Bryanna rce(s) Supporting Document(s ) ABG HCO3 11 mmol/L [facility] ID Date Data Source [id number] 12/15/2019 08:15:00 PM EDT [facility] Value Range Interpretation Code Description Data Bryanna rce(s) Supporting Document(s ) ABG PO2 87 mm[Hg] [facility] ID Date Data Source [id number] 12/15/2019 08:15:00 PM EDT [facility] Value Range Interpretation Code Description Data Bryanna rce(s) Supporting Document(s ) ABG PCO2 25 mm[Hg] [facility] System ID Date Data Source [id number] 12/15/2019 08:15:00 PM EDT [facility] Value Range Interpretation Code Description Data Bryanna rce(s) Supporting Document(s ) ABG PH 7.28 [facility] System ID Date Data Source [id number] 12/15/2019 08:15:00 PM EDT [facility] Value Range Interpretation Code Description Data Bryanna rce(s) Supporting Document(s ) ABG MODE Room Air [facility] ID Date Data Source [id number] 12/15/2019 08:15:00 PM EDT [facility] System Name Value Range Interpretation Code Description Data Supporting Source(s) Document(s ) ABG SITE Left Radial Health [facility] ID Date Data Source [id number] 12/15/2019 08:15:00 PM EDT [facility] System Name Value Range Interpretation Code Description Data Supporting Source(s) Document(s ) ABG SOURCE ARTERIAL Health System ID Date Data Source [id number] 12/15/2019 08:15:00 PM EDT [facility] System Name Value Range Interpretation Code Description Data Bryanna rce(s) Supporting Document(s ) JORGE TEST POSITIVE Health System ID Date Data Source [id number] 12/15/2019 08:15:00 PM EDT [facility] Value Range Interpretation Code Description Data Bryanna rce(s) Supporting Document(s ) NOTE WHO [facility]LE[facility] ID Date Data Source [id number] 12/15/2019 08:15:00 PM EDT [facility] Value Range Interpretation Description Data Sup porting Code Source(s) Document(s ) IONIZED 1.53 [place] CALCIUM mmol/L Hospital ID Date Data Source [id number] 12/15/2019 08:15:00 PM EDT [facility] Value Range Interpretation Code Description Data Supporting Source(s) Document(s ) METHEMOGLOBIN 0.8 % Health System ID Date Data Source [id number] 12/15/2019 08:15:00 PM EDT [facility] Value Range Interpretation Description Data Sup porting Code Source(s) Document(s ) CARBOXYHEMOGLOBIN 0.6 % Health System ID Date Data Source [id number] 12/15/2019 08:15:00 PM EDT Health System Name Value Range Interpretation Code Description Data Bryanna rce(s) Supporting Document(s ) ABG TEMP 98.0 [facility] System ID Date Data Source [id number] 12/15/2019 08:15:00 PM EDT [facility] Value Range Interpretation Code Description Data Bryanna rce(s) Supporting Document(s ) FIO2 21 % [facility] System ID Date Data Source [id number] 12/15/2019 08:15:00 PM EDT [facility] Value Range Interpretation Code Description Data Bryanna rce(s) Supporting Document(s ) ABG BE -13.7 [place] mmol/L Hospital ID Date Data Source [id number] 12/15/2019 08:15:00 PM EDT [facility] Value Range Interpretation Code Description Data Bryanna rce(s) Supporting Document(s ) ABG O2SAT 96 % [facility] System ID Date Data Source [id number] 12/15/2019 08:15:00 PM EDT [facility] Value Range Interpretation Code Description Data Bryanna rce(s) Supporting Document(s ) ABG HCO3 11 mmol/L Health System ID Date Data Source [id number] 12/15/2019 08:15:00 PM EDT [facility] Value Range Interpretation Code Description Data Bryanna rce(s) Supporting Document(s ) ABG PO2 87 mm[Hg] [facility] System ID Date Data Source [id number] 12/15/2019 08:15:00 PM EDT [facility] Value Range Interpretation Code Description Data Bryanna rce(s) Supporting Document(s ) ABG PCO2 25 mm[Hg] [facility] System ID Date Data Source [id number] 12/15/2019 08:15:00 PM EDT Health System Name Value Range Interpretation Code Description Data Bryanna rce(s) Supporting Document(s ) ABG PH 7.28 [facility] System ID Date Data Source [id number] 12/15/2019 08:15:00 PM EDT [facility] System Name Value Range Interpretation Code Description Data Bryanna rce(s) Supporting Document(s ) ABG MODE Room Air [facility] ID Date Data Source [id number] 12/15/2019 08:15:00 PM EDT [facility] Value Range Interpretation Code Description Data Supporting Source(s) Document(s ) ABG SITE Left Radial [facility] ID Date Data Source [id number] 12/15/2019 08:15:00 PM EDT [facility] Value Range Interpretation Code Description Data Supporting Source(s) Document(s ) ABG SOURCE ARTERIAL Health System ID Date Data Source [id number] 12/15/2019 08:15:00 PM EDT [facility] Value Range Interpretation Code Description Data Bryanna rce(s) Supporting Document(s ) JORGE TEST POSITIVE Health System ID Date Data Source [id number] 12/15/2019 07:47:00 PM EDT [facility] System Name Value Range Interpretation Description Data Sup porting Code Source(s) Document(s ) Ammonia 21 mmol/L [place] [Moles[facility]volum [facility] e] in Plasma ID Date Data Source [id number] 12/15/2019 07:47:00 PM EDT [facility] Value Range Interpretation Description Data Sup porting Code Source(s) Document(s ) Ammonia 21 mmol/L [place] [M[facility] e] in Plasma ID Date Data Source [id number] 12/15/2019 07:47:00 PM EDT [place] [place] [facility] Name Value Range Interpretation Description Data Sup porting Code Source(s) Document(s ) Ammonia 21 mmol/L [place] [Moles[facility]um [facility] e] in Plasma ID Date Data Source [id number] 12/15/2019 07:47:00 PM EDT [place] [place] [facility] Name Value Range Interpretation Description Data Sup porting Code Source(s) Document(s ) Ammonia 21 mmol/L [place] [M[facility] e] in Plasma ID Date Data Source [id number] 12/15/2019 07:47:00 PM EDT [facility] [place] [facility] Name Value Range Interpretation Description Data Sup porting Code Source(s) Document(s ) Ammonia 21 mmol/L [place] [[facility] e] in Plasma ID Date Data Source [id number] 12/15/2019 06:32:00 PM EDT [facility] Name Value Range Interpretation Code Description Data Bryanna rce(s) Supporting Document(s ) Lipase 61 U/L [place] [Enzymatic Hospital activity/vo lume] in Serum or Plasma ID Date Data Source [id number] 12/15/2019 06:32:00 PM EDT [facility] Name Value Range Interpretation Code Description Data Bryanna rce(s) Supporting Document(s ) Lipase 61 U/L [place] [Enzymatic Hospital activity/vo lume] in Serum or Plasma ID Date Data Source [id number] 12/15/2019 06:32:00 PM EDT [facility] Name Value Range Interpretation Code Description Data Supporting Source(s) Document(s ) NUCLEATED RBCS 0.0 % [place] (AUTO Hospital DIFF%)DIS ID Date Data Source [id number] 12/15/2019 06:32:00 PM EDT Health System Name Value Range Interpretation Description Data Sup porting Code Source(s) Document(s ) Differential AUTOMATED [place] cell count Hospital method - Blood ID Date Data Source [id number] [facility] Description Data Sup porting Code Source(s) Document(s ) Immature 0.03 [place] granulocytes 10*3/uL Hospital [#/volume] in Blood by Automated count ID Date Data Source [id number] 12/15/2019 06:32:00 PM EDT [facility] Value Range Interpretation Description Data Sup porting Code Source(s) Document(s ) Basophils 0.02 [place] [#/volume] in 10*3/uL [facility] Blood by Automated count ID Date Data Source [id number] [facility] Data Sup porting Code Source(s) Document(s ) Eosinophils 0.01 [place] [#/volume] in 10*3/uL Hospital Blood by Automated count ID Date Data Source [id number] 12/15/2019 06:32:00 PM [facility] Value Range Interpretation Description Data Sup porting Code Source(s) Document(s ) Monocytes 0.99 [place] [#/volume] in 10*3/uL Hospital Blood by Automated count ID Date Data Source [id number] [facility] Interpretation Description Data Sup porting Code Source(s) Document(s ) Lymphocytes 1.72 [place] [#/volume] in 10*3/uL [facility] Blood by Automated count ID Date Data Source [id number] 12/15/2019 06:32:00 PM EDT [facility] [place] [facility] Name Value Range Interpretation Description Data Sup porting Code Source(s) Document(s ) Neutrophils 6.39 [place] [#/volume] in 10*3/uL Hospital Blood by Automated count ID Date Data Source [id number] 12/15/2019 06:32:00 PM EDT [facility] Value Range Interpretation Description Data Sup porting Code Source(s) Document(s ) Nucleated 0.0 % [place] erythrocytes/10 Hospital 0 leukocytes [Ratio] in Blood by Automated count ID Date Data Source [id number] 12/15/2019 06:32:00 PM EDT [facility] Value Range Interpretation Description Data Sup porting Code Source(s) Document(s ) Immature 0.3 % [place] granulocytes/10 Hospital 0 leukocytes in Blood by Automated count ID Date Data Source [id number] 12/15/2019 06:32:00 PM EDT [facility] Value Range Interpretation Description Data Sup porting Code Source(s) Document(s ) Basophils/100 0.2 % [place] leukocytes in Hospital Blood by Automated count ID Date Data Source [id number] 12/15/2019 06:32:00 PM EDT [facility] Value Range Interpretation Description Data Sup porting Code Source(s) Document(s ) Eosinophils/100 0.1 % [place] leukocytes in Hospital Blood by Automated count ID Date Data Source [id number] 12/15/2019 06:32:00 PM EDT [facility] Value Range Interpretation Description Data Sup porting Code Source(s) Document(s ) Monocytes/100 10.8 % [place] leukocytes in Hospital Blood by Automated count ID Date Data Source [id number] 12/15/2019 06:32:00 PM EDT [facility] Value Range Interpretation Description Data Sup porting Code Source(s) Document(s ) Lymphocytes/10 18.8 % [place] 0 leukocytes Hospital in Blood by Automated count ID Date Data Source [id number] 12/15/2019 06:32:00 PM EDT Health System Name Value Range Interpretation Description Data Sup porting Code Source(s) Document(s ) Neutrophils/10 69.8 % [place] 0 leukocytes Hospital in Blood by Automated count ID Date Data Source [id number] 12/15/2019 06:32:00 PM EDT Health System REFERENCE RANGES: NONE DETECTED <20 MG/DL NONE TO MILD EUPHORIA 20-49 MG/DL MILD EUPHORIA 50-99 MG/DL MODERATE EUPHORIA 100-149 MG/DL INTOXICATION 150-300 MG/DL Name Value Range Interpretation Description Data Sup porting Code Source(s) Document(s ) Ethanol < 20 [place] [Mass/volume mg/dL Hospital ] in Serum or Plasma ID Date Data Source [id number] 12/15/2019 06:32:00 PM [facility] TEST PERFORMED BY [employer] ULTRA SENSITIVE CENTAUR CHEMILUMINESCENCE METHOD. Name Value Range Interpretation Description Data Sup porting Code Source(s) Document(s ) Troponin 0.25 [place] I.cardiac ng/mL Hospital [Mass/volume ] in Serum or Plasma ID Date Data Source [id number] [facility] Interpretation Code Description Data Bryanna rce(s) Supporting Document(s ) Lipase 61 U/L [place] [Enzymatic Hospital activity/vo lume] in Serum or Plasma ID Date Data Source [id number] 12/15/2019 06:32:00 PM [facility] Name Value Range Interpretation Code Description Data Supporting Source(s) Document(s ) NUCLEATED RBCS 0.0 % [place] (AUTO Hospital DIFF%)DIS ID Date Data Source [id number] 12/15/2019 06:32:00 PM EDT Health System Name Value Range Interpretation Description Data Sup porting Code Source(s) Document(s ) Differential AUTOMATED [place] cell count Hospital method - Blood ID Date Data Source [id number] 12/15/2019 06:32:00 PM EDT Health System Name Value Range Interpretation Description Data Sup porting Code Source(s) Document(s ) Immature 0.03 [place] granulocytes 10*3/uL Hospital [#/volume] in Blood by Automated count ID Date Data Source [id number] 12/15/2019 06:32:00 PM EDT [facility] Value Range Interpretation Description Data Sup porting Code Source(s) Document(s ) Basophils 0.02 [place] [#/volume] in 10*3/uL Hospital Blood by Automated count ID Date Data Source [id number] 12/[facility] Interpretation Description Data Sup porting Code Source(s) Document(s ) Eosinophils 0.01 [place] [#/volume] in 10*3/uL Hospital Blood by Automated count ID Date Data Source [id number] 12/15/2019 [facility] Interpretation Description Data Sup porting Code Source(s) Document(s ) Monocytes 0.99 [place] [#/volume] in 10*3/uL Hospital Blood by Automated count ID Date Data Source [id number] 12/15/2019 06:32:00 PM EDT Health System Name Value Range Interpretation Description Data Sup porting Code Source(s) Document(s ) Lymphocytes 1.72 [place] [#/volume] in 10*3/uL Hospital Blood by Automated count ID Date Data Source [id number] 12/15/2019 06:32:00 PM EDT [facility] Value Range Interpretation Description Data Sup porting Code Source(s) Document(s ) Neutrophils 6.39 [place] [#/volume] in 10*3/uL Hospital Blood by Automated count ID Date Data Source [id number] 12/15/2019 06:32:00 PM EDT [facility] Value Range Interpretation Description Data Sup porting Code Source(s) Document(s ) Nucleated 0.0 % [place] erythrocytes/10 Hospital 0 leukocytes [Ratio] in Blood by Automated count ID Date Data Source [id number] 12/15/2019 06:32:00 PM EDT [facility] Value Range Interpretation Description Data Sup porting Code Source(s) Document(s ) Immature 0.3 % [place] granulocytes/10 Hospital 0 leukocytes in Blood by Automated count ID Date Data Source [id number] 12/15/2019 06:32:00 PM EDT [facility] Value Range Interpretation Description Data Sup porting Code Source(s) Document(s ) Basophils/100 0.2 % [place] leukocytes in Hospital Blood by Automated count ID Date Data Source [id number] 12/15/2019 06:32:00 PM EDT [facility] Value Range Interpretation Description Data Sup porting Code Source(s) Document(s ) Eosinophils/100 0.1 % [place] leukocytes in Hospital Blood by Automated count ID Date Data Source [id number] 12/15/2019 06:32:00 PM EDT [facility] Value Range Interpretation Description Data Sup porting Code Source(s) Document(s ) Monocytes/100 10.8 % [place] leukocytes in Hospital Blood by Automated count ID Date Data Source [id number] 12/15/2019 06:32:00 PM EDT [place] [facility] Name Value Range Interpretation Description Data Sup porting Code Source(s) Document(s ) Lymphocytes/10 18.8 % [place] 0 leukocytes Hospital in Blood by Automated count ID Date Data Source [id number] 12/15/2019 06:32:00 PM EDT Health System Name Value Range Interpretation Description Data Sup porting Code Source(s) Document(s ) Neutrophils/10 69.8 % [place] 0 leukocytes Hospital in Blood by Automated count ID Date Data Source [id number] 12/03/2019 12:14:00 PM EDT Health System Manager Energy:AMANDA MCGUIRE Name Value Range Interpretation Description Data Sup porting Code Source(s) Document(s ) Glucose 243 mg/dL [place] [Mass/volume] Hospital in Capillary blood by Glucometer ID Date Data Source [id number] [facility]/03[facility]2019 [facility] Interpretation Description Data Sup porting Code Source(s) Document(s ) GLUCOSE RN Notified [facility] ID Date Data Source [id number] 12/03/2019 07:11:00 AM [facility] NOTIFICATION AND READ BACK OF CRITICAL R ESULTS TO KP KRUSE RN 4E AT 0826 ON 12/03/19 BY Jessica Quinteros.REPORTED CR ITICAL VALUES SHOULD BE INTERPRETED WITHIN CLINICAL CONTEXT. Name Value Range Interpretation Description Data Sup porting Code Source(s) Document(s ) Ammonia 56 mmol/L [place] [Moles/volum Hospital e] in Plasma ID Date Data Source [id number] 12/03/2019 [facility] Value Range Interpretation Description Data Sup porting Code Source(s) Document(s ) Calcium 8.2 mg/dL [place] [Mass/volume Hospital ] in Serum or Plasma ID Date Data Source [id number] 12/03/2019 07:11:00 AM EDT Health System Name Value Range Interpretation Code Description Data Bryanna rce(s) Supporting Document(s ) Urea 11.4 [place] nitrogen/Cre Hospital atinine [Mass Ratio] in Serum or Plasma ID Date Data Source [id number] 12/03/2019 07:11:00 AM EDT Health System Name Value Range Interpretation Description Data Sup porting Code Source(s) Document(s ) Creatinine 0.7 mg/dL [place] [Mass/volume] Hospital in Serum or Plasma ID Date Data Source [id number] 12/03/2019 07:11:00 AM EDT [facility] Value Range Interpretation Description Data Sup porting Code Source(s) Document(s ) Urea nitrogen 8 mg/dL [place] [Mass/volume] Hospital in Serum or Plasma ID Date Data Source [id number] 12/03/2019 07:11:00 AM EDT [facility] Value Range Interpretation Code Description Data Bryanna rce(s) Supporting Document(s ) Anion gap in 13 [place] Serum or [facility] Plasma ID Date Data Source [id number] 12/03/2019 07:11:00 AM EDT Health System Name Value Range Interpretation Description Data Sup porting Code Source(s) Document(s ) Carbon 25 mmol/L [place] dioxide, Hospital total [Moles/volu me] in Serum or Plasma ID Date Data Source [id number] 12/03/2019 07:11:00 AM EDT Health System Name Value Range Interpretation Description Data Sup porting Code Source(s) Document(s ) Chloride 99 mmol/L [place] [Moles/volum Hospital e] in Serum or Plasma ID Date Data Source [id number] 12/03/2019 07:11:00 AM EDT [place] [facility] Name Value Range Interpretation Description Data Sup porting Code Source(s) Document(s ) Potassium 3.8 [place] [Moles/volume mmol/L Hospital ] in Serum or Plasma ID Date Data Source [id number] 12/03/2019 07:11:00 AM EDT [facility] Value Range Interpretation Description Data Sup porting Code Source(s) Document(s ) Sodium 133 mmol/L [place] [Moles/volu Hospital tx] in Serum or Plasma ID Date Data Source [id number] 12/03/2019 07:11:00 AM EDT [facility] Value Range Interpretation Description Data Sup porting Code Source(s) Document(s ) Glucose 353 mg/dL [place] [Mass/volume Hospital ] in Serum or Plasma ID Date Data Source [id number] 12/02/2019 07:56:00 AM EDT [facility] Value Range Interpretation Code Description Data Supporting Source(s) Document(s ) NUCLEATED RBCS 0.0 % [place] (AUTO Hospital DIFF%)DIS ID Date Data Source [id number] 12/02[facility]2019 [facility] Data Sup porting Code Source(s) Document(s ) Differential AUTOMATED [place] cell count Hospital method - Blood ID Date Data Source [id number] 12/02/2019 [facility]56[facility] Interpret[facility] Description Data Sup porting Code Source(s) Document(s ) Immature 0.01 [place] granulocytes 10*3/uL Hospital [#/volume] in Blood by Automated count ID Date Data Source [id number] 12/02/2019 07[facility]56[facility] Description Data Sup porting Code Source(s) Document(s ) Basophils 0.04 [place] [#/volume] in 10*3/uL Hospital Blood by Automated count ID Date Data Source [id number] 12/02/2019 07:56:00 AM EDT Health System Name Value Range Interpretation Description Data Sup porting Code Source(s) Document(s ) Eosinophils 0.12 [place] [#/volume] in 10*3/uL Hospital Blood by Automated count ID Date Data Source [id number] 12/02/2019 07:56:00 AM EDT [facility] Value Range Interpretation Description Data Sup porting Code Source(s) Document(s ) Monocytes 0.51 [place] [#/volume] in 10*3/uL Hospital Blood by Automated count ID Date Data Source [id number] 12/02/2019 07:56:00 AM EDT [facility] Value Range Interpretation Description Data Sup porting Code Source(s) Document(s ) Lymphocytes 1.89 [place] [#/volume] in 10*3/uL Hospital Blood by Automated count ID Date Data Source [id number] 12/02/2019 07:56:00 AM EDT [facility] Value Range Interpretation Description Data Sup porting Code Source(s) Document(s ) Neutrophils 1.81 [place] [#/volume] in 10*3/uL Hospital Blood by Automated count ID Date Data Source [id number] 12/02/2019 07:56:00 AM EDT [facility] Value Range Interpretation Description Data Sup porting Code Source(s) Document(s ) Nucleated 0.0 % [place] erythrocytes/10 Hospital 0 leukocytes [Ratio] in Blood by Automated count ID Date Data Source [id number] 12/02/2019 07:56:00 AM EDT [facility] Value Range Interpretation Description Data Sup porting Code Source(s) Document(s ) Immature 0.2 % [place] granulocytes/10 Hospital 0 leukocytes in Blood by Automated count ID Date Data Source [id number] 12/02/2019 07:56:00 AM EDT [facility] Value Range Interpretation Description Data Sup porting Code Source(s) Document(s ) Basophils/100 0.9 % [place] leukocytes in [facility] Blood by Automated count ID Date Data Source [id number] 12/02/2019 07:56:00 AM EDT [facility] Value Range Interpretation Description Data Sup porting Code Source(s) Document(s ) Eosinophils/100 2.7 % [place] leukocytes in Hospital Blood by Automated count ID Date Data Source [id number] 12/02/2019 07:56:00 AM EDT [facility] Value Range Interpretation Description Data Sup porting Code Source(s) Document(s ) Monocytes/100 11.6 % [place] leukocytes in Hospital Blood by Automated count ID Date Data Source [id number] 12/02/2019 07:56:00 AM EDT [facility] Value Range Interpretation Description Data Sup porting Code Source(s) Document(s ) Lymphocytes/10 43.2 % [place] 0 leukocytes Hospital in Blood by Automated count ID Date Data Source [id number] 12/02/2019 07:56:00 AM EDT [facility] Value Range Interpretation Description Data Sup porting Code Source(s) Document(s ) Neutrophils/10 41.4 % [place] 0 leukocytes Hospital in Blood by Automated count ID Date Data Source [id number] 12/02/2019 07:56:00 AM EDT [facility] Value Range Interpretation Description Data Sup porting Code Source(s) Document(s ) Platelet mean 13.8 fL [place] volume Hospital [Entitic volume] in Blood by Automated count ID Date Data Source [id number] 12/02/2019 07:56:00 AM [facility] Value Range Interpretation Description Data Sup porting Code Source(s) Document(s ) Platelets 143 [place] [#/volume] in 10*3/uL Hospital Blood by Automated count ID Date Data Source [id number] [facility] Interpret[facility] Description Data Sup porting Code Source(s) Document(s ) Erythrocyte 14.3 % [facility] Hospital width [Ratio] by Automated count ID Date Data Source [id number] 12/02/2019 07:56:00 AM [facility] Value Range Interpretation Description Data Sup porting Code Source(s) Document(s ) Erythrocyte mean 34.2 [place] corpuscular g/dL Hospital hemoglobin concentration [Mass/volume] by Automated count ID Date Data Source [id number] 12/02/2019 07:56:00 AM [facility] Value Range Interpretation Description Data Sup porting Code Source(s) Document(s ) Erythrocyte 30.5 pg [facility] corpuscular hemoglobin [Entitic mass] by Automated count ID Date Data Source [id number] 12/02/2019 07:56:00 AM [facility] Value Range Interpretation Description Data Sup porting Code Source(s) Document(s ) Erythrocyte 89.2 fL [facility] corpuscular volume [Entitic volume] by Automated count ID Date Data Source [id number] 12/02/2019 07:56:00 AM [facility] Value Range Interpretation Description Data Sup porting Code Source(s) Document(s ) Hematocrit 34.8 % [place] [Volume Hospital Fraction] of Blood by Automated count ID Date Data Source [id number] 12/02/2019 07:56:00 AM EDT Health System Name Value Range Interpretation Description Data Sup porting Code Source(s) Document(s ) Hemoglobin 11.9 g/dL [place] [Mass/volume] Hospital in Blood ID Date Data Source [id number] 12/02/2019 07:56:00 AM EDT [facility] Value Range Interpretation Description Data Sup porting Code Source(s) Document(s ) Erythrocytes 3.90 [place] [#/volume] in 10*6/uL Hospital Blood by Automated count ID Date Data Source [id number] 12/02/2019 07:56:00 AM EDT Health System Name Value Range Interpretation Description Data Sup porting Code Source(s) Document(s ) Leukocytes 4.4 [place] [#/volume] in 10*3/uL Hospital Blood by Automated count ID Date Data Source [id number] 12/01/2019 07:50:00 AM EDT Health System Name Value Range Interpretation Description Data Sup porting Code Source(s) Document(s ) Aspartate 65 U/L White aminotransferase [place] [Enzymatic Hospital activity/volume] in Serum or Plasma ID Date Data Source [id number] 12/01/2019 07:50:00 AM EDT [facility] Value Range Interpretation Description Data Sup porting Code Source(s) Document(s ) Alanine 38 U/L White aminotransferase [place] [Enzymatic Hospital activity/volume] in Serum or Plasma ID Date Data Source [id number] 12/01/2019 07:50:00 AM EDT Health System Name Value Range Interpretation Description Data Sup porting Code Source(s) Document(s ) Alkaline 69 U/L [place] phosphatase Hospital [Enzymatic activity/volume ] in Serum or Plasma ID Date Data Source [id number] 12/01/2019 07:50:00 AM EDT Health System Name Value Range Interpretation Description Data Sup porting Code Source(s) Document(s ) Bilirubin.t 1.3 mg/dL [facility] [Mass/volum e] in Serum or Plasma ID Date Data Source [id number] [facility] Range Interpretation Code Description Data Bryanna rce(s) Supporting Document(s ) Albumin/Glob 1.1 [place] ulin [Mass Hospital Ratio] in Serum or Plasma ID Date Data Source [id number] 12/01/2019 [facility] Value Range Interpretation Description Data Sup porting Code Source(s) Document(s ) Albumin 3.4 g/dL [place] [Mass/volume Hospital ] in Serum or Plasma ID Date Data Source [id number] 12/01/2019 [facility] Value Range Interpretation Description Data Sup porting Code Source(s) Document(s ) Protein 6.4 g/dL [place] [Mass/volume Hospital ] in Serum or Plasma ID Date Data Source [id number] 11/30/2019 [facility]09[facility] CUT-OFF >= 25 NG/ML.THE FINDINGS OF [...] rce(s) Supporting Document(s ) PCP (UR) NEGATIVE Health System ID Date Data Source [id number] 11/30/2019 05:09:00 PM [facility] CUT-OFF >= 50 NG/ML. Name Value Range Interpretation Code Description Data Bryanna rce(s) Supporting Document(s ) THC (UR) NEGATIVE Health System ID Date Data Source [id number] 11/30/2019 05:09:00 PM EDT Health System CUT-OFF >= 300 NG/ML. Name Value Range Interpretation Description Data Sup porting Code Source(s) Document(s ) OPIATES (UR) NEGATIVE Health System ID Date Data Source [id number] 11/30/2019 05:09:00 PM EDT Health System CUT-OFF >= 300 NG/ML. Name Value Range Interpretation Description Data Sup porting Code Source(s) Document(s ) COCAINE (UR) NEGATIVE Health System ID Date Data Source [id number] 11/30/2019 05:09:00 PM EDT Health System CUT-OFF >= 200 NG/ML. Name Value Range Interpretation Description Data Sup porting Code Source(s) Document(s ) BENZODIAZEPINES NEGATIVE [place] (UR) [facility] ID Date Data Source [id number] 11/30/2019 05:09:00 PM EDT Health System CUT-OFF >= 200 NG/ML. Name Value Range Interpretation Description Data Sup porting Code Source(s) Document(s ) BARBITURATES NEGATIVE [place] (UR) Hospital ID Date Data Source [id number] 11/30/2019 05:09:00 PM EDT Health System CUT-OFF >= 1000 NG/ML. Name Value Range Interpretation Description Data Sup porting Code Source(s) Document(s ) AMPHETAMINES NEGATIVE [place] (UR) Hospital ID Date Data Source [id number] 11/30/2019 05:09:00 PM EDT Health System Name Value Range Interpretation Description Data Sup porting Code Source(s) Document(s ) Leukocyte NEGATIVE [facility] Hospital [Presence] in Urine by Test strip ID Date Data Source [id number] 11/30/2019 05:09:00 PM EDT Health System Name Value Range Interpretation Description Data Sup porting Code Source(s) Document(s ) URINE NEGATIVE [place] NITRITES Hospital ID Date Data Source [id number] 11/30/2019 05:09:00 PM EDT Health System Name Value Range Interpretation Description Data Sup porting Code Source(s) Document(s ) Erythrocytes NEGATIVE [place] [#/volume] in Hospital Urine by Test strip ID Date Data Source [id number] 11/30/2019 05:09:00 PM EDT Health System Name Value Range Interpretation Code Description Data Bryanna rce(s) Supporting Document(s ) Bilirubin. NEGATIVE [place] total Hospital [Presence] in Urine by Test strip ID Date Data Source [id number] 11/30/2019 05:09:00 PM EDT Health System Name Value Range Interpretation Description Data Sup porting Code Source(s) Document(s ) Urobilinogen 1.0 [place] [Units/volume] mg/dL Hospital in Urine by Test strip ID Date Data Source [id number] 11/30/2019 05:09:00 PM EDT Health System Name Value Range Interpretation Description Data Sup porting Code Source(s) Document(s ) Ketones NEGATIVE [place] [Mass/volume Hospital ] in Urine by Test strip ID Date Data Source [id number] 11/30/2019 05:09:00 PM EDT Health System Name Value Range Interpretation Code Description Data Bryanna rce(s) Supporting Document(s ) Glucose TRACE [place] [Mass/volume Hospital ] in Urine by Test strip ID Date Data Source [id number] 11/30/2019 05:09:00 PM [facility] Name Value Range Interpretation Description Data Sup porting Code Source(s) Document(s ) Protein NEGATIVE [place] [Presence] Hospital in Urine by Test strip ID Date Data Source [id number] 11/30/2019 [facility] Value Range Interpretation Code Description Data Bryanna rce(s) Supporting Document(s ) pH of Urine 7.5 [place] by Test Hospital strip ID Date Data Source [id number] 11/30/2019 05:09:00 PM [facility] Name Value Range Interpretation Code Description Data Supporting Source(s) Document(s ) Specific 1.012 [place] gravity of Hospital Urine by Test strip ID Date Data Source [id number] 11/30/2019 05:09:00 PM [facility] Name Value Range Interpretation Description Data Sup porting Code Source(s) Document(s ) Clarity in Urine CLEAR [place] by Refractometry Hospital automated ID Date Data Source [id number] 11/30/2019 05:09:00 PM [facility] Name Value Range Interpretation Code Description Data Bryanna rce(s) Supporting Document(s ) Color of YELLOW [place] Urine Hospital ID Date Data Source [id number] 11/30/2019 03:51:00 PM [facility] THERAPEUTIC RANGES:UNFRACTIONATED HEPARI N THERAPY: 60-90 SECONDSARGATROBAN THERAPY: 49-99 SECONDS Name Value Range Interpretation Description Data Sup porting Code Source(s) Document(s ) aPTT in 28.3 s [place] Platelet poor [facility] plasma by Coagulation assay ID Date Data Source [id number] 11/30/2019 03:51:00 PM [facility] THERAPEUTIC RANGE FOR STANDARD ORALANTIC OAGULANT THERAPY: 2.0-3.0THERAPEUTIC RANGE FOR HIGH DOSE ORALANTICOAGULANT THERAPY (MECHANICAL HEARTVALVE REPLACEMENT): 2.5-3.5 Name Value Range Interpretation Description Data Sup porting Code Source(s) Document(s ) INR in Platelet 1.0 [place] poor plasma by Hospital Coagulation assay ID Date Data Source [id number] 11/30/2019 03:51:00 PM EDT Health System Name Value Range Interpretation Description Data Sup porting Code Source(s) Document(s ) PT panel - 11.8 s [place] Platelet poor [facility] plasma by Coagulation assay ID Date Data Source [id number] 11/30/2019 [facility] Value Range Interpretation Description Data Sup porting Code Source(s) Document(s ) Thyroxine 0.7 ng/dL [place] (T4) [facility] [Mass/volume] in Serum or Plasma ID Date Data Source [id number] 11/30/2019 [facility] Value Range Interpretation Description Data Sup porting Code Source(s) Document(s ) Thyrotropin 2.072 [place] [Units/volume] u[IU]/mL Hospital in Serum or Plasma by Detection limit <= 0.005 mIU/L ID Date Data Source [id number] 11/30/2019 03:36:00 PM [facility] Name Value Range Interpretation Description Data Sup porting Code Source(s) Document(s ) Thyroxine 0.7 ng/dL [place] (T4) [facility] [Mass/volume] in Serum or Plasma ID Date Data Source [id number] 11/30/2019 [facility] Value Range Interpretation Description Data Sup porting Code Source(s) Document(s ) Thyrotropin 2.072 [place] [Units/volume] u[IU]/mL Hospital in Serum or Plasma by Detection limit <= 0.005 mIU/L ID Date Data Source [id number] 11/30/2019 03:36:00 PM [facility] Name Value Range Interpretation Description Data Sup porting Code Source(s) Document(s ) Thyroxine 0.7 ng/dL [place] (T4) [facility] Hospital [Mass/volume] in Serum or Plasma ID Date Data Source [id number] 11/30/2019 03:36:00 PM EDT Health System Name Value Range Interpretation Description Data Sup porting Code Source(s) Document(s ) Thyrotropin 2.072 [place] [Units/volume] u[IU]/mL Hospital in Serum or Plasma by Detection limit <= 0.005 mIU/L ID Date Data Source [id number] 11/30/2019 03:36:00 PM [facility] UNITS ARE IN ml/min/1.73m2.IF PATIENT IS -JORDANIAN, MULTIPLY REPORTED RESULT BY 1.21. Name Value Range Interpretation Description Data Sup porting Code Source(s) Document(s ) Glomerular > 60 [place] filtration mL/min Hospital rate/1.73 sq M.predicted [Volume Rate/Area] in Serum or Plasma by Creatinine-bas ed formula (MDRD) ID Date Data Source [id number] 11/30/2019 02:18:00 PM [facility] TEST RESULT IS A TOTAL [...] Code Source(s) Document(s ) TRICYCLIC < 80 [place] ANTIDEPRESSANT ng/mL Hospital ID Date Data Source [id number] 11/30/2019 02:18:00 PM [facility] REFERENCE RANGES: ANALGESIC: 0.0 - 10.0 MG/DL. ARTHRITIC THERAPY: 15.0 - 30.0 MG/DL. Name Value Range Interpretation Description Data Sup porting Code Source(s) Document(s ) Salicylates < 3.0 [place] [Mass/volume] mg/dL Hospital in Serum or Plasma ID Date Data Source [id number] 11/30/2019 02:18:00 PM [facility] THERAPEUTIC RANGE: 10.0-30.0 UG/MLTOXIC RANGE: 4 HRS AFTER INGESTION >150 UG/ML 12 HRS AFTER INGESTION >35 UG/ML Name Value Range Interpretation Description Data Sup porting Code Source(s) Document(s ) ACETAMINOPHEN < 10.0 [place] ug/mL Hospital ID Date Data Source [id number] 11/30/2019 02:18:00 PM [facility] Name Value Range Interpretation Description Data Sup porting Code Source(s) Document(s ) OSMOLALITY 310 [place] (SERUM) mosm/kg Hospital ID Date Data Source [id number] 11/30/2019 02:18:00 PM [facility] TEST RESULT IS A TOTAL [...] Code Source(s) Document(s ) TRICYCLIC < 80 [place] ANTIDEPRESSANT ng/mL Hospital ID Date Data Source [id number] 11/30/2019 02:18:00 PM [facility] REFERENCE RANGES: ANALGESIC: 0.0 - 10.0 MG/DL. ARTHRITIC THERAPY: 15.0 - 30.0 MG/DL. Name Value Range Interpretation Description Data Sup porting Code Source(s) Document(s ) Salicylates < 3.0 [place] [Mass/volume] mg/dL Hospital in Serum or Plasma ID Date Data Source [id number] 11/30/2019 02:18:00 PM [facility] THERAPEUTIC RANGE: 10.0-30.0 UG/MLTOXIC RANGE: 4 HRS AFTER INGESTION >150 UG/ML 12 HRS AFTER INGESTION >35 UG/ML Name Value Range Interpretation Description Data Sup porting Code Source(s) Document(s ) ACETAMINOPHEN < 10.0 [place] ug/mL Hospital ID Date Data Source [id number] 11/30/2019 02:18:00 PM [facility] Name Value Range Interpretation Description Data Sup porting Code Source(s) Document(s ) OSMOLALITY 310 [place] (SERUM) mosm/kg Hospital ID Date Data Source [id number] 11/30/2019 02:18:00 PM [facility] REFERENCE RANGES: NONE DETECTED <20 MG/DL NONE TO MILD EUPHORIA 20-49 MG/DL MILD EUPHORIA 50-99 MG/DL MODERATE EUPHORIA 100-149 MG/DL INTOXICATION 150-300 MG/DL Name Value Range Interpretation Description Data Sup porting Code Source(s) Document(s ) Ethanol < 20 [place] [Mass/volume mg/dL Hospital ] in Serum or Plasma ID Date Data Source [id number] 11/30/2019 02:18:00 PM [facility] TEST RESULT IS A TOTAL [...] Code Source(s) Document(s ) TRICYCLIC < 80 [place] ANTIDEPRESSANT ng/mL Hospital ID Date Data Source [id number] 11/30/2019 02:18:00 PM [facility] REFERENCE RANGES: ANALGESIC: 0.0 - 10.0 MG/DL. ARTHRITIC THERAPY: 15.0 - 30.0 MG/DL. Name Value Range Interpretation Description Data Sup porting Code Source(s) Document(s ) Salicylates < 3.0 [place] [Mass/volume] mg/dL Hospital in Serum or Plasma ID Date Data Source [id number] 11/30/2019 02:18:00 PM [facility] THERAPEUTIC RANGE: 10.0-30.0 UG/MLTOXIC RANGE: 4 HRS AFTER INGESTION >150 UG/ML 12 HRS AFTER INGESTION >35 UG/ML Name Value Range Interpretation Description Data Sup porting Code Source(s) Document(s ) ACETAMINOPHEN < 10.0 [place] ug/mL Hospital ID Date Data Source [id number] 11/30/2019 02:18:00 PM [facility] TEST PERFORMED BY [employer] ULTRA SENSITIVE CENTAUR CHEMILUMINESCENCE METHOD. Name Value Range Interpretation Description Data Sup porting Code Source(s) Document(s ) Troponin < 0.01 [place] I.cardiac ng/mL Hospital [Mass/volume ] in Serum or Plasma ID Date Data Source [id number] 11/30/2019 02:18:00 PM [facility] Name Value Range Interpretation Description Data Sup porting Code Source(s) Document(s ) OSMOLALITY 310 [place] (SERUM) mosm/kg Hospital ID Date Data Source [id number] 11/30/2019 02:18:00 PM [facility] Name Value Range Interpretation Code Description Data Bryanna rce(s) Supporting Document(s ) Lipase 31 U/L [place] [Enzymatic Hospital activity/vo lume] in Serum or Plasma ID Date Data Source [id number] 11/29/2019 [facility]:03[facility] [employer]:YADIRA HALL Name Value Range Interpretation Description Data Sup porting Code Source(s) Document(s ) Glucose 309 mg/dL [place] [Mass/volume] [facility] in Capillary blood by Glucometer ID Date Data Source [id number] 11/29/2019 [facility] Interpretation Code Description Data Bryanna rce(s) Supporting Document(s ) RBC COMMENT NORMAL Health System ID Date Data Source [id number] 11/29/2019 [facility]:58[facility] Interpretation Description Data Sup porting Code Source(s) Document(s ) Basophils 0.04 [place] [#/volume] in 10*3/uL Hospital Blood by Manual count ID Date Data Source [id number] 11/29/2019 07:58[facility] Interpretation Description Data Sup porting Code Source(s) Document(s ) Basophils/100 1 % [place] leukocytes in Hospital Blood by Manual count ID Date Data Source [id number] 11/29/2019 07:58:[facility] Interpretation Description Data Sup porting Code Source(s) Document(s ) Monocytes/100 15 % [place] leukocytes in Hospital Blood by Manual count ID Date Data Source [id number] 11/29/2019 07:58:00 AM EDT [facility] Value Range Interpretation Description Data Sup porting Code Source(s) Document(s ) Lymphocytes/100 36 % [place] leukocytes in Hospital Blood by Manual count ID Date Data Source [id number] 11/29/2019 [facility] Value Range Interpretation Description Data Sup porting Code Source(s) Document(s ) Neutrophils/100 37 % [place] leukocytes in Hospital Blood by Manual count ID Date Data Source [id number] 11/29/2019 07:58:[facility] NOTIFICATION AND READ BACK OF CRITICAL R ESULTS TO AARON NOEL RN 5F AT 0853 ON 11/29/19 BY Jessica Quinteros.REPORTED CR ITICAL VALUES SHOULD BE INTERPRETED WITHIN CLINICAL CONTEXT. Name Value Range Interpretation Description Data Sup porting Code Source(s) Document(s ) Ammonia 87 mmol/L [place] [Moles/volum Hospital e] in Plasma ID Date Data Source [id number] 11/29/2019 07:58:00 AM EDT Health System Name Value Range Interpretation Description Data Sup porting Code Source(s) Document(s ) Aspartate 36 U/L White aminotransferase [place] [Enzymatic Hospital activity/volume] in Serum or Plasma ID Date Data Source [id number] 11/29/2019 [facility]:58:[facility] Name Value Range Interpretation Description Data Sup porting Code Source(s) Document(s ) Alanine 29 U/L White aminotransferase [place] [Enzymatic Hospital activity/volume] in Serum or Plasma ID Date Data Source [id number] 11/29/2019 07:58:[facility] Name Value Range Interpretation Description Data Sup porting Code Source(s) Document(s ) Alkaline 67 U/L [place] phosphatase Hospital [Enzymatic activity/volume ] in Serum or Plasma ID Date Data Source [id number] 11/29/2019 07:58:[facility] Name Value Range Interpretation Description Data Sup porting Code Source(s) Document(s ) Bilirubin.t 0.8 mg/dL [facility] [Mass/volum e] in Serum or Plasma ID Date Data Source [id number] 11/29/2019 07:58[facility] Name Value Range Interpretation Code Description Data Bryanna rce(s) Supporting Document(s ) Albumin/Glob 1.1 [place] ulin [Mass Hospital Ratio] in Serum or Plasma ID Date Data Source [id number] 11/29/2019 07:58:00 AM [facility] Name Value Range Interpretation Description Data Sup porting Code Source(s) Document(s ) Albumin 3.3 g/dL [place] [Mass/volume Hospital ] in Serum or Plasma ID Date Data Source [id number] 11/29/2019 07:58:00 AM [facility] Name Value Range Interpretation Description Data Sup porting Code Source(s) Document(s ) Protein 6.2 g/dL [place] [Mass/volume Hospital ] in Serum or Plasma ID Date Data Source [id number] 11/29/2019 07:58:00 AM [facility] Name Value Range Interpretation Description Data Sup porting Code Source(s) Document(s ) Calcium 9.3 mg/dL [place] [Mass/volume Hospital ] in Serum or Plasma ID Date Data Source [id number] 11/29/2019 07:58:00 AM [facility] UNITS ARE IN ml/min/1.73m2.IF PATIENT IS -JORDANIAN, MULTIPLY REPORTED RESULT BY 1.21. Name Value Range Interpretation Description Data Sup porting Code Source(s) Document(s ) Glomerular > 60 [place] filtration mL/min Hospital rate/1.73 sq M.predicted [Volume Rate/Area] in Serum or Plasma by Creatinine-bas ed formula (MDRD) ID Date Data Source [id number] 11/29/2019 07:58:00 AM EDT [place] [facility] Name Value Range Interpretation Code Description Data Bryanna rce(s) Supporting Document(s ) Urea 18.8 [place] nitrogen/Cre Hospital atinine [Mass Ratio] in Serum or Plasma ID Date Data Source [id number] 11/29/2019 07:58:00 AM EDT [facility] Name Value Range Interpretation Description Data Sup porting Code Source(s) Document(s ) Creatinine 0.8 mg/dL [facility] [Mass/volume] Hospital in Serum or Plasma ID Date Data Source [id number] 11/29/2019 07:58:00 AM EDT [facility] Name Value Range Interpretation Description Data Sup porting Code Source(s) Document(s ) Urea 15 mg/dL [facility] nitrogen [facility] [Mass/volume ] in Serum or Plasma ID Date Data Source [id number] 11/29/2019 07:58:00 AM EDT [facility] Name Value Range Interpretation Code Description Data Bryanna rce(s) Supporting Document(s ) Anion gap in 9 [facility] Serum or Hospital Plasma ID Date Data Source [id number] 11/29/2019 07:58:00 AM EDT [facility] Name Value Range Interpretation Description Data Sup porting Code Source(s) Document(s ) Carbon 31 mmol/L [facility] dioxide, Hospital total [Moles/volu me] in Serum or Plasma ID Date Data Source [id number] 11/29/2019 07:58:00 AM EDT [facility] Name Value Range Interpretation Description Data Sup porting Code Source(s) Document(s ) Chloride 106 [facility] [Moles/volum mmol/L Hospital e] in Serum or Plasma ID Date Data Source [id number] 11/29/2019 07:58:00 AM EDT [facility] Name Value Range Interpretation Description Data Sup porting Code Source(s) Document(s ) Potassium 5.2 [facility] [Moles/volume mmol/L Hospital ] in Serum or Plasma ID Date Data Source [id number] 11/29/2019 07:58:00 AM EDT [facility] Value Range Interpretation Description Data Sup porting Code Source(s) Document(s ) Sodium 141 mmol/L [facility] [facility] [Moles/volu Hospital tx] in Serum or Plasma ID Date Data Source [id number] 11/29/2019 07:58:00 AM EDT [facility] Value Range Interpretation Description Data Sup porting Code Source(s) Document(s ) Glucose 320 mg/dL [facility] [Mass/volume Hospital ] in Serum or Plasma ID Date Data Source [id number] 11/29/2019 07:58:00 AM EDT [facility] Value Range Interpretation Description Data Sup porting Code Source(s) Document(s ) Manual MANUAL [facility] differential Hospital performed [Presence] in Blood ID Date Data Source [id number] [facility] Description Data Sup porting Code Source(s) Document(s ) Platelet mean 12.7 fL [facility] volume Hospital [Entitic volume] in Blood by Automated count ID Date Data Source [id number] 11/29[facility]2019 [facility] Interpretation Description Data Sup porting Code Source(s) Document(s ) Platelets 140 [place] [facility] [#/volume] in 10*3/uL Hospital Blood by Automated count ID Date Data Source [id number] 11/29/2019 07:58:00 AM EDT [facility] Value Range Interpretation Description Data Sup porting Code Source(s) Document(s ) Erythrocyte 13.5 % [facility] width [Ratio] by Automated count ID Date Data Source [id number] 11/[facility] Interpretation Description Data Sup porting Code Source(s) Document(s ) Erythrocyte mean 34.3 [place] corpuscular g/dL Hospital hemoglobin concentration [Mass/volume] by Automated count ID Date Data Source [id number] 11/29/2019 07:58:00 AM EDT Health System Name Value Range Interpretation Description Data Sup porting Code Source(s) Document(s ) Erythrocyte 30.3 pg [facility] corpuscular hemoglobin [Entitic mass] by Automated count ID Date Data Source [id number] 11/29/2019 07:58:00 AM [facility] THIS TEST RESULT HAS BEEN CONFIRMED BY R EPEAT ANALYSIS. Name Value Range Interpretation Description Data Sup porting Code Source(s) Document(s ) Erythrocyte 88.3 fL [facility] corpuscular volume [Entitic volume] by Automated count ID Date Data Source [id number] 11/29/2019 07:58:00 AM [facility] Value Range Interpretation Description Data Sup porting Code Source(s) Document(s ) Hematocrit 34.7 % [facility] [Volume Hospital Fraction] of Blood by Automated count ID Date Data Source [id number] 11/29/2019 07:58:00 AM [facility] Name Value Range Interpretation Description Data Sup porting Code Source(s) Document(s ) Hemoglobin 11.9 g/dL [place] [Mass/volume] Hospital in Blood ID Date Data Source [id number] 11/29/2019 [facility] Value Range Interpretation Description Data Sup porting Code Source(s) Document(s ) Erythrocytes 3.93 [place] [#/volume] in 10*6/uL Hospital Blood by Automated count ID Date Data Source [id number] 11/29/2019 07:58:00 AM EDT Health System Name Value Range Interpretation Description Data Sup porting Code Source(s) Document(s ) Leukocytes 3.6 [place] [#/volume] in 10*3/uL Hospital Blood by Automated count ID Date Data Source [id number] 11/29/2019 07:58:00 AM EDT Health System Name Value Range Interpretation Description Data Sup porting Code Source(s) Document(s ) Manual MANUAL [place] differential Hospital performed [Presence] in Blood ID Date Data Source [id number] 11/29/2019 07:58:00 AM EDT [facility] Value Range Interpretation Code Description Data Bryanna rce(s) Supporting Document(s ) Cells 100 [facility] [facility] Counted Hospital Total [#] in Blood ID Date Data Source [id number] 11/29/2019 07:58:00 AM EDT [facility] Value Range Interpretation Code Description Data Supporting Source(s) Document(s ) PLATELET NORMAL [facility] [facility] COMMENT Hospital ID Date Data Source [id number] 11/29/2019 07:58:00 AM EDT [facility] Value Range Interpretation Code Description Data Bryanna rce(s) Supporting Document(s ) RBC COMMENT NORMAL [facility] ID Date Data Source [id number] 11/29/2019 07:58:00 AM EDT [facility] Value Range Interpretation Description Data Sup porting Code Source(s) Document(s ) Basophils 0.04 [place] [#/volume] in 10*3/uL Hospital Blood by Manual count ID Date Data Source [id number] 11/29/2019 07:58:00 AM EDT Health System Name Value Range Interpretation Description Data Sup porting Code Source(s) Document(s ) Eosinophils 0.40 [place] [#/volume] in 10*3/uL Hospital Blood by Manual count ID Date Data Source [id number] 11/29/2019 07:58:00 AM EDT Health System Name Value Range Interpretation Description Data Sup porting Code Source(s) Document(s ) Monocytes 0.54 [place] [#/volume] in 10*3/uL Hospital Blood by Manual count ID Date Data Source [id number] 11/29/2019 07:58:00 AM EDT [facility] Value Range Interpretation Description Data Sup porting Code Source(s) Document(s ) Lymphocytes 1.30 [place] [#/volume] in 10*3/uL Hospital Blood by Manual count ID Date Data Source [id number] 11/29/2019 07:58:00 AM EDT Health System Name Value Range Interpretation Description Data Sup porting Code Source(s) Document(s ) Neutrophils 1.33 [place] [#/volume] in 10*3/uL Hospital Blood by Manual count ID Date Data Source [id number] 11/29/2019 07:58:00 AM EDT [facility] System Name Value Range Interpretation Description Data Sup porting Code Source(s) Document(s ) Basophils/100 1 % [place] leukocytes in Hospital Blood by Manual count ID Date Data Source [id number] 11/29/2019 07:58:00 AM EDT [facility] Name Value Range Interpretation Description Data Sup porting Code Source(s) Document(s ) Eosinophils/100 11 % [place] leukocytes in Hospital Blood by Manual count ID Date Data Source [id number] 11/28/2019 08:18:00 AM EDT [facility]UOL[facility] PRESENT Name Value Range Interpretation Code Description Data Supporting Source(s) Document(s ) WBC COMMENT PRESENT Health System ID Date Data Source [id number] 11/28/2019 08:18:00 AM EDT [facility] System Name Value Range Interpretation Code Description Data Bryanna rce(s) Supporting Document(s ) Cells 100 [facility] Hospital Total [#] in Blood ID Date Data Source [id number] 11/28/2019 08:18:00 AM EDT Health System Name Value Range Interpretation Description Data Sup porting Code Source(s) Document(s ) Platelet NORMAL [facility] Comment ID Date Data Source [id number] 11/28/2019 08:18:00 AM EDT [facility] NEUT VACUOLES PRESENT Name Value Range Interpretation Code Description Data Supporting Source(s) Document(s ) WBC COMMENT PRESENT Health System ID Date Data Source [id number] 11/28/2019 08:18:00 AM EDT [facility] Name Value Range Interpretation Code Description Data Bryanna rce(s) Supporting Document(s ) TARGET CELLS [facility] ID Date Data Source [id number] 11/28/2019 08:18:00 AM EDT [facility] System Name Value Range Interpretation Description Data Sup porting Code Source(s) Document(s ) POIKILOCYTOSIS [facility] ID Date Data Source [id number] 11/[facility] Value Range Interpretation Description Data Sup porting Code Source(s) Document(s ) Eosinophils 0.27 [place] [#/volume] in 10*3/uL Hospital Blood by Manual count ID Date Data Source [id number] 11/28/2019 08:18:00 AM EDT Health System Name Value Range Interpretation Description Data Sup porting Code Source(s) Document(s ) Monocytes 0.30 [place] [#/volume] in 10*3/uL Hospital Blood by Manual count ID Date Data Source [id number] 11/28/2019 08:18:00 AM EDT Health System Name Value Range Interpretation Description Data Sup porting Code Source(s) Document(s ) Lymphocytes 1.71 [place] [#/volume] in 10*3/uL Hospital Blood by Manual count ID Date Data Source [id number] 11/28/2019 08:18:00 AM EDT [facility] Value Range Interpretation Description Data Sup porting Code Source(s) Document(s ) Neutrophils 1.52 [place] [#/volume] in 10*3/uL Hospital Blood by Manual count ID Date Data Source [id number] 11/28/2019 08:18:00 AM EDT [facility] Value Range Interpretation Description Data Sup porting Code Source(s) Document(s ) Eosinophils/100 7 % [place] leukocytes in Hospital Blood by Manual count ID Date Data Source [id number] 11/28/2019 08:18:00 AM EDT [facility] Value Range Interpretation Description Data Sup porting Code Source(s) Document(s ) Monocytes/100 8 % [place] leukocytes in Hospital Blood by Manual count ID Date Data Source [id number] 11/28/2019 08:18:00 AM EDT [facility] Value Range Interpretation Description Data Sup porting Code Source(s) Document(s ) Lymphocytes/100 45 % [place] leukocytes in Hospital Blood by Manual count ID Date Data Source [id number] 11/28/2019 08:18:00 AM EDT [facility] Name Value Range Interpretation Description Data Sup porting Code Source(s) Document(s ) Neutrophils/100 40 % [place] leukocytes in Hospital Blood by Manual count ID Date Data Source [id number] 11/28/2019 08:18:00 AM EDT [facility] NEUT VACUOLES PRESENT Name Value Range Interpretation Code Description Data Supporting Source(s) Document(s ) WBC COMMENT PRESENT Health System ID Date Data Source [id number] 11/28/2019 08:18:00 AM EDT [facility] System Name Value Range Interpretation Code Description Data Bryanna rce(s) Supporting Document(s ) TARGET CELLS [facility] ID Date Data Source [id number] 11/28/2019 08:18:00 AM EDT [facility] Value Range Interpretation Description Data Sup porting Code Source(s) Document(s ) POIKILOCYTOSIS [facility]CC [facility] ID Date Data Source [id number] 11/27/2019 09:23:00 PM EDT [facility] System Name Value Range Interpretation Description Data Sup porting Code Source(s) Document(s ) GLUCOSE RN Notified [facility] Hospital ID Date Data Source [id number] 11/27/2019 08:25:00 AM EDT [facility] System Name Value Range Interpretation Description Data Sup porting Code Source(s) Document(s ) Bilirubin.d 0.3 mg/dL [facility] Hospital [Mass/volum e] in Serum or Plasma ID Date Data Source [id number] 11/27/2019 08:25:00 AM EDT [facility] System Name Value Range Interpretation Description Data Sup porting Code Source(s) Document(s ) Phosphate 4.5 mg/dL [place] [Mass/volume] Hospital in Serum or Plasma ID Date Data Source [id number] 11/27/2019 08:25:00 AM EDT [facility] System Name Value Range Interpretation Description Data Sup porting Code Source(s) Document(s ) Magnesium 1.9 mg/dL [place] [Mass/volume] Hospital in Serum or Plasma ID Date Data Source [id number] 11/27/2019 08:25:00 AM EDT [facility] System Name Value Range Interpretation Description Data Sup porting Code Source(s) Document(s ) Bilirubin.d 0.3 mg/dL [facility] Hospital [Mass/volum e] in Serum or Plasma ID Date Data Source [id number] 11/27/2019 08:25:00 AM EDT [facility] System Name Value Range Interpretation Code Description Data Supporting Source(s) Document(s ) NUCLEATED RBCS 0.0 % [facility] (AUTO Hospital DIFF%)DIS ID Date Data Source [id number] 11/27/2019 08:25:00 AM EDT [facility] System Name Value Range Interpretation Description Data Sup porting Code Source(s) Document(s ) Differential AUTOMATED [place] cell count Hospital method - Blood ID Date Data Source [id number] 11/[facility] Range Interpretation Description Data Sup porting Code Source(s) Document(s ) Immature 0.01 [place] granulocytes 10*3/uL Hospital [#/volume] in Blood by Automated count ID Date Data Source [id number] 11/27/2019 08:25:00 AM EDT [facility] System Name Value Range Interpretation Description Data Sup porting Code Source(s) Document(s ) Basophils 0.04 [place] [#/volume] in 10*3/uL Hospital Blood by Automated count ID Date Data Source [id number] 11/27/2019 08:25:00 AM EDT Health System Name Value Range Interpretation Description Data Sup porting Code Source(s) Document(s ) Eosinophils 0.11 [place] [#/volume] in 10*3/uL Hospital Blood by Automated count ID Date Data Source [id number] 11/27/2019 08:25:00 AM EDT [facility] Value Range Interpretation Description Data Sup porting Code Source(s) Document(s ) Monocytes 0.51 [place] [#/volume] in 10*3/uL Hospital Blood by Automated count ID Date Data Source [id number] 11/27/2019 08:25:00 AM EDT [facility] Value Range Interpretation Description Data Sup porting Code Source(s) Document(s ) Lymphocytes 2.18 [place] [#/volume] in 10*3/uL Hospital Blood by Automated count ID Date Data Source [id number] 11/27/2019 08:25:00 AM EDT [facility] Value Range Interpretation Description Data Sup porting Code Source(s) Document(s ) Neutrophils 1.65 [place] [#/volume] in 10*3/uL Hospital Blood by Automated count ID Date Data Source [id number] 11/27/2019 08:25:00 AM EDT [facility] Value Range Interpretation Description Data Sup porting Code Source(s) Document(s ) Nucleated 0.0 % [place] erythrocytes/10 Hospital 0 leukocytes [Ratio] in Blood by Automated count ID Date Data Source [id number] 11/27/2019 08:25:00 AM EDT [facility] Value Range Interpretation Description Data Sup porting Code Source(s) Document(s ) Immature 0.2 % [place] granulocytes/10 Hospital 0 leukocytes in Blood by Automated count ID Date Data Source [id number] 11/27/2019 08:25:00 AM EDT [facility] Name Value Range Interpretation Description Data Sup porting Code Source(s) Document(s ) Basophils/100 0.9 % [place] leukocytes in Hospital Blood by Automated count ID Date Data Source [id number] 11/27/2019 08:25:00 AM EDT Health System Name Value Range Interpretation Description Data Sup porting Code Source(s) Document(s ) Eosinophils/100 2.4 % [place] leukocytes in Hospital Blood by Automated count ID Date Data Source [id number] 11/27/2019 08:25:00 AM EDT Health System Name Value Range Interpretation Description Data Sup porting Code Source(s) Document(s ) Monocytes/100 11.3 % [place] leukocytes in Hospital Blood by Automated count ID Date Data Source [id number] 11/27/2019 08:25:00 AM EDT Health System Name Value Range Interpretation Description Data Sup porting Code Source(s) Document(s ) Lymphocytes/10 48.4 % [place] 0 leukocytes Hospital in Blood by Automated count ID Date Data Source [id number] 11/27/2019 08:25:00 AM EDT [facility] Value Range Interpretation Description Data Sup porting Code Source(s) Document(s ) Neutrophils/10 36.8 % [place] 0 leukocytes Hospital in Blood by Automated count ID Date Data Source [id number] 11/27/2019 08:25:00 AM EDT Health System Name Value Range Interpretation Description Data Sup porting Code Source(s) Document(s ) Phosphate 4.5 mg/dL [place] [Mass/volume] Hospital in Serum or Plasma ID Date Data Source [id number] 11/27/2019 08:25:00 AM EDT Health System Name Value Range Interpretation Description Data Sup porting Code Source(s) Document(s ) Magnesium 1.9 mg/dL [place] [Mass/volume] Hospital in Serum or Plasma ID Date Data Source [id number] 11/27/2019 08:25:00 AM [facility] Name Value Range Interpretation Description Data Sup porting Code Source(s) Document(s ) Bilirubin.d 0.3 mg/dL [facility] Hospital [Mass/volum e] in Serum or Plasma ID Date Data Source [id number] 11/26/2019 12:00:00 AM [facility] REFERENCE RANGES: NONE DETECTED <20 MG/DL NONE TO MILD EUPHORIA 20-49 MG/DL MILD EUPHORIA 50-99 MG/DL MODERATE EUPHORIA 100-149 MG/DL INTOXICATION 150-300 MG/DL Name Value Range Interpretation Description Data Sup porting Code Source(s) Document(s ) Ethanol < 20 [place] [Mass/volume mg/dL Hospital ] in Serum or Plasma ID Date Data Source [id number] 11/21/2019 02:23:00 AM [facility] NOTIFICATION AND READ BACK OF CRITICAL R ESULTS TO Jesse Mckeon RN 3F AT 0255 ON 11/21/19 BY Ronn Salinas.REPORTED CRITICAL VALUES SHOULD BE INTERPRETED WITHIN CLINICAL CONTEXT. Name Value Range Interpretation Description Data Sup porting Code Source(s) Document(s ) Lactate 2.9 [place] [Moles/volum mmol/L Hospital e] in Serum or Plasma ID Date Data Source [id number] 11/21/2019 02:23:00 AM [facility] NOTIFICATION AND READ BACK OF CRITICAL R ESULTS TO Jesse Mckeon RN 3F AT 0255 ON 11/21/19 BY Ronn Salinas.REPORTED CRITICAL VALUES SHOULD BE INTERPRETED WITHIN CLINICAL CONTEXT. Name Value Range Interpretation Description Data Sup porting Code Source(s) Document(s ) Lactate 2.9 [place] [Moles/volum mmol/L Hospital e] in Serum or Plasma ID Date Data Source [id number] 11/21/2019 02:23:00 AM [facility] NOTIFICATION AND READ BACK OF CRITICAL R ESULTS TO Jesse Mckeon RN 3F AT 0255 ON 11/21/19 BY Ronngilda Salinas.REPORTED CRITICAL VALUES SHOULD BE INTERPRETED WITHIN CLINICAL CONTEXT. Name Value Range Interpretation Description Data Sup porting Code Source(s) Document(s ) Lactate 2.9 [place] [Moles/volum mmol/L Hospital e] in Serum or Plasma ID Date Data Source [id number] 11/20/2019 09:54:00 PM [facility] ADA RECOMMENDATIONS: NON-DIABETES: 4.0-6.0% CONTROLLED DIABETES: 6.0-8.0% UNCONTROLLED DIABETE S: UP TO 20%RECOMMENDED ADA RESULT FOR THERAPY: HEMOGLOBIN A1C RESULT LESS GM N 7%.NOTE: METHOD CHANGE EFFECTIVE 11/11/14. Name Value Range Interpretation Description Data Sup porting Code Source(s) Document(s ) Hemoglobin 11.2 % [place] A1c/Hemoglobin [facility] .total in Blood ID Date Data Source [id number] 11/20/2019 09:54:00 PM [facility] ADA RECOMMENDATIONS: NON-DIABETES: 4.0-6.0% CONTROLLED DIABETES: 6.0-8.0% UNCONTROLLED DIABETE S: UP TO 20%RECOMMENDED ADA RESULT FOR THERAPY: HEMOGLOBIN A1C RESULT LESS GM N 7%.NOTE: METHOD CHANGE EFFECTIVE 11/11/14. Name Value Range Interpretation Description Data Sup porting Code Source(s) Document(s ) Hemoglobin 11.2 % [place] A1c/Hemoglobin Hospital .total in Blood ID Date Data Source [id number] 11/20/2019 09:54:00 PM [facility] TEST PERFORMED BY [employer] ULTRA SENSITIVE CENTAUR CHEMILUMINESCENCE METHOD. Name Value Range Interpretation Description Data Sup porting Code Source(s) Document(s ) Troponin 0.02 [place] I.cardiac ng/mL Hospital [Mass/volume ] in Serum or Plasma ID Date Data Source [id number] 11/[facility]2019 [facility]IC RANGES:UNFRACTIONATED HEPARI N THERAPY: 60-90 SECONDSARGATROBAN THERAPY: 49-99 SECONDS Name Value Range Interpretation Description Data Sup porting Code Source(s) Document(s ) aPTT in 29.6 s [place] Platelet poor [facility] plasma by Coagulation assay ID Date Data Source [id number] 11/20/2019 09:54:00 PM [facility] THERAPEUTIC RANGE FOR STANDARD ORALANTIC OAGULANT THERAPY: 2.0-3.0THERAPEUTIC RANGE FOR HIGH DOSE ORALANTICOAGULANT THERAPY (MECHANICAL HEARTVALVE REPLACEMENT): 2.5-3.5 Name Value Range Interpretation Description Data Sup porting Code Source(s) Document(s ) INR in Platelet 0.9 [place] poor plasma by Hospital Coagulation assay ID Date Data Source [id number] 11/20/2019 09:54:00 PM [facility] Name Value Range Interpretation Description Data Sup porting Code Source(s) Document(s ) PT panel - 11.1 s [place] Platelet poor [facility] plasma by Coagulation assay ID Date Data Source [id number] 11/20/2019 09:54:00 PM [facility] ADA RECOMMENDATIONS: NON-DIABETES: 4.0-6.0% CONTROLLED DIABETES: 6.0-8.0% UNCONTROLLED DIABETE S: UP TO 20%RECOMMENDED ADA RESULT FOR THERAPY: HEMOGLOBIN A1C RESULT LESS GM N 7%.NOTE: METHOD CHANGE EFFECTIVE 11/11/14. Name Value Range Interpretation Description Data Sup porting Code Source(s) Document(s ) Hemoglobin 11.2 % [place] A1c/Hemoglobin [facility] .total in Blood ID Date Data Source [id number] 11/20/2019 08:15:00 PM [facility] Name Value Range Interpretation Code Description Data Bryanna rce(s) Supporting Document(s ) READ BACK Yes/ Health System ID Date Data Source [id number] 11/20/2019 08:15:00 PM EDT [facility] Name Value Range Interpretation Code Description Data Bryanna rce(s) Supporting Document(s ) NOTE [facility] ID Date Data Source [id number] 11/20/2019 08:15:00 PM EDT [facility] Name Value Range Interpretation Description Data Sup porting Code Source(s) Document(s ) IONIZED 1.10 [place] CALCIUM mmol/L Hospital ID Date Data Source [id number] 11/20/2019 08:15:00 PM EDT [facility] QUES Name Value Range Interpretation Code Description Data Supporting Source(s) Document(s ) METHEMOGLOBIN % [facility] System ID Date Data Source [id number] 11/20/2019 08:15:00 PM EDT [facility] QUES Name Value Range Interpretation Description Data Sup porting Code Source(s) Document(s ) CARBOXYHEMOGLOBIN % [facility] System ID Date Data Source [id number] 11/20/2019 08:15:00 PM EDT [facility] Name Value Range Interpretation Code Description Data Bryanna rce(s) Supporting Document(s ) ABG TEMP 98.0 [facility] ID Date Data Source [id number] 11/20/2019 08:15:00 PM EDT [facility] Name Value Range Interpretation Code Description Data Bryanna rce(s) Supporting Document(s ) FIO2 21 % [facility] ID Date Data Source [id number] 11/20/2019 08:15:00 PM EDT [facility] Name Value Range Interpretation Code Description Data Bryanna rce(s) Supporting Document(s ) ABG BE -8.3 mmol/L [facility] ID Date Data Source [id number] 11/20/2019 08:15:00 PM EDT [facility] Value Range Interpretation Code Description Data Bryanna rce(s) Supporting Document(s ) ABG HCO3 18 mmol/L [facility] ID Date Data Source [id number] 11/20/2019 08:15:00 PM EDT [facility] Value Range Interpretation Code Description Data Bryanna rce(s) Supporting Document(s ) ABG PO2 18 mm[Hg] [facility] ID Date Data Source [id number] 11/20/2019 08:15:00 PM EDT [facility] Value Range Interpretation Code Description Data Bryanna rce(s) Supporting Document(s ) ABG PCO2 41 mm[Hg] [facility] ID Date Data Source [id number] 11/20/2019 08:15:00 PM EDT [facility] Value Range Interpretation Code Description Data Bryanna rce(s) Supporting Document(s ) ABG PH 7.27 [facility] ID Date Data Source [id number] 11/20/2019 08:15:00 PM EDT [facility] Value Range Interpretation Code Description Data Bryanna rce(s) Supporting Document(s ) JORGE TEST POSITIVE [facility] ID Date Data Source [id number] 11/20/2019 08:15:00 PM EDT [facility] Value Range Interpretation Code Description Data Bryanna rce(s) Supporting Document(s ) READ BACK Yes/ [facility] System ID Date Data Source [id number] 11/20/2019 08:15:00 PM EDT [facility] Value Range Interpretation Code Description Data Bryanna rce(s) Supporting Document(s ) NOTE [facility] ID Date Data Source [id number] 11/20/2019 08:15:00 PM EDT [facility] Name Value Range Interpretation Description Data Sup porting Code Source(s) Document(s ) IONIZED 1.10 [place] CALCIUM mmol/L Hospital ID Date Data Source [id number] 11/20/2019 08:15:00 PM EDT [facility] Name Value Range Interpretation Code Description Data Supporting Source(s) Document(s ) METHEMOGLOBIN % [facility] ID Date Data Source [id number] 11/20/2019 08:15:00 PM EDT [facility] Name Value Range Interpretation Description Data Sup porting Code Source(s) Document(s ) CARBOXYHEMOGLOBIN % [facility] ID Date Data Source [id number] 11/20/2019 08:15:00 PM EDT [facility] Name Value Range Interpretation Code Description Data Bryanna rce(s) Supporting Document(s ) ABG TEMP 98.0 [facility] ID Date Data Source [id number] 11/20/2019 08:15:00 PM EDT [facility] Value Range Interpretation Code Description Data Bryanna rce(s) Supporting Document(s ) FIO2 21 % [facility] ID Date Data Source [id number] 11/20/2019 08:15:00 PM EDT [facility] Name Value Range Interpretation Code Description Data Bryanna rce(s) Supporting Document(s ) ABG BE -8.3 mmol/L [facility] ID Date Data Source [id number] 11/20/2019 08:15:00 PM EDT [facility] Value Range Interpretation Code Description Data Bryanna rce(s) Supporting Document(s ) ABG HCO3 18 mmol/L [facility] ID Date Data Source [id number] 11/20/2019 08:15:00 PM EDT [facility] Name Value Range Interpretation Code Description Data Bryanna rce(s) Supporting Document(s ) ABG PO2 18 mm[Hg] [facility] ID Date Data Source [id number] 11/20/2019 08:15:00 PM EDT [facility] Name Value Range Interpretation Code Description Data Bryanna rce(s) Supporting Document(s ) ABG PCO2 41 mm[Hg] [facility] ID Date Data Source [id number] 11/20/2019 08:15:00 PM EDT [facility] Value Range Interpretation Code Description Data Bryanna rce(s) Supporting Document(s ) ABG PH 7.27 [facility] ID Date Data Source [id number] 11/20/2019 08:15:00 PM EDT [facility] Value Range Interpretation Code Description Data Bryanna rce(s) Supporting Document(s ) JORGE TEST POSITIVE [facility] ID Date Data Source [id number] 11/20/2019 09:39:00 AM EDT [facility] Value Range Interpretation Description Data Sup porting Code Source(s) Document(s ) Leukocyte NEGATIVE [place] esterase [facility] [Presence] in Urine by Test strip ID Date Data Source [id number] 11/20/2019 09:39:00 AM EDT [facility] Value Range Interpretation Description Data Sup porting Code Source(s) Document(s ) URINE NEGATIVE [place] NITRITE Hospital ID Date Data Source [id number] 11/20/2019 09:39:00 AM EDT [facility] Value Range Interpretation Description Data Sup porting Code Source(s) Document(s ) Erythrocytes NEGATIVE [place] [#/volume] in Hospital Urine by Test strip ID Date Data Source [id number] 11/20/2019 09:39:00 AM EDT [facility] Name Value Range Interpretation Code Description Data Bryanna rce(s) Supporting Document(s ) Bilirubin. NEGATIVE [place] total Hospital [Presence] in Urine by Test strip ID Date Data Source [id number] 11/20/2019 09:39:00 AM EDT [facility] Name Value Range Interpretation Description Data Sup porting Code Source(s) Document(s ) Urobilinogen 1.0 [place] [Units/volume] mg/dL Hospital in Urine by Test strip ID Date Data Source [id number] 11/20/2019 09:39:00 AM EDT [facility] Value Range Interpretation Description Data Sup porting Code Source(s) Document(s ) Ketones NEGATIVE [place] [Mass/volume Hospital ] in Urine by Test strip ID Date Data Source [id number] 11/20/2019 09:39:00 AM EDT [facility] Value Range Interpretation Code Description Data Bryanna rce(s) Supporting Document(s ) Glucose 3+ [place] [Mass/volume Hospital ] in Urine by Test strip ID Date Data Source [id number] 11/20/2019 09:39:00 AM EDT [facility] Name Value Range Interpretation Description Data Sup porting Code Source(s) Document(s ) Protein NEGATIVE [place] [Presence] Hospital in Urine by Test strip ID Date Data Source [id number] 11/20/2019 09:39:00 AM EDT [facility] Value Range Interpretation Code Description Data Bryanna rce(s) Supporting Document(s ) pH of Urine 6.0 [place] by Test Hospital strip ID Date Data Source [id number] 11/20/2019 09:39:00 AM [facility] Name Value Range Interpretation Code Description Data Supporting Source(s) Document(s ) Specific 1.029 [place] gravity of Hospital Urine by Test strip ID Date Data Source [id number] 11/20/2019 09:39:00 AM [facility] Name Value Range Interpretation Description Data Sup porting Code Source(s) Document(s ) Clarity in Urine CLEAR [place] by Refractometry Hospital automated ID Date Data Source [id number] 11/20/2019 09:39:00 AM [facility] Name Value Range Interpretation Code Description Data Bryanna rce(s) Supporting Document(s ) Color of YELLOW [place] Urine Hospital ID Date Data Source [id number] 10/26/2019 05:07:00 AM [facility] Name Value Range Interpretation Description Data Sup porting Code Source(s) Document(s ) Arthropoda CIM[facility] (BED BUG) Hospital ID Date Data Source [id number] 10/26/2019 03:50:00 AM [facility] TEST PERFORMED BY [employer] [facility] ULTRA SENSITIVE [facility] CHEMILUMINESCENCE METHOD. Name Value Range Interpretation Description Data Sup porting Code Source(s) Document(s ) Troponin < 0.01 [place] I.cardiac ng/mL Hospital [Mass/volume ] in Serum or Plasma ID Date Data Source [id number] 10/26/2019 03:50:00 AM [facility] NOTIFICATION AND READ BACK OF CRITICAL R ESULTS TO OF AT 0441 ON 10/26/19 BY Jeri Iraheta.REPORTED CRITICAL VALUES SHOULD BE INTERPRETED WITHIN CLINICAL CONTEXT. Name Value Range Interpretation Description Data Sup porting Code Source(s) Document(s ) Ammonia 56 mmol/L [place] [Moles/volum Hospital e] in Plasma ID Date Data Source [id number] 10/26/2019 03:50:00 AM EDT [facility] Name Value Range Interpretation Description Data Sup porting Code Source(s) Document(s ) Aspartate 136 U/L [facility] aminotransferase [place] [Enzymatic Hospital activity/volume] in Serum or Plasma ID Date Data Source [id number] 10/26/2019 03:50:00 AM EDT [facility] Name Value Range Interpretation Description Data Sup porting Code Source(s) Document(s ) Alanine 48 U/L [facility] aminotransferase [place] [Enzymatic Hospital activity/volume] in Serum or Plasma ID Date Data Source [id number] 10/26/2019 03:50:00 AM EDT [facility] Name Value Range Interpretation Description Data Sup porting Code Source(s) Document(s ) Alkaline 71 U/L [place] phosphatase Hospital [Enzymatic activity/volume ] in Serum or Plasma ID Date Data Source [id number] 10/26/2019 03:50:00 AM EDT [facility] Name Value Range Interpretation Description Data Sup porting Code Source(s) Document(s ) Bilirubin.t 1.0 mg/dL [facility] [Mass/volum e] in Serum or Plasma ID Date Data Source [id number] 10/26/2019 03:50:00 AM EDT [facility] Name Value Range Interpretation Code Description Data Bryanna rce(s) Supporting Document(s ) Albumin/Glob 1.5 [place] ulin [Mass Hospital Ratio] in Serum or Plasma ID Date Data Source [id number] [facility] Interpretation Description Data Sup porting Code Source(s) Document(s ) Albumin 4.5 g/dL [place] [Mass/volume Hospital ] in Serum or Plasma ID Date Data Source [id number] 10/26/2019 03:50:00 AM EDT [place] [facility] Name Value Range Interpretation Description Data Sup porting Code Source(s) Document(s ) Protein 7.6 g/dL [place] [Mass/volume Hospital ] in Serum or Plasma ID Date Data Source [id number] 10/26/2019 03:50:00 AM EDT [place] [facility] Name Value Range Interpretation Description Data Sup porting Code Source(s) Document(s ) Calcium 8.8 mg/dL [place] [Mass/volume Hospital ] in Serum or Plasma ID Date Data Source [id number] 10/26/2019 03:50:00 AM EDT [place] [facility] Name Value Range Interpretation Code Description Data Braynna rce(s) Supporting Document(s ) Urea 11.1 [place] nitrogen/Cre Hospital atinine [Mass Ratio] in Serum or Plasma ID Date Data Source [id number] 10/26/2019 03:50:00 AM EDT [place] [facility] Name Value Range Interpretation Description Data Sup porting Code Source(s) Document(s ) Creatinine 0.9 mg/dL [place] [Mass/volume] Hospital in Serum or Plasma ID Date Data Source [id number] 10/26/2019 03:50:00 AM EDT [place] [place] [facility] Name Value Range Interpretation Description Data Sup porting Code Source(s) Document(s ) Urea 10 mg/dL [place] nitrogen Hospital [Mass/volume ] in Serum or Plasma ID Date Data Source [id number] 10/26/2019 03:50:00 AM EDT [place] [facility] Name Value Range Interpretation Description Data Sup porting Code Source(s) Document(s ) Carbon 26 mmol/L [place] dioxide, Hospital total [Moles/volu me] in Serum or Plasma ID Date Data Source [id number] 10/26/2019 03:50:00 AM EDT [facility] Name Value Range Interpretation Description Data Sup porting Code Source(s) Document(s ) Chloride 99 mmol/L [place] [Moles/volum Hospital e] in Serum or Plasma ID Date Data Source [id number] 10/26/2019 03:50:00 AM EDT [facility]OS[facility]OLYS[facility] Name Value Range Interpretation Description Data Sup porting Code Source(s) Document(s ) Potassium mmol/L [place] [Moles/volume] Hospital in Serum or Plasma ID Date Data Source [id number] 10/26/2019 03:50:00 AM EDT [facility] Name Value Range Interpretation Description Data Sup porting Code Source(s) Document(s ) Sodium 132 mmol/L [place] [Moles/volu Hospital me] in Serum or Plasma ID Date Data Source [id number] 10/26/2019 03:50:00 AM EDT [facility] Name Value Range Interpretation Description Data Sup porting Code Source(s) Document(s ) Glucose 247 mg/dL [place] [Mass/volume Hospital ] in Serum or Plasma ID Date Data Source [id number] 10/26/2019 03:50:00 AM EDT [facility] Name Value Range Interpretation Code Description Data Supporting Source(s) Document(s ) NUCLEATED RBCS 0.0 % [place] (AUTO Hospital DIFF%)DIS ID Date Data Source [id number] 10/26/2019 03:50:00 AM EDT [facility] Name Value Range Interpretation Description Data Sup porting Code Source(s) Document(s ) Differential AUTOMATED [place] cell count Hospital method - Blood ID Date Data Source [id number] 10/26/2019 03:50:00 AM EDT [facility] Name Value Range Interpretation Description Data Sup porting Code Source(s) Document(s ) Immature 0.01 [place] granulocytes 10*3/uL Hospital [#/volume] in Blood by Automated count ID Date Data Source [id number] 10/26/2019 03:50:00 AM EDT [facility] Name Value Range Interpretation Description Data Sup porting Code Source(s) Document(s ) Basophils 0.04 [place] [#/volume] in 10*3/uL Hospital Blood by Automated count ID Date Data Source [id number] 10/26/2019 03:50:00 AM EDT [facility] Name Value Range Interpretation Description Data Sup porting Code Source(s) Document(s ) Eosinophils 0.28 [place] [#/volume] in 10*3/uL Hospital Blood by Automated count ID Date Data Source [id number] 10/26/2019 03:50:00 AM EDT [facility] Value Range Interpretation Description Data Sup porting Code Source(s) Document(s ) Monocytes 0.50 [place] [#/volume] in 10*3/uL Hospital Blood by Automated count ID Date Data Source [id number] 10/26/2019 03:50:00 AM EDT [facility] Value Range Interpretation Description Data Sup porting Code Source(s) Document(s ) Lymphocytes 2.29 [place] [#/volume] in 10*3/uL Hospital Blood by Automated count ID Date Data Source [id number] 10/26/2019 03:50:00 AM EDT [facility] Name Value Range Interpretation Description Data Sup porting Code Source(s) Document(s ) Neutrophils 1.54 [place] [#/volume] in 10*3/uL Hospital Blood by Automated count ID Date Data Source [id number] 10/26/2019 03:50:00 AM EDT [facility] Name Value Range Interpretation Description Data Sup porting Code Source(s) Document(s ) Nucleated 0.0 % [place] erythrocytes/10 Hospital 0 leukocytes [Ratio] in Blood by Automated count ID Date Data Source [id number] 10/26/2019 03:50:00 AM EDT [facility] Value Range Interpretation Description Data Sup porting Code Source(s) Document(s ) Immature 0.2 % [place] granulocytes/10 Hospital 0 leukocytes in Blood by Automated count ID Date Data Source [id number] 10/26/2019 03:50:00 AM EDT [facility] Value Range Interpretation Description Data Sup porting Code Source(s) Document(s ) Basophils/100 0.9 % [place] leukocytes in Hospital Blood by Automated count ID Date Data Source [id number] 10/26/2019 03:50:00 AM EDT [facility] Value Range Interpretation Description Data Sup porting Code Source(s) Document(s ) Eosinophils/100 6.0 % [place] leukocytes in Hospital Blood by Automated count ID Date Data Source [id number] 10/26/2019 03:50:00 AM EDT [facility] Value Range Interpretation Description Data Sup porting Code Source(s) Document(s ) Monocytes/100 10.7 % [place] leukocytes in Hospital Blood by Automated count ID Date Data Source [id number] 10/26/2019 03:50:00 AM EDT [facility] System Name Value Range Interpretation Description Data Sup porting Code Source(s) Document(s ) Lymphocytes/10 49.1 % [place] 0 leukocytes Hospital in Blood by Automated count ID Date Data Source [id number] 10/26/2019 03:50:00 AM EDT [facility] Value Range Interpretation Description Data Sup porting Code Source(s) Document(s ) Neutrophils/10 33.1 % [place] 0 leukocytes Hospital in Blood by Automated count ID Date Data Source [id number] 10/26/2019 03:50:00 AM [facility] PLATELET CLUMPS NOTED ON PERIPHERAL SMEA R- PLT COUNT MAY NOT BE ACCURATE Name Value Range Interpretation Description Data Sup porting Code Source(s) Document(s ) Platelets 105 [place] [#/volume] in 10*3/uL Hospital Blood by Automated count ID Date Data Source [id number] 10/26/2019 03:50:00 AM [facility] Name Value Range Interpretation Description Data Sup porting Code Source(s) Document(s ) Erythrocyte 12.7 % [facility] width [Ratio] by Automated count ID Date Data Source [id number] 10/26/2019 03:50:00 AM [facility] Name Value Range Interpretation Description Data Sup porting Code Source(s) Document(s ) Erythrocyte mean 34.1 [place] corpuscular g/dL Hospital hemoglobin concentration [Mass/volume] by Automated count ID Date Data Source [id number] 10/26/2019 03:50:00 AM [facility] Value Range Interpretation Description Data Sup porting Code Source(s) Document(s ) Erythrocyte 29.9 pg [facility] corpuscular hemoglobin [Entitic mass] by Automated count ID Date Data Source [id number] 10/26/2019 03:50:00 AM [facility] Name Value Range Interpretation Description Data Sup porting Code Source(s) Document(s ) Erythrocyte 87.4 fL [facility] corpuscular volume [Entitic volume] by Automated count ID Date Data Source [id number] 10/26/2019 03:50:00 AM [facility] Value Range Interpretation Description Data Sup porting Code Source(s) Document(s ) Hematocrit 41.0 % [place] [Volume Hospital Fraction] of Blood by Automated count ID Date Data Source [id number] 10/26/2019 03:50:00 AM EDT [facility] System Name Value Range Interpretation Description Data Sup porting Code Source(s) Document(s ) Hemoglobin 14.0 g/dL [place] [Mass/volume] Hospital in Blood ID Date Data Source [id number] 10/26/2019 03:50:00 AM EDT [facility] System Name Value Range Interpretation Description Data Sup porting Code Source(s) Document(s ) Erythrocytes 4.69 [place] [#/volume] in 10*6/uL Hospital Blood by Automated count ID Date Data Source [id number] 10/26/2019 03:50:00 AM EDT Health System Name Value Range Interpretation Description Data Sup porting Code Source(s) Document(s ) Leukocytes 4.7 [place] [#/volume] in 10*3/uL Hospital Blood by Automated count ID Date Data Source [id number] 10/26/2019 02:33:00 AM [facility] Manager Energy:[employer] Name Value Range Interpretation Description Data Sup porting Code Source(s) Document(s ) Glucose 230 mg/dL [place] [Mass/volume] Hospital in Capillary blood by Glucometer ID Date Data Source [id number] [facility]LISSA PINO Name Value Range Interpretation Description Data Sup porting Code Source(s) Document(s ) Glucose 366 mg/dL [place] [Mass/volume] Hospital in Capillary blood by Glucometer ID Date Data Source [id number] 06/21/[facility] Value Range Interpretation Code Description Data Bryanna rce(s) Supporting Document(s ) Urea 8.3 [place] nitrogen/Cre Hospital atinine [Mass Ratio] in Serum or Plasma ID Date Data Source [id number] 06/21/2019 06:41:00 AM EDT [facility] System Name Value Range Interpretation Description Data Sup porting Code Source(s) Document(s ) Creatinine 0.6 mg/dL [place] [Mass/volume] Hospital in Serum or Plasma ID Date Data Source [id number] 06/21/2019 06:41:00 AM EDT [facility] System Name Value Range Interpretation Description Data Sup porting Code Source(s) Document(s ) Urea nitrogen 5 mg/dL [place] [Mass/volume] Hospital in Serum or Plasma ID Date Data Source [id number] 06/21/2019 06:41:00 AM EDT [facility] Value Range Interpretation Code Description Data Bryanna rce(s) Supporting Document(s ) Anion gap in 7 [place] Serum or [facility] Plasma ID Date Data Source [id number] 06/21/2019 06:41:00 AM EDT [facility] Value Range Interpretation Description Data Sup porting Code Source(s) Document(s ) Carbon 30 mmol/L [place] dioxide, Hospital total [Moles/volu me] in Serum or Plasma ID Date Data Source [id number] 06/21/2019 06:41:00 AM EDT [facility] Value Range Interpretation Description Data Sup porting Code Source(s) Document(s ) Chloride 108 [place] [Moles/volum mmol/L Hospital e] in Serum or Plasma ID Date Data Source [id number] 06/21/2019 06:41:00 AM EDT [facility] Value Range Interpretation Description Data Sup porting Code Source(s) Document(s ) Potassium 3.6 [place] [Moles/volume mmol/L Hospital ] in Serum or Plasma ID Date Data Source [id number] 06/21/2019 06:41:00 AM EDT [facility] Value Range Interpretation Description Data Sup porting Code Source(s) Document(s ) Sodium 141 mmol/L [place] [Moles/volu Hospital tx] in Serum or Plasma ID Date Data Source [id number] 06/21/2019 06:41:00 AM EDT [facility] Value Range Interpretation Description Data Sup porting Code Source(s) Document(s ) Glucose 161 mg/dL [place] [Mass/volume Hospital ] in Serum or Plasma ID Date Data Source [id number] 06/21/2019 06:41:00 AM EDT [facility] Value Range Interpretation Code Description Data Supporting Source(s) Document(s ) NUCLEATED RBCS 0.0 % [place] (AUTO Hospital DIFF%)DIS ID Date Data Source [id number] 06/21/2019 06:41:00 AM EDT [facility] Value Range Interpretation Description Data Sup porting Code Source(s) Document(s ) Differential AUTOMATED [place] cell count [facility] method - Blood ID Date Data Source [id number] 06/21/2019 06:41:00 AM EDT [facility] Value Range Interpretation Description Data Sup porting Code Source(s) Document(s ) Immature 0.01 [place] granulocytes 10*3/uL Hospital [#/volume] in Blood by Automated count ID Date Data Source [id number] 06/21/2019 06:41:00 AM EDT [facility] Name Value Range Interpretation Description Data Sup porting Code Source(s) Document(s ) Basophils 0.05 [place] [#/volume] in 10*3/uL Hospital Blood by Automated count ID Date Data Source [id number] 06/21/2019 06:41:00 AM EDT Health System Name Value Range Interpretation Description Data Sup porting Code Source(s) Document(s ) Eosinophils 0.29 [place] [#/volume] in 10*3/uL Hospital Blood by Automated count ID Date Data Source [id number] 06/21/2019 06:41:00 AM EDT [facility] Value Range Interpretation Description Data Sup porting Code Source(s) Document(s ) Monocytes 0.42 [place] [#/volume] in 10*3/uL Hospital Blood by Automated count ID Date Data Source [id number] 06/21/2019 06:41:00 AM EDT [facility] Value Range Interpretation Description Data Sup porting Code Source(s) Document(s ) Lymphocytes 2.71 [place] [#/volume] in 10*3/uL Hospital Blood by Automated count ID Date Data Source [id number] 06/21/2019 06:41:00 AM EDT [facility] Value Range Interpretation Description Data Sup porting Code Source(s) Document(s ) Neutrophils 0.99 [place] [#/volume] in 10*3/uL [facility] Blood by Automated count ID Date Data Source [id number] 06/21/2019 06:41:00 AM EDT [facility] Value Range Interpretation Description Data Sup porting Code Source(s) Document(s ) Nucleated 0.0 % [place] erythrocytes/10 Hospital 0 leukocytes [Ratio] in Blood by Automated count ID Date Data Source [id number] 06/21/2019 06:41:00 AM EDT [facility] Value Range Interpretation Description Data Sup porting Code Source(s) Document(s ) Immature 0.2 % [place] granulocytes/10 Hospital 0 leukocytes in Blood by Automated count ID Date Data Source [id number] 06/21/2019 06:41:00 AM EDT Health System Name Value Range Interpretation Description Data Sup porting Code Source(s) Document(s ) Basophils/100 1.1 % [place] leukocytes in Hospital Blood by Automated count ID Date Data Source [id number] 06/21/2019 06:41:00 AM EDT [facility] Value Range Interpretation Description Data Sup porting Code Source(s) Document(s ) Eosinophils/100 6.5 % [place] leukocytes in Hospital Blood by Automated count ID Date Data Source [id number] 06/21/2019 06:41:00 AM EDT [facility] Value Range Interpretation Description Data Sup porting Code Source(s) Document(s ) Monocytes/100 9.4 % [place] leukocytes in [facility] Blood by Automated count ID Date Data Source [id number] 06/21/2019 06:41:00 AM EDT [facility] Value Range Interpretation Description Data Sup porting Code Source(s) Document(s ) Lymphocytes/10 60.6 % [place] 0 leukocytes Hospital in Blood by Automated count ID Date Data Source [id number] 06/21/2019 06:41:00 AM EDT [facility] Value Range Interpretation Description Data Sup porting Code Source(s) Document(s ) Neutrophils/10 22.2 % [place] 0 leukocytes Hospital in Blood by Automated count ID Date Data Source [id number] 06/21/2019 06:41:00 AM EDT Health System Name Value Range Interpretation Description Data Sup porting Code Source(s) Document(s ) Platelet mean 13.0 fL [place] volume [facility] [Entitic volume] in Blood by Automated count ID Date Data Source [id number] 06/21/2019 06:41:00 AM EDT [place] [facility] Name Value Range Interpretation Description Data Sup porting Code Source(s) Document(s ) Platelets 132 [place] [#/volume] in 10*3/uL Hospital Blood by Automated count ID Date Data Source [id number] 06/21/2019 06:41:00 AM EDT [facility] Value Range Interpretation Description Data Sup porting Code Source(s) Document(s ) Erythrocyte 14.6 % [place] distribution Hospital width [Ratio] by Automated count ID Date Data Source [id number] 06/21/2019 06:41:00 AM EDT [facility] Value Range Interpretation Description Data Sup porting Code Source(s) Document(s ) Erythrocyte mean 34.9 [place] corpuscular g/dL [facility] hemoglobin concentration [Mass/volume] by Automated count ID Date Data Source [id number] 06/21/2019 06:41:00 AM EDT [facility] Value Range Interpretation Description Data Sup porting Code Source(s) Document(s ) Erythrocyte 29.0 pg [facility] corpuscular hemoglobin [Entitic mass] by Automated count ID Date Data Source [id number] 06/21/2019 06:41:00 AM [facility] Value Range Interpretation Description Data Sup porting Code Source(s) Document(s ) Erythrocyte 83.0 fL [facility] corpuscular volume [Entitic volume] by Automated count ID Date Data Source [id number] 06/21/2019 06:41:00 AM [facility] Value Range Interpretation Description Data Sup porting Code Source(s) Document(s ) Hematocrit 33.8 % [place] [Volume Hospital Fraction] of Blood by Automated count ID Date Data Source [id number] 06/[facility] Description Data Sup porting Code Source(s) Document(s ) Hemoglobin 11.8 g/dL [place] [Mass/volume] Hospital in Blood ID Date Data Source [id number] 06/21/2019 06:41:00 AM [facility] Name Value Range Interpretation Description Data Sup porting Code Source(s) Document(s ) Erythrocytes 4.07 [place] [#/volume] in 10*6/uL Hospital Blood by Automated count ID Date Data Source [id number] 06/21/2019 06:41:00 AM [facility] Name Value Range Interpretation Description Data Sup porting Code Source(s) Document(s ) Leukocytes 4.5 [place] [#/volume] in 10*3/uL Hospital Blood by Automated count ID Date Data Source [id number] 06/21/2019 06:41:00 AM [facility] NOTIFICATION AND READ BACK OF CRITICAL R ESULTS TO MARU PINO RN 5E AT 0824 ON 06/21/19 BY Jessica Quinteros.REPORTED CR ITICAL VALUES SHOULD BE INTERPRETED WITHIN CLINICAL CONTEXT. Name Value Range Interpretation Description Data Sup porting Code Source(s) Document(s ) Ammonia 83 mmol/L [place] [Moles/volum Hospital e] in Plasma ID Date Data Source [id number] 06/21/2019 06:41:00 AM [facility] Name Value Range Interpretation Description Data Sup porting Code Source(s) Document(s ) Aspartate 52 U/L White aminotransferase [place] [Enzymatic Hospital activity/volume] in Serum or Plasma ID Date Data Source [id number] 06/21/2019 06:41:00 AM [facility] Name Value Range Interpretation Description Data Sup porting Code Source(s) Document(s ) Alanine 30 U/L White aminotransferase [place] [Enzymatic Hospital activity/volume] in Serum or Plasma ID Date Data Source [id number] 06/21/2019 06:41:00 AM EDT Health System Name Value Range Interpretation Description Data Sup porting Code Source(s) Document(s ) Alkaline 72 U/L [place] phosphatase [facility] [Enzymatic activity/volume ] in Serum or Plasma ID Date Data Source [id number] 06/21/2019 06:41:00 AM EDT Health System Name Value Range Interpretation Description Data Sup porting Code Source(s) Document(s ) Bilirubin.t 1.3 mg/dL [facility] [Mass/volum e] in Serum or Plasma ID Date Data Source [id number] [facility] Interpretation Code Description Data Bryanna rce(s) Supporting Document(s ) Albumin/Glob [facility]1 [facility] Ratio] in Serum or Plasma ID Date Data Source [id number] 06/21/2019 06:41:00 AM EDT Health System Name Value Range Interpretation Description Data Sup porting Code Source(s) Document(s ) Albumin 2.7 g/dL [place] [Mass[facility]volume [facility] ] in Serum or Plasma ID Date Data Source [id number] 06/21/2019 06:41:00 AM EDT Health System Name Value Range Interpretation Description Data Sup porting Code Source(s) Document(s ) Protein 5.2 g/dL [place] [[facility] ] in Serum or Plasma ID Date Data Source [id number] 06/[facility] Interpretation Description Data Sup porting Code Source(s) Document(s ) Calcium 7.9 mg/dL [place] [[facility] ] in Serum or Plasma ID Date Data Source [id number] 06/19/2019 08:19:00 AM EST Health System Name Value Range Interpretation Description Data Sup porting Code Source(s) Document(s ) Magnesium 1.7 mg/dL [place] [Mass/volume] Hospital in Serum or Plasma ID Date Data Source [id number] 06/17/2019 11:38:00 PM EST [facility] Value Range Interpretation Description Data Sup porting Code Source(s) Document(s ) Lactate 1.9 [place] [Moles/volum mmol/L Hospital e] in Serum or Plasma ID Date Data Source [id number] 06/17/2019 08:02:00 PM EST [facility] Value Range Interpretation Code Description Data Bryanna rce(s) Supporting Document(s ) ABG TEMP 98.0 Health System ID Date Data Source [id number] 06/17/2019 08:02:00 PM EST [facility] Value Range Interpretation Code Description Data Bryanna rce(s) Supporting Document(s ) FIO2 21 Health System ID Date Data Source [id number] 06/17/2019 08:02:00 PM EST [facility] Value Range Interpretation Code Description Data Bryanna rce(s) Supporting Document(s ) ABG BE -6.0 Health System ID Date Data Source [id number] 06/17/2019 08:02:00 PM [facility] Value Range Interpretation Code Description Data Bryanna rce(s) Supporting Document(s ) ABG O2SAT 96 % Health System ID Date Data Source [id number] 06/17/2019 08:02:00 PM EST [facility] Value Range Interpretation Code Description Data Bryanna rce(s) Supporting Document(s ) ABG HCO3 19 meq/L Health System ID Date Data Source [id number] 06/17/2019 08:02:00 PM EST [facility] [place] [facility] Name Value Range Interpretation Code Description Data Bryanna rce(s) Supporting Document(s ) ABG PO2 86 mm[Hg] Health System ID Date Data Source [id number] 06/17/2019 08:02:00 PM EST [facility] [place] [facility] Name Value Range Interpretation Code Description Data Bryanna rce(s) Supporting Document(s ) ABG PCO2 35 mm[Hg] Health System ID Date Data Source [id number] 06/17/2019 08:02:00 PM EST [facility] [place] [facility] Name Value Range Interpretation Code Description Data Bryanna rce(s) Supporting Document(s ) ABG PH 7.36 U [facility] System ID Date Data Source [id number] 06/17/2019 08:02:00 PM EST [facility] Name Value Range Interpretation Code Description Data Bryanna rce(s) Supporting Document(s ) ABG MODE RA Health System ID Date Data Source [id number] 06/17/2019 08:02:00 PM EST [facility] Value Range Interpretation Code Description Data Bryanna rce(s) Supporting Document(s ) ABG SITE RR [facility] System ID Date Data Source [id number] 06/17/2019 08:02:00 PM EST [facility] Name Value Range Interpretation Code Description Data Supporting Source(s) Document(s ) ABG SOURCE ARTERIAL Health System ID Date Data Source [id number] 06/17/2019 08:02:00 PM EST [facility] [place] [facility] Name Value Range Interpretation Code Description Data Bryanna rce(s) Supporting Document(s ) JORGE TEST POSITIVE Health System ID Date Data Source [id number] 06/17/2019 07:59:00 PM [facility] TEST PERFORMED BY [employer] ULTRA SENSITIVE CENTAUR CHEMILUMINESCENCE METHOD. Name Value Range Interpretation Description Data Sup porting Code Source(s) Document(s ) Troponin 0.02 [place] I.cardiac ng/mL Hospital [Mass/volume ] in Serum or Plasma ID Date Data Source [id number] 06/17/2019 07:59:00 PM EST Health System Name Value Range Interpretation Description Data Sup porting Code Source(s) Document(s ) Leukocyte NEGATIVE [place] esterase Hospital [Presence] in Urine by Test strip ID Date Data Source [id number] 06/17/2019 07:59:00 PM [facility] Name Value Range Interpretation Description Data Sup porting Code Source(s) Document(s ) URINE NEGATIVE [place] NITRITES Hospital ID Date Data Source [id number] 06/17/2019 07:59:00 PM [facility] Name Value Range Interpretation Description Data Sup porting Code Source(s) Document(s ) Erythrocytes NEGATIVE [place] [#/volume] in Hospital Urine by Test strip ID Date Data Source [id number] 06/17/2019 07:59:00 PM [facility] Name Value Range Interpretation Code Description Data Bryanna rce(s) Supporting Document(s ) Bilirubin. NEGATIVE [place] total Hospital [Presence] in Urine by Test strip ID Date Data Source [id number] 06/17/2019 07:59:00 PM [facility] Name Value Range Interpretation Description Data Sup porting Code Source(s) Document(s ) Urobilinogen 0.2 [place] [Units/volume] mg/dL Hospital in Urine by Test strip ID Date Data Source [id number] 06/17/2019 07:59:00 PM EST Health System Name Value Range Interpretation Code Description Data Bryanna rce(s) Supporting Document(s ) Ketones 4+ [place] [Mass/volume Hospital ] in Urine by Test strip ID Date Data Source [id number] 06/17/2019 07:59:00 PM EST Health System Name Value Range Interpretation Code Description Data Bryanna rce(s) Supporting Document(s ) Glucose 3+ [place] [Mass/volume Hospital ] in Urine by Test strip ID Date Data Source [id number] 06/17/2019 07:59:00 PM EST [place] [facility] Name Value Range Interpretation Description Data Sup porting Code Source(s) Document(s ) Protein NEGATIVE [place] [Presence] Hospital in Urine by Test strip ID Date Data Source [id number] 06/17/2019 07:59:00 PM EST Health System Name Value Range Interpretation Code Description Data Bryanna rce(s) Supporting Document(s ) pH of Urine 5.5 [place] by Test Hospital strip ID Date Data Source [id number] 06/17/2019 07:59:00 PM EST Health System Name Value Range Interpretation Code Description Data Supporting Source(s) Document(s ) Specific 1.044 [place] gravity of Hospital Urine by Test strip ID Date Data Source [id number] 06/17/2019 07:59:00 PM EST [place] [facility] Name Value Range Interpretation Description Data Sup porting Code Source(s) Document(s ) Clarity in Urine CLEAR [place] by Refractometry Hospital automated ID Date Data Source [id number] 06/17/2019 07:59:00 PM EST [place] [facility] Name Value Range Interpretation Code Description Data Bryanna rce(s) Supporting Document(s ) Color of YELLOW [place] Urine Hospital ID Date Data Source [id number] 06/17/2019 07:59:00 PM [facility] THERAPEUTIC RANGES:UNFRACTIONATED HEPARI N THERAPY: 60-90 SECONDSARGATROBAN THERAPY: 49-99 SECONDS Name Value Range Interpretation Description Data Sup porting Code Source(s) Document(s ) aPTT in 35.5 s [place] Platelet poor [facility] plasma by Coagulation assay ID Date Data Source [id number] 06/17/2019 07:59:00 PM [facility] THERAPEUTIC RANGE FOR STANDARD ORALANTIC OAGULANT THERAPY: 2.0-3.0THERAPEUTIC RANGE FOR HIGH DOSE ORALANTICOAGULANT THERAPY (MECHANICAL HEARTVALVE REPLACEMENT): 2.5-3.5 Name Value Range Interpretation Description Data Sup porting Code Source(s) Document(s ) INR in Platelet 1.0 [place] poor plasma by Hospital Coagulation assay ID Date Data Source [id number] 06/17/2019 07:59:00 PM [facility] Name Value Range Interpretation Description Data Sup porting Code Source(s) Document(s ) PT panel - 10.9 s [place] Platelet poor [facility] plasma by Coagulation assay ID Date Data Source [id number] 06/17/2019 07:30:00 PM [facility] Name Value Range Interpretation Description Data Sup porting Code Source(s) Document(s ) Bacteria No growth [place] identified in Hospital Blood by Culture ID Date Data Source [id number] 06/17/2019 07:01:00 PM [facility] Name Value Range Interpretation Description Data Sup porting Code Source(s) Document(s ) GLUCOSE RN Notified [place] COMMENT Hospital ID Date Data Source [id number] 05/28/2019 11:42:00 AM [facility] Name Value Range Interpretation Description Data Sup porting Code Source(s) Document(s ) GLUCOSE MD Notified [facility] Hospital ID Date Data Source [id number] 05/28/2019 11:42:00 AM [facility] Name Value Range Interpretation Description Data Sup porting Code Source(s) Document(s ) GLUCOSE MD Notified [place] COMMENT2 Hospital ID Date Data Source [id number] 05/28/2019 11:42:00 AM [facility] Name Value Range Interpretation Description Data Sup porting Code Source(s) Document(s ) GLUCOSE To Be [place] COMMENT Repeated Hospital ID Date Data Source [id number] 05/28/2019 11:42:00 AM [facility] [employer] Name Value Range Interpretation Description Data Sup porting Code Source(s) Document(s ) Glucose 419 mg/dL [place] [Mass/volume] [facility] in Capillary blood by Glucometer ID Date Data Source [id number] 05/26/2019 09:58:00 AM [facility] ADA RECOMMENDATIONS: NON-DIABETES: 4.0-6.0% CONTROLLED DIABETES: 6.0-8.0% UNCONTROLLED DIABETE S: UP TO 20%RECOMMENDED ADA RESULT FOR THERAPY: HEMOGLOBIN A1C RESULT LESS GM N 7%.NOTE: METHOD CHANGE EFFECTIVE 11/11/14. Name Value Range Interpretation Description Data Sup porting Code Source(s) Document(s ) Hemoglobin 10.7 % [place] A1c/Hemoglobin [facility] .total in Blood ID Date Data Source [id number] 05/26/2019 09:58:00 AM [facility] Name Value Range Interpretation Description Data Sup porting Code Source(s) Document(s ) Phosphate 3.6 mg/dL [place] [Mass/volume] [facility] in Serum or Plasma ID Date Data Source [id number] 05/26/2019 09:58:00 AM [facility] ADA RECOMMENDATIONS: NON-DIABETES: 4.0-6.0% CONTROLLED DIABETES: 6.0-8.0% UNCONTROLLED DIABETE S: UP TO 20%RECOMMENDED ADA RESULT FOR THERAPY: HEMOGLOBIN A1C RESULT LESS GM N 7%.NOTE: METHOD CHANGE EFFECTIVE 11/11/14. Name Value Range Interpretation Description Data Sup porting Code Source(s) Document(s ) Hemoglobin 10.7 % [place] A1c/Hemoglobin Hospital .total in Blood ID Date Data Source [id number] 05/26/2019 09:58:00 AM EST Health System Name Value Range Interpretation Description Data Sup porting Code Source(s) Document(s ) Phosphate 3.6 mg/dL [place] [Mass/volume] Hospital in Serum or Plasma ID Date Data Source [id number] 05/26/2019 09:58:00 AM EST Health System Name Value Range Interpretation Description Data Sup porting Code Source(s) Document(s ) Magnesium 1.8 mg/dL [place] [Mass/volume] Hospital in Serum or Plasma ID Date Data Source [id number] 05/26/2019 09:58:00 AM [facility] Name Value Range Interpretation Description Data Sup porting Code Source(s) Document(s ) Calcium 8.1 mg/dL [place] [Mass/volume Hospital ] in Serum or Plasma ID Date Data Source [id number] 05/26/2019 09:58:00 AM [facility] Name Value Range Interpretation Code Description Data Bryanna rce(s) Supporting Document(s ) Urea 17.1 [place] nitrogen/Cre Hospital atinine [Mass Ratio] in Serum or Plasma ID Date Data Source [id number] 05/26/2019 09:58:00 AM [facility] Hospital Name Value Range Interpretation Description Data Sup porting Code Source(s) Document(s ) Creatinine 0.7 mg/dL [place] [Mass/volume] Hospital in Serum or Plasma ID Date Data Source [id number] 05/26/2019 09:58:00 AM EST [place] [facility] Name Value Range Interpretation Description Data Sup porting Code Source(s) Document(s ) Urea 12 mg/dL [place] nitrogen Hospital [Mass/volume ] in Serum or Plasma ID Date Data Source [id number] 05/26/2019 09:58:00 AM EST [place] [facility] Name Value Range Interpretation Code Description Data Bryanna rce(s) Supporting Document(s ) Anion gap in 11 [place] Serum or Hospital Plasma ID Date Data Source [id number] 05/26/2019 09:58:00 AM EST [place] [facility] Name Value Range Interpretation Description Data Sup porting Code Source(s) Document(s ) Carbon 24 mmol/L [place] dioxide, Hospital total [Moles/volu me] in Serum or Plasma ID Date Data Source [id number] 05/26/2019 09:58:00 AM EST [place] [place] [facility] Name Value Range Interpretation Description Data Sup porting Code Source(s) Document(s ) Chloride 109 [place] [Moles/volum mmol/L Hospital e] in Serum or Plasma ID Date Data Source [id number] 05/26/2019 09:58:00 AM EST [place] [facility] Name Value Range Interpretation Description Data Sup porting Code Source(s) Document(s ) Potassium 3.8 [place] [Moles/volume mmol/L Hospital ] in Serum or Plasma ID Date Data Source [id number] 05/26/2019 09:58:00 AM EST [facility] [place] [facility] Name Value Range Interpretation Description Data Sup porting Code Source(s) Document(s ) Sodium 140 mmol/L [place] [Moles/volu Hospital me] in Serum or Plasma ID Date Data Source [id number] 05/26/2019 09:58:00 AM EST [facility] Name Value Range Interpretation Description Data Sup porting Code Source(s) Document(s ) Glucose 313 mg/dL [place] [Mass/volume Hospital ] in Serum or Plasma ID Date Data Source [id number] 05/26/2019 09:58:00 AM EST [facility] System Name Value Range Interpretation Code Description Data Supporting Source(s) Document(s ) NUCLEATED RBCS 0.0 % [place] (AUTO Hospital DIFF%)DIS ID Date Data Source [id number] 05/26/2019 09:58:00 AM [facility] Name Value Range Interpretation Description Data Sup porting Code Source(s) Document(s ) Differential AUTOMATED [place] cell count Hospital method - Blood ID Date Data Source [id number] 05/26/2019 09:58:00 AM EST [facility] Value Range Interpretation Description Data Sup porting Code Source(s) Document(s ) Immature 0.02 [place] granulocytes 10*3/uL Hospital [#/volume] in Blood by Automated count ID Date Data Source [id number] 05/26/2019 09:58:00 AM EST [facility] Name Value Range Interpretation Description Data Sup porting Code Source(s) Document(s ) Basophils 0.04 [place] [#/volume] in 10*3/uL Hospital Blood by Automated count ID Date Data Source [id number] 05/26/2019 09:58:00 AM EST [facility] Name Value Range Interpretation Description Data Sup porting Code Source(s) Document(s ) Eosinophils 0.16 [place] [#/volume] in 10*3/uL Hospital Blood by Automated count ID Date Data Source [id number] 05/26/2019 09:58:00 AM EST [facility] Name Value Range Interpretation Description Data Sup porting Code Source(s) Document(s ) Monocytes 0.65 [place] [#/volume] in 10*3/uL Hospital Blood by Automated count ID Date Data Source [id number] 05/26/2019 09:58:00 AM EST [facility] Value Range Interpretation Description Data Sup porting Code Source(s) Document(s ) Lymphocytes 1.90 [place] [#/volume] in 10*3/uL Hospital Blood by Automated count ID Date Data Source [id number] 05/26/2019 09:58:00 AM EST [facility] Value Range Interpretation Description Data Sup porting Code Source(s) Document(s ) Neutrophils 1.71 [place] [#/volume] in 10*3/uL [facility] Blood by Automated count ID Date Data Source [id number] 05/26/2019 09:58:00 AM [facility] Value Range Interpretation Description Data Sup porting Code Source(s) Document(s ) Nucleated 0.0 % [place] erythrocytes/10 Hospital 0 leukocytes [Ratio] in Blood by Automated count ID Date Data Source [id number] 05/26/2019 09:58:00 AM [facility] Value Range Interpretation Description Data Sup porting Code Source(s) Document(s ) Immature 0.4 % [place] granulocytes/10 Hospital 0 leukocytes in Blood by Automated count ID Date Data Source [id number] 05/26/2019 09:58:00 AM [facility] Value Range Interpretation Description Data Sup porting Code Source(s) Document(s ) Basophils/100 0.9 % [place] leukocytes in Hospital Blood by Automated count ID Date Data Source [id number] 05/26/2019 09:58:00 AM [facility] Value Range Interpretation Description Data Sup porting Code Source(s) Document(s ) Eosinophils/100 3.6 % [place] leukocytes in Hospital Blood by Automated count ID Date Data Source [id number] 05/26/2019 09:58:00 AM EST [facility] Name Value Range Interpretation Description Data Sup porting Code Source(s) Document(s ) Monocytes/100 14.5 % [place] leukocytes in Hospital Blood by Automated count ID Date Data Source [id number] 05/26/2019 09:58:00 AM EST [facility] [place] [facility] Name Value Range Interpretation Description Data Sup porting Code Source(s) Document(s ) Lymphocytes/10 42.4 % [place] 0 leukocytes Hospital in Blood by Automated count ID Date Data Source [id number] 05/26/2019 09:58:00 AM EST [facility] Value Range Interpretation Description Data Sup porting Code Source(s) Document(s ) Neutrophils/10 38.2 % [place] 0 leukocytes Hospital in Blood by Automated count ID Date Data Source [id number] 05/26/2019 09:58:00 AM [facility] Name Value Range Interpretation Description Data Sup porting Code Source(s) Document(s ) Platelet mean 12.1 fL [place] volume Hospital [Entitic volume] in Blood by Automated count ID Date Data Source [id number] 05/26/2019 09:58:00 AM [facility] Name Value Range Interpretation Description Data Sup porting Code Source(s) Document(s ) Platelets 198 [place] [#/volume] in 10*3/uL Hospital Blood by Automated count ID Date Data Source [id number] 05/26/2019 09:58:00 AM EST Health System Name Value Range Interpretation Description Data Sup porting Code Source(s) Document(s ) Erythrocyte 14.1 % [place] distribution Hospital width [Ratio] by Automated count ID Date Data Source [id number] 05/26/2019 09:58:00 AM EST Health System Name Value Range Interpretation Description Data Sup porting Code Source(s) Document(s ) Erythrocyte mean 32.8 [place] corpuscular g/dL Hospital hemoglobin concentration [Mass/volume] by Automated count ID Date Data Source [id number] 05/26/2019 09:58:00 AM [facility] Value Range Interpretation Description Data Sup porting Code Source(s) Document(s ) Erythrocyte 28.8 pg [facility] corpuscular hemoglobin [Entitic mass] by Automated count ID Date Data Source [id number] 05/26/2019 09:58:00 AM [facility] Value Range Interpretation Description Data Sup porting Code Source(s) Document(s ) Erythrocyte 88.0 fL [facility] corpuscular volume [Entitic volume] by Automated count ID Date Data Source [id number] 05/26/2019 09:58:00 AM [facility] Value Range Interpretation Description Data Sup porting Code Source(s) Document(s ) Hematocrit 35.1 % [place] [Volume Hospital Fraction] of Blood by Automated count ID Date Data Source [id number] 05/26/2019 09:58:00 AM [facility] Value Range Interpretation Description Data Sup porting Code Source(s) Document(s ) Hemoglobin 11.5 g/dL [place] [Mass/volume] Hospital in Blood ID Date Data Source [id number] 05/26/2019 09:58:00 AM [facility] Value Range Interpretation Description Data Sup porting Code Source(s) Document(s ) Erythrocytes 3.99 [place] [#/volume] in 10*6/uL Hospital Blood by Automated count ID Date Data Source [id number] 05/26/2019 09:58:00 AM [facility] Value Range Interpretation Description Data Sup porting Code Source(s) Document(s ) Leukocytes 4.5 [place] [#/volume] in 10*3/uL Hospital Blood by Automated count ID Date Data Source [id number] 05/26/2019 12:00:00 AM [facility] TEST PERFORMED BY [employer] [facility] ULTRA SENSITIVE [facility] CHEMILUMINESCENCE METHOD. Name Value Range Interpretation Description Data Sup porting Code Source(s) Document(s ) Troponin 0.01 [place] I.cardiac ng/mL Hospital [Mass/volume ] in Serum or Plasma ID Date Data Source [id number] 05/26/2019 12:00:00 AM [facility] Name Value Range Interpretation Description Data Sup porting Code Source(s) Document(s ) Lactate 1.0 [place] [Moles/volum mmol/L Hospital e] in Serum or Plasma ID Date Data Source [id number] 05/25/2019 09:33:00 PM [facility] CUT-OFF >= 25 NG/ML.THE FINDINGS OF THE [...] rce(s) Supporting Document(s ) PCP (UR) NEGATIVE Health System ID Date Data Source [id number] 05/25/2019 09:33:00 PM [facility] CUT-OFF >= 50 NG/ML. Name Value Range Interpretation Code Description Data Bryanna rce(s) Supporting Document(s ) THC (UR) NEGATIVE Health System ID Date Data Source [id number] 05/25/2019 09:33:00 PM [facility] CUT-OFF >= 300 NG/ML. Name Value Range Interpretation Description Data Sup porting Code Source(s) Document(s ) OPIATES (UR) NEGATIVE [place] [facility] ID Date Data Source [id number] 05/25/2019 09:33:00 PM EST Health System CUT-OFF >= 300 NG/ML. Name Value Range Interpretation Description Data Sup porting Code Source(s) Document(s ) COCAINE (UR) NEGATIVE [place] [facility] ID Date Data Source [id number] 05/25/2019 09:33:00 PM [facility] CUT-OFF >= 200 NG/ML. Name Value Range Interpretation Description Data Sup porting Code Source(s) Document(s ) BENZODIAZEPINES NEGATIVE [place] (UR) [facility] ID Date Data Source [id number] 05/25/2019 09:33:00 PM [facility] CUT-OFF >= 200 NG/ML. Name Value Range Interpretation Description Data Sup porting Code Source(s) Document(s ) BARBITURATES NEGATIVE [place] (UR) Hospital ID Date Data Source [id number] 05/25/2019 09:33:00 PM [facility] CUT-OFF >= 1000 NG/ML. Name Value Range Interpretation Description Data Sup porting Code Source(s) Document(s ) AMPHETAMINES NEGATIVE [place] (UR) Hospital ID Date Data Source [id number] 05/25/2019 09:33:00 PM [facility] Name Value Range Interpretation Description Data Sup porting Code Source(s) Document(s ) Mucus PRESENT [place] [Presence] in Hospital Urine sediment by Light microscopy ID Date Data Source [id number] 05/25/2019 09:33:00 PM [facility] Name Value Range Interpretation Description Data Sup porting Code Source(s) Document(s ) Epithelial 2+ [place] cells.squamous Hospital [#/area] in Urine sediment by Microscopy high power field ID Date Data Source [id number] 05/25/2019 09:33:00 PM EST Health System Name Value Range Interpretation Description Data Sup porting Code Source(s) Document(s ) Bacteria OCCASIONAL [place] [#/area] in Hospital Urine sediment by Microscopy high power field ID Date Data Source [id number] 05/25/2019 09:33:00 PM [facility] Name Value Range Interpretation Description Data Sup porting Code Source(s) Document(s ) Erythrocytes 0-3 [place] [#/area] in /[HPF] Hospital Urine sediment by Microscopy high power field ID Date Data Source [id number] 05/25/2019 09:33:00 PM [facility] Name Value Range Interpretation Description Data Sup porting Code Source(s) Document(s ) Leukocytes 3-5 [place] [#/area] in /[HPF] Hospital Urine sediment by Microscopy high power field ID Date Data Source [id number] 05/25/2019 09:33:00 PM [facility] CUT-OFF >= 25 NG/ML.THE FINDINGS OF THE [...] rce(s) Supporting Document(s ) PCP (UR) NEGATIVE Health System ID Date Data Source [id number] 05/25/2019 09:33:00 PM [facility] CUT-OFF >= 50 NG/ML. Name Value Range Interpretation Code Description Data Bryanna rce(s) Supporting Document(s ) THC (UR) NEGATIVE Health System ID Date Data Source [id number] 05/25/2019 09:33:00 PM [facility] CUT-OFF >= 300 NG/ML. Name Value Range Interpretation Description Data Sup porting Code Source(s) Document(s ) OPIATES (UR) NEGATIVE [place] [facility] ID Date Data Source [id number] 05/25/2019 09:33:00 PM [facility] CUT-OFF >= 300 NG/ML. Name Value Range Interpretation Description Data Sup porting Code Source(s) Document(s ) COCAINE (UR) NEGATIVE [place] [facility] ID Date Data Source [id number] 05/25/2019 09:33:00 PM [facility] CUT-OFF >= 200 NG/ML. Name Value Range Interpretation Description Data Sup porting Code Source(s) Document(s ) BENZODIAZEPINES NEGATIVE [place] (UR) [facility] ID Date Data Source [id number] 05/25/2019 09:33:00 PM [facility] CUT-OFF >= 200 NG/ML. Name Value Range Interpretation Description Data Sup porting Code Source(s) Document(s ) BARBITURATES NEGATIVE [place] (UR) Hospital ID Date Data Source [id number] 05/25/2019 09:33:00 PM [facility] CUT-OFF >= 1000 NG/ML. Name Value Range Interpretation Description Data Sup porting Code Source(s) Document(s ) AMPHETAMINES NEGATIVE [place] (UR) Hospital ID Date Data Source [id number] 05/25/2019 09:33:00 PM [facility] Name Value Range Interpretation Description Data Sup porting Code Source(s) Document(s ) Mucus PRESENT [place] [Presence] in Hospital Urine sediment by Light microscopy ID Date Data Source [id number] 05/25/2019 09:33:00 PM [facility] Name Value Range Interpretation Description Data Sup porting Code Source(s) Document(s ) Epithelial 2+ [place] cells.squamous Hospital [#/area] in Urine sediment by Microscopy high power field ID Date Data Source [id number] 05/25/2019 09:33:00 PM EST Health System Name Value Range Interpretation Description Data Sup porting Code Source(s) Document(s ) Bacteria OCCASIONAL [place] [#/area] in Hospital Urine sediment by Microscopy high power field ID Date Data Source [id number] 05/25/2019 09:33:00 PM EST Health [facility] Name Value Range Interpretation Description Data Sup porting Code Source(s) Document(s ) Erythrocytes 0-3 [place] [#/area] in /[HPF] Hospital Urine sediment by Microscopy high power field ID Date Data Source [id number] 05/25/2019 09:33:00 PM EST [facility] Value Range Interpretation Description Data Sup porting Code Source(s) Document(s ) Leukocytes 3-5 [place] [#/area] in /[HPF] Hospital Urine sediment by Microscopy high power field ID Date Data Source [id number] 05/25/2019 09:33:00 PM EST [facility] Value Range Interpretation Code Description Data Supporting Source(s) Document(s ) Leukocyte TRACE [place] esterase Hospital [Presence] in Urine by Test strip ID Date Data Source [id number] 05/25/2019 09:33:00 PM EST [facility] Value Range Interpretation Description Data Sup porting Code Source(s) Document(s ) URINE NEGATIVE [place] NITRITES Hospital ID Date Data Source [id number] 05/25/2019 09:33:00 PM EST [facility] Value Range Interpretation Description Data Sup porting Code Source(s) Document(s ) Erythrocytes NEGATIVE [place] [#/volume] in Hospital Urine by Test strip ID Date Data Source [id number] 05/25/2019 09:33:00 PM EST [place] [place] [facility] Name Value Range Interpretation Code Description Data Bryanna rce(s) Supporting Document(s ) Bilirubin. NEGATIVE [place] total Hospital [Presence] in Urine by Test strip ID Date Data Source [id number] 05/25/2019 09:33:00 PM EST [facility] [place] [facility] Name Value Range Interpretation Description Data Sup porting Code Source(s) Document(s ) Urobilinogen 1.0 [place] [Units/volume] mg/dL Hospital in Urine by Test strip ID Date Data Source [id number] 05/25/2019 09:33:00 PM EST [facility] [place] [facility] Name Value Range Interpretation Code Description Data Bryanna rce(s) Supporting Document(s ) Ketones 1+ [place] [Mass/volume Hospital ] in Urine by Test strip ID Date Data Source [id number] 05/25/2019 09:33:00 PM EST [facility] Name Value Range Interpretation Description Data Sup porting Code Source(s) Document(s ) Glucose NEGATIVE [place] [Mass/volume Hospital ] in Urine by Test strip ID Date Data Source [id number] 05/25/2019 09:33:00 PM EST [facility] [place] [facility] Name Value Range Interpretation Code Description Data Bryanna rce(s) Supporting Document(s ) Protein TRACE [place] [Presence] Hospital in Urine by Test strip ID Date Data Source [id number] 05/25/2019 09:33:00 PM EST [facility] [place] [facility] Name Value Range Interpretation Code Description Data Bryanna rce(s) Supporting Document(s ) pH of Urine 6.5 [place] by Test Hospital strip ID Date Data Source [id number] 05/25/2019 09:33:00 PM EST [facility] [place] [facility] Name Value Range Interpretation Code Description Data Supporting Source(s) Document(s ) Specific 1.026 [place] gravity of Hospital Urine by Test strip ID Date Data Source [id number] 05/25/2019 09:33:00 PM [facility] Name Value Range Interpretation Description Data Sup porting Code Source(s) Document(s ) Clarity in Urine CLEAR [place] by Refractometry Hospital automated ID Date Data Source [id number] 05/25/2019 09:33:00 PM [facility] Value Range Interpretation Code Description Data Supporting Source(s) Document(s ) Color of DK YELLOW [place] Urine Hospital ID Date Data Source [id number] 05/25/2019 07:31:00 PM [facility] Value Range Interpretation Description Data Sup porting Code Source(s) Document(s ) Bacteria No growth [place] identified in Hospital Blood by Culture ID Date Data Source [id number] 05/25/2019 07:24:00 PM [facility] Value Range Interpretation Description Data Sup porting Code Source(s) Document(s ) Thyroxine 0.7 ng/dL [place] (T4) free Hospital [Mass/volume] in Serum or Plasma ID Date Data Source [id number] 05/25/2019 07:24:00 PM [facility] Value Range Interpretation Description Data Sup porting Code Source(s) Document(s ) Thyrotropin 2.463 [place] [Units/volume] u[IU]/mL Hospital in Serum or Plasma by Detection limit <= 0.005 mIU/L ID Date Data Source [id number] 05/25/2019 07:24:00 PM [facility] Value Range Interpretation Description Data Sup porting Code Source(s) Document(s ) Thyroxine 0.7 ng/dL [place] (T4) free Hospital [Mass/volume] in Serum or Plasma ID Date Data Source [id number] 05/25/2019 07:24:00 PM [facility] Name Value Range Interpretation Description Data Sup porting Code Source(s) Document(s ) Thyrotropin 2.463 [place] [Units/volume] u[IU]/mL Hospital in Serum or Plasma by Detection limit <= 0.005 mIU/L ID Date Data Source [id number] 05/25/2019 07:24:00 PM [facility] NOTIFICATION AND READ BACK OF CRITICAL R ESULTS TO DO [place] OF AT 2018 ON 05/25/19 BY Jeri Iraheta.REPORTED CRITIC AL VALUES SHOULD BE INTERPRETED WITHIN CLINICAL CONTEXT. Name Value Range Interpretation Description Data Sup porting Code Source(s) Document(s ) Ammonia 56 mmol/L [place] [Moles/volum Hospital e] in Plasma ID Date Data Source [id number] 05/25/2019 07:24:00 PM [facility] Name Value Range Interpretation Description Data Sup porting Code Source(s) Document(s ) Aspartate 33 U/L White aminotransferase [place] [Enzymatic Hospital activity/volume] in Serum or Plasma ID Date Data Source [id number] 05/25/2019 07:24:00 PM [facility] Name Value Range Interpretation Description Data Sup porting Code Source(s) Document(s ) Alanine 23 U/L White aminotransferase [place] [Enzymatic Hospital activity/volume] in Serum or Plasma ID Date Data Source [id number] 05/25/2019 07:24:00 PM [facility] Name Value Range Interpretation Description Data Sup porting Code Source(s) Document(s ) Alkaline 84 U/L [facility] Hospital [Enzymatic activity/volume ] in Serum or Plasma ID Date Data Source [id number] 05/25/2019 07:24:00 PM [facility] Name Value Range Interpretation Description Data Sup porting Code Source(s) Document(s ) Bilirubin.t 0.8 mg/dL [facility] [Mass/volum e] in Serum or Plasma ID Date Data Source [id number] 05/25/2019 07:24:00 PM [facility] Name Value Range Interpretation Code Description Data Bryanna rce(s) Supporting Document(s ) [facility] in Serum or Plasma ID Date Data Source [id number] 05/25/2019 07:24:00 PM [facility] Name Value Range Interpretation Description Data Sup porting Code Source(s) Document(s ) Albumin 3.6 g/dL [place] [Mass/volume Hospital ] in Serum or Plasma ID Date Data Source [id number] 05/25/2019 07:24:00 PM [facility] Name Value Range Interpretation Description Data Sup porting Code Source(s) Document(s ) Protein 7.1 g/dL [place] [Mass/volume Hospital ] in Serum or Plasma ID Date Data Source [id number] 05/25/2019 07:24:00 PM [facility] THERAPEUTIC RANGES:UNFRACTIONATED HEPARI N THERAPY: 60-90 SECONDSARGATROBAN THERAPY: 49-99 SECONDS Name Value Range Interpretation Description Data Sup porting Code Source(s) Document(s ) aPTT in 31.8 s [place] Platelet poor [facility] plasma by Coagulation assay ID Date Data Source [id number] 05/25/2019 07:24:00 PM [facility] THERAPEUTIC RANGE FOR STANDARD ORALANTIC OAGULANT THERAPY: 2.0-3.0THERAPEUTIC RANGE FOR HIGH DOSE ORALANTICOAGULANT THERAPY (MECHANICAL HEARTVALVE REPLACEMENT): 2.5-3.5 Name Value Range Interpretation Description Data Sup porting Code Source(s) Document(s ) INR in Platelet 1.1 [place] poor plasma by Hospital Coagulation assay ID Date Data Source [id number] 05/25/2019 07:24:00 PM [facility] Name Value Range Interpretation Description Data Sup porting Code Source(s) Document(s ) PT panel - 12.3 s [place] Platelet poor [facility] plasma by Coagulation assay ID Date Data Source [id number] 05/21/2019 04:13:00 PM [facility] [employer] Name Value Range Interpretation Description Data Sup porting Code Source(s) Document(s ) Glucose 265 mg/dL [place] [Mass/volume] [facility] in Capillary blood by Glucometer ID Date Data Source [id number] 05/21/2019 07:44:00 AM [facility] TEST PERFORMED BY [employer] ULTRA SENSITIVE [facility] CHEMILUMINESCENCE METHOD. Name Value Range Interpretation Description Data Sup porting Code Source(s) Document(s ) Troponin 0.02 [place] I.cardiac ng/mL Hospital [Mass/volume ] in Serum or Plasma ID Date Data Source [id number] 05/21/2019 07:44:00 AM [facility] Name Value Range Interpretation Description Data Sup porting Code Source(s) Document(s ) Magnesium 2.2 mg/dL [place] [Mass/volume] Hospital in Serum or Plasma ID Date Data Source [id number] 05/21/2019 07:44:00 AM [facility] Name Value Range Interpretation Description Data Sup porting Code Source(s) Document(s ) Calcium 8.0 mg/dL [place] [Mass/volume Hospital ] in Serum or Plasma ID Date Data Source [id number] 05/21/2019 07:44:00 AM [facility] Name Value Range Interpretation Code Description Data Bryanna rce(s) Supporting Document(s ) Urea 11.4 [place] nitrogen/Cre Hospital atinine [Mass Ratio] in Serum or Plasma ID Date Data Source [id number] 05/21/2019 07:44:00 AM [facility] Name Value Range Interpretation Description Data Sup porting Code Source(s) Document(s ) Creatinine 0.7 mg/dL [place] [Mass/volume] Hospital in Serum or Plasma ID Date Data Source [id number] 05/21/2019 07:44:00 AM [facility] Hospital Name Value Range Interpretation Description Data Sup porting Code Source(s) Document(s ) Urea nitrogen 8 mg/dL [place] [Mass/volume] Hospital in Serum or Plasma ID Date Data Source [id number] 05/21/2019 07:44:00 AM [facility] Value Range Interpretation Code Description Data Bryanna rce(s) Supporting Document(s ) Anion gap in 10 [place] Serum or [facility] Plasma ID Date Data Source [id number] 05/21/2019 07:44:00 AM [facility] Name Value Range Interpretation Description Data Sup porting Code Source(s) Document(s ) Carbon 29 mmol/L [place] dioxide, Hospital total [Moles/volu me] in Serum or Plasma ID Date Data Source [id number] 05/21/2019 07:44:00 AM [facility] Name Value Range Interpretation Description Data Sup porting Code Source(s) Document(s ) Chloride 106 [place] [Moles/volum mmol/L Hospital e] in Serum or Plasma ID Date Data Source [id number] 05/21/2019 07:44:00 AM [facility] Name Value Range Interpretation Description Data Sup porting Code Source(s) Document(s ) Potassium 3.5 [place] [Moles/volume mmol/L Hospital ] in Serum or Plasma ID Date Data Source [id number] 05/21/2019 07:44:00 AM [facility] Value Range Interpretation Description Data Sup porting Code Source(s) Document(s ) Sodium 141 mmol/L [place] [Moles/volu Hospital tx] in Serum or Plasma ID Date Data Source [id number] 05/21/2019 07:44:00 AM [facility] Value Range Interpretation Description Data Sup porting Code Source(s) Document(s ) Glucose 211 mg/dL [place] [Mass/volume Hospital ] in Serum or Plasma ID Date Data Source [id number] 05/21/2019 02:20:00 AM [facility] Value Range Interpretation Description Data Sup porting Code Source(s) Document(s ) Procalcitonin 1.1 [place] [Mass/volume] in ng/mL Hospital Serum or Plasma ID Date Data Source [id number] 05/21/2019 02:20:00 AM [facility] Value Range Interpretation Description Data Sup porting Code Source(s) Document(s ) Procalcitonin 1.1 [place] [Mass/volume] in ng/mL Hospital Serum or Plasma ID Date Data Source [id number] 05/21/2019 02:20:00 AM [facility] Value Range Interpretation Description Data Sup porting Code Source(s) Document(s ) Phosphate 2.5 mg/dL [place] [Mass/volume] Hospital in Serum or Plasma ID Date Data Source [id number] 05/21/2019 02:20:00 AM [facility] Value Range Interpretation Description Data Sup porting Code Source(s) Document(s ) Platelet mean 12.1 fL [facility] [Entitic volume] in Blood by Automated count ID Date Data Source [id number] 05/21/2019 02:20:00 AM EST [place] [facility] Name Value Range Interpretation Description Data Sup porting Code Source(s) Document(s ) Platelets 144 [place] [#/volume] in 10*3/uL Hospital Blood by Automated count ID Date Data Source [id number] 05/21/2019 02:20:00 AM [facility] Value Range Interpretation Description Data Sup porting Code Source(s) Document(s ) Erythrocyte 13.5 % [place] distribution Hospital width [Ratio] by Automated count ID Date Data Source [id number] 05/21/2019 02:20:00 AM [facility] Name Value Range Interpretation Description Data Sup porting Code Source(s) Document(s ) Erythrocyte mean 34.8 [place] corpuscular g/dL Hospital hemoglobin concentration [Mass/volume] by Automated count ID Date Data Source [id number] 05/21/2019 02:20:00 AM [facility] Value Range Interpretation Description Data Sup porting Code Source(s) Document(s ) Erythrocyte 29.0 pg [facility] corpuscular hemoglobin [Entitic mass] by Automated count ID Date Data Source [id number] 05/21/2019 02:20:00 AM [facility] Value Range Interpretation Description Data Sup porting Code Source(s) Document(s ) Erythrocyte 83.3 fL [facility] corpuscular volume [Entitic volume] by Automated count ID Date Data Source [id number] 05/21/2019 02:20:00 AM [facility] Name Value Range Interpretation Description Data Sup porting Code Source(s) Document(s ) Hematocrit 33.0 % [place] [Volume Hospital Fraction] of Blood by Automated count ID Date Data Source [id number] 05/21/2019 02:20:00 AM [facility] Value Range Interpretation Description Data Sup porting Code Source(s) Document(s ) Hemoglobin 11.5 g/dL [place] [Mass/volume] Hospital in Blood ID Date Data Source [id number] 05/21/2019 02:20:00 AM [facility] Name Value Range Interpretation Description Data Sup porting Code Source(s) Document(s ) Erythrocytes 3.96 [place] [#/volume] in 10*6/uL Hospital Blood by Automated count ID Date Data Source [id number] 05/21/2019 02:20:00 AM [facility] Name Value Range Interpretation Description Data Sup porting Code Source(s) Document(s ) Leukocytes 3.4 [place] [#/volume] in 10*3/uL Hospital Blood by Automated count ID Date Data Source [id number] 05/20/2019 08:14:00 PM [facility] Name Value Range Interpretation Description Data Sup porting Code Source(s) Document(s ) GLUCOSE RN Notified [facility] ID Date Data Source [id number] 05/20/2019 07:11:00 AM [facility] LOW MALE AND AVERAGE FEMALE CORONARY HEA RT DISEASE RISK. Name Value Range Interpretation Description Data Sup porting Code Source(s) Document(s ) Cholesterol 3.8 [place] .total/Chol {ratio} Hospital esterol in HDL [Mass Ratio] in Serum or Plasma ID Date Data Source [id number] 05/20/2019 07:11:00 AM [facility] Name Value Range Interpretation Description Data Sup porting Code Source(s) Document(s ) Cholesterol in 15 mg/dL [place] VLDL Hospital [Mass/volume] in Serum or Plasma by calculation ID Date Data Source [id number] 05/20/2019 07:11:00 AM [facility] Name Value Range Interpretation Description Data Sup porting Code Source(s) Document(s ) Cholesterol in 99 mg/dL [place] LDL Hospital [Mass/volume] in Serum or Plasma by Direct assay ID Date Data Source [id number] 05/20/2019 07:11:00 AM [facility] Name Value Range Interpretation Description Data Sup porting Code Source(s) Document(s ) Cholesterol in 48 mg/dL [place] HDL Hospital [Mass/volume] in Serum or Plasma ID Date Data Source [id number] 05/20/2019 07:11:00 AM [facility] Name Value Range Interpretation Description Data Sup porting Code Source(s) Document(s ) Triglyceride 75 mg/dL [place] [Mass/volume] in Hospital Serum or Plasma ID Date Data Source [id number] 05/20/2019 07:11:00 AM [facility] Name Value Range Interpretation Description Data Sup porting Code Source(s) Document(s ) Cholesterol 183 mg/dL [place] [Mass/volume] Hospital in Serum or Plasma ID Date Data Source [id number] 05/20/2019 07:11:00 AM [facility] LOW MALE AND AVERAGE FEMALE CORONARY HEA RT DISEASE RISK. Name Value Range Interpretation Description Data Sup porting Code Source(s) Document(s ) Cholesterol 3.8 [place] .total/Chol {ratio} Hospital esterol in HDL [Mass Ratio] in Serum or Plasma ID Date Data Source [id number] 05/20/2019 07:11:00 AM [facility] Name Value Range Interpretation Description Data Sup porting Code Source(s) Document(s ) Cholesterol in 15 mg/dL [place] VLDL Hospital [Mass/volume] in Serum or Plasma by calculation ID Date Data Source [id number] 05/20/2019 07:11:00 AM [facility] Name Value Range Interpretation Description Data Sup porting Code Source(s) Document(s ) Cholesterol in 99 mg/dL [place] LDL Hospital [Mass/volume] in Serum or Plasma by Direct assay ID Date Data Source [id number] 05/20/2019 07:11:00 AM [facility] Name Value Range Interpretation Description Data Sup porting Code Source(s) Document(s ) Cholesterol in 48 mg/dL [place] HDL Hospital [Mass/volume] in Serum or Plasma ID Date Data Source [id number] 05/20/2019 07:11:00 AM EST [place] [place] [facility] Name Value Range Interpretation Description Data Sup porting Code Source(s) Document(s ) Triglyceride 75 mg/dL [place] [Mass/volume] in Hospital Serum or Plasma ID Date Data Source [id number] 05/20/2019 07:11:00 AM [facility] Value Range Interpretation Description Data Sup porting Code Source(s) Document(s ) Cholesterol 183 mg/dL [place] [Mass/volume] Hospital in Serum or Plasma ID Date Data Source [id number] 05/20/2019 07:11:00 AM [facility] Name Value Range Interpretation Code Description Data Supporting Source(s) Document(s ) NUCLEATED RBCS 0.0 % [place] (AUTO Hospital DIFF%)DIS ID Date Data Source [id number] 05/20/2019 07:11:00 AM [facility] Name Value Range Interpretation Description Data Sup porting Code Source(s) Document(s ) Differential AUTOMATED [place] cell count Hospital method - Blood ID Date Data Source [id number] 05/20/2019 07:11:00 AM [facility] Name Value Range Interpretation Description Data Sup porting Code Source(s) Document(s ) Immature 0.01 [place] granulocytes 10*3/uL Hospital [#/volume] in Blood by Automated count ID Date Data Source [id number] 05/20/2019 07:11:00 AM [facility] Name Value Range Interpretation Description Data Sup porting Code Source(s) Document(s ) Basophils 0.04 [place] [#/volume] in 10*3/uL Hospital Blood by Automated count ID Date Data Source [id number] 05/20/2019 07:11:00 AM [facility] Value Range Interpretation Description Data Sup porting Code Source(s) Document(s ) Eosinophils 0.14 [place] [#/volume] in 10*3/uL Hospital Blood by Automated count ID Date Data Source [id number] 05/20/2019 07:11:00 AM [facility] Value Range Interpretation Description Data Sup porting Code Source(s) Document(s ) Monocytes 0.60 [place] [#/volume] in 10*3/uL Hospital Blood by Automated count ID Date Data Source [id number] 05/20/2019 07:11:00 AM [facility] Value Range Interpretation Description Data Sup porting Code Source(s) Document(s ) Lymphocytes 2.05 [place] [#/volume] in 10*3/uL Hospital Blood by Automated count ID Date Data Source [id number] 05/20/2019 07:11:00 AM [facility] Value Range Interpretation Description Data Sup porting Code Source(s) Document(s ) Neutrophils 1.12 [place] [#/volume] in 10*3/uL Hospital Blood by Automated count ID Date Data Source [id number] 05/20/2019 07:11:00 AM [facility] Value Range Interpretation Description Data Sup porting Code Source(s) Document(s ) Nucleated 0.0 % [place] erythrocytes/10 Hospital 0 leukocytes [Ratio] in Blood by Automated count ID Date Data Source [id number] 05/20/2019 07:11:00 AM EST [place] [facility] Name Value Range Interpretation Description Data Sup porting Code Source(s) Document(s ) Immature 0.3 % [place] granulocytes/10 Hospital 0 leukocytes in Blood by Automated count ID Date Data Source [id number] 05/20/2019 07:11:00 AM EST [place] [facility] Name Value Range Interpretation Description Data Sup porting Code Source(s) Document(s ) Basophils/100 1.0 % [place] leukocytes in Hospital Blood by Automated count ID Date Data Source [id number] 05/20/2019 07:11:00 AM [facility] Name Value Range Interpretation Description Data Sup porting Code Source(s) Document(s ) Eosinophils/100 3.5 % [place] leukocytes in Hospital Blood by Automated count ID Date Data Source [id number] 05/20/2019 07:11:00 AM EST [place] [facility] Name Value Range Interpretation Description Data Sup porting Code Source(s) Document(s ) Monocytes/100 15.2 % [place] leukocytes in Hospital Blood by Automated count ID Date Data Source [id number] 05/20/2019 07:11:00 AM EST [place] [facility] Name Value Range Interpretation Description Data Sup porting Code Source(s) Document(s ) Lymphocytes/10 51.8 % [place] 0 leukocytes Hospital in Blood by Automated count ID Date Data Source [id number] 05/20/2019 07:11:00 AM EST [place] [place] [facility] Name Value Range Interpretation Description Data Sup porting Code Source(s) Document(s ) Neutrophils/10 28.2 % [place] 0 leukocytes Hospital in Blood by Automated count ID Date Data Source [id number] 05/19/2019 03:33:00 PM EST [facility] Name Value Range Interpretation Code Description Data Bryanna rce(s) Supporting Document(s ) Cells 100 [facility] Hospital Total [#] in Blood ID Date Data Source [id number] 05/19/2019 03:33:00 PM EST [facility] Value Range Interpretation Code Description Data Supporting Source(s) Document(s ) PLATELET NORMAL [facility] Hospital ID Date Data Source [id number] 05/19/2019 03:33:00 PM EST [facility] Value Range Interpretation Code Description Data Bryanna rce(s) Supporting Document(s ) BINTA CELLS 1+ Health System ID Date Data Source [id number] 05/19/2019 03:33:00 PM EST [facility] Value Range Interpretation Code Description Data Bryanna rce(s) Supporting Document(s ) TARGET CELLS OCC [facility] ID Date Data Source [id number] 05/19/2019 03:33:00 PM EST [facility] Value Range Interpretation Code Description Data Bryanna rce(s) Supporting Document(s ) OVALOCYTES OCC Health [facility] ID Date Data Source [id number] 05/19/2019 03:33:00 PM EST [facility] Value Range Interpretation Description Data Sup porting Code Source(s) Document(s ) POIKILOCYTOSIS 1+ Health System ID Date Data Source [id number] 05/19/2019 03:33:00 PM EST [facility] Value Range Interpretation Description Data Sup porting Code Source(s) Document(s ) Basophils 0.03 [place] [#/volume] in 10*3/uL Hospital Blood by Manual count ID Date Data Source [id number] 05/19/2019 03:33:00 PM EST [place] [facility] Name Value Range Interpretation Description Data Sup porting Code Source(s) Document(s ) Eosinophils 0.03 [place] [#/volume] in 10*3/uL Hospital Blood by Manual count ID Date Data Source [id number] 05/19/2019 03:33:00 PM EST [facility] Name Value Range Interpretation Description Data Sup porting Code Source(s) Document(s ) Monocytes 0.33 [place] [#/volume] in 10*3/uL Hospital Blood by Manual count ID Date Data Source [id number] 05/19/2019 03:33:00 PM EST [facility] Name Value Range Interpretation Description Data Sup porting Code Source(s) Document(s ) Lymphocytes 0.43 [place] [#/volume] in 10*3/uL Hospital Blood by Manual count ID Date Data Source [id number] 05/19/2019 03:33:00 PM [facility] Value Range Interpretation Description Data Sup porting Code Source(s) Document(s ) Neutrophils 2.51 [place] [#/volume] in 10*3/uL Hospital Blood by Manual count ID Date Data Source [id number] 05/19/2019 03:33:00 PM [facility] Value Range Interpretation Description Data Sup porting Code Source(s) Document(s ) Basophils/100 1 % [place] leukocytes in Hospital Blood by Manual count ID Date Data Source [id number] 05/19/2019 03:33:00 PM EST [facility] Name Value Range Interpretation Description Data Sup porting Code Source(s) Document(s ) Eosinophils/100 1 % [place] leukocytes in Hospital Blood by Manual count ID Date Data Source [id number] 05/19/2019 03:33:00 PM EST [facility] Name Value Range Interpretation Description Data Sup porting Code Source(s) Document(s ) Monocytes/100 10 % [place] leukocytes in Hospital Blood by Manual count ID Date Data Source [id number] 05/19/2019 03:33:00 PM EST [facility] Name Value Range Interpretation Description Data Sup porting Code Source(s) Document(s ) Lymphocytes/100 13 % [place] leukocytes in Hospital Blood by Manual count ID Date Data Source [id number] 05/19/2019 03:33:00 PM EST [place] [facility] Name Value Range Interpretation Description Data Sup porting Code Source(s) Document(s ) Neutrophils/100 76 % [place] leukocytes in Hospital Blood by Manual count ID Date Data Source [id number] 05/19/2019 03:33:00 PM EST [facility] Name Value Range Interpretation Code Description Data Bryanna rce(s) Supporting Document(s ) Cells 100 [facility] Hospital Total [#] in Blood ID Date Data Source [id number] 05/19/2019 03:33:00 PM EST [facility] Value Range Interpretation Code Description Data Supporting Source(s) Document(s ) PLATELET NORMAL [facility] Hospital ID Date Data Source [id number] 05/19/2019 03:33:00 PM EST [facility] Name Value Range Interpretation Code Description Data Bryanna rce(s) Supporting Document(s ) BINTA CELLS 1+ [place] [facility] ID Date Data Source [id number] 05/19/2019 03:33:00 PM EST [facility] Name Value Range Interpretation Code Description Data Bryanna rce(s) Supporting Document(s ) TARGET CELLS OCC [place] [facility] ID Date Data Source [id number] 05/19/2019 03:33:00 PM EST [facility] Name Value Range Interpretation Code Description Data Bryanna rce(s) Supporting Document(s ) OVALOCYTES OCC [facility] ID Date Data Source [id number] 05/19/2019 03:33:00 PM EST [facility] Name Value Range Interpretation Description Data Sup porting Code Source(s) Document(s ) POIKILOCYTOSIS 1+ Health System ID Date Data Source [id number] 05/19/2019 03:33:00 PM EST [place] [facility] Name Value Range Interpretation Description Data Sup porting Code Source(s) Document(s ) Basophils 0.03 [place] [#/volume] in 10*3/uL Hospital Blood by Manual count ID Date Data Source [id number] 05/19/2019 03:33:00 PM EST [facility] Value Range Interpretation Description Data Sup porting Code Source(s) Document(s ) Eosinophils 0.03 [place] [#/volume] in 10*3/uL Hospital Blood by Manual count ID Date Data Source [id number] 05/19/2019 03:33:00 PM EST [facility] Value Range Interpretation Description Data Sup porting Code Source(s) Document(s ) Monocytes 0.33 [place] [#/volume] in 10*3/uL Hospital Blood by Manual count ID Date Data Source [id number] 05/19/2019 03:33:00 PM EST [facility] Name Value Range Interpretation Description Data Sup porting Code Source(s) Document(s ) Lymphocytes 0.43 [place] [#/volume] in 10*3/uL Hospital Blood by Manual count ID Date Data Source [id number] 05/19/2019 03:33:00 PM EST [facility] Name Value Range Interpretation Description Data Sup porting Code Source(s) Document(s ) Neutrophils 2.51 [place] [#/volume] in 10*3/uL Hospital Blood by Manual count ID Date Data Source [id number] 05/19/2019 03:33:00 PM EST [facility] Name Value Range Interpretation Description Data Sup porting Code Source(s) Document(s ) Basophils/100 1 % [place] leukocytes in [facility] Blood by Manual count ID Date Data Source [id number] 05/19/2019 03:33:00 PM [facility] Name Value Range Interpretation Description Data Sup porting Code Source(s) Document(s ) Eosinophils/100 1 % [place] leukocytes in Hospital Blood by Manual count ID Date Data Source [id number] 05/19/2019 03:33:00 PM [facility] Value Range Interpretation Description Data Sup porting Code Source(s) Document(s ) Monocytes/100 10 % [place] leukocytes in Hospital Blood by Manual count ID Date Data Source [id number] 05/19/2019 03:33:00 PM EST [facility] Name Value Range Interpretation Description Data Sup porting Code Source(s) Document(s ) Lymphocytes/100 13 % [place] leukocytes in Hospital Blood by Manual count ID Date Data Source [id number] 05/19/2019 03:33:00 PM [facility] Name Value Range Interpretation Description Data Sup porting Code Source(s) Document(s ) Neutrophils/100 76 % [place] leukocytes in Hospital Blood by Manual count ID Date Data Source [id number] 05/18/2019 10:05:00 AM [facility] [employer] Name Value Range Interpretation Description Data Sup porting Code Source(s) Document(s ) Glucose 291 mg/dL [place] [Mass/volume] [facility] in Capillary blood by Glucometer ID Date Data Source [id number] 05/18/2019 08:04:00 AM EST [place] [facility] Name Value Range Interpretation Description Data Sup porting Code Source(s) Document(s ) GLUCOSE Pre Meal [facility] ID Date Data Source [id number] 05/18/2019 02:12:00 AM [facility] Name Value Range Interpretation Description Data Sup porting Code Source(s) Document(s ) Lactate 1.4 [place] [Moles/volum mmol/L Hospital e] in Serum or Plasma ID Date Data Source [id number] 05/18/2019 02:12:00 AM [facility] Name Value Range Interpretation Description Data Sup porting Code Source(s) Document(s ) Lactate 1.4 [place] [Moles/volum mmol/L Hospital e] in Serum or Plasma ID Date Data Source [id number] 05/18/2019 02:12:00 AM [facility] Hospital Name Value Range Interpretation Description Data Sup porting Code Source(s) Document(s ) Calcium 8.5 mg/dL [place] [Mass/volume Hospital ] in Serum or Plasma ID Date Data Source [id number] 05/18/2019 02:12:00 AM [facility] Value Range Interpretation Code Description Data Bryanna rce(s) Supporting Document(s ) Urea 8.0 [place] nitrogen/Cre Hospital atinine [Mass Ratio] in Serum or Plasma ID Date Data Source [id number] 05/18/2019 02:12:00 AM [facility] Hospital Name Value Range Interpretation Description Data Sup porting Code Source(s) Document(s ) Creatinine 1.0 mg/dL [place] [Mass/volume] Hospital in Serum or Plasma ID Date Data Source [id number] 05/18/2019 02:12:00 AM [facility] Name Value Range Interpretation Description Data Sup porting Code Source(s) Document(s ) Urea nitrogen 8 mg/dL [place] [Mass/volume] Hospital in Serum or Plasma ID Date Data Source [id number] 05/18/2019 02:12:00 AM [facility] Name Value Range Interpretation Code Description Data Bryanna rce(s) Supporting Document(s ) Anion gap in 16 [place] Serum or [facility] Plasma ID Date Data Source [id number] 05/18/2019 02:12:00 AM [facility] Name Value Range Interpretation Description Data Sup porting Code Source(s) Document(s ) Carbon 26 mmol/L [place] dioxide, Hospital total [Moles/volu me] in Serum or Plasma ID Date Data Source [id number] 05/18/2019 02:12:00 AM [facility] Name Value Range Interpretation Description Data Sup porting Code Source(s) Document(s ) Chloride 95 mmol/L [place] [[facility] e] in Serum or Plasma ID Date Data Source [id number] 05/18/2019 02:12:00 AM [facility] Name Value Range Interpretation Description Data Sup porting Code Source(s) Document(s ) Potassium 3.8 [place] [[facility] mmol/L Hospital ] in Serum or Plasma ID Date Data Source [id number] 05/18/2019 02:12:00 AM [facility] Name Value Range Interpretation Description Data Sup porting Code Source(s) Document(s ) Sodium 133 mmol/L [place] [[facility] me] in Serum or Plasma ID Date Data Source [id number] 05/18/2019 02:12:00 AM [facility] NOTIFICATION AND READ BACK OF CRITICAL R ESULTS TO AMMON GREENWOOD RN AC AT 0506 ON 05/18/19 BY Danial Truong.PLEASE NOTE MARTINEZ GE IN CRITICAL GLUCOSE VALUES EFFECTIVE 04/22/17.REPORTED CRITICAL VALUES SHOULD B E INTERPRETED WITHIN CLINICAL CONTEXT. Name Value Range Interpretation Description Data Sup porting Code Source(s) Document(s ) Glucose 445 mg/dL [place] [[facility] ] in Serum or Plasma ID Date Data Source [id number] 05/17/2019 11:50:00 PM [facility] CUT-OFF >= 25 NG/ML.THE FINDINGS OF THE [...] rce(s) Supporting Document(s ) PCP (UR) NEGATIVE [facility] System ID Date Data Source [id number] 05/17/2019 11:50:00 PM [facility] CUT-OFF >= 50 NG/ML. Name Value Range Interpretation Code Description Data Bryanna rce(s) Supporting Document(s ) THC (UR) NEGATIVE [facility] System ID Date Data Source [id number] 05/17/2019 11:50:00 PM [facility] CUT-OFF >= 300 NG/ML. Name Value Range Interpretation Description Data Sup porting Code Source(s) Document(s ) OPIATES (UR) NEGATIVE [facility] System ID Date Data Source [id number] 05/17/2019 11:50:00 PM [facility] CUT-OFF >= 300 NG/ML. Name Value Range Interpretation Description Data Sup porting Code Source(s) Document(s ) COCAINE (UR) NEGATIVE [facility] System ID Date Data Source [id number] 05/17/2019 11:50:00 PM [facility] CUT-OFF >= 200 NG/ML. Name Value Range Interpretation Description Data Sup porting Code Source(s) Document(s ) BENZODIAZEPINES NEGATIVE [facility] (UR) [facility] ID Date Data Source [id number] 05/17/2019 11:50:00 PM [facility] CUT-OFF >= 200 NG/ML. Name Value Range Interpretation Description Data Sup porting Code Source(s) Document(s ) BARBITURATES NEGATIVE [place] (UR) Hospital ID Date Data Source [id number] 05/17/2019 11:50:00 PM [facility] CUT-OFF >= 1000 NG/ML. Name Value Range Interpretation Description Data Sup porting Code Source(s) Document(s ) AMPHETAMINES NEGATIVE [place] (UR) Hospital ID Date Data Source [id number] 05/17/2019 11:50:00 PM [facility] Name Value Range Interpretation Description Data Sup porting Code Source(s) Document(s ) Epithelial OCCASIONAL [place] cells.[facility] s [#/area] in Urine sediment by Microscopy high power field ID Date Data Source [id number] 05/17/2019 11:50:00 PM [facility] Name Value Range Interpretation Description Data Sup porting Code Source(s) Document(s ) Erythrocytes NEGATIVE [facility] [#/area] in /[HPF] [place] Urine sediment [facility] by Microscopy high power field ID Date Data Source [id number] 05/17/2019 11:50:00 PM [facility] Name Value Range Interpretation Description Data Sup porting Code Source(s) Document(s ) Leukocytes NEGATIVE [place] [#/area] in /[HPF] Hospital Urine sediment by Microscopy high power field ID Date Data Source [id number] 05/17/2019 11:50:00 PM [facility] Name Value Range Interpretation Description Data Sup porting Code Source(s) Document(s ) Leukocyte NEGATIVE [place] esterase Hospital [Presence] in Urine by Test strip ID Date Data Source [id number] 05/17/2019 11:50:00 PM [facility] Name Value Range Interpretation Description Data Sup porting Code Source(s) Document(s ) URINE NEGATIVE [place] NITRITES Hospital ID Date Data Source [id number] 05/17/2019 11:50:00 PM [facility] Name Value Range Interpretation Description Data Sup porting Code Source(s) Document(s ) Erythrocytes NEGATIVE [place] [#/volume] in Hospital Urine by Test strip ID Date Data Source [id number] 05/17/2019 11:50:00 PM [facility] Value Range Interpretation Code Description Data Bryanna rce(s) Supporting Document(s ) Bilirubin. NEGATIVE [place] total Hospital [Presence] in Urine by Test strip ID Date Data Source [id number] 05/17/2019 11:50:00 PM [facility] Value Range Interpretation Description Data Sup porting Code Source(s) Document(s ) Urobilinogen 0.2 [place] [Units/volume] mg/dL Hospital in Urine by Test strip ID Date Data Source [id number] 05/17/2019 11:50:00 PM [facility] Value Range Interpretation Code Description Data Bryanna rce(s) Supporting Document(s ) Ketones 2+ [place] [Mass/volume [facility] ] in Urine by Test strip ID Date Data Source [id number] 05/17/2019 11:50:00 PM [facility] Value Range Interpretation Code Description Data Bryanna rce(s) Supporting Document(s ) Glucose 3+ [place] [Mass/volume [facility] ] in Urine by Test strip ID Date Data Source [id number] 05/17/2019 11:50:00 PM [facility] Name Value Range Interpretation Code Description Data Bryanna rce(s) Supporting Document(s ) Protein TRACE [place] [Presence] Hospital in Urine by Test strip ID Date Data Source [id number] 05/17/2019 11:50:00 PM [facility] Name Value Range Interpretation Code Description Data Bryanna rce(s) Supporting Document(s ) pH of Urine 6.0 [place] by Test Hospital strip ID Date Data Source [id number] 05/17/2019 11:50:00 PM [facility] Name Value Range Interpretation Code Description Data Supporting Source(s) Document(s ) Specific 1.041 [place] gravity of Hospital Urine by Test strip ID Date Data Source [id number] 05/17/2019 11:50:00 PM [facility] Name Value Range Interpretation Description Data Sup porting Code Source(s) Document(s ) Clarity in Urine CLOUDY [place] by Refractometry Hospital automated ID Date Data Source [id number] 05/17/2019 11:50:00 PM [facility] Name Value Range Interpretation Code Description Data Bryanna rce(s) Supporting Document(s ) Color of YELLOW [place] Urine Hospital ID Date Data Source [id number] 05/17/2019 11:50:00 PM [facility] CUT-OFF >= 25 NG/ML.THE FINDINGS OF THE [...] rce(s) Supporting Document(s ) PCP (UR) NEGATIVE [facility] System ID Date Data Source [id number] 05/17/2019 11:50:00 PM [facility] CUT-OFF >= 50 NG/ML. Name Value Range Interpretation Code Description Data Bryanna rce(s) Supporting Document(s ) THC (UR) NEGATIVE [place] [facility] ID Date Data Source [id number] 05/17/2019 11:50:00 PM [facility] CUT-OFF >= 300 NG/ML. Name Value Range Interpretation Description Data Sup porting Code Source(s) Document(s ) OPIATES (UR) NEGATIVE [place] [facility] ID Date Data Source [id number] 05/17/2019 11:50:00 PM [facility] CUT-OFF >= 300 NG/ML. Name Value Range Interpretation Description Data Sup porting Code Source(s) Document(s ) COCAINE (UR) NEGATIVE [facility] System ID Date Data Source [id number] 05/17/2019 11:50:00 PM [facility] CUT-OFF >= 200 NG/ML. Name Value Range Interpretation Description Data Sup porting Code Source(s) Document(s ) BENZODIAZEPINES NEGATIVE [place] (UR) [facility] ID Date Data Source [id number] 05/17/2019 11:50:00 PM [facility] CUT-OFF >= 200 NG/ML. Name Value Range Interpretation Description Data Sup porting Code Source(s) Document(s ) BARBITURATES NEGATIVE [place] (UR) Hospital ID Date Data Source [id number] 05/17/2019 11:50:00 PM [facility] CUT-OFF >= 1000 NG/ML. Name Value Range Interpretation Description Data Sup porting Code Source(s) Document(s ) AMPHETAMINES NEGATIVE [place] (UR) Hospital ID Date Data Source [id number] 05/17/2019 11:50:00 PM [facility] Name Value Range Interpretation Description Data Sup porting Code Source(s) Document(s ) Epithelial OCCASIONAL [place] cells.[facility] s [#/area] in Urine sediment by Microscopy high power field ID Date Data Source [id number] 05/17/2019 11:50:00 PM [facility] Name Value Range Interpretation Description Data Sup porting Code Source(s) Document(s ) Erythrocytes NEGATIVE [facility] [#/area] in /[HPF] [place] Urine sediment Hospital by Microscopy high power field ID Date Data Source [id number] 05/17/2019 11:50:00 PM [facility] Name Value Range Interpretation Description Data Sup porting Code Source(s) Document(s ) Leukocytes NEGATIVE [place] [#/area] in /[HPF] Hospital Urine sediment by Microscopy high power field ID Date Data Source [id number] 05/17/2019 11:50:00 PM [facility] Name Value Range Interpretation Description Data Sup porting Code Source(s) Document(s ) Leukocyte NEGATIVE [place] esterase Hospital [Presence] in Urine by Test strip ID Date Data Source [id number] 05/17/2019 11:50:00 PM [facility] Name Value Range Interpretation Description Data Sup porting Code Source(s) Document(s ) URINE NEGATIVE [place] NITRITES Hospital ID Date Data Source [id number] 05/17/2019 11:50:00 PM [facility] Name Value Range Interpretation Description Data Sup porting Code Source(s) Document(s ) Erythrocytes NEGATIVE [place] [#/volume] in Hospital Urine by Test strip ID Date Data Source [id number] 05/17/2019 11:50:00 PM [facility] Name Value Range Interpretation Code Description Data Bryanna rce(s) Supporting Document(s ) Bilirubin. NEGATIVE [place] total Hospital [Presence] in Urine by Test strip ID Date Data Source [id number] 05/17/2019 11:50:00 PM [facility] Name Value Range Interpretation Description Data Sup porting Code Source(s) Document(s ) Urobilinogen 0.2 [place] [Units/volume] mg/dL Hospital in Urine by Test strip ID Date Data Source [id number] 05/17/2019 11:50:00 PM EST [place] [facility] Name Value Range Interpretation Code Description Data Bryanna rce(s) Supporting Document(s ) Ketones 2+ [place] [Mass/volume [facility] ] in Urine by Test strip ID Date Data Source [id number] 05/17/2019 11:50:00 PM [facility] Name Value Range Interpretation Code Description Data Bryanna rce(s) Supporting Document(s ) Glucose 3+ [place] [Mass/volume Hospital ] in Urine by Test strip ID Date Data Source [id number] 05/17/2019 11:50:00 PM [facility] Name Value Range Interpretation Code Description Data Bryanna rce(s) Supporting Document(s ) Protein TRACE [place] [Presence] Hospital in Urine by Test strip ID Date Data Source [id number] 05/17/2019 11:50:00 PM [facility] Name Value Range Interpretation Code Description Data Bryanna rce(s) Supporting Document(s ) pH of Urine 6.0 [place] by Test Hospital strip ID Date Data Source [id number] 05/17/2019 11:50:00 PM [facility] Name Value Range Interpretation Code Description Data Supporting Source(s) Document(s ) Specific 1.041 [place] gravity of Hospital Urine by Test strip ID Date Data Source [id number] 05/17/2019 11:50:00 PM [facility] Name Value Range Interpretation Description Data Sup porting Code Source(s) Document(s ) Clarity in Urine CLOUDY [place] by Refractometry [facility] automated ID Date Data Source [id number] 05/17/2019 11:50:00 PM [facility] Name Value Range Interpretation Code Description Data Bryanna rce(s) Supporting Document(s ) Color of YELLOW [place] Urine Hospital ID Date Data Source [id number] 05/17/2019 08:37:00 PM [facility] REFERENCE RANGES: NONE DETECTED <20 MG/DL NONE TO MILD EUPHORIA 20-49 MG/DL MILD EUPHORIA 50-99 MG/DL MODERATE EUPHORIA 100-149 MG/DL INTOXICATION 150-300 MG/DL Name Value Range Interpretation Description Data Sup porting Code Source(s) Document(s ) Ethanol < 20 [place] [Mass/volume mg/dL Hospital ] in Serum or Plasma ID Date Data Source [id number] 05/17/2019 08:37:00 PM [facility] TEST RESULT IS A TOTAL TRICYCLIC VALUE.T [...] Code Source(s) Document(s ) TRICYCLIC < 80 [place] ANTIDEPRESSANT ng/mL Hospital ID Date Data Source [id number] 05/17/2019 08:37:00 PM [facility] REFERENCE RANGES: ANALGESIC: 0.0 - 10.0 MG/DL. ARTHRITIC THERAPY: 15.0 - 30.0 MG/DL. Name Value Range Interpretation Description Data Sup porting Code Source(s) Document(s ) Salicylates < 3.0 [place] [Mass/volume] mg/dL Hospital in Serum or Plasma ID Date Data Source [id number] 05/17/2019 08:37:00 PM [facility] THERAPEUTIC RANGE: 10.0-30.0 UG/MLTOXIC RANGE: 4 HRS AFTER INGESTION >150 UG/ML 12 HRS AFTER INGESTION >35 UG/ML Name Value Range Interpretation Description Data Sup porting Code Source(s) Document(s ) ACETAMINOPHEN < 10.0 [place] ug/mL Hospital ID Date Data Source [id number] 05/17/2019 08:37:00 PM [facility] Name Value Range Interpretation Description Data Sup porting Code Source(s) Document(s ) OSMOLALITY 309 [place] (SERUM) mosm/kg Hospital ID Date Data Source [id number] 05/17/2019 08:37:00 PM [facility] REFERENCE RANGES: NONE DETECTED <20 MG/DL NONE TO MILD EUPHORIA 20-49 MG/DL MILD EUPHORIA 50-99 MG/DL MODERATE EUPHORIA 100-149 MG/DL INTOXICATION 150-300 MG/DL Name Value Range Interpretation Description Data Sup porting Code Source(s) Document(s ) Ethanol < 20 [place] [Mass/volume mg/dL Hospital ] in Serum or Plasma ID Date Data Source [id number] 05/17/2019 08:37:00 PM [facility] TEST RESULT IS A TOTAL TRICYCLIC VALUE.T [...] Code Source(s) Document(s ) TRICYCLIC < 80 [place] ANTIDEPRESSANT ng/mL Hospital ID Date Data Source [id number] 05/17/2019 08:37:00 PM [facility] REFERENCE RANGES: ANALGESIC: 0.0 - 10.0 MG/DL. ARTHRITIC THERAPY: 15.0 - 30.0 MG/DL. Name Value Range Interpretation Description Data Sup porting Code Source(s) Document(s ) Salicylates < 3.0 [place] [Mass/volume] mg/dL Hospital in Serum or Plasma ID Date Data Source [id number] 05/17/2019 08:37:00 PM [facility] THERAPEUTIC RANGE: 10.0-30.0 UG/MLTOXIC RANGE: 4 HRS AFTER INGESTION >150 UG/ML 12 HRS AFTER INGESTION >35 UG/ML Name Value Range Interpretation Description Data Sup porting Code Source(s) Document(s ) ACETAMINOPHEN < 10.0 [place] ug/mL Hospital ID Date Data Source [id number] 05/17/2019 08:37:00 PM [facility] ADA RECOMMENDATIONS: NON-DIABETES: 4.0-6.0% CONTROLLED DIABETES: 6.0-8.0% UNCONTROLLED DIABETE S: UP TO 20%RECOMMENDED ADA RESULT FOR THERAPY: HEMOGLOBIN A1C RESULT LESS GM N 7%.NOTE: METHOD CHANGE EFFECTIVE 11/11/14. Name Value Range Interpretation Description Data Sup porting Code Source(s) Document(s ) Hemoglobin 10.4 % [place] A1c/Hemoglobin Hospital .total in Blood ID Date Data Source [id number] 05/17/2019 08:37:00 PM [facility] Name Value Range Interpretation Description Data Sup porting Code Source(s) Document(s ) OSMOLALITY 309 [place] (SERUM) mosm/kg Hospital ID Date Data Source [id number] 05/17/2019 08:37:00 PM [facility] Name Value Range Interpretation Description Data Sup porting Code Source(s) Document(s ) Aspartate 37 U/L [place] aminotransferase [place] [Enzymatic Hospital activity/volume] in Serum or Plasma ID Date Data Source [id number] 05/17/2019 08:37:00 PM [facility] Name Value Range Interpretation Description Data Sup porting Code Source(s) Document(s ) Alanine 22 U/L [place] aminotransferase [place] [Enzymatic Hospital activity/volume] in Serum or Plasma ID Date Data Source [id number] 05/17/2019 08:37:00 PM EST [place] [facility] Name Value Range Interpretation Description Data Sup porting Code Source(s) Document(s ) Alkaline 87 U/L [place] phosphatase Hospital [Enzymatic activity/volume ] in Serum or Plasma ID Date Data Source [id number] 05/17/2019 08:37:00 PM [facility] Name Value Range Interpretation Description Data Sup porting Code Source(s) Document(s ) Bilirubin.t 1.4 mg/dL [facility] [Mass/volum e] in Serum or Plasma ID Date Data Source [id number] 05/17/2019 08:37:00 PM [facility] Name Value Range Interpretation Code Description Data Bryanna rce(s) Supporting Document(s ) Albumin/Glob 1.4 [facility] [Mass Hospital Ratio] in Serum or Plasma ID Date Data Source [id number] 05/17/2019 08:37:00 PM [facility] Name Value Range Interpretation Description Data Sup porting Code Source(s) Document(s ) Albumin 3.8 g/dL [place] [Mass/volume Hospital ] in Serum or Plasma ID Date Data Source [id number] 05/17/2019 08:37:00 PM [facility] Name Value Range Interpretation Description Data Sup porting Code Source(s) Document(s ) Protein 6.6 g/dL [place] [Mass/volume Hospital ] in Serum or Plasma ID Date Data Source [id number] 05/17/2019 08:37:00 PM [facility] Name Value Range Interpretation Description Data Sup porting Code Source(s) Document(s ) Leukocytes 3.1 [place] [#/volume] in 10*3/uL [facility] Blood by Automated count ID Date Data Source [id number] 05/17/2019 08:37:00 PM [facility] REFERENCE RANGES: NONE DETECTED <20 MG/DL NONE TO MILD EUPHORIA 20-49 MG/DL MILD EUPHORIA 50-99 MG/DL MODERATE EUPHORIA 100-149 MG/DL INTOXICATION 150-300 MG/DL Name Value Range Interpretation Description Data Sup porting Code Source(s) Document(s ) Ethanol < 20 [place] [Mass/volume mg/dL Hospital ] in Serum or Plasma ID Date Data Source [id number] 05/17/2019 08:37:00 PM [facility] TEST RESULT IS A TOTAL TRICYCLIC VALUE.T [...] Code Source(s) Document(s ) TRICYCLIC < 80 [place] ANTIDEPRESSANT ng/mL Hospital ID Date Data Source [id number] 05/17/2019 08:37:00 PM [facility] REFERENCE RANGES: ANALGESIC: 0.0 - 10.0 MG/DL. ARTHRITIC THERAPY: 15.0 - 30.0 MG/DL. Name Value Range Interpretation Description Data Sup porting Code Source(s) Document(s ) Salicylates < 3.0 [place] [Mass/volume] mg/dL Hospital in Serum or Plasma ID Date Data Source [id number] 05/17/2019 08:37:00 PM [facility] THERAPEUTIC RANGE: 10.0-30.0 UG/MLTOXIC RANGE: 4 HRS AFTER INGESTION >150 UG/ML 12 HRS AFTER INGESTION >35 UG/ML Name Value Range Interpretation Description Data Sup porting Code Source(s) Document(s ) ACETAMINOPHEN < 10.0 [place] ug/mL Hospital ID Date Data Source [id number] 05/17/2019 08:37:00 PM [facility] ADA RECOMMENDATIONS: NON-DIABETES: 4.0-6.0% CONTROLLED DIABETES: 6.0-8.0% UNCONTROLLED DIABETE S: UP TO 20%RECOMMENDED ADA RESULT FOR THERAPY: HEMOGLOBIN A1C RESULT LESS GM N 7%.NOTE: METHOD CHANGE EFFECTIVE 11/11/14. Name Value Range Interpretation Description Data Sup porting Code Source(s) Document(s ) Hemoglobin 10.4 % [place] A1c/Hemoglobin Hospital .total in Blood ID Date Data Source [id number] 05/17/2019 08:37:00 PM [facility] TEST PERFORMED BY [employer] ULTRA SENSITIVE [facility] CHEMILUMINESCENCE METHOD. Name Value Range Interpretation Description Data Sup porting Code Source(s) Document(s ) Troponin 0.05 [place] I.cardiac ng/mL Hospital [Mass/volume ] in Serum or Plasma ID Date Data Source [id number] 05/17/2019 08:37:00 PM [facility] Name Value Range Interpretation Description Data Sup porting Code Source(s) Document(s ) OSMOLALITY 309 [place] (SERUM) mosm/kg Hospital ID Date Data Source [id number] 05/17/2019 08:37:00 PM [facility] Name Value Range Interpretation Description Data Sup porting Code Source(s) Document(s ) Phosphate 2.2 mg/dL [place] [Mass/volume] Hospital in Serum or Plasma ID Date Data Source [id number] 05/17/2019 08:37:00 PM EST [facility] [place] [facility] Name Value Range Interpretation Description Data Sup porting Code Source(s) Document(s ) Magnesium 1.3 mg/dL [place] [Mass/volume] Hospital in Serum or Plasma ID Date Data Source [id number] 05/17/2019 08:37:00 PM [facility] Name Value Range Interpretation Description Data Sup porting Code Source(s) Document(s ) Aspartate 37 U/L [place] aminotransferase [place] [Enzymatic Hospital activity/volume] in Serum or Plasma ID Date Data Source [id number] 05/17/2019 08:37:00 PM [facility] Name Value Range Interpretation Description Data Sup porting Code Source(s) Document(s ) Alanine 22 U/L [place] aminotransferase [place] [Enzymatic Hospital activity/volume] in Serum or Plasma ID Date Data Source [id number] 05/17/2019 08:37:00 PM EST [facility] Name Value Range Interpretation Description Data Sup porting Code Source(s) Document(s ) Alkaline 87 U/L [place] phosphatase Hospital [Enzymatic activity/volume ] in Serum or Plasma ID Date Data Source [id number] 05/17/2019 08:37:00 PM EST [facility] Name Value Range Interpretation Description Data Sup porting Code Source(s) Document(s ) Bilirubin.t 1.4 mg/dL [facility] [Mass/volum e] in Serum or Plasma ID Date Data Source [id number] 05/17/2019 08:37:00 PM [facility] Name Value Range Interpretation Code Description Data Bryanna rce(s) Supporting Document(s ) Albumin/Glob 1.4 [place] ulin [Mass Hospital Ratio] in Serum or Plasma ID Date Data Source [id number] 05/17/2019 08:37:00 PM [facility] Name Value Range Interpretation Description Data Sup porting Code Source(s) Document(s ) Albumin 3.8 g/dL [place] [Mass/volume Hospital ] in Serum or Plasma ID Date Data Source [id number] 05/17/2019 08:37:00 PM [facility] Name Value Range Interpretation Description Data Sup porting Code Source(s) Document(s ) Protein 6.6 g/dL [place] [Mass/volume Hospital ] in Serum or Plasma ID Date Data Source [id number] 05/17/2019 08:37:00 PM [facility] Value Range Interpretation Code Description Data Supporting Source(s) Document(s ) NUCLEATED RBCS 0.0 % [place] (AUTO Hospital DIFF%)DIS ID Date Data Source [id number] 05/17/2019 08:37:00 PM [facility] Value Range Interpretation Description Data Sup porting Code Source(s) Document(s ) Differential AUTOMATED [place] cell count Hospital method - Blood ID Date Data Source [id number] 05/17/2019 08:37:00 PM [facility] Value Range Interpretation Description Data Sup porting Code Source(s) Document(s ) Immature 0.00 [place] granulocytes 10*3/uL Hospital [#/volume] in Blood by Automated count ID Date Data Source [id number] 05/17/2019 08:37:00 PM [facility] Name Value Range Interpretation Description Data Sup porting Code Source(s) Document(s ) Basophils 0.04 [place] [#/volume] in 10*3/uL Hospital Blood by Automated count ID Date Data Source [id number] 05/17/2019 08:37:00 PM [facility] Name Value Range Interpretation Description Data Sup porting Code Source(s) Document(s ) Eosinophils 0.05 [place] [#/volume] in 10*3/uL Hospital Blood by Automated count ID Date Data Source [id number] 05/17/2019 08:37:00 PM [facility] Name Value Range Interpretation Description Data Sup porting Code Source(s) Document(s ) Monocytes 0.46 [place] [#/volume] in 10*3/uL Hospital Blood by Automated count ID Date Data Source [id number] 05/17/2019 08:37:00 PM [facility] Value Range Interpretation Description Data Sup porting Code Source(s) Document(s ) Lymphocytes 1.38 [place] [#/volume] in 10*3/uL [facility] Blood by Automated count ID Date Data Source [id number] 05/17/2019 08:37:00 PM [facility] Value Range Interpretation Description Data Sup porting Code Source(s) Document(s ) Neutrophils 1.12 [place] [#/volume] in 10*3/uL [facility] Blood by Automated count ID Date Data Source [id number] 05/17/2019 08:37:00 PM [facility] Value Range Interpretation Description Data Sup porting Code Source(s) Document(s ) Nucleated 0.0 % [place] erythrocytes/10 Hospital 0 leukocytes [Ratio] in Blood by Automated count ID Date Data Source [id number] 05/17/2019 08:37:00 PM [facility] Value Range Interpretation Description Data Sup porting Code Source(s) Document(s ) Immature 0.0 % [place] granulocytes/10 Hospital 0 leukocytes in Blood by Automated count ID Date Data Source [id number] 05/17/2019 08:37:00 PM [facility] Value Range Interpretation Description Data Sup porting Code Source(s) Document(s ) Basophils/100 1.3 % [place] leukocytes in Hospital Blood by Automated count ID Date Data Source [id number] 05/17/2019 08:37:00 PM [facility] Name Value Range Interpretation Description Data Sup porting Code Source(s) Document(s ) Eosinophils/100 1.6 % [place] leukocytes in Hospital Blood by Automated count ID Date Data Source [id number] 05/17/2019 08:37:00 PM [facility] Name Value Range Interpretation Description Data Sup porting Code Source(s) Document(s ) Monocytes/100 15.1 % [place] leukocytes in Hospital Blood by Automated count ID Date Data Source [id number] 05/17/2019 08:37:00 PM EST [facility] Value Range Interpretation Description Data Sup porting Code Source(s) Document(s ) Lymphocytes/10 45.2 % [place] 0 leukocytes Hospital in Blood by Automated count ID Date Data Source [id number] 05/17/2019 08:37:00 PM [facility] Name Value Range Interpretation Description Data Sup porting Code Source(s) Document(s ) Neutrophils/10 36.8 % [place] 0 leukocytes Hospital in Blood by Automated count ID Date Data Source [id number] 05/17/2019 08:37:00 PM EST [facility] Value Range Interpretation Description Data Sup porting Code Source(s) Document(s ) Platelet mean 12.8 fL [place] volume Hospital [Entitic volume] in Blood by Automated count ID Date Data Source [id number] 05/17/2019 08:37:00 PM [facility] Name Value Range Interpretation Description Data Sup porting Code Source(s) Document(s ) Platelets 175 [place] [#/volume] in 10*3/uL Hospital Blood by Automated count ID Date Data Source [id number] 05/17/2019 08:37:00 PM EST [place] [facility] Name Value Range Interpretation Description Data Sup porting Code Source(s) Document(s ) Erythrocyte 12.8 % [facility] Hospital width [Ratio] by Automated count ID Date Data Source [id number] 05/17/2019 08:37:00 PM [facility] Value Range Interpretation Description Data Sup porting Code Source(s) Document(s ) Erythrocyte mean 34.6 [place] corpuscular g/dL Hospital hemoglobin concentration [Mass/volume] by Automated count ID Date Data Source [id number] 05/17/2019 08:37:00 PM [facility] Value Range Interpretation Description Data Sup porting Code Source(s) Document(s ) Erythrocyte 28.4 pg [facility] corpuscular hemoglobin [Entitic mass] by Automated count ID Date Data Source [id number] 05/17/2019 08:37:00 PM [facility] Value Range Interpretation Description Data Sup porting Code Source(s) Document(s ) Erythrocyte 82.3 fL [facility] corpuscular volume [Entitic volume] by Automated count ID Date Data Source [id number] 05/17/2019 08:37:00 PM [facility] Value Range Interpretation Description Data Sup porting Code Source(s) Document(s ) Hematocrit 37.6 % [place] [Volume Hospital Fraction] of Blood by Automated count ID Date Data Source [id number] 05/17/2019 08:37:00 PM [facility] Value Range Interpretation Description Data Sup porting Code Source(s) Document(s ) Hemoglobin 13.0 g/dL [place] [Mass/volume] Hospital in Blood ID Date Data Source [id number] 05/17/2019 08:37:00 PM [facility] Value Range Interpretation Description Data Sup porting Code Source(s) Document(s ) Erythrocytes 4.57 [place] [#/volume] in 10*6/uL Hospital Blood by Automated count ID Date Data Source [id number] 04/29/2019 03:58:00 PM [facility] Name Value Range Interpretation Description Data Sup porting Code Source(s) Document(s ) GLUCOSE RN Notified [facility] ID Date Data Source [id number] 04/29/2019 03:58:00 PM [facility] Manager Energy:[employer]LEY Name Value Range Interpretation Description Data Sup porting Code Source(s) Document(s ) Glucose 106 mg/dL [place] [Mass/volume] Hospital in Capillary blood by Glucometer ID Date Data Source [id number] 04/29/2019 12:14:00 PM [facility] Name Value Range Interpretation Description Data Sup porting Code Source(s) Document(s ) Calcium 9.6 mg/dL [place] [Mass/volume Hospital ] in Serum or Plasma ID Date Data Source [id number] 04/29/2019 12:14:00 PM [facility] Name Value Range Interpretation Code Description Data Bryanna rce(s) Supporting Document(s ) Urea 23.8 [place] nitrogen/Cre Hospital atinine [Mass Ratio] in Serum or Plasma ID Date Data Source [id number] 04/29/2019 12:14:00 PM [facility] Name Value Range Interpretation Description Data Sup porting Code Source(s) Document(s ) Creatinine 0.8 mg/dL [place] [Mass/volume] Hospital in Serum or Plasma ID Date Data Source [id number] 04/29/2019 12:14:00 PM [facility] Name Value Range Interpretation Description Data Sup porting Code Source(s) Document(s ) Urea 19 mg/dL [place] nitrogen Hospital [Mass/volume ] in Serum or Plasma ID Date Data Source [id number] 04/29/2019 12:14:00 PM EST [place] [facility] Name Value Range Interpretation Code Description Data Bryanna rce(s) Supporting Document(s ) Anion gap in 8 [place] Serum or [facility] Plasma ID Date Data Source [id number] 04/29/2019 12:14:00 PM [facility] Name Value Range Interpretation Description Data Sup porting Code Source(s) Document(s ) Carbon 31 mmol/L [place] dioxide, Hospital total [Moles/volu me] in Serum or Plasma ID Date Data Source [id number] 04/29/2019 12:14:00 PM [facility] Name Value Range Interpretation Description Data Sup porting Code Source(s) Document(s ) Chloride 105 [place] [Moles/volum mmol/L Hospital e] in Serum or Plasma ID Date Data Source [id number] 04/29/2019 12:14:00 PM [facility] Name Value Range Interpretation Description Data Sup porting Code Source(s) Document(s ) Potassium 4.2 [place] [Moles/volume mmol/L Hospital ] in Serum or Plasma ID Date Data Source [id number] 04/29/2019 12:14:00 PM [facility] Hospital Name Value Range Interpretation Description Data Sup porting Code Source(s) Document(s ) Sodium 140 mmol/L [place] [Moles/volu Hospital me] in Serum or Plasma ID Date Data Source [id number] 04/29/2019 12:14:00 PM [facility] NOTIFICATION AND READ BACK OF CRITICAL R ESULTS TO KIMBERLEY BOO RN-AC AT 1318 ON 04/29/19 BY Gena Keene.PLEASE NOTE FIDEL NGE IN CRITICAL GLUCOSE VALUES EFFECTIVE 04/22/17.REPORTED CRITICAL VALUES SHOULD B E INTERPRETED WITHIN CLINICAL CONTEXT. Name Value Range Interpretation Description Data Sup porting Code Source(s) Document(s ) Glucose 46 mg/dL [place] [Mass/volume Hospital ] in Serum or Plasma ID Date Data Source [id number] 04/29/2019 12:14:00 PM [facility] Name Value Range Interpretation Description Data Sup porting Code Source(s) Document(s ) Platelet mean 12.2 fL [place] volume Hospital [Entitic volume] in Blood by Automated count ID Date Data Source [id number] 04/29/2019 12:14:00 PM [facility] Name Value Range Interpretation Description Data Sup porting Code Source(s) Document(s ) Platelets 173 [place] [#/volume] in 10*3/uL Hospital Blood by Automated count ID Date Data Source [id number] 04/29/2019 12:14:00 PM [facility] Name Value Range Interpretation Description Data Sup porting Code Source(s) Document(s ) Erythrocyte 14.0 % [facility] Hospital width [Ratio] by Automated count ID Date Data Source [id number] 04/29/2019 12:14:00 PM [facility] Name Value Range Interpretation Description Data Sup porting Code Source(s) Document(s ) Erythrocyte mean 33.1 [place] corpuscular g/dL Hospital hemoglobin concentration [Mass/volume] by Automated count ID Date Data Source [id number] 04/29/2019 12:14:00 PM [facility] Name Value Range Interpretation Description Data Sup porting Code Source(s) Document(s ) Erythrocyte 29.1 pg [place] mean Hospital corpuscular hemoglobin [Entitic mass] by Automated count ID Date Data Source [id number] 04/29/2019 12:14:00 PM [facility] Name Value Range Interpretation Description Data Sup porting Code Source(s) Document(s ) Erythrocyte 87.9 fL [place] mean Hospital corpuscular volume [Entitic volume] by Automated count ID Date Data Source [id number] 04/29/2019 12:14:00 PM [facility] Name Value Range Interpretation Description Data Sup porting Code Source(s) Document(s ) Hematocrit 37.2 % [place] [Volume Hospital Fraction] of Blood by Automated count ID Date Data Source [id number] 04/29/2019 12:14:00 PM [facility] Value Range Interpretation Description Data Sup porting Code Source(s) Document(s ) Hemoglobin 12.3 g/dL [place] [Mass/volume] Hospital in Blood ID Date Data Source [id number] 04/29/2019 12:14:00 PM [facility] Name Value Range Interpretation Description Data Sup porting Code Source(s) Document(s ) Erythrocytes 4.23 [place] [#/volume] in 10*6/uL Hospital Blood by Automated count ID Date Data Source [id number] 04/29/2019 12:14:00 PM [facility] Value Range Interpretation Description Data Sup porting Code Source(s) Document(s ) Leukocytes 5.9 [place] [#/volume] in 10*3/uL Hospital Blood by Automated count ID Date Data Source [id number] 04/16/2019 02:05:00 PM [facility] Manager [employer] Name Value Range Interpretation Description Data Sup porting Code Source(s) Document(s ) Glucose 80 mg/dL [place] [Mass/volume] [facility] in Capillary blood by Glucometer ID Date Data Source [id number] 04/16/2019 12:13:00 PM [facility] Name Value Range Interpretation Description Data Sup porting Code Source(s) Document(s ) Leukocyte NEGATIVE [place] esterase Hospital [Presence] in Urine by Test strip ID Date Data Source [id number] 04/16/2019 12:13:00 PM EST [place] [facility] Name Value Range Interpretation Description Data Sup porting Code Source(s) Document(s ) URINE NEGATIVE [place] NITRITES Hospital ID Date Data Source [id number] 04/16/2019 12:13:00 PM [facility] Name Value Range Interpretation Description Data Sup porting Code Source(s) Document(s ) Erythrocytes NEGATIVE [place] [#/volume] in Hospital Urine by Test strip ID Date Data Source [id number] 04/16/2019 12:13:00 PM [facility] Value Range Interpretation Code Description Data Bryanna rce(s) Supporting Document(s ) Bilirubin. NEGATIVE [place] total Hospital [Presence] in Urine by Test strip ID Date Data Source [id number] 04/16/2019 12:13:00 PM [facility] Name Value Range Interpretation Description Data Sup porting Code Source(s) Document(s ) Urobilinogen 0.2 [place] [Units/volume] mg/dL Hospital in Urine by Test strip ID Date Data Source [id number] 04/16/2019 12:13:00 PM [facility] Hospital Name Value Range Interpretation Description Data Sup porting Code Source(s) Document(s ) Ketones NEGATIVE [place] [Mass/volume Hospital ] in Urine by Test strip ID Date Data Source [id number] 04/16/2019 12:13:00 PM [facility] Hospital Name Value Range Interpretation Code Description Data Bryanna rce(s) Supporting Document(s ) Glucose 3+ [place] [Mass/volume Hospital ] in Urine by Test strip ID Date Data Source [id number] 04/16/2019 12:13:00 PM [facility] Name Value Range Interpretation Description Data Sup porting Code Source(s) Document(s ) Protein NEGATIVE [place] [Presence] Hospital in Urine by Test strip ID Date Data Source [id number] 04/16/2019 12:13:00 PM [facility] Name Value Range Interpretation Code Description Data Bryanna rce(s) Supporting Document(s ) pH of Urine 7.0 [place] by Test Hospital strip ID Date Data Source [id number] 04/16/2019 12:13:00 PM [facility] Name Value Range Interpretation Code Description Data Supporting Source(s) Document(s ) Specific 1.036 [place] gravity of Hospital Urine by Test strip ID Date Data Source [id number] 04/16/2019 12:13:00 PM [facility] Name Value Range Interpretation Description Data Sup porting Code Source(s) Document(s ) Clarity in Urine CLEAR [place] by Refractometry Hospital automated ID Date Data Source [id number] 04/16/2019 12:13:00 PM [facility] Name Value Range Interpretation Code Description Data Bryanna rce(s) Supporting Document(s ) Color of YELLOW [place] Urine Hospital ID Date Data Source [id number] 04/16/2019 12:13:00 PM [facility] Name Value Range Interpretation Description Data Sup porting Code Source(s) Document(s ) Leukocyte NEGATIVE [place] esterase Hospital [Presence] in Urine by Test strip ID Date Data Source [id number] 04/16/2019 12:13:00 PM EST [place] [facility] Name Value Range Interpretation Description Data Sup porting Code Source(s) Document(s ) URINE NEGATIVE [place] NITRITES Hospital ID Date Data Source [id number] 04/16/2019 12:13:00 PM [facility] Hospital Name Value Range Interpretation Description Data Sup porting Code Source(s) Document(s ) Erythrocytes NEGATIVE [place] [#/volume] in Hospital Urine by Test strip ID Date Data Source [id number] 04/16/2019 12:13:00 PM [facility] Hospital Name Value Range Interpretation Code Description Data Bryanna rce(s) Supporting Document(s ) Bilirubin. NEGATIVE [place] total Hospital [Presence] in Urine by Test strip ID Date Data Source [id number] 04/16/2019 12:13:00 PM [facility] Name Value Range Interpretation Description Data Sup porting Code Source(s) Document(s ) Urobilinogen 0.2 [place] [Units/volume] mg/dL Hospital in Urine by Test strip ID Date Data Source [id number] 04/16/2019 12:13:00 PM [facility] Hospital Name Value Range Interpretation Description Data Sup porting Code Source(s) Document(s ) Ketones NEGATIVE [place] [Mass/volume Hospital ] in Urine by Test strip ID Date Data Source [id number] 04/16/2019 12:13:00 PM [facility] Hospital Name Value Range Interpretation Code Description Data Bryanna rce(s) Supporting Document(s ) Glucose 3+ [place] [Mass/volume Hospital ] in Urine by Test strip ID Date Data Source [id number] 04/16/2019 12:13:00 PM EST [place] [facility] Name Value Range Interpretation Description Data Sup porting Code Source(s) Document(s ) Protein NEGATIVE [place] [Presence] Hospital in Urine by Test strip ID Date Data Source [id number] 04/16/2019 12:13:00 PM [facility] Hospital Name Value Range Interpretation Code Description Data Bryanna rce(s) Supporting Document(s ) pH of Urine 7.0 [place] by Test Hospital strip ID Date Data Source [id number] 04/16/2019 12:13:00 PM [facility] Name Value Range Interpretation Code Description Data Supporting Source(s) Document(s ) Specific 1.036 [place] gravity of Hospital Urine by Test strip ID Date Data Source [id number] 04/16/2019 12:13:00 PM [facility] Name Value Range Interpretation Description Data Sup porting Code Source(s) Document(s ) Clarity in Urine CLEAR [place] by Refractometry [facility] automated ID Date Data Source [id number] 04/16/2019 12:13:00 PM [facility] Name Value Range Interpretation Code Description Data Bryanna rce(s) Supporting Document(s ) Color of YELLOW [place] Urine Hospital ID Date Data Source [id number] 04/16/2019 11:33:00 AM [facility] Name Value Range Interpretation Description Data Sup porting Code Source(s) Document(s ) Immature 0.02 [place] granulocytes 10*3/uL Hospital [#/volume] in Blood by Automated count ID Date Data Source [id number] 04/16/2019 11:33:00 AM [facility] Name Value Range Interpretation Description Data Sup porting Code Source(s) Document(s ) Basophils 0.04 [place] [#/volume] in 10*3/uL Hospital Blood by Automated count ID Date Data Source [id number] 04/16/2019 11:33:00 AM [facility] Name Value Range Interpretation Description Data Sup porting Code Source(s) Document(s ) Eosinophils 0.11 [place] [#/volume] in 10*3/uL Hospital Blood by Automated count ID Date Data Source [id number] 04/16/2019 11:33:00 AM [facility] Name Value Range Interpretation Description Data Sup porting Code Source(s) Document(s ) Monocytes 0.60 [place] [#/volume] in 10*3/uL Hospital Blood by Automated count ID Date Data Source [id number] 04/16/2019 11:33:00 AM [facility] Value Range Interpretation Description Data Sup porting Code Source(s) Document(s ) Lymphocytes 1.42 [place] [#/volume] in 10*3/uL Hospital Blood by Automated count ID Date Data Source [id number] 04/16/2019 11:33:00 AM [facility] Value Range Interpretation Description Data Sup porting Code Source(s) Document(s ) Neutrophils 3.35 [place] [#/volume] in 10*3/uL [facility] Blood by Automated count ID Date Data Source [id number] 04/16/2019 11:33:00 AM [facility] Value Range Interpretation Description Data Sup porting Code Source(s) Document(s ) Nucleated 0.0 % [place] erythrocytes/10 Hospital 0 leukocytes [Ratio] in Blood by Automated count ID Date Data Source [id number] 04/16/2019 11:33:00 AM [facility] Value Range Interpretation Description Data Sup porting Code Source(s) Document(s ) Immature 0.4 % [place] granulocytes/10 Hospital 0 leukocytes in Blood by Automated count ID Date Data Source [id number] 04/16/2019 11:33:00 AM [facility] Value Range Interpretation Description Data Sup porting Code Source(s) Document(s ) Basophils/100 0.7 % [place] leukocytes in Hospital Blood by Automated count ID Date Data Source [id number] 04/16/2019 11:33:00 AM EST [place] [facility] Name Value Range Interpretation Description Data Sup porting Code Source(s) Document(s ) Eosinophils/100 2.0 % [place] leukocytes in Hospital Blood by Automated count ID Date Data Source [id number] 04/16/2019 11:33:00 AM EST [place] [facility] Name Value Range Interpretation Description Data Sup porting Code Source(s) Document(s ) Monocytes/100 10.8 % [place] leukocytes in Hospital Blood by Automated count ID Date Data Source [id number] 04/16/2019 11:33:00 AM EST [place] [facility] Name Value Range Interpretation Description Data Sup porting Code Source(s) Document(s ) Lymphocytes/10 25.6 % [place] 0 leukocytes Hospital in Blood by Automated count ID Date Data Source [id number] 04/16/2019 11:33:00 AM EST [place] [facility] Name Value Range Interpretation Description Data Sup porting Code Source(s) Document(s ) Neutrophils/10 60.5 % [place] 0 leukocytes Hospital in Blood by Automated count ID Date Data Source [id number] 04/16/2019 11:33:00 AM EST [place] [facility] Name Value Range Interpretation Description Data Sup porting Code Source(s) Document(s ) Calcium 8.5 mg/dL [place] [Mass/volume Hospital ] in Serum or Plasma ID Date Data Source [id number] 04/16/2019 11:33:00 AM EST [place] [facility] Name Value Range Interpretation Code Description Data Bryanna rce(s) Supporting Document(s ) Urea 14.3 [place] nitrogen/Cre Hospital atinine [Mass Ratio] in Serum or Plasma ID Date Data Source [id number] 04/16/2019 11:33:00 AM EST [place] [facility] Name Value Range Interpretation Description Data Sup porting Code Source(s) Document(s ) Creatinine 0.7 mg/dL [place] [Mass/volume] Hospital in Serum or Plasma ID Date Data Source [id number] 04/16/2019 11:33:00 AM EST [place] [facility] Name Value Range Interpretation Description Data Sup porting Code Source(s) Document(s ) Urea 10 mg/dL [place] nitrogen Hospital [Mass/volume ] in Serum or Plasma ID Date Data Source [id number] 04/16/2019 11:33:00 AM EST [facility] Name Value Range Interpretation Code Description Data Bryanna rce(s) Supporting Document(s ) Anion gap in 12 [facility] Serum or Hospital Plasma ID Date Data Source [id number] 04/16/2019 11:33:00 AM EST [facility] Name Value Range Interpretation Description Data Sup porting Code Source(s) Document(s ) Carbon 29 mmol/L [facility] dioxide, Hospital total [Moles/volu me] in Serum or Plasma ID Date Data Source [id number] 04/16/2019 11:33:00 AM EST [facility] Name Value Range Interpretation Description Data Sup porting Code Source(s) Document(s ) Chloride 101 [facility] [Moles/volum mmol/L Hospital e] in Serum or Plasma ID Date Data Source [id number] 04/16/2019 11:33:00 AM EST [facility] Name Value Range Interpretation Description Data Sup porting Code Source(s) Document(s ) Potassium 4.5 [facility] [Moles/volume mmol/L Hospital ] in Serum or Plasma ID Date Data Source [id number] 04/16/2019 11:33:00 AM EST [facility] Name Value Range Interpretation Description Data Sup porting Code Source(s) Document(s ) Sodium 137 mmol/L [facility] [Moles/volu Hospital me] in Serum or Plasma ID Date Data Source [id number] 04/16/2019 11:33:00 AM [facility] NOTIFICATION AND READ BACK OF CRITICAL R ESULTS TO ABILIO PALMER RN () AT 1227 ON 04/16/19 BY Elle Vizcarra.PLEASE NOTE CHANGE IN CRITICAL GLUCOSE VALUES EFFECTIVE 04/22/17.REPORTED CRITICAL VALUES SHOULD B E INTERPRETED WITHIN CLINICAL CONTEXT. Name Value Range Interpretation Description Data Sup porting Code Source(s) Document(s ) Glucose 413 mg/dL [facility] [Mass/volume Hospital ] in Serum or Plasma ID Date Data Source [id number] 04/16/2019 11:33:00 AM [facility] Value Range Interpretation Code Description Data Supporting Source(s) Document(s ) NUCLEATED RBCS 0.0 % [facility] (AUTO Hospital DIFF%)DIS ID Date Data Source [id number] 04/16/2019 11:33:00 AM [facility] Value Range Interpretation Description Data Sup porting Code Source(s) Document(s ) Differential AUTOMATED [place] cell count [facility] method - Blood ID Date Data Source [id number] 04/16/2019 11:33:00 AM [facility] Name Value Range Interpretation Description Data Sup porting Code Source(s) Document(s ) Immature 0.02 [place] granulocytes 10*3/uL Hospital [#/volume] in Blood by Automated count ID Date Data Source [id number] 04/16/2019 11:33:00 AM [facility] Name Value Range Interpretation Description Data Sup porting Code Source(s) Document(s ) Basophils 0.04 [place] [#/volume] in 10*3/uL Hospital Blood by Automated count ID Date Data Source [id number] 04/16/2019 11:33:00 AM EST [facility] Name Value Range Interpretation Description Data Sup porting Code Source(s) Document(s ) Eosinophils 0.11 [facility] [place] [#/volume] in 10*3/uL Hospital Blood by Automated count ID Date Data Source [id number] 04/16/2019 11:33:00 AM EST [facility] Name Value Range Interpretation Description Data Sup porting Code Source(s) Document(s ) Monocytes 0.60 [place] [#/volume] in 10*3/uL Hospital Blood by Automated count ID Date Data Source [id number] 04/16/2019 11:33:00 AM EST [facility] Value Range Interpretation Description Data Sup porting Code Source(s) Document(s ) Lymphocytes 1.42 [place] [#/volume] in 10*3/uL Hospital Blood by Automated count ID Date Data Source [id number] 04/16/2019 11:33:00 AM EST [facility] Value Range Interpretation Description Data Sup porting Code Source(s) Document(s ) Neutrophils 3.35 [place] [#/volume] in 10*3/uL Hospital Blood by Automated count ID Date Data Source [id number] 04/16/2019 11:33:00 AM EST [facility] Value Range Interpretation Description Data Sup porting Code Source(s) Document(s ) Nucleated 0.0 % [place] erythrocytes/10 Hospital 0 leukocytes [Ratio] in Blood by Automated count ID Date Data Source [id number] 04/16/2019 11:33:00 AM EST [facility] Name Value Range Interpretation Description Data Sup porting Code Source(s) Document(s ) Immature 0.4 % [place] granulocytes/10 Hospital 0 leukocytes in Blood by Automated count ID Date Data Source [id number] 04/16/2019 11:33:00 AM EST [facility] Value Range Interpretation Description Data Sup porting Code Source(s) Document(s ) Basophils/100 0.7 % [place] leukocytes in Hospital Blood by Automated count ID Date Data Source [id number] 04/16/2019 11:33:00 AM EST [facility] Name Value Range Interpretation Description Data Sup porting Code Source(s) Document(s ) Eosinophils/100 2.0 % [place] leukocytes in Hospital Blood by Automated count ID Date Data Source [id number] 04/16/2019 11:33:00 AM EST [facility] Name Value Range Interpretation Description Data Sup porting Code Source(s) Document(s ) Monocytes/100 10.8 % [place] leukocytes in Hospital Blood by Automated count ID Date Data Source [id number] 04/16/2019 11:33:00 AM EST [facility] Name Value Range Interpretation Description Data Sup porting Code Source(s) Document(s ) Lymphocytes/10 25.6 % [place] 0 leukocytes Hospital in Blood by Automated count ID Date Data Source [id number] 04/16/2019 11:33:00 AM EST [facility] Name Value Range Interpretation Description Data Sup porting Code Source(s) Document(s ) Neutrophils/10 60.5 % [facility] 0 leukocytes Hospital in Blood by Automated count ID Date Data Source [id number] 04/16/2019 11:33:00 AM EST [facility] Name Value Range Interpretation Description Data Sup porting Code Source(s) Document(s ) Platelet mean 11.1 fL [facility] volume Hospital [Entitic volume] in Blood by Automated count ID Date Data Source [id number] 04/16/2019 11:33:00 AM EST [facility] Name Value Range Interpretation Description Data Sup porting Code Source(s) Document(s ) Platelets 195 [place] [#/volume] in 10*3/uL Hospital Blood by Automated count ID Date Data Source [id number] 04/16/2019 11:33:00 AM [facility] Name Value Range Interpretation Description Data Sup porting Code Source(s) Document(s ) Erythrocyte 13.7 % [facility] Hospital width [Ratio] by Automated count ID Date Data Source [id number] 04/16/2019 11:33:00 AM [facility] Value Range Interpretation Description Data Sup porting Code Source(s) Document(s ) Erythrocyte mean 32.8 [place] corpuscular g/dL Hospital hemoglobin concentration [Mass/volume] by Automated count ID Date Data Source [id number] 04/16/2019 11:33:00 AM [facility] Value Range Interpretation Description Data Sup porting Code Source(s) Document(s ) Erythrocyte 29.5 pg [facility] corpuscular hemoglobin [Entitic mass] by Automated count ID Date Data Source [id number] 04/16/2019 11:33:00 AM [facility] Value Range Interpretation Description Data Sup porting Code Source(s) Document(s ) Erythrocyte 89.9 fL [facility] corpuscular volume [Entitic volume] by Automated count ID Date Data Source [id number] 04/16/2019 11:33:00 AM [facility] Value Range Interpretation Description Data Sup porting Code Source(s) Document(s ) Hematocrit 38.4 % [place] [Volume Hospital Fraction] of Blood by Automated count ID Date Data Source [id number] 04/16/2019 11:33:00 AM [facility] Value Range Interpretation Description Data Sup porting Code Source(s) Document(s ) Hemoglobin 12.6 g/dL [place] [Mass/volume] Hospital in Blood ID Date Data Source [id number] 04/16/2019 11:33:00 AM [facility] Name Value Range Interpretation Description Data Sup porting Code Source(s) Document(s ) Erythrocytes 4.27 [place] [#/volume] in 10*6/uL Hospital Blood by Automated count ID Date Data Source [id number] 04/16/2019 11:33:00 AM [facility] Name Value Range Interpretation Description Data Sup porting Code Source(s) Document(s ) Leukocytes 5.5 [place] [#/volume] in 10*3/uL Hospital Blood by Automated count ID Date Data Source [id number] 04/16/2019 11:33:00 AM [facility] Name Value Range Interpretation Code Description Data Supporting Source(s) Document(s ) NUCLEATED RBCS 0.0 % [place] (AUTO Hospital DIFF%)DIS ID Date Data Source [id number] 04/16/2019 11:33:00 AM [facility] Name Value Range Interpretation Description Data Sup porting Code Source(s) Document(s ) Differential AUTOMATED [place] cell count [facility] method - Blood ID Date Data Source [id number] 04/07/2019 02:30:00 AM [facility] [employer] Name Value Range Interpretation Description Data Sup porting Code Source(s) Document(s ) Glucose 373 mg/dL [place] [Mass/volume] Hospital in Capillary blood by Glucometer ID Date Data Source [id number] 04/07/2019 02:29:00 AM [facility] Name Value Range Interpretation Description Data Sup porting Code Source(s) Document(s ) Epithelial 1+ [place] cells.squamous Hospital [#/area] in Urine sediment by Microscopy high power field ID Date Data Source [id number] 04/07/2019 02:29:00 AM [facility] Name Value Range Interpretation Description Data Sup porting Code Source(s) Document(s ) Erythrocytes 0-3 [place] [#/area] in /[HPF] Hospital Urine sediment by Microscopy high power field ID Date Data Source [id number] 04/07/2019 02:29:00 AM [facility] Name Value Range Interpretation Description Data Sup porting Code Source(s) Document(s ) Leukocytes 0-3 [place] [#/area] in /[HPF] Hospital Urine sediment by Microscopy high power field ID Date Data Source [id number] 04/07/2019 02:29:00 AM [facility] Name Value Range Interpretation Description Data Sup porting Code Source(s) Document(s ) Epithelial 1+ [place] cells.squamous [facility] [#/area] in Urine sediment by Microscopy high power field ID Date Data Source [id number] 04/07/2019 02:29:00 AM [facility] Name Value Range Interpretation Description Data Sup porting Code Source(s) Document(s ) Erythrocytes 0-3 [place] [#/area] in /[HPF] Hospital Urine sediment by Microscopy high power field ID Date Data Source [id number] 04/07/2019 02:29:00 AM [facility] Name Value Range Interpretation Description Data Sup porting Code Source(s) Document(s ) Leukocytes 0-3 [place] [#/area] in /[HPF] Hospital Urine sediment by Microscopy high power field ID Date Data Source [id number] 04/07/2019 02:29:00 AM [facility] Name Value Range Interpretation Description Data Sup porting Code Source(s) Document(s ) Leukocyte NEGATIVE [facility] [Presence] in Urine by Test strip ID Date Data Source [id number] 04/07/2019 02:29:00 AM [facility] Hospital Name Value Range Interpretation Description Data Sup porting Code Source(s) Document(s ) URINE NEGATIVE [place] NITRITES Hospital ID Date Data Source [id number] 04/07/2019 02:29:00 AM [facility] Name Value Range Interpretation Description Data Sup porting Code Source(s) Document(s ) Erythrocytes NEGATIVE [place] [#/volume] in Hospital Urine by Test strip ID Date Data Source [id number] 04/07/2019 02:29:00 AM [facility] Hospital Name Value Range Interpretation Code Description Data Bryanna rce(s) Supporting Document(s ) Bilirubin. NEGATIVE [place] [place] total Hospital [Presence] in Urine by Test strip ID Date Data Source [id number] 04/07/2019 02:29:00 AM [facility] Hospital Name Value Range Interpretation Description Data Sup porting Code Source(s) Document(s ) Urobilinogen 1.0 [place] [Units/volume] mg/dL Hospital in Urine by Test strip ID Date Data Source [id number] 04/07/2019 02:29:00 AM [facility] Hospital Name Value Range Interpretation Description Data Sup porting Code Source(s) Document(s ) Ketones NEGATIVE [place] [Mass/volume Hospital ] in Urine by Test strip ID Date Data Source [id number] 04/07/2019 02:29:00 AM [facility] Hospital Name Value Range Interpretation Code Description Data Bryanna rce(s) Supporting Document(s ) Glucose 3+ [place] [Mass/volume Hospital ] in Urine by Test strip ID Date Data Source [id number] 04/07/2019 02:29:00 AM EST [facility] Name Value Range Interpretation Description Data Sup porting Code Source(s) Document(s ) Protein NEGATIVE [place] [Presence] Hospital in Urine by Test strip ID Date Data Source [id number] 04/07/2019 02:29:00 AM [facility] Name Value Range Interpretation Code Description Data Bryanna rce(s) Supporting Document(s ) pH of Urine 6.5 [place] by Test Hospital strip ID Date Data Source [id number] 04/07/2019 02:29:00 AM [facility] Name Value Range Interpretation Code Description Data Supporting Source(s) Document(s ) Specific 1.035 [place] gravity of Hospital Urine by Test strip ID Date Data Source [id number] 04/07/2019 02:29:00 AM [facility] Name Value Range Interpretation Description Data Sup porting Code Source(s) Document(s ) Clarity in Urine CLOUDY [place] by Refractometry [facility] automated ID Date Data Source [id number] 04/07/2019 02:29:00 AM [facility] Name Value Range Interpretation Code Description Data Bryanna rce(s) Supporting Document(s ) Color of YELLOW [place] Urine Hospital ID Date Data Source [id number] 04/06/2019 10:02:00 PM [facility] Name Value Range Interpretation Description Data Sup porting Code Source(s) Document(s ) Thyroxine 0.7 ng/dL [place] (T4) free Hospital [Mass/volume] in Serum or Plasma ID Date Data Source [id number] 04/06/2019 10:02:00 PM [facility] Name Value Range Interpretation Description Data Sup porting Code Source(s) Document(s ) Thyrotropin 1.291 [place] [Units/volume] u[IU]/mL Hospital in Serum or Plasma by Detection limit <= 0.005 mIU/L ID Date Data Source [id number] 04/06/2019 10:02:00 PM [facility] UNITS ARE IN ml/min/1.73m2.IF PATIENT IS -JORDANIAN, MULTIPLY REPORTED RESULT BY 1.21. Name Value Range Interpretation Description Data Sup porting Code Source(s) Document(s ) Glomerular > 60 [place] filtration mL/min Hospital rate/1.73 sq M.predicted [Volume Rate/Area] in Serum or Plasma by Creatinine-bas ed formula (MDRD) ID Date Data Source [id number] 04/06/2019 10:02:00 PM [facility] Name Value Range Interpretation Description Data Sup porting Code Source(s) Document(s ) Thyroxine 0.7 ng/dL [place] (T4) free Hospital [Mass/volume] in Serum or Plasma ID Date Data Source [id number] 04/06/2019 10:02:00 PM [facility] Name Value Range Interpretation Description Data Sup porting Code Source(s) Document(s ) Thyrotropin 1.291 [place] [Units/volume] u[IU]/mL Hospital in Serum or Plasma by Detection limit <= 0.005 mIU/L ID Date Data Source [id number] 04/06/2019 10:02:00 PM [facility] UNITS ARE IN ml/min/1.73m2.IF PATIENT IS -JORDANIAN, MULTIPLY REPORTED RESULT BY 1.21. Name Value Range Interpretation Description Data Sup porting Code Source(s) Document(s ) Glomerular > 60 [place] filtration mL/min Hospital rate/1.73 sq M.predicted [Volume Rate/Area] in Serum or Plasma by Creatinine-bas ed formula (MDRD) ID Date Data Source [id number] 04/06/2019 10:02:00 PM [facility] Name Value Range Interpretation Description Data Sup porting Code Source(s) Document(s ) Thyroxine 0.7 ng/dL [place] (T4) free Hospital [Mass/volume] in Serum or Plasma ID Date Data Source [id number] 04/06/2019 10:02:00 PM [facility] Name Value Range Interpretation Description Data Sup porting Code Source(s) Document(s ) Thyrotropin 1.291 [place] [Units/volume] u[IU]/mL Hospital in Serum or Plasma by Detection limit <= 0.005 mIU/L ID Date Data Source [id number] 04/06/2019 10:02:00 PM [facility] Name Value Range Interpretation Description Data Sup porting Code Source(s) Document(s ) Calcium 8.9 mg/dL [place] [Mass/volume Hospital ] in Serum or Plasma ID Date Data Source [id number] 04/06/2019 10:02:00 PM [facility] UNITS ARE IN ml/min/1.73m2.IF PATIENT IS -JORDANIAN, MULTIPLY REPORTED RESULT BY 1.21. Name Value Range Interpretation Description Data Sup porting Code Source(s) Document(s ) Glomerular > 60 [place] filtration mL/min Hospital rate/1.73 sq M.predicted [Volume Rate/Area] in Serum or Plasma by Creatinine-bas ed formula (MDRD) ID Date Data Source [id number] 04/06/2019 10:02:00 PM [facility] Name Value Range Interpretation Code Description Data Bryanna rce(s) Supporting Document(s ) Urea 11.7 [place] nitrogen/Cre Hospital atinine [Mass Ratio] in Serum or Plasma ID Date Data Source [id number] 04/06/2019 10:02:00 PM [facility] Name Value Range Interpretation Description Data Sup porting Code Source(s) Document(s ) Creatinine 0.6 mg/dL [place] [Mass/volume] Hospital in Serum or Plasma ID Date Data Source [id number] 04/06/2019 10:02:00 PM [facility] Name Value Range Interpretation Description Data Sup porting Code Source(s) Document(s ) Urea nitrogen 7 mg/dL [place] [Mass/volume] Hospital in Serum or Plasma ID Date Data Source [id number] 04/06/2019 10:02:00 PM EST [facility] Name Value Range Interpretation Code Description Data Bryanna rce(s) Supporting Document(s ) Anion gap in 9 [place] Serum or Hospital Plasma ID Date Data Source [id number] 04/06/2019 10:02:00 PM EST [facility] Name Value Range Interpretation Description Data Sup porting Code Source(s) Document(s ) Carbon 30 mmol/L [place] dioxide, Hospital total [Moles/volu me] in Serum or Plasma ID Date Data Source [id number] 04/06/2019 10:02:00 PM EST [facility] Name Value Range Interpretation Description Data Sup porting Code Source(s) Document(s ) Chloride 107 [place] [Moles/volum mmol/L Hospital e] in Serum or Plasma ID Date Data Source [id number] 04/06/2019 10:02:00 PM EST [facility] Name Value Range Interpretation Description Data Sup porting Code Source(s) Document(s ) Potassium 3.3 [place] [Moles/volume mmol/L Hospital ] in Serum or Plasma ID Date Data Source [id number] 04/06/2019 10:02:00 PM EST [facility] Name Value Range Interpretation Description Data Sup porting Code Source(s) Document(s ) Sodium 143 mmol/L [place] [Moles/volu Hospital me] in Serum or Plasma ID Date Data Source [id number] 04/06/2019 10:02:00 PM EST [facility] Name Value Range Interpretation Description Data Sup porting Code Source(s) Document(s ) Glucose 64 mg/dL [place] [Mass/volume Hospital ] in Serum or Plasma ID Date Data Source [id number] 04/06/2019 10:02:00 PM [facility] Name Value Range Interpretation Description Data Sup porting Code Source(s) Document(s ) Differential AUTOMATED [place] cell count [facility] method - Blood ID Date Data Source [id number] 04/06/2019 10:02:00 PM [facility] Name Value Range Interpretation Description Data Sup porting Code Source(s) Document(s ) Immature 0.01 [place] granulocytes 10*3/uL Hospital [#/volume] in Blood by Automated count ID Date Data Source [id number] 04/06/2019 10:02:00 PM [facility] Value Range Interpretation Description Data Sup porting Code Source(s) Document(s ) Basophils 0.04 [place] [#/volume] in 10*3/uL [facility] Blood by Automated count ID Date Data Source [id number] 04/06/2019 10:02:00 PM [facility] Name Value Range Interpretation Description Data Sup porting Code Source(s) Document(s ) Eosinophils 0.12 [place] [#/volume] in 10*3/uL Hospital Blood by Automated count ID Date Data Source [id number] 04/06/2019 10:02:00 PM [facility] Name Value Range Interpretation Description Data Sup porting Code Source(s) Document(s ) Monocytes 0.54 [place] [#/volume] in 10*3/uL Hospital Blood by Automated count ID Date Data Source [id number] 04/06/2019 10:02:00 PM [facility] Name Value Range Interpretation Description Data Sup porting Code Source(s) Document(s ) Lymphocytes 1.75 [place] [#/volume] in 10*3/uL Hospital Blood by Automated count ID Date Data Source [id number] 04/06/2019 10:02:00 PM EST [facility] Value Range Interpretation Description Data Sup porting Code Source(s) Document(s ) Neutrophils 2.75 [place] [#/volume] in 10*3/uL Hospital Blood by Automated count ID Date Data Source [id number] 04/06/2019 10:02:00 PM [facility] Value Range Interpretation Description Data Sup porting Code Source(s) Document(s ) Nucleated 0.0 % [place] erythrocytes/10 Hospital 0 leukocytes [Ratio] in Blood by Automated count ID Date Data Source [id number] 04/06/2019 10:02:00 PM [facility] Value Range Interpretation Description Data Sup porting Code Source(s) Document(s ) Immature 0.2 % [place] granulocytes/10 Hospital 0 leukocytes in Blood by Automated count ID Date Data Source [id number] 04/06/2019 10:02:00 PM [facility] Value Range Interpretation Description Data Sup porting Code Source(s) Document(s ) Basophils/100 0.8 % [place] leukocytes in [facility] Blood by Automated count ID Date Data Source [id number] 04/06/2019 10:02:00 PM [facility] Value Range Interpretation Description Data Sup porting Code Source(s) Document(s ) Eosinophils/100 2.3 % [place] leukocytes in [facility] Blood by Automated count ID Date Data Source [id number] 04/06/2019 10:02:00 PM [facility] Value Range Interpretation Description Data Sup porting Code Source(s) Document(s ) Monocytes/100 10.4 % [place] leukocytes in [facility] Blood by Automated count ID Date Data Source [id number] 04/06/2019 10:02:00 PM EST [facility] Name Value Range Interpretation Description Data Sup porting Code Source(s) Document(s ) Lymphocytes/10 33.6 % [place] 0 leukocytes Hospital in Blood by Automated count ID Date Data Source [id number] 04/06/2019 10:02:00 PM EST [facility] Value Range Interpretation Description Data Sup porting Code Source(s) Document(s ) Neutrophils/10 52.7 % [place] 0 leukocytes Hospital in Blood by Automated count ID Date Data Source [id number] 04/06/2019 10:02:00 PM [facility] Value Range Interpretation Description Data Sup porting Code Source(s) Document(s ) Platelet mean 11.5 fL [place] volume Hospital [Entitic volume] in Blood by Automated count ID Date Data Source [id number] 04/06/2019 10:02:00 PM [facility] Value Range Interpretation Description Data Sup porting Code Source(s) Document(s ) Platelets 248 [place] [#/volume] in 10*3/uL Hospital Blood by Automated count ID Date Data Source [id number] 04/06/2019 10:02:00 PM [facility] Value Range Interpretation Description Data Sup porting Code Source(s) Document(s ) Erythrocyte 13.8 % [place] distribution Hospital width [Ratio] by Automated count ID Date Data Source [id number] 04/06/2019 10:02:00 PM [facility] Name Value Range Interpretation Description Data Sup porting Code Source(s) Document(s ) Erythrocyte mean 32.1 [place] corpuscular g/dL Hospital hemoglobin concentration [Mass/volume] by Automated count ID Date Data Source [id number] 04/06/2019 10:02:00 PM [facility] Value Range Interpretation Description Data Sup porting Code Source(s) Document(s ) Erythrocyte 29.4 pg [place] mean Hospital corpuscular hemoglobin [Entitic mass] by Automated count ID Date Data Source [id number] 04/06/2019 10:02:00 PM [facility] Name Value Range Interpretation Description Data Sup porting Code Source(s) Document(s ) Erythrocyte 91.8 fL [place] mean Hospital corpuscular volume [Entitic volume] by Automated count ID Date Data Source [id number] 04/06/2019 10:02:00 PM [facility] Name Value Range Interpretation Description Data Sup porting Code Source(s) Document(s ) Hematocrit 39.3 % [place] [Volume Hospital Fraction] of Blood by Automated count ID Date Data Source [id number] 04/06/2019 10:02:00 PM [facility] Value Range Interpretation Description Data Sup porting Code Source(s) Document(s ) Hemoglobin 12.6 g/dL [place] [Mass/volume] Hospital in Blood ID Date Data Source [id number] 04/06/2019 10:02:00 PM [facility] Name Value Range Interpretation Description Data Sup porting Code Source(s) Document(s ) Erythrocytes 4.28 [place] [#/volume] in 10*6/uL Hospital Blood by Automated count ID Date Data Source [id number] 04/06/2019 10:02:00 PM [facility] Name Value Range Interpretation Description Data Sup porting Code Source(s) Document(s ) Leukocytes 5.2 [place] [#/volume] in 10*3/uL Hospital Blood by Automated count ID Date Data Source [id number] 03/09/2019 08:08:00 PM [facility] Manager [employer]OLFO RODAS Name Value Range Interpretation Description Data Sup porting Code Source(s) Document(s ) Glucose 223 mg/dL [place] [Mass/volume] [facility] in Capillary blood by Glucometer ID Date Data Source [id number] 03/09/2019 07:35:00 PM [facility] Name Value Range Interpretation Description Data Sup porting Code Source(s) Document(s ) GLUCOSE MD Notified [place] [address] Hospital ID Date Data Source [id number] 03/09/2019 07:35:00 PM [facility] Name Value Range Interpretation Description Data Sup porting Code Source(s) Document(s ) GLUCOSE RN Notified [facility] ID Date Data Source [id number] 03/09/2019 07:35:00 PM [facility] Name Value Range Interpretation Description Data Sup porting Code Source(s) Document(s ) GLUCOSE MD Notified [place] [address] Hospital ID Date Data Source [id number] 03/09/2019 07:35:00 PM [facility] Name Value Range Interpretation Description Data Sup porting Code Source(s) Document(s ) GLUCOSE RN Notified [facility] Hospital ID Date Data Source [id number] 03/09/2019 04:21:00 PM [facility] CUT-OFF >= 25 NG/ML.THE FINDINGS OF THE [...] rce(s) Supporting Document(s ) PCP (UR) NEGATIVE Health System ID Date Data Source [id number] 03/09/2019 04:21:00 PM [facility] CUT-OFF >= 50 NG/ML. Name Value Range Interpretation Code Description Data Bryanna rce(s) Supporting Document(s ) THC (UR) NEGATIVE [place] Hospital ID Date Data Source [id number] 03/09/2019 04:21:00 PM [facility] CUT-OFF >= 300 NG/ML. Name Value Range Interpretation Description Data Sup porting Code Source(s) Document(s ) OPIATES (UR) NEGATIVE [place] Hospital ID Date Data Source [id number] 03/09/2019 04:21:00 PM [facility] CUT-OFF >= 300 NG/ML. Name Value Range Interpretation Description Data Sup porting Code Source(s) Document(s ) COCAINE (UR) NEGATIVE [place] Hospital ID Date Data Source [id number] 03/09/2019 04:21:00 PM [facility] CUT-OFF >= 200 NG/ML. Name Value Range Interpretation Description Data Sup porting Code Source(s) Document(s ) BENZODIAZEPINES NEGATIVE [place] (UR) [facility] ID Date Data Source [id number] 03/09/2019 04:21:00 PM [facility] CUT-OFF >= 200 NG/ML. Name Value Range Interpretation Description Data Sup porting Code Source(s) Document(s ) BARBITURATES NEGATIVE [place] (UR) Hospital ID Date Data Source [id number] 03/09/2019 04:21:00 PM [facility] CUT-OFF >= 1000 NG/ML. Name Value Range Interpretation Description Data Sup porting Code Source(s) Document(s ) AMPHETAMINES NEGATIVE [place] (UR) Hospital ID Date Data Source [id number] 03/09/2019 04:21:00 PM [facility] REFERENCE RANGES: NONE DETECTED <20 MG/DL NONE TO MILD EUPHORIA 20-49 MG/DL MILD EUPHORIA 50-99 MG/DL MODERATE EUPHORIA 100-149 MG/DL INTOXICATION 150-300 MG/DL Name Value Range Interpretation Description Data Sup porting Code Source(s) Document(s ) Ethanol < 20 [place] [Mass/volume mg/dL Hospital ] in Serum or Plasma ID Date Data Source [id number] 03/09/2019 04:21:00 PM [facility] TEST RESULT IS A TOTAL TRICYCLIC VALUE.T [...] Code Source(s) Document(s ) TRICYCLIC < 80 [place] ANTIDEPRESSANT ng/mL Hospital ID Date Data Source [id number] 03/09/2019 04:21:00 PM [facility] REFERENCE RANGES: ANALGESIC: 0.0 - 10.0 MG/DL. ARTHRITIC THERAPY: 15.0 - 30.0 MG/DL. Name Value Range Interpretation Description Data Sup porting Code Source(s) Document(s ) Salicylates < 3.0 [place] [Mass/volume] mg/dL Hospital in Serum or Plasma ID Date Data Source [id number] 03/09/2019 04:21:00 PM [facility] THERAPEUTIC RANGE: 10.0-30.0 UG/MLTOXIC RANGE: 4 HRS AFTER INGESTION >150 UG/ML 12 HRS AFTER INGESTION >35 UG/ML Name Value Range Interpretation Description Data Sup porting Code Source(s) Document(s ) ACETAMINOPHEN < 10.0 [place] ug/mL Hospital ID Date Data Source [id number] 03/09/2019 04:21:00 PM [facility] Name Value Range Interpretation Description Data Sup porting Code Source(s) Document(s ) Aspartate 46 U/L [place] aminotransferase [place] [Enzymatic Hospital activity/volume] in Serum or Plasma ID Date Data Source [id number] 03/09/2019 04:21:00 PM EST [place] [facility] Name Value Range Interpretation Description Data Sup porting Code Source(s) Document(s ) Alanine 31 U/L [place] aminotransferase [place] [Enzymatic Hospital activity/volume] in Serum or Plasma ID Date Data Source [id number] 03/09/2019 04:21:00 PM EST [place] [facility] Name Value Range Interpretation Description Data Sup porting Code Source(s) Document(s ) Alkaline 86 U/L [place] phosphatase Hospital [Enzymatic activity/volume ] in Serum or Plasma ID Date Data Source [id number] 03/09/2019 04:21:00 PM [facility] Name Value Range Interpretation Description Data Sup porting Code Source(s) Document(s ) Bilirubin.t 0.9 mg/dL [facility] [Mass/volum e] in Serum or Plasma ID Date Data Source [id number] 03/09/2019 04:21:00 PM [facility] Name Value Range Interpretation Code Description Data Bryanna rce(s) Supporting Document(s ) Albumin/Glob 1.3 [facility] [Mass [facility] Ratio] in Serum or Plasma ID Date Data Source [id number] 03/09/2019 04:21:00 PM EST [place] [facility] Name Value Range Interpretation Description Data Sup porting Code Source(s) Document(s ) Albumin 3.9 g/dL [place] [Mass/volume Hospital ] in Serum or Plasma ID Date Data Source [id number] 03/09/2019 04:21:00 PM [facility] Name Value Range Interpretation Description Data Sup porting Code Source(s) Document(s ) Protein 6.9 g/dL [place] [Mass/volume Hospital ] in Serum or Plasma ID Date Data Source [id number] 03/09/2019 04:21:00 PM [facility] Name Value Range Interpretation Code Description Data Supporting Source(s) Document(s ) NUCLEATED RBCS 0.0 % [place] (AUTO Hospital DIFF%)DIS ID Date Data Source [id number] 03/09/2019 04:21:00 PM [facility] CUT-OFF >= 25 NG/ML.THE FINDINGS OF THE [...] rce(s) Supporting Document(s ) PCP (UR) NEGATIVE Health System ID Date Data Source [id number] 03/09/2019 04:21:00 PM [facility] CUT-OFF >= 50 NG/ML. Name Value Range Interpretation Code Description Data Bryanna rce(s) Supporting Document(s ) THC (UR) NEGATIVE Health System ID Date Data Source [id number] 03/09/2019 04:21:00 PM [facility] CUT-OFF >= 300 NG/ML. Name Value Range Interpretation Description Data Sup porting Code Source(s) Document(s ) OPIATES (UR) NEGATIVE [place] [facility] ID Date Data Source [id number] 03/09/2019 04:21:00 PM [facility] CUT-OFF >= 300 NG/ML. Name Value Range Interpretation Description Data Sup porting Code Source(s) Document(s ) COCAINE (UR) NEGATIVE Health System ID Date Data Source [id number] 03/09/2019 04:21:00 PM [facility] CUT-OFF >= 200 NG/ML. Name Value Range Interpretation Description Data Sup porting Code Source(s) Document(s ) BENZODIAZEPINES NEGATIVE [place] (UR) [facility] ID Date Data Source [id number] 03/09/2019 04:21:00 PM [facility] CUT-OFF >= 200 NG/ML. Name Value Range Interpretation Description Data Sup porting Code Source(s) Document(s ) BARBITURATES NEGATIVE [place] (UR) Hospital ID Date Data Source [id number] 03/09/2019 04:21:00 PM [facility] CUT-OFF >= 1000 NG/ML. Name Value Range Interpretation Description Data Sup porting Code Source(s) Document(s ) AMPHETAMINES NEGATIVE [place] () Hospital ID Date Data Source [id number] 03/09/2019 04:21:00 PM [facility] REFERENCE RANGES: NONE DETECTED <20 MG/DL NONE TO MILD EUPHOR[place] 20-49 MG/DL MILD EUPHORIA 50-99 MG/DL MODERATE EUPHORIA 100-149 MG/DL INTOXICATION 150-300 MG/DL Name Value Range Interpretation Description Data Sup porting Code Source(s) Document(s ) Ethanol < 20 [place] [Mass/volume mg/dL [facility] ] in Serum or Plasma ID Date Data Source [id number] 03/09/2019 04:21:00 PM [facility] TEST RESULT IS A TOTAL TRICYCLIC VALUE.T [...] Code Source(s) Document(s ) TRICYCLIC < 80 [place] ANTIDEPRESSANT ng/mL Hospital ID Date Data Source [id number] 03/09/2019 04:21:00 PM [facility] REFERENCE RANGES: ANALGESIC: 0.0 - 10.0 MG/DL. ARTHRITIC THERAPY: 15.0 - 30.0 MG/DL. Name Value Range Interpretation Description Data Sup porting Code Source(s) Document(s ) Salicylates < 3.0 [place] [Mass/volume] mg/dL Hospital in Serum or Plasma ID Date Data Source [id number] 03/09/2019 04:21:00 PM [facility] THERAPEUTIC RANGE: 10.0-30.0 UG/MLTOXIC RANGE: 4 HRS AFTER INGESTION >150 UG/ML 12 HRS AFTER INGESTION >35 UG/ML Name Value Range Interpretation Description Data Sup porting Code Source(s) Document(s ) ACETAMINOPHEN < 10.0 [place] ug/mL Hospital ID Date Data Source [id number] 03/09/2019 04:21:00 PM [facility] Name Value Range Interpretation Description Data Sup porting Code Source(s) Document(s ) Aspartate 46 U/L [place] aminotransferase [place] [Enzymatic Hospital activity/volume] in Serum or Plasma ID Date Data Source [id number] 03/09/2019 04:21:00 PM [facility] Name Value Range Interpretation Description Data Sup porting Code Source(s) Document(s ) Alanine 31 U/L [place] aminotransferase [place] [Enzymatic Hospital activity/volume] in Serum or Plasma ID Date Data Source [id number] 03/09/2019 04:21:00 PM [facility] Name Value Range Interpretation Description Data Sup porting Code Source(s) Document(s ) Alkaline 86 U/L [place] phosphatase Hospital [Enzymatic activity/volume ] in Serum or Plasma ID Date Data Source [id number] 03/09/2019 04:21:00 PM [facility] Name Value Range Interpretation Description Data Sup porting Code Source(s) Document(s ) Bilirubin.t 0.9 mg/dL [facility] [Mass/volum e] in Serum or Plasma ID Date Data Source [id number] 03/09/2019 04:21:00 PM EST Health System Name Value Range Interpretation Code Description Data Bryanna rce(s) Supporting Document(s ) Albumin/Glob 1.3 [place] ulin [Mass Hospital Ratio] in Serum or Plasma ID Date Data Source [id number] 03/09/2019 04:21:00 PM EST [place] [facility] Name Value Range Interpretation Description Data Sup porting Code Source(s) Document(s ) Albumin 3.9 g/dL [place] [Mass/volume Hospital ] in Serum or Plasma ID Date Data Source [id number] 03/09/2019 04:21:00 PM EST Health System Name Value Range Interpretation Description Data Sup porting Code Source(s) Document(s ) Protein 6.9 g/dL [place] [Mass/volume Hospital ] in Serum or Plasma ID Date Data Source [id number] 03/09/2019 04:21:00 PM EST [place] [facility] Name Value Range Interpretation Description Data Sup porting Code Source(s) Document(s ) Calcium 9.4 mg/dL [place] [Mass/volume Hospital ] in Serum or Plasma ID Date Data Source [id number] 03/09/2019 04:21:00 PM EST Health System Name Value Range Interpretation Code Description Data Bryanna rce(s) Supporting Document(s ) Urea 18.6 [place] nitrogen/Cre Hospital atinine [Mass Ratio] in Serum or Plasma ID Date Data Source [id number] 03/09/2019 04:21:00 PM EST Health System Name Value Range Interpretation Description Data Sup porting Code Source(s) Document(s ) Creatinine 0.7 mg/dL [place] [Mass/volume] Hospital in Serum or Plasma ID Date Data Source [id number] 03/09/2019 04:21:00 PM EST [place] [facility] Name Value Range Interpretation Description Data Sup porting Code Source(s) Document(s ) Urea 13 mg/dL [facility] [Mass/volume ] in Serum or Plasma ID Date Data Source [id number] 03/09/2019 04:21:00 PM EST Health System Name Value Range Interpretation Code Description Data Bryanna rce(s) Supporting Document(s ) Anion gap in 12 [place] Serum or [facility] Plasma ID Date Data Source [id number] 03/09/2019 04:21:00 PM [facility] Name Value Range Interpretation Description Data Sup porting Code Source(s) Document(s ) Carbon 28 mmol/L [place] dioxide, Hospital total [Moles/volu me] in Serum or Plasma ID Date Data Source [id number] 03/09/2019 04:21:00 PM EST Health System Name Value Range Interpretation Description Data Sup porting Code Source(s) Document(s ) Chloride 103 [place] [Moles/volum mmol/L Hospital e] in Serum or Plasma ID Date Data Source [id number] 03/09/2019 04:21:00 PM [facility] Name Value Range Interpretation Description Data Sup porting Code Source(s) Document(s ) Potassium 4.2 [place] [Moles/volume mmol/L Hospital ] in Serum or Plasma ID Date Data Source [id number] 03/09/2019 04:21:00 PM [facility] Name Value Range Interpretation Description Data Sup porting Code Source(s) Document(s ) Sodium 139 mmol/L [place] [Moles/volu Hospital me] in Serum or Plasma ID Date Data Source [id number] 03/09/2019 04:21:00 PM EST Health System Name Value Range Interpretation Description Data Sup porting Code Source(s) Document(s ) Glucose 193 mg/dL [place] [Mass/volume Hospital ] in Serum or Plasma ID Date Data Source [id number] 03/09/2019 04:21:00 PM EST [place] [facility] Name Value Range Interpretation Description Data Sup porting Code Source(s) Document(s ) Leukocyte NEGATIVE [place] esterase Hospital [Presence] in Urine by Test strip ID Date Data Source [id number] 03/09/2019 04:21:00 PM [facility] Name Value Range Interpretation Description Data Sup porting Code Source(s) Document(s ) URINE NEGATIVE [place] NITRITES Hospital ID Date Data Source [id number] 03/09/2019 04:21:00 PM EST [place] [facility] Name Value Range Interpretation Description Data Sup porting Code Source(s) Document(s ) Erythrocytes NEGATIVE [place] [#/volume] in Hospital Urine by Test strip ID Date Data Source [id number] 03/09/2019 04:21:00 PM EST Health System Name Value Range Interpretation Code Description Data Bryanna rce(s) Supporting Document(s ) Bilirubin. NEGATIVE [place] total Hospital [Presence] in Urine by Test strip ID Date Data Source [id number] 03/09/2019 04:21:00 PM EST [place] [facility] Name Value Range Interpretation Description Data Sup porting Code Source(s) Document(s ) Urobilinogen 1.0 [place] [Units/volume] mg/dL Hospital in Urine by Test strip ID Date Data Source [id number] 03/09/2019 04:21:00 PM EST [place] [facility] Name Value Range Interpretation Description Data Sup porting Code Source(s) Document(s ) Ketones NEGATIVE [place] [Mass/volume Hospital ] in Urine by Test strip ID Date Data Source [id number] 03/09/2019 04:21:00 PM EST [place] [facility] Name Value Range Interpretation Code Description Data Bryanna rce(s) Supporting Document(s ) Glucose 2+ [place] [Mass/volume Hospital ] in Urine by Test strip ID Date Data Source [id number] 03/09/2019 04:21:00 PM EST [place] [facility] Name Value Range Interpretation Description Data Sup porting Code Source(s) Document(s ) Protein NEGATIVE [place] [Presence] Hospital in Urine by Test strip ID Date Data Source [id number] 03/09/2019 04:21:00 PM EST Health System Name Value Range Interpretation Code Description Data Bryanna rce(s) Supporting Document(s ) pH of Urine 7.5 [place] by Test Hospital strip ID Date Data Source [id number] 03/09/2019 04:21:00 PM EST Health System Name Value Range Interpretation Code Description Data Supporting Source(s) Document(s ) Specific 1.022 [place] gravity of Hospital Urine by Test strip ID Date Data Source [id number] 03/09/2019 04:21:00 PM EST [place] [facility] Name Value Range Interpretation Description Data Sup porting Code Source(s) Document(s ) Clarity in Urine CLEAR [place] by Refractometry Hospital automated ID Date Data Source [id number] 03/09/2019 04:21:00 PM EST Health System Name Value Range Interpretation Code Description Data Bryanna rce(s) Supporting Document(s ) Color of YELLOW [place] Urine Hospital ID Date Data Source [id number] 03/09/2019 04:21:00 PM EST Health System Name Value Range Interpretation Code Description Data Supporting Source(s) Document(s ) NUCLEATED RBCS 0.0 % [place] (AUTO Hospital DIFF%)DIS ID Date Data Source [id number] 03/09/2019 04:21:00 PM [facility] Value Range Interpretation Description Data Sup porting Code Source(s) Document(s ) Differential AUTOMATED [place] cell count Hospital method - Blood ID Date Data Source [id number] 03/09/2019 04:21:00 PM [facility] Name Value Range Interpretation Description Data Sup porting Code Source(s) Document(s ) Immature 0.01 [place] granulocytes 10*3/uL Hospital [#/volume] in Blood by Automated count ID Date Data Source [id number] 03/09/2019 04:21:00 PM [facility] Name Value Range Interpretation Description Data Sup porting Code Source(s) Document(s ) Basophils 0.05 [place] [#/volume] in 10*3/uL Hospital Blood by Automated count ID Date Data Source [id number] 03/09/2019 04:21:00 PM [facility] Name Value Range Interpretation Description Data Sup porting Code Source(s) Document(s ) Eosinophils 0.08 [place] [#/volume] in 10*3/uL Hospital Blood by Automated count ID Date Data Source [id number] 03/09/2019 04:21:00 PM [facility] Hospital Name Value Range Interpretation Description Data Sup porting Code Source(s) Document(s ) Monocytes 1.06 [place] [#/volume] in 10*3/uL Hospital Blood by Automated count ID Date Data Source [id number] 03/09/2019 04:21:00 PM [facility] Name Value Range Interpretation Description Data Sup porting Code Source(s) Document(s ) Platelet mean 11.8 fL [place] volume Hospital [Entitic volume] in Blood by Automated count ID Date Data Source [id number] 03/09/2019 04:21:00 PM [facility] Value Range Interpretation Description Data Sup porting Code Source(s) Document(s ) Platelets 219 [place] [#/volume] in 10*3/uL Hospital Blood by Automated count ID Date Data Source [id number] 03/09/2019 04:21:00 PM [facility] Name Value Range Interpretation Description Data Sup porting Code Source(s) Document(s ) Erythrocyte 13.3 % [place] distribution Hospital width [Ratio] by Automated count ID Date Data Source [id number] 03/09/2019 04:21:00 PM [facility] Value Range Interpretation Description Data Sup porting Code Source(s) Document(s ) Erythrocyte mean 34.3 [place] corpuscular g/dL Hospital hemoglobin concentration [Mass/volume] by Automated count ID Date Data Source [id number] 03/09/2019 04:21:00 PM [facility] Value Range Interpretation Description Data Sup porting Code Source(s) Document(s ) Erythrocyte 30.4 pg [facility] corpuscular hemoglobin [Entitic mass] by Automated count ID Date Data Source [id number] 03/09/2019 04:21:00 PM [facility] Value Range Interpretation Description Data Sup porting Code Source(s) Document(s ) Erythrocyte 88.6 fL [facility] Hospital corpuscular volume [Entitic volume] by Automated count ID Date Data Source [id number] 03/09/2019 04:21:00 PM [facility] Value Range Interpretation Description Data Sup porting Code Source(s) Document(s ) Hematocrit 33.5 % [place] [Volume Hospital Fraction] of Blood by Automated count ID Date Data Source [id number] 03/09/2019 04:21:00 PM [facility] Value Range Interpretation Description Data Sup porting Code Source(s) Document(s ) Hemoglobin 11.5 g/dL [place] [Mass/volume] Hospital in Blood ID Date Data Source [id number] 03/09/2019 04:21:00 PM [facility] Value Range Interpretation Description Data Sup porting Code Source(s) Document(s ) Erythrocytes 3.78 [place] [#/volume] in 10*6/uL Hospital Blood by Automated count ID Date Data Source [id number] 03/09/2019 04:21:00 PM [facility] Value Range Interpretation Description Data Sup porting Code Source(s) Document(s ) Leukocytes 5.8 [place] [#/volume] in 10*3/uL Hospital Blood by Automated count ID Date Data Source [id number] 03/09/2019 04:21:00 PM [facility] Value Range Interpretation Description Data Sup porting Code Source(s) Document(s ) Lymphocytes 2.13 [place] [#/volume] in 10*3/uL Hospital Blood by Automated count ID Date Data Source [id number] 03/09/2019 04:21:00 PM [facility] Value Range Interpretation Description Data Sup porting Code Source(s) Document(s ) Neutrophils 2.43 [place] [#/volume] in 10*3/uL Hospital Blood by Automated count ID Date Data Source [id number] 03/09/2019 04:21:00 PM [facility] Value Range Interpretation Description Data Sup porting Code Source(s) Document(s ) Nucleated 0.0 % [place] erythrocytes/10 Hospital 0 leukocytes [Ratio] in Blood by Automated count ID Date Data Source [id number] 03/09/2019 04:21:00 PM [facility] Name Value Range Interpretation Description Data Sup porting Code Source(s) Document(s ) Immature 0.2 % [place] granulocytes/10 Hospital 0 leukocytes in Blood by Automated count ID Date Data Source [id number] 03/09/2019 04:21:00 PM [facility] Name Value Range Interpretation Description Data Sup porting Code Source(s) Document(s ) Basophils/100 0.9 % [place] leukocytes in Hospital Blood by Automated count ID Date Data Source [id number] 03/09/2019 04:21:00 PM [facility] Name Value Range Interpretation Description Data Sup porting Code Source(s) Document(s ) Eosinophils/100 1.4 % [place] leukocytes in Hospital Blood by Automated count ID Date Data Source [id number] 03/09/2019 04:21:00 PM [facility] Name Value Range Interpretation Description Data Sup porting Code Source(s) Document(s ) Monocytes/100 18.4 % [place] leukocytes in Hospital Blood by Automated count ID Date Data Source [id number] 03/09/2019 04:21:00 PM EST [place] [facility] Name Value Range Interpretation Description Data Sup porting Code Source(s) Document(s ) Lymphocytes/10 37.0 % [place] 0 leukocytes Hospital in Blood by Automated count ID Date Data Source [id number] 03/09/2019 04:21:00 PM EST [place] [facility] Name Value Range Interpretation Description Data Sup porting Code Source(s) Document(s ) Neutrophils/10 42.1 % [place] 0 leukocytes Hospital in Blood by Automated count ID Date Data Source [id number] 03/03/2019 04:41:00 PM EST [place] [facility] Name Value Range Interpretation Description Data Sup porting Code Source(s) Document(s ) GLUCOSE RN Notified [place] COMMENT2 Hospital ID Date Data Source [id number] 03/03/2019 04:41:00 PM [facility] Name Value Range Interpretation Description Data Sup porting Code Source(s) Document(s ) GLUCOSE Venous [place] COMMENT Sent to Hospital Lab ID Date Data Source [id number] 03/03/2019 04:41:00 PM [facility] Manager [employer]:TRACIE CORTES Name Value Range Interpretation Description Data Sup porting Code Source(s) Document(s ) Glucose 296 mg/dL [place] [Mass/volume] Hospital in Capillary blood by Glucometer ID Date Data Source [id number] 03/02/2019 05:08:00 AM [facility] ADA RECOMMENDATIONS: NON-DIABETES: 4.0-6.0% CONTROLLED DIABETES: 6.0-8.0% UNCONTROLLED DIABETE S: UP TO 20%RECOMMENDED ADA RESULT FOR THERAPY: HEMOGLOBIN A1C RESULT LESS GM N 7%.NOTE: METHOD CHANGE EFFECTIVE 11/11/14. Name Value Range Interpretation Description Data Sup porting Code Source(s) Document(s ) Hemoglobin 9.7 % [place] A1c/Hemoglobin. Hospital total in Blood ID Date Data Source [id number] 03/02/2019 05:08:00 AM [facility] ADA RECOMMENDATIONS: NON-DIABETES: 4.0-6.0% CONTROLLED DIABETES: 6.0-8.0% UNCONTROLLED DIABETE S: UP TO 20%RECOMMENDED ADA RESULT FOR THERAPY: HEMOGLOBIN A1C RESULT LESS GM N 7%.NOTE: METHOD CHANGE EFFECTIVE 11/11/14. Name Value Range Interpretation Description Data Sup porting Code Source(s) Document(s ) Hemoglobin 9.7 % [place] A1c/Hemoglobin. Hospital total in Blood ID Date Data Source [id number] 03/01/2019 11:03:00 PM [facility] Name Value Range Interpretation Description Data Sup porting Code Source(s) Document(s ) Methicillin MRSA TARGET White resistant DNA DETECTED [facility] aureus (MRSA) DNA [Presence] in Unspecified specimen by Probe and target amplification method Methicillin PATIENT IS White resistant PRESUMED [place] [facility] POSITIVE FOR Hospital aureus (MRSA) MRSA DNA [Presence] COLONIZATION in Unspecified specimen by Probe and target amplification method ID Date Data Source [id number] 03/01/2019 11:03:00 PM [facility] Name Value Range Interpretation Description Data Sup porting Code Source(s) Document(s ) Methicillin MRSA TARGET White resistant DNA DETECTED [facility] aureus (MRSA) DNA [Presence] in Unspecified specimen by Probe and target amplification method Methicillin PATIENT IS White resistant PRESUMED [place] [facility] POSITIVE FOR Hospital aureus (MRSA) MRSA DNA [Presence] COLONIZATION in Unspecified specimen by Probe and target amplification method ID Date Data Source [id number] 03/01/2019 10:53:00 PM [facility] CUT-OFF >= 25 NG/ML.THE FINDINGS OF THE [...] rce(s) Supporting Document(s ) PCP (UR) NEGATIVE Health System ID Date Data Source [id number] 03/01/2019 10:53:00 PM [facility] CUT-OFF >= 50 NG/ML. Name Value Range Interpretation Code Description Data Bryanna rce(s) Supporting Document(s ) THC (UR) NEGATIVE Health System ID Date Data Source [id number] 03/01/2019 10:53:00 PM [facility] CUT-OFF >= 300 NG/ML. Name Value Range Interpretation Description Data Sup porting Code Source(s) Document(s ) OPIATES (UR) NEGATIVE Health System ID Date Data Source [id number] 03/01/2019 10:53:00 PM [facility] CUT-OFF >= 300 NG/ML. Name Value Range Interpretation Description Data Sup porting Code Source(s) Document(s ) COCAINE (UR) NEGATIVE [place] [facility] ID Date Data Source [id number] 03/01/2019 10:53:00 PM [facility] CUT-OFF >= 200 NG/ML. Name Value Range Interpretation Description Data Sup porting Code Source(s) Document(s ) BENZODIAZEPINES NEGATIVE [place] (UR) [facility] ID Date Data Source [id number] 03/01/2019 10:53:00 PM [facility] CUT-OFF >= 200 NG/ML. Name Value Range Interpretation Description Data Sup porting Code Source(s) Document(s ) BARBITURATES NEGATIVE [place] (UR) Hospital ID Date Data Source [id number] 03/01/2019 10:53:00 PM [facility] CUT-OFF >= 1000 NG/ML. Name Value Range Interpretation Description Data Sup porting Code Source(s) Document(s ) AMPHETAMINES NEGATIVE [place] (UR) Hospital ID Date Data Source [id number] 03/01/2019 10:53:00 PM [facility] Name Value Range Interpretation Description Data Sup porting Code Source(s) Document(s ) Leukocyte NEGATIVE [facility] Hospital [Presence] in Urine by Test strip ID Date Data Source [id number] 03/01/2019 10:53:00 PM [facility] Name Value Range Interpretation Description Data Sup porting Code Source(s) Document(s ) URINE NEGATIVE [place] NITRITE Hospital ID Date Data Source [id number] 03/01/2019 10:53:00 PM [facility] Name Value Range Interpretation Description Data Sup porting Code Source(s) Document(s ) Erythrocytes NEGATIVE [place] [#/volume] in Hospital Urine by Test strip ID Date Data Source [id number] 03/01/2019 10:53:00 PM EST [place] [facility] Name Value Range Interpretation Code Description Data Bryanna rce(s) Supporting Document(s ) Bilirubin. NEGATIVE [place] total Hospital [Presence] in Urine by Test strip ID Date Data Source [id number] 03/01/2019 10:53:00 PM EST [place] [facility] Name Value Range Interpretation Description Data Sup porting Code Source(s) Document(s ) Urobilinogen 1.0 [place] [Units/volume] mg/dL Hospital in Urine by Test strip ID Date Data Source [id number] 03/01/2019 10:53:00 PM EST [place] [facility] Name Value Range Interpretation Description Data Sup porting Code Source(s) Document(s ) Ketones NEGATIVE [place] [Mass/volume Hospital ] in Urine by Test strip ID Date Data Source [id number] 03/01/2019 10:53:00 PM EST [place] [facility] Name Value Range Interpretation Description Data Sup porting Code Source(s) Document(s ) Glucose NEGATIVE [place] [Mass/volume Hospital ] in Urine by Test strip ID Date Data Source [id number] 03/01/2019 10:53:00 PM EST [place] [facility] Name Value Range Interpretation Description Data Sup porting Code Source(s) Document(s ) Protein NEGATIVE [place] [Presence] Hospital in Urine by Test strip ID Date Data Source [id number] 03/01/2019 10:53:00 PM EST [place] [facility] Name Value Range Interpretation Code Description Data Bryanna rce(s) Supporting Document(s ) pH of Urine 8.5 [place] by Test Hospital strip ID Date Data Source [id number] 03/01/2019 10:53:00 PM [facility] Name Value Range Interpretation Code Description Data Supporting Source(s) Document(s ) Specific 1.011 [place] gravity of Hospital Urine by Test strip ID Date Data Source [id number] 03/01/2019 10:53:00 PM [facility] Name Value Range Interpretation Description Data Sup porting Code Source(s) Document(s ) Clarity in Urine CLEAR [place] by Refractometry [facility] automated ID Date Data Source [id number] 03/01/2019 10:53:00 PM [facility] Name Value Range Interpretation Code Description Data Bryanna rce(s) Supporting Document(s ) Color of YELLOW [place] Urine Hospital ID Date Data Source [id number] 03/01/2019 09:53:00 PM [facility] NOTIFICATION AND READ BACK OF CRITICAL R ESULTS TO Dr. Gunnar Carlson ON [facility] AT 2233 ON 03/01/19 BY Moshe Baker.REPORTED CRITICAL VALUES SHOULD BE INTERPRETED WITHIN CLINICAL CONTEXT. Name Value Range Interpretation Description Data Sup porting Code Source(s) Document(s ) Ammonia 117 [place] [Moles/volum mmol/L Hospital e] in Plasma ID Date Data Source [id number] 03/01/2019 09:53:00 PM [facility] NOTIFICATION AND READ BACK OF CRITICAL R ESULTS TO Dr. Gunnar Carlson ON [facility] AT 2233 ON 03/01/19 BY Moshe Baker.REPORTED CRITICAL VALUES SHOULD BE INTERPRETED WITHIN CLINICAL CONTEXT. Name Value Range Interpretation Description Data Sup porting Code Source(s) Document(s ) Ammonia 117 [place] [Moles/volum mmol/L Hospital e] in Plasma ID Date Data Source [id number] 03/01/2019 07:40:00 PM [facility] Name Value Range Interpretation Description Data Sup porting Code Source(s) Document(s ) Thyrotropin 1.691 [place] [Units/volume] u[IU]/mL Hospital in Serum or Plasma by Detection limit <= 0.005 mIU/L ID Date Data Source [id number] 03/01/2019 07:40:00 PM [facility] Value Range Interpretation Description Data Sup porting Code Source(s) Document(s ) Thyrotropin 1.691 [place] [Units/volume] u[IU]/mL Hospital in Serum or Plasma by Detection limit <= 0.005 mIU/L ID Date Data Source [id number] 03/01/2019 05:08:00 AM [facility] Name Value Range Interpretation Description Data Sup porting Code Source(s) Document(s ) Aspartate 42 U/L White aminotransferase [place] [Enzymatic Hospital activity/volume] in Serum or Plasma ID Date Data Source [id number] 03/01/2019 05:08:00 AM [facility] Name Value Range Interpretation Description Data Sup porting Code Source(s) Document(s ) Alanine 32 U/L White aminotransferase [place] [Enzymatic Hospital activity/volume] in Serum or Plasma ID Date Data Source [id number] 03/01/2019 05:08:00 AM [facility] Value Range Interpretation Description Data Sup porting Code Source(s) Document(s ) Alkaline 85 U/L [place] phosphatase Hospital [Enzymatic activity/volume ] in Serum or Plasma ID Date Data Source [id number] 03/01/2019 05:08:00 AM [facility] Value Range Interpretation Description Data Sup porting Code Source(s) Document(s ) Bilirubin.t 1.1 mg/dL [facility] [Mass/volum e] in Serum or Plasma ID Date Data Source [id number] 03/01/2019 05:08:00 AM [facility] Name Value Range Interpretation Code Description Data Bryanna rce(s) Supporting Document(s ) Albumin/Glob 1.1 [place] ulin [Mass Hospital Ratio] in Serum or Plasma ID Date Data Source [id number] 03/01/2019 05:08:00 AM [facility] Hospital Name Value Range Interpretation Description Data Sup porting Code Source(s) Document(s ) Albumin 3.3 g/dL [place] [Mass/volume Hospital ] in Serum or Plasma ID Date Data Source [id number] 03/01/2019 05:08:00 AM [facility] Name Value Range Interpretation Description Data Sup porting Code Source(s) Document(s ) Protein 6.3 g/dL [place] [Mass/volume Hospital ] in Serum or Plasma ID Date Data Source [id number] 03/01/2019 05:08:00 AM [facility] Name Value Range Interpretation Description Data Sup porting Code Source(s) Document(s ) Calcium 8.6 mg/dL [place] [Mass/volume Hospital ] in Serum or Plasma ID Date Data Source [id number] 03/01/2019 05:08:00 AM [facility] Name Value Range Interpretation Code Description Data Bryanna rce(s) Supporting Document(s ) Urea 20.0 [place] nitrogen/Cre Hospital atinine [Mass Ratio] in Serum or Plasma ID Date Data Source [id number] 03/01/2019 05:08:00 AM [facility] Hospital Name Value Range Interpretation Description Data Sup porting Code Source(s) Document(s ) Creatinine 0.7 mg/dL [place] [Mass/volume] Hospital in Serum or Plasma ID Date Data Source [id number] 03/01/2019 05:08:00 AM EST [place] [facility] Name Value Range Interpretation Description Data Sup porting Code Source(s) Document(s ) Urea 14 mg/dL [place] nitrogen Hospital [Mass/volume ] in Serum or Plasma ID Date Data Source [id number] 03/01/2019 05:08:00 AM [facility] Hospital Name Value Range Interpretation Code Description Data Bryanna rce(s) Supporting Document(s ) Anion gap in 12 [place] Serum or Hospital Plasma ID Date Data Source [id number] 03/01/2019 05:08:00 AM [facility] Hospital Name Value Range Interpretation Description Data Sup porting Code Source(s) Document(s ) Carbon 26 mmol/L [place] dioxide, Hospital total [Moles/volu me] in Serum or Plasma ID Date Data Source [id number] 03/01/2019 05:08:00 AM [facility] Hospital Name Value Range Interpretation Description Data Sup porting Code Source(s) Document(s ) Chloride 105 [place] [Moles/volum mmol/L Hospital e] in Serum or Plasma ID Date Data Source [id number] 03/01/2019 05:08:00 AM [facility] Hospital Name Value Range Interpretation Description Data Sup porting Code Source(s) Document(s ) Potassium 4.2 [place] [Moles/volume mmol/L Hospital ] in Serum or Plasma ID Date Data Source [id number] 03/01/2019 05:08:00 AM [facility] Hospital Name Value Range Interpretation Description Data Sup porting Code Source(s) Document(s ) Sodium 139 mmol/L [place] [Moles/volu Hospital me] in Serum or Plasma ID Date Data Source [id number] 03/01/2019 05:08:00 AM EST [place] [facility] Name Value Range Interpretation Description Data Sup porting Code Source(s) Document(s ) Glucose 251 mg/dL [place] [Mass/volume Hospital ] in Serum or Plasma ID Date Data Source [id number] 03/01/2019 05:08:00 AM [facility] Value Range Interpretation Code Description Data Supporting Source(s) Document(s ) NUCLEATED RBCS 0.0 % [place] (AUTO Hospital DIFF%)DIS ID Date Data Source [id number] 03/01/2019 05:08:00 AM [facility] Name Value Range Interpretation Description Data Sup porting Code Source(s) Document(s ) Differential AUTOMATED [place] cell count Hospital method - Blood ID Date Data Source [id number] 03/01/2019 05:08:00 AM [facility] Value Range Interpretation Description Data Sup porting Code Source(s) Document(s ) Immature 0.01 [place] granulocytes 10*3/uL Hospital [#/volume] in Blood by Automated count ID Date Data Source [id number] 03/01/2019 05:08:00 AM [facility] Name Value Range Interpretation Description Data Sup porting Code Source(s) Document(s ) Basophils 0.03 [place] [#/volume] in 10*3/uL Hospital Blood by Automated count ID Date Data Source [id number] 03/01/2019 05:08:00 AM [facility] Name Value Range Interpretation Description Data Sup porting Code Source(s) Document(s ) Eosinophils 0.21 [place] [#/volume] in 10*3/uL Hospital Blood by Automated count ID Date Data Source [id number] 03/01/2019 05:08:00 AM [facility] Name Value Range Interpretation Description Data Sup porting Code Source(s) Document(s ) Monocytes 0.57 [place] [#/volume] in 10*3/uL Hospital Blood by Automated count ID Date Data Source [id number] 03/01/2019 05:08:00 AM [facility] Value Range Interpretation Description Data Sup porting Code Source(s) Document(s ) Lymphocytes 1.68 [place] [#/volume] in 10*3/uL Hospital Blood by Automated count ID Date Data Source [id number] 03/01/2019 05:08:00 AM [facility] Value Range Interpretation Description Data Sup porting Code Source(s) Document(s ) Neutrophils 2.58 [place] [#/volume] in 10*3/uL Hospital Blood by Automated count ID Date Data Source [id number] 03/01/2019 05:08:00 AM [facility] Value Range Interpretation Description Data Sup porting Code Source(s) Document(s ) Nucleated 0.0 % [place] erythrocytes/10 Hospital 0 leukocytes [Ratio] in Blood by Automated count ID Date Data Source [id number] 03/01/2019 05:08:00 AM [facility] Value Range Interpretation Description Data Sup porting Code Source(s) Document(s ) Immature 0.2 % [place] granulocytes/10 Hospital 0 leukocytes in Blood by Automated count ID Date Data Source [id number] 03/01/2019 05:08:00 AM [facility] Value Range Interpretation Description Data Sup porting Code Source(s) Document(s ) Basophils/100 0.6 % [place] leukocytes in Hospital Blood by Automated count ID Date Data Source [id number] 03/01/2019 05:08:00 AM [facility] Value Range Interpretation Description Data Sup porting Code Source(s) Document(s ) Eosinophils/100 4.1 % [place] leukocytes in Hospital Blood by Automated count ID Date Data Source [id number] 03/01/2019 05:08:00 AM [facility] Name Value Range Interpretation Description Data Sup porting Code Source(s) Document(s ) Monocytes/100 11.2 % [place] leukocytes in Hospital Blood by Automated count ID Date Data Source [id number] 03/01/2019 05:08:00 AM EST [place] [facility] Name Value Range Interpretation Description Data Sup porting Code Source(s) Document(s ) Lymphocytes/10 33.1 % [place] 0 leukocytes Hospital in Blood by Automated count ID Date Data Source [id number] 03/01/2019 05:08:00 AM EST [place] [facility] Name Value Range Interpretation Description Data Sup porting Code Source(s) Document(s ) Neutrophils/10 50.8 % [place] 0 leukocytes Hospital in Blood by Automated count ID Date Data Source [id number] 03/01/2019 05:08:00 AM [facility] Name Value Range Interpretation Description Data Sup porting Code Source(s) Document(s ) Platelet mean 11.8 fL [place] volume Hospital [Entitic volume] in Blood by Automated count ID Date Data Source [id number] 03/01/2019 05:08:00 AM [facility] Value Range Interpretation Description Data Sup porting Code Source(s) Document(s ) Platelets 245 [place] [#/volume] in 10*3/uL Hospital Blood by Automated count ID Date Data Source [id number] 03/01/2019 05:08:00 AM [facility] Name Value Range Interpretation Description Data Sup porting Code Source(s) Document(s ) Erythrocyte 14.7 % [place] distribution Hospital width [Ratio] by Automated count ID Date Data Source [id number] 03/01/2019 05:08:00 AM [facility] Name Value Range Interpretation Description Data Sup porting Code Source(s) Document(s ) Erythrocyte mean 33.6 [place] corpuscular g/dL Hospital hemoglobin concentration [Mass/volume] by Automated count ID Date Data Source [id number] 03/01/2019 05:08:00 AM [facility] Value Range Interpretation Description Data Sup porting Code Source(s) Document(s ) Erythrocyte 29.6 pg [facility] corpuscular hemoglobin [Entitic mass] by Automated count ID Date Data Source [id number] 03/01/2019 05:08:00 AM [facility] Value Range Interpretation Description Data Sup porting Code Source(s) Document(s ) Erythrocyte 88.1 fL [facility] Hospital corpuscular volume [Entitic volume] by Automated count ID Date Data Source [id number] 03/01/2019 05:08:00 AM [facility] Value Range Interpretation Description Data Sup porting Code Source(s) Document(s ) Hematocrit 34.8 % [place] [Volume Hospital Fraction] of Blood by Automated count ID Date Data Source [id number] 03/01/2019 05:08:00 AM [facility] Value Range Interpretation Description Data Sup porting Code Source(s) Document(s ) Hemoglobin 11.7 g/dL [place] [Mass/volume] Hospital in Blood ID Date Data Source [id number] 03/01/2019 05:08:00 AM [facility] Name Value Range Interpretation Description Data Sup porting Code Source(s) Document(s ) Erythrocytes 3.95 [place] [#/volume] in 10*6/uL Hospital Blood by Automated count ID Date Data Source [id number] 03/01/2019 05:08:00 AM [facility] Value Range Interpretation Description Data Sup porting Code Source(s) Document(s ) Leukocytes 5.1 [place] [#/volume] in 10*3/uL Hospital Blood by Automated count ID Date Data Source [id number] 02/15/2019 12:00:00 PM [facility] Manager Energy:HARRIET ARGUELLO Name Value Range Interpretation Description Data Sup porting Code Source(s) Document(s ) Glucose 353 mg/dL [place] [Mass/volume] Hospital in Capillary blood by Glucometer ID Date Data Source [id number] 02/15/2019 08:01:00 AM [facility] Name Value Range Interpretation Description Data Sup porting Code Source(s) Document(s ) GLUCOSE RN Notified [facility] ID Date Data Source [id number] 02/15/2019 07:33:00 AM [facility] UNITS ARE IN ml/min/1.73m2.IF PATIENT IS -JORDANIAN, MULTIPLY REPORTED RESULT BY 1.21. Name Value Range Interpretation Description Data Sup porting Code Source(s) Document(s ) Glomerular > 60 [place] filtration mL/min Hospital rate/1.73 sq M.predicted [Volume Rate/Area] in Serum or Plasma by Creatinine-bas ed formula (MDRD) ID Date Data Source [id number] 02/15/2019 07:33:00 AM [facility] UNITS ARE IN ml/min/1.73m2.IF PATIENT IS -JORDANIAN, MULTIPLY REPORTED RESULT BY 1.21. Name Value Range Interpretation Description Data Sup porting Code Source(s) Document(s ) Glomerular > 60 [place] filtration mL/min Hospital rate/1.73 sq M.predicted [Volume Rate/Area] in Serum or Plasma by Creatinine-bas ed formula (MDRD) ID Date Data Source [id number] 02/15/2019 07:33:00 AM [facility] Name Value Range Interpretation Description Data Sup porting Code Source(s) Document(s ) Calcium 8.5 mg/dL [place] [Mass/volume Hospital ] in Serum or Plasma ID Date Data Source [id number] 02/15/2019 07:33:00 AM [facility] UNITS ARE IN ml/min/1.73m2.IF PATIENT IS -JORDANIAN, MULTIPLY REPORTED RESULT BY 1.21. Name Value Range Interpretation Description Data Sup porting Code Source(s) Document(s ) Glomerular > 60 [place] filtration mL/min Hospital rate/1.73 sq M.predicted [Volume Rate/Area] in Serum or Plasma by Creatinine-bas ed formula (MDRD) ID Date Data Source [id number] 02/15/2019 07:33:00 AM [facility] Name Value Range Interpretation Code Description Data Bryanna rce(s) Supporting Document(s ) Urea 16.3 [place] nitrogen/Cre Hospital atinine [Mass Ratio] in Serum or Plasma ID Date Data Source [id number] 02/15/2019 07:33:00 AM [facility] Name Value Range Interpretation Description Data Sup porting Code Source(s) Document(s ) Creatinine 0.8 mg/dL [place] [Mass/volume] Hospital in Serum or Plasma ID Date Data Source [id number] 02/15/2019 07:33:00 AM [facility] Name Value Range Interpretation Description Data Sup porting Code Source(s) Document(s ) Urea 13 mg/dL [place] nitrogen Hospital [Mass/volume ] in Serum or Plasma ID Date Data Source [id number] 02/15/2019 07:33:00 AM [facility] Name Value Range Interpretation Code Description Data Bryanna rce(s) Supporting Document(s ) Anion gap in 11 [place] Serum or [facility] Plasma ID Date Data Source [id number] 02/15/2019 07:33:00 AM [facility] Name Value Range Interpretation Description Data Sup porting Code Source(s) Document(s ) Carbon 31 mmol/L [place] dioxide, Hospital total [Moles/volu me] in Serum or Plasma ID Date Data Source [id number] 02/15/2019 07:33:00 AM [facility] Name Value Range Interpretation Description Data Sup porting Code Source(s) Document(s ) Chloride 100 [place] [Moles/volum mmol/L Hospital e] in Serum or Plasma ID Date Data Source [id number] 02/15/2019 07:33:00 AM [facility] Name Value Range Interpretation Description Data Sup porting Code Source(s) Document(s ) Potassium 4.3 [place] [Moles/volume mmol/L Hospital ] in Serum or Plasma ID Date Data Source [id number] 02/15/2019 07:33:00 AM [facility] Name Value Range Interpretation Description Data Sup porting Code Source(s) Document(s ) Sodium 138 mmol/L [place] [Moles/volu Hospital me] in Serum or Plasma ID Date Data Source [id number] 02/15/2019 07:33:00 AM [facility] NOTIFICATION AND READ BACK OF CRITICAL R ESULTS TO GEREMIAS SULLIVAN R.N/EVELIA AT 0821 ON 02/15/19 BY Sd Masterson.PLEASE NOTE CHANGE IN CRITICAL GLUCOSE VALUES EFFECTIVE 04/22/17.REPORTED CRITICAL VALUES SHOULD B E INTERPRETED WITHIN CLINICAL CONTEXT. Name Value Range Interpretation Description Data Sup porting Code Source(s) Document(s ) Glucose 581 mg/dL [place] [Mass/volume Hospital ] in Serum or Plasma ID Date Data Source [id number] 02/14/2019 04:13:00 PM [facility] Name Value Range Interpretation Description Data Sup porting Code Source(s) Document(s ) Ammonia 50 mmol/L [place] [Moles/volum Hospital e] in Plasma ID Date Data Source [id number] 02/14/2019 10:52:00 AM [facility] Name Value Range Interpretation Code Description Data Bryanna rce(s) Supporting Document(s ) Lipase 20 U/L [place] [Enzymatic Hospital activity/vo lume] in Serum or Plasma ID Date Data Source [id number] 02/14/2019 10:52:00 AM [facility] REFERENCE RANGES: NONE DETECTED <20 MG/DL NONE TO MILD EUPHORIA 20-49 MG/DL MILD EUPHORIA 50-99 MG/DL MODERATE EUPHORIA 100-149 MG/DL INTOXICATION 150-300 MG/DL Name Value Range Interpretation Description Data Sup porting Code Source(s) Document(s ) Ethanol < 20 [place] [Mass/volume mg/dL Hospital ] in Serum or Plasma ID Date Data Source [id number] 02/14/2019 10:52:00 AM [facility] TEST RESULT IS A TOTAL TRICYCLIC VALUE.T [...] Code Source(s) Document(s ) TRICYCLIC < 80 [place] ANTIDEPRESSANT ng/mL Hospital ID Date Data Source [id number] 02/14/2019 10:52:00 AM [facility] REFERENCE RANGES: ANALGESIC: 0.0 - 10.0 MG/DL. ARTHRITIC THERAPY: 15.0 - 30.0 MG/DL. Name Value Range Interpretation Description Data Sup porting Code Source(s) Document(s ) Salicylates < 3.0 [place] [Mass/volume] mg/dL Hospital in Serum or Plasma ID Date Data Source [id number] 02/14/2019 10:52:00 AM [facility] THERAPEUTIC RANGE: 10.0-30.0 UG/MLTOXIC RANGE: 4 HRS AFTER INGESTION >150 UG/ML 12 HRS AFTER INGESTION >35 UG/ML Name Value Range Interpretation Description Data Sup porting Code Source(s) Document(s ) ACETAMINOPHEN < 10.0 [place] ug/mL Hospital ID Date Data Source [id number] 02/14/2019 10:52:00 AM [facility] Name Value Range Interpretation Code Description Data Bryanna rce(s) Supporting Document(s ) Lipase 20 U/L [place] [Enzymatic Hospital activity/vo lume] in Serum or Plasma ID Date Data Source [id number] 02/14/2019 10:52:00 AM [facility] CUT-OFF >= 25 NG/ML.THE FINDINGS OF THE [...] rce(s) Supporting Document(s ) PCP (UR) NEGATIVE [place] [facility] ID Date Data Source [id number] 02/14/2019 10:52:00 AM [facility] CUT-OFF >= 50 NG/ML. Name Value Range Interpretation Code Description Data Bryanna rce(s) Supporting Document(s ) THC (UR) NEGATIVE Health System ID Date Data Source [id number] 02/14/2019 10:52:00 AM [facility] CUT-OFF >= 300 NG/ML. Name Value Range Interpretation Description Data Sup porting Code Source(s) Document(s ) OPIATES (UR) NEGATIVE Health System ID Date Data Source [id number] 02/14/2019 10:52:00 AM [facility] CUT-OFF >= 300 NG/ML. Name Value Range Interpretation Description Data Sup porting Code Source(s) Document(s ) COCAINE (UR) POSITIVE Health System ID Date Data Source [id number] 02/14/2019 10:52:00 AM [facility] CUT-OFF >= 200 NG/ML. Name Value Range Interpretation Description Data Sup porting Code Source(s) Document(s ) BENZODIAZEPINES NEGATIVE [place] (UR) [facility] ID Date Data Source [id number] 02/14/2019 10:52:00 AM [facility] CUT-OFF >= 200 NG/ML. Name Value Range Interpretation Description Data Sup porting Code Source(s) Document(s ) BARBITURATES NEGATIVE [place] (UR) Hospital ID Date Data Source [id number] 02/14/2019 10:52:00 AM [facility] CUT-OFF >= 1000 NG/ML. Name Value Range Interpretation Description Data Sup porting Code Source(s) Document(s ) AMPHETAMINES NEGATIVE [place] (UR) Hospital ID Date Data Source [id number] 02/14/2019 10:52:00 AM [facility] REFERENCE RANGES: NONE DETECTED <20 MG/DL NONE TO MILD EUPHORIA 20-49 MG/DL MILD EUPHORIA 50-99 MG/DL MODERATE EUPHORIA 100-149 MG/DL INTOXICATION 150-300 MG/DL Name Value Range Interpretation Description Data Sup porting Code Source(s) Document(s ) Ethanol < 20 [place] [Mass/volume mg/dL Hospital ] in Serum or Plasma ID Date Data Source [id number] 02/14/2019 10:52:00 AM [facility] TEST RESULT IS A TOTAL TRICYCLIC VALUE.T [...] Code Source(s) Document(s ) TRICYCLIC < 80 [place] ANTIDEPRESSANT ng/mL Hospital ID Date Data Source [id number] 02/14/2019 10:52:00 AM [facility] REFERENCE RANGES: ANALGESIC: 0.0 - 10.0 MG/DL. ARTHRITIC THERAPY: 15.0 - 30.0 MG/DL. Name Value Range Interpretation Description Data Sup porting Code Source(s) Document(s ) Salicylates < 3.0 [place] [Mass/volume] mg/dL Hospital in Serum or Plasma ID Date Data Source [id number] 02/14/2019 10:52:00 AM [facility] THERAPEUTIC RANGE: 10.0-30.0 UG/MLTOXIC RANGE: 4 HRS AFTER INGESTION >150 UG/ML 12 HRS AFTER INGESTION >35 UG/ML Name Value Range Interpretation Description Data Sup porting Code Source(s) Document(s ) ACETAMINOPHEN < 10.0 [place] ug/mL Hospital ID Date Data Source [id number] 02/14/2019 10:52:00 AM [facility] Name Value Range Interpretation Code Description Data Bryanna rce(s) Supporting Document(s ) Lipase 20 U/L [place] [Enzymatic Hospital activity/vo lume] in Serum or Plasma ID Date Data Source [id number] 02/14/2019 10:52:00 AM [facility] Name Value Range Interpretation Description Data Sup porting Code Source(s) Document(s ) Aspartate 79 U/L [facility] [place] [Enzymatic Hospital activity/volume] in Serum or Plasma ID Date Data Source [id number] 02/14/2019 10:52:00 AM [facility] Name Value Range Interpretation Description Data Sup porting Code Source(s) Document(s ) Alanine 36 U/L [place] aminotransferase [place] [Enzymatic Hospital activity/volume] in Serum or Plasma ID Date Data Source [id number] 02/14/2019 10:52:00 AM [facility] Name Value Range Interpretation Description Data Sup porting Code Source(s) Document(s ) Alkaline 118 U/L [place] phosphatase Hospital [Enzymatic activity/volume ] in Serum or Plasma ID Date Data Source [id number] 02/14/2019 10:52:00 AM [facility] Name Value Range Interpretation Description Data Sup porting Code Source(s) Document(s ) Bilirubin.t 1.2 mg/dL [facility] [Mass/volum e] in Serum or Plasma ID Date Data Source [id number] 02/14/2019 10:52:00 AM [facility] Name Value Range Interpretation Code Description Data Bryanna rce(s) Supporting Document(s ) Albumin/Glob 1.1 [facility] [Mass Hospital Ratio] in Serum or Plasma ID Date Data Source [id number] 02/14/2019 10:52:00 AM [facility] Name Value Range Interpretation Description Data Sup porting Code Source(s) Document(s ) Albumin 3.8 g/dL [place] [Mass/volume Hospital ] in Serum or Plasma ID Date Data Source [id number] 02/14/2019 10:52:00 AM [facility] Name Value Range Interpretation Description Data Sup porting Code Source(s) Document(s ) Protein 7.2 g/dL [place] [Mass/volume Hospital ] in Serum or Plasma ID Date Data Source [id number] 02/14/2019 10:52:00 AM EST [place] [facility] Name Value Range Interpretation Description Data Sup porting Code Source(s) Document(s ) Leukocyte NEGATIVE [place] esterase Hospital [Presence] in Urine by Test strip ID Date Data Source [id number] 02/14/2019 10:52:00 AM EST [place] [facility] Name Value Range Interpretation Description Data Sup porting Code Source(s) Document(s ) URINE NEGATIVE [place] NITRITES Hospital ID Date Data Source [id number] 02/14/2019 10:52:00 AM [facility] Hospital Name Value Range Interpretation Description Data Sup porting Code Source(s) Document(s ) Erythrocytes NEGATIVE [place] [#/volume] in Hospital Urine by Test strip ID Date Data Source [id number] 02/14/2019 10:52:00 AM [facility] Hospital Name Value Range Interpretation Code Description Data Bryanna rce(s) Supporting Document(s ) Bilirubin. NEGATIVE [place] total Hospital [Presence] in Urine by Test strip ID Date Data Source [id number] 02/14/2019 10:52:00 AM [facility] Hospital Name Value Range Interpretation Description Data Sup porting Code Source(s) Document(s ) Urobilinogen 1.0 [place] [Units/volume] mg/dL Hospital in Urine by Test strip ID Date Data Source [id number] 02/14/2019 10:52:00 AM [facility] Hospital Name Value Range Interpretation Description Data Sup porting Code Source(s) Document(s ) Ketones NEGATIVE [place] [Mass/volume Hospital ] in Urine by Test strip ID Date Data Source [id number] 02/14/2019 10:52:00 AM [facility] Hospital Name Value Range Interpretation Code Description Data Bryanna rce(s) Supporting Document(s ) Glucose 3+ [place] [Mass/volume Hospital ] in Urine by Test strip ID Date Data Source [id number] 02/14/2019 10:52:00 AM [facility] Name Value Range Interpretation Description Data Sup porting Code Source(s) Document(s ) Protein NEGATIVE [place] [Presence] Hospital in Urine by Test strip ID Date Data Source [id number] 02/14/2019 10:52:00 AM [facility] Name Value Range Interpretation Code Description Data Bryanna rce(s) Supporting Document(s ) pH of Urine 6.5 [place] by Test Hospital strip ID Date Data Source [id number] 02/14/2019 10:52:00 AM [facility] Value Range Interpretation Code Description Data Supporting Source(s) Document(s ) Specific 1.039 [place] gravity of Hospital Urine by Test strip ID Date Data Source [id number] 02/14/2019 10:52:00 AM [facility] Name Value Range Interpretation Description Data Sup porting Code Source(s) Document(s ) Clarity in Urine CLEAR [place] by Refractometry Hospital automated ID Date Data Source [id number] 02/14/2019 10:52:00 AM [facility] Name Value Range Interpretation Code Description Data Bryanna rce(s) Supporting Document(s ) Color of YELLOW [place] Urine Hospital ID Date Data Source [id number] 02/14/2019 10:52:00 AM [facility] Name Value Range Interpretation Description Data Sup porting Code Source(s) Document(s ) Platelet mean 11.9 fL [place] volume Hospital [Entitic volume] in Blood by Automated count ID Date Data Source [id number] 02/14/2019 10:52:00 AM [facility] Name Value Range Interpretation Description Data Sup porting Code Source(s) Document(s ) Platelets 198 [place] [#/volume] in 10*3/uL Hospital Blood by Automated count ID Date Data Source [id number] 02/14/2019 10:52:00 AM [facility] Value Range Interpretation Description Data Sup porting Code Source(s) Document(s ) Erythrocyte 13.7 % [facility] width [Ratio] by Automated count ID Date Data Source [id number] 02/14/2019 10:52:00 AM [facility] Value Range Interpretation Description Data Sup porting Code Source(s) Document(s ) Erythrocyte mean 34.2 [place] corpuscular g/dL [facility] hemoglobin concentration [Mass/volume] by Automated count ID Date Data Source [id number] 02/14/2019 10:52:00 AM [facility] Value Range Interpretation Description Data Sup porting Code Source(s) Document(s ) Erythrocyte 29.6 pg [facility] corpuscular hemoglobin [Entitic mass] by Automated count ID Date Data Source [id number] 02/14/2019 10:52:00 AM [facility] Value Range Interpretation Description Data Sup porting Code Source(s) Document(s ) Erythrocyte 86.5 fL [facility] corpuscular volume [Entitic volume] by Automated count ID Date Data Source [id number] 02/14/2019 10:52:00 AM [facility] Value Range Interpretation Description Data Sup porting Code Source(s) Document(s ) Hematocrit 37.1 % [place] [Volume Hospital Fraction] of Blood by Automated count ID Date Data Source [id number] 02/14/2019 10:52:00 AM [facility] Value Range Interpretation Description Data Sup porting Code Source(s) Document(s ) Hemoglobin 12.7 g/dL [place] [Mass/volume] Hospital in Blood ID Date Data Source [id number] 02/14/2019 10:52:00 AM EST [place] [facility] Name Value Range Interpretation Description Data Sup porting Code Source(s) Document(s ) Erythrocytes 4.29 [place] [#/volume] in 10*6/uL Hospital Blood by Automated count ID Date Data Source [id number] 02/14/2019 10:52:00 AM EST [place] [facility] Name Value Range Interpretation Description Data Sup porting Code Source(s) Document(s ) Leukocytes 5.3 [place] [#/volume] in 10*3/uL Hospital Blood by Automated count Procedure Social History Code Duration Value Status Description Data Source(s ) Smoking 01/18/2020 Ex-smoker completed Ex-smoker [place] 06:37:00 PM EDT (finding) (finding) Hospital Smoking 01/10/2020 Tobacco smoking completed Tobacco smoking [facility] [place] 01:14:00 AM EDT consumption consumption Hospita [facility] unknown (finding) unknown (finding) Smoking 01/08/2020 Tobacco smoking completed Tobacco smoking [facility] [place] 08:00:00 AM EDT consumption consumption Hospita l unknown (finding) unknown (finding) Smoking 12/21/2019 Never smoked completed Never smoked [facility] 06:48:00 AM EDT tobacco (finding) tobacco (find ing) Hospital Smoking 12/16/2019 Ex-smoker completed Ex-smoker [place] 03:47:00 AM EDT (finding) (finding) Hospital Smoking 11/30/2019 Ex-smoker completed Ex-smoker [place] 09:30:00 PM EDT (finding) (finding) Hospital Smoking 11/21/2019 Ex-smoker completed Ex-smoker [place] 01:19:00 AM EDT (finding) (finding) Hospital Smoking 10/26/2019 Ex-smoker completed Ex-smoker [place] 03:24:00 AM EDT (finding) (finding) Hospital Smoking 06/17/2019 Current some day completed Current some day [facility] [place] 11:02:00 PM EST smoker smoker Hospital Smoking 05/26/2019 Never smoked completed Never smoked [facility] 08:05:00 AM EST tobacco (finding) tobacco (find ing) Hospital Smoking 05/19/2019 Ex-smoker completed Ex-smoker [place] 09:31:00 PM EST (finding) (finding) Hospital Smoking 04/16/2019 Never smoked completed Never smoked [facility] 12:50:00 PM EST tobacco (finding) tobacco (find ing) Hospital Smoking 03/02/2019 Never smoked completed Never smoked [facility] 03:31:00 PM EST tobacco (finding) tobacco (find ing) [facility] Vital Signs ID Date Data Source UNK Name Value Range Interpretation Code Description Data Source(s) Diastolic blood 76 mm[Hg] 76 mm[Hg] [facility] Systolic blood 116 mm[Hg] 116 mm[Hg] [facility] Respiratory rate 18 /min 18 /min [facility] Heart rate 69 /min 69 /min Health System Body temperature 36.54928 [facility] 36.85331 [facility] Body temperature 97.6 [degF] 97.6 [degF] Health System Systolic blood 131 mm[Hg] 131 mm[Hg] [facility] Diastolic blood 68 mm[Hg] 68 mm[Hg] [facility] Respiratory rate 15 /min 15 /min [facility] Heart rate 69 /min 69 /min Health System Body mass index 20.0 kg/m2 20.0 kg/m2 [facility] (BMI) [Ratio] Hospital Body weight 110.23 [lb_av] 110.23 [lb_av] Health System Diastolic blood 84 mm[Hg] 84 mm[Hg] [facility] Systolic blood 157 mm[Hg] 157 mm[Hg] [facility] Respiratory rate 18 /min 18 /min [facility] Heart rate 60 /min 60 /min Health System Body temperature 36.39145 [place] 36.99221 [facility] Body temperature 97.6 [degF] 97.6 [degF] Health System Body mass index 20.0 kg/m2 20.0 kg/m2 [facility] (BMI) [Ratio] Hospital Body weight 120.24 [lb_av] 120.24 [lb_av] Health System Diastolic blood 87 mm[Hg] 87 mm[Hg] [facility] Systolic blood 142 mm[Hg] 142 mm[Hg] [facility] Respiratory rate 18 /min 18 /min [facility] Heart rate 55 /min 55 /min Health System Body temperature 36.92915 [place] 36.69895 [facility] Body temperature 97.8 [degF] 97.8 [degF] Health System Body mass index 20.0 kg/m2 20.0 kg/m2 [facility] ins (BMI) [Ratio] Hospital Body weight 129.28 [lb_av] 129.28 [lb_av] Health System Diastolic blood 90 mm[Hg] 90 mm[Hg] [facility] pressure Hospital Systolic blood 164 mm[Hg] 164 mm[Hg] [facility] pressure [facility] Respiratory rate 18 /min 18 /min [facility] Heart rate 85 /min 85 /min Health System Body temperature 36.85596 [place] 36.16511 [facility] Body temperature 97.6 [degF] 97.6 [degF] Health System Body mass index 19.0 kg/m2 19.0 kg/m2 [facility] ins (BMI) [Ratio] Hospital Body weight 121.25 [lb_av] 121.25 [lb_av] Health System Diastolic blood 73 mm[Hg] 73 mm[Hg] [facility] Systolic blood 153 mm[Hg] 153 mm[Hg] [facility] pressure Hospital Respiratory rate 18 /min 18 /min [facility] Heart rate 55 /min 55 /min Health System Body temperature 36.46364 [place] 36.18614 [facility] Body temperature 98.0 [degF] 98.0 [degF] Health System Body mass index 20.2 kg/m2 20.2 kg/m2 [facility] ins (BMI) [Ratio] Hospital Body weight 125 [lb_av] 125 [lb_av] [facility] Diastolic blood 81 mm[Hg] 81 mm[Hg] [facility] pressure Hospital Systolic blood 121 mm[Hg] 121 mm[Hg] [facility] pressure Hospital Respiratory rate 18 /min 18 /min [facility] Heart rate 75 /min 75 /min Health System Body temperature 36.33798 [facility] 36.64827 [facility] Body temperature 98.2 [degF] 98.2 [degF] Health System Systolic blood 121 mm[Hg] 121 mm[Hg] [facility] pressure Hospital Systolic blood 121 mm[Hg] 121 mm[Hg] [facility] Diastolic blood 72 mm[Hg] 72 mm[Hg] [facility] Diastolic blood 72 mm[Hg] 72 mm[Hg] [facility] Respiratory rate 16 /min 16 /min [facility] Respiratory rate 16 /min 16 /min [facility] Heart rate 81 /min 81 /min [facility] Heart rate 81 /min 81 /min [facility] Systolic blood 121 mm[Hg] 121 mm[Hg] [facility] Systolic blood 121 mm[Hg] 121 mm[Hg] [facility] Diastolic blood 72 mm[Hg] 72 mm[Hg] [facility] Diastolic blood 72 mm[Hg] 72 mm[Hg] [facility] Respiratory rate 16 /min 16 /min [address] [address] [facility] Respiratory rate 16 /min 16 /min [facility] Heart rate 81 /min 81 /min [facility] Heart rate 81 /min 81 /min [facility] Systolic blood 121 mm[Hg] 121 mm[Hg] [facility] Systolic blood 121 mm[Hg] 121 mm[Hg] [facility] Diastolic blood 72 mm[Hg] 72 mm[Hg] [facility] Diastolic blood 72 mm[Hg] 72 mm[Hg] [facility] Respiratory rate 16 /min 16 /min [facility] Respiratory rate 16 /min 16 /min [facility] Heart rate 81 /min 81 /min [facility] Heart rate 81 /min 81 /min [facility] Systolic blood 124 mm[Hg] 124 mm[Hg] [facility] Diastolic blood 76 mm[Hg] 76 mm[Hg] [facility] Respiratory rate 15 /min 15 /min [facility] Heart rate 77 /min 77 /min [facility] Systolic blood 124 mm[Hg] 124 mm[Hg] [facility] Diastolic blood 76 mm[Hg] 76 mm[Hg] [facility] Respiratory rate 15 /min 15 /min [facility] Heart rate 77 /min 77 /min [facility] Body mass index 24.0 kg/m2 24.0 kg/m2 [facility] (BMI) [Ratio] Hospital Body weight 149.91 [lb_av] 149.91 [lb_av] [facility] Diastolic blood 72 mm[Hg] 72 mm[Hg] [facility] Systolic blood 132 mm[Hg] 132 mm[Hg] [facility] Res[facility] 17 /min 17 /min [facility] Heart rate 76 /min 76 /min [facility] Body temperature 36.86319 Ashanti 36.93639 Ashanti [facility] Body temperature 98.0 [degF] 98.0 [degF] [facility] Body mass index 24.0 kg/m2 24.0 kg/m2 [facility] (BMI) [Ratio] Hospital Body weight 150.31 [lb_av] 150.31 [lb_av] [facility] Diastolic blood 73 mm[Hg] 73 mm[Hg] [facility] pressure Hospital Systolic blood 131 mm[Hg] 131 mm[Hg] [facility] pressure Hospital Respiratory rate 18 /min 18 /min [facility] Heart rate 62 /min 62 /min [facility] Body temperature 37.05135 Ashanti 37.28781 Ashanti [facility] Body temperature 98.6 [degF] 98.6 [degF] [facility] Body mass index 20.0 kg/m2 20.0 kg/m2 [facility] (BMI) [Ratio] Hospital Body weight 125.31 [lb_av] 125.31 [lb_av] [facility] Diastolic blood 86 mm[Hg] 86 mm[Hg] [facility] Systolic blood 156 mm[Hg] 156 mm[Hg] [facility] pressure Hospital Respiratory rate 18 /min 18 /min [facility] Heart rate 65 /min 65 /min [facility] Body temperature 36.49291 Ashanti 36.04439 Ashanti [facility] Body temperature 98.2 [degF] 98.2 [degF] [facility] Body mass index 20.0 kg/m2 20.0 kg/m2 [facility] (BMI) [Ratio] Hospital Body weight 125.27 [lb_av] 125.27 [lb_av] [facility] Diastolic blood 74 mm[Hg] 74 mm[Hg] [facility] pressure Hospital Systolic blood 136 mm[Hg] 136 mm[Hg] [facility] Respiratory rate 18 /min 18 /min [facility] Heart rate 67 /min 67 /min [facility] Body temperature 36.03991 Ashanti 36.28712 Ashanti [facility] Body temperature 98.3 [degF] 98.3 [degF] [facility] Body mass index 17.0 kg/m2 17.0 kg/m2 [facility] (BMI) [Ratio] Hospital Body weight 110.23 [lb_av] 110.23 [lb_av] [facility] Diastolic blood 88 mm[Hg] 88 mm[Hg] [facility] pressure Hospital Systolic blood 147 mm[Hg] 147 mm[Hg] [facility] pressure Hospital Respiratory rate 18 /min 18 /min [facility] Heart rate 65 /min 65 /min [facility] Body temperature 37.79459 Ashanti 37.34176 Ashanti [facility] Body temperature 98.7 [degF] 98.7 [degF] [facility] Body mass index 19.0 kg/m2 19.0 kg/m2 [facility] (BMI) [Ratio] Hospital Body weight 122.25 [lb_av] 122.25 [lb_av] [facility] Diastolic blood 93 mmHg 93 mmHg [facility] Systolic blood 157 mmHg 157 mmHg [facility] Respiratory rate 16 bpm 16 bpm [facility] Heart rate 75 bpm 75 bpm [facility] Body [facility] 98.5 [facility] Di[facility] blood 95 mmHg 95 mmHg [facility] Systolic blood 145 mmHg 145 mmHg [facility] Respiratory rate 18 bpm 18 bpm [facility] Heart rate 86 bpm 86 bpm [facility] Body temperature 97.1 [facility] Res[facility] rate 18 bpm 18 bpm [facility] Body temperature 97.9 [facility] Diastolic blood 97 mmHg 97 mmHg [facility] Systolic blood 152 mmHg 152 mmHg [facility] Heart rate 83 bpm 83 bpm [facility] Respiratory rate 18 bpm 18 bpm [facility] Body temperature 98.7 [facility] Diastolic blood 79 mmHg 79 mmHg [facility] Systolic blood 131 mmHg 131 mmHg [facility] Heart rate 78 bpm 78 bpm [facility] Diastolic blood 90 mmHg 90 mmHg [facility] Systolic blood 141 mmHg 141 mmHg [facility] Heart rate 82 bpm 82 bpm [facility] Diastolic blood 77 mmHg 77 mmHg [facility] Systolic blood 136 mmHg 136 mmHg [facility] Respiratory rate 18 bpm 18 bpm [facility] Heart rate 93 bpm 93 bpm [facility] Body temperature 97.9 [facility] 97.[facility] Body weight 129 lbs 129 lbs [facility] Diastolic blood 98 mmHg 98 mmHg [facility] Systolic blood 159 mmHg 159 mmHg [facility] Heart rate 104 bpm 104 bpm [facility] Diastolic blood 97 mmHg 97 mmHg [facility] Systolic blood 159 mmHg 159 mmHg [facility] Respiratory rate 18 bpm 18 bpm [facility] Heart rate 95 bpm 95 bpm [facility] Body temperature 98.6 [facility] Diastolic blood 90 mm[Hg] 90 mm[Hg] [facility] Systolic blood 146 mm[Hg] 146 mm[Hg] [facility] Respiratory rate 18 /min 18 /min [facility] Heart rate 77 /min 77 /min [facility] Body temperature 36.34569 Ashanti 36.31953 Ashanti [facility] Body temperature 98.1 [degF] 98.1 [degF] [facility] Body mass index 19.0 kg/m2 19.0 kg/m2 [facility] (BMI) [Ratio] Hospital Body weight 122.25 [lb_av] 122.25 [lb_av] [facility] Diastolic blood 87 mmHg 87 mmHg [facility] Systolic blood 160 mmHg 160 mmHg [facility] Heart rate 112 bpm 112 bpm [facility] Diastolic blood 91 mmHg 91 mmHg [facility] Systolic blood 142 mmHg 142 mmHg [facility] Respiratory rate 18 bpm 18 bpm [facility] Heart rate 107 bpm 107 bpm [facility] Body temperature 97.3 [facility] 97.[facility] Diastolic blood 71 mm[Hg] 71 mm[Hg] [facility] Systolic blood 121 mm[Hg] 121 mm[Hg] [facility] Respiratory rate 18 /min 18 /min [facility] Heart rate 90 /min 90 /min [facility] Body temperature 36.29499 Ashanti 36.83008 Ashanti [facility] Body temperature 98.3 [degF] 98.3 [degF] [facility] Body mass index 24.0 kg/m2 24.0 kg/m2 [facility] (BMI) [Ratio] Hospital Body weight 139.99 [lb_av] 139.99 [lb_av] [facility] Diastolic blood 76 mm[Hg] 76 mm[Hg] [facility] pressure Hospital Systolic blood 126 mm[Hg] 126 mm[Hg] [facility] Respiratory rate 18 /min 18 /min [facility] Heart rate 85 /min 85 /min [facility] Body temperature 37.54487 Ashanti 37.45850 Ashanti [facility] Body temperature 98.9 [degF] 98.9 [degF] [facility] Body mass index 21.0 kg/m2 21.0 kg/m2 [facility] (BMI) [Ratio] Hospital Body weight 130 [lb_av] 130 [lb_av] [facility] Diastolic blood 90 mm[Hg] 90 mm[Hg] [facility] pressure Hospital Systolic blood 159 mm[Hg] 159 mm[Hg] [facility] Respiratory rate 18 /min 18 /min [facility] Heart rate 77 /min 77 /min [facility] Body temperature 36.74170 Ashanti 36.16634 Ashanti [facility] Body temperature 98.5 [degF] 98.5 [degF] [facility] Body mass index 20.0 kg/m2 20.0 kg/m2 [facility] (BMI) [Ratio] Hospital Body weight 129.28 [lb_av] 129.28 [lb_av] [facility] Diastolic blood 84 mm[Hg] 84 mm[Hg] [facility] pressure Hospital Systolic blood 136 mm[Hg] 136 mm[Hg] [facility] pressure Hospital Respiratory rate 18 /min 18 /min [facility] Heart rate 68 /min 68 /min [facility] Body temperature 37.68117 Ashanti 37.05511 Ashanti [facility] Body temperature 98.7 [degF] 98.7 [degF] [facility] Body mass index 19.0 kg/m2 19.0 kg/m2 [facility] (BMI) [Ratio] [facility] Body weight 120.26 [lb_av] 120.26 [lb_av] [facility] Diastolic blood 87 mm[Hg] 87 mm[Hg] [facility] Systolic blood 140 mm[Hg] 140 mm[Hg] [facility] Respiratory rate 18 /min 18 /min [facility] Heart rate 83 /min 83 /min [facility] Body temperature 36.58565 Ashanti 36.89001 Ashanti [facility] Body temperature 98.3 [degF] 98.3 [degF] [facility] Body mass index 19.0 kg/m2 19.0 kg/m2 [facility] (BMI) [Ratio] Hospital Body weight 130.27 [lb_av] 130.27 [lb_av] [facility] Diastolic blood 103 mmHg 103 mmHg [facility] Systolic blood 183 mmHg 183 mmHg [facility] Respiratory rate 18 bpm 18 bpm [facility] Heart rate 75 bpm 75 bpm [facility] Body temperature 98.5 Fahrenheit 98.5 Fahrenh t [facility] Diastolic blood 93 mmHg 93 mmHg [facility] Systolic blood 175 mmHg 175 mmHg [facility] Respiratory rate 20 bpm 20 bpm [facility] Heart rate 86 bpm 86 bpm [facility] Diastolic blood 93 mmHg 93 mmHg [facility] Systolic blood 165 mmHg 165 mmHg [facility] Respiratory rate 20 bpm 20 bpm [facility] Heart rate 89 bpm 89 bpm [facility] Body temperature 97.1 Fahrenheit 97.1 Fahrenh t [facility] Diastolic blood 82 mmHg 82 mmHg [facility] Systolic blood 128 mmHg 128 mmHg [facility] Respiratory rate 17 bpm 17 bpm [facility] Heart rate 115 bpm 115 bpm [facility] Body temperature 97.4 Fahrenheit 97.4 Fahrenh t [facility] Diastolic blood 79 mmHg 79 mmHg [facility] Systolic blood 115 mmHg 115 mmHg [facility] Respiratory rate 17 bpm 17 bpm [facility] Heart rate 109 bpm 109 bpm [facility] Body temperature 97.4 Fahrenheit 97.4 Fahrenh t [facility] Diastolic blood 83 mm[Hg] 83 mm[Hg] [facility] Systolic blood 132 mm[Hg] 132 mm[Hg] [facility] Respiratory rate 20 /min 20 /min [facility] Heart rate 83 /min 83 /min [facility] Body temperature 36.36029 Ashanti 36.38437 Ashanti [facility] Body temperature 97.9 [degF] 97.9 [degF] [facility] Body mass index 25.8 kg/m2 25.8 kg/m2 [facility] (BMI) [Ratio] Hospital Body weight 160 [lb_av] 160 [lb_av] [facility] Diastolic blood 90 mmHg 90 mmHg [facility] Systolic blood 143 mmHg 143 mmHg [facility] Respiratory rate 18 bpm 18 bpm [facility] Heart rate 107 bpm 107 bpm [facility] Diastolic blood 71 mmHg 71 mmHg [facility] Systolic blood 111 mmHg 111 mmHg [facility] Respiratory rate 18 bpm 18 bpm [facility] Heart rate 101 bpm 101 bpm [facility] Diastolic blood 104 mmHg 104 mmHg [facility] Systolic blood 182 mmHg 182 mmHg [facility] Respiratory rate 20 bpm 20 bpm [facility] Heart rate 83 bpm 83 bpm [facility] Body temperature 97.1 Fahrenheit 97.1 Fahrenhei t [facility] Diastolic blood 103 mmHg 103 mmHg [facility] Systolic blood 163 mmHg 163 mmHg [facility] Respiratory rate 20 bpm 20 bpm [facility] Heart rate 83 bpm 83 bpm [facility] Diastolic blood 87 mmHg 87 mmHg [facility] Systolic blood 146 mmHg 146 mmHg [facility] Respiratory rate 18 bpm 18 bpm [facility] Heart rate 86 bpm 86 bpm [facility] Diastolic blood 86 mmHg 86 mmHg [facility] Systolic blood 148 mmHg 148 mmHg [facility] Respiratory rate 18 bpm 18 bpm [facility] Heart rate 85 bpm 85 bpm [facility] Body temperature 97.6 Fahrenheit 97.6 Fahrenhei t [facility] Diastolic blood 105 mmHg 105 mmHg [facility] Systolic blood 162 mmHg 162 mmHg [facility] Respiratory rate 18 bpm 18 bpm [facility] Heart rate 86 bpm 86 bpm [facility] Diastolic blood 97 mmHg 97 mmHg [facility] Systolic blood 159 mmHg 159 mmHg [facility] Respiratory rate 18 bpm 18 bpm [facility] Heart rate 82 bpm 82 bpm [facility] Diastolic blood 94 mmHg 94 mmHg [facility] Systolic blood 173 mmHg 173 mmHg [facility] Respiratory rate 18 bpm 18 bpm [facility] Heart rate 74 bpm 74 bpm [facility] Diastolic blood 82 mmHg 82 mmHg [facility] Systolic blood 159 mmHg 159 mmHg [facility] Respiratory rate 18 bpm 18 bpm [facility] Heart rate 71 bpm 71 bpm [facility] Body temperature 97.7 Fahrenheit 97.7 Fahrenhei t [facility] Diastolic blood 85 mmHg 85 mmHg [facility] Systolic blood 159 mmHg 159 mmHg [facility] Respiratory rate 18 bpm 18 bpm [facility] Heart rate 74 bpm 74 bpm [facility] Diastolic blood 83 mmHg 83 mmHg [facility] Systolic blood 144 mmHg 144 mmHg [facility] Respiratory rate 18 bpm 18 bpm [facility] Heart rate 74 bpm 74 bpm [facility] Body temperature 97.9 Fahrenheit 97.9 Fahrenhei t [facility] Diastolic blood 100 mmHg 100 mmHg [facility] Systolic blood 146 mmHg 146 mmHg [facility] Respiratory rate 18 bpm 18 bpm [facility] Heart rate 71 bpm 71 bpm [facility] Body temperature 96.9 Fahrenheit 96.9 Fahrenhei t [facility] Diastolic blood 99 mmHg 99 mmHg [facility] Systolic blood 154 mmHg 154 mmHg [facility] Respiratory rate 18 bpm 18 bpm [facility] Heart rate 73 bpm 73 bpm [facility] Body temperature 96.9 Fahrenheit 96.9 Fahrenhei t [facility] Diastolic blood 84 mmHg 84 mmHg [facility] Systolic blood 130 mmHg 130 mmHg [facility] Diastolic blood 103 mmHg 103 mmHg [facility] Systolic blood 165 mmHg 165 mmHg [facility] Respiratory rate 20 bpm 20 bpm [facility] Heart rate 78 bpm 78 bpm [facility] Diastolic blood 97 mmHg 97 mmHg [facility] Systolic blood 160 mmHg 160 mmHg [facility] Respiratory rate 20 bpm 20 bpm [facility] Heart rate 79 bpm 79 bpm [facility] Body temperature 98.8 Fahrenheit 98.8 Fahrenhei t [facility] Diastolic blood 94 mmHg 94 mmHg [facility] Systolic blood 139 mmHg 139 mmHg [facility] Respiratory rate 18 bpm 18 bpm [facility] Heart rate 79 bpm 79 bpm [facility] Diastolic blood 89 mmHg 89 mmHg [facility] Systolic blood 149 mmHg 149 mmHg [facility] Respiratory rate 18 bpm 18 bpm [facility] Heart rate 76 bpm 76 bpm [facility] Body temperature 96.3 [facility] Di[facility] blood 87 mmHg 87 mmHg [facility] Systolic blood 150 mmHg 150 mmHg [facility] Respiratory rate 18 bpm 18 bpm [facility] Heart rate 90 bpm 90 bpm [facility] Diastolic blood 84 mmHg 84 mmHg [facility] Systolic blood 149 mmHg 149 mmHg [facility] Respiratory rate 18 bpm 18 bpm [facility] Heart rate 84 bpm 84 bpm [facility] Body temperature 97.1 [facility] Di[facility] blood 71 mm[Hg] 71 mm[Hg] [facility] Systolic blood 112 mm[Hg] 112 mm[Hg] [facility] Heart rate 84 /min 84 /min [facility] Body temperature 36.27942 Ashanti 36.98852 Ashanti [facility] Body temperature 98.3 [degF] 98.3 [degF] [facility] Respiratory rate 18 /min 18 /min [facility] Body mass index 20.0 kg/m2 20.0 kg/m2 [facility] (BMI) [Ratio] Hospital Body weight 128.26 [lb_av] 128.26 [lb_av] [facility] ID Date Data Source [id number] 01/20/2020 11:17:10 AM [facility] Name Value Range Interpretation Code Description Data Source(s) Body weight Measured 129 lb 129 lb [facility] ID Date Data Source [id number] 01/14/2020 03:50:20 PM EDT [facility] Name Value Range Interpretation Code Description Data Source(s) Body weight Measured 129 lb 129 lb [facility] ID Date Data Source [id number] 12/22/2019 03:25:21 PM [facility] Name Value Range Interpretation Code Description Data Source(s) Body weight Measured 129 lb 129 lb [facility] ID Date Data Source [id number] 07/29/2019 03:46:49 PM [facility] Name Value Range Interpretation Code Description Data Source(s) Body weight Measured 129 lb 129 lb [facility] ID Date Data Source [id number] 05/25/2019 11:49:31 PM EST [facility] Name Value Range Interpretation Code Description Data Source(s) Body weight Measured 129 lb 129 lb [facility]
[2020-01-26] MEDS ORDERED: LACTULOSE 20 GM/30 ML UDC (FOR ORAL USE ONLY) ONE (18:20)
[2020-01-26] MEDS ORDERED: HALOPERIDOL LACTATE 5 MG/ML ONE (18:20)
[2020-01-26 18:46] LABS: VENOUS PCO2 45.1 mmHg (38-52); VENOUS PH 7.383 (7.310-7.410)
[2020-01-27] MEDS ORDERED: LACTULOSE 20 GM/30 ML UDC (FOR ORAL USE ONLY) PO PRN ×2 (06:38→07:12)
--- NOTE | 2020-01-27 06:49 | HP ---
CHIEF COMPLAINT: AMS PCP: denies HISTORY OF PRESENT ILLNESS: 60 F h/o PSA w/ Etoh/crack/cocaine/active smoker, h/o liver cirrhosis, bipolar depression, HTN, HLD, T2DM, presents w/ AMS from [facility]. Patient received PO Lactulose after large non-bloody BM, MS improved and patient started holding convervsations but still tired appearing. During exam pt. notably withdrawn, answers only to simple questions, when asked more questions told providers to "leave me alone". Patient not able to answer where she follows up. ER course was notable for: (1) lactulose given w/ large BM (2) no s/o bleeding (3) Tox + for cocaine Recent Travel: denies PAST MEDICAL HISTORY: as above PAST SURGICAL HISTORY: denies Social History: yes Smoking: yes Alcohol: yes Drugs: crack, cocaine, heroin Allergies No Known Allergies Allergy (Verified 01/26/20 16:54) HOME MEDICATIONS: Home Medications Medication Instructions Recorded Aripiprazole 10 mg PO HS 01/25/20 Insulin Glargine,Hum.rec.anlog 25 units SQ HS 01/25/20 [Lantus Solostar PEN -] Insulin Lispro [Humalog] 6 unit SQ TIDCM 01/25/20 Lisinopril [Zestril] 2.5 mg PO DAILY 01/25/20 Mirtazapine [Remeron -] 15 mg PO HS 01/25/20 Sertraline HCl [Zoloft -] 50 mg PO DAILY 01/25/20 PHYSICAL EXAMINATION Vital Signs - 24 hr 01/26/20 01/26/20 01/27/20 13:13 21:45 02:00 Temperature 97.2 F L 97.9 F Pulse Rate 80 Pulse Rate [ 77 75 Left Radial] Respiratory 16 18 18 Rate Blood Pressure 138/88 Blood Pressure 126/84 117/74 [Left Arm] O2 Sat by Pulse 99 99 100 Oximetry (%) 01/27/20 06:00 Temperature Pulse Rate Pulse Rate [ 75 Left Radial] Respiratory 16 Rate Blood Pressure Blood Pressure 119/78 [Left Arm] O2 Sat by Pulse 99 Oximetry (%) GA lethargic, AAOx1, withdrawn HEENT NC/AT, no JVD< dry MM Chest CTAB CVS s1, s2+, RRR Abd slightly distended, NT, BS+ Ext no LE edema Laboratory Results - last 24 hr 01/26/20 01/26/20 01/26/20 13:43 14:05 14:05 WBC 5.8 RBC 3.95 Hgb 11.9 Hct 37.0 MCV 93.6 MCH 30.2 MCHC 32.3 RDW 15.1 Plt Count 176 MPV 10.7 D Absolute Neuts (auto) 4.5 Neutrophils % 77.8 D Lymphocytes % 17.3 D Monocytes % 4.1 Eosinophils % 0.4 D Basophils % 0.4 Nucleated RBC % 0 PT with INR INR PTT (Actin FS) VBG pH POC VBG pCO2 POC VBG pO2 VBG HCO3 VBG O2 Sat (Jeannie) VBG Base Excess Sodium Potassium Chloride Carbon Dioxide Anion Gap BUN Creatinine Est GFR (CKD-EPI)AfAm Est GFR (CKD-EPI)NonAf POC Glucometer 182 Random Glucose Calcium Magnesium Total Bilirubin AST ALT Alkaline Phosphatase Ammonia Creatine Kinase Creatine Kinase Index CK-MB (CK-2) Troponin I Total Protein Albumin TSH Urine Color Urine Appearance Urine pH Ur Specific [place] Urine Protein Urine Glucose (UA) Urine Ketones Urine Blood Urine Nitrite Urine Bilirubin Urine Urobilinogen Ur Leukocyte Esterase Salicylates < 1.7 L Opiates Screen Methadone Screen Acetaminophen < 2.0 Barbiturate Screen Phencyclidine Screen Ur Amphetamines Screen MDMA (Ecstasy) Screen Benzodiazepines Screen Cocaine Screen U Marijuana (THC) Screen Alcohol, Quantitative Blood Type Antibody Screen 01/26/20 01/26/20 01/26/20 14:05 14:05 14:05 WBC RBC Hgb Hct MCV MCH MCHC RDW Plt Count MPV Absolute Neuts (auto) Neutrophils % Lymphocytes % Monocytes % Eosinophils % Basophils % Nucleated RBC % PT with INR 11.20 INR 0.91 PTT (Actin FS) 28.4 VBG pH POC VBG pCO2 POC VBG pO2 VBG HCO3 VBG O2 Sat (Jeannie) VBG Base Excess Sodium 143 Potassium 4.3 Chloride 109 H Carbon Dioxide 30 Anion Gap 4 L BUN 12.8 Creatinine 0.6 Est GFR (CKD-EPI)AfAm 113.22 Est GFR (CKD-EPI)NonAf 97.69 POC Glucometer Random Glucose 182 H Calcium 8.8 Magnesium 1.8 Total Bilirubin 0.6 AST 41 H ALT 33 Alkaline Phosphatase 84 Ammonia Creatine Kinase 186 Creatine Kinase Index 1.2 CK-MB (CK-2) 2.4 Troponin I < 0.02 Total Protein 6.9 Albumin 2.7 L TSH 0.94 Urine Color Urine Appearance Urine pH Ur Specific [place] Urine Protein Urine Glucose (UA) Urine Ketones Urine Blood Urine Nitrite Urine Bilirubin Urine Urobilinogen Ur Leukocyte Esterase Salicylates Opiates Screen Methadone Screen Acetaminophen Barbiturate Screen Phencyclidine Screen Ur Amphetamines Screen MDMA (Ecstasy) Screen Benzodiazepines Screen Cocaine Screen U Marijuana (THC) Screen Alcohol, Quantitative < 3 Blood Type O POSITIVE Antibody Screen Negative 01/26/20 01/26/20 01/26/20 14:05 14:05 15:56 WBC RBC Hgb Hct MCV MCH MCHC RDW Plt Count MPV Absolute Neuts (auto) Neutrophils % Lymphocytes % Monocytes % Eosinophils % Basophils % Nucleated RBC % PT with INR INR PTT (Actin FS) VBG pH 7.383 POC VBG pCO2 45.1 POC VBG pO2 30.1 VBG HCO3 26.3 VBG O2 Sat (Jeannie) 56.0 L VBG Base Excess 1.0 Sodium Potassium Chloride Carbon Dioxide Anion Gap BUN Creatinine Est GFR (CKD-EPI)AfAm Est GFR (CKD-EPI)NonAf POC Glucometer Random Glucose Calcium Magnesium Total Bilirubin AST ALT Alkaline Phosphatase Ammonia 103.30 H Creatine Kinase Creatine Kinase Index CK-MB (CK-2) Troponin I Total Protein Albumin TSH Urine Color Yellow Urine Appearance Clear Urine pH 7.5 D Ur Specific [place] 1.010 Urine Protein Negative Urine Glucose (UA) Trace Urine Ketones Negative Urine Blood Negative Urine Nitrite Negative Urine Bilirubin Negative Urine Urobilinogen 0.2 Ur Leukocyte Esterase Negative Salicylates Opiates Screen Methadone Screen Acetaminophen Barbiturate Screen Phencyclidine Screen Ur Amphetamines Screen MDMA (Ecstasy) Screen Benzodiazepines Screen Cocaine Screen U Marijuana (THC) Screen Alcohol, Quantitative Blood Type Antibody Screen 01/26/20 01/27/20 15:56 03:59 WBC RBC Hgb Hct MCV MCH MCHC RDW Plt Count MPV Absolute Neuts (auto) Neutrophils % Lymphocytes % Monocytes % Eosinophils % Basophils % Nucleated RBC % PT with INR INR PTT (Actin FS) VBG pH POC VBG pCO2 POC VBG pO2 VBG HCO3 VBG O2 Sat (Jeannie) VBG Base Excess Sodium Potassium Chloride Carbon Dioxide Anion Gap BUN Creatinine Est GFR (CKD-EPI)AfAm Est GFR (CKD-EPI)NonAf POC Glucometer 310 Random Glucose Calcium Magnesium Total Bilirubin AST ALT Alkaline Phosphatase Ammonia Creatine Kinase Creatine Kinase Index CK-MB (CK-2) Troponin I Total Protein Albumin TSH Urine Color Urine Appearance Urine pH Ur Specific [place] Urine Protein Urine Glucose (UA) Urine Ketones Urine Blood Urine Nitrite Urine Bilirubin Urine Urobilinogen Ur Leukocyte Esterase Salicylates Opiates Screen Negative Methadone Screen Negative Acetaminophen Barbiturate Screen Negative Phencyclidine Screen Negative Ur Amphetamines Screen Negative MDMA (Ecstasy) Screen Negative Benzodiazepines Screen Negative Cocaine Screen Positive A* U Marijuana (THC) Screen Negative Alcohol, Quantitative Blood Type Antibody Screen Home Medications Medication Instructions Recorded Aripiprazole 10 mg PO HS 01/25/20 Insulin Glargine,Hum.rec.anlog 25 units SQ HS 01/25/20 [Lantus Solostar PEN -] Insulin Lispro [Humalog] 6 unit SQ TIDCM 01/25/20 Lisinopril [Zestril] 2.5 mg PO DAILY 01/25/20 Mirtazapine [Remeron -] 15 mg PO HS 01/25/20 Sertraline HCl [Zoloft -] 50 mg PO DAILY 01/25/20 Current Medications Generic Name Dose Route Start Last Admin Trade Name Freq PRN Reason Stop Dose Admin Aripiprazole 10 mg 01/27/20 10:00 Abilify PO DAILY CARLO Lactulose 20 gm 01/27/20 06:38 Cephulac (Oral Use) PO TID PRN CONSTIPATION Sertraline HCl 50 mg 01/27/20 10:00 Zoloft - PO DAILY CARLO ASSESSMENT/PLAN: 60 F Hepatic encephalopathy HTN T2DM HLD PSA Bipolar depression Plan: Cont. lactulose to achieve 2-3 BM/day Restart psych meds Detox consult Send [facility] for liver screening Send hepatitis profile SCD for DVT ppx Family Medical History Family History: As Documented Visit type - Emergency Visit Emergency Visit: Yes ED Registration Date: 01/26/20 Care time: The patient presented to the Emergency Department on the above date and was hospitalized for further evaluation of their emergent condition. - New Patient This patient is new to me today: Yes Date on this admission: 01/27/20 - Critical Care Critical Care patient: No
[2020-01-27 09:00] LABS: EOS % 4.8 % (0-4.5); HEMATOCRIT 33.4 % (32.4-45.2); HEMOGLOBIN 10.5 GM/dL (10.7-15.3); LYMPH % 44.8 % (8-40); MCH 29.9 pg (25.7-33.7); MCHC 31.5 g/dl (32.0-36.0); MEAN CELL VOLUME 95.1 fl (80-96); MEAN PLT VOLUME 11.1 fl (7.5-11.1); MONO % 11.5 % (3.8-10.2); NEUT % 37.9 % (42.8-82.8); PLATELET COUNT 143 K/MM3 (134-434); RBC 3.52 M/mm3 (3.60-5.2); RDW 15.3 % (11.6-15.6); WHITE BLOOD COUNT 3.3 K/mm3 (4.0-10.0)
[2020-01-27 09:15] LABS: ALBUMIN 2.2 g/dl (3.4-5.0); BILIRUBIN,TOTAL 0.9 mg/dL (0.2-1); CALCIUM 8.2 mg/dL (8.5-10.1); CREATININE 0.6 mg/dL (0.55-1.3); TOT PROT 5.7 g/dl (6.4-8.2)
[2020-01-27] MEDS: SERTRALINE HCL 50 MG TABLET (FP) PO SCH (10:25)
[2020-01-27] MEDS: ARIPiprazole 10 MG TABLET PO SCH (10:25)
--- NOTE | 2020-01-27 11:55 | CONSULT ---
Consult Detox [facility] Reason for Current Admission/Consult: Ms. Childress is a 60 yo woman with a hx of alcohol use disorder. We are consulted for continuity of care now that she has been transferred from [facility] to [facility] for altered mental status. Referred by:: Dr. Nehemias Becerra - History History of Present Illness: Ms. Childress was transferred from [facility] to [facility] yesterday due to low blood glucose and altered mental status. She has been treated with lactulose and the ammonia is trending down. 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 Cocaine- Powder Substance amount: $20 Frequency of use: Daily Substance route: Inhalation (ex: sniffing or snorting) Date of Last Use: 01/21/20 (started age 28) Marijuana/Hashish Substance amount: 1 blunts Frequency of use: Less than 3 times per week Substance route: Smoking Date of Last Use: 11/26/19 (started age 13) Nicotine Substance amount: former smoked stopped age 52 History Source: Patient Limitations to Obtaining History: No Limitations PMH: cirrhosis, DM, hypothyroidism, endentulous PsH: cholecystectomy 1984 Psych: bipolar, depression: [facility] [place] in May 2019: pills, admitted to [facility] SoC: 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 Bruce Hall (? spelling) [address] [facility] While at [facility] she received 2 doses of Ativan for alcohol withdrawal Abnormal Lab Results 01/26/20 01/26/20 01/26/20 14:05 14:05 14:05 WBC RBC Hgb MCHC Absolute Neuts (auto) Neutrophils % Lymphocytes % Monocytes % Eosinophils % VBG O2 Sat (Jeannie) Chloride 109 H Anion Gap 4 L Random Glucose 182 H Calcium AST 41 H Ammonia 103.30 H Total Protein Albumin 2.7 L Vitamin B12 Salicylates < 1.7 L Cocaine Screen Syphilis Serology RPR Titer 01/26/20 01/26/20 01/27/20 14:05 15:56 06:40 WBC 3.3 L RBC 3.52 L Hgb 10.5 L MCHC 31.5 L Absolute Neuts (auto) 1.3 L Neutrophils % 37.9 L D Lymphocytes % 44.8 H D Monocytes % 11.5 H D Eosinophils % 4.8 H D VBG O2 Sat (Jeannie) 56.0 L Chloride Anion Gap Random Glucose Calcium AST Ammonia Total Protein Albumin Vitamin B12 Salicylates Cocaine Screen Positive A* Syphilis Serology RPR Titer 01/27/20 01/27/20 01/27/20 07:57 07:57 07:57 WBC RBC Hgb MCHC Absolute Neuts (auto) Neutrophils % Lymphocytes % Monocytes % Eosinophils % VBG O2 Sat (Jeannie) Chloride 112 H Anion Gap 4 L Random Glucose 381 H Calcium 8.2 L AST 38 H Ammonia Total Protein 5.7 L Albumin 2.2 L Vitamin B12 1594 H Salicylates Cocaine Screen Syphilis Serology Reactive A* RPR Titer Reactive 1:1 H Home Medications Medication Instructions Recorded Aripiprazole 10 mg PO HS 01/25/20 Insulin Glargine,Hum.rec.anlog 25 units SQ HS 01/25/20 [Lantus Solostar PEN -] Insulin Lispro [Humalog] 6 unit SQ TIDCM 01/25/20 Lisinopril [Zestril] 2.5 mg PO DAILY 01/25/20 Mirtazapine [Remeron -] 15 mg PO HS 01/25/20 Sertraline HCl [Zoloft -] 50 mg PO DAILY 01/25/20 Home Medication List Medication Instructions Recorded Confirmed Type Aripiprazole 10 mg PO HS 01/25/20 01/26/20 History Insulin Glargine,Hum.rec.anlog 25 units SQ HS 01/25/20 01/26/20 History [Lantus Solostar PEN -] Insulin Lispro [Humalog] 6 unit SQ TIDCM 01/25/20 01/26/20 History Lisinopril [Zestril] 2.5 mg PO DAILY 01/25/20 01/26/20 History Mirtazapine [Remeron -] 15 mg PO HS 01/25/20 01/26/20 History Sertraline HCl [Zoloft -] 50 mg PO DAILY 01/25/20 01/26/20 History Active Medications Generic Name Dose Route Start Last Admin Trade Name Freq PRN Reason Stop Dose Admin Aripiprazole 10 mg 01/27/20 10:00 01/27/20 10:25 Abilify PO 10 mg DAILY CARLO Administration Lactulose 20 gm 01/27/20 07:12 Cephulac (Oral Use) PO TID PRN CONSTIPATION Sertraline HCl 50 mg 01/27/20 10:00 01/27/20 10:25 Zoloft - PO 50 mg DAILY CARLO Administration Intake & Output 01/24/20 01/25/20 01/26/20 01/27/20 23:59 23:59 23:59 23:59 Weight 130 lb Vital Signs - 24 hr 01/26/20 01/26/20 01/27/20 13:13 21:45 02:00 Temperature 97.2 F L 97.9 F Pulse Rate 80 Pulse Rate [ 77 75 Left Radial] Respiratory 16 18 18 Rate Blood Pressure 138/88 Blood Pressure 126/84 117/74 [Left Arm] O2 Sat by Pulse 99 99 100 Oximetry (%) 01/27/20 01/27/20 06:00 08:10 Temperature 97.6 F Pulse Rate 68 Pulse Rate [ 75 Left Radial] Respiratory 16 18 Rate Blood Pressure 124/76 Blood Pressure 119/78 [Left Arm] O2 Sat by Pulse 99 100 Oximetry (%) Breath Alcohol Content Breath Alcohol Content 0 Glucose Results-Entire Visit 01/26/20 01/27/20 01/27/20 14:05 07:57 07:57 Random Glucose 182 mg/dL H mg/dL 381 mg/dL H mg/dL (74-106) (74-106) Hemoglobin A1c % Pending BGM Results Entire Visit 01/26/20 01/27/20 01/27/20 13:43 03:59 08:33 POC Glucometer 182 UNITS UNITS 310 UNITS UNITS 363 UNITS UNITS (80-120) (80-120) (80-120) - History Source History Provided By: Medical Record - Alcohol/Substance Use Hx Alcohol Use: Yes - Past Medical History ...LMP: 11/13/11 ...: No Assessment Plan - Diagnosis (1) Hepatic encephalopathy Status: Acute (2) Alcohol abuse with withdrawal, uncomplicated Status: Acute (3) Diabetes 1.5, managed as type 1 Status: Chronic - Plan Plan: 1. Please document CIWA score Plan 1. For residual signs and symptoms of withdrawal with a CIWA >8, Ativan 1 mg prn q4h x 3 days, then 0.5 mg q4h x 2 d. - Medication Detox Regimen/Protocol: Ativan
[2020-01-27 12:50] VITALS: BMI 20.4
--- NOTE | 2020-01-27 13:36 | EKG ---
Test Reason : Blood Pressure : / mmHG Vent. Rate : 084 BPM Atrial Rate : 084 BPM P-R Int : 190 ms QRS Dur : 114 ms QT Int : 426 ms P-R-T Axes : 069 -40 025 degrees QTc Int : 503 ms NORMAL SINUS RHYTHM POSSIBLE LEFT ATRIAL ENLARGEMENT LEFT AXIS DEVIATION INCOMPLETE RIGHT BUNDLE BRANCH BLOCK PROLONGED QT ABNORMAL ECG WHEN COMPARED WITH ECG OF 30-DEC-2014 00:09, INCOMPLETE RIGHT BUNDLE BRANCH BLOCK IS NOW PRESENT Confirmed by FLORENTIN BEAN MD ([id number]) on 01/27/2020 1:36:13 PM Referred By: Confirmed By:FLORENTIN BEAN MD
--- NOTE | 2020-01-27 13:51 | PN ---
Physical Exam: SUBJECTIVE: Patient seen and examined at bedside. She is arousable to voice, however refuses to answer most questions. Endorses passing one bowel movement over night and states she would like to use restroom again, OBJECTIVE: Vital Signs Period Temp Pulse Resp BP Sys/Parmar Pulse Ox Last 24 Hr 97.4 F-97.9 F 68-91 16-18 117-131/74-100 97-100 Exam limited as patient not compliant with physical exam GENERAL: The patient is sleepy, arousable to voice oriented to person, place, in no acute distress. HEAD: Normocephalic, atraumatic. EYES: PERRL, extraocular movements intact, sclera anicteric. ENT: Oropharynx clear. Dry mucous membranes. NECK: Trachea midline, full range of motion. Supple without lymphadenopathy. LUNGS: Breath sounds equal, clear to auscultation bilaterally. No wheezes, no crackles. No accessory muscle use. HEART: Regular rate and rhythm. S1, S2 without murmur, rub or gallop. ABDOMEN: Soft, nondistended, nontender to light and deep palpation x4 quadrants. No rebound tenderness, no guarding. Normoactive bowel sounds x4 quadrants. No hepatosplenomegaly, no masses appreciated. RECTAL: refused rectal examination EXTREMITIES: 2+ radial, dorsalis pedis pulses bilaterally. Warm, well-perfused. No lower extremity edema bilaterally. NEUROLOGICAL: Cranial nerves II through XII grossly intact. Normal speech. No gross focal deficits. PSYCH: Normal mood, normal affect upon my encounter. SKIN: Warm, dry. Laboratory Results - last 24 hr 01/26/20 01/26/20 01/26/20 13:43 14:05 14:05 WBC 5.8 RBC 3.95 Hgb 11.9 Hct 37.0 MCV 93.6 MCH 30.2 MCHC 32.3 RDW 15.1 Plt Count 176 MPV 10.7 D Absolute Neuts (auto) 4.5 Neutrophils % 77.8 D Lymphocytes % 17.3 D Monocytes % 4.1 Eosinophils % 0.4 D Basophils % 0.4 Nucleated RBC % 0 PT with INR INR PTT (Actin FS) VBG pH POC VBG pCO2 POC VBG pO2 VBG HCO3 VBG O2 Sat (Jeannie) VBG Base Excess Sodium Potassium Chloride Carbon Dioxide Anion Gap BUN Creatinine Est GFR (CKD-EPI)AfAm Est GFR (CKD-EPI)NonAf POC Glucometer 182 Random Glucose Hemoglobin A1c % Calcium Magnesium Total Bilirubin AST ALT Alkaline Phosphatase Ammonia Creatine Kinase Creatine Kinase Index CK-MB (CK-2) Troponin I Total Protein Albumin Vitamin B12 TSH Urine Color Urine Appearance Urine pH Ur Specific [place] Urine Protein Urine Glucose (UA) Urine Ketones Urine Blood Urine Nitrite Urine Bilirubin Urine Urobilinogen Ur Leukocyte Esterase Salicylates < 1.7 L Opiates Screen Methadone Screen Acetaminophen < 2.0 Barbiturate Screen Phencyclidine Screen Ur Amphetamines Screen MDMA (Ecstasy) Screen Benzodiazepines Screen Cocaine Screen U Marijuana (THC) Screen Alcohol, Quantitative Syphilis Serology RPR Titer Blood Type Antibody Screen 01/26/20 01/26/20 01/26/20 14:05 14:05 14:05 WBC RBC Hgb Hct MCV MCH MCHC RDW Plt Count MPV Absolute Neuts (auto) Neutrophils % Lymphocytes % Monocytes % Eosinophils % Basophils % Nucleated RBC % PT with INR 11.20 INR 0.91 PTT (Actin FS) 28.4 VBG pH POC VBG pCO2 POC VBG pO2 VBG HCO3 VBG O2 Sat (Jeannie) VBG Base Excess Sodium 143 Potassium 4.3 Chloride 109 H Carbon Dioxide 30 Anion Gap 4 L BUN 12.8 Creatinine 0.6 Est GFR (CKD-EPI)AfAm 113.22 Est GFR (CKD-EPI)NonAf 97.69 POC Glucometer Random Glucose 182 H Hemoglobin A1c % Calcium 8.8 Magnesium 1.8 Total Bilirubin 0.6 AST 41 H ALT 33 Alkaline Phosphatase 84 Ammonia Creatine Kinase 186 Creatine Kinase Index 1.2 CK-MB (CK-2) 2.4 Troponin I < 0.02 Total Protein 6.9 Albumin 2.7 L Vitamin B12 TSH 0.94 Urine Color Urine Appearance Urine pH Ur Specific [place] Urine Protein Urine Glucose (UA) Urine Ketones Urine Blood Urine Nitrite Urine Bilirubin Urine Urobilinogen Ur Leukocyte Esterase Salicylates Opiates Screen Methadone Screen Acetaminophen Barbiturate Screen Phencyclidine Screen Ur Amphetamines Screen MDMA (Ecstasy) Screen Benzodiazepines Screen Cocaine Screen U Marijuana (THC) Screen Alcohol, Quantitative < 3 Syphilis Serology RPR Titer Blood Type O POSITIVE Antibody Screen Negative 01/26/20 01/26/20 01/26/20 14:05 14:05 15:56 WBC RBC Hgb Hct MCV MCH MCHC RDW Plt Count MPV Absolute Neuts (auto) Neutrophils % Lymphocytes % Monocytes % Eosinophils % Basophils % Nucleated RBC % PT with INR INR PTT (Actin FS) VBG pH 7.383 POC VBG pCO2 45.1 POC VBG pO2 30.1 VBG HCO3 26.3 VBG O2 Sat (Jeannie) 56.0 L VBG Base Excess 1.0 Sodium Potassium Chloride Carbon Dioxide Anion Gap BUN Creatinine Est GFR (CKD-EPI)AfAm Est GFR (CKD-EPI)NonAf POC Glucometer Random Glucose Hemoglobin A1c % Calcium Magnesium Total Bilirubin AST ALT Alkaline Phosphatase Ammonia 103.30 H Creatine Kinase Creatine Kinase Index CK-MB (CK-2) Troponin I Total Protein Albumin Vitamin B12 TSH Urine Color Yellow Urine Appearance Clear Urine pH 7.5 D Ur Specific [place] 1.010 Urine Protein Negative Urine Glucose (UA) Trace Urine Ketones Negative Urine Blood Negative Urine Nitrite Negative Urine Bilirubin Negative Urine Urobilinogen 0.2 Ur Leukocyte Esterase Negative Salicylates Opiates Screen Methadone Screen Acetaminophen Barbiturate Screen Phencyclidine Screen Ur Amphetamines Screen MDMA (Ecstasy) Screen Benzodiazepines Screen Cocaine Screen U Marijuana (THC) Screen Alcohol, Quantitative Syphilis Serology RPR Titer Blood Type Antibody Screen 01/26/20 01/27/20 01/27/20 15:56 03:59 06:40 WBC 3.3 L RBC 3.52 L Hgb 10.5 L Hct 33.4 MCV 95.1 MCH 29.9 MCHC 31.5 L RDW 15.3 Plt Count 143 MPV 11.1 Absolute Neuts (auto) 1.3 L Neutrophils % 37.9 L D Lymphocytes % 44.8 H D Monocytes % 11.5 H D Eosinophils % 4.8 H D Basophils % 1.0 Nucleated RBC % 0 PT with INR INR PTT (Actin FS) VBG pH POC VBG pCO2 POC VBG pO2 VBG HCO3 VBG O2 Sat (Jeannie) VBG Base Excess Sodium Potassium Chloride Carbon Dioxide Anion Gap BUN Creatinine Est GFR (CKD-EPI)AfAm Est GFR (CKD-EPI)NonAf POC Glucometer 310 Random Glucose Hemoglobin A1c % Calcium Magnesium Total Bilirubin AST ALT Alkaline Phosphatase Ammonia Creatine Kinase Creatine Kinase Index CK-MB (CK-2) Troponin I Total Protein Albumin Vitamin B12 TSH Urine Color Urine Appearance Urine pH Ur Specific [place] Urine Protein Urine Glucose (UA) Urine Ketones Urine Blood Urine Nitrite Urine Bilirubin Urine Urobilinogen Ur Leukocyte Esterase Salicylates Opiates Screen Negative Methadone Screen Negative Acetaminophen Barbiturate Screen Negative Phencyclidine Screen Negative Ur Amphetamines Screen Negative MDMA (Ecstasy) Screen Negative Benzodiazepines Screen Negative Cocaine Screen Positive A* U Marijuana (THC) Screen Negative Alcohol, Quantitative Syphilis Serology RPR Titer Blood Type Antibody Screen 01/27/20 01/27/20 01/27/20 07:57 07:57 07:57 WBC RBC Hgb Hct MCV MCH MCHC RDW Plt Count MPV Absolute Neuts (auto) Neutrophils % Lymphocytes % Monocytes % Eosinophils % Basophils % Nucleated RBC % PT with INR INR PTT (Actin FS) VBG pH POC VBG pCO2 POC VBG pO2 VBG HCO3 VBG O2 Sat (Jeannie) VBG Base Excess Sodium 144 Potassium 4.0 Chloride 112 H Carbon Dioxide 28 Anion Gap 4 L BUN 15.0 Creatinine 0.6 Est GFR (CKD-EPI)AfAm 113.22 Est GFR (CKD-EPI)NonAf 97.69 POC Glucometer Random Glucose 381 H Hemoglobin A1c % 9.8 H Calcium 8.2 L Magnesium Total Bilirubin 0.9 AST 38 H ALT 27 Alkaline Phosphatase 71 Ammonia Creatine Kinase Creatine Kinase Index CK-MB (CK-2) Troponin I Total Protein 5.7 L Albumin 2.2 L Vitamin B12 1594 H TSH Urine Color Urine Appearance Urine pH Ur Specific [place] Urine Protein Urine Glucose (UA) Urine Ketones Urine Blood Urine Nitrite Urine Bilirubin Urine Urobilinogen Ur Leukocyte Esterase Salicylates Opiates Screen Methadone Screen Acetaminophen Barbiturate Screen Phencyclidine Screen Ur Amphetamines Screen MDMA (Ecstasy) Screen Benzodiazepines Screen Cocaine Screen U Marijuana (THC) Screen Alcohol, Quantitative Syphilis Serology Reactive A* RPR Titer Blood Type Antibody Screen 01/27/20 01/27/20 07:57 08:33 WBC RBC Hgb Hct MCV MCH MCHC RDW Plt Count MPV Absolute Neuts (auto) Neutrophils % Lymphocytes % Monocytes % Eosinophils % Basophils % Nucleated RBC % PT with INR INR PTT (Actin FS) VBG pH POC VBG pCO2 POC VBG pO2 VBG HCO3 VBG O2 Sat (Jeannie) VBG Base Excess Sodium Potassium Chloride Carbon Dioxide Anion Gap BUN Creatinine Est GFR (CKD-EPI)AfAm Est GFR (CKD-EPI)NonAf POC Glucometer 363 Random Glucose Hemoglobin A1c % Calcium Magnesium Total Bilirubin AST ALT Alkaline Phosphatase Ammonia Creatine Kinase Creatine Kinase Index CK-MB (CK-2) Troponin I Total Protein Albumin Vitamin B12 TSH Urine Color Urine Appearance Urine pH Ur Specific [place] Urine Protein Urine Glucose (UA) Urine Ketones Urine Blood Urine Nitrite Urine Bilirubin Urine Urobilinogen Ur Leukocyte Esterase Salicylates Opiates Screen Methadone Screen Acetaminophen Barbiturate Screen Phencyclidine Screen Ur Amphetamines Screen MDMA (Ecstasy) Screen Benzodiazepines Screen Cocaine Screen U Marijuana (THC) Screen Alcohol, Quantitative Syphilis Serology RPR Titer Reactive 1:1 H Blood Type Antibody Screen Active Medications Generic Name Dose Route Start Last Admin Trade Name Freq PRN Reason Stop Dose Admin Aripiprazole 10 mg 01/27/20 10:00 01/27/20 10:25 Abilify PO 10 mg DAILY CARLO Administration Lactulose 20 gm 01/27/20 07:12 Cephulac (Oral Use) PO TID PRN CONSTIPATION Lorazepam 1 mg 01/27/20 12:13 Ativan - PO 01/30/20 12:12 TID PRN WITHDRAWAL(CONT SUBST) Sertraline HCl 50 mg 01/27/20 10:00 01/27/20 10:25 Zoloft - PO 50 mg DAILY CARLO Administration ASSESSMENT/PLAN: Patient is a 60 year old female with history of polysubstance use disorder (alcohol, crack cocaine) cirrhosis, bipolar depression, hypertension presented from [facility] due to increased lethargy, and an unwitnessed fall. Admitted for hepatic encephalopathy. Toxic metabolic encephalopathy, secondary to hepatic encephalopathy, alcohol withdrawal -Ammonia 103 on admission, given history of alcohol use disorder and cirrhosis, likely hepatic encephalopathy. -CT head negative for acute pathology. Marked chronic ischemic changes noted. -CT cervical spine, chronic fracture, lymphadenopathy noted. Will require outpatient follow up. -WBC without acute elevation, afebrile. Negative nuchal rigidity. Less likely infectious etiology. -Lactulose 20grams TID. Titrate for at least three soft bowel movements daily -Initiate Rifaximin -Counselled regarding importance of complete alcohol abstinence -CIWA currently 2, consider Ativan if greater than 6. -Detox consult (Dr. Rodriguez) -Fall risk precautions Alcoholic cirrhosis -Right upper quadrant ultrasound reveals dilation of CBD and pancreatic duct. Will need to rule out obstruction. -Ordered MRCP STAT -Consult Gastroenterology (Dr. Harris) appreciated Normocytic anemia -Hgb 10/5/ Hct 33.4 MCV 95 -Suspect component of myelodysplasia given history of excess alcohol consumption. -She is unsure if she had prior colonoscopy -Refuses rectal exam. Ordered fecal occult blood for next bowel movement. -Obtain iron studies, b12, folate Bipolar depression -Continue home aripiprazole, sertraline Diabetes mellitus -Insulin sliding scale ACHS -Fingerstick blood glucose monitoring ACHS -Levemir 10 units HS -Endocrinology consult (Dr. Stanton) FEN -IV lactated ringer's at 75mL/ hour -Follow BMP -NPO Disposition -Continue care in medical- surgical floor Visit type - Emergency Visit Emergency Visit: Yes ED Registration Date: 01/26/20 Care time: The patient presented to the Emergency Department on the above date and was hospitalized for further evaluation of their emergent condition. - New Patient This patient is new to me today: Yes Date on this admission: 01/27/20 - Critical Care Critical Care patient: No - Discharge Referral Referred to [facility] No ATTENDING PHYSICIAN STATEMENT I saw and evaluated the patient. I reviewed the resident's note and discussed the case with the resident. I agree with the resident's findings and plan as documented. SUBJECTIVE: OBJECTIVE: ASSESSMENT AND PLAN:
--- NOTE | 2020-01-27 14:41 | CON.GI ---
Consult Consult Specialty:: GI Reason for Consultation:: Dilated CBD and pancreatic duct - History of Present Illness Chief Complaint: Altered mental status History of Present Illness: 60F w/ h/o cocaine abuse. Was at [facility] for rehab. Altered mental status, improved with lactulose. Called to evaluate dilated CBD. Has had a dilated CBD from at least 2012. She is S/P cholecystectomy. Did have CBD stone noted on previous ultrasound images. She does not recall ever having had an ERCP. She is followed by machine operator farmworker Dr. Mariano Vila in [place]. She last saw him 2 months ago. No abdominal pain. Has never had colonoscopy. No family history of gastric cancer. Liver chemistries without obstructive pattern. - History Source History Provided By: Patient, Medical Record - Past Medical History Hepatobiliary: Yes: Cirrhosis ...LMP: 11/13/11 ...: No Endocrine: Yes: Diabetes Mellitus (DM II) - Past Surgical History Past Surgical History: Yes: Cholecystectomy (Open) - Alcohol/Substance Use Hx Alcohol Use: Yes History of Substance Use: reports: Cocaine - Smoking History Smoking history: Former smoker Have you smoked in the past 12 months: No Aproximately how many cigarettes per day: 1 - Social History Place of : [facility] Home Medications - Allergies Allergies/Adverse Reactions: Allergies Allergy/AdvReac Type Severity Reaction Status Date / Time No Known Allergies Allergy Verified 01/26/20 16:54 - Home Medications Home Medications: Ambulatory Orders Aripiprazole 10 mg PO HS 01/25/20 Insulin Glargine,Hum.rec.anlog [Lantus Solostar PEN -] 25 units SQ HS 01/25/20 Insulin Lispro [Humalog] 6 unit SQ TIDCM 01/25/20 Lisinopril [Zestril] 2.5 mg PO DAILY 01/25/20 Mirtazapine [Remeron -] 15 mg PO HS 01/25/20 Sertraline HCl [Zoloft -] 50 mg PO DAILY 01/25/20 Family Medical History Other Family History: No family history of GI cancer Review of Systems - Review of Systems Constitutional: denies: Chills, Unintentional Wgt. Loss Cardiovascular: denies: Chest Pain Respiratory: denies: Cough Gastrointestinal: denies: Abdominal Pain, Melena Physical Exam-GI Vital Signs: Vital Signs Temperature 97.4 F L 01/27/20 09:30 Pulse Rate 91 H 01/27/20 09:30 Respiratory Rate 18 01/27/20 09:30 Blood Pressure 131/100 01/27/20 09:30 O2 Sat by Pulse Oximetry (%) 97 01/27/20 09:30 Constitutional: Yes: Calm Eyes: No: Sclera Icterus Cardiovascular: Yes: Regular Rate and Rhythm. No: Murmur Respiratory: Yes: CTA Bilaterally Gastrointestinal Inspection: No: Distention ...Auscultate: Yes: Normoactive Bowel Sounds ...Palpate: Yes: Soft ...Percussion: No: Tympanitic Neurological: Yes: Alert, Oriented. No: Asterixis Labs: CBC, BMP 01/27/20 06:40 01/27/20 07:57 INR, PTT INR 0.91 (0.83-1.09) 01/26/20 14:05 Hepatic Panel Total Bilirubin 0.9 mg/dL (0.2-1) 01/27/20 07:57 AST 38 U/L (15-37) H 01/27/20 07:57 ALT 27 U/L (13-61) 01/27/20 07:57 Alkaline Phosphatase 71 U/L (45-117) 01/27/20 07:57 Albumin 2.2 g/dl (3.4-5.0) L 01/27/20 07:57 Imaging - Results Ultrasound: Report Reviewed Problem List - Problems (1) Common bile duct dilatation Assessment/Plan: Asymptomatic chronic dilation with choledocholithiasis noted on prior studies. Unclear if worked up as an outpatient. The Stone was described as 1.5cm in size on prior US. Advise: MRCP If evidence of choledocholithiasis or ampullary mass lesion , transfer to [facility] for EUS/ERCP evaluation as lithotripsy may need to be used as a modality for stone extraction. Advised the need for complete alcohol cessation Cocaine cessation Obtain information from her PMD as to whether this has been addressed as outpatient as Ms. Childress is a poor historian Code(s): K83.8 - OTHER SPECIFIED DISEASES OF BILIARY TRACT
[2020-01-27] MEDS: LACTATED RINGERS SOLUTION 1,000 ML/1,000 ML INFUS.BAG IV SCH (16:29)
[2020-01-27] MEDS: INSULIN SLIDING SCALE (NOVOLOG) 1 VIAL SQ SCH (16:47)
[2020-01-27] MEDS: RIFAXIMIN 200 MG TABLET PO SCH ×2 (17:48→22:17)
[2020-01-27] MEDS ORDERED: INSULIN (NOVOLOG) ASPART 100 UNITS/ML 10ML VIAL SQ ONE (18:31)
[2020-01-27 20:49] LABS: BLOOD UREA NITROGEN 13.9 mg/dL (7-18); CALCIUM 8.5 mg/dL (8.5-10.1); POTASSIUM 4.1 mmol/L (3.5-5.1)
[2020-01-27] MEDS: INSULIN (LEVEMIR) 100 UNITS/ML UNITS SQ SCH (22:17)
[2020-01-27] MEDS ORDERED: MELATONIN 5 MG TABLETS PO ONE (22:46)
[2020-01-27] MEDS: LORazepam 1 MG TABLET PO PRN (23:42)
[2020-01-28] MEDS: LACTATED RINGERS SOLUTION 1,000 ML/1,000 ML INFUS.BAG IV SCH ×2 (06:37→19:43)
[2020-01-28] MEDS: INSULIN SLIDING SCALE (NOVOLOG) 1 VIAL SQ SCH ×3 (06:57→16:40)
[2020-01-28] MEDS: RIFAXIMIN 200 MG TABLET PO SCH ×3 (06:57→22:37)
[2020-01-28] MEDS ORDERED: DEXTROSE 50%-WATER - 25 GM/50 ML VIAL IVPUSH ONE (06:58)
[2020-01-28] MEDS ORDERED: DEXTROSE 50%-WATER 25 GM/50 ML DISP.SYRIN ONE (07:03)
[2020-01-28 09:20] LABS: HEMATOCRIT 32.8 % (32.4-45.2); HEMOGLOBIN 10.7 GM/dL (10.7-15.3); MCH 30.7 pg (25.7-33.7); MCHC 32.7 g/dl (32.0-36.0); MEAN CELL VOLUME 93.9 fl (80-96); MEAN PLT VOLUME 10.1 fl (7.5-11.1); PLATELET COUNT 173 K/MM3 (134-434); RBC 3.49 M/mm3 (3.60-5.2); RDW 14.6 % (11.6-15.6); WHITE BLOOD COUNT 2.4 K/mm3 (4.0-10.0)
--- NOTE | 2020-01-28 09:49 | PN ---
Teaching Attending Note Name of Resident: Calvin Arshad ATTENDING PHYSICIAN STATEMENT I saw and evaluated the patient. I reviewed the resident's note and discussed the case with the resident. I agree with the resident's findings and plan as documented. SUBJECTIVE: Patient tired this morning wants real food not liquid diet OBJECTIVE: Vital Signs Period Temp Pulse Resp BP Sys/Parmar Pulse Ox Last 24 Hr 97.4 F-97.9 F 64-81 18-20 124-147/77-97 96-100 Please see resident note for Physical exam Patient examined during bedside rounds ASSESSMENT AND PLAN: 60 y/o F with Hx of Polysubstance abuse, ETOH cirrohsis (no longer actively drinking), Bipolar disorder, HTN, HLD, who presents from [facility] with altered mental status Altered Mental status in setting of hepatic encephalopathy Improved Patient still with day/night reversal Continue Lactulose, Rifaxamin advance diet f.u MRCP Psych Disorder Continue Abilify, Sertraline Neutropenia Check HIV monitor for infection IDDM Cont Levemir ISS, FSG Positive Syphilis Check with ROLLY if patient has been previously treated Start DVT ppx with
[2020-01-28 09:55] LABS: ALBUMIN 2.4 g/dl (3.4-5.0); BILIRUBIN,TOTAL 0.7 mg/dL (0.2-1); BLOOD UREA NITROGEN 9.4 mg/dL (7-18); CALCIUM 8.7 mg/dL (8.5-10.1); CREATININE 0.6 mg/dL (0.55-1.3); MAGNESIUM 1.6 mg/dL (1.8-2.4); PHOSPHOROUS 3.9 mg/dL (2.5-4.9); POTASSIUM 4.3 mmol/L (3.5-5.1); TOT PROT 6.1 g/dl (6.4-8.2)
[2020-01-28] MEDS: SERTRALINE HCL 50 MG TABLET (FP) PO SCH (10:14)
[2020-01-28] MEDS: ARIPiprazole 10 MG TABLET PO SCH (10:14)
--- NOTE | 2020-01-28 12:23 | CON.ID ---
Consult Consult Specialty:: infectious diseases Referred by:: hospitalist Reason for Consultation:: ams,dialted cbd - History of Present Illness Chief Complaint: ams History of Present Illness: does not want to talk much 60 F h/o PSA w/ Etoh/crack/cocaine/active smoker, h/o liver cirrhosis, bipolar depression, HTN, HLD, T2DM, presents w/ AMS from [facility]. Patient received PO Lactulose after large non-bloody BM, MS improved and patient started holding conversations but still tired appearing. Has had a dilated CBD from at least 2012. She is S/P cholecystectomy. Did have CBD stone noted on previous ultrasound images. She does not recall ever having had an ERCP. patient she is feeling better now - History Source History Provided By: Patient, Medical Record Limitations to Obtaining History: Uncooperative - Past Medical History Hepatobiliary: Yes: Cirrhosis ...LMP: 11/13/11 ...: No Endocrine: Yes: Diabetes Mellitus (DM II) - Past Surgical History Past Surgical History: Yes: Cholecystectomy (Open) - Alcohol/Substance Use Hx Alcohol Use: Yes History of Substance Use: reports: Cocaine - Smoking History Smoking history: Former smoker Have you smoked in the past 12 months: No Aproximately how many cigarettes per day: 1 Home Medications - Allergies Allergies/Adverse Reactions: Allergies Allergy/AdvReac Type Severity Reaction Status Date / Time No Known Allergies Allergy Verified 01/26/20 16:54 - Home Medications Home Medications: Ambulatory Orders Aripiprazole 10 mg PO HS 01/25/20 Insulin Glargine,Hum.rec.anlog [Lantus Solostar PEN -] 25 units SQ HS 01/25/20 Insulin Lispro [Humalog] 6 unit SQ TIDCM 01/25/20 Lisinopril [Zestril] 2.5 mg PO DAILY 01/25/20 Mirtazapine [Remeron -] 15 mg PO HS 01/25/20 Sertraline HCl [Zoloft -] 50 mg PO DAILY 01/25/20 Family Medical History Other Family History: No family history of GI cancer Review of Systems - Review of Systems Constitutional: reports: No Symptoms Eyes: reports: No Symptoms HENT: reports: No Symptoms Neck: reports: No Symptoms Cardiovascular: reports: No Symptoms Respiratory: reports: No Symptoms Gastrointestinal: reports: No Symptoms Genitourinary: reports: No Symptoms Musculoskeletal: reports: No Symptoms Integumentary: reports: No Symptoms Neurological: reports: No Symptoms Endocrine: reports: No Symptoms Hematology/Lymphatic: reports: No Symptoms Psychiatric: reports: No Symptoms Physical Exam Vital Signs: Vital Signs Temperature 97.8 F 01/28/20 10:00 Pulse Rate 64 01/28/20 10:00 Respiratory Rate 18 01/28/20 10:00 Blood Pressure 140/80 01/28/20 10:00 O2 Sat by Pulse Oximetry (%) 100 01/28/20 10:00 Constitutional: Yes: No Distress, Calm Eyes: Yes: Conjunctiva Clear HENT: Yes: Atraumatic, Normocephalic Neck: Yes: Supple, Trachea Midline Cardiovascular: Yes: Regular Rate and Rhythm Respiratory: Yes: Regular, CTA Bilaterally Gastrointestinal: Yes: Normal Bowel Sounds, Soft Musculoskeletal: Yes: WNL Extremities: Yes: Other Neurological: Yes: Alert Psychiatric: Yes: Alert Labs: CBC, BMP 01/28/20 09:02 01/28/20 09:02 Imaging - Results Chest X-ray: Report Reviewed, Image Reviewed Cat Scan: Report Reviewed, Image Reviewed Assessment/Plan this patint with multiple medical isues with old cbd dilatation and also drug abuse having urine positive but asymptomatic will not start any abx at this moment continue to monitor rest as per the team
[2020-01-28] MEDS ORDERED: PT OWN MED DRAWER 7, Y5N ONE ×2 (12:25→22:01)
[2020-01-28] MEDS: ENOXAPARIN NA (PORCINE) 40 MG/0.4 ML DISP.SYRIN SQ SCH (15:48)
--- NOTE | 2020-01-28 16:36 | PN ---
Physical Exam: SUBJECTIVE: Patient seen and examined at bedside this AM. Lethargic, falls asleep during interview. Pulse ox 97%. OBJECTIVE: Vital Signs Period Temp Pulse Resp BP Sys/Parmar Pulse Ox Last 24 Hr 97.4 F-98.3 F 64-75 18-20 122-147/65-97 97-100 GENERAL: AAOx3, Somnolent HEAD: Normal with no signs of trauma. EYES: EOMI Sclera Clear LUNGS: CTAB. HEART: RRR S1S2 ABDOMEN: No ascites appreciated. No fluid wave/caput medusa. Soft nondistended/nontender EXTREMITIES: no CCE NEUROLOGICAL: Cranial nerves II through XII grossly intact. Laboratory Results - last 24 hr 01/26/20 01/27/20 01/27/20 18:36 10:05 16:34 WBC RBC Hgb Hct MCV MCH MCHC RDW Plt Count MPV Sodium Potassium Chloride Carbon Dioxide Anion Gap BUN Creatinine Est GFR (CKD-EPI)AfAm Est GFR (CKD-EPI)NonAf POC Glucometer > 600 Random Glucose Calcium Phosphorus Magnesium Total Bilirubin AST ALT Alkaline Phosphatase Total Protein Albumin COVID-19 ([facility]) Not detected Hep A IgM Ab Confirm Negative Hep Bs Antigen Negative Hep B Core IgM Ab Negative Hepatitis C Ab (EIA) <0.1 01/27/20 01/27/20 01/27/20 18:25 18:28 22:10 WBC RBC Hgb Hct MCV MCH MCHC RDW Plt Count MPV Sodium 139 Potassium 4.1 Chloride 104 Carbon Dioxide 25 Anion Gap 9 BUN 13.9 Creatinine 1.0 Est GFR (CKD-EPI)AfAm 69.92 Est GFR (CKD-EPI)NonAf 60.33 POC Glucometer 528 260 Random Glucose 548 H* Calcium 8.5 Phosphorus Magnesium Total Bilirubin AST ALT Alkaline Phosphatase Total Protein Albumin COVID-19 ([facility]) Hep A IgM Ab Confirm Hep Bs Antigen Hep B Core IgM Ab Hepatitis C Ab (EIA) 01/28/20 01/28/20 01/28/20 01:33 06:52 06:56 WBC RBC Hgb Hct MCV MCH MCHC RDW Plt Count MPV Sodium Potassium Chloride Carbon Dioxide Anion Gap BUN Creatinine Est GFR (CKD-EPI)AfAm Est GFR (CKD-EPI)NonAf POC Glucometer 211 43 51 Random Glucose Calcium Phosphorus Magnesium Total Bilirubin AST ALT Alkaline Phosphatase Total Protein Albumin COVID-19 ([facility]) Hep A IgM Ab Confirm Hep Bs Antigen Hep B Core IgM Ab Hepatitis C Ab (EIA) 01/28/20 01/28/20 09:02 09:02 WBC 2.4 L RBC 3.49 L Hgb 10.7 Hct 32.8 MCV 93.9 MCH 30.7 MCHC 32.7 RDW 14.6 Plt Count 173 D MPV 10.1 Sodium 142 Potassium 4.3 Chloride 106 Carbon Dioxide 32 Anion Gap 4 L BUN 9.4 Creatinine 0.6 Est GFR (CKD-EPI)AfAm 113.22 Est GFR (CKD-EPI)NonAf 97.69 POC Glucometer Random Glucose 232 H Calcium 8.7 Phosphorus 3.9 Magnesium 1.6 L Total Bilirubin 0.7 AST 39 H ALT 29 Alkaline Phosphatase 72 Total Protein 6.1 L Albumin 2.4 L COVID-19 ([facility]) Hep A IgM Ab Confirm Hep Bs Antigen Hep B Core IgM Ab Hepatitis C Ab (EIA) Active Medications Generic Name Dose Route Start Last Admin Trade Name Freq PRN Reason Stop Dose Admin Aripiprazole 10 mg 01/27/20 10:00 01/28/20 10:14 Abilify PO 10 mg DAILY CARLO Administration Enoxaparin Sodium 40 mg 01/28/20 14:00 01/28/20 15:48 Lovenox - SQ Not Given DAILY [facility] Lactated Ringer's 1,000 ml in 1,000 mls @ 75 mls/hr 01/27/20 15:15 01/28/20 06:37 Lactated Ringers Solution IV 75 mls/hr ASDIR CARLO Administration Insulin Aspart 1 vial 01/27/20 16:30 01/28/20 11:23 Novolog Vial Sliding Scale - SQ 2 unit TIDAC [facility] Administration Protocol Insulin Detemir 10 units 01/27/20 22:00 01/27/20 22:17 Levemir Vial SQ 10 units HS CARLO Administration Lactulose 20 gm 01/27/20 07:12 Cephulac (Oral Use) PO TID PRN CONSTIPATION Lorazepam 1 mg 01/27/20 12:13 Ativan - PO 01/30/20 12:12 TID PRN WITHDRAWAL(CONT SUBST) Rifaximin 200 mg 01/27/20 15:15 01/28/20 13:50 Xifaxan - PO 200 mg TID CARLO Administration Sertraline HCl 50 mg 01/27/20 10:00 01/28/20 10:14 Zoloft - PO 50 mg DAILY CARLO Administration ASSESSMENT/PLAN: 60 y/o F with Hx of Polysubstance abuse, ETOH cirrohsis (no longer actively drinking), Bipolar disorder, HTN, HLD, who presents from [facility] with altered mental status #Altered Mental status in setting of hepatic encephalopathy -Ammonia 103 on admission -Continue Lactulose, Rifaxamin. Titrate lactulose to attain 3-4 Bowel Movements within a 24 her period. -advance diet as tolerated -MRCP -----> Significantly dilated CBD 1.8 cm with intrahepatic billiary ductal dilation. Intrahepatic bile ducts in central aspect of liver with peripheral dilation of bile ducts. May be 2/[address] with Contrast or MRI. #Bipolar/Depression -Continue Abilify, Sertraline #Alcohol use disorder -Was at [facility] for Detox. Transferred to [facility] due to AMS and hypoglycemia. -For residual signs and symptoms of withdrawal with a CIWA >8, Ativan 1 mg prn q4h x 3 days, then 0.5 mg q4h x 2 d. #Neutropenia -Patient states she recently had a negative HIV test at [facility] and is not interested in being tested again for HIV. -Repeat CBC in am. #IDDM -Cont Levemir -ISS, FSG Positive Syphilis -Check with [facility] if patient has been previously treated DVT ppx; -Lovenox 40 Daily Visit type - Emergency Visit Emergency Visit: Yes ED Registration Date: 01/26/20 Care time: The patient presented to the Emergency Department on the above date and was hospitalized for further evaluation of their emergent condition. - New Patient This patient is new to me today: No - Critical Care Critical Care patient: No - Discharge Referral Referred to [facility] Med P.C.: No ATTENDING PHYSICIAN STATEMENT I saw and evaluated the patient. I reviewed the resident's note and discussed the case with the resident. I agree with the resident's findings and plan as documented. SUBJECTIVE: OBJECTIVE: ASSESSMENT AND PLAN:
[2020-01-28] MEDS: LORazepam 1 MG TABLET PO PRN (22:36)
[2020-01-28] MEDS: INSULIN (LEVEMIR) 100 UNITS/ML UNITS SQ SCH (22:43)
[2020-01-29] MEDS ORDERED: PT OWN MED DRAWER 7, Y5N ONE ×2 (05:35→21:02)
[2020-01-29] MEDS: RIFAXIMIN 200 MG TABLET PO SCH ×3 (06:14→21:26)
[2020-01-29] MEDS: INSULIN SLIDING SCALE (NOVOLOG) 1 VIAL SQ SCH ×3 (06:14→17:37)
--- NOTE | 2020-01-29 07:36 | PN.GI ---
GI Progress Note Subjective: no new complaints - sitting up eating - Objective Vital Signs: Vital Signs Temperature 99.2 F 01/29/20 06:00 Pulse Rate 67 01/29/20 06:00 Respiratory Rate 18 01/29/20 06:00 Blood Pressure 144/90 01/29/20 06:00 O2 Sat by Pulse Oximetry (%) 99 01/29/20 06:00 Constitutional: Well Nourished, No Distress Eyes: Yes: WNL Cardiovascular: Yes: WNL, Regular Rate and Rhythm Respiratory: Yes: WNL, Regular, CTA Bilaterally Gastrointestinal Inspection: Yes: WNL ...Auscultate: Yes: Normoactive Bowel Sounds Extremities: Yes: WNL Neurological: Yes: WNL, Other (aao x3) Labs: CBC, BMP 01/28/20 09:02 01/28/20 21:15 INR, PTT INR 0.91 (0.83-1.09) 01/26/20 14:05 Problem List - Problems (1) Altered mental status Assessment/Plan: c/w rifaximin - dose 550 mg po bid c/w with standing dose of lactulose - for PSE etoh abstinence low sodium diet mrcp reviewed -- ct scan abd ordered by primary team -- will f/u results. Depending on these results pt may need transfer to a tertiary care center for further care with EUS/ ERCP will f/u Code(s): R41.82 - ALTERED MENTAL STATUS, UNSPECIFIED (2) Common bile duct dilatation Code(s): K83.8 - OTHER SPECIFIED DISEASES OF BILIARY TRACT (3) Hepatic encephalopathy Code(s): K72.90 - HEPATIC FAILURE, UNSPECIFIED WITHOUT COMA (4) Alcohol dependence Code(s): F10.20 - ALCOHOL DEPENDENCE, UNCOMPLICATED (5) Alcohol abuse with withdrawal, uncomplicated Code(s): F10.130 - ALCOHOL ABUSE WITH WITHDRAWAL, UNCOMPLICATED (6) Anemia Code(s): D64.9 - ANEMIA, UNSPECIFIED
[2020-01-29 07:49] LABS: HEMATOCRIT 30.4 % (32.4-45.2); HEMOGLOBIN 10.3 GM/dL (10.7-15.3); MCH 31.4 pg (25.7-33.7); MEAN CELL VOLUME 92.4 fl (80-96); MEAN PLT VOLUME 9.8 fl (7.5-11.1); PLATELET COUNT 172 K/MM3 (134-434); RBC 3.29 M/mm3 (3.60-5.2); RDW 14.5 % (11.6-15.6)
[2020-01-29 08:09] LABS: POTASSIUM 3.2 mmol/L (3.5-5.1)
[2020-01-29 08:12] LABS: CALCIUM 8.5 mg/dL (8.5-10.1)
[2020-01-29 08:13] LABS: ALBUMIN 2.1 g/dl (3.4-5.0); BLOOD UREA NITROGEN 11.3 mg/dL (7-18); MAGNESIUM 1.7 mg/dL (1.8-2.4)
[2020-01-29 08:16] LABS: CREATININE 0.6 mg/dL (0.55-1.3); PHOSPHOROUS 3.4 mg/dL (2.5-4.9)
[2020-01-29 08:17] LABS: BILIRUBIN,TOTAL 0.8 mg/dL (0.2-1)
[2020-01-29 08:18] LABS: TOT PROT 5.7 g/dl (6.4-8.2)
[2020-01-29] MEDS ORDERED: INSULIN (LEVEMIR) 100 UNITS/ML UNITS SQ SCH (08:30)
[2020-01-29] MEDS: ENOXAPARIN NA (PORCINE) 40 MG/0.4 ML DISP.SYRIN SQ SCH (10:47)
[2020-01-29] MEDS: ARIPiprazole 10 MG TABLET PO SCH ×2 (10:47→10:52)
[2020-01-29] MEDS: SERTRALINE HCL 50 MG TABLET (FP) PO SCH (10:47)
[2020-01-29] MEDS ORDERED: Insulin (LOG) Aspart 100 UNITS/ML VIAL SQ SCH (11:00)
[2020-01-29] MEDS ORDERED: MAGNESIUM SULF 50% (8.12 MEQ/2 ML-1 GM VIAL) IVPB ONE (11:18)
[2020-01-29] MEDS ORDERED: POTASSIUM CHLORIDE ORAL LIQUID 20 MEQ/15 ML PO ONE (11:19)
--- NOTE | 2020-01-29 11:21 | PN ---
Progress Note (short form) - Note Progress Note: SUBJECTIVE: Seen and examined at bedside. Patient is very lethargic, falling asleep during interview. Noted that lactulose was ordered as "as needed" and has not been given the last 2 days. Patient has not had any bowel movements. Lactulose switched to standing 3 times daily and repeat ammonia level ordered. Pending CT abdomen pelvis OBJECTIVE PE: GEN: NAD HEENT: NC/AT PEARLL RESP: CTAB CARDS: RRR, -MRG ABD: soft, nt/nd +BS EXT: No swelling/Edema Neuro: Non-focal, A&OX3 Labs/Imaging: reviewed ASSESSMENT/PLAN 60-year-old female with history of polysubstance abuse, EtOH cirrhosis, bipolar disorder, HTN, HLD presents from [facility] with altered mental status secondary to hepatic encephalopathy. #Hepatic encephalopathy Lactulose was ordered as as needed and was not given after admission. Has had no bowel movements. Lactulose 3 times daily, goal 3-4 bowel movements daily Continue rifaximin Recheck ammonia level #Dilated common bile duct GI on board: Appreciate recommendation MRCP without contrast shows dilated common bile ducts up to 1.8 cm with intrahepatic biliary ductal dilatation coupled by large amounts of biliary air. Also concern for confluent area of nonvisualized intrahepatic bile ducts in the central aspect of the liver with peripheral dilatation of the bile ducts. Underlying lesion narrowing the ducts or intrahepatic biliary ductal strictures, benign or malignant cannot be excluded Pending CT abdomen pelvis with contrast for evaluation of strictures Neutropenia: resolved #Diabetes melitis with hyperglycemia -titrate up insulin as MS improves -cont levemir, ISS -aspart 4U TIDAC #Positive syphilis -will check with [facility] if pt has been previously treated Visit type - Emergency Visit Emergency Visit: Yes ED Registration Date: 01/26/20 Care time: The patient presented to the Emergency Department on the above date and was hospitalized for further evaluation of their emergent condition. - New Patient This patient is new to me today: Yes Date on this admission: 01/29/20 - Critical Care Critical Care patient: No
[2020-01-29 11:54] LABS: BILIRUBIN,DIRECT 0.2 mg/dL (0.0-0.2)
[2020-01-29] MEDS ORDERED: DEXTROSE 50%-WATER - 25 GM/50 ML VIAL IVPUSH ONE (12:23)
[2020-01-29] MEDS: INSULIN (NOVOLOG) ASPART 100 UNITS/ML 10ML VIAL SQ SCH ×2 (12:44→17:36)
--- NOTE | 2020-01-29 12:55 | PN ---
Progress Note, Physician History of Present Illness: does not want to talk much 60 F h/o PSA w/ Etoh/crack/cocaine/active smoker, h/o liver cirrhosis, bipolar depression, HTN, HLD, T2DM, presents w/ AMS from [facility]. Patient received PO Lactulose after large non-bloody BM, MS improved and patient started holding conversations but still tired appearing. Has had a dilated CBD from at least 2012. She is S/P cholecystectomy. Did have CBD stone noted on previous ultrasound images. She does not recall ever having had an ERCP. patient she is feeling better now - Current Medication List Current Medications: Active Medications Aripiprazole (Abilify) 10 mg PO DAILY [facility] Last Admin: 01/29/20 10:52 Dose: 10 mg Documented by: Enoxaparin Sodium (Lovenox -) 40 mg SQ DAILY [facility] Last Admin: 01/29/20 10:47 Dose: 40 mg Documented by: Lactated Ringer's (Lactated Ringers Solution) 1,000 ml in 1,000 mls @ 75 mls/hr IV ASDIR [facility] Last Admin: 01/28/20 19:43 Dose: 75 mls/hr Documented by: Insulin Aspart (Novolog Vial Sliding Scale -) 1 vial SQ TIDAC [facility]; Protocol Last Admin: 01/29/20 12:42 Dose: Not Given Documented by: Insulin Aspart (Novolog Vial) 4 units SQ TIDAC [facility] Last Admin: 01/29/20 12:44 Dose: Not Given Documented by: Insulin Detemir (Levemir Vial) 10 units SQ DAILY@0700 [facility] Lactulose (Cephulac (Oral Use)) 20 gm PO TID [facility] Lorazepam (Ativan -) 1 mg PO TID PRN PRN Reason: WITHDRAWAL(CONT SUBST) Stop: 01/30/20 12:12 Last Admin: 01/28/20 22:36 Dose: 1 mg Documented by: Rifaximin (Xifaxan -) 200 mg PO TID [facility] Last Admin: 01/29/20 06:14 Dose: 200 mg Documented by: Sertraline HCl (Zoloft -) 50 mg PO DAILY [facility] Last Admin: 01/29/20 10:47 Dose: Not Given Documented by: - Objective Vital Signs: Vital Signs Temperature 98.7 F 01/29/20 10:00 Pulse Rate 59 L 01/29/20 10:00 Respiratory Rate 20 01/29/20 10:00 Blood Pressure 138/63 01/29/20 10:00 O2 Sat by Pulse Oximetry (%) 95 01/29/20 10:00 Labs: CBC, BMP 01/29/20 07:37 01/29/20 07:37 INR, PTT INR 0.91 (0.83-1.09) 01/26/20 14:05
[2020-01-29] MEDS: LACTATED RINGERS SOLUTION 1,000 ML/1,000 ML INFUS.BAG IV SCH (17:26)
[2020-01-29] MEDS: LACTULOSE 20 GM/30 ML UDC (FOR ORAL USE ONLY) PO SCH ×2 (17:26→21:26)
[2020-01-29] MEDS: LORazepam 1 MG TABLET PO PRN (21:30)
[2020-01-30] MEDS ORDERED: PT OWN MED DRAWER 7, Y5N ONE ×2 (05:55→12:56)
[2020-01-30] MEDS: RIFAXIMIN 200 MG TABLET PO SCH ×3 (06:13→21:03)
[2020-01-30] MEDS: INSULIN (LEVEMIR) 100 UNITS/ML UNITS SQ SCH (06:14)
[2020-01-30] MEDS: INSULIN SLIDING SCALE (NOVOLOG) 1 VIAL SQ SCH ×3 (06:14→16:45)
[2020-01-30] MEDS: LACTULOSE 20 GM/30 ML UDC (FOR ORAL USE ONLY) PO SCH ×3 (06:14→21:03)
[2020-01-30] MEDS: INSULIN (NOVOLOG) ASPART 100 UNITS/ML 10ML VIAL SQ SCH ×3 (06:31→16:46)
--- NOTE | 2020-01-30 07:21 | PN.GI ---
GI Progress Note Subjective: NO NEW COMPLAINTS - WANTS TO GO HOME - Objective Vital Signs: Vital Signs Temperature 98.2 F 01/29/20 22:00 Pulse Rate 73 01/29/20 22:00 Respiratory Rate 20 01/29/20 22:00 Blood Pressure 138/85 01/29/20 22:00 O2 Sat by Pulse Oximetry (%) 97 01/29/20 22:00 Constitutional: Well Nourished, No Distress Respiratory: Yes: WNL, Regular, CTA Bilaterally Gastrointestinal Inspection: Yes: WNL ...Auscultate: Yes: Normoactive Bowel Sounds Labs: CBC, BMP 01/29/20 07:37 01/29/20 07:37 INR, PTT INR 0.91 (0.83-1.09) 01/26/20 14:05 Problem List - Problems (1) Altered mental status Assessment/Plan: c/w rifaximin - dose 550 mg po bid c/w with standing dose of lactulose - for PSE etoh abstinence low sodium diet F/U MRCP Code(s): R41.82 - ALTERED MENTAL STATUS, UNSPECIFIED (2) Common bile duct dilatation Code(s): K83.8 - OTHER SPECIFIED DISEASES OF BILIARY TRACT (3) Hepatic encephalopathy Code(s): K72.90 - HEPATIC FAILURE, UNSPECIFIED WITHOUT COMA (4) Alcohol dependence Code(s): F10.20 - ALCOHOL DEPENDENCE, UNCOMPLICATED (5) Alcohol abuse with withdrawal, uncomplicated Code(s): F10.130 - ALCOHOL ABUSE WITH WITHDRAWAL, UNCOMPLICATED (6) Anemia Code(s): D64.9 - ANEMIA, UNSPECIFIED
[2020-01-30 09:04] LABS: BASO % 0.8 % (0-2.0); EOS % 3.3 % (0-4.5); HEMATOCRIT 32.5 % (32.4-45.2); HEMOGLOBIN 10.7 GM/dL (10.7-15.3); MCH 30.9 pg (25.7-33.7); MCHC 32.8 g/dl (32.0-36.0); MEAN CELL VOLUME 94.2 fl (80-96); MEAN PLT VOLUME 11.4 fl (7.5-11.1); MONO % 9.2 % (3.8-10.2); NEUT % 35.7 % (42.8-82.8); PLATELET COUNT 164 K/MM3 (134-434); RBC 3.45 M/mm3 (3.60-5.2); RDW 14.7 % (11.6-15.6); WHITE BLOOD COUNT 4.3 K/mm3 (4.0-10.0)
[2020-01-30 09:19] LABS: POTASSIUM 3.7 mmol/L (3.5-5.1)
[2020-01-30 09:26] LABS: ALBUMIN 2.2 g/dl (3.4-5.0); CALCIUM 8.4 mg/dL (8.5-10.1)
[2020-01-30 09:27] LABS: BLOOD UREA NITROGEN 12.6 mg/dL (7-18); MAGNESIUM 1.7 mg/dL (1.8-2.4)
[2020-01-30 09:29] LABS: CREATININE 0.8 mg/dL (0.55-1.3)
[2020-01-30 09:31] LABS: TOT PROT 5.9 g/dl (6.4-8.2)
[2020-01-30] MEDS: ARIPiprazole 10 MG TABLET PO SCH (10:14)
[2020-01-30] MEDS: SERTRALINE HCL 50 MG TABLET (FP) PO SCH (10:14)
[2020-01-30] MEDS: ENOXAPARIN NA (PORCINE) 40 MG/0.4 ML DISP.SYRIN SQ SCH (10:15)
--- NOTE | 2020-01-30 11:10 | PN ---
Progress Note, Physician - Current Medication List Current Medications: Active Medications Aripiprazole (Abilify) 10 mg PO DAILY [facility] Last Admin: 01/30/20 10:14 Dose: 10 mg Documented by: Enoxaparin Sodium (Lovenox -) 40 mg SQ DAILY [facility] Last Admin: 01/30/20 10:15 Dose: 40 mg Documented by: Lactated Ringer's (Lactated Ringers Solution) 1,000 ml in 1,000 mls @ 75 mls/hr IV ASDIR [facility] Last Admin: 01/29/20 17:26 Dose: 75 mls/hr Documented by: Insulin Aspart (Novolog Vial Sliding Scale -) 1 vial SQ TIDAC [facility]; Protocol Last Admin: 01/30/20 10:35 Dose: Not Given Documented by: Insulin Aspart (Novolog Vial) 4 units SQ TIDAC [facility] Last Admin: 01/30/20 10:35 Dose: 4 units Documented by: Insulin Detemir (Levemir Vial) 10 units SQ DAILY@0700 [facility] Last Admin: 01/30/20 06:14 Dose: 10 units Documented by: Lactulose (Cephulac (Oral Use)) 20 gm PO TID [facility] Last Admin: 01/30/20 06:14 Dose: 20 gm Documented by: Lorazepam (Ativan -) 1 mg PO TID PRN PRN Reason: WITHDRAWAL(CONT SUBST) Stop: 01/30/20 12:12 Last Admin: 01/29/20 21:30 Dose: 1 mg Documented by: Rifaximin (Xifaxan -) 200 mg PO TID [facility] Last Admin: 01/30/20 06:13 Dose: 200 mg Documented by: Sertraline HCl (Zoloft -) 50 mg PO DAILY [facility] Last Admin: 01/30/20 10:14 Dose: 50 mg Documented by: - Objective Vital Signs: Vital Signs Temperature 98.9 F 01/30/20 06:00 Pulse Rate 73 01/30/20 06:00 Respiratory Rate 20 01/30/20 06:00 Blood Pressure 148/80 01/30/20 06:00 O2 Sat by Pulse Oximetry (%) 100 01/30/20 06:00 Labs: CBC, BMP 01/30/20 07:10 01/30/20 07:10 INR, PTT INR 0.91 (0.83-1.09) 01/26/20 14:05
[2020-01-30] MEDS: LORazepam 1 MG TABLET PO PRN (12:00)
--- NOTE | 2020-01-30 12:38 | PN ---
Progress Note (short form) - Note Progress Note: SUBJECTIVE: Seen and examined at bedside. Alert and oriented x3. Significantly more awake. Anxious to go home. CT abdomen pelvis with IV contrast was nondiagnostic due to issue with the IV during contrast administration. Radiology recommends additional MRCP, this time with contrast OBJECTIVE Last Vital Signs Temp Pulse Resp BP Pulse Ox 98.9 F 73 20 148/80 100 01/30/20 06:00 01/30/20 06:00 01/30/20 06:00 01/30/20 06:00 01/30/20 06:00 PE: GEN: NAD HEENT: NC/AT PEARLL RESP: CTAB CARDS: RRR, -MRG ABD: soft, nt/nd +BS EXT: No swelling/Edema Neuro: Non-focal, A&OX3 Labs/Imaging: reviewed ASSESSMENT/PLAN 60-year-old female with history of polysubstance abuse, EtOH cirrhosis, bipolar disorder, HTN, HLD presents from [facility] with altered mental status secondary to hepatic encephalopathy. #Hepatic encephalopathy Lactulose was ordered as as needed and was not given after admission. Has had no bowel movements. Lactulose 3 times daily, goal 3-4 bowel movements daily Continue rifaximin Recheck ammonia level #Dilated common bile duct GI on board: Appreciate recommendation MRCP without contrast shows dilated common bile ducts up to 1.8 cm with intrahepatic biliary ductal dilatation coupled by large amounts of biliary air. Also concern for confluent area of nonvisualized intrahepatic bile ducts in the central aspect of the liver with peripheral dilatation of the bile ducts. Underlying lesion narrowing the ducts or intrahepatic biliary ductal strictures, benign or malignant cannot be excluded Pending CT abdomen pelvis with contrast for evaluation of strictures non- diagnostic -MRCP w/contrast pending Neutropenia: resolved #Diabetes melitis with hyperglycemia -titrate up insulin as MS improves -cont levemir, ISS -aspart 4U TIDAC #Positive syphilis -will check with [facility] if pt has been previously treated Visit type - Emergency Visit Emergency Visit: Yes ED Registration Date: 01/26/20 Care time: The patient presented to the Emergency Department on the above date and was hospitalized for further evaluation of their emergent condition. - New Patient This patient is new to me today: No - Critical Care Critical Care patient: No
[2020-01-30] MEDS: LACTATED RINGERS SOLUTION 1,000 ML/1,000 ML INFUS.BAG IV SCH ×2 (16:45→21:06)
--- NOTE | 2020-01-30 22:31 | RAPID ---
Physical Examination Vital Signs: Rapid response called overhead at 22:26 after unwitnessed fall. Nursing found patient down on the floor in the bathroom. States she was using the restroom when she got tangled in her IV line and fell. Denies hitting head, reports no LOC. She yelled for help after falling. Nursing presented to find her lying on the bathroom floor, awake, and alert. Patient was able to walk with assistance to bed. Vitals 156/100 HR 79 O2 SAT 97 on room air Neuro: A&Ox3, irritable Cardio: RRR, S1 S2 no murmurs Pulm: CTAB, no wheezes, rhonchi Skin: small 2 inch abrasion lateral to upper thoracic spine Plan - CT head without contrast given unwitnessed fall Constitutional: Yes: Anxious Cardiovascular: Yes: Regular Rate and Rhythm Respiratory: Yes: CTA Bilaterally Musculoskeletal: Yes: Other (thoracic spine with small abrasion approx 2 inches lateral to the spine) Neurological: Yes: Alert, Oriented, Cran Nerves II-XII Intact Labs: CBC, BMP 01/30/20 07:10 01/30/20 07:10
--- NOTE | 2020-01-30 23:57 | FALL ---
Fall Exam - Event Witnessed fall: No Location of Fall: Bathroom Fall from: Toilet - Pre-Fall Fall Risk: moderate Mental Status: Alert, Oriented Current Medications: Current Medications Generic Name Dose Route Start Last Admin Trade Name Julian PRN Reason Stop Dose Admin Aripiprazole 10 mg 01/27/20 10:00 01/30/20 10:14 Abilify PO 10 mg DAILY [facility] Administration Enoxaparin Sodium 40 mg 01/28/20 14:00 01/30/20 10:15 Lovenox - SQ 40 mg DAILY [facility] Administration Lactated Ringer's 1,000 ml in 1,000 mls @ 75 mls/hr 01/27/20 15:15 01/30/20 21:06 Lactated Ringers Solution IV 75 mls/hr ASDIR CARLO Administration Insulin Aspart 1 vial 01/27/20 16:30 01/30/20 16:45 Novolog Vial Sliding Scale - SQ Not Given TIDAC [facility] Protocol Insulin Aspart 4 units 01/29/20 11:00 01/30/20 16:46 Novolog Vial SQ 4 units TIDAC CARLO Administration Insulin Detemir 10 units 01/30/20 07:00 01/30/20 06:14 Levemir Vial SQ 10 units DAILY@0700 [facility] Administration Lactulose 20 gm 01/29/20 14:00 01/30/20 21:03 Cephulac (Oral Use) PO 20 gm TID [facility] Administration Rifaximin 200 mg 01/27/20 15:15 01/30/20 21:03 Xifaxan - PO 200 mg TID [facility]LO Administration Sertraline HCl 50 mg 01/27/20 10:00 01/30/20 10:14 Zoloft - PO 50 mg DAILY [facility] Administration - Post-Fall Patient Outcome: Abrasion/Bruise Exam Findings: small abrasion on left mid back, no bleeding Treatment: None Vital Signs: Vital Signs Temperature 98.6 F 01/30/20 18:00 Pulse Rate 97 H 01/30/20 18:00 Respiratory Rate 20 01/30/20 18:00 Blood Pressure 148/95 01/30/20 18:00 O2 Sat by Pulse Oximetry (%) 95 01/30/20 21:00 LOC Post-Fall: Awake, Alert, Oriented Identify factors for HIGH RISK for Head Injury: Pt on anticoagulant (on lovenox for DVT ppx)
[2020-01-31] MEDS: LACTULOSE 20 GM/30 ML UDC (FOR ORAL USE ONLY) PO SCH ×2 (06:25→14:56)
[2020-01-31] MEDS: INSULIN SLIDING SCALE (NOVOLOG) 1 VIAL SQ SCH ×2 (06:25→12:13)
[2020-01-31] MEDS: INSULIN (NOVOLOG) ASPART 100 UNITS/ML 10ML VIAL SQ SCH ×2 (06:25→12:14)
[2020-01-31] MEDS: RIFAXIMIN 200 MG TABLET PO SCH ×2 (06:25→14:56)
[2020-01-31] MEDS: INSULIN (LEVEMIR) 100 UNITS/ML UNITS SQ SCH (06:26)
[2020-01-31 08:26] LABS: BASO % 0.9 % (0-2.0); EOS % 5.5 % (0-4.5); HEMATOCRIT 32.7 % (32.4-45.2); HEMOGLOBIN 10.7 GM/dL (10.7-15.3); LYMPH % 52.2 % (8-40); MCH 30.2 pg (25.7-33.7); MCHC 32.8 g/dl (32.0-36.0); MEAN CELL VOLUME 92.1 fl (80-96); MEAN PLT VOLUME 11.2 fl (7.5-11.1); NEUT % 30.4 % (42.8-82.8); PLATELET COUNT 176 K/MM3 (134-434); RBC 3.55 M/mm3 (3.60-5.2); RDW 14.6 % (11.6-15.6); WHITE BLOOD COUNT 3.8 K/mm3 (4.0-10.0)
[2020-01-31 08:33] LABS: POTASSIUM 3.8 mmol/L (3.5-5.1)
[2020-01-31 08:37] LABS: ALBUMIN 2.2 g/dl (3.4-5.0); BLOOD UREA NITROGEN 13.3 mg/dL (7-18); CALCIUM 8.4 mg/dL (8.5-10.1); MAGNESIUM 1.8 mg/dL (1.8-2.4)
[2020-01-31 08:41] LABS: CREATININE 0.9 mg/dL (0.55-1.3)
[2020-01-31 08:42] LABS: BILIRUBIN,TOTAL 0.8 mg/dL (0.2-1)
[2020-01-31] MEDS: ARIPiprazole 10 MG TABLET PO SCH (09:55)
[2020-01-31] MEDS: SERTRALINE HCL 50 MG TABLET (FP) PO SCH (09:56)
[2020-01-31] MEDS: ENOXAPARIN NA (PORCINE) 40 MG/0.4 ML DISP.SYRIN SQ SCH (09:56)
[2020-01-31] MEDS ORDERED: INSULIN (LEVEMIR) 100 UNITS/ML UNITS SQ SCH (10:00)
--- NOTE | 2020-01-31 10:23 | PN ---
Progress Note (short form) - Note Progress Note: Awaiting MRI abdomen with contrast. MRCP is a non-contrast study Will need outpatient follow-up at hepatobiliary center. Patient states her ocular pathologist is Dr. Mariano Vila in [place]. He is affiliated with [facility]. She will likely need endoscopic Ultrasound for follow-up as well. Dr. Darrel Cameron, biliary endoscopist @ [facility]. Pending MRI results, follow-up prior to discharge should be arranged. Problem List - Problems (1) Common bile duct dilatation Code(s): K83.8 - OTHER SPECIFIED DISEASES OF BILIARY TRACT
--- NOTE | 2020-01-31 10:56 | PN ---
Progress Note, Physician History of Present Illness: stable no new issues - Current Medication List Current Medications: Active Medications Aripiprazole (Abilify) 10 mg PO DAILY [facility] Last Admin: 01/31/20 09:55 Dose: 10 mg Documented by: Enoxaparin Sodium (Lovenox -) 40 mg SQ DAILY [facility] Last Admin: 01/31/20 09:56 Dose: 40 mg Documented by: Lactated Ringer's (Lactated Ringers Solution) 1,000 ml in 1,000 mls @ 75 mls/hr IV ASDIR [facility] Last Admin: 01/30/20 21:06 Dose: 75 mls/hr Documented by: Insulin Aspart (Novolog Vial Sliding Scale -) 1 vial SQ TIDAC [facility]; Protocol Last Admin: 01/31/20 06:25 Dose: 8 unit Documented by: Insulin Aspart (Novolog Vial) 4 units SQ TIDAC [facility] Last Admin: 01/31/20 06:25 Dose: 4 units Documented by: Insulin Detemir (Levemir Vial) 10 units SQ BID@0700,2200 [facility] Last Admin: 01/31/20 09:55 Dose: 10 units Documented by: Lactulose (Cephulac (Oral Use)) 20 gm PO TID [facility] Last Admin: 01/31/20 06:25 Dose: 20 gm Documented by: Rifaximin (Xifaxan -) 200 mg PO TID [facility] Last Admin: 01/31/20 06:25 Dose: 200 mg Documented by: Sertraline HCl (Zoloft -) 50 mg PO DAILY [facility] Last Admin: 01/31/20 09:56 Dose: 50 mg Documented by: - Objective Vital Signs: Vital Signs Temperature 98.7 F 01/31/20 06:00 Pulse Rate 85 01/31/20 06:00 Respiratory Rate 18 01/31/20 06:00 Blood Pressure 151/94 01/31/20 06:00 O2 Sat by Pulse Oximetry (%) 97 01/31/20 06:00 Constitutional: Yes: No Distress, Calm Cardiovascular: Yes: S1, S2 Respiratory: Yes: Regular, CTA Bilaterally Gastrointestinal: Yes: Normal Bowel Sounds, Soft Musculoskeletal: Yes: WNL Extremities: Yes: WNL Neurological: Yes: Alert, Oriented Psychiatric: Yes: Alert, Oriented Labs: CBC, BMP 01/31/20 07:02 01/31/20 07:02 INR, PTT INR 0.91 (0.83-1.09) 01/26/20 14:05 Assessment/Plan 60-year-old female with history of polysubstance abuse, EtOH cirrhosis, bipolar disorder, HTN, HLD presents from [facility] with altered mental status secondary to hepatic encephalopathy. #Hepatic encephalopathy #Dilated common bile duct Neutropenia #Diabetes melitis with hyperglycemia plan continue current mgmt patient stable
--- NOTE | 2020-01-31 11:59 | PN ---
Teaching Attending Note Name of Resident: Calvin Arshad ATTENDING PHYSICIAN STATEMENT I saw and evaluated the patient. I reviewed the resident's note and discussed the case with the resident. I agree with the resident's findings and plan as documented. SUBJECTIVE: Seen and examined at bedside. Alert and oriented x3. Plan was to repeat MRCP w ith contrast as previously stated. Patient insisting on leaving today. Patient was explained that we were concerned about a possible tumor that may be cancerous among other possible problems and that she was still hyperglycemic and her hepatic encephalopathy may not be fully resolved given that she fell last night. Patient stated that she was not interested in further treatment and that she would follow-up with these problems in [place]. Was able to understand the risks and benefits. Patient opted to leave AMA OBJECTIVE Last Vital Signs Temp Pulse Resp BP Pulse Ox 98.7 F 85 18 151/94 97 01/31/20 06:00 01/31/20 06:00 01/31/20 06:00 01/31/20 06:00 01/31/20 06:00 PE: per resident note Labs/Imaging: reviewed ASSESSMENT/PLAN 60-year-old female with history of polysubstance abuse, EtOH cirrhosis, bipolar disorder, HTN, HLD presents from [facility] with altered mental status secondary to hepatic encephalopathy. Patient was treated for her hepatic encephalopathy with improvement in her symptoms. Stay was complicated by hyperglycemia, a positive syphilis test, and a dilated common bile duct on imaging. After discussion with ID the syphilis test given the 1:1 ratio of the RPR was believed to represent previous infection not active. Patient left AMA before the dilated common bile duct and diabetes and and hyperglycemia were able to be worked up/resolved.
--- NOTE | 2020-01-31 19:26 | DS ---
Physical Exam: SUBJECTIVE: Patient seen and examined at bedside in AM. OBJECTIVE: Vital Signs Period Temp Pulse Resp BP Sys/Parmar Pulse Ox Last 24 Hr 98.4 F-98.7 F 76-85 18-20 149-156/90-100 95-97 PHYSICAL EXAM GENERAL: AAOx3, NAD HEAD: Normal with no signs of trauma. EYES: EOMI Sclera Clear LUNGS: CTAB. No wheezing/rales/rhonchi HEART: RRR S1S2 ABDOMEN: . Soft, nondistended/nontender EXTREMITIES: no CCE NEUROLOGICAL: Cranial nerves II through XII grossly intact. LABS Laboratory Results - last 24 hr 01/30/20 01/31/20 01/31/20 21:01 03:01 06:22 WBC RBC Hgb Hct MCV MCH MCHC RDW Plt Count MPV Absolute Neuts (auto) Neutrophils % Lymphocytes % Monocytes % Eosinophils % Basophils % Nucleated RBC % Sodium Potassium Chloride Carbon Dioxide Anion Gap BUN Creatinine Est GFR (CKD-EPI)AfAm Est GFR (CKD-EPI)NonAf POC Glucometer 392 443 496 Random Glucose Calcium Magnesium Total Bilirubin AST ALT Alkaline Phosphatase Total Protein Albumin 01/31/20 01/31/20 01/31/20 07:02 07:02 12:12 WBC 3.8 L RBC 3.55 L Hgb 10.7 Hct 32.7 MCV 92.1 MCH 30.2 MCHC 32.8 RDW 14.6 Plt Count 176 MPV 11.2 H Absolute Neuts (auto) 1.2 L Neutrophils % 30.4 L Lymphocytes % 52.2 H Monocytes % 11.0 H Eosinophils % 5.5 H Basophils % 0.9 Nucleated RBC % 0 Sodium 141 Potassium 3.8 Chloride 107 Carbon Dioxide 27 Anion Gap 7 L BUN 13.3 Creatinine 0.9 Est GFR (CKD-EPI)AfAm 79.42 Est GFR (CKD-EPI)NonAf 68.53 POC Glucometer 172 Random Glucose 445 H* Calcium 8.4 L Magnesium 1.8 Total Bilirubin 0.8 AST 30 ALT 28 Alkaline Phosphatase 72 Total Protein 6.0 L Albumin 2.2 L HOSPITAL COURSE: Date of Admission:01/26/20 60 y/o F with Hx of Polysubstance abuse, ETOH cirrhosis (no longer actively drinking), Bipolar disorder, HTN, HLD, who presents from [facility] (at [facility] for alcohol detox) with altered mental status/witnessed fall/ hypoglycemia (40). CT with chronic microvascular changes no acute bleed or CVA noted. CT cervical spine with degenerative changes, no acute fx/sublux. Ammonia level was elevated at 103. UA without UTI. BG 182 in [facility] ED. Patient was commenced on Lactulose and Rifaxamin for hepatic encephalopathy. Patient's blood glucose levels were significantly elevated during her admission and she was placed on levemir, aspart, and ISS. RUQ U/S was performed which revealed dilation of CBD and pancreatic duct. MRCP was subsequently ordered which revealed " significantly dilated CBD 1.8 cm with intrahepatic billiary ductal dilation. Intrahepatic bile ducts in central aspect of liver with peripheral dilation of bile ducts. May be 2/2 lesion." Patient underwent CTAP IV contrast however technologist reported that there was a leak in IV (patient did not properly receive contrast). Abdomen MRI w/ Contrast was ordered for patient however patient stated that she wanted to leave hospital. Patient was explained that she may have underlying malignancy and that her health may worsen if she left A. Date of Discharge: 01/31/20 Minutes to complete discharge: 35 Discharge Summary Problems reviewed: Yes Reason For Visit: ALCOHOLIC CIRRHOSIS ALTERED MENTAL STATUS HEPATIC Condition: Guarded - Instructions Disposition: AGAINST MEDICAL ADVICE - Home Medications Comprehensive Discharge Medication List: Ambulatory Orders Aripiprazole 10 mg PO HS 01/25/20 Insulin Glargine,Hum.rec.anlog [Lantus Solostar PEN -] 25 units SQ HS 01/25/20 Insulin Lispro [Humalog] 6 unit SQ TIDCM 01/25/20 Lisinopril [Zestril] 2.5 mg PO DAILY 01/25/20 Mirtazapine [Remeron -] 15 mg PO HS 01/25/20 Sertraline HCl [Zoloft -] 50 mg PO DAILY 01/25/20 This patient is new to me today: No Emergency Visit: Yes ED Registration Date: 01/26/20 Care time: The patient presented to the Emergency Department on the above date and was hospitalized for further evaluation of their emergent condition. Critical Care patient: No - Discharge Referral Referred to [facility] Med P.C.: No ATTENDING PHYSICIAN STATEMENT I saw and evaluated the patient. I reviewed the resident's note and discussed the case with the resident. I agree with the resident's findings and plan as documented. SUBJECTIVE: OBJECTIVE: ASSESSMENT AND PLAN:
[2020-01-31 20:09] VITALS: TEMP 98.5
[2020-01-31 20:12] VITALS: BP 132/66; PULSE 87
== END 2020-01-31 15:59 | disposition left against medical advice (07) | DRG 279 ==
LOC: JER 12:45 → JERBED 17:27 → J5S 01-27 09:13
PROVIDERS: ATTEND Internal Medicine
PROC: HZ2ZZZZ Detoxification Services for Substance Abuse Treatment (ICD-10-PCS; principal; 2020-01-26)
DX: K72.90 Hepatic failure, unspecified without coma (principal); I10 Essential (primary) hypertension; E11.9 Type 2 diabetes mellitus without complications; E78.5 Hyperlipidemia, unspecified; F19.10 Other psychoactive substance abuse, uncomplicated; K70.30 Alcoholic cirrhosis of liver without ascites; F10.139 Alcohol abuse with withdrawal, unspecified; A53.9 Syphilis, unspecified; F31.89 Other bipolar disorder; K83.8 Other specified diseases of biliary tract; D70.9 Neutropenia, unspecified; D64.9 Anemia, unspecified; E11.65 Type 2 diabetes mellitus with hyperglycemia; Y92.230 Patient room in hospital as the place of occurrence of the external cause; W18.30XA Fall on same level, unspecified, initial encounter
CPT/HCPCS: 36415; 70450-TC; 71045-TC-FY; 72125-TC; 74177-TC; 74181-TC; 76705-TC; 80048; 80053; 80074; 80076; 80307; 81003; 82140; 82272; 82550; 82553; 82607; 82803; 82947; 82962; 83036; 83735; 84100; 84443; 84484; 85025; 85027; 85610; 85730; 86593; 86780; 86850; 86900; 86901; 87086; 93005; 93010; 99285-25; C9803; U0003